=== PATIENT | female | born 1950 | race Caucasian/White ===

== ENCOUNTER 2017-04-03 13:00 | Outpatient (RCR) | payer MEDICAID, SELFPAY ==
[2017-03-20 00:53] VITALS: BP 121/69; PULSE 108; RESP 18; TEMP 36.7
[2017-04-03 12:56] VITALS: BP 141/77; PULSE 98; RESP 16; TEMP 36.3
--- NOTE | 2017-04-03 20:03 | PCM.WC.PN ---
(1) Spinal stenosis Status: Chronic Current Visit: No Qualifiers: Spinal region: lumbosacral Qualified Code(s): M48.07 - Spinal stenosis, lumbosacral region Code(s): M48.00 - Spinal stenosis, site unspecified (2) Pressure sore of left ischium, stage 4 Status: Chronic Current Visit: Yes Code(s): L89.324 - Pressure ulcer of left buttock, stage 4 (3) Diabetes mellitus Status: Chronic Current Visit: Yes Qualifiers: Diabetes mellitus type: type 2 Diabetes mellitus complication status: with unspecified complications Diabetes mellitus halfway insulin use: unspecified terminal operations manager insulin use status Qualified Code(s): E11.8 - Type 2 diabetes mellitus with unspecified complications Code(s): E11.9 - Type 2 diabetes mellitus without complications (4) Pressure ulcer of right buttock, stage 3 Status: Resolved Current Visit: Yes Code(s): L89.313 - Pressure ulcer of right buttock, stage 3 (5) Pressure ulcer of left buttock, stage 3 Status: Resolved Current Visit: Yes Code(s): L89.323 - Pressure ulcer of left buttock, stage 3 Type of Wound Date of Service: 04/03/17 Chief Complaint: Left ischial pressure sore, Stage IV. Spinal cord stenosis History of Wound: Patient is a 64-year-old female who has a chronic pressure ulcer of her left ischium. In May, patient was hospitalized for a swelling and redness of her right leg. This was evaluated for cellulitis. She was seen in consultation by infectious disease and plastic surgery. The patient was taken to surgery for an operative debridement of her chronic left ischeal ulcer, with placementof a wound VAC since discharge, and placement at [facility] in [place] for PT and IV antibiotics. She was abruptly released from the [facility] after only a few wks, before end of therapy. 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 Unfortunately she had no wound vac for nearly 3 wks until late August, forapplicationandphysical therapy and since then has not had good healing with persistent deep tracking of wound down the posteriolateral femur. She has decided to go with the conservative care route since she feels that her quality of life is more important than healing out the wound but had continued to keep the wound vac. The wound vac was discontinued by her insurance for failure to show improvement in the size of her wound. She has been being seen monthly for conservative/palliative care of her pressure ulcer of her left ischium. She has home health visiting weekly to assess her wound and monthly visits to the wound center. She has been tolerating this treatment well. Progress of Wound: Patient continues with conservative care management of left ischium - aquacel dressing to wound daily. No concerns for infection in this pressure ulcer at this time. The ulcers/wounds on her buttocks b/l that were stage 3 have healed. She denies increased pain or increased drainage. She continues to sit in her wheelchair frequently for long periods of time. - Physical Exam Vital Signs Temp Pulse Resp BP 97.4 F L 98 16 141/77 H 04/03/17 12:56 04/03/17 12:56 04/03/17 12:56 04/03/17 12:56 General: Alert, Oriented x3, Cooperative, No apparent distress HEENT: Atraumatic, Normocephalic Oral: Moist Mucosa Abdomen: Obese Skin: Ulcer/ Wound Wound Measurements and Assessment - Nurse 1 - General Ulcer Measurement Start: 04/03/17 12:56 Freq: Status: Active Protocol: Activity Type Activity Date Activity User E-Sign Co-Sign Detail Recorded Client Recorded Date Recorded By Document 04/03/17 12:56 [facility] [id number] 04/03/17 13:11 [facility] 04/03/17 12:56 Wound Center Nurse 1 [Ulcer Assessment Protocol: WC.WD.LOC] #6 L Ischial stage III -Combined with other wound No -Current Size (cm) - Length 0.1 -Current Size (cm) - Width 0.1 -Current Size (cm) - Depth 1.1 -Total Square Cm 0.01 -Photo Taken No -Epithelialization None Present -Tunneling No -Undermining/Tunneling No -Exudate Amt Small (1-33%) -Exudate Type Serosanguineous -Structure Exposed N/A -Texture (Amirah-wound Skin Appearance) Scarring -Moisture (Amirah-wound Skin Appearance Maceration ) -Color (Amirah-wound Skin Appearance) Palor -Temperature (Amirah-wound Skin No Abnormality Appearance) (Pt Warm) -Tenderness on Palpation (Amirah-wound No Skin Appearance) -Ulcer Cleansing Rinsed/ Irrigated with Saline -Foul Odor after Cleansing No -Anesthetic Used 4% Lidocaine Solution #5- RT GLUTEAL FOLD stage III -Combined with other wound No -Current Size (cm) - Length 0 -Current Size (cm) - Width 0 -Current Size (cm) - Depth 0 -Total Square Cm 0 #2 L buttocks stage IV -Combined with other wound No -Current Size (cm) - Length 0 -Current Size (cm) - Width 0 -Current Size (cm) - Depth 0 -Total Square Cm 0 WC - Nurse 2 - General Ulcer CM Notes Start: 04/03/17 12:56 Freq: Status: Active Protocol: Activity Type Activity Date Activity User E-Sign Co-Sign Detail Recorded Client Recorded Date Recorded By Document 04/03/17 14:04 [id number] 04/03/17 14:06 04/03/17 14:04 Wound Center Nurse 2 [Procedure/Treatment] #6 L Ischial stage III -Time 14:04 -Correct Patient Yes -Correct Side, Site, Position Yes -Correct Procedure Yes -Procedure Performed Yes -Post Debridement Size (cm) - Length 0 -Post Debridement Size (cm) - Width 0 -Post Debridement Size (cm) - Depth 0 -Total Square Cm 0 -Wound/Ulcer Outcome Healed- Epithelialized -Ulcer Cleansing Rinsed/ Irrigated with Saline -Foul Odor after Cleansing No -Bioengineered Tissue No -Cetacaine Bergholz No -Topical Lidocaine (%) 5 -Bleeding Controlled with Pressure -Treatment Response Procedure Tolerated Well #5- RT GLUTEAL FOLD stage III -Time 14:05 -Correct Patient Yes -Correct Side, Site, Position Yes -Correct Procedure Yes -Procedure Performed Yes -Post Debridement Size (cm) - Length 0 -Post Debridement Size (cm) - Width 0 -Post Debridement Size (cm) - Depth 0 -Total Square Cm 0 -Wound/Ulcer Outcome Healed- Epithelialized -Ulcer Cleansing Rinsed/ Irrigated with Saline -Foul Odor after Cleansing No -Bioengineered Tissue No -Cetacaine Bergholz No -Topical Lidocaine (%) 5 -Bleeding Controlled with Pressure -Treatment Response Procedure Tolerated Well #2 L buttocks stage IV -Time 14:05 -Correct Patient Yes -Correct Side, Site, Position Yes -Correct Procedure Yes -Procedure Performed Yes -Type of Procedure Debridement -Clinical Debridement Subcutaneous -Post Debridement Size (cm) - Length 0.6 -Post Debridement Size (cm) - Width 0.6 -Post Debridement Size (cm) - Depth 0.3 -Total Square Cm 0.36 -Wound/Ulcer Outcome Not Healed -Ulcer Cleansing Rinsed/ Irrigated with Saline -Foul Odor after Cleansing No -Bioengineered Tissue No -Cetacaine Bergholz No -Topical Lidocaine (%) 5 -Bleeding Controlled with Pressure -Treatment Response Procedure Tolerated Well [See Physician Procedure note for Specifics] Pain Scale: 0-10 Numeric [Pain] -Is Patient Pain Free? Yes Psych/Mental Status: Normal Affect, Appropriate Debridement Note Post-Debridement Measurements/Treatment WC - Nurse 2 - General Ulcer CM Notes Start: 04/03/17 12:56 Freq: Status: Active Protocol: Activity Type Activity Date Activity User E-Sign Co-Sign Detail Recorded Client Recorded Date Recorded By Document 04/03/17 14:04 [id number] 04/03/17 14:06 04/03/17 14:04 Wound Center Nurse 2 #6 L Ischial stage III -Time 14:04 -Correct Patient Yes -Correct Side, Site, Position Yes -Correct Procedure Yes -Procedure Performed Yes -Post Debridement Size (cm) - Length 0 -Post Debridement Size (cm) - Width 0 -Post Debridement Size (cm) - Depth 0 -Total Square Cm 0 -Wound/Ulcer Outcome Healed- Epithelialized -Ulcer Cleansing Rinsed/ Irrigated with Saline -Foul Odor after Cleansing No -Bioengineered Tissue No -Cetacaine Bergholz No -Topical Lidocaine (%) 5 -Bleeding Controlled with Pressure -Treatment Response Procedure Tolerated Well #5- RT GLUTEAL FOLD stage III -Time 14:05 -Correct Patient Yes -Correct Side, Site, Position Yes -Correct Procedure Yes -Procedure Performed Yes -Post Debridement Size (cm) - Length 0 -Post Debridement Size (cm) - Width 0 -Post Debridement Size (cm) - Depth 0 -Total Square Cm 0 -Wound/Ulcer Outcome Healed- Epithelialized -Ulcer Cleansing Rinsed/ Irrigated with Saline -Foul Odor after Cleansing No -Bioengineered Tissue No -Cetacaine Bergholz No -Topical Lidocaine (%) 5 -Bleeding Controlled with Pressure -Treatment Response Procedure Tolerated Well #2 L buttocks stage IV -Time 14:05 -Correct Patient Yes -Correct Side, Site, Position Yes -Correct Procedure Yes -Procedure Performed Yes -Type of Procedure Debridement -Clinical Debridement Subcutaneous -Post Debridement Size (cm) - Length 0.6 -Post Debridement Size (cm) - Width 0.6 -Post Debridement Size (cm) - Depth 0.3 -Total Square Cm 0.36 -Wound/Ulcer Outcome Not Healed -Ulcer Cleansing Rinsed/ Irrigated with Saline -Foul Odor after Cleansing No -Bioengineered Tissue No -Cetacaine Bergholz No -Topical Lidocaine (%) 5 -Bleeding Controlled with Pressure -Treatment Response Procedure Tolerated Well Pain Scale: 0-10 Numeric Is Patient Pain Free? Yes Wound debrided: left ischial stage III Laterality: Left No debridement was completed today - Additional Wound Wound debrided: right gluteal fold stage III Operative Diagnosis: No debridement was completed today - wound is healed - Additional Wound Wound debrided: left buttock stage IV Laterality: Left Wound Grade/Stage: Stage IV Type of Debridement: Excisional debridement Anesthesia Used: 4% Lidocaine Solution Depth: Down to and including healthy tissue, in the subcutaneous layer Percentage of wound debrided: 100 Instrument Used: 5mm curette Tissue Removed: yellow slough, devitalized tissue Severity: Fat Layer Exposed Amount of bleeding with debridement: Mild Bleeding Controlled with: Compression and gauze Patient tolerated procedure: Patient tolerated procedure well Assessment/Plan Active Problems Pressure sore of left ischium, stage 4 (Chronic) Diabetes mellitus (Chronic) Assessment: Pressure ulcer of the left buttock -non healing, despite several deep OR debridements, has not been willing to stay in bed and keep off of wound,and refuses to consider having a muscle flap since it would entail 6 wks in a bed in a F which she thinks would cause more deconditioning and require another few months to restrore her ambulation. wound is remaining free of infection and is not increasing in size but is stable. Right gluteal fold pressure ulcer stage III - healed. left Buttock/ischial ulcer stage III - healed Plan: Continue with aquacel daily wound packing to left buttocks and return to conservative /palliative treatment care with once monthly visits. Continue with conservative treatment of left buttock. Encouraged to increase protein intake to aid in wound healing and maintain good control of diabetes. Discussed offloading importance in wound healing. F/U in 4 weeks. Nursing notes reviewed.
--- NOTE | 2017-04-03 20:10 | PN.PCM_ITS ---
(1) Spinal stenosis Status: Chronic Current Visit: No Qualifiers: Spinal region: lumbosacral Qualified Code(s): M48.07 - Spinal stenosis, lumbosacral region Code(s): M48.00 - Spinal stenosis, site unspecified (2) Pressure sore of left ischium, stage 4 Status: Chronic Current Visit: Yes Code(s): L89.324 - Pressure ulcer of left buttock, stage 4 (3) Diabetes mellitus Status: Chronic Current Visit: Yes Qualifiers: Diabetes mellitus type: type 2 Diabetes mellitus complication status: with unspecified complications Diabetes mellitus penitentiary insulin use: unspecified medical doctor insulin use status Qualified Code(s): E11.8 - Type 2 diabetes mellitus with unspecified complications Code(s): E11.9 - Type 2 diabetes mellitus without complications (4) Pressure ulcer of right buttock, stage 3 Status: Resolved Current Visit: Yes Code(s): L89.313 - Pressure ulcer of right buttock, stage 3 (5) Pressure ulcer of left buttock, stage 3 Status: Resolved Current Visit: Yes Code(s): L89.323 - Pressure ulcer of left buttock, stage 3 Type of Wound Date of Service: 04/03/17 Chief Complaint: Left ischial pressure sore, Stage IV. Spinal cord stenosis History of Wound: Patient is a 64-year-old female who has a chronic pressure ulcer of her left ischium. In May, patient was hospitalized for a swelling and redness of her right leg. This was evaluated for cellulitis. She was seen in consultation by infectious disease and plastic surgery. The patient was taken to surgery for an operative debridement of her chronic left ischeal ulcer, with placementof a wound VAC since discharge, and placement at [facility] in [place] for PT and IV antibiotics. She was abruptly released from the [facility] after only a few wks, before end of therapy. 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 Unfortunately she had no wound vac for nearly 3 wks until late August , forapplicationandphysical therapy and since then has not had good healing with persistent deep tracking of wound down the posteriolateral femur. She has decided to go with the conservative care route since she feels that her quality of life is more important than healing out the wound but had continued to keep the wound vac. The wound vac was discontinued by her insurance for failure to show improvement in the size of her wound. She has been being seen monthly for conservative/palliative care of her pressure ulcer of her left ischium. She has home health visiting weekly to assess her wound and monthly visits to the wound center. She has been tolerating this treatment well. Progress of Wound: Patient continues with conservative care management of left ischium - aquacel dressing to wound daily. No concerns for infection in this pressure ulcer at this time. The ulcers/wounds on her buttocks b/l that were stage 3 have healed. She denies increased pain or increased drainage. She continues to sit in her wheelchair frequently for long periods of time. - Physical Exam Vital Signs Temp Pulse Resp BP 97.4 F L 98 16 141/77 H 04/03/17 12:56 04/03/17 12:56 04/03/17 12:56 04/03/17 12:56 General: Alert, Oriented x3, Cooperative, No apparent distress HEENT: Atraumatic, Normocephalic Oral: Moist Mucosa Abdomen: Obese Skin: Ulcer/ Wound Wound Measurements and Assessment - Nurse 1 - General Ulcer Measurement Start: 04/03/17 12:56 Freq: Status: Active Protocol: Activity Type Activity Date Activity User E-Sign Co-Sign Detail Recorded Client Recorded Date Recorded By Document 04/03/17 12:56 [facility] [id number] 04/03/17 13:11 [facility] 04/03/17 12:56 Wound Center Nurse 1 [Ulcer Assessment Protocol: WC.WD.LOC] #6 L Ischial stage III -Combined with other wound No -Current Size (cm) - Length 0.1 -Current Size (cm) - Width 0.1 -Current Size (cm) - Depth 1.1 -Total Square Cm 0.01 -Photo Taken No -Epithelialization None Present -Tunneling No -Undermining/Tunneling No -Exudate Amt Small (1-33%) -Exudate Type Serosanguineous -Structure Exposed N/A -Texture (Amirah-wound Skin Appearance) Scarring -Moisture (Amirah-wound Skin Appearance Maceration ) -Color (Amirah-wound Skin Appearance) Palor -Temperature (Amirah-wound Skin No Abnormality Appearance) (Pt Warm) -Tenderness on Palpation (Amirah-wound No Skin Appearance) -Ulcer Cleansing Rinsed/ Irrigated with Saline -Foul Odor after Cleansing No -Anesthetic Used 4% Lidocaine Solution #5- RT GLUTEAL FOLD stage III -Combined with other wound No -Current Size (cm) - Length 0 -Current Size (cm) - Width 0 -Current Size (cm) - Depth 0 -Total Square Cm 0 #2 L buttocks stage IV -Combined with other wound No -Current Size (cm) - Length 0 -Current Size (cm) - Width 0 -Current Size (cm) - Depth 0 -Total Square Cm 0 WC - Nurse 2 - General Ulcer CM Notes Start: 04/03/17 12:56 Freq: Status: Active Protocol: Activity Type Activity Date Activity User E-Sign Co-Sign Detail Recorded Client Recorded Date Recorded By Document 04/03/17 14:04 [id number] 04/03/17 14:06 04/03/17 14:04 Wound Center Nurse 2 [Procedure/Treatment] #6 L Ischial stage III -Time 14:04 -Correct Patient Yes -Correct Side, Site, Position Yes -Correct Procedure Yes -Procedure Performed Yes -Post Debridement Size (cm) - Length 0 -Post Debridement Size (cm) - Width 0 -Post Debridement Size (cm) - Depth 0 -Total Square Cm 0 -Wound/Ulcer Outcome Healed- Epithelialized -Ulcer Cleansing Rinsed/ Irrigated with Saline -Foul Odor after Cleansing No -Bioengineered Tissue No -Cetacaine Haswell No -Topical Lidocaine (%) 5 -Bleeding Controlled with Pressure -Treatment Response Procedure Tolerated Well #5- RT GLUTEAL FOLD stage III -Time 14:05 -Correct Patient Yes -Correct Side, Site, Position Yes -Correct Procedure Yes -Procedure Performed Yes -Post Debridement Size (cm) - Length 0 -Post Debridement Size (cm) - Width 0 -Post Debridement Size (cm) - Depth 0 -Total Square Cm 0 -Wound/Ulcer Outcome Healed- Epithelialized -Ulcer Cleansing Rinsed/ Irrigated with Saline -Foul Odor after Cleansing No -Bioengineered Tissue No -Cetacaine Haswell No -Topical Lidocaine (%) 5 -Bleeding Controlled with Pressure -Treatment Response Procedure Tolerated Well #2 L buttocks stage IV -Time 14:05 -Correct Patient Yes -Correct Side, Site, Position Yes -Correct Procedure Yes -Procedure Performed Yes -Type of Procedure Debridement -Clinical Debridement Subcutaneous -Post Debridement Size (cm) - Length 0.6 -Post Debridement Size (cm) - Width 0.6 -Post Debridement Size (cm) - Depth 0.3 -Total Square Cm 0.36 -Wound/Ulcer Outcome Not Healed -Ulcer Cleansing Rinsed/ Irrigated with Saline -Foul Odor after Cleansing No -Bioengineered Tissue No -Cetacaine Haswell No -Topical Lidocaine (%) 5 -Bleeding Controlled with Pressure -Treatment Response Procedure Tolerated Well [See Physician Procedure note for Specifics] Pain Scale: 0-10 Numeric [Pain] -Is Patient Pain Free? Yes Psych/Mental Status: Normal Affect, Appropriate Debridement Note Post-Debridement Measurements/Treatment WC - Nurse 2 - General Ulcer CM Notes Start: 04/03/17 12:56 Freq: Status: Active Protocol: Activity Type Activity Date Activity User E-Sign Co-Sign Detail Recorded Client Recorded Date Recorded By Document 04/03/17 14:04 [id number] 04/03/17 14:06 04/03/17 14:04 Wound Center Nurse 2 #6 L Ischial stage III -Time 14:04 -Correct Patient Yes -Correct Side, Site, Position Yes -Correct Procedure Yes -Procedure Performed Yes -Post Debridement Size (cm) - Length 0 -Post Debridement Size (cm) - Width 0 -Post Debridement Size (cm) - Depth 0 -Total Square Cm 0 -Wound/Ulcer Outcome Healed- Epithelialized -Ulcer Cleansing Rinsed/ Irrigated with Saline -Foul Odor after Cleansing No -Bioengineered Tissue No -Cetacaine Haswell No -Topical Lidocaine (%) 5 -Bleeding Controlled with Pressure -Treatment Response Procedure Tolerated Well #5- RT GLUTEAL FOLD stage III -Time 14:05 -Correct Patient Yes -Correct Side, Site, Position Yes -Correct Procedure Yes -Procedure Performed Yes -Post Debridement Size (cm) - Length 0 -Post Debridement Size (cm) - Width 0 -Post Debridement Size (cm) - Depth 0 -Total Square Cm 0 -Wound/Ulcer Outcome Healed- Epithelialized -Ulcer Cleansing Rinsed/ Irrigated with Saline -Foul Odor after Cleansing No -Bioengineered Tissue No -Cetacaine Haswell No -Topical Lidocaine (%) 5 -Bleeding Controlled with Pressure -Treatment Response Procedure Tolerated Well #2 L buttocks stage IV -Time 14:05 -Correct Patient Yes -Correct Side, Site, Position Yes -Correct Procedure Yes -Procedure Performed Yes -Type of Procedure Debridement -Clinical Debridement Subcutaneous -Post Debridement Size (cm) - Length 0.6 -Post Debridement Size (cm) - Width 0.6 -Post Debridement Size (cm) - Depth 0.3 -Total Square Cm 0.36 -Wound/Ulcer Outcome Not Healed -Ulcer Cleansing Rinsed/ Irrigated with Saline -Foul Odor after Cleansing No -Bioengineered Tissue No -Cetacaine Haswell No -Topical Lidocaine (%) 5 -Bleeding Controlled with Pressure -Treatment Response Procedure Tolerated Well Pain Scale: 0-10 Numeric Is Patient Pain Free? Yes Wound debrided: left ischial stage III Laterality: Left No debridement was completed today - Additional Wound Wound debrided: right gluteal fold stage III Operative Diagnosis: No debridement was completed today - wound is healed - Additional Wound Wound debrided: left buttock stage IV Laterality: Left Wound Grade/Stage: Stage IV Type of Debridement: Excisional debridement Anesthesia Used: 4% Lidocaine Solution Depth: Down to and including healthy tissue, in the subcutaneous layer Percentage of wound debrided: 100 Instrument Used: 5mm curette Tissue Removed: yellow slough, devitalized tissue Severity: Fat Layer Exposed Amount of bleeding with debridement: Mild Bleeding Controlled with: Compression and gauze Patient tolerated procedure: Patient tolerated procedure well Assessment/Plan Active Problems Pressure sore of left ischium, stage 4 (Chronic) Diabetes mellitus (Chronic) Assessment: Pressure ulcer of the left buttock -non healing, despite several deep OR debridements, has not been willing to stay in bed and keep off of wound, and refuses to consider having a muscle flap since it would entail 6 wks in a bed in a F which she thinks would cause more deconditioning and require another few months to restrore her ambulation. wound is remaining free of infection and is not increasing in size but is stable. Right gluteal fold pressure ulcer stage III - healed. left Buttock/ischial ulcer stage III - healed Plan: Continue with aquacel daily wound packing to left buttocks and return to conservative /palliative treatment care with once monthly visits. Continue with conservative treatment of left buttock. Encouraged to increase protein intake to aid in wound healing and maintain good control of diabetes. Discussed offloading importance in wound healing. F/U in 4 weeks. Nursing notes reviewed.
== END 2017-04-19 23:59 ==
LOC: WC 13:00
PROVIDERS: Family Provider Family Medicine; PCP Family Medicine; Visit Provider Family Medicine
DX: E11.622 Type 2 diabetes mellitus with other skin ulcer (principal); M48.07 Spinal stenosis, lumbosacral region; L89.224 Pressure ulcer of left hip, stage 4
CPT/HCPCS: 11042

== ENCOUNTER 2017-05-15 13:45 | Outpatient (RCR) | payer MEDICAID, SELFPAY ==
[2017-04-20 00:42] VITALS: BP 141/77; PULSE 98; RESP 16; TEMP 36.3
[2017-05-08 13:35] VITALS: RESP 18; TEMP 36.6
--- NOTE | 2017-05-08 18:01 | PCM.WC.HP ---
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 Spinal cord stenosis History of Wound: Patient is a 64-year-old female who has a chronic pressure ulcer of her left ischium. Patient was initially hospitalized for a swelling and redness of her right leg approximately 2014. This was evaluated for cellulitis. She was seen in consultation by infectious disease and plastic surgery. The patient was taken to surgery for an operative debridement of her chronic left ischial ulcer, underwent wound vac treatment and IV antibiotics. She was abruptly released from the F after only a few wks, before end of therapy. She had finished her IV antibiotics for Grp A strep osteomyelitis at home and continued with PT at home as well. She has decided to go with the conservative care route since she feels that her quality of life is more important than healing out the wound but had continued to keep the wound vac. The wound vac was discontinued by her insurance for failure to show improvement in the size of her wound. She has been being seen monthly for conservative/palliative care of her pressure ulcer of her left ischium. She has home health visiting weekly to assess her wound and monthly visits to the wound center. She has been tolerating this treatment well. She has recently started getting pressure ulcers of her right buttocks. January 2017, she underwent treatment after developing pressure ulcers which occurred from urinary incontinence issues associated with a chronic UTI and leakage of her catheter. She developed another pressure ulcer of her right buttock on or around April 20, 2017 and presents for treatment of this area as well as continued treatment of her left ischial pressure ulcer. She has been using Rain to the right buttock and continues to use Aquacel to the left ischium/buttock. Denies fever, chills or increased pain. 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 significance to followup Pressure sore of left ischium, stage 4 (Chronic) chronic osteomyelitis left ischial area (Chronic) Arthritis (Chronic) Back pain (Chronic) Malnutrition (Chronic) Diabetic neuropathy, type II diabetes mellitus (Chronic) Diabetes mellitus (Chronic) Surgical History: - - Surgery for rectal prolapse with anterior resection and rectopexy at [facility] in 2008 and back surgery 1979. Colostomy was November 2012. She had blood transfusions in October 2012 at [facility] for blood loss anemia. excision left ischial pressure sore with partial ostectomy for osteomyelitis and excision right ischial pressure sore and excision left lateral ankle pressure sore with partial ostectomy for osteomyelitis in 08/01. Allergies/Adverse Reactions: Allergies No Known Allergies Allergy (Verified 08/08/14 15:45) Home Medications: Ambulatory Orders Medication Instructions Recorded Allopurinol [Zyloprim] 100 mg PO DAILYCM 07/05/14 Cefadroxil [Duracef] 500 mg PO BID 07/05/14 Ferrous Gluconate 325 mg PO BIDCM 07/05/14 Latanoprost 0.005% [Xalatan 1 drop EACH EYE QHS 07/05/14 Opthalmic] Losartan Potassium [Cozaar] 25 mg PO DAILY 07/05/14 Magnesium Oxide [Mag-Ox 400] 400 mg PO TID 07/05/14 Metformin HCl [Glucophage] 500 mg PO BIDCM 07/05/14 Multivitamins,Therapeutic 1 tablet PO DAILY 07/05/14 [Multivitamin] Nut.tx.gluc Intol,Lf,Soy/Fiber 237 ml PO BID 07/05/14 [Boost Glucose Control Liquid] Simvastatin [Zocor] 10 mg PO QHS 07/05/14 Timolol Maleate [Timoptic-XE 0.5%] 1 drop EACH EYE DAILY 07/05/14 Acetaminophen [Tylenol Tablet] 650 mg PO Q6H PRN PRN #0 tablet 07/11/14 Diazepam [Valium] 4 mg PO TID PRN PRN #60 tablet 07/11/14 Oxycodone [Oxyir] 5 - 10 mg PO Q4H PRN PRN #60 tablet 07/11/14 Ceftriaxone [Rocephin] 1 gm IV Q24 #35 bag 07/12/14 Furosemide [Lasix] 40 mg PO DAILY 06/29/15 Potassium Chloride [K-Dur] 40 meq PO DAILY 06/29/15 - Family History Maternal Diabetes, Hypertension Paternal Diabetes, Hypertension Lives: Alone Smoking Status: Never smoker Tobacco Use: Non-smoker Alcohol: None Drugs: None Review of Systems Constitutional: Denies: Chills, Fever, Weight Change Eyes: Denies: Pain, Vision Change HEENT: Denies: Difficulty Hearing, Difficulty Swallowing, Sinus Congestion Cardiovascular: Denies: Chest Pain, Palpitations Respiratory: Denies: Cough, Shortness of Breath Gastrointestinal: Denies: Diarrhea, Nausea, Vomiting Genitourinary: Denies: Dysuria, Hematuria Musculoskeletal: Reports: Back Pain, Leg Pain Skin: Reports: Wounds Neurological: Reports: Numbness, Tingling, - - weakness, unable to walk Endocrine: Denies: Heat/ Cold Intolerance, Polydipsia, Polyuria Hematologic/ Lymphatic: Denies: Easy Bruising, Easy Bleeding - Physical Exam Vital Signs Temp Pulse Resp BP 98 F 98 18 141/77 H 05/08/17 13:35 04/20/17 00:42 05/08/17 13:35 04/20/17 00:42 General: Alert, Oriented x3, Cooperative, No apparent distress HEENT: Atraumatic, Normocephalic Oral: Moist Mucosa Lungs: Clear to auscultation Cardiovascular: Regular rate Abdomen: Obese Extremities: No edema Skin: Ulcer/ Wound Wound Measurements and Assessment WC - Nurse 1 - General Ulcer Measurement Start: 05/08/17 13:33 Freq: Status: Active Protocol: Activity Type Activity Date Activity User E-Sign Co-Sign Detail Recorded Client Recorded Date Recorded By Document 05/08/17 13:35 [facility] [id number] 05/08/17 13:51 [facility] 05/08/17 13:35 Wound Center Nurse 1 [Ulcer Assessment Protocol: WC.WD.LOC] #7- Stage III pressure ulcer RT GLUTEAL FOLD -Combined with other wound No -Current Size (cm) - Length 4 -Current Size (cm) - Width 3 -Current Size (cm) - Depth 0.1 -Total Square Cm 12 -Date of Last Picture (Recall this 05/08/17 field) -Photo Taken Yes -Epithelialization None Present -Tunneling No -Undermining/Tunneling No -Exudate Amt Medium (34-66%) -Exudate Type Serosanguineous -Wound Margin Distinct, Outline Attached -Granulation Amt Small (1-33%) -Granulation Quality Red -Slough/Fibrin Yes -Necrosis Amt Large (67-100%) -Necrotic Tissue Type Adherent Slough -Structure Exposed N/A -Texture (Amirah-wound Skin Appearance) Scarring -Moisture (Amirah-wound Skin Appearance Assessed ) -Color (Amirah-wound Skin Appearance) Erythema -Temperature (Amirah-wound Skin No Abnormality Appearance) (Pt Warm) -Tenderness on Palpation (Amirah-wound No Skin Appearance) -Ulcer Cleansing Rinsed/ Irrigated with Saline -Foul Odor after Cleansing No -Anesthetic Used 4% Lidocaine Solution #2 L buttocks stage IV -Combined with other wound No -Current Size (cm) - Length 0.6 -Current Size (cm) - Width 0.1 -Current Size (cm) - Depth 1.1 -Total Square Cm 0.06 -Epithelialization None Present -Tunneling No -Undermining/Tunneling No -Exudate Amt Small (1-33%) -Exudate Type Serosanguineous -Wound Margin Thickened -Moisture (Amirah-wound Skin Appearance Maceration ) -Color (Amirah-wound Skin Appearance) Palor -Temperature (Amirah-wound Skin No Abnormality Appearance) (Pt Warm) -Tenderness on Palpation (Amirah-wound No Skin Appearance) -Ulcer Cleansing Rinsed/ Irrigated with Saline -Foul Odor after Cleansing No -Anesthetic Used 4% Lidocaine Solution - Nurse 2 - General Ulcer CM Notes Start: 05/08/17 13:33 Freq: Status: Active Protocol: Activity Type Activity Date Activity User E-Sign Co-Sign Detail Recorded Client Recorded Date Recorded By Document 05/08/17 14:34 [id number] 05/08/17 14:42 TM 05/08/17 14:34 Wound Center Nurse 2 [Procedure/Treatment] #7- Stage III pressure ulcer RT GLUTEAL FOLD -Time 14:34 -Correct Patient Yes -Correct Side, Site, Position Yes -Correct Procedure Yes -Procedure Performed Yes -Type of Procedure Debridement -Clinical Debridement Subcutaneous -Post Debridement Size (cm) - Length 4.3 -Post Debridement Size (cm) - Width 3.0 -Post Debridement Size (cm) - Depth 0.1 -Total Square Cm 12.90 -Wound/Ulcer Outcome Not Healed -Ulcer Cleansing Rinsed/ Irrigated with Saline -Foul Odor after Cleansing No -Bioengineered Tissue No -Cetacaine [place] No -Topical Lidocaine (%) 5 -Bleeding Controlled with Pressure -Treatment Response Procedure Tolerated Well #2 L buttocks stage IV -Time 14:35 -Correct Patient Yes -Correct Side, Site, Position Yes -Correct Procedure Yes -Procedure Performed Yes -Type of Procedure Debridement -Clinical Debridement Subcutaneous -Post Debridement Size (cm) - Length 1.0 -Post Debridement Size (cm) - Width 0.3 -Post Debridement Size (cm) - Depth 0.5 -Total Square Cm 0.30 -Wound/Ulcer Outcome Not Healed -Ulcer Cleansing Rinsed/ Irrigated with Saline -Foul Odor after Cleansing No -Bioengineered Tissue No -Cetacaine [place] No -Topical Lidocaine (%) 5 -Bleeding Controlled with Pressure -Treatment Response Procedure Tolerated Well [See Physician Procedure note for Specifics] Pain Scale: 0-10 Numeric [Pain] -Is Patient Pain Free? Yes Neurological: Unsteady Gait Psych/Mental Status: Normal Affect, Appropriate Debridement Note Post-Debridement Measurements/Treatment WC - Nurse 2 - General Ulcer CM Notes Start: 05/08/17 13:33 Freq: Status: Active Protocol: Activity Type Activity Date Activity User E-Sign Co-Sign Detail Recorded Client Recorded Date Recorded By Document 05/08/17 14:34 [id number] 05/08/17 14:42 05/08/17 14:34 Wound Center Nurse 2 #7- Stage III pressure ulcer RT GLUTEAL FOLD -Time 14:34 -Correct Patient Yes -Correct Side, Site, Position Yes -Correct Procedure Yes -Procedure Performed Yes -Type of Procedure Debridement -Clinical Debridement Subcutaneous -Post Debridement Size (cm) - Length 4.3 -Post Debridement Size (cm) - Width 3.0 -Post Debridement Size (cm) - Depth 0.1 -Total Square Cm 12.90 -Wound/Ulcer Outcome Not Healed -Ulcer Cleansing Rinsed/ Irrigated with Saline -Foul Odor after Cleansing No -Bioengineered Tissue No -Cetacaine [place] No -Topical Lidocaine (%) 5 -Bleeding Controlled with Pressure -Treatment Response Procedure Tolerated Well #2 L buttocks stage IV -Time 14:35 -Correct Patient Yes -Correct Side, Site, Position Yes -Correct Procedure Yes -Procedure Performed Yes -Type of Procedure Debridement -Clinical Debridement Subcutaneous -Post Debridement Size (cm) - Length 1.0 -Post Debridement Size (cm) - Width 0.3 -Post Debridement Size (cm) - Depth 0.5 -Total Square Cm 0.30 -Wound/Ulcer Outcome Not Healed -Ulcer Cleansing Rinsed/ Irrigated with Saline -Foul Odor after Cleansing No -Bioengineered Tissue No -Cetacaine [place] No -Topical Lidocaine (%) 5 -Bleeding Controlled with Pressure -Treatment Response Procedure Tolerated Well Pain Scale: 0-10 Numeric Is Patient Pain Free? Yes Wound debrided: stage III ulcer right gluteal fold Laterality: Right Wound Grade/Stage: Stage III Type of Debridement: Excisional debridement Anesthesia Used: 5% Lidocaine Gel Depth: Down to and including healthy tissue, in the subcutaneous layer Percentage of wound debrided: 100 Instrument Used: 5mm curette, #15 blade Tissue Removed: yellow slough, devitalized tissue Severity: Fat Layer Exposed Amount of bleeding with debridement: Mild Bleeding Controlled with: Compression and gauze Patient tolerated procedure well - Additional Wound Wound debrided: left buttocks stage IV Laterality: Left Wound Grade/Stage: Stage IV Type of Debridement: Excisional debridement Anesthesia Used: 4% Lidocaine Solution Depth: Down to and including healthy tissue, in the subcutaneous layer Percentage of wound debrided: 100 Instrument Used: 3mm curette Tissue Removed: yellow slough, devitalized tissue Severity: Fat Layer Exposed Amount of bleeding with debridement: Mild Bleeding Controlled with: Compression and gauze Patient tolerated procedure: Patient tolerated procedure well Assessment/Plan Active Problems Spinal stenosis (Chronic) Physical deconditioning (Chronic) Pressure sore of left ischium, stage 4 (Chronic) Diabetic neuropathy, type II diabetes mellitus (Chronic) Assessment: Pressure ulcer of the left buttock -non healing, despite several deep OR debridements, has not been willing to stay in bed and keep off of wound,and refuses to consider having a muscle flap since it would entail 6 wks in a bed in a ECF which she thinks would cause more deconditioning and require another few months to restrore her ambulation. wound is remaining free of infection and is not increasing in size but is stable. Right gluteal fold pressure ulcer stage III - healed. left Buttock/ischial ulcer stage III - healed Plan: Right buttock wound debrided as well as left buttock/ischium. Right buttock/gluteal fold will be treated with Aquacel Ag and a wound culture was taken today. She was started on Augmentin and will adjust antibiotic as necessary. Continue with aquacel daily wound packing to left buttocks. Encouraged to increase protein intake to aid in wound healing and maintain good control of diabetes. Discussed offloading importance in wound healing. F/U in 1 week. Nursing notes reviewed.
--- NOTE | 2017-05-08 18:11 | HP.PCM_ITS ---
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 Spinal cord stenosis History of Wound: Patient is a 64-year-old female who has a chronic pressure ulcer of her left ischium. Patient was initially hospitalized for a swelling and redness of her right leg approximately 2014. This was evaluated for cellulitis. She was seen in consultation by infectious disease and plastic surgery. The patient was taken to surgery for an operative debridement of her chronic left ischial ulcer, underwent wound vac treatment and IV antibiotics. She was abruptly released from the F after only a few wks, before end of therapy. She had finished her IV antibiotics for Grp A strep osteomyelitis at home and continued with PT at home as well. She has decided to go with the conservative care route since she feels that her quality of life is more important than healing out the wound but had continued to keep the wound vac. The wound vac was discontinued by her insurance for failure to show improvement in the size of her wound. She has been being seen monthly for conservative/ palliative care of her pressure ulcer of her left ischium. She has home health visiting weekly to assess her wound and monthly visits to the wound center. She has been tolerating this treatment well. She has recently started getting pressure ulcers of her right buttocks. January 2017, she underwent treatment after developing pressure ulcers which occurred from urinary incontinence issues associated with a chronic UTI and leakage of her catheter. She developed another pressure ulcer of her right buttock on or around April 20, 2017 and presents for treatment of this area as well as continued treatment of her left ischial pressure ulcer. She has been using Rain to the right buttock and continues to use Aquacel to the left ischium/buttock. Denies fever, chills or increased pain. 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 significance to followup Pressure sore of left ischium, stage 4 (Chronic) chronic osteomyelitis left ischial area (Chronic) Arthritis (Chronic) Back pain (Chronic) Malnutrition (Chronic) Diabetic neuropathy, type II diabetes mellitus (Chronic) Diabetes mellitus (Chronic) Surgical History: - - Surgery for rectal prolapse with anterior resection and rectopexy at [facility] in 2008 and back surgery 1979. Colostomy was November 2012. She had blood transfusions in October 2012 at [facility] for blood loss anemia. excision left ischial pressure sore with partial ostectomy for osteomyelitis and excision right ischial pressure sore and excision left lateral ankle pressure sore with partial ostectomy for osteomyelitis in 08/01. Allergies/Adverse Reactions: Allergies No Known Allergies Allergy (Verified 08/08/14 15:45) Home Medications: Ambulatory Orders Medication Instructions Recorded Allopurinol [Zyloprim] 100 mg PO DAILYCM 07/05/14 Cefadroxil [Duracef] 500 mg PO BID 07/05/14 Ferrous Gluconate 325 mg PO BIDCM 07/05/14 Latanoprost 0.005% [Xalatan 1 drop EACH EYE QHS 07/05/14 Opthalmic] Losartan Potassium [Cozaar] 25 mg PO DAILY 07/05/14 Magnesium Oxide [Mag-Ox 400] 400 mg PO TID 07/05/14 Metformin HCl [Glucophage] 500 mg PO BIDCM 07/05/14 Multivitamins,Therapeutic 1 tablet PO DAILY 07/05/14 [Multivitamin] Nut.tx.gluc Intol,Lf,Soy/Fiber 237 ml PO BID 07/05/14 [Boost Glucose Control Liquid] Simvastatin [Zocor] 10 mg PO QHS 07/05/14 Timolol Maleate [Timoptic-XE 0.5%] 1 drop EACH EYE DAILY 07/05/14 Acetaminophen [Tylenol Tablet] 650 mg PO Q6H PRN PRN #0 tablet 07/11/14 Diazepam [Valium] 4 mg PO TID PRN PRN #60 tablet 07/11/14 Oxycodone [Oxyir] 5 - 10 mg PO Q4H PRN PRN #60 tablet 07/11/14 Ceftriaxone [Rocephin] 1 gm IV Q24 #35 bag 07/12/14 Furosemide [Lasix] 40 mg PO DAILY 06/29/15 Potassium Chloride [K-Dur] 40 meq PO DAILY 06/29/15 - Family History Maternal Diabetes, Hypertension Paternal Diabetes, Hypertension Lives: Alone Smoking Status: Never smoker Tobacco Use: Non-smoker Alcohol: None Drugs: None Review of Systems Constitutional: Denies: Chills, Fever, Weight Change Eyes: Denies: Pain, Vision Change HEENT: Denies: Difficulty Hearing, Difficulty Swallowing, Sinus Congestion Cardiovascular: Denies: Chest Pain, Palpitations Respiratory: Denies: Cough, Shortness of Breath Gastrointestinal: Denies: Diarrhea, Nausea, Vomiting Genitourinary: Denies: Dysuria, Hematuria Musculoskeletal: Reports: Back Pain, Leg Pain Skin: Reports: Wounds Neurological: Reports: Numbness, Tingling, - - weakness, unable to walk Endocrine: Denies: Heat/ Cold Intolerance, Polydipsia, Polyuria Hematologic/ Lymphatic: Denies: Easy Bruising, Easy Bleeding - Physical Exam Vital Signs Temp Pulse Resp BP 98 F 98 18 141/77 H 05/08/17 13:35 04/20/17 00:42 05/08/17 13:35 04/20/17 00:42 General: Alert, Oriented x3, Cooperative, No apparent distress HEENT: Atraumatic, Normocephalic Oral: Moist Mucosa Lungs: Clear to auscultation Cardiovascular: Regular rate Abdomen: Obese Extremities: No edema Skin: Ulcer/ Wound Wound Measurements and Assessment WC - Nurse 1 - General Ulcer Measurement Start: 05/08/17 13:33 Freq: Status: Active Protocol: Activity Type Activity Date Activity User E-Sign Co-Sign Detail Recorded Client Recorded Date Recorded By Document 05/08/17 13:[address] [facility] [id number] 05/08/17 13:[address] [facility] 05/08/17 13:35 Wound Center Nurse 1 [Ulcer Assessment Protocol: WC.WD.LOC] #7- Stage III pressure ulcer RT GLUTEAL FOLD -Combined with other wound No -Current Size (cm) - Length 4 -Current Size (cm) - Width 3 -Current Size (cm) - Depth 0.1 -Total Square Cm 12 -Date of Last Picture (Recall this 05/08/17 field) -Photo Taken Yes -Epithelialization None Present -Tunneling No -Undermining/Tunneling No -Exudate Amt Medium (34-66%) -Exudate Type Serosanguineous -Wound Margin Distinct, Outline Attached -Granulation Amt Small (1-33%) -Granulation Quality Red -Slough/Fibrin Yes -Necrosis Amt Large (67-100%) -Necrotic Tissue Type Adherent Slough -Structure Exposed N/A -Texture (Amirah-wound Skin Appearance) Scarring -Moisture (Amirah-wound Skin Appearance Assessed ) -Color (Amirah-wound Skin Appearance) Erythema -Temperature (Amirah-wound Skin No Abnormality Appearance) (Pt Warm) -Tenderness on Palpation (Amirah-wound No Skin Appearance) -Ulcer Cleansing Rinsed/ Irrigated with Saline -Foul Odor after Cleansing No -Anesthetic Used 4% Lidocaine Solution #2 L buttocks stage IV -Combined with other wound No -Current Size (cm) - Length 0.6 -Current Size (cm) - Width 0.1 -Current Size (cm) - Depth 1.1 -Total Square Cm 0.06 -Epithelialization None Present -Tunneling No -Undermining/Tunneling No -Exudate Amt Small (1-33%) -Exudate Type Serosanguineous -Wound Margin Thickened -Moisture (Amirah-wound Skin Appearance Maceration ) -Color (Amirah-wound Skin Appearance) Palor -Temperature (Amirah-wound Skin No Abnormality Appearance) (Pt Warm) -Tenderness on Palpation (Amirah-wound No Skin Appearance) -Ulcer Cleansing Rinsed/ Irrigated with Saline -Foul Odor after Cleansing No -Anesthetic Used 4% Lidocaine Solution - Nurse 2 - General Ulcer CM Notes Start: 05/08/17 13:33 Freq: Status: Active Protocol: Activity Type Activity Date Activity User E-Sign Co-Sign Detail Recorded Client Recorded Date Recorded By Document 05/08/17 14:34 [id number] 05/08/17 14:42 TM 05/08/17 14:34 Wound Center Nurse 2 [Procedure/Treatment] #7- Stage III pressure ulcer RT GLUTEAL FOLD -Time 14:34 -Correct Patient Yes -Correct Side, Site, Position Yes -Correct Procedure Yes -Procedure Performed Yes -Type of Procedure Debridement -Clinical Debridement Subcutaneous -Post Debridement Size (cm) - Length 4.3 -Post Debridement Size (cm) - Width 3.0 -Post Debridement Size (cm) - Depth 0.1 -Total Square Cm 12.90 -Wound/Ulcer Outcome Not Healed -Ulcer Cleansing Rinsed/ Irrigated with Saline -Foul Odor after Cleansing No -Bioengineered Tissue No -Cetacaine Hooven No -Topical Lidocaine (%) 5 -Bleeding Controlled with Pressure -Treatment Response Procedure Tolerated Well #2 L buttocks stage IV -Time 14:35 -Correct Patient Yes -Correct Side, Site, Position Yes -Correct Procedure Yes -Procedure Performed Yes -Type of Procedure Debridement -Clinical Debridement Subcutaneous -Post Debridement Size (cm) - Length 1.0 -Post Debridement Size (cm) - Width 0.3 -Post Debridement Size (cm) - Depth 0.5 -Total Square Cm 0.30 -Wound/Ulcer Outcome Not Healed -Ulcer Cleansing Rinsed/ Irrigated with Saline -Foul Odor after Cleansing No -Bioengineered Tissue No -Cetacaine Hooven No -Topical Lidocaine (%) 5 -Bleeding Controlled with Pressure -Treatment Response Procedure Tolerated Well [See Physician Procedure note for Specifics] Pain Scale: 0-10 Numeric [Pain] -Is Patient Pain Free? Yes Neurological: Unsteady Gait Psych/Mental Status: Normal Affect, Appropriate Debridement Note Post-Debridement Measurements/Treatment WC - Nurse 2 - General Ulcer CM Notes Start: 05/08/17 13:33 Freq: Status: Active Protocol: Activity Type Activity Date Activity User E-Sign Co-Sign Detail Recorded Client Recorded Date Recorded By Document 05/08/17 14:34 [id number] 05/08/17 14:42 05/08/17 14:34 Wound Center Nurse 2 #7- Stage III pressure ulcer RT GLUTEAL FOLD -Time 14:34 -Correct Patient Yes -Correct Side, Site, Position Yes -Correct Procedure Yes -Procedure Performed Yes -Type of Procedure Debridement -Clinical Debridement Subcutaneous -Post Debridement Size (cm) - Length 4.3 -Post Debridement Size (cm) - Width 3.0 -Post Debridement Size (cm) - Depth 0.1 -Total Square Cm 12.90 -Wound/Ulcer Outcome Not Healed -Ulcer Cleansing Rinsed/ Irrigated with Saline -Foul Odor after Cleansing No -Bioengineered Tissue No -Cetacaine Hooven No -Topical Lidocaine (%) 5 -Bleeding Controlled with Pressure -Treatment Response Procedure Tolerated Well #2 L buttocks stage IV -Time 14:35 -Correct Patient Yes -Correct Side, Site, Position Yes -Correct Procedure Yes -Procedure Performed Yes -Type of Procedure Debridement -Clinical Debridement Subcutaneous -Post Debridement Size (cm) - Length 1.0 -Post Debridement Size (cm) - Width 0.3 -Post Debridement Size (cm) - Depth 0.5 -Total Square Cm 0.30 -Wound/Ulcer Outcome Not Healed -Ulcer Cleansing Rinsed/ Irrigated with Saline -Foul Odor after Cleansing No -Bioengineered Tissue No -Cetacaine Hooven No -Topical Lidocaine (%) 5 -Bleeding Controlled with Pressure -Treatment Response Procedure Tolerated Well Pain Scale: 0-10 Numeric Is Patient Pain Free? Yes Wound debrided: stage III ulcer right gluteal fold Laterality: Right Wound Grade/Stage: Stage III Type of Debridement: Excisional debridement Anesthesia Used: 5% Lidocaine Gel Depth: Down to and including healthy tissue, in the subcutaneous layer Percentage of wound debrided: 100 Instrument Used: 5mm curette, #15 blade Tissue Removed: yellow slough, devitalized tissue Severity: Fat Layer Exposed Amount of bleeding with debridement: Mild Bleeding Controlled with: Compression and gauze Patient tolerated procedure well - Additional Wound Wound debrided: left buttocks stage IV Laterality: Left Wound Grade/Stage: Stage IV Type of Debridement: Excisional debridement Anesthesia Used: 4% Lidocaine Solution Depth: Down to and including healthy tissue, in the subcutaneous layer Percentage of wound debrided: 100 Instrument Used: 3mm curette Tissue Removed: yellow slough, devitalized tissue Severity: Fat Layer Exposed Amount of bleeding with debridement: Mild Bleeding Controlled with: Compression and gauze Patient tolerated procedure: Patient tolerated procedure well Assessment/Plan Active Problems Spinal stenosis (Chronic) Physical deconditioning (Chronic) Pressure sore of left ischium, stage 4 (Chronic) Diabetic neuropathy, type II diabetes mellitus (Chronic) Assessment: Pressure ulcer of the left buttock -non healing, despite several deep OR debridements, has not been willing to stay in bed and keep off of wound, and refuses to consider having a muscle flap since it would entail 6 wks in a bed in a ECF which she thinks would cause more deconditioning and require another few months to restrore her ambulation. wound is remaining free of infection and is not increasing in size but is stable. Right gluteal fold pressure ulcer stage III - healed. left Buttock/ischial ulcer stage III - healed Plan: Right buttock wound debrided as well as left buttock/ischium. Right buttock/gluteal fold will be treated with Aquacel Ag and a wound culture was taken today. She was started on Augmentin and will adjust antibiotic as necessary. Continue with aquacel daily wound packing to left buttocks. Encouraged to increase protein intake to aid in wound healing and maintain good control of diabetes. Discussed offloading importance in wound healing. F/U in 1 week. Nursing notes reviewed.
[2017-05-15 14:09] VITALS: BP 123/71; PULSE 115; RESP 18; TEMP 36.3
--- NOTE | 2017-05-15 19:04 | PCM.WC.PN ---
(1) Spinal stenosis Status: Chronic Current Visit: Yes Qualifiers: Spinal region: lumbosacral Code(s): M48.00 - Spinal stenosis, site unspecified (2) Physical deconditioning Status: Chronic Current Visit: Yes Code(s): R53.81 - Other malaise (3) Pressure sore of left ischium, stage 4 Status: Chronic Current Visit: Yes Code(s): L89.324 - Pressure ulcer of left buttock, stage 4 (4) Diabetic neuropathy, type II diabetes mellitus Status: Chronic Current Visit: Yes Qualifiers: Diabetes mellitus longterm insulin use: unspecified longterm insulin use status Qualified Code(s): E11.40 - Type 2 diabetes mellitus with diabetic neuropathy, unspecified Code(s): E11.40 - Type 2 diabetes mellitus with diabetic neuropathy, unspecified (5) Pressure ulcer of right buttock, stage 3 Status: Resolved Current Visit: Yes Code(s): L89.313 - Pressure ulcer of right buttock, stage 3 Type of Wound Date of Service: 05/15/17 Chief Complaint: Left ischial pressure sore, Stage IV. Spinal cord stenosis History of Wound: Patient is a 64-year-old female who has a chronic pressure ulcer of her left ischium. Patient was initially hospitalized for a swelling and redness of her right leg approximately 2014. This was evaluated for cellulitis. She was seen in consultation by infectious disease and plastic surgery. The patient was taken to surgery for an operative debridement of her chronic left ischial ulcer, underwent wound vac treatment and IV antibiotics. She was abruptly released from the F after only a few wks, before end of therapy. She had finished her IV antibiotics for Grp A strep osteomyelitis at home and continued with PT at home as well. She has decided to go with the conservative care route since she feels that her quality of life is more important than healing out the wound but had continued to keep the wound vac. The wound vac was discontinued by her insurance for failure to show improvement in the size of her wound. She has been being seen monthly for conservative/palliative care of her pressure ulcer of her left ischium. She has home health visiting weekly to assess her wound and monthly visits to the wound center. She has been tolerating this treatment well. She has recently started getting pressure ulcers of her right buttocks. January 2017, she underwent treatment after developing pressure ulcers which occurred from urinary incontinence issues associated with a chronic UTI and leakage of her catheter. She developed another pressure ulcer of her right buttock on or around April 20, 2017 and presents for treatment of this area as well as continued treatment of her left ischial pressure ulcer. She has been using Rain to the right buttock and continues to use Aquacel to the left ischium/buttock. Denies fever, chills or increased pain. Progress of Wound: Patient continues with conservative care management of left ischium - aquacel dressing to wound daily. No concerns for infection in this pressure ulcer at this time. The pressure ulcer of her right gluteal fold looks a little better. Wound cultures were positive for Proteus, Pseudomonas, E. faecalis and anaerobic cocci. She is almost finished with Augmentin that was prescribed last week. She denies increased pain or increased drainage. She continues to sit in her wheelchair frequently for long periods of time but has tried to offload more. - Physical Exam Vital Signs Temp Pulse Resp BP 97.3 F L 115 H 18 123/71 H 05/15/17 14:09 05/15/17 14:09 05/15/17 14:09 05/15/17 14:09 General: Alert, Oriented x3, Cooperative, No apparent distress HEENT: Atraumatic, Normocephalic Oral: Moist Mucosa Abdomen: Obese Skin: Ulcer/ Wound Wound Measurements and Assessment - Nurse 1 - General Ulcer Measurement Start: 05/08/17 13:33 Freq: Status: Active Protocol: Activity Type Activity Date Activity User E-Sign Co-Sign Detail Recorded Client Recorded Date Recorded By Document 05/15/17 14:09 DL [id number] 05/15/17 14:22 DL 05/15/17 14:09 Wound Center Nurse 1 [Ulcer Assessment Protocol: MANUELA.WD.LOC] #7- Stage III pressure ulcer RT GLUTEAL FOLD -Current Size (cm) - Length 3 -Current Size (cm) - Width 3.2 -Current Size (cm) - Depth 0.2 -Total Square Cm 9.6 -Photo Taken No -Exudate Amt Medium (34-66%) -Wound Margin Distinct, Outline Attached -Granulation Amt Medium (34-66%) -Granulation Quality Red -Necrosis Amt Medium (34-66%) -Necrotic Tissue Type Adherent Slough -Structure Exposed N/A -Texture (Amirah-wound Skin Appearance) No Abnormality -Moisture (Amirah-wound Skin Appearance No Abnormality ) -Color (Amirah-wound Skin Appearance) No Abnormality -Temperature (Amirah-wound Skin No Abnormality Appearance) (Pt Warm) -Ulcer Cleansing Wound Cleanser -Foul Odor after Cleansing No -Anesthetic Used 4% Lidocaine Solution #2 L buttocks stage IV -Current Size (cm) - Length 1 -Current Size (cm) - Width 0.1 -Current Size (cm) - Depth 0.5 -Total Square Cm 0.1 -Photo Taken No -Exudate Amt Medium (34-66%) -Exudate Type Serosanguineous -Wound Margin Thickened -Granulation Amt Small (1-33%) -Granulation Quality [place] -Necrosis Amt Small (1-33%) -Necrotic Tissue Type Adherent Slough -Structure Exposed Bone -Texture (Amirah-wound Skin Appearance) Scarring -Moisture (Amirah-wound Skin Appearance Maceration ) -Color (Amirah-wound Skin Appearance) No Abnormality -Temperature (Amirah-wound Skin No Abnormality Appearance) (Pt Warm) -Ulcer Cleansing Wound Cleanser -Foul Odor after Cleansing No -Anesthetic Used 4% Lidocaine Solution WC - Nurse 2 - General Ulcer CM Notes Start: 05/08/17 13:33 Freq: Status: Active Protocol: Activity Type Activity Date Activity User E-Sign Co-Sign Detail Recorded Client Recorded Date Recorded By Document 05/15/17 15:28 [id number] 05/15/17 15:44 05/15/17 15:28 Wound Center Nurse 2 [Procedure/Treatment] #7- Stage III pressure ulcer RT GLUTEAL FOLD -Time 15:43 -Correct Patient Yes -Correct Side, Site, Position Yes -Correct Procedure Yes -Procedure Performed Yes -Type of Procedure Debridement -Clinical Debridement Subcutaneous -Post Debridement Size (cm) - Length 3.1 -Post Debridement Size (cm) - Width 3.3 -Post Debridement Size (cm) - Depth 0.2 -Total Square Cm 10.23 -Wound/Ulcer Outcome Not Healed -Ulcer Cleansing Rinsed/ Irrigated with Saline -Foul Odor after Cleansing No -Bioengineered Tissue No -Cetacaine [place] No -Topical Lidocaine (%) 5 -Bleeding Controlled with Pressure -Treatment Response Procedure Tolerated Well #2 L buttocks stage IV -Time 15:43 -Correct Patient Yes -Correct Side, Site, Position Yes -Correct Procedure Yes -Procedure Performed Yes -Wound/Ulcer Outcome Not Healed -Ulcer Cleansing Rinsed/ Irrigated with Saline -Foul Odor after Cleansing No -Bioengineered Tissue No -Cetacaine [place] No -Topical Lidocaine (%) 5 -Bleeding Controlled with NA -Other not debrided today -Treatment Response Procedure Tolerated Well [See Physician Procedure note for Specifics] Pain Scale: 0-10 Numeric [Pain] -Is Patient Pain Free? Yes Psych/Mental Status: Normal Affect, Appropriate Debridement Note Post-Debridement Measurements/Treatment WC - Nurse 2 - General Ulcer CM Notes Start: 05/08/17 13:33 Freq: Status: Active Protocol: Activity Type Activity Date Activity User E-Sign Co-Sign Detail Recorded Client Recorded Date Recorded By Document 05/08/17 14:34 TM [id number] 05/08/17 14:42 TM Document 05/15/17 15:28 TM [id number] 05/15/17 15:44 TM 05/08/17 05/15/17 14:34 15:28 Wound Center Nurse 2 #7- Stage III pressure ulcer RT GLUTEAL FOLD -Time 14:34 15:43 -Correct Patient Yes Yes -Correct Side, Site, Position Yes Yes -Correct Procedure Yes Yes -Procedure Performed Yes Yes -Type of Procedure Debridement Debridement -Clinical Debridement Subcutaneous Subcutaneous -Post Debridement Size (cm) - Length 4.3 3.1 -Post Debridement Size (cm) - Width 3.0 3.3 -Post Debridement Size (cm) - Depth 0.1 0.2 -Total Square Cm 12.90 10.23 -Wound/Ulcer Outcome Not Healed Not Healed -Ulcer Cleansing Rinsed/ Rinsed/ Irrigated with Irrigated with Saline Saline -Foul Odor after Cleansing No No -Bioengineered Tissue No No -Cetacaine [place] No No -Topical Lidocaine (%) 5 5 -Bleeding Controlled with Pressure Pressure -Treatment Response Procedure Procedure Tolerated Well Tolerated Well #2 L buttocks stage IV -Time 14:35 15:43 -Correct Patient Yes Yes -Correct Side, Site, Position Yes Yes -Correct Procedure Yes Yes -Procedure Performed Yes Yes -Type of Procedure Debridement -Clinical Debridement Subcutaneous -Post Debridement Size (cm) - Length 1.0 -Post Debridement Size (cm) - Width 0.3 -Post Debridement Size (cm) - Depth 0.5 -Total Square Cm 0.30 -Wound/Ulcer Outcome Not Healed Not Healed -Ulcer Cleansing Rinsed/ Rinsed/ Irrigated with Irrigated with Saline Saline -Foul Odor after Cleansing No No -Bioengineered Tissue No No -Cetacaine [place] No No -Topical Lidocaine (%) 5 5 -Bleeding Controlled with Pressure NA -Other not debrided today -Treatment Response Procedure Procedure Tolerated Well Tolerated Well Pain Scale: 0-10 Numeric Is Patient Pain Free? Yes Yes Wound debrided: Stage III pressure ulcer right gluteal fold Laterality: Right Wound Grade/Stage: Stage III Type of Debridement: Excisional debridement Anesthesia Used: 4% Lidocaine Solution Depth: Down to and including healthy tissue, in the subcutaneous layer Percentage of wound debrided: 100 Instrument Used: 5mm curette, #15 blade, Forceps Tissue Removed: yellow slough, devitalized tissue Severity: Fat Layer Exposed Amount of bleeding with debridement: Mild Bleeding Controlled with: Compression and gauze Patient tolerated procedure well Assessment/Plan Active Problems Spinal stenosis (Chronic) Physical deconditioning (Chronic) Pressure sore of left ischium, stage 4 (Chronic) Diabetic neuropathy, type II diabetes mellitus (Chronic) Assessment: Pressure ulcer of the left buttock -non healing, despite several deep OR debridements, has not been willing to stay in bed and keep off of wound,and refuses to consider having a muscle flap since it would entail 6 wks in a bed in a [facility] which she thinks would cause more deconditioning and require another few months to restrore her ambulation. wound is remaining free of infection and is not increasing in size but is stable. Right gluteal fold pressure ulcer stage III - healed. left Buttock/ischial ulcer stage III - healed Plan: Right buttock wound debrided tonight. Right buttock/gluteal fold will be treated with Aquacel Ag. She will continue Augmentin and added ciprofloxacin. Continue with aquacel daily wound packing to left buttocks. Encouraged to increase protein intake to aid in wound healing and maintain good control of diabetes. Discussed offloading importance in wound healing. F/U in 1 week. Nursing notes reviewed.
--- NOTE | 2017-05-15 19:16 | PN.PCM_ITS ---
(1) Spinal stenosis Status: Chronic Current Visit: Yes Qualifiers: Spinal region: lumbosacral Code(s): M48.00 - Spinal stenosis, site unspecified (2) Physical deconditioning Status: Chronic Current Visit: Yes Code(s): R53.81 - Other malaise (3) Pressure sore of left ischium, stage 4 Status: Chronic Current Visit: Yes Code(s): L89.324 - Pressure ulcer of left buttock, stage 4 (4) Diabetic neuropathy, type II diabetes mellitus Status: Chronic Current Visit: Yes Qualifiers: Diabetes mellitus group home insulin use: unspecified group home insulin use status Qualified Code(s): E11.40 - Type 2 diabetes mellitus with diabetic neuropathy, unspecified Code(s): E11.40 - Type 2 diabetes mellitus with diabetic neuropathy, unspecified (5) Pressure ulcer of right buttock, stage 3 Status: Resolved Current Visit: Yes Code(s): L89.313 - Pressure ulcer of right buttock, stage 3 Type of Wound Date of Service: 05/15/17 Chief Complaint: Left ischial pressure sore, Stage IV. Spinal cord stenosis History of Wound: Patient is a 64-year-old female who has a chronic pressure ulcer of her left ischium. Patient was initially hospitalized for a swelling and redness of her right leg approximately 2014. This was evaluated for cellulitis. She was seen in consultation by infectious disease and plastic surgery. The patient was taken to surgery for an operative debridement of her chronic left ischial ulcer, underwent wound vac treatment and IV antibiotics. She was abruptly released from the F after only a few wks, before end of therapy. She had finished her IV antibiotics for Grp A strep osteomyelitis at home and continued with PT at home as well. She has decided to go with the conservative care route since she feels that her quality of life is more important than healing out the wound but had continued to keep the wound vac. The wound vac was discontinued by her insurance for failure to show improvement in the size of her wound. She has been being seen monthly for conservative/ palliative care of her pressure ulcer of her left ischium. She has home health visiting weekly to assess her wound and monthly visits to the wound center. She has been tolerating this treatment well. She has recently started getting pressure ulcers of her right buttocks. January 2017, she underwent treatment after developing pressure ulcers which occurred from urinary incontinence issues associated with a chronic UTI and leakage of her catheter. She developed another pressure ulcer of her right buttock on or around April 20, 2017 and presents for treatment of this area as well as continued treatment of her left ischial pressure ulcer. She has been using Rain to the right buttock and continues to use Aquacel to the left ischium/buttock. Denies fever, chills or increased pain. Progress of Wound: Patient continues with conservative care management of left ischium - aquacel dressing to wound daily. No concerns for infection in this pressure ulcer at this time. The pressure ulcer of her right gluteal fold looks a little better. Wound cultures were positive for Proteus, Pseudomonas, E. faecalis and anaerobic cocci. She is almost finished with Augmentin that was prescribed last week. She denies increased pain or increased drainage. She continues to sit in her wheelchair frequently for long periods of time but has tried to offload more. - Physical Exam Vital Signs Temp Pulse Resp BP 97.3 F L 115 H 18 123/71 H 05/15/17 14:09 05/15/17 14:09 05/15/17 14:09 05/15/17 14:09 General: Alert, Oriented x3, Cooperative, No apparent distress HEENT: Atraumatic, Normocephalic Oral: Moist Mucosa Abdomen: Obese Skin: Ulcer/ Wound Wound Measurements and Assessment - Nurse 1 - General Ulcer Measurement Start: 05/08/17 13:33 Freq: Status: Active Protocol: Activity Type Activity Date Activity User E-Sign Co-Sign Detail Recorded Client Recorded Date Recorded By Document 05/15/17 14:09 DL [id number] 05/15/17 14:22 DL 05/15/17 14:09 Wound Center Nurse 1 [Ulcer Assessment Protocol: MANUEAL.WD.LOC] #7- Stage III pressure ulcer RT GLUTEAL FOLD -Current Size (cm) - Length 3 -Current Size (cm) - Width 3.2 -Current Size (cm) - Depth 0.2 -Total Square Cm 9.6 -Photo Taken No -Exudate Amt Medium (34-66%) -Wound Margin Distinct, Outline Attached -Granulation Amt Medium (34-66%) -Granulation Quality Red -Necrosis Amt Medium (34-66%) -Necrotic Tissue Type Adherent Slough -Structure Exposed N/A -Texture (Amirah-wound Skin Appearance) No Abnormality -Moisture (Amirah-wound Skin Appearance No Abnormality ) -Color (Amirah-wound Skin Appearance) No Abnormality -Temperature (Amirah-wound Skin No Abnormality Appearance) (Pt Warm) -Ulcer Cleansing Wound Cleanser -Foul Odor after Cleansing No -Anesthetic Used 4% Lidocaine Solution #2 L buttocks stage IV -Current Size (cm) - Length 1 -Current Size (cm) - Width 0.1 -Current Size (cm) - Depth 0.5 -Total Square Cm 0.1 -Photo Taken No -Exudate Amt Medium (34-66%) -Exudate Type Serosanguineous -Wound Margin Thickened -Granulation Amt Small (1-33%) -Granulation Quality [place] -Necrosis Amt Small (1-33%) -Necrotic Tissue Type Adherent Slough -Structure Exposed Bone -Texture (Amiarh-wound Skin Appearance) Scarring -Moisture (Amirah-wound Skin Appearance Maceration ) -Color (Amirah-wound Skin Appearance) No Abnormality -Temperature (Amirah-wound Skin No Abnormality Appearance) (Pt Warm) -Ulcer Cleansing Wound Cleanser -Foul Odor after Cleansing No -Anesthetic Used 4% Lidocaine Solution WC - Nurse 2 - General Ulcer CM Notes Start: 05/08/17 13:33 Freq: Status: Active Protocol: Activity Type Activity Date Activity User E-Sign Co-Sign Detail Recorded Client Recorded Date Recorded By Document 05/15/17 15:28 [id number] 05/15/17 15:44 05/15/17 15:28 Wound Center Nurse 2 [Procedure/Treatment] #7- Stage III pressure ulcer RT GLUTEAL FOLD -Time 15:43 -Correct Patient Yes -Correct Side, Site, Position Yes -Correct Procedure Yes -Procedure Performed Yes -Type of Procedure Debridement -Clinical Debridement Subcutaneous -Post Debridement Size (cm) - Length 3.1 -Post Debridement Size (cm) - Width 3.3 -Post Debridement Size (cm) - Depth 0.2 -Total Square Cm 10.23 -Wound/Ulcer Outcome Not Healed -Ulcer Cleansing Rinsed/ Irrigated with Saline -Foul Odor after Cleansing No -Bioengineered Tissue No -Cetacaine [place] No -Topical Lidocaine (%) 5 -Bleeding Controlled with Pressure -Treatment Response Procedure Tolerated Well #2 L buttocks stage IV -Time 15:43 -Correct Patient Yes -Correct Side, Site, Position Yes -Correct Procedure Yes -Procedure Performed Yes -Wound/Ulcer Outcome Not Healed -Ulcer Cleansing Rinsed/ Irrigated with Saline -Foul Odor after Cleansing No -Bioengineered Tissue No -Cetacaine [place] No -Topical Lidocaine (%) 5 -Bleeding Controlled with NA -Other not debrided today -Treatment Response Procedure Tolerated Well [See Physician Procedure note for Specifics] Pain Scale: 0-10 Numeric [Pain] -Is Patient Pain Free? Yes Psych/Mental Status: Normal Affect, Appropriate Debridement Note Post-Debridement Measurements/Treatment WC - Nurse 2 - General Ulcer CM Notes Start: 05/08/17 13:33 Freq: Status: Active Protocol: Activity Type Activity Date Activity User E-Sign Co-Sign Detail Recorded Client Recorded Date Recorded By Document 05/08/17 14:34 TM [id number] 05/08/17 14:42 TM Document 05/15/17 15:28 TM [id number] 05/15/17 15:44 TM 05/08/17 05/15/17 14:34 15:28 Wound Center Nurse 2 #7- Stage III pressure ulcer RT GLUTEAL FOLD -Time 14:34 15:43 -Correct Patient Yes Yes -Correct Side, Site, Position Yes Yes -Correct Procedure Yes Yes -Procedure Performed Yes Yes -Type of Procedure Debridement Debridement -Clinical Debridement Subcutaneous Subcutaneous -Post Debridement Size (cm) - Length 4.3 3.1 -Post Debridement Size (cm) - Width 3.0 3.3 -Post Debridement Size (cm) - Depth 0.1 0.2 -Total Square Cm 12.90 10.23 -Wound/Ulcer Outcome Not Healed Not Healed -Ulcer Cleansing Rinsed/ Rinsed/ Irrigated with Irrigated with Saline Saline -Foul Odor after Cleansing No No -Bioengineered Tissue No No -Cetacaine [place] No No -Topical Lidocaine (%) 5 5 -Bleeding Controlled with Pressure Pressure -Treatment Response Procedure Procedure Tolerated Well Tolerated Well #2 L buttocks stage IV -Time 14:35 15:43 -Correct Patient Yes Yes -Correct Side, Site, Position Yes Yes -Correct Procedure Yes Yes -Procedure Performed Yes Yes -Type of Procedure Debridement -Clinical Debridement Subcutaneous -Post Debridement Size (cm) - Length 1.0 -Post Debridement Size (cm) - Width 0.3 -Post Debridement Size (cm) - Depth 0.5 -Total Square Cm 0.30 -Wound/Ulcer Outcome Not Healed Not Healed -Ulcer Cleansing Rinsed/ Rinsed/ Irrigated with Irrigated with Saline Saline -Foul Odor after Cleansing No No -Bioengineered Tissue No No -Cetacaine [place] No No -Topical Lidocaine (%) 5 5 -Bleeding Controlled with Pressure NA -Other not debrided today -Treatment Response Procedure Procedure Tolerated Well Tolerated Well Pain Scale: 0-10 Numeric Is Patient Pain Free? Yes Yes Wound debrided: Stage III pressure ulcer right gluteal fold Laterality: Right Wound Grade/Stage: Stage III Type of Debridement: Excisional debridement Anesthesia Used: 4% Lidocaine Solution Depth: Down to and including healthy tissue, in the subcutaneous layer Percentage of wound debrided: 100 Instrument Used: 5mm curette, #15 blade, Forceps Tissue Removed: yellow slough, devitalized tissue Severity: Fat Layer Exposed Amount of bleeding with debridement: Mild Bleeding Controlled with: Compression and gauze Patient tolerated procedure well Assessment/Plan Active Problems Spinal stenosis (Chronic) Physical deconditioning (Chronic) Pressure sore of left ischium, stage 4 (Chronic) Diabetic neuropathy, type II diabetes mellitus (Chronic) Assessment: Pressure ulcer of the left buttock -non healing, despite several deep OR debridements, has not been willing to stay in bed and keep off of wound, and refuses to consider having a muscle flap since it would entail 6 wks [facility] a [facility] which she thinks would cause more deconditioning and require another few months to restrore her ambulation. wound is remaining free of infection and is not increasing in size but is stable. Right gluteal fold pressure ulcer stage III - healed. left Buttock/ischial ulcer stage III - healed Plan: Right buttock wound debrided tonight. Right buttock/gluteal fold will be treated with Aquacel Ag. She will continue Augmentin and added ciprofloxacin. Continue with aquacel daily wound packing to left buttocks. Encouraged to increase protein intake to aid in wound healing and maintain good control of diabetes. Discussed offloading importance in wound healing. F/U in 1 week. Nursing notes reviewed.
== END 2017-05-20 23:59 ==
LOC: WC 13:45
PROVIDERS: Family Provider Family Medicine; PCP Family Medicine; Visit Provider Family Medicine
DX: E11.622 Type 2 diabetes mellitus with other skin ulcer (principal); L89.324 Pressure ulcer of left buttock, stage 4; E11.40 Type 2 diabetes mellitus with diabetic neuropathy, unspecified; M48.00 Spinal stenosis, site unspecified; M79.89 Other specified soft tissue disorders; D63.8 Anemia in other chronic diseases classified elsewhere; M19.90 Unspecified osteoarthritis, unspecified site; M86.652 Other chronic osteomyelitis, left thigh; M72.0 Palmar fascial fibromatosis [Dupuytren]; E78.5 Hyperlipidemia, unspecified; Z93.3 Colostomy status; Z79.899 Other long term (current) drug therapy; M10.9 Gout, unspecified; Z79.84 Long term (current) use of oral hypoglycemic drugs; B96.5 Pseudomonas (aeruginosa) (mallei) (pseudomallei) as the cause of diseases classified elsewhere; B95.2 Enterococcus as the cause of diseases classified elsewhere; B96.4 Proteus (mirabilis) (morganii) as the cause of diseases classified elsewhere
CPT/HCPCS: 11042; 87070; 87075; 87077; 87186; 87205

== ENCOUNTER → 2017-06-03 14:05 | Outpatient (CLI) | payer MEDICAID, SELFPAY ==
[2017-06-03 15:47] LABS: Absolute Lymphocyte Count 1.28 X10^3/ul (0.83-4.51); Absolute Neutrophil Count 9.9 X10^3/uL (2.0-7.7); Basophil# 0.03 X10^3/uL; Basophil% 0.2 % (0-1); Eosinophil# 0.22 X10^3/uL; Eosinophils% 1.8 % (0-5); Hematocrit 40.3 % (37-47); Hemoglobin 12.9 g/dl (12.0-15.0); Lymphocyte # 1.28 X10^3/ul (4.0); Lymphocyte % 10.4 % (19-41); Mean Corpuscular Hgb 27.7 pg (27.0-32.0); Mean Corpuscular Volume 86.7 fL (81-99); Mean Platelet Vol. 9.8 fl (6.2-12.0); Monocyte# 0.92 X10^3/uL; Monocyte% 7.4 % (0-10); Neutrophil # 9.86 X10^3/uL (2.7-7.7); Neutrophil % 79.9 % (47-70); POSITIVE COUNT NO; POSITIVE DIFFERENTIAL NO; POSITIVE MORPHOLOGY NO; Platelet Count 340 K/mm3 (150-450); RBC Distribution Width CV 15.8 % (11.6-14.6); RBC Distribution Width SD 49.1 fl (35.1-43.9); Red Blood Count 4.65 M/mm3 (4.2-5.4); White Blood Count 12.4 K/mm3 (4.4-11.0)
[2017-06-03 16:25] LABS: Hemoglobin A1c 6.9 % (4.2-6.3)
[2017-06-03 16:30] LABS: ALB/GLOB Ratio 0.6 RATIO (0.9-2.4); AST(SGOT) 17 U/L (15-37); Alanine Aminotransfer ALT/SGPT 24 U/L (13-56); Albumin, Serum 3.2 g/dL (3.2-5.0); Alkaline Phosphatase 69 U/L (45-117); Anion Gap 11 (5-15); BUN 28 mg/dL (7-18); BUN/Creat Ratio 42.3 RATIO (10-20); Calcium,Total 9.2 mg/dL (8.5-10.1); Chloride 102 mmol/L (98-107); Cholesterol 102 mg/dL (200); Creatinine, Serum 0.66 mg/dL (0.55-1.02); EST Glomerular Filtration Rate 94 mL/min (>60); Est Glom Filt Rate - Afr Amer 114 mL/min (>60); Globulin 5.4 g/dL (2.2-4.2); Glucose 115 mg/dL (74-106); High Density Lipoprotein 48 mg/dL; Potassium 4.1 mmol/L (3.5-5.1); Protein, Total 8.6 g/dL (6.4-8.2); Sodium Level 138 mmol/L (136-145); Thyroid Stim Hormone (TSH) 1.04 uIU/mL (0.358-3.74); Triglycerides 65 mg/dL; Very Low Density Lipoprotein 13 mg/dL (5-40)
== END ==
PROVIDERS: Family Provider Family Medicine; PCP Family Medicine; Visit Provider Family Medicine
DX: L98.429 Non-pressure chronic ulcer of back with unspecified severity (principal); E11.9 Type 2 diabetes mellitus without complications
CPT/HCPCS: 36415; 80053; 80061; 83036; 84443; 85025

== ENCOUNTER 2017-06-12 12:30 | Outpatient (RCR) | payer MEDICAID, SELFPAY ==
[2017-05-15 14:09] VITALS: BP 123/71
[2017-05-21 00:34] VITALS: PULSE 115; RESP 18; TEMP 36.3
[2017-05-22 13:50] VITALS: BP 124/62; PULSE 110; RESP 16; TEMP 36.6
--- NOTE | 2017-05-22 18:53 | PCM.WC.PN ---
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 Spinal cord stenosis History of Wound: Patient is a 64-year-old female who has a chronic pressure ulcer of her left ischium. Patient was initially hospitalized for a swelling and redness of her right leg approximately 2014. This was evaluated for cellulitis. She was seen in consultation by infectious disease and plastic surgery. The patient was taken to surgery for an operative debridement of her chronic left ischial ulcer, underwent wound vac treatment and IV antibiotics. She was abruptly released from the ECF after only a few wks, before end of therapy. She had finished her IV antibiotics for Grp A strep osteomyelitis at home and continued with PT at home as well. She has decided to go with the conservative care route since she feels that her quality of life is more important than healing out the wound but had continued to keep the wound vac. The wound vac was discontinued by her insurance for failure to show improvement in the size of her wound. She has been being seen monthly for conservative/palliative care of her pressure ulcer of her left ischium. She has home health visiting weekly to assess her wound and monthly visits to the wound center. She has been tolerating this treatment well. She has recently started getting pressure ulcers of her right buttocks. January 2017, she underwent treatment after developing pressure ulcers which occurred from urinary incontinence issues associated with a chronic UTI and leakage of her catheter. She developed another pressure ulcer of her right buttock on or around April 20, 2017 and presents for treatment of this area as well as continued treatment of her left ischial pressure ulcer. She has been using Rain to the right buttock and continues to use Aquacel to the left ischium/buttock. Denies fever, chills or increased pain. Progress of Wound: Patient continues with conservative care management of left ischium - aquacel dressing to wound daily. No concerns for infection in this pressure ulcer at this time. The pressure ulcer of her right gluteal fold is unchanged. Wound cultures were positive for Proteus, Pseudomonas, E. faecalis and anaerobic cocci. She is almost finished with Augmentin that was prescribed and is partway through her ciprofloxacin prescription. She denies increased pain or increased drainage. She continues to sit in her wheelchair frequently for long periods of time but has tried to offload more. - Physical Exam Vital Signs Temp Pulse Resp BP 97.8 F 110 H 16 124/62 H 05/22/17 13:50 05/22/17 13:50 05/22/17 13:50 05/22/17 13:50 General: Alert, Oriented x3, Cooperative, No apparent distress HEENT: Atraumatic, Normocephalic Oral: Moist Mucosa Abdomen: Obese Skin: Ulcer/ Wound Wound Measurements and Assessment - Nurse 1 - General Ulcer Measurement Start: 05/22/17 13:49 Freq: Status: Active Protocol: Activity Type Activity Date Activity User E-Sign Co-Sign Detail Recorded Client Recorded Date Recorded By Document 05/22/17 13:50 TN [id number] 05/22/17 13:54 TN 05/22/17 13:50 Wound Center Nurse 1 [Ulcer Assessment Protocol: MANUELA.WD.LOC] #7- Stage III pressure ulcer RT GLUTEAL FOLD -Combined with other wound No -Current Size (cm) - Length 4 -Current Size (cm) - Width 3.4 -Current Size (cm) - Depth 0.2 -Total Square Cm 13.6 -Photo Taken No -Epithelialization None Present -Tunneling No -Undermining/Tunneling No -Circular Undermining No -Classification - Thickness Full Thickness without Exposed Support Structure -Exudate Amt Small (1-33%) -Exudate Type Serosanguineous -Wound Margin Flat & Intact -Granulation Amt Medium (34-66%) -Granulation Quality [place] -Slough/Fibrin Yes -Necrosis Amt Medium (34-66%) -Necrotic Tissue Type Adherent Slough -Structure Exposed None/Limited to Skin Breakdown -Texture (Amirah-wound Skin Appearance) Assessed Scarring -Moisture (Amirah-wound Skin Appearance No Abnormality ) Assessed -Color (Amirah-wound Skin Appearance) Assessed Erythema -Temperature (Amirah-wound Skin No Abnormality Appearance) (Pt Warm) -Tenderness on Palpation (Amirah-wound No Skin Appearance) -Ulcer Cleansing Rinsed/ Irrigated with Saline -Foul Odor after Cleansing No -Anesthetic Used 4% Lidocaine Solution [Edema Assessment] -Lower Limb Edema Present No WC - Nurse 2 - General Ulcer CM Notes Start: 05/22/17 13:49 Freq: Status: Active Protocol: Activity Type Activity Date Activity User E-Sign Co-Sign Detail Recorded Client Recorded Date Recorded By Document 05/22/17 14:36 [id number] 05/22/17 14:44 05/22/17 14:36 Wound Center Nurse 2 [Procedure/Treatment] #7- Stage III pressure ulcer RT GLUTEAL FOLD -Time 14:36 -Correct Patient Yes -Correct Side, Site, Position Yes -Correct Procedure Yes -Procedure Performed Yes -Type of Procedure Debridement -Clinical Debridement Subcutaneous -Post Debridement Size (cm) - Length 4.2 -Post Debridement Size (cm) - Width 3.2 -Post Debridement Size (cm) - Depth 0.2 -Total Square Cm 13.44 -Wound/Ulcer Outcome Not Healed -Ulcer Cleansing Rinsed/ Irrigated with Saline -Foul Odor after Cleansing No -Bioengineered Tissue No -Cetacaine Sim[place] No -Topical Lidocaine (%) 5 -Bleeding Controlled with Pressure -Treatment Response Procedure Tolerated Well #2 L buttocks stage IV -Time 14:37 -Correct Patient Yes -Correct Side, Site, Position Yes -Correct Procedure Yes -Procedure Performed Yes -Wound/Ulcer Outcome Not Healed -Ulcer Cleansing Rinsed/ Irrigated with Saline -Foul Odor after Cleansing No -Bioengineered Tissue No -Cetacaine Sims No -Bleeding Controlled with NA -Other no debridement today -Treatment Response Procedure Tolerated Well [See Physician Procedure note for Specifics] Pain Scale: 0-10 Numeric [Pain] -Is Patient Pain Free? Yes Psych/Mental Status: Normal Affect, Appropriate Debridement Note Post-Debridement Measurements/Treatment WC - Nurse 2 - General Ulcer CM Notes Start: 05/22/17 13:49 Freq: Status: Active Protocol: Activity Type Activity Date Activity User E-Sign Co-Sign Detail Recorded Client Recorded Date Recorded By Document 05/22/17 14:36 [id number] 05/22/17 14:44 05/22/17 14:36 Wound Center Nurse 2 #7- Stage III pressure ulcer RT GLUTEAL FOLD -Time 14:36 -Correct Patient Yes -Correct Side, Site, Position Yes -Correct Procedure Yes -Procedure Performed Yes -Type of Procedure Debridement -Clinical Debridement Subcutaneous -Post Debridement Size (cm) - Length 4.2 -Post Debridement Size (cm) - Width 3.2 -Post Debridement Size (cm) - Depth 0.2 -Total Square Cm 13.44 -Wound/Ulcer Outcome Not Healed -Ulcer Cleansing Rinsed/ Irrigated with Saline -Foul Odor after Cleansing No -Bioengineered Tissue No -Cetacaine Sims No -Topical Lidocaine (%) 5 -Bleeding Controlled with Pressure -Treatment Response Procedure Tolerated Well #2 L buttocks stage IV -Time 14:37 -Correct Patient Yes -Correct Side, Site, Position Yes -Correct Procedure Yes -Procedure Performed Yes -Wound/Ulcer Outcome Not Healed -Ulcer Cleansing Rinsed/ Irrigated with Saline -Foul Odor after Cleansing No -Bioengineered Tissue No -Cetacaine Sims No -Bleeding Controlled with NA -Other no debridement today -Treatment Response Procedure Tolerated Well Pain Scale: 0-10 Numeric Is Patient Pain Free? Yes Wound debrided: left buttocks Laterality: Left Wound Grade/Stage: stage IV No debridement was completed today - Additional Wound Wound debrided: right gluteal fold Laterality: Right Wound Grade/Stage: Stage III Type of Debridement: Excisional debridement Anesthesia Used: 4% Lidocaine Solution Depth: Down to and including healthy tissue, in the subcutaneous layer Percentage of wound debrided: 100 Instrument Used: 5mm curette, #15 blade, Forceps Tissue Removed: yellow slough, devitalized tissue Severity: Fat Layer Exposed Amount of bleeding with debridement: Mild Bleeding Controlled with: Compression and gauze Patient tolerated procedure: Patient tolerated procedure well Assessment/Plan Active Problems Spinal stenosis (Chronic) Diabetic neuropathy, type II diabetes mellitus (Chronic) Pressure ulcer of right buttock, stage 3 (Chronic) Assessment: Pressure ulcer of the left buttock -non healing, despite several deep OR debridements, has not been willing to stay in bed and keep off of wound,and refuses to consider having a muscle flap since it would entail 6 wks in a bed in a ECF which she thinks would cause more deconditioning and require another few months to restrore her ambulation. wound is remaining free of infection and is not increasing in size but is stable. Right gluteal fold pressure ulcer stage III - healed. left Buttock/ischial ulcer stage III - healed Plan: Right buttock wound debrided. Right buttock/gluteal fold will be treated with Aquacel Ag. She will continue Augmentin and ciprofloxacin for and additional 10 days. Continue with aquacel daily wound packing to left buttocks. Encouraged to increase protein intake to aid in wound healing and maintain good control of diabetes. Discussed offloading importance in wound healing. F/U in 1 week. Nursing notes reviewed.
--- NOTE | 2017-05-22 18:59 | PN.PCM_ITS ---
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 Spinal cord stenosis History of Wound: Patient is a 64-year-old female who has a chronic pressure ulcer of her left ischium. Patient was initially hospitalized for a swelling and redness of her right leg approximately 2014. This was evaluated for cellulitis. She was seen in consultation by infectious disease and plastic surgery. The patient was taken to surgery for an operative debridement of her chronic left ischial ulcer, underwent wound vac treatment and IV antibiotics. She was abruptly released from the ECF after only a few wks, before end of therapy. She had finished her IV antibiotics for Grp A strep osteomyelitis at home and continued with PT at home as well. She has decided to go with the conservative care route since she feels that her quality of life is more important than healing out the wound but had continued to keep the wound vac. The wound vac was discontinued by her insurance for failure to show improvement in the size of her wound. She has been being seen monthly for conservative/ palliative care of her pressure ulcer of her left ischium. She has home health visiting weekly to assess her wound and monthly visits to the wound center. She has been tolerating this treatment well. She has recently started getting pressure ulcers of her right buttocks. January 2017, she underwent treatment after developing pressure ulcers which occurred from urinary incontinence issues associated with a chronic UTI and leakage of her catheter. She developed another pressure ulcer of her right buttock on or around April 20, 2017 and presents for treatment of this area as well as continued treatment of her left ischial pressure ulcer. She has been using Rain to the right buttock and continues to use Aquacel to the left ischium/buttock. Denies fever, chills or increased pain. Progress of Wound: Patient continues with conservative care management of left ischium - aquacel dressing to wound daily. No concerns for infection in this pressure ulcer at this time. The pressure ulcer of her right gluteal fold is unchanged. Wound cultures were positive for Proteus, Pseudomonas, E. faecalis and anaerobic cocci. She is almost finished with Augmentin that was prescribed and is partway through her ciprofloxacin prescription. She denies increased pain or increased drainage. She continues to sit in her wheelchair frequently for long periods of time but has tried to offload more. - Physical Exam Vital Signs Temp Pulse Resp BP 97.8 F 110 H 16 124/62 H 05/22/17 13:50 05/22/17 13:50 05/22/17 13:50 05/22/17 13:50 General: Alert, Oriented x3, Cooperative, No apparent distress HEENT: Atraumatic, Normocephalic Oral: Moist Mucosa Abdomen: Obese Skin: Ulcer/ Wound Wound Measurements and Assessment - Nurse 1 - General Ulcer Measurement Start: 05/22/17 13:49 Freq: Status: Active Protocol: Activity Type Activity Date Activity User E-Sign Co-Sign Detail Recorded Client Recorded Date Recorded By Document 05/22/17 13:50 TN [id number] 05/22/17 13:54 TN 05/22/17 13:50 Wound Center Nurse 1 [Ulcer Assessment Protocol: MANUELA.WD.LOC] #7- Stage III pressure ulcer RT GLUTEAL FOLD -Combined with other wound No -Current Size (cm) - Length 4 -Current Size (cm) - Width 3.4 -Current Size (cm) - Depth 0.2 -Total Square Cm 13.6 -Photo Taken No -Epithelialization None Present -Tunneling No -Undermining/Tunneling No -Circular Undermining No -Classification - Thickness Full Thickness without Exposed Support Structure -Exudate Amt Small (1-33%) -Exudate Type Serosanguineous -Wound Margin Flat & Intact -Granulation Amt Medium (34-66%) -Granulation Quality [place] -Slough/Fibrin Yes -Necrosis Amt Medium (34-66%) -Necrotic Tissue Type Adherent Slough -Structure Exposed None/Limited to Skin Breakdown -Texture (Amirah-wound Skin Appearance) Assessed Scarring -Moisture (Amirah-wound Skin Appearance No Abnormality ) Assessed -Color (Amirah-wound Skin Appearance) Assessed Erythema -Temperature (Amirah-wound Skin No Abnormality Appearance) (Pt Warm) -Tenderness on Palpation (Amirah-wound No Skin Appearance) -Ulcer Cleansing Rinsed/ Irrigated with Saline -Foul Odor after Cleansing No -Anesthetic Used 4% Lidocaine Solution [Edema Assessment] -Lower Limb Edema Present No WC - Nurse 2 - General Ulcer CM Notes Start: 05/22/17 13:49 Freq: Status: Active Protocol: Activity Type Activity Date Activity User E-Sign Co-Sign Detail Recorded Client Recorded Date Recorded By Document 05/22/17 14:36 [id number] 05/22/17 14:44 05/22/17 14:36 Wound Center Nurse 2 [Procedure/Treatment] #7- Stage III pressure ulcer RT GLUTEAL FOLD -Time 14:36 -Correct Patient Yes -Correct Side, Site, Position Yes -Correct Procedure Yes -Procedure Performed Yes -Type of Procedure Debridement -Clinical Debridement Subcutaneous -Post Debridement Size (cm) - Length 4.2 -Post Debridement Size (cm) - Width 3.2 -Post Debridement Size (cm) - Depth 0.2 -Total Square Cm 13.44 -Wound/Ulcer Outcome Not Healed -Ulcer Cleansing Rinsed/ Irrigated with Saline -Foul Odor after Cleansing No -Bioengineered Tissue No -Cetacaine [place] No -Topical Lidocaine (%) 5 -Bleeding Controlled with Pressure -Treatment Response Procedure Tolerated Well #2 L buttocks stage IV -Time 14:37 -Correct Patient Yes -Correct Side, Site, Position Yes -Correct Procedure Yes -Procedure Performed Yes -Wound/Ulcer Outcome Not Healed -Ulcer Cleansing Rinsed/ Irrigated with Saline -Foul Odor after Cleansing No -Bioengineered Tissue No -Cetacaine [place] No -Bleeding Controlled with NA -Other no debridement today -Treatment Response Procedure Tolerated Well [See Physician Procedure note for Specifics] Pain Scale: 0-10 Numeric [Pain] -Is Patient Pain Free? Yes Psych/Mental Status: Normal Affect, Appropriate Debridement Note Post-Debridement Measurements/Treatment WC - Nurse 2 - General Ulcer CM Notes Start: 05/22/17 13:49 Freq: Status: Active Protocol: Activity Type Activity Date Activity User E-Sign Co-Sign Detail Recorded Client Recorded Date Recorded By Document 05/22/17 14:36 [id number] 05/22/17 14:44 05/22/17 14:36 Wound Center Nurse 2 #7- Stage III pressure ulcer RT GLUTEAL FOLD -Time 14:36 -Correct Patient Yes -Correct Side, Site, Position Yes -Correct Procedure Yes -Procedure Performed Yes -Type of Procedure Debridement -Clinical Debridement Subcutaneous -Post Debridement Size (cm) - Length 4.2 -Post Debridement Size (cm) - Width 3.2 -Post Debridement Size (cm) - Depth 0.2 -Total Square Cm 13.44 -Wound/Ulcer Outcome Not Healed -Ulcer Cleansing Rinsed/ Irrigated with Saline -Foul Odor after Cleansing No -Bioengineered Tissue No -Cetacaine [place] No -Topical Lidocaine (%) 5 -Bleeding Controlled with Pressure -Treatment Response Procedure Tolerated Well #2 L buttocks stage IV -Time 14:37 -Correct Patient Yes -Correct Side, Site, Position Yes -Correct Procedure Yes -Procedure Performed Yes -Wound/Ulcer Outcome Not Healed -Ulcer Cleansing Rinsed/ Irrigated with Saline -Foul Odor after Cleansing No -Bioengineered Tissue No -Cetacaine [place] No -Bleeding Controlled with NA -Other no debridement today -Treatment Response Procedure Tolerated Well Pain Scale: 0-10 Numeric Is Patient Pain Free? Yes Wound debrided: left buttocks Laterality: Left Wound Grade/Stage: stage IV No debridement was completed today - Additional Wound Wound debrided: right gluteal fold Laterality: Right Wound Grade/Stage: Stage III Type of Debridement: Excisional debridement Anesthesia Used: 4% Lidocaine Solution Depth: Down to and including healthy tissue, in the subcutaneous layer Percentage of wound debrided: 100 Instrument Used: 5mm curette, #15 blade, Forceps Tissue Removed: yellow slough, devitalized tissue Severity: Fat Layer Exposed Amount of bleeding with debridement: Mild Bleeding Controlled with: Compression and gauze Patient tolerated procedure: Patient tolerated procedure well Assessment/Plan Active Problems Spinal stenosis (Chronic) Diabetic neuropathy, type II diabetes mellitus (Chronic) Pressure ulcer of right buttock, stage 3 (Chronic) Assessment: Pressure ulcer of the left buttock -non healing, despite several deep OR debridements, has not been willing to stay in bed and keep off of wound, and refuses to consider having a muscle flap since it would entail 6 wks in a bed in a ECF which she thinks would cause more deconditioning and require another few months to restrore her ambulation. wound is remaining free of infection and is not increasing in size but is stable. Right gluteal fold pressure ulcer stage III - healed. left Buttock/ischial ulcer stage III - healed Plan: Right buttock wound debrided. Right buttock/gluteal fold will be treated with Aquacel Ag. She will continue Augmentin and ciprofloxacin for and additional 10 days. Continue with aquacel daily wound packing to left buttocks. Encouraged to increase protein intake to aid in wound healing and maintain good control of diabetes. Discussed offloading importance in wound healing. F/U in 1 week. Nursing notes reviewed.
[2017-05-29 14:21] VITALS: BP 108/73; PULSE 102; RESP 16; TEMP 36.9
--- NOTE | 2017-05-29 17:17 | PCM.WC.PN ---
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 insulin use: unspecified penitentiary insulin use status Code(s): E11.40 - Type 2 diabetes mellitus with diabetic neuropathy, unspecified (4) Pressure ulcer of right buttock, stage 3 Status: Chronic Current Visit: Yes Code(s): L89.313 - Pressure ulcer of right buttock, stage 3 (5) Open wound of left thigh Status: Acute Current Visit: Yes Qualifiers: Encounter type: initial encounter Qualified Code(s): S71.102A - Unspecified open wound, left thigh, initial encounter Code(s): S71.102A - Unspecified open wound, left thigh, initial encounter Comment: traumatic skin tear posterior thigh Type of Wound Date of Service: 05/29/17 Chief Complaint: Left ischial pressure sore, Stage IV. Spinal cord stenosis History of Wound: Patient is a 64-year-old female who has a chronic pressure ulcer of her left ischium. Patient was initially hospitalized for a swelling and redness of her right leg approximately 2014. This was evaluated for cellulitis. She was seen in consultation by infectious disease and plastic surgery. The patient was taken to surgery for an operative debridement of her chronic left ischial ulcer, underwent wound vac treatment and IV antibiotics. She was abruptly released from the F after only a few wks, before end of therapy. She had finished her IV antibiotics for Grp A strep osteomyelitis at home and continued with PT at home as well. She has decided to go with the conservative care route since she feels that her quality of life is more important than healing out the wound but had continued to keep the wound vac. The wound vac was discontinued by her insurance for failure to show improvement in the size of her wound. She has been being seen monthly for conservative/palliative care of her pressure ulcer of her left ischium. She has home health visiting weekly to assess her wound and monthly visits to the wound center. She has been tolerating this treatment well. She has recently started getting pressure ulcers of her right buttocks. January 2017, she underwent treatment after developing pressure ulcers which occurred from urinary incontinence issues associated with a chronic UTI and leakage of her catheter. She developed another pressure ulcer of her right buttock on or around April 20, 2017 and presents for treatment of this area as well as continued treatment of her left ischial pressure ulcer. She has been using Rain to the right buttock and continues to use Aquacel to the left ischium/buttock. Denies fever, chills or increased pain. Progress of Wound: Patient continues with conservative care management of left ischium - aquacel dressing to wound daily. No concerns for infection in this pressure ulcer at this time. The pressure ulcer of her right gluteal fold is worsened. She also developed some skin tears after seeing PAPI[facility] MACHE MOLDER this week when they were positioning her on the exam table. Wound cultures were positive for Proteus, Pseudomonas, E. faecalis and anaerobic cocci. She is finished with Augmentin that was prescribed and is partway through her ciprofloxacin prescription. She denies increased pain or increased drainage. She continues to sit in her wheelchair frequently for long periods of time but has tried to offload more. - Physical Exam Vital Signs Temp Pulse Resp BP 98.4 F 102 H 16 108/73 05/29/17 14:21 05/29/17 14:21 05/29/17 14:21 05/29/17 14:21 General: Alert, Oriented x3, Cooperative, No apparent distress HEENT: Atraumatic, Normocephalic Oral: Moist Mucosa Abdomen: Soft, Non Tender, Obese Skin: Ulcer/ Wound Wound Measurements and Assessment - Nurse 1 - General Ulcer Measurement Start: 05/22/17 13:49 Freq: Status: Active Protocol: Activity Type Activity Date Activity User E-Sign Co-Sign Detail Recorded Client Recorded Date Recorded By Document 05/29/17 14:21 DV [id number] 05/29/17 14:25 DV 05/29/17 14:21 Wound Center Nurse 1 [Ulcer Assessment Protocol: WC.WD.LOC] #7- Stage III pressure ulcer RT GLUTEAL FOLD -Combined with other wound No -Current Size (cm) - Length 4.2 -Current Size (cm) - Width 3.0 -Current Size (cm) - Depth 0.7 -Total Square Cm 12.60 -Photo Taken No -Epithelialization None Present -Undermining/Tunneling No -Circular Undermining No -Classification - Thickness Full Thickness without Exposed Support Structure -Exudate Amt Medium (34-66%) -Exudate Type Serosanguineous -Wound Margin Distinct, Outline Attached -Granulation Amt Medium (34-66%) -Granulation Quality [place] -Slough/Fibrin Yes -Necrosis Amt Medium (34-66%) -Necrotic Tissue Type Adherent Slough -Structure Exposed None/Limited to Skin Breakdown -Texture (Amirah-wound Skin Appearance) Assessed Scarring -Moisture (Amirah-wound Skin Appearance Assessed ) Maceration -Color (Amirah-wound Skin Appearance) No Abnormality Assessed -Temperature (Amirah-wound Skin No Abnormality Appearance) (Pt Warm) -Tenderness on Palpation (Amirah-wound No Skin Appearance) -Ulcer Cleansing Rinsed/ Irrigated with Saline -Foul Odor after Cleansing No -Anesthetic Used 5% Lidocaine Gel WC - Nurse 2 - General Ulcer CM Notes Start: 05/22/17 13:49 Freq: Status: Active Protocol: Activity Type Activity Date Activity User E-Sign Co-Sign Detail Recorded Client Recorded Date Recorded By Document 05/29/17 14:55 [id number] 05/29/17 15:10 TM 05/29/17 14:55 Wound Center Nurse 2 [Procedure/Treatment] #8 left posterior upper thigh -Time 15:00 -Correct Patient Yes -Correct Side, Site, Position Yes -Correct Procedure Yes -Procedure Performed Yes -Type of Procedure Debridement -Clinical Debridement Subcutaneous -Post Debridement Size (cm) - Length 0.8 -Post Debridement Size (cm) - Width 1.3 -Post Debridement Size (cm) - Depth 0.1 -Total Square Cm 1.04 -Wound/Ulcer Outcome Not Healed -Ulcer Cleansing Rinsed/ Irrigated with Saline -Foul Odor after Cleansing No -Bioengineered Tissue No -Topical Lidocaine (%) 5 -Bleeding Controlled with Pressure -Treatment Response Procedure Tolerated Well #7- Stage III pressure ulcer RT GLUTEAL FOLD -Time 15:10 -Correct Patient Yes -Correct Side, Site, Position Yes -Correct Procedure Yes -Procedure Performed Yes -Type of Procedure Debridement -Clinical Debridement Subcutaneous -Post Debridement Size (cm) - Length 4.2 -Post Debridement Size (cm) - Width 3.6 -Post Debridement Size (cm) - Depth 3.0 -Total Square Cm 15.12 -Wound/Ulcer Outcome Not Healed -Ulcer Cleansing Rinsed/ Irrigated with Saline -Foul Odor after Cleansing No -Bioengineered Tissue No -Topical Lidocaine (%) 5 -Bleeding Controlled with Pressure -Treatment Response Procedure Tolerated Well [See Physician Procedure note for Specifics] Pain Scale: 0-10 Numeric [Pain] -Is Patient Pain Free? Yes Psych/Mental Status: Normal Affect, Appropriate Debridement Note Post-Debridement Measurements/Treatment WC - Nurse 2 - General Ulcer CM Notes Start: 05/22/17 13:49 Freq: Status: Active Protocol: Activity Type Activity Date Activity User E-Sign Co-Sign Detail Recorded Client Recorded Date Recorded By Document 05/22/17 14:36 TM [id number] 05/22/17 14:44 TM Document 05/29/17 14:55 TM [id number] 05/29/17 15:10 TM 05/22/17 05/29/17 14:36 14:55 Wound Center Nurse 2 #8 left posterior upper thigh -Time 15:00 -Correct Patient Yes -Correct Side, Site, Position Yes -Correct Procedure Yes -Procedure Performed Yes -Type of Procedure Debridement -Clinical Debridement Subcutaneous -Post Debridement Size (cm) - Length 0.8 -Post Debridement Size (cm) - Width 1.3 -Post Debridement Size (cm) - Depth 0.1 -Total Square Cm 1.04 -Wound/Ulcer Outcome Not Healed -Ulcer Cleansing Rinsed/ Irrigated with Saline -Foul Odor after Cleansing No -Bioengineered Tissue No -Topical Lidocaine (%) 5 -Bleeding Controlled with Pressure -Treatment Response Procedure Tolerated Well #7- Stage III pressure ulcer RT GLUTEAL FOLD -Time 14:36 15:10 -Correct Patient Yes Yes -Correct Side, Site, Position Yes Yes -Correct Procedure Yes Yes -Procedure Performed Yes Yes -Type of Procedure Debridement Debridement -Clinical Debridement Subcutaneous Subcutaneous -Post Debridement Size (cm) - Length 4.2 4.2 -Post Debridement Size (cm) - Width 3.2 3.6 -Post Debridement Size (cm) - Depth 0.2 3.0 -Total Square Cm 13.44 15.12 -Wound/Ulcer Outcome Not Healed Not Healed -Ulcer Cleansing Rinsed/ Rinsed/ Irrigated with Irrigated with Saline Saline -Foul Odor after Cleansing No No -Bioengineered Tissue No No -Cetacaine [place] No -Topical Lidocaine (%) 5 5 -Bleeding Controlled with Pressure Pressure -Treatment Response Procedure Procedure Tolerated Well Tolerated Well #2 L buttocks stage IV -Time 14:37 -Correct Patient Yes -Correct Side, Site, Position Yes -Correct Procedure Yes -Procedure Performed Yes -Wound/Ulcer Outcome Not Healed -Ulcer Cleansing Rinsed/ Irrigated with Saline -Foul Odor after Cleansing No -Bioengineered Tissue No -Cetacaine [place] No -Bleeding Controlled with NA -Other no debridement today -Treatment Response Procedure Tolerated Well Pain Scale: 0-10 Numeric Is Patient Pain Free? Yes Yes Wound debrided: left posterior upper thigh Laterality: Left Type of Debridement: Excisional debridement Anesthesia Used: 4% Lidocaine Solution Depth: Down to and including healthy tissue, in the subcutaneous layer Percentage of wound debrided: 100 Instrument Used: 5mm curette Tissue Removed: yellow slough, devitalized tissue Severity: Fat Layer Exposed Amount of bleeding with debridement: Mild Bleeding Controlled with: Compression and gauze Patient tolerated procedure well - Additional Wound Wound debrided: Stage III pressure ulcer right gluteal fold Laterality: Right Wound Grade/Stage: stage III Type of Debridement: Excisional debridement Anesthesia Used: 4% Lidocaine Solution Depth: Down to and including healthy tissue, in the subcutaneous layer Percentage of wound debrided: 100 Instrument Used: 5mm curette, #15 blade, Forceps Tissue Removed: yellow slough, devitalized tissue Severity: Fat Layer Exposed Amount of bleeding with debridement: Moderate Bleeding Controlled with: Compression and gauze, Silver Nitrate Patient tolerated procedure: Patient tolerated procedure well Assessment/Plan Active Problems Open wound of left thigh (Acute) traumatic skin tear posterior thigh Pressure ulcer of right buttock, stage 3 (Chronic) Diabetic neuropathy, type II diabetes mellitus (Chronic) Malnutrition (Chronic) Spinal stenosis (Chronic) Assessment: Pressure ulcer of the left buttock -non healing, despite several deep OR debridements, has not been willing to stay in bed and keep off of wound,and refuses to consider having a muscle flap since it would entail 6 wks in a bed in a [facility] which she thinks would cause more deconditioning and require another few months to restrore her ambulation. wound is remaining free of infection and is not increasing in size but is stable. Right gluteal fold pressure ulcer stage III - healed. left Buttock/ischial ulcer stage III - healed Plan: Right buttock and left posterior thigh wound debrided today. Right buttock wound still with focal area of necrotic fatty tissue that was removed with 11 blade and scalpel. She will complete Ciprofloxacin and was prescrobed Flagyl to treat anaerobic cocci that may not have been covered with Augmentin. Right buttock/gluteal fold and left posterior thigh will be treated with Rain. Continue with aquacel daily wound packing to left buttocks. Encouraged to increase protein intake to aid in wound healing and maintain good control of diabetes. Discussed offloading importance in wound healing. F/U in 1 week. Nursing notes reviewed.
--- NOTE | 2017-05-29 17:27 | PN.PCM_ITS ---
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: unspecified half-way insulin use status Code(s): E11.40 - Type 2 diabetes mellitus with diabetic neuropathy, unspecified (4) Pressure ulcer of right buttock, stage 3 Status: Chronic Current Visit: Yes Code(s): L89.313 - Pressure ulcer of right buttock, stage 3 (5) Open wound of left thigh Status: Acute Current Visit: Yes Qualifiers: Encounter type: initial encounter Qualified Code(s): S71.102A - Unspecified open wound, left thigh, initial encounter Code(s): S71.102A - Unspecified open wound, left thigh, initial encounter Comment: traumatic skin tear posterior thigh Type of Wound Date of Service: 05/29/17 Chief Complaint: Left ischial pressure sore, Stage IV. Spinal cord stenosis History of Wound: Patient is a 64-year-old female who has a chronic pressure ulcer of her left ischium. Patient was initially hospitalized for a swelling and redness of her right leg approximately 2014. This was evaluated for cellulitis. She was seen in consultation by infectious disease and plastic surgery. The patient was taken to surgery for an operative debridement of her chronic left ischial ulcer, underwent wound vac treatment and IV antibiotics. She was abruptly released from the F after only a few wks, before end of therapy. She had finished her IV antibiotics for Grp A strep osteomyelitis at home and continued with PT at home as well. She has decided to go with the conservative care route since she feels that her quality of life is more important than healing out the wound but had continued to keep the wound vac. The wound vac was discontinued by her insurance for failure to show improvement in the size of her wound. She has been being seen monthly for conservative/ palliative care of her pressure ulcer of her left ischium. She has home health visiting weekly to assess her wound and monthly visits to the wound center. She has been tolerating this treatment well. She has recently started getting pressure ulcers of her right buttocks. January 2017, she underwent treatment after developing pressure ulcers which occurred from urinary incontinence issues associated with a chronic UTI and leakage of her catheter. She developed another pressure ulcer of her right buttock on or around April 20, 2017 and presents for treatment of this area as well as continued treatment of her left ischial pressure ulcer. She has been using Rain to the right buttock and continues to use Aquacel to the left ischium/buttock. Denies fever, chills or increased pain. Progress of Wound: Patient continues with conservative care management of left ischium - aquacel dressing to wound daily. No concerns for infection in this pressure ulcer at this time. The pressure ulcer of her right gluteal fold is worsened. She also developed some skin tears after seeing RN PSYCH this week when they were positioning her on the exam table. Wound cultures were positive for Proteus, Pseudomonas, E. faecalis and anaerobic cocci. She is finished with Augmentin that was prescribed and is partway through her ciprofloxacin prescription. She denies increased pain or increased drainage. She continues to sit in her wheelchair frequently for long periods of time but has tried to offload more. - Physical Exam Vital Signs Temp Pulse Resp BP 98.4 F 102 H 16 108/73 05/29/17 14:21 05/29/17 14:21 05/29/17 14:21 05/29/17 14:21 General: Alert, Oriented x3, Cooperative, No apparent distress HEENT: Atraumatic, Normocephalic Oral: Moist Mucosa Abdomen: Soft, Non Tender, Obese Skin: Ulcer/ Wound Wound Measurements and Assessment - Nurse 1 - General Ulcer Measurement Start: 05/22/17 13:49 Freq: Status: Active Protocol: Activity Type Activity Date Activity User E-Sign Co-Sign Detail Recorded Client Recorded Date Recorded By Document 05/29/17 14:21 DV [id number] 05/29/17 14:25 DV 05/29/17 14:21 Wound Center Nurse 1 [Ulcer Assessment Protocol: WC.WD.LOC] #7- Stage III pressure ulcer RT GLUTEAL FOLD -Combined with other wound No -Current Size (cm) - Length 4.2 -Current Size (cm) - Width 3.0 -Current Size (cm) - Depth 0.7 -Total Square Cm 12.60 -Photo Taken No -Epithelialization None Present -Undermining/Tunneling No -Circular Undermining No -Classification - Thickness Full Thickness without Exposed Support Structure -Exudate Amt Medium (34-66%) -Exudate Type Serosanguineous -Wound Margin Distinct, Outline Attached -Granulation Amt Medium (34-66%) -Granulation Quality [place] -Slough/Fibrin Yes -Necrosis Amt Medium (34-66%) -Necrotic Tissue Type Adherent Slough -Structure Exposed None/Limited to Skin Breakdown -Texture (Amirah-wound Skin Appearance) Assessed Scarring -Moisture (Amirah-wound Skin Appearance Assessed ) Maceration -Color (Amirah-wound Skin Appearance) No Abnormality Assessed -Temperature (Amirah-wound Skin No Abnormality Appearance) (Pt Warm) -Tenderness on Palpation (Amirah-wound No Skin Appearance) -Ulcer Cleansing Rinsed/ Irrigated with Saline -Foul Odor after Cleansing No -Anesthetic Used 5% Lidocaine Gel WC - Nurse 2 - General Ulcer CM Notes Start: 05/22/17 13:49 Freq: Status: Active Protocol: Activity Type Activity Date Activity User E-Sign Co-Sign Detail Recorded Client Recorded Date Recorded By Document 05/29/17 14:55 [id number] 05/29/17 15:10 TM 05/29/17 14:55 Wound Center Nurse 2 [Procedure/Treatment] #8 left posterior upper thigh -Time 15:00 -Correct Patient Yes -Correct Side, Site, Position Yes -Correct Procedure Yes -Procedure Performed Yes -Type of Procedure Debridement -Clinical Debridement Subcutaneous -Post Debridement Size (cm) - Length 0.8 -Post Debridement Size (cm) - Width 1.3 -Post Debridement Size (cm) - Depth 0.1 -Total Square Cm 1.04 -Wound/Ulcer Outcome Not Healed -Ulcer Cleansing Rinsed/ Irrigated with Saline -Foul Odor after Cleansing No -Bioengineered Tissue No -Topical Lidocaine (%) 5 -Bleeding Controlled with Pressure -Treatment Response Procedure Tolerated Well #7- Stage III pressure ulcer RT GLUTEAL FOLD -Time 15:10 -Correct Patient Yes -Correct Side, Site, Position Yes -Correct Procedure Yes -Procedure Performed Yes -Type of Procedure Debridement -Clinical Debridement Subcutaneous -Post Debridement Size (cm) - Length 4.2 -Post Debridement Size (cm) - Width 3.6 -Post Debridement Size (cm) - Depth 3.0 -Total Square Cm 15.12 -Wound/Ulcer Outcome Not Healed -Ulcer Cleansing Rinsed/ Irrigated with Saline -Foul Odor after Cleansing No -Bioengineered Tissue No -Topical Lidocaine (%) 5 -Bleeding Controlled with Pressure -Treatment Response Procedure Tolerated Well [See Physician Procedure note for Specifics] Pain Scale: 0-10 Numeric [Pain] -Is Patient Pain Free? Yes Psych/Mental Status: Normal Affect, Appropriate Debridement Note Post-Debridement Measurements/Treatment WC - Nurse 2 - General Ulcer CM Notes Start: 05/22/17 13:49 Freq: Status: Active Protocol: Activity Type Activity Date Activity User E-Sign Co-Sign Detail Recorded Client Recorded Date Recorded By Document 05/22/17 14:36 TM [id number] 05/22/17 14:44 TM Document 05/29/17 14:55 [id number] 05/29/17 15:10 TM 05/22/17 05/29/17 14:36 14:55 Wound Center Nurse 2 #8 left posterior upper thigh -Time 15:00 -Correct Patient Yes -Correct Side, Site, Position Yes -Correct Procedure Yes -Procedure Performed Yes -Type of Procedure Debridement -Clinical Debridement Subcutaneous -Post Debridement Size (cm) - Length 0.8 -Post Debridement Size (cm) - Width 1.3 -Post Debridement Size (cm) - Depth 0.1 -Total Square Cm 1.04 -Wound/Ulcer Outcome Not Healed -Ulcer Cleansing Rinsed/ Irrigated with Saline -Foul Odor after Cleansing No -Bioengineered Tissue No -Topical Lidocaine (%) 5 -Bleeding Controlled with Pressure -Treatment Response Procedure Tolerated Well #7- Stage III pressure ulcer RT GLUTEAL FOLD -Time 14:36 15:10 -Correct Patient Yes Yes -Correct Side, Site, Position Yes Yes -Correct Procedure Yes Yes -Procedure Performed Yes Yes -Type of Procedure Debridement Debridement -Clinical Debridement Subcutaneous Subcutaneous -Post Debridement Size (cm) - Length 4.2 4.2 -Post Debridement Size (cm) - Width 3.2 3.6 -Post Debridement Size (cm) - Depth 0.2 3.0 -Total Square Cm 13.44 15.12 -Wound/Ulcer Outcome Not Healed Not Healed -Ulcer Cleansing Rinsed/ Rinsed/ Irrigated with Irrigated with Saline Saline -Foul Odor after Cleansing No No -Bioengineered Tissue No No -Cetacaine [place] No -Topical Lidocaine (%) 5 5 -Bleeding Controlled with Pressure Pressure -Treatment Response Procedure Procedure Tolerated Well Tolerated Well #2 L buttocks stage IV -Time 14:37 -Correct Patient Yes -Correct Side, Site, Position Yes -Correct Procedure Yes -Procedure Performed Yes -Wound/Ulcer Outcome Not Healed -Ulcer Cleansing Rinsed/ Irrigated with Saline -Foul Odor after Cleansing No -Bioengineered Tissue No -Cetacaine [place] No -Bleeding Controlled with NA -Other no debridement today -Treatment Response Procedure Tolerated Well Pain Scale: 0-10 Numeric Is Patient Pain Free? Yes Yes Wound debrided: left posterior upper thigh Laterality: Left Type of Debridement: Excisional debridement Anesthesia Used: 4% Lidocaine Solution Depth: Down to and including healthy tissue, in the subcutaneous layer Percentage of wound debrided: 100 Instrument Used: 5mm curette Tissue Removed: yellow slough, devitalized tissue Severity: Fat Layer Exposed Amount of bleeding with debridement: Mild Bleeding Controlled with: Compression and gauze Patient tolerated procedure well - Additional Wound Wound debrided: Stage III pressure ulcer right gluteal fold Laterality: Right Wound Grade/Stage: stage III Type of Debridement: Excisional debridement Anesthesia Used: 4% Lidocaine Solution Depth: Down to and including healthy tissue, in the subcutaneous layer Percentage of wound debrided: 100 Instrument Used: 5mm curette, #15 blade, Forceps Tissue Removed: yellow slough, devitalized tissue Severity: Fat Layer Exposed Amount of bleeding with debridement: Moderate Bleeding Controlled with: Compression and gauze, Silver Nitrate Patient tolerated procedure: Patient tolerated procedure well Assessment/Plan Active Problems Open wound of left thigh (Acute) traumatic skin tear posterior thigh Pressure ulcer of right buttock, stage 3 (Chronic) Diabetic neuropathy, type II diabetes mellitus (Chronic) Malnutrition (Chronic) Spinal stenosis (Chronic) Assessment: Pressure ulcer of the left buttock -non healing, despite several deep OR debridements, has not been willing to stay in bed and keep off of wound, and refuses to consider having a muscle flap since it would entail 6 wks in a bed in a [facility] which she thinks would cause more deconditioning and require another few months to restrore her ambulation. wound is remaining free of infection and is not increasing in size but is stable. Right gluteal fold pressure ulcer stage III - healed. left Buttock/ischial ulcer stage III - healed Plan: Right buttock and left posterior thigh wound debrided today. Right buttock wound still with focal area of necrotic fatty tissue that was removed with 11 blade and scalpel. She will complete Ciprofloxacin and was prescrobed Flagyl to treat anaerobic cocci that may not have been covered with Augmentin. Right buttock/gluteal fold and left posterior thigh will be treated with Rain. Continue with aquacel daily wound packing to left buttocks. Encouraged to increase protein intake to aid in wound healing and maintain good control of diabetes. Discussed offloading importance in wound healing. F/U in 1 week. Nursing notes reviewed.
[2017-06-05 13:50] VITALS: BP 130/70; PULSE 111; RESP 18; TEMP 36.9
--- NOTE | 2017-06-05 18:51 | PCM.WC.PN ---
(1) Spinal stenosis Status: Chronic Current Visit: Yes Qualifiers: Spinal region: lumbosacral Code(s): M48.00 - Spinal stenosis, site unspecified (2) Malnutrition Status: Chronic Current Visit: Yes Qualifiers: Malnutrition type: protein-calorie malnutrition Protein-calorie malnutrition severity: mild Qualified Code(s): E44.1 - Mild protein-calorie malnutrition Code(s): E46 - Unspecified protein-calorie malnutrition (3) Diabetic neuropathy, type II diabetes mellitus Status: Chronic Current Visit: Yes Qualifiers: Diabetes mellitus terminal worker insulin use: unspecified halfway insulin use status Code(s): E11.40 - Type 2 diabetes mellitus with diabetic neuropathy, unspecified (4) Pressure ulcer of right buttock, stage 3 Status: Chronic Current Visit: Yes Code(s): L89.313 - Pressure ulcer of right buttock, stage 3 (5) Open wound of left thigh Status: Chronic Current Visit: Yes Qualifiers: Encounter type: subsequent encounter Qualified Code(s): S71.102D - Unspecified open wound, left thigh, subsequent encounter Code(s): S71.102A - Unspecified open wound, left thigh, initial encounter Comment: traumatic skin tear posterior thigh Type of Wound Date of Service: 06/05/17 Chief Complaint: Left ischial pressure sore, Stage IV. Spinal cord stenosis History of Wound: Patient is a 64-year-old female who has a chronic pressure ulcer of her left ischium. Patient was initially hospitalized for a swelling and redness of her right leg approximately 2014. This was evaluated for cellulitis. She was seen in consultation by infectious disease and plastic surgery. The patient was taken to surgery for an operative debridement of her chronic left ischial ulcer, underwent wound vac treatment and IV antibiotics. She was abruptly released from the F after only a few wks, before end of therapy. She had finished her IV antibiotics for Grp A strep osteomyelitis at home and continued with PT at home as well. She has decided to go with the conservative care route since she feels that her quality of life is more important than healing out the wound but had continued to keep the wound vac. The wound vac was discontinued by her insurance for failure to show improvement in the size of her wound. She has been being seen monthly for conservative/palliative care of her pressure ulcer of her left ischium. She has home health visiting weekly to assess her wound and monthly visits to the wound center. She has been tolerating this treatment well. She has recently started getting pressure ulcers of her right buttocks. January 2017, she underwent treatment after developing pressure ulcers which occurred from urinary incontinence issues associated with a chronic UTI and leakage of her catheter. She developed another pressure ulcer of her right buttock on or around April 20, 2017 and presents for treatment of this area as well as continued treatment of her left ischial pressure ulcer. She has been using Rain to the right buttock and continues to use Aquacel to the left ischium/buttock. Denies fever, chills or increased pain. Progress of Wound: Patient continues with conservative care management of left ischium - aquacel dressing to wound daily. No concerns for infection in this pressure ulcer at this time. The pressure ulcer of her right gluteal fold is improved after debridement last week. She has had imprtovement of skin tears of left thigh and sacaral area. She denies increased pain or increased drainage. She continues to sit in her wheelchair frequently for long periods of time but has tried to offload more. - Physical Exam Vital Signs Temp Pulse Resp BP 98.4 F 111 H 18 130/70 H 06/05/17 13:50 06/05/17 13:50 06/05/17 13:50 06/05/17 13:50 General: Alert, Oriented x3, Cooperative, No apparent distress HEENT: Atraumatic, Normocephalic Oral: Moist Mucosa Abdomen: Obese Skin: Ulcer/ Wound Wound Measurements and Assessment WC - Nurse 1 - General Ulcer Measurement Start: 05/22/17 13:49 Freq: Status: Active Protocol: Activity Type Activity Date Activity User E-Sign Co-Sign Detail Recorded Client Recorded Date Recorded By Document 06/05/17 13:50 TN [id number] 06/05/17 14:19 TN 06/05/17 13:50 Wound Center Nurse 1 [Ulcer Assessment] #8 left posterior upper thigh -Combined with other wound No -Current Size (cm) - Length 2 -Current Size (cm) - Width 1 -Current Size (cm) - Depth 0.1 -Total Square Cm 2 -Photo Taken No -Epithelialization None Present -Tunneling No -Undermining/Tunneling No -Circular Undermining No -Classification - Thickness Full Thickness without Exposed Support Structure -Exudate Amt Medium (34-66%) -Exudate Type Serosanguineous -Wound Margin Distinct, Outline Attached -Granulation Amt Small (1-33%) -Granulation Quality [place] -Slough/Fibrin Yes -Necrotic Tissue Type Adherent Slough -Structure Exposed None/Limited to Skin Breakdown -Texture (Amirah-wound Skin Appearance) Assessed -Moisture (Amirah-wound Skin Appearance No Abnormality ) Assessed -Color (Amirah-wound Skin Appearance) Assessed [place] -Temperature (Amirah-wound Skin No Abnormality Appearance) (Pt Warm) -Tenderness on Palpation (Amirah-wound No Skin Appearance) -Ulcer Cleansing Rinsed/ Irrigated with Saline -Foul Odor after Cleansing No -Anesthetic Used 5% Lidocaine Gel #7- Stage III pressure ulcer RT GLUTEAL FOLD -Combined with other wound No -Current Size (cm) - Length 3.2 -Current Size (cm) - Width 2.8 -Current Size (cm) - Depth 3.5 -Total Square Cm 8.96 -Date of Last Picture (Recall this 06/05/17 field) -Photo Taken Yes -Epithelialization None Present -Tunneling No -Undermining/Tunneling No -Circular Undermining No -Classification - Thickness Full Thickness without Exposed Support Structure -Exudate Amt Large (67-100%) -Exudate Type Serosanguineous -Wound Margin Distinct, Outline Attached -Granulation Amt Small (1-33%) -Granulation Quality Red -Slough/Fibrin Yes -Necrotic Tissue Type Adherent Slough -Structure Exposed None/Limited to Skin Breakdown -Texture (Amirah-wound Skin Appearance) No Abnormality Assessed -Moisture (Amirah-wound Skin Appearance No Abnormality ) Assessed -Color (Amirah-wound Skin Appearance) Assessed [place] -Temperature (Amirah-wound Skin No Abnormality Appearance) (Pt Warm) -Tenderness on Palpation (Amirah-wound No Skin Appearance) -Ulcer Cleansing Rinsed/ Irrigated with Saline -Foul Odor after Cleansing No -Anesthetic Used 5% Lidocaine Gel #2 L buttocks stage IV -Combined with other wound No -Current Size (cm) - Length 0.1 -Current Size (cm) - Width 0.1 -Current Size (cm) - Depth 0.2 -Total Square Cm 0.01 -Photo Taken No -Tunneling No -Undermining/Tunneling No -Circular Undermining No -Classification - Thickness Full Thickness without Exposed Support Structure -Exudate Amt Small (1-33%) -Exudate Type Sanguineous -Wound Margin Indistinct, Non -Visible -Granulation Amt None Present (0 %) -Slough/Fibrin Yes -Necrotic Tissue Type Adherent Slough -Structure Exposed None/Limited to Skin Breakdown -Texture (Amirah-wound Skin Appearance) No Abnormality Assessed -Moisture (Amirah-wound Skin Appearance Assessed ) Maceration -Color (Amirah-wound Skin Appearance) Assessed [place] -Temperature (Amirah-wound Skin No Abnormality Appearance) (Pt Warm) -Tenderness on Palpation (Amirah-wound No Skin Appearance) -Ulcer Cleansing Rinsed/ Irrigated with Saline -Foul Odor after Cleansing No -Anesthetic Used 5% Lidocaine Gel [Edema Assessment] -Lower Limb Edema Present No WC - Nurse 2 - General Ulcer CM Notes Start: 05/22/17 13:49 Freq: Status: Active Protocol: Activity Type Activity Date Activity User E-Sign Co-Sign Detail Recorded Client Recorded Date Recorded By Document 06/05/17 15:44 TM [id number] 06/05/17 15:58 TM 06/05/17 15:44 Wound Center Nurse 2 [Procedure/Treatment] #8 left posterior upper thigh -Time 15:44 -Correct Patient Yes -Correct Side, Site, Position Yes -Correct Procedure Yes -Procedure Performed Yes -Type of Procedure Debridement -Clinical Debridement Subcutaneous -Post Debridement Size (cm) - Length 1.8 -Post Debridement Size (cm) - Width 0.3 -Post Debridement Size (cm) - Depth 0.1 -Total Square Cm 0.54 -Wound/Ulcer Outcome Not Healed -Ulcer Cleansing Rinsed/ Irrigated with Saline -Foul Odor after Cleansing No -Bioengineered Tissue No -Topical Lidocaine (%) 5 -Bleeding Controlled with Pressure -Treatment Response Procedure Tolerated Well #7- Stage III pressure ulcer RT GLUTEAL FOLD -Time 15:45 -Correct Patient Yes -Correct Side, Site, Position Yes -Correct Procedure Yes -Procedure Performed Yes -Type of Procedure Debridement -Clinical Debridement Subcutaneous -Post Debridement Size (cm) - Length 3.8 -Post Debridement Size (cm) - Width 3.0 -Post Debridement Size (cm) - Depth 3.5 -Total Square Cm 11.40 -Wound/Ulcer Outcome Not Healed -Ulcer Cleansing Rinsed/ Irrigated with Saline -Foul Odor after Cleansing No -Bioengineered Tissue No -Topical Lidocaine (%) 5 -Bleeding Controlled with Pressure -Treatment Response Procedure Tolerated Well #2 L buttocks stage IV -Time 15:45 -Correct Patient Yes -Correct Side, Site, Position Yes -Correct Procedure Yes -Procedure Performed Yes -Type of Procedure Debridement -Clinical Debridement Subcutaneous -Post Debridement Size (cm) - Length 0.5 -Post Debridement Size (cm) - Width 0.2 -Post Debridement Size (cm) - Depth 0.5 -Total Square Cm 0.10 -Wound/Ulcer Outcome Not Healed -Ulcer Cleansing Rinsed/ Irrigated with Saline -Foul Odor after Cleansing No -Bioengineered Tissue No -Topical Lidocaine (%) 5 -Bleeding Controlled with Pressure -Treatment Response Procedure Tolerated Well [See Physician Procedure note for Specifics] Pain Scale: 0-10 Numeric [Pain] -Is Patient Pain Free? Yes Neurological: Unsteady Gait Psych/Mental Status: Normal Affect, Appropriate Debridement Note Post-Debridement Measurements/Treatment WC - Nurse 2 - General Ulcer CM Notes Start: 05/22/17 13:49 Freq: Status: Active Protocol: Activity Type Activity Date Activity User E-Sign Co-Sign Detail Recorded Client Recorded Date Recorded By Document 05/22/17 14:36 [id number] 05/22/17 14:44 TM Document 05/29/17 14:55 TM [id number] 05/29/17 15:10 TM Document 06/05/17 15:44 TM [id number] 06/05/17 15:58 TM 05/22/17 05/29/17 06/05/17 14:36 14:55 15:44 Wound Center Nurse 2 #8 left posterior upper thigh -Time 15:00 15:44 -Correct Patient Yes Yes -Correct Side, Site, Position Yes Yes -Correct Procedure Yes Yes -Procedure Performed Yes Yes -Type of Procedure Debridement Debridement -Clinical Debridement Subcutaneous Subcutaneous -Post Debridement Size (cm) - Length 0.8 1.8 -Post Debridement Size (cm) - Width 1.3 0.3 -Post Debridement Size (cm) - Depth 0.1 0.1 -Total Square Cm 1.04 0.54 -Wound/Ulcer Outcome Not Healed Not Healed -Ulcer Cleansing Rinsed/ Rinsed/ Irrigated with Irrigated with Saline Saline -Foul Odor after Cleansing No No -Bioengineered Tissue No No -Topical Lidocaine (%) 5 5 -Bleeding Controlled with Pressure Pressure -Treatment Response Procedure Procedure Tolerated Well Tolerated Well #7- Stage III pressure ulcer RT GLUTEAL FOLD -Time 14:36 15:10 15:45 -Correct Patient Yes Yes Yes -Correct Side, Site, Position Yes Yes Yes -Correct Procedure Yes Yes Yes -Procedure Performed Yes Yes Yes -Type of Procedure Debridement Debridement Debridement -Clinical Debridement Subcutaneous Subcutaneous Subcutaneous -Post Debridement Size (cm) - Length 4.2 4.2 3.8 -Post Debridement Size (cm) - Width 3.2 3.6 3.0 -Post Debridement Size (cm) - Depth 0.2 3.0 3.5 -Total Square Cm 13.44 15.12 11.40 -Wound/Ulcer Outcome Not Healed Not Healed Not Healed -Ulcer Cleansing Rinsed/ Rinsed/ Rinsed/ Irrigated with Irrigated with Irrigated with Saline Saline Saline -Foul Odor after Cleansing No No No -Bioengineered Tissue No No No -Cetacaine [place] No -Topical Lidocaine (%) 5 5 5 -Bleeding Controlled with Pressure Pressure Pressure -Treatment Response Procedure Procedure Procedure Tolerated Well Tolerated Well Tolerated Well #2 L buttocks stage IV -Time 14:37 15:45 -Correct Patient Yes Yes -Correct Side, Site, Position Yes Yes -Correct Procedure Yes Yes -Procedure Performed Yes Yes -Type of Procedure Debridement -Clinical Debridement Subcutaneous -Post Debridement Size (cm) - Length 0.5 -Post Debridement Size (cm) - Width 0.2 -Post Debridement Size (cm) - Depth 0.5 -Total Square Cm 0.10 -Wound/Ulcer Outcome Not Healed Not Healed -Ulcer Cleansing Rinsed/ Rinsed/ Irrigated with Irrigated with Saline Saline -Foul Odor after Cleansing No No -Bioengineered Tissue No No -Cetacaine [place] No -Topical Lidocaine (%) 5 -Bleeding Controlled with NA Pressure -Other no debridement today -Treatment Response Procedure Procedure Tolerated Well Tolerated Well Pain Scale: 0-10 Numeric Is Patient Pain Free? Yes Yes Yes Wound debrided: left posterior upper thigh Laterality: Left Type of Debridement: Excisional debridement Anesthesia Used: 4% Lidocaine Solution Depth: Down to and including healthy tissue, in the subcutaneous layer Percentage of wound debrided: 100 Instrument Used: 5mm curette Tissue Removed: yellow slough and devitalized tissue Severity: Fat Layer Exposed Amount of bleeding with debridement: Mild Bleeding Controlled with: Compression and gauze Patient tolerated procedure well - Additional Wound Wound debrided: Stage III right gluteal fold Laterality: Right Wound Grade/Stage: Stage III Type of Debridement: Excisional debridement Depth: Down to and including healthy tissue, in the subcutaneous layer Percentage of wound debrided: 100 Instrument Used: 5mm curette, #15 blade, Forceps Tissue Removed: yellow slough and devitalized tissue Severity: Fat Layer Exposed Amount of bleeding with debridement: Mild Bleeding Controlled with: Compression and gauze Patient tolerated procedure: Patient tolerated procedure well - Additional Wound Wound debrided: left buttocks stage IV Laterality: Left Wound Grade/Stage: Stage IV Type of Debridement: Excisional debridement Anesthesia Used: 4% Lidocaine Solution Depth: Down to and including healthy tissue, in the subcutaneous layer Percentage of wound debrided: 100 Instrument Used: 5mm curette Tissue Removed: yellow slough and devitalized tissue Severity: Fat Layer Exposed Amount of bleeding with debridement: Mild Bleeding Controlled with: Compression and gauze Patient tolerated procedure: Patient tolerated procedure well Assessment/Plan Active Problems Open wound of left thigh (Chronic) traumatic skin tear posterior thigh Pressure ulcer of right buttock, stage 3 (Chronic) Diabetic neuropathy, type II diabetes mellitus (Chronic) Malnutrition (Chronic) Spinal stenosis (Chronic) Assessment: Pressure ulcer of the left buttock -non healing, despite several deep OR debridements, has not been willing to stay in bed and keep off of wound,and refuses to consider having a muscle flap since it would entail 6 wks in a bed in a F which she thinks would cause more deconditioning and require another few months to restrore her ambulation. wound is remaining free of infection and is not increasing in size but is stable. Right gluteal fold pressure ulcer stage III - healed. left Buttock/ischial ulcer stage III - healed Plan: All wounds debrided today. Right buttock wound shows improvement in tissue. She will complete Ciprofloxacin and Flagyl. Left posterior thigh will be treated with Rain. Continue with aquacel daily wound packing to left buttocks and will use Aquacel to the right gluteal fold as well. Encouraged to increase protein intake to aid in wound healing and maintain good control of diabetes. Discussed offloading importance in wound healing. F/U in 1 week. Nursing notes reviewed.
--- NOTE | 2017-06-05 18:57 | PN.PCM_ITS ---
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 snf insulin use status Code(s): E11.40 - Type 2 diabetes mellitus with diabetic neuropathy, unspecified (4) Pressure ulcer of right buttock, stage 3 Status: Chronic Current Visit: Yes Code(s): L89.313 - Pressure ulcer of right buttock, stage 3 (5) Open wound of left thigh Status: Chronic Current Visit: Yes Qualifiers: Encounter type: subsequent encounter Qualified Code(s): S71.102D - Unspecified open wound, left thigh, subsequent encounter Code(s): S71.102A - Unspecified open wound, left thigh, initial encounter Comment: traumatic skin tear posterior thigh Type of Wound Date of Service: 06/05/17 Chief Complaint: Left ischial pressure sore, Stage IV. Spinal cord stenosis History of Wound: Patient is a 64-year-old female who has a chronic pressure ulcer of her left ischium. Patient was initially hospitalized for a swelling and redness of her right leg approximately 2014. This was evaluated for cellulitis. She was seen in consultation by infectious disease and plastic surgery. The patient was taken to surgery for an operative debridement of her chronic left ischial ulcer, underwent wound vac treatment and IV antibiotics. She was abruptly released from the F after only a few wks, before end of therapy. She had finished her IV antibiotics for Grp A strep osteomyelitis at home and continued with PT at home as well. She has decided to go with the conservative care route since she feels that her quality of life is more important than healing out the wound but had continued to keep the wound vac. The wound vac was discontinued by her insurance for failure to show improvement in the size of her wound. She has been being seen monthly for conservative/ palliative care of her pressure ulcer of her left ischium. She has home health visiting weekly to assess her wound and monthly visits to the wound center. She has been tolerating this treatment well. She has recently started getting pressure ulcers of her right buttocks. January 2017, she underwent treatment after developing pressure ulcers which occurred from urinary incontinence issues associated with a chronic UTI and leakage of her catheter. She developed another pressure ulcer of her right buttock on or around April 20, 2017 and presents for treatment of this area as well as continued treatment of her left ischial pressure ulcer. She has been using Rain to the right buttock and continues to use Aquacel to the left ischium/buttock. Denies fever, chills or increased pain. Progress of Wound: Patient continues with conservative care management of left ischium - aquacel dressing to wound daily. No concerns for infection in this pressure ulcer at this time. The pressure ulcer of her right gluteal fold is improved after debridement last week. She has had imprtovement of skin tears of left thigh and sacaral area. She denies increased pain or increased drainage. She continues to sit in her wheelchair frequently for long periods of time but has tried to offload more. - Physical Exam Vital Signs Temp Pulse Resp BP 98.4 F 111 H 18 130/70 H 06/05/17 13:50 06/05/17 13:50 06/05/17 13:50 06/05/17 13:50 General: Alert, Oriented x3, Cooperative, No apparent distress HEENT: Atraumatic, Normocephalic Oral: Moist Mucosa Abdomen: Obese Skin: Ulcer/ Wound Wound Measurements and Assessment WC - Nurse 1 - General Ulcer Measurement Start: 05/22/17 13:49 Freq: Status: Active Protocol: Activity Type Activity Date Activity User E-Sign Co-Sign Detail Recorded Client Recorded Date Recorded By Document 06/05/17 13:50 TN [id number] 06/05/17 14:19 TN 06/05/17 13:50 Wound Center Nurse 1 [Ulcer Assessment] #8 left posterior upper thigh -Combined with other wound No -Current Size (cm) - Length 2 -Current Size (cm) - Width 1 -Current Size (cm) - Depth 0.1 -Total Square Cm 2 -Photo Taken No -Epithelialization None Present -Tunneling No -Undermining/Tunneling No -Circular Undermining No -Classification - Thickness Full Thickness without Exposed Support Structure -Exudate Amt Medium (34-66%) -Exudate Type Serosanguineous -Wound Margin Distinct, Outline Attached -Granulation Amt Small (1-33%) -Granulation Quality [place] -Slough/Fibrin Yes -Necrotic Tissue Type Adherent Slough -Structure Exposed None/Limited to Skin Breakdown -Texture (Amirah-wound Skin Appearance) Assessed -Moisture (Amirah-wound Skin Appearance No Abnormality ) Assessed -Color (Amirah-wound Skin Appearance) Assessed Erythema -Temperature (Amirah-wound Skin No Abnormality Appearance) (Pt Warm) -Tenderness on Palpation (Amirah-wound No Skin Appearance) -Ulcer Cleansing Rinsed/ Irrigated with Saline -Foul Odor after Cleansing No -Anesthetic Used 5% Lidocaine Gel #7- Stage III pressure ulcer RT GLUTEAL FOLD -Combined with other wound No -Current Size (cm) - Length 3.2 -Current Size (cm) - Width 2.8 -Current Size (cm) - Depth 3.5 -Total Square Cm 8.96 -Date of Last Picture (Recall this 06/05/17 field) -Photo Taken Yes -Epithelialization None Present -Tunneling No -Undermining/Tunneling No -Circular Undermining No -Classification - Thickness Full Thickness without Exposed Support Structure -Exudate Amt Large (67-100%) -Exudate Type Serosanguineous -Wound Margin Distinct, Outline Attached -Granulation Amt Small (1-33%) -Granulation Quality Red -Slough/Fibrin Yes -Necrotic Tissue Type Adherent Slough -Structure Exposed None/Limited to Skin Breakdown -Texture (Amirah-wound Skin Appearance) No Abnormality Assessed -Moisture (Amirah-wound Skin Appearance No Abnormality ) Assessed -Color (Amirah-wound Skin Appearance) Assessed Erythema -Temperature (Amirah-wound Skin No Abnormality Appearance) (Pt Warm) -Tenderness on Palpation (Amirah-wound No Skin Appearance) -Ulcer Cleansing Rinsed/ Irrigated with Saline -Foul Odor after Cleansing No -Anesthetic Used 5% Lidocaine Gel #2 L buttocks stage IV -Combined with other wound No -Current Size (cm) - Length 0.1 -Current Size (cm) - Width 0.1 -Current Size (cm) - Depth 0.2 -Total Square Cm 0.01 -Photo Taken No -Tunneling No -Undermining/Tunneling No -Circular Undermining No -Classification - Thickness Full Thickness without Exposed Support Structure -Exudate Amt Small (1-33%) -Exudate Type Sanguineous -Wound Margin Indistinct, Non -Visible -Granulation Amt None Present (0 %) -Slough/Fibrin Yes -Necrotic Tissue Type Adherent Slough -Structure Exposed None/Limited to Skin Breakdown -Texture (Amirah-wound Skin Appearance) No Abnormality Assessed -Moisture (Amirah-wound Skin Appearance Assessed ) Maceration -Color (Amirah-wound Skin Appearance) Assessed Palor -Temperature (Amirah-wound Skin No Abnormality Appearance) (Pt Warm) -Tenderness on Palpation (Amirah-wound No Skin Appearance) -Ulcer Cleansing Rinsed/ Irrigated with Saline -Foul Odor after Cleansing No -Anesthetic Used 5% Lidocaine Gel [Edema Assessment] -Lower Limb Edema Present No WC - Nurse 2 - General Ulcer CM Notes Start: 05/22/17 13:49 Freq: Status: Active Protocol: Activity Type Activity Date Activity User E-Sign Co-Sign Detail Recorded Client Recorded Date Recorded By Document 06/05/17 15:44 TM [id number] 06/05/17 15:58 TM 06/05/17 15:44 Wound Center Nurse 2 [Procedure/Treatment] #8 left posterior upper thigh -Time 15:44 -Correct Patient Yes -Correct Side, Site, Position Yes -Correct Procedure Yes -Procedure Performed Yes -Type of Procedure Debridement -Clinical Debridement Subcutaneous -Post Debridement Size (cm) - Length 1.8 -Post Debridement Size (cm) - Width 0.3 -Post Debridement Size (cm) - Depth 0.1 -Total Square Cm 0.54 -Wound/Ulcer Outcome Not Healed -Ulcer Cleansing Rinsed/ Irrigated with Saline -Foul Odor after Cleansing No -Bioengineered Tissue No -Topical Lidocaine (%) 5 -Bleeding Controlled with Pressure -Treatment Response Procedure Tolerated Well #7- Stage III pressure ulcer RT GLUTEAL FOLD -Time 15:45 -Correct Patient Yes -Correct Side, Site, Position Yes -Correct Procedure Yes -Procedure Performed Yes -Type of Procedure Debridement -Clinical Debridement Subcutaneous -Post Debridement Size (cm) - Length 3.8 -Post Debridement Size (cm) - Width 3.0 -Post Debridement Size (cm) - Depth 3.5 -Total Square Cm 11.40 -Wound/Ulcer Outcome Not Healed -Ulcer Cleansing Rinsed/ Irrigated with Saline -Foul Odor after Cleansing No -Bioengineered Tissue No -Topical Lidocaine (%) 5 -Bleeding Controlled with Pressure -Treatment Response Procedure Tolerated Well #2 L buttocks stage IV -Time 15:45 -Correct Patient Yes -Correct Side, Site, Position Yes -Correct Procedure Yes -Procedure Performed Yes -Type of Procedure Debridement -Clinical Debridement Subcutaneous -Post Debridement Size (cm) - Length 0.5 -Post Debridement Size (cm) - Width 0.2 -Post Debridement Size (cm) - Depth 0.5 -Total Square Cm 0.10 -Wound/Ulcer Outcome Not Healed -Ulcer Cleansing Rinsed/ Irrigated with Saline -Foul Odor after Cleansing No -Bioengineered Tissue No -Topical Lidocaine (%) 5 -Bleeding Controlled with Pressure -Treatment Response Procedure Tolerated Well [See Physician Procedure note for Specifics] Pain Scale: 0-10 Numeric [Pain] -Is Patient Pain Free? Yes Neurological: Unsteady Gait Psych/Mental Status: Normal Affect, Appropriate Debridement Note Post-Debridement Measurements/Treatment WC - Nurse 2 - General Ulcer CM Notes Start: 05/22/17 13:49 Freq: Status: Active Protocol: Activity Type Activity Date Activity User E-Sign Co-Sign Detail Recorded Client Recorded Date Recorded By Document 05/22/17 14:36 [id number] 05/22/17 14:44 TM Document 05/29/17 14:55 TM [id number] 05/29/17 15:10 TM Document 06/05/17 15:44 TM [id number] 06/05/17 15:58 TM 05/22/17 05/29/17 06/05/17 14:36 14:55 15:44 Wound Center Nurse 2 #8 left posterior upper thigh -Time 15:00 15:44 -Correct Patient Yes Yes -Correct Side, Site, Position Yes Yes -Correct Procedure Yes Yes -Procedure Performed Yes Yes -Type of Procedure Debridement Debridement -Clinical Debridement Subcutaneous Subcutaneous -Post Debridement Size (cm) - Length 0.8 1.8 -Post Debridement Size (cm) - Width 1.3 0.3 -Post Debridement Size (cm) - Depth 0.1 0.1 -Total Square Cm 1.04 0.54 -Wound/Ulcer Outcome Not Healed Not Healed -Ulcer Cleansing Rinsed/ Rinsed/ Irrigated with Irrigated with Saline Saline -Foul Odor after Cleansing No No -Bioengineered Tissue No No -Topical Lidocaine (%) 5 5 -Bleeding Controlled with Pressure Pressure -Treatment Response Procedure Procedure Tolerated Well Tolerated Well #7- Stage III pressure ulcer RT GLUTEAL FOLD -Time 14:36 15:10 15:45 -Correct Patient Yes Yes Yes -Correct Side, Site, Position Yes Yes Yes -Correct Procedure Yes Yes Yes -Procedure Performed Yes Yes Yes -Type of Procedure Debridement Debridement Debridement -Clinical Debridement Subcutaneous Subcutaneous Subcutaneous -Post Debridement Size (cm) - Length 4.2 4.2 3.8 -Post Debridement Size (cm) - Width 3.2 3.6 3.0 -Post Debridement Size (cm) - Depth 0.2 3.0 3.5 -Total Square Cm 13.44 15.12 11.40 -Wound/Ulcer Outcome Not Healed Not Healed Not Healed -Ulcer Cleansing Rinsed/ Rinsed/ Rinsed/ Irrigated with Irrigated with Irrigated with Saline Saline Saline -Foul Odor after Cleansing No No No -Bioengineered Tissue No No No -Cetacaine [place] No -Topical Lidocaine (%) 5 5 5 -Bleeding Controlled with Pressure Pressure Pressure -Treatment Response Procedure Procedure Procedure Tolerated Well Tolerated Well Tolerated Well #2 L buttocks stage IV -Time 14:37 15:45 -Correct Patient Yes Yes -Correct Side, Site, Position Yes Yes -Correct Procedure Yes Yes -Procedure Performed Yes Yes -Type of Procedure Debridement -Clinical Debridement Subcutaneous -Post Debridement Size (cm) - Length 0.5 -Post Debridement Size (cm) - Width 0.2 -Post Debridement Size (cm) - Depth 0.5 -Total Square Cm 0.10 -Wound/Ulcer Outcome Not Healed Not Healed -Ulcer Cleansing Rinsed/ Rinsed/ Irrigated with Irrigated with Saline Saline -Foul Odor after Cleansing No No -Bioengineered Tissue No No -Cetacaine [place] No -Topical Lidocaine (%) 5 -Bleeding Controlled with NA Pressure -Other no debridement today -Treatment Response Procedure Procedure Tolerated Well Tolerated Well Pain Scale: 0-10 Numeric Is Patient Pain Free? Yes Yes Yes Wound debrided: left posterior upper thigh Laterality: Left Type of Debridement: Excisional debridement Anesthesia Used: 4% Lidocaine Solution Depth: Down to and including healthy tissue, in the subcutaneous layer Percentage of wound debrided: 100 Instrument Used: 5mm curette Tissue Removed: yellow slough and devitalized tissue Severity: Fat Layer Exposed Amount of bleeding with debridement: Mild Bleeding Controlled with: Compression and gauze Patient tolerated procedure well - Additional Wound Wound debrided: Stage III right gluteal fold Laterality: Right Wound Grade/Stage: Stage III Type of Debridement: Excisional debridement Depth: Down to and including healthy tissue, in the subcutaneous layer Percentage of wound debrided: 100 Instrument Used: 5mm curette, #15 blade, Forceps Tissue Removed: yellow slough and devitalized tissue Severity: Fat Layer Exposed Amount of bleeding with debridement: Mild Bleeding Controlled with: Compression and gauze Patient tolerated procedure: Patient tolerated procedure well - Additional Wound Wound debrided: left buttocks stage IV Laterality: Left Wound Grade/Stage: Stage IV Type of Debridement: Excisional debridement Anesthesia Used: 4% Lidocaine Solution Depth: Down to and including healthy tissue, in the subcutaneous layer Percentage of wound debrided: 100 Instrument Used: 5mm curette Tissue Removed: yellow slough and devitalized tissue Severity: Fat Layer Exposed Amount of bleeding with debridement: Mild Bleeding Controlled with: Compression and gauze Patient tolerated procedure: Patient tolerated procedure well Assessment/Plan Active Problems Open wound of left thigh (Chronic) traumatic skin tear posterior thigh Pressure ulcer of right buttock, stage 3 (Chronic) Diabetic neuropathy, type II diabetes mellitus (Chronic) Malnutrition (Chronic) Spinal stenosis (Chronic) Assessment: Pressure ulcer of the left buttock -non healing, despite several deep OR debridements, has not been willing to stay in bed and keep off of wound, and refuses to consider having a muscle flap since it would entail 6 wks in a bed in a F which she thinks would cause more deconditioning and require another few months to restrore her ambulation. wound is remaining free of infection and is not increasing in size but is stable. Right gluteal fold pressure ulcer stage III - healed. left Buttock/ischial ulcer stage III - healed Plan: All wounds debrided today. Right buttock wound shows improvement in tissue. She will complete Ciprofloxacin and Flagyl. Left posterior thigh will be treated with Rain. Continue with aquacel daily wound packing to left buttocks and will use Aquacel to the right gluteal fold as well. Encouraged to increase protein intake to aid in wound healing and maintain good control of diabetes. Discussed offloading importance in wound healing. F/U in 1 week. Nursing notes reviewed.
[2017-06-12 12:47] VITALS: BP 122/70; PULSE 105; RESP 18; TEMP 36.4
--- NOTE | 2017-06-12 15:24 | PCM.WC.PN ---
(1) Spinal stenosis Status: Chronic Current Visit: Yes Qualifiers: Spinal region: lumbosacral Code(s): M48.00 - Spinal stenosis, site unspecified (2) Malnutrition Status: Chronic Current Visit: Yes Qualifiers: Malnutrition type: protein-calorie malnutrition Protein-calorie malnutrition severity: mild Qualified Code(s): E44.1 - Mild protein-calorie malnutrition Code(s): E46 - Unspecified protein-calorie malnutrition (3) Diabetic neuropathy, type II diabetes mellitus Status: Chronic Current Visit: Yes Qualifiers: Diabetes mellitus detention insulin use: unspecified detention insulin use status Code(s): E11.40 - Type 2 diabetes mellitus with diabetic neuropathy, unspecified (4) Pressure ulcer of right buttock, stage 3 Status: Chronic Current Visit: Yes Code(s): L89.313 - Pressure ulcer of right buttock, stage 3 (5) Open wound of left thigh Status: Chronic Current Visit: Yes Qualifiers: Encounter type: subsequent encounter Qualified Code(s): S71.102D - Unspecified open wound, left thigh, subsequent encounter Code(s): S71.102A - Unspecified open wound, left thigh, initial encounter Comment: traumatic skin tear posterior thigh Type of Wound Date of Service: 06/12/17 Chief Complaint: Left ischial pressure sore, Stage IV. Spinal cord stenosis History of Wound: Patient is a 64-year-old female who has a chronic pressure ulcer of her left ischium. Patient was initially hospitalized for a swelling and redness of her right leg approximately 2014. This was evaluated for cellulitis. She was seen in consultation by infectious disease and plastic surgery. The patient was taken to surgery for an operative debridement of her chronic left ischial ulcer, underwent wound vac treatment and IV antibiotics. She was abruptly released from the F after only a few wks, before end of therapy. She had finished her IV antibiotics for Grp A strep osteomyelitis at home and continued with PT at home as well. She has decided to go with the conservative care route since she feels that her quality of life is more important than healing out the wound but had continued to keep the wound vac. The wound vac was discontinued by her insurance for failure to show improvement in the size of her wound. She has been being seen monthly for conservative/palliative care of her pressure ulcer of her left ischium. She has home health visiting weekly to assess her wound and monthly visits to the wound center. She has been tolerating this treatment well. She has recently started getting pressure ulcers of her right buttocks. January 2017, she underwent treatment after developing pressure ulcers which occurred from urinary incontinence issues associated with a chronic UTI and leakage of her catheter. She developed another pressure ulcer of her right buttock on or around April 20, 2017 and presents for treatment of this area as well as continued treatment of her left ischial pressure ulcer. She has been using Rain to the right buttock and continues to use Aquacel to the left ischium/buttock. Denies fever, chills or increased pain. Progress of Wound: Patient continues with conservative care management of left ischium - aquacel dressing to wound daily. No concerns for infection in this pressure ulcer at this time. The pressure ulcer of her right gluteal fold is about the same this week but the tissue does look better. The skin tear of left thigh and sacral area are healed. She denies increased pain or increased drainage. She continues to sit in her wheelchair frequently for long periods of time but has tried to offload more. - Physical Exam Vital Signs Temp Pulse Resp BP 97.5 F L 105 H 18 122/70 H 06/12/17 12:47 06/12/17 12:47 06/12/17 12:47 06/12/17 12:47 General: Alert, Oriented x3, Cooperative, No apparent distress HEENT: Atraumatic, Normocephalic Oral: Moist Mucosa Abdomen: Obese Skin: Ulcer/ Wound Wound Measurements and Assessment WC - Nurse 1 - General Ulcer Measurement Start: 05/22/17 13:49 Freq: Status: Active Protocol: Activity Type Activity Date Activity User E-Sign Co-Sign Detail Recorded Client Recorded Date Recorded By Document 06/12/17 12:47 DL [id number] 06/12/17 13:02 DL 06/12/17 12:47 Wound Center Nurse 1 [Ulcer Assessment] #8 left posterior upper thigh -Current Size (cm) - Length 0 -Current Size (cm) - Width 0 -Current Size (cm) - Depth 0 -Total Square Cm 0 -Photo Taken Yes -Exudate Amt None Present (0 %) -Wound Margin Flat & Intact -Granulation Amt Large (67-100%) -Granulation Quality Wheeler -Necrosis Amt Small (1-33%) -Necrotic Tissue Type Adherent Slough -Structure Exposed N/A -Texture (Amirah-wound Skin Appearance) Scarring -Moisture (Amirah-wound Skin Appearance No Abnormality ) -Color (Amirah-wound Skin Appearance) No Abnormality -Temperature (Amirah-wound Skin No Abnormality Appearance) (Pt Warm) -Ulcer Cleansing Rinsed/ Irrigated with Saline -Foul Odor after Cleansing No #7- Stage III pressure ulcer RT GLUTEAL FOLD -Current Size (cm) - Length 3.7 -Current Size (cm) - Width 3.5 -Current Size (cm) - Depth 3.8 -Total Square Cm 12.95 -Photo Taken No -Exudate Amt Medium (34-66%) -Exudate Type Serosanguineous -Wound Margin Distinct, Outline Attached -Granulation Amt Large (67-100%) -Granulation Quality Red -Necrosis Amt Small (1-33%) -Necrotic Tissue Type Adherent Slough -Structure Exposed N/A -Texture (Amirah-wound Skin Appearance) Scarring -Moisture (Amirah-wound Skin Appearance No Abnormality ) -Color (Amirah-wound Skin Appearance) No Abnormality -Temperature (Amirah-wound Skin No Abnormality Appearance) (Pt Warm) -Ulcer Cleansing Rinsed/ Irrigated with Saline -Foul Odor after Cleansing No -Anesthetic Used 4% Lidocaine Solution #2 L buttocks stage IV -Current Size (cm) - Length 0.6 -Current Size (cm) - Width 0.2 -Current Size (cm) - Depth 0.2 -Total Square Cm 0.12 -Photo Taken No -Exudate Amt Small (1-33%) -Exudate Type Serosanguineous -Wound Margin Thickened -Granulation Amt Small (1-33%) -Granulation Quality Wheeler Red -Necrosis Amt Small (1-33%) -Necrotic Tissue Type Adherent Slough -Structure Exposed N/A -Texture (Amirah-wound Skin Appearance) Scarring -Moisture (Amirah-wound Skin Appearance Maceration ) -Color (Amirah-wound Skin Appearance) Assessed -Temperature (Amirah-wound Skin No Abnormality Appearance) (Pt Warm) -Ulcer Cleansing Rinsed/ Irrigated with Saline -Foul Odor after Cleansing No -Anesthetic Used 4% Lidocaine Solution WC - Nurse 2 - General Ulcer CM Notes Start: 05/22/17 13:49 Freq: Status: Active Protocol: Activity Type Activity Date Activity User E-Sign Co-Sign Detail Recorded Client Recorded Date Recorded By Document 06/12/17 13:34 [id number] 06/12/17 13:48 TM 06/12/17 13:34 Wound Center Nurse 2 [Procedure/Treatment] #8 left posterior upper thigh -Time 13:46 -Correct Patient Yes -Correct Side, Site, Position Yes -Correct Procedure Yes -Procedure Performed Yes -Post Debridement Size (cm) - Length 0 -Post Debridement Size (cm) - Width 0 -Post Debridement Size (cm) - Depth 0 -Total Square Cm 0 -Wound/Ulcer Outcome Healed- Epithelialized -Ulcer Cleansing Rinsed/ Irrigated with Saline -Foul Odor after Cleansing No -Bioengineered Tissue No -Bleeding Controlled with NA -Treatment Response Procedure Tolerated Well #7- Stage III pressure ulcer RT GLUTEAL FOLD -Time 13:47 -Correct Patient Yes -Correct Side, Site, Position Yes -Correct Procedure Yes -Procedure Performed Yes -Type of Procedure Debridement -Clinical Debridement Subcutaneous -Post Debridement Size (cm) - Length 3.7 -Post Debridement Size (cm) - Width 3.8 -Post Debridement Size (cm) - Depth 3.8 -Total Square Cm 14.06 -Wound/Ulcer Outcome Not Healed -Ulcer Cleansing Rinsed/ Irrigated with Saline -Foul Odor after Cleansing No -Bioengineered Tissue No -Topical Lidocaine (%) 5 -Bleeding Controlled with Pressure -Treatment Response Procedure Tolerated Well #2 L buttocks stage IV -Time 13:47 -Correct Patient Yes -Correct Side, Site, Position Yes -Correct Procedure Yes -Procedure Performed Yes -Wound/Ulcer Outcome Not Healed -Ulcer Cleansing Rinsed/ Irrigated with Saline -Foul Odor after Cleansing No -Bioengineered Tissue No -Bleeding Controlled with NA -Other No debridement today -Treatment Response Procedure Tolerated Well [See Physician Procedure note for Specifics] Pain Scale: 0-10 Numeric [Pain] -Is Patient Pain Free? Yes Psych/Mental Status: Normal Affect, Appropriate Debridement Note Post-Debridement Measurements/Treatment WC - Nurse 2 - General Ulcer CM Notes Start: 05/22/17 13:49 Freq: Status: Active Protocol: Activity Type Activity Date Activity User E-Sign Co-Sign Detail Recorded Client Recorded Date Recorded By Document 05/22/17 14:36 TM [id number] 05/22/17 14:44 TM Document 05/29/17 14:55 [id number] 05/29/17 15:10 Document 06/05/17 15:44 [id number] 06/05/17 15:58 Document 06/12/17 13:34 [id number] 06/12/17 13:48 05/22/17 05/29/17 06/05/17 14:36 14:55 15:44 Wound Center Nurse 2 #8 left posterior upper thigh -Time 15:00 15:44 -Correct Patient Yes Yes -Correct Side, Site, Position Yes Yes -Correct Procedure Yes Yes -Procedure Performed Yes Yes -Type of Procedure Debridement Debridement -Clinical Debridement Subcutaneous Subcutaneous -Post Debridement Size (cm) - Length 0.8 1.8 -Post Debridement Size (cm) - Width 1.3 0.3 -Post Debridement Size (cm) - Depth 0.1 0.1 -Total Square Cm 1.04 0.54 -Wound/Ulcer Outcome Not Healed Not Healed -Ulcer Cleansing Rinsed/ Rinsed/ Irrigated with Irrigated with Saline Saline -Foul Odor after Cleansing No No -Bioengineered Tissue No No -Topical Lidocaine (%) 5 5 -Bleeding Controlled with Pressure Pressure -Treatment Response Procedure Procedure Tolerated Well Tolerated Well #7- Stage III pressure ulcer RT GLUTEAL FOLD -Time 14:36 15:10 15:45 -Correct Patient Yes Yes Yes -Correct Side, Site, Position Yes Yes Yes -Correct Procedure Yes Yes Yes -Procedure Performed Yes Yes Yes -Type of Procedure Debridement Debridement Debridement -Clinical Debridement Subcutaneous Subcutaneous Subcutaneous -Post Debridement Size (cm) - Length 4.2 4.2 3.8 -Post Debridement Size (cm) - Width 3.2 3.6 3.0 -Post Debridement Size (cm) - Depth 0.2 3.0 3.5 -Total Square Cm 13.44 15.12 11.40 -Wound/Ulcer Outcome Not Healed Not Healed Not Healed -Ulcer Cleansing Rinsed/ Rinsed/ Rinsed/ Irrigated with Irrigated with Irrigated with Saline Saline Saline -Foul Odor after Cleansing No No No -Bioengineered Tissue No No No -Cetacaine Guston No -Topical Lidocaine (%) 5 5 5 -Bleeding Controlled with Pressure Pressure Pressure -Treatment Response Procedure Procedure Procedure Tolerated Well Tolerated Well Tolerated Well #2 L buttocks stage IV -Time 14:37 15:45 -Correct Patient Yes Yes -Correct Side, Site, Position Yes Yes -Correct Procedure Yes Yes -Procedure Performed Yes Yes -Type of Procedure Debridement -Clinical Debridement Subcutaneous -Post Debridement Size (cm) - Length 0.5 -Post Debridement Size (cm) - Width 0.2 -Post Debridement Size (cm) - Depth 0.5 -Total Square Cm 0.10 -Wound/Ulcer Outcome Not Healed Not Healed -Ulcer Cleansing Rinsed/ Rinsed/ Irrigated with Irrigated with Saline Saline -Foul Odor after Cleansing No No -Bioengineered Tissue No No -Cetacaine Guston No -Topical Lidocaine (%) 5 -Bleeding Controlled with NA Pressure -Other no debridement today -Treatment Response Procedure Procedure Tolerated Well Tolerated Well Pain Scale: 0-10 Numeric Is Patient Pain Free? Yes Yes Yes 06/12/17 13:34 Wound Center Nurse 2 #8 left posterior upper thigh -Time 13:46 -Correct Patient Yes -Correct Side, Site, Position Yes -Correct Procedure Yes -Procedure Performed Yes -Type of Procedure -Clinical Debridement -Post Debridement Size (cm) - Length 0 -Post Debridement Size (cm) - Width 0 -Post Debridement Size (cm) - Depth 0 -Total Square Cm 0 -Wound/Ulcer Outcome Healed- Epithelialized -Ulcer Cleansing Rinsed/ Irrigated with Saline -Foul Odor after Cleansing No -Bioengineered Tissue No -Topical Lidocaine (%) -Bleeding Controlled with NA -Treatment Response Procedure Tolerated Well #7- Stage III pressure ulcer RT GLUTEAL FOLD -Time 13:47 -Correct Patient Yes -Correct Side, Site, Position Yes -Correct Procedure Yes -Procedure Performed Yes -Type of Procedure Debridement -Clinical Debridement Subcutaneous -Post Debridement Size (cm) - Length 3.7 -Post Debridement Size (cm) - Width 3.8 -Post Debridement Size (cm) - Depth 3.8 -Total Square Cm 14.06 -Wound/Ulcer Outcome Not Healed -Ulcer Cleansing Rinsed/ Irrigated with Saline -Foul Odor after Cleansing No -Bioengineered Tissue No -Cetacaine Guston -Topical Lidocaine (%) 5 -Bleeding Controlled with Pressure -Treatment Response Procedure Tolerated Well #2 L buttocks stage IV -Time 13:47 -Correct Patient Yes -Correct Side, Site, Position Yes -Correct Procedure Yes -Procedure Performed Yes -Type of Procedure -Clinical Debridement -Post Debridement Size (cm) - Length -Post Debridement Size (cm) - Width -Post Debridement Size (cm) - Depth -Total Square Cm -Wound/Ulcer Outcome Not Healed -Ulcer Cleansing Rinsed/ Irrigated with Saline -Foul Odor after Cleansing No -Bioengineered Tissue No -Cetacaine Guston -Topical Lidocaine (%) -Bleeding Controlled with NA -Other No debridement today -Treatment Response Procedure Tolerated Well Pain Scale: 0-10 Numeric Is Patient Pain Free? Yes Wound debrided: left buttocks stage IV Laterality: Left Wound Grade/Stage: Stage IV Tissue Removed: none - no debridement completed today Severity: Fat Layer Exposed Amount of bleeding with debridement: None No debridement was completed today - palliative management - Additional Wound Wound debrided: Stage III pressure ulcer right gluteal fold Laterality: Right Wound Grade/Stage: Stage III Type of Debridement: Excisional debridement Depth: Down to and including healthy tissue, in the subcutaneous layer Percentage of wound debrided: 100 Instrument Used: 5mm curette Tissue Removed: yellow slough and devitalized tissue Severity: Fat Layer Exposed Amount of bleeding with debridement: Mild Bleeding Controlled with: Pressure Patient tolerated procedure: Patient tolerated procedure well - Additional Wound Wound debrided: left posterior thigh Depth: Down to and including healthy tissue Tissue Removed: none Amount of bleeding with debridement: None Patient tolerated procedure: Patient tolerated procedure well Operative Diagnosis: No debridement completed today - wound is healed Assessment/Plan Active Problems Open wound of left thigh (Chronic) traumatic skin tear posterior thigh Pressure ulcer of right buttock, stage 3 (Chronic) Diabetic neuropathy, type II diabetes mellitus (Chronic) Malnutrition (Chronic) Spinal stenosis (Chronic) Assessment: Pressure ulcer of the left buttock -non healing, despite several deep OR debridements, has not been willing to stay in bed and keep off of wound,and refuses to consider having a muscle flap since it would entail 6 wks in a bed in a [facility] which she thinks would cause more deconditioning and require another few months to restrore her ambulation. wound is remaining free of infection and is not increasing in size but is stable. Right gluteal fold pressure ulcer stage III. left Buttock/ischial ulcer stage III - healed Plan: Right gluteal fold stage III pressure ulcer debrided today. Right buttock wound shows improvement in tissue but there is a slight odor and no improvement in measurements. She will completed Ciprofloxacin and Flagyl on Thursday. Will repeat wound cultures to see if there is still infection. Left posterior thigh is healed. Continue with aquacel daily wound packing to left buttocks and will use Aquacel to the right gluteal fold as well. Encouraged to increase protein intake to aid in wound healing and maintain good control of diabetes. Discussed offloading importance in wound healing. F/U in 1 week. Nursing notes reviewed.
--- NOTE | 2017-06-12 15:33 | PN.PCM_ITS ---
(1) Spinal stenosis Status: Chronic Current Visit: Yes Qualifiers: Spinal region: lumbosacral Code(s): M48.00 - Spinal stenosis, site unspecified (2) Malnutrition Status: Chronic Current Visit: Yes Qualifiers: Malnutrition type: protein-calorie malnutrition Protein-calorie malnutrition severity: mild Qualified Code(s): E44.1 - Mild protein-calorie malnutrition Code(s): E46 - Unspecified protein-calorie malnutrition (3) Diabetic neuropathy, type II diabetes mellitus Status: Chronic Current Visit: Yes Qualifiers: Diabetes mellitus stone cutter insulin use: unspecified jail insulin use status Code(s): E11.40 - Type 2 diabetes mellitus with diabetic neuropathy, unspecified (4) Pressure ulcer of right buttock, stage 3 Status: Chronic Current Visit: Yes Code(s): L89.313 - Pressure ulcer of right buttock, stage 3 (5) Open wound of left thigh Status: Chronic Current Visit: Yes Qualifiers: Encounter type: subsequent encounter Qualified Code(s): S71.102D - Unspecified open wound, left thigh, subsequent encounter Code(s): S71.102A - Unspecified open wound, left thigh, initial encounter Comment: traumatic skin tear posterior thigh Type of Wound Date of Service: 06/12/17 Chief Complaint: Left ischial pressure sore, Stage IV. Spinal cord stenosis History of Wound: Patient is a 64-year-old female who has a chronic pressure ulcer of her left ischium. Patient was initially hospitalized for a swelling and redness of her right leg approximately 2014. This was evaluated for cellulitis. She was seen in consultation by infectious disease and plastic surgery. The patient was taken to surgery for an operative debridement of her chronic left ischial ulcer, underwent wound vac treatment and IV antibiotics. She was abruptly released from the F after only a few wks, before end of therapy. She had finished her IV antibiotics for Grp A strep osteomyelitis at home and continued with PT at home as well. She has decided to go with the conservative care route since she feels that her quality of life is more important than healing out the wound but had continued to keep the wound vac. The wound vac was discontinued by her insurance for failure to show improvement in the size of her wound. She has been being seen monthly for conservative/ palliative care of her pressure ulcer of her left ischium. She has home health visiting weekly to assess her wound and monthly visits to the wound center. She has been tolerating this treatment well. She has recently started getting pressure ulcers of her right buttocks. January 2017, she underwent treatment after developing pressure ulcers which occurred from urinary incontinence issues associated with a chronic UTI and leakage of her catheter. She developed another pressure ulcer of her right buttock on or around April 20, 2017 and presents for treatment of this area as well as continued treatment of her left ischial pressure ulcer. She has been using Rain to the right buttock and continues to use Aquacel to the left ischium/buttock. Denies fever, chills or increased pain. Progress of Wound: Patient continues with conservative care management of left ischium - aquacel dressing to wound daily. No concerns for infection in this pressure ulcer at this time. The pressure ulcer of her right gluteal fold is about the same this week but the tissue does look better. The skin tear of left thigh and sacral area are healed. She denies increased pain or increased drainage. She continues to sit in her wheelchair frequently for long periods of time but has tried to offload more. - Physical Exam Vital Signs Temp Pulse Resp BP 97.5 F L 105 H 18 122/70 H 06/12/17 12:47 06/12/17 12:47 06/12/17 12:47 06/12/17 12:47 General: Alert, Oriented x3, Cooperative, No apparent distress HEENT: Atraumatic, Normocephalic Oral: Moist Mucosa Abdomen: Obese Skin: Ulcer/ Wound Wound Measurements and Assessment WC - Nurse 1 - General Ulcer Measurement Start: 05/22/17 13:49 Freq: Status: Active Protocol: Activity Type Activity Date Activity User E-Sign Co-Sign Detail Recorded Client Recorded Date Recorded By Document 06/12/17 12:47 DL [id number] 06/12/17 13:02 DL 06/12/17 12:47 Wound Center Nurse 1 [Ulcer Assessment] #8 left posterior upper thigh -Current Size (cm) - Length 0 -Current Size (cm) - Width 0 -Current Size (cm) - Depth 0 -Total Square Cm 0 -Photo Taken Yes -Exudate Amt None Present (0 %) -Wound Margin Flat & Intact -Granulation Amt Large (67-100%) -Granulation Quality [place] -Necrosis Amt Small (1-33%) -Necrotic Tissue Type Adherent Slough -Structure Exposed N/A -Texture ([place]ir[place]-wound Skin Appearance) Scarring -Moisture (Amirah-wound Skin Appearance No Abnormality ) -Color (Amirah-wound Skin Appearance) No Abnormality -Temperature ([place]ir[place]-wound Skin No Abnormality Appearance) (Pt Warm) -Ulcer Cleansing Rinsed/ Irrigated with Saline -Foul Odor after Cleansing No #7- Stage III pressure ulcer RT GLUTEAL FOLD -Current Size (cm) - Length 3.7 -Current Size (cm) - Width 3.5 -Current Size (cm) - Depth 3.8 -Total Square Cm 12.95 -Photo Taken No -Exudate Amt Medium (34-66%) -Exudate Type Serosanguineous -Wound Margin Distinct, Outline Attached -Granulation Amt Large (67-100%) -Granulation Quality Red -Necrosis Amt Small (1-33%) -Necrotic Tissue Type Adherent Slough -Structure Exposed N/A -Texture ([place]irah-wound Skin Appearance) Scarring -Moisture ([place]ir[place]-wound Skin Appearance No Abnormality ) -Color ([place]irah-wound Skin Appearance) No Abnormality -Temperature ([place]-wound Skin No Abnormality Appearance) (Pt Warm) -Ulcer Cleansing Rinsed/ Irrigated with Saline -Foul Odor after Cleansing No -Anesthetic Used 4% Lidocaine Solution #2 L buttocks stage IV -Current Size (cm) - Length 0.6 -Current Size (cm) - Width 0.2 -Current Size (cm) - Depth 0.2 -Total Square Cm 0.12 -Photo Taken No -Exudate Amt Small (1-33%) -Exudate Type Serosanguineous -Wound Margin Thickened -Granulation Amt Small (1-33%) -Granulation Quality [place] Red -Necrosis Amt Small (1-33%) -Necrotic Tissue Type Adherent Slough -Structure Exposed N/A -Texture (Amirah-wound Skin Appearance) Scarring -Moisture (Amirah-wound Skin Appearance Maceration ) -Color (Amirah-wound Skin Appearance) Assessed -Temperature ([place]irah-wound Skin No Abnormality Appearance) (Pt Warm) -Ulcer Cleansing Rinsed/ Irrigated with Saline -Foul Odor after Cleansing No -Anesthetic Used 4% Lidocaine Solution WC - Nurse 2 - General Ulcer CM Notes Start: 05/22/17 13:49 Freq: Status: Active Protocol: Activity Type Activity Date Activity User E-Sign Co-Sign Detail Recorded Client Recorded Date Recorded By Document 06/12/17 13:34 [id number] 06/12/17 13:48 TM 06/12/17 13:34 Wound Center Nurse 2 [Procedure/Treatment] #8 left posterior upper thigh -Time 13:46 -Correct Patient Yes -Correct Side, Site, Position Yes -Correct Procedure Yes -Procedure Performed Yes -Post Debridement Size (cm) - Length 0 -Post Debridement Size (cm) - Width 0 -Post Debridement Size (cm) - Depth 0 -Total Square Cm 0 -Wound/Ulcer Outcome Healed- Epithelialized -Ulcer Cleansing Rinsed/ Irrigated with Saline -Foul Odor after Cleansing No -Bioengineered Tissue No -Bleeding Controlled with NA -Treatment Response Procedure Tolerated Well #7- Stage III pressure ulcer RT GLUTEAL FOLD -Time 13:47 -Correct Patient Yes -Correct Side, Site, Position Yes -Correct Procedure Yes -Procedure Performed Yes -Type of Procedure Debridement -Clinical Debridement Subcutaneous -Post Debridement Size (cm) - Length 3.7 -Post Debridement Size (cm) - Width 3.8 -Post Debridement Size (cm) - Depth 3.8 -Total Square Cm 14.06 -Wound/Ulcer Outcome Not Healed -Ulcer Cleansing Rinsed/ Irrigated with Saline -Foul Odor after Cleansing No -Bioengineered Tissue No -Topical Lidocaine (%) 5 -Bleeding Controlled with Pressure -Treatment Response Procedure Tolerated Well #2 L buttocks stage IV -Time 13:47 -Correct Patient Yes -Correct Side, Site, Position Yes -Correct Procedure Yes -Procedure Performed Yes -Wound/Ulcer Outcome Not Healed -Ulcer Cleansing Rinsed/ Irrigated with Saline -Foul Odor after Cleansing No -Bioengineered Tissue No -Bleeding Controlled with NA -Other No debridement today -Treatment Response Procedure Tolerated Well [See Physician Procedure note for Specifics] Pain Scale: 0-10 Numeric [Pain] -Is Patient Pain Free? Yes Psych/Mental Status: Normal Affect, Appropriate Debridement Note Post-Debridement Measurements/Treatment WC - Nurse 2 - General Ulcer CM Notes Start: 05/22/17 13:49 Freq: Status: Active Protocol: Activity Type Activity Date Activity User E-Sign Co-Sign Detail Recorded Client Recorded Date Recorded By Document 05/22/17 14:36 TM [id number] 05/22/17 14:44 TM Document 05/29/17 14:55 [id number] 05/29/17 15:10 Document 06/05/17 15:44 [id number] 06/05/17 15:58 Document 06/12/17 13:34 [id number] 06/12/17 13:48 05/22/17 05/29/17 06/05/17 14:36 14:55 15:44 Wound Center Nurse 2 #8 left posterior upper thigh -Time 15:00 15:44 -Correct Patient Yes Yes -Correct Side, Site, Position Yes Yes -Correct Procedure Yes Yes -Procedure Performed Yes Yes -Type of Procedure Debridement Debridement -Clinical Debridement Subcutaneous Subcutaneous -Post Debridement Size (cm) - Length 0.8 1.8 -Post Debridement Size (cm) - Width 1.3 0.3 -Post Debridement Size (cm) - Depth 0.1 0.1 -Total Square Cm 1.04 0.54 -Wound/Ulcer Outcome Not Healed Not Healed -Ulcer Cleansing Rinsed/ Rinsed/ Irrigated with Irrigated with Saline Saline -Foul Odor after Cleansing No No -Bioengineered Tissue No No -Topical Lidocaine (%) 5 5 -Bleeding Controlled with Pressure Pressure -Treatment Response Procedure Procedure Tolerated Well Tolerated Well #7- Stage III pressure ulcer RT GLUTEAL FOLD -Time 14:36 15:10 15:45 -Correct Patient Yes Yes Yes -Correct Side, Site, Position Yes Yes Yes -Correct Procedure Yes Yes Yes -Procedure Performed Yes Yes Yes -Type of Procedure Debridement Debridement Debridement -Clinical Debridement Subcutaneous Subcutaneous Subcutaneous -Post Debridement Size (cm) - Length 4.2 4.2 3.8 -Post Debridement Size (cm) - Width 3.2 3.6 3.0 -Post Debridement Size (cm) - Depth 0.2 3.0 3.5 -Total Square Cm 13.44 15.12 11.40 -Wound/Ulcer Outcome Not Healed Not Healed Not Healed -Ulcer Cleansing Rinsed/ Rinsed/ Rinsed/ Irrigated with Irrigated with Irrigated with Saline Saline Saline -Foul Odor after Cleansing No No No -Bioengineered Tissue No No No -Cetacaine [place] No -Topical Lidocaine (%) 5 5 5 -Bleeding Controlled with Pressure Pressure Pressure -Treatment Response Procedure Procedure Procedure Tolerated Well Tolerated Well Tolerated Well #2 L buttocks stage IV -Time 14:37 15:45 -Correct Patient Yes Yes -Correct Side, Site, Position Yes Yes -Correct Procedure Yes Yes -Procedure Performed Yes Yes -Type of Procedure Debridement -Clinical Debridement Subcutaneous -Post Debridement Size (cm) - Length 0.5 -Post Debridement Size (cm) - Width 0.2 -Post Debridement Size (cm) - Depth 0.5 -Total Square Cm 0.10 -Wound/Ulcer Outcome Not Healed Not Healed -Ulcer Cleansing Rinsed/ Rinsed/ Irrigated with Irrigated with Saline Saline -Foul Odor after Cleansing No No -Bioengineered Tissue No No -Cetacaine [place] No -Topical Lidocaine (%) 5 -Bleeding Controlled with NA Pressure -Other no debridement today -Treatment Response Procedure Procedure Tolerated Well Tolerated Well Pain Scale: 0-10 Numeric Is Patient Pain Free? Yes Yes Yes 06/12/17 13:34 Wound Center Nurse 2 #8 left posterior upper thigh -Time 13:46 -Correct Patient Yes -Correct Side, Site, Position Yes -Correct Procedure Yes -Procedure Performed Yes -Type of Procedure -Clinical Debridement -Post Debridement Size (cm) - Length 0 -Post Debridement Size (cm) - Width 0 -Post Debridement Size (cm) - Depth 0 -Total Square Cm 0 -Wound/Ulcer Outcome Healed- Epithelialized -Ulcer Cleansing Rinsed/ Irrigated with Saline -Foul Odor after Cleansing No -Bioengineered Tissue No -Topical Lidocaine (%) -Bleeding Controlled with NA -Treatment Response Procedure Tolerated Well #7- Stage III pressure ulcer RT GLUTEAL FOLD -Time 13:47 -Correct Patient Yes -Correct Side, Site, Position Yes -Correct Procedure Yes -Procedure Performed Yes -Type of Procedure Debridement -Clinical Debridement Subcutaneous -Post Debridement Size (cm) - Length 3.7 -Post Debridement Size (cm) - Width 3.8 -Post Debridement Size (cm) - Depth 3.8 -Total Square Cm 14.06 -Wound/Ulcer Outcome Not Healed -Ulcer Cleansing Rinsed/ Irrigated with Saline -Foul Odor after Cleansing No -Bioengineered Tissue No -Cetacaine [place] -Topical Lidocaine (%) 5 -Bleeding Controlled with Pressure -Treatment Response Procedure Tolerated Well #2 L buttocks stage IV -Time 13:47 -Correct Patient Yes -Correct Side, Site, Position Yes -Correct Procedure Yes -Procedure Performed Yes -Type of Procedure -Clinical Debridement -Post Debridement Size (cm) - Length -Post Debridement Size (cm) - Width -Post Debridement Size (cm) - Depth -Total Square Cm -Wound/Ulcer Outcome Not Healed -Ulcer Cleansing Rinsed/ Irrigated with Saline -Foul Odor after Cleansing No -Bioengineered Tissue No -Cetacaine [place] -Topical Lidocaine (%) -Bleeding Controlled with NA -Other No debridement today -Treatment Response Procedure Tolerated Well Pain Scale: 0-10 Numeric Is Patient Pain Free? Yes Wound debrided: left buttocks stage IV Laterality: Left Wound Grade/Stage: Stage IV Tissue Removed: none - no debridement completed today Severity: Fat Layer Exposed Amount of bleeding with debridement: None No debridement was completed today - palliative management - Additional Wound Wound debrided: Stage III pressure ulcer right gluteal fold Laterality: Right Wound Grade/Stage: Stage III Type of Debridement: Excisional debridement Depth: Down to and including healthy tissue, in the subcutaneous layer Percentage of wound debrided: 100 Instrument Used: 5mm curette Tissue Removed: yellow slough and devitalized tissue Severity: Fat Layer Exposed Amount of bleeding with debridement: Mild Bleeding Controlled with: Pressure Patient tolerated procedure: Patient tolerated procedure well - Additional Wound Wound debrided: left posterior thigh Depth: Down to and including healthy tissue Tissue Removed: none Amount of bleeding with debridement: None Patient tolerated procedure: Patient tolerated procedure well Operative Diagnosis: No debridement completed today - wound is healed Assessment/Plan Active Problems Open wound of left thigh (Chronic) traumatic skin tear posterior thigh Pressure ulcer of right buttock, stage 3 (Chronic) Diabetic neuropathy, type II diabetes mellitus (Chronic) Malnutrition (Chronic) Spinal stenosis (Chronic) Assessment: Pressure ulcer of the left buttock -non healing, despite several deep OR debridements, has not been willing to stay in bed and keep off of wound, and refuses to consider having a muscle flap since it would entail 6 wks in a bed in a [facility] which she thinks would cause more deconditioning and require another few months to restrore her ambulation. wound is remaining free of infection and is not increasing in size but is stable. Right gluteal fold pressure ulcer stage III. left Buttock/ischial ulcer stage III - healed Plan: Right gluteal fold stage III pressure ulcer debrided today. Right buttock wound shows improvement in tissue but there is a slight odor and no improvement in measurements. She will completed Ciprofloxacin and Flagyl on Thursday. Will repeat wound cultures to see if there is still infection. Left posterior thigh is healed. Continue with aquacel daily wound packing to left buttocks and will use Aquacel to the right gluteal fold as well. Encouraged to increase protein intake to aid in wound healing and maintain good control of diabetes. Discussed offloading importance in wound healing. F/U in 1 week. Nursing notes reviewed.
== END 2017-06-17 23:59 ==
LOC: WC 12:30
PROVIDERS: Family Provider Family Medicine; PCP Family Medicine; Visit Provider Family Medicine
DX: E11.622 Type 2 diabetes mellitus with other skin ulcer (principal); E11.40 Type 2 diabetes mellitus with diabetic neuropathy, unspecified; L89.313 Pressure ulcer of right buttock, stage 3; E44.1 Mild protein-calorie malnutrition; M48.00 Spinal stenosis, site unspecified; M79.89 Other specified soft tissue disorders; B96.4 Proteus (mirabilis) (morganii) as the cause of diseases classified elsewhere
CPT/HCPCS: 11042; 87070; 87075; 87077; 87186; 87205

== ENCOUNTER 2017-07-08 10:13 | Day surgery (SDC) | payer MEDICAID, SELFPAY ==
--- NOTE | 2017-07-08 10:40 | PCM.DC.URO ---
Discharge Diet: Light diet - advance as tolerated Discharge Activity: Return to Normal Activity, No Restrictions Call your doctor if your incision/area has: Continuous Slow Oozing, Sudden Increased Bleeding, Increased Pain/ Swelling, Increased Redness, Foul Smelling Discharge, Swelling at the incision site Instructions: Discharge Instructions: Caring for Your Suprapubic Catheter Allergies/Adverse Reactions: Allergies No Known Allergies Allergy (Verified 07/01/17 10:11) Medications to take at Discharge Allopurinol [Zyloprim] 100 mg PO BID 07/05/14 Latanoprost 0.005% [Xalatan Opthalmic] 1 drop EACH EYE QHS 07/05/14 Losartan Potassium [Cozaar] 25 mg PO DAILY 07/05/14 Metformin HCl [Glucophage] 1,000 mg PO BIDCM 07/05/14 Multivitamins,Therapeutic [Multivitamin] 1 tablet PO DAILY 07/05/14 Simvastatin [Zocor] 10 mg PO QHS 07/05/14 Timolol Maleate [Timoptic-XE 0.5%] 1 drop EACH EYE DAILY 07/05/14 Acetaminophen [Tylenol Tablet] 650 mg PO Q6H PRN PRN #0 tablet 07/11/14 Furosemide [Lasix] 40 mg PO DAILY 06/29/15 Potassium Chloride [K-Dur] 20 meq PO DAILY 06/29/15 Saxagliptin HCl [Onglyza] 5 mg PO DAILY 07/01/17 Solifenacin Succinate [Vesicare] 10 mg PO DAILY 07/01/17 Cephalexin [Keflex] 500 mg PO Q8 #21 cap 07/08/17 The following prescriptions were given: Cephalexin [Keflex] 500 mg PO Q8 #21 cap Primary Care Physician: Jones Esquivel MD [Primary Care Provider] - Please Follow Up With: Derrick Silva MD - Call if need to change appt. When: August 20 at 10 am to change SP tube.
[2017-07-08 10:41] VITALS: BP 129/74; PULSE 104; RESP 16; TEMP 36.4; O2SAT 100; BMI 30.4
[2017-07-08 11:06] LABS: Bedside Glucose 135 mg/dL (70-110)
[2017-07-08] MEDS: Cefazolin 2 GM in 0.9% Normal Saline 100 ML IV (11:12)
[2017-07-08] MEDS: Lidocaine Jelly 2% 20 ML Syringe (URO-JET) 20 APPLIC (11:27)
--- NOTE | 2017-07-08 11:50 | OP.PCM_ITS ---
Problem List (1) Pressure ulcer of left buttock, stage 3 Status: Resolved (2) Pressure ulcer of left buttock, stage 2 Status: Acute (3) Incompetent urethral closure mechanism Status: Acute (4) Neurogenic bladder Status: Acute Report of Operation Date of Procedure: 07/08/17 Pre-Operative Diagnosis: Female with chronic bedsores in the issue him stage II and III and chronic incompetence of the urethra and leakage around the Rea catheter Post-Operative Diagnosis: Same Surgery/Procedure Performed:: Cystoscopy and placement of a suprapubic catheter Description of Surgical Findings:: 67-year-old female was taken back to the operating room after smooth induction of general anesthesia she was placed supine on the table the current catheter was removed the perineum was very red from chronic irritation wetness from the catheter she had 2 sores in the issue him on the left and right side that had been taken care of by the wound center but these are chronically getting wet with urine probably will not here and to heal until we divert the urine away. She has had a catheter in the urethra and still leaking around the catheter so I recommend a suprapubic catheter to try to divert the urine away. Patient was taken back to the operating room after smooth induction of general anesthesia she was placed in dorsal lithotomy position very frail elderly elderly female repositioned her very carefully she had bedsores and the issue on the left and right side these are chronically these were dressed remove the catheter the area perineum and urethra and the entire area was red from chronic irritation from leaking urine. The urethra was inspected very patulous opening urethra. I then went into the bladder with the cystoscope had chronic inflammation of the bladder from a chronic Rea catheter was not really able to distend the bladder very well given her patulous urethra the water which is run around the catheter during the irrigation had to push up on the urethra to try to put pressure on the bladder to distend the bladder as much as possible. Then I used a finder needle to explore my insertion site above the bone and then I was able to find a site above the pubic bone made an incision above the pubic bone I went through with the suprapubic catheter insertion kit device advanced this to the skin muscle layer and then into the bladder under direct visualization with the cystoscope once in the bladder pulled out the sheath in the middle and then to the sheath I put the catheter in it was a 16 [place] catheter inflated 10 cc in the balloon pulled a backup flushed it in the left this inside the bladder and suprapubic catheter I secured the suprapubic catheter with stitches in the skin no catheter was left in the urethra patient anesthetic was reversed I will talk to the patient about the findings she has a very patulous open urethra hopefully the suprapubic catheter will help divert the urine away but was such as open patches urethra she still make the ureter may leak urine below. Her initial an issue and dressings were dressed by the nurses staff she was dried and then transferred to the PACU in good condition she will follow-up in the office as an appointment to have a suprapubic catheter change a larger catheter as we change larger catheters this may help with drainage from the bladder. Patient's anesthetic was reversed taken back to PACU in good condition Type of Anesthesia:: General Drains: sp tube - Admit VTE Documentation VTE Present on Admission: No VTE Mechan Device Prophylaxis: SCD's
[2017-07-08 12:00] VITALS: BP 122/75; BP 129/74; PULSE 101; RESP 16; TEMP 36.3; O2SAT 96
[2017-07-08 12:15] VITALS: BP 128/73; BP 129/74; PULSE 93; RESP 16; O2SAT 99
[2017-07-08 12:20] LABS: Bedside Glucose 109 mg/dL (70-110)
[2017-07-08 12:28] VITALS: BP 128/77; BP 129/74; PULSE 93; RESP 16; TEMP 36.2; O2SAT 100
[2017-07-08 13:18] VITALS: BP 129/74; BP 130/78; PULSE 78; RESP 18; TEMP 36.6; O2SAT 99
== END 2017-07-08 13:20 | disposition home or self-care (01) ==
LOC: SDC 10:16 → AC 10:16
PROVIDERS: Family Provider Family Medicine; PCP Family Medicine; Visit Provider Urology
PROC: 0T9B40Z Drainage of Bladder with Drainage Device, Percutaneous Endoscopic Approach (ICD-10-PCS; CPT 52005; principal; 2017-07-08 11:45)
DX: T83.031A Leakage of indwelling urethral catheter, initial encounter (principal); N31.2 Flaccid neuropathic bladder, not elsewhere classified; N39.498 Other specified urinary incontinence; N36.8 Other specified disorders of urethra; R35.0 Frequency of micturition; Z87.440 Personal history of urinary (tract) infections; G83.89 Other specified paralytic syndromes; L89.322 Pressure ulcer of left buttock, stage 2; L89.323 Pressure ulcer of left buttock, stage 3; I10 Essential (primary) hypertension; D64.9 Anemia, unspecified; M10.9 Gout, unspecified; E11.9 Type 2 diabetes mellitus without complications; Z79.84 Long term (current) use of oral hypoglycemic drugs; Z79.899 Other long term (current) drug therapy; Z93.3 Colostomy status
CPT/HCPCS: 51102; 82962; J3010; J7120; J2405

== ENCOUNTER 2017-07-17 13:30 | Outpatient (RCR) | payer MEDICAID, SELFPAY ==
[2017-06-18 00:29] VITALS: BP 108/73; PULSE 105; RESP 18; TEMP 36.4
[2017-06-19 13:53] VITALS: BP 109/72; PULSE 115; RESP 18; TEMP 36.6
--- NOTE | 2017-06-19 18:05 | PCM.WC.PN ---
(1) Diabetes mellitus type 2 in nonobese Status: Chronic Current Visit: Yes Code(s): E11.9 - Type 2 diabetes mellitus without complications (2) Pressure ulcer of right buttock, stage 3 Status: Chronic Current Visit: Yes Code(s): L89.313 - Pressure ulcer of right buttock, stage 3 (3) Pressure sore of left ischium, stage 4 Status: Chronic Current Visit: Yes Code(s): L89.324 - Pressure ulcer of left buttock, stage 4 (4) Spinal stenosis Status: Chronic Current Visit: Yes Qualifiers: Spinal region: lumbosacral Code(s): M48.00 - Spinal stenosis, site unspecified Type of Wound Date of Service: 06/19/17 Chief Complaint: Left ischial pressure sore, Stage IV. Spinal cord stenosis History of Wound: Patient is a 64-year-old female who has a chronic pressure ulcer of her left ischium. Patient was initially hospitalized for a swelling and redness of her right leg approximately 2014. This was evaluated for cellulitis. She was seen in consultation by infectious disease and plastic surgery. The patient was taken to surgery for an operative debridement of her chronic left ischial ulcer, underwent wound vac treatment and IV antibiotics. She was abruptly released from the ECF after only a few wks, before end of therapy. She had finished her IV antibiotics for Grp A strep osteomyelitis at home and continued with PT at home as well. She has decided to go with the conservative care route since she feels that her quality of life is more important than healing out the wound but had continued to keep the wound vac. The wound vac was discontinued by her insurance for failure to show improvement in the size of her wound. She has been being seen monthly for conservative/palliative care of her pressure ulcer of her left ischium. She has home health visiting weekly to assess her wound and monthly visits to the wound center. She has been tolerating this treatment well. She has recently started getting pressure ulcers of her right buttocks. January 2017, she underwent treatment after developing pressure ulcers which occurred from urinary incontinence issues associated with a chronic UTI and leakage of her catheter. She developed another pressure ulcer of her right buttock on or around April 20, 2017 and presents for treatment of this area as well as continued treatment of her left ischial pressure ulcer. She has been using Rain to the right buttock and continues to use Aquacel to the left ischium/buttock. Denies fever, chills or increased pain. Progress of Wound: Patient continues with conservative care management of left ischium - aquacel dressing to wound daily. No concerns for infection in this pressure ulcer at this time. The pressure ulcer of her right gluteal fold is smaller in depth this week. Wound culture done last week showed staph haemolyticus and proteus but was negative for anaerobic bacteria. The skin tear of left thigh and sacral area are healed. She denies increased pain or increased drainage. She continues to sit in her wheelchair frequently for long periods of time but has tried to offload more. - Physical Exam Vital Signs Temp Pulse Resp BP 97.8 F 115 H 18 109/72 06/19/17 13:53 06/19/17 13:53 06/19/17 13:53 06/19/17 13:53 General: Alert, Oriented x3, Cooperative, No apparent distress HEENT: Atraumatic, Normocephalic Oral: Moist Mucosa Abdomen: Obese Skin: Ulcer/ Wound Wound Measurements and Assessment WC - Nurse 1 - General Ulcer Measurement Start: 06/19/17 13:47 Freq: Status: Active Protocol: Activity Type Activity Date Activity User E-Sign Co-Sign Detail Recorded Client Recorded Date Recorded By Document 06/19/17 13:53 [facility] [id number] 06/19/17 14:07 [facility] 06/19/17 13:53 Wound Center Nurse 1 [Ulcer Assessment] #7- Stage III pressure ulcer RT GLUTEAL FOLD -Combined with other wound No -Current Size (cm) - Length 3.9 -Current Size (cm) - Width 2.6 -Current Size (cm) - Depth 3.1 -Total Square Cm 10.14 -Photo Taken No -Epithelialization None Present -Tunneling No -Undermining/Tunneling No -Exudate Amt Medium (34-66%) -Exudate Type Serosanguineous -Wound Margin Distinct, Outline Attached -Granulation Amt Medium (34-66%) -Granulation Quality Pale Red -Slough/Fibrin Yes -Necrosis Amt Small (1-33%) -Necrotic Tissue Type Adherent Slough -Texture (Amirah-wound Skin Appearance) Scarring -Moisture (Amirah-wound Skin Appearance Assessed ) -Color (Amirah-wound Skin Appearance) Erythema -Temperature (Amirah-wound Skin No Abnormality Appearance) (Pt Warm) -Tenderness on Palpation (Amirah-wound No Skin Appearance) -Ulcer Cleansing Rinsed/ Irrigated with Saline -Foul Odor after Cleansing No -Anesthetic Used 4% Lidocaine Solution #2 L buttocks stage IV -Combined with other wound No -Current Size (cm) - Length 0.2 -Current Size (cm) - Width 0.2 -Current Size (cm) - Depth 1.1 -Total Square Cm 0.04 -Photo Taken No -Epithelialization None Present -Tunneling No -Undermining/Tunneling No -Exudate Amt Small (1-33%) -Exudate Type Serosanguineous -Granulation Amt Large (67-100%) -Granulation Quality Pale [place] -Slough/Fibrin No -Necrosis Amt None Present (0 %) -Texture (Amirah-wound Skin Appearance) Scarring -Moisture (Amirah-wound Skin Appearance Maceration ) -Color (Amirah-wound Skin Appearance) Palor -Temperature (Amirah-wound Skin No Abnormality Appearance) (Pt Warm) -Tenderness on Palpation (Amirah-wound No Skin Appearance) -Ulcer Cleansing Rinsed/ Irrigated with Saline -Foul Odor after Cleansing No -Anesthetic Used 4% Lidocaine Solution WC - Nurse 2 - General Ulcer CM Notes Start: 06/19/17 13:47 Freq: Status: Active Protocol: Activity Type Activity Date Activity User E-Sign Co-Sign Detail Recorded Client Recorded Date Recorded By Document 06/19/17 15:02 [id number] 06/19/17 15:04 06/19/17 15:02 Wound Center Nurse 2 [Procedure/Treatment] #7- Stage III pressure ulcer RT GLUTEAL FOLD -Time 15:02 -Correct Patient Yes -Correct Side, Site, Position Yes -Correct Procedure Yes -Procedure Performed Yes -Type of Procedure Debridement -Clinical Debridement Subcutaneous -Post Debridement Size (cm) - Length 3.8 -Post Debridement Size (cm) - Width 3.6 -Post Debridement Size (cm) - Depth 3.1 -Total Square Cm 13.68 -Wound/Ulcer Outcome Not Healed -Ulcer Cleansing Rinsed/ Irrigated with Saline -Foul Odor after Cleansing No -Bioengineered Tissue No -Topical Lidocaine (%) 4 -Bleeding Controlled with Pressure -Treatment Response Procedure Tolerated Well #2 L buttocks stage IV -Time 15:03 -Correct Patient Yes -Correct Side, Site, Position Yes -Correct Procedure Yes -Procedure Performed Yes -Wound/Ulcer Outcome Not Healed -Ulcer Cleansing Rinsed/ Irrigated with Saline -Foul Odor after Cleansing No -Bioengineered Tissue No -Topical Lidocaine (%) 4 -Bleeding Controlled with Pressure -Treatment Response Procedure Tolerated Well [See Physician Procedure note for Specifics] Pain Scale: 0-10 Numeric [Pain] -Is Patient Pain Free? Yes Psych/Mental Status: Normal Affect, Appropriate Debridement Note Post-Debridement Measurements/Treatment WC - Nurse 2 - General Ulcer CM Notes Start: 06/19/17 13:47 Freq: Status: Active Protocol: Activity Type Activity Date Activity User E-Sign Co-Sign Detail Recorded Client Recorded Date Recorded By Document 06/19/17 15:02 [id number] 06/19/17 15:04 06/19/17 15:02 Wound Center Nurse 2 #7- Stage III pressure ulcer RT GLUTEAL FOLD -Time 15:02 -Correct Patient Yes -Correct Side, Site, Position Yes -Correct Procedure Yes -Procedure Performed Yes -Type of Procedure Debridement -Clinical Debridement Subcutaneous -Post Debridement Size (cm) - Length 3.8 -Post Debridement Size (cm) - Width 3.6 -Post Debridement Size (cm) - Depth 3.1 -Total Square Cm 13.68 -Wound/Ulcer Outcome Not Healed -Ulcer Cleansing Rinsed/ Irrigated with Saline -Foul Odor after Cleansing No -Bioengineered Tissue No -Topical Lidocaine (%) 4 -Bleeding Controlled with Pressure -Treatment Response Procedure Tolerated Well #2 L buttocks stage IV -Time 15:03 -Correct Patient Yes -Correct Side, Site, Position Yes -Correct Procedure Yes -Procedure Performed Yes -Wound/Ulcer Outcome Not Healed -Ulcer Cleansing Rinsed/ Irrigated with Saline -Foul Odor after Cleansing No -Bioengineered Tissue No -Topical Lidocaine (%) 4 -Bleeding Controlled with Pressure -Treatment Response Procedure Tolerated Well Pain Scale: 0-10 Numeric Is Patient Pain Free? Yes Wound debrided: Stage III pressure ulcer of right gluteal fold Laterality: Right Wound Grade/Stage: Stage III Type of Debridement: Excisional debridement Anesthesia Used: 5% Lidocaine Gel Depth: Down to and including healthy tissue, in the subcutaneous layer Percentage of wound debrided: 100 Instrument Used: 5mm curette Tissue Removed: yellow slough and devitalized tissue Severity: Fat Layer Exposed Amount of bleeding with debridement: Mild Bleeding Controlled with: Compression and gauze Patient tolerated procedure well Assessment/Plan Active Problems Diabetes mellitus type 2 in nonobese (Chronic) Pressure ulcer of right buttock, stage 3 (Chronic) Pressure sore of left ischium, stage 4 (Chronic) Spinal stenosis (Chronic) Assessment: Pressure ulcer of the left buttock -non healing, despite several deep OR debridements, has not been willing to stay in bed and keep off of wound,and refuses to consider having a muscle flap since it would entail 6 wks in a bed in a F which she thinks would cause more deconditioning and require another few months to restrore her ambulation. wound is remaining free of infection and is not increasing in size but is stable. Right gluteal fold pressure ulcer stage III. left Buttock/ischial ulcer stage III - healed Plan: Right gluteal fold stage III pressure ulcer debrided today and is slightly improved. Wound cultures were positive for staph haemolyticus and proteus mirabilus - she was prescribed clindamycin and augmentin based on sensitivities of wound cultures. She is going to have a suprapubic catheter placed on 07/08/17. Left posterior thigh is healed. Continue with aquacel daily wound packing to left buttocks and will use Aquacel to the right gluteal fold as well. Encouraged to increase protein intake to aid in wound healing and maintain good control of diabetes. Discussed offloading importance in wound healing. F/U in 1 week. Nursing notes reviewed.
--- NOTE | 2017-06-19 18:10 | PN.PCM_ITS ---
(1) Diabetes mellitus type 2 in nonobese Status: Chronic Current Visit: Yes Code(s): E11.9 - Type 2 diabetes mellitus without complications (2) Pressure ulcer of right buttock, stage 3 Status: Chronic Current Visit: Yes Code(s): L89.313 - Pressure ulcer of right buttock, stage 3 (3) Pressure sore of left ischium, stage 4 Status: Chronic Current Visit: Yes Code(s): L89.324 - Pressure ulcer of left buttock, stage 4 (4) Spinal stenosis Status: Chronic Current Visit: Yes Qualifiers: Spinal region: lumbosacral Code(s): M48.00 - Spinal stenosis, site unspecified Type of Wound Date of Service: 06/19/17 Chief Complaint: Left ischial pressure sore, Stage IV. Spinal cord stenosis History of Wound: Patient is a 64-year-old female who has a chronic pressure ulcer of her left ischium. Patient was initially hospitalized for a swelling and redness of her right leg approximately 2014. This was evaluated for cellulitis. She was seen in consultation by infectious disease and plastic surgery. The patient was taken to surgery for an operative debridement of her chronic left ischial ulcer, underwent wound vac treatment and IV antibiotics. She was abruptly released from the ECF after only a few wks, before end of therapy. She had finished her IV antibiotics for Grp A strep osteomyelitis at home and continued with PT at home as well. She has decided to go with the conservative care route since she feels that her quality of life is more important than healing out the wound but had continued to keep the wound vac. The wound vac was discontinued by her insurance for failure to show improvement in the size of her wound. She has been being seen monthly for conservative/ palliative care of her pressure ulcer of her left ischium. She has home health visiting weekly to assess her wound and monthly visits to the wound center. She has been tolerating this treatment well. She has recently started getting pressure ulcers of her right buttocks. January 2017, she underwent treatment after developing pressure ulcers which occurred from urinary incontinence issues associated with a chronic UTI and leakage of her catheter. She developed another pressure ulcer of her right buttock on or around April 20, 2017 and presents for treatment of this area as well as continued treatment of her left ischial pressure ulcer. She has been using Rain to the right buttock and continues to use Aquacel to the left ischium/buttock. Denies fever, chills or increased pain. Progress of Wound: Patient continues with conservative care management of left ischium - aquacel dressing to wound daily. No concerns for infection in this pressure ulcer at this time. The pressure ulcer of her right gluteal fold is smaller in depth this week. Wound culture done last week showed staph haemolyticus and proteus but was negative for anaerobic bacteria. The skin tear of left thigh and sacral area are healed. She denies increased pain or increased drainage. She continues to sit in her wheelchair frequently for long periods of time but has tried to offload more. - Physical Exam Vital Signs Temp Pulse Resp BP 97.8 F 115 H 18 109/72 06/19/17 13:53 06/19/17 13:53 06/19/17 13:53 06/19/17 13:53 General: Alert, Oriented x3, Cooperative, No apparent distress HEENT: Atraumatic, Normocephalic Oral: Moist Mucosa Abdomen: Obese Skin: Ulcer/ Wound Wound Measurements and Assessment WC - Nurse 1 - General Ulcer Measurement Start: 06/19/17 13:47 Freq: Status: Active Protocol: Activity Type Activity Date Activity User E-Sign Co-Sign Detail Recorded Client Recorded Date Recorded By Document 06/19/17 13:53 [facility] [id number] 06/19/17 14:07 [facility] 06/19/17 13:53 Wound Center Nurse 1 [Ulcer Assessment] #7- Stage III pressure ulcer RT GLUTEAL FOLD -Combined with other wound No -Current Size (cm) - Length 3.9 -Current Size (cm) - Width 2.6 -Current Size (cm) - Depth 3.1 -Total Square Cm 10.14 -Photo Taken No -Epithelialization None Present -Tunneling No -Undermining/Tunneling No -Exudate Amt Medium (34-66%) -Exudate Type Serosanguineous -Wound Margin Distinct, Outline Attached -Granulation Amt Medium (34-66%) -Granulation Quality Pale Red -Slough/Fibrin Yes -Necrosis Amt Small (1-33%) -Necrotic Tissue Type Adherent Slough -Texture (Amirah-wound Skin Appearance) Scarring -Moisture (Amirah-wound Skin Appearance Assessed ) -Color (Amirah-wound Skin Appearance) Erythema -Temperature (Amirah-wound Skin No Abnormality Appearance) (Pt Warm) -Tenderness on Palpation (Amirah-wound No Skin Appearance) -Ulcer Cleansing Rinsed/ Irrigated with Saline -Foul Odor after Cleansing No -Anesthetic Used 4% Lidocaine Solution #2 L buttocks stage IV -Combined with other wound No -Current Size (cm) - Length 0.2 -Current Size (cm) - Width 0.2 -Current Size (cm) - Depth 1.1 -Total Square Cm 0.04 -Photo Taken No -Epithelialization None Present -Tunneling No -Undermining/Tunneling No -Exudate Amt Small (1-33%) -Exudate Type Serosanguineous -Granulation Amt Large (67-100%) -Granulation Quality Pale [place] -Slough/Fibrin No -Necrosis Amt None Present (0 %) -Texture (Amirah-wound Skin Appearance) Scarring -Moisture (Amirah-wound Skin Appearance Maceration ) -Color (Amirah-wound Skin Appearance) Palor -Temperature (Amirah-wound Skin No Abnormality Appearance) (Pt Warm) -Tenderness on Palpation (Amirah-wound No Skin Appearance) -Ulcer Cleansing Rinsed/ Irrigated with Saline -Foul Odor after Cleansing No -Anesthetic Used 4% Lidocaine Solution WC - Nurse 2 - General Ulcer CM Notes Start: 06/19/17 13:47 Freq: Status: Active Protocol: Activity Type Activity Date Activity User E-Sign Co-Sign Detail Recorded Client Recorded Date Recorded By Document 06/19/17 15:02 [id number] 06/19/17 15:04 06/19/17 15:02 Wound Center Nurse 2 [Procedure/Treatment] #7- Stage III pressure ulcer RT GLUTEAL FOLD -Time 15:02 -Correct Patient Yes -Correct Side, Site, Position Yes -Correct Procedure Yes -Procedure Performed Yes -Type of Procedure Debridement -Clinical Debridement Subcutaneous -Post Debridement Size (cm) - Length 3.8 -Post Debridement Size (cm) - Width 3.6 -Post Debridement Size (cm) - Depth 3.1 -Total Square Cm 13.68 -Wound/Ulcer Outcome Not Healed -Ulcer Cleansing Rinsed/ Irrigated with Saline -Foul Odor after Cleansing No -Bioengineered Tissue No -Topical Lidocaine (%) 4 -Bleeding Controlled with Pressure -Treatment Response Procedure Tolerated Well #2 L buttocks stage IV -Time 15:03 -Correct Patient Yes -Correct Side, Site, Position Yes -Correct Procedure Yes -Procedure Performed Yes -Wound/Ulcer Outcome Not Healed -Ulcer Cleansing Rinsed/ Irrigated with Saline -Foul Odor after Cleansing No -Bioengineered Tissue No -Topical Lidocaine (%) 4 -Bleeding Controlled with Pressure -Treatment Response Procedure Tolerated Well [See Physician Procedure note for Specifics] Pain Scale: 0-10 Numeric [Pain] -Is Patient Pain Free? Yes Psych/Mental Status: Normal Affect, Appropriate Debridement Note Post-Debridement Measurements/Treatment WC - Nurse 2 - General Ulcer CM Notes Start: 06/19/17 13:47 Freq: Status: Active Protocol: Activity Type Activity Date Activity User E-Sign Co-Sign Detail Recorded Client Recorded Date Recorded By Document 06/19/17 15:02 [id number] 06/19/17 15:04 06/19/17 15:02 Wound Center Nurse 2 #7- Stage III pressure ulcer RT GLUTEAL FOLD -Time 15:02 -Correct Patient Yes -Correct Side, Site, Position Yes -Correct Procedure Yes -Procedure Performed Yes -Type of Procedure Debridement -Clinical Debridement Subcutaneous -Post Debridement Size (cm) - Length 3.8 -Post Debridement Size (cm) - Width 3.6 -Post Debridement Size (cm) - Depth 3.1 -Total Square Cm 13.68 -Wound/Ulcer Outcome Not Healed -Ulcer Cleansing Rinsed/ Irrigated with Saline -Foul Odor after Cleansing No -Bioengineered Tissue No -Topical Lidocaine (%) 4 -Bleeding Controlled with Pressure -Treatment Response Procedure Tolerated Well #2 L buttocks stage IV -Time 15:03 -Correct Patient Yes -Correct Side, Site, Position Yes -Correct Procedure Yes -Procedure Performed Yes -Wound/Ulcer Outcome Not Healed -Ulcer Cleansing Rinsed/ Irrigated with Saline -Foul Odor after Cleansing No -Bioengineered Tissue No -Topical Lidocaine (%) 4 -Bleeding Controlled with Pressure -Treatment Response Procedure Tolerated Well Pain Scale: 0-10 Numeric Is Patient Pain Free? Yes Wound debrided: Stage III pressure ulcer of right gluteal fold Laterality: Right Wound Grade/Stage: Stage III Type of Debridement: Excisional debridement Anesthesia Used: 5% Lidocaine Gel Depth: Down to and including healthy tissue, in the subcutaneous layer Percentage of wound debrided: 100 Instrument Used: 5mm curette Tissue Removed: yellow slough and devitalized tissue Severity: Fat Layer Exposed Amount of bleeding with debridement: Mild Bleeding Controlled with: Compression and gauze Patient tolerated procedure well Assessment/Plan Active Problems Diabetes mellitus type 2 in nonobese (Chronic) Pressure ulcer of right buttock, stage 3 (Chronic) Pressure sore of left ischium, stage 4 (Chronic) Spinal stenosis (Chronic) Assessment: Pressure ulcer of the left buttock -non healing, despite several deep OR debridements, has not been willing to stay in bed and keep off of wound, and refuses to consider having a muscle flap since it would entail 6 wks in a bed in a F which she thinks would cause more deconditioning and require another few months to restrore her ambulation. wound is remaining free of infection and is not increasing in size but is stable. Right gluteal fold pressure ulcer stage III. left Buttock/ischial ulcer stage III - healed Plan: Right gluteal fold stage III pressure ulcer debrided today and is slightly improved. Wound cultures were positive for staph haemolyticus and proteus mirabilus - she was prescribed clindamycin and augmentin based on sensitivities of wound cultures. She is going to have a suprapubic catheter placed on 07/08/17. Left posterior thigh is healed. Continue with aquacel daily wound packing to left buttocks and will use Aquacel to the right gluteal fold as well. Encouraged to increase protein intake to aid in wound healing and maintain good control of diabetes. Discussed offloading importance in wound healing. F/U in 1 week. Nursing notes reviewed.
[2017-06-26 14:28] VITALS: BP 119/71; PULSE 106; RESP 16; TEMP 36.4
--- NOTE | 2017-06-26 15:35 | PN.PCM_ITS ---
(1) Diabetes mellitus type 2 in nonobese Status: Chronic Current Visit: Yes Code(s): E11.9 - Type 2 diabetes mellitus without complications (2) Pressure ulcer of right buttock, stage 3 Status: Chronic Current Visit: Yes Code(s): L89.313 - Pressure ulcer of right buttock, stage 3 (3) Pressure sore of left ischium, stage 4 Status: Chronic Current Visit: Yes Code(s): L89.324 - Pressure ulcer of left buttock, stage 4 (4) Spinal stenosis Status: Chronic Current Visit: Yes Qualifiers: Spinal region: lumbosacral Code(s): M48.00 - Spinal stenosis, site unspecified Type of Wound Date of Service: 06/26/17 Chief Complaint: Left ischial pressure sore, Stage IV. Spinal cord stenosis History of Wound: Patient is a 64-year-old female who has a chronic pressure ulcer of her left ischium. Patient was initially hospitalized for a swelling and redness of her right leg approximately 2014. This was evaluated for cellulitis. She was seen in consultation by infectious disease and plastic surgery. The patient was taken to surgery for an operative debridement of her chronic left ischial ulcer, underwent wound vac treatment and IV antibiotics. She was abruptly released from the ECF after only a few wks, before end of therapy. She had finished her IV antibiotics for Grp A strep osteomyelitis at home and continued with PT at home as well. She has decided to go with the conservative care route since she feels that her quality of life is more important than healing out the wound but had continued to keep the wound vac. The wound vac was discontinued by her insurance for failure to show improvement in the size of her wound. She has been being seen monthly for conservative/ palliative care of her pressure ulcer of her left ischium. She has home health visiting weekly to assess her wound and monthly visits to the wound center. She has been tolerating this treatment well. She has recently started getting pressure ulcers of her right buttocks. January 2017, she underwent treatment after developing pressure ulcers which occurred from urinary incontinence issues associated with a chronic UTI and leakage of her catheter. She developed another pressure ulcer of her right buttock on or around April 20, 2017 and presents for treatment of this area as well as continued treatment of her left ischial pressure ulcer. She has been using Rain to the right buttock and continues to use Aquacel to the left ischium/buttock. Denies fever, chills or increased pain. Progress of Wound: Patient continues with conservative care management of left ischium - aquacel dressing to wound daily. No concerns for infection in this pressure ulcer at this time. The pressure ulcer of her right gluteal fold is about the same this week but tissue and wound bed look healthy. She still has a week of antibiotics left. The skin tear of left thigh and sacral area are healed but left thigh is slightly irritated. She denies increased pain but does note increased drainage from right gluteal fold. She continues to sit in her wheelchair frequently for long periods of time but has tried to offload more. - Physical Exam Vital Signs Temp Pulse Resp BP 97.5 F L 106 H 16 119/71 06/26/17 14:28 06/26/17 14:28 06/26/17 14:28 06/26/17 14:28 General: Alert, Oriented x3, Cooperative, No apparent distress HEENT: Atraumatic, Normocephalic Oral: Moist Mucosa Skin: Ulcer/ Wound Wound Measurements and Assessment WC - Nurse 1 - General Ulcer Measurement Start: 06/19/17 13:47 Freq: Status: Active Protocol: Activity Type Activity Date Activity User E-Sign Co-Sign Detail Recorded Client Recorded Date Recorded By Document 06/26/17 14:28 DV [id number] 06/26/17 14:32 DV 06/26/17 14:28 Wound Center Nurse 1 [Ulcer Assessment] #7- Stage III pressure ulcer RT GLUTEAL FOLD -Combined with other wound No -Current Size (cm) - Length 3.0 -Current Size (cm) - Width 3.3 -Current Size (cm) - Depth 3.8 -Total Square Cm 9.90 -Photo Taken No -Epithelialization Small 1-33% -Tunneling No -Undermining/Tunneling No -Circular Undermining No -Classification - Thickness Full Thickness without Exposed Support Structure -Exudate Amt Large (67-100%) -Exudate Type Sanguineous -Wound Margin Distinct, Outline Attached -Granulation Amt Small (1-33%) -Granulation Quality Pale -Slough/Fibrin Yes -Necrosis Amt Large (67-100%) -Necrotic Tissue Type Adherent Slough -Structure Exposed None/Limited to Skin Breakdown -Texture (Amirah-wound Skin Appearance) Assessed Localized Edema -Moisture (Amirah-wound Skin Appearance Assessed ) Maceration Weeping -Color (Amirah-wound Skin Appearance) Assessed Erythema -Temperature (Amirah-wound Skin No Abnormality Appearance) (Pt Warm) -Ulcer Cleansing Rinsed/ Irrigated with Saline -Foul Odor after Cleansing No -Anesthetic Used 4% Lidocaine Solution WC - Nurse 2 - General Ulcer CM Notes Start: 06/19/17 13:47 Freq: Status: Active Protocol: Activity Type Activity Date Activity User E-Sign Co-Sign Detail Recorded Client Recorded Date Recorded By Document 06/26/17 14:45 [id number] 06/26/17 14:51 TM 06/26/17 14:45 Wound Center Nurse 2 [Procedure/Treatment] -Time 14:45 -Correct Patient Yes -Correct Side, Site, Position Yes -Correct Procedure Yes -Procedure Performed Yes -Type of Procedure Debridement -Clinical Debridement Subcutaneous -Post Debridement Size (cm) - Length 3.8 -Post Debridement Size (cm) - Width 3.6 -Post Debridement Size (cm) - Depth 3.1 -Total Square Cm 13.68 -Wound/Ulcer Outcome Not Healed -Ulcer Cleansing Rinsed/ Irrigated with Saline -Foul Odor after Cleansing No -Bioengineered Tissue No -Topical Lidocaine (%) 4 -Bleeding Controlled with Pressure -Treatment Response Procedure Tolerated Well #2 L buttocks stage IV -Time 14:45 -Correct Patient Yes -Correct Side, Site, Position Yes -Correct Procedure Yes -Procedure Performed Yes -Wound/Ulcer Outcome Not Healed -Ulcer Cleansing Rinsed/ Irrigated with Saline -Foul Odor after Cleansing No -Bioengineered Tissue No -Topical Lidocaine (%) 4 -Bleeding Controlled with NA -Other no debridement today -Treatment Response Procedure Tolerated Well [See Physician Procedure note for Specifics] Pain Scale: 0-10 Numeric [Pain] -Is Patient Pain Free? Yes Psych/Mental Status: Normal Affect, Appropriate Debridement Note Post-Debridement Measurements/Treatment WC - Nurse 2 - General Ulcer CM Notes Start: 06/19/17 13:47 Freq: Status: Active Protocol: Activity Type Activity Date Activity User E-Sign Co-Sign Detail Recorded Client Recorded Date Recorded By Document 06/19/17 15:02 TM [id number] 06/19/17 15:04 TM Document 06/26/17 14:45 [id number] 03/09/18 14:51 TM 06/19/17 06/26/17 15:02 14:45 Wound Center Nurse 2 #7- Stage III pressure ulcer RT GLUTEAL FOLD -Time 15:02 14:45 -Correct Patient Yes Yes -Correct Side, Site, Position Yes Yes -Correct Procedure Yes Yes -Procedure Performed Yes Yes -Type of Procedure Debridement Debridement -Clinical Debridement Subcutaneous Subcutaneous -Post Debridement Size (cm) - Length 3.8 3.8 -Post Debridement Size (cm) - Width 3.6 3.6 -Post Debridement Size (cm) - Depth 3.1 3.1 -Total Square Cm 13.68 13.68 -Wound/Ulcer Outcome Not Healed Not Healed -Ulcer Cleansing Rinsed/ Rinsed/ Irrigated with Irrigated with Saline Saline -Foul Odor after Cleansing No No -Bioengineered Tissue No No -Topical Lidocaine (%) 4 4 -Bleeding Controlled with Pressure Pressure -Treatment Response Procedure Procedure Tolerated Well Tolerated Well #2 L buttocks stage IV -Time 15:03 14:45 -Correct Patient Yes Yes -Correct Side, Site, Position Yes Yes -Correct Procedure Yes Yes -Procedure Performed Yes Yes -Wound/Ulcer Outcome Not Healed Not Healed -Ulcer Cleansing Rinsed/ Rinsed/ Irrigated with Irrigated with Saline Saline -Foul Odor after Cleansing No No -Bioengineered Tissue No No -Topical Lidocaine (%) 4 4 -Bleeding Controlled with Pressure NA -Other no debridement today -Treatment Response Procedure Procedure Tolerated Well Tolerated Well Pain Scale: 0-10 Numeric Is Patient Pain Free? Yes Yes Wound debrided: stage IV pressure ulcer left buttock Laterality: Left Wound Grade/Stage: stage IV No debridement was completed today - Additional Wound Wound debrided: Stage III pressure ulcer right gluteal fold Laterality: Right Wound Grade/Stage: Stage III Type of Debridement: Excisional debridement Anesthesia Used: 4% Lidocaine Solution Depth: Down to and including healthy tissue, in the subcutaneous layer Percentage of wound debrided: 100 Instrument Used: 5mm curette Tissue Removed: yellow slough, devitalized tissue Severity: Fat Layer Exposed Amount of bleeding with debridement: Mild Bleeding Controlled with: Compression and gauze Patient tolerated procedure: Patient tolerated procedure well Assessment/Plan Active Problems Diabetes mellitus type 2 in nonobese (Chronic) Pressure ulcer of right buttock, stage 3 (Chronic) Pressure sore of left ischium, stage 4 (Chronic) Spinal stenosis (Chronic) Assessment: Pressure ulcer of the left buttock -non healing, despite several deep OR debridements, has not been willing to stay in bed and keep off of wound, and refuses to consider having a muscle flap since it would entail 6 wks in a bed in a ECF which she thinks would cause more deconditioning and require another few months to restrore her ambulation. wound is remaining free of infection and is not increasing in size but is stable. Right gluteal fold pressure ulcer stage III. left Buttock/ischial ulcer stage III - healed Plan: Right gluteal fold stage III pressure ulcer debrided today and is slightly improved in wound bed and amount of slough. She is going to have a suprapubic catheter placed on 07/08/17. Left posterior thigh is healed but is slightly erythematous. Continue with aquacel daily wound packing to left buttocks and will use Aquacel to the right gluteal fold as well but have them change daily to right gluteal fold. Will have them place rain to left posterior thigh over this week to maintain healing. Encouraged to increase protein intake to aid in wound healing and maintain good control of diabetes. Discussed offloading importance in wound healing. F/U in 1 week. Nursing notes reviewed.
[2017-07-03 14:57] VITALS: BP 121/62; PULSE 106; RESP 16; TEMP 37
--- NOTE | 2017-07-03 19:21 | PCM.WC.PN ---
(1) Diabetes mellitus type 2 in nonobese Status: Chronic Current Visit: Yes Code(s): E11.9 - Type 2 diabetes mellitus without complications (2) Pressure ulcer of right buttock, stage 3 Status: Chronic Current Visit: Yes Code(s): L89.313 - Pressure ulcer of right buttock, stage 3 (3) Pressure sore of left ischium, stage 4 Status: Chronic Current Visit: Yes Code(s): L89.324 - Pressure ulcer of left buttock, stage 4 (4) Spinal stenosis Status: Chronic Current Visit: Yes Qualifiers: Spinal region: lumbosacral Code(s): M48.00 - Spinal stenosis, site unspecified Type of Wound Date of Service: 07/03/17 Chief Complaint: Left ischial pressure sore, Stage IV. Spinal cord stenosis History of Wound: Patient is a 64-year-old female who has a chronic pressure ulcer of her left ischium. Patient was initially hospitalized for a swelling and redness of her right leg approximately 2014. This was evaluated for cellulitis. She was seen in consultation by infectious disease and plastic surgery. The patient was taken to surgery for an operative debridement of her chronic left ischial ulcer, underwent wound vac treatment and IV antibiotics. She was abruptly released from the ECF after only a few wks, before end of therapy. She had finished her IV antibiotics for Grp A strep osteomyelitis at home and continued with PT at home as well. She has decided to go with the conservative care route since she feels that her quality of life is more important than healing out the wound but had continued to keep the wound vac. The wound vac was discontinued by her insurance for failure to show improvement in the size of her wound. She has been being seen monthly for conservative/palliative care of her pressure ulcer of her left ischium. She has home health visiting weekly to assess her wound and monthly visits to the wound center. She has been tolerating this treatment well. She has recently started getting pressure ulcers of her right buttocks. January 2017, she underwent treatment after developing pressure ulcers which occurred from urinary incontinence issues associated with a chronic UTI and leakage of her catheter. She developed another pressure ulcer of her right buttock on or around April 20, 2017 and presents for treatment of this area as well as continued treatment of her left ischial pressure ulcer. She has been using Rain to the right buttock and continues to use Aquacel to the left ischium/buttock. Denies fever, chills or increased pain. Progress of Wound: Patient continues with conservative care management of left ischium - aquacel dressing to wound daily. No concerns for infection in this pressure ulcer at this time. The pressure ulcer of her right gluteal fold is about the same this week but tissue and wound bed still look healthy. The skin tear of left thigh is about the same. She denies increased pain but does note increased drainage from right gluteal fold. She continues to sit in her wheelchair frequently for long periods of time but has tried to offload more. - Physical Exam Vital Signs Temp Pulse Resp BP 98.6 F 106 H 16 121/62 H 07/03/17 14:57 07/03/17 14:57 07/03/17 14:57 07/03/17 14:57 General: Alert, Oriented x3, Cooperative, No apparent distress HEENT: Atraumatic, Normocephalic Oral: Moist Mucosa Abdomen: Soft, Non Tender, Obese Skin: Ulcer/ Wound Wound Measurements and Assessment WC - Nurse 1 - General Ulcer Measurement Start: 06/19/17 13:47 Freq: Status: Active Protocol: Activity Type Activity Date Activity User E-Sign Co-Sign Detail Recorded Client Recorded Date Recorded By Document 07/03/17 14:57 MW [id number] 07/03/17 15:04 MW 07/03/17 14:57 Wound Center Nurse 1 [Ulcer Assessment] # 9 left upper thigh -Combined with other wound No -Current Size (cm) - Length 1.8 -Current Size (cm) - Width 2.5 -Current Size (cm) - Depth 0.1 -Total Square Cm 4.50 -Photo Taken No -Epithelialization None Present -Tunneling No -Undermining/Tunneling No -Circular Undermining No -Exudate Amt Small (1-33%) -Exudate Type Sanguineous -Wound Margin Flat & Intact -Granulation Amt Large (67-100%) -Granulation Quality Red -Slough/Fibrin Yes -Necrosis Amt Small (1-33%) -Structure Exposed N/A -Texture (Amirah-wound Skin Appearance) No Abnormality Assessed -Moisture (Amirah-wound Skin Appearance Assessed ) Maceration -Color (Amirah-wound Skin Appearance) No Abnormality Assessed -Temperature (Amirah-wound Skin No Abnormality Appearance) (Pt Warm) -Tenderness on Palpation (Amirah-wound No Skin Appearance) -Ulcer Cleansing Rinsed/ Irrigated with Saline -Foul Odor after Cleansing No -Anesthetic Used 4% Lidocaine Solution #7- Stage III pressure ulcer RT GLUTEAL FOLD -Combined with other wound No -Current Size (cm) - Length 3.8 -Current Size (cm) - Width 3.0 -Current Size (cm) - Depth 3.2 -Total Square Cm 11.40 -Photo Taken No -Epithelialization None Present -Tunneling No -Undermining/Tunneling No -Circular Undermining No -Exudate Amt Large (67-100%) -Exudate Type Serosanguineous -Wound Margin Distinct, Outline Attached -Granulation Amt Medium (34-66%) -Granulation Quality Brutus -Slough/Fibrin Yes -Necrosis Amt Medium (34-66%) -Necrotic Tissue Type Adherent Slough -Structure Exposed N/A -Texture (Aimrah-wound Skin Appearance) No Abnormality Assessed -Moisture (Amirah-wound Skin Appearance Assessed ) Maceration -Color (Amirah-wound Skin Appearance) No Abnormality Assessed -Temperature (Amirah-wound Skin No Abnormality Appearance) (Pt Warm) -Tenderness on Palpation (Amirah-wound Yes Skin Appearance) -Foul Odor after Cleansing No -Anesthetic Used 4% Lidocaine Solution [Edema Assessment] -Lower Limb Edema Present No WC - Nurse 2 - General Ulcer CM Notes Start: 06/19/17 13:47 Freq: Status: Active Protocol: Activity Type Activity Date Activity User E-Sign Co-Sign Detail Recorded Client Recorded Date Recorded By Document 07/03/17 15:18 [id number] 07/03/17 15:31 07/03/17 15:18 Wound Center Nurse 2 [Procedure/Treatment] # 9 left upper thigh -Time 15:28 -Correct Patient Yes -Correct Side, Site, Position Yes -Correct Procedure Yes -Procedure Performed Yes -Type of Procedure Debridement -Clinical Debridement Subcutaneous -Post Debridement Size (cm) - Length 2.5 -Post Debridement Size (cm) - Width 1.5 -Post Debridement Size (cm) - Depth 0.1 -Total Square Cm 3.75 -Wound/Ulcer Outcome Not Healed -Ulcer Cleansing Rinsed/ Irrigated with Saline -Foul Odor after Cleansing No -Bioengineered Tissue No -Topical Lidocaine (%) 4 -Bleeding Controlled with Pressure -Treatment Response Procedure Tolerated Well #7- Stage III pressure ulcer RT GLUTEAL FOLD -Time 15:28 -Correct Patient Yes -Correct Side, Site, Position Yes -Correct Procedure Yes -Procedure Performed Yes -Type of Procedure Debridement -Clinical Debridement Subcutaneous -Post Debridement Size (cm) - Length 3.8 -Post Debridement Size (cm) - Width 3.5 -Post Debridement Size (cm) - Depth 2.4 -Total Square Cm 13.30 -Wound/Ulcer Outcome Not Healed -Ulcer Cleansing Rinsed/ Irrigated with Saline -Foul Odor after Cleansing No -Bioengineered Tissue No -Topical Lidocaine (%) 4 -Bleeding Controlled with Pressure -Treatment Response Procedure Tolerated Well #10 L buttocks stage IV -Time 15:29 -Correct Patient Yes -Correct Side, Site, Position Yes -Correct Procedure Yes -Procedure Performed Yes -Type of Procedure Debridement -Clinical Debridement Subcutaneous -Post Debridement Size (cm) - Length 0.5 -Post Debridement Size (cm) - Width 0.2 -Post Debridement Size (cm) - Depth 0.3 -Total Square Cm 0.10 -Wound/Ulcer Outcome Not Healed -Ulcer Cleansing Rinsed/ Irrigated with Saline -Foul Odor after Cleansing No -Bioengineered Tissue No -Topical Lidocaine (%) 4 -Bleeding Controlled with Pressure -Treatment Response Procedure Tolerated Well [See Physician Procedure note for Specifics] Pain Scale: 0-10 Numeric [Pain] -Is Patient Pain Free? Yes Psych/Mental Status: Normal Affect, Appropriate Debridement Note Post-Debridement Measurements/Treatment WC - Nurse 2 - General Ulcer CM Notes Start: 06/19/17 13:47 Freq: Status: Active Protocol: Activity Type Activity Date Activity User E-Sign Co-Sign Detail Recorded Client Recorded Date Recorded By Document 06/19/17 15:02 TM [id number] 06/19/17 15:04 TM Document 06/26/17 14:45 [email or web address] [id number] 06/26/17 14:51 TM Document 07/03/17 15:18 TM [id number] 07/03/17 15:31 TM 06/19/17 06/26/17 07/03/17 15:02 14:45 15:18 Wound Center Nurse 2 # 9 left upper thigh -Time 15:28 -Correct Patient Yes -Correct Side, Site, Position Yes -Correct Procedure Yes -Procedure Performed Yes -Type of Procedure Debridement -Clinical Debridement Subcutaneous -Post Debridement Size (cm) - Length 2.5 -Post Debridement Size (cm) - Width 1.5 -Post Debridement Size (cm) - Depth 0.1 -Total Square Cm 3.75 -Wound/Ulcer Outcome Not Healed -Ulcer Cleansing Rinsed/ Irrigated with Saline -Foul Odor after Cleansing No -Bioengineered Tissue No -Topical Lidocaine (%) 4 -Bleeding Controlled with Pressure -Treatment Response Procedure Tolerated Well #7- Stage III pressure ulcer RT GLUTEAL FOLD -Time 15:02 14:45 15:28 -Correct Patient Yes Yes Yes -Correct Side, Site, Position Yes Yes Yes -Correct Procedure Yes Yes Yes -Procedure Performed Yes Yes Yes -Type of Procedure Debridement Debridement Debridement -Clinical Debridement Subcutaneous Subcutaneous Subcutaneous -Post Debridement Size (cm) - Length 3.8 3.8 3.8 -Post Debridement Size (cm) - Width 3.6 3.6 3.5 -Post Debridement Size (cm) - Depth 3.1 3.1 2.4 -Total Square Cm 13.68 13.68 13.30 -Wound/Ulcer Outcome Not Healed Not Healed Not Healed -Ulcer Cleansing Rinsed/ Rinsed/ Rinsed/ Irrigated with Irrigated with Irrigated with Saline Saline Saline -Foul Odor after Cleansing No No No -Bioengineered Tissue No No No -Topical Lidocaine (%) 4 4 4 -Bleeding Controlled with Pressure Pressure Pressure -Treatment Response Procedure Procedure Procedure Tolerated Well Tolerated Well Tolerated Well #10 L buttocks stage IV -Time 15:03 14:45 15:29 -Correct Patient Yes Yes Yes -Correct Side, Site, Position Yes Yes Yes -Correct Procedure Yes Yes Yes -Procedure Performed Yes Yes Yes -Type of Procedure Debridement -Clinical Debridement Subcutaneous -Post Debridement Size (cm) - Length 0.5 -Post Debridement Size (cm) - Width 0.2 -Post Debridement Size (cm) - Depth 0.3 -Total Square Cm 0.10 -Wound/Ulcer Outcome Not Healed Not Healed Not Healed -Ulcer Cleansing Rinsed/ Rinsed/ Rinsed/ Irrigated with Irrigated with Irrigated with Saline Saline Saline -Foul Odor after Cleansing No No No -Bioengineered Tissue No No No -Topical Lidocaine (%) 4 4 4 -Bleeding Controlled with Pressure NA Pressure -Other no debridement today -Treatment Response Procedure Procedure Procedure Tolerated Well Tolerated Well Tolerated Well Pain Scale: 0-10 Numeric Is Patient Pain Free? Yes Yes Yes Wound debrided: left upper thigh Laterality: Left Wound Grade/Stage: Stage II Type of Debridement: Excisional debridement Anesthesia Used: 4% Lidocaine Solution Depth: Down to and including healthy tissue, in the subcutaneous layer Percentage of wound debrided: 100 Instrument Used: 5mm curette Tissue Removed: yellow slough and devitalized tissue Severity: Fat Layer Exposed Amount of bleeding with debridement: Mild Bleeding Controlled with: Compression and gauze Patient tolerated procedure well - Additional Wound Wound debrided: Stage III pressure ulcer of right gluteal fold Laterality: Right Wound Grade/Stage: yellow slough and devitalized tissue Type of Debridement: Excisional debridement Anesthesia Used: 4% Lidocaine Solution Depth: Down to and including healthy tissue, in the subcutaneous layer Percentage of wound debrided: 100 Instrument Used: 5mm curette Tissue Removed: yellow slough and devitalized tissue Severity: Fat Layer Exposed Amount of bleeding with debridement: Mild Bleeding Controlled with: Compression and gauze Patient tolerated procedure: Patient tolerated procedure well - Additional Wound Wound debrided: left buttocks stage IV Laterality: Left Wound Grade/Stage: Stage IV Type of Debridement: Excisional debridement Anesthesia Used: 4% Lidocaine Solution Depth: Down to and including healthy tissue, in the subcutaneous layer Percentage of wound debrided: 100 Instrument Used: 3mm curette Tissue Removed: yellow slough and devitalized tissue Severity: Fat Layer Exposed Amount of bleeding with debridement: Mild Bleeding Controlled with: Compression and gauze Patient tolerated procedure: Patient tolerated procedure well Assessment/Plan Active Problems Diabetes mellitus type 2 in nonobese (Chronic) Pressure ulcer of right buttock, stage 3 (Chronic) Pressure sore of left ischium, stage 4 (Chronic) Spinal stenosis (Chronic) Assessment: Pressure ulcer of the left buttock -non healing, despite several deep OR debridements, has not been willing to stay in bed and keep off of wound,and refuses to consider having a muscle flap since it would entail 6 wks in a bed in a [facility] which she thinks would cause more deconditioning and require another few months to restrore her ambulation. wound is remaining free of infection and is not increasing in size but is stable. Right gluteal fold pressure ulcer stage III. left Buttock/ischial ulcer stage III - healed Plan: Right gluteal fold stage III pressure ulcer debrided today and is slightly improved in wound bed and amount of slough. She is going to have a suprapubic catheter placed on 07/08/17. Left posterior thigh is worse. Continue with aquacel daily wound packing to left buttocks and will use Aquacel to the right gluteal fold as well but have them change daily to right gluteal fold. Will have them place rain to left posterior thigh. Encouraged to increase protein intake to aid in wound healing and maintain good control of diabetes. Discussed offloading importance in wound healing. F/U in 2 weeks. Nursing notes reviewed.
--- NOTE | 2017-07-03 19:29 | PN.PCM_ITS ---
(1) Diabetes mellitus type 2 in nonobese Status: Chronic Current Visit: Yes Code(s): E11.9 - Type 2 diabetes mellitus without complications (2) Pressure ulcer of right buttock, stage 3 Status: Chronic Current Visit: Yes Code(s): L89.313 - Pressure ulcer of right buttock, stage 3 (3) Pressure sore of left ischium, stage 4 Status: Chronic Current Visit: Yes Code(s): L89.324 - Pressure ulcer of left buttock, stage 4 (4) Spinal stenosis Status: Chronic Current Visit: Yes Qualifiers: Spinal region: lumbosacral Code(s): M48.00 - Spinal stenosis, site unspecified Type of Wound Date of Service: 07/03/17 Chief Complaint: Left ischial pressure sore, Stage IV. Spinal cord stenosis History of Wound: Patient is a 64-year-old female who has a chronic pressure ulcer of her left ischium. Patient was initially hospitalized for a swelling and redness of her right leg approximately 2014. This was evaluated for cellulitis. She was seen in consultation by infectious disease and plastic surgery. The patient was taken to surgery for an operative debridement of her chronic left ischial ulcer, underwent wound vac treatment and IV antibiotics. She was abruptly released from the [facility] after only a few wks, before end of therapy. She had finished her IV antibiotics for Grp A strep osteomyelitis at home and continued with PT at home as well. She has decided to go with the conservative care route since she feels that her quality of life is more important than healing out the wound but had continued to keep the wound vac. The wound vac was discontinued by her insurance for failure to show improvement in the size of her wound. She has been being seen monthly for conservative/ palliative care of her pressure ulcer of her left ischium. She has home health visiting weekly to assess her wound and monthly visits to the wound center. She has been tolerating this treatment well. She has recently started getting pressure ulcers of her right buttocks. January 2017, she underwent treatment after developing pressure ulcers which occurred from urinary incontinence issues associated with a chronic UTI and leakage of her catheter. She developed another pressure ulcer of her right buttock on or around April 20, 2017 and presents for treatment of this area as well as continued treatment of her left ischial pressure ulcer. She has been using Rain to the right buttock and continues to use Aquacel to the left ischium/buttock. Denies fever, chills or increased pain. Progress of Wound: Patient continues with conservative care management of left ischium - aquacel dressing to wound daily. No concerns for infection in this pressure ulcer at this time. The pressure ulcer of her right gluteal fold is about the same this week but tissue and wound bed still look healthy. The skin tear of left thigh is about the same. She denies increased pain but does note increased drainage from right gluteal fold. She continues to sit in her wheelchair frequently for long periods of time but has tried to offload more. - Physical Exam Vital Signs Temp Pulse Resp BP 98.6 F 106 H 16 121/62 H 07/03/17 14:57 07/03/17 14:57 07/03/17 14:57 07/03/17 14:57 General: Alert, Oriented x3, Cooperative, No apparent distress HEENT: Atraumatic, Normocephalic Oral: Moist Mucosa Abdomen: Soft, Non Tender, Obese Skin: Ulcer/ Wound Wound Measurements and Assessment WC - Nurse 1 - General Ulcer Measurement Start: 06/19/17 13:47 Freq: Status: Active Protocol: Activity Type Activity Date Activity User E-Sign Co-Sign Detail Recorded Client Recorded Date Recorded By Document 07/03/17 14:57 MW [id number] 07/03/17 15:04 MW 07/03/17 14:57 Wound Center Nurse 1 [Ulcer Assessment] # 9 left upper thigh -Combined with other wound No -Current Size (cm) - Length 1.8 -Current Size (cm) - Width 2.5 -Current Size (cm) - Depth 0.1 -Total Square Cm 4.50 -Photo Taken No -Epithelialization None Present -Tunneling No -Undermining/Tunneling No -Circular Undermining No -Exudate Amt Small (1-33%) -Exudate Type Sanguineous -Wound Margin Flat & Intact -Granulation Amt Large (67-100%) -Granulation Quality Red -Slough/Fibrin Yes -Necrosis Amt Small (1-33%) -Structure Exposed N/A -Texture (Amirah-wound Skin Appearance) No Abnormality Assessed -Moisture (Amirah-wound Skin Appearance Assessed ) Maceration -Color (Amirah-wound Skin Appearance) No Abnormality Assessed -Temperature (Amirah-wound Skin No Abnormality Appearance) (Pt Warm) -Tenderness on Palpation (Amirah-wound No Skin Appearance) -Ulcer Cleansing Rinsed/ Irrigated with Saline -Foul Odor after Cleansing No -Anesthetic Used 4% Lidocaine Solution #7- Stage III pressure ulcer RT GLUTEAL FOLD -Combined with other wound No -Current Size (cm) - Length 3.8 -Current Size (cm) - Width 3.0 -Current Size (cm) - Depth 3.2 -Total Square Cm 11.40 -Photo Taken No -Epithelialization None Present -Tunneling No -Undermining/Tunneling No -Circular Undermining No -Exudate Amt Large (67-100%) -Exudate Type Serosanguineous -Wound Margin Distinct, Outline Attached -Granulation Amt Medium (34-66%) -Granulation Quality [place] -Slough/Fibrin Yes -Necrosis Amt Medium (34-66%) -Necrotic Tissue Type Adherent Slough -Structure Exposed N/A -Texture (Amirah-wound Skin Appearance) No Abnormality Assessed -Moisture (Amirah-wound Skin Appearance Assessed ) Maceration -Color (Amirah-wound Skin Appearance) No Abnormality Assessed -Temperature (Amirah-wound Skin No Abnormality Appearance) (Pt Warm) -Tenderness on Palpation (Amirah-wound Yes Skin Appearance) -Foul Odor after Cleansing No -Anesthetic Used 4% Lidocaine Solution [Edema Assessment] -Lower Limb Edema Present No WC - Nurse 2 - General Ulcer CM Notes Start: 06/19/17 13:47 Freq: Status: Active Protocol: Activity Type Activity Date Activity User E-Sign Co-Sign Detail Recorded Client Recorded Date Recorded By Document 07/03/17 15:18 [id number] 07/03/17 15:31 07/03/17 15:18 Wound Center Nurse 2 [Procedure/Treatment] # 9 left upper thigh -Time 15:28 -Correct Patient Yes -Correct Side, Site, Position Yes -Correct Procedure Yes -Procedure Performed Yes -Type of Procedure Debridement -Clinical Debridement Subcutaneous -Post Debridement Size (cm) - Length 2.5 -Post Debridement Size (cm) - Width 1.5 -Post Debridement Size (cm) - Depth 0.1 -Total Square Cm 3.75 -Wound/Ulcer Outcome Not Healed -Ulcer Cleansing Rinsed/ Irrigated with Saline -Foul Odor after Cleansing No -Bioengineered Tissue No -Topical Lidocaine (%) 4 -Bleeding Controlled with Pressure -Treatment Response Procedure Tolerated Well #7- Stage III pressure ulcer RT GLUTEAL FOLD -Time 15:28 -Correct Patient Yes -Correct Side, Site, Position Yes -Correct Procedure Yes -Procedure Performed Yes -Type of Procedure Debridement -Clinical Debridement Subcutaneous -Post Debridement Size (cm) - Length 3.8 -Post Debridement Size (cm) - Width 3.5 -Post Debridement Size (cm) - Depth 2.4 -Total Square Cm 13.30 -Wound/Ulcer Outcome Not Healed -Ulcer Cleansing Rinsed/ Irrigated with Saline -Foul Odor after Cleansing No -Bioengineered Tissue No -Topical Lidocaine (%) 4 -Bleeding Controlled with Pressure -Treatment Response Procedure Tolerated Well #10 L buttocks stage IV -Time 15:29 -Correct Patient Yes -Correct Side, Site, Position Yes -Correct Procedure Yes -Procedure Performed Yes -Type of Procedure Debridement -Clinical Debridement Subcutaneous -Post Debridement Size (cm) - Length 0.5 -Post Debridement Size (cm) - Width 0.2 -Post Debridement Size (cm) - Depth 0.3 -Total Square Cm 0.10 -Wound/Ulcer Outcome Not Healed -Ulcer Cleansing Rinsed/ Irrigated with Saline -Foul Odor after Cleansing No -Bioengineered Tissue No -Topical Lidocaine (%) 4 -Bleeding Controlled with Pressure -Treatment Response Procedure Tolerated Well [See Physician Procedure note for Specifics] Pain Scale: 0-10 Numeric [Pain] -Is Patient Pain Free? Yes Psych/Mental Status: Normal Affect, Appropriate Debridement Note Post-Debridement Measurements/Treatment WC - Nurse 2 - General Ulcer CM Notes Start: 06/19/17 13:47 Freq: Status: Active Protocol: Activity Type Activity Date Activity User E-Sign Co-Sign Detail Recorded Client Recorded Date Recorded By Document 06/19/17 15:02 TM [id number] 06/19/17 15:04 TM Document 06/26/17 14:45 TM [id number] 06/26/17 14:51 TM Document 07/03/17 15:18 TM [id number] 07/03/17 15:31 TM 06/19/17 06/26/17 07/03/17 15:02 14:45 15:18 Wound Center Nurse 2 # 9 left upper thigh -Time 15:28 -Correct Patient Yes -Correct Side, Site, Position Yes -Correct Procedure Yes -Procedure Performed Yes -Type of Procedure Debridement -Clinical Debridement Subcutaneous -Post Debridement Size (cm) - Length 2.5 -Post Debridement Size (cm) - Width 1.5 -Post Debridement Size (cm) - Depth 0.1 -Total Square Cm 3.75 -Wound/Ulcer Outcome Not Healed -Ulcer Cleansing Rinsed/ Irrigated with Saline -Foul Odor after Cleansing No -Bioengineered Tissue No -Topical Lidocaine (%) 4 -Bleeding Controlled with Pressure -Treatment Response Procedure Tolerated Well #7- Stage III pressure ulcer RT GLUTEAL FOLD -Time 15:02 14:45 15:28 -Correct Patient Yes Yes Yes -Correct Side, Site, Position Yes Yes Yes -Correct Procedure Yes Yes Yes -Procedure Performed Yes Yes Yes -Type of Procedure Debridement Debridement Debridement -Clinical Debridement Subcutaneous Subcutaneous Subcutaneous -Post Debridement Size (cm) - Length 3.8 3.8 3.8 -Post Debridement Size (cm) - Width 3.6 3.6 3.5 -Post Debridement Size (cm) - Depth 3.1 3.1 2.4 -Total Square Cm 13.68 13.68 13.30 -Wound/Ulcer Outcome Not Healed Not Healed Not Healed -Ulcer Cleansing Rinsed/ Rinsed/ Rinsed/ Irrigated with Irrigated with Irrigated with Saline Saline Saline -Foul Odor after Cleansing No No No -Bioengineered Tissue No No No -Topical Lidocaine (%) 4 4 4 -Bleeding Controlled with Pressure Pressure Pressure -Treatment Response Procedure Procedure Procedure Tolerated Well Tolerated Well Tolerated Well #10 L buttocks stage IV -Time 15:03 14:45 15:29 -Correct Patient Yes Yes Yes -Correct Side, Site, Position Yes Yes Yes -Correct Procedure Yes Yes Yes -Procedure Performed Yes Yes Yes -Type of Procedure Debridement -Clinical Debridement Subcutaneous -Post Debridement Size (cm) - Length 0.5 -Post Debridement Size (cm) - Width 0.2 -Post Debridement Size (cm) - Depth 0.3 -Total Square Cm 0.10 -Wound/Ulcer Outcome Not Healed Not Healed Not Healed -Ulcer Cleansing Rinsed/ Rinsed/ Rinsed/ Irrigated with Irrigated with Irrigated with Saline Saline Saline -Foul Odor after Cleansing No No No -Bioengineered Tissue No No No -Topical Lidocaine (%) 4 4 4 -Bleeding Controlled with Pressure NA Pressure -Other no debridement today -Treatment Response Procedure Procedure Procedure Tolerated Well Tolerated Well Tolerated Well Pain Scale: 0-10 Numeric Is Patient Pain Free? Yes Yes Yes Wound debrided: left upper thigh Laterality: Left Wound Grade/Stage: Stage II Type of Debridement: Excisional debridement Anesthesia Used: 4% Lidocaine Solution Depth: Down to and including healthy tissue, in the subcutaneous layer Percentage of wound debrided: 100 Instrument Used: 5mm curette Tissue Removed: yellow slough and devitalized tissue Severity: Fat Layer Exposed Amount of bleeding with debridement: Mild Bleeding Controlled with: Compression and gauze Patient tolerated procedure well - Additional Wound Wound debrided: Stage III pressure ulcer of right gluteal fold Laterality: Right Wound Grade/Stage: yellow slough and devitalized tissue Type of Debridement: Excisional debridement Anesthesia Used: 4% Lidocaine Solution Depth: Down to and including healthy tissue, in the subcutaneous layer Percentage of wound debrided: 100 Instrument Used: 5mm curette Tissue Removed: yellow slough and devitalized tissue Severity: Fat Layer Exposed Amount of bleeding with debridement: Mild Bleeding Controlled with: Compression and gauze Patient tolerated procedure: Patient tolerated procedure well - Additional Wound Wound debrided: left buttocks stage IV Laterality: Left Wound Grade/Stage: Stage IV Type of Debridement: Excisional debridement Anesthesia Used: 4% Lidocaine Solution Depth: Down to and including healthy tissue, in the subcutaneous layer Percentage of wound debrided: 100 Instrument Used: 3mm curette Tissue Removed: yellow slough and devitalized tissue Severity: Fat Layer Exposed Amount of bleeding with debridement: Mild Bleeding Controlled with: Compression and gauze Patient tolerated procedure: Patient tolerated procedure well Assessment/Plan Active Problems Diabetes mellitus type 2 in nonobese (Chronic) Pressure ulcer of right buttock, stage 3 (Chronic) Pressure sore of left ischium, stage 4 (Chronic) Spinal stenosis (Chronic) Assessment: Pressure ulcer of the left buttock -non healing, despite several deep OR debridements, has not been willing to stay in bed and keep off of wound, and refuses to consider having a muscle flap since it would entail 6 wks in a bed in a [facility] which she thinks would cause more deconditioning and require another few months to restrore her ambulation. wound is remaining free of infection and is not increasing in size but is stable. Right gluteal fold pressure ulcer stage III. left Buttock/ischial ulcer stage III - healed Plan: Right gluteal fold stage III pressure ulcer debrided today and is slightly improved in wound bed and amount of slough. She is going to have a suprapubic catheter placed on 07/08/17. Left posterior thigh is worse. Continue with aquacel daily wound packing to left buttocks and will use Aquacel to the right gluteal fold as well but have them change daily to right gluteal fold. Will have them place rain to left posterior thigh. Encouraged to increase protein intake to aid in wound healing and maintain good control of diabetes. Discussed offloading importance in wound healing. F/U in 2 weeks. Nursing notes reviewed.
--- NOTE | 2017-07-17 19:38 | PCM.WC.PN ---
(1) Diabetes mellitus type 2 in nonobese Status: Chronic Current Visit: Yes Code(s): E11.9 - Type 2 diabetes mellitus without complications (2) Pressure ulcer of right buttock, stage 3 Status: Chronic Current Visit: Yes Code(s): L89.313 - Pressure ulcer of right buttock, stage 3 (3) Pressure sore of left ischium, stage 4 Status: Chronic Current Visit: Yes Code(s): L89.324 - Pressure ulcer of left buttock, stage 4 (4) Spinal stenosis Status: Chronic Current Visit: Yes Qualifiers: Spinal region: lumbosacral Code(s): M48.00 - Spinal stenosis, site unspecified (5) Stage II pressure ulcer Status: Chronic Current Visit: Yes Qualifiers: Pressure ulcer location: thigh Laterality: left Qualified Code(s): L89.222 - Pressure ulcer of left hip, stage 2 Code(s): L89.92 - Pressure ulcer of unspecified site, stage 2 (6) Open wound of left thigh Status: Chronic Current Visit: Yes Qualifiers: Encounter type: subsequent encounter Qualified Code(s): S71.102D - Unspecified open wound, left thigh, subsequent encounter Code(s): S71.102A - Unspecified open wound, left thigh, initial encounter Comment: traumatic skin tear posterior thigh Type of Wound Date of Service: 07/17/17 Chief Complaint: Left ischial pressure sore, Stage IV. Spinal cord stenosis History of Wound: Patient is a 64-year-old female who has a chronic pressure ulcer of her left ischium. Patient was initially hospitalized for a swelling and redness of her right leg approximately 2014. This was evaluated for cellulitis. She was seen in consultation by infectious disease and plastic surgery. The patient was taken to surgery for an operative debridement of her chronic left ischial ulcer, underwent wound vac treatment and IV antibiotics. She was abruptly released from the F after only a few wks, before end of therapy. She had finished her IV antibiotics for Grp A strep osteomyelitis at home and continued with PT at home as well. She has decided to go with the conservative care route since she feels that her quality of life is more important than healing out the wound but had continued to keep the wound vac. The wound vac was discontinued by her insurance for failure to show improvement in the size of her wound. She has been being seen monthly for conservative/palliative care of her pressure ulcer of her left ischium. She has home health visiting weekly to assess her wound and monthly visits to the wound center. She has been tolerating this treatment well. She has recently started getting pressure ulcers of her right buttocks. January 2017, she underwent treatment after developing pressure ulcers which occurred from urinary incontinence issues associated with a chronic UTI and leakage of her catheter. She developed another pressure ulcer of her right buttock on or around April 20, 2017 and presents for treatment of this area as well as continued treatment of her left ischial pressure ulcer. She has been using Rain to the right buttock and continues to use Aquacel to the left ischium/buttock. Denies fever, chills or increased pain. Progress of Wound: Patient continues with conservative care management of left ischium - aquacel dressing to wound daily. No concerns for infection in this pressure ulcer at this time. The pressure ulcer of her right gluteal fold is about the same this week but tissue and wound bed still look healthy. The skin tear of left thigh is worse and has become a stage II pressure ulcer. She denies increased pain but does note a lot of drainage from right gluteal fold. She continues to sit in her wheelchair frequently for long periods of time but has tried to offload more. - Physical Exam Vital Signs Temp Pulse Resp BP 98.6 F 106 H 16 121/62 H 07/03/17 14:57 07/03/17 14:57 07/03/17 14:57 07/03/17 14:57 General: Alert, Oriented x3, Cooperative, No apparent distress HEENT: Atraumatic, Normocephalic Oral: Moist Mucosa Abdomen: Obese Skin: Ulcer/ Wound Wound Measurements and Assessment WC - Nurse 2 - General Ulcer CM Notes Start: 06/19/17 13:47 Freq: Status: Active Protocol: Activity Type Activity Date Activity User E-Sign Co-Sign Detail Recorded Client Recorded Date Recorded By Document 07/17/17 15:20 TM [id number] 07/17/17 15:25 TM 07/17/17 15:20 Wound Center Nurse 2 [Procedure/Treatment] #11 left upper thigh -Time 15:20 -Correct Patient Yes -Correct Side, Site, Position Yes -Correct Procedure Yes -Procedure Performed Yes -Type of Procedure Debridement -Clinical Debridement Subcutaneous -Post Debridement Size (cm) - Length 3.2 -Post Debridement Size (cm) - Width 2.2 -Post Debridement Size (cm) - Depth 0.1 -Total Square Cm 7.04 -Wound/Ulcer Outcome Not Healed -Ulcer Cleansing Rinsed/ Irrigated with Saline -Foul Odor after Cleansing No -Bioengineered Tissue No -Topical Lidocaine (%) 5 -Bleeding Controlled with Pressure -Treatment Response Procedure Tolerated Well #7- Stage III pressure ulcer RT GLUTEAL FOLD -Time 15:24 -Correct Patient Yes -Correct Side, Site, Position Yes -Correct Procedure Yes -Procedure Performed Yes -Type of Procedure Debridement -Clinical Debridement Subcutaneous -Post Debridement Size (cm) - Length 3.0 -Post Debridement Size (cm) - Width 2.5 -Post Debridement Size (cm) - Depth 3.5 -Total Square Cm 7.50 -Wound/Ulcer Outcome Not Healed -Ulcer Cleansing Rinsed/ Irrigated with Saline -Foul Odor after Cleansing No -Bioengineered Tissue No -Topical Lidocaine (%) 5 -Bleeding Controlled with Pressure -Treatment Response Procedure Tolerated Well #10 L buttocks stage IV -Time 15:24 -Correct Patient Yes -Correct Side, Site, Position Yes -Correct Procedure Yes -Procedure Performed Yes -Type of Procedure Debridement -Clinical Debridement Subcutaneous -Post Debridement Size (cm) - Length 0.4 -Post Debridement Size (cm) - Width 0.2 -Post Debridement Size (cm) - Depth 0.3 -Total Square Cm 0.08 -Wound/Ulcer Outcome Not Healed -Ulcer Cleansing Rinsed/ Irrigated with Saline -Foul Odor after Cleansing No -Bioengineered Tissue No -Topical Lidocaine (%) 5 -Bleeding Controlled with Pressure -Treatment Response Procedure Tolerated Well [See Physician Procedure note for Specifics] Pain Scale: 0-10 Numeric [Pain] -Is Patient Pain Free? Yes Psych/Mental Status: Normal Affect, Appropriate Debridement Note Post-Debridement Measurements/Treatment WC - Nurse 2 - General Ulcer CM Notes Start: 06/19/17 13:47 Freq: Status: Active Protocol: Activity Type Activity Date Activity User E-Sign Co-Sign Detail Recorded Client Recorded Date Recorded By Document 06/19/17 15:02 TM [id number] 06/19/17 15:04 TM Document 06/26/17 14:45 TM [id number] 06/26/17 14:51 TM Document 07/03/17 15:18 TM [id number] 07/03/17 15:31 TM Document 07/17/17 15:20 [id number] 07/17/17 15:25 TM 06/19/17 06/26/17 07/03/17 15:02 14:45 15:18 Wound Center Nurse 2 #11 left upper thigh -Time 15:28 -Correct Patient Yes -Correct Side, Site, Position Yes -Correct Procedure Yes -Procedure Performed Yes -Type of Procedure Debridement -Clinical Debridement Subcutaneous -Post Debridement Size (cm) - Length 2.5 -Post Debridement Size (cm) - Width 1.5 -Post Debridement Size (cm) - Depth 0.1 -Total Square Cm 3.75 -Wound/Ulcer Outcome Not Healed -Ulcer Cleansing Rinsed/ Irrigated with Saline -Foul Odor after Cleansing No -Bioengineered Tissue No -Topical Lidocaine (%) 4 -Bleeding Controlled with Pressure -Treatment Response Procedure Tolerated Well #7- Stage III pressure ulcer RT GLUTEAL FOLD -Time 15: 14:45 15:28 -Correct Patient Yes Yes Yes -Correct Side, Site, Position Yes Yes Yes -Correct Procedure Yes Yes Yes -Procedure Performed Yes Yes Yes -Type of Procedure Debridement Debridement Debridement -Clinical Debridement Subcutaneous Subcutaneous Subcutaneous -Post Debridement Size (cm) - Length 3.8 3.8 3.8 -Post Debridement Size (cm) - Width 3.6 3.6 3.5 -Post Debridement Size (cm) - Depth 3.1 3.1 2.4 -Total Square Cm 13.68 13.68 13.30 -Wound/Ulcer Outcome Not Healed Not Healed Not Healed -Ulcer Cleansing Rinsed/ Rinsed/ Rinsed/ Irrigated with Irrigated with Irrigated with Saline Saline Saline -Foul Odor after Cleansing No No No -Bioengineered Tissue No No No -Topical Lidocaine (%) 4 4 4 -Bleeding Controlled with Pressure Pressure Pressure -Treatment Response Procedure Procedure Procedure Tolerated Well Tolerated Well Tolerated Well #10 L buttocks stage IV -Time 15:03 14:45 15:29 -Correct Patient Yes Yes Yes -Correct Side, Site, Position Yes Yes Yes -Correct Procedure Yes Yes Yes -Procedure Performed Yes Yes Yes -Type of Procedure Debridement -Clinical Debridement Subcutaneous -Post Debridement Size (cm) - Length 0.5 -Post Debridement Size (cm) - Width 0.2 -Post Debridement Size (cm) - Depth 0.3 -Total Square Cm 0.10 -Wound/Ulcer Outcome Not Healed Not Healed Not Healed -Ulcer Cleansing Rinsed/ Rinsed/ Rinsed/ Irrigated with Irrigated with Irrigated with Saline Saline Saline -Foul Odor after Cleansing No No No -Bioengineered Tissue No No No -Topical Lidocaine (%) 4 4 4 -Bleeding Controlled with Pressure NA Pressure -Other no debridement today -Treatment Response Procedure Procedure Procedure Tolerated Well Tolerated Well Tolerated Well Pain Scale: 0-10 Numeric Is Patient Pain Free? Yes Yes Yes 07/17/17 15:20 Wound Center Nurse 2 #11 left upper thigh -Time 15:20 -Correct Patient Yes -Correct Side, Site, Position Yes -Correct Procedure Yes -Procedure Performed Yes -Type of Procedure Debridement -Clinical Debridement Subcutaneous -Post Debridement Size (cm) - Length 3.2 -Post Debridement Size (cm) - Width 2.2 -Post Debridement Size (cm) - Depth 0.1 -Total Square Cm 7.04 -Wound/Ulcer Outcome Not Healed -Ulcer Cleansing Rinsed/ Irrigated with Saline -Foul Odor after Cleansing No -Bioengineered Tissue No -Topical Lidocaine (%) 5 -Bleeding Controlled with Pressure -Treatment Response Procedure Tolerated Well #7- Stage III pressure ulcer RT GLUTEAL FOLD -Time 15:24 -Correct Patient Yes -Correct Side, Site, Position Yes -Correct Procedure Yes -Procedure Performed Yes -Type of Procedure Debridement -Clinical Debridement Subcutaneous -Post Debridement Size (cm) - Length 3.0 -Post Debridement Size (cm) - Width 2.5 -Post Debridement Size (cm) - Depth 3.5 -Total Square Cm 7.50 -Wound/Ulcer Outcome Not Healed -Ulcer Cleansing Rinsed/ Irrigated with Saline -Foul Odor after Cleansing No -Bioengineered Tissue No -Topical Lidocaine (%) 5 -Bleeding Controlled with Pressure -Treatment Response Procedure Tolerated Well #10 L buttocks stage IV -Time 15:24 -Correct Patient Yes -Correct Side, Site, Position Yes -Correct Procedure Yes -Procedure Performed Yes -Type of Procedure Debridement -Clinical Debridement Subcutaneous -Post Debridement Size (cm) - Length 0.4 -Post Debridement Size (cm) - Width 0.2 -Post Debridement Size (cm) - Depth 0.3 -Total Square Cm 0.08 -Wound/Ulcer Outcome Not Healed -Ulcer Cleansing Rinsed/ Irrigated with Saline -Foul Odor after Cleansing No -Bioengineered Tissue No -Topical Lidocaine (%) 5 -Bleeding Controlled with Pressure -Other -Treatment Response Procedure Tolerated Well Pain Scale: 0-10 Numeric Is Patient Pain Free? Yes Wound debrided: left upper thigh stage II pressure ulcer Laterality: Left Wound Grade/Stage: stage II pressure ulcer Type of Debridement: Excisional debridement Anesthesia Used: 4% Lidocaine Solution Depth: Down to and including healthy tissue, in the subcutaneous layer Percentage of wound debrided: 100 Instrument Used: 5mm curette Tissue Removed: yellow slough, devitalized tissue Severity: Fat Layer Exposed Amount of bleeding with debridement: Mild Bleeding Controlled with: Compression and gauze Patient tolerated procedure well - Additional Wound Wound debrided: Stage III pressure ulcer of right gluteal fold Laterality: Right Wound Grade/Stage: Stage III Type of Debridement: Excisional debridement Anesthesia Used: 4% Lidocaine Solution Depth: Down to and including healthy tissue, in the subcutaneous layer Percentage of wound debrided: 100 Instrument Used: 5mm curette Tissue Removed: yellow slough, devitalized tissue Severity: Fat Layer Exposed Amount of bleeding with debridement: Mild Bleeding Controlled with: Compression and gauze Patient tolerated procedure: Patient tolerated procedure well - Additional Wound Wound debrided: left buttocks stage IV pressure ulcer Laterality: Left Wound Grade/Stage: Stage IV Type of Debridement: Excisional debridement Anesthesia Used: 4% Lidocaine Solution Depth: Down to and including healthy tissue, in the subcutaneous layer Percentage of wound debrided: 100 Instrument Used: 5mm curette Tissue Removed: yellow slough, devitalized tissue Severity: Fat Layer Exposed Amount of bleeding with debridement: Mild Bleeding Controlled with: Compression and gauze Patient tolerated procedure: Patient tolerated procedure well Assessment/Plan Active Problems Open wound of left thigh (Chronic) traumatic skin tear posterior thigh Stage II pressure ulcer (Chronic) Diabetes mellitus type 2 in nonobese (Chronic) Pressure ulcer of right buttock, stage 3 (Chronic) Pressure sore of left ischium, stage 4 (Chronic) Spinal stenosis (Chronic) Assessment: Pressure ulcer of the left buttock -non healing, despite several deep OR debridements, has not been willing to stay in bed and keep off of wound,and refuses to consider having a muscle flap since it would entail 6 wks in a bed in a [facility] which she thinks would cause more deconditioning and require another few months to restrore her ambulation. wound is remaining free of infection and is not increasing in size but is stable. Right gluteal fold pressure ulcer stage III. left Buttock/ischial ulcer stage III - healed Plan: Right gluteal fold stage III pressure ulcer debrided today and is slightly improved in wound bed and amount of slough. She had a suprapubic catheter placed on 07/08/17. Left posterior thigh is worse. Continue with aquacel to left buttocks and right gluteal fold as well. Will have them place rain to left posterior thigh. Encouraged to increase protein intake to aid in wound healing and maintain good control of diabetes. Discussed offloading importance in wound healing. F/U in 2 weeks. Nursing notes reviewed.
--- NOTE | 2017-07-17 20:25 | PN.PCM_ITS ---
(1) Diabetes mellitus type 2 in nonobese Status: Chronic Current Visit: Yes Code(s): E11.9 - Type 2 diabetes mellitus without complications (2) Pressure ulcer of right buttock, stage 3 Status: Chronic Current Visit: Yes Code(s): L89.313 - Pressure ulcer of right buttock, stage 3 (3) Pressure sore of left ischium, stage 4 Status: Chronic Current Visit: Yes Code(s): L89.324 - Pressure ulcer of left buttock, stage 4 (4) Spinal stenosis Status: Chronic Current Visit: Yes Qualifiers: Spinal region: lumbosacral Code(s): M48.00 - Spinal stenosis, site unspecified (5) Stage II pressure ulcer Status: Chronic Current Visit: Yes Qualifiers: Pressure ulcer location: thigh Laterality: left Qualified Code(s): L89.222 - Pressure ulcer of left hip, stage 2 Code(s): L89.92 - Pressure ulcer of unspecified site, stage 2 (6) Open wound of left thigh Status: Chronic Current Visit: Yes Qualifiers: Encounter type: subsequent encounter Qualified Code(s): S71.102D - Unspecified open wound, left thigh, subsequent encounter Code(s): S71.102A - Unspecified open wound, left thigh, initial encounter Comment: traumatic skin tear posterior thigh Type of Wound Date of Service: 07/17/17 Chief Complaint: Left ischial pressure sore, Stage IV. Spinal cord stenosis History of Wound: Patient is a 64-year-old female who has a chronic pressure ulcer of her left ischium. Patient was initially hospitalized for a swelling and redness of her right leg approximately 2014. This was evaluated for cellulitis. She was seen in consultation by infectious disease and plastic surgery. The patient was taken to surgery for an operative debridement of her chronic left ischial ulcer, underwent wound vac treatment and IV antibiotics. She was abruptly released from the F after only a few wks, before end of therapy. She had finished her IV antibiotics for Grp A strep osteomyelitis at home and continued with PT at home as well. She has decided to go with the conservative care route since she feels that her quality of life is more important than healing out the wound but had continued to keep the wound vac. The wound vac was discontinued by her insurance for failure to show improvement in the size of her wound. She has been being seen monthly for conservative/ palliative care of her pressure ulcer of her left ischium. She has home health visiting weekly to assess her wound and monthly visits to the wound center. She has been tolerating this treatment well. She has recently started getting pressure ulcers of her right buttocks. January 2017, she underwent treatment after developing pressure ulcers which occurred from urinary incontinence issues associated with a chronic UTI and leakage of her catheter. She developed another pressure ulcer of her right buttock on or around April 20, 2017 and presents for treatment of this area as well as continued treatment of her left ischial pressure ulcer. She has been using Rain to the right buttock and continues to use Aquacel to the left ischium/buttock. Denies fever, chills or increased pain. Progress of Wound: Patient continues with conservative care management of left ischium - aquacel dressing to wound daily. No concerns for infection in this pressure ulcer at this time. The pressure ulcer of her right gluteal fold is about the same this week but tissue and wound bed still look healthy. The skin tear of left thigh is worse and has become a stage II pressure ulcer. She denies increased pain but does note a lot of drainage from right gluteal fold. She continues to sit in her wheelchair frequently for long periods of time but has tried to offload more. - Physical Exam Vital Signs Temp Pulse Resp BP 98.6 F 106 H 16 121/62 H 07/03/17 14:57 07/03/17 14:57 07/03/17 14:57 07/03/17 14:57 General: Alert, Oriented x3, Cooperative, No apparent distress HEENT: Atraumatic, Normocephalic Oral: Moist Mucosa Abdomen: Obese Skin: Ulcer/ Wound Wound Measurements and Assessment WC - Nurse 2 - General Ulcer CM Notes Start: 06/19/17 13:47 Freq: Status: Active Protocol: Activity Type Activity Date Activity User E-Sign Co-Sign Detail Recorded Client Recorded Date Recorded By Document 07/17/17 15:20 TM [id number] 07/17/17 15:25 TM 07/17/17 15:20 Wound Center Nurse 2 [Procedure/Treatment] #11 left upper thigh -Time 15:20 -Correct Patient Yes -Correct Side, Site, Position Yes -Correct Procedure Yes -Procedure Performed Yes -Type of Procedure Debridement -Clinical Debridement Subcutaneous -Post Debridement Size (cm) - Length 3.2 -Post Debridement Size (cm) - Width 2.2 -Post Debridement Size (cm) - Depth 0.1 -Total Square Cm 7.04 -Wound/Ulcer Outcome Not Healed -Ulcer Cleansing Rinsed/ Irrigated with Saline -Foul Odor after Cleansing No -Bioengineered Tissue No -Topical Lidocaine (%) 5 -Bleeding Controlled with Pressure -Treatment Response Procedure Tolerated Well #7- Stage III pressure ulcer RT GLUTEAL FOLD -Time 15:24 -Correct Patient Yes -Correct Side, Site, Position Yes -Correct Procedure Yes -Procedure Performed Yes -Type of Procedure Debridement -Clinical Debridement Subcutaneous -Post Debridement Size (cm) - Length 3.0 -Post Debridement Size (cm) - Width 2.5 -Post Debridement Size (cm) - Depth 3.5 -Total Square Cm 7.50 -Wound/Ulcer Outcome Not Healed -Ulcer Cleansing Rinsed/ Irrigated with Saline -Foul Odor after Cleansing No -Bioengineered Tissue No -Topical Lidocaine (%) 5 -Bleeding Controlled with Pressure -Treatment Response Procedure Tolerated Well #10 L buttocks stage IV -Time 15:24 -Correct Patient Yes -Correct Side, Site, Position Yes -Correct Procedure Yes -Procedure Performed Yes -Type of Procedure Debridement -Clinical Debridement Subcutaneous -Post Debridement Size (cm) - Length 0.4 -Post Debridement Size (cm) - Width 0.2 -Post Debridement Size (cm) - Depth 0.3 -Total Square Cm 0.08 -Wound/Ulcer Outcome Not Healed -Ulcer Cleansing Rinsed/ Irrigated with Saline -Foul Odor after Cleansing No -Bioengineered Tissue No -Topical Lidocaine (%) 5 -Bleeding Controlled with Pressure -Treatment Response Procedure Tolerated Well [See Physician Procedure note for Specifics] Pain Scale: 0-10 Numeric [Pain] -Is Patient Pain Free? Yes Psych/Mental Status: Normal Affect, Appropriate Debridement Note Post-Debridement Measurements/Treatment WC - Nurse 2 - General Ulcer CM Notes Start: 06/19/17 13:47 Freq: Status: Active Protocol: Activity Type Activity Date Activity User E-Sign Co-Sign Detail Recorded Client Recorded Date Recorded By Document 06/19/17 15:02 TM [id number] 06/19/17 15:04 TM Document 06/26/17 14:45 TM [id number] 06/26/17 14:51 TM Document 07/03/17 15:18 TM [id number] 07/03/17 15:31 TM Document 07/17/17 15:20 [id number] 07/17/17 15:25 TM 06/19/17 06/26/17 07/03/17 15:02 14:45 15:18 Wound Center Nurse 2 #11 left upper thigh -Time 15:28 -Correct Patient Yes -Correct Side, Site, Position Yes -Correct Procedure Yes -Procedure Performed Yes -Type of Procedure Debridement -Clinical Debridement Subcutaneous -Post Debridement Size (cm) - Length 2.5 -Post Debridement Size (cm) - Width 1.5 -Post Debridement Size (cm) - Depth 0.1 -Total Square Cm 3.75 -Wound/Ulcer Outcome Not Healed -Ulcer Cleansing Rinsed/ Irrigated with Saline -Foul Odor after Cleansing No -Bioengineered Tissue No -Topical Lidocaine (%) 4 -Bleeding Controlled with Pressure -Treatment Response Procedure Tolerated Well #7- Stage III pressure ulcer RT GLUTEAL FOLD -Time 15: 14:45 15:28 -Correct Patient Yes Yes Yes -Correct Side, Site, Position Yes Yes Yes -Correct Procedure Yes Yes Yes -Procedure Performed Yes Yes Yes -Type of Procedure Debridement Debridement Debridement -Clinical Debridement Subcutaneous Subcutaneous Subcutaneous -Post Debridement Size (cm) - Length 3.8 3.8 3.8 -Post Debridement Size (cm) - Width 3.6 3.6 3.5 -Post Debridement Size (cm) - Depth 3.1 3.1 2.4 -Total Square Cm 13.68 13.68 13.30 -Wound/Ulcer Outcome Not Healed Not Healed Not Healed -Ulcer Cleansing Rinsed/ Rinsed/ Rinsed/ Irrigated with Irrigated with Irrigated with Saline Saline Saline -Foul Odor after Cleansing No No No -Bioengineered Tissue No No No -Topical Lidocaine (%) 4 4 4 -Bleeding Controlled with Pressure Pressure Pressure -Treatment Response Procedure Procedure Procedure Tolerated Well Tolerated Well Tolerated Well #10 L buttocks stage IV -Time 15:03 14:45 15:29 -Correct Patient Yes Yes Yes -Correct Side, Site, Position Yes Yes Yes -Correct Procedure Yes Yes Yes -Procedure Performed Yes Yes Yes -Type of Procedure Debridement -Clinical Debridement Subcutaneous -Post Debridement Size (cm) - Length 0.5 -Post Debridement Size (cm) - Width 0.2 -Post Debridement Size (cm) - Depth 0.3 -Total Square Cm 0.10 -Wound/Ulcer Outcome Not Healed Not Healed Not Healed -Ulcer Cleansing Rinsed/ Rinsed/ Rinsed/ Irrigated with Irrigated with Irrigated with Saline Saline Saline -Foul Odor after Cleansing No No No -Bioengineered Tissue No No No -Topical Lidocaine (%) 4 4 4 -Bleeding Controlled with Pressure NA Pressure -Other no debridement today -Treatment Response Procedure Procedure Procedure Tolerated Well Tolerated Well Tolerated Well Pain Scale: 0-10 Numeric Is Patient Pain Free? Yes Yes Yes 07/17/17 15:20 Wound Center Nurse 2 #11 left upper thigh -Time 15:20 -Correct Patient Yes -Correct Side, Site, Position Yes -Correct Procedure Yes -Procedure Performed Yes -Type of Procedure Debridement -Clinical Debridement Subcutaneous -Post Debridement Size (cm) - Length 3.2 -Post Debridement Size (cm) - Width 2.2 -Post Debridement Size (cm) - Depth 0.1 -Total Square Cm 7.04 -Wound/Ulcer Outcome Not Healed -Ulcer Cleansing Rinsed/ Irrigated with Saline -Foul Odor after Cleansing No -Bioengineered Tissue No -Topical Lidocaine (%) 5 -Bleeding Controlled with Pressure -Treatment Response Procedure Tolerated Well #7- Stage III pressure ulcer RT GLUTEAL FOLD -Time 15:24 -Correct Patient Yes -Correct Side, Site, Position Yes -Correct Procedure Yes -Procedure Performed Yes -Type of Procedure Debridement -Clinical Debridement Subcutaneous -Post Debridement Size (cm) - Length 3.0 -Post Debridement Size (cm) - Width 2.5 -Post Debridement Size (cm) - Depth 3.5 -Total Square Cm 7.50 -Wound/Ulcer Outcome Not Healed -Ulcer Cleansing Rinsed/ Irrigated with Saline -Foul Odor after Cleansing No -Bioengineered Tissue No -Topical Lidocaine (%) 5 -Bleeding Controlled with Pressure -Treatment Response Procedure Tolerated Well #10 L buttocks stage IV -Time 15:24 -Correct Patient Yes -Correct Side, Site, Position Yes -Correct Procedure Yes -Procedure Performed Yes -Type of Procedure Debridement -Clinical Debridement Subcutaneous -Post Debridement Size (cm) - Length 0.4 -Post Debridement Size (cm) - Width 0.2 -Post Debridement Size (cm) - Depth 0.3 -Total Square Cm 0.08 -Wound/Ulcer Outcome Not Healed -Ulcer Cleansing Rinsed/ Irrigated with Saline -Foul Odor after Cleansing No -Bioengineered Tissue No -Topical Lidocaine (%) 5 -Bleeding Controlled with Pressure -Other -Treatment Response Procedure Tolerated Well Pain Scale: 0-10 Numeric Is Patient Pain Free? Yes Wound debrided: left upper thigh stage II pressure ulcer Laterality: Left Wound Grade/Stage: stage II pressure ulcer Type of Debridement: Excisional debridement Anesthesia Used: 4% Lidocaine Solution Depth: Down to and including healthy tissue, in the subcutaneous layer Percentage of wound debrided: 100 Instrument Used: 5mm curette Tissue Removed: yellow slough, devitalized tissue Severity: Fat Layer Exposed Amount of bleeding with debridement: Mild Bleeding Controlled with: Compression and gauze Patient tolerated procedure well - Additional Wound Wound debrided: Stage III pressure ulcer of right gluteal fold Laterality: Right Wound Grade/Stage: Stage III Type of Debridement: Excisional debridement Anesthesia Used: 4% Lidocaine Solution Depth: Down to and including healthy tissue, in the subcutaneous layer Percentage of wound debrided: 100 Instrument Used: 5mm curette Tissue Removed: yellow slough, devitalized tissue Severity: Fat Layer Exposed Amount of bleeding with debridement: Mild Bleeding Controlled with: Compression and gauze Patient tolerated procedure: Patient tolerated procedure well - Additional Wound Wound debrided: left buttocks stage IV pressure ulcer Laterality: Left Wound Grade/Stage: Stage IV Type of Debridement: Excisional debridement Anesthesia Used: 4% Lidocaine Solution Depth: Down to and including healthy tissue, in the subcutaneous layer Percentage of wound debrided: 100 Instrument Used: 5mm curette Tissue Removed: yellow slough, devitalized tissue Severity: Fat Layer Exposed Amount of bleeding with debridement: Mild Bleeding Controlled with: Compression and gauze Patient tolerated procedure: Patient tolerated procedure well Assessment/Plan Active Problems Open wound of left thigh (Chronic) traumatic skin tear posterior thigh Stage II pressure ulcer (Chronic) Diabetes mellitus type 2 in nonobese (Chronic) Pressure ulcer of right buttock, stage 3 (Chronic) Pressure sore of left ischium, stage 4 (Chronic) Spinal stenosis (Chronic) Assessment: Pressure ulcer of the left buttock -non healing, despite several deep OR debridements, has not been willing to stay in bed and keep off of wound, and refuses to consider having a muscle flap since it would entail 6 wks in a bed in a [facility] which she thinks would cause more deconditioning and require another few months to restrore her ambulation. wound is remaining free of infection and is not increasing in size but is stable. Right gluteal fold pressure ulcer stage III. left Buttock/ischial ulcer stage III - healed Plan: Right gluteal fold stage III pressure ulcer debrided today and is slightly improved in wound bed and amount of slough. She had a suprapubic catheter placed on 07/08/17. Left posterior thigh is worse. Continue with aquacel to left buttocks and right gluteal fold as well. Will have them place rain to left posterior thigh. Encouraged to increase protein intake to aid in wound healing and maintain good control of diabetes. Discussed offloading importance in wound healing. F/U in 2 weeks. Nursing notes reviewed.
== END 2017-07-18 23:59 ==
LOC: WC 13:30
PROVIDERS: Family Provider Family Medicine; PCP Family Medicine; Visit Provider Family Medicine
DX: E11.622 Type 2 diabetes mellitus with other skin ulcer (principal); L89.224 Pressure ulcer of left hip, stage 4; M48.07 Spinal stenosis, lumbosacral region; L89.313 Pressure ulcer of right buttock, stage 3
CPT/HCPCS: 11042; 87070; 87075; 87077; 87186; 87205

== ENCOUNTER 2017-08-10 13:30 | Outpatient (RCR) | payer MEDICAID, SELFPAY ==
[2017-07-19 00:29] VITALS: BP 108/73; PULSE 106; RESP 16; TEMP 37
[2017-07-27 13:14] VITALS: BP 141/69; PULSE 116; RESP 16; TEMP 36.4
--- NOTE | 2017-07-27 13:56 | PCM.WC.HP ---
(1) Chronic suprapubic catheter Status: Chronic Current Visit: No Code(s): Z93.59 - Other cystostomy status (2) Open wound of left thigh Status: Chronic Current Visit: Yes Qualifiers: Encounter type: initial encounter Qualified Code(s): S71.102A - Unspecified open wound, left thigh, initial encounter Code(s): S71.102A - Unspecified open wound, left thigh, initial encounter Comment: traumatic skin tear posterior thigh (3) Neurogenic bladder Status: Chronic Current Visit: No Code(s): N31.9 - Neuromuscular dysfunction of bladder, unspecified (4) Stage II pressure ulcer Status: Chronic Current Visit: No Qualifiers: Code(s): L89.92 - Pressure ulcer of unspecified site, stage 2 (5) Diabetes mellitus type 2 in nonobese Status: Chronic Current Visit: No Code(s): E11.9 - Type 2 diabetes mellitus without complications (6) Hypertension Status: Chronic Current Visit: No Qualifiers: Code(s): I10 - Essential (primary) hypertension (7) Gout Status: Chronic Current Visit: No Code(s): M10.9 - Gout, unspecified Comment: with arthropathy (8) Pressure ulcer of left buttock, stage 3 Status: Resolved Current Visit: No Code(s): L89.323 - Pressure ulcer of left buttock, stage 3 (9) Pressure ulcer of left buttock, stage 2 Status: Acute Current Visit: No Code(s): L89.322 - Pressure ulcer of left buttock, stage 2 (10) Diabetes mellitus Status: Chronic Current Visit: Yes Qualifiers: Diabetes mellitus type: type 2 Code(s): E11.9 - Type 2 diabetes mellitus without complications (11) Pressure ulcer of right buttock, stage 3 Status: Chronic Current Visit: Yes Code(s): L89.313 - Pressure ulcer of right buttock, stage 3 (12) Diabetic neuropathy, type II diabetes mellitus Status: Chronic Current Visit: Yes Code(s): E11.40 - Type 2 diabetes mellitus with diabetic neuropathy, unspecified (13) Colostomy in place Status: Chronic Current Visit: Yes Code(s): Z93.3 - Colostomy status (14) chronic osteomyelitis left ischial area Status: Chronic Current Visit: Yes (15) Pressure sore of left ischium, stage 4 Status: Chronic Current Visit: Yes Code(s): L89.324 - Pressure ulcer of left buttock, stage 4 (16) Anemia of chronic disease Status: Chronic Current Visit: No Code(s): D63.8 - Anemia in other chronic diseases classified elsewhere (17) Physical deconditioning Status: Chronic Current Visit: Yes Code(s): R53.81 - Other malaise (18) Spinal stenosis Status: Chronic Current Visit: No Qualifiers: Code(s): M48.00 - Spinal stenosis, site unspecified (19) Hyperlipidemia Status: Chronic Current Visit: No Code(s): E78.5 - Hyperlipidemia, unspecified (20) RP (rectal prolapse) Status: Chronic Current Visit: No Code(s): K62.3 - Rectal prolapse History of Present Illness Date of Service: 07/27/17 Chief Complaint: Left ischial pressure sore, Stage IV. Right ischial pressure ulcer, stage III. Spinal stenosis History of Wound: Patient is a 67-year-old female who has a chronic pressure ulcer of her left ischium and right ischium. Patient was initially hospitalized for a swelling and redness of her right leg approximately 2014. This was evaluated for cellulitis. She was seen in consultation by infectious disease and plastic surgery. The patient was taken to surgery for an operative debridement of her chronic left ischial ulcer, underwent wound vac treatment and IV antibiotics. She was abruptly released from the [facility] after only a few weeks, before end of therapy. She had finished her IV antibiotics for Grp A strep osteomyelitis at home and continued with PT at home as well. She has decided to go with the conservative care route since she feels that her quality of life is more important than healing out the wound but had continued to keep the wound vac. The wound vac was discontinued by her insurance for failure to show improvement in the size of her wound. She has been seen twice monthly for conservative/palliative/complex care of her bilateral ischial pressure ulcers. She lives with her brother and [id number], who help address her ulcers/wounds. She has recently developed a skin tear/abrasion of the left buttock/upper posterior thigh. Current management involves the use of Rain topically to the skin tear on the left posterior upper thigh, and Aquacel with respect to the ischial pressure ulcerations. She has started getting pressure ulcers of her right buttocks. January 2017, she underwent treatment after developing pressure ulcers which occurred from urinary incontinence issues associated with a chronic UTI and leakage of her catheter. She developed another pressure ulcer of her right buttock on or around April 20, 2017 and presents for treatment of this area as well as continued treatment of her left ischial pressure ulcer. Denies fever, chills or increased pain. The patient indicates that she sleeps on an air loss mattress, and possesses a Roho cushion for her wheelchair. She has previously been counseled as to the importance of offloading measures. She also has been taking Sigifredo protein shakes, and is aware that optimizing glycemic control is advisable. Review of recent laboratory studies reveals a protein of 8.6, albumin 3.2, and hemoglobin A1c of 6.9, on June 03, 2017. Patient is essentially nonambulatory, and uses a walker for transition from bed to chair. She is severely deconditioned. Past Medical History Past Medical History: Chronic Problems Open wound of left thigh (Chronic) traumatic skin tear posterior thigh Neurogenic bladder (Chronic) Stage II pressure ulcer (Chronic) Chronic suprapubic catheter (Chronic) Diabetes mellitus type 2 in nonobese (Chronic) Hypertension (Chronic) Gout (Chronic) with arthropathy Diabetes mellitus (Chronic) Pressure ulcer of right buttock, stage 3 (Chronic) Diabetic neuropathy, type II diabetes mellitus (Chronic) Malnutrition (Chronic) Back pain (Chronic) Arthritis (Chronic) 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 significance to followup Anemia of chronic disease (Chronic) Physical deconditioning (Chronic) Dupuytren's contracture of right hand (Chronic) Spinal stenosis (Chronic) Hyperlipidemia (Chronic) RP (rectal prolapse) (Chronic) Surgical History: - - Surgery for rectal prolapse with anterior resection and rectopexy at [facility] in 2008 and back surgery 1979. Colostomy was November 2012. She had blood transfusions in October 2012 at [facility] for blood loss anemia. excision left ischial pressure sore with partial ostectomy for osteomyelitis and excision right ischial pressure sore and excision left lateral ankle pressure sore with partial ostectomy for osteomyelitis in 08/01. Ab0. Allergies/Adverse Reactions: Allergies No Known Allergies Allergy (Verified 07/01/17 10:11) Home Medications: Ambulatory Orders Medication Instructions Recorded Allopurinol [Zyloprim] 100 mg PO BID 07/05/14 Latanoprost 0.005% [Xalatan 1 drop EACH EYE QHS 07/05/14 Opthalmic] Losartan Potassium [Cozaar] 25 mg PO DAILY 07/05/14 Metformin HCl [Glucophage] 1,000 mg PO BIDCM 07/05/14 Multivitamins,Therapeutic 1 tablet PO DAILY 07/05/14 [Multivitamin] Simvastatin [Zocor] 10 mg PO QHS 07/05/14 Timolol Maleate [Timoptic-XE 0.5%] 1 drop EACH EYE DAILY 07/05/14 Acetaminophen [Tylenol Tablet] 650 mg PO Q6H PRN PRN #0 tablet 07/11/14 Furosemide [Lasix] 40 mg PO DAILY 06/29/15 Potassium Chloride [K-Dur] 20 meq PO DAILY 06/29/15 Saxagliptin HCl [Onglyza] 5 mg PO DAILY 07/01/17 Solifenacin Succinate [Vesicare] 10 mg PO DAILY 07/01/17 Cephalexin [Keflex] 500 mg PO Q8 #21 cap 07/08/17 - Family History Maternal Diabetes, Hypertension Paternal Diabetes, Hypertension Lives: With Family - Patient lives with her brother and [id number]. Smoking Status: Never smoker Tobacco Use: Non-smoker Alcohol: None Drugs: None Review of Systems Constitutional: Denies: Chills, Fever, Weight Change Eyes: Denies: Pain, Vision Change HEENT: Denies: Difficulty Hearing, Difficulty Swallowing, Sinus Congestion Cardiovascular: Denies: Chest Pain, Palpitations Respiratory: Denies: Cough, Shortness of Breath Gastrointestinal: Denies: Diarrhea, Nausea, Vomiting Genitourinary: Denies: Dysuria, Hematuria Endocrine: Denies: Heat/ Cold Intolerance, Polydipsia, Polyuria Hematologic/ Lymphatic: Denies: Easy Bruising, Easy Bleeding - Physical Exam Vital Signs Temp Pulse Resp BP 97.5 F L 116 H 16 141/69 H 07/27/17 13:14 07/27/17 13:14 07/27/17 13:14 07/27/17 13:14 General: Alert, Oriented x3, Cooperative, No apparent distress, Well developed, Well nourished, - - The patient is severely deconditioned. HEENT: Atraumatic, PERRLA, EOMI, Normocephalic Oral: Moist Mucosa, No Gingival or Mucosal Lesions/ Ulcerations Neck: Supple, No JVD, Negative Carotid Bruits, Negative Hepatojugular Reflux, No Nodes, No Nuchal Rigidity, Trachea Midline Lungs: Clear to auscultation, Normal air movement, No rhonchi, No wheeze, No rales Cardiovascular: Regular rate, Regular Rhythm, Normal S1, Normal S2, No murmurs, No Ectopic Activity Abdomen: Soft, Non Tender, Non-Distended, - - A colostomy and suprapubic catheter are noted. Colostomy is functional, and appears viable. Extremities: No clubbing, No cyanosis, No edema, No Calf Tenderness Skin: - - Bilateral ischial pressure ulcerations are noted. The left ischial pressure ulceration is small, and appears to track down to bone. The right ischial pressure ulcer is larger in size, and dimensions are documented elsewhere. A superficial ulceration is noted on the left upper posterior thigh, dimensions of which are documented elsewhere. Wound Measurements and Assessment WC - Nurse 1 - General Ulcer Measurement Start: 07/27/17 13:14 Freq: Status: Active Protocol: Activity Type Activity Date Activity User E-Sign Co-Sign Detail Recorded Client Recorded Date Recorded By Document 07/27/17 13:14 DL [id number] 07/27/17 13:24 DL 07/27/17 13:14 Wound Center Nurse 1 [Ulcer Assessment] #11 left upper thigh -Combined with other wound No -Current Size (cm) - Length 4 -Current Size (cm) - Width 2.8 -Current Size (cm) - Depth 0.1 -Total Square Cm 11.2 -Date of Last Picture (Recall this 07/27/17 field) -Photo Taken Yes -Epithelialization Small 1-33% -Tunneling No -Undermining/Tunneling No -Circular Undermining No -Exudate Amt Small (1-33%) -Exudate Type Serosanguineous -Wound Margin Distinct, Outline Attached -Granulation Amt Small (1-33%) -Granulation Quality Red -Slough/Fibrin Yes -Necrosis Amt Large (67-100%) -Necrotic Tissue Type Adherent Slough -Structure Exposed None/Limited to Skin Breakdown -Texture (Amirah-wound Skin Appearance) Scarring -Moisture (Amirah-wound Skin Appearance Maceration ) -Color (Amirah-wound Skin Appearance) Erythema -Temperature (Amirah-wound Skin No Abnormality Appearance) (Pt Warm) -Tenderness on Palpation (Amirah-wound No Skin Appearance) -Ulcer Cleansing Rinsed/ Irrigated with Saline -Foul Odor after Cleansing No -Anesthetic Used 4% Lidocaine Solution 5% Lidocaine Gel #7- Stage III pressure ulcer RT GLUTEAL FOLD -Combined with other wound No -Current Size (cm) - Length 3.4 -Current Size (cm) - Width 2.8 -Current Size (cm) - Depth 3 -Total Square Cm 9.52 -Date of Last Picture (Recall this 07/27/17 field) -Photo Taken Yes -Epithelialization None Present -Tunneling No -Undermining/Tunneling No -Circular Undermining No -Exudate Amt Medium (34-66%) -Exudate Type Serosanguineous -Wound Margin Distinct, Outline Attached -Granulation Amt Large (67-100%) -Granulation Quality Red -Slough/Fibrin Yes -Necrosis Amt Small (1-33%) -Necrotic Tissue Type Adherent Slough -Structure Exposed Muscle -Texture (Amirah-wound Skin Appearance) Scarring -Color (Amirah-wound Skin Appearance) Erythema -Temperature (Amirah-wound Skin No Abnormality Appearance) (Pt Warm) -Tenderness on Palpation (Amirah-wound No Skin Appearance) -Ulcer Cleansing Rinsed/ Irrigated with Saline -Foul Odor after Cleansing No -Anesthetic Used 4% Lidocaine Solution 5% Lidocaine Gel #10 L buttocks stage IV -Combined with other wound No -Current Size (cm) - Length 0.6 -Current Size (cm) - Width 0.3 -Current Size (cm) - Depth 1.2 -Total Square Cm 0.18 -Date of Last Picture (Recall this 07/27/17 field) -Photo Taken Yes -Epithelialization None Present -Tunneling No -Undermining/Tunneling Yes -Undermining/Tunneling Starts (O' 12 clock) -Undermining/Tunneling Ends (O'clock) 12 -Maximum Distance (cm) 0.3 -Circular Undermining Yes -Exudate Amt Medium (34-66%) -Exudate Type Serosanguineous -Wound Margin Distinct, Outline Attached -Granulation Amt Large (67-100%) -Granulation Quality Weaver -Slough/Fibrin No -Necrosis Amt None Present (0 %) -Texture (Amirah-wound Skin Appearance) Scarring -Moisture (Amirah-wound Skin Appearance Maceration ) -Color (Amirah-wound Skin Appearance) Palor -Temperature (Amirah-wound Skin No Abnormality Appearance) (Pt Warm) -Tenderness on Palpation (Amirah-wound No Skin Appearance) -Ulcer Cleansing Rinsed/ Irrigated with Saline -Foul Odor after Cleansing No -Anesthetic Used 4% Lidocaine Solution 5% Lidocaine Gel Musculoskeletal: Muscle Wasting Neurological: Cranial nerves II-XII grossly intact Psych/Mental Status: Normal Affect, Appropriate, Alert and oriented to time, place, person, mood and affect Debridement Note Laterality: Right - Upper posterior thigh Type of Debridement: Excisional debridement Anesthesia Used: 4% Lidocaine Solution Depth: Down to and including healthy tissue, in the subcutaneous layer Percentage of wound debrided: 100 Instrument Used: 5mm curette Severity: Fat Layer Exposed Amount of bleeding with debridement: Mild Bleeding Controlled with: Compression and gauze Patient tolerated procedure well - Additional Wound Laterality: Right - Ischium Type of Debridement: Excisional debridement Anesthesia Used: 4% Lidocaine Solution Depth: Down to and including healthy tissue, in the subcutaneous layer Percentage of wound debrided: 100 Instrument Used: 5mm curette Severity: Fat Layer Exposed Amount of bleeding with debridement: Mild Bleeding Controlled with: Compression and gauze Patient tolerated procedure: Patient tolerated procedure well Assessment/Plan Active Problems Open wound of left thigh (Chronic) traumatic skin tear posterior thigh Diabetes mellitus (Chronic) Pressure ulcer of right buttock, stage 3 (Chronic) Diabetic neuropathy, type II diabetes mellitus (Chronic) Colostomy in place (Chronic) chronic osteomyelitis left ischial area (Chronic) Pressure sore of left ischium, stage 4 (Chronic) Physical deconditioning (Chronic) Assessment: This is a 67-year-old female with bilateral ischial pressure ulcerations. She also has an ulceration of the left buttock/posterior upper thigh. The patient has chosen to forego aggressive surgical management in the past, choosing rather to pursue more conservative treatment modalities. She is currently on a complex care regimen. Offloading measures are to be continued. We are to continue the use of Aquacel silver on each of the ischial pressure ulcerations, and Rain relative to the ulceration on the left upper posterior thigh. It appears as though the patient has, in the past, demonstrated evidence of noncompliance with recommended measures. Optimization of her diabetes mellitus has been recommended. Optimizing nutrition has also been reinforced. The patient does not wish to consider a more aggressive approach which would involve surgical options. Plan: As above. Will return in 2 weeks for reassessment. Optimizing nutrition and diabetes control has been recommended. Aquacel will be continued topically relative to the ischial pressure ulcerations. Asthma will be continued relative to the ulceration on the left upper posterior thigh. Offloading measures and frequent repositioning are to continue. She had a suprapubic catheter placed on 07/08/17. Encouraged to increase protein intake to aid in wound healing and maintain good control of diabetes. Discussed offloading importance in wound healing. F/U in 2 weeks. Influenza vaccine was not administered today. The patient is not a smoker. Patient weighs 166 pounds. She stands 5 feet 2 inches tall. BMI is 30.4. This places the patient in a class I category. Weight loss has been recommended, to be discussed by the patient with her primary care physician.
--- NOTE | 2017-08-05 12:58 | RAD_ITS ---
STUDY: X-RAY - PELVIS REASON FOR EXAM: Female, 67 years old. Soft tissue ulcer TECHNIQUE: One view of the pelvis was obtained. COMPARISON: CT pelvis dated June 14, 2014 FINDINGS: There is a non-specific bowel gas pattern. There are coarse ossific densities again seen in the soft tissues inferior to the left inferior pubic ramus. There are moderate degenerative changes in the lower lumbar spine. There are degenerative changes in both sacroiliac joints. There is minimal coarse thickening of the left inferior pubic ramus. Normal appearing pubic symphysis. The visualized ischial tuberosities are unremarkable. There is demineralization of the proximal right femur. The right acetabulum shows no significant abnormalities. There is mild articular joint space narrowing of the right hip. There is demineralization of the proximal left femur. The left acetabulum shows no significant abnormalities. There is mild articular joint space narrowing of the left hip. RAD/Pelvis 1 or 2 Views IMPRESSION: Chronic changes appear stable in the left inferior pubic ramus. There is no obvious bone destruction or evidence of osteomyelitis on this radiograph. If further evaluation is needed, an MRI or nuclear medicine scan can be considered. 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 Electronically Signed: Essie Campbell MD at 12:52 EDT Tel Direct: [phone], Service support ,
[2017-08-10 13:57] VITALS: BP 132/76; PULSE 76; RESP 18; TEMP 36.7
--- NOTE | 2017-08-10 15:41 | HP.PCM_ITS ---
(1) Chronic suprapubic catheter Status: Chronic Current Visit: No Code(s): Z93.59 - Other cystostomy status (2) Open wound of left thigh Status: Chronic Current Visit: Yes Qualifiers: Encounter type: subsequent encounter Qualified Code(s): S71.102D - Unspecified open wound, left thigh, subsequent encounter Code(s): S71.102A - Unspecified open wound, left thigh, initial encounter Comment: traumatic skin tear posterior thigh (3) Neurogenic bladder Status: Chronic Current Visit: No Code(s): N31.9 - Neuromuscular dysfunction of bladder, unspecified (4) Stage II pressure ulcer Status: Chronic Current Visit: Yes Qualifiers: Code(s): L89.92 - Pressure ulcer of unspecified site, stage 2 (5) Diabetes mellitus type 2 in nonobese Status: Chronic Current Visit: Yes Code(s): E11.9 - Type 2 diabetes mellitus without complications (6) Hypertension Status: Chronic Current Visit: No Qualifiers: Code(s): I10 - Essential (primary) hypertension (7) Gout Status: Chronic Current Visit: No Code(s): M10.9 - Gout, unspecified Comment: with arthropathy (8) Pressure ulcer of left buttock, stage 3 Status: Resolved Current Visit: No Code(s): L89.323 - Pressure ulcer of left buttock, stage 3 (9) Pressure ulcer of left buttock, stage 2 Status: Acute Current Visit: Yes Code(s): L89.322 - Pressure ulcer of left buttock, stage 2 (10) Diabetes mellitus Status: Chronic Current Visit: Yes Qualifiers: Diabetes mellitus type: type 2 Code(s): E11.9 - Type 2 diabetes mellitus without complications (11) Pressure ulcer of right buttock, stage 3 Status: Chronic Current Visit: Yes Code(s): L89.313 - Pressure ulcer of right buttock, stage 3 (12) Diabetic neuropathy, type II diabetes mellitus Status: Chronic Current Visit: Yes Code(s): E11.40 - Type 2 diabetes mellitus with diabetic neuropathy, unspecified (13) Colostomy in place Status: Chronic Current Visit: Yes Code(s): Z93.3 - Colostomy status (14) chronic osteomyelitis left ischial area Status: Chronic Current Visit: Yes (15) Pressure sore of left ischium, stage 4 Status: Chronic Current Visit: Yes Code(s): L89.324 - Pressure ulcer of left buttock, stage 4 (16) Anemia of chronic disease Status: Chronic Current Visit: No Code(s): D63.8 - Anemia in other chronic diseases classified elsewhere (17) Physical deconditioning Status: Chronic Current Visit: Yes Code(s): R53.81 - Other malaise (18) Spinal stenosis Status: Chronic Current Visit: No Qualifiers: Code(s): M48.00 - Spinal stenosis, site unspecified (19) Hyperlipidemia Status: Chronic Current Visit: No Code(s): E78.5 - Hyperlipidemia, unspecified (20) RP (rectal prolapse) Status: Chronic Current Visit: No Code(s): K62.3 - Rectal prolapse History of Present Illness Date of Service: 08/10/17 Chief Complaint: Left ischial pressure ulcer, Stage IV. Right ischial pressure ulcer, stage III. Spinal stenosis. Ulceration of left buttock. History of Wound: Patient is a 67-year-old female who has a chronic pressure ulcer of her left ischium and right ischium. Patient was initially hospitalized for a swelling and redness of her right leg approximately 2014. This was evaluated for cellulitis. She was seen in consultation by infectious disease and plastic surgery. The patient was taken to surgery for an operative debridement of her chronic left ischial ulcer, underwent wound vac treatment and IV antibiotics. She was abruptly released from the [facility] after only a few weeks, before end of therapy. She had finished her IV antibiotics for Grp A strep osteomyelitis at home and continued with PT at home as well. She has decided to go with the conservative care route since she feels that her quality of life is more important than healing out the wound but had continued to keep the wound vac. The wound vac was discontinued by her insurance for failure to show improvement in the size of her wound. She has been seen twice monthly for conservative/palliative/complex care of her bilateral ischial pressure ulcers. She lives with her brother and [id number], who help address her ulcers/ wounds. She has recently developed a skin tear/abrasion of the left buttock/ upper posterior thigh. Current management involves the use of Rain topically to the skin tear on the left posterior upper thigh, and Aquacel with respect to the ischial pressure ulcerations. The patient has recently completed courses of antibiotics which have included Augmentin and clindamycin. In January 2017, she underwent treatment after developing pressure ulcers which occurred from urinary incontinence issues associated with a chronic UTI and leakage of her catheter. She developed another pressure ulcer of her right buttock on or around April 20, 2017, and presented for treatment of this area as well as continued treatment of her left ischial pressure ulcer. Denies fever, chills or increased pain. The patient indicates that she sleeps on an air loss mattress, and possesses a Roho cushion for her wheelchair. She has previously been counseled as to the importance of offloading measures. She also has been taking Sigifredo protein shakes, and is aware that optimizing glycemic control is advisable. Review of recent laboratory studies reveals a protein of 8.6, albumin 3.2, and hemoglobin A1c of 6.9, on June 03, 2017. Patient is essentially nonambulatory, and uses a walker for transition from bed to chair. She is severely deconditioned. Past Medical History Past Medical History: Chronic Problems Open wound of left thigh (Chronic) traumatic skin tear posterior thigh Neurogenic bladder (Chronic) Stage II pressure ulcer (Chronic) Chronic suprapubic catheter (Chronic) Diabetes mellitus type 2 in nonobese (Chronic) Hypertension (Chronic) Gout (Chronic) with arthropathy Diabetes mellitus (Chronic) Pressure ulcer of right buttock, stage 3 (Chronic) Diabetic neuropathy, type II diabetes mellitus (Chronic) Malnutrition (Chronic) Back pain (Chronic) Arthritis (Chronic) 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 significance to followup Anemia of chronic disease (Chronic) Physical deconditioning (Chronic) Dupuytren's contracture of right hand (Chronic) Spinal stenosis (Chronic) Hyperlipidemia (Chronic) RP (rectal prolapse) (Chronic) Surgical History: - - Surgery for rectal prolapse with anterior resection and rectopexy at [facility] in 2008 and back surgery 1979. Colostomy was November 2012. She had blood transfusions in October 2012 at [facility] for blood loss anemia. excision left ischial pressure sore with partial ostectomy for osteomyelitis and excision right ischial pressure sore and excision left lateral ankle pressure sore with partial ostectomy for osteomyelitis in 08/01. Ab0. Allergies/Adverse Reactions: Allergies No Known Allergies Allergy (Verified 07/01/17 10:11) Home Medications: Ambulatory Orders Medication Instructions Recorded Allopurinol [Zyloprim] 100 mg PO BID 07/05/14 Latanoprost 0.005% [Xalatan 1 drop EACH EYE QHS 07/05/14 Opthalmic] Losartan Potassium [Cozaar] 25 mg PO DAILY 07/05/14 Metformin HCl [Glucophage] 1,000 mg PO BIDCM 07/05/14 Multivitamins,Therapeutic 1 tablet PO DAILY 07/05/14 [Multivitamin] Simvastatin [Zocor] 10 mg PO QHS 07/05/14 Timolol Maleate [Timoptic-XE 0.5%] 1 drop EACH EYE DAILY 07/05/14 Acetaminophen [Tylenol Tablet] 650 mg PO Q6H PRN PRN #0 tablet 07/11/14 Furosemide [Lasix] 40 mg PO DAILY 06/29/15 Potassium Chloride [K-Dur] 20 meq PO DAILY 06/29/15 Saxagliptin HCl [Onglyza] 5 mg PO DAILY 07/01/17 Solifenacin Succinate [Vesicare] 10 mg PO DAILY 07/01/17 Cephalexin [Keflex] 500 mg PO Q8 #21 cap 07/08/17 - Family History Maternal Diabetes, Hypertension Paternal Diabetes, Hypertension Lives: With Family - Patient lives with her brother and [id number]. Smoking Status: Never smoker Tobacco Use: Non-smoker Alcohol: None Drugs: None Review of Systems Constitutional: Denies: Chills, Fever, Weight Change Eyes: Denies: Pain, Vision Change HEENT: Denies: Difficulty Hearing, Difficulty Swallowing, Sinus Congestion Cardiovascular: Denies: Chest Pain, Palpitations Respiratory: Denies: Cough, Shortness of Breath Gastrointestinal: Denies: Diarrhea, Nausea, Vomiting Genitourinary: Denies: Dysuria, Hematuria Endocrine: Denies: Heat/ Cold Intolerance, Polydipsia, Polyuria Hematologic/ Lymphatic: Denies: Easy Bruising, Easy Bleeding - Physical Exam Vital Signs Temp Pulse Resp BP 98.0 F 76 18 132/76 H 08/10/17 13:57 08/10/17 13:57 08/10/17 13:57 08/10/17 13:57 General: Alert, Oriented x3, Cooperative, No apparent distress, Well developed, Well nourished, - - The patient is severely deconditioned and does not ambulate. HEENT: Atraumatic, PERRLA, EOMI, Normocephalic Oral: Moist Mucosa Neck: No JVD Lungs: Normal air movement Abdomen: Non-Distended, Obese Extremities: No clubbing, No cyanosis, No edema Skin: - - A large stage III ischial pressure ulceration is noted on the right side. There is a moderate amount of bioburden. Stage IV left ischial pressure ulcerations present, appearing to extend down to bone. An ulceration is also noted on the left buttock, which is somewhat superficial in nature, extending through the dermal layers and into the subcutaneous tissue. The dimensions of each of the ulcerations as noted elsewhere. Wound Measurements and Assessment WC - Nurse 1 - General Ulcer Measurement Start: 07/27/17 13:14 Freq: Status: Active Protocol: Activity Type Activity Date Activity User E-Sign Co-Sign Detail Recorded Client Recorded Date Recorded By Document 08/10/17 13:57 DV [id number] 08/10/17 14:17 DV 08/10/17 13:57 Wound Center Nurse 1 [Ulcer Assessment] #11 left upper thigh -Combined with other wound No -Current Size (cm) - Length 3.5 -Current Size (cm) - Width 2.4 -Current Size (cm) - Depth 0.1 -Total Square Cm 8.40 -Photo Taken No -Epithelialization None Present -Tunneling No -Undermining/Tunneling No -Circular Undermining No -Classification - Thickness Full Thickness without Exposed Support Structure -Exudate Amt Medium (34-66%) -Exudate Type Serosanguineous -Wound Margin Flat & Intact -Granulation Amt Medium (34-66%) -Granulation Quality [place] Red -Slough/Fibrin Yes -Necrosis Amt Medium (34-66%) -Necrotic Tissue Type Adherent Slough -Structure Exposed None/Limited to Skin Breakdown -Texture (Amirah-wound Skin Appearance) No Abnormality Assessed -Moisture (Amirah-wound Skin Appearance Assessed ) Maceration -Color (Amirah-wound Skin Appearance) No Abnormality Assessed -Temperature (Amirah-wound Skin No Abnormality Appearance) (Pt Warm) -Tenderness on Palpation (Amirah-wound No Skin Appearance) -Ulcer Cleansing Rinsed/ Irrigated with Saline -Foul Odor after Cleansing No -Anesthetic Used 4% Lidocaine Solution #7- Stage III pressure ulcer RT GLUTEAL FOLD -Combined with other wound No -Current Size (cm) - Length 3.5 -Current Size (cm) - Width 2.2 -Current Size (cm) - Depth 2.5 -Total Square Cm 7.70 -Photo Taken No -Epithelialization None Present -Tunneling No -Undermining/Tunneling No -Circular Undermining No -Exudate Amt Large (67-100%) -Exudate Type Serosanguineous -Wound Margin Distinct, Outline Attached -Granulation Amt None Present (0 %) -Granulation Quality N/A -Slough/Fibrin No -Necrosis Amt Large (67-100%) -Necrotic Tissue Type Adherent Slough -Structure Exposed None/Limited to Skin Breakdown -Texture (Amirah-wound Skin Appearance) Assessed Localized Edema Scarring -Moisture (Amirah-wound Skin Appearance Assessed ) Maceration -Color (Amirah-wound Skin Appearance) No Abnormality -Temperature (Amirah-wound Skin No Abnormality Appearance) (Pt Warm) -Tenderness on Palpation (Amirah-wound No Skin Appearance) -Ulcer Cleansing Rinsed/ Irrigated with Saline -Foul Odor after Cleansing No -Anesthetic Used 4% Lidocaine Solution #10 L buttocks stage IV -Combined with other wound No -Current Size (cm) - Length 0.7 -Current Size (cm) - Width 1.5 -Current Size (cm) - Depth 1.0 -Total Square Cm 1.05 -Epithelialization None Present -Tunneling No -Circular Undermining No -Exudate Amt Large (67-100%) -Exudate Type Serosanguineous -Wound Margin Indistinct, Non -Visible -Granulation Amt None Present (0 %) -Granulation Quality N/A -Slough/Fibrin Yes -Necrosis Amt Large (67-100%) -Necrotic Tissue Type Adherent Slough -Structure Exposed None/Limited to Skin Breakdown -Texture (Amirah-wound Skin Appearance) Assessed Localized Edema -Moisture (Amirah-wound Skin Appearance Assessed ) Maceration -Color (Amirah-wound Skin Appearance) No Abnormality Assessed -Temperature (Amirah-wound Skin No Abnormality Appearance) (Pt Warm) -Ulcer Cleansing Rinsed/ Irrigated with Saline -Foul Odor after Cleansing No -Anesthetic Used 4% Lidocaine Solution WC - Nurse 2 - General Ulcer CM Notes Start: 04/09/18 13:14 Freq: Status: Active Protocol: Activity Type Activity Date Activity User E-Sign Co-Sign Detail Recorded Client Recorded Date Recorded By Document 08/10/17 15:23 DV [id number] 08/10/17 15:25 DV 08/10/17 15:23 Wound Center Nurse 2 [Procedure/Treatment] #11 left upper thigh -Time 15:24 -Correct Patient Yes -Correct Side, Site, Position Yes -Correct Procedure Yes -Procedure Performed Yes -Type of Procedure Debridement -Clinical Debridement Subcutaneous -Post Debridement Size (cm) - Length 3.6 -Post Debridement Size (cm) - Width 2.5 -Post Debridement Size (cm) - Depth 0.1 -Total Square Cm 9.00 -Wound/Ulcer Outcome Not Healed -Ulcer Cleansing Rinsed/ Irrigated with Saline -Foul Odor after Cleansing No -Bioengineered Tissue No -Bleeding Controlled with Pressure -Treatment Response Procedure Tolerated Well #7- Stage III pressure ulcer RT GLUTEAL FOLD -Time 15:24 -Correct Patient Yes -Correct Side, Site, Position Yes -Correct Procedure Yes -Procedure Performed Yes -Type of Procedure Debridement -Clinical Debridement Subcutaneous -Post Debridement Size (cm) - Length 3.6 -Post Debridement Size (cm) - Width 2.3 -Post Debridement Size (cm) - Depth 2.5 -Total Square Cm 8.28 -Wound/Ulcer Outcome Not Healed -Ulcer Cleansing Rinsed/ Irrigated with Saline -Foul Odor after Cleansing No -Bioengineered Tissue No -Bleeding Controlled with Pressure -Treatment Response Procedure Tolerated Well #10 L buttocks stage IV -Time 15:25 -Correct Patient Yes -Correct Side, Site, Position Yes -Correct Procedure Yes -Procedure Performed Yes -Type of Procedure Debridement -Clinical Debridement Subcutaneous -Post Debridement Size (cm) - Length 0.7 -Post Debridement Size (cm) - Width 1.6 -Post Debridement Size (cm) - Depth 1.0 -Total Square Cm 1.12 -Wound/Ulcer Outcome Not Healed -Ulcer Cleansing Rinsed/ Irrigated with Saline -Foul Odor after Cleansing No -Bioengineered Tissue No -Bleeding Controlled with Pressure -Treatment Response Procedure Tolerated Well [See Physician Procedure note for Specifics] Pain Scale: 0-10 Numeric [Pain] -Is Patient Pain Free? Yes Musculoskeletal: Muscle Wasting Neurological: Cranial nerves II-XII grossly intact Psych/Mental Status: Normal Affect, Appropriate, Alert and oriented to time, place, person, mood and affect Debridement Note Post-Debridement Measurements/Treatment WC - Nurse 2 - General Ulcer CM Notes Start: 07/27/17 13:14 Freq: Status: Active Protocol: Activity Type Activity Date Activity User E-Sign Co-Sign Detail Recorded Client Recorded Date Recorded By Document 07/27/17 13:41 JS [id number] 07/27/17 14:06 JS Document 08/10/17 15:23 DV [id number] 08/10/17 15:25 DV 07/27/17 08/10/17 13:41 15:23 Wound Center Nurse 2 #11 left upper thigh -Time 13:41 15:24 -Correct Patient Yes Yes -Correct Side, Site, Position Yes Yes -Correct Procedure Yes Yes -Procedure Performed Yes Yes -Type of Procedure Debridement Debridement -Clinical Debridement Subcutaneous Subcutaneous -Post Debridement Size (cm) - Length 4.2 3.6 -Post Debridement Size (cm) - Width 1.9 2.5 -Post Debridement Size (cm) - Depth 0.1 0.1 -Total Square Cm 7.98 9.00 -Wound/Ulcer Outcome Not Healed Not Healed -Ulcer Cleansing Rinsed/ Rinsed/ Irrigated with Irrigated with Saline Saline -Foul Odor after Cleansing No No -Bioengineered Tissue No No -Bleeding Controlled with NA Pressure -Treatment Response Procedure Procedure Tolerated Well Tolerated Well #7- Stage III pressure ulcer RT GLUTEAL FOLD -Time 13:42 15:24 -Correct Patient Yes Yes -Correct Side, Site, Position Yes Yes -Correct Procedure Yes Yes -Procedure Performed Yes Yes -Type of Procedure Debridement Debridement -Clinical Debridement Subcutaneous Subcutaneous -Post Debridement Size (cm) - Length 3.4 3.6 -Post Debridement Size (cm) - Width 2.8 2.3 -Post Debridement Size (cm) - Depth 3.0 2.5 -Total Square Cm 9.52 8.28 -Wound/Ulcer Outcome Not Healed Not Healed -Ulcer Cleansing Rinsed/ Rinsed/ Irrigated with Irrigated with Saline Saline -Foul Odor after Cleansing No No -Bioengineered Tissue No No -Topical Lidocaine (%) 4 -Lidocaine (ml) 5 -Bleeding Controlled with NA Pressure -Treatment Response Procedure Procedure Tolerated Well Tolerated Well #10 L buttocks stage IV -Time 13:42 15:25 -Correct Patient Yes Yes -Correct Side, Site, Position Yes Yes -Correct Procedure Yes Yes -Procedure Performed Yes Yes -Type of Procedure Debridement Debridement -Clinical Debridement Subcutaneous Subcutaneous -Post Debridement Size (cm) - Length 0.6 0.7 -Post Debridement Size (cm) - Width 1.3 1.6 -Post Debridement Size (cm) - Depth 0.2 1.0 -Total Square Cm 0.78 1.12 -Wound/Ulcer Outcome Not Healed Not Healed -Ulcer Cleansing Rinsed/ Rinsed/ Irrigated with Irrigated with Saline Saline -Foul Odor after Cleansing No No -Bioengineered Tissue No No -Topical Lidocaine (%) 4 -Lidocaine (ml) 5 -Bleeding Controlled with NA Pressure -Treatment Response Procedure Procedure Tolerated Well Tolerated Well Pain Scale: 0-10 Numeric Is Patient Pain Free? Yes Yes Laterality: Right - Initial ulceration Type of Debridement: Excisional debridement Anesthesia Used: 4% Lidocaine Solution Depth: Down to and including healthy tissue, in the subcutaneous layer Instrument Used: 5mm curette Severity: Fat Layer Exposed Amount of bleeding with debridement: Mild Bleeding Controlled with: Compression and gauze Patient tolerated procedure well - Additional Wound Laterality: Left - Buttock Type of Debridement: Excisional debridement Anesthesia Used: 4% Lidocaine Solution Depth: Down to and including healthy tissue, in the subcutaneous layer Percentage of wound debrided: 100 Instrument Used: 5mm curette Severity: Fat Layer Exposed Amount of bleeding with debridement: Mild Bleeding Controlled with: Compression and gauze Patient tolerated procedure: Patient tolerated procedure well Assessment/Plan Clinical Impression(s) from Imaging Studies Pelvis X-Ray 08/05/17 12:58 IMPRESSION: Chronic changes appear stable in the left inferior pubic ramus. There is no obvious bone destruction or evidence of osteomyelitis on this radiograph. If further evaluation is needed, an MRI or nuclear medicine scan can be considered. 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 Electronically Signed: Essie Campbell MD at 12:52 EDT Tel Direct: [phone], Service support , Active Problems Open wound of left thigh (Chronic) traumatic skin tear posterior thigh Stage II pressure ulcer (Chronic) Diabetes mellitus type 2 in nonobese (Chronic) Pressure ulcer of left buttock, stage 2 (Acute) Diabetes mellitus (Chronic) Pressure ulcer of right buttock, stage 3 (Chronic) Diabetic neuropathy, type II diabetes mellitus (Chronic) Colostomy in place (Chronic) chronic osteomyelitis left ischial area (Chronic) Pressure sore of left ischium, stage 4 (Chronic) Physical deconditioning (Chronic) Assessment: This is a 67-year-old female with bilateral ischial pressure ulcerations. She also has an ulceration of the left buttock/posterior upper thigh. The patient has chosen to forego aggressive surgical management in the past, choosing rather to pursue more conservative treatment modalities. She is currently on a complex care regimen. Offloading measures are to be continued. The patient's ischial pressure ulcerations are quite exudative, we are to consider a change to a product such as MelgiSorb for absorption of the drainage. Collagenase Santyl is to be great with reference to the left buttock ulceration, as there is a significant amount of topical bioburden. Optimization of her diabetes mellitus has been recommended. Optimizing nutrition has also been reinforced. The patient does not wish to consider a more aggressive approach which would involve surgical options. She has rebuffed the idea of consultation with a plastic surgeon. Recent CT scan of the pelvis, performed 08/05/2017, reveals no evidence of osteomyelitis. She is eager for the return of her primary wound healing center physician, Dr. Bull, who is currently on maternity leave. Plan: As above. Will return in 2 weeks for reassessment. Optimizing nutrition and diabetes control has been recommended. Offloading measures and frequent repositioning are to continue. She had a suprapubic catheter placed on . Encouraged to increase protein intake to aid in wound healing and maintain good control of diabetes. Discussed offloading importance in wound healing. We are to use MelgiSorb for the initial ulcerations, and collagenase Santyl topically on the left buttock ulceration. F/U in 2 weeks. Influenza vaccine was not administered today. The patient is not a smoker. Patient weighs 166 pounds. She stands 5 feet 2 inches tall. BMI is 30.4. This places the patient in a class I category. Weight loss has been recommended, to be discussed by the patient with her primary care physician.
== END 2017-08-17 23:59 ==
LOC: WC 13:30
PROVIDERS: Family Provider Family Medicine; PCP Family Medicine; Visit Provider Surgery
DX: E11.622 Type 2 diabetes mellitus with other skin ulcer (principal); L89.224 Pressure ulcer of left hip, stage 4; L89.213 Pressure ulcer of right hip, stage 3; E78.5 Hyperlipidemia, unspecified; Z93.3 Colostomy status; I10 Essential (primary) hypertension; M10.9 Gout, unspecified; E11.40 Type 2 diabetes mellitus with diabetic neuropathy, unspecified; M86.68 Other chronic osteomyelitis, other site; S71.102A Unspecified open wound, left thigh, initial encounter; X58.XXXA Exposure to other specified factors, initial encounter; Z79.899 Other long term (current) drug therapy; Z79.84 Long term (current) use of oral hypoglycemic drugs; N31.9 Neuromuscular dysfunction of bladder, unspecified; D63.8 Anemia in other chronic diseases classified elsewhere
CPT/HCPCS: 11042; 72170

== ENCOUNTER 2017-09-07 13:30 | Outpatient (RCR) | payer MEDICAID, SELFPAY ==
[2017-08-18 00:27] VITALS: BP 108/73; PULSE 76; RESP 18; TEMP 36.7
[2017-08-24 13:29] VITALS: BP 126/71; PULSE 108; RESP 16; TEMP 36.3
--- NOTE | 2017-08-24 14:25 | HP.PCM_ITS ---
(1) Open wound of left thigh Status: Chronic Current Visit: Yes Qualifiers: Encounter type: subsequent encounter Code(s): S71.102A - Unspecified open wound, left thigh, initial encounter Comment: traumatic skin tear posterior thigh (2) Incompetent urethral closure mechanism Status: Chronic Current Visit: No Code(s): N36.8 - Other specified disorders of urethra (3) Neurogenic bladder Status: Chronic Current Visit: No Code(s): N31.9 - Neuromuscular dysfunction of bladder, unspecified (4) Stage II pressure ulcer Status: Chronic Current Visit: Yes Qualifiers: Pressure ulcer location: thigh Code(s): L89.92 - Pressure ulcer of unspecified site, stage 2 (5) Chronic suprapubic catheter Status: Chronic Current Visit: No Code(s): Z93.59 - Other cystostomy status (6) Diabetes mellitus type 2 in nonobese Status: Chronic Current Visit: No Code(s): E11.9 - Type 2 diabetes mellitus without complications (7) Hypertension Status: Chronic Current Visit: No Qualifiers: Code(s): I10 - Essential (primary) hypertension (8) Gout Status: Chronic Current Visit: No Code(s): M10.9 - Gout, unspecified Comment: with arthropathy (9) Pressure ulcer of left buttock, stage 3 Status: Resolved Current Visit: No Code(s): L89.323 - Pressure ulcer of left buttock, stage 3 (10) Pressure ulcer of left buttock, stage 2 Status: Resolved Current Visit: Yes Code(s): L89.322 - Pressure ulcer of left buttock, stage 2 (11) Diabetes mellitus Status: Chronic Current Visit: No Code(s): E11.9 - Type 2 diabetes mellitus without complications (12) Pressure ulcer of right buttock, stage 3 Status: Chronic Current Visit: Yes Code(s): L89.313 - Pressure ulcer of right buttock, stage 3 (13) Diabetic neuropathy, type II diabetes mellitus Status: Chronic Current Visit: Yes Code(s): E11.40 - Type 2 diabetes mellitus with diabetic neuropathy, unspecified (14) Malnutrition Status: Chronic Current Visit: No Qualifiers: Code(s): E46 - Unspecified protein-calorie malnutrition (15) Back pain Status: Chronic Current Visit: No Qualifiers: Code(s): M54.9 - Dorsalgia, unspecified (16) Arthritis Status: Chronic Current Visit: No Code(s): M19.90 - Unspecified osteoarthritis, unspecified site (17) Colostomy in place Status: Chronic Current Visit: No Code(s): Z93.3 - Colostomy status (18) chronic osteomyelitis left ischial area Status: Chronic Current Visit: Yes (19) Pressure sore of left ischium, stage 4 Status: Chronic Current Visit: Yes Code(s): L89.324 - Pressure ulcer of left buttock, stage 4 (20) Lytic bone lesion of right femur Status: Chronic Current Visit: No Code(s): M89.8X5 - Other specified disorders of bone, thigh Comment: and right humerus ? significance to followup (21) Anemia of chronic disease Status: Chronic Current Visit: No Code(s): D63.8 - Anemia in other chronic diseases classified elsewhere (22) Physical deconditioning Status: Chronic Current Visit: No Code(s): R53.81 - Other malaise (23) Dupuytren's contracture of right hand Status: Chronic Current Visit: No Code(s): M72.0 - Palmar fascial fibromatosis [Dupuytren] (24) Spinal stenosis Status: Chronic Current Visit: Yes Qualifiers: Code(s): M48.00 - Spinal stenosis, site unspecified (25) Hyperlipidemia Status: Chronic Current Visit: No Code(s): E78.5 - Hyperlipidemia, unspecified (26) RP (rectal prolapse) Status: Chronic Current Visit: No Code(s): K62.3 - Rectal prolapse History of Present Illness Date of Service: 08/24/17 Chief Complaint: Left ischial pressure ulcer, Stage IV. Right ischial pressure ulcer, stage III. Spinal stenosis. Ulceration of left buttock. History of Wound: Patient is a 67-year-old female who has a chronic pressure ulcer of her left ischium and right ischium. Patient was initially hospitalized for a swelling and redness of her right leg approximately 2014. This was evaluated for cellulitis. She was seen in consultation by infectious disease and plastic surgery. The patient was taken to surgery for an operative debridement of her chronic left ischial ulcer, underwent wound vac treatment and IV antibiotics. She was abruptly released from the [facility] after only a few weeks, before end of therapy. She had finished her IV antibiotics for Grp A strep osteomyelitis at home and continued with PT at home as well. She has decided to go with the conservative care route since she feels that her quality of life is more important than healing out the wound but had continued to keep the wound vac. The wound vac was discontinued by her insurance for failure to show improvement in the size of her wound. She has been seen twice monthly for conservative/palliative/complex care of her bilateral ischial pressure ulcers. She lives with her brother and [id number], who help dress her ulcers/wounds. She has recently developed a skin tear/abrasion of the left buttock/upper posterior thigh. Current management involves the use of collagenase Santyl topically to the skin tear on the left posterior upper thigh, and Aquacel with respect to the ischial pressure ulcerations. The patient has recently completed courses of antibiotics which have included Augmentin and clindamycin. In January 2017, she underwent treatment after developing pressure ulcers which occurred from urinary incontinence issues associated with a chronic UTI and leakage of her catheter. She developed another pressure ulcer of her right buttock on or around April 20, 2017, and presented for treatment of this area as well as continued treatment of her left ischial pressure ulcer. Denies fever , chills or increased pain. The patient indicates that she sleeps on an air loss mattress, and possesses a Roho cushion for her wheelchair. She has previously been counseled as to the importance of offloading measures. She also has been taking Sigifredo protein shakes, and is aware that optimizing glycemic control is advisable. Review of recent laboratory studies reveals a protein of 8.6, albumin 3.2, and hemoglobin A1c of 6.9, on June 03, 2017. Patient is essentially nonambulatory, and uses a walker for transition from bed to chair. She is severely deconditioned. Past Medical History Past Medical History: Chronic Problems Open wound of left thigh (Chronic) traumatic skin tear posterior thigh Incompetent urethral closure mechanism (Chronic) Neurogenic bladder (Chronic) Stage II pressure ulcer (Chronic) Chronic suprapubic catheter (Chronic) Diabetes mellitus type 2 in nonobese (Chronic) Hypertension (Chronic) Gout (Chronic) with arthropathy Diabetes mellitus (Chronic) Pressure ulcer of right buttock, stage 3 (Chronic) Diabetic neuropathy, type II diabetes mellitus (Chronic) Malnutrition (Chronic) Back pain (Chronic) Arthritis (Chronic) 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 significance to followup Anemia of chronic disease (Chronic) Physical deconditioning (Chronic) Dupuytren's contracture of right hand (Chronic) Spinal stenosis (Chronic) Hyperlipidemia (Chronic) RP (rectal prolapse) (Chronic) Surgical History: - - Surgery for rectal prolapse with anterior resection and rectopexy at [facility] in 2008 and back surgery 1979. Colostomy was November 2012. She had blood transfusions in October 2012 at [facility] for blood loss anemia. excision left ischial pressure sore with partial ostectomy for osteomyelitis and excision right ischial pressure sore and excision left lateral ankle pressure sore with partial ostectomy for osteomyelitis in 08/01. Ab0. Allergies/Adverse Reactions: Allergies No Known Allergies Allergy (Verified 07/01/17 10:11) Home Medications: Ambulatory Orders Medication Instructions Recorded Allopurinol [Zyloprim] 100 mg PO BID 07/05/14 Latanoprost 0.005% [Xalatan 1 drop EACH EYE QHS 07/05/14 Opthalmic] Losartan Potassium [Cozaar] 25 mg PO DAILY 07/05/14 Metformin HCl [Glucophage] 1,000 mg PO BIDCM 07/05/14 Multivitamins,Therapeutic 1 tablet PO DAILY 07/05/14 [Multivitamin] Simvastatin [Zocor] 10 mg PO QHS 07/05/14 Timolol Maleate [Timoptic-XE 0.5%] 1 drop EACH EYE DAILY 07/05/14 Acetaminophen [Tylenol Tablet] 650 mg PO Q6H PRN PRN #0 tablet 07/11/14 Furosemide [Lasix] 40 mg PO DAILY 06/29/15 Potassium Chloride [K-Dur] 20 meq PO DAILY 06/29/15 Saxagliptin HCl [Onglyza] 5 mg PO DAILY 07/01/17 Solifenacin Succinate [Vesicare] 10 mg PO DAILY 07/01/17 Cephalexin [Keflex] 500 mg PO Q8 #21 cap 07/08/17 - Family History Maternal Diabetes, Hypertension Paternal Diabetes, Hypertension Smoking Status: Never smoker Tobacco Use: Non-smoker Review of Systems Constitutional: Denies: Chills, Fever, Weight Change Eyes: Denies: Pain, Vision Change HEENT: Denies: Difficulty Hearing, Difficulty Swallowing, Sinus Congestion Cardiovascular: Denies: Chest Pain, Palpitations Respiratory: Denies: Cough, Shortness of Breath Gastrointestinal: Denies: Diarrhea, Nausea, Vomiting Genitourinary: Denies: Dysuria, Hematuria Endocrine: Denies: Heat/ Cold Intolerance, Polydipsia, Polyuria Hematologic/ Lymphatic: Denies: Easy Bruising, Easy Bleeding - Physical Exam Vital Signs Temp Pulse Resp BP 97.3 F L 108 H 16 126/71 H 08/24/17 13:29 08/24/17 13:29 08/24/17 13:29 08/24/17 13:29 General: Alert, Oriented x3, Cooperative, No apparent distress, Well developed, Well nourished HEENT: Atraumatic, PERRLA, EOMI, Normocephalic Oral: Moist Mucosa Neck: No JVD Lungs: Normal air movement Abdomen: Non-Distended Extremities: No clubbing, No cyanosis, No edema, No Calf Tenderness Skin: - - An open ulceration is noted on the left upper posterior thigh. The base of the ulceration is generally pink, with some necrotic tissue noted centrally. Dimensions are documented elsewhere. A stage III ischial pressure ulceration is noted over the right issue him. A stage IV ischial pressure ulceration is noted overlying the left ischium. Dimensions are documented elsewhere. There is no obvious sign of infection or cellulitis. The right ischial pressure ulceration is generally pink and healthy in appearance, with active granulation tissue. The left tissue pressure ulceration appears to extend down to bone. Wound Measurements and Assessment WC - Nurse 1 - General Ulcer Measurement Start: 08/24/17 13:29 Freq: Status: Active Protocol: Activity Type Activity Date Activity User E-Sign Co-Sign Detail Recorded Client Recorded Date Recorded By Document 08/24/17 13:29 [facility] [id number] 08/24/17 13:51 [facility] 08/24/17 13:29 Wound Center Nurse 1 [Ulcer Assessment] #11 left upper thigh -Combined with other wound No -Current Size (cm) - Length 3.9 -Current Size (cm) - Width 2.4 -Current Size (cm) - Depth 0.1 -Total Square Cm 9.36 -Date of Last Picture (Recall this 08/24/17 field) -Photo Taken Yes -Epithelialization Small 1-33% -Tunneling No -Undermining/Tunneling No -Circular Undermining No -Exudate Amt Large (67-100%) -Exudate Type Serosanguineous -Wound Margin Distinct, Outline Attached -Granulation Amt Medium (34-66%) -Granulation Quality Red -Slough/Fibrin Yes -Necrosis Amt Medium (34-66%) -Necrotic Tissue Type Adherent Slough -Structure Exposed None/Limited to Skin Breakdown -Texture (Amirah-wound Skin Appearance) Scarring -Moisture (Amirah-wound Skin Appearance Assessed ) -Color (Amirah-wound Skin Appearance) Assessed -Temperature (Amirah-wound Skin No Abnormality Appearance) (Pt Warm) -Tenderness on Palpation (Amirah-wound No Skin Appearance) -Ulcer Cleansing Wound Cleanser -Foul Odor after Cleansing No -Anesthetic Used 4% Lidocaine Solution #7- Stage III pressure ulcer RT GLUTEAL FOLD -Combined with other wound No -Current Size (cm) - Length 3.1 -Current Size (cm) - Width 1.2 -Current Size (cm) - Depth 1.4 -Total Square Cm 3.72 -Date of Last Picture (Recall this 08/24/17 field) -Photo Taken Yes -Epithelialization None Present -Tunneling Yes -Tunneling Position (O'clock) 10 -Tunneling Distance (cm) 2.8 -Undermining/Tunneling No -Circular Undermining No -Exudate Amt Large (67-100%) -Exudate Type Serosanguineous -Wound Margin Distinct, Outline Attached -Granulation Amt Large (67-100%) -Granulation Quality Red -Slough/Fibrin No -Necrosis Amt None Present (0 %) -Texture (Amirah-wound Skin Appearance) Scarring -Moisture (Amirah-wound Skin Appearance No Abnormality ) Assessed -Color (Amirah-wound Skin Appearance) No Abnormality Assessed Palor -Temperature (Amirah-wound Skin No Abnormality Appearance) (Pt Warm) -Tenderness on Palpation (Amirah-wound No Skin Appearance) -Ulcer Cleansing Wound Cleanser -Foul Odor after Cleansing No -Anesthetic Used 4% Lidocaine Solution #10 L buttocks stage IV -Combined with other wound No -Current Size (cm) - Length 0.8 -Current Size (cm) - Width 0.1 -Current Size (cm) - Depth 1 -Total Square Cm 0.08 -Date of Last Picture (Recall this 08/24/17 field) -Photo Taken Yes -Epithelialization None Present -Tunneling No -Undermining/Tunneling No -Circular Undermining No -Exudate Amt Large (67-100%) -Exudate Type Serosanguineous -Wound Margin Distinct, Outline Attached -Granulation Amt Large (67-100%) -Granulation Quality [place] -Slough/Fibrin No -Necrosis Amt None Present (0 %) -Texture (Amirah-wound Skin Appearance) Scarring -Moisture (Amirah-wound Skin Appearance Maceration ) -Color (Amirah-wound Skin Appearance) Assessed Palor -Temperature (Amirah-wound Skin No Abnormality Appearance) (Pt Warm) -Tenderness on Palpation (Amirah-wound No Skin Appearance) -Ulcer Cleansing Wound Cleanser -Foul Odor after Cleansing No -Anesthetic Used 4% Lidocaine Solution Neurological: Cranial nerves II-XII grossly intact Psych/Mental Status: Normal Affect, Appropriate, Alert and oriented to time, place, person, mood and affect Debridement Note Laterality: Right - Ischium Type of Debridement: Excisional debridement Anesthesia Used: 4% Lidocaine Solution Percentage of wound debrided: 100 Instrument Used: 5mm curette Severity: Fat Layer Exposed Amount of bleeding with debridement: Mild Bleeding Controlled with: Compression and gauze Patient tolerated procedure well - Additional Wound Laterality: Left - Ischium Type of Debridement: Excisional debridement Anesthesia Used: 4% Lidocaine Solution Depth: Down to and including healthy tissue, in the subcutaneous layer Percentage of wound debrided: 100 Instrument Used: 5mm curette Severity: Fat Layer Exposed Amount of bleeding with debridement: Mild Bleeding Controlled with: Compression and gauze Patient tolerated procedure: Patient tolerated procedure well - Additional Wound Laterality: Left - Upper posterior thigh Type of Debridement: Excisional debridement Anesthesia Used: 4% Lidocaine Solution Depth: Down to and including healthy tissue, in the subcutaneous layer Percentage of wound debrided: 100 Instrument Used: 5mm curette Severity: Fat Layer Exposed Amount of bleeding with debridement: Mild Bleeding Controlled with: Compression and gauze Patient tolerated procedure: Patient tolerated procedure well Assessment/Plan Active Problems Open wound of left thigh (Chronic) traumatic skin tear posterior thigh Stage II pressure ulcer (Chronic) Pressure ulcer of right buttock, stage 3 (Chronic) Diabetic neuropathy, type II diabetes mellitus (Chronic) chronic osteomyelitis left ischial area (Chronic) Pressure sore of left ischium, stage 4 (Chronic) Spinal stenosis (Chronic) Assessment: This is a 67-year-old female with bilateral ischial pressure ulcerations. She also has an ulceration of the left buttock/posterior upper thigh. The patient has chosen to forego aggressive surgical management in the past, choosing rather to pursue more conservative treatment modalities. She is currently on a complex care regimen. Offloading measures are to be continued. We are to continue the use of Aquacel Silver topically to each of the ischial pressure ulcerations. Collagenase Santyl will be continued relative to the left upper posterior thigh ulceration. Optimization of her diabetes mellitus has been recommended. Optimizing nutrition has also been reinforced. The patient does not wish to consider a more aggressive approach which would involve surgical options. She has rebuffed the idea of consultation with a plastic surgeon. Recent CT scan of the pelvis, performed 08/05/2017, reveals no evidence of osteomyelitis. She is eager for the return of her primary wound healing center physician, Dr. Bull, who is currently on maternity leave. Plan: As above. Will return in 2 weeks for reassessment. Optimizing nutrition and diabetes control has been recommended. Offloading measures and frequent repositioning are to continue. She had a suprapubic catheter placed on . At the time that it was to be replaced, her urologist was unable to replace the suprapubic catheter, and the patient is scheduled for surgical replacement in the near future. She is currently without a suprapubic catheter. Patient has been encouraged to increase protein intake to aid in wound healing and maintain good control of diabetes. Discussed offloading importance in wound healing. We are to continue Aquacel silver for the ischial pressure ulcerations, and collagenase Santyl topically on the left posterior upper thigh ulceration. F/U in 2 weeks. Influenza vaccine was not administered today. The patient is not a smoker. Patient weighs 166 pounds. She stands 5 feet 2 inches tall. BMI is 30.4. This places the patient in a class I category. Weight loss has been recommended, to be discussed by the patient with her primary care physician.
[2017-09-07 13:51] VITALS: BP 121/71; PULSE 110; RESP 18; TEMP 36.9
--- NOTE | 2017-09-08 10:40 | PN_ITS ---
DATE OF SERVICE: 09/07/2017 This is a 67-year-old female with multiple medical problems, as previously documented. She is under the care of the wound healing center due to pressure ulcerations of the ischium bilaterally. In addition, the patient has an ulceration on the left upper posterior thigh. The size and appearance of the ulcerations is documented elsewhere. The ischial ulcerations are generally unchanged in appearance. The left posterior thigh ulceration is much deeper than previously noted, with extension into the deeper subcutaneous tissues. Today, we are using Aquacel topically on the ischial ulcerations, and collagenase Santyl topically with respect to the left posterior thigh ulceration. Debridements have been performed in 2 locations. The right ischial ulceration was debrided in standard fashion. An excisional debridement was performed. Debridement was also performed relative to the left upper posterior thigh ulceration. In each case, an excisional debridement was performed, through all layers of the dermis and into the subcutaneous tissues. A sterile 5 mm curette was used. Prior to debridement, 4% lidocaine gel was administered for analgesia purposes. A moderate amount of bleeding was encountered at each site, which was easily controlled with manual pressure. The debridement at each site was well tolerated. The left posterior thigh ulceration appears to be much worse than previously noted. It is deeper. Concern exists as to the effect of pressure and sitting for prolonged periods of time. The patient denies that this is occurring. She has once again been advised to offload pressure to this area, by decreasing the amount of time spent sitting on her buttocks. The patient is to return next week for reestablishment of her affiliation with her regular wound healing center physician, Dr. Bull. It is known that the patient is scheduled for replacement of her suprapubic urinary catheter next week. She is to use Aquacel for each of the ulcerations in the ileal and upper thigh areas. Influenza vaccine was not administered today. The patient is not a smoker. The patient weighs 166 pounds. She stands 5 feet 2 inches tall. BMI is 30.4, placing the patient in a category 1 for weight. Weight loss has been recommended, in collaboration with her primary care physician has been advised. Finally, given the multiple wounds, the patient has been strongly encouraged to take a well-balanced nutritious diet. Supplementation with a supplement such as Sigifredo has been recommended. Optimization of the patient's diabetes has also been recommended. Joaquín Lind MD T: NTS JOB: [id number]
== END 2017-09-17 23:59 ==
LOC: WC 13:30
PROVIDERS: Family Provider Family Medicine; PCP Family Medicine; Visit Provider Surgery
DX: E11.622 Type 2 diabetes mellitus with other skin ulcer (principal); L89.224 Pressure ulcer of left hip, stage 4; L89.213 Pressure ulcer of right hip, stage 3; N31.9 Neuromuscular dysfunction of bladder, unspecified; L89.92 Pressure ulcer of unspecified site, stage 2; I10 Essential (primary) hypertension; E11.40 Type 2 diabetes mellitus with diabetic neuropathy, unspecified; M19.90 Unspecified osteoarthritis, unspecified site; Z93.3 Colostomy status; D63.8 Anemia in other chronic diseases classified elsewhere; E78.5 Hyperlipidemia, unspecified; Z79.899 Other long term (current) drug therapy; Z79.84 Long term (current) use of oral hypoglycemic drugs; M86.652 Other chronic osteomyelitis, left thigh
CPT/HCPCS: 11042

== ENCOUNTER 2017-09-16 10:40 | Day surgery (SDC) | payer MEDICAID, SELFPAY ==
[2017-09-16 11:05] VITALS: BP 120/71; PULSE 100; RESP 16; TEMP 36.1; O2SAT 100; BMI 29.9
[2017-09-16 11:36] LABS: Bedside Glucose 126 mg/dL (70-110)
[2017-09-16] MEDS: Cefazolin 2 GM in 0.9% Normal Saline 100 ML IV (12:30)
[2017-09-16] MEDS: Lidocaine Jelly 2% 20 ML Syringe (URO-JET) 20 APPLIC (12:50)
--- NOTE | 2017-09-16 13:00 | PCM.DC.URO ---
Discharge Diet: Light diet - advance as tolerated Call your doctor if your incision/area has: Sudden Increased Bleeding Suture Line Care: Avoid Pulling/Pushing, Avoid Pinching/Bending Instructions: Discharge Instructions: Caring for Your Suprapubic Catheter Allergies/Adverse Reactions: Allergies No Known Allergies Allergy (Verified 09/09/17 11:50) Medications to take at Discharge Allopurinol [Zyloprim] 100 mg PO BID 07/05/14 Latanoprost 0.005% [Xalatan Opthalmic] 1 drop EACH EYE QHS 07/05/14 Losartan Potassium [Cozaar] 25 mg PO DAILY 07/05/14 Metformin HCl [Glucophage] 1,000 mg PO BIDCM 07/05/14 Multivitamins,Therapeutic [Multivitamin] 1 tablet PO DAILY 07/05/14 Simvastatin [Zocor] 10 mg PO QHS 07/05/14 Timolol Maleate [Timoptic-XE 0.5%] 1 drop EACH EYE DAILY 07/05/14 Acetaminophen [Tylenol Tablet] 650 mg PO Q6H PRN PRN #0 tablet 07/11/14 Furosemide [Lasix] 20 mg PO DAILY 06/29/15 Potassium Chloride [K-Dur] 20 meq PO DAILY 06/29/15 Saxagliptin HCl [Onglyza] 5 mg PO DAILY 07/01/17 Solifenacin Succinate [Vesicare] 10 mg PO DAILY 07/01/17 Ascorbic Acid [Vitamin C] 500 mg PO DAILY@0800 09/09/17 Primary Care Physician: Jones Esquivel MD [Primary Care Provider] - Please Follow Up With: Derrick Silva MD When: call for a follow up appt in two months.
--- NOTE | 2017-09-16 13:02 | PCM.OPRPT ---
Report of Operation Date of Procedure: 09/16/17 Pre-Operative Diagnosis: Neurogenic bladder Post-Operative Diagnosis: same Surgery/Procedure Performed:: Insertion of suprapubic tube Description of Surgical Findings:: 67-year-old female who had a suprapubic tube placed before however difficult tube change in the tube track was lost so she went back to her chronic catheter she has leak urine a lot has chronic bedsores and she is requesting a suprapubic catheter again she understands the risks of the suprapubic catheter is bleeding infection risk of perforation or damage to any critical critical structures during placement of catheter understand that the catheter may follow up the tract may close up infection and bleeding. 59-year-old female taken back to the operating room at the smooth induction of MAC local she was placed supine on the table in dorsal lithotomy position she is in fairly fit frail condition very cachectic skinny legs she had dressings on both the decubitus ulcers posteriorly the urethra is very patulous and remove the catheter went into the bladder the bladder would not even to stand with a catheter because of the water is flowing around the scope, I do blood pressure up on the catheter to distend the bladder made a small incision in the mid abdomen above the suprapubic used a spinal needle to to investigate the track and then found a nice track into the dome of the bladder then advanced the suprapubic catheter trocar from the skin to the dome of the bladder left the remove the trocar left the sheath and placed into the sheath to place a 16 English catheter 10 cc in the balloon I then sutured the catheter to the skin remove the regular catheter flushed it flushed easily with very little bleeding and then dressings were placed on the suprapubic catheter patient anesthetic reversed plan to see her back in 2 months to change catheter. Type of Anesthesia:: Local MAC Drains: 16 fr SP tube. - Admit VTE Documentation VTE Present on Admission: No VTE Mechan Device Prophylaxis: SCD's VTE Pharm Prophylaxis ordered?: No Reason prophylaxis not ordered:: Treatment Not Indicated
[2017-09-16 13:10] VITALS: BP 107/64; BP 120/71; PULSE 97; RESP 16; TEMP 36.6; O2SAT 93
[2017-09-16 13:15] VITALS: BP 103/67; BP 120/71; PULSE 96; RESP 18; O2SAT 95
[2017-09-16 13:20] VITALS: BP 108/70; BP 120/71; PULSE 91; RESP 18; O2SAT 95
[2017-09-16 13:25] VITALS: BP 105/66; BP 120/71; PULSE 92; RESP 16; TEMP 36.5; O2SAT 97
[2017-09-16 14:15] VITALS: BP 120/71
== END 2017-09-16 14:25 | disposition home or self-care (01) ==
LOC: SDC 10:40 → AC 10:41
PROVIDERS: Family Provider Family Medicine; PCP Family Medicine; Visit Provider Urology
PROC: 0T9B40Z Drainage of Bladder with Drainage Device, Percutaneous Endoscopic Approach (ICD-10-PCS; CPT 52005; principal; 2017-09-16 11:45)
DX: N31.2 Flaccid neuropathic bladder, not elsewhere classified (principal); I10 Essential (primary) hypertension; E11.9 Type 2 diabetes mellitus without complications; G83.9 Paralytic syndrome, unspecified
CPT/HCPCS: 00910; 51702; 82962; J7120; J2405

== ENCOUNTER 2017-10-16 13:00 | Outpatient (RCR) | payer MEDICAID, SELFPAY ==
[2017-09-18 00:29] VITALS: BP 121/71; PULSE 110; RESP 18; TEMP 36.9
[2017-09-18 14:16] VITALS: BP 107/53; PULSE 102; RESP 20; TEMP 36.1
--- NOTE | 2017-09-18 18:48 | PN.PCM_ITS ---
(1) Neurogenic bladder Status: Chronic Current Visit: Yes Code(s): N31.9 - Neuromuscular dysfunction of bladder, unspecified (2) Diabetes mellitus type 2 in nonobese Status: Chronic Current Visit: Yes Code(s): E11.9 - Type 2 diabetes mellitus without complications (3) Pressure ulcer of left buttock, stage 3 Status: Resolved Current Visit: Yes Code(s): L89.323 - Pressure ulcer of left buttock, stage 3 (4) Pressure ulcer of right buttock, stage 3 Status: Chronic Current Visit: Yes Code(s): L89.313 - Pressure ulcer of right buttock, stage 3 (5) Malnutrition Status: Chronic Current Visit: Yes Qualifiers: Malnutrition type: protein-calorie malnutrition Protein-calorie malnutrition severity: moderate Qualified Code(s): E44.0 - Moderate protein- calorie malnutrition Code(s): E46 - Unspecified protein-calorie malnutrition (6) Pressure sore of left ischium, stage 4 Status: Chronic Current Visit: Yes Code(s): L89.324 - Pressure ulcer of left buttock, stage 4 (7) Spinal stenosis Status: Chronic Current Visit: Yes Qualifiers: Spinal region: lumbar Neurogenic claudication status: with neurogenic claudication Qualified Code(s): M48.062 - Spinal stenosis, lumbar region with neurogenic claudication Code(s): M48.00 - Spinal stenosis, site unspecified Type of Wound Date of Service: 09/18/17 Chief Complaint: Left ischial pressure ulcer, Stage IV. Right ischial pressure ulcer, stage III. Spinal stenosis. Ulceration of left buttock. History of Wound: Patient is a 67-year-old female who has a chronic pressure ulcer of her left ischium and right ischium. Patient was initially hospitalized for a swelling and redness of her right leg approximately 2014. This was evaluated for cellulitis. She was seen in consultation by infectious disease and plastic surgery. The patient was taken to surgery for an operative debridement of her chronic left ischial ulcer, underwent wound vac treatment and IV antibiotics. She was abruptly released from the [facility] after only a few weeks, before end of therapy. She had finished her IV antibiotics for Grp A strep osteomyelitis at home and continued with PT at home as well. She has decided to go with the conservative care route since she feels that her quality of life is more important than healing out the wound but had continued to keep the wound vac. The wound vac was discontinued by her insurance for failure to show improvement in the size of her wound. She has been seen twice monthly for conservative/palliative/complex care of her bilateral ischial pressure ulcers. She lives with her brother and [id number], who help dress her ulcers/wounds. She has recently developed a skin tear/abrasion of the left buttock/upper posterior thigh. Current management involves the use of collagenase Santyl topically to the skin tear on the left posterior upper thigh, and Aquacel with respect to the ischial pressure ulcerations. The patient has recently completed courses of antibiotics which have included Augmentin and clindamycin. In January 2017, she underwent treatment after developing pressure ulcers which occurred from urinary incontinence issues associated with a chronic UTI and leakage of her catheter. She developed another pressure ulcer of her right buttock on or around April 20, 2017, and presented for treatment of this area as well as continued treatment of her left ischial pressure ulcer. Denies fever , chills or increased pain. The patient indicates that she sleeps on an air loss mattress, and possesses a Roho cushion for her wheelchair. She has previously been counseled as to the importance of offloading measures. She also has been taking Sigifredo protein shakes, and is aware that optimizing glycemic control is advisable. Review of recent laboratory studies reveals a protein of 8.6, albumin 3.2, and hemoglobin A1c of 6.9, on June 03, 2017. Patient is essentially nonambulatory, and uses a walker for transition from bed to chair. She is severely deconditioned. Progress of Wound: Patient continues with conservative care management of left ischium - aquacel dressing to wound daily. No concerns for infection in this pressure ulcer at this time. The pressure ulcer of her right gluteal fold is about the same this week but tissue and wound bed still look healthy. The skin tear of left thigh has become a stage III pressure ulcer. She continues to sit in her wheelchair frequently for long periods of time but has tried to offload more. - Physical Exam Vital Signs Temp Pulse Resp BP 97 F L 102 H 20 H 107/53 L 09/18/17 14:16 09/18/17 14:16 09/18/17 14:16 09/18/17 14:16 General: Alert, Oriented x3, Cooperative, No apparent distress HEENT: Atraumatic, Normocephalic Oral: Moist Mucosa Abdomen: Obese Skin: Ulcer/ Wound Wound Measurements and Assessment WC - Nurse 1 - General Ulcer Measurement Start: 09/18/17 14:16 Freq: Status: Active Protocol: Activity Type Activity Date Activity User E-Sign Co-Sign Detail Recorded Client Recorded Date Recorded By Document 09/18/17 14:16 DL [id number] 09/18/17 14:26 DL 09/18/17 14:16 Wound Center Nurse 1 [Ulcer Assessment] #11 left upper thigh -Current Size (cm) - Length 3.3 -Current Size (cm) - Width 3 -Current Size (cm) - Depth 2 -Total Square Cm 9.9 -Photo Taken No -Exudate Amt Medium (34-66%) -Exudate Type Serosanguineous -Wound Margin Distinct, Outline Attached -Granulation Amt Medium (34-66%) -Granulation Quality [place] Red -Necrosis Amt Medium (34-66%) -Necrotic Tissue Type Adherent Slough -Structure Exposed N/A -Texture (Amirah-wound Skin Appearance) Scarring -Moisture (Amirah-wound Skin Appearance No Abnormality ) -Color (Amirah-wound Skin Appearance) No Abnormality -Temperature (Amirah-wound Skin No Abnormality Appearance) (Pt Warm) -Ulcer Cleansing Wound Cleanser -Foul Odor after Cleansing No -Anesthetic Used 4% Lidocaine Solution #7- Stage III pressure ulcer RT GLUTEAL FOLD -Current Size (cm) - Length 3.6 -Current Size (cm) - Width 2.8 -Current Size (cm) - Depth 3.8 -Total Square Cm 10.08 -Photo Taken No -Exudate Type Serosanguineous -Wound Margin Distinct, Outline Attached -Granulation Amt Large (67-100%) -Granulation Quality Red -Necrosis Amt Small (1-33%) -Necrotic Tissue Type Adherent Slough -Structure Exposed N/A -Texture (Amirah-wound Skin Appearance) Scarring -Moisture (Amirah-wound Skin Appearance No Abnormality ) -Color (Amirah-wound Skin Appearance) No Abnormality -Temperature (Amirah-wound Skin No Abnormality Appearance) (Pt Warm) -Tenderness on Palpation (Amirah-wound No Skin Appearance) -Ulcer Cleansing Wound Cleanser -Foul Odor after Cleansing No -Anesthetic Used 4% Lidocaine Solution #10 L buttocks stage IV -Current Size (cm) - Length 0.5 -Current Size (cm) - Width 0.5 -Current Size (cm) - Depth 0.6 -Total Square Cm 0.25 -Photo Taken No -Exudate Amt Small (1-33%) -Exudate Type Serosanguineous -Wound Margin Thickened -Granulation Amt Small (1-33%) -Granulation Quality [place] -Necrosis Amt Small (1-33%) -Necrotic Tissue Type Adherent Slough -Texture (Amirah-wound Skin Appearance) Scarring -Moisture (Amirah-wound Skin Appearance Maceration ) -Color (Amirah-wound Skin Appearance) No Abnormality -Temperature (Amirah-wound Skin No Abnormality Appearance) (Pt Warm) -Ulcer Cleansing Wound Cleanser -Foul Odor after Cleansing No -Anesthetic Used 4% Lidocaine Solution WC - Nurse 2 - General Ulcer CM Notes Start: 09/18/17 14:16 Freq: Status: Active Protocol: Activity Type Activity Date Activity User E-Sign Co-Sign Detail Recorded Client Recorded Date Recorded By Document 09/18/17 14:51 [id number] 09/18/17 15:14 09/18/17 14:51 Wound Center Nurse 2 [Procedure/Treatment] #11 left upper thigh -Time 15:05 -Correct Patient Yes -Correct Side, Site, Position Yes -Correct Procedure Yes -Procedure Performed Yes -Type of Procedure Debridement -Clinical Debridement Subcutaneous -Post Debridement Size (cm) - Length 3.5 -Post Debridement Size (cm) - Width 3.7 -Post Debridement Size (cm) - Depth 2.1 -Total Square Cm 12.95 -Wound/Ulcer Outcome Not Healed -Ulcer Cleansing Rinsed/ Irrigated with Saline #7- Stage III pressure ulcer RT GLUTEAL FOLD -Time 15:05 -Correct Patient Yes -Correct Side, Site, Position Yes -Correct Procedure Yes -Procedure Performed Yes -Type of Procedure Debridement -Clinical Debridement Subcutaneous -Post Debridement Size (cm) - Length 3.5 -Post Debridement Size (cm) - Width 3.2 -Post Debridement Size (cm) - Depth 2.7 -Total Square Cm 11.20 -Wound/Ulcer Outcome Not Healed -Ulcer Cleansing Rinsed/ Irrigated with Saline -Foul Odor after Cleansing No -Bioengineered Tissue No -Bleeding Controlled with NA -Treatment Response Procedure Tolerated Well #10 L buttocks stage IV -Time 15:05 -Correct Patient Yes -Correct Side, Site, Position Yes -Correct Procedure Yes -Procedure Performed Yes -Type of Procedure Debridement -Clinical Debridement Subcutaneous -Post Debridement Size (cm) - Length 0.3 -Post Debridement Size (cm) - Width 0.2 -Post Debridement Size (cm) - Depth 0.5 -Total Square Cm 0.06 -Wound/Ulcer Outcome Not Healed -Ulcer Cleansing Rinsed/ Irrigated with Saline -Foul Odor after Cleansing No -Bioengineered Tissue No -Bleeding Controlled with NA -Treatment Response Procedure Tolerated Well [See Physician Procedure note for Specifics] Pain Scale: 0-10 Numeric [Pain] -Is Patient Pain Free? Yes Psych/Mental Status: Normal Affect, Appropriate Debridement Note Post-Debridement Measurements/Treatment WC - Nurse 2 - General Ulcer CM Notes Start: 09/18/17 14:16 Freq: Status: Active Protocol: Activity Type Activity Date Activity User E-Sign Co-Sign Detail Recorded Client Recorded Date Recorded By Document 09/18/17 14:51 [id number] 09/18/17 15:14 ANKUR 09/18/17 14:51 Wound Center Nurse 2 #11 left upper thigh -Time 15:05 -Correct Patient Yes -Correct Side, Site, Position Yes -Correct Procedure Yes -Procedure Performed Yes -Type of Procedure Debridement -Clinical Debridement Subcutaneous -Post Debridement Size (cm) - Length 3.5 -Post Debridement Size (cm) - Width 3.7 -Post Debridement Size (cm) - Depth 2.1 -Total Square Cm 12.95 -Wound/Ulcer Outcome Not Healed -Ulcer Cleansing Rinsed/ Irrigated with Saline #7- Stage III pressure ulcer RT GLUTEAL FOLD -Time 15:05 -Correct Patient Yes -Correct Side, Site, Position Yes -Correct Procedure Yes -Procedure Performed Yes -Type of Procedure Debridement -Clinical Debridement Subcutaneous -Post Debridement Size (cm) - Length 3.5 -Post Debridement Size (cm) - Width 3.2 -Post Debridement Size (cm) - Depth 2.7 -Total Square Cm 11.20 -Wound/Ulcer Outcome Not Healed -Ulcer Cleansing Rinsed/ Irrigated with Saline -Foul Odor after Cleansing No -Bioengineered Tissue No -Bleeding Controlled with NA -Treatment Response Procedure Tolerated Well #10 L buttocks stage IV -Time 15:05 -Correct Patient Yes -Correct Side, Site, Position Yes -Correct Procedure Yes -Procedure Performed Yes -Type of Procedure Debridement -Clinical Debridement Subcutaneous -Post Debridement Size (cm) - Length 0.3 -Post Debridement Size (cm) - Width 0.2 -Post Debridement Size (cm) - Depth 0.5 -Total Square Cm 0.06 -Wound/Ulcer Outcome Not Healed -Ulcer Cleansing Rinsed/ Irrigated with Saline -Foul Odor after Cleansing No -Bioengineered Tissue No -Bleeding Controlled with NA -Treatment Response Procedure Tolerated Well Pain Scale: 0-10 Numeric Is Patient Pain Free? Yes Wound debrided: left upper thigh/buttock Laterality: Left Wound Grade/Stage: Stage III Type of Debridement: Excisional debridement Anesthesia Used: 4% Lidocaine Solution Depth: Down to and including healthy tissue, in the subcutaneous layer Percentage of wound debrided: 100 Instrument Used: 7mm curette Tissue Removed: yellow slough and devitalized tissue Severity: Fat Layer Exposed Amount of bleeding with debridement: Mild Bleeding Controlled with: Compression and gauze Patient tolerated procedure well - Additional Wound Wound debrided: right gluteal fold Laterality: Right Wound Grade/Stage: Stage III Type of Debridement: Excisional debridement Anesthesia Used: 4% Lidocaine Solution Depth: Down to and including healthy tissue, in the subcutaneous layer Percentage of wound debrided: 100 Instrument Used: 7mm curette Tissue Removed: yellow slough and devitalized tissue Severity: Fat Layer Exposed Amount of bleeding with debridement: Mild Bleeding Controlled with: Compression and gauze Patient tolerated procedure: Patient tolerated procedure well - Additional Wound Wound debrided: left buttock stage IV Laterality: Left Wound Grade/Stage: Stage IV Type of Debridement: Excisional debridement Anesthesia Used: 4% Lidocaine Solution Depth: Down to and including healthy tissue, in the subcutaneous layer Percentage of wound debrided: 100 Instrument Used: 3mm curette Tissue Removed: yellow slough and devitalized tissue Severity: Fat Layer Exposed Amount of bleeding with debridement: Mild Bleeding Controlled with: Compression and gauze Patient tolerated procedure: Patient tolerated procedure well Assessment/Plan Active Problems Open wound of left thigh (Chronic) traumatic skin tear posterior thigh Neurogenic bladder (Chronic) Diabetes mellitus type 2 in nonobese (Chronic) Pressure ulcer of right buttock, stage 3 (Chronic) Malnutrition (Chronic) Pressure sore of left ischium, stage 4 (Chronic) Spinal stenosis (Chronic) Assessment: This is a 67-year-old female with bilateral ischial pressure ulcerations. She also has an ulceration of the left buttock/posterior upper thigh. The patient has chosen to forego aggressive surgical management in the past, choosing rather to pursue more conservative treatment modalities. She is currently on a complex care regimen. Offloading measures are to be continued. We are to continue the use of Aquacel Extra topically to each of the ischial pressure ulcerations. Optimization of her diabetes mellitus has been recommended. Optimizing nutrition has also been reinforced. The patient does not wish to consider a more aggressive approach which would involve surgical options. She has rebuffed the idea of consultation with a plastic surgeon. Recent CT scan of the pelvis, performed 08/05/2017, reveals no evidence of osteomyelitis. Plan: Evaluation and debridement completed as above. No signs of infection currently. Mild improvement in measurements of wounds. Will return in 2 weeks for reassessment. Optimizing nutrition and diabetes control has been recommended. Offloading measures and frequent repositioning are to continue. Suprapubic catheter has been replaced and is so far going well. Patient has been encouraged to increase protein intake to aid in wound healing and maintain good control of diabetes. Discussed offloading importance in wound healing. We are to continue Aquacel for all the ischial/buttock pressure ulcerations. F/ U in 2 weeks.
[2017-10-02 12:53] VITALS: BP 125/75; PULSE 111; RESP 16; TEMP 36.6
--- NOTE | 2017-10-02 21:43 | PN.PCM_ITS ---
(1) Neurogenic bladder Status: Chronic Current Visit: Yes Code(s): N31.9 - Neuromuscular dysfunction of bladder, unspecified (2) Diabetes mellitus type 2 in nonobese Status: Chronic Current Visit: Yes Code(s): E11.9 - Type 2 diabetes mellitus without complications (3) Pressure ulcer of left buttock, stage 3 Status: Resolved Current Visit: Yes Code(s): L89.323 - Pressure ulcer of left buttock, stage 3 (4) Pressure ulcer of right buttock, stage 3 Status: Chronic Current Visit: Yes Code(s): L89.313 - Pressure ulcer of right buttock, stage 3 (5) Malnutrition Status: Chronic Current Visit: Yes Qualifiers: Malnutrition type: protein-calorie malnutrition Protein-calorie malnutrition severity: moderate Qualified Code(s): E44.0 - Moderate protein- calorie malnutrition Code(s): E46 - Unspecified protein-calorie malnutrition (6) Pressure sore of left ischium, stage 4 Status: Chronic Current Visit: Yes Code(s): L89.324 - Pressure ulcer of left buttock, stage 4 (7) Spinal stenosis Status: Chronic Current Visit: Yes Qualifiers: Spinal region: lumbar Neurogenic claudication status: with neurogenic claudication Qualified Code(s): M48.062 - Spinal stenosis, lumbar region with neurogenic claudication Code(s): M48.00 - Spinal stenosis, site unspecified Type of Wound Date of Service: 10/02/17 Chief Complaint: Left ischial pressure ulcer, Stage IV. Right ischial pressure ulcer, stage III. Spinal stenosis. Ulceration of left buttock. History of Wound: Patient is a 67-year-old female who has a chronic pressure ulcer of her left ischium and right ischium. Patient was initially hospitalized for a swelling and redness of her right leg approximately 2014. This was evaluated for cellulitis. She was seen in consultation by infectious disease and plastic surgery. The patient was taken to surgery for an operative debridement of her chronic left ischial ulcer, underwent wound vac treatment and IV antibiotics. She was abruptly released from the [facility] after only a few weeks, before end of therapy. She had finished her IV antibiotics for Grp A strep osteomyelitis at home and continued with PT at home as well. She has decided to go with the conservative care route since she feels that her quality of life is more important than healing out the wound but had continued to keep the wound vac. The wound vac was discontinued by her insurance for failure to show improvement in the size of her wound. She has been seen twice monthly for conservative/palliative/complex care of her bilateral ischial pressure ulcers. She lives with her brother and [id number], who help dress her ulcers/wounds. She has recently developed a skin tear/abrasion of the left buttock/upper posterior thigh. Current management involves the use of collagenase Santyl topically to the skin tear on the left posterior upper thigh, and Aquacel with respect to the ischial pressure ulcerations. The patient has recently completed courses of antibiotics which have included Augmentin and clindamycin. In January 2017, she underwent treatment after developing pressure ulcers which occurred from urinary incontinence issues associated with a chronic UTI and leakage of her catheter. She developed another pressure ulcer of her right buttock on or around April 20, 2017, and presented for treatment of this area as well as continued treatment of her left ischial pressure ulcer. Denies fever , chills or increased pain. The patient indicates that she sleeps on an air loss mattress, and possesses a Roho cushion for her wheelchair. She has previously been counseled as to the importance of offloading measures. She also has been taking Sigifredo protein shakes, and is aware that optimizing glycemic control is advisable. Review of recent laboratory studies reveals a protein of 8.6, albumin 3.2, and hemoglobin A1c of 6.9, on June 03, 2017. Patient is essentially nonambulatory, and uses a walker for transition from bed to chair. She is severely deconditioned. Progress of Wound: Patient continues with conservative care management of left ischium - aquacel dressing to wound daily. No concerns for infection in this pressure ulcer at this time. The pressure ulcer of her right gluteal fold is about the same this week but tissue and wound bed still look healthy. The left thigh has improved somewhat. She has had more problems with incontnence of urine recently. She was started on Myrbetriq but has not noticed any improvement. This has made her wounds more moist. There is an increase in drainage and a mid odor. She continues to sit in her wheelchair frequently for long periods of time but has tried to offload more. - Physical Exam Vital Signs Temp Pulse Resp BP 98 F 111 H 16 125/75 H 10/02/17 12:53 10/02/17 12:53 10/02/17 12:53 10/02/17 12:53 General: Alert, Oriented x3, Cooperative, No apparent distress HEENT: Atraumatic, Normocephalic Oral: Moist Mucosa Abdomen: Obese Skin: Ulcer/ Wound Wound Measurements and Assessment WC - Nurse 1 - General Ulcer Measurement Start: 09/18/17 14:16 Freq: Status: Active Protocol: Activity Type Activity Date Activity User E-Sign Co-Sign Detail Recorded Client Recorded Date Recorded By Document 10/02/17 12:53 [facility] [id number] 10/02/17 13:10 [facility] 10/02/17 12:53 Wound Center Nurse 1 [Ulcer Assessment] #11 left upper thigh -Combined with other wound No -Current Size (cm) - Length 2.5 -Current Size (cm) - Width 2.0 -Current Size (cm) - Depth 0.7 -Total Square Cm 5.00 -Date of Last Picture (Recall this 10/02/17 field) -Photo Taken Yes -Epithelialization None Present -Tunneling No -Undermining/Tunneling No -Circular Undermining No -Exudate Amt Medium (34-66%) -Exudate Type Serosanguineous -Wound Margin Distinct, Outline Attached -Granulation Amt Large (67-100%) -Granulation Quality Ursa -Slough/Fibrin Yes -Necrosis Amt Small (1-33%) -Necrotic Tissue Type Adherent Slough -Texture (Amirah-wound Skin Appearance) Scarring -Moisture (Amirah-wound Skin Appearance Maceration ) -Color (Amirah-wound Skin Appearance) Mottled -Temperature (Amirah-wound Skin No Abnormality Appearance) (Pt Warm) -Tenderness on Palpation (Amirah-wound No Skin Appearance) -Ulcer Cleansing Wound Cleanser -Foul Odor after Cleansing No -Anesthetic Used 4% Lidocaine Solution #7- RT GLUTEAL FOLD Stage III -Combined with other wound No -Current Size (cm) - Length 4.1 -Current Size (cm) - Width 3 -Current Size (cm) - Depth 2.2 -Total Square Cm 12.3 -Date of Last Picture (Recall this 10/02/17 field) -Photo Taken Yes -Undermining/Tunneling Yes -Undermining/Tunneling Starts (O' 10 clock) -Undermining/Tunneling Ends (O'clock) 1 -Maximum Distance (cm) 1.4 -Exudate Amt Medium (34-66%) -Exudate Type Serosanguineous -Wound Margin Distinct, Outline Attached -Granulation Amt Large (67-100%) -Granulation Quality Ursa -Slough/Fibrin Yes -Necrosis Amt Small (1-33%) -Necrotic Tissue Type Adherent Slough -Texture (Amirah-wound Skin Appearance) Scarring -Moisture (Amirah-wound Skin Appearance Maceration ) -Color (Amirah-wound Skin Appearance) Erythema -Temperature (Amirah-wound Skin No Abnormality Appearance) (Pt Warm) -Tenderness on Palpation (Amirah-wound No Skin Appearance) -Ulcer Cleansing Wound Cleanser -Foul Odor after Cleansing No -Anesthetic Used 4% Lidocaine Solution #10 L buttocks stage IV -Combined with other wound No -Current Size (cm) - Length 0.1 -Current Size (cm) - Width 0.5 -Current Size (cm) - Depth 1.1 -Total Square Cm 0.05 -Date of Last Picture (Recall this 10/02/17 field) -Photo Taken Yes -Epithelialization None Present -Tunneling No -Undermining/Tunneling No -Circular Undermining No -Exudate Amt Small (1-33%) -Exudate Type Serosanguineous -Wound Margin Distinct, Outline Attached -Granulation Amt Large (67-100%) -Granulation Quality Ursa -Slough/Fibrin No -Necrosis Amt None Present (0 %) -Texture (Amirah-wound Skin Appearance) Callus -Moisture (Amirah-wound Skin Appearance Maceration ) -Color (Amirah-wound Skin Appearance) Palor -Temperature (Amirah-wound Skin No Abnormality Appearance) (Pt Warm) -Tenderness on Palpation (Amirah-wound No Skin Appearance) -Ulcer Cleansing Wound Cleanser -Foul Odor after Cleansing No -Anesthetic Used 4% Lidocaine Solution WC - Nurse 2 - General Ulcer CM Notes Start: 09/18/17 14:16 Freq: Status: Active Protocol: Activity Type Activity Date Activity User E-Sign Co-Sign Detail Recorded Client Recorded Date Recorded By Document 10/02/17 14:05 DV [id number] 10/02/17 14:11 DV 10/02/17 14:05 Wound Center Nurse 2 [Procedure/Treatment] #11 left upper thigh -Time 14:10 -Correct Patient Yes -Correct Side, Site, Position Yes -Correct Procedure Yes -Procedure Performed Yes -Type of Procedure Debridement -Clinical Debridement Subcutaneous -Post Debridement Size (cm) - Length 4.1 -Post Debridement Size (cm) - Width 3.0 -Post Debridement Size (cm) - Depth 2.4 -Total Square Cm 12.30 -Wound/Ulcer Outcome Not Healed -Ulcer Cleansing Rinsed/ Irrigated with Saline -Foul Odor after Cleansing No -Bioengineered Tissue No -Bleeding Controlled with Pressure -Treatment Response Procedure Tolerated Well #7- RT GLUTEAL FOLD Stage III -Time 14:05 -Correct Patient Yes -Correct Side, Site, Position Yes -Correct Procedure Yes -Procedure Performed Yes -Type of Procedure Debridement -Clinical Debridement Subcutaneous -Post Debridement Size (cm) - Length 3.7 -Post Debridement Size (cm) - Width 4.0 -Post Debridement Size (cm) - Depth 3.4 -Total Square Cm 14.80 -Wound/Ulcer Outcome Not Healed -Ulcer Cleansing Rinsed/ Irrigated with Saline -Foul Odor after Cleansing No -Bioengineered Tissue No -Bleeding Controlled with Pressure -Treatment Response Procedure Tolerated Well #10 L buttocks stage IV -Time 14:09 -Correct Patient Yes -Correct Side, Site, Position Yes -Correct Procedure Yes -Procedure Performed Yes -Type of Procedure Debridement -Clinical Debridement Subcutaneous -Post Debridement Size (cm) - Length 0.3 -Post Debridement Size (cm) - Width 0.3 -Post Debridement Size (cm) - Depth 0.4 -Total Square Cm 0.09 -Wound/Ulcer Outcome Not Healed -Ulcer Cleansing Rinsed/ Irrigated with Saline -Foul Odor after Cleansing No -Bioengineered Tissue No -Bleeding Controlled with Pressure -Treatment Response Procedure Tolerated Well [See Physician Procedure note for Specifics] Pain Scale: 0-10 Numeric [Pain] -Is Patient Pain Free? Yes Psych/Mental Status: Normal Affect, Appropriate Debridement Note Post-Debridement Measurements/Treatment WC - Nurse 2 - General Ulcer CM Notes Start: 09/18/17 14:16 Freq: Status: Active Protocol: Activity Type Activity Date Activity User E-Sign Co-Sign Detail Recorded Client Recorded Date Recorded By Document 09/18/17 14:51 JS [id number] 09/18/17 15:14 JS Document 10/02/17 14:05 DV [id number] 10/02/17 14:11 DV 09/18/17 10/02/17 14:51 14:05 Wound Center Nurse 2 #11 left upper thigh -Time 15:05 14:10 -Correct Patient Yes Yes -Correct Side, Site, Position Yes Yes -Correct Procedure Yes Yes -Procedure Performed Yes Yes -Type of Procedure Debridement Debridement -Clinical Debridement Subcutaneous Subcutaneous -Post Debridement Size (cm) - Length 3.5 4.1 -Post Debridement Size (cm) - Width 3.7 3.0 -Post Debridement Size (cm) - Depth 2.1 2.4 -Total Square Cm 12.95 12.30 -Wound/Ulcer Outcome Not Healed Not Healed -Ulcer Cleansing Rinsed/ Rinsed/ Irrigated with Irrigated with Saline Saline -Foul Odor after Cleansing No -Bioengineered Tissue No -Bleeding Controlled with Pressure -Treatment Response Procedure Tolerated Well #7- RT GLUTEAL FOLD Stage III -Time 15:05 14:05 -Correct Patient Yes Yes -Correct Side, Site, Position Yes Yes -Correct Procedure Yes Yes -Procedure Performed Yes Yes -Type of Procedure Debridement Debridement -Clinical Debridement Subcutaneous Subcutaneous -Post Debridement Size (cm) - Length 3.5 3.7 -Post Debridement Size (cm) - Width 3.2 4.0 -Post Debridement Size (cm) - Depth 2.7 3.4 -Total Square Cm 11.20 14.80 -Wound/Ulcer Outcome Not Healed Not Healed -Ulcer Cleansing Rinsed/ Rinsed/ Irrigated with Irrigated with Saline Saline -Foul Odor after Cleansing No No -Bioengineered Tissue No No -Bleeding Controlled with NA Pressure -Treatment Response Procedure Procedure Tolerated Well Tolerated Well #10 L buttocks stage IV -Time 15:05 14:09 -Correct Patient Yes Yes -Correct Side, Site, Position Yes Yes -Correct Procedure Yes Yes -Procedure Performed Yes Yes -Type of Procedure Debridement Debridement -Clinical Debridement Subcutaneous Subcutaneous -Post Debridement Size (cm) - Length 0.3 0.3 -Post Debridement Size (cm) - Width 0.2 0.3 -Post Debridement Size (cm) - Depth 0.5 0.4 -Total Square Cm 0.06 0.09 -Wound/Ulcer Outcome Not Healed Not Healed -Ulcer Cleansing Rinsed/ Rinsed/ Irrigated with Irrigated with Saline Saline -Foul Odor after Cleansing No No -Bioengineered Tissue No No -Bleeding Controlled with NA Pressure -Treatment Response Procedure Procedure Tolerated Well Tolerated Well Pain Scale: 0-10 Numeric Is Patient Pain Free? Yes Yes Wound debrided: left upper thigh Laterality: Left Wound Grade/Stage: stage III Type of Debridement: Excisional debridement Anesthesia Used: 4% Lidocaine Solution Depth: Down to and including healthy tissue, in the subcutaneous layer Percentage of wound debrided: 100 Instrument Used: 5mm curette Tissue Removed: yellow slough, devitalized tissue Severity: Fat Layer Exposed Amount of bleeding with debridement: Mild Bleeding Controlled with: Compression and gauze Patient tolerated procedure well - Additional Wound Wound debrided: right gluteal fold Laterality: Right Wound Grade/Stage: stage III Type of Debridement: Excisional debridement Anesthesia Used: 4% Lidocaine Solution Depth: Down to and including healthy tissue, in the subcutaneous layer Percentage of wound debrided: 100 Instrument Used: 5mm curette Tissue Removed: yellow slough, devitalized tissue Severity: Fat Layer Exposed Amount of bleeding with debridement: Mild Bleeding Controlled with: Pressure Patient tolerated procedure: Patient tolerated procedure well - Additional Wound Wound debrided: left buttock stage IV Laterality: Left Wound Grade/Stage: stage IV Type of Debridement: Excisional debridement Anesthesia Used: 4% Lidocaine Solution Depth: Down to and including healthy tissue, in the subcutaneous layer Percentage of wound debrided: 100 Instrument Used: 5mm curette Tissue Removed: yellow slough, devitalized tissue Severity: Fat Layer Exposed Amount of bleeding with debridement: Mild Bleeding Controlled with: Compression and gauze Patient tolerated procedure: Patient tolerated procedure well Assessment/Plan Active Problems Open wound of left thigh (Chronic) traumatic skin tear posterior thigh Neurogenic bladder (Chronic) Diabetes mellitus type 2 in nonobese (Chronic) Pressure ulcer of right buttock, stage 3 (Chronic) Malnutrition (Chronic) Pressure sore of left ischium, stage 4 (Chronic) Spinal stenosis (Chronic) Assessment: This is a 67-year-old female with bilateral ischial pressure ulcerations. She also has an ulceration of the left buttock/posterior upper thigh. The patient has chosen to forego aggressive surgical management in the past, choosing rather to pursue more conservative treatment modalities. She is currently on a complex care regimen. Offloading measures are to be continued. We are to continue the use of Aquacel Extra topically to each of the ischial pressure ulcerations. Optimization of her diabetes mellitus has been recommended. Optimizing nutrition has also been reinforced. The patient does not wish to consider a more aggressive approach which would involve surgical options. She has rebuffed the idea of consultation with a plastic surgeon. Recent CT scan of the pelvis, performed 08/05/2017, reveals no evidence of osteomyelitis. Plan: Evaluation and debridement completed as above. Wound culture taken and will treat based on results. She is currently on keflex daily for UTI prophylaxis. No improvement in measurements of wounds. Will return in 2 weeks for reassessment. Optimizing nutrition and diabetes control has been recommended. Offloading measures and frequent repositioning are to continue. Suprapubic catheter has been replaced and is so far going well but she is having leakage from her urethra and it is affecting the wounds. We will try dressing the wounds with KerraMaxCare over the Aquacel to help absorb away the urine and avoid it affecting the wounds. Patient has been encouraged to increase protein intake to aid in wound healing and maintain good control of diabetes. Discussed offloading importance in wound healing. We are to continue Aquacel for all the ischial/buttock pressure ulcerations. F/U in 2 weeks.
[2017-10-16 13:40] VITALS: BP 148/75; PULSE 111; RESP 16; TEMP 37
--- NOTE | 2017-10-16 19:43 | PCM.WC.PN ---
(1) Neurogenic bladder Status: Chronic Current Visit: Yes Code(s): N31.9 - Neuromuscular dysfunction of bladder, unspecified (2) Diabetes mellitus type 2 in nonobese Status: Chronic Current Visit: Yes Code(s): E11.9 - Type 2 diabetes mellitus without complications (3) Pressure ulcer of left buttock, stage 3 Status: Chronic Current Visit: Yes Code(s): L89.323 - Pressure ulcer of left buttock, stage 3 (4) Pressure ulcer of right buttock, stage 3 Status: Chronic Current Visit: Yes Code(s): L89.313 - Pressure ulcer of right buttock, stage 3 (5) Malnutrition Status: Chronic Current Visit: Yes Qualifiers: Malnutrition type: protein-calorie malnutrition Protein-calorie malnutrition severity: moderate Qualified Code(s): E44.0 - Moderate protein-calorie malnutrition Code(s): E46 - Unspecified protein-calorie malnutrition (6) Pressure sore of left ischium, stage 4 Status: Chronic Current Visit: Yes Code(s): L89.324 - Pressure ulcer of left buttock, stage 4 (7) Spinal stenosis Status: Chronic Current Visit: Yes Qualifiers: Spinal region: lumbar Neurogenic claudication status: with neurogenic claudication Qualified Code(s): M48.062 - Spinal stenosis, lumbar region with neurogenic claudication Code(s): M48.00 - Spinal stenosis, site unspecified Type of Wound Date of Service: 10/16/17 Chief Complaint: Left ischial pressure ulcer, Stage IV. Right ischial pressure ulcer, stage III. Spinal stenosis. Ulceration of left buttock. History of Wound: Patient is a 67-year-old female who has a chronic pressure ulcer of her left ischium and right ischium. Patient was initially hospitalized for a swelling and redness of her right leg approximately 2014. This was evaluated for cellulitis. She was seen in consultation by infectious disease and plastic surgery. The patient was taken to surgery for an operative debridement of her chronic left ischial ulcer, underwent wound vac treatment and IV antibiotics. She was abruptly released from the [facility] after only a few weeks, before end of therapy. She had finished her IV antibiotics for Grp A strep osteomyelitis at home and continued with PT at home as well. She has decided to go with the conservative care route since she feels that her quality of life is more important than healing out the wound but had continued to keep the wound vac. The wound vac was discontinued by her insurance for failure to show improvement in the size of her wound. She has been seen twice monthly for conservative/palliative/complex care of her bilateral ischial pressure ulcers. She lives with her brother and [id number], who help dress her ulcers/wounds. She has recently developed a skin tear/abrasion of the left buttock/upper posterior thigh. Current management involves the use of collagenase Santyl topically to the skin tear on the left posterior upper thigh, and Aquacel with respect to the ischial pressure ulcerations. The patient has recently completed courses of antibiotics which have included Augmentin and clindamycin. In January 2017, she underwent treatment after developing pressure ulcers which occurred from urinary incontinence issues associated with a chronic UTI and leakage of her catheter. She developed another pressure ulcer of her right buttock on or around April 20, 2017, and presented for treatment of this area as well as continued treatment of her left ischial pressure ulcer. Denies fever, chills or increased pain. The patient indicates that she sleeps on an air loss mattress, and possesses a Roho cushion for her wheelchair. She has previously been counseled as to the importance of offloading measures. She also has been taking Sigifredo protein shakes, and is aware that optimizing glycemic control is advisable. Review of recent laboratory studies reveals a protein of 8.6, albumin 3.2, and hemoglobin A1c of 6.9, on June 03, 2017. Patient is essentially nonambulatory, and uses a walker for transition from bed to chair. She is severely deconditioned. Progress of Wound: Patient continues with conservative care management of left ischium - aquacel dressing to wound daily. No concerns for infection in this pressure ulcer at this time. The pressure ulcer of her right gluteal fold is about the same this week but tissue and wound bed still look healthy. The left thigh has improved somewhat. She continues to have problems with incontinence of urine and her urologist is working with her still. She was started on Myrbetriq but has not noticed any improvement. This has made her wounds more moist. She is nearly finished with antibiotics for treatment of positive wound culture. She continues to sit in her wheelchair frequently for long periods of time but has tried to offload more. - Physical Exam Vital Signs Temp Pulse Resp BP 98.6 F 111 H 16 148/75 H 10/16/17 13:40 10/16/17 13:40 10/16/17 13:40 10/16/17 13:40 General: Alert, Oriented x3, Cooperative, No apparent distress HEENT: Atraumatic, Normocephalic Oral: Moist Mucosa Abdomen: Obese Skin: Ulcer/ Wound Wound Measurements and Assessment WC - Nurse 1 - General Ulcer Measurement Start: 09/18/17 14:16 Freq: Status: Active Protocol: Activity Type Activity Date Activity User E-Sign Co-Sign Detail Recorded Client Recorded Date Recorded By Document 10/16/17 13:40 [facility] [id number] 10/16/17 13:49 [facility] 10/16/17 13:40 Wound Center Nurse 1 [Ulcer Assessment] #11 left upper thigh -Combined with other wound No -Current Size (cm) - Length 4.4 -Current Size (cm) - Width 2.4 -Current Size (cm) - Depth 1.4 -Total Square Cm 10.56 -Photo Taken No -Epithelialization None Present -Tunneling No -Wound Margin Distinct, Outline Attached -Granulation Amt Medium (34-66%) -Granulation Quality Pale [place] -Slough/Fibrin Yes -Necrosis Amt Medium (34-66%) -Structure Exposed None/Limited to Skin Breakdown -Texture (Mairah-wound Skin Appearance) Assessed Scarring -Moisture (Amirah-wound Skin Appearance Assessed ) Maceration -Color (Amirah-wound Skin Appearance) Assessed -Temperature (Amirah-wound Skin No Abnormality Appearance) (Pt Warm) -Tenderness on Palpation (Amirah-wound No Skin Appearance) -Ulcer Cleansing Rinsed/ Irrigated with Saline -Foul Odor after Cleansing No -Anesthetic Used 5% Lidocaine Gel #7- RT GLUTEAL FOLD Stage III -Combined with other wound No -Current Size (cm) - Length 2.9 -Current Size (cm) - Width 4.0 -Current Size (cm) - Depth 3.3 -Total Square Cm 11.60 -Photo Taken No -Epithelialization None Present -Tunneling No -Circular Undermining No -Exudate Amt Large (67-100%) -Exudate Type Serous -Wound Margin Distinct, Outline Attached -Granulation Quality [place] Red -Slough/Fibrin Yes -Necrosis Amt Medium (34-66%) -Necrotic Tissue Type Adherent Slough -Structure Exposed None/Limited to Skin Breakdown -Texture (Amirah-wound Skin Appearance) Assessed Not Assessed -Temperature (Amirah-wound Skin No Abnormality Appearance) (Pt Warm) -Tenderness on Palpation (Amirah-wound No Skin Appearance) -Ulcer Cleansing Rinsed/ Irrigated with Saline -Foul Odor after Cleansing No -Anesthetic Used 5% Lidocaine Gel #10 L buttocks stage IV -Combined with other wound No -Current Size (cm) - Length 0.1 -Current Size (cm) - Width 0.1 -Current Size (cm) - Depth 0.7 -Total Square Cm 0.01 -Photo Taken No -Epithelialization None Present -Tunneling No -Undermining/Tunneling No -Circular Undermining No -Exudate Amt None Present (0 %) -Wound Margin Distinct, Outline Attached -Granulation Amt Medium (34-66%) -Granulation Quality [place] -Slough/Fibrin Yes -Necrosis Amt Medium (34-66%) -Necrotic Tissue Type Adherent Slough -Structure Exposed None/Limited to Skin Breakdown -Texture (Amirah-wound Skin Appearance) Assessed -Moisture (Amirah-wound Skin Appearance Maceration ) -Color (Amirah-wound Skin Appearance) Assessed -Temperature (Amirah-wound Skin No Abnormality Appearance) (Pt Warm) -Ulcer Cleansing Rinsed/ Irrigated with Saline -Foul Odor after Cleansing No -Anesthetic Used 5% Lidocaine Gel [Edema Assessment] -Lower Limb Edema Present NA WC - Nurse 2 - General Ulcer CM Notes Start: 09/18/17 14:16 Freq: Status: Active Protocol: Activity Type Activity Date Activity User E-Sign Co-Sign Detail Recorded Client Recorded Date Recorded By Document 10/16/17 14:41 [id number] 10/16/17 14:59 10/16/17 14:41 Wound Center Nurse 2 [Procedure/Treatment] #11 left upper thigh -Time 14:47 -Correct Patient Yes -Correct Side, Site, Position Yes -Correct Procedure Yes -Procedure Performed Yes -Type of Procedure Debridement -Clinical Debridement Subcutaneous -Post Debridement Size (cm) - Length 4.2 -Post Debridement Size (cm) - Width 2.7 -Post Debridement Size (cm) - Depth 2.0 -Total Square Cm 11.34 -Wound/Ulcer Outcome Not Healed -Ulcer Cleansing Rinsed/ Irrigated with Saline -Foul Odor after Cleansing No -Bioengineered Tissue No -Topical Lidocaine (%) 4 -Bleeding Controlled with Pressure -Treatment Response Procedure Tolerated Well #7- RT GLUTEAL FOLD Stage III -Time 14:47 -Correct Patient Yes -Correct Side, Site, Position Yes -Correct Procedure Yes -Procedure Performed Yes -Type of Procedure Debridement -Clinical Debridement Subcutaneous -Post Debridement Size (cm) - Length 3.8 -Post Debridement Size (cm) - Width 3.8 -Post Debridement Size (cm) - Depth 3.7 -Total Square Cm 14.44 -Wound/Ulcer Outcome Not Healed -Ulcer Cleansing Rinsed/ Irrigated with Saline -Foul Odor after Cleansing No -Bioengineered Tissue No -Topical Lidocaine (%) 4 -Bleeding Controlled with Pressure -Treatment Response Procedure Tolerated Well #10 L buttocks stage IV -Time 14:48 -Correct Patient Yes -Correct Side, Site, Position Yes -Correct Procedure Yes -Procedure Performed Yes -Type of Procedure Debridement -Clinical Debridement Subcutaneous -Post Debridement Size (cm) - Length 0.2 -Post Debridement Size (cm) - Width 0.3 -Post Debridement Size (cm) - Depth 0.4 -Total Square Cm 0.06 -Wound/Ulcer Outcome Not Healed -Ulcer Cleansing Rinsed/ Irrigated with Saline -Foul Odor after Cleansing No -Bioengineered Tissue No -Topical Lidocaine (%) 4 -Bleeding Controlled with Pressure -Treatment Response Procedure Tolerated Well [See Physician Procedure note for Specifics] Pain Scale: 0-10 Numeric [Pain] -Is Patient Pain Free? Yes Psych/Mental Status: Normal Affect, Appropriate Debridement Note Post-Debridement Measurements/Treatment WC - Nurse 2 - General Ulcer CM Notes Start: 09/18/17 14:16 Freq: Status: Active Protocol: Activity Type Activity Date Activity User E-Sign Co-Sign Detail Recorded Client Recorded Date Recorded By Document 09/18/17 14:51 JS [id number] 09/18/17 15:14 JS Document 10/02/17 14:05 DV [id number] 10/02/17 14:11 DV Document 10/16/17 14:41 TM [id number] 10/16/17 14:59 TM 09/18/17 10/02/17 10/16/17 14:51 14:05 14:41 Wound Center Nurse 2 #11 left upper thigh -Time 15:05 14:10 14:47 -Correct Patient Yes Yes Yes -Correct Side, Site, Position Yes Yes Yes -Correct Procedure Yes Yes Yes -Procedure Performed Yes Yes Yes -Type of Procedure Debridement Debridement Debridement -Clinical Debridement Subcutaneous Subcutaneous Subcutaneous -Post Debridement Size (cm) - Length 3.5 4.1 4.2 -Post Debridement Size (cm) - Width 3.7 3.0 2.7 -Post Debridement Size (cm) - Depth 2.1 2.4 2.0 -Total Square Cm 12.95 12.30 11.34 -Wound/Ulcer Outcome Not Healed Not Healed Not Healed -Ulcer Cleansing Rinsed/ Rinsed/ Rinsed/ Irrigated with Irrigated with Irrigated with Saline Saline Saline -Foul Odor after Cleansing No No -Bioengineered Tissue No No -Topical Lidocaine (%) 4 -Bleeding Controlled with Pressure Pressure -Treatment Response Procedure Procedure Tolerated Well Tolerated Well #7- RT GLUTEAL FOLD Stage III -Time 15: 14: 14:47 -Correct Patient Yes Yes Yes -Correct Side, Site, Position Yes Yes Yes -Correct Procedure Yes Yes Yes -Procedure Performed Yes Yes Yes -Type of Procedure Debridement Debridement Debridement -Clinical Debridement Subcutaneous Subcutaneous Subcutaneous -Post Debridement Size (cm) - Length 3.5 3.7 3.8 -Post Debridement Size (cm) - Width 3.2 4.0 3.8 -Post Debridement Size (cm) - Depth 2.7 3.4 3.7 -Total Square Cm 11.20 14.80 14.44 -Wound/Ulcer Outcome Not Healed Not Healed Not Healed -Ulcer Cleansing Rinsed/ Rinsed/ Rinsed/ Irrigated with Irrigated with Irrigated with Saline Saline Saline -Foul Odor after Cleansing No No No -Bioengineered Tissue No No No -Topical Lidocaine (%) 4 -Bleeding Controlled with NA Pressure Pressure -Treatment Response Procedure Procedure Procedure Tolerated Well Tolerated Well Tolerated Well #10 L buttocks stage IV -Time 15: 14:09 14:48 -Correct Patient Yes Yes Yes -Correct Side, Site, Position Yes Yes Yes -Correct Procedure Yes Yes Yes -Procedure Performed Yes Yes Yes -Type of Procedure Debridement Debridement Debridement -Clinical Debridement Subcutaneous Subcutaneous Subcutaneous -Post Debridement Size (cm) - Length 0.3 0.3 0.2 -Post Debridement Size (cm) - Width 0.2 0.3 0.3 -Post Debridement Size (cm) - Depth 0.5 0.4 0.4 -Total Square Cm 0.06 0.09 0.06 -Wound/Ulcer Outcome Not Healed Not Healed Not Healed -Ulcer Cleansing Rinsed/ Rinsed/ Rinsed/ Irrigated with Irrigated with Irrigated with Saline Saline Saline -Foul Odor after Cleansing No No No -Bioengineered Tissue No No No -Topical Lidocaine (%) 4 -Bleeding Controlled with NA Pressure Pressure -Treatment Response Procedure Procedure Procedure Tolerated Well Tolerated Well Tolerated Well Pain Scale: 0-10 Numeric Is Patient Pain Free? Yes Yes Yes Wound debrided: left upper thigh/buttock Laterality: Left Wound Grade/Stage: stage III Type of Debridement: Excisional debridement Anesthesia Used: 4% Lidocaine Solution Depth: Down to and including healthy tissue, in the subcutaneous layer Percentage of wound debrided: 100 Instrument Used: 5mm curette Tissue Removed: yellow slough, devitalized tissue Severity: Fat Layer Exposed Amount of bleeding with debridement: Mild Bleeding Controlled with: Compression and gauze Patient tolerated procedure well - Additional Wound Wound debrided: right gluteal fold Laterality: Right Wound Grade/Stage: stage III Type of Debridement: Excisional debridement Anesthesia Used: 4% Lidocaine Solution Depth: Down to and including healthy tissue, in the subcutaneous layer Percentage of wound debrided: 100 Instrument Used: 5mm curette Tissue Removed: yellow slough, devitalized tissue Severity: Fat Layer Exposed Amount of bleeding with debridement: Mild Bleeding Controlled with: Compression and gauze Patient tolerated procedure: Patient tolerated procedure well - Additional Wound Wound debrided: left ischium Laterality: Left Wound Grade/Stage: Stage IV Type of Debridement: Excisional debridement Anesthesia Used: 4% Lidocaine Solution Depth: Down to and including healthy tissue, in the subcutaneous layer Percentage of wound debrided: 100 Instrument Used: 5mm curette Tissue Removed: yellow slough, devitalized tissue Severity: Fat Layer Exposed Amount of bleeding with debridement: Mild Bleeding Controlled with: Compression and gauze Patient tolerated procedure: Patient tolerated procedure well Assessment/Plan Active Problems Open wound of left thigh (Chronic) traumatic skin tear posterior thigh Neurogenic bladder (Chronic) Diabetes mellitus type 2 in nonobese (Chronic) Pressure ulcer of left buttock, stage 3 (Chronic) Pressure ulcer of right buttock, stage 3 (Chronic) Malnutrition (Chronic) Pressure sore of left ischium, stage 4 (Chronic) Spinal stenosis (Chronic) Assessment: This is a 67-year-old female with bilateral ischial pressure ulcerations. She also has an ulceration of the left buttock/posterior upper thigh. The patient has chosen to forego aggressive surgical management in the past, choosing rather to pursue more conservative treatment modalities. She is currently on a complex care regimen. Offloading measures are to be continued. We are to continue the use of Aquacel Extra topically to each of the ischial pressure ulcerations. Optimization of her diabetes mellitus has been recommended. Optimizing nutrition has also been reinforced. The patient does not wish to consider a more aggressive approach which would involve surgical options. She has rebuffed the idea of consultation with a plastic surgeon. Recent CT scan of the pelvis, performed 08/05/2017, reveals no evidence of osteomyelitis. Plan: Evaluation and debridement completed as above. Continue conservative/complex care plan for all wounds. Will try Allevyn to help protect her wounds from moisture of urine. No improvement in measurements of wounds. Will return in 2 weeks for reassessment. Optimizing nutrition and diabetes control has been recommended. Offloading measures and frequent repositioning are to continue. Suprapubic catheter has been replaced and is so far going well but she is having leakage from her urethra and it is affecting the wounds. Patient has been encouraged to increase protein intake to aid in wound healing and maintain good control of diabetes. Discussed offloading importance in wound healing. We are to continue Aquacel for all the ischial/buttock pressure ulcerations. F/U in 2 weeks.
--- NOTE | 2017-10-16 19:49 | PN.PCM_ITS ---
(1) Neurogenic bladder Status: Chronic Current Visit: Yes Code(s): N31.9 - Neuromuscular dysfunction of bladder, unspecified (2) Diabetes mellitus type 2 in nonobese Status: Chronic Current Visit: Yes Code(s): E11.9 - Type 2 diabetes mellitus without complications (3) Pressure ulcer of left buttock, stage 3 Status: Chronic Current Visit: Yes Code(s): L89.323 - Pressure ulcer of left buttock, stage 3 (4) Pressure ulcer of right buttock, stage 3 Status: Chronic Current Visit: Yes Code(s): L89.313 - Pressure ulcer of right buttock, stage 3 (5) Malnutrition Status: Chronic Current Visit: Yes Qualifiers: Malnutrition type: protein-calorie malnutrition Protein-calorie malnutrition severity: moderate Qualified Code(s): E44.0 - Moderate protein- calorie malnutrition Code(s): E46 - Unspecified protein-calorie malnutrition (6) Pressure sore of left ischium, stage 4 Status: Chronic Current Visit: Yes Code(s): L89.324 - Pressure ulcer of left buttock, stage 4 (7) Spinal stenosis Status: Chronic Current Visit: Yes Qualifiers: Spinal region: lumbar Neurogenic claudication status: with neurogenic claudication Qualified Code(s): M48.062 - Spinal stenosis, lumbar region with neurogenic claudication Code(s): M48.00 - Spinal stenosis, site unspecified Type of Wound Date of Service: 10/16/17 Chief Complaint: Left ischial pressure ulcer, Stage IV. Right ischial pressure ulcer, stage III. Spinal stenosis. Ulceration of left buttock. History of Wound: Patient is a 67-year-old female who has a chronic pressure ulcer of her left ischium and right ischium. Patient was initially hospitalized for a swelling and redness of her right leg approximately 2014. This was evaluated for cellulitis. She was seen in consultation by infectious disease and plastic surgery. The patient was taken to surgery for an operative debridement of her chronic left ischial ulcer, underwent wound vac treatment and IV antibiotics. She was abruptly released from the [facility] after only a few weeks, before end of therapy. She had finished her IV antibiotics for Grp A strep osteomyelitis at home and continued with PT at home as well. She has decided to go with the conservative care route since she feels that her quality of life is more important than healing out the wound but had continued to keep the wound vac. The wound vac was discontinued by her insurance for failure to show improvement in the size of her wound. She has been seen twice monthly for conservative/palliative/complex care of her bilateral ischial pressure ulcers. She lives with her brother and [id number], who help dress her ulcers/wounds. She has recently developed a skin tear/abrasion of the left buttock/upper posterior thigh. Current management involves the use of collagenase Santyl topically to the skin tear on the left posterior upper thigh, and Aquacel with respect to the ischial pressure ulcerations. The patient has recently completed courses of antibiotics which have included Augmentin and clindamycin. In January 2017, she underwent treatment after developing pressure ulcers which occurred from urinary incontinence issues associated with a chronic UTI and leakage of her catheter. She developed another pressure ulcer of her right buttock on or around April 20, 2017, and presented for treatment of this area as well as continued treatment of her left ischial pressure ulcer. Denies fever , chills or increased pain. The patient indicates that she sleeps on an air loss mattress, and possesses a Roho cushion for her wheelchair. She has previously been counseled as to the importance of offloading measures. She also has been taking Sigifredo protein shakes, and is aware that optimizing glycemic control is advisable. Review of recent laboratory studies reveals a protein of 8.6, albumin 3.2, and hemoglobin A1c of 6.9, on June 03, 2017. Patient is essentially nonambulatory, and uses a walker for transition from bed to chair. She is severely deconditioned. Progress of Wound: Patient continues with conservative care management of left ischium - aquacel dressing to wound daily. No concerns for infection in this pressure ulcer at this time. The pressure ulcer of her right gluteal fold is about the same this week but tissue and wound bed still look healthy. The left thigh has improved somewhat. She continues to have problems with incontinence of urine and her urologist is working with her still. She was started on Myrbetriq but has not noticed any improvement. This has made her wounds more moist. She is nearly finished with antibiotics for treatment of positive wound culture. She continues to sit in her wheelchair frequently for long periods of time but has tried to offload more. - Physical Exam Vital Signs Temp Pulse Resp BP 98.6 F 111 H 16 148/75 H 10/16/17 13:40 10/16/17 13:40 10/16/17 13:40 10/16/17 13:40 General: Alert, Oriented x3, Cooperative, No apparent distress HEENT: Atraumatic, Normocephalic Oral: Moist Mucosa Abdomen: Obese Skin: Ulcer/ Wound Wound Measurements and Assessment WC - Nurse 1 - General Ulcer Measurement Start: 09/18/17 14:16 Freq: Status: Active Protocol: Activity Type Activity Date Activity User E-Sign Co-Sign Detail Recorded Client Recorded Date Recorded By Document 10/16/17 13:40 [facility] [id number] 10/16/17 13:49 [facility] 10/16/17 13:40 Wound Center Nurse 1 [Ulcer Assessment] #11 left upper thigh -Combined with other wound No -Current Size (cm) - Length 4.4 -Current Size (cm) - Width 2.4 -Current Size (cm) - Depth 1.4 -Total Square Cm 10.56 -Photo Taken No -Epithelialization None Present -Tunneling No -Wound Margin Distinct, Outline Attached -Granulation Amt Medium (34-66%) -Granulation Quality Pale [place] -Slough/Fibrin Yes -Necrosis Amt Medium (34-66%) -Structure Exposed None/Limited to Skin Breakdown -Texture (Amirah-wound Skin Appearance) Assessed Scarring -Moisture (Amirah-wound Skin Appearance Assessed ) Maceration -Color (Amirah-wound Skin Appearance) Assessed -Temperature (Amirah-wound Skin No Abnormality Appearance) (Pt Warm) -Tenderness on Palpation (Amirah-wound No Skin Appearance) -Ulcer Cleansing Rinsed/ Irrigated with Saline -Foul Odor after Cleansing No -Anesthetic Used 5% Lidocaine Gel #7- RT GLUTEAL FOLD Stage III -Combined with other wound No -Current Size (cm) - Length 2.9 -Current Size (cm) - Width 4.0 -Current Size (cm) - Depth 3.3 -Total Square Cm 11.60 -Photo Taken No -Epithelialization None Present -Tunneling No -Circular Undermining No -Exudate Amt Large (67-100%) -Exudate Type Serous -Wound Margin Distinct, Outline Attached -Granulation Quality [place] Red -Slough/Fibrin Yes -Necrosis Amt Medium (34-66%) -Necrotic Tissue Type Adherent Slough -Structure Exposed None/Limited to Skin Breakdown -Texture (Amirah-wound Skin Appearance) Assessed Not Assessed -Temperature (Amirah-wound Skin No Abnormality Appearance) (Pt Warm) -Tenderness on Palpation (Amirah-wound No Skin Appearance) -Ulcer Cleansing Rinsed/ Irrigated with Saline -Foul Odor after Cleansing No -Anesthetic Used 5% Lidocaine Gel #10 L buttocks stage IV -Combined with other wound No -Current Size (cm) - Length 0.1 -Current Size (cm) - Width 0.1 -Current Size (cm) - Depth 0.7 -Total Square Cm 0.01 -Photo Taken No -Epithelialization None Present -Tunneling No -Undermining/Tunneling No -Circular Undermining No -Exudate Amt None Present (0 %) -Wound Margin Distinct, Outline Attached -Granulation Amt Medium (34-66%) -Granulation Quality [place] -Slough/Fibrin Yes -Necrosis Amt Medium (34-66%) -Necrotic Tissue Type Adherent Slough -Structure Exposed None/Limited to Skin Breakdown -Texture (Amirah-wound Skin Appearance) Assessed -Moisture (Amirah-wound Skin Appearance Maceration ) -Color (Amirah-wound Skin Appearance) Assessed -Temperature (Amiarh-wound Skin No Abnormality Appearance) (Pt Warm) -Ulcer Cleansing Rinsed/ Irrigated with Saline -Foul Odor after Cleansing No -Anesthetic Used 5% Lidocaine Gel [Edema Assessment] -Lower Limb Edema Present NA WC - Nurse 2 - General Ulcer CM Notes Start: 09/18/17 14:16 Freq: Status: Active Protocol: Activity Type Activity Date Activity User E-Sign Co-Sign Detail Recorded Client Recorded Date Recorded By Document 10/16/17 14:41 [id number] 10/16/17 14:59 10/16/17 14:41 Wound Center Nurse 2 [Procedure/Treatment] #11 left upper thigh -Time 14:47 -Correct Patient Yes -Correct Side, Site, Position Yes -Correct Procedure Yes -Procedure Performed Yes -Type of Procedure Debridement -Clinical Debridement Subcutaneous -Post Debridement Size (cm) - Length 4.2 -Post Debridement Size (cm) - Width 2.7 -Post Debridement Size (cm) - Depth 2.0 -Total Square Cm 11.34 -Wound/Ulcer Outcome Not Healed -Ulcer Cleansing Rinsed/ Irrigated with Saline -Foul Odor after Cleansing No -Bioengineered Tissue No -Topical Lidocaine (%) 4 -Bleeding Controlled with Pressure -Treatment Response Procedure Tolerated Well #7- RT GLUTEAL FOLD Stage III -Time 14:47 -Correct Patient Yes -Correct Side, Site, Position Yes -Correct Procedure Yes -Procedure Performed Yes -Type of Procedure Debridement -Clinical Debridement Subcutaneous -Post Debridement Size (cm) - Length 3.8 -Post Debridement Size (cm) - Width 3.8 -Post Debridement Size (cm) - Depth 3.7 -Total Square Cm 14.44 -Wound/Ulcer Outcome Not Healed -Ulcer Cleansing Rinsed/ Irrigated with Saline -Foul Odor after Cleansing No -Bioengineered Tissue No -Topical Lidocaine (%) 4 -Bleeding Controlled with Pressure -Treatment Response Procedure Tolerated Well #10 L buttocks stage IV -Time 14:48 -Correct Patient Yes -Correct Side, Site, Position Yes -Correct Procedure Yes -Procedure Performed Yes -Type of Procedure Debridement -Clinical Debridement Subcutaneous -Post Debridement Size (cm) - Length 0.2 -Post Debridement Size (cm) - Width 0.3 -Post Debridement Size (cm) - Depth 0.4 -Total Square Cm 0.06 -Wound/Ulcer Outcome Not Healed -Ulcer Cleansing Rinsed/ Irrigated with Saline -Foul Odor after Cleansing No -Bioengineered Tissue No -Topical Lidocaine (%) 4 -Bleeding Controlled with Pressure -Treatment Response Procedure Tolerated Well [See Physician Procedure note for Specifics] Pain Scale: 0-10 Numeric [Pain] -Is Patient Pain Free? Yes Psych/Mental Status: Normal Affect, Appropriate Debridement Note Post-Debridement Measurements/Treatment WC - Nurse 2 - General Ulcer CM Notes Start: 09/18/17 14:16 Freq: Status: Active Protocol: Activity Type Activity Date Activity User E-Sign Co-Sign Detail Recorded Client Recorded Date Recorded By Document 09/18/17 14:51 JS [id number] 09/18/17 15:14 JS Document 10/02/17 14:05 DV [id number] 10/02/17 14:11 DV Document 10/16/17 14:41 TM [id number] 10/16/17 14:59 TM 09/18/17 10/02/17 10/16/17 14:51 14:05 14:41 Wound Center Nurse 2 #11 left upper thigh -Time 15:05 14:10 14:47 -Correct Patient Yes Yes Yes -Correct Side, Site, Position Yes Yes Yes -Correct Procedure Yes Yes Yes -Procedure Performed Yes Yes Yes -Type of Procedure Debridement Debridement Debridement -Clinical Debridement Subcutaneous Subcutaneous Subcutaneous -Post Debridement Size (cm) - Length 3.5 4.1 4.2 -Post Debridement Size (cm) - Width 3.7 3.0 2.7 -Post Debridement Size (cm) - Depth 2.1 2.4 2.0 -Total Square Cm 12.95 12.30 11.34 -Wound/Ulcer Outcome Not Healed Not Healed Not Healed -Ulcer Cleansing Rinsed/ Rinsed/ Rinsed/ Irrigated with Irrigated with Irrigated with Saline Saline Saline -Foul Odor after Cleansing No No -Bioengineered Tissue No No -Topical Lidocaine (%) 4 -Bleeding Controlled with Pressure Pressure -Treatment Response Procedure Procedure Tolerated Well Tolerated Well #7- RT GLUTEAL FOLD Stage III -Time 15: 14: 14:47 -Correct Patient Yes Yes Yes -Correct Side, Site, Position Yes Yes Yes -Correct Procedure Yes Yes Yes -Procedure Performed Yes Yes Yes -Type of Procedure Debridement Debridement Debridement -Clinical Debridement Subcutaneous Subcutaneous Subcutaneous -Post Debridement Size (cm) - Length 3.5 3.7 3.8 -Post Debridement Size (cm) - Width 3.2 4.0 3.8 -Post Debridement Size (cm) - Depth 2.7 3.4 3.7 -Total Square Cm 11.20 14.80 14.44 -Wound/Ulcer Outcome Not Healed Not Healed Not Healed -Ulcer Cleansing Rinsed/ Rinsed/ Rinsed/ Irrigated with Irrigated with Irrigated with Saline Saline Saline -Foul Odor after Cleansing No No No -Bioengineered Tissue No No No -Topical Lidocaine (%) 4 -Bleeding Controlled with NA Pressure Pressure -Treatment Response Procedure Procedure Procedure Tolerated Well Tolerated Well Tolerated Well #10 L buttocks stage IV -Time 15: 14:09 14:48 -Correct Patient Yes Yes Yes -Correct Side, Site, Position Yes Yes Yes -Correct Procedure Yes Yes Yes -Procedure Performed Yes Yes Yes -Type of Procedure Debridement Debridement Debridement -Clinical Debridement Subcutaneous Subcutaneous Subcutaneous -Post Debridement Size (cm) - Length 0.3 0.3 0.2 -Post Debridement Size (cm) - Width 0.2 0.3 0.3 -Post Debridement Size (cm) - Depth 0.5 0.4 0.4 -Total Square Cm 0.06 0.09 0.06 -Wound/Ulcer Outcome Not Healed Not Healed Not Healed -Ulcer Cleansing Rinsed/ Rinsed/ Rinsed/ Irrigated with Irrigated with Irrigated with Saline Saline Saline -Foul Odor after Cleansing No No No -Bioengineered Tissue No No No -Topical Lidocaine (%) 4 -Bleeding Controlled with NA Pressure Pressure -Treatment Response Procedure Procedure Procedure Tolerated Well Tolerated Well Tolerated Well Pain Scale: 0-10 Numeric Is Patient Pain Free? Yes Yes Yes Wound debrided: left upper thigh/buttock Laterality: Left Wound Grade/Stage: stage III Type of Debridement: Excisional debridement Anesthesia Used: 4% Lidocaine Solution Depth: Down to and including healthy tissue, in the subcutaneous layer Percentage of wound debrided: 100 Instrument Used: 5mm curette Tissue Removed: yellow slough, devitalized tissue Severity: Fat Layer Exposed Amount of bleeding with debridement: Mild Bleeding Controlled with: Compression and gauze Patient tolerated procedure well - Additional Wound Wound debrided: right gluteal fold Laterality: Right Wound Grade/Stage: stage III Type of Debridement: Excisional debridement Anesthesia Used: 4% Lidocaine Solution Depth: Down to and including healthy tissue, in the subcutaneous layer Percentage of wound debrided: 100 Instrument Used: 5mm curette Tissue Removed: yellow slough, devitalized tissue Severity: Fat Layer Exposed Amount of bleeding with debridement: Mild Bleeding Controlled with: Compression and gauze Patient tolerated procedure: Patient tolerated procedure well - Additional Wound Wound debrided: left ischium Laterality: Left Wound Grade/Stage: Stage IV Type of Debridement: Excisional debridement Anesthesia Used: 4% Lidocaine Solution Depth: Down to and including healthy tissue, in the subcutaneous layer Percentage of wound debrided: 100 Instrument Used: 5mm curette Tissue Removed: yellow slough, devitalized tissue Severity: Fat Layer Exposed Amount of bleeding with debridement: Mild Bleeding Controlled with: Compression and gauze Patient tolerated procedure: Patient tolerated procedure well Assessment/Plan Active Problems Open wound of left thigh (Chronic) traumatic skin tear posterior thigh Neurogenic bladder (Chronic) Diabetes mellitus type 2 in nonobese (Chronic) Pressure ulcer of left buttock, stage 3 (Chronic) Pressure ulcer of right buttock, stage 3 (Chronic) Malnutrition (Chronic) Pressure sore of left ischium, stage 4 (Chronic) Spinal stenosis (Chronic) Assessment: This is a 67-year-old female with bilateral ischial pressure ulcerations. She also has an ulceration of the left buttock/posterior upper thigh. The patient has chosen to forego aggressive surgical management in the past, choosing rather to pursue more conservative treatment modalities. She is currently on a complex care regimen. Offloading measures are to be continued. We are to continue the use of Aquacel Extra topically to each of the ischial pressure ulcerations. Optimization of her diabetes mellitus has been recommended. Optimizing nutrition has also been reinforced. The patient does not wish to consider a more aggressive approach which would involve surgical options. She has rebuffed the idea of consultation with a plastic surgeon. Recent CT scan of the pelvis, performed 08/05/2017, reveals no evidence of osteomyelitis. Plan: Evaluation and debridement completed as above. Continue conservative/ complex care plan for all wounds. Will try Allevyn to help protect her wounds from moisture of urine. No improvement in measurements of wounds. Will return in 2 weeks for reassessment. Optimizing nutrition and diabetes control has been recommended. Offloading measures and frequent repositioning are to continue. Suprapubic catheter has been replaced and is so far going well but she is having leakage from her urethra and it is affecting the wounds. Patient has been encouraged to increase protein intake to aid in wound healing and maintain good control of diabetes. Discussed offloading importance in wound healing. We are to continue Aquacel for all the ischial/buttock pressure ulcerations. F/U in 2 weeks.
== END 2017-10-17 23:59 ==
LOC: WC 13:00
PROVIDERS: Family Provider Family Medicine; PCP Family Medicine; Visit Provider Family Medicine
DX: E11.622 Type 2 diabetes mellitus with other skin ulcer (principal); L89.323 Pressure ulcer of left buttock, stage 3; L89.313 Pressure ulcer of right buttock, stage 3; L89.224 Pressure ulcer of left hip, stage 4; N31.9 Neuromuscular dysfunction of bladder, unspecified; M48.062 Spinal stenosis, lumbar region with neurogenic claudication; R32 Unspecified urinary incontinence
CPT/HCPCS: 11042; 11045; 87070; 87075; 87186; 87205; 97597

== ENCOUNTER 2017-11-13 13:45 | Outpatient (RCR) | payer MEDICAID, SELFPAY ==
[2017-10-18 00:30] VITALS: BP 148/75; PULSE 111; RESP 16; TEMP 37
[2017-10-30 13:22] VITALS: BP 125/73; PULSE 102; RESP 16; TEMP 36.4
--- NOTE | 2017-10-30 18:12 | PN.PCM_ITS ---
(1) Open wound of left thigh Status: Chronic Current Visit: Yes Qualifiers: Encounter type: subsequent encounter Code(s): S71.102A - Unspecified open wound, left thigh, initial encounter Comment: traumatic skin tear posterior thigh (2) Diabetes mellitus type 2 in nonobese Status: Chronic Current Visit: Yes Code(s): E11.9 - Type 2 diabetes mellitus without complications (3) Pressure ulcer of left buttock, stage 3 Status: Chronic Current Visit: Yes Code(s): L89.323 - Pressure ulcer of left buttock, stage 3 (4) Pressure ulcer of right buttock, stage 3 Status: Chronic Current Visit: Yes Code(s): L89.313 - Pressure ulcer of right buttock, stage 3 (5) Pressure sore of left ischium, stage 4 Status: Chronic Current Visit: Yes Code(s): L89.324 - Pressure ulcer of left buttock, stage 4 Type of Wound Date of Service: 10/30/17 Chief Complaint: Left ischial pressure ulcer, Stage IV. Right ischial pressure ulcer, stage III. Spinal stenosis. Ulceration of left buttock. History of Wound: Patient is a 67-year-old female who has a chronic pressure ulcer of her left ischium and right ischium. Patient was initially hospitalized for a swelling and redness of her right leg approximately 2014. This was evaluated for cellulitis. She was seen in consultation by infectious disease and plastic surgery. The patient was taken to surgery for an operative debridement of her chronic left ischial ulcer, underwent wound vac treatment and IV antibiotics. She was abruptly released from the F after only a few weeks, before end of therapy. She had finished her IV antibiotics for Grp A strep osteomyelitis at home and continued with PT at home as well. She has decided to go with the conservative care route since she feels that her quality of life is more important than healing out the wound but had continued to keep the wound vac. The wound vac was discontinued by her insurance for failure to show improvement in the size of her wound. She has been seen twice monthly for conservative/palliative/complex care of her bilateral ischial pressure ulcers. She lives with her brother and [id number], who help dress her ulcers/wounds. She has recently developed a skin tear/abrasion of the left buttock/upper posterior thigh. Current management involves the use of collagenase Santyl topically to the skin tear on the left posterior upper thigh, and Aquacel with respect to the ischial pressure ulcerations. The patient has recently completed courses of antibiotics which have included Augmentin and clindamycin. In January 2017, she underwent treatment after developing pressure ulcers which occurred from urinary incontinence issues associated with a chronic UTI and leakage of her catheter. She developed another pressure ulcer of her right buttock on or around April 20, 2017, and presented for treatment of this area as well as continued treatment of her left ischial pressure ulcer. Denies fever , chills or increased pain. The patient indicates that she sleeps on an air loss mattress, and possesses a Roho cushion for her wheelchair. She has previously been counseled as to the importance of offloading measures. She also has been taking Sigifredo protein shakes, and is aware that optimizing glycemic control is advisable. Review of recent laboratory studies reveals a protein of 8.6, albumin 3.2, and hemoglobin A1c of 6.9, on June 03, 2017. Patient is essentially nonambulatory, and uses a walker for transition from bed to chair. She is severely deconditioned. Progress of Wound: Patient continues with conservative care management of left ischium - aquacel dressing to wound daily. No concerns for infection in this pressure ulcer at this time. The pressure ulcer of her right gluteal fold is about the same this week but tissue and wound bed still look healthy. The left thigh has improved somewhat. She continues to have problems with incontinence of urine and her urologist removed her suprapubic catheter and discussed referral for possible diverting bladder surgery. She is unsure as to whether she would like to pursue this option. Her incontinence has made her wounds more moist. She completed antibiotics for positive wound culture. She continues to sit in her wheelchair frequently for long periods of time but has tried to offload more. - Physical Exam Vital Signs Temp Pulse Resp BP 97.5 F L 102 H 16 125/73 H 10/30/17 13:22 10/30/17 13:22 10/30/17 13:22 10/30/17 13:22 General: Alert, Oriented x3, Cooperative, No apparent distress HEENT: Atraumatic, Normocephalic Oral: Moist Mucosa Abdomen: Obese Skin: Ulcer/ Wound Wound Measurements and Assessment WC - Nurse 1 - General Ulcer Measurement Start: 07/13/18 10:20 Freq: Status: Active Protocol: Activity Type Activity Date Activity User E-Sign Co-Sign Detail Recorded Client Recorded Date Recorded By Document 10/30/17 13:22 [facility] [id number] 10/30/17 13:35 [facility] 10/30/17 13:22 Wound Center Nurse 1 [Ulcer Assessment] #11 left upper thigh -Combined with other wound No -Current Size (cm) - Length 2.5 -Current Size (cm) - Width 3.7 -Current Size (cm) - Depth 1.5 -Total Square Cm 9.25 -Photo Taken No -Epithelialization None Present -Tunneling No -Undermining/Tunneling No -Circular Undermining No -Exudate Amt Large (67-100%) -Exudate Type Serosanguineous -Wound Margin Distinct, Outline Attached -Granulation Amt Large (67-100%) -Granulation Quality Pale Red -Slough/Fibrin Yes -Necrosis Amt Small (1-33%) -Necrotic Tissue Type Adherent Slough -Texture (Amirah-wound Skin Appearance) Scarring -Moisture (Amirah-wound Skin Appearance Maceration ) -Color (Amirah-wound Skin Appearance) Erythema Palor -Temperature (Amirah-wound Skin No Abnormality Appearance) (Pt Warm) -Tenderness on Palpation (Amirah-wound No Skin Appearance) -Ulcer Cleansing Wound Cleanser -Foul Odor after Cleansing No -Anesthetic Used 5% Lidocaine Gel #7- RT GLUTEAL FOLD Stage III -Combined with other wound No -Current Size (cm) - Length 4.4 -Current Size (cm) - Width 1.9 -Current Size (cm) - Depth 3.1 -Total Square Cm 8.36 -Photo Taken No -Epithelialization None Present -Tunneling No -Undermining/Tunneling No -Circular Undermining No -Exudate Amt Medium (34-66%) -Exudate Type Serosanguineous -Wound Margin Distinct, Outline Attached -Granulation Amt Large (67-100%) -Granulation Quality Pale Red -Slough/Fibrin Yes -Necrosis Amt Small (1-33%) -Necrotic Tissue Type Adherent Slough -Texture (Amirah-wound Skin Appearance) Scarring -Moisture (Amirah-wound Skin Appearance Maceration ) -Color (Amirah-wound Skin Appearance) Erythema Palor -Temperature (Amirah-wound Skin No Abnormality Appearance) (Pt Warm) -Tenderness on Palpation (Amirah-wound No Skin Appearance) -Ulcer Cleansing Wound Cleanser -Foul Odor after Cleansing No -Anesthetic Used 5% Lidocaine Gel #10 L buttocks stage IV -Combined with other wound No -Current Size (cm) - Length 0.1 -Current Size (cm) - Width 0.2 -Current Size (cm) - Depth 0.9 -Total Square Cm 0.02 -Photo Taken No -Tunneling No -Undermining/Tunneling No -Circular Undermining No -Exudate Amt Small (1-33%) -Exudate Type Serosanguineous -Wound Margin Fibrotic Scar, Thickened Scar -Granulation Amt Large (67-100%) -Granulation Quality [place] -Slough/Fibrin No -Necrosis Amt None Present (0 %) -Texture (Amirah-wound Skin Appearance) Callus Scarring -Moisture (Amirah-wound Skin Appearance Maceration ) -Color (Amirah-wound Skin Appearance) Palor -Temperature (Amirah-wound Skin No Abnormality Appearance) (Pt Warm) -Tenderness on Palpation (Amirah-wound No Skin Appearance) -Ulcer Cleansing Wound Cleanser -Foul Odor after Cleansing No -Anesthetic Used 5% Lidocaine Gel WC - Nurse 2 - General Ulcer CM Notes Start: 10/30/17 10:20 Freq: Status: Active Protocol: Activity Type Activity Date Activity User E-Sign Co-Sign Detail Recorded Client Recorded Date Recorded By Document 10/30/17 14:32 [id number] 10/30/17 14:36 10/30/17 14:32 Wound Center Nurse 2 [Procedure/Treatment] #11 left upper thigh -Time 14:32 -Correct Patient Yes -Correct Side, Site, Position Yes -Correct Procedure Yes -Procedure Performed Yes -Type of Procedure Debridement -Clinical Debridement Subcutaneous -Post Debridement Size (cm) - Length 3.7 -Post Debridement Size (cm) - Width 2.5 -Post Debridement Size (cm) - Depth 1.9 -Total Square Cm 9.25 -Wound/Ulcer Outcome Not Healed -Ulcer Cleansing Rinsed/ Irrigated with Saline -Foul Odor after Cleansing No -Bioengineered Tissue No -Topical Lidocaine (%) 5 -Bleeding Controlled with Pressure -Treatment Response Procedure Tolerated Well #7- RT GLUTEAL FOLD Stage III -Time 14:33 -Correct Patient Yes -Correct Side, Site, Position Yes -Correct Procedure Yes -Procedure Performed Yes -Type of Procedure Debridement -Clinical Debridement Subcutaneous -Post Debridement Size (cm) - Length 3.9 -Post Debridement Size (cm) - Width 4.1 -Post Debridement Size (cm) - Depth 4.0 -Total Square Cm 15.99 -Wound/Ulcer Outcome Not Healed -Ulcer Cleansing Rinsed/ Irrigated with Saline -Foul Odor after Cleansing No -Bioengineered Tissue No -Topical Lidocaine (%) 5 -Bleeding Controlled with Pressure -Treatment Response Procedure Tolerated Well #10 L buttocks stage IV -Time 14:33 -Correct Patient Yes -Correct Side, Site, Position Yes -Correct Procedure Yes -Procedure Performed Yes -Type of Procedure Debridement -Clinical Debridement Subcutaneous -Post Debridement Size (cm) - Length 0.2 -Post Debridement Size (cm) - Width 0.3 -Post Debridement Size (cm) - Depth 0.9 -Total Square Cm 0.06 -Wound/Ulcer Outcome Not Healed -Ulcer Cleansing Rinsed/ Irrigated with Saline -Foul Odor after Cleansing No -Bioengineered Tissue No -Topical Lidocaine (%) 5 -Bleeding Controlled with Pressure -Treatment Response Procedure Tolerated Well [See Physician Procedure note for Specifics] Pain Scale: 0-10 Numeric [Pain] -Is Patient Pain Free? Yes Psych/Mental Status: Normal Affect, Appropriate Debridement Note Post-Debridement Measurements/Treatment WC - Nurse 2 - General Ulcer CM Notes Start: 10/30/17 10:20 Freq: Status: Active Protocol: Activity Type Activity Date Activity User E-Sign Co-Sign Detail Recorded Client Recorded Date Recorded By Document 10/30/17 14:32 [id number] 10/30/17 14:36 10/30/17 14:32 Wound Center Nurse 2 #11 left upper thigh -Time 14:32 -Correct Patient Yes -Correct Side, Site, Position Yes -Correct Procedure Yes -Procedure Performed Yes -Type of Procedure Debridement -Clinical Debridement Subcutaneous -Post Debridement Size (cm) - Length 3.7 -Post Debridement Size (cm) - Width 2.5 -Post Debridement Size (cm) - Depth 1.9 -Total Square Cm 9.25 -Wound/Ulcer Outcome Not Healed -Ulcer Cleansing Rinsed/ Irrigated with Saline -Foul Odor after Cleansing No -Bioengineered Tissue No -Topical Lidocaine (%) 5 -Bleeding Controlled with Pressure -Treatment Response Procedure Tolerated Well #7- RT GLUTEAL FOLD Stage III -Time 14:33 -Correct Patient Yes -Correct Side, Site, Position Yes -Correct Procedure Yes -Procedure Performed Yes -Type of Procedure Debridement -Clinical Debridement Subcutaneous -Post Debridement Size (cm) - Length 3.9 -Post Debridement Size (cm) - Width 4.1 -Post Debridement Size (cm) - Depth 4.0 -Total Square Cm 15.99 -Wound/Ulcer Outcome Not Healed -Ulcer Cleansing Rinsed/ Irrigated with Saline -Foul Odor after Cleansing No -Bioengineered Tissue No -Topical Lidocaine (%) 5 -Bleeding Controlled with Pressure -Treatment Response Procedure Tolerated Well #10 L buttocks stage IV -Time 14:33 -Correct Patient Yes -Correct Side, Site, Position Yes -Correct Procedure Yes -Procedure Performed Yes -Type of Procedure Debridement -Clinical Debridement Subcutaneous -Post Debridement Size (cm) - Length 0.2 -Post Debridement Size (cm) - Width 0.3 -Post Debridement Size (cm) - Depth 0.9 -Total Square Cm 0.06 -Wound/Ulcer Outcome Not Healed -Ulcer Cleansing Rinsed/ Irrigated with Saline -Foul Odor after Cleansing No -Bioengineered Tissue No -Topical Lidocaine (%) 5 -Bleeding Controlled with Pressure -Treatment Response Procedure Tolerated Well Pain Scale: 0-10 Numeric Is Patient Pain Free? Yes Wound debrided: left upper thigh Stage III Laterality: Left Wound Grade/Stage: left upper thigh stage III Type of Debridement: Excisional debridement Anesthesia Used: 4% Lidocaine Solution Depth: Down to and including healthy tissue, in the subcutaneous layer Percentage of wound debrided: 100 Instrument Used: 5mm curette Tissue Removed: yellow slough, devitalized tissue Severity: Fat Layer Exposed Amount of bleeding with debridement: Mild Bleeding Controlled with: Compression and gauze Patient tolerated procedure well - Additional Wound Wound debrided: right gluteal fold stage III Laterality: Right Wound Grade/Stage: stage III Type of Debridement: Excisional debridement Anesthesia Used: 4% Lidocaine Solution Depth: Down to and including healthy tissue, in the subcutaneous layer Percentage of wound debrided: 100 Instrument Used: 5mm curette Tissue Removed: yellow slough, devitalized tissue Severity: Fat Layer Exposed Amount of bleeding with debridement: Mild Bleeding Controlled with: Compression and gauze Patient tolerated procedure: Patient tolerated procedure well - Additional Wound Wound debrided: left buttock stage IV Laterality: Left Wound Grade/Stage: stage IV Type of Debridement: Excisional debridement Anesthesia Used: 4% Lidocaine Solution Depth: Down to and including healthy tissue, in the subcutaneous layer Percentage of wound debrided: 100 Instrument Used: 5mm curette Tissue Removed: yellow slough, devitalized tissue Severity: Fat Layer Exposed Amount of bleeding with debridement: Mild Bleeding Controlled with: Compression and gauze Patient tolerated procedure: Patient tolerated procedure well Assessment/Plan Active Problems Open wound of left thigh (Chronic) traumatic skin tear posterior thigh Diabetes mellitus type 2 in nonobese (Chronic) Pressure ulcer of left buttock, stage 3 (Chronic) Pressure ulcer of right buttock, stage 3 (Chronic) Pressure sore of left ischium, stage 4 (Chronic) Assessment: This is a 67-year-old female with bilateral ischial pressure ulcerations. She also has an ulceration of the left buttock/posterior upper thigh. The patient has chosen to forego aggressive surgical management in the past, choosing rather to pursue more conservative treatment modalities. She is currently on a complex care regimen. Offloading measures are to be continued. We are to continue the use of Aquacel Extra topically to each of the ischial pressure ulcerations. Optimization of her diabetes mellitus has been recommended. Optimizing nutrition has also been reinforced. The patient does not wish to consider a more aggressive approach which would involve surgical options. She has rebuffed the idea of consultation with a plastic surgeon. Recent CT scan of the pelvis, performed 08/05/2017, reveals no evidence of osteomyelitis. Plan: Evaluation and debridement completed as above. Continue conservative/ complex care plan for all wounds. Will continue using Allevyn to help protect her wounds from moisture of urine. No improvement in measurements of wounds. Will return in 2 weeks for reassessment. Discussed possibility of using wound vac such as DIEGO system to pull drainage away from her wounds and help heal the stage 3 pressure ulcers that she has. She is willing to consider this option. Optimizing nutrition and diabetes control has been recommended. Offloading measures and frequent repositioning are to continue. Suprapubic catheter removed and she continues to have incontinence that is affecting the wounds. Patient has been encouraged to increase protein intake to aid in wound healing and maintain good control of diabetes. Discussed offloading importance in wound healing. We are to continue Aquacel for all the ischial/buttock pressure ulcerations. F/U in 2 weeks.
[2017-11-13 13:23] VITALS: BP 110/53; PULSE 112; RESP 18; TEMP 36.4
--- NOTE | 2017-11-13 18:48 | PCM.WC.PN ---
(1) Open wound of left thigh Status: Chronic Current Visit: Yes Qualifiers: Encounter type: subsequent encounter Code(s): S71.102A - Unspecified open wound, left thigh, initial encounter Comment: traumatic skin tear posterior thigh (2) Diabetes mellitus type 2 in nonobese Status: Chronic Current Visit: Yes Code(s): E11.9 - Type 2 diabetes mellitus without complications (3) Pressure ulcer of left buttock, stage 3 Status: Chronic Current Visit: Yes Code(s): L89.323 - Pressure ulcer of left buttock, stage 3 (4) Pressure ulcer of right buttock, stage 3 Status: Chronic Current Visit: Yes Code(s): L89.313 - Pressure ulcer of right buttock, stage 3 (5) Pressure sore of left ischium, stage 4 Status: Chronic Current Visit: Yes Code(s): L89.324 - Pressure ulcer of left buttock, stage 4 Type of Wound Date of Service: 11/13/17 Chief Complaint: Left ischial pressure ulcer, Stage IV. Right ischial pressure ulcer, stage III. Spinal stenosis. Ulceration of left buttock. History of Wound: Patient is a 67-year-old female who has a chronic pressure ulcer of her left ischium and right ischium. Patient was initially hospitalized for a swelling and redness of her right leg approximately 2014. This was evaluated for cellulitis. She was seen in consultation by infectious disease and plastic surgery. The patient was taken to surgery for an operative debridement of her chronic left ischial ulcer, underwent wound vac treatment and IV antibiotics. She was abruptly released from the F after only a few weeks, before end of therapy. She had finished her IV antibiotics for Grp A strep osteomyelitis at home and continued with PT at home as well. She has decided to go with the conservative care route since she feels that her quality of life is more important than healing out the wound but had continued to keep the wound vac. The wound vac was discontinued by her insurance for failure to show improvement in the size of her wound. She has been seen twice monthly for conservative/palliative/complex care of her bilateral ischial pressure ulcers. She lives with her brother and [id number], who help dress her ulcers/wounds. She has recently developed a skin tear/abrasion of the left buttock/upper posterior thigh. Current management involves the use of collagenase Santyl topically to the skin tear on the left posterior upper thigh, and Aquacel with respect to the ischial pressure ulcerations. The patient has recently completed courses of antibiotics which have included Augmentin and clindamycin. In January 2017, she underwent treatment after developing pressure ulcers which occurred from urinary incontinence issues associated with a chronic UTI and leakage of her catheter. She developed another pressure ulcer of her right buttock on or around April 20, 2017, and presented for treatment of this area as well as continued treatment of her left ischial pressure ulcer. Denies fever, chills or increased pain. The patient indicates that she sleeps on an air loss mattress, and possesses a Roho cushion for her wheelchair. She has previously been counseled as to the importance of offloading measures. She also has been taking Sigifredo protein shakes, and is aware that optimizing glycemic control is advisable. Review of recent laboratory studies reveals a protein of 8.6, albumin 3.2, and hemoglobin A1c of 6.9, on June 03, 2017. Patient is essentially nonambulatory, and uses a walker for transition from bed to chair. She is severely deconditioned. Progress of Wound: Patient continues with conservative care management of left ischium - aquacel dressing to wound daily. No concerns for infection in this pressure ulcer at this time. The pressure ulcer of her right gluteal fold is about the same this week but tissue and wound bed still look healthy. The left thigh has an odor present and there is also exposure of the bone with some softening noted. She continues to have problems with incontinence of urine and her urologist removed her suprapubic catheter and discussed referral for possible diverting bladder surgery. She is unsure as to whether she would like to pursue this option. Her incontinence has made her wounds more moist but recent adjustments in dressings have seemed to help. She continues to sit in her wheelchair frequently for long periods of time but has tried to offload more. - Physical Exam Vital Signs Temp Pulse Resp BP 97.5 F L 112 H 18 110/53 L 11/13/17 13:23 11/13/17 13:23 11/13/17 13:23 11/13/17 13:23 General: Alert, Oriented x3, Cooperative, No apparent distress HEENT: Atraumatic, Normocephalic Oral: Moist Mucosa Neck: Supple Abdomen: Soft, Non Tender, Obese Skin: Ulcer/ Wound Wound Measurements and Assessment WC - Nurse 1 - General Ulcer Measurement Start: 10/30/17 10:20 Freq: Status: Active Protocol: Activity Type Activity Date Activity User E-Sign Co-Sign Detail Recorded Client Recorded Date Recorded By Document 11/13/17 13:23 DL [id number] 11/13/17 13:34 DL 11/13/17 13:23 Wound Center Nurse 1 [Ulcer Assessment] #11 left upper thigh -Current Size (cm) - Length 4.4 -Current Size (cm) - Width 2.5 -Current Size (cm) - Depth 1.1 -Total Square Cm 11.00 -Tunneling Position (O'clock) 11 -Tunneling Distance (cm) 3.3 -Exudate Amt Medium (34-66%) -Exudate Type Serosanguineous -Wound Margin Distinct, Outline Attached -Granulation Amt Large (67-100%) -Granulation Quality [place] -Necrosis Amt Medium (34-66%) -Necrotic Tissue Type Adherent Slough -Structure Exposed N/A -Texture (Amirah-wound Skin Appearance) Scarring -Moisture (Amirah-wound Skin Appearance Maceration ) -Color (Amirah-wound Skin Appearance) No Abnormality Rubor -Temperature (Amirah-wound Skin No Abnormality Appearance) (Pt Warm) -Tenderness on Palpation (Amirah-wound No Skin Appearance) -Ulcer Cleansing Wound Cleanser -Foul Odor after Cleansing No -Anesthetic Used 4% Lidocaine Solution #7- RT GLUTEAL FOLD Stage III -Current Size (cm) - Length 4.5 -Current Size (cm) - Width 3.4 -Current Size (cm) - Depth 3.3 -Total Square Cm 15.30 -Photo Taken No -Undermining/Tunneling Starts (O' 11 clock) -Undermining/Tunneling Ends (O'clock) 1 -Maximum Distance (cm) 1.5 -Exudate Amt Medium (34-66%) -Exudate Type Serosanguineous -Wound Margin Distinct, Outline Attached -Granulation Amt Large (67-100%) -Granulation Quality Red -Necrosis Amt Small (1-33%) -Necrotic Tissue Type Adherent Slough -Structure Exposed N/A -Texture (Amirah-wound Skin Appearance) Scarring -Moisture (Amirah-wound Skin Appearance No Abnormality ) -Color (Amirah-wound Skin Appearance) Rubor -Temperature (Amirah-wound Skin No Abnormality Appearance) (Pt Warm) -Ulcer Cleansing Wound Cleanser -Foul Odor after Cleansing No -Anesthetic Used 4% Lidocaine Solution #10 L buttocks stage IV -Current Size (cm) - Length 0.3 -Current Size (cm) - Width 0.4 -Current Size (cm) - Depth 0.7 -Total Square Cm 0.12 -Photo Taken No -Exudate Amt Small (1-33%) -Exudate Type Serosanguineous -Wound Margin Thickened -Granulation Amt None Present (0 %) -Necrosis Amt Small (1-33%) -Necrotic Tissue Type Adherent Slough -Structure Exposed N/A -Texture (Amirah-wound Skin Appearance) Scarring -Moisture (Amirah-wound Skin Appearance Maceration ) -Color (Amirah-wound Skin Appearance) Rubor -Temperature (Amirah-wound Skin No Abnormality Appearance) (Pt Warm) -Ulcer Cleansing Wound Cleanser -Foul Odor after Cleansing No -Anesthetic Used 4% Lidocaine Solution WC - Nurse 2 - General Ulcer CM Notes Start: 10/30/17 10:20 Freq: Status: Active Protocol: Activity Type Activity Date Activity User E-Sign Co-Sign Detail Recorded Client Recorded Date Recorded By Document 11/13/17 14:00 [id number] 11/13/17 14:02 11/13/17 14:00 Wound Center Nurse 2 [Procedure/Treatment] #11 left upper thigh -Time 14:00 -Correct Patient Yes -Correct Side, Site, Position Yes -Correct Procedure Yes -Procedure Performed Yes -Type of Procedure Debridement -Clinical Debridement Bone -Post Debridement Size (cm) - Length 4.5 -Post Debridement Size (cm) - Width 3.8 -Post Debridement Size (cm) - Depth 1.9 -Total Square Cm 17.10 -Wound/Ulcer Outcome Not Healed -Ulcer Cleansing Rinsed/ Irrigated with Saline -Foul Odor after Cleansing No -Bioengineered Tissue No -Topical Lidocaine (%) 5 -Bleeding Controlled with Pressure -Treatment Response Procedure Tolerated Well #7- RT GLUTEAL FOLD Stage III -Time 14:01 -Correct Patient Yes -Correct Side, Site, Position Yes -Correct Procedure Yes -Procedure Performed Yes -Type of Procedure Debridement -Clinical Debridement Subcutaneous -Post Debridement Size (cm) - Length 3.9 -Post Debridement Size (cm) - Width 3.9 -Post Debridement Size (cm) - Depth 3.4 -Total Square Cm 15.21 -Wound/Ulcer Outcome Not Healed -Ulcer Cleansing Rinsed/ Irrigated with Saline -Foul Odor after Cleansing No -Bioengineered Tissue No -Topical Lidocaine (%) 5 -Bleeding Controlled with Pressure -Treatment Response Procedure Tolerated Well #10 L buttocks stage IV -Time 14:02 -Correct Patient Yes -Correct Side, Site, Position Yes -Correct Procedure Yes -Type of Procedure Debridement -Clinical Debridement Subcutaneous -Post Debridement Size (cm) - Length 0.3 -Post Debridement Size (cm) - Width 0.4 -Post Debridement Size (cm) - Depth 0.3 -Total Square Cm 0.12 -Wound/Ulcer Outcome Not Healed -Ulcer Cleansing Rinsed/ Irrigated with Saline -Foul Odor after Cleansing No -Bioengineered Tissue No -Topical Lidocaine (%) 5 -Bleeding Controlled with Pressure -Treatment Response Procedure Tolerated Well [See Physician Procedure note for Specifics] Pain Scale: 0-10 Numeric [Pain] -Is Patient Pain Free? Yes Psych/Mental Status: Normal Affect, Appropriate Debridement Note Post-Debridement Measurements/Treatment WC - Nurse 2 - General Ulcer CM Notes Start: 10/30/17 10:20 Freq: Status: Active Protocol: Activity Type Activity Date Activity User E-Sign Co-Sign Detail Recorded Client Recorded Date Recorded By Document 10/30/17 14:32 TM [id number] 10/30/17 14:36 TM Document 11/13/17 14:00 TM [id number] 11/13/17 14:02 TM 10/30/17 11/13/17 14:32 14:00 Wound Center Nurse 2 #11 left upper thigh -Time 14:32 14:00 -Correct Patient Yes Yes -Correct Side, Site, Position Yes Yes -Correct Procedure Yes Yes -Procedure Performed Yes Yes -Type of Procedure Debridement Debridement -Clinical Debridement Subcutaneous Bone -Post Debridement Size (cm) - Length 3.7 4.5 -Post Debridement Size (cm) - Width 2.5 3.8 -Post Debridement Size (cm) - Depth 1.9 1.9 -Total Square Cm 9.25 17.10 -Wound/Ulcer Outcome Not Healed Not Healed -Ulcer Cleansing Rinsed/ Rinsed/ Irrigated with Irrigated with Saline Saline -Foul Odor after Cleansing No No -Bioengineered Tissue No No -Topical Lidocaine (%) 5 5 -Bleeding Controlled with Pressure Pressure -Treatment Response Procedure Procedure Tolerated Well Tolerated Well #7- RT GLUTEAL FOLD Stage III -Time 14:33 14:01 -Correct Patient Yes Yes -Correct Side, Site, Position Yes Yes -Correct Procedure Yes Yes -Procedure Performed Yes Yes -Type of Procedure Debridement Debridement -Clinical Debridement Subcutaneous Subcutaneous -Post Debridement Size (cm) - Length 3.9 3.9 -Post Debridement Size (cm) - Width 4.1 3.9 -Post Debridement Size (cm) - Depth 4.0 3.4 -Total Square Cm 15.99 15.21 -Wound/Ulcer Outcome Not Healed Not Healed -Ulcer Cleansing Rinsed/ Rinsed/ Irrigated with Irrigated with Saline Saline -Foul Odor after Cleansing No No -Bioengineered Tissue No No -Topical Lidocaine (%) 5 5 -Bleeding Controlled with Pressure Pressure -Treatment Response Procedure Procedure Tolerated Well Tolerated Well #10 L buttocks stage IV -Time 14:33 14:02 -Correct Patient Yes Yes -Correct Side, Site, Position Yes Yes -Correct Procedure Yes Yes -Procedure Performed Yes -Type of Procedure Debridement Debridement -Clinical Debridement Subcutaneous Subcutaneous -Post Debridement Size (cm) - Length 0.2 0.3 -Post Debridement Size (cm) - Width 0.3 0.4 -Post Debridement Size (cm) - Depth 0.9 0.3 -Total Square Cm 0.06 0.12 -Wound/Ulcer Outcome Not Healed Not Healed -Ulcer Cleansing Rinsed/ Rinsed/ Irrigated with Irrigated with Saline Saline -Foul Odor after Cleansing No No -Bioengineered Tissue No No -Topical Lidocaine (%) 5 5 -Bleeding Controlled with Pressure Pressure -Treatment Response Procedure Procedure Tolerated Well Tolerated Well Pain Scale: 0-10 Numeric Is Patient Pain Free? Yes Yes Wound debrided: left upper thigh stage III Laterality: Left Wound Grade/Stage: stage III Type of Debridement: Excisional debridement Anesthesia Used: 4% Lidocaine Solution Depth: Down to and including healthy tissue, in the subcutaneous layer Percentage of wound debrided: 100 Instrument Used: 5mm curette Tissue Removed: yellow slough, devitalized tissue Severity: Fat Layer Exposed Amount of bleeding with debridement: Mild Bleeding Controlled with: Compression and gauze Patient tolerated procedure well - Additional Wound Wound debrided: right gluteal fold stage III Laterality: Right Wound Grade/Stage: stage III Type of Debridement: Excisional debridement Anesthesia Used: 4% Lidocaine Solution Depth: Down to and including healthy tissue, in the subcutaneous layer Percentage of wound debrided: 100 Instrument Used: 5mm curette Tissue Removed: yellow slough, devitalized tissue Severity: Fat Layer Exposed Amount of bleeding with debridement: Mild Bleeding Controlled with: Compression and gauze Patient tolerated procedure: Patient tolerated procedure well - Additional Wound Wound debrided: left buttock stage IV Laterality: Left Wound Grade/Stage: stage IV Type of Debridement: Excisional debridement Anesthesia Used: 4% Lidocaine Solution Depth: Down to and including healthy tissue Percentage of wound debrided: 100 Instrument Used: 5mm curette Tissue Removed: yellow slough, devitalized tissue Severity: Fat Layer Exposed Amount of bleeding with debridement: Mild Bleeding Controlled with: Compression and gauze Patient tolerated procedure: Patient tolerated procedure well Assessment/Plan Active Problems Open wound of left thigh (Chronic) traumatic skin tear posterior thigh Diabetes mellitus type 2 in nonobese (Chronic) Pressure ulcer of left buttock, stage 3 (Chronic) Pressure ulcer of right buttock, stage 3 (Chronic) Pressure sore of left ischium, stage 4 (Chronic) Assessment: This is a 67-year-old female with bilateral ischial pressure ulcerations. She also has an ulceration of the left buttock/posterior upper thigh. The patient has chosen to forego aggressive surgical management in the past, choosing rather to pursue more conservative treatment modalities. She is currently on a complex care regimen. Offloading measures are to be continued. We are to continue the use of Aquacel Extra topically to each of the ischial pressure ulcerations. Optimization of her diabetes mellitus has been recommended. Optimizing nutrition has also been reinforced. The patient does not wish to consider a more aggressive approach which would involve surgical options. She has rebuffed the idea of consultation with a plastic surgeon. Recent CT scan of the pelvis, performed 08/05/2017, reveals no evidence of osteomyelitis. Plan: Continue conservative/complex care plan for all wounds. Xray of her pelvis was ordered to evaluate for possible osteomyelitis at the left upper thigh ulcer as well as wound culture if this wound. Will continue using Allevyn to help protect her wounds from moisture of urine. No improvement in measurements of wounds. Will return in 2 weeks for reassessment. Wound vac with reggie was denied by insurance. Optimizing nutrition and diabetes control has been recommended. Offloading measures and frequent repositioning are to continue. Suprapubic catheter removed and she continues to have incontinence that is affecting the wounds. Patient has been encouraged to increase protein intake to aid in wound healing and maintain good control of diabetes. Discussed offloading importance in wound healing. We are to continue Aquacel for all the ischial/buttock pressure ulcerations. F/U in 2 weeks.
--- NOTE | 2017-11-16 13:04 | RAD_ITS ---
STUDY: X-RAY - PELVIS REASON FOR EXAM: Female, 67 years old. Rule out osteomyelitis of left ischium TECHNIQUE: One view of the pelvis was obtained. COMPARISON: Previous study of 08/05/2017 FINDINGS: There is a large amount of colonic stool. Soft tissue calcification is seen inferior to the inferior left pubic ramus. Normal bilateral iliac wings, sacroiliac joints and visualized sacrum. There are sclerotic changes of the left inferior and superior pubic rami. There appears to be an osseous bridge or exostosis arising from the lateral left pubic ramus. Normal pubic symphysis. Normal ischial tuberosities. There are degenerative changes of the left and right hip joints. RAD/Pelvis 1 or 2 Views IMPRESSION: 1. Sclerosis of the left inferior and superior pubic rami. 2. There appears to be an osseous bridge or exostosis arising from the lateral left pubic ramus. 3. Soft tissue calcification inferior to the inferior left pubic ramus consistent with myositis ossificans. 4. Degenerative changes of the left and right hip joints and visualized lumbar spine. 5. Findings are similar to the previous study. 6. If clinically indicated, nuclear 3 phase bone scan may be helpful for further evaluation. Electronically Signed: Seb Huerta MD at 23:04 EDT , Service support ,
== END 2017-11-17 23:59 ==
LOC: WC 13:45
PROVIDERS: Family Provider Family Medicine; PCP Family Medicine; Visit Provider Family Medicine
DX: E11.622 Type 2 diabetes mellitus with other skin ulcer (principal); L89.323 Pressure ulcer of left buttock, stage 3; L89.313 Pressure ulcer of right buttock, stage 3; L89.224 Pressure ulcer of left hip, stage 4; S70.312A Abrasion, left thigh, initial encounter; X58.XXXA Exposure to other specified factors, initial encounter
CPT/HCPCS: 11042; 11044; 11045; 72170; 87070; 87075; 87077; 87186; 87205

== ENCOUNTER 2017-11-23 12:57 | Emergency (ER) | payer MEDICAID, SELFPAY ==
[2017-11-23 12:58] VITALS: BP 129/79; PULSE 106; RESP 16; TEMP 36.6; O2SAT 97; BMI 29.6
--- NOTE | 2017-11-23 13:28 | CT_ITS ---
STUDY: CT ABDOMEN AND PELVIS WITHOUT CONTRAST REASON FOR EXAM: Female, 67 years old. Prolapsed rectum, rectal pain and drainage. History of neurogenic bladder and colostomy. RADIATION DOSAGE (If Supplied By Facility): CTDIvol = ( 16.62 ) mGy, DLP = ( 1208.65 ) mGycm TECHNIQUE: Transaxial images were obtained from the dome of the diaphragm to the symphysis pubis without oral contrast, and without intravenous contrast. Sagittal and coronal images were reconstructed. Individualized dose optimization techniques were used for this CT. COMPARISON: CT pelvis 06/14/2014, 10/19/2013. FINDINGS: Body wall soft tissues: Left lower quadrant colostomy. There appears to be a rectal prolapse. Mild thickening of wall the rectum. Surrounding perirectal fat, and peritoneal fat is unremarkable. Within the gluteal crease immediately adjacent tuberosities bilaterally, there is marked soft tissue thickening of the skin, and to the margin tuberosity. This concerning for decubitus ulcer. There are no features of osteomyelitis Osseous structures: There is myositis ossificans extending into the origins of the hamstring muscles on the left from the base of the ischial tuberosity. There is prominent multilevel lumbar degenerative disc disease and facet arthropathy/hypertrophy with multilevel stenosis. Generalized osteopenia. Scoliosis. Mild to moderate hip joint degenerative changes bilaterally. Inferior chest: Normal lung bases, normal distal esophagus, normal heart size without effusion. Coronary calcifications are present. Hepatobiliary: Normal. Pancreas: No acute process. Spleen: Normal. Adrenal glands: Normal. Urogenital: Benign renal cysts. Symmetric nephrograms. Minimal atrophy. Normal collecting systems, ureters. The urinary bladder is decompressed by Rea catheter. Incompletely characterized. Uterus absent. Diminutive normal appearing bilateral ovaries. Pelvic floor and sidewalls and retroperitoneum: No mass or adenopathy. Vasculature: No acute process. Stomach: No acute process. Small bowel and mesentery: No acute process. Large bowel: Normal appendix. There is a large distributed stool burden of stool in the colon suggesting the possibility of constipation. In the rectosigmoid surgical stone, there is a small amount of retained feces, associated with mild thickening and hyperemia of the wall suggesting mild acute inflammation. Free fluid or free air: None. CT/Abdomen/Pelvis W IV Cont ONLY IMPRESSION: 1. There may be mild soft tissue inflammation associated with the anorectum. There is evidence of rectal prolapse. 2. There is a small amount of retained bubbly cc within the proximal most portion of the remnant sigmoid colon, of the rectosigmoid stump, associated with mild thickening of the wall, suggesting the presence of mild inflammation. 3. There is a prominent burden of stool in the entirety of the large bowel from cecum to the colostomy which may reflect constipation. 4. There is soft tissue induration thickening overlying the ischial tuberosities bilaterally to a greater extent on the right which may reflect development of decubitus ulcer, requiring close correlation. 5. Prominent lumbar spondylosis with multilevel prominent stenosis. Correlate for any symptoms of lumbosacral radiculopathy. Electronically Signed: Deshaun Ham, at 15:26 EDT Tel , Service support ,
[2017-11-23 13:50] LABS: Absolute Lymphocyte Count 1.32 X10^3/ul (0.83-4.51); Absolute Neutrophil Count 7.8 X10^3/uL (2.0-7.7); Basophil# 0.03 X10^3/uL; Basophil% 0.3 % (0-1); Eosinophil# 0.34 X10^3/uL; Eosinophils% 3.3 % (0-5); Hematocrit 40.5 % (37-47); Hemoglobin 12.5 g/dl (12.0-15.0); Lymphocyte # 1.32 X10^3/ul (4.0); Lymphocyte % 12.8 % (19-41); Mean Corp Hgb Conc 30.9 g/gl (32-36); Mean Corpuscular Hgb 25.7 pg (27.0-32.0); Mean Corpuscular Volume 83.3 fL (81-99); Mean Platelet Vol. 8.9 fl (6.2-12.0); Monocyte% 7.8 % (0-10); Neutrophil # 7.77 X10^3/uL (2.7-7.7); Neutrophil % 75.6 % (47-70); Platelet Count 387 K/mm3 (150-450); RBC Distribution Width CV 17.1 % (11.6-14.6); RBC Distribution Width SD 52.4 fl (35.1-43.9); Red Blood Count 4.86 M/mm3 (4.2-5.4); White Blood Count 10.3 K/mm3 (4.4-11.0)
[2017-11-23 13:54] LABS: POSITIVE COUNT NO; POSITIVE DIFFERENTIAL NO; POSITIVE MORPHOLOGY NO
[2017-11-23 14:02] LABS: Anion Gap 9 (5-15); BUN 33 mg/dL (7-18); BUN/Creat Ratio 37.7 RATIO (10-20); Calcium,Total 9.2 mg/dL (8.5-10.1); Chloride 102 mmol/L (98-107); Creatinine, Serum 0.88 mg/dL (0.55-1.02); EST Glomerular Filtration Rate 68 mL/min (>60); Est Glom Filt Rate - Afr Amer 82 mL/min (>60); Estimated Creatinine Clearance 48.39 ml/min; Glucose 129 mg/dL (74-106); Potassium 3.9 mmol/L (3.5-5.1); Sodium Level 138 mmol/L (136-145)
--- NOTE | 2017-11-23 14:15 | NURSING ---
NO LW OR POA
--- NOTE | 2017-11-23 15:14 | ED.DCSUM_ITS ---
- ER Visit Summary Date of Service: 11/23/17 Chief Complaint: Rectal drainage History of Present Illness: The patient is a 67 F with a history of colostomy here for drainage from her Moss's pouch. Patient gets frequent rectal prolapse. It is not currently prolapsed. She also has sacral decubitus ulcers and is taking Augmentin and Flagyl. Denies fever or systemic symptoms. Denies abdominal pain, nausea, or vomiting. Denies any changes in output from her colostomy. Physical Examination: Afebrile and vital signs unremarkable except for heart rate of 106. Patient is nontoxic and in no acute distress. Heart regular. Lungs clear. Abdomen soft. Rectal exam shows multiple thigh and buttock decubitus ulcers. There is no prolapse. No discharge or bleeding at this time. No palpable masses or tenderness. Test Results: Laboratory studies are unremarkable. CT imaging is pending and the oncoming doctor will check. Emergency Department Course and Treatment: Exam is fairly unremarkable. She has decubitus ulcers and is currently being treated with Augmentin and Flagyl. The drainage that the patient describes is currently not present. There is no evidence of prolapse. The concern would be an abscess or infection. Laboratory studies were unremarkable. CT is pending. The oncoming doctor will check. If everything is unremarkable, the patient will continue her antibiotics and follow-up with her doctor. Treatment Plan: As above Disposition: Pending further evaluation Impression: 1. Postop rectal drainage This note was generated with [employer] software. It may contain incorrect words, spelling, and punctuation that were not noted in review of the chart prior to signing <Javid Fermin - Last Filed: 11/23/17 15:11> - ER Visit Summary Date of Service: 11/23/17 Addendum, patient was turned over to me. I repeated the examination there is certainly some discharge from the rectum, this is consistent with candidal infection thus I am worried about a fistula between the vagina and the rectum, I discussed with surgery, there is no colorectal surgeon here thus I will refer a told the patient to call her insurance company tomorrow to figure out who she can be referred to an where, she either wants to go to [place] or [place]. At this time she continues to be on antibiotics which may cause her yeast infection to be worse. Otherwise patient will be discharged. This note was generated with [employer] software. It may contain incorrect words, spelling, and punctuation that were not noted in review of the chart prior to signing <Phani Ross - Last Filed: 11/23/17 17:31> ED Disposition <Javid Fermin - Last Filed: 11/23/17 15:11> <Phani Ross - Last Filed: 11/23/17 17:31> - Plan for ED Patient: Disposition: Home or Assisted Living Chief Complaint: Other, Pain/Inj Diagnosis: RP (rectal prolapse) Prescriptions: Fluconazole [Diflucan] 200 mg PO DAILY #3 tab Additional Instructions: You need to call your insurance company, at the name of a colorectal surgeon to follow-up with.
[2017-11-23 17:39] VITALS: BP 141/88; PULSE 89; RESP 16; O2SAT 96
[2017-11-23] MEDS: Fluconazole 100 MG Tablet 200 MG PO (17:44)
[2017-11-23 17:45] VITALS: BP 141/88; PULSE 95; RESP 16; O2SAT 96
== END 2017-11-23 17:51 | disposition home or self-care (01) ==
PROVIDERS: Emergency Medicine; Emergency Provider Emergency Medicine; Family Provider Family Medicine; PCP Family Medicine
DX: K91.89 Other postprocedural complications and disorders of digestive system (principal); L89.309 Pressure ulcer of unspecified buttock, unspecified stage; L89.899 Pressure ulcer of other site, unspecified stage; I10 Essential (primary) hypertension; E78.00 Pure hypercholesterolemia, unspecified; E11.9 Type 2 diabetes mellitus without complications; M10.9 Gout, unspecified; Z93.3 Colostomy status; Z79.84 Long term (current) use of oral hypoglycemic drugs; Z79.899 Other long term (current) drug therapy
CPT/HCPCS: 74177; 80048; 85025; 99284; Q9967

== ENCOUNTER 2017-12-11 13:30 | Outpatient (RCR) | payer MEDICAID, SELFPAY ==
[2017-11-18 00:33] VITALS: BP 110/53; PULSE 112; RESP 18; TEMP 36.4
[2017-11-27 13:24] VITALS: BP 127/69; PULSE 106; RESP 18; TEMP 36.2
--- NOTE | 2017-11-27 17:44 | PN.PCM_ITS ---
(1) Open wound of left thigh Status: Chronic Current Visit: Yes Qualifiers: Encounter type: subsequent encounter Code(s): S71.102A - Unspecified open wound, left thigh, initial encounter Comment: traumatic skin tear posterior thigh (2) Diabetes mellitus type 2 in nonobese Status: Chronic Current Visit: Yes Code(s): E11.9 - Type 2 diabetes mellitus without complications (3) Pressure ulcer of left buttock, stage 3 Status: Chronic Current Visit: Yes Code(s): L89.323 - Pressure ulcer of left buttock, stage 3 (4) Pressure ulcer of right buttock, stage 3 Status: Chronic Current Visit: Yes Code(s): L89.313 - Pressure ulcer of right buttock, stage 3 (5) Pressure sore of left ischium, stage 4 Status: Chronic Current Visit: Yes Code(s): L89.324 - Pressure ulcer of left buttock, stage 4 (6) Spinal stenosis Status: Chronic Current Visit: Yes Qualifiers: Spinal region: lumbar Neurogenic claudication status: unspecified Qualified Code(s): M48.061 - Spinal stenosis, lumbar region without neurogenic claudication Code(s): M48.00 - Spinal stenosis, site unspecified Type of Wound Date of Service: 11/27/17 Chief Complaint: Left ischial pressure ulcer, Stage IV. Right ischial pressure ulcer, stage III. Spinal stenosis. Ulceration of left buttock. History of Wound: Patient is a 67-year-old female who has a chronic pressure ulcer of her left ischium and right ischium. Patient was initially hospitalized for a swelling and redness of her right leg approximately 2014. This was evaluated for cellulitis. She was seen in consultation by infectious disease and plastic surgery. The patient was taken to surgery for an operative debridement of her chronic left ischial ulcer, underwent wound vac treatment and IV antibiotics. She was abruptly released from the F after only a few weeks, before end of therapy. She had finished her IV antibiotics for Grp A strep osteomyelitis at home and continued with PT at home as well. She has decided to go with the conservative care route since she feels that her quality of life is more important than healing out the wound but had continued to keep the wound vac. The wound vac was discontinued by her insurance for failure to show improvement in the size of her wound. She has been seen twice monthly for conservative/palliative/complex care of her bilateral ischial pressure ulcers. She lives with her brother and [id number], who help dress her ulcers/wounds. She has recently developed a skin tear/abrasion of the left buttock/upper posterior thigh. Current management involves the use of collagenase Santyl topically to the skin tear on the left posterior upper thigh, and Aquacel with respect to the ischial pressure ulcerations. The patient has recently completed courses of antibiotics which have included Augmentin and clindamycin. In January 2017, she underwent treatment after developing pressure ulcers which occurred from urinary incontinence issues associated with a chronic UTI and leakage of her catheter. She developed another pressure ulcer of her right buttock on or around April 20, 2017, and presented for treatment of this area as well as continued treatment of her left ischial pressure ulcer. Denies fever , chills or increased pain. The patient indicates that she sleeps on an air loss mattress, and possesses a Roho cushion for her wheelchair. She has previously been counseled as to the importance of offloading measures. She also has been taking Sigifredo protein shakes, and is aware that optimizing glycemic control is advisable. Review of recent laboratory studies reveals a protein of 8.6, albumin 3.2, and hemoglobin A1c of 6.9, on June 03, 2017. Patient is essentially nonambulatory, and uses a walker for transition from bed to chair. She is severely deconditioned. Progress of Wound: Patient continues with conservative care management of left ischium - aquacel dressing to wound daily. No concerns for infection in this pressure ulcer at this time. The pressure ulcer of her right gluteal fold is about the same this week but tissue and wound bed still look healthy. Her left upper thigh ulcer is starting to travel and become one with the left ischium ulcer. She was in the ER this week for drainage from her rectum and had a CT which did not show any osteomyelitis. She continues to have problems with incontinence of urine and her urologist removed her suprapubic catheter and discussed referral for possible diverting bladder surgery. She is unsure as to whether she would like to pursue this option. Her incontinence has made her wounds more moist but recent adjustments in dressings have seemed to help. She continues to sit in her wheelchair frequently for long periods of time but has tried to offload more. - Physical Exam Vital Signs Temp Pulse Resp BP 97.1 F L 106 H 18 127/69 H 11/27/17 13:24 11/27/17 13:24 11/27/17 13:24 11/27/17 13:24 General: Alert, Oriented x3, Cooperative, No apparent distress HEENT: Atraumatic, Normocephalic Oral: Moist Mucosa Abdomen: Obese Skin: Ulcer/ Wound Wound Measurements and Assessment WC - Nurse 1 - General Ulcer Measurement Start: 11/27/17 13:23 Freq: Status: Active Protocol: Activity Type Activity Date Activity User E-Sign Co-Sign Detail Recorded Client Recorded Date Recorded By Document 11/27/17 13:24 DL [id number] 11/27/17 13:43 DL 11/27/17 13:24 Wound Center Nurse 1 [Ulcer Assessment] #11 left upper thigh -Current Size (cm) - Length 4.7 -Current Size (cm) - Width 2.5 -Current Size (cm) - Depth 1.8 -Total Square Cm 11.75 -Photo Taken No -Exudate Amt Medium (34-66%) -Exudate Type Serosanguineous -Wound Margin Thickened -Granulation Amt Large (67-100%) -Granulation Quality Brielle Red -Necrosis Amt Small (1-33%) -Necrotic Tissue Type Adherent Slough -Structure Exposed N/A -Texture (Amirah-wound Skin Appearance) Scarring -Moisture (Amirah-wound Skin Appearance No Abnormality ) -Color (Amirah-wound Skin Appearance) Rubor -Temperature (Amirah-wound Skin No Abnormality Appearance) (Pt Warm) -Ulcer Cleansing Wound Cleanser -Foul Odor after Cleansing No -Anesthetic Used 4% Lidocaine Solution #7- RT GLUTEAL FOLD Stage III -Current Size (cm) - Length 5 -Current Size (cm) - Width 4 -Current Size (cm) - Depth 3 -Total Square Cm 20 -Photo Taken No -Exudate Amt Medium (34-66%) -Exudate Type Yellow/Green -Wound Margin Distinct, Outline Attached -Granulation Amt Large (67-100%) -Granulation Quality Brielle Red -Necrosis Amt Small (1-33%) -Necrotic Tissue Type Adherent Slough -Structure Exposed N/A -Texture (Amriah-wound Skin Appearance) Scarring -Moisture (Amirah-wound Skin Appearance No Abnormality ) -Color (Amirah-wound Skin Appearance) Rubor -Temperature (Amirah-wound Skin No Abnormality Appearance) (Pt Warm) -Ulcer Cleansing Wound Cleanser -Foul Odor after Cleansing No -Anesthetic Used 4% Lidocaine Solution #10 L buttocks stage IV -Current Size (cm) - Length 0.5 -Current Size (cm) - Width 0.5 -Current Size (cm) - Depth 0.1 -Total Square Cm 0.25 -Exudate Amt Small (1-33%) -Exudate Type Serosanguineous -Wound Margin Thickened -Granulation Amt Small (1-33%) -Granulation Quality Brielle -Necrosis Amt Small (1-33%) -Necrotic Tissue Type Adherent Slough -Structure Exposed N/A -Texture (Amirah-wound Skin Appearance) Scarring -Moisture (Amirah-wound Skin Appearance Maceration ) -Color (Amirah-wound Skin Appearance) No Abnormality -Temperature (Amirah-wound Skin No Abnormality Appearance) (Pt Warm) -Ulcer Cleansing Wound Cleanser -Foul Odor after Cleansing No -Anesthetic Used 4% Lidocaine Solution WC - Nurse 2 - General Ulcer CM Notes Start: 11/27/17 13:23 Freq: Status: Active Protocol: Activity Type Activity Date Activity User E-Sign Co-Sign Detail Recorded Client Recorded Date Recorded By Document 11/27/17 13:55 [id number] 11/27/17 14:12 11/27/17 13:55 Wound Center Nurse 2 [Procedure/Treatment] #11 left upper thigh -Time 14:04 -Correct Patient Yes -Correct Side, Site, Position Yes -Correct Procedure Yes -Procedure Performed Yes -Type of Procedure Debridement -Clinical Debridement Muscle -Post Debridement Size (cm) - Length 6.1 -Post Debridement Size (cm) - Width 3.0 -Post Debridement Size (cm) - Depth 2.1 -Total Square Cm 18.30 -Wound/Ulcer Outcome Not Healed -Ulcer Cleansing Rinsed/ Irrigated with Saline -Foul Odor after Cleansing No -Bioengineered Tissue No -Topical Lidocaine (%) 4 -Bleeding Controlled with Pressure -Other undermining @10 (3.2cm) @ 12 ( 2.0cm) -Treatment Response Procedure Tolerated Well #7- RT GLUTEAL FOLD Stage III -Time 14:04 -Correct Patient Yes -Correct Side, Site, Position Yes -Correct Procedure Yes -Procedure Performed Yes -Type of Procedure Debridement -Clinical Debridement Subcutaneous -Post Debridement Size (cm) - Length 3.8 -Post Debridement Size (cm) - Width 4.8 -Post Debridement Size (cm) - Depth 3.8 -Total Square Cm 18.24 -Wound/Ulcer Outcome Not Healed -Ulcer Cleansing Rinsed/ Irrigated with Saline -Foul Odor after Cleansing No -Bioengineered Tissue No -Topical Lidocaine (%) 4 -Bleeding Controlled with Pressure -Treatment Response Procedure Tolerated Well #10 L buttocks stage IV -Time 14:04 -Correct Patient Yes -Correct Side, Site, Position Yes -Correct Procedure Yes -Procedure Performed Yes -Type of Procedure Debridement -Clinical Debridement Subcutaneous -Post Debridement Size (cm) - Length 0.5 -Post Debridement Size (cm) - Width 0.4 -Post Debridement Size (cm) - Depth 0.4 -Total Square Cm 0.20 -Wound/Ulcer Outcome Not Healed -Ulcer Cleansing Rinsed/ Irrigated with Saline -Foul Odor after Cleansing No -Bioengineered Tissue No -Topical Lidocaine (%) 4 -Bleeding Controlled with Pressure -Treatment Response Procedure Tolerated Well [See Physician Procedure note for Specifics] Pain Scale: 0-10 Numeric [Pain] -Is Patient Pain Free? Yes Psych/Mental Status: Normal Affect, Appropriate Debridement Note Post-Debridement Measurements/Treatment WC - Nurse 2 - General Ulcer CM Notes Start: 11/27/17 13:23 Freq: Status: Active Protocol: Activity Type Activity Date Activity User E-Sign Co-Sign Detail Recorded Client Recorded Date Recorded By Document 11/27/17 13:55 [id number] 11/27/17 14:12 11/27/17 13:55 Wound Center Nurse 2 #11 left upper thigh -Time 14:04 -Correct Patient Yes -Correct Side, Site, Position Yes -Correct Procedure Yes -Procedure Performed Yes -Type of Procedure Debridement -Clinical Debridement Muscle -Post Debridement Size (cm) - Length 6.1 -Post Debridement Size (cm) - Width 3.0 -Post Debridement Size (cm) - Depth 2.1 -Total Square Cm 18.30 -Wound/Ulcer Outcome Not Healed -Ulcer Cleansing Rinsed/ Irrigated with Saline -Foul Odor after Cleansing No -Bioengineered Tissue No -Topical Lidocaine (%) 4 -Bleeding Controlled with Pressure -Other undermining @10 (3.2cm) @ 12 ( 2.0cm) -Treatment Response Procedure Tolerated Well #7- RT GLUTEAL FOLD Stage III -Time 14:04 -Correct Patient Yes -Correct Side, Site, Position Yes -Correct Procedure Yes -Procedure Performed Yes -Type of Procedure Debridement -Clinical Debridement Subcutaneous -Post Debridement Size (cm) - Length 3.8 -Post Debridement Size (cm) - Width 4.8 -Post Debridement Size (cm) - Depth 3.8 -Total Square Cm 18.24 -Wound/Ulcer Outcome Not Healed -Ulcer Cleansing Rinsed/ Irrigated with Saline -Foul Odor after Cleansing No -Bioengineered Tissue No -Topical Lidocaine (%) 4 -Bleeding Controlled with Pressure -Treatment Response Procedure Tolerated Well #10 L buttocks stage IV -Time 14:04 -Correct Patient Yes -Correct Side, Site, Position Yes -Correct Procedure Yes -Procedure Performed Yes -Type of Procedure Debridement -Clinical Debridement Subcutaneous -Post Debridement Size (cm) - Length 0.5 -Post Debridement Size (cm) - Width 0.4 -Post Debridement Size (cm) - Depth 0.4 -Total Square Cm 0.20 -Wound/Ulcer Outcome Not Healed -Ulcer Cleansing Rinsed/ Irrigated with Saline -Foul Odor after Cleansing No -Bioengineered Tissue No -Topical Lidocaine (%) 4 -Bleeding Controlled with Pressure -Treatment Response Procedure Tolerated Well Pain Scale: 0-10 Numeric Is Patient Pain Free? Yes Wound debrided: left upper thigh Laterality: Left Wound Grade/Stage: stage III Type of Debridement: Excisional debridement Anesthesia Used: 4% Lidocaine Solution Depth: Down to and including healthy tissue, in the subcutaneous layer Percentage of wound debrided: 100 Instrument Used: 5mm curette Tissue Removed: yellow slough, devitalized tissue Severity: Necrosis of Muscle Amount of bleeding with debridement: Mild Bleeding Controlled with: Compression and gauze Patient tolerated procedure well - Additional Wound Wound debrided: right gluteal fold stage III Laterality: Right Wound Grade/Stage: stage III Type of Debridement: Excisional debridement Anesthesia Used: 4% Lidocaine Solution Depth: Down to and including healthy tissue, in the subcutaneous layer Percentage of wound debrided: 100 Instrument Used: 5mm curette Tissue Removed: yellow slough, devitalized tissue Severity: Fat Layer Exposed Amount of bleeding with debridement: Mild Bleeding Controlled with: Compression and gauze Patient tolerated procedure: Patient tolerated procedure well - Additional Wound Wound debrided: left ischium/buttock Laterality: Left Wound Grade/Stage: stage IV Type of Debridement: Excisional debridement Anesthesia Used: 4% Lidocaine Solution Depth: Down to and including healthy tissue, in the subcutaneous layer Percentage of wound debrided: 100 Instrument Used: 7mm curette Tissue Removed: yellow slough, devitalized tissue Severity: Fat Layer Exposed Amount of bleeding with debridement: Mild Bleeding Controlled with: Compression and gauze Patient tolerated procedure: Patient tolerated procedure well Assessment/Plan Active Problems Open wound of left thigh (Chronic) traumatic skin tear posterior thigh Diabetes mellitus type 2 in nonobese (Chronic) Pressure ulcer of left buttock, stage 3 (Chronic) Pressure ulcer of right buttock, stage 3 (Chronic) Pressure sore of left ischium, stage 4 (Chronic) Spinal stenosis (Chronic) Assessment: This is a 67-year-old female with bilateral ischial pressure ulcerations. She also has an ulceration of the left buttock/posterior upper thigh. The patient has chosen to forego aggressive surgical management in the past, choosing rather to pursue more conservative treatment modalities. She is currently on a complex care regimen. Offloading measures are to be continued. We are to continue the use of Aquacel Extra topically to each of the ischial pressure ulcerations. Optimization of her diabetes mellitus has been recommended. Optimizing nutrition has also been reinforced. The patient does not wish to consider a more aggressive approach which would involve surgical options. She has rebuffed the idea of consultation with a plastic surgeon. Recent CT scan of the pelvis, performed 08/05/2017, reveals no evidence of osteomyelitis. Plan: Continue conservative/complex care plan for all wounds. No current osteomyelitis present. Will continue using Allevyn to help protect her wounds from moisture of urine. No improvement in measurements of wounds. Will return in 2 weeks for reassessment. Wound vac with reggie was denied by insurance. Optimizing nutrition and diabetes control has been recommended. Offloading measures and frequent repositioning are to continue. Suprapubic catheter removed and she continues to have incontinence that is affecting the wounds. Patient has been encouraged to increase protein intake to aid in wound healing and maintain good control of diabetes. Discussed offloading importance in wound healing. We are to continue Aquacel for all the ischial/buttock pressure ulcerations. F/U in 2 weeks.
[2017-12-11 13:44] VITALS: BP 141/74; PULSE 103; RESP 16; TEMP 36.9
--- NOTE | 2017-12-11 21:01 | PCM.WC.PN ---
(1) Open wound of left thigh Status: Chronic Current Visit: Yes Qualifiers: Encounter type: subsequent encounter Code(s): S71.102A - Unspecified open wound, left thigh, initial encounter Comment: traumatic skin tear posterior thigh (2) Diabetes mellitus type 2 in nonobese Status: Chronic Current Visit: Yes Code(s): E11.9 - Type 2 diabetes mellitus without complications (3) Pressure ulcer of left buttock, stage 3 Status: Chronic Current Visit: Yes Code(s): L89.323 - Pressure ulcer of left buttock, stage 3 (4) Pressure ulcer of right buttock, stage 3 Status: Chronic Current Visit: Yes Code(s): L89.313 - Pressure ulcer of right buttock, stage 3 (5) Pressure sore of left ischium, stage 4 Status: Chronic Current Visit: Yes Code(s): L89.324 - Pressure ulcer of left buttock, stage 4 (6) Spinal stenosis Status: Chronic Current Visit: Yes Qualifiers: Spinal region: lumbar Neurogenic claudication status: unspecified Qualified Code(s): M48.061 - Spinal stenosis, lumbar region without neurogenic claudication Code(s): M48.00 - Spinal stenosis, site unspecified Type of Wound Date of Service: 12/11/17 Chief Complaint: Left ischial pressure ulcer, Stage IV. Right ischial pressure ulcer, stage III. Spinal stenosis. Ulceration of left buttock. History of Wound: Patient is a 67-year-old female who has a chronic pressure ulcer of her left ischium and right ischium. Patient was initially hospitalized for a swelling and redness of her right leg approximately 2014. This was evaluated for cellulitis. She was seen in consultation by infectious disease and plastic surgery. The patient was taken to surgery for an operative debridement of her chronic left ischial ulcer, underwent wound vac treatment and IV antibiotics. She was abruptly released from the F after only a few weeks, before end of therapy. She had finished her IV antibiotics for Grp A strep osteomyelitis at home and continued with PT at home as well. She has decided to go with the conservative care route since she feels that her quality of life is more important than healing out the wound but had continued to keep the wound vac. The wound vac was discontinued by her insurance for failure to show improvement in the size of her wound. She has been seen twice monthly for conservative/palliative/complex care of her bilateral ischial pressure ulcers. She lives with her brother and [id number], who help dress her ulcers/wounds. She has recently developed a skin tear/abrasion of the left buttock/upper posterior thigh. Current management involves the use of collagenase Santyl topically to the skin tear on the left posterior upper thigh, and Aquacel with respect to the ischial pressure ulcerations. The patient has recently completed courses of antibiotics which have included Augmentin and clindamycin. In January 2017, she underwent treatment after developing pressure ulcers which occurred from urinary incontinence issues associated with a chronic UTI and leakage of her catheter. She developed another pressure ulcer of her right buttock on or around April 20, 2017, and presented for treatment of this area as well as continued treatment of her left ischial pressure ulcer. Denies fever, chills or increased pain. The patient indicates that she sleeps on an air loss mattress, and possesses a Roho cushion for her wheelchair. She has previously been counseled as to the importance of offloading measures. She also has been taking Sigifredo protein shakes, and is aware that optimizing glycemic control is advisable. Review of recent laboratory studies reveals a protein of 8.6, albumin 3.2, and hemoglobin A1c of 6.9, on June 03, 2017. Patient is essentially nonambulatory, and uses a walker for transition from bed to chair. She is severely deconditioned. Progress of Wound: Patient continues with conservative care management of left ischium - aquacel dressing to wound daily. No concerns for infection in this pressure ulcer at this time. The pressure ulcer of her right gluteal fold is about the same this week but tissue and wound bed still look healthy. Her left upper thigh ulcer is unchanged and is undermining close to the left ischium ulcer. She continues to have problems with incontinence of urine and her urologist removed her suprapubic catheter and discussed referral for possible diverting bladder surgery. She is unsure as to whether she would like to pursue this option. She continues to sit in her wheelchair frequently for long periods of time but has tried to offload more. - Physical Exam Vital Signs Temp Pulse Resp BP 98.4 F 103 H 16 141/74 H 12/11/17 13:44 12/11/17 13:44 12/11/17 13:44 12/11/17 13:44 General: Alert, Oriented x3, Cooperative, No apparent distress HEENT: Atraumatic, Normocephalic Oral: Moist Mucosa Abdomen: Obese Skin: Ulcer/ Wound Wound Measurements and Assessment WC - Nurse 1 - General Ulcer Measurement Start: 11/27/17 13:23 Freq: Status: Active Protocol: Activity Type Activity Date Activity User E-Sign Co-Sign Detail Recorded Client Recorded Date Recorded By Document 12/11/17 13:44 [id number] 12/11/17 13:48 12/11/17 13:44 Wound Center Nurse 1 [Ulcer Assessment] #11 left upper thigh -Combined with other wound No -Current Size (cm) - Length 0.1 -Current Size (cm) - Width 0.1 -Current Size (cm) - Depth 0.7 -Total Square Cm 0.01 -Photo Taken No -Epithelialization None Present -Tunneling No -Undermining/Tunneling No -Circular Undermining No -Exudate Amt None Present (0 %) -Exudate Type Serosanguineous -Wound Margin Distinct, Outline Attached -Granulation Amt Medium (34-66%) -Granulation Quality Pale -Slough/Fibrin Yes -Necrosis Amt Medium (34-66%) -Necrotic Tissue Type Adherent Slough -Texture (Amirah-wound Skin Appearance) No Abnormality Assessed -Moisture (Amirah-wound Skin Appearance Maceration ) -Color (Amirah-wound Skin Appearance) No Abnormality Assessed -Temperature (Amirah-wound Skin No Abnormality Appearance) (Pt Warm) -Tenderness on Palpation (Amirah-wound No Skin Appearance) -Ulcer Cleansing Wound Cleanser -Foul Odor after Cleansing No -Anesthetic Used 5% Lidocaine Gel #7- RT GLUTEAL FOLD Stage III -Combined with other wound No -Current Size (cm) - Length 5.1 -Current Size (cm) - Width 3.2 -Current Size (cm) - Depth 3.3 -Total Square Cm 16.32 -Photo Taken No -Epithelialization None Present -Tunneling No -Undermining/Tunneling No -Circular Undermining No -Exudate Amt Medium (34-66%) -Exudate Type Serosanguineous -Wound Margin Distinct, Outline Attached -Granulation Amt Medium (34-66%) -Granulation Quality [place] Red -Slough/Fibrin Yes -Necrosis Amt None Present (0 %) -Necrotic Tissue Type Adherent Slough -Temperature (Amirah-wound Skin No Abnormality Appearance) (Pt Warm) -Tenderness on Palpation (Amirah-wound No Skin Appearance) -Ulcer Cleansing Wound Cleanser -Foul Odor after Cleansing No -Anesthetic Used 5% Lidocaine Gel #10 L buttocks stage IV -Combined with other wound No -Current Size (cm) - Length 3.4 -Current Size (cm) - Width 1.7 -Current Size (cm) - Depth 2.6 -Total Square Cm 5.78 -Photo Taken No -Epithelialization None Present -Tunneling No -Undermining/Tunneling No -Circular Undermining No -Exudate Amt Medium (34-66%) -Exudate Type Serosanguineous -Wound Margin Distinct, Outline Attached -Granulation Amt Medium (34-66%) -Granulation Quality [place] Red -Slough/Fibrin Yes -Necrosis Amt None Present (0 %) -Necrotic Tissue Type Adherent Slough -Structure Exposed None/Limited to Skin Breakdown -Texture (Amirah-wound Skin Appearance) No Abnormality Assessed -Moisture (Amirah-wound Skin Appearance No Abnormality ) Assessed -Color (Amirah-wound Skin Appearance) No Abnormality Assessed -Temperature (Amirah-wound Skin No Abnormality Appearance) (Pt Warm) -Tenderness on Palpation (Amirah-wound No Skin Appearance) -Ulcer Cleansing Wound Cleanser -Foul Odor after Cleansing No -Anesthetic Used 5% Lidocaine Gel [Edema Assessment] -Lower Limb Edema Present NA - Nurse 2 - General Ulcer CM Notes Start: 11/27/17 13:23 Freq: Status: Active Protocol: Activity Type Activity Date Activity User E-Sign Co-Sign Detail Recorded Client Recorded Date Recorded By Document 12/11/17 14:19 [id number] 12/11/17 14:29 12/11/17 14:19 Wound Center Nurse 2 [Procedure/Treatment] #11 left upper thigh -Time 14:21 -Correct Patient Yes -Correct Side, Site, Position Yes -Correct Procedure Yes -Procedure Performed Yes -Type of Procedure Debridement -Clinical Debridement Subcutaneous -Post Debridement Size (cm) - Length 3.2 -Post Debridement Size (cm) - Width 2.2 -Post Debridement Size (cm) - Depth 2.0 -Total Square Cm 7.04 -Wound/Ulcer Outcome Not Healed -Ulcer Cleansing Rinsed/ Irrigated with Saline -Foul Odor after Cleansing No -Bioengineered Tissue No -Topical Lidocaine (%) 5 -Bleeding Controlled with Pressure -Other UNDERMINING@10 (3.2CM) @ 12 (2 .0CM) -Treatment Response Procedure Tolerated Well #7- RT GLUTEAL FOLD Stage III -Time 14:21 -Correct Patient Yes -Correct Side, Site, Position Yes -Correct Procedure Yes -Procedure Performed Yes -Type of Procedure Debridement -Clinical Debridement Subcutaneous -Post Debridement Size (cm) - Length 4.8 -Post Debridement Size (cm) - Width 4.0 -Post Debridement Size (cm) - Depth 3.7 -Total Square Cm 19.20 -Wound/Ulcer Outcome Not Healed -Ulcer Cleansing Rinsed/ Irrigated with Saline -Foul Odor after Cleansing No -Bioengineered Tissue No -Topical Lidocaine (%) 5 -Bleeding Controlled with Pressure -Treatment Response Procedure Tolerated Well #10 L buttocks stage IV -Time 14:21 -Correct Patient Yes -Correct Side, Site, Position Yes -Correct Procedure Yes -Procedure Performed Yes -Type of Procedure Debridement -Clinical Debridement Subcutaneous -Post Debridement Size (cm) - Length 0.5 -Post Debridement Size (cm) - Width 0.2 -Post Debridement Size (cm) - Depth 0.3 -Total Square Cm 0.10 -Wound/Ulcer Outcome Not Healed -Ulcer Cleansing Rinsed/ Irrigated with Saline -Foul Odor after Cleansing No -Bioengineered Tissue No -Topical Lidocaine (%) 5 -Bleeding Controlled with Pressure -Treatment Response Procedure Tolerated Well [See Physician Procedure note for Specifics] Pain Scale: 0-10 Numeric [Pain] -Is Patient Pain Free? Yes Psych/Mental Status: Normal Affect, Appropriate Debridement Note Post-Debridement Measurements/Treatment WC - Nurse 2 - General Ulcer CM Notes Start: 11/27/17 13:23 Freq: Status: Active Protocol: Activity Type Activity Date Activity User E-Sign Co-Sign Detail Recorded Client Recorded Date Recorded By Document 11/27/17 13:55 TM [id number] 11/27/17 14:12 TM Document 12/11/17 14:19 TM [id number] 12/11/17 14:29 TM 11/27/17 12/11/17 13:55 14:19 Wound Center Nurse 2 #11 left upper thigh -Time 14:04 14:21 -Correct Patient Yes Yes -Correct Side, Site, Position Yes Yes -Correct Procedure Yes Yes -Procedure Performed Yes Yes -Type of Procedure Debridement Debridement -Clinical Debridement Muscle Subcutaneous -Post Debridement Size (cm) - Length 6.1 3.2 -Post Debridement Size (cm) - Width 3.0 2.2 -Post Debridement Size (cm) - Depth 2.1 2.0 -Total Square Cm 18.30 7.04 -Wound/Ulcer Outcome Not Healed Not Healed -Ulcer Cleansing Rinsed/ Rinsed/ Irrigated with Irrigated with Saline Saline -Foul Odor after Cleansing No No -Bioengineered Tissue No No -Topical Lidocaine (%) 4 5 -Bleeding Controlled with Pressure Pressure -Other undermining @10 UNDERMINING@10 (3.2cm) @ 12 ( (3.2CM) @ 12 (2 2.0cm) .0CM) -Treatment Response Procedure Procedure Tolerated Well Tolerated Well #7- RT GLUTEAL FOLD Stage III -Time 14: 14:21 -Correct Patient Yes Yes -Correct Side, Site, Position Yes Yes -Correct Procedure Yes Yes -Procedure Performed Yes Yes -Type of Procedure Debridement Debridement -Clinical Debridement Subcutaneous Subcutaneous -Post Debridement Size (cm) - Length 3.8 4.8 -Post Debridement Size (cm) - Width 4.8 4.0 -Post Debridement Size (cm) - Depth 3.8 3.7 -Total Square Cm 18.24 19.20 -Wound/Ulcer Outcome Not Healed Not Healed -Ulcer Cleansing Rinsed/ Rinsed/ Irrigated with Irrigated with Saline Saline -Foul Odor after Cleansing No No -Bioengineered Tissue No No -Topical Lidocaine (%) 4 5 -Bleeding Controlled with Pressure Pressure -Treatment Response Procedure Procedure Tolerated Well Tolerated Well #10 L buttocks stage IV -Time 14:04 14:21 -Correct Patient Yes Yes -Correct Side, Site, Position Yes Yes -Correct Procedure Yes Yes -Procedure Performed Yes Yes -Type of Procedure Debridement Debridement -Clinical Debridement Subcutaneous Subcutaneous -Post Debridement Size (cm) - Length 0.5 0.5 -Post Debridement Size (cm) - Width 0.4 0.2 -Post Debridement Size (cm) - Depth 0.4 0.3 -Total Square Cm 0.20 0.10 -Wound/Ulcer Outcome Not Healed Not Healed -Ulcer Cleansing Rinsed/ Rinsed/ Irrigated with Irrigated with Saline Saline -Foul Odor after Cleansing No No -Bioengineered Tissue No No -Topical Lidocaine (%) 4 5 -Bleeding Controlled with Pressure Pressure -Treatment Response Procedure Procedure Tolerated Well Tolerated Well Pain Scale: 0-10 Numeric Is Patient Pain Free? Yes Yes Wound debrided: left upper thigh Laterality: Left Wound Grade/Stage: stage III Type of Debridement: Excisional debridement Anesthesia Used: 4% Lidocaine Solution Depth: Down to and including healthy tissue, in the subcutaneous layer Percentage of wound debrided: 100 Instrument Used: 5mm curette Tissue Removed: devitalized tissue, slough Severity: Fat Layer Exposed Amount of bleeding with debridement: Mild Bleeding Controlled with: Compression and gauze Patient tolerated procedure well - Additional Wound Wound debrided: right gluteal fold stage III Laterality: Right Wound Grade/Stage: stage III Type of Debridement: Excisional debridement Anesthesia Used: 4% Lidocaine Solution Depth: Down to and including healthy tissue, in the subcutaneous layer Percentage of wound debrided: 100 Instrument Used: 5mm curette Tissue Removed: devitalized tissue, slough Severity: Fat Layer Exposed Amount of bleeding with debridement: Mild Bleeding Controlled with: Compression and gauze Patient tolerated procedure: Patient tolerated procedure well - Additional Wound Wound debrided: left buttock stage IV Laterality: Left Wound Grade/Stage: stage IV Type of Debridement: Excisional debridement Anesthesia Used: 4% Lidocaine Solution Depth: Down to and including healthy tissue, in the subcutaneous layer Percentage of wound debrided: 100 Instrument Used: 5mm curette Tissue Removed: devitalized tissue, slough Severity: Fat Layer Exposed Amount of bleeding with debridement: Mild Bleeding Controlled with: Compression and gauze Patient tolerated procedure: Patient tolerated procedure well Assessment/Plan Active Problems Open wound of left thigh (Chronic) traumatic skin tear posterior thigh Diabetes mellitus type 2 in nonobese (Chronic) Pressure ulcer of left buttock, stage 3 (Chronic) Pressure ulcer of right buttock, stage 3 (Chronic) Pressure sore of left ischium, stage 4 (Chronic) Spinal stenosis (Chronic) Assessment: This is a 67-year-old female with bilateral ischial pressure ulcerations. She also has an ulceration of the left buttock/posterior upper thigh. The patient has chosen to forego aggressive surgical management in the past, choosing rather to pursue more conservative treatment modalities. She is currently on a complex care regimen. Offloading measures are to be continued. We are to continue the use of Aquacel Extra topically to each of the ischial pressure ulcerations. Optimization of her diabetes mellitus has been recommended. Optimizing nutrition has also been reinforced. The patient does not wish to consider a more aggressive approach which would involve surgical options. She has rebuffed the idea of consultation with a plastic surgeon. Recent CT scan of the pelvis, performed 08/05/2017, reveals no evidence of osteomyelitis. Plan: Continue conservative/complex care plan for all wounds. No current osteomyelitis present. Will continue using Allevyn to help protect her wounds from moisture of urine. No improvement in measurements of wounds. Will return in 2 weeks for reassessment. Wound vac with reggie was denied by insurance. Optimizing nutrition and diabetes control has been recommended. Offloading measures and frequent repositioning are to continue. Suprapubic catheter removed and she continues to have incontinence that is affecting the wounds. Patient has been encouraged to increase protein intake to aid in wound healing and maintain good control of diabetes. Discussed offloading importance in wound healing. We are to continue Aquacel for all the ischial/buttock pressure ulcerations. F/U in 2 weeks.
== END 2017-12-18 23:59 ==
LOC: WC 13:30
PROVIDERS: Family Provider Family Medicine; PCP Family Medicine; Visit Provider Family Medicine
DX: E11.622 Type 2 diabetes mellitus with other skin ulcer (principal); L89.224 Pressure ulcer of left hip, stage 4; L89.213 Pressure ulcer of right hip, stage 3; L89.323 Pressure ulcer of left buttock, stage 3; M48.061 Spinal stenosis, lumbar region without neurogenic claudication; R32 Unspecified urinary incontinence
CPT/HCPCS: 11042; 11043; 11045

== ENCOUNTER 2018-01-15 13:00 | Outpatient (RCR) | payer MEDICAID, SELFPAY ==
[2017-12-19 00:45] VITALS: BP 141/74; PULSE 103; RESP 16; TEMP 36.9
[2017-12-25 13:22] VITALS: BP 126/69; PULSE 110; RESP 16; TEMP 36.9
--- NOTE | 2017-12-25 17:42 | PCM.WC.PN ---
(1) Neurogenic bladder Status: Chronic Current Visit: Yes Code(s): N31.9 - Neuromuscular dysfunction of bladder, unspecified (2) Diabetes mellitus type 2 in nonobese Status: Chronic Current Visit: Yes Code(s): E11.9 - Type 2 diabetes mellitus without complications (3) Pressure ulcer of left buttock, stage 3 Status: Chronic Current Visit: Yes Code(s): L89.323 - Pressure ulcer of left buttock, stage 3 Comment: left lower buttock/upper thigh area (4) Pressure ulcer of right buttock, stage 3 Status: Chronic Current Visit: Yes Code(s): L89.313 - Pressure ulcer of right buttock, stage 3 (5) Pressure sore of left ischium, stage 4 Status: Chronic Current Visit: Yes Code(s): L89.324 - Pressure ulcer of left buttock, stage 4 (6) Physical deconditioning Status: Chronic Current Visit: Yes Code(s): R53.81 - Other malaise (7) Spinal stenosis Status: Chronic Current Visit: Yes Qualifiers: Spinal region: lumbosacral Qualified Code(s): M48.07 - Spinal stenosis, lumbosacral region Code(s): M48.00 - Spinal stenosis, site unspecified Type of Wound Date of Service: 12/25/17 Chief Complaint: Left ischial pressure ulcer, Stage IV. Right ischial pressure ulcer, stage III. Spinal stenosis. Ulceration of left buttock. History of Wound: Patient is a 67-year-old female who has a chronic pressure ulcer of her left ischium and right ischium. Patient was initially hospitalized for a swelling and redness of her right leg approximately 2014. This was evaluated for cellulitis. She was seen in consultation by infectious disease and plastic surgery. The patient was taken to surgery for an operative debridement of her chronic left ischial ulcer, underwent wound vac treatment and IV antibiotics. She was abruptly released from the F after only a few weeks, before end of therapy. She had finished her IV antibiotics for Grp A strep osteomyelitis at home and continued with PT at home as well. She has decided to go with the conservative care route since she feels that her quality of life is more important than healing out the wound but had continued to keep the wound vac. The wound vac was discontinued by her insurance for failure to show improvement in the size of her wound. She has been seen twice monthly for conservative/palliative/complex care of her bilateral ischial pressure ulcers. She lives with her brother and [id number], who help dress her ulcers/wounds. She has recently developed a skin tear/abrasion of the left buttock/upper posterior thigh. Current management involves the use of collagenase Santyl topically to the skin tear on the left posterior upper thigh, and Aquacel with respect to the ischial pressure ulcerations. The patient has recently completed courses of antibiotics which have included Augmentin and clindamycin. In January 2017, she underwent treatment after developing pressure ulcers which occurred from urinary incontinence issues associated with a chronic UTI and leakage of her catheter. She developed another pressure ulcer of her right buttock on or around April 20, 2017, and presented for treatment of this area as well as continued treatment of her left ischial pressure ulcer. Denies fever, chills or increased pain. The patient indicates that she sleeps on an air loss mattress, and possesses a Roho cushion for her wheelchair. She has previously been counseled as to the importance of offloading measures. She also has been taking Sigifredo protein shakes, and is aware that optimizing glycemic control is advisable. Review of recent laboratory studies reveals a protein of 8.6, albumin 3.2, and hemoglobin A1c of 6.9, on June 03, 2017. Patient is essentially nonambulatory, and uses a walker for transition from bed to chair. She is severely deconditioned. Progress of Wound: Patient continues with conservative care management of left ischium - aquacel dressing to wound daily. No concerns for infection in this pressure ulcer at this time. The pressure ulcer of her right gluteal fold is about the same this week but tissue and wound bed still look healthy. Her left upper thigh ulcer is unchanged and is undermining close to the left ischium ulcer. She has been having improvement with urinary incontinence and still has chronic roach catheter. She continues to sit in her wheelchair frequently for long periods of time but has tried to offload more. - Physical Exam Vital Signs Temp Pulse Resp BP 98.4 F 110 H 16 126/69 H 12/25/17 13:22 12/25/17 13:22 12/25/17 13:22 12/25/17 13:22 General: Alert, Oriented x3, Cooperative, No apparent distress HEENT: Atraumatic, Normocephalic Oral: Moist Mucosa Abdomen: Obese Skin: Ulcer/ Wound Wound Measurements and Assessment WC - Nurse 1 - General Ulcer Measurement Start: 12/25/17 13:22 Freq: Status: Active Protocol: Activity Type Activity Date Activity User E-Sign Co-Sign Detail Recorded Client Recorded Date Recorded By Document 12/25/17 13:22 [id number] 12/25/17 13:25 12/25/17 13:22 Wound Center Nurse 1 [Ulcer Assessment] #11 left upper thigh -Combined with other wound No -Current Size (cm) - Length 4.6 -Current Size (cm) - Width 4.7 -Current Size (cm) - Depth 2.6 -Total Square Cm 21.62 -Photo Taken No -Epithelialization Small 1-33% -Tunneling No -Undermining/Tunneling No -Circular Undermining No -Exudate Amt Medium (34-66%) -Exudate Type Serosanguineous -Wound Margin Thickened -Granulation Amt Medium (34-66%) -Granulation Quality Pale [place] -Slough/Fibrin Yes -Necrosis Amt None Present (0 %) -Necrotic Tissue Type Adherent Slough -Texture (Amirah-wound Skin Appearance) No Abnormality Assessed -Moisture (Amirah-wound Skin Appearance No Abnormality ) Assessed -Color (Amirah-wound Skin Appearance) No Abnormality Assessed -Temperature (Amirah-wound Skin No Abnormality Appearance) (Pt Warm) -Tenderness on Palpation (Amirah-wound No Skin Appearance) -Ulcer Cleansing Wound Cleanser -Foul Odor after Cleansing No -Anesthetic Used 4% Lidocaine Solution #7- RT GLUTEAL FOLD Stage III -Combined with other wound No -Current Size (cm) - Length 0.1 -Current Size (cm) - Width 0.1 -Current Size (cm) - Depth 0.1 -Total Square Cm 0.01 -Photo Taken No -Epithelialization None Present -Tunneling No -Undermining/Tunneling No -Circular Undermining No -Moisture (Amirah-wound Skin Appearance Maceration ) -Color (Amirah-wound Skin Appearance) No Abnormality Assessed -Temperature (Amirah-wound Skin No Abnormality Appearance) (Pt Warm) -Tenderness on Palpation (Amirah-wound No Skin Appearance) -Ulcer Cleansing Wound Cleanser -Foul Odor after Cleansing No -Anesthetic Used 4% Lidocaine Solution #10 L buttocks stage IV -Combined with other wound No -Current Size (cm) - Length 2.9 -Current Size (cm) - Width 2.5 -Current Size (cm) - Depth 2.3 -Total Square Cm 7.25 -Photo Taken No -Epithelialization None Present -Tunneling No -Undermining/Tunneling Yes -Undermining/Tunneling Starts (O' 6 clock) -Undermining/Tunneling Ends (O'clock) 8 -Circular Undermining No -Exudate Amt Small (1-33%) -Exudate Type Serosanguineous -Wound Margin Distinct, Outline Attached -Granulation Amt Medium (34-66%) -Granulation Quality Pale [place] -Slough/Fibrin Yes -Necrosis Amt None Present (0 %) -Necrotic Tissue Type Adherent Slough -Structure Exposed None/Limited to Skin Breakdown -Texture (Amirah-wound Skin Appearance) Assessed Localized Edema -Moisture (Amirah-wound Skin Appearance No Abnormality ) Assessed -Color (Amirah-wound Skin Appearance) No Abnormality Assessed -Temperature (Amirah-wound Skin No Abnormality Appearance) (Pt Warm) -Tenderness on Palpation (Amirah-wound No Skin Appearance) -Ulcer Cleansing Wound Cleanser -Foul Odor after Cleansing No -Anesthetic Used 4% Lidocaine Solution [Edema Assessment] -Lower Limb Edema Present NA WC - Nurse 2 - General Ulcer CM Notes Start: 12/25/17 13:22 Freq: Status: Active Protocol: Activity Type Activity Date Activity User E-Sign Co-Sign Detail Recorded Client Recorded Date Recorded By Document 12/25/17 14:22 [id number] 12/25/17 14:26 12/25/17 14:22 Wound Center Nurse 2 [Procedure/Treatment] #11 left upper thigh -Time 14:22 -Correct Patient Yes -Correct Side, Site, Position Yes -Correct Procedure Yes -Procedure Performed Yes -Type of Procedure Debridement -Clinical Debridement Subcutaneous -Post Debridement Size (cm) - Length 3.3 -Post Debridement Size (cm) - Width 2.1 -Post Debridement Size (cm) - Depth 1.7 -Total Square Cm 6.93 -Wound/Ulcer Outcome Not Healed -Ulcer Cleansing Rinsed/ Irrigated with Saline -Foul Odor after Cleansing No -Bioengineered Tissue No -Topical Lidocaine (%) 4 -Bleeding Controlled with Pressure -Other UNDERMINING @ 10 (2.0CM) @ 12 (3.2CM) -Treatment Response Procedure Tolerated Well #7- RT GLUTEAL FOLD Stage III -Time 14:23 -Correct Patient Yes -Correct Side, Site, Position Yes -Correct Procedure Yes -Procedure Performed Yes -Type of Procedure Debridement -Clinical Debridement Subcutaneous -Post Debridement Size (cm) - Length 4.5 -Post Debridement Size (cm) - Width 4.2 -Post Debridement Size (cm) - Depth 3.7 -Total Square Cm 18.90 -Wound/Ulcer Outcome Not Healed -Ulcer Cleansing Rinsed/ Irrigated with Saline -Foul Odor after Cleansing No -Bioengineered Tissue No -Topical Lidocaine (%) 4 -Bleeding Controlled with Pressure -Treatment Response Procedure Tolerated Well #10 L buttocks stage IV -Time 14:23 -Correct Patient Yes -Correct Side, Site, Position Yes -Correct Procedure Yes -Procedure Performed Yes -Type of Procedure Debridement -Clinical Debridement Subcutaneous -Post Debridement Size (cm) - Length 0.4 -Post Debridement Size (cm) - Width 0.2 -Post Debridement Size (cm) - Depth 0.4 -Total Square Cm 0.08 -Wound/Ulcer Outcome Not Healed -Ulcer Cleansing Rinsed/ Irrigated with Saline -Foul Odor after Cleansing No -Bioengineered Tissue No -Topical Lidocaine (%) 4 -Bleeding Controlled with Pressure -Treatment Response Procedure Tolerated Well [See Physician Procedure note for Specifics] Pain Scale: 0-10 Numeric [Pain] -Is Patient Pain Free? Yes Psych/Mental Status: Normal Affect, Appropriate Debridement Note Post-Debridement Measurements/Treatment WC - Nurse 2 - General Ulcer CM Notes Start: 12/25/17 13:22 Freq: Status: Active Protocol: Activity Type Activity Date Activity User E-Sign Co-Sign Detail Recorded Client Recorded Date Recorded By Document 12/25/17 14:22 [id number] 12/25/17 14:26 12/25/17 14:22 Wound Center Nurse 2 #11 left upper thigh -Time 14:22 -Correct Patient Yes -Correct Side, Site, Position Yes -Correct Procedure Yes -Procedure Performed Yes -Type of Procedure Debridement -Clinical Debridement Subcutaneous -Post Debridement Size (cm) - Length 3.3 -Post Debridement Size (cm) - Width 2.1 -Post Debridement Size (cm) - Depth 1.7 -Total Square Cm 6.93 -Wound/Ulcer Outcome Not Healed -Ulcer Cleansing Rinsed/ Irrigated with Saline -Foul Odor after Cleansing No -Bioengineered Tissue No -Topical Lidocaine (%) 4 -Bleeding Controlled with Pressure -Other UNDERMINING @ 10 (2.0CM) @ 12 (3.2CM) -Treatment Response Procedure Tolerated Well #7- RT GLUTEAL FOLD Stage III -Time 14:23 -Correct Patient Yes -Correct Side, Site, Position Yes -Correct Procedure Yes -Procedure Performed Yes -Type of Procedure Debridement -Clinical Debridement Subcutaneous -Post Debridement Size (cm) - Length 4.5 -Post Debridement Size (cm) - Width 4.2 -Post Debridement Size (cm) - Depth 3.7 -Total Square Cm 18.90 -Wound/Ulcer Outcome Not Healed -Ulcer Cleansing Rinsed/ Irrigated with Saline -Foul Odor after Cleansing No -Bioengineered Tissue No -Topical Lidocaine (%) 4 -Bleeding Controlled with Pressure -Treatment Response Procedure Tolerated Well #10 L buttocks stage IV -Time 14:23 -Correct Patient Yes -Correct Side, Site, Position Yes -Correct Procedure Yes -Procedure Performed Yes -Type of Procedure Debridement -Clinical Debridement Subcutaneous -Post Debridement Size (cm) - Length 0.4 -Post Debridement Size (cm) - Width 0.2 -Post Debridement Size (cm) - Depth 0.4 -Total Square Cm 0.08 -Wound/Ulcer Outcome Not Healed -Ulcer Cleansing Rinsed/ Irrigated with Saline -Foul Odor after Cleansing No -Bioengineered Tissue No -Topical Lidocaine (%) 4 -Bleeding Controlled with Pressure -Treatment Response Procedure Tolerated Well Pain Scale: 0-10 Numeric Is Patient Pain Free? Yes Wound debrided: left upper thigh Laterality: Left Wound Grade/Stage: stage III Type of Debridement: Excisional debridement Anesthesia Used: 4% Lidocaine Solution Depth: Down to and including healthy tissue, in the subcutaneous layer Percentage of wound debrided: 100 Instrument Used: 5mm curette Tissue Removed: yellow slough, devitalized tissue Severity: Fat Layer Exposed Amount of bleeding with debridement: Mild Bleeding Controlled with: Compression and gauze Patient tolerated procedure well - Additional Wound Wound debrided: right gluteal fold stage III Laterality: Right Wound Grade/Stage: stage III Type of Debridement: Excisional debridement Anesthesia Used: 4% Lidocaine Solution Depth: Down to and including healthy tissue, in the subcutaneous layer Percentage of wound debrided: 100 Instrument Used: 5mm curette Tissue Removed: yellow slough, devitalized tissue Severity: Fat Layer Exposed Amount of bleeding with debridement: Mild Bleeding Controlled with: Compression and gauze Patient tolerated procedure: Patient tolerated procedure well - Additional Wound Wound debrided: left buttock stage IV Laterality: Left Wound Grade/Stage: stage IV Type of Debridement: Excisional debridement Anesthesia Used: 4% Lidocaine Solution Depth: Down to and including healthy tissue, in the subcutaneous layer Percentage of wound debrided: 100 Instrument Used: 5mm curette Tissue Removed: yellow slough, devitalized tissue Severity: Fat Layer Exposed Amount of bleeding with debridement: Mild Bleeding Controlled with: Compression and gauze Patient tolerated procedure: Patient tolerated procedure well Assessment/Plan Active Problems Neurogenic bladder (Chronic) Diabetes mellitus type 2 in nonobese (Chronic) Pressure ulcer of left buttock, stage 3 (Chronic) left lower buttock/upper thigh area Pressure ulcer of right buttock, stage 3 (Chronic) Pressure sore of left ischium, stage 4 (Chronic) Physical deconditioning (Chronic) Spinal stenosis (Chronic) Assessment: This is a 67-year-old female with bilateral ischial pressure ulcerations. She also has an ulceration of the left buttock/posterior upper thigh. The patient has chosen to forego aggressive surgical management in the past, choosing rather to pursue more conservative treatment modalities. She is currently on a complex care regimen. Offloading measures are to be continued. We are to continue the use of Aquacel Extra topically to each of the ischial pressure ulcerations. Optimization of her diabetes mellitus has been recommended. Optimizing nutrition has also been reinforced. The patient does not wish to consider a more aggressive approach which would involve surgical options. She has rebuffed the idea of consultation with a plastic surgeon. Recent CT scan of the pelvis, performed 08/05/2017, reveals no evidence of osteomyelitis. Plan: Continue conservative/complex care plan for all wounds. No current osteomyelitis present. Will continue using Allevyn to help protect her wounds from moisture of urine. Minimal improvement in measurements of wounds. Will return in 2 weeks for reassessment. Wound vac with reggie was denied by insurance. Optimizing nutrition and diabetes control has been recommended. Offloading measures and frequent repositioning are to continue. Patient has been encouraged to increase protein intake to aid in wound healing and maintain good control of diabetes. Discussed offloading importance in wound healing. We are to continue Aquacel for all the ischial/buttock pressure ulcerations. F/U in 2 weeks.
[2018-01-15 12:58] VITALS: BP 126/81; PULSE 106; RESP 18; TEMP 36.2
--- NOTE | 2018-01-15 18:14 | PCM.WC.PN ---
(1) Neurogenic bladder Status: Chronic Current Visit: Yes Code(s): N31.9 - Neuromuscular dysfunction of bladder, unspecified (2) Diabetes mellitus type 2 in nonobese Status: Chronic Current Visit: Yes Code(s): E11.9 - Type 2 diabetes mellitus without complications (3) Pressure ulcer of left buttock, stage 3 Status: Chronic Current Visit: Yes Code(s): L89.323 - Pressure ulcer of left buttock, stage 3 Comment: left lower buttock/upper thigh area (4) Pressure ulcer of right buttock, stage 3 Status: Chronic Current Visit: Yes Code(s): L89.313 - Pressure ulcer of right buttock, stage 3 (5) Pressure sore of left ischium, stage 4 Status: Chronic Current Visit: Yes Code(s): L89.324 - Pressure ulcer of left buttock, stage 4 (6) Physical deconditioning Status: Chronic Current Visit: Yes Code(s): R53.81 - Other malaise (7) Spinal stenosis Status: Chronic Current Visit: Yes Qualifiers: Spinal region: lumbosacral Qualified Code(s): M48.07 - Spinal stenosis, lumbosacral region Code(s): M48.00 - Spinal stenosis, site unspecified Type of Wound Chief Complaint: Left ischial pressure ulcer, Stage IV. Right ischial pressure ulcer, stage III. Spinal stenosis. Ulceration of posterior left upper thigh, stage III. History of Wound: Patient is a 67-year-old female who has a chronic pressure ulcer of her left ischium and right ischium. Patient was initially hospitalized for a swelling and redness of her right leg approximately 2014. This was evaluated for cellulitis. She was seen in consultation by infectious disease and plastic surgery. The patient was taken to surgery for an operative debridement of her chronic left ischial ulcer, underwent wound vac treatment and IV antibiotics. She was abruptly released from the F after only a few weeks, before end of therapy. She had finished her IV antibiotics for Grp A strep osteomyelitis at home and continued with PT at home as well. She has decided to go with the conservative care route since she feels that her quality of life is more important than healing out the wound but had continued to keep the wound vac. The wound vac was discontinued by her insurance for failure to show improvement in the size of her wound. She has been seen twice monthly for conservative/palliative/complex care of her bilateral ischial pressure ulcers. She lives with her brother and [id number], who help dress her ulcers/wounds. She has recently developed a skin tear/abrasion of the left buttock/upper posterior thigh. Current management involves the use of collagenase Santyl topically to the skin tear on the left posterior upper thigh, and Aquacel with respect to the ischial pressure ulcerations. The patient has recently completed courses of antibiotics which have included Augmentin and clindamycin. In January 2017, she underwent treatment after developing pressure ulcers which occurred from urinary incontinence issues associated with a chronic UTI and leakage of her catheter. She developed another pressure ulcer of her right buttock on or around April 20, 2017, and presented for treatment of this area as well as continued treatment of her left ischial pressure ulcer. Denies fever, chills or increased pain. The patient indicates that she sleeps on an air loss mattress, and possesses a Roho cushion for her wheelchair. She has previously been counseled as to the importance of offloading measures. She also has been taking Sigifredo protein shakes, and is aware that optimizing glycemic control is advisable. Review of recent laboratory studies reveals a protein of 8.6, albumin 3.2, and hemoglobin A1c of 6.9, on June 03, 2017. Patient is essentially nonambulatory, and uses a walker for transition from bed to chair. She is severely deconditioned. Progress of Wound: Patient continues with conservative care management of left ischium - aquacel dressing to wound daily. No concerns for infection in this pressure ulcer at this time. The pressure ulcer of her right gluteal fold is about the same this week but she reports a significant increse in drainage from this ulcer. Her left upper thigh ulcer is unchanged and is undermining close to the left ischium ulcer. She has been having improvement with urinary incontinence and still has chronic roach catheter. She continues to sit in her wheelchair frequently for long periods of time but has tried to offload more. Denies fever or chills. - Physical Exam Vital Signs Temp Pulse Resp BP 97.1 F L 106 H 18 126/81 H 01/15/18 12:58 01/15/18 12:58 01/15/18 12:58 01/15/18 12:58 General: Alert, Oriented x3, Cooperative, No apparent distress HEENT: Atraumatic, Normocephalic Oral: Moist Mucosa Abdomen: Obese Extremities: Edema Skin: Ulcer/ Wound Wound Measurements and Assessment WC - Nurse 1 - General Ulcer Measurement Start: 12/25/17 13:22 Freq: Status: Active Protocol: Activity Type Activity Date Activity User E-Sign Co-Sign Detail Recorded Client Recorded Date Recorded By Document 01/15/18 12:58 [id number] 01/15/18 13:03 01/15/18 12:58 Wound Center Nurse 1 [Ulcer Assessment] #11 left upper thigh -Combined with other wound No -Current Size (cm) - Length 3.1 -Current Size (cm) - Width 1.4 -Current Size (cm) - Depth 2.0 -Total Square Cm 4.34 -Photo Taken No -Epithelialization None Present -Tunneling No -Undermining/Tunneling No -Circular Undermining No -Exudate Amt Large (67-100%) -Exudate Type Serosanguineous -Wound Margin Distinct, Outline Attached -Granulation Amt Large (67-100%) -Granulation Quality Pale -Slough/Fibrin No -Necrosis Amt None Present (0 %) -Structure Exposed None/Limited to Skin Breakdown -Texture (Amirah-wound Skin Appearance) Assessed -Moisture (Amirah-wound Skin Appearance Assessed ) Maceration -Color (Amirah-wound Skin Appearance) No Abnormality Assessed -Temperature (Amirah-wound Skin No Abnormality Appearance) (Pt Warm) -Tenderness on Palpation (Amirah-wound No Skin Appearance) -Ulcer Cleansing Wound Cleanser -Foul Odor after Cleansing No -Anesthetic Used 4% Lidocaine Solution #7- RT GLUTEAL FOLD Stage III -Combined with other wound No -Current Size (cm) - Length 5.7 -Current Size (cm) - Width 3.5 -Current Size (cm) - Depth 4.1 -Total Square Cm 19.95 -Photo Taken No -Epithelialization None Present -Tunneling No -Undermining/Tunneling No -Circular Undermining No -Exudate Amt Medium (34-66%) -Exudate Type Serosanguineous -Wound Margin Distinct, Outline Attached -Granulation Amt Medium (34-66%) -Granulation Quality Pale -Slough/Fibrin Yes -Necrosis Amt Medium (34-66%) -Necrotic Tissue Type Adherent Slough -Structure Exposed None/Limited to Skin Breakdown -Texture (Amirah-wound Skin Appearance) No Abnormality Assessed Scarring -Moisture (Amirah-wound Skin Appearance Maceration ) -Color (Amirah-wound Skin Appearance) No Abnormality Assessed -Temperature (Amirah-wound Skin No Abnormality Appearance) (Pt Warm) -Tenderness on Palpation (Amirah-wound No Skin Appearance) -Ulcer Cleansing Wound Cleanser -Foul Odor after Cleansing No -Anesthetic Used 4% Lidocaine Solution #10 L buttocks stage IV -Combined with other wound No -Current Size (cm) - Length 0.9 -Current Size (cm) - Width 0.1 -Current Size (cm) - Depth 1.0 -Total Square Cm 0.09 -Photo Taken No -Epithelialization None Present -Tunneling No -Undermining/Tunneling No -Circular Undermining No -Texture (Amirah-wound Skin Appearance) No Abnormality Assessed -Moisture (Amirah-wound Skin Appearance Maceration ) -Color (Amirah-wound Skin Appearance) No Abnormality Assessed -Temperature (Amirah-wound Skin No Abnormality Appearance) (Pt Warm) -Tenderness on Palpation (Amirah-wound No Skin Appearance) -Ulcer Cleansing Wound Cleanser -Foul Odor after Cleansing No -Anesthetic Used 4% Lidocaine Solution [Edema Assessment] -Lower Limb Edema Present NA WC - Nurse 2 - General Ulcer CM Notes Start: 12/25/17 13:22 Freq: Status: Active Protocol: Activity Type Activity Date Activity User E-Sign Co-Sign Detail Recorded Client Recorded Date Recorded By Document 01/15/18 13:40 [id number] 01/15/18 14:01 01/15/18 13:40 Wound Center Nurse 2 [Procedure/Treatment] #11 left upper thigh -Time 13:58 -Correct Patient Yes -Correct Side, Site, Position Yes -Correct Procedure Yes -Procedure Performed Yes -Type of Procedure Debridement -Clinical Debridement Subcutaneous -Post Debridement Size (cm) - Length 3.1 -Post Debridement Size (cm) - Width 2.1 -Post Debridement Size (cm) - Depth 2.0 -Total Square Cm 6.51 -Wound/Ulcer Outcome Not Healed -Ulcer Cleansing Rinsed/ Irrigated with Saline -Foul Odor after Cleansing No -Bioengineered Tissue No -Topical Lidocaine (%) 4 -Bleeding Controlled with Pressure -Other undermining@ 23 --+12 (2.0cm) @ 10 (3.2cm0 -Treatment Response Procedure Tolerated Well #7- RT GLUTEAL FOLD Stage III -Time 13:59 -Correct Patient Yes -Correct Side, Site, Position Yes -Correct Procedure Yes -Procedure Performed Yes -Type of Procedure Debridement -Clinical Debridement Subcutaneous -Post Debridement Size (cm) - Length 5.8 -Post Debridement Size (cm) - Width 4.3 -Post Debridement Size (cm) - Depth 3.6 -Total Square Cm 24.94 -Wound/Ulcer Outcome Not Healed -Ulcer Cleansing Rinsed/ Irrigated with Saline -Foul Odor after Cleansing No -Bioengineered Tissue No -Topical Lidocaine (%) 4 -Bleeding Controlled with Pressure -Treatment Response Procedure Tolerated Well #10 L buttocks stage IV -Time 13:59 -Correct Patient Yes -Correct Side, Site, Position Yes -Correct Procedure Yes -Procedure Performed Yes -Type of Procedure Debridement -Clinical Debridement Subcutaneous -Post Debridement Size (cm) - Length 0.3 -Post Debridement Size (cm) - Width 0.3 -Post Debridement Size (cm) - Depth 0.4 -Total Square Cm 0.09 -Wound/Ulcer Outcome Not Healed -Ulcer Cleansing Rinsed/ Irrigated with Saline -Foul Odor after Cleansing No -Bioengineered Tissue No -Topical Lidocaine (%) 4 -Bleeding Controlled with Pressure -Treatment Response Procedure Tolerated Well [See Physician Procedure note for Specifics] Pain Scale: 0-10 Numeric [Pain] -Is Patient Pain Free? Yes Psych/Mental Status: Normal Affect, Appropriate Debridement Note Post-Debridement Measurements/Treatment WC - Nurse 2 - General Ulcer CM Notes Start: 12/25/17 13:22 Freq: Status: Active Protocol: Activity Type Activity Date Activity User E-Sign Co-Sign Detail Recorded Client Recorded Date Recorded By Document 12/25/17 14:22 TM [id number] 12/25/17 14:26 TM Document 01/15/18 13:40 [id number] 01/15/18 14:01 TM 12/25/17 01/15/18 14:22 13:40 Wound Center Nurse 2 #11 left upper thigh -Time 14:22 13:58 -Correct Patient Yes Yes -Correct Side, Site, Position Yes Yes -Correct Procedure Yes Yes -Procedure Performed Yes Yes -Type of Procedure Debridement Debridement -Clinical Debridement Subcutaneous Subcutaneous -Post Debridement Size (cm) - Length 3.3 3.1 -Post Debridement Size (cm) - Width 2.1 2.1 -Post Debridement Size (cm) - Depth 1.7 2.0 -Total Square Cm 6.93 6.51 -Wound/Ulcer Outcome Not Healed Not Healed -Ulcer Cleansing Rinsed/ Rinsed/ Irrigated with Irrigated with Saline Saline -Foul Odor after Cleansing No No -Bioengineered Tissue No No -Topical Lidocaine (%) 4 4 -Bleeding Controlled with Pressure Pressure -Other UNDERMINING @ undermining@ 23 10 (2.0CM) @ 12 --+12 (2.0cm) @ (3.2CM) 10 (3.2cm0 -Treatment Response Procedure Procedure Tolerated Well Tolerated Well #7- RT GLUTEAL FOLD Stage III -Time 14:23 13:59 -Correct Patient Yes Yes -Correct Side, Site, Position Yes Yes -Correct Procedure Yes Yes -Procedure Performed Yes Yes -Type of Procedure Debridement Debridement -Clinical Debridement Subcutaneous Subcutaneous -Post Debridement Size (cm) - Length 4.5 5.8 -Post Debridement Size (cm) - Width 4.2 4.3 -Post Debridement Size (cm) - Depth 3.7 3.6 -Total Square Cm 18.90 24.94 -Wound/Ulcer Outcome Not Healed Not Healed -Ulcer Cleansing Rinsed/ Rinsed/ Irrigated with Irrigated with Saline Saline -Foul Odor after Cleansing No No -Bioengineered Tissue No No -Topical Lidocaine (%) 4 4 -Bleeding Controlled with Pressure Pressure -Treatment Response Procedure Procedure Tolerated Well Tolerated Well #10 L buttocks stage IV -Time 14:23 13:59 -Correct Patient Yes Yes -Correct Side, Site, Position Yes Yes -Correct Procedure Yes Yes -Procedure Performed Yes Yes -Type of Procedure Debridement Debridement -Clinical Debridement Subcutaneous Subcutaneous -Post Debridement Size (cm) - Length 0.4 0.3 -Post Debridement Size (cm) - Width 0.2 0.3 -Post Debridement Size (cm) - Depth 0.4 0.4 -Total Square Cm 0.08 0.09 -Wound/Ulcer Outcome Not Healed Not Healed -Ulcer Cleansing Rinsed/ Rinsed/ Irrigated with Irrigated with Saline Saline -Foul Odor after Cleansing No No -Bioengineered Tissue No No -Topical Lidocaine (%) 4 4 -Bleeding Controlled with Pressure Pressure -Treatment Response Procedure Procedure Tolerated Well Tolerated Well Pain Scale: 0-10 Numeric Is Patient Pain Free? Yes Yes Wound debrided: left upper thigh Stage III pressure ulcer Laterality: Left Wound Grade/Stage: Stage III Anesthesia Used: 4% Lidocaine Solution Depth: Down to and including healthy tissue, in the subcutaneous layer Percentage of wound debrided: 100 Instrument Used: 5mm curette Tissue Removed: yellow slough, devitalized tissue Severity: Fat Layer Exposed Amount of bleeding with debridement: Mild Bleeding Controlled with: Compression and gauze Patient tolerated procedure well - Additional Wound Wound debrided: right gluteal fold stage III pressure ulcer Laterality: Right Wound Grade/Stage: stage III Type of Debridement: Excisional debridement Anesthesia Used: 4% Lidocaine Solution Depth: Down to and including healthy tissue, in the subcutaneous layer Percentage of wound debrided: 100 Instrument Used: 5mm curette Tissue Removed: yellow slough, devitalized tissue Severity: Fat Layer Exposed Amount of bleeding with debridement: Mild Bleeding Controlled with: Compression and gauze Patient tolerated procedure: Patient tolerated procedure well - Additional Wound Wound debrided: left buttocks stage IV Laterality: Left Wound Grade/Stage: stage IV Type of Debridement: Excisional debridement Anesthesia Used: 4% Lidocaine Solution Depth: Down to and including healthy tissue, in the subcutaneous layer Percentage of wound debrided: 100 Instrument Used: 5mm curette Tissue Removed: yellow slough, devitalized tissue Severity: Fat Layer Exposed Amount of bleeding with debridement: Mild Bleeding Controlled with: Compression and gauze Patient tolerated procedure: Patient tolerated procedure well Assessment/Plan Active Problems Neurogenic bladder (Chronic) Diabetes mellitus type 2 in nonobese (Chronic) Pressure ulcer of left buttock, stage 3 (Chronic) left lower buttock/upper thigh area Pressure ulcer of right buttock, stage 3 (Chronic) Pressure sore of left ischium, stage 4 (Chronic) Physical deconditioning (Chronic) Spinal stenosis (Chronic) Assessment: This is a 67-year-old female with bilateral ischial pressure ulcerations. She also has an ulceration of the left buttock/posterior upper thigh. The patient has chosen to forego aggressive surgical management in the past, choosing rather to pursue more conservative treatment modalities. She is currently on a complex care regimen. Offloading measures are to be continued. We are to continue the use of Aquacel Extra topically to each of the ischial pressure ulcerations. Optimization of her diabetes mellitus has been recommended. Optimizing nutrition has also been reinforced. The patient does not wish to consider a more aggressive approach which would involve surgical options. She has rebuffed the idea of consultation with a plastic surgeon. Recent CT scan of the pelvis, performed 08/05/2017, reveals no evidence of osteomyelitis. Plan: Continue conservative/complex care plan for all wounds. No current osteomyelitis present. Will continue using Allevyn to help protect her wounds from moisture of urine. Minimal improvement in measurements of wounds. Due to increase in drainage will check wound culture on right gluteal fold ulcer and treat with antibiotics if culture is positive. Will return in 2 weeks for reassessment. Wound vac with reggie was denied by insurance. Optimizing nutrition and diabetes control has been recommended. Offloading measures and frequent repositioning are to continue. Patient has been encouraged to increase protein intake to aid in wound healing and maintain good control of diabetes. Discussed offloading importance in wound healing. We are to continue Aquacel for all the ischial/buttock pressure ulcerations. F/U in 2 weeks.
== END 2018-01-17 23:59 ==
LOC: WC 13:00
PROVIDERS: Family Provider Family Medicine; PCP Family Medicine; Visit Provider Family Medicine
DX: E11.622 Type 2 diabetes mellitus with other skin ulcer (principal); L89.224 Pressure ulcer of left hip, stage 4; L89.213 Pressure ulcer of right hip, stage 3; M48.07 Spinal stenosis, lumbosacral region; N31.9 Neuromuscular dysfunction of bladder, unspecified; R32 Unspecified urinary incontinence; L89.893 Pressure ulcer of other site, stage 3
CPT/HCPCS: 11042; 11045; 87070; 87075; 87077; 87186; 87205

== ENCOUNTER 2018-02-12 13:30 | Outpatient (RCR) | payer MEDICAID, SELFPAY ==
[2018-01-18 00:38] VITALS: BP 126/81; PULSE 106; RESP 18; TEMP 36.2
[2018-01-29 13:09] VITALS: BP 134/76; PULSE 100; RESP 18; TEMP 37
--- NOTE | 2018-01-29 16:13 | PCM.WC.PN ---
(1) Diabetes mellitus type 2 in nonobese Status: Chronic Current Visit: Yes Code(s): E11.9 - Type 2 diabetes mellitus without complications (2) Pressure ulcer of left buttock, stage 3 Status: Chronic Current Visit: Yes Code(s): L89.323 - Pressure ulcer of left buttock, stage 3 Comment: left lower buttock/upper thigh area (3) Pressure ulcer of right buttock, stage 3 Status: Chronic Current Visit: Yes Code(s): L89.313 - Pressure ulcer of right buttock, stage 3 (4) Back pain Status: Chronic Current Visit: Yes Qualifiers: Back pain location: low back pain Chronicity: chronic Back pain laterality: unspecified Sciatica laterality: sciatica laterality unspecified Code(s): M54.9 - Dorsalgia, unspecified (5) Pressure sore of left ischium, stage 4 Status: Chronic Current Visit: Yes Code(s): L89.324 - Pressure ulcer of left buttock, stage 4 (6) Physical deconditioning Status: Chronic Current Visit: Yes Code(s): R53.81 - Other malaise (7) Spinal stenosis Status: Chronic Current Visit: Yes Qualifiers: Spinal region: lumbosacral Qualified Code(s): M48.07 - Spinal stenosis, lumbosacral region Code(s): M48.00 - Spinal stenosis, site unspecified Type of Wound Chief Complaint: Left ischial pressure ulcer, Stage IV. Right ischial pressure ulcer, stage III. Spinal stenosis. Ulceration of posterior left upper thigh, stage III. History of Wound: Patient is a 67-year-old female who has a chronic pressure ulcer of her left ischium and right ischium. Patient was initially hospitalized for a swelling and redness of her right leg approximately 2014. This was evaluated for cellulitis. She was seen in consultation by infectious disease and plastic surgery. The patient was taken to surgery for an operative debridement of her chronic left ischial ulcer, underwent wound vac treatment and IV antibiotics. She was abruptly released from the F after only a few weeks, before end of therapy. She had finished her IV antibiotics for Grp A strep osteomyelitis at home and continued with PT at home as well. She has decided to go with the conservative care route since she feels that her quality of life is more important than healing out the wound but had continued to keep the wound vac. The wound vac was discontinued by her insurance for failure to show improvement in the size of her wound. She has been seen twice monthly for conservative/palliative/complex care of her bilateral ischial pressure ulcers. She lives with her brother and [id number], who help dress her ulcers/wounds. She has recently developed a skin tear/abrasion of the left buttock/upper posterior thigh. Current management involves the use of collagenase Santyl topically to the skin tear on the left posterior upper thigh, and Aquacel with respect to the ischial pressure ulcerations. The patient has recently completed courses of antibiotics which have included Augmentin and clindamycin. In January 2017, she underwent treatment after developing pressure ulcers which occurred from urinary incontinence issues associated with a chronic UTI and leakage of her catheter. She developed another pressure ulcer of her right buttock on or around April 20, 2017, and presented for treatment of this area as well as continued treatment of her left ischial pressure ulcer. Denies fever, chills or increased pain. The patient indicates that she sleeps on an air loss mattress, and possesses a Roho cushion for her wheelchair. She has previously been counseled as to the importance of offloading measures. She also has been taking Sigifredo protein shakes, and is aware that optimizing glycemic control is advisable. Review of recent laboratory studies reveals a protein of 8.6, albumin 3.2, and hemoglobin A1c of 6.9, on June 03, 2017. Patient is essentially nonambulatory, and uses a walker for transition from bed to chair. She is severely deconditioned. Progress of Wound: Patient continues with conservative care management of left ischium - aquacel dressing to wound daily. No concerns for infection in this pressure ulcer at this time. The pressure ulcer of her right gluteal fold is improved this week with a slight decrease in drainage from this ulcer. Her left upper thigh ulcer is unchanged and is undermining close to the left ischium ulcer. She has been having improvement with urinary incontinence and still has chronic roach catheter. She continues to sit in her wheelchair frequently for long periods of time but has tried to offload more. Denies fever or chills. - Physical Exam Vital Signs Temp Pulse Resp BP 98.6 F 100 18 134/76 H 01/29/18 13:09 01/29/18 13:09 01/29/18 13:09 01/29/18 13:09 General: Alert, Oriented x3, Cooperative, No apparent distress HEENT: Atraumatic, Normocephalic Oral: Moist Mucosa Abdomen: Obese Skin: Ulcer/ Wound Wound Measurements and Assessment WC - Nurse 1 - General Ulcer Measurement Start: 01/29/18 13:09 Freq: Status: Active Protocol: Activity Type Activity Date Activity User E-Sign Co-Sign Detail Recorded Client Recorded Date Recorded By Document 01/29/18 13:09 RB [id number] 01/29/18 13:28 RB 01/29/18 13:09 Wound Center Nurse 1 [Ulcer Assessment] #11 left upper thigh -Combined with other wound No -Current Size (cm) - Length 3.5 -Current Size (cm) - Width 1.5 -Current Size (cm) - Depth 2.0 -Total Square Cm 5.25 -Epithelialization None Present -Tunneling No -Undermining/Tunneling No -Circular Undermining No -Exudate Amt Large (67-100%) -Exudate Type Serosanguineous -Wound Margin Thickened & Rolled Under -Granulation Amt Large (67-100%) -Granulation Quality [place] -Slough/Fibrin Yes -Necrosis Amt Small (1-33%) -Necrotic Tissue Type Adherent Slough -Structure Exposed N/A -Texture (Amirah-wound Skin Appearance) Assessed -Moisture (Amirah-wound Skin Appearance Maceration ) -Color (Amirah-wound Skin Appearance) Assessed -Temperature (Amirah-wound Skin No Abnormality Appearance) (Pt Warm) -Tenderness on Palpation (Amirah-wound No Skin Appearance) -Ulcer Cleansing Wound Cleanser -Foul Odor after Cleansing No -Anesthetic Used 4% Lidocaine Solution #7- RT GLUTEAL FOLD Stage III -Combined with other wound No -Current Size (cm) - Length 6 -Current Size (cm) - Width 4.5 -Current Size (cm) - Depth 5 -Total Square Cm 27.0 -Epithelialization None Present -Tunneling No -Undermining/Tunneling No -Circular Undermining No -Exudate Amt Large (67-100%) -Exudate Type Serosanguineous -Wound Margin Thickened & Rolled Under -Granulation Amt Large (67-100%) -Granulation Quality [place] -Slough/Fibrin Yes -Necrosis Amt Small (1-33%) -Necrotic Tissue Type Adherent Slough -Structure Exposed N/A -Texture (Amirah-wound Skin Appearance) Assessed -Moisture (Amirah-wound Skin Appearance Maceration ) -Color (Amirah-wound Skin Appearance) Assessed -Temperature (Amirah-wound Skin No Abnormality Appearance) (Pt Warm) -Ulcer Cleansing Wound Cleanser -Foul Odor after Cleansing No -Anesthetic Used 4% Lidocaine Solution #10 L buttocks stage IV -Combined with other wound No -Current Size (cm) - Length 0.3 -Current Size (cm) - Width 1 -Current Size (cm) - Depth 0.7 -Total Square Cm 0.3 -Photo Taken No -Tunneling No -Undermining/Tunneling No -Circular Undermining No -Exudate Amt Large (67-100%) -Exudate Type Serosanguineous -Wound Margin Thickened & Rolled Under -Granulation Amt Large (67-100%) -Granulation Quality [place] -Slough/Fibrin Yes -Necrosis Amt Small (1-33%) -Necrotic Tissue Type Adherent Slough -Structure Exposed N/A -Texture (Amirah-wound Skin Appearance) Assessed -Moisture (Amirah-wound Skin Appearance Maceration ) -Color (Amirah-wound Skin Appearance) Assessed -Temperature (Amirah-wound Skin No Abnormality Appearance) (Pt Warm) -Tenderness on Palpation (Amirah-wound No Skin Appearance) -Ulcer Cleansing Wound Cleanser -Foul Odor after Cleansing No -Anesthetic Used 4% Lidocaine Solution WC - Nurse 2 - General Ulcer CM Notes Start: 01/29/18 13:09 Freq: Status: Active Protocol: Activity Type Activity Date Activity User E-Sign Co-Sign Detail Recorded Client Recorded Date Recorded By Document 01/29/18 13:47 [id number] 01/29/18 13:53 01/29/18 13:47 Wound Center Nurse 2 [Procedure/Treatment] #11 left upper thigh -Time 13:47 -Correct Patient Yes -Correct Side, Site, Position Yes -Correct Procedure Yes -Procedure Performed Yes -Type of Procedure Debridement -Clinical Debridement Subcutaneous -Post Debridement Size (cm) - Length 3.7 -Post Debridement Size (cm) - Width 2.3 -Post Debridement Size (cm) - Depth 1.8 -Total Square Cm 8.51 -Wound/Ulcer Outcome Not Healed -Ulcer Cleansing Rinsed/ Irrigated with Saline -Foul Odor after Cleansing No -Bioengineered Tissue No -Bleeding Controlled with NA -Treatment Response Procedure Tolerated Well #7- RT GLUTEAL FOLD Stage III -Time 13:47 -Correct Patient Yes -Correct Side, Site, Position Yes -Correct Procedure Yes -Procedure Performed Yes -Type of Procedure Debridement -Clinical Debridement Subcutaneous -Post Debridement Size (cm) - Length 5.9 -Post Debridement Size (cm) - Width 3.7 -Post Debridement Size (cm) - Depth 3.8 -Total Square Cm 21.83 -Wound/Ulcer Outcome Not Healed -Ulcer Cleansing Not Cleansed -Foul Odor after Cleansing No -Bioengineered Tissue No -Bleeding Controlled with NA -Treatment Response Procedure Tolerated Well #10 L buttocks stage IV -Time 13:48 -Correct Patient Yes -Correct Side, Site, Position Yes -Correct Procedure Yes -Procedure Performed Yes -Type of Procedure Debridement -Clinical Debridement Subcutaneous -Post Debridement Size (cm) - Length 0.2 -Post Debridement Size (cm) - Width 0.4 -Post Debridement Size (cm) - Depth 0.5 -Total Square Cm 0.08 -Wound/Ulcer Outcome Not Healed -Ulcer Cleansing Not Cleansed -Foul Odor after Cleansing No -Bioengineered Tissue No -Bleeding Controlled with NA -Treatment Response Procedure Tolerated Well [See Physician Procedure note for Specifics] Pain Scale: 0-10 Numeric [Pain] -Is Patient Pain Free? Yes Psych/Mental Status: Normal Affect, Appropriate Debridement Note Post-Debridement Measurements/Treatment WC - Nurse 2 - General Ulcer CM Notes Start: 01/29/18 13:09 Freq: Status: Active Protocol: Activity Type Activity Date Activity User E-Sign Co-Sign Detail Recorded Client Recorded Date Recorded By Document 01/29/18 13:47 [id number] 01/29/18 13:53 01/29/18 13:47 Wound Center Nurse 2 #11 left upper thigh -Time 13:47 -Correct Patient Yes -Correct Side, Site, Position Yes -Correct Procedure Yes -Procedure Performed Yes -Type of Procedure Debridement -Clinical Debridement Subcutaneous -Post Debridement Size (cm) - Length 3.7 -Post Debridement Size (cm) - Width 2.3 -Post Debridement Size (cm) - Depth 1.8 -Total Square Cm 8.51 -Wound/Ulcer Outcome Not Healed -Ulcer Cleansing Rinsed/ Irrigated with Saline -Foul Odor after Cleansing No -Bioengineered Tissue No -Bleeding Controlled with NA -Treatment Response Procedure Tolerated Well #7- RT GLUTEAL FOLD Stage III -Time 13:47 -Correct Patient Yes -Correct Side, Site, Position Yes -Correct Procedure Yes -Procedure Performed Yes -Type of Procedure Debridement -Clinical Debridement Subcutaneous -Post Debridement Size (cm) - Length 5.9 -Post Debridement Size (cm) - Width 3.7 -Post Debridement Size (cm) - Depth 3.8 -Total Square Cm 21.83 -Wound/Ulcer Outcome Not Healed -Ulcer Cleansing Not Cleansed -Foul Odor after Cleansing No -Bioengineered Tissue No -Bleeding Controlled with NA -Treatment Response Procedure Tolerated Well #10 L buttocks stage IV -Time 13:48 -Correct Patient Yes -Correct Side, Site, Position Yes -Correct Procedure Yes -Procedure Performed Yes -Type of Procedure Debridement -Clinical Debridement Subcutaneous -Post Debridement Size (cm) - Length 0.2 -Post Debridement Size (cm) - Width 0.4 -Post Debridement Size (cm) - Depth 0.5 -Total Square Cm 0.08 -Wound/Ulcer Outcome Not Healed -Ulcer Cleansing Not Cleansed -Foul Odor after Cleansing No -Bioengineered Tissue No -Bleeding Controlled with NA -Treatment Response Procedure Tolerated Well Pain Scale: 0-10 Numeric Is Patient Pain Free? Yes Wound debrided: left upper thigh Laterality: Left Wound Grade/Stage: Stage III Type of Debridement: Excisional debridement Anesthesia Used: 4% Lidocaine Solution Depth: Down to and including healthy tissue, in the subcutaneous layer Percentage of wound debrided: 100 Instrument Used: 7mm curette Tissue Removed: yellow slough, devitalized tissue Severity: Fat Layer Exposed Amount of bleeding with debridement: Mild Bleeding Controlled with: Compression and gauze Patient tolerated procedure well - Additional Wound Wound debrided: right gluteal fold Laterality: Right Wound Grade/Stage: Stage III Type of Debridement: Excisional debridement Anesthesia Used: 4% Lidocaine Solution Depth: Down to and including healthy tissue, in the subcutaneous layer Percentage of wound debrided: 100 Instrument Used: 7mm curette Tissue Removed: yellow slough, devitalized tissue Severity: Fat Layer Exposed Amount of bleeding with debridement: Mild Bleeding Controlled with: Compression and gauze Patient tolerated procedure: Patient tolerated procedure well - Additional Wound Wound debrided: left ischium stage IV Laterality: Left Wound Grade/Stage: stage IV Type of Debridement: Excisional debridement Anesthesia Used: 4% Lidocaine Solution Depth: Down to and including healthy tissue, in the subcutaneous layer Percentage of wound debrided: 100 Instrument Used: 7mm curette Tissue Removed: yellow slough, devitalized tissue Severity: Fat Layer Exposed Amount of bleeding with debridement: Mild Bleeding Controlled with: Compression and gauze Patient tolerated procedure: Patient tolerated procedure well Assessment/Plan Active Problems Diabetes mellitus type 2 in nonobese (Chronic) Pressure ulcer of left buttock, stage 3 (Chronic) left lower buttock/upper thigh area Pressure ulcer of right buttock, stage 3 (Chronic) Back pain (Chronic) Pressure sore of left ischium, stage 4 (Chronic) Physical deconditioning (Chronic) Spinal stenosis (Chronic) Assessment: This is a 67-year-old female with bilateral ischial pressure ulcerations. She also has an ulceration of the left buttock/posterior upper thigh. The patient has chosen to forego aggressive surgical management in the past, choosing rather to pursue more conservative treatment modalities. She is currently on a complex care regimen. Offloading measures are to be continued. We are to continue the use of Aquacel Extra topically to each of the ischial pressure ulcerations. Optimization of her diabetes mellitus has been recommended. Optimizing nutrition has also been reinforced. The patient does not wish to consider a more aggressive approach which would involve surgical options. She has rebuffed the idea of consultation with a plastic surgeon. Recent CT scan of the pelvis, performed 08/05/2017, reveals no evidence of osteomyelitis. Plan: Continue conservative/complex care plan for all wounds. No current osteomyelitis present. Will continue using Allevyn to help protect her wounds from moisture of urine. Minimal improvement in measurements of wounds. Completed antibiotics for positive wound culture and has noticed decrease in drainage. Will return in 2 weeks for reassessment. Wound vac with reggie was denied by insurance. Optimizing nutrition and diabetes control has been recommended. Offloading measures and frequent repositioning are to continue. Patient has been encouraged to increase protein intake to aid in wound healing and maintain good control of diabetes. Discussed offloading importance in wound healing. We are to continue Aquacel for all the ischial/buttock pressure ulcerations. F/U in 2 weeks.
[2018-02-12 14:27] VITALS: BP 131/75; PULSE 114; RESP 18; TEMP 36.6
--- NOTE | 2018-02-12 18:16 | PN.PCM_ITS ---
(1) Diabetes mellitus type 2 in nonobese Status: Chronic Current Visit: Yes Code(s): E11.9 - Type 2 diabetes mellitus without complications (2) Pressure ulcer of left buttock, stage 3 Status: Chronic Current Visit: Yes Code(s): L89.323 - Pressure ulcer of left buttock, stage 3 Comment: left lower buttock/upper thigh area (3) Pressure ulcer of right buttock, stage 3 Status: Chronic Current Visit: Yes Code(s): L89.313 - Pressure ulcer of right buttock, stage 3 (4) Back pain Status: Chronic Current Visit: Yes Qualifiers: Back pain location: low back pain Chronicity: chronic Back pain laterality: unspecified Sciatica laterality: sciatica laterality unspecified Code(s): M54.9 - Dorsalgia, unspecified (5) Pressure sore of left ischium, stage 4 Status: Chronic Current Visit: Yes Code(s): L89.324 - Pressure ulcer of left buttock, stage 4 (6) Physical deconditioning Status: Chronic Current Visit: Yes Code(s): R53.81 - Other malaise (7) Spinal stenosis Status: Chronic Current Visit: Yes Qualifiers: Spinal region: lumbosacral Qualified Code(s): M48.07 - Spinal stenosis, lumbosacral region Code(s): M48.00 - Spinal stenosis, site unspecified Type of Wound Date of Service: 02/12/18 Chief Complaint: Left ischial pressure ulcer, Stage IV. Right ischial pressure ulcer, stage III. Spinal stenosis. Ulceration of posterior left upper thigh, stage III. History of Wound: Patient is a 67-year-old female who has a chronic pressure ulcer of her left ischium and right ischium. Patient was initially hospitalized for a swelling and redness of her right leg approximately 2014. This was evaluated for cellulitis. She was seen in consultation by infectious disease and plastic surgery. The patient was taken to surgery for an operative debridement of her chronic left ischial ulcer, underwent wound vac treatment and IV antibiotics. She was abruptly released from the [facility] after only a few weeks, before end of therapy. She had finished her IV antibiotics for Grp A strep osteomyelitis at home and continued with PT at home as well. She has decided to go with the conservative care route since she feels that her quality of life is more important than healing out the wound but had continued to keep the wound vac. The wound vac was discontinued by her insurance for failure to show improvement in the size of her wound. She has been seen twice monthly for conservative/palliative/complex care of her bilateral ischial pressure ulcers. She lives with her brother and [id number], who help dress her ulcers/wounds. She has recently developed a skin tear/abrasion of the left buttock/upper posterior thigh. Current management involves the use of collagenase Santyl topically to the skin tear on the left posterior upper thigh, and Aquacel with respect to the ischial pressure ulcerations. The patient has recently completed courses of antibiotics which have included Augmentin and clindamycin. In January 2017, she underwent treatment after developing pressure ulcers which occurred from urinary incontinence issues associated with a chronic UTI and leakage of her catheter. She developed another pressure ulcer of her right buttock on or around April 20, 2017, and presented for treatment of this area as well as continued treatment of her left ischial pressure ulcer. Denies fever, chills or increased pain. The patient indicates that she sleeps on an air loss mattress, and possesses a Roho cushion for her wheelchair. She has previously been counseled as to the importance of offloading measures. She also has been taking Sigifredo protein shakes, and is aware that optimizing glycemic control is advisable. Review of recent laboratory studies reveals a protein of 8.6, albumin 3.2, and hemoglobin A1c of 6.9, on June 03, 2017. Patient is essentially nonambulatory, and uses a walker for transition from bed to chair. She is severely deconditioned. Progress of Wound: Patient continues with conservative care management of left ischium - aquacel dressing to wound daily. No concerns for infection in this pressure ulcer at this time. The pressure ulcer of her right gluteal fold is improved this week with a slight decrease in drainage from this ulcer. Her left upper thigh ulcer is unchanged and is undermining close to the left ischium ulcer. She has been having improvement with urinary incontinence and still has chronic roach catheter. She continues to sit in her wheelchair frequently for long periods of time but has tried to offload more. Denies fever or chills. - Physical Exam Vital Signs Temp Pulse Resp BP 97.8 F 114 H 18 131/75 H 02/12/18 14:27 02/12/18 14:27 02/12/18 14:27 02/12/18 14:27 General: Alert, Oriented x3, Cooperative, No apparent distress HEENT: Atraumatic, Normocephalic Oral: Moist Mucosa Skin: Ulcer/ Wound Wound Measurements and Assessment - Nurse 1 - General Ulcer Measurement Start: 01/29/18 13:09 Freq: Status: Active Protocol: Activity Type Activity Date Activity User E-Sign Co-Sign Detail Recorded Client Recorded Date Recorded By Document 02/12/18 14:27 [id number] 02/12/18 14:35 02/12/18 14:27 Wound Center Nurse 1 [Ulcer Assessment] #11 left upper thigh -Combined with other wound No -Current Size (cm) - Length 4.0 -Current Size (cm) - Width 2.0 -Current Size (cm) - Depth 2.0 -Total Square Cm 8.00 -Photo Taken No -Epithelialization None Present -Tunneling No -Undermining/Tunneling No -Circular Undermining No -Exudate Amt Large (67-100%) -Exudate Type Serosanguineous -Wound Margin Distinct, Outline Attached -Granulation Amt None Present (0 %) -Slough/Fibrin Yes -Necrosis Amt Large (67-100%) -Necrotic Tissue Type Adherent Slough -Texture (Amirah-wound Skin Appearance) Assessed Scarring -Moisture (Amirah-wound Skin Appearance Assessed ) Maceration Weeping -Color (Amirah-wound Skin Appearance) No Abnormality Assessed -Temperature (Amirah-wound Skin No Abnormality Appearance) (Pt Warm) -Tenderness on Palpation (Amirah-wound No Skin Appearance) -Ulcer Cleansing Rinsed/ Irrigated with Saline -Foul Odor after Cleansing No -Anesthetic Used 4% Lidocaine Solution #7- RT GLUTEAL FOLD Stage III -Combined with other wound No -Current Size (cm) - Length 4.5 -Current Size (cm) - Width 1.2 -Current Size (cm) - Depth 1.0 -Total Square Cm 5.40 -Photo Taken No -Epithelialization None Present -Tunneling No -Undermining/Tunneling No -Circular Undermining No -Exudate Amt Large (67-100%) -Exudate Type Serosanguineous -Wound Margin Distinct, Outline Attached -Granulation Amt None Present (0 %) -Slough/Fibrin Yes -Necrosis Amt Large (67-100%) -Necrotic Tissue Type Adherent Slough -Texture (Amirah-wound Skin Appearance) Assessed Scarring -Moisture (Amirah-wound Skin Appearance Assessed ) Maceration Weeping -Color (Amirah-wound Skin Appearance) No Abnormality Assessed -Temperature (Amirah-wound Skin No Abnormality Appearance) (Pt Warm) -Tenderness on Palpation (Amirah-wound No Skin Appearance) -Ulcer Cleansing Rinsed/ Irrigated with Saline -Foul Odor after Cleansing No -Anesthetic Used 4% Lidocaine Solution #10 L buttocks stage IV -Combined with other wound No -Current Size (cm) - Length 2.0 -Current Size (cm) - Width 1.2 -Current Size (cm) - Depth 1.0 -Total Square Cm 2.40 -Photo Taken No -Epithelialization None Present -Tunneling No -Undermining/Tunneling No -Circular Undermining No -Exudate Amt Large (67-100%) -Exudate Type Serosanguineous -Wound Margin Distinct, Outline Attached -Granulation Amt None Present (0 %) -Slough/Fibrin Yes -Necrosis Amt Large (67-100%) -Necrotic Tissue Type Adherent Slough -Texture (Amirah-wound Skin Appearance) Assessed Scarring -Moisture (Amirah-wound Skin Appearance Assessed ) Maceration Weeping -Color (Amirah-wound Skin Appearance) No Abnormality Assessed -Temperature (Amirah-wound Skin No Abnormality Appearance) (Pt Warm) -Tenderness on Palpation (Amirah-wound No Skin Appearance) -Ulcer Cleansing Rinsed/ Irrigated with Saline -Foul Odor after Cleansing No -Anesthetic Used 4% Lidocaine Solution WC - Nurse 2 - General Ulcer CM Notes Start: 01/29/18 13:09 Freq: Status: Active Protocol: Activity Type Activity Date Activity User E-Sign Co-Sign Detail Recorded Client Recorded Date Recorded By Document 02/12/18 15:19 MW [id number] 02/12/18 15:32 MW 02/12/18 15:19 Wound Center Nurse 2 [Procedure/Treatment] #11 left upper thigh -Time 15:19 -Correct Patient Yes -Correct Side, Site, Position Yes -Correct Procedure Yes -Procedure Performed Yes -Type of Procedure Debridement -Clinical Debridement Subcutaneous -Post Debridement Size (cm) - Length 3.4 -Post Debridement Size (cm) - Width 2.5 -Post Debridement Size (cm) - Depth 1.5 -Total Square Cm 8.50 -Wound/Ulcer Outcome Not Healed -Ulcer Cleansing Rinsed/ Irrigated with Saline -Foul Odor after Cleansing No -Bioengineered Tissue No -Bleeding Controlled with Pressure -Other TUNNEL @ 12 - 1 .7CM -Treatment Response Procedure Tolerated Well #7- RT GLUTEAL FOLD Stage III -Time 15:19 -Correct Patient Yes -Correct Side, Site, Position Yes -Correct Procedure Yes -Procedure Performed Yes -Type of Procedure Debridement -Clinical Debridement Subcutaneous -Post Debridement Size (cm) - Length 5.4 -Post Debridement Size (cm) - Width 4.0 -Post Debridement Size (cm) - Depth 3.3 -Total Square Cm 21.60 -Wound/Ulcer Outcome Not Healed -Ulcer Cleansing Rinsed/ Irrigated with Saline -Foul Odor after Cleansing No -Bioengineered Tissue No -Bleeding Controlled with Pressure -Treatment Response Procedure Tolerated Well #10 L buttocks stage IV -Time 15:20 -Correct Patient Yes -Correct Side, Site, Position Yes -Correct Procedure Yes -Procedure Performed Yes -Type of Procedure Debridement -Clinical Debridement Subcutaneous -Post Debridement Size (cm) - Length 0.7 -Post Debridement Size (cm) - Width 0.3 -Post Debridement Size (cm) - Depth 0.5 -Total Square Cm 0.21 -Wound/Ulcer Outcome Not Healed -Ulcer Cleansing Rinsed/ Irrigated with Saline -Foul Odor after Cleansing No -Bioengineered Tissue No -Bleeding Controlled with Pressure -Treatment Response Procedure Tolerated Well [See Physician Procedure note for Specifics] Pain Scale: 0-10 Numeric [Pain] -Is Patient Pain Free? Yes Psych/Mental Status: Normal Affect, Appropriate Debridement Note Post-Debridement Measurements/Treatment WC - Nurse 2 - General Ulcer CM Notes Start: 01/29/18 13:09 Freq: Status: Active Protocol: Activity Type Activity Date Activity User E-Sign Co-Sign Detail Recorded Client Recorded Date Recorded By Document 01/29/18 13:47 CS [id number] 01/29/18 13:53 CS Document 02/12/18 15:19 MW [id number] 02/12/18 15:32 MW 01/29/18 02/12/18 13:47 15:19 Wound Center Nurse 2 #11 left upper thigh -Time 13:47 15:19 -Correct Patient Yes Yes -Correct Side, Site, Position Yes Yes -Correct Procedure Yes Yes -Procedure Performed Yes Yes -Type of Procedure Debridement Debridement -Clinical Debridement Subcutaneous Subcutaneous -Post Debridement Size (cm) - Length 3.7 3.4 -Post Debridement Size (cm) - Width 2.3 2.5 -Post Debridement Size (cm) - Depth 1.8 1.5 -Total Square Cm 8.51 8.50 -Wound/Ulcer Outcome Not Healed Not Healed -Ulcer Cleansing Rinsed/ Rinsed/ Irrigated with Irrigated with Saline Saline -Foul Odor after Cleansing No No -Bioengineered Tissue No No -Bleeding Controlled with NA Pressure -Other TUNNEL @ 12 - 1 .7CM -Treatment Response Procedure Procedure Tolerated Well Tolerated Well #7- RT GLUTEAL FOLD Stage III -Time 13:47 15:19 -Correct Patient Yes Yes -Correct Side, Site, Position Yes Yes -Correct Procedure Yes Yes -Procedure Performed Yes Yes -Type of Procedure Debridement Debridement -Clinical Debridement Subcutaneous Subcutaneous -Post Debridement Size (cm) - Length 5.9 5.4 -Post Debridement Size (cm) - Width 3.7 4.0 -Post Debridement Size (cm) - Depth 3.8 3.3 -Total Square Cm 21.83 21.60 -Wound/Ulcer Outcome Not Healed Not Healed -Ulcer Cleansing Not Cleansed Rinsed/ Irrigated with Saline -Foul Odor after Cleansing No No -Bioengineered Tissue No No -Bleeding Controlled with NA Pressure -Treatment Response Procedure Procedure Tolerated Well Tolerated Well #10 L buttocks stage IV -Time 13:48 15:20 -Correct Patient Yes Yes -Correct Side, Site, Position Yes Yes -Correct Procedure Yes Yes -Procedure Performed Yes Yes -Type of Procedure Debridement Debridement -Clinical Debridement Subcutaneous Subcutaneous -Post Debridement Size (cm) - Length 0.2 0.7 -Post Debridement Size (cm) - Width 0.4 0.3 -Post Debridement Size (cm) - Depth 0.5 0.5 -Total Square Cm 0.08 0.21 -Wound/Ulcer Outcome Not Healed Not Healed -Ulcer Cleansing Not Cleansed Rinsed/ Irrigated with Saline -Foul Odor after Cleansing No No -Bioengineered Tissue No No -Bleeding Controlled with NA Pressure -Treatment Response Procedure Procedure Tolerated Well Tolerated Well Pain Scale: 0-10 Numeric Is Patient Pain Free? Yes Yes Wound debrided: left upper thigh Laterality: Left Wound Grade/Stage: Stage III Type of Debridement: Excisional debridement Anesthesia Used: 4% Lidocaine Solution Depth: Down to and including healthy tissue, in the subcutaneous layer Percentage of wound debrided: 100 Instrument Used: 7mm curette Tissue Removed: devitalized tissue, yellow slough Severity: Fat Layer Exposed Amount of bleeding with debridement: Mild Bleeding Controlled with: Compression and gauze Patient tolerated procedure well - Additional Wound Wound debrided: left buttock/ischium stage IV Laterality: Left Wound Grade/Stage: stage IV Type of Debridement: Excisional debridement Anesthesia Used: 4% Lidocaine Solution Depth: Down to and including healthy tissue, in the subcutaneous layer Percentage of wound debrided: 100 Instrument Used: 7mm curette Tissue Removed: devitalized tissue, yellow slough Severity: Fat Layer Exposed Amount of bleeding with debridement: Mild Bleeding Controlled with: Compression and gauze Patient tolerated procedure: Patient tolerated procedure well - Additional Wound Wound debrided: right gluteal fold Laterality: Right Wound Grade/Stage: Stage III Type of Debridement: Excisional debridement Anesthesia Used: 4% Lidocaine Solution Depth: Down to and including healthy tissue, in the subcutaneous layer Percentage of wound debrided: 100 Instrument Used: 7mm curette Tissue Removed: devitalized tissue, yellow slough Severity: Fat Layer Exposed Amount of bleeding with debridement: Mild Bleeding Controlled with: Compression and gauze Patient tolerated procedure: Patient tolerated procedure well Assessment/Plan Active Problems Diabetes mellitus type 2 in nonobese (Chronic) Pressure ulcer of left buttock, stage 3 (Chronic) left lower buttock/upper thigh area Pressure ulcer of right buttock, stage 3 (Chronic) Back pain (Chronic) Pressure sore of left ischium, stage 4 (Chronic) Physical deconditioning (Chronic) Spinal stenosis (Chronic) Assessment: This is a 67-year-old female with bilateral ischial pressure ulcerations. She also has an ulceration of the left buttock/posterior upper thigh. The patient has chosen to forego aggressive surgical management in the past, choosing rather to pursue more conservative treatment modalities. She is currently on a complex care regimen. Offloading measures are to be continued. We are to continue the use of Aquacel Extra topically to each of the ischial pressure ulcerations. Optimization of her diabetes mellitus has been recommended. Optimizing nutrition has also been reinforced. The patient does not wish to consider a more aggressive approach which would involve surgical options. She has rebuffed the idea of consultation with a plastic surgeon. Recent CT scan of the pelvis, performed 08/05/2017, reveals no evidence of osteomyelitis. Plan: Continue conservative/complex care plan for all wounds. No current ost eomyelitis present. Will continue using Allevyn to help protect her wounds from moisture of urine. Minimal improvement in measurements of wounds. Completed antibiotics for positive wound culture and has noticed decrease in drainage. Will return in 2 weeks for reassessment. Wound vac with reggie was denied by insurance. Optimizing nutrition and diabetes control has been recommended. Offloading measures and frequent repositioning are to continue. Patient has been encouraged to increase protein intake to aid in wound healing and maintain good control of diabetes. Discussed offloading importance in wound healing. We are to continue Aquacel for all the ischial/buttock pressure ulcerations. F/U in 2 weeks.
== END 2018-02-17 23:59 ==
LOC: WC 13:30
PROVIDERS: Family Provider Family Medicine; PCP Family Medicine; Referring Provider Surgery; Visit Provider Family Medicine
DX: E11.622 Type 2 diabetes mellitus with other skin ulcer (principal); L89.323 Pressure ulcer of left buttock, stage 3; L89.313 Pressure ulcer of right buttock, stage 3; M48.07 Spinal stenosis, lumbosacral region; L89.224 Pressure ulcer of left hip, stage 4; L89.213 Pressure ulcer of right hip, stage 3; L89.893 Pressure ulcer of other site, stage 3
CPT/HCPCS: 11042; 11045

== ENCOUNTER 2018-02-22 17:38 | Outpatient (RCR) | payer MEDICAID, SELFPAY ==
[2018-02-22 18:03] LABS: Color, Urine Yellow (Yellow); Glucose, Dipstick Normal (Normal); Ketone-Dipstick Negative (Negative); Leukocyte Esterase-Dipstick 500 /ul (Negative); Nitrite-Dipstick Positive (Negative); Occult Blood-Urine 150 /ul (Negative); Protein-Dipstick 30 mg/dl (Negative); Urine Bilirubin Dipstick Negative (Negative); Urine Clarity Sl. Cloudy (Clear); Urine Urobilinogen Normal (Normal)
== END 2018-03-19 23:59 ==
LOC: HHLAB 17:38
PROVIDERS: Family Provider Family Medicine; PCP Family Medicine; Referring Provider Family Medicine; Visit Provider Family Medicine
DX: L89.324 Pressure ulcer of left buttock, stage 4 (principal); L89.313 Pressure ulcer of right buttock, stage 3; N31.9 Neuromuscular dysfunction of bladder, unspecified
CPT/HCPCS: 81002; 87077; 87086; 87088; 87186

== ENCOUNTER 2018-02-26 12:11 | Inpatient (IN) | payer MEDICAID, SELFPAY ==
[2018-02-26] VITALS (7 sets, daily range): BP systolic 94–140; BP diastolic 52–86; PULSE 102–113; RESP 12–18; TEMP 36.6–36.9; O2SAT 95–99; BMI 31.8; BMI 31.9; BMI 28.0
--- NOTE | 2018-02-26 12:59 | ED.DCSUM_ITS ---
- ER Visit Summary Date of Service: 02/26/18 Chief Complaint: Hematuria History of Present Illness: The patient is a [address] Olivares and Dr. Silva. She reports she has hematuria that began yesterday. States he has a history of a neurogenic bladder. She last had her Rea changed yesterday. Rep orts that she has been nauseated this morning. She denies any fever, chills, vomiting, or other complaints. She had a urine culture February 22 that shows Serratia that is only sensitive to gentamicin and tobramycin. It is intermediate to Cipro. Physical Examination: Vitals: Stable. Afebrile. General: Well-nourished and well-developed. Head: Normocephalic atraumatic. Neck: Supple, no lymphadenopathy. No JVD. Nontender. Cardiovascular: Regular rate and rhythm. No murmurs. Respiratory: No respiratory distress. Clear to auscultation bilaterally. Abdominal: Soft, nontender, nondistended, normal bowel sounds. No guarding, rebound, or peritoneal signs. Back: Nontender. Extremities: Nontender, no edema. Skin: Normal color, no rash. Neurologic: Alert and oriented ?3. Cranial nerves II through XII are intact. Normal strength and sensation. Psych: Normal affect. Test Results: CBC is marked for a white count of 11.1 with 80 segmented neutrop hils and 11 lymphocytes. Lactic acid is 1.8. Hemoglobin is 11.9. Chem-7 more for BUN of 31. LFTs are remarkable for an AST of 14, total protein of 8.5, albumin 3.1, globulin 5.4. Coags are normal. Emergency Department Course and Treatment: Patient had her catheter irrigated. She was given gentamicin IV. She is resting comfortably. Treatment Plan: Patient was discussed with Dr. Frost. She will be admitted to the hospital for further evaluation and treatment. Disposition: Admitted in stable condition. Impression: 1. Hematuria. 2. Serratia UTI, multidrug resistant. This note was generated with [employer] dictation software. It may contain incorrect words, spelling, and punctuation that were not noted in review of the chart prior to signing ED Disposition - Plan for ED Patient: Chief Complaint: Complaint
[2018-02-26] MEDS: 0.9% Normal Saline 1,000 ML 1000 ML IV (13:09)
[2018-02-26 13:25] LABS: Absolute Lymphocyte Count 1.23 X10^3/ul (0.83-4.51); Absolute Neutrophil Count 8.8 X10^3/uL (2.0-7.7); Basophil# 0.03 X10^3/uL; Basophil% 0.3 % (0-1); Eosinophil# 0.16 X10^3/uL; Eosinophils% 1.4 % (0-5); Hematocrit 37.3 % (37-47); Hemoglobin 11.9 g/dl (12.0-15.0); Lymphocyte # 1.23 X10^3/ul (4.0); Lymphocyte % 11.1 % (19-41); Mean Corp Hgb Conc 31.9 g/gl (32-36); Mean Corpuscular Volume 84.6 fL (81-99); Mean Platelet Vol. 8.9 fl (6.2-12.0); Monocyte# 0.75 X10^3/uL; Monocyte% 6.8 % (0-10); Neutrophil # 8.84 X10^3/uL (2.7-7.7); Platelet Count 329 K/mm3 (150-450); RBC Distribution Width CV 16.4 % (11.6-14.6); RBC Distribution Width SD 50.2 fl (35.1-43.9); Red Blood Count 4.41 M/mm3 (4.2-5.4); White Blood Count 11.1 K/mm3 (4.4-11.0)
[2018-02-26 13:27] LABS: POSITIVE COUNT NO; POSITIVE DIFFERENTIAL NO; POSITIVE MORPHOLOGY NO
[2018-02-26 13:29] LABS: International Normalized Ratio 1.1; Prothrombin Time (Protime)PT. 13.7 SECONDS (11.7-14.9)
[2018-02-26 13:30] LABS: Partial Thromboplast Time 32.2 Seconds (24.1-36.2)
[2018-02-26 13:38] LABS: ALB/GLOB Ratio 0.6 RATIO (0.9-2.4); AST(SGOT) 14 U/L (15-37); Alanine Aminotransfer ALT/SGPT 20 U/L (13-56); Albumin, Serum 3.1 g/dL (3.2-5.0); Alkaline Phosphatase 84 U/L (45-117); Anion Gap 9 (5-15); BUN 31 mg/dL (7-18); BUN/Creat Ratio 45.3 RATIO (10-20); Calcium,Total 9.1 mg/dL (8.5-10.1); Chloride 101 mmol/L (98-107); Creatinine, Serum 0.68 mg/dL (0.55-1.02); EST Glomerular Filtration Rate 90 mL/min (>60); Est Glom Filt Rate - Afr Amer 109 mL/min (>60); Estimated Creatinine Clearance 43.92 ml/min; Globulin 5.4 g/dL (2.2-4.2); Glucose 88 mg/dL (74-106); Potassium 4.2 mmol/L (3.5-5.1); Protein, Total 8.5 g/dL (6.4-8.2); Sodium Level 137 mmol/L (136-145)
[2018-02-26 13:45] LABS: Lactic Acid 1.8 mmol/L (0.4-2.0)
--- NOTE | 2018-02-26 14:24 | HP.PCM_ITS ---
Problem List (1) Complicated urinary tract infection Status: Acute (2) Hematuria Status: Acute Qualifiers: Hematuria type: unspecified type Qualified Code(s): R31.9 - Hematuria, unspecified (3) Neurogenic bladder Status: Chronic (4) Hypertension Status: Chronic Qualifiers: Hypertension type: essential hypertension Qualified Code(s): I10 - Essential (primary) hypertension (5) Gout Status: Chronic Qualifiers: Gout site: unspecified site Gout etiology: unspecified cause Chronicity: unspecified Qualified Code(s): M10.9 - Gout, unspecified Comment: with arthropathy (6) Diabetic neuropathy, type II diabetes mellitus Status: Chronic Qualifiers: Diabetes mellitus mortarman insulin use: without mortarman use Qualified Code(s): E11.40 - Type 2 diabetes mellitus with diabetic neuropathy, unspecified (7) Colostomy in place Status: Chronic (8) Anemia of chronic disease Status: Chronic (9) Dupuytren's contracture of right hand Status: Chronic (10) Spinal stenosis Status: Chronic Qualifiers: Spinal region: lumbosacral Qualified Code(s): M48.07 - Spinal stenosis, lumbosacral region (11) Hyperlipidemia Status: Chronic Qualifiers: Hyperlipidemia type: unspecified Qualified Code(s): E78.5 - Hyperlipidemia, unspecified (12) RP (rectal prolapse) Status: Chronic History of Present Illness Date of Admission: 02/26/18 Chief Complaint: Hematuria, UTI The patient is a 68 y/o F w/ PMHx: History of Chronic Non-healing BL LE wounds and B/L buttock wounds ([facility]), Spinal Stenosis and Peripheral Neuropathy, Neurogenic bladder w/ chronic roach catheter, HTN, HLD, Diabetes mellitus type II, Gout, Rectal Prolapse s/p colostomy placement, AOCD, Severe deconditioning who presents to the [facility] ED on 02/26/18 with history of hematuria starting the day prior w/ dysuria, suprapubic tenderness w/ last roach change the day prior. She denies any fevers or chills. She has been taking keflex prior to current presentation, directed to ED transition given notable resistance patterns requiring IV abx therapies only. She notes she was supposed to have next [facility] evaluation on 02/27/18. In the ED work-up in the ED included T 98.4, heart rate 109, BP 140/85, respiratory rate 18, 99% on room air, CBC w/ WBC 11.1, Hgb 11.9, Plts 329 with L shift, unremarkable coags, CMP with BUN/creatinine 31/0.68, lactic acid 1.8, cultures obtained per ED, recent 02/22/18 UCx w/ Serratia marcescens sensitive to only gentamicin and tobramycin. Past Medical History Past Medical History (Chronic Problems): Chronic Problems Open wound of left thigh (Chronic) traumatic skin tear posterior thigh Incompetent urethral closure mechanism (Chronic) Neurogenic bladder (Chronic) Stage II pressure ulcer (Chronic) Chronic suprapubic catheter (Chronic) Diabetes mellitus type 2 in nonobese (Chronic) Hypertension (Chronic) Gout (Chronic) with arthropathy Pressure ulcer of left buttock, stage 3 (Chronic) left lower buttock/upper thigh area Diabetes mellitus (Chronic) Pressure ulcer of right buttock, stage 3 (Chronic) Diabetic neuropathy, type II diabetes mellitus (Chronic) Malnutrition (Chronic) Back pain (Chronic) Arthritis (Chronic) 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 significance to followup Anemia of chronic disease (Chronic) Physical deconditioning (Chronic) Dupuytren's contracture of right hand (Chronic) Spinal stenosis (Chronic) Hyperlipidemia (Chronic) RP (rectal prolapse) (Chronic) Allergies No Known Allergies Allergy (Verified 02/26/18 12:12) Home Medications: Ambulatory Orders Medication Instructions Recorded Allopurinol [Zyloprim] 200 mg PO DAILY 07/05/14 Latanoprost 0.005% [Xalatan 1 drop EACH EYE QHS 07/05/14 Opthalmic] Losartan Potassium [Cozaar] 25 mg PO DAILY 07/05/14 Multivitamins,Therapeutic 1 tablet PO DAILY 07/05/14 [Multivitamin] Simvastatin [Zocor] 10 mg PO QHS 07/05/14 Timolol Maleate [Timoptic-XE 0.5%] 1 drop EACH EYE DAILY 07/05/14 Potassium Chloride [K-Dur] 20 meq PO DAILY 06/29/15 Saxagliptin HCl [Onglyza] 5 mg PO DAILY 07/01/17 Solifenacin Succinate [Vesicare] 10 mg PO DAILY 07/01/17 Ascorbic Acid [Vitamin C] 500 mg PO DAILY@0800 09/09/17 Mirabegron [Myrbetriq] 50 mg PO DAILY 11/23/17 Cephalexin [Keflex] 500 mg PO DAILY 02/26/18 Furosemide [Lasix] 20 mg PO DAILY 02/26/18 Ibuprofen 200 mg PO PRN PRN 02/26/18 Metformin HCl [Glucophage] 1,000 mg PO BID 02/26/18 Surgical History: - - Surgery for rectal prolapse with anterior resection and rectopexy at [facility] in 2008 and back surgery 1979. Colostomy was November 2012. She had blood transfusions in October 2012 at [facility] for blood loss anemia. excision left ischial pressure sore with partial ostectomy for osteomyelitis and excision right ischial pressure sore and excision left lateral ankle pressure sore with partial ostectomy for osteomyelitis in 08/01. 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 Denies: Chills, Fever, Weight Change HEENT: Denies: Head Aches, Sinus Congestion, Sinus Drainage Cardiovascular: Denies: Chest Pain, Palpitations Respiratory: Denies: Cough, Shortness of breath at rest, Sputum production Gastrointestinal: Reports: Abdominal Pain. Denies: Nausea, Vomiting Genitourinary: Reports: Dysuria, Incontinence, Retention Musculoskeletal: Denies: Joint Tenderness Skin: Reports: Skin Changes, Wounds. Denies: Rash Neurological: Reports: Focal weakness, Incoordination. Denies: Numbness, Tingling Psychiatric: Denies: Anxiety, Depression, Homicidal Ideations, Suicidal Ideations Hematologic/ Lymphatic: Reports: Anemia. Denies: Easy Bruising, Easy Bleeding VTE Information - Inpt Only VTE Present on Admission: No VTE Mechan Device Prophylaxis: SCD's VTE Pharm Prophylaxis ordered?: No Reason prophylaxis not ordered:: Medical Contraindication Patient Problems: Active and Suspected Problems Complicated urinary tract infection (Acute) Hematuria (Acute) Subjective: Seated upright in the ED bed, fatigued, appearing, NAD otherwise. Objective: Physical Examination: General: awake, alert, oriented x 3 and cooperative, seated upright in the ED bed in no apparent distress. Skin: normal color, turgor, no icterus, cyanosis except occasional extremity ecchymoses, bilateral stage III ischial decubitus ulcers, noninfected appearing. HEENT: AT/NC, EOMI, PERRLA, mildly dry MM, no carotid bruits or JVD noted. Lungs: Diminished BS BL, > BL bases, moderate effort, mild decrease BL bases, no rales, ronchi or wheezing. Heart: Regular rate and rhythm; no gallop, rub audible. Abdomen: soft, obese, ostomy in place with appropriate output, NTTP, ND, mildly hyperactive BS, no HSM, roach w/ gross hematuria, no clots. Extremities: no cyanosis, clubbing, BL ankle edema, non-pitting. Neurological: patient awake, alert, oriented x 3; cognitive function intact; pupils equally reactive to light and accomodation; cranial nerves II-XII grossly normal, moving all 4 extremities, chronic contracture RUE, no focal deficits, strength severely globally decreased. Psychiatric: affect appears normal, no acute evidence of depressive or anxiety feelings. - Physical Exam Vital Signs Temp Pulse Resp BP Pulse Ox 98.3 F 109 H 18 140/85 H 99 02/26/18 12:40 02/26/18 12:12 02/26/18 12:12 02/26/18 12:12 02/26/18 12:12 Oxygen Delivery Method Room Air Weight: 180 lb Body Mass Index (BMI) 31.8 Finger Stick Blood Glucose 109 Laboratory Tests Past 24 Hrs 02/26/18 02/26/18 02/26/18 13:10 13:10 13:10 WBC 11.1 H RBC 4.41 Hgb 11.9 L Hct 37.3 MCV 84.6 MCH 27.0 MCHC 31.9 L RDW 16.4 H RDW Differential 50.2 H Plt Count 329 MPV 8.9 Immature Gran % (Auto) 0.400 Neut % (Auto) 80.0 H Lymph % (Auto) 11.1 L [place] % (Auto) 6.8 Eos % (Auto) 1.4 Baso % (Auto) 0.3 Absolute Neuts (auto) 8.8 H Absolute Lymphs (auto) 1.23 Total Counted Not Reportable PT 13.7 INR 1.1 APTT 32.2 Sodium 137 Potassium 4.2 Chloride 101 Carbon Dioxide 27.0 Anion Gap 9 BUN 31 H Creatinine 0.68 Estim Creat Clear Calc 43.92 Est GFR (MDRD) Af Amer 109 Est GFR (MDRD) Non-Af 90 BUN/Creatinine Ratio 45.3 H Glucose 88 Lactic Acid Calcium 9.1 Total Bilirubin 0.30 AST 14 L ALT 20 Alkaline Phosphatase 84 Total Protein 8.5 H Albumin 3.1 L Globulin 5.4 H Albumin/Globulin Ratio 0.6 L 02/26/18 13:10 WBC RBC Hgb Hct MCV MCH MCHC RDW RDW Differential Plt Count MPV Immature Gran % (Auto) Neut % (Auto) Lymph % (Auto) [place] % (Auto) Eos % (Auto) Baso % (Auto) Absolute Neuts (auto) Absolute Lymphs (auto) Total Counted PT INR APTT Sodium Potassium Chloride Carbon Dioxide Anion Gap BUN Creatinine Estim Creat Clear Calc Est GFR (MDRD) Af Amer Est GFR (MDRD) Non-Af BUN/Creatinine Ratio Glucose Lactic Acid 1.8 Calcium Total Bilirubin AST ALT Alkaline Phosphatase Total Protein Albumin Globulin Albumin/Globulin Ratio Assessment/Plan All Active Problems Complicated urinary tract infection (Acute) Hematuria (Acute) Pressure ulcer of left buttock, stage 2 (Resolved) The patient is a 68 y/o F w/ PMHx: History of Chronic Non-healing BL LE wounds and B/L buttock wounds ([facility]), Spinal Stenosis and Peripheral Neuropathy, Neurogenic bladder w/ chronic roach catheter, HTN, HLD, Diabetes mellitus type II, Gout, Rectal Prolapse s/p colostomy placement, AOCD, Severe deconditioning who presents to the [facility] ED on 02/26/18 with history of hematuria starting the day prior w/ dysuria, suprapubic tenderness w/ last roach change the day prior. (1) Acute Complicated Serratia Urinary Tract Infection w/ Neurogenic bladder w/ chronic roach catheter: Will admit to [facility] upon ED evaluation remarkable, pending UCx, admission CBC w/ WBC 11.1 with L shift, continue IVFs, monitor I/Os, continue IV Tobra w/ transition as able pending sensitivities and speciation. Bld cx x 2 obtained in the ED. If clots occur with any concern of roach obstruction will need to consider irrigation initiation. (2) Spinal Stenosis and Peripheral Neuropathy, Neurogenic bladder: PT, OT, CM for discharge planning, position changes, barrier cream as needed, chronic roach catheter w/ most recent change the day prior to current presentation. (3) History of Rectal Prolapse: s/p colostomy, press room supervisor consultation. (4) Diabetes mellitus type II: Hold oral home regimen, continue home insulin regimen, ADA diet, accu checks w/ ISS. (5) Obesity: Weight loss and lifestyle changes encouraged. (6) Hypertension: Continue home regimen including Lasix, losartan, PRN hydralazine. (7) Hyperlipidemia: Continue home statin regimen. AM FLP. (8) AOCD: Admission Hgb 11.9, baseline Hgb 9-10, will trend HH given notable hematuria, repeat CBC in AM. (9) Chronic Non-healing BL LE wounds and B/L buttock wounds, Ischial, Stage III: Long history of following w/ [facility]. Will continue Aquacel for all the ischial/buttock pressure ulcerations. Offloading. Wound RN consulted and made aware of patient. (10) DVT Prophylaxis: SCDs, defer chemoprophylaxis given notable hematuria. Code Visit Inpatient E&M: 25316 Init Hosp L3
--- NOTE | 2018-02-26 14:39 | ED.RN ---
ONLY ONE SET OF BLOOD CULTURES WERE DRAWN PRIOR TO START OF ATB, A RESULT ONLY 1 SET WAS OBTAINED IN ED.
[2018-02-26] MEDS: 0.9% Normal Saline 1,000 ML 100 ML IV (18:04)
[2018-02-26 18:05] LABS: Hematocrit 37.8 % (37-47); Hemoglobin 11.6 g/dl (12.0-15.0)
[2018-02-26 18:06] LABS: Bedside Glucose 90 mg/dL (70-110)
[2018-02-26 18:16] LABS: Magnesium 1.4 mg/dL (1.6-2.6)
--- NOTE | 2018-02-26 21:02 | PCM.RX.CS ---
Consult Pharmacy has been consulted to manage selected antiobiotic: Tobramycin Type of Consult: New start Suspected Infection: Other Prior Doses of Antibiotics Received/Current Regimen: gentamicin 370mg IV given 02/26/18 at 1300 in the ER Labs: Sodium 137 mmol/L (136-145) 02/26/18 13:10 Potassium 4.2 mmol/L (3.5-5.1) 02/26/18 13:10 Chloride 101 mmol/L (98-107) 02/26/18 13:10 Carbon Dioxide 27.0 mmol/L (21.0-32.0) 02/26/18 13:10 Anion Gap 9 (5-15) 02/26/18 13:10 BUN 31 mg/dL (7-18) H 02/26/18 13:10 Creatinine 0.68 mg/dL (0.55-1.02) 02/26/18 13:10 Est GFR (MDRD) Af Amer 109 mL/min (>60) 02/26/18 13:10 Est GFR (MDRD) Non-Af 90 mL/min (>60) 02/26/18 13:10 BUN/Creatinine Ratio 45.3 RATIO (10-20) H 02/26/18 13:10 Glucose 88 mg/dL (74-106) 02/26/18 13:10 Microbiology: Pending Weight used for dosin.4 kg Estimated Creatinine Clearance: 44ml/min Goal Trough: Other - <1.0 (random) Pharmacy Plan for Drug Dosing: Recommend Tobramycin 260mg (5mg/kg ideal body weight) q24h to be started 24 hours after the ER dose of gentamicin. Random level to be drawn 16 hours after 1st tobramycin dose Pharmacy Service will continue to monitor and adjust dosing as required. Follow-Up Labs: Trough Tobramycin - random level Labs to be done on [date and time ordered]: random level 02/28/18 at 0500
[2018-02-26] MEDS: Latanoprost 0.005% 1 Bottle 1 DRP EACH EYE (22:12)
[2018-02-26] MEDS: Insulin Lispro 100 UNIT/ML INSULN.PEN SC (22:13)
[2018-02-26] MEDS: Atorvastatin Calcium 10 MG Tablet 5 MG PO (22:13)
[2018-02-26 22:30] LABS: Bedside Glucose 161 mg/dL (70-110)
[2018-02-26] MEDS: Menthol/Lanolin/Calamine/Znox 113 GM Tube 1 APPLIC TOPICAL (22:56)
[2018-02-26 23:22] LABS: Hematocrit 31.4 % (37-47); Hemoglobin 9.8 g/dl (12.0-15.0)
[2018-02-27 03:57] VITALS: BP 112/73; PULSE 98; RESP 18; TEMP 37.1; O2SAT 97
[2018-02-27] MEDS: 0.9% Normal Saline 1,000 ML 100 ML IV ×2 (06:13→15:35)
[2018-02-27] MEDS: Menthol/Lanolin/Calamine/Znox 113 GM Tube 1 APPLIC TOPICAL ×3 (06:42→21:01)
[2018-02-27 06:51] LABS: Bedside Glucose 119 mg/dL (70-110)
[2018-02-27 08:49] LABS: Absolute Lymphocyte Count 1.06 X10^3/ul (0.83-4.51); Absolute Neutrophil Count 3.9 X10^3/uL (2.0-7.7); Basophil# 0.01 X10^3/uL; Basophil% 0.2 % (0-1); Eosinophil# 0.21 X10^3/uL; Eosinophils% 3.7 % (0-5); Hematocrit 34.6 % (37-47); Hemoglobin 10.7 g/dl (12.0-15.0); Lymphocyte # 1.06 X10^3/ul (4.0); Lymphocyte % 18.6 % (19-41); Mean Corp Hgb Conc 30.9 g/gl (32-36); Mean Corpuscular Hgb 26.2 pg (27.0-32.0); Mean Corpuscular Volume 84.6 fL (81-99); Mean Platelet Vol. 9.1 fl (6.2-12.0); Monocyte# 0.47 X10^3/uL; Monocyte% 8.3 % (0-10); Neutrophil # 3.93 X10^3/uL (2.7-7.7); POSITIVE COUNT NO; POSITIVE DIFFERENTIAL NO; POSITIVE MORPHOLOGY NO; Platelet Count 267 K/mm3 (150-450); RBC Distribution Width CV 16.4 % (11.6-14.6); RBC Distribution Width SD 49.7 fl (35.1-43.9); Red Blood Count 4.09 M/mm3 (4.2-5.4); White Blood Count 5.7 K/mm3 (4.4-11.0)
[2018-02-27 09:04] LABS: Anion Gap 8 (5-15); BUN 21 mg/dL (7-18); BUN/Creat Ratio 38.5 RATIO (10-20); Calcium,Total 7.9 mg/dL (8.5-10.1); Chloride 108 mmol/L (98-107); Creatinine, Serum 0.55 mg/dL (0.55-1.02); EST Glomerular Filtration Rate 117 mL/min (>60); Est Glom Filt Rate - Afr Amer 142 mL/min (>60); Estimated Creatinine Clearance 43.92 ml/min; Glucose 115 mg/dL (74-106); Potassium 4.2 mmol/L (3.5-5.1); Sodium Level 139 mmol/L (136-145)
[2018-02-27 10:48] VITALS: BP 124/74; PULSE 108; RESP 18; TEMP 36.8; O2SAT 97
[2018-02-27] MEDS: Allopurinol 100 MG Tablet 200 MG PO (10:55)
[2018-02-27] MEDS: Tolterodine Tartrate 4 MG CAP.SA PO (10:55)
[2018-02-27] MEDS: Ascorbic Acid 500 MG Tablet PO (10:55)
[2018-02-27] MEDS: Losartan Potassium 25 MG Tablet PO (10:55)
[2018-02-27] MEDS: Multivitamins,Therapeutic Tablet 1 TABLET PO (10:55)
[2018-02-27] MEDS: Mirabegron 50 MG TAB.ER.24H PO (10:55)
[2018-02-27] MEDS: Furosemide 20 MG Tablet PO (10:55)
--- NOTE | 2018-02-27 11:24 | PCM.PN.HOSP ---
Patient Problems: Active and Suspected Problems Complicated urinary tract infection (Acute) Hematuria (Acute) Subjective: Patient seen and examined. She was admitted with a complaint of hematuria with assisted dysuria and suprapubic tenderness with last Roach change being the day prior to admission. Shortness chills. She has been on chronic Keflex prior to current presentation and urine culture sensitivity showed Serratia which had multiple resistance patterns and she required IV antibiotics. She is being managed for complicated UTI. She has no complaints and feels well. She denied any fever or chills, cough or chest pain, shortness of breath, abdominal pain, any diarrhea vomiting. Review of systems otherwise negative. Labs and vitals reviewed. Vitals/I&O's: Vital Signs Temp Pulse Resp BP Pulse Ox 98.3 F 108 H 18 124/74 H 97 02/27/18 10:48 02/27/18 10:48 02/27/18 10:48 02/27/18 10:48 02/27/18 10:48 Oxygen Delivery Method Room Air Weight: 158 lb 8 oz Body Mass Index (BMI) 28.0 Finger Stick Blood Glucose 109 Intake and Output for Last 24 Hours 02/25/18 02/26/18 02/27/18 23:59 23:59 23:59 Intake Total 700 / 700 800 / 800 Output Total 500 / 500 675 / 675 Balance 200 / 200 125 / 125 General: Alert, Oriented x3, Cooperative, No apparent distress HEENT: Atraumatic, PERRLA, EOMI, Normocephalic Oral: Moist Mucosa Neck: Supple, No JVD, Negative Carotid Bruits, Negative Hepatojugular Reflux, No Nodes Lungs: Clear to auscultation, Normal air movement, No rhonchi, No wheeze, No rales Cardiovascular: Regular rate, Regular Rhythm, Normal S1, Normal S2, No murmurs Abdomen: Bowel Sounds Present, Soft, Non Tender, Non-Distended, No Hepato-splenomegaly, - - colostomy bag filled with scanty amount of stool Extremities: No clubbing, No cyanosis, - - mild bipedal pitting edema; Skin: No rashes, No breakdown Musculoskeletal: No Tenderness to Palpation of Joints or Extremities Lymphatic: No Cervical, Supraclavicular, or Inguinal Adenopathy Neurological: Cranial nerves II-XII grossly intact, - - power 2/5 in LEs due to paraplegia Psych/Mental Status: Normal Affect, Appropriate, Alert and oriented to time, place, person, mood and affect Laboratory Results 02/26/18 13:10: WBC 11.1 H, RBC 4.41, Hgb 11.9 L, Hct 37.3, MCV 84.6, MCH 27.0, MCHC 31.9 L, RDW 16.4 H, RDW Differential 50.2 H, Plt Count 329, MPV 8.9, Immature Gran % (Auto) 0.400, Neut % (Auto) 80.0 H, Lymph % (Auto) 11.1 L, [place] % (Auto) 6.8, Eos % (Auto) 1.4, Baso % (Auto) 0.3, Absolute Neuts (auto) 8.8 H, Absolute Lymphs (auto) 1.23, Total Counted Not Reportable 02/26/18 13:10: PT 13.7, INR 1.1, APTT 32.2 02/26/18 13:10: Sodium 137, Potassium 4.2, Chloride 101, Carbon Dioxide 27.0, Anion Gap 9, BUN 31 H, Creatinine 0.68, Estim Creat Clear Calc 43.92, Est GFR (MDRD) Af Amer 109, Est GFR (MDRD) Non-Af 90, BUN/Creatinine Ratio 45.3 H, Glucose 88, Calcium 9.1, Total Bilirubin 0.30, AST 14 L, ALT 20, Alkaline Phosphatase 84, Total Protein 8.5 H, Albumin 3.1 L, Globulin 5.4 H, Albumin/Globulin Ratio 0.6 L 02/26/18 13:10: Lactic Acid 1.8 02/26/18 17:23: Magnesium 1.4 L 02/26/18 17:23: Hgb 11.6 L, Hct 37.8 02/26/18 17:56: POC Glucose 90 02/26/18 22:10: POC Glucose 161 H 02/26/18 23:14: Hgb 9.8 L, Hct 31.4 L 02/27/18 06:40: POC Glucose 119 H 02/27/18 08:25: WBC 5.7, RBC 4.09 L, Hgb 10.7 L, Hct 34.6 L, MCV 84.6, MCH 26.2 L, MCHC 30.9 L, RDW 16.4 H, RDW Differential 49.7 H, Plt Count 267, MPV 9.1, Immature Gran % (Auto) 0.200, Neut % (Auto) 69.0, Lymph % (Auto) 18.6 L, [place] % (Auto) 8.3, Eos % (Auto) 3.7, Baso % (Auto) 0.2, Absolute Neuts (auto) 3.9, Absolute Lymphs (auto) 1.06, Total Counted Not Reportable 02/27/18 08:25: Sodium 139, Potassium 4.2, Chloride 108 H, Carbon Dioxide 23.0, Anion Gap 8, BUN 21 H, Creatinine 0.55, Estim Creat Clear Calc 43.92, Est GFR (MDRD) Af Amer 142, Est GFR (MDRD) Non-Af 117, BUN/Creatinine Ratio 38.5 H, Glucose 115 H, Calcium 7.9 L Current Medications Acetaminophen (Tylenol) 650 mg PO Q6H PRN PRN PRN Reason: Mild Pain (scale 0-3)/T>100.7 Al Hydroxide/Mg Hydroxide (Mylanta Ii) 30 ml PO Q6H PRN PRN PRN Reason: Gastric burning Allopurinol (Zyloprim) 200 mg PO DAILY@0800 [facility] Last Admin: 02/27/18 10:55 Dose: 200 mg Ascorbic Acid (Vitamin C) 500 mg PO DAILY@0800 [facility] Last Admin: 02/27/18 10:55 Dose: 500 mg Atorvastatin Calcium (Lipitor) 5 mg PO QHS [facility] Last Admin: 02/26/18 22:13 Dose: 5 mg Calamine/Phenol (Calmoseptine Ointment) 1 applic TOPICAL TID [facility]; Protocol Last Admin: 02/27/18 06:42 Dose: 1 applicatio Furosemide (Lasix) 20 mg PO DAILY [facility] Last Admin: 02/27/18 10:55 Dose: 20 mg Sodium Chloride () 1,000 mls @ 100 mls/hr IV .Q10H [facility] Last Admin: 02/27/18 06:13 Dose: 100 mls/hr Tobramycin Sulfate 260 mg/ (Dextrose) 56.5 mls @ 100 mls/hr IV Q24H [facility] Insulin Human Lispro (Humalog Kwikpen (Bkc)) 0 unit SC ACHS [facility]; Protocol Last Admin: 02/27/18 06:42 Dose: Not Given Latanoprost (Xalatan Opthalmic) 1 drop EACH EYE QHS [facility] Last Admin: 02/26/18 22:12 Dose: 1 drop Losartan Potassium (Cozaar) 25 mg PO DAILY [facility] Last Admin: 02/27/18 10:55 Dose: 25 mg Magnesium Hydroxide (Milk Of Magnesia) 30 ml PO DAILY PRN PRN PRN Reason: Constipation Morphine Sulfate () 2 - 4 mg IV Q3H PRN PRN PRN Reason: Severe Pain (pain scale 6-10) Morphine Sulfate () 1 - 2 mg IV Q4H PRN PRN PRN Reason: Moderate Pain (pain scale 4-5) Multivitamins (Multivitamin) 1 tablet PO DAILY@1200 [facility] Last Admin: 02/27/18 10:55 Dose: 1 tablet Nutritional Formula (Lactose Free) (Glucerna Shake) 120 ml PO 4X/DAY [facility] Last Admin: 02/27/18 11:02 Dose: Not Given Ondansetron HCl (Zofran) 4 mg IV Q8H PRN PRN PRN Reason: NAUSEA Oxycodone HCl (Oxyir) 5 mg PO Q4H PRN PRN PRN Reason: Moderate Pain (pain scale 4-5) Potassium Chloride (K-Dur) 20 meq PO DAILY@0800 [facility] Last Admin: 02/27/18 10:55 Dose: 20 meq Promethazine HCl (Phenergan) 12.5 mg IV Q6H PRN PRN PRN Reason: NAUSEA/VOMITING Sodium Chloride () 5 - 30 ml IV UD PRN PRN Reason: SALINE FLUSH Timolol Maleate (Timoptic) 1 drop EACH EYE BID [facility] Tolterodine Tartrate (Detrol La) 4 mg PO DAILY [facility] Last Admin: 02/27/18 10:55 Dose: 4 mg Medical Necessity - Tobacco Use Smoking Status: Never smoker Tobacco Use: Non-smoker Assessment/Plan All Active Problems Complicated urinary tract infection (Acute) Hematuria (Acute) Pressure ulcer of left buttock, stage 2 (Resolved) 1. Acute complicated UTI Has history of neurogenic bladder chronic Roach catheter and peripheral neuropathy. Had hematuria and associated dysuria. Has Roach catheter changed every week and was last changed the day before presentation. Urine cultured Serratia which was multiple drug resistance and is only sensitive to IV gentamicin and tobramycin currently on IV tobramycin. blood cultures pending. white cell count is 5.7 today 2. Spinal stenosis and peripheral neuropathy has neurogenic bladder PT/OT on board roach catheter changed 1 day prior to admission 3. History of rectal prolapse: Stable. Has colostomy bag. Ostomy nurse consulted. 4. Type 2 diabetes mellitus: On insulin and insulin sliding scale. Accu-Cheks AC at bedtime. 5. Hypertension: On losartan and Lasix. Hydrate. 6. Hyperlipidemia: On statin 7. Chronic stage II pressure ulcers Present on admission. Follows up at wound care center. Wound nurse consulted. DVT prophylaxis: SCs Code Visit Inpatient E&M: 29262 Subs Hosp L3
--- NOTE | 2018-02-27 11:29 | PN_ITS ---
Patient Problems: Active and Suspected Problems Complicated urinary tract infection (Acute) Hematuria (Acute) Subjective: Patient seen and examined. She was admitted with a complaint of hematuria with assisted dysuria and suprapubic tenderness with last Roach change being the day prior to admission. Shortness chills. She has been on chronic Keflex prior to current presentation and urine culture sensitivity showed Serratia which had multiple resistance patterns and she required IV antibiotics. She is being managed for complicated UTI. She has no complaints and feels well. She denied any fever or chills, cough or chest pain, shortness of breath, abdominal pain, any diarrhea vomiting. Review of systems otherwise negative. Labs and vitals reviewed. Vitals/I&O's: Vital Signs Temp Pulse Resp BP Pulse Ox 98.3 F 108 H 18 124/74 H 97 02/27/18 10:48 02/27/18 10:48 02/27/18 10:48 02/27/18 10:48 02/27/18 10:48 Oxygen Delivery Method Room Air Weight: 158 lb 8 oz Body Mass Index (BMI) 28.0 Finger Stick Blood Glucose 109 Intake and Output for Last 24 Hours 02/25/18 02/26/18 02/27/18 23:59 23:59 23:59 Intake Total 700 / 700 800 / 800 Output Total 500 / 500 675 / 675 Balance 200 / 200 125 / 125 General: Alert, Oriented x3, Cooperative, No apparent distress HEENT: Atraumatic, PERRLA, EOMI, Normocephalic Oral: Moist Mucosa Neck: Supple, No JVD, Negative Carotid Bruits, Negative Hepatojugular Reflux, No Nodes Lungs: Clear to auscultation, Normal air movement, No rhonchi, No wheeze, No rales Cardiovascular: Regular rate, Regular Rhythm, Normal S1, Normal S2, No murmurs Abdomen: Bowel Sounds Present, Soft, Non Tender, Non-Distended, No Hepato- splenomegaly, - - colostomy bag filled with scanty amount of stool Extremities: No clubbing, No cyanosis, - - mild bipedal pitting edema; Skin: No rashes, No breakdown Musculoskeletal: No Tenderness to Palpation of Joints or Extremities Lymphatic: No Cervical, Supraclavicular, or Inguinal Adenopathy Neurological: Cranial nerves II-XII grossly intact, - - power 2/5 in LEs due to paraplegia Psych/Mental Status: Normal Affect, Appropriate, Alert and oriented to time, place, person, mood and affect Laboratory Results 02/26/18 13:10: WBC 11.1 H, RBC 4.41, Hgb 11.9 L, Hct 37.3, MCV 84.6, MCH 27.0, MCHC 31.9 L, RDW 16.4 H, RDW Differential 50.2 H, Plt Count 329, MPV 8.9, Immature Gran % (Auto) 0.400, Neut % (Auto) 80.0 H, Lymph % (Auto) 11.1 L, [place] % (Auto) 6.8, Eos % (Auto) 1.4, Baso % (Auto) 0.3, Absolute Neuts (auto) 8.8 H, Absolute Lymphs (auto) 1.23, Total Counted Not Reportable 02/26/18 13:10: PT 13.7, INR 1.1, APTT 32.2 02/26/18 13:10: Sodium 137, Potassium 4.2, Chloride 101, Carbon Dioxide 27.0, Anion Gap 9, BUN 31 H, Creatinine 0.68, Estim Creat Clear Calc 43.92, Est GFR (MDRD) Af Amer 109, Est GFR (MDRD) Non-Af 90, BUN/Creatinine Ratio 45.3 H, Glucose 88, Calcium 9.1, Total Bilirubin 0.30, AST 14 L, ALT 20, Alkaline Phosphatase 84, Total Protein 8.5 H, Albumin 3.1 L, Globulin 5.4 H, Albumin/Globulin Ratio 0.6 L 02/26/18 13:10: Lactic Acid 1.8 02/26/18 17:23: Magnesium 1.4 L 02/26/18 17:23: Hgb 11.6 L, Hct 37.8 02/26/18 17:56: POC Glucose 90 02/26/18 22:10: POC Glucose 161 H 02/26/18 23:14: Hgb 9.8 L, Hct 31.4 L 02/27/18 06:40: POC Glucose 119 H 02/27/18 08:25: WBC 5.7, RBC 4.09 L, Hgb 10.7 L, Hct 34.6 L, MCV 84.6, MCH 26.2 L, MCHC 30.9 L, RDW 16.4 H, RDW Differential 49.7 H, Plt Count 267, MPV 9.1, Immature Gran % (Auto) 0.200, Neut % (Auto) 69.0, Lymph % (Auto) 18.6 L, [place] % (Auto) 8.3, Eos % (Auto) 3.7, Baso % (Auto) 0.2, Absolute Neuts (auto) 3.9, Absolute Lymphs (auto) 1.06, Total Counted Not Reportable 02/27/18 08:25: Sodium 139, Potassium 4.2, Chloride 108 H, Carbon Dioxide 23.0, Anion Gap 8, BUN 21 H, Creatinine 0.55, Estim Creat Clear Calc 43.92, Est GFR (MDRD) Af Amer 142, Est GFR (MDRD) Non-Af 117, BUN/Creatinine Ratio 38.5 H, Glucose 115 H, Calcium 7.9 L Current Medications Acetaminophen (Tylenol) 650 mg PO Q6H PRN PRN PRN Reason: Mild Pain (scale 0-3)/T>100.7 Al Hydroxide/Mg Hydroxide (Mylanta Ii) 30 ml PO Q6H PRN PRN PRN Reason: Gastric burning Allopurinol (Zyloprim) 200 mg PO DAILY@0800 [facility] Last Admin: 02/27/18 10:55 Dose: 200 mg Ascorbic Acid (Vitamin C) 500 mg PO DAILY@0800 [facility] Last Admin: 02/27/18 10:55 Dose: 500 mg Atorvastatin Calcium (Lipitor) 5 mg PO QHS [facility] Last Admin: 02/26/18 22:13 Dose: 5 mg Calamine/Phenol (Calmoseptine Ointment) 1 applic TOPICAL TID [facility]; Protocol Last Admin: 02/27/18 06:42 Dose: 1 applicatio Furosemide (Lasix) 20 mg PO DAILY [facility] Last Admin: 02/27/18 10:55 Dose: 20 mg Sodium Chloride () 1,000 mls @ 100 mls/hr IV .Q10H [facility] Last Admin: 02/27/18 06:13 Dose: 100 mls/hr Tobramycin Sulfate 260 mg/ (Dextrose) 56.5 mls @ 100 mls/hr IV Q24H [facility] Insulin Human Lispro (Humalog Kwikpen (Bkc)) 0 unit SC ACHS [facility]; Protocol Last Admin: 02/27/18 06:42 Dose: Not Given Latanoprost (Xalatan Opthalmic) 1 drop EACH EYE QHS [facility] Last Admin: 02/26/18 22:12 Dose: 1 drop Losartan Potassium (Cozaar) 25 mg PO DAILY [facility] Last Admin: 02/27/18 10:55 Dose: 25 mg Magnesium Hydroxide (Milk Of Magnesia) 30 ml PO DAILY PRN PRN PRN Reason: Constipation Morphine Sulfate () 2 - 4 mg IV Q3H PRN PRN PRN Reason: Severe Pain (pain scale 6-10) Morphine Sulfate () 1 - 2 mg IV Q4H PRN PRN PRN Reason: Moderate Pain (pain scale 4-5) Multivitamins (Multivitamin) 1 tablet PO DAILY@1200 [facility] Last Admin: 02/27/18 10:55 Dose: 1 tablet Nutritional Formula (Lactose Free) (Glucerna Shake) 120 ml PO 4X/DAY [facility] Last Admin: 02/27/18 11:02 Dose: Not Given Ondansetron HCl (Zofran) 4 mg IV Q8H PRN PRN PRN Reason: NAUSEA Oxycodone HCl (Oxyir) 5 mg PO Q4H PRN PRN PRN Reason: Moderate Pain (pain scale 4-5) Potassium Chloride (K-Dur) 20 meq PO DAILY@0800 [facility] Last Admin: 02/27/18 10:55 Dose: 20 meq Promethazine HCl (Phenergan) 12.5 mg IV Q6H PRN PRN PRN Reason: NAUSEA/VOMITING Sodium Chloride () 5 - 30 ml IV UD PRN PRN Reason: SALINE FLUSH Timolol Maleate (Timoptic) 1 drop EACH EYE BID [facility] Tolterodine Tartrate (Detrol La) 4 mg PO DAILY [facility] Last Admin: 02/27/18 10:55 Dose: 4 mg Medical Necessity - Tobacco Use Smoking Status: Never smoker Tobacco Use: Non-smoker Assessment/Plan All Active Problems Complicated urinary tract infection (Acute) Hematuria (Acute) Pressure ulcer of left buttock, stage 2 (Resolved) 1. Acute complicated UTI * Has history of neurogenic bladder chronic Roach catheter and peripheral neuropathy. Had hematuria and associated dysuria. Has Roach catheter changed every week and was last changed the day before presentation. * Urine cultured Serratia which was multiple drug resistance and is only sensitive to IV gentamicin and tobramycin * currently on IV tobramycin. * blood cultures pending. * white cell count is 5.7 today * 2. Spinal stenosis and peripheral neuropathy * has neurogenic bladder * PT/OT on board * roach catheter changed 1 day prior to admission * 3. History of rectal prolapse: Stable. Has colostomy bag. Ostomy nurse consulted. 4. Type 2 diabetes mellitus: On insulin and insulin sliding scale. Accu-Cheks AC at bedtime. 5. Hypertension: On losartan and Lasix. Hydrate. 6. Hyperlipidemia: On statin 7. Chronic stage II pressure ulcers * Present on admission. Follows up at wound care center. Wound nurse consulted. * DVT prophylaxis: SCs Code Visit Inpatient E&M: 02228 Subs Hosp L3
[2018-02-27] MEDS: Insulin Lispro 100 UNIT/ML INSULN.PEN SC ×3 (12:18→21:05)
[2018-02-27] MEDS: Timolol 0.5% 5ML OPTH.BTL 1 DRP EACH EYE (12:19)
[2018-02-27 12:30] LABS: Bedside Glucose 153 mg/dL (70-110)
--- NOTE | 2018-02-27 12:35 | CASEMGMT ---
Referral received from ORQUIDEA ALVAREZ for SW to assist patient with completion of Advance Directives. SW attempted to assist patient however she was still eating her lunch and stated that she has not yet had time to review the blank documents which she already had been provided with. Update provided to ORQUIDEA ALVAREZ. Nikolas DUMONT,NICOLE
--- NOTE | 2018-02-27 12:38 | CM.UR ---
See semiconductor packages tester. Met face to face with patient, introduced myself and explained my role. She has been in multiple nursing homes--has difficulty remembering names but on in [facility] and a couple in [place]. But then her brother and vzwxxd-yq-mni brought her to their home. Currently she is getting SN services from [facility]. She gets [employer] via [employer] 3x per week ([employer]). Passport CM: Melvina Otero. She believes phone number is: [phone] Doesn't feel she'll need any additional services just resumption of current services. She is not sure where her current advance directives are. States they had to move a bunch of things around, in and out of house when her gegosq-gu-sey brought bed bugs home from a trip to [place] and they had to debug home. Willing to complete new advance directives. Gave her the forms and notified SW. Corona Rausch RN, [facility].
[2018-02-27 15:28] VITALS: BP 109/56; PULSE 108; RESP 18; TEMP 36.7; O2SAT 98
[2018-02-27] MEDS: Glucerna Shake 120 ML LIQUID PO ×2 (15:36→21:01)
[2018-02-27 16:50] LABS: Bedside Glucose 167 mg/dL (70-110)
[2018-02-27 20:54] VITALS: BP 117/77; PULSE 105; RESP 16; TEMP 37; O2SAT 97
[2018-02-27] MEDS: oxyCODONE 5 MG Tablet PO (21:02)
[2018-02-27] MEDS: Atorvastatin Calcium 10 MG Tablet 5 MG PO (21:02)
[2018-02-27] MEDS: Latanoprost 0.005% 1 Bottle 1 DRP EACH EYE (21:04)
[2018-02-27 21:19] VITALS: PULSE 105; O2SAT 97
[2018-02-27 21:20] LABS: Bedside Glucose 157 mg/dL (70-110)
[2018-02-28] VITALS (7 sets, daily range): BP systolic 104–145; BP diastolic 59–92; PULSE 98–110; RESP 16–18; TEMP 36.6–37.5; O2SAT 95–100
[2018-02-28] MEDS: 0.9% Normal Saline 1,000 ML 100 ML IV ×3 (02:01→21:39)
[2018-02-28] MEDS: Menthol/Lanolin/Calamine/Znox 113 GM Tube 1 APPLIC TOPICAL ×3 (06:28→21:38)
[2018-02-28 06:50] LABS: Absolute Lymphocyte Count 1.29 X10^3/ul (0.83-4.51); Absolute Neutrophil Count 4.1 X10^3/uL (2.0-7.7); Basophil# 0.01 X10^3/uL; Basophil% 0.2 % (0-1); Eosinophil# 0.19 X10^3/uL; Eosinophils% 3.1 % (0-5); Hematocrit 33.3 % (37-47); Hemoglobin 10.2 g/dl (12.0-15.0); Lymphocyte # 1.29 X10^3/ul (4.0); Mean Corp Hgb Conc 30.6 g/gl (32-36); Mean Corpuscular Hgb 26.1 pg (27.0-32.0); Mean Corpuscular Volume 85.2 fL (81-99); Mean Platelet Vol. 9.1 fl (6.2-12.0); Monocyte# 0.53 X10^3/uL; Monocyte% 8.6 % (0-10); Neutrophil % 66.8 % (47-70); Platelet Count 238 K/mm3 (150-450); RBC Distribution Width CV 16.7 % (11.6-14.6); Red Blood Count 3.91 M/mm3 (4.2-5.4); White Blood Count 6.1 K/mm3 (4.4-11.0)
[2018-02-28 06:56] LABS: Bedside Glucose 116 mg/dL (70-110)
[2018-02-28 07:03] LABS: POSITIVE COUNT NO; POSITIVE DIFFERENTIAL NO; POSITIVE MORPHOLOGY NO
[2018-02-28 07:11] LABS: Anion Gap 10 (5-15); BUN 23 mg/dL (7-18); BUN/Creat Ratio 37.5 RATIO (10-20); Calcium,Total 7.7 mg/dL (8.5-10.1); Chloride 107 mmol/L (98-107); Creatinine, Serum 0.61 mg/dL (0.55-1.02); EST Glomerular Filtration Rate 103 mL/min (>60); Est Glom Filt Rate - Afr Amer 124 mL/min (>60); Estimated Creatinine Clearance 43.92 ml/min; Glucose 112 mg/dL (74-106); Potassium 4.4 mmol/L (3.5-5.1); Sodium Level 141 mmol/L (136-145)
[2018-02-28] MEDS: Tolterodine Tartrate 4 MG CAP.SA PO (08:35)
[2018-02-28] MEDS: Furosemide 20 MG Tablet PO (08:36)
[2018-02-28] MEDS: Losartan Potassium 25 MG Tablet PO (08:36)
[2018-02-28] MEDS: Ascorbic Acid 500 MG Tablet PO (08:36)
[2018-02-28] MEDS: Mirabegron 50 MG TAB.ER.24H PO (08:36)
[2018-02-28] MEDS: Timolol 0.5% 5ML OPTH.BTL 1 DRP EACH EYE (08:37)
--- NOTE | 2018-02-28 09:34 | PHA.PHARE_ITS ---
Consult Pharmacy has been consulted to manage selected antiobiotic: Tobramycin Type of Consult: Follow-up Suspected Infection: Other Prior Doses of Antibiotics Received/Current Regimen: Tobramycin 260mg IV given 02/27/18 at 15:37 Labs: Sodium 141 mmol/L (136-145) 02/28/18 06:13 Potassium 4.4 mmol/L (3.5-5.1) 02/28/18 06:13 Chloride 107 mmol/L (98-107) 02/28/18 06:13 Carbon Dioxide 24.0 mmol/L (21.0-32.0) 02/28/18 06:13 Anion Gap 10 (5-15) 02/28/18 06:13 BUN 23 mg/dL (7-18) H 02/28/18 06:13 Creatinine 0.61 mg/dL (0.55-1.02) 02/28/18 06:13 Est GFR (MDRD) Af Amer 124 mL/min (>60) 02/28/18 06:13 Est GFR (MDRD) Non-Af 103 mL/min (>60) 02/28/18 06:13 BUN/Creatinine Ratio 37.5 RATIO (10-20) H 02/28/18 06:13 Glucose 112 mg/dL (74-106) H 02/28/18 06:13 Random Tobramycin 1.50 ug/mL 02/28/18 06:13 Estimated Creatinine Clearance: 43.9 ml/mi Goal Trough: Other - <1 mcg/ml Pharmacy Plan for Drug Dosing: Random tobramycin level obtained about 14.5 hours after the previous tobra dose was given came back as 1.5 mcg/ml. While it is desired for the level to be <1, it is still <2 and per the [place] nomogram or the [facility] nomogram, dosing can continue at the q24h frequency. Another random level will be obtained, however, 12 hours after the next dose to recheck if dosing should be changed to q36h, since the previous value of 1.5 was borderline. Pharmacy Service will continue to monitor and adjust dosing as required. Follow-Up Labs: Trough Other - tobramycin random level Labs to be done on [date and time ordered]: 03/01/18 at 04:00 (12 hrs after the dose on 02/28/18 at 16:00)
[2018-02-28] MEDS: Allopurinol 100 MG Tablet 200 MG PO (10:08)
--- NOTE | 2018-02-28 10:18 | PCM.PN.HOSP ---
Patient Problems: Active and Suspected Problems Complicated urinary tract infection (Acute) Hematuria (Acute) Subjective: Patient seen and examined. She had an uneventful night and has no complaints. She denies any fever chills, cough or chest pain, shortness of breath systems otherwise negative. Labs and vitals reviewed.. Vitals/I&O's: Vital Signs Temp Pulse Resp BP Pulse Ox 98.7 F 98 18 145/92 H 100 02/28/18 08:41 02/28/18 08:41 02/28/18 08:41 02/28/18 08:41 02/28/18 08:41 Oxygen Delivery Method Room Air Weight: 158 lb 7.986 oz Body Mass Index (BMI) 28.0 Finger Stick Blood Glucose 109 Intake and Output for Last 24 Hours 02/26/18 02/27/18 02/28/18 23:59 23:59 23:59 Intake Total 700 / 700 1729 / 1729 2092 / 2092 Output Total 500 / 500 3125 / 3125 1575 / 1575 Balance 200 / 200 -1396 / -1396 517 / 517 General: Alert, Oriented x3, Cooperative, No apparent distress HEENT: Atraumatic, PERRLA, EOMI, Normocephalic Oral: Moist Mucosa Neck: Supple, No JVD, Negative Carotid Bruits, Negative Hepatojugular Reflux, No Nodes Lungs: Clear to auscultation, Normal air movement, No rhonchi, No wheeze, No rales Cardiovascular: Regular rate, Regular Rhythm, Normal S1, Normal S2, No murmurs Abdomen: Bowel Sounds Present, Soft, Non Tender, Non-Distended, No Hepato-splenomegaly, - - colostomy bag filled with scanty amount of stool Extremities: No clubbing, No cyanosis, - - mild bipedal pitting edema; Skin: No rashes, No breakdown Musculoskeletal: No Tenderness to Palpation of Joints or Extremities Lymphatic: No Cervical, Supraclavicular, or Inguinal Adenopathy Neurological: Cranial nerves II-XII grossly intact, - - power 2/5 in LEs due to paraplegia Psych/Mental Status: Normal Affect, Appropriate, Alert and oriented to time, place, person, mood and affect Laboratory Results 02/27/18 12:10: POC Glucose 153 H 02/27/18 16:35: POC Glucose 167 H 02/27/18 21:00: POC Glucose 157 H 02/28/18 06:13: Random Tobramycin 1.50 02/28/18 06:13: WBC 6.1, RBC 3.91 L, Hgb 10.2 L, Hct 33.3 L, MCV 85.2, MCH 26.1 L, MCHC 30.6 L, RDW 16.7 H, RDW Differential 51.0 H, Plt Count 238, MPV 9.1, Immature Gran % (Auto) 0.300, Neut % (Auto) 66.8, Lymph % (Auto) 21.0, [place] % (Auto) 8.6, Eos % (Auto) 3.1, Baso % (Auto) 0.2, Absolute Neuts (auto) 4.1, Absolute Lymphs (auto) 1.29, Total Counted Not Reportable 02/28/18 06:13: Sodium 141, Potassium 4.4, Chloride 107, Carbon Dioxide 24.0, Anion Gap 10, BUN 23 H, Creatinine 0.61, Estim Creat Clear Calc 43.92, Est GFR (MDRD) Af Amer 124, Est GFR (MDRD) Non-Af 103, BUN/Creatinine Ratio 37.5 H, Glucose 112 H, Calcium 7.7 L 02/28/18 06:27: POC Glucose 116 H Current Medications Acetaminophen (Tylenol) 650 mg PO Q6H PRN PRN PRN Reason: Mild Pain (scale 0-3)/T>100.7 Al Hydroxide/Mg Hydroxide (Mylanta Ii) 30 ml PO Q6H PRN PRN PRN Reason: Gastric burning Allopurinol (Zyloprim) 200 mg PO DAILY@0800 [facility] Last Admin: 02/28/18 10:08 Dose: 200 mg Ascorbic Acid (Vitamin C) 500 mg PO DAILY@0800 [facility] Last Admin: 02/28/18 08:36 Dose: 500 mg Atorvastatin Calcium (Lipitor) 5 mg PO QHS [facility] Last Admin: 02/27/18 21:02 Dose: 5 mg Calamine/Phenol (Calmoseptine Ointment) 1 applic TOPICAL TID [facility]; Protocol Last Admin: 02/28/18 06:28 Dose: 1 applicatio Furosemide (Lasix) 20 mg PO DAILY [facility] Last Admin: 02/28/18 08:36 Dose: 20 mg Sodium Chloride () 1,000 mls @ 100 mls/hr IV .Q10H [facility] Last Admin: 02/28/18 02:01 Dose: 100 mls/hr Tobramycin Sulfate 260 mg/ (Dextrose) 56.5 mls @ 100 mls/hr IV Q24H [facility] Last Admin: 02/27/18 15:37 Dose: 100 mls/hr Insulin Human Lispro (Humalog Kwikpen (Bkc)) 0 unit SC ACHS [facility]; Protocol Last Admin: 02/28/18 08:34 Dose: Not Given Latanoprost (Xalatan Opthalmic) 1 drop EACH EYE QHS [facility] Last Admin: 02/27/18 21:04 Dose: 1 drop Losartan Potassium (Cozaar) 25 mg PO DAILY [facility] Last Admin: 02/28/18 08:36 Dose: 25 mg Magnesium Hydroxide (Milk Of Magnesia) 30 ml PO DAILY PRN PRN PRN Reason: Constipation Morphine Sulfate () 2 - 4 mg IV Q3H PRN PRN PRN Reason: Severe Pain (pain scale 6-10) Morphine Sulfate () 1 - 2 mg IV Q4H PRN PRN PRN Reason: Moderate Pain (pain scale 4-5) Multivitamins (Multivitamin) 1 tablet PO DAILY@1200 [facility] Last Admin: 02/27/18 10:55 Dose: 1 tablet Nutritional Formula (Lactose Free) (Glucerna Shake) 120 ml PO 4X/DAY [facility] Last Admin: 02/28/18 10:09 Dose: Not Given Ondansetron HCl (Zofran) 4 mg IV Q8H PRN PRN PRN Reason: NAUSEA Oxycodone HCl (Oxyir) 5 mg PO Q4H PRN PRN PRN Reason: Moderate Pain (pain scale 4-5) Last Admin: 02/27/18 21:02 Dose: 5 mg Potassium Chloride (K-Dur) 20 meq PO DAILY@0800 [facility] Last Admin: 02/28/18 08:36 Dose: 20 meq Promethazine HCl (Phenergan) 12.5 mg IV Q6H PRN PRN PRN Reason: NAUSEA/VOMITING Sodium Chloride () 5 - 30 ml IV UD PRN PRN Reason: SALINE FLUSH Timolol Maleate (Timoptic) 1 drop EACH EYE BID [facility] Last Admin: 02/28/18 08:37 Dose: 1 drop Tolterodine Tartrate (Detrol La) 4 mg PO DAILY [facility] Last Admin: 02/28/18 08:35 Dose: 4 mg Medical Necessity - Tobacco Use Smoking Status: Never smoker Tobacco Use: Non-smoker Assessment/Plan All Active Problems Complicated urinary tract infection (Acute) Hematuria (Acute) Pressure ulcer of left buttock, stage 2 (Resolved) 1. Acute complicated UTI Has history of neurogenic bladder chronic Roach catheter and peripheral neuropathy. Had hematuria and associated dysuria. Has Roach catheter changed every week and was last changed the day before presentation. Urine cultured Serratia which was multiple drug resistance and is only sensitive to IV gentamicin and tobramycin currently on IV tobramycin. blood cultures pending. no leucocytosis will consult ID to determine duration of antibiotics 2. Spinal stenosis and peripheral neuropathy has neurogenic bladder PT/OT on board roach catheter changed 1 day prior to admission 3. History of rectal prolapse: Stable. Has colostomy bag. Ostomy nurse consulted. 4. Type 2 diabetes mellitus: On insulin and insulin sliding scale. Accu-Cheks AC at bedtime. 5. Hypertension: On losartan and Lasix. 6. Hyperlipidemia: On statin 7. Chronic stage II pressure ulcers Present on admission. Wound nurse consulted. DVT prophylaxis: SCDs Code Visit Inpatient E&M: 28698 Subs Hosp L3
--- NOTE | 2018-02-28 10:23 | PN_ITS ---
Patient Problems: Active and Suspected Problems Complicated urinary tract infection (Acute) Hematuria (Acute) Subjective: Patient seen and examined. She had an uneventful night and has no complaints. She denies any fever chills, cough or chest pain, shortness of breath systems otherwise negative. Labs and vitals reviewed.. Vitals/I&O's: Vital Signs Temp Pulse Resp BP Pulse Ox 98.7 F 98 18 145/92 H 100 02/28/18 08:41 02/28/18 08:41 02/28/18 08:41 02/28/18 08:41 02/28/18 08:41 Oxygen Delivery Method Room Air Weight: 158 lb 7.986 oz Body Mass Index (BMI) 28.0 Finger Stick Blood Glucose 109 Intake and Output for Last 24 Hours 02/26/18 02/27/18 02/28/18 23:59 23:59 23:59 Intake Total 700 / 700 1729 / 1729 2092 / 2092 Output Total 500 / 500 3125 / 3125 1575 / 1575 Balance 200 / 200 -1396 / -1396 517 / 517 General: Alert, Oriented x3, Cooperative, No apparent distress HEENT: Atraumatic, PERRLA, EOMI, Normocephalic Oral: Moist Mucosa Neck: Supple, No JVD, Negative Carotid Bruits, Negative Hepatojugular Reflux, No Nodes Lungs: Clear to auscultation, Normal air movement, No rhonchi, No wheeze, No rales Cardiovascular: Regular rate, Regular Rhythm, Normal S1, Normal S2, No murmurs Abdomen: Bowel Sounds Present, Soft, Non Tender, Non-Distended, No Hepato-splenomegaly, - - colostomy bag filled with scanty amount of stool Extremities: No clubbing, No cyanosis, - - mild bipedal pitting edema; Skin: No rashes, No breakdown Musculoskeletal: No Tenderness to Palpation of Joints or Extremities Lymphatic: No Cervical, Supraclavicular, or Inguinal Adenopathy Neurological: Cranial nerves II-XII grossly intact, - - power 2/5 in LEs due to paraplegia Psych/Mental Status: Normal Affect, Appropriate, Alert and oriented to time, place, person, mood and affect Laboratory Results 02/27/18 12:10: POC Glucose 153 H 02/27/18 16:35: POC Glucose 167 H 02/27/18 21:00: POC Glucose 157 H 02/28/18 06:13: Random Tobramycin 1.50 02/28/18 06:13: WBC 6.1, RBC 3.91 L, Hgb 10.2 L, Hct 33.3 L, MCV 85.2, MCH 26.1 L, MCHC 30.6 L, RDW 16.7 H, RDW Differential 51.0 H, Plt Count 238, MPV 9.1, Immature Gran % (Auto) 0.300, Neut % (Auto) 66.8, Lymph % (Auto) 21.0, [place] % (Auto) 8.6, Eos % (Auto) 3.1, Baso % (Auto) 0.2, Absolute Neuts (auto) 4.1, Absolute Lymphs (auto) 1.29, Total Counted Not Reportable 02/28/18 06:13: Sodium 141, Potassium 4.4, Chloride 107, Carbon Dioxide 24.0, Anion Gap 10, BUN 23 H, Creatinine 0.61, Estim Creat Clear Calc 43.92, Est GFR (MDRD) Af Amer 124, Est GFR (MDRD) Non-Af 103, BUN/Creatinine Ratio 37.5 H, Glucose 112 H, Calcium 7.7 L 02/28/18 06:27: POC Glucose 116 H Current Medications Acetaminophen (Tylenol) 650 mg PO Q6H PRN PRN PRN Reason: Mild Pain (scale 0-3)/T>100.7 Al Hydroxide/Mg Hydroxide (Mylanta Ii) 30 ml PO Q6H PRN PRN PRN Reason: Gastric burning Allopurinol (Zyloprim) 200 mg PO DAILY@0800 [facility] Last Admin: 02/28/18 10:08 Dose: 200 mg Ascorbic Acid (Vitamin C) 500 mg PO DAILY@0800 [facility] Last Admin: 02/28/18 08:36 Dose: 500 mg Atorvastatin Calcium (Lipitor) 5 mg PO QHS [facility] Last Admin: 02/27/18 21:02 Dose: 5 mg Calamine/Phenol (Calmoseptine Ointment) 1 applic TOPICAL TID [facility]; Protocol Last Admin: 02/28/18 06:28 Dose: 1 applicatio Furosemide (Lasix) 20 mg PO DAILY [facility] Last Admin: 02/28/18 08:36 Dose: 20 mg Sodium Chloride () 1,000 mls @ 100 mls/hr IV .Q10H [facility] Last Admin: 02/28/18 02:01 Dose: 100 mls/hr Tobramycin Sulfate 260 mg/ (Dextrose) 56.5 mls @ 100 mls/hr IV Q24H [facility] Last Admin: 02/27/18 15:37 Dose: 100 mls/hr Insulin Human Lispro (Humalog Kwikpen (Bkc)) 0 unit SC ACHS [facility]; Protocol Last Admin: 02/28/18 08:34 Dose: Not Given Latanoprost (Xalatan Opthalmic) 1 drop EACH EYE QHS [facility] Last Admin: 02/27/18 21:04 Dose: 1 drop Losartan Potassium (Cozaar) 25 mg PO DAILY [facility] Last Admin: 02/28/18 08:36 Dose: 25 mg Magnesium Hydroxide (Milk Of Magnesia) 30 ml PO DAILY PRN PRN PRN Reason: Constipation Morphine Sulfate () 2 - 4 mg IV Q3H PRN PRN PRN Reason: Severe Pain (pain scale 6-10) Morphine Sulfate () 1 - 2 mg IV Q4H PRN PRN PRN Reason: Moderate Pain (pain scale 4-5) Multivitamins (Multivitamin) 1 tablet PO DAILY@1200 [facility] Last Admin: 02/27/18 10:55 Dose: 1 tablet Nutritional Formula (Lactose Free) (Glucerna Shake) 120 ml PO 4X/DAY [facility] Last Admin: 02/28/18 10:09 Dose: Not Given Ondansetron HCl (Zofran) 4 mg IV Q8H PRN PRN PRN Reason: NAUSEA Oxycodone HCl (Oxyir) 5 mg PO Q4H PRN PRN PRN Reason: Moderate Pain (pain scale 4-5) Last Admin: 02/27/18 21:02 Dose: 5 mg Potassium Chloride (K-Dur) 20 meq PO DAILY@0800 [facility] Last Admin: 02/28/18 08:36 Dose: 20 meq Promethazine HCl (Phenergan) 12.5 mg IV Q6H PRN PRN PRN Reason: NAUSEA/VOMITING Sodium Chloride () 5 - 30 ml IV UD PRN PRN Reason: SALINE FLUSH Timolol Maleate (Timoptic) 1 drop EACH EYE BID [facility] Last Admin: 02/28/18 08:37 Dose: 1 drop Tolterodine Tartrate (Detrol La) 4 mg PO DAILY [facility] Last Admin: 02/28/18 08:35 Dose: 4 mg Medical Necessity - Tobacco Use Smoking Status: Never smoker Tobacco Use: Non-smoker Assessment/Plan All Active Problems Complicated urinary tract infection (Acute) Hematuria (Acute) Pressure ulcer of left buttock, stage 2 (Resolved) 1. Acute complicated UTI * Has history of neurogenic bladder chronic Roach catheter and peripheral neuropathy. Had hematuria and associated dysuria. Has Roach catheter changed every week and was last changed the day before presentation. * Urine cultured Serratia which was multiple drug resistance and is only sensitive to IV gentamicin and tobramycin * currently on IV tobramycin. * blood cultures pending. * no leucocytosis * will consult ID to determine duration of antibiotics * 2. Spinal stenosis and peripheral neuropathy * has neurogenic bladder * PT/OT on board * roach catheter changed 1 day prior to admission * 3. History of rectal prolapse: Stable. Has colostomy bag. Ostomy nurse consulted. 4. Type 2 diabetes mellitus: On insulin and insulin sliding scale. Accu-Cheks AC at bedtime. 5. Hypertension: On losartan and Lasix. 6. Hyperlipidemia: On statin 7. Chronic stage II pressure ulcers * Present on admission. Wound nurse consulted. * DVT prophylaxis: SCDs Code Visit Inpatient E&M: 52154 Subs Hosp L3
[2018-02-28] MEDS: Insulin Lispro 100 UNIT/ML INSULN.PEN SC ×3 (11:52→21:39)
[2018-02-28 12:01] LABS: Bedside Glucose 174 mg/dL (70-110)
[2018-02-28] MEDS: Glucerna Shake 120 ML LIQUID PO (13:09)
[2018-02-28] MEDS: Multivitamins,Therapeutic Tablet 1 TABLET PO (13:09)
[2018-02-28 18:16] LABS: Bedside Glucose 167 mg/dL (70-110)
[2018-02-28] MEDS: Acetaminophen 325 MG Tablet 650 MG PO (19:46)
[2018-02-28] MEDS: oxyCODONE 5 MG Tablet PO (19:46)
[2018-02-28] MEDS: Atorvastatin Calcium 10 MG Tablet 5 MG PO (21:37)
[2018-02-28] MEDS: Latanoprost 0.005% 1 Bottle 1 DRP EACH EYE (21:41)
[2018-02-28 22:10] LABS: Bedside Glucose 174 mg/dL (70-110)
[2018-03-01 04:00] VITALS: BP 127/75; PULSE 94; RESP 16; TEMP 36.6; O2SAT 95
[2018-03-01 04:15] LABS: Absolute Lymphocyte Count 1.52 X10^3/ul (0.83-4.51); Absolute Neutrophil Count 4.2 X10^3/uL (2.0-7.7); Basophil# 0.03 X10^3/uL; Basophil% 0.4 % (0-1); Eosinophil# 0.29 X10^3/uL; Eosinophils% 4.3 % (0-5); Hematocrit 31.8 % (37-47); Hemoglobin 9.9 g/dl (12.0-15.0); Lymphocyte # 1.52 X10^3/ul (4.0); Lymphocyte % 22.6 % (19-41); Mean Corp Hgb Conc 31.1 g/gl (32-36); Mean Corpuscular Hgb 26.5 pg (27.0-32.0); Mean Corpuscular Volume 85.3 fL (81-99); Mean Platelet Vol. 9.1 fl (6.2-12.0); Monocyte# 0.67 X10^3/uL; Neutrophil # 4.15 X10^3/uL (2.7-7.7); Neutrophil % 61.8 % (47-70); Platelet Count 252 K/mm3 (150-450); RBC Distribution Width CV 16.5 % (11.6-14.6); RBC Distribution Width SD 50.3 fl (35.1-43.9); Red Blood Count 3.73 M/mm3 (4.2-5.4); White Blood Count 6.7 K/mm3 (4.4-11.0)
[2018-03-01 04:17] LABS: POSITIVE COUNT NO; POSITIVE DIFFERENTIAL NO; POSITIVE MORPHOLOGY NO
[2018-03-01 04:26] LABS: Anion Gap 8 (5-15); BUN 23 mg/dL (7-18); BUN/Creat Ratio 35.4 RATIO (10-20); Calcium,Total 7.8 mg/dL (8.5-10.1); Chloride 107 mmol/L (98-107); Creatinine, Serum 0.65 mg/dL (0.55-1.02); EST Glomerular Filtration Rate 96 mL/min (>60); Est Glom Filt Rate - Afr Amer 116 mL/min (>60); Estimated Creatinine Clearance 43.92 ml/min; Glucose 126 mg/dL (74-106); Potassium 4.3 mmol/L (3.5-5.1); Sodium Level 140 mmol/L (136-145)
[2018-03-01] MEDS: 0.9% Normal Saline 1,000 ML 100 ML IV (05:18)
[2018-03-01] MEDS: oxyCODONE 5 MG Tablet PO (05:18)
[2018-03-01] MEDS: Menthol/Lanolin/Calamine/Znox 113 GM Tube 1 APPLIC TOPICAL ×2 (05:19→15:38)
[2018-03-01 06:51] LABS: Bedside Glucose 147 mg/dL (70-110)
[2018-03-01 09:10] VITALS: BP 129/74; PULSE 101; RESP 18; TEMP 36.7; O2SAT 99
[2018-03-01] MEDS: Furosemide 20 MG Tablet PO (09:14)
[2018-03-01] MEDS: Allopurinol 100 MG Tablet 200 MG PO (09:15)
[2018-03-01] MEDS: Losartan Potassium 25 MG Tablet PO (09:15)
[2018-03-01] MEDS: Mirabegron 50 MG TAB.ER.24H PO (09:15)
[2018-03-01] MEDS: Tolterodine Tartrate 4 MG CAP.SA PO (09:15)
[2018-03-01] MEDS: Ascorbic Acid 500 MG Tablet PO (09:15)
[2018-03-01] MEDS: Timolol 0.5% 5ML OPTH.BTL 1 DRP EACH EYE (09:16)
--- NOTE | 2018-03-01 10:02 | NURSING ---
wound photo: left ischium/gluteal fold
--- NOTE | 2018-03-01 10:03 | NURSING ---
wound photo: right ischium/gluteal fold
--- NOTE | 2018-03-01 10:29 | PCM.PN.HOSP ---
Patient Problems: Active and Suspected Problems Complicated urinary tract infection (Acute) Hematuria (Acute) Subjective: Patient seen and examined. She has no complaints. She denies any fever chills, cough or chest pain, shortness of breath systems otherwise negative. Labs and vitals reviewed. Vitals/I&O's: Vital Signs Temp Pulse Resp BP Pulse Ox 98.0 F 101 H 18 129/74 H 99 03/01/18 09:10 03/01/18 09:10 03/01/18 09:10 03/01/18 09:10 03/01/18 09:10 Oxygen Delivery Method Room Air Weight: 158 lb 7.986 oz Body Mass Index (BMI) 28.0 Finger Stick Blood Glucose 109 Intake and Output for Last 24 Hours 02/27/18 02/28/18 03/01/18 23:59 23:59 23:59 Intake Total 1729 / 1729 4153 / 4153 1496 / 1496 Output Total 3125 / 3125 3350 / 3350 1400 / 1400 Balance -1396 / -1396 803 / 803 96 / 96 General: Alert, Oriented x3, Cooperative, No apparent distress HEENT: Atraumatic, PERRLA, EOMI, Normocephalic Oral: Moist Mucosa Neck: Supple, No JVD, Negative Carotid Bruits, Negative Hepatojugular Reflux, No Nodes Lungs: Clear to auscultation, Normal air movement, No rhonchi, No wheeze, No rales Cardiovascular: Regular rate, Regular Rhythm, Normal S1, Normal S2, No murmurs Abdomen: Bowel Sounds Present, Soft, Non Tender, Non-Distended, No Hepato-splenomegaly, - - colostomy bag intact, filled with moderate amounts of stool. filled Extremities: No clubbing, No cyanosis, - - minimal bipedal pitting edema; Skin: No rashes, No breakdown Musculoskeletal: No Tenderness to Palpation of Joints or Extremities Lymphatic: No Cervical, Supraclavicular, or Inguinal Adenopathy Neurological: Cranial nerves II-XII grossly intact, - - power 2/5 in LEs due to paraplegia Psych/Mental Status: Normal Affect, Appropriate, Alert and oriented to time, place, person, mood and affect Microbiology Past 72 Hours 02/26/18 13:10 Blood Culture (Wb) - No Site/Description Given Blood Culture - Preliminary No growth in 48 hours. Laboratory Results 11/11/18 11:49: POC Glucose 174 H 02/28/18 15:57: POC Glucose 167 H 02/28/18 21:36: POC Glucose 174 H 03/01/18 03:50: Random Tobramycin 2.40 03/01/18 03:50: WBC 6.7, RBC 3.73 L, Hgb 9.9 L, Hct 31.8 L, MCV 85.3, MCH 26.5 L, MCHC 31.1 L, RDW 16.5 H, RDW Differential 50.3 H, Plt Count 252, MPV 9.1, Immature Gran % (Auto) 0.900, Neut % (Auto) 61.8, Lymph % (Auto) 22.6, [place] % (Auto) 10.0, Eos % (Auto) 4.3, Baso % (Auto) 0.4, Absolute Neuts (auto) 4.2, Absolute Lymphs (auto) 1.52, Total Counted Not Reportable 03/01/18 03:50: Sodium 140, Potassium 4.3, Chloride 107, Carbon Dioxide 25.0, Anion Gap 8, BUN 23 H, Creatinine 0.65, Estim Creat Clear Calc 43.92, Est GFR (MDRD) Af Amer 116, Est GFR (MDRD) Non-Af 96, BUN/Creatinine Ratio 35.4 H, Glucose 126 H, Calcium 7.8 L 03/01/18 06:44: POC Glucose 147 H Current Medications Acetaminophen (Tylenol) 650 mg PO Q6H PRN PRN PRN Reason: Mild Pain (scale 0-3)/T>100.7 Last Admin: 02/28/18 19:46 Dose: 650 mg Al Hydroxide/Mg Hydroxide (Mylanta Ii) 30 ml PO Q6H PRN PRN PRN Reason: Gastric burning Allopurinol (Zyloprim) 200 mg PO DAILY@0800 [facility] Last Admin: 03/01/18 09:15 Dose: 200 mg Ascorbic Acid (Vitamin C) 500 mg PO DAILY@0800 [facility] Last Admin: 03/01/18 09:15 Dose: 500 mg Atorvastatin Calcium (Lipitor) 5 mg PO QHS [facility] Last Admin: 02/28/18 21:37 Dose: 5 mg Calamine/Phenol (Calmoseptine Ointment) 1 applic TOPICAL TID [facility]; Protocol Last Admin: 03/01/18 05:19 Dose: 1 applicatio Furosemide (Lasix) 20 mg PO DAILY [facility] Last Admin: 03/01/18 09:14 Dose: 20 mg Sodium Chloride () 1,000 mls @ 100 mls/hr IV .Q10H [facility] Last Admin: 03/01/18 05:18 Dose: 100 mls/hr Tobramycin Sulfate 260 mg/ (Dextrose) 56.5 mls @ 100 mls/hr IV Q24H [facility] Last Admin: 02/28/18 15:59 Dose: 100 mls/hr Insulin Human Lispro (Humalog Kwikpen (Bkc)) 0 unit SC ACHS [facility]; Protocol Last Admin: 03/01/18 06:58 Dose: Not Given Latanoprost (Xalatan Opthalmic) 1 drop EACH EYE QHS [facility] Last Admin: 02/28/18 21:41 Dose: 1 drop Losartan Potassium (Cozaar) 25 mg PO DAILY [facility] Last Admin: 03/01/18 09:15 Dose: 25 mg Magnesium Hydroxide (Milk Of Magnesia) 30 ml PO DAILY PRN PRN PRN Reason: Constipation Morphine Sulfate () 2 - 4 mg IV Q3H PRN PRN PRN Reason: Severe Pain (pain scale 6-10) Morphine Sulfate () 1 - 2 mg IV Q4H PRN PRN PRN Reason: Moderate Pain (pain scale 4-5) Multivitamins (Multivitamin) 1 tablet PO DAILY@1200 [facility] Last Admin: 02/28/18 13:09 Dose: 1 tablet Nutritional Formula (Lactose Free) (Glucerna Shake) 120 ml PO 4X/DAY [facility] Last Admin: 03/01/18 09:15 Dose: Not Given Ondansetron HCl (Zofran) 4 mg IV Q8H PRN PRN PRN Reason: NAUSEA Oxycodone HCl (Oxyir) 5 mg PO Q4H PRN PRN PRN Reason: Moderate Pain (pain scale 4-5) Last Admin: 03/01/18 05:18 Dose: 5 mg Potassium Chloride (K-Dur) 20 meq PO DAILY@0800 [facility] Last Admin: 03/01/18 09:15 Dose: 20 meq Promethazine HCl (Phenergan) 12.5 mg IV Q6H PRN PRN PRN Reason: NAUSEA/VOMITING Sodium Chloride () 5 - 30 ml IV UD PRN PRN Reason: SALINE FLUSH Timolol Maleate (Timoptic) 1 drop EACH EYE BID [facility] Last Admin: 03/01/18 09:16 Dose: 1 drop Tolterodine Tartrate (Detrol La) 4 mg PO DAILY [facility] Last Admin: 03/01/18 09:15 Dose: 4 mg Medical Necessity - Tobacco Use Smoking Status: Never smoker Tobacco Use: Non-smoker Assessment/Plan All Active Problems Complicated urinary tract infection (Acute) Hematuria (Acute) Pressure ulcer of left buttock, stage 2 (Resolved) 1. Acute complicated UTI Has history of neurogenic bladder chronic Roach catheter and peripheral neuropathy. Has Roach catheter changed every week and was last changed the day before presentation. Urine cultured Serratia which was multiple drug resistance and is only sensitive to IV gentamicin and tobramycin currently on IV tobramycin. blood cultures- no growth in 48 hours ID consulted-awaiting rec's 2. Spinal stenosis and peripheral neuropathy has neurogenic bladder PT/OT on board roach catheter changed 1 day prior to admission 3. History of rectal prolapse: Stable. Has colostomy bag. Ostomy nurse consulted. 4. Type 2 diabetes mellitus: On insulin and insulin sliding scale. Accu-Cheks AC at bedtime. 5. Hypertension: On losartan and Lasix. 6. Hyperlipidemia: On statin 7. Chronic stage II pressure ulcers Present on admission. Wound nurse on board DVT prophylaxis: SCDs Code Visit Inpatient E&M: 13550 Subs Hosp L2
--- NOTE | 2018-03-01 10:33 | PN_ITS ---
Patient Problems: Active and Suspected Problems Complicated urinary tract infection (Acute) Hematuria (Acute) Subjective: Patient seen and examined. She has no complaints. She denies any fever chills, cough or chest pain, shortness of breath systems otherwise negative. Labs and vitals reviewed. Vitals/I&O's: Vital Signs Temp Pulse Resp BP Pulse Ox 98.0 F 101 H 18 129/74 H 99 03/01/18 09:10 03/01/18 09:10 03/01/18 09:10 03/01/18 09:10 03/01/18 09:10 Oxygen Delivery Method Room Air Weight: 158 lb 7.986 oz Body Mass Index (BMI) 28.0 Finger Stick Blood Glucose 109 Intake and Output for Last 24 Hours 02/27/18 02/28/18 03/01/18 23:59 23:59 23:59 Intake Total 1729 / 1729 4153 / 4153 1496 / 1496 Output Total 3125 / 3125 3350 / 3350 1400 / 1400 Balance -1396 / -1396 803 / 803 96 / 96 General: Alert, Oriented x3, Cooperative, No apparent distress HEENT: Atraumatic, PERRLA, EOMI, Normocephalic Oral: Moist Mucosa Neck: Supple, No JVD, Negative Carotid Bruits, Negative Hepatojugular Reflux, No Nodes Lungs: Clear to auscultation, Normal air movement, No rhonchi, No wheeze, No rales Cardiovascular: Regular rate, Regular Rhythm, Normal S1, Normal S2, No murmurs Abdomen: Bowel Sounds Present, Soft, Non Tender, Non-Distended, No Hepato- splenomegaly, - - colostomy bag intact, filled with moderate amounts of stool. filled Extremities: No clubbing, No cyanosis, - - minimal bipedal pitting edema; Skin: No rashes, No breakdown Musculoskeletal: No Tenderness to Palpation of Joints or Extremities Lymphatic: No Cervical, Supraclavicular, or Inguinal Adenopathy Neurological: Cranial nerves II-XII grossly intact, - - power 2/5 in LEs due to paraplegia Psych/Mental Status: Normal Affect, Appropriate, Alert and oriented to time, place, person, mood and affect Microbiology Past 72 Hours 02/26/18 13:10 Blood Culture (Wb) - No Site/Description Given Blood Culture - Preliminary No growth in 48 hours. Laboratory Results 11/11/18 11:49: POC Glucose 174 H 02/28/18 15:57: POC Glucose 167 H 02/28/18 21:36: POC Glucose 174 H 03/01/18 03:50: Random Tobramycin 2.40 03/01/18 03:50: WBC 6.7, RBC 3.73 L, Hgb 9.9 L, Hct 31.8 L, MCV 85.3, MCH 26.5 L , MCHC 31.1 L, RDW 16.5 H, RDW Differential 50.3 H, Plt Count 252, MPV 9.1, Immature Gran % (Auto) 0.900, Neut % (Auto) 61.8, Lymph % (Auto) 22.6, [place] % (Auto) 10.0, Eos % (Auto) 4.3, Baso % (Auto) 0.4, Absolute Neuts (auto) 4.2, Absolute Lymphs (auto) 1.52, Total Counted Not Reportable 03/01/18 03:50: Sodium 140, Potassium 4.3, Chloride 107, Carbon Dioxide 25.0, Anion Gap 8, BUN 23 H, Creatinine 0.65, Estim Creat Clear Calc 43.92, Est GFR ( MDRD) Af Amer 116, Est GFR (MDRD) Non-Af 96, BUN/Creatinine Ratio 35.4 H, Glucose 126 H, Calcium 7.8 L 03/01/18 06:44: POC Glucose 147 H Current Medications Acetaminophen (Tylenol) 650 mg PO Q6H PRN PRN PRN Reason: Mild Pain (scale 0-3)/T>100.7 Last Admin: 02/28/18 19:46 Dose: 650 mg Al Hydroxide/Mg Hydroxide (Mylanta Ii) 30 ml PO Q6H PRN PRN PRN Reason: Gastric burning Allopurinol (Zyloprim) 200 mg PO DAILY@0800 [facility] Last Admin: 03/01/18 09:15 Dose: 200 mg Ascorbic Acid (Vitamin C) 500 mg PO DAILY@0800 [facility] Last Admin: 03/01/18 09:15 Dose: 500 mg Atorvastatin Calcium (Lipitor) 5 mg PO QHS [facility] Last Admin: 02/28/18 21:37 Dose: 5 mg Calamine/Phenol (Calmoseptine Ointment) 1 applic TOPICAL TID [facility]; Protocol Last Admin: 03/01/18 05:19 Dose: 1 applicatio Furosemide (Lasix) 20 mg PO DAILY [facility] Last Admin: 03/01/18 09:14 Dose: 20 mg Sodium Chloride () 1,000 mls @ 100 mls/hr IV .Q10H [facility] Last Admin: 03/01/18 05:18 Dose: 100 mls/hr Tobramycin Sulfate 260 mg/ (Dextrose) 56.5 mls @ 100 mls/hr IV Q24H [facility] Last Admin: 02/28/18 15:59 Dose: 100 mls/hr Insulin Human Lispro (Humalog Kwikpen (Bkc)) 0 unit SC ACHS [facility]; Protocol Last Admin: 03/01/18 06:58 Dose: Not Given Latanoprost (Xalatan Opthalmic) 1 drop EACH EYE QHS [facility] Last Admin: 02/28/18 21:41 Dose: 1 drop Losartan Potassium (Cozaar) 25 mg PO DAILY [facility] Last Admin: 03/01/18 09:15 Dose: 25 mg Magnesium Hydroxide (Milk Of Magnesia) 30 ml PO DAILY PRN PRN PRN Reason: Constipation Morphine Sulfate () 2 - 4 mg IV Q3H PRN PRN PRN Reason: Severe Pain (pain scale 6-10) Morphine Sulfate () 1 - 2 mg IV Q4H PRN PRN PRN Reason: Moderate Pain (pain scale 4-5) Multivitamins (Multivitamin) 1 tablet PO DAILY@1200 [facility] Last Admin: 02/28/18 13:09 Dose: 1 tablet Nutritional Formula (Lactose Free) (Glucerna Shake) 120 ml PO 4X/DAY [facility] Last Admin: 03/01/18 09:15 Dose: Not Given Ondansetron HCl (Zofran) 4 mg IV Q8H PRN PRN PRN Reason: NAUSEA Oxycodone HCl (Oxyir) 5 mg PO Q4H PRN PRN PRN Reason: Moderate Pain (pain scale 4-5) Last Admin: 03/01/18 05:18 Dose: 5 mg Potassium Chloride (K-Dur) 20 meq PO DAILY@0800 [facility] Last Admin: 03/01/18 09:15 Dose: 20 meq Promethazine HCl (Phenergan) 12.5 mg IV Q6H PRN PRN PRN Reason: NAUSEA/VOMITING Sodium Chloride () 5 - 30 ml IV UD PRN PRN Reason: SALINE FLUSH Timolol Maleate (Timoptic) 1 drop EACH EYE BID [facility] Last Admin: 03/01/18 09:16 Dose: 1 drop Tolterodine Tartrate (Detrol La) 4 mg PO DAILY [facility] Last Admin: 03/01/18 09:15 Dose: 4 mg Medical Necessity - Tobacco Use Smoking Status: Never smoker Tobacco Use: Non-smoker Assessment/Plan All Active Problems Complicated urinary tract infection (Acute) Hematuria (Acute) Pressure ulcer of left buttock, stage 2 (Resolved) 1. Acute complicated UTI * Has history of neurogenic bladder chronic Roach catheter and peripheral neuropathy. Has Roach catheter changed every week and was last changed the day before presentation. * Urine cultured Serratia which was multiple drug resistance and is only sensitive to IV gentamicin and tobramycin * currently on IV tobramycin. * blood cultures- no growth in 48 hours * ID consulted-awaiting rec's * 2. Spinal stenosis and peripheral neuropathy * has neurogenic bladder * PT/OT on board * roach catheter changed 1 day prior to admission * 3. History of rectal prolapse: Stable. Has colostomy bag. Ostomy nurse consulted. 4. Type 2 diabetes mellitus: On insulin and insulin sliding scale. Accu-Cheks AC at bedtime. 5. Hypertension: On losartan and Lasix. 6. Hyperlipidemia: On statin 7. Chronic stage II pressure ulcers * Present on admission. Wound nurse on board * DVT prophylaxis: SCDs Code Visit Inpatient E&M: 46163 Subs Hosp L2
[2018-03-01 11:34] VITALS: O2SAT 96
[2018-03-01] MEDS: Multivitamins,Therapeutic Tablet 1 TABLET PO (11:48)
[2018-03-01] MEDS: Insulin Lispro 100 UNIT/ML INSULN.PEN SC (11:49)
--- NOTE | 2018-03-01 12:11 | PCM.RX.CS ---
Consult Pharmacy has been consulted to manage selected antiobiotic: Tobramycin Type of Consult: Follow-up Suspected Infection: Other - UTI Prior Doses of Antibiotics Received/Current Regimen: TOBRAMYCIN 5MG/KG BASED ON IBW): 02/28 @1559 Labs: Sodium 140 mmol/L (136-145) 03/01/18 03:50 Potassium 4.3 mmol/L (3.5-5.1) 03/01/18 03:50 Chloride 107 mmol/L (98-107) 03/01/18 03:50 Carbon Dioxide 25.0 mmol/L (21.0-32.0) 03/01/18 03:50 Anion Gap 8 (5-15) 03/01/18 03:50 BUN 23 mg/dL (7-18) H 03/01/18 03:50 Creatinine 0.65 mg/dL (0.55-1.02) 03/01/18 03:50 Est GFR (MDRD) Af Amer 116 mL/min (>60) 03/01/18 03:50 Est GFR (MDRD) Non-Af 96 mL/min (>60) 03/01/18 03:50 BUN/Creatinine Ratio 35.4 RATIO (10-20) H 03/01/18 03:50 Glucose 126 mg/dL (74-106) H 03/01/18 03:50 Random Tobramycin 2.40 ug/mL 03/01/18 03:50 Microbiology: Microbiology 02/26/18 13:10 Blood Culture (Wb) - No Site/Description Given Blood Culture - Preliminary No growth in 48 hours. Weight used for dosin.4 kg - IBW Goal Trough: Other Pharmacy Plan for Drug Dosing: The patient had a random tobramycin trough drawn ~12hrs from the last dose that resulted in a value of 2.4. Per the [facility] nomogram for dosing, the patient would fall into a Q36hr interval. Will time the order to give the next dose 36hrs from the previous dose. Will obtain a random tobramycin trough 12hrs from the next dose to determine if the Q36hr interval is adequate. Will continue to follow daily. PLAN/RECOMMENDATIONS 1. Tobramycin 260mg IV Q36hrs to start 03/02/18 @0400 2. Random tobramycin trough 11/13/18 @1600 (12hrs from administered dose) 3. Pharmacy Service will continue to monitor and adjust dosing as required.
--- NOTE | 2018-03-01 12:59 | CHAPLAIN ---
Type of Pastoral Visit _x__ Initial Visit ___ Follow-up Visit ___ On-call Visit ___ General Patient Visit ___ Spiritual Assessment ___ Family Conference ___ Bereavement ___ Rapid Response ___ Code Blue ___ Other (describe below) Pastoral Care Referral From _x__ Patient ___ Family ___ Nurse ___ Physician ___ Air Director ___ Ratings Analyst ___ Other (describe below) Sacrament/Intervention _x__ Active listening ___ Anointing ___ Druze ___ Bereavement ___ Communion _x__ Malika exploration ___ ___ Life review _x__ Prayer ___ Reconciliation ___ Sacrament of Sick _x__ Supportive presence ___ Wedding ___ Other (describe below) Pastoral Comments patient states that she has been in hospitals before and this is nothing new to me; pt says that she would rather be at home but this is what it is; pt lives with brother and [id number]; pt has a scientologist connection and several inspirational books on bedside tray; pt is welcoming of prayer
[2018-03-01 13:21] LABS: Bedside Glucose 179 mg/dL (70-110)
--- NOTE | 2018-03-01 13:30 | PCM.HP.ID ---
Problem List (1) Hematuria Status: Acute Qualifiers: Hematuria type: unspecified type Qualified Code(s): R31.9 - Hematuria, unspecified Reason for Consult: uti Consulted by: Dr. Frost History of Present Illness: The patient is a 68 year old F with spinal stenosis, neurogenic bladder, chronic roach, and rectal prolapse who was sent to the hospital due to growth of CRE Serratia from ucx on 02/22. Roach is changed qmonthly. Reports recurrent anal fissure, most recent episode about a week ago for 3 days of malone drainage from her rectum. Saw PCP Dr. Helton, ucx was sent. Denies any abd pain, urine changes, fever, or not feeling well. Does have some fatigue. Has been on suppressive keflex for over a year. Ucx came back resistant to most abx, sent to the hospital, given gent and then tobra. Still feeling fine. No confusion. No fever here. Full ROS performed and neg except as noted above. - Medical History Past Medical History (Chronic Problems): Chronic Problems Open wound of left thigh (Chronic) traumatic skin tear posterior thigh Incompetent urethral closure mechanism (Chronic) Neurogenic bladder (Chronic) Stage II pressure ulcer (Chronic) Chronic suprapubic catheter (Chronic) Diabetes mellitus type 2 in nonobese (Chronic) Hypertension (Chronic) Gout (Chronic) with arthropathy Pressure ulcer of left buttock, stage 3 (Chronic) left lower buttock/upper thigh area Diabetes mellitus (Chronic) Pressure ulcer of right buttock, stage 3 (Chronic) Diabetic neuropathy, type II diabetes mellitus (Chronic) Malnutrition (Chronic) Back pain (Chronic) Arthritis (Chronic) 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 significance to followup Anemia of chronic disease (Chronic) Physical deconditioning (Chronic) Dupuytren's contracture of right hand (Chronic) Spinal stenosis (Chronic) Hyperlipidemia (Chronic) RP (rectal prolapse) (Chronic) Allergies/Adverse Reactions: Allergies No Known Allergies Allergy (Verified 02/26/18 12:12) Home Medications: Ambulatory Orders Medication Instructions Recorded Allopurinol [Zyloprim] 200 mg PO DAILY 07/05/14 Latanoprost 0.005% [Xalatan 1 drop EACH EYE QHS 07/05/14 Opthalmic] Losartan Potassium [Cozaar] 25 mg PO DAILY 07/05/14 Multivitamins,Therapeutic 1 tablet PO DAILY 07/05/14 [Multivitamin] Simvastatin [Zocor] 10 mg PO QHS 07/05/14 Timolol Maleate [Timoptic-XE 0.5%] 1 drop EACH EYE DAILY 07/05/14 Potassium Chloride [K-Dur] 20 meq PO DAILY 06/29/15 Saxagliptin HCl [Onglyza] 5 mg PO DAILY 07/01/17 Solifenacin Succinate [Vesicare] 10 mg PO DAILY 07/01/17 Ascorbic Acid [Vitamin C] 500 mg PO DAILY@0800 09/09/17 Mirabegron [Myrbetriq] 50 mg PO DAILY 11/23/17 Cephalexin [Keflex] 500 mg PO DAILY 02/26/18 Furosemide [Lasix] 20 mg PO DAILY 02/26/18 Ibuprofen 200 mg PO PRN PRN 02/26/18 Metformin HCl [Glucophage] 1,000 mg PO BID 02/26/18 - Social History Tobacco Use: non-smoker Vital Signs Temp Pulse Resp BP Pulse Ox 98.0 F 101 H 18 129/74 H 96 03/01/18 09:10 03/01/18 09:10 03/01/18 09:10 03/01/18 09:10 03/01/18 11:34 Oxygen Delivery Method Room Air Weight: 71.894 kg Body Mass Index (BMI) 28.0 Finger Stick Blood Glucose 109 Microbiology Past 72 Hours 02/26/18 13:10 Blood Culture - Preliminary Blood Culture (Wb) - No Site/Description Given No growth in 48 hours. Laboratory Tests Past 24 Hrs 03/01/18 03/01/18 03/01/18 03:50 03:50 03:50 WBC 6.7 RBC 3.73 L Hgb 9.9 L Hct 31.8 L MCV 85.3 MCH 26.5 L MCHC 31.1 L RDW 16.5 H RDW Differential 50.3 H Plt Count 252 MPV 9.1 Immature Gran % (Auto) 0.900 Neut % (Auto) 61.8 Lymph % (Auto) 22.6 [place] % (Auto) 10.0 Eos % (Auto) 4.3 Baso % (Auto) 0.4 Absolute Neuts (auto) 4.2 Absolute Lymphs (auto) 1.52 Total Counted Not Reportable Sodium 140 Potassium 4.3 Chloride 107 Carbon Dioxide 25.0 Anion Gap 8 BUN 23 H Creatinine 0.65 Estim Creat Clear Calc 43.92 Est GFR (MDRD) Af Amer 116 Est GFR (MDRD) Non-Af 96 BUN/Creatinine Ratio 35.4 H Glucose 126 H Calcium 7.8 L Random Tobramycin 2.40 - Other Studies Radiology: [] reviewed Other Studies: [] Route of nutrition/ use of supplements: [] Nutritional Intake: [] IV Site: [] Roach Catheter: [] - Physical Exam General: Alert, Oriented x3, Cooperative, No apparent distress HEENT: Atraumatic, PERRLA, EOMI Neck: Supple, No Nodes Lungs: Clear to auscultation, Normal air movement Cardiovascular: Regular rate, Regular Rhythm Abdomen: Soft, Non Tender, Non-Distended Extremities: No edema Skin: No rashes IV Site: Peripheral, without redness Musculoskeletal: No Tenderness to Palpation of Joints or Extremities Neurological: Cranial nerves II-XII grossly intact - Assessment/Plan Antibiotics: [] Assessment/Plan: [] Active and Suspected Problems Complicated urinary tract infection (Acute) Hematuria (Acute) CRE serratia bacteruria - No confusion, no fever, normal wbc. Has chronic roach and has been asymptomatic. No abd pain on exam. Reports ucx was sent when she saw her PCP due to anal fissure and some rectal drainage. Given presence of roach and a very resistant bacteria colonizing urine, this makes it even more important to save the few abx we have left and use them only for true symptomatic infection. Will stop tobra. Ok for discharge from my perspective. 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 Could also benefit from Hiprex 1gm bid for prevention of uti instead of keflex. Will follow, thank you, d/w primary team.
--- NOTE | 2018-03-01 14:00 | CASEMGMT ---
Addendum entered by Uzma Dominguez 03/01/18 15:22: SW placed a call to pt's CM Melvina Chavez Delonte at [facility] and left her a message regarding pt's discharge home today. Original Note: Social Work Note ORQUIDEA Gerber updated this worker that pt will need transportation set up via wheelchair van to go home. ORQUIDEA Gerber states pt's brother will be bringing in her wheelchair. ALEX placed a call to [facility] who states they are unable to transport pt. ALEX placed a call to [employer] and set up transportation via wheelchair van for 5:00pm. Per ORQUIDEA Gerber pt has ramp at home and updated pt on transportation time. Transportation form given to church secretary Taryn and copy placed on pt's chart. Uzma Dominguez MANAGER QUALITY, [employer]
--- NOTE | 2018-03-01 14:06 | DCINST_ITS ---
- Discharge Diagnoses Current Active Problems: Current Active and Chronic Problems Complicated urinary tract infection (Acute) Hematuria (Acute) Reason(s) for Visit for Discharge Instructions: UTI You will use the following diet at home:: Cardiac Your food should be the consistency of: Regular Your liquids should be the consistency of: Regular/Thin Weight Bearing Status: Weight bearing as tolerated Call your doctor if you observe: Fever of 101 or Higher Allergies/Adverse Reactions: Allergies No Known Allergies Allergy (Verified 02/26/18 12:12) Medications to take at Discharge Allopurinol [Zyloprim] 200 mg PO DAILY 07/05/14 Latanoprost 0.005% [Xalatan Opthalmic] 1 drop EACH EYE QHS 07/05/14 Losartan Potassium [Cozaar] 25 mg PO DAILY 07/05/14 Multivitamins,Therapeutic [Multivitamin] 1 tablet PO DAILY 07/05/14 Simvastatin [Zocor] 10 mg PO QHS 07/05/14 Timolol Maleate [Timoptic-XE 0.5%] 1 drop EACH EYE DAILY 07/05/14 Potassium Chloride [K-Dur] 20 meq PO DAILY 06/29/15 Saxagliptin HCl [Onglyza] 5 mg PO DAILY 07/01/17 Solifenacin Succinate [Vesicare] 10 mg PO DAILY 07/01/17 Ascorbic Acid [Vitamin C] 500 mg PO DAILY@0800 09/09/17 Mirabegron [Myrbetriq] 50 mg PO DAILY 11/23/17 Furosemide [Lasix] 20 mg PO DAILY 02/26/18 Ibuprofen 200 mg PO PRN PRN 02/26/18 Metformin HCl [Glucophage] 1,000 mg PO BID 02/26/18 Methenamine Hippurate [Hiprex] 1 gm PO BID #60 tablet 03/01/18 The following prescriptions were given: Methenamine Hippurate [Hiprex] 1 gm PO BID #60 tablet Primary Care Physician: Jones Esquivel MD [Primary Care Provider] - Please follow up with your Primary Care Physician in: one week Test Results: Test results from this visit will be discussed in further detail at your follow- up appointment, if applicable. Please Follow Up With: Javid Dennison MD When: 1-2 weeks o/a of recurrent anal fissures. Call office for appt Proposed Discharge Date: 03/01/18
--- NOTE | 2018-03-01 14:07 | PCM.DC.SUM ---
Discharge Date and Diagnosis Date of Admission: 02/26/18 Date of Discharge: 03/01/18 - Primary Discharge Diagnosis Active and Suspected Problems Complicated urinary tract infection (Acute) Hematuria (Acute) - Secondary Discharge Diagnosis Chronic Problems Open wound of left thigh (Chronic) traumatic skin tear posterior thigh Incompetent urethral closure mechanism (Chronic) Neurogenic bladder (Chronic) Stage II pressure ulcer (Chronic) Chronic suprapubic catheter (Chronic) Diabetes mellitus type 2 in nonobese (Chronic) Hypertension (Chronic) Gout (Chronic) with arthropathy Pressure ulcer of left buttock, stage 3 (Chronic) left lower buttock/upper thigh area Diabetes mellitus (Chronic) Pressure ulcer of right buttock, stage 3 (Chronic) Diabetic neuropathy, type II diabetes mellitus (Chronic) Malnutrition (Chronic) Back pain (Chronic) Arthritis (Chronic) 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 significance to followup Anemia of chronic disease (Chronic) Physical deconditioning (Chronic) Dupuytren's contracture of right hand (Chronic) Spinal stenosis (Chronic) Hyperlipidemia (Chronic) RP (rectal prolapse) (Chronic) Hospital Course and Treatment Consultations 02/26/18 17:05 Consult: Onc/Wound/court bailiff or sheriff Routine Comment: Operations: None, - - Excision of chronic soft tissue infection in left buttock extending to left ischium Procedures: None Summary of Care Provided: Patient is a 68-year-old female with an extensive past medical history as listed below. She was admitted through the ED on 02/26/2018 with a complaint of hematuria which started the day before with associated dysuria and suprapubic tenderness after she had had her chronic Rea catheter change the day before. She had no associated fever or chills. She had been taking Keflex prior to presentation and had a UA which showed Serratia which was sensitive to only IV tobramycin and gentamicin. She was therefore admitted to be administered these IV antibiotics as treatment for complete a UTI. Patient was started on IV tobramycin and ID was consulted. Cultures were negative. ID reviewed patient and thought it was more of her chronic colonization I do not think she requires antibiotics. Patient was discharged on 03/01/2018 and referred to general surgery on account of recurrent anal fissures. Per ID, was started on Hiprex 1 g twice daily for prevention of UTI, to continue upon discharge. She is follow-up with her primary care doctor in 1 week and referred to general surgeon (Dr Dennison). Patient seen and examined prior to discharge. She had no complaints and felt well. She denied any fever chills, any cough or chest pain, shortness of breath, abdominal pain, diarrhea or vomiting. 12 point review of systems otherwise negative. Labs and vitals reviewed. o/e: Vital Signs Height 5 ft 3 in Weight: 158 lb 7.986 oz Weight in Pounds 158.5 lbs Pulse Ox 97 Temperature 98.0 F Pulse Rate 98 Respiratory Rate 18 Blood Pressure 122/70 Blood Pressure Position Semi-Fowlers General: Alert, Oriented x3, Cooperative, No apparent distress HEENT: Atraumatic, PERRLA, EOMI, Normocephalic Oral: Moist Mucosa Neck: Supple, No JVD, Negative Carotid Bruits, Negative Hepatojugular Reflux, No Nodes Lungs: Clear to auscultation, Normal air movement, No rhonchi, No wheeze, No rales Cardiovascular: Regular rate, Regular Rhythm, Normal S1, Normal S2, No murmurs Abdomen: Bowel Sounds Present, Soft, Non Tender, Non-Distended, No Hepato-splenomegaly, - - colostomy bag intact, filled with moderate amounts of stool. filled Extremities: No clubbing, No cyanosis, - - minimal bipedal pitting edema; Skin: No rashes, No breakdown Musculoskeletal: No Tenderness to Palpation of Joints or Extremities Lymphatic: No Cervical, Supraclavicular, or Inguinal Adenopathy Neurological: Cranial nerves II-XII grossly intact, - - power 2/5 in LEs due to paraplegia Psych/Mental Status: Normal Affect, Appropriate, Alert and oriented to time, place, person, mood and affect Plan as discussed above. - Physical Exam Vital Signs Temp Pulse Resp BP Pulse Ox 98.0 F 101 H 18 129/74 H 96 03/01/18 09:10 03/01/18 09:10 03/01/18 09:10 03/01/18 09:10 03/01/18 11:34 Oxygen Delivery Method Room Air Weight: 158 lb 7.986 oz Body Mass Index (BMI) 28.0 Finger Stick Blood Glucose 109 Intake and Output for Last 24 Hours 11/02/0402/28/18 03/01/18 23:59 23:59 23:59 Intake Total 1729 / 1729 4153 / 4153 1496 / 1496 Output Total 3125 / 3125 3350 / 3350 1400 / 1400 Balance -1396 / -1396 803 / 803 96 / 96 Microbiology Past 72 Hours 02/26/18 13:10 Blood Culture - Preliminary Blood Culture (Wb) - No Site/Description Given No growth in 48 hours. Laboratory Tests Past 24 Hrs 03/01/18 03/01/18 03/01/18 03:50 03:50 03:50 WBC 6.7 RBC 3.73 L Hgb 9.9 L Hct 31.8 L MCV 85.3 MCH 26.5 L MCHC 31.1 L RDW 16.5 H RDW Differential 50.3 H Plt Count 252 MPV 9.1 Immature Gran % (Auto) 0.900 Neut % (Auto) 61.8 Lymph % (Auto) 22.6 [place] % (Auto) 10.0 Eos % (Auto) 4.3 Baso % (Auto) 0.4 Absolute Neuts (auto) 4.2 Absolute Lymphs (auto) 1.52 Total Counted Not Reportable Sodium 140 Potassium 4.3 Chloride 107 Carbon Dioxide 25.0 Anion Gap 8 BUN 23 H Creatinine 0.65 Estim Creat Clear Calc 43.92 Est GFR (MDRD) Af Amer 116 Est GFR (MDRD) Non-Af 96 BUN/Creatinine Ratio 35.4 H Glucose 126 H Calcium 7.8 L Random Tobramycin 2.40 POC Glucose 03/01/18 03/01/18 02/28/18 11:46 06:44 21:36 POC Glucose 179 H 147 H 174 H 02/28/18 15:57 POC Glucose 167 H Discharge Diet: Low fat/ Low Cholesterol Weight Bearing Status: Weight bearing as tolerated Call your doctor if you observe: Fever of 101 or Higher Home Medications: Medications to take at Discharge Allopurinol [Zyloprim] 200 mg PO DAILY 07/05/14 Latanoprost 0.005% [Xalatan Opthalmic] 1 drop EACH EYE QHS 07/05/14 Losartan Potassium [Cozaar] 25 mg PO DAILY 07/05/14 Multivitamins,Therapeutic [Multivitamin] 1 tablet PO DAILY 07/05/14 Simvastatin [Zocor] 10 mg PO QHS 07/05/14 Timolol Maleate [Timoptic-XE 0.5%] 1 drop EACH EYE DAILY 07/05/14 Potassium Chloride [K-Dur] 20 meq PO DAILY 06/29/15 Saxagliptin HCl [Onglyza] 5 mg PO DAILY 07/01/17 Solifenacin Succinate [Vesicare] 10 mg PO DAILY 07/01/17 Ascorbic Acid [Vitamin C] 500 mg PO DAILY@0800 09/09/17 Mirabegron [Myrbetriq] 50 mg PO DAILY 11/23/17 Furosemide [Lasix] 20 mg PO DAILY 02/26/18 Ibuprofen 200 mg PO PRN PRN 02/26/18 Metformin HCl [Glucophage] 1,000 mg PO BID 02/26/18 Methenamine Hippurate [Hiprex] 1 gm PO BID #60 tablet 03/01/18 Following Prescrptions Were Given to Patient: Methenamine Hippurate [Hiprex] 1 gm PO BID #60 tablet Primary Care Physician: Jones Esquivel MD [Primary Care Provider] - Please follow up with your Primary Care Physician in: one week Please Follow Up With: Javid Dennison MD When: 1-2 weeks o/a of recurrent anal fissures. Call office for appt Disposition: Home with Home Health Minutes spent on discharge:: 40 Patient Condition:: Stable Medical Necessity - Tobacco Use Smoking Status: Never smoker Tobacco Use: Non-smoker Meaningful Use Info Meaningful Use Diagnoses (Choose all that apply): None applicable Code Visit Inpatient E&M: 93885 Disch Hosp
--- NOTE | 2018-03-01 15:14 | CASEMGMT ---
Social Work Note SW met with pt to follow up regarding advanced directives. Per previous notes, pt doesn't know where her current advanced directives are at. SW asked pt if she wished to complete them now. Pt states that she is getting ready to leave and needs to get dressed. Pt denied wanting to complete advanced directives at this time. Pt was given documents over the weekend and can complete them at home. Uzma Dominguez DEMENTIA PROGRAM DIRECTOR, [employer] SUPERVISOR
[2018-03-01 15:50] VITALS: BP 122/70; PULSE 98; RESP 18; TEMP 36.7; O2SAT 97
--- NOTE | 2018-03-04 16:23 | CASEMGMT ---
RN CM Discharge Follow-up Phone Call: ROBERT: David Strata: 4 Call Date: 03/04/18 Discharge Date: 03/01/18 Time of Call: 1620 Duration: 1min Admitting Diagnosis: Complicated Serratia UTI RN CM attempted to complete follow-up phone call after recent hospitalization. No answer, voice message left with return contact information.
== END 2018-03-01 15:47 | disposition home health service (06) | DRG 463 ==
LOC: ED 13:17 → MS3 15:29
PROVIDERS: Admitting Provider Family Medicine; Emergency Provider Emergency Medicine; Family Provider Family Medicine; PCP Family Medicine; Visit Provider Student in an Organized Health Care Education/Training Program
DX: N39.0 Urinary tract infection, site not specified (principal); B96.89 Other specified bacterial agents as the cause of diseases classified elsewhere; R31.9 Hematuria, unspecified; Z16.24 Resistance to multiple antibiotics; Z93.3 Colostomy status; N31.9 Neuromuscular dysfunction of bladder, unspecified; Z23 Encounter for immunization; E78.5 Hyperlipidemia, unspecified; I10 Essential (primary) hypertension; E11.42 Type 2 diabetes mellitus with diabetic polyneuropathy; E66.9 Obesity, unspecified; Z68.28 Body mass index [BMI] 28.0-28.9, adult; L89.313 Pressure ulcer of right buttock, stage 3; Z79.84 Long term (current) use of oral hypoglycemic drugs; M10.9 Gout, unspecified; D63.8 Anemia in other chronic diseases classified elsewhere; M48.00 Spinal stenosis, site unspecified; L89.324 Pressure ulcer of left buttock, stage 4
CPT/HCPCS: 36415; 80048; 80053; 80200; 82962; 83605; 83735; 85014; 85018; 85025; 85610; 85730; 87040; 97110; 97162; 97166; 97530; 97802; 99283; J7030; 90686

== ENCOUNTER → 2018-03-10 14:22 | Outpatient (CLI) | payer MEDICAID, SELFPAY ==
[2018-02-26 17:13] VITALS: BMI 28.0
[2018-03-10 16:11] LABS: Absolute Lymphocyte Count 1.64 X10^3/ul (0.83-4.51); Absolute Neutrophil Count 9.6 X10^3/uL (2.0-7.7); Basophil# 0.02 X10^3/uL; Basophil% 0.2 % (0-1); Eosinophil# 0.22 X10^3/uL; Eosinophils% 1.8 % (0-5); Hematocrit 38.8 % (37-47); Hemoglobin 11.8 g/dl (12.0-15.0); Immature Platelet Fraction 1.3 % (1.0-7.9); Lymphocyte # 1.64 X10^3/ul (4.0); Lymphocyte % 13.5 % (19-41); Mean Corp Hgb Conc 30.4 g/gl (32-36); Mean Corpuscular Hgb 26.3 pg (27.0-32.0); Mean Corpuscular Volume 86.6 fL (81-99); Mean Platelet Vol. 9.7 fl (6.2-12.0); Monocyte# 0.61 X10^3/uL; Neutrophil # 9.63 X10^3/uL (2.7-7.7); Neutrophil % 79.3 % (47-70); Platelet Count 387 K/mm3 (150-450); RBC Distribution Width CV 16.9 % (11.6-14.6); RBC Distribution Width SD 53.1 fl (35.1-43.9); RET-HE 27.8 pg (30-35); Red Blood Count 4.48 M/mm3 (4.2-5.4); Reticulocyte Count 1.79 % (0.5-1.5); White Blood Count 12.2 K/mm3 (4.4-11.0)
[2018-03-10 16:21] LABS: POSITIVE COUNT NO; POSITIVE DIFFERENTIAL NO; POSITIVE MORPHOLOGY NO
[2018-03-10 16:26] LABS: Anion Gap 13 (5-15); BUN 46 mg/dL (7-18); BUN/Creat Ratio 48.8 RATIO (10-20); Calcium,Total 9.3 mg/dL (8.5-10.1); Chloride 105 mmol/L (98-107); Creatinine, Serum 0.94 mg/dL (0.55-1.02); EST Glomerular Filtration Rate 63 mL/min (>60); Est Glom Filt Rate - Afr Amer 76 mL/min (>60); Ferritin 145 ng/mL (8-252); Glucose 136 mg/dL (74-106); Iron 33 ug/dL (50-170); Iron Binding Capacity,Total 332 ug/dL (250-450); Magnesium 1.9 mg/dL (1.6-2.6); Phosphorus 3.4 mg/dL (2.5-4.9); Potassium 4.4 mmol/L (3.5-5.1); Sodium Level 140 mmol/L (136-145); Vitamin D,25 Hydroxy 28.5 ng/mL (29.95-100.01)
[2018-03-10 19:32] LABS: PTHIN 32.1 pg/mL (18.4-80.1)
== END ==
PROVIDERS: Family Provider Family Medicine; PCP Family Medicine; Visit Provider Family Medicine
DX: D64.9 Anemia, unspecified (principal); E83.42 Hypomagnesemia; E83.51 Hypocalcemia
CPT/HCPCS: 36415; 80048; 82306; 82330; 82728; 83540; 83550; 83735; 83970; 84100; 85025; 85045

== ENCOUNTER 2018-03-19 08:54 | Outpatient (RCR) | payer MEDICAID, SELFPAY ==
[2018-02-18 00:44] VITALS: BP 131/75; PULSE 114; RESP 18; TEMP 36.6
[2018-03-15 13:37] VITALS: BMI 30.8
[2018-03-19 13:58] VITALS: BP 135/76; PULSE 105; RESP 20; TEMP 36.6; BMI 30.8
--- NOTE | 2018-03-19 18:02 | PN.PCM_ITS ---
(1) Pressure ulcer of left buttock, stage 3 Status: Chronic Current Visit: Yes Code(s): L89.323 - Pressure ulcer of left buttock, stage 3 Comment: left lower buttock/upper thigh area (2) Diabetes mellitus Status: Chronic Current Visit: Yes Qualifiers: Diabetes mellitus type: type 2 Diabetes mellitus complication status: with unspecified complications Code(s): E11.9 - Type 2 diabetes mellitus without complications (3) Pressure ulcer of right buttock, stage 3 Status: Chronic Current Visit: Yes Code(s): L89.313 - Pressure ulcer of right buttock, stage 3 (4) Pressure sore of left ischium, stage 4 Status: Chronic Current Visit: Yes Code(s): L89.324 - Pressure ulcer of left buttock, stage 4 (5) Spinal stenosis Status: Chronic Current Visit: Yes Qualifiers: Spinal region: lumbosacral Code(s): M48.00 - Spinal stenosis, site unspecified Type of Wound Date of Service: 03/19/18 Chief Complaint: Left ischial pressure ulcer, Stage IV. Right ischial pressure ulcer, stage III. Spinal stenosis. Ulceration of posterior left upper thigh, stage III. History of Wound: Patient is a 67-year-old female who has a chronic pressure ulcer of her left ischium and right ischium. Patient was initially hospitalized for a swelling and redness of her right leg approximately 2014. This was evaluated for cellulitis. She was seen in consultation by infectious disease and plastic surgery. The patient was taken to surgery for an operative debridement of her chronic left ischial ulcer, underwent wound vac treatment and IV antibiotics. She was abruptly released from the [facility] after only a few weeks, before end of therapy. She had finished her IV antibiotics for Grp A strep osteomyelitis at home and continued with PT at home as well. She has decided to go with the conservative care route since she feels that her quality of life is more important than healing out the wound but had continued to keep the wound vac. The wound vac was discontinued by her insurance for failure to show improvement in the size of her wound. She has been seen twice monthly for conservative/palliative/complex care of her bilateral ischial pressure ulcers. She lives with her brother and [id number], who help dress her ulcers/wounds. She has recently developed a skin tear/abrasion of the left buttock/upper posterior thigh. Current management involves the use of collagenase Santyl topically to the skin tear on the left posterior upper thigh, and Aquacel with respect to the ischial pressure ulcerations. The patient has recently completed courses of antibiotics which have included Augmentin and clindamycin. In January 2017, she underwent treatment after developing pressure ulcers which occurred from urinary incontinence issues associated with a chronic UTI and leakage of her catheter. She developed another pressure ulcer of her right buttock on or around April 20, 2017, and presented for treatment of this area as well as continued treatment of her left ischial pressure ulcer. Denies fever, chills or increased pain. The patient indicates that she sleeps on an air loss mattress, and possesses a Roho cushion for her wheelchair. She has previously been counseled as to the importance of offloading measures. She also has been taking Sigifredo protein shakes, and is aware that optimizing glycemic control is advisable. Review of recent laboratory studies reveals a protein of 8.6, albumin 3.2, and hemoglobin A1c of 6.9, on June 03, 2017. Patient is essentially nonambulatory, and uses a walker for transition from bed to chair. She is severely deconditioned. Progress of Wound: Patient continues with conservative care management of left ischium - aquacel dressing to wound daily. No concerns for infection in this pressure ulcer at this time. The pressure ulcer of her right gluteal fold is improved this week with a slight decrease in drainage from this ulcer. Her left upper thigh ulcer is improved somewhat and is undermining close to the left ischium ulcer. She has been having improvement with urinary incontinence and still has chronic roach catheter. She continues to sit in her wheelchair frequently for long periods of time but has tried to offload more. Denies fever or chills. She was recently hospitalized for UTI complicated by superinfection with multi-drug resistant bacteria. She is currently still taking antibiotic treatment for this and is having further testing done to evaluate for possible fistula to her rectum. - Physical Exam Vital Signs Temp Pulse Resp BP 97.8 F 105 H 20 H 135/76 H 03/19/18 13:58 03/19/18 13:58 03/19/18 13:58 03/19/18 13:58 General: Alert, Oriented x3, Cooperative, No apparent distress HEENT: Atraumatic, Normocephalic Oral: Moist Mucosa Abdomen: Obese Skin: Ulcer/ Wound Wound Measurements and Assessment WC - Nurse 1 - General Ulcer Measurement Start: 03/19/18 13:45 Freq: Status: Active Protocol: Activity Type Activity Date Activity User E-Sign Co-Sign Detail Recorded Client Recorded Date Recorded By Document 03/19/18 13:58 AN [id number] 03/19/18 14:14 AN 03/19/18 13:58 Wound Center Nurse 1 [Ulcer Assessment] #11 left upper thigh -Current Size (cm) - Length 1.5 -Current Size (cm) - Width 2.4 -Current Size (cm) - Depth 1.0 -Total Square Cm 3.60 -Photo Taken No -Epithelialization None Present -Tunneling No -Undermining/Tunneling Yes -Undermining/Tunneling Starts (O' 9 clock) -Undermining/Tunneling Ends (O'clock) 1 -Maximum Distance (cm) 1.5 -Circular Undermining No -Classification - Thickness Full Thickness without Exposed Support Structure -Exudate Amt Large (67-100%) -Exudate Type Purulent -Wound Margin Distinct, Outline Attached -Granulation Amt Medium (34-66%) -Granulation Quality Red -Slough/Fibrin Yes -Necrosis Amt Medium (34-66%) -Necrotic Tissue Type Eschar -Structure Exposed Fat Layer Exposed -Texture (Amirah-wound Skin Appearance) Assessed Callus -Moisture (Amirah-wound Skin Appearance Assessed ) -Color (Amirah-wound Skin Appearance) Assessed -Temperature (Amirah-wound Skin No Abnormality Appearance) (Pt Warm) -Tenderness on Palpation (Amirah-wound No Skin Appearance) -Ulcer Cleansing Rinsed/ Irrigated with Saline -Foul Odor after Cleansing Yes -Anesthetic Used 4% Lidocaine Solution #7- RT GLUTEAL FOLD Stage III -Current Size (cm) - Length 6.0 -Current Size (cm) - Width 4.0 -Current Size (cm) - Depth 2.8 -Total Square Cm 24.00 -Photo Taken No -Epithelialization None Present -Tunneling No -Undermining/Tunneling No -Circular Undermining No -Classification - Thickness Full Thickness without Exposed Support Structure -Exudate Amt Large (67-100%) -Exudate Type Purulent -Wound Margin Distinct, Outline Attached -Granulation Amt Medium (34-66%) -Granulation Quality Red -Necrosis Amt Medium (34-66%) -Necrotic Tissue Type Eschar -Texture (Amirah-wound Skin Appearance) Assessed Callus -Moisture (Amirah-wound Skin Appearance Assessed ) -Color (Amirah-wound Skin Appearance) Assessed -Temperature (Amirah-wound Skin No Abnormality Appearance) (Pt Warm) -Tenderness on Palpation (Amirah-wound No Skin Appearance) -Ulcer Cleansing Rinsed/ Irrigated with Saline -Foul Odor after Cleansing Yes -Anesthetic Used 4% Lidocaine Solution WC - Nurse 2 - General Ulcer CM Notes Start: 03/19/18 13:45 Freq: Status: Active Protocol: Activity Type Activity Date Activity User E-Sign Co-Sign Detail Recorded Client Recorded Date Recorded By Document 03/19/18 14:24 [id number] 03/19/18 14:35 CS 03/19/18 14:24 Wound Center Nurse 2 [Procedure/Treatment] #11 left upper thigh -Time 14:28 -Correct Patient Yes -Correct Side, Site, Position Yes -Correct Procedure Yes -Procedure Performed Yes -Type of Procedure Debridement -Clinical Debridement Subcutaneous -Post Debridement Size (cm) - Length 3.8 -Post Debridement Size (cm) - Width 2.0 -Post Debridement Size (cm) - Depth 1.5 -Total Square Cm 7.60 -Wound/Ulcer Outcome Not Healed -Ulcer Cleansing Rinsed/ Irrigated with Saline -Foul Odor after Cleansing No -Bioengineered Tissue No -Bleeding Controlled with NA -Offloading No -Treatment Response Procedure Tolerated Well #7- RT GLUTEAL FOLD Stage III -Time 14:28 -Correct Patient Yes -Correct Side, Site, Position Yes -Correct Procedure Yes -Procedure Performed Yes -Type of Procedure Debridement -Clinical Debridement Subcutaneous -Post Debridement Size (cm) - Length 4.5 -Post Debridement Size (cm) - Width 3.5 -Post Debridement Size (cm) - Depth 3.5 -Total Square Cm 15.75 -Wound/Ulcer Outcome Not Healed -Ulcer Cleansing Rinsed/ Irrigated with Saline -Foul Odor after Cleansing No -Bioengineered Tissue No -Bleeding Controlled with NA -Offloading No -Treatment Response Procedure Tolerated Well #10 L buttocks stage IV -Time 14:28 -Correct Patient Yes -Correct Side, Site, Position Yes -Correct Procedure Yes -Procedure Performed Yes -Type of Procedure Debridement -Clinical Debridement Subcutaneous -Post Debridement Size (cm) - Length 0.4 -Post Debridement Size (cm) - Width 0.4 -Post Debridement Size (cm) - Depth 0.5 -Total Square Cm 0.16 -Wound/Ulcer Outcome Not Healed -Ulcer Cleansing Rinsed/ Irrigated with Saline -Foul Odor after Cleansing No -Bioengineered Tissue No -Bleeding Controlled with NA -Offloading No -Treatment Response Procedure Tolerated Well [See Physician Procedure note for Specifics] Pain Scale: 0-10 Numeric [Pain] -Is Patient Pain Free? Yes Psych/Mental Status: Normal Affect, Appropriate Debridement Note Post-Debridement Measurements/Treatment WC - Nurse 2 - General Ulcer CM Notes Start: 03/19/18 13:45 Freq: Status: Active Protocol: Activity Type Activity Date Activity User E-Sign Co-Sign Detail Recorded Client Recorded Date Recorded By Document 03/19/18 14:24 [id number] 03/19/18 14:35 CS 03/19/18 14:24 Wound Center Nurse 2 #11 left upper thigh -Time 14:28 -Correct Patient Yes -Correct Side, Site, Position Yes -Correct Procedure Yes -Procedure Performed Yes -Type of Procedure Debridement -Clinical Debridement Subcutaneous -Post Debridement Size (cm) - Length 3.8 -Post Debridement Size (cm) - Width 2.0 -Post Debridement Size (cm) - Depth 1.5 -Total Square Cm 7.60 -Wound/Ulcer Outcome Not Healed -Ulcer Cleansing Rinsed/ Irrigated with Saline -Foul Odor after Cleansing No -Bioengineered Tissue No -Bleeding Controlled with NA -Offloading No -Treatment Response Procedure Tolerated Well #7- RT GLUTEAL FOLD Stage III -Time 14:28 -Correct Patient Yes -Correct Side, Site, Position Yes -Correct Procedure Yes -Procedure Performed Yes -Type of Procedure Debridement -Clinical Debridement Subcutaneous -Post Debridement Size (cm) - Length 4.5 -Post Debridement Size (cm) - Width 3.5 -Post Debridement Size (cm) - Depth 3.5 -Total Square Cm 15.75 -Wound/Ulcer Outcome Not Healed -Ulcer Cleansing Rinsed/ Irrigated with Saline -Foul Odor after Cleansing No -Bioengineered Tissue No -Bleeding Controlled with NA -Offloading No -Treatment Response Procedure Tolerated Well #10 L buttocks stage IV -Time 14:28 -Correct Patient Yes -Correct Side, Site, Position Yes -Correct Procedure Yes -Procedure Performed Yes -Type of Procedure Debridement -Clinical Debridement Subcutaneous -Post Debridement Size (cm) - Length 0.4 -Post Debridement Size (cm) - Width 0.4 -Post Debridement Size (cm) - Depth 0.5 -Total Square Cm 0.16 -Wound/Ulcer Outcome Not Healed -Ulcer Cleansing Rinsed/ Irrigated with Saline -Foul Odor after Cleansing No -Bioengineered Tissue No -Bleeding Controlled with NA -Offloading No -Treatment Response Procedure Tolerated Well Pain Scale: 0-10 Numeric Is Patient Pain Free? Yes Wound debrided: left upper thigh stage III Laterality: Left Wound Grade/Stage: Stage III Type of Debridement: Excisional debridement Anesthesia Used: 4% Lidocaine Solution Depth: Down to and including healthy tissue, in the subcutaneous layer Percentage of wound debrided: 100 Instrument Used: 5mm curette Tissue Removed: yellow slough, devitalized tissue Severity: Fat Layer Exposed Amount of bleeding with debridement: Mild Bleeding Controlled with: Compression and gauze Patient tolerated procedure well - Additional Wound Wound debrided: right gluteal fold Stage III Laterality: Right Wound Grade/Stage: stage III Type of Debridement: Excisional debridement Anesthesia Used: 4% Lidocaine Solution Depth: Down to and including healthy tissue, in the subcutaneous layer Percentage of wound debrided: 100 Instrument Used: 5mm curette Tissue Removed: yellow slough, devitalized tissue Severity: Fat Layer Exposed Amount of bleeding with debridement: Mild Bleeding Controlled with: Compression and gauze Patient tolerated procedure: Patient tolerated procedure well - Additional Wound Wound debrided: left ischium stage IV Laterality: Left Wound Grade/Stage: stage IV Type of Debridement: Excisional debridement Anesthesia Used: 4% Lidocaine Solution Depth: Down to and including healthy tissue, in the subcutaneous layer Percentage of wound debrided: 100 Instrument Used: 5mm curette Tissue Removed: yellow slough, devitalized tissue Severity: Fat Layer Exposed Amount of bleeding with debridement: Mild Bleeding Controlled with: Compression and gauze Patient tolerated procedure: Patient tolerated procedure well Assessment/Plan Active Problems Pressure ulcer of left buttock, stage 3 (Chronic) left lower buttock/upper thigh area Diabetes mellitus (Chronic) Pressure ulcer of right buttock, stage 3 (Chronic) Pressure sore of left ischium, stage 4 (Chronic) Spinal stenosis (Chronic) Assessment: This is a 67-year-old female with bilateral ischial pressure ulcerations. She also has an ulceration of the left buttock/posterior upper thigh. The patient has chosen to forego aggressive surgical management in the past, choosing rather to pursue more conservative treatment modalities. She is currently on a complex care regimen. Offloading measures are to be continued. We are to continue the use of Aquacel Extra topically to each of the ischial pressure ulcerations. Optimization of her diabetes mellitus has been recommended. Optimizing nutrition has also been reinforced. The patient does not wish to consider a more aggressive approach which would involve surgical options. She has rebuffed the idea of consultation with a plastic surgeon. Recent CT scan of the pelvis, performed 08/05/2017, reveals no evidence of osteomyelitis. Plan: Continue conservative/complex care plan for all wounds. No current osteomyelitis present. Will continue using Allevyn to help protect her wounds fr om moisture of urine. Minimal improvement in measurements of wounds. Will return in 2 weeks for reassessment. Wound vac with reggie was denied by insurance. Optimizing nutrition and diabetes control has been recommended. Offloading measures and frequent repositioning are to continue. Patient has been encouraged to increase protein intake to aid in wound healing and maintain good control of diabetes. Discussed offloading importance in wound healing. We are to continue Aquacel for all the ischial/buttock pressure ulcerations. F/U in 2 weeks.
--- OUTSIDE RECORDS SUMMARY | 2018-05-14 03:47 | XMS RPT_ITS ---
:1950 Author Organization [facility] Support Name Relationship Address Phone JUAN MANUELLESLYE BLUE Unavailable [address] + [place] [address] R Unavailable Unavailable Unavailable LESLYE ZAMBRANO Unavailable [address] + [place] [address] R Unavailable Unavailable Unavailable LESLYE ZAMBRANO Unavailable [address] + [place] [address] R Unavailable Unavailable Unavailable LESLYE ZAMBRANO Unavailable [address] + [place] [address] R Unavailable Unavailable Unavailable LESLYE ZAMBRANO Unavailable [address] + [place] [address] R Unavailable Unavailable Unavailable LESLYE ZAMBRANO Unavailable [address] + [place] [address] R Unavailable Unavailable Unavailable BRANDO ZAMBRANO/LESLYE Unavailable [address] + [place] [address] R Unavailable Unavailable Unavailable KIARRA ZAMBRANO Unavailable [address] + [place] [address] R Unavailable Unavailable Unavailable KIARRA ZAMBRANO Unavailable [address] + [place] [address] R Unavailable Unavailable Unavailable BRANDO ZAMBRANO/LESLYE Unavailable [address] + [place] [address] R Unavailable Unavailable Unavailable BRANDO ZAMBRANO/LESLYE Unavailable [address] + [place] [address] R Unavailable Unavailable Unavailable BRANDO ZAMBRANO/LESLYE Unavailable [address] + [place] [address] R Unavailable Unavailable Unavailable BRANDO ZAMBRANO/LESLYE Unavailable [address] + [place] [address] R Unavailable Unavailable Unavailable BRANDO ZAMBRANO/LESLYE Unavailable [address] + [place] [address] R Unavailable Unavailable Unavailable BRANDO ZAMBRANO/LESLYE Unavailable [address] + [place] [address] R Unavailable Unavailable Unavailable JUAN MANUELBRANDO BLUE/LESLYE Unavailable [address] + [place] [address] R Unavailable Unavailable Unavailable JUAN MANUELBRANDO BLUE/LESLYE Unavailable [address] + [place] [address] R Unavailable Unavailable Unavailable JUAN MANUELBRANDO BLUE/LESLYE Unavailable [address] + [place] [address] R Unavailable Unavailable Unavailable JUAN MANUELBRANDO BLUE/LESLYE Unavailable [address] + [place] [address] R Unavailable Unavailable Unavailable JUAN MANUELBRANDO BLUE/LESLYE Unavailable [address] + [place] [address] R Unavailable Unavailable Unavailable BRANDO ZAMBRANO/LESLYE Unavailable [address] + [place] [address] R Unavailable Unavailable Unavailable BRANDO ZAMBRANO/LESLYE Unavailable [address] + [place] [address] R Unavailable Unavailable Unavailable BRANDO ZAMBRANO/LESLYE Unavailable [address] + [place] [address] R Unavailable Unavailable Unavailable JUAN MANUELBRANDO BLUE/LESLYE Unavailable [address] + [place] [address] R Unavailable Unavailable Unavailable BRANDO ZAMBRANO/LESLYE Unavailable [address] + [place] [address] R Unavailable Unavailable Unavailable JUAN MANUELBRANDO BLUE/LESLYE Unavailable [address] + [place] [address] R Unavailable Unavailable Unavailable JUAN MANUELBRANDO BLUE/LESLYE Unavailable [address] + [place] [address] R Unavailable Unavailable Unavailable BRANDO ZAMBRANO/LESLYE Unavailable [address] + [place] [address] R Unavailable Unavailable Unavailable Care Team Providers Name Role Phone Vanessa Bull Attending Unavailable Ranney, Christopher Primary Care Unavailable Ranney, Christopher Primary Care Unavailable Lind, Joaquín Attending Unavailable Lind, Joaquín Referring Unavailable MalysEvonnea Attending Unavailable Lind, Joaquín Referring Unavailable Ranney, Christopher Primary Care Unavailable White, Sari Admitting Unavailable Koram, Aleshia Rosa M Attending Unavailable Ranney, Christopher Primary Care Unavailable Keonam, Aleshia Rosa M Consulting Unavailable Javid Dennison Attending Unavailable Juma, Javid Referring Unavailable Ranney, Christopher Primary Care Unavailable Evonne Bulla Attending Unavailable Lind, Joaquín Referring Unavailable Ranney, Christopher Primary Care Unavailable Ranney, Christopher Attending Unavailable Ranney, Christopher Referring Unavailable Ranney, Christopher Primary Care Unavailable Javid Dennison Attending Unavailable Ranney, Christopher Referring Unavailable White, Sari Admitting Unavailable White, Sari Attending Unavailable Ranney, Christopher Primary Care Unavailable White, Sari Consulting Unavailable Ranney, Christopher Primary Care Unavailable White, Sari Admitting Unavailable Keonam, Aleshia Rosa M Attending Unavailable Lavon Joseph Consulting Unavailable Ranney, Christopher Attending Unavailable Ranney, Christopher Primary Care Unavailable Ranney, Christopher Referring Unavailable MalysVanessa Attending Unavailable Lind, Joaquín Referring Unavailable Ranney, Christopher Primary Care Unavailable Evonne Bulla Attending Unavailable Lind, Joaquín Referring Unavailable Ranney, Christopher Primary Care Unavailable MalysEvonnea Attending Unavailable Lind, Joaquín Referring Unavailable Ranney, Christopher Primary Care Unavailable Lind, Joaquín Referring Unavailable Ranney, Christopher Primary Care Unavailable Evonne Bulla Attending Unavailable Derrick Silva Attending Unavailable Ricardo, Renan Referring Unavailable Ranney, Christopher Primary Care Unavailable Lind Joaquín Attending Unavailable Lind, Joaquín Referring Unavailable Ranney, Christopher Primary Care Unavailable Derrick Silva Attending Unavailable Ricardo, Renan Referring Unavailable Ranney, Christopher Primary Care Unavailable MalysEvonnea Attending Unavailable Ranney, Christopher Primary Care Unavailable Ranney, Christopher Attending Unavailable Ranney, Christopher Primary Care Unavailable Vanessa Bull Attending Unavailable Ranney, Christopher Primary Care Unavailable Ranney, Christopher Attending Unavailable Ranney, Christopher Primary Care Unavailable Javid Dennison Attending Unavailable Ranney, Christopher Referring Unavailable Ranney, Christopher Attending Unavailable Ranney, Christopher Primary Care Unavailable White, Sari Admitting Unavailable Koram, Aleshia Rosa M Attending Unavailable Ranney, Christopher Primary Care Unavailable Lavon Joseph Consulting Unavailable Koram, Aleshia Rosa M Consulting Unavailable White, Sari Admitting Unavailable Koram, Aleshia Rosa M Attending Unavailable Ranney, Christopher Primary Care Unavailable Koram, Aleshia Rosa M Consulting Unavailable Ranney, Christopher Primary Care Unavailable Phani Ross Attending Unavailable Malys, Vanessa Attending Unavailable Joaquín Lind Referring Unavailable Ranney, Christopher Primary Care Unavailable PROBLEMS PROBLEMS DATE TYPE CONDITION / CODE ATTENDING STATUS SOURCE 03/20/2018 Unknown 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, Active [place] ulcer of left [facility] buttock, stage 4 / Hospital L89.324(ICD-10) Repository 03/20/2018 Unknown 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, Active [place] ulcer of right [facility] buttock, stage 3 / Hospital L89.313(ICD-10) Repository 03/20/2018 Unknown N31.9 - Ranney, Active [place] Neuromuscular [facility] dysfunction of Hospital bladder, Repository unspecified / N31.9(ICD-10) 03/15/2018 Unknown K62.89 - Other Javid Dennison Active [place] specified diseases Community of anus and rectum Hospital / K62.89(ICD-10) Repository 04/08/2017 Unknown N39.0 - Urinary Ranney, Active [place] tract infection, [facility] site not specified Hospital / N39.0(ICD-10) Repository PROCEDURES PROCEDURES No Procedure Records FoundRESULTS RESULTS SURGERY VISIT REPORT Observed: 03/26/2018 Status: F Source: [place] 10:44 AM [facility] [place] [facility] [address] [place] [address] OFFICE VISIT Date of Service: 03/24/18 MR#: [id number] Acct: [id number] Name: VAZQUEZ ZAMBRANO Rep #: [id number] : 1950 Provider: Javid Dennison MD Age/Sex: 68/F Location: [facility] Status: Signed Intake Vital Signs03/24/18 Body Mass Index (BMI) 30.8 Intake Visit Reasons: FU TEST RESULTS Enemia 03/22 Chief Complaint: uti Digital Media Designer Required: No Is patient in pain?: No Allergies No Known Allergies Allergy (Verified 03/24/18 13:10) Medications Allopurinol [Zyloprim] 200 mg PO DAILY 07/05/14 [History Confirmed 03/24/18] Latanoprost 0.005% [Xalatan Opthalmic] 1 drp EACH EYE QHS 07/05/14 [History Confirmed 03/24/18] Losartan Potassium [Cozaar] 25 mg PO DAILY 07/05/14 [History Confirmed 03/24/18] Multivitamins,Therapeutic [Multivitamin] 1 tab PO DAILY 07/05/14 [History Confirmed 03/24/18] Simvastatin [Zocor] 10 mg PO QHS 07/05/14 [History Confirmed 03/24/18] Timolol Maleate [Timoptic-XE 0.5%] 1 drp EACH EYE DAILY 07/05/14 [History Confirmed 03/24/18] Potassium Chloride [K-Dur] 20 meq PO DAILY 06/29/15 [History Confirmed 03/24/18] Saxagliptin HCl [Onglyza] 5 mg PO DAILY 07/01/17 [History Confirmed 03/24/18] Solifenacin Succinate [Vesicare] 10 mg PO DAILY 07/01/17 [History Confirmed 03/24/18] Ascorbic Acid [Vitamin C] 500 mg PO DAILY@0800 09/09/17 [History Confirmed 03/24/18] Mirabegron [Myrbetriq] 50 mg PO DAILY 11/23/17 [History Confirmed 03/24/18] Furosemide [Lasix] 20 mg PO DAILY 02/26/18 [History Confirmed 03/24/18] Ibuprofen 200 mg PO PRN PRN 02/26/18 [History Confirmed 03/24/18] Metformin HCl [Glucophage] 1,000 mg PO BID 02/26/18 [History Confirmed 03/24/18] Methenamine Hippurate [Hiprex] 1 gm PO BID #60 tab 03/01/18 [Rx Confirmed 03/24/18] [facility] Medical History Open wound of left thigh (Chronic) Incompetent urethral closure mechanism (Chronic) Neurogenic bladder (Chronic) Stage II pressure ulcer (Chronic) Complicated urinary tract infection (Acute) Hematuria (Acute) Diabetes mellitus type 2 in nonobese (Chronic) Hypertension (Chronic) Gout (Chronic) Pressure ulcer of left buttock, stage 3 (Chronic) Pressure ulcer of left buttock, stage 2 (Resolved) Diabetes mellitus (Chronic) Pressure ulcer of right buttock, stage 3 (Chronic) Diabetic neuropathy, type II diabetes mellitus (Chronic) Malnutrition (Chronic) Back pain (Chronic) Arthritis (Chronic) chronic osteomyelitis left ischial area (Chronic) Pressure sore of left ischium, stage 4 (Chronic) 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 Patient has been having some increasing foul-smelling discharge from her anus. She has had this in the past but it has been pretty particularly irritating to her this last time. And it was not more than just mucus which normally comes out. I thought that it was important for us to get a barium enema on her and I ordered a Gastrografin enema which was completed on March 22, 2018. Patient was noted to have a large amount of fecal material seen throughout the colon the rectum and distal sigmoid colon were opacified and no fistula was identified and there was no mucosal abnormality identified. She has no abdominal nor does she have any rectal pain or anal pain at this time. Exam GI Other: Her abdomen is soft and nontender Assessment AND Plan Problems 1. Rectal discharge R19.8 Plan At this point I think the easiest thing for us to do is just have the patient do fleets enema x1 for 3 months. Once a month would be fine. If she has further abnormal discharge from her rectum I think a flex sig would be appropriate at that time. Coding Level of Care Code Off vis,est,level 2 Diagnoses Rectal discharge R19.8 03/26/18 1044 <Electronically signed by Javid Dennison MD> Date Javid Dennison MD Cosigner Signature: Date (if applicable) CC: Power Esquivel MD SURGERY VISIT REPORT Observed: 03/23/2018 Status: F Source: [place] 12:55 PM [facility] [place] [facility] [address] [place] [address] [address] [place] [address] OFFICE VISIT Date of Service: 03/15/18 MR#: [id number] Acct: [id number] Name: VAZQUEZ ZAMBRANO Rep #: [id number] : 1950 Provider: Javid Dennison MD Age/Sex: 68/F Location: [facility] Status: Signed Intake Vital Signs03/15/18 Height 5 ft 03/15/18 Weight: 158 lb 03/15/18 Body Mass Index (BMI) 30.8 Intake Visit Reasons: recurrent anal fissures Chief Complaint: uti Digital Media Designer Required: No Is patient in pain?: No Allergies No Known Allergies Allergy (Verified 03/15/18 13:37) Medications Allopurinol [Zyloprim] 200 mg PO DAILY 07/05/14 [History Confirmed 03/15/18] Latanoprost 0.005% [Xalatan Opthalmic] 1 drp EACH EYE QHS 07/05/14 [History Confirmed 03/15/18] Losartan Potassium [Cozaar] 25 mg PO DAILY 07/05/14 [History Confirmed 03/15/18] Multivitamins,Therapeutic [Multivitamin] 1 tab PO DAILY 07/05/14 [History Confirmed 03/15/18] Simvastatin [Zocor] 10 mg PO QHS 07/05/14 [History Confirmed 03/15/18] Timolol Maleate [Timoptic-XE 0.5%] 1 drp EACH EYE DAILY 07/05/14 [History Confirmed 03/15/18] Potassium Chloride [K-Dur] 20 meq PO DAILY 06/29/15 [History Confirmed 03/15/18] Saxagliptin HCl [Onglyza] 5 mg PO DAILY 07/01/17 [History Confirmed 03/15/18] Solifenacin Succinate [Vesicare] 10 mg PO DAILY 07/01/17 [History Confirmed 03/15/18] Ascorbic Acid [Vitamin C] 500 mg PO DAILY@0800 09/09/17 [History Confirmed 03/15/18] Mirabegron [Myrbetriq] 50 mg PO DAILY 11/23/17 [History Confirmed 03/15/18] Furosemide [Lasix] 20 mg PO DAILY 02/26/18 [History Confirmed 03/15/18] Ibuprofen 200 mg PO PRN PRN 02/26/18 [History Confirmed 03/15/18] Metformin HCl [Glucophage] 1,000 mg PO BID 02/26/18 [History Confirmed 03/15/18] Methenamine Hippurate [Hiprex] 1 gm PO BID #60 tab 03/01/18 [Rx Confirmed 03/15/18] PFSH Medical History Open wound of left thigh (Chronic) Incompetent urethral closure mechanism (Chronic) Neurogenic bladder (Chronic) Stage II pressure ulcer (Chronic) Complicated urinary tract infection (Acute) Hematuria (Acute) Diabetes mellitus type 2 in nonobese (Chronic) Hypertension (Chronic) Gout (Chronic) Pressure ulcer of left buttock, stage 3 (Chronic) Pressure ulcer of left buttock, stage 2 (Resolved) Diabetes mellitus (Chronic) Pressure ulcer of right buttock, stage 3 (Chronic) Diabetic neuropathy, type II diabetes mellitus (Chronic) Malnutrition (Chronic) Back pain (Chronic) Arthritis (Chronic) chronic osteomyelitis left ischial area (Chronic) Pressure sore of left ischium, stage 4 (Chronic) 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 Patient has a fairly complex medical history. Was recently in the hospital. Patient states that she has frequent air coming out of her rectal pouch. She has a Moss's procedure done to her. In addition she has had rectal fissure pain in the past ROS General General: Yes weight change; no appetite, fatigue, colon cancer, breast cancer or weakness HEENT HEENT: No difficulty swallowing, eye injury, eye surgery, swollen glands or hoarseness Endo Endocrine: Yes diabetes mellitus; no thyroid disease, thyroid cancer, Hair loss, heat intolerance or cold intolerance Skin Skin: No rash or changing moles Breast Breast: No left breast lump, right breast lump, nipple discharge, breast pain, abnormal mammogram, abnormal US or breast enlargement Musc Musculoskeletal: Yes back problems, arthritis and gout; no rheumatoid arthritis or joint pain Cardio Cardiovascular: Yes high blood pressure and atrial fibrillation; no murmur, pacemaker, heart disease, heart attack, heart stent, palpitations, shortness of breat with exertion or chest pain Psych Psychiatric: No depression, anxiety or hearing voices Resp Respiratory: No shortness of breath, No sleep apnea, No cough, No COPD, No asthma, No emphysema, No wheezing Gastro Gastrointestinal: No abdominal pain, No nausea or vomiting, No diarrhea, No constipation, No blood in stool, No acid reflux, No hemorrhoids, No ulcers, No gallbladder problem, No black,tarry stools Jose Angel Hematologic: Yes blood clots, No blood thinners, No blood disorders, No bleeding, No anemia Neuro Neurologic: Yes numbness, Yes tingling, No system reviewed and no additional complaints, except as docu, No as per HPI, No abnormal walking, No abnormal hearing, No abnormal movements, No abnormal speech, No behavioral changes, No burning sensations, No confusion, No seizure-like activity, No unsteadiness, No dizziness, No localized weakness, No frequent falls, No headache(s), No lack of coordination, No loss of vision, No memory loss, No other visual disturbances, No radiating pain, No restless legs, No sensory deficit, No fainting, No tremor(s), No weakness, No other Exam Chest Breast Palpation: No nipple discharge Cardio Heart Sounds: no murmurs GI Other: No obvious sign of a rectal fissure is identified. I do not see any signs of rectal prolapse. There is no signs of cellulitis or undrained abscess Assessment AND Plan Problems 1. Anal pain K62.89 Plan I think the best thing we can do for her do a Gastrografin enema from her rectum to identify if there is any signs of abnormalities seen. I will follow her back up after the test is complete Coding Level of Care Code Off vis,est,level 2 Diagnoses Anal pain K62.89 03/23/18 1255 <Electronically signed by Javid Dennison MD> Date [facility]: Date (if applicable) CC: Power Esquivel MD BARIUM ENEMA NO AIR Observed: 03/22/2018 Status: F Source: [place] CONT 9:14 AM [facility] [place] [facility] Imaging Services [address] [place] [id number] Barium Enema No Air Cont MR#: [id number] Acct: [id number] Name: VAZQUEZ ZAMBRANO Rep #: [id number] : 1950 F 68 From: Kyle Suresh MD PCP: Power Esquivel MD Status: REG CLI Study: Barium Enema No Air Cont Date of Exam: 03/22/18 Exam# [id number] Ordering Dr: Javid Dennison MD STUDY: GASTROGRAFIN ENEMA. REASON FOR EXAM: Female, 68 years old. Patient has a stoma. A Gastrografin enema through rectum was performed. FLUOROSCOPY TIME (if supplied): (0:57) minutes/seconds TECHNIQUE: Gastrografin was introduced retrograde through the rectum. Attempt at enema was performed. The patient was unable to keep the contrast. COMPARISON: None. FINDINGS: A geriatric aide film was obtained. A large amount of fecal material is seen throughout the colon. The rectum and the distal sigmoid colon was opacified. The patient was unable to tolerate any further examination. No fistula is seen. RAD/Barium Enema No Air Cont IMPRESSION: Limited study through the rectum. Large amount of fecal material is seen throughout the colon. Electronically Signed: Kyle Suresh MD at 15:57 EST Tel [phone], Service support , CC: Power Esquivel MD; Javid Dennison MD Fiber Heel Piece Shaper: Signed CBC W/DIFF, AUTOMATED Collected: 03/10/2018 Status: F Source: [place] 2:25 PM [facility] [place] [facility] TYPE CODE TESTS RESULT OUT OF RANGE REFERENCE UNITS LAB L100.1000 4.4-11.0 K/mm3 High WBC 12.2 LAB L100.1200 4.2-5.4 M/mm3 Normal RBC 4.48 LAB L100.1300 12.0-15.0 g/dl Low HGB 11.8 LAB L100.1400 37-47 % Normal HCT 38.8 LAB L100.1500 81-99 fL Normal MCV 86.6 LAB L100.1600 27.0-32.0 pg Low MCH 26.3 LAB L100.1700 32-36 g/gl Low MCHC 30.4 LAB L100.1810 11.6-14.6 % High RDW CV 16.9 LAB L100.1820 35.1-43.9 fl High RDW SD 53.1 LAB L100.1900 150-450 K/mm3 Normal PLT 387 LAB L100.2000 6.2-12.0 fl Normal MPV 9.7 LAB L100.2100 47-70 % High NEUT% 79.3 LAB L100.2200 19-41 % Low LY% 13.5 LAB L100.2300 0-10 % Normal MONO% 5.0 LAB L100.2400 0-5 % Normal EO% 1.8 LAB L100.2500 0-1 % Normal BASO% 0.2 LAB L100.2550 0.0-0.9 % Normal IM GRAN % 0.200 Result Comment: IG% - Immature Granulocytes (promyelocytes, myelocytes and metamyelocytes) > 1% indicates that a LEFT SHIFT is Present. LAB L100.2620 2.0-7.7 X10 3/uL High Absolute Neut 9.6 LAB L100.2720 0.83-4.51 X10 3/ul Normal Absolute Lymph 1.64 Performed By: #### L100.0100 #### [facility] [address] [place], [place], [id number] RETIC PANEL Collected: 03/10/2018 Status: F Source: [place] 2:25 PM [facility] [place] [facility] TYPE CODE TESTS RESULT OUT OF RANGE REFERENCE UNITS LAB L101.0000 0.5-1.5 % High RETIC 1.79 LAB L101.0060 3.00-15.90 % IM Normal RET FRACTION 9.80 LAB L101.0090 30-35 pg Low RET-HE 27.8 LAB L101.0110 1.0-7.9 % Normal IPF 1.3 Result Comment: Low PLT + Low IPF suggest a bone marrow production disorder Low PLT + high IPF suggests peripheral destruction (e.g.ITP, TTP, HIT, DIC, autoimmune) or bone marrow recovery Trending of serial IPF measurements is recommended when evaluating for bone marrow respones Value above normal range indicates an increase in RBC cellular response from bone marrow. Performed By: #### L100.9950, L500.2500, L501.2300, L501.5200, L503.6075, L503.6150, L503.6550, L506.1000, L509.1000 #### [facility] [address] [place], [place], [id number] BASIC METABOLIC Collected: 03/10/2018 Status: F Source: [place] PROFILE (BMP) 2:25 PM [facility] [place] [facility] TYPE CODE TESTS RESULT OUT OF RANGE REFERENCE UNITS LAB L501.0100 74-106 mg/dL High GLU 136 Result Comment: Fasting Glucose result greater than or equal to 126 mg/dL suggests DIABETES MELLITUS per A.D.A. criteria. Please note revised GLUCOSE reference range effective 2017. LAB L501.1000 7-18 mg/dL High BUN 46 LAB L501.1100 0.55-1.02 mg/dL Normal CREAT,SERUM 0.94 Result Comment: The validity of the calculated GFR AND GFRAA in patients over 70 years has not been determined. Clinical correlation is essential. LAB L501.1110 >60 mL/min Normal EST GFR 63 Result Comment: Non- GFR Calc LAB L501.1115 >60 mL/min Normal EST GFR - AA 76 Result Comment: GFR Calc LAB L501.1300 10-20 RATIO High BUN/CRE 48.8 LAB L501.2200 8.5-10.1 mg/dL CA Normal 9.3 LAB L501.5300 136-145 mmol/L NA Normal 140 LAB L501.5600 3.5-5.1 mmol/L K Normal 4.4 LAB L501.5900 98-107 mmol/L CL Normal 105 LAB L501.6100 21.0-32.0 mmol/L Normal CO2 22.0 LAB L501.6200 5-15 Normal GAP 13 Performed By: #### L100.9950, L500.2500, L501.2300, L501.5200, L503.6075, L503.6150, L503.6550, L506.1000, L509.1000 #### [facility] [address] [place], [address] PHOSPHORUS Collected: 03/10/2018 Status: F Source: [place] 2:25 PM [facility] [place] [facility] TYPE CODE TESTS RESULT OUT OF RANGE REFERENCE UNITS LAB L501.2300 2.5-4.9 mg/dL Normal PHOS 3.4 Performed By: #### L100.9950, L500.2500, L501.2300, L501.5200, L503.6075, L503.6150, L503.6550, L506.1000, L509.1000 #### [facility] [address] [place], [place], [address] MAGNESIUM Collected: 03/10/2018 Status: F Source: [place] 2:25 PM [facility] [place] [facility] TYPE CODE TESTS RESULT OUT OF RANGE REFERENCE UNITS LAB L501.5200 1.6-2.6 mg/dL Normal MG 1.9 Performed By: #### L100.9950, L500.2500, L501.2300, L501.5200, L503.6075, L503.6150, L503.6550, L506.1000, L509.1000 #### [facility] [address] [place], [place], [id number] IRON BINDING Collected: 03/10/2018 Status: F Source: [place] [facility],TOTAL 2:25 PM [facility] [place] [facility] TYPE CODE TESTS RESULT OUT OF RANGE REFERENCE UNITS LAB L503.6075 250-450 ug/dL Normal TIBC 332 Performed By: #### L100.9950, L500.2500, L501.2300, L501.5200, L503.6075, L503.6150, L503.6550, L506.1000, L509.1000 #### [facility] [address] [place], [place], [id number] IRON Collected: 03/10/2018 Status: F Source: [place] 2:25 PM [facility] [place] TYPE CODE TESTS RESULT OUT OF RANGE REFERENCE UNITS LAB L503.6150 50-170 ug/dL Low IRON 33 Performed By: #### L100.9950, L500.2500, L501.2300, L501.5200, L503.6075, L503.6150, L503.6550, L506.1000, L509.1000 #### [facility] [address] [place], [place], [id number] FERRITIN Collected: 03/10/2018 Status: F Source: [place] 2:25 PM [facility] [place] TYPE CODE TESTS RESULT OUT OF RANGE REFERENCE UNITS LAB L503.6550 8-252 ng/mL Normal FERRITIN 145 Performed By: #### L100.9950, L500.2500, L501.2300, L501.5200, L503.6075, L503.6150, L503.6550, L506.1000, L509.1000 #### [facility] [address] [place], [place], [phone] (074) VITAMIN D,25 HYDROXY Collected: 03/10/2018 Status: F Source: [place] 2:25 PM [facility] [place] CODE TESTS RESULT OUT OF REFERENCE UNITS RANGE LAB L506.1000 29.95-100.01 ng/mL Low Vitamin D 28.5 25-OH Result Comment: Vitamin D 25(OH) Status Range Deficiency <20 ng/mL (50nmol/L) Insuffciency 20 - 30 ng/mL (50 - 75 nmol/L) Sufficiency 30 - 100 ng/mL (75 - 250 nmol/L) Toxicity >100 ng/mL (>250 nmol/L) Performed By: #### L100.9950, L500.2500, L501.2300, L501.5200, L503.6075, L503.6150, L503.6550, L506.1000, L509.1000 #### [facility] [address] [place], [address] PTHIN Collected: 03/10/2018 Status: F Source: [place] 2:25 PM [facility] [place] TYPE CODE TESTS RESULT OUT OF RANGE REFERENCE UNITS LAB L509.1000 18.4-80.1 pg/mL Normal PTHIN 32.1 Performed By: #### L100.9950, L500.2500, L501.2300, L501.5200, L503.6075, L503.6150, L503.6550, L506.1000, L509.1000 #### [facility] [address] [place], [place], [id number] CALCIUM IONIZED Collected: 03/10/2018 Status: F Source: [place] 2:25 PM [facility] [place] TYPE CODE TESTS RESULT OUT OF RANGE REFERENCE UNITS LAB L3100.9600 4.5-5.6 mg/dL Normal IONIZED CA 5.5 Result Comment: Performed at: [address] [id number] Duct Layer Helper: Kingston William PhD, Phone: [phone] Performed By: #### L3100.9600 #### [facility] (refer to report for specific site) refer to report for address and phone number DISCHARGE SUMMARY Observed: 03/01/2018 Status: F Source: [place] 4:00 PM [facility] [place] [facility] Medical Records Department [address] [place] [address] Discharge Summary 03/01/18 1407 MR#: [id number] Acct: [id number] Name: VAZQUEZ ZAMBRANO Rep #: [id number] : 1950 68 From: Aleshia Chapin MD PCP: Power Esquivel MD Status: DIS IN Y Location: FL3 TI177-9 Discharge Date and Diagnosis Date of Admission: 02/26/18 Date of Discharge: 03/01/18 - Primary Discharge Diagnosis Active and Suspected Problems Complicated urinary tract infection (Acute) Hematuria (Acute) - Secondary Discharge Diagnosis Chronic Problems Open wound of left thigh (Chronic) traumatic skin tear posterior thigh Incompetent urethral closure mechanism (Chronic) Neurogenic bladder (Chronic) Stage II pressure ulcer (Chronic) Chronic suprapubic catheter (Chronic) Diabetes mellitus type 2 in nonobese (Chronic) Hypertension (Chronic) Gout (Chronic) with arthropathy Pressure ulcer of left buttock, stage 3 (Chronic) left lower buttock/upper thigh area Diabetes mellitus (Chronic) Pressure ulcer of right buttock, stage 3 (Chronic) Diabetic neuropathy, type II diabetes mellitus (Chronic) Malnutrition (Chronic) Back pain (Chronic) Arthritis (Chronic) 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 She was admitted through the ED on 02/26/2018 with a complaint of hematuria which started the day before with associated dysuria and suprapubic tenderness after she had had her chronic Roach catheter change the day before. She had no associated fever or chills. She had been taking Keflex prior to presentation and had a UA which showed Serratia which was sensitive to only IV tobramycin and gentamicin. She was therefore admitted to be administered these IV antibiotics as treatment for complete a UTI. Patient was started on IV tobramycin and ID was consulted. Cultures were negative. ID reviewed patient and thought it was more of her chronic colonization I do not think she requires antibiotics. Patient was discharged on 03/01/2018 and referred to general surgery on account of recurrent anal fissures. Per ID, was started on Hiprex 1 g twice daily for prevention of UTI, to continue upon discharge. She is follow-up with her primary care doctor in 1 week and referred to general surgeon (Dr Dennison). Patient seen and examined prior to discharge. She had no complaints and felt well. She denied any fever chills, any cough or chest pain, shortness of breath, abdominal pain, diarrhea or vomiting. 12 point review of systems otherwise negative. Labs and vitals reviewed. o/e: Vital Signs Height 5 ft 3 in Weight: 158 lb 7.986 oz Weight in Pounds 158.5 lbs Pulse Ox 97 General: Alert, Oriented x3, Cooperative, No apparent distress HEENT: Atraumatic, PERRLA, EOMI, Normocephalic Oral: Moist Mucosa Neck: Supple, No JVD, Negative Carotid Bruits, Negative Hepatojugular Reflux, No Nodes Lungs: Clear to auscultation, Normal air movement, No rhonchi, No wheeze, No rales Cardiovascular: Regular rate, Regular Rhythm, Normal S1, Normal S2, No murmurs Abdomen: Bowel Sounds Present, Soft, Non Tender, Non-Distended, No Hepato-splenomegaly, - - colostomy bag intact, filled with moderate amounts of stool. filled Extremities: No clubbing, No cyanosis, - - minimal bipedal pitting edema; Skin: No rashes, No breakdown Musculoskeletal: No Tenderness to Palpation of Joints or Extremities Lymphatic: No Cervical, Supraclavicular, or Inguinal Adenopathy Neurological: Cranial nerves II-XII grossly intact, - - power 2/5 in LEs due to paraplegia Psych/Mental Status: Normal Affect, Appropriate, Alert and oriented to time, place, person, mood and affect Plan as discussed above. - Physical Exam Vital Signs Temp Pulse Resp BP Pulse Ox 98.0 F 101 H 18 129/74 H 96 03/01/18 09:10 03/01/18 09:10 03/01/18 09:10 03/01/18 09:10 03/01/18 11:34 Oxygen Delivery Method Room Air Weight: 158 lb 7.986 oz Body Mass Index (BMI) 28.0 Finger Stick Blood Glucose 109 Intake and Output for Last 24 Hours Intake Total 1729 / 1729 4153 / 4153 1496 / 1496 Output Total 3125 / 3125 3350 / 3350 1400 / 1400 Balance -1396 / -1396 803 / 803 96 / 96 Microbiology Past 72 Hours 02/26/18 13:10 Blood Culture - Preliminary Blood Culture (Wb) - No Site/Description Given No growth in 48 hours. Laboratory Tests Past 24 Hrs POC Glucose POC Glucose 179 H 147 H 174 H POC Glucose 167 H Discharge Diet: Low fat/ Low Cholesterol Weight Bearing Status: Weight bearing as tolerated Call your doctor if you observe: Fever of 101 or Higher Home Medications: Medications to take at Discharge Allopurinol [Zyloprim] 200 mg PO DAILY 07/05/14 Latanoprost 0.005% [Xalatan Opthalmic] 1 drop EACH EYE QHS 07/05/14 Losartan Potassium [Cozaar] 25 mg PO DAILY 07/05/14 Multivitamins,Therapeutic [Multivitamin] 1 tablet PO DAILY 07/05/14 Simvastatin [Zocor] 10 mg PO QHS 07/05/14 Timolol Maleate [Timoptic-XE 0.5%] 1 drop EACH EYE DAILY 07/05/14 Potassium Chloride [K-Dur] 20 meq PO DAILY 06/29/15 Saxagliptin HCl [Onglyza] 5 mg PO DAILY 07/01/17 Solifenacin Succinate [Vesicare] 10 mg PO DAILY 07/01/17 Ascorbic Acid [Vitamin C] 500 mg PO DAILY@0800 09/09/17 Mirabegron [Myrbetriq] 50 mg PO DAILY 11/23/17 Furosemide [Lasix] 20 mg PO DAILY 02/26/18 Ibuprofen 200 mg PO PRN PRN 02/26/18 Metformin HCl [Glucophage] 1,000 mg PO BID 02/26/18 Methenamine Hippurate [Hiprex] 1 gm PO BID #60 tablet 03/01/18 Following Prescrptions Were Given to Patient: Methenamine Hippurate [Hiprex] 1 gm PO BID #60 tablet Primary Care Physician: Jones Esquivel MD [Primary Care Provider] - Please follow up with your Primary Care Physician in: one week Please Follow Up With: Javid Dennison MD When: 1-2 weeks o/a of recurrent anal fissures. Call office for appt Disposition: Home with Home Health Minutes spent on discharge:: 40 Patient Condition:: Stable Medical Necessity - Tobacco Use Smoking Status: Never smoker Tobacco Use: Non-smoker Meaningful Use Info Meaningful Use Diagnoses (Choose all that apply): None applicable Code Visit Inpatient E AND M: 35036 Disch Hosp 03/01/18 1600 <Electronically signed by Aleshia Chapin MD> Date Aleshia Chapin MD Cosigner Signature (if applicable): Date CC: Power Esquivel MD; Aleshia Chapin MD Signed DISCHARGE INSTRUCTION Observed: 03/01/2018 Status: F Source: [place] 2:06 PM [facility] [place] [facility] Medical Records Department [address] [place] [address] Instructions for Home/Discharge Instructions 03/01/18 1405 MR#: [id number] Acct: [id number] Name: VAZQUEZ ZAMBRANO Rep #: [id number] : 1950 68 From: Aleshia Chapin MD PCP: Power Esquivel MD Status: ADM IN - Discharge Diagnoses Current Active Problems: Current Active and Chronic Problems Complicated urinary tract infection (Acute) Hematuria (Acute) Reason(s) for Visit for Discharge Instructions: UTI You will use the following diet at home:: Cardiac Your food should be the consistency of: Regular Your liquids should be the consistency of: Regular/Thin Weight Bearing Status: Weight bearing as tolerated Call your doctor if you observe: Fever of 101 or Higher Allergies/Adverse Reactions: Allergies No Known Allergies Allergy (Verified 02/26/18 12:12) Medications to take at Discharge Allopurinol [Zyloprim] 200 mg PO DAILY 07/05/14 Latanoprost 0.005% [Xalatan Opthalmic] 1 drop EACH EYE QHS 07/05/14 Losartan Potassium [Cozaar] 25 mg PO DAILY 07/05/14 Multivitamins,Therapeutic [Multivitamin] 1 tablet PO DAILY 07/05/14 Simvastatin [Zocor] 10 mg PO QHS 07/05/14 Timolol Maleate [Timoptic-XE 0.5%] 1 drop EACH EYE DAILY 07/05/14 Potassium Chloride [K-Dur] 20 meq PO DAILY 06/29/15 Saxagliptin HCl [Onglyza] 5 mg PO DAILY 07/01/17 Solifenacin Succinate [Vesicare] 10 mg PO DAILY 07/01/17 Ascorbic Acid [Vitamin C] 500 mg PO DAILY@0800 09/09/17 Mirabegron [Myrbetriq] 50 mg PO DAILY 11/23/17 Furosemide [Lasix] 20 mg PO DAILY 02/26/18 Ibuprofen 200 mg PO PRN PRN 02/26/18 Metformin HCl [Glucophage] 1,000 mg PO BID 02/26/18 Methenamine Hippurate [Hiprex] 1 gm PO BID #60 tablet 03/01/18 The following prescriptions were given: Methenamine Hippurate [Hiprex] 1 gm PO BID #60 tablet Primary Care Physician: Jones Esquivel MD [Primary Care Provider] - Please follow up with your Primary Care Physician in: one week Test Results: Test results from this visit will be discussed in further detail at your follow-up appointment, if applicable. Please Follow Up With: Javid Dennison MD When: 1-2 weeks o/a of recurrent anal fissures. Call office for appt Proposed Discharge Date: 03/01/18 03/01/18 2388 <Electronically signed by Aleshia Chapin MD> Date Aleshia Chapin MD CC: Power Esquivel MD; Lavon Joseph MD CONSULTATION Observed: 03/01/2018 Status: F Source: [place] 1:38 PM [facility] [place] [facility] Medical Records Department [address] [place] [address] Consultation 03/01/18 1330 MR#: [id number] Acct: [id number] Name: VAZQUEZ ZAMBRANO Rep #: [id number] : 1950 68 From: Lvaon Joseph MD PCP: Power Esquivel MD Status: ADM IN Y Location: [facility] UC260-1 Problem List (1) Hematuria Status: Acute Qualifiers: Hematuria type: unspecified type Qualified Code(s): R31.9 - Hematuria, unspecified Reason for Consult: uti Consulted by: Dr. Frost History of Present Illness: The patient is a 68 year old F with spinal stenosis, neurogenic bladder, chronic roach, and rectal prolapse who was sent to the hospital due to growth of CRE Serratia from ucx on 02/22. Roach is changed qmonthly. Reports recurrent anal fissure, most recent episode about a week ago for 3 days of malone drainage from her rectum. Saw PCP Dr. Helton, ucx was sent. Denies any abd pain, urine changes, fever, or not feeling well. Does have some fatigue. Has been on suppressive keflex for over a year. Ucx came back resistant to most abx, sent to the hospital, given gent and then tobra. Still feeling fine. No confusion. No fever here. Full ROS performed and neg except as noted above. - Medical History Past Medical History (Chronic Problems): Chronic Problems Open wound of left thigh (Chronic) traumatic skin tear posterior thigh Incompetent urethral closure mechanism (Chronic) Neurogenic bladder (Chronic) Stage II pressure ulcer (Chronic) Chronic suprapubic catheter (Chronic) Diabetes mellitus type 2 in nonobese (Chronic) Hypertension (Chronic) Gout (Chronic) with arthropathy Pressure ulcer of left buttock, stage 3 (Chronic) left lower buttock/upper thigh area Diabetes mellitus (Chronic) Pressure ulcer of right buttock, stage 3 (Chronic) Diabetic neuropathy, type II diabetes mellitus (Chronic) Malnutrition (Chronic) Back pain (Chronic) Arthritis (Chronic) 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 significance to followup Anemia of chronic disease (Chronic) Physical deconditioning (Chronic) Dupuytren's contracture of right hand (Chronic) Spinal stenosis (Chronic) Hyperlipidemia (Chronic) RP (rectal prolapse) (Chronic) Allergies/Adverse Reactions: Allergies No Known Allergies Allergy (Verified 02/26/18 12:12) Home Medications: Ambulatory Orders Medication Instructions Recorded Allopurinol [Zyloprim] 200 mg PO DAILY 07/05/14 - Social History Tobacco Use: non-smoker Vital Signs Temp Pulse Resp BP Pulse Ox 98.0 F 101 H 18 129/74 H 96 03/01/18 09:10 03/01/18 09:10 03/01/18 09:10 03/01/18 09:10 03/01/18 11:34 Oxygen Delivery Method Room Air Weight: 71.894 kg Body Mass Index (BMI) 28.0 Finger Stick Blood Glucose 109 Microbiology Past 72 Hours 02/26/18 13:10 Blood Culture - Preliminary Blood Culture (Wb) - No Site/Description Given No growth in 48 hours. Laboratory Tests Past 24 Hrs - Other Studies Radiology: [] reviewed Other Studies: [] Route of nutrition/ use of supplements: [] Nutritional Intake: [] IV Site: [] Roach Catheter: [] - Physical Exam General: Alert, Oriented x3, Cooperative, No apparent distress HEENT: Atraumatic, PERRLA, EOMI Neck: Supple, No Nodes Lungs: Clear to auscultation, Normal air movement Cardiovascular: Regular rate, Regular Rhythm Abdomen: Soft, Non Tender, Non-Distended Extremities: No edema Skin: No rashes IV Site: Peripheral, without redness Musculoskeletal: No Tenderness to Palpation of Joints or Extremities Neurological: Cranial nerves II-XII grossly intact - Assessment/Plan Antibiotics: [] Assessment/Plan: [] Active and Suspected Problems Complicated urinary tract infection (Acute) Hematuria (Acute) CRE serratia bacteruria - No confusion, no fever, normal wbc. Has chronic roach and has been asymptomatic. No abd pain on exam. Reports ucx was sent when she saw her PCP due to anal fissure and some rectal drainage. Given presence of roach and a very resistant bacteria colonizing urine, this makes it even more important to save the few abx we have left and use them only for true symptomatic infection. Will stop tobra. Ok for discharge from my perspective. 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 Could also benefit from Hiprex 1gm bid for prevention of uti instead of keflex. Will follow, thank you, d/w primary team. 03/01/18 1336 <Electronically signed by Lavon Joseph MD> Date Lavon Joseph MD Cosigner Signature (if applicable): Date CC: Power Esquivel MD; Lavon Joseph MD Signed BEDSIDE GLUCOSE Collected: 03/01/2018 Status: F Source: [place] 11:46 AM [facility] [place] TYPE CODE TESTS RESULT OUT OF REFERENCE UNITS RANGE LAB L501.080 70-110 mg/dL High BEDSIDE GLU 179 Result Comment: MANAGEMENT OF PATIENT CARE PER NURSING PROTOCOL Performed By: #### L501.080 #### [facility] Point of Care [address] [place], [place] [id number] BEDSIDE GLUCOSE Collected: 03/01/2018 Status: F Source: [place] 6:44 AM [facility] [place] TYPE CODE TESTS RESULT OUT OF REFERENCE UNITS RANGE LAB L501.080 70-110 mg/dL High BEDSIDE GLU 147 Result Comment: MANAGEMENT OF PATIENT CARE PER NURSING PROTOCOL Performed By: #### L501.080 #### [facility] Point of Care [address] [place] [address] CBC W/DIFF, AUTOMATED Collected: 03/01/2018 Status: F Source: [place] 3:50 AM [facility] [place] TYPE CODE TESTS RESULT OUT OF RANGE REFERENCE UNITS LAB L100.1000 4.4-11.0 K/mm3 Normal WBC 6.7 LAB L100.1200 4.2-5.4 M/mm3 Low RBC 3.73 LAB L100.1300 12.0-15.0 g/dl Low HGB 9.9 LAB L100.1400 37-47 % Low HCT 31.8 LAB L100.1500 81-99 fL Normal MCV 85.3 LAB L100.1600 27.0-32.0 pg Low MCH 26.5 LAB L100.1700 32-36 g/gl Low MCHC 31.1 LAB L100.1810 11.6-14.6 % High RDW CV 16.5 LAB L100.1820 35.1-43.9 fl High RDW SD 50.3 LAB L100.1900 150-450 K/mm3 Normal PLT 252 LAB L100.2000 6.2-12.0 fl Normal MPV 9.1 LAB L100.2100 47-70 % Normal NEUT% 61.8 LAB L100.2200 19-41 % Normal LY% 22.6 LAB L100.2300 0-10 % Normal MONO% 10.0 LAB L100.2400 0-5 % Normal EO% 4.3 LAB L100.2500 0-1 % Normal BASO% 0.4 LAB L100.2550 0.0-0.9 % Normal IM GRAN % 0.900 Result Comment: IG% - Immature Granulocytes (promyelocytes, myelocytes and metamyelocytes) > 1% indicates that a LEFT SHIFT is Present. LAB L100.2620 2.0-7.7 X10 3/uL Normal Absolute Neut 4.2 LAB L100.2720 0.83-4.51 X10 3/ul Normal Absolute Lymph 1.52 Performed By: #### L100.0100 #### [facility] [address] [place], [place], [id number] BASIC METABOLIC Collected: 03/01/2018 Status: F Source: [place]AH PROFILE (BMP) 3:50 AM [facility] [place] TYPE CODE TESTS RESULT OUT OF RANGE REFERENCE UNITS LAB L501.0100 74-106 mg/dL High GLU 126 Result Comment: Fasting Glucose result greater than or equal to 126 mg/dL suggests DIABETES MELLITUS per A.D.A. criteria. Please note revised GLUCOSE reference range effective 2017. LAB L501.1000 7-18 mg/dL High BUN 23 LAB L501.1100 0.55-1.02 mg/dL Normal CREAT,SERUM 0.65 Result Comment: The validity of the calculated GFR AND GFRAA in patients over 70 years has not been determined. Clinical correlation is essential. LAB L501.1110 >60 mL/min Normal EST GFR 96 Result Comment: Non- GFR Calc LAB L501.1115 >60 mL/min Normal EST GFR - AA 116 Result Comment: GFR Calc LAB L501.1255 ml/min Normal Estimated CRCL 43.92 LAB L501.1300 10-20 RATIO High BUN/CRE 35.4 LAB L501.2200 8.5-10 mg/dL Low .1 CA 7.8 LAB L501.5300 136-14 mmol/L Normal 5 NA 140 LAB L501.5600 3.5-5. mmol/L Normal 1 K 4.3 LAB L501.5900 98-107 mmol/L Normal CL 107 LAB L501.6100 21.0-3 mmol/L Normal 2.0 CO2 25.0 LAB L501.6200 5-15 Normal GAP 8 Performed By: #### L500.2500 #### [facility] [address] [place], [place], [address] TOBRAMYCIN, RANDOM Collected: 03/01/2018 Status: F Source: [place] 3:50 AM [facility] [place] Order Comment: Comments: DRAW RANDOM LEVEL 12 HOURS AFTER 16:00 DOSE TYPE CODE TESTS RESULT OUT OF RANGE REFERENCE UNITS LAB L501.8950 ug/mL Normal 2.40 TOBRA,RANDOM Result Comment: Random level based on once daily dose of antibiotic. Please contact Pharmacy Services (#[phone]) for interpretation of results. This result does not represent either a peak or a trough level for this drug. Performed By: #### L501.8950 #### [facility] [address] [place], [place], [id number] BEDSIDE GLUCOSE Collected: 02/28/2018 Status: F Source: [place] 9:36 PM [facility] [place] TYPE CODE TESTS RESULT OUT OF REFERENCE UNITS RANGE LAB L501.080 70-110 mg/dL High BEDSIDE GLU 174 Result Comment: MANAGEMENT OF PATIENT CARE PER NURSING PROTOCOL Performed By: #### L501.080 #### [facility] Point of Care [address] [place], [place] [id number] BEDSIDE GLUCOSE Collected: 02/28/2018 Status: F Source: [place] 3:57 PM [facility] [place] TYPE CODE TESTS RESULT OUT OF REFERENCE UNITS RANGE LAB L501.080 70-110 mg/dL High BEDSIDE GLU 167 Result Comment: MANAGEMENT OF PATIENT CARE PER NURSING PROTOCOL Performed By: #### L501.080 #### [facility] Point of Care [address] [place], [place] [id number] BEDSIDE GLUCOSE Collected: 02/28/2018 Status: F Source: [place]AH 11:49 AM [facility] [place] TYPE CODE TESTS RESULT OUT OF REFERENCE UNITS RANGE LAB L501.080 70-110 mg/dL High BEDSIDE GLU 174 Result Comment: MANAGEMENT OF PATIENT CARE PER NURSING PROTOCOL Performed By: #### L501.080 #### [facility] Point of Care [address] [place], [place] [id number] BEDSIDE GLUCOSE Collected: 02/28/2018 Status: F Source: [place] 6:27 AM [facility] [place] TYPE CODE TESTS RESULT OUT OF REFERENCE UNITS RANGE LAB L501.080 70-110 mg/dL High BEDSIDE GLU 116 Result Comment: MANAGEMENT OF PATIENT CARE PER NURSING PROTOCOL Performed By: #### L501.080 #### [facility] Point of Care [address] [place] [address] CBC W/DIFF, AUTOMATED Collected: 02/28/2018 Status: F Source: [place] 6:13 AM [facility] [place] TYPE CODE TESTS RESULT OUT OF RANGE REFERENCE UNITS LAB L100.1000 4.4-11.0 K/mm3 Normal WBC 6.1 LAB L100.1200 4.2-5.4 M/mm3 Low RBC 3.91 LAB L100.1300 12.0-15.0 g/dl Low HGB 10.2 LAB L100.1400 37-47 % Low HCT 33.3 LAB L100.1500 81-99 fL Normal MCV 85.2 LAB L100.1600 27.0-32.0 pg Low MCH 26.1 LAB L100.1700 32-36 g/gl Low MCHC 30.6 LAB L100.1810 11.6-14.6 % High RDW CV 16.7 LAB L100.1820 35.1-43.9 fl High RDW SD 51.0 LAB L100.1900 150-450 K/mm3 Normal PLT 238 LAB L100.2000 6.2-12.0 fl Normal MPV 9.1 LAB L100.2100 47-70 % Normal NEUT% 66.8 LAB L100.2200 19-41 % Normal LY% 21.0 LAB L100.2300 0-10 % Normal MONO% 8.6 LAB L100.2400 0-5 % Normal EO% 3.1 LAB L100.2500 0-1 % Normal BASO% 0.2 LAB L100.2550 0.0-0.9 % Normal IM GRAN % 0.300 Result Comment: IG% - Immature Granulocytes (promyelocytes, myelocytes and metamyelocytes) > 1% indicates that a LEFT SHIFT is Present. LAB L100.2620 2.0-7.7 X10 3/uL Normal Absolute Neut 4.1 LAB L100.2720 0.83-4.51 X10 3/ul Normal Absolute Lymph 1.29 Performed By: #### L100.0100 #### [facility] [address] [place], [address] BASIC METABOLIC Collected: 02/28/2018 Status: F Source: [place] PROFILE ([facility]) 6:13 AM [facility] [place] TYPE CODE TESTS RESULT OUT OF RANGE REFERENCE UNITS LAB L501.0100 74-106 mg/dL High GLU 112 Result Comment: Fasting Glucose result from 100 to 125 mg/dL suggests IMPAIRED HOMEOSTASIS per A.D.A. criteria. Please note revised GLUCOSE reference range effective 2017. LAB L501.1000 7-18 mg/dL High BUN 23 LAB L501.1100 0.55-1.02 mg/dL Normal CREAT,SERUM 0.61 Result Comment: The validity of the calculated GFR AND GFRAA in patients over 70 years has not been determined. Clinical correlation is essential. LAB L501.1110 >60 mL/min Normal EST GFR 103 Result Comment: Non- GFR Calc LAB L501.1115 >60 mL/min Normal EST GFR - AA 124 Result Comment: GFR Calc LAB L501.1255 ml/min Normal Estimated CRCL 43.92 LAB L501.1300 10-20 RATIO High BUN/CRE 37.5 LAB L501.2200 8.5-10 mg/dL Low .1 CA 7.7 LAB L501.5300 136-14 mmol/L Normal 5 NA 141 LAB L501.5600 3.5-5. mmol/L Normal 1 K 4.4 LAB L501.5900 98-107 mmol/L Normal CL 107 LAB L501.6100 21.0-3 mmol/L Normal 2.0 CO2 24.0 LAB L501.6200 5-15 Normal GAP 10 Performed By: #### L500.2500 #### [facility] [address] [place], [address] TOBRAMYCIN, RANDOM Collected: 02/28/2018 Status: F Source: SARAH 6:13 AM [facility] [place] TYPE CODE TESTS RESULT OUT OF RANGE REFERENCE UNITS LAB L501.8950 ug/mL Normal 1.50 TOBRA,RANDOM Result Comment: Random level based on once daily dose of antibiotic. Please contact Pharmacy Services (#[phone]) for interpretation of results. This result does not represent either a peak or a trough level for this drug. Performed By: #### L501.8950 #### [facility] [address] [place], [address] BEDSIDE GLUCOSE Collected: 02/27/2018 Status: F Source: SARAH 9:00 PM [facility] [place] TYPE CODE TESTS RESULT OUT OF REFERENCE UNITS RANGE LAB L501.080 70-110 mg/dL High BEDSIDE GLU 157 Result Comment: MANAGEMENT OF PATIENT CARE PER NURSING PROTOCOL Performed By: #### L501.080 #### [facility] Point of Care [address] [place] [address] BEDSIDE GLUCOSE Collected: 02/27/2018 Status: F Source: SARAH 4:35 PM [facility] [place] TYPE CODE TESTS RESULT OUT OF REFERENCE UNITS RANGE LAB L501.080 70-110 mg/dL High BEDSIDE GLU 167 Result Comment: MANAGEMENT OF PATIENT CARE PER NURSING PROTOCOL Performed By: #### L501.080 #### [facility] Point of Care [address] [place] [address] BEDSIDE GLUCOSE Collected: 02/27/2018 Status: F Source: SARAH 12:10 PM [facility] [place] TYPE CODE TESTS RESULT OUT OF REFERENCE UNITS RANGE LAB L501.080 70-110 mg/dL High BEDSIDE GLU 153 Result Comment: MANAGEMENT OF PATIENT CARE PER NURSING PROTOCOL Performed By: #### L501.080 #### [facility] Point of Care [address] [place], [place] [address] CBC W/DIFF, AUTOMATED Collected: 02/27/2018 Status: F Source: [place] 8:25 AM [facility] [place] Order Comment: VRI TYPE CODE TESTS RESULT OUT OF RANGE REFERENCE UNITS LAB L100.1000 4.4-11.0 K/mm3 Normal WBC 5.7 LAB L100.1200 4.2-5.4 M/mm3 Low RBC 4.09 LAB L100.1300 12.0-15.0 g/dl Low HGB 10.7 LAB L100.1400 37-47 % Low HCT 34.6 LAB L100.1500 81-99 fL Normal MCV 84.6 LAB L100.1600 27.0-32.0 pg Low MCH 26.2 LAB L100.1700 32-36 g/gl Low MCHC 30.9 LAB L100.1810 11.6-14.6 % High RDW CV 16.4 LAB L100.1820 35.1-43.9 fl High RDW SD 49.7 LAB L100.1900 150-450 K/mm3 Normal PLT 267 LAB L100.2000 6.2-12.0 fl Normal MPV 9.1 LAB L100.2100 47-70 % Normal NEUT% 69.0 LAB L100.2200 19-41 % Low LY% 18.6 LAB L100.2300 0-10 % Normal MONO% 8.3 LAB L100.2400 0-5 % Normal EO% 3.7 LAB L100.2500 0-1 % Normal BASO% 0.2 LAB L100.2550 0.0-0.9 % Normal IM GRAN % 0.200 Result Comment: IG% - Immature Granulocytes (promyelocytes, myelocytes and metamyelocytes) > 1% indicates that a LEFT SHIFT is Present. LAB L100.2620 2.0-7.7 X10 3/uL Normal Absolute Neut 3.9 LAB L100.2720 0.83-4.51 X10 3/ul Normal Absolute Lymph 1.06 Performed By: #### L100.0100 #### [facility] [address] [place], [address] BASIC METABOLIC Collected: 02/27/2018 Status: F Source: [place] PROFILE (BMP) 8:25 AM [facility] [place] Order Comment: VRI TYPE CODE TESTS RESULT OUT OF RANGE REFERENCE UNITS LAB L501.0100 74-106 mg/dL High GLU 115 Result Comment: Fasting Glucose result from 100 to 125 mg/dL suggests IMPAIRED HOMEOSTASIS per A.D.A. criteria. Please note revised GLUCOSE reference range effective 2017. LAB L501.1000 7-18 mg/dL High BUN 21 LAB L501.1100 0.55-1.02 mg/dL Normal CREAT,SERUM 0.55 Result Comment: The validity of the calculated GFR AND GFRAA in patients over 70 years has not been determined. Clinical correlation is essential. LAB L501.1110 >60 mL/min Normal EST GFR 117 Result Comment: Non- GFR Calc LAB L501.1115 >60 mL/min Normal EST GFR - AA 142 Result Comment: GFR Calc LAB L501.1255 ml/min Normal Estimated CRCL 43.92 LAB L501.1300 10-20 RATIO High BUN/CRE 38.5 LAB L501.2200 8.5-10 mg/dL Low .1 CA 7.9 LAB L501.5300 136-14 mmol/L Normal 5 NA 139 LAB L501.5600 3.5-5. mmol/L Normal 1 K 4.2 LAB L501.5900 98-107 mmol/L High CL 108 LAB L501.6100 21.0-3 mmol/L Normal 2.0 CO2 23.0 LAB L501.6200 5-15 Normal GAP 8 Performed By: #### L500.2500 #### [facility] [address] [place], [address] BEDSIDE GLUCOSE Collected: 02/27/2018 Status: F Source: SARAH 6:40 AM [facility] [place] TYPE CODE TESTS RESULT OUT OF REFERENCE UNITS RANGE LAB L501.080 70-110 mg/dL High BEDSIDE GLU 119 Result Comment: MANAGEMENT OF PATIENT CARE PER NURSING PROTOCOL Performed By: #### L501.080 #### [facility] Point of Care [address] [place] [address] HH, HEMOGLOBIN AND Collected: 02/26/2018 Status: F Source: [place] HEMATOCRIT 11:14 PM [facility] [place] TYPE CODE TESTS RESULT OUT OF RANGE REFERENCE UNITS LAB L100.1300 12.0-15.0 g/dl Low HGB 9.8 LAB L100.1400 37-47 % Low HCT 31.4 Performed By: #### L100.0600 #### [facility] [address] [place], [address] BEDSIDE GLUCOSE Collected: 02/26/2018 Status: F Source: SARAH 10:10 PM [facility] [place] TYPE CODE TESTS RESULT OUT OF REFERENCE UNITS RANGE LAB L501.080 70-110 mg/dL High BEDSIDE GLU 161 Result Comment: MANAGEMENT OF PATIENT CARE PER NURSING PROTOCOL Performed By: #### L501.080 #### [facility] Point of Care [address] [place] [address] EMERGENCY DEPARTMENT Observed: 02/26/2018 Status: F Source: SARAH SUMMARY 6:33 PM [facility] [place] [facility] Medical Records Department [address] [place] [address] Emergency Department Summary 02/26/18 1259 MR#: [id number] Acct: [id number] Name: VAZQUEZ ZAMBRANO Rep #: [id number] : 1950 68 From: Terrell Jones MD PCP: Power Esquivel MD Status: ADM IN - ER Visit Summary Date of Service: 02/26/18 Chief Complaint: Hematuria History of Present Illness: The patient is a [address] Olivares and Dr. Silva. She reports she has hematuria that began yesterday. States he has a history of a neurogenic bladder. She last had her Roach changed yesterday. Reports that she has been nauseated this morning. She denies any fever, chills, vomiting, or other complaints. She had a urine culture February 22 that shows Serratia that is only sensitive to gentamicin and tobramycin. It is intermediate to Cipro. Physical Examination: Vitals: Stable. Afebrile. General: Well-nourished and well-developed. Head: Normocephalic atraumatic. Neck: Supple, no lymphadenopathy. No JVD. Nontender. Cardiovascular: Regular rate and rhythm. No murmurs. Respiratory: No respiratory distress. Clear to auscultation bilaterally. Abdominal: Soft, nontender, nondistended, normal bowel sounds. No guarding, rebound, or peritoneal signs. Back: Nontender. Extremities: Nontender, no edema. Skin: Normal color, no rash. Neurologic: Alert and oriented 3. Cranial nerves II through XII are intact. Normal strength and sensation. Psych: Normal affect. Test Results: CBC is marked for a white count of 11.1 with 80 segmented neutrophils and 11 lymphocytes. Lactic acid is 1.8. Hemoglobin is 11.9. Chem- 7 more for BUN of 31. LFTs are remarkable for an AST of 14, total protein of 8.5, albumin 3.1, globulin 5.4. Coags are normal. Emergency Department Course and Treatment: Patient had her catheter irrigated. She was given gentamicin IV. She is resting comfortably. Treatment Plan: Patient was discussed with Dr. Frost. She will be admitted to the hospital for further evaluation and treatment. Disposition: Admitted in stable condition. Impression: 1. Hematuria. 2. Serratia UTI, multidrug resistant. This note was generated with [employer] dictation software. It may contain incorrect words, spelling, and punctuation that were not noted in review of the chart prior to signing ED Disposition - Plan for ED Patient: Chief Complaint: Complaint What to do if you have Problems For any increased pain, shortness of breath, bleeding, nausea or vomiting, chest pain, or any unexpected problems, contact your Primary Care Provider. Call [facility] ([phone]) or report to the closest Emergency Room. Call 911 if necessary. 02/26/18 5779 <Electronically signed by Terrell Jones MD> Date Terrell Jnoes MD Cosigner Signature (If Indicated): Date CC: Power Esquivel MD BEDSIDE GLUCOSE Collected: 02/26/2018 Status: F Source: SARAH 5:56 PM [facility] [place] TYPE CODE TESTS RESULT OUT OF RANGE REFERENCE UNITS LAB L501.080 70-110 mg/dL Normal BEDSIDE GLU 90 Result Comment: MANAGEMENT OF PATIENT CARE PER NURSING PROTOCOL Performed By: #### L501.080 #### [facility] Point of Care [address] [place] [address]. [place] [address] HH, HEMOGLOBIN AND Collected: 02/26/2018 Status: F Source: SARAH HEMATOCRIT 5:23 PM [facility] [place] TYPE CODE TESTS RESULT OUT OF RANGE REFERENCE UNITS LAB L100.1300 12.0-15.0 g/dl Low HGB 11.6 LAB L100.1400 37-47 % Normal HCT 37.8 Performed By: #### L100.0600 #### [facility] [address] [place], [address] MAGNESIUM Collected: 02/26/2018 Status: F Source: SARAH 5:23 PM [facility] [place] TYPE CODE TESTS RESULT OUT OF RANGE REFERENCE UNITS LAB L501.5200 1.6-2.6 mg/dL Low MG 1.4 Performed By: #### L501.5200 #### [facility] [address] [place], [address] HISTORY AND PHYSICAL Observed: 02/26/2018 Status: F Source: SARAH EXAM 3:27 PM [facility] [place] [facility] Medical Records Department [address] [place] [address] [place] [address] History and Physical 02/26/18 1420 MR#: [id number] Acct: [id number] Name: VAZQUEZ ZAMBRANO Rep #: [id number] : 1950 68 From: Sari Frost PCP: Power Esquivel MD Status: REG ER Y Location: ED Problem List (1) Complicated urinary tract infection Status: Acute (2) Hematuria Status: Acute Qualifiers: Hematuria type: unspecified type Qualified Code(s): R31.9 - Hematuria, unspecified (3) Neurogenic bladder Status: Chronic (4) Hypertension Status: Chronic Qualifiers: Hypertension type: essential hypertension Qualified Code(s): I10 - Essential (primary) hypertension (5) Gout Status: Chronic Qualifiers: Gout site: unspecified site Gout etiology: unspecified cause Chronicity: unspecified Qualified Code(s): M10.9 - Gout, unspecified Comment: with arthropathy (6) Diabetic neuropathy, type II diabetes mellitus Status: Chronic Qualifiers: Diabetes mellitus fci insulin use: without termite control technician use Qualified Code(s): E11.40 - Type 2 diabetes mellitus with diabetic neuropathy, unspecified (7) Colostomy in place Status: Chronic (8) Anemia of chronic disease Status: Chronic (9) Dupuytren's contracture of right hand Status: Chronic (10) Spinal stenosis Status: Chronic Qualifiers: Spinal region: lumbosacral Qualified Code(s): M48.07 - Spinal stenosis, lumbosacral region (11) Hyperlipidemia Status: Chronic Qualifiers: Hyperlipidemia type: unspecified Qualified Code(s): E78.5 - Hyperlipidemia, unspecified (12) RP (rectal prolapse) Status: Chronic History of Present Illness Date of Admission: 02/26/18 Chief Complaint: Hematuria, UTI The patient is a 68 y/o F w/ PMHx: History of Chronic Non- healing BL LE wounds and B/L buttock wounds ([facility]), Spinal Stenosis and Peripheral Neuropathy, Neurogenic bladder w/ chronic roach catheter, HTN, HLD, Diabetes mellitus type II, Gout, Rectal Prolapse s/p colostomy placement, AOCD, Severe deconditioning who presents to the [facility] ED on 02/26/18 with history of hematuria starting the day prior w/ dysuria, suprapubic tenderness w/ last roach change the day prior. She denies any fevers or chills. She has been taking keflex prior to current presentation, directed to ED transition given notable resistance patterns requiring IV abx therapies only. She notes she was supposed to have next [facility] evaluation on 02/27/18. In the ED work-up in the ED included T 98.4, heart rate 109, BP 140/85, respiratory rate 18, 99% on room air, CBC w/ WBC 11.1, Hgb 11.9, Plts 329 with L shift, unremarkable coags, CMP with BUN/creatinine 31/0.68, lactic acid 1.8, cultures obtained per ED, recent 02/22/18 UCx w/ Serratia marcescens sensitive to only gentamicin and tobramycin. Past Medical History Past Medical History (Chronic Problems): Chronic Problems Open wound of left thigh (Chronic) traumatic skin tear posterior thigh Incompetent urethral closure mechanism (Chronic) Neurogenic bladder (Chronic) Stage II pressure ulcer (Chronic) Chronic suprapubic catheter (Chronic) Diabetes mellitus type 2 in nonobese (Chronic) Hypertension (Chronic) Gout (Chronic) with arthropathy Pressure ulcer of left buttock, stage 3 (Chronic) left lower buttock/upper thigh area Diabetes mellitus (Chronic) Pressure ulcer of right buttock, stage 3 (Chronic) Diabetic neuropathy, type II diabetes mellitus (Chronic) Malnutrition (Chronic) Back pain (Chronic) Arthritis (Chronic) 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 significance to followup Anemia of chronic disease (Chronic) Physical deconditioning (Chronic) Dupuytren's contracture of right hand (Chronic) Spinal stenosis (Chronic) Hyperlipidemia (Chronic) RP (rectal prolapse) (Chronic) Allergies No Known Allergies Allergy (Verified 02/26/18 12:12) Home Medications: Ambulatory Orders Medication Instructions Recorded Allopurinol [Zyloprim] 200 mg PO DAILY 07/05/14 Surgical History: - - Surgery for rectal prolapse with anterior resection and rectopexy at [facility] in 2008 and back surgery 1979. Colostomy was November 2012. She had blood transfusions in October 2012 at [facility] for blood loss anemia. excision left ischial pressure sore with partial ostectomy for osteomyelitis and excision right ischial pressure sore and excision left lateral ankle pressure sore with partial ostectomy for osteomyelitis in 08/01. Psychiatric History: No pertinent psych hx SECURITY BUSINESS ANALYST History: No pertinent SECURITY BUSINESS ANALYST history Lives: Alone Smoking Status: Never smoker Tobacco Use: Non-smoker Alcohol: None Drugs: None - *Family History Maternal History Items: Diabetes, Hypertension Paternal History Items: Diabetes, Hypertension Review of Systems Constitutional: Reports: Malaise, Weakness, Fatigue. Denies: Chills, Fever, Weight Change HEENT: Denies: Head Aches, Sinus Congestion, Sinus Drainage Cardiovascular: Denies: Chest Pain, Palpitations Respiratory: Denies: Cough, Shortness of breath at rest, Sputum production Gastrointestinal: Reports: Abdominal Pain. Denies: Nausea, Vomiting Genitourinary: Reports: Dysuria, Incontinence, Retention Musculoskeletal: Denies: Joint Tenderness Skin: Reports: Skin Changes, Wounds. Denies: Rash Neurological: Reports: Focal weakness, Incoordination. Denies: Numbness, Tingling Psychiatric: Denies: Anxiety, Depression, Homicidal Ideations, Suicidal Ideations Hematologic/ Lymphatic: Reports: Anemia. Denies: Easy Bruising, Easy Bleeding VTE Information - Inpt Only VTE Present on Admission: No VTE Mechan Device Prophylaxis: SCD's VTE Pharm Prophylaxis ordered?: No Reason prophylaxis not ordered:: Medical Contraindication Patient Problems: Active and Suspected Problems Complicated urinary tract infection (Acute) Hematuria (Acute) Subjective: Seated upright in the ED bed, fatigued, appearing, NAD otherwise. Objective: Physical Examination: General: awake, alert, oriented x 3 and cooperative, seated upright in the ED bed in no apparent distress. Skin: normal color, turgor, no icterus, cyanosis except occasional extremity ecchymoses, bilateral stage III ischial decubitus ulcers, noninfected appearing. HEENT: AT/NC, EOMI, PERRLA, mildly dry MM, no carotid bruits or JVD noted. Lungs: Diminished BS BL, > BL bases, moderate effort, mild decrease BL bases, no rales, ronchi or wheezing. Heart: Regular rate and rhythm; no gallop, rub audible. Abdomen: soft, obese, ostomy in place with appropriate output, NTTP, ND, mildly hyperactive BS, no HSM, roach w/ gross hematuria, no clots. Extremities: no cyanosis, clubbing, BL ankle edema, non-pitting. Neurological: patient awake, alert, oriented x 3; cognitive function intact; pupils equally reactive to light and accomodation; cranial nerves II-XII grossly normal, moving all 4 extremities, chronic contracture RUE, no focal deficits, strength severely globally decreased. Psychiatric: affect appears normal, no acute evidence of depressive or anxiety feelings. - Physical Exam Vital Signs Temp Pulse Resp BP Pulse Ox 98.3 F 109 H 18 140/85 H 99 02/26/18 12:40 02/26/18 12:12 02/26/18 12:12 02/26/18 12:12 02/26/18 12:12 Oxygen Delivery Method Room Air Weight: 180 lb Body Mass Index (BMI) 31.8 Finger Stick Blood Glucose 109 Laboratory Tests Past 24 Hrs WBC RBC Hgb Hct MCV MCH MCHC Assessment/Plan All Active Problems Complicated urinary tract infection (Acute) Hematuria (Acute) Pressure ulcer of left buttock, stage 2 (Resolved) The patient is a 68 y/o F w/ PMHx: History of Chronic Non- healing BL LE wounds and B/L buttock wounds ([facility]), Spinal Stenosis and Peripheral Neuropathy, Neurogenic bladder w/ chronic roach catheter, HTN, HLD, Diabetes mellitus type II, Gout, Rectal Prolapse s/p colostomy placement, AOCD, Severe deconditioning who presents to the [facility] ED on 02/26/18 with history of hematuria starting the day prior w/ dysuria, suprapubic tenderness w/ last roach change the day prior. (1) Acute Complicated Serratia Urinary Tract Infection w/ Neurogenic bladder w/ chronic roach catheter: Will admit to [facility] upon ED evaluation remarkable, pending UCx, admission CBC w/ WBC 11.1 with L shift, continue IVFs, monitor I/Os, continue IV Tobra w/ transition as able pending sensitivities and speciation. Bld cx x 2 obtained in the ED. If clots occur with any concern of roach obstruction will need to consider irrigation initiation. (2) Spinal Stenosis and Peripheral Neuropathy, Neurogenic bladder: PT, OT, CM for discharge planning, position changes, barrier cream as needed, chronic roach catheter w/ most recent change the day prior to current presentation. (3) History of Rectal Prolapse: s/p colostomy, security system analyst consultation. (4) Diabetes mellitus type II: Hold oral home regimen, continue home insulin regimen, ADA diet, accu checks w/ ISS. (5) Obesity: Weight loss and lifestyle changes encouraged. (6) Hypertension: Continue home regimen including Lasix, losartan, PRN hydralazine. (7) Hyperlipidemia: Continue home statin regimen. AM FLP. (8) AOCD: Admission Hgb 11.9, baseline Hgb 9-10, will trend HH given notable hematuria, repeat CBC in AM. (9) Chronic Non-healing BL LE wounds and B/L buttock wounds, Ischial, Stage III: Long history of following w/ [facility]. Will continue Aquacel for all the ischial/buttock pressure ulcerations. Offloading. Wound RN consulted and made aware of patient. (10) DVT Prophylaxis: SCDs, defer chemoprophylaxis given notable hematuria. Code Visit Inpatient E AND M: [id number] Init Hosp L3 02/26/18 1527 <Electronically signed by Sari Frost > Date Sari Frost Cosigner Signature: Date (if applicable) CC: Sari Forst; Power Esquivel MD Signed CBC W/DIFF, AUTOMATED Collected: 02/26/2018 Status: F Source: SARAH 1:10 PM [facility] [place] TYPE CODE TESTS RESULT OUT OF RANGE REFERENCE UNITS LAB L100.1000 4.4-11.0 K/mm3 High WBC 11.1 LAB L100.1200 4.2-5.4 M/mm3 Normal RBC 4.41 LAB L100.1300 12.0-15.0 g/dl Low HGB 11.9 LAB L100.1400 37-47 % Normal HCT 37.3 LAB L100.1500 81-99 fL Normal MCV 84.6 LAB L100.1600 27.0-32.0 pg Normal MCH 27.0 LAB L100.1700 32-36 g/gl Low MCHC 31.9 LAB L100.1810 11.6-14.6 % High RDW CV 16.4 LAB L100.1820 35.1-43.9 fl High RDW SD 50.2 LAB L100.1900 150-450 K/mm3 Normal PLT 329 LAB L100.2000 6.2-12.0 fl Normal MPV 8.9 LAB L100.2100 47-70 % High NEUT% 80.0 LAB L100.2200 19-41 % Low LY% 11.1 LAB L100.2300 0-10 % Normal MONO% 6.8 LAB L100.2400 0-5 % Normal EO% 1.4 LAB L100.2500 0-1 % Normal BASO% 0.3 LAB L100.2550 0.0-0.9 % Normal IM GRAN % 0.400 Result Comment: IG% - Immature Granulocytes (promyelocytes, myelocytes and metamyelocytes) > 1% indicates that a LEFT SHIFT is Present. LAB L100.2620 2.0-7.7 X10 3/uL High Absolute Neut 8.8 LAB L100.2720 0.83-4.51 X10 3/ul Normal Absolute Lymph 1.23 Performed By: #### L100.0100 #### [facility] [address] [place], [place], [id number] PROTHROMBIN TIME W/INR Collected: 02/26/2018 Status: F Source: [place] 1:10 PM [facility] [place] TYPE CODE TESTS RESULT OUT OF RANGE REFERENCE UNITS LAB L300.4150 11.7-14.9 SECONDS Normal PROTIME 13.7 LAB L300.4200 Normal INR 1.1 Performed By: #### L300.3900, L300.4310 #### [facility] [address] [place], [address] PARTIAL THROMBOPLAST Collected: 02/26/2018 Status: F Source: [place] TIME 1:10 PM [facility] [place] [facility] TYPE CODE TESTS RESULT OUT OF RANGE REFERENCE UNITS LAB L300.4310 24.1-36.2 Seconds Normal PTT 32.2 Performed By: #### L300.3900, L300.4310 #### [facility] [address] [place], [place], [id number] COMPREHENSIVE METABOLIC Collected: 02/26/2018 Status: F Source: SARAH SIMEON 1:10 PM [facility] [place] [facility] TYPE CODE TESTS RESULT OUT OF RANGE REFERENCE UNITS LAB L501.0100 74-106 mg/dL Normal GLU 88 Result Comment: Please note revised GLUCOSE reference range effective 2017. LAB L501.1000 7-18 mg/dL High BUN 31 LAB L501.1100 0.55-1.02 mg/dL Normal CREAT,SERUM 0.68 Result Comment: The validity of the calculated GFR AND GFRAA in patients over 70 years has not been determined. Clinical correlation is essential. LAB L501.1110 >60 mL/min Normal EST GFR 90 Result Comment: Non- GFR Calc LAB L501.1115 >60 mL/min Normal EST GFR - AA 109 Result Comment: GFR Calc LAB L501.1255 ml/min Normal Estimated CRCL 43.92 LAB L501.1300 10-20 RATIO High BUN/CRE 45.3 LAB L501.1500 6.4-8. g/dL High 2 T PROT 8.5 LAB L501.1800 3.2-5. g/dL Low 0 ALB 3.1 LAB L501.1950 2.2-4. g/dL High 2 GLOB 5.4 LAB L501.2000 0.9-2. RATIO Low 4 A/G 0.6 LAB L501.2200 8.5-10 mg/dL Normal .1 CA 9.1 LAB L501.4100 15-37 U/L Low AST 14 LAB L501.4305 45-117 U/L Normal ALK P 84 LAB L501.4405 13-56 U/L Normal ALT 20 LAB L501.4600 0.20-1 mg/dL Normal .00 T BILI 0.30 LAB L501.5300 136-14 mmol/L Normal 5 NA 137 LAB L501.5600 3.5-5. mmol/L Normal 1 K 4.2 LAB L501.5900 98-107 mmol/L Normal CL 101 LAB L501.6100 21.0-3 mmol/L Normal 2.0 CO2 27.0 LAB L501.6200 5-15 Normal GAP 9 Performed By: #### L500.4050 #### [facility] [address] [place], [place], [id number] LACTIC ACID Collected: 02/26/2018 Status: F Source: SARAH 1:10 PM [facility] [place] [facility] Order Comment: Yes/No query for Sepsis Lactate Rule Y TYPE CODE TESTS RESULT OUT OF RANGE REFERENCE UNITS LAB L503.6005 0.4-2.0 mmol/L Normal LACTIC ACID 1.8 Performed By: #### L503.6005 #### [facility] [address] [place], [place], [address] Observed: 02/26/2018 Status: F Source: SARAH CULTURE, BLOOD (WB) 1:10 PM [facility] [place] [facility] BC No growth in 5 days. Performed By: #### M200.1000 #### [facility] [address] [place], [place], [address] URINALYSIS, ROUTINE Collected: 02/22/2018 Status: F Source: SARAH (DIPSTICK) 5:41 PM [facility] [place] [facility] Order Comment: How was Urine Obtained? CLEAN CATCH TYPE CODE TESTS RESULT OUT OF RANGE REFERENCE UNITS LAB L400.3000 Yellow COLOR Normal Yellow LAB L400.3050 Clear Normal CLARITY Sl. Cloudy LAB L400.3200 Normal mg/dl Normal GLUCOSE, UR Normal LAB L400.3300 Negative mg/dL Normal BILIRUBIN URINE Negative LAB L400.3400 Negative mg/dl Normal KETONE UR Negative LAB L400.3465 1.002-1.030 Normal SP.GR. DIPSTX 1.010 LAB L400.3550 5.0 - 8.0 pH UR Normal 6.0 LAB L400.3600 Negative mg/dl High PROT 30 DIPSTX LAB L400.3700 Normal mg/dl Normal UROBILI Normal LAB L400.3750 Negative High NITRITE UR Positive LAB L400.3780 Negative /ul High OCCULT BLOOD-UR 150 LAB L400.3800 Negative /ul High LEUK ESTERASE 500 Performed By: #### L400.2011 #### [facility] [address] [place], [place], [address] Observed: 02/22/2018 Status: F Source: SARAH CULTURE, URINE 5:41 PM [facility] [place] [facility] RESULTS CALLED TO JOSELIN NURSE 02/25/18 0916 Vanna Thurston. REPORT READ BACK BY SAME. Urine Culture SAMPLE SENT TO , POSSIBLE CARBAPENEMASE PRODUCING ORGANISM. Copy of report sent to Infection Control Printer MS#[id number] 02/25/18 0912 JESSICA. [facility] Report Identification Serratia marcescens TEST Result Interpretation NEVAEH AZTREONAM 6.0 ug/mL Intermediate NEVAEH Cefepime 1.0 ug/mL Susceptible NEVAEH Ceftazidime 1.5 ug/mL Susceptible NEVAEH Ceftriaxone >32.0 ug/mL Resistant NEVAEH Doripenem 0.25 ug/mL Susceptible NEVAEH Ertapenem 0.75 ug/mL Intermediate mCIM Negative IMP Gene Not Detected KPC Gene Not Detected NDM Gene Not Detected VIM Gene Not Detected OXA-48-Like Gene Not Detected ORGANISM 1: Serratia marcescens [place] Count >100,000 MARKER . Serratia marcescens: REACTION Amoxacillin/Clavulanic Acid $ >=32 R Cefazolin $ >=64 R Cefepime $ 4 R Ceftriaxone $ 32 R Ciprofloxacin $ 2 I Gentamicin $ <=1 S Levofloxacin $ >=8 R Nitrofurantoin $ 256 R Tobramycin $ 2 S Trimethoprim/Sulfametho $ >=320 R (NF) indicates non-formulary drug at [facility]. Approval by Infectious Disease Specialist required before non-formulary drugs may be ordered and/or dispensed. Performed By: #### M100.0650 #### [facility] [place], [address] Observed: 01/15/2018 Status: F Source: [place] CULTURE, DEEP WOUND 1:45 PM [facility] Gram Stain Gram Stain Very Rare White Blood Cells Very Rare Gram positive cocci Wound Culture #2 AND 3 Clinical correlation necessary, Possible skin contamination. #3 There are no CLSI standards for interpretation of this Drug/Organism combination. ORGANISM 1: Proteus mirabilis Amount Growth Very Rare ORGANISM 2: Staphylococcus epidermidis Amount Growth Rare ORGANISM 3: Corynebacterium species Amount Growth Rare Proteus mirabilis: REACTION Amoxacillin/Clavulanic Acid $ 8 S Ampicillin $ >=32 R Ampicillin/Sulbactam $ 8 S Cefazolin $ 8 S Cefepime $ <=1 S Ceftriaxone $ <=1 S Ciprofloxacin $ >=4 R Ertapenim $$$ <=0.5 S Gentamicin $ <=1 S Levofloxacin $ >=8 R Piperacillin/Tazobactam $$ <=4 S Tobramycin $ <=1 S Trimethoprim/Sulfametho $ >=320 R (NF) indicates non-formulary drug at [facility]. Approval by Infectious Disease Specialist required before non-formulary drugs may be ordered and/or dispensed. Staphylococcus epidermidis: REACTION Benzylpenicillin NF >=0.5 R Cefoxitin *NF + Clindamycin $$ <=0.25 S Inducable Clindamycin Resistan - Erythromycin $ <=0.25 S Gentamicin $ <=0.5 S Levofloxacin $ 4 I Linezolid $$$$ 1 S Oxacillin NF >=4 R Tigecycline $$$$ <=0.12 S Rifampin $$ <=0.5 S Tetracycline NF <=1 S Vancomycin $ 1 S (NF) indicates non-formulary drug at [facility]. Approval by Infectious Disease Specialist required before non-formulary drugs may be ordered and/or dispensed. * CLSI guidelines does not recommend testing of cephalosporins. This interpretation is deduced from Beta-lactam/penicillin results. Cult, Anaerobic No anaerobic bacteria isolated. Performed By: #### M100.1500 #### [facility] [address] [place], [address] EMERGENCY DEPARTMENT Observed: 11/24/2017 Status: F Source: [place] SUMMARY 7:55 AM [facility] [place] [facility] Medical Records Department [address] [place] [address] Emergency Department Summary 11/23/17 1511 MR#: [id number] Acct: [id number] Name: VAZQUEZ ZAMBRANO Rep #: [id number] : 1950 67 From: Javid Fermin MD PCP: Power Esquivel MD Status: DEP ER - ER Visit Summary Date of Service: 11/23/17 Chief Complaint: Rectal drainage History of Present Illness: The patient is a 67 F with a history of colostomy here for drainage from her Moss's pouch. Patient gets frequent rectal prolapse. It is not currently prolapsed. She also has sacral decubitus ulcers and is taking Augmentin and Flagyl. Denies fever or systemic symptoms. Denies abdominal pain, nausea, or vomiting. Denies any changes in output from her colostomy. Physical Examination: Afebrile and vital signs unremarkable except for heart rate of 106. Patient is nontoxic and in no acute distress. Heart regular. Lungs clear. Abdomen soft. Rectal exam shows multiple thigh and buttock decubitus ulcers. There is no prolapse. No discharge or bleeding at this time. No palpable masses or tenderness. Test Results: Laboratory studies are unremarkable. CT imaging is pending and the oncoming doctor will check. Emergency Department Course and Treatment: Exam is fairly unremarkable. She has decubitus ulcers and is currently being treated with Augmentin and Flagyl. The drainage that the patient describes is currently not present. There is no evidence of prolapse. The concern would be an abscess or infection. Laboratory studies were unremarkable. CT is pending. The oncoming doctor will check. If everything is unremarkable, the patient will continue her antibiotics and follow-up with her doctor. Treatment Plan: As above Disposition: Pending further evaluation Impression: 1. Postop rectal drainage This note was generated with [employer] software. It may contain incorrect words, spelling, and punctuation that were not noted in review of the chart prior to signing <ZanderJavid sharma - Last Filed: 11/23/17 15:11> - ER Visit Summary Date of Service: 11/23/17 Addendum, patient was turned over to me. I repeated the examination there is certainly some discharge from the rectum, this is consistent with candidal infection thus I am worried about a fistula between the vagina and the rectum, I discussed with surgery, there is no colorectal surgeon here thus I will refer a told the patient to call her insurance company tomorrow to figure out who she can be referred to an where, she either wants to go to [place] or [place]. At this time she continues to be on antibiotics which may cause her yeast infection to be worse. Otherwise patient will be discharged. This note was generated with [employer] software. It may contain incorrect words, spelling, and punctuation that were not noted in review of the chart prior to signing <Phani oRss - Last Filed: 11/23/17 17:31> ED Disposition <Javid Fermin - Last Filed: 11/23/17 15:11> <Phani Ross - Last Filed: 11/23/17 17:31> - Plan for ED Patient: Disposition: Home or Assisted Living Chief Complaint: Other, Pain/Inj Diagnosis: RP (rectal prolapse) Prescriptions: Fluconazole [Diflucan] 200 mg PO DAILY #3 tab Additional Instructions: You need to call your insurance company, at the name of a colorectal surgeon to follow-up with. What to do if you have Problems For any increased pain, shortness of breath, bleeding, nausea or vomiting, chest pain, or any unexpected problems, contact your Primary Care Provider. Call [facility] ([phone]) or report to the closest Emergency Room. Call 911 if necessary. 11/24/17 0755 <Electronically signed by Javid Fermin MD> Date Javid Fermin MD 11/23/17 1732<Electronically signed by Phani Ross MD> Cosigner Signature (If Indicated): Date Phani Ross MD CC: Power Esquivel MD CBC W/DIFF, AUTOMATED Collected: 11/23/2017 Status: F Source: SARAH 1:40 PM [facility] [place] TYPE CODE TESTS RESULT OUT OF RANGE REFERENCE UNITS LAB L100.1000 4.4-11.0 K/mm3 Normal WBC 10.3 LAB L100.1200 4.2-5.4 M/mm3 Normal RBC 4.86 LAB L100.1300 12.0-15.0 g/dl Normal HGB 12.5 LAB L100.1400 37-47 % Normal HCT 40.5 LAB L100.1500 81-99 fL Normal MCV 83.3 LAB L100.1600 27.0-32.0 pg Low MCH 25.7 LAB L100.1700 32-36 g/gl Low MCHC 30.9 LAB L100.1810 11.6-14.6 % High RDW CV 17.1 LAB L100.1820 35.1-43.9 fl High RDW SD 52.4 LAB L100.1900 150-450 K/mm3 Normal PLT 387 LAB L100.2000 6.2-12.0 fl Normal MPV 8.9 LAB L100.2100 47-70 % High NEUT% 75.6 LAB L100.2200 19-41 % Low LY% 12.8 LAB L100.2300 0-10 % Normal MONO% 7.8 LAB L100.2400 0-5 % Normal EO% 3.3 LAB L100.2500 0-1 % Normal BASO% 0.3 LAB L100.2550 0.0-0.9 % Normal IM GRAN % 0.200 Result Comment: IG% - Immature Granulocytes (promyelocytes, myelocytes and metamyelocytes) > 1% indicates that a LEFT SHIFT is Present. LAB L100.2620 2.0-7.7 X10 3/uL High Absolute Neut 7.8 LAB L100.2720 0.83-4.51 X10 3/ul Normal Absolute Lymph 1.32 Performed By: #### L100.0100 #### [facility] [address] [place], [address] BASIC METABOLIC Collected: 11/23/2017 Status: F Source: [place] PROFILE ([facility]) 1:40 PM [facility] [place] [facility] TYPE CODE TESTS RESULT OUT OF RANGE REFERENCE UNITS LAB L501.0100 74-106 mg/dL High GLU 129 Result Comment: Fasting Glucose result greater than or equal to 126 mg/dL suggests DIABETES MELLITUS per A.D.A. criteria. Please note revised GLUCOSE reference range effective 2017. LAB L501.1000 7-18 mg/dL High BUN 33 LAB L501.1100 0.55-1.02 mg/dL Normal CREAT,SERUM 0.88 Result Comment: The validity of the calculated GFR AND GFRAA in patients over 70 years has not been determined. Clinical correlation is essential. LAB L501.1110 >60 mL/min Normal EST GFR 68 Result Comment: Non- GFR Calc LAB L501.1115 >60 mL/min Normal EST GFR - AA 82 Result Comment: GFR Calc LAB L501.1255 ml/min Normal Estimated CRCL 48.39 LAB L501.1300 10-20 RATIO High BUN/CRE 37.7 LAB L501.2200 8.5-10 mg/dL Normal .1 CA 9.2 LAB L501.5300 136-14 mmol/L Normal 5 NA 138 LAB L501.5600 3.5-5. mmol/L Normal 1 K 3.9 LAB L501.5900 98-107 mmol/L Normal CL 102 LAB L501.6100 21.0-3 mmol/L Normal 2.0 CO2 27.0 LAB L501.6200 5-15 Normal GAP 9 Performed By: #### L500.2500 #### [facility] [address] [place], [address] ABDOMEN/PELVIS W IV CONT Observed: 11/23/2017 Status: F Source: [place] ONLY 1:29 PM [facility] [place] Imaging Services [address] [place] [address] Abdomen/Pelvis W IV Cont ONLY MR#: [id number] Acct: [id number] Name: VAZQUEZ ZAMBRANO Rep #: [id number] : 1950 F 67 From: Deshaun Ham MD PCP: Power Esquivel MD Status: REG ER Study: Abdomen/Pelvis W IV Cont ONLY Date of Exam: 11/23/17 Exam# [id number] Ordering Dr: Javid Fermin MD STUDY: CT ABDOMEN AND PELVIS WITHOUT CONTRAST REASON FOR EXAM: Female, 67 years old. Prolapsed rectum, rectal pain and drainage. History of neurogenic bladder and colostomy. RADIATION DOSAGE (If Supplied By Facility): CTDIvol = ( 16.62 ) mGy, DLP = ( 1208.65 ) mGycm TECHNIQUE: Transaxial images were obtained from the dome of the diaphragm to the symphysis pubis without oral contrast, and without intravenous contrast. Sagittal and coronal images were reconstructed. Individualized dose optimization techniques were used for this CT. COMPARISON: CT pelvis 06/14/2014, 10/19/2013. FINDINGS: Body wall soft tissues: Left lower quadrant colostomy. There appears to be a rectal prolapse. Mild thickening of wall the rectum. Surrounding perirectal fat, and peritoneal fat is unremarkable. Within the gluteal crease immediately adjacent tuberosities bilaterally, there is marked soft tissue thickening of the skin, and to the margin tuberosity. This concerning for decubitus ulcer. There are no features of osteomyelitis Osseous structures: There is myositis ossificans extending into the origins of the hamstring muscles on the left from the base of the ischial tuberosity. There is prominent multilevel lumbar degenerative disc disease and facet arthropathy/hypertrophy with multilevel stenosis. Generalized osteopenia. Scoliosis. Mild to moderate hip joint degenerative changes bilaterally. Inferior chest: Normal lung bases, normal distal esophagus, normal heart size without effusion. Coronary calcifications are present. Hepatobiliary: Normal. Pancreas: No acute process. Spleen: Normal. Adrenal glands: Normal. Urogenital: Benign renal cysts. Symmetric nephrograms. Minimal atrophy. Normal collecting systems, ureters. The urinary bladder is decompressed by Roach catheter. Incompletely characterized. Uterus absent. Diminutive normal appearing bilateral ovaries. Pelvic floor and sidewalls and retroperitoneum: No mass or adenopathy. Vasculature: No acute process. Stomach: No acute process. Small bowel and mesentery: No acute process. Large bowel: Normal appendix. There is a large distributed stool burden of stool in the colon suggesting the possibility of constipation. In the rectosigmoid surgical stone, there is a small amount of retained feces, associated with mild thickening and hyperemia of the wall suggesting mild acute inflammation. Free fluid or free air: None. CT/Abdomen/Pelvis W IV Cont ONLY IMPRESSION: 1. There may be mild soft tissue inflammation associated with the anorectum. There is evidence of rectal prolapse. 2. There is a small amount of retained bubbly cc within the proximal most portion of the remnant sigmoid colon, of the rectosigmoid stump, associated with mild thickening of the wall, suggesting the presence of mild inflammation. 3. There is a prominent burden of stool in the entirety of the large bowel from cecum to the colostomy which may reflect constipation. 4. There is soft tissue induration thickening overlying the ischial tuberosities bilaterally to a greater extent on the right which may reflect development of decubitus ulcer, requiring close correlation. 5. Prominent lumbar spondylosis with multilevel prominent stenosis. Correlate for any symptoms of lumbosacral radiculopathy. Electronically Signed: Deshaun Ham, at 15:26 EDT Tel , Service support , CC: Power Esquivel MD; Javid Fermin MD Fiber Heel Piece Shaper: Signed PELVIS 1 OR 2 VIEWS Observed: 11/16/2017 Status: F Source: [place] 1:04 PM [facility] [place] [facility] Imaging Services [address] [place] [id number] Pelvis 1 or 2 Views MR#: [id number] Acct: [id number] Name: VAZQUEZ ZAMBRANO Rep #: [id number] : 1950 F 67 From: Seb Huerta MD PCP: Power Esquivel MD Status: REG RCR Study: Pelvis 1 or 2 Views Date of Exam: 11/16/17 Exam# [id number] Ordering Dr: Vanessa Bull DO STUDY: X-RAY - PELVIS REASON FOR EXAM: Female, 67 years old. Rule out osteomyelitis of left ischium TECHNIQUE: One view of the pelvis was obtained. COMPARISON: Previous study of 08/05/2017 FINDINGS: There is a large amount of colonic stool. Soft tissue calcification is seen inferior to the inferior left pubic ramus. Normal bilateral iliac wings, sacroiliac joints and visualized sacrum. There are sclerotic changes of the left inferior and superior pubic rami. There appears to be an osseous bridge or exostosis arising from the lateral left pubic ramus. Normal pubic symphysis. Normal ischial tuberosities. There are degenerative changes of the left and right hip joints. RAD/Pelvis 1 or 2 Views IMPRESSION: 1. Sclerosis of the left inferior and superior pubic rami. 2. There appears to be an osseous bridge or exostosis arising from the lateral left pubic ramus. 3. Soft tissue calcification inferior to the inferior left pubic ramus consistent with myositis ossificans. 4. Degenerative changes of the left and right hip joints and visualized lumbar spine. 5. Findings are similar to the previous study. 6. If clinically indicated, nuclear 3 phase bone scan may be helpful for further evaluation. Electronically Signed: Seb Huerta MD at 23:04 EDT , Service support , CC: Power Esquivel MD; Vanessa Bull DO Fiber Heel Piece Shaper: Signed Observed: 11/13/2017 Status: F Source: [place] CULTURE, DEEP WOUND 2:00 PM [facility] [place] [facility] Comments: LEFT POST THIGH ULCER. Gram Stain Gram Stain 2+ Red Blood Cells No White Blood Cells No organisms seen Wound Culture #2 There are no CLSI standards for interpretation of this Drug/Organism combination. ORGANISM 1: Proteus mirabilis Amount Growth 1+ ORGANISM 2: Proprionibacterium acnes Amount Growth 2+ Proteus mirabilis: REACTION Amoxacillin/Clavulanic Acid $ 8 S Ampicillin $ >=32 R Ampicillin/Sulbactam $ 16 I Cefazolin $ 8 S Cefepime $ <=1 S Ceftriaxone $ <=1 S Ciprofloxacin $ >=4 R Ertapenim $$$ <=0.5 S Gentamicin $ <=1 S Levofloxacin $ >=8 R Piperacillin/Tazobactam $$ <=4 S Tobramycin $ <=1 S Trimethoprim/Sulfametho $ >=320 R (NF) indicates non-formulary drug at [facility]. Approval by Infectious Disease Specialist required before non-formulary drugs may be ordered and/or dispensed. Cult, Anaerobic Studies have confirmed that Anaerobic Gram Positive Cocci are routinely susceptible to: Penicillin/Ampicillin, Ampicillin/Sulbactam, Piperacillin/Tazobactam, Cefoxatin, Ertapenem, Imipenem, Meropenem and Metronidazole and vary in resistance to: Clindamycin and Moxifloxacin. ORGANISM 1: Anaerobic cocci Performed By: #### M100.1500 #### [facility] [address] [place], [address] Observed: 10/02/2017 Status: F Source: [place] CULTURE, DEEP WOUND 2:00 PM [facility] [place] [facility] Comments: RIGHT GLUTE Gram Stain Gram Stain No White Blood Cells No organisms seen Wound Culture #2 Gram positive miranda suggestive of a diptheroid. There are no CLSI standards for interpretation of this Drug/Organism combination. ORGANISM 1: Proteus mirabilis Amount Growth Very Rare ORGANISM 2: Gram positive miranda Amount Growth Rare Proteus mirabilis: REACTION Amoxacillin/Clavulanic Acid $ 4 S Ampicillin $ >=32 R Ampicillin/Sulbactam $ 16 I Cefazolin $ <=4 S Cefepime $ <=1 S Ceftriaxone $ <=1 S Ciprofloxacin $ >=4 R Ertapenim $$$ <=0.5 S Gentamicin $ <=1 S Levofloxacin $ >=8 R Piperacillin/Tazobactam $$ <=4 S Tobramycin $ <=1 S Trimethoprim/Sulfametho $ >=320 R (NF) indicates non-formulary drug at [facility]. Approval by Infectious Disease Specialist required before non-formulary drugs may be ordered and/or dispensed. Cult, Anaerobic No anaerobic bacteria isolated. Performed By: #### M100.1500 #### [facility] [address] [place], [address] DISCHARGE INSTRUCTION Observed: 09/16/2017 Status: F Source: [place] 1:06 PM [facility] Medical Records Department [address] [place] [address] Instructions for Home/Discharge Instructions 09/16/17 1300 MR#: [id number] Acct: [id number] Name: VAZQUEZ ZAMBRANO Rep #: [id number] : 1950 67 From: Derrick Silva MD PCP: Power Esquivel MD Status: [place] [facility] ADDENDUM by Derrick Silva MD on 09/16/17 at 1306 okay to flush SP tube if bloody or not draining with 20cc of sterile water. Date Derrick Silva MD cc: Power Esquivel MD * Signed Discharge Diet: Light diet - advance as tolerated Call your doctor if your incision/area has: Sudden Increased Bleeding Suture Line Care: Avoid Pulling/Pushing, Avoid Pinching/Bending Instructions: Discharge Instructions: Caring for Your Suprapubic Catheter Allergies/Adverse Reactions: Allergies No Known Allergies Allergy (Verified 09/09/17 11:50) Medications to take at Discharge Allopurinol [Zyloprim] 100 mg PO BID 07/05/14 Latanoprost 0.005% [Xalatan Opthalmic] 1 drop EACH EYE QHS 07/05/14 Losartan Potassium [Cozaar] 25 mg PO DAILY 07/05/14 Metformin HCl [Glucophage] 1,000 mg PO BIDCM 07/05/14 Multivitamins,Therapeutic [Multivitamin] 1 tablet PO DAILY 07/05/14 Simvastatin [Zocor] 10 mg PO QHS 07/05/14 Timolol Maleate [Timoptic-XE 0.5%] 1 drop EACH EYE DAILY 07/05/14 Acetaminophen [Tylenol Tablet] 650 mg PO Q6H PRN PRN #0 tablet 07/11/14 Furosemide [Lasix] 20 mg PO DAILY 06/29/15 Potassium Chloride [K-Dur] 20 meq PO DAILY 06/29/15 Saxagliptin HCl [Onglyza] 5 mg PO DAILY 07/01/17 Solifenacin Succinate [Vesicare] 10 mg PO DAILY 07/01/17 Ascorbic Acid [Vitamin C] 500 mg PO DAILY@0800 09/09/17 Primary Care Physician: Jones Esquivel MD [Primary Care Provider] - Please Follow Up With: Derrick Silva MD When: call for a follow up appt in two months. 09/16/17 7392 <Electronically signed by Derrick Silva MD> Date Derrick Silva MD CC: Power Esquivel MD OPERATIVE REPORT Observed: 09/16/2017 Status: F Source: SARAH 1:05 PM [facility] [place] [facility] Medical Records Department [address] [place] [address] Operative Report 09/16/17 1302 MR#: [id number] Acct: [id number] Name: VAZQUEZ ZAMBRANO Rep #: [id number] : 1950 67 From: Derrick Silva MD PCP: Power Esquivel MD Status: REG SDC Y Location: [place] [address] Report of Operation Date of Procedure: 09/16/17 Pre-Operative Diagnosis: Neurogenic bladder Post-Operative Diagnosis: same Surgery/Procedure Performed:: Insertion of suprapubic tube Description of Surgical Findings:: 67-year-old female who had a suprapubic tube placed before however difficult tube change in the tube track was lost so she went back to her chronic catheter she has leak urine a lot has chronic bedsores and she is requesting a suprapubic catheter again she understands the risks of the suprapubic catheter is bleeding infection risk of perforation or damage to any critical critical structures during placement of catheter understand that the catheter may follow up the tract may close up infection and bleeding. 59-year-old female taken back to the operating room at the [facility] [place], [place] she was placed supine on the table in dorsal lithotomy position she is in fairly fit frail condition very cachectic skinny legs she had dressings on both the decubitus ulcers posteriorly the urethra is very patulous and remove the catheter went into the bladder the bladder would not even to stand with a catheter because of the water is flowing around the scope, I do blood pressure up on the catheter to distend the bladder made a small incision in the mid abdomen above the suprapubic used a spinal needle to to investigate the track and then found a nice track into the dome of the bladder then advanced the suprapubic catheter trocar from the skin to the dome of the bladder left the remove the trocar left the sheath and placed into the sheath to place a 16 Qatari catheter 10 cc in the balloon I then sutured the catheter to the skin remove the regular catheter flushed it flushed easily with very little bleeding and then dressings were placed on the suprapubic catheter patient anesthetic reversed plan to see her back in 2 months to change catheter. Type of Anesthesia:: Local MAC Drains: 16 fr SP tube. - Admit VTE Documentation VTE Present on Admission: No VTE Mechan Device Prophylaxis: SCD's VTE Pharm Prophylaxis ordered?: No Reason prophylaxis not ordered:: Treatment Not Indicated 09/16/17 1305 <Electronically signed by Derrick Silva MD> Date Derrick Silva MD CC: Power Esquivel MD; Derrick Silva MD Signed BEDSIDE GLUCOSE Collected: 09/16/2017 Status: F Source: SARAH 11:02 AM [facility] [place] CODE TESTS RESULT OUT OF REFERENCE UNITS RANGE LAB L501.080 70-110 mg/dL High BEDSIDE GLU 126 Result Comment: MANAGEMENT OF PATIENT CARE PER NURSING PROTOCOL Performed By: #### L501.080 #### [facility] Point of Care [address] [place] [address] WOUND CTR HISTORY Observed: 08/24/2017 Status: F Source: SARAH AND PHYSICAL 2:27 PM [facility] [place] [facility] W[facility]aling [facility] [address] [place] [address] Wound Ctr History AND Physical 08/24/17 1414 MR#: [id number] Acct: [id number] Name: VAZQUEZ ZAMBRANO Rep #: [id number] : 1950 67 From: Joaquín Lind MD PCP: Power Esquivel MD Status: REG RCR Y Location: WC (1) Open wound of left thigh Status: Chronic Current Visit: Yes Qualifiers: Encounter type: subsequent encounter Code(s): S71.102A - Unspecified open wound, left thigh, initial encounter Comment: traumatic skin tear posterior thigh (2) Incompetent urethral closure mechanism Status: Chronic Current Visit: No Code(s): N36.8 - Other specified disorders of urethra (3) Neurogenic bladder Status: Chronic Current Visit: No Code(s): N31.9 - Neuromuscular dysfunction of bladder, unspecified (4) Stage II pressure ulcer Status: Chronic Current Visit: Yes Qualifiers: Pressure ulcer location: thigh Code(s): L89.92 - Pressure ulcer of unspecified site, stage 2 (5) Chronic suprapubic catheter Status: Chronic Current Visit: No Code(s): Z93.59 - Other cystostomy status (6) Diabetes mellitus type 2 in nonobese Status: Chronic Current Visit: No Code(s): E11.9 - Type 2 diabetes mellitus without complications (7) Hypertension Status: Chronic Current Visit: No Qualifiers: Code(s): I10 - Essential (primary) hypertension (8) Gout Status: Chronic Current Visit: No Code(s): M10.9 - Gout, unspecified Comment: with arthropathy (9) Pressure ulcer of left buttock, stage 3 Status: Resolved Current Visit: No Code(s): L89.323 - Pressure ulcer of left buttock, stage 3 (10) Pressure ulcer of left buttock, stage 2 Status: Resolved Current Visit: Yes Code(s): L89.322 - Pressure ulcer of left buttock, stage 2 (11) Diabetes mellitus Status: Chronic Current Visit: No Code(s): E11.9 - Type 2 diabetes mellitus without complications (12) Pressure ulcer of right buttock, stage 3 Status: Chronic Current Visit: Yes Code(s): L89.313 - Pressure ulcer of right buttock, stage 3 (13) Diabetic neuropathy, type II diabetes mellitus Status: Chronic Current Visit: Yes Code(s): E11.40 - Type 2 diabetes mellitus with diabetic neuropathy, unspecified (14) Malnutrition Status: Chronic Current Visit: No Qualifiers: Code(s): E46 - Unspecified protein-calorie malnutrition (15) Back pain Status: Chronic Current Visit: No Qualifiers: Code(s): M54.9 - Dorsalgia, unspecified (16) Arthritis Status: Chronic Current Visit: No Code(s): M19.90 - Unspecified osteoarthritis, unspecified site (17) Colostomy in place Status: Chronic Current Visit: No Code(s): Z93.3 - Colostomy status (18) chronic osteomyelitis left ischial area Status: Chronic Current Visit: Yes (19) Pressure sore of left ischium, stage 4 Status: Chronic Current Visit: Yes Code(s): L89.324 - Pressure ulcer of left buttock, stage 4 (20) Lytic bone lesion of right femur Status: Chronic Current Visit: No Code(s): M89.8X5 - Other specified disorders of bone, thigh Comment: and right humerus ? significance to followup (21) Anemia of chronic disease Status: Chronic Current Visit: No Code(s): D63.8 - Anemia in other chronic diseases classified elsewhere (22) Physical deconditioning Status: Chronic Current Visit: No Code(s): R53.81 - Other malaise (23) Dupuytren's contracture of right hand Status: Chronic Current Visit: No Code(s): M72.0 - Palmar fascial fibromatosis [Dupuytren] (24) Spinal stenosis Status: Chronic Current Visit: Yes Qualifiers: Code(s): M48.00 - Spinal stenosis, site unspecified (25) Hyperlipidemia Status: Chronic Current Visit: No Code(s): E78.5 - Hyperlipidemia, unspecified (26) RP (rectal prolapse) Status: Chronic Current Visit: No Code(s): K62.3 - Rectal prolapse History of Present Illness Date of Service: 08/24/17 Chief Complaint: Left ischial pressure ulcer, Stage IV. Right ischial pressure ulcer, stage III. Spinal stenosis. Ulceration of left buttock. History of Wound: Patient is a 67-year-old female who has a chronic pressure ulcer of her left ischium and right ischium. Patient was initially hospitalized for a swelling and redness of her right leg approximately 2014. This was evaluated for cellulitis. She was seen in consultation by infectious disease and plastic surgery. The patient was taken to surgery for an operative debridement of her chronic left ischial ulcer, underwent wound vac treatment and IV antibiotics. She was abruptly released from the [facility] after only a few weeks, before end of therapy. She had finished her IV antibiotics for Grp A strep osteomyelitis at home and continued with PT at home as well. She has decided to go with the conservative care route since she feels that her quality of life is more important than healing out the wound but had continued to keep the wound vac. The wound vac was discontinued by her insurance for failure to show improvement in the size of her wound. She has been seen twice monthly for conservative/palliative/complex care of her bilateral ischial pressure ulcers. She lives with her brother and [id number], who help dress her ulcers/wounds. She has recently developed a skin tear/abrasion of the left buttock/upper posterior thigh. Current management involves the use of collagenase Santyl topically to the skin tear on the left posterior upper thigh, and Aquacel with respect to the ischial pressure ulcerations. The patient has recently completed courses of antibiotics which have included Augmentin and clindamycin. In January 2017, she underwent treatment after developing pressure ulcers which occurred from urinary incontinence issues associated with a chronic UTI and leakage of her catheter. She developed another pressure ulcer of her right buttock on or around April 20, 2017, and presented for treatment of this area as well as continued treatment of her left ischial pressure ulcer. Denies fever, chills or increased pain. The patient indicates that she sleeps on an air loss mattress, and possesses a Roho cushion for her wheelchair. She has previously been counseled as to the importance of offloading measures. She also has been taking Sigifredo protein shakes, and is aware that optimizing glycemic control is advisable. Review of recent laboratory studies reveals a protein of 8.6, albumin 3.2, and hemoglobin A1c of 6.9, on June 03, 2017. Patient is essentially nonambulatory, and uses a walker for transition from bed to chair. She is severely deconditioned. Past Medical History Past Medical History: Chronic Problems Open wound of left thigh (Chronic) traumatic skin tear posterior thigh Incompetent urethral closure mechanism (Chronic) Neurogenic bladder (Chronic) Stage II pressure ulcer (Chronic) Chronic suprapubic catheter (Chronic) Diabetes mellitus type 2 in nonobese (Chronic) Hypertension (Chronic) Gout (Chronic) with arthropathy Diabetes mellitus (Chronic) Pressure ulcer of right buttock, stage 3 (Chronic) Diabetic neuropathy, type II diabetes mellitus (Chronic) Malnutrition (Chronic) Back pain (Chronic) Arthritis (Chronic) 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 significance to followup Anemia of chronic disease (Chronic) Physical deconditioning (Chronic) Dupuytren's contracture of right hand (Chronic) Spinal stenosis (Chronic) Hyperlipidemia (Chronic) RP (rectal prolapse) (Chronic) Surgical History: - - Surgery for rectal prolapse with anterior resection and rectopexy at [facility] in 2008 and back surgery 1979. Colostomy was November 2012. She had blood transfusions in October 2012 at [facility] for blood loss anemia. excision left ischial pressure sore with partial ostectomy for osteomyelitis and excision right ischial pressure sore and excision left lateral ankle pressure sore with partial ostectomy for osteomyelitis in 08/01. Ab0. Allergies/Adverse Reactions: Allergies No Known Allergies Allergy (Verified 07/01/17 10:11) Home Medications: Ambulatory Orders Medication Instructions Recorded Allopurinol [Zyloprim] 100 mg PO BID 07/05/14 Latanoprost 0.005% [Xalatan 1 drop EACH EYE QHS 07/05/14 Opthalmic] Losartan Potassium [Cozaar] 25 mg PO DAILY 07/05/14 - Family History Maternal Diabetes, Hypertension Paternal Diabetes, Hypertension Smoking Status: Never smoker Tobacco Use: Non-smoker Review of Systems Constitutional: Denies: Chills, Fever, Weight Change Eyes: Denies: Pain, Vision Change HEENT: Denies: Difficulty Hearing, Difficulty Swallowing, Sinus Congestion Cardiovascular: Denies: Chest Pain, Palpitations Respiratory: Denies: Cough, Shortness of Breath Gastrointestinal: Denies: Diarrhea, Nausea, Vomiting Genitourinary: Denies: Dysuria, Hematuria Endocrine: Denies: Heat/ Cold Intolerance, Polydipsia, Polyuria Hematologic/ Lymphatic: Denies: Easy Bruising, Easy Bleeding - Physical Exam Vital Signs Temp Pulse Resp BP 97.3 F L 108 H 16 126/71 H 08/24/17 13:29 08/24/17 13:29 08/24/17 13:29 08/24/17 13:29 General: Alert, Oriented x3, Cooperative, No apparent distress, Well developed, Well nourished HEENT: Atraumatic, PERRLA, EOMI, Normocephalic Oral: Moist Mucosa Neck: No JVD Lungs: Normal air movement Abdomen: Non-Distended Extremities: No clubbing, No cyanosis, No edema, No Calf Tenderness Skin: - - An open ulceration is noted on the left upper posterior thigh. The base of the ulceration is generally pink, with some necrotic tissue noted centrally. Dimensions are documented elsewhere. A stage III ischial pressure ulceration is noted over the right issue him. A stage IV ischial pressure ulceration is noted overlying the left ischium. Dimensions are documented elsewhere. There is no obvious sign of infection or cellulitis. The right ischial pressure ulceration is generally pink and healthy in appearance, with active granulation tissue. The left tissue pressure ulceration appears to extend down to bone. Wound Measurements and Assessment WC - Nurse 1 - General Ulcer Measurement Start: 08/24/17 13:29 Freq: Status: Active Protocol: Activity Type Activity Date Activity User E-Sign Co-Sign Detail Recorded Client Recorded Date Recorded By Document 08/24/17 13:[address] [facility] [id number] 08/24/17 13:[address] [facility] Wound Center Nurse 1 [Ulcer Assessment] #11 left upper thigh -Combined with other wound No -Current Size (cm) - Length 3.9 -Current Size (cm) - Width 2.4 -Current Size (cm) - Depth 0.1 Neurological: Cranial nerves II-XII grossly intact Psych/Mental Status: Normal Affect, Appropriate, Alert and oriented to time, place, person, mood and affect Debridement Note Laterality: Right - Ischium Type of Debridement: Excisional debridement Anesthesia Used: 4% Lidocaine Solution Percentage of wound debrided: 100 Instrument Used: 5mm curette Severity: Fat Layer Exposed Amount of bleeding with debridement: Mild Bleeding Controlled with: Compression and gauze Patient tolerated procedure well - Additional Wound Laterality: Left - Ischium Type of Debridement: Excisional debridement Anesthesia Used: 4% Lidocaine Solution Depth: Down to and including healthy tissue, in the subcutaneous layer Percentage of wound debrided: 100 Instrument Used: 5mm curette Severity: Fat Layer Exposed Amount of bleeding with debridement: Mild Bleeding Controlled with: Compression and gauze Patient tolerated procedure: Patient tolerated procedure well - Additional Wound Laterality: Left - Upper posterior thigh Type of Debridement: Excisional debridement Anesthesia Used: 4% Lidocaine Solution Depth: Down to and including healthy tissue, in the subcutaneous layer Percentage of wound debrided: 100 Instrument Used: 5mm curette Severity: Fat Layer Exposed Amount of bleeding with debridement: Mild Bleeding Controlled with: Compression and gauze Patient tolerated procedure: Patient tolerated procedure well Assessment/Plan Active Problems Open wound of left thigh (Chronic) traumatic skin tear posterior thigh Stage II pressure ulcer (Chronic) Pressure ulcer of right buttock, stage 3 (Chronic) Diabetic neuropathy, type II diabetes mellitus (Chronic) chronic osteomyelitis left ischial area (Chronic) Pressure sore of left ischium, stage 4 (Chronic) Spinal stenosis (Chronic) Assessment: This is a 67-year-old female with bilateral ischial pressure ulcerations. She also has an ulceration of the left buttock/posterior upper thigh. The patient has chosen to forego aggressive surgical management in the past, choosing rather to pursue more conservative treatment modalities. She is currently on a complex care regimen. Offloading measures are to be continued. We are to continue the use of Aquacel Silver topically to each of the ischial pressure ulcerations. Collagenase Santyl will be continued relative to the left upper posterior thigh ulceration. Optimization of her diabetes mellitus has been recommended. Optimizing nutrition has also been reinforced. The patient does not wish to consider a more aggressive approach which would involve surgical options. She has rebuffed the idea of consultation with a plastic surgeon. Recent CT scan of the pelvis, performed 08/05/2017, reveals no evidence of osteomyelitis. She is eager for the return of her primary wound healing center physician, Dr. Bull, who is currently on maternity leave. Plan: As above. Will return in 2 weeks for reassessment. Optimizing nutrition and diabetes control has been recommended. Offloading measures and frequent repositioning are to continue. She had a suprapubic catheter placed on 07/08/17. At the time that it was to be replaced, her urologist was unable to replace the suprapubic catheter, and the patient is scheduled for surgical replacement in the near future. She is currently without a suprapubic catheter. Patient has been encouraged to increase protein intake to aid in wound healing and maintain good control of diabetes. Discussed offloading importance in wound healing. We are to continue Aquacel silver for the ischial pressure ulcerations, and collagenase Santyl topically on the left posterior upper thigh ulceration. F/U in 2 weeks. Influenza vaccine was not administered today. The patient is not a smoker. Patient weighs 166 pounds. She stands 5 feet 2 inches tall. BMI is 30.4. This places the patient in a class I category. Weight loss has been recommended, to be discussed by the patient with her primary care physician. 08/24/17 1427 <Electronically signed by Joaquín Lind MD> Date Joaquín Lind MD CC: Signed WOUND CTR HISTORY Observed: 08/10/2017 Status: F Source: SARAH AND PHYSICAL 3:42 PM [facility] [place] [facility] Wound Healing Center [address] [place] [address] Wound Ctr History AND Physical 08/10/17 1530 MR#: [id number] Acct: [id number] Name: VAZQUEZ ZAMBRANO Rep #: [id number] : 1950 67 From: Joaquín Lind MD PCP: Power Esquivel MD Status: REG RCR Y Location: WC (1) Chronic suprapubic catheter Status: Chronic Current Visit: No Code(s): Z93.59 - Other cystostomy status (2) Open wound of left thigh Status: Chronic Current Visit: Yes Qualifiers: Encounter type: subsequent encounter Qualified Code(s): S71.102D - Unspecified open wound, left thigh, subsequent encounter Code(s): S71.102A - Unspecified open wound, left thigh, initial encounter Comment: traumatic skin tear posterior thigh (3) Neurogenic bladder Status: Chronic Current Visit: No Code(s): N31.9 - Neuromuscular dysfunction of bladder, unspecified (4) Stage II pressure ulcer Status: Chronic Current Visit: Yes Qualifiers: Code(s): L89.92 - Pressure ulcer of unspecified site, stage 2 (5) Diabetes mellitus type 2 in nonobese Status: Chronic Current Visit: Yes Code(s): E11.9 - Type 2 diabetes mellitus without complications (6) Hypertension Status: Chronic Current Visit: No Qualifiers: Code(s): I10 - Essential (primary) hypertension (7) Gout Status: Chronic Current Visit: No Code(s): M10.9 - Gout, unspecified Comment: with arthropathy (8) Pressure ulcer of left buttock, stage 3 Status: Resolved Current Visit: No Code(s): L89.323 - Pressure ulcer of left buttock, stage 3 (9) Pressure ulcer of left buttock, stage 2 Status: Acute Current Visit: Yes Code(s): L89.322 - Pressure ulcer of left buttock, stage 2 (10) Diabetes mellitus Status: Chronic Current Visit: Yes Qualifiers: Diabetes mellitus type: type 2 Code(s): E11.9 - Type 2 diabetes mellitus without complications (11) Pressure ulcer of right buttock, stage 3 Status: Chronic Current Visit: Yes Code(s): L89.313 - Pressure ulcer of right buttock, stage 3 (12) Diabetic neuropathy, type II diabetes mellitus Status: Chronic Current Visit: Yes Code(s): E11.40 - Type 2 diabetes mellitus with diabetic neuropathy, unspecified (13) Colostomy in place Status: Chronic Current Visit: Yes Code(s): Z93.3 - Colostomy status (14) chronic osteomyelitis left ischial area Status: Chronic Current Visit: Yes (15) Pressure sore of left ischium, stage 4 Status: Chronic Current Visit: Yes Code(s): L89.324 - Pressure ulcer of left buttock, stage 4 (16) Anemia of chronic disease Status: Chronic Current Visit: No Code(s): D63.8 - Anemia in other chronic diseases classified elsewhere (17) Physical deconditioning Status: Chronic Current Visit: Yes Code(s): R53.81 - Other malaise (18) Spinal stenosis Status: Chronic Current Visit: No Qualifiers: Code(s): M48.00 - Spinal stenosis, site unspecified (19) Hyperlipidemia Status: Chronic Current Visit: No Code(s): E78.5 - Hyperlipidemia, unspecified (20) RP (rectal prolapse) Status: Chronic Current Visit: No Code(s): K62.3 - Rectal prolapse History of Present Illness Date of Service: 08/10/17 Chief Complaint: Left ischial pressure ulcer, Stage IV. Right ischial pressure ulcer, stage III. Spinal stenosis. Ulceration of left buttock. History of Wound: Patient is a 67-year-old female who has a chronic pressure ulcer of her left ischium and right ischium. Patient was initially hospitalized for a swelling and redness of her right leg approximately 2015. This was evaluated for cellulitis. She was seen in consultation by infectious disease and plastic surgery. The patient was taken to surgery for an operative debridement of her chronic left ischial ulcer, underwent wound vac treatment and IV antibiotics. She was abruptly [facility] from the [facility] after only a few weeks, before end of therapy. She had finished her IV antibiotics for Grp A strep osteomyelitis at home and continued with PT at home as well. She has decided to go with the conservative care route since she feels that her quality of life is more important than healing out the wound but had continued to keep the wound vac. The wound vac was discontinued by her insurance for failure to show improvement in the size of her wound. She has been seen twice monthly for conservative/palliative/complex care of her bilateral ischial pressure ulcers. She lives with her brother and [id number], who help address her ulcers/wounds. She has recently developed a skin tear/abrasion of the left buttock/upper posterior thigh. Current management involves the use of Rain topically to the skin tear on the left posterior upper thigh, and Aquacel with respect to the ischial pressure ulcerations. The patient has recently completed courses of antibiotics which have included Augmentin and clindamycin. In January 2017, she underwent treatment after developing pressure ulcers which occurred from urinary incontinence issues associated with a chronic UTI and leakage of her catheter. She developed another pressure ulcer of her right buttock on or around April 20, 2017, and presented for treatment of this area as well as continued treatment of her left ischial pressure ulcer. Denies fever, chills or increased pain. The patient indicates that she sleeps on an air loss mattress, and possesses a Roho cushion for her wheelchair. She has previously been counseled as to the importance of offloading measures. She also has been taking Sigifredo protein shakes, and is aware that optimizing glycemic control is advisable. Review of recent laboratory studies reveals a protein of 8.6, albumin 3.2, and hemoglobin A1c of 6.9, on June 03, 2017. Patient is essentially nonambulatory, and uses a walker for transition from bed to chair. She is severely deconditioned. Past Medical History Past Medical History: Chronic Problems Open wound of left thigh (Chronic) traumatic skin tear posterior thigh Neurogenic bladder (Chronic) Stage II pressure ulcer (Chronic) Chronic suprapubic catheter (Chronic) Diabetes mellitus type 2 in nonobese (Chronic) Hypertension (Chronic) Gout (Chronic) with arthropathy Diabetes mellitus (Chronic) Pressure ulcer of right buttock, stage 3 (Chronic) Diabetic neuropathy, type II diabetes mellitus (Chronic) Malnutrition (Chronic) Back pain (Chronic) Arthritis (Chronic) 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 significance to followup Anemia of chronic disease (Chronic) Physical deconditioning (Chronic) Dupuytren's contracture of right hand (Chronic) Spinal stenosis (Chronic) Hyperlipidemia (Chronic) RP (rectal prolapse) (Chronic) Surgical History: - - Surgery for rectal prolapse with anterior resection and rectopexy at [facility] in 2008 and back surgery 1979. Colostomy was November 2012. She had blood transfusions in October 2012 at [facility] for blood loss anemia. excision left ischial pressure sore with partial ostectomy for osteomyelitis and excision right ischial pressure sore and excision left lateral ankle pressure sore with partial ostectomy for osteomyelitis in 08/01. Ab0. Allergies/Adverse Reactions: Allergies No Known Allergies Allergy (Verified 07/01/17 10:11) Home Medications: Ambulatory Orders Medication Instructions Recorded Allopurinol [Zyloprim] 100 mg PO BID 07/05/14 Latanoprost 0.005% [Xalatan 1 drop EACH EYE QHS 07/05/14 Opthalmic] Losartan Potassium [Cozaar] 25 mg PO DAILY 07/05/14 - Family History Maternal Diabetes, Hypertension Paternal Diabetes, Hypertension Lives: With Family - Patient lives with her brother and [id number]. Smoking Status: Never smoker Tobacco Use: Non-smoker Alcohol: None Drugs: None Review of Systems Constitutional: Denies: Chills, Fever, Weight Change Eyes: Denies: Pain, Vision Change HEENT: Denies: Difficulty Hearing, Difficulty Swallowing, Sinus Congestion Cardiovascular: Denies: Chest Pain, Palpitations Respiratory: Denies: Cough, Shortness of Breath Gastrointestinal: Denies: Diarrhea, Nausea, Vomiting Genitourinary: Denies: Dysuria, Hematuria Endocrine: Denies: Heat/ Cold Intolerance, Polydipsia, Polyuria Hematologic/ Lymphatic: Denies: Easy Bruising, Easy Bleeding - Physical Exam Vital Signs Temp Pulse Resp BP 98.0 F 76 18 132/76 H 08/10/17 13:57 08/10/17 13:57 08/10/17 13:57 08/10/17 13:57 General: Alert, Oriented x3, Cooperative, No apparent distress, Well developed, Well nourished, - - The patient is severely deconditioned and does not ambulate. HEENT: Atraumatic, PERRLA, EOMI, Normocephalic Oral: Moist Mucosa Neck: No JVD Lungs: Normal air movement Abdomen: Non-Distended, Obese Extremities: No clubbing, No cyanosis, No edema Skin: - - A large stage III ischial pressure ulceration is noted on the right side. There is a moderate amount of bioburden. Stage IV left ischial pressure ulcerations present, appearing to extend down to bone. An ulceration is also noted on the left buttock, which is somewhat superficial in nature, extending through the dermal layers and into the subcutaneous tissue. The dimensions of each of the ulcerations as noted elsewhere. Wound Measurements and Assessment WC - Nurse 1 - General Ulcer Measurement Start: 07/27/17 13:14 Freq: Status: Active Protocol: Activity Type Activity Date Activity User E-Sign Co-Sign Detail Recorded Client Recorded Date Recorded By Document 08/10/17 13:57 DV [id number] 08/10/17 14:17 DV Wound Center Nurse 1 [Ulcer Assessment] WC - Nurse 2 - General Ulcer CM Notes Start: 07/27/17 13:14 Freq: Status: Active Protocol: Activity Type Activity Date Activity User E-Sign Co-Sign Detail Recorded Client Recorded Date Recorded By Document 08/10/17 15:23 DV [id number] 08/10/17 15:25 DV Wound Center Nurse 2 [Procedure/Treatment] #11 left upper thigh -Time 15:24 -Correct Patient Yes Musculoskeletal: Muscle Wasting Neurological: Cranial nerves II-XII grossly intact Psych/Mental Status: Normal Affect, Appropriate, Alert and oriented to time, place, person, mood and affect Debridement Note Post-Debridement Measurements/Treatment - Nurse 2 - General Ulcer CM Notes Start: 07/27/17 13:14 Freq: Status: Active Protocol: Activity Type Activity Date Activity User E-Sign Co-Sign Detail Wound Center Nurse 2 #11 left upper thigh -Time 13:41 15:24 -Correct Patient Yes Yes Laterality: Right - Initial ulceration Type of Debridement: Excisional debridement Anesthesia Used: 4% Lidocaine Solution Depth: Down to and including healthy tissue, in the subcutaneous layer Instrument Used: 5mm curette Severity: Fat Layer Exposed Amount of bleeding with debridement: Mild Bleeding Controlled with: Compression and gauze Patient tolerated procedure well - Additional Wound Laterality: Left - Buttock Type of Debridement: Excisional debridement Anesthesia Used: 4% Lidocaine Solution Depth: Down to and including healthy tissue, in the subcutaneous layer Percentage of wound debrided: 100 Instrument Used: 5mm curette Severity: Fat Layer Exposed Amount of bleeding with debridement: Mild Bleeding Controlled with: Compression and gauze Patient tolerated procedure: Patient tolerated procedure well Assessment/Plan Clinical Impression(s) from Imaging Studies Pelvis X-Ray 08/05/17 12:58 IMPRESSION: Chronic changes appear stable in the left inferior pubic ramus. There is no obvious bone destruction or evidence of osteomyelitis on this radiograph. If further evaluation is needed, an MRI or nuclear medicine scan can be considered. 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 Electronically Signed: Essie Campbell MD at 12:52 EDT Tel Direct: [phone], Service support , Active Problems Open wound of left thigh (Chronic) traumatic skin tear posterior thigh Stage II pressure ulcer (Chronic) Diabetes mellitus type 2 in nonobese (Chronic) Pressure ulcer of left buttock, stage 2 (Acute) Diabetes mellitus (Chronic) Pressure ulcer of right buttock, stage 3 (Chronic) Diabetic neuropathy, type II diabetes mellitus (Chronic) Colostomy in place (Chronic) chronic osteomyelitis left ischial area (Chronic) Pressure sore of left ischium, stage 4 (Chronic) Physical deconditioning (Chronic) Assessment: This is a 67-year-old female with bilateral ischial pressure ulcerations. She also has an ulceration of the left buttock/posterior upper thigh. The patient has chosen to forego aggressive surgical management in the past, choosing rather to pursue more conservative treatment modalities. She is currently on a complex care regimen. Offloading measures are to be continued. The patient's ischial pressure ulcerations are quite exudative, we are to consider a change to a product such as MelgiSorb for absorption of the drainage. Collagenase Santyl is to be great with reference to the left buttock ulceration, as there is a significant amount of topical bioburden. Optimization of her diabetes mellitus has been recommended. Optimizing nutrition has also been reinforced. The patient does not wish to consider a more aggressive approach which would involve surgical options. She has rebuffed the idea of consultation with a plastic surgeon. Recent CT scan of the pelvis, performed 08/05/2017, reveals no evidence of osteomyelitis. She is eager for the return of her primary wound healing center physician, Dr. Bull, who is currently on maternity leave. Plan: As above. Will return in 2 weeks for reassessment. Optimizing nutrition and diabetes control has been recommended. Offloading measures and frequent repositioning are to continue. She had a suprapubic catheter placed on 07/08/17. Encouraged to increase protein intake to aid in wound healing and maintain good control of diabetes. Discussed offloading importance in wound healing. We are to use MelgiSorb for the initial ulcerations, and collagenase Santyl topically on the left buttock ulceration. F/U in 2 weeks. Influenza vaccine was not administered today. The patient is not a smoker. Patient weighs 166 pounds. She stands 5 feet 2 inches tall. BMI is 30.4. This places the patient in a class I category. Weight loss has been recommended, to be discussed by the patient with her primary care physician. 08/10/17 1542 <Electronically signed by Joaquín Lind MD> Date Joaquín Lind MD CC: Signed PELVIS 1 OR 2 VIEWS Observed: 08/05/2017 Status: F Source: [place] 12:54 PM [facility] [place] [facility] Imaging Services [address] [place] [id number] Pelvis 1 or 2 Views MR#: [id number] Acct: [id number] Name: VAZQUEZ ZAMBRANO Rep #: [id number] : 1950 F 67 From: Essie Campbell MD PCP: Power Esquivel MD Status: REG RCR Study: Pelvis 1 or 2 Views Date of Exam: 08/05/17 Exam# [id number] Ordering Dr: Joaquín Lind MD STUDY: X-RAY - PELVIS REASON FOR EXAM: Female, 67 years old. Soft tissue ulcer TECHNIQUE: One view of the pelvis was obtained. COMPARISON: CT pelvis dated June 14, 2014 FINDINGS: There is a non-specific bowel gas pattern. There are coarse ossific densities again seen in the soft tissues inferior to the left inferior pubic ramus. There are moderate degenerative changes in the lower lumbar spine. There are degenerative changes in both sacroiliac joints. There is minimal coarse thickening of the left inferior pubic ramus. Normal appearing pubic symphysis. The visualized ischial tuberosities are unremarkable. There is demineralization of the proximal right femur. The right acetabulum shows no significant abnormalities. There is mild articular joint space narrowing of the right hip. There is demineralization of the proximal left femur. The left acetabulum shows no significant abnormalities. There is mild articular joint space narrowing of the left hip. RAD/Pelvis 1 or 2 Views IMPRESSION: Chronic changes appear stable in the left inferior pubic ramus. There is no obvious bone destruction or evidence of osteomyelitis on this radiograph. If further evaluation is needed, an MRI or nuclear medicine scan can be considered. 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 WOUND CTR HISTORY Observed: 07/27/2017 Status: F Source: [facility] 2:17 PM [facility] [place] [facility] Wound Healing Center [address] [place] [id number] Wound Ctr History AND Physical 07/27/17 1356 MR#: [id number] Acct: [id number] Name: VAZQUEZ ZAMBRANO Rep #: [id number] : 1950 67 From: Joaquín Lind MD PCP: Power Esquivel MD Status: REG RCR Y Location: (1) Chronic suprapubic catheter Status: Chronic Current Visit: No Code(s): Z93.59 - Other cystostomy status (2) Open wound of left thigh Status: Chronic Current Visit: Yes Qualifiers: Encounter type: initial encounter Qualified Code(s): S71.102A - Unspecified open wound, left thigh, initial encounter Code(s): S71.102A - Unspecified open wound, left thigh, initial encounter Comment: traumatic skin tear posterior thigh (3) Neurogenic bladder Status: Chronic Current Visit: No Code(s): N31.9 - Neuromuscular dysfunction of bladder, unspecified (4) Stage II pressure ulcer Status: Chronic Current Visit: No Qualifiers: Code(s): L89.92 - Pressure ulcer of unspecified site, stage 2 (5) Diabetes mellitus type 2 in nonobese Status: Chronic Current Visit: No Code(s): E11.9 - Type 2 diabetes mellitus without complications (6) Hypertension Status: Chronic Current Visit: No Qualifiers: Code(s): I10 - Essential (primary) hypertension (7) Gout Status: Chronic Current Visit: No Code(s): M10.9 - Gout, unspecified Comment: with arthropathy (8) Pressure ulcer of left buttock, stage 3 Status: Resolved Current Visit: No Code(s): L89.323 - Pressure ulcer of left buttock, stage 3 (9) Pressure ulcer of left buttock, stage 2 Status: Acute Current Visit: No Code(s): L89.322 - Pressure ulcer of left buttock, stage 2 (10) Diabetes mellitus Status: Chronic Current Visit: Yes Qualifiers: Diabetes mellitus type: type 2 Code(s): E11.9 - Type 2 diabetes mellitus without complications (11) Pressure ulcer of right buttock, stage 3 Status: Chronic Current Visit: Yes Code(s): L89.313 - Pressure ulcer of right buttock, stage 3 (12) Diabetic neuropathy, type II diabetes mellitus Status: Chronic Current Visit: Yes Code(s): E11.40 - Type 2 diabetes mellitus with diabetic neuropathy, unspecified (13) Colostomy in place Status: Chronic Current Visit: Yes Code(s): Z93.3 - Colostomy status (14) chronic osteomyelitis left ischial area Status: Chronic Current Visit: Yes (15) Pressure sore of left ischium, stage 4 Status: Chronic Current Visit: Yes Code(s): L89.324 - Pressure ulcer of left buttock, stage 4 (16) Anemia of chronic disease Status: Chronic Current Visit: No Code(s): D63.8 - Anemia in other chronic diseases classified elsewhere (17) Physical deconditioning Status: Chronic Current Visit: Yes Code(s): R53.81 - Other malaise (18) Spinal stenosis Status: Chronic Current Visit: No Qualifiers: Code(s): M48.00 - Spinal stenosis, site unspecified (19) Hyperlipidemia Status: Chronic Current Visit: No Code(s): E78.5 - Hyperlipidemia, unspecified (20) RP (rectal prolapse) Status: Chronic Current Visit: No Code(s): K62.3 - Rectal prolapse History of Present Illness Date of Service: 07/27/17 Chief Complaint: Left ischial pressure sore, Stage IV. Right ischial pressure ulcer, stage III. Spinal stenosis History of Wound: Patient is a 67-year-old female who has a chronic pressure ulcer of her left ischium and right ischium. Patient was initially hospitalized for a swelling and redness of her right leg approximately 2014. This was evaluated for cellulitis. She was seen in consultation by infectious disease and plastic surgery. The patient was taken to surgery for an operative debridement of her chronic left ischial ulcer, underwent wound vac treatment and IV antibiotics. She was abruptly released from the ECF after only a few weeks, before end of therapy. She had finished her IV antibiotics for Grp A strep osteomyelitis at home and continued with PT at home as well. She has decided to go with the conservative care route since she feels that her quality of life is more important than healing out the wound but had continued to keep the wound vac. The wound vac was discontinued by her insurance for failure to show improvement in the size of her wound. She has been seen twice monthly for conservative/palliative/complex care of her bilateral ischial pressure ulcers. She lives with her brother and [id number], who help address her ulcers/wounds. She has recently developed a skin tear/abrasion of the left buttock/upper posterior thigh. Current management involves the use of Rain topically to the skin tear on the left posterior upper thigh, and Aquacel with respect to the ischial pressure ulcerations. She has started getting pressure ulcers of her right buttocks. January 2017, she underwent treatment after developing pressure ulcers which occurred from urinary incontinence issues associated with a chronic UTI and leakage of her catheter. She developed another pressure ulcer of her right buttock on or around April 20, 2017 and presents for treatment of this area as well as continued treatment of her left ischial pressure ulcer. Denies fever, chills or increased pain. The patient indicates that she sleeps on an air loss mattress, and possesses a Roho cushion for her wheelchair. She has previously been counseled as to the importance of offloading measures. She also has been taking Sigifredo protein shakes, and is aware that optimizing glycemic control is advisable. Review of recent laboratory studies reveals a protein of 8.6, albumin 3.2, and hemoglobin A1c of 6.9, on June 03, 2017. Patient is essentially nonambulatory, and uses a walker for transition from bed to chair. She is severely deconditioned. Past Medical History Past Medical History: Chronic Problems Open wound of left thigh (Chronic) traumatic skin tear posterior thigh Neurogenic bladder (Chronic) Stage II pressure ulcer (Chronic) Chronic suprapubic catheter (Chronic) Diabetes mellitus type 2 in nonobese (Chronic) Hypertension (Chronic) Gout (Chronic) with arthropathy Diabetes mellitus (Chronic) Pressure ulcer of right buttock, stage 3 (Chronic) Diabetic neuropathy, type II diabetes mellitus (Chronic) Malnutrition (Chronic) Back pain (Chronic) Arthritis (Chronic) 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 significance to followup Anemia of chronic disease (Chronic) Physical deconditioning (Chronic) Dupuytren's contracture of right hand (Chronic) Spinal stenosis (Chronic) Hyperlipidemia (Chronic) RP (rectal prolapse) (Chronic) Surgical History: - - Surgery for rectal prolapse with anterior resection and rectopexy at [facility] in 2008 and back surgery 1979. Colostomy was November 2012. She had blood transfusions in October 2012 at [facility] for blood loss anemia. excision left ischial pressure sore with partial ostectomy for osteomyelitis and excision right ischial pressure sore and excision left lateral ankle pressure sore with partial ostectomy for osteomyelitis in 08/01. Ab0. Allergies/Adverse Reactions: Allergies No Known Allergies Allergy (Verified 07/01/17 10:11) Home Medications: Ambulatory Orders Medication Instructions Recorded Allopurinol [Zyloprim] 100 mg PO BID 07/05/14 Latanoprost 0.005% [Xalatan 1 drop EACH EYE QHS 07/05/14 Opthalmic] Losartan Potassium [Cozaar] 25 mg PO DAILY 07/05/14 - Family History Maternal Diabetes, Hypertension Paternal Diabetes, Hypertension Lives: With Family - Patient lives with her brother and [id number]. Smoking Status: Never smoker Tobacco Use: Non-smoker Alcohol: None Drugs: None Review of Systems Constitutional: Denies: Chills, Fever, Weight Change Eyes: Denies: Pain, Vision Change HEENT: Denies: Difficulty Hearing, Difficulty Swallowing, Sinus Congestion Cardiovascular: Denies: Chest Pain, Palpitations Respiratory: Denies: Cough, Shortness of Breath Gastrointestinal: Denies: Diarrhea, Nausea, Vomiting Genitourinary: Denies: Dysuria, Hematuria Endocrine: Denies: Heat/ Cold Intolerance, Polydipsia, Polyuria Hematologic/ Lymphatic: Denies: Easy Bruising, Easy Bleeding - Physical Exam Vital Signs Temp Pulse Resp BP 97.5 F L 116 H 16 141/69 H 07/27/17 13:14 07/27/17 13:14 07/27/17 13:14 07/27/17 13:14 General: Alert, Oriented x3, Cooperative, No apparent distress, Well developed, Well nourished, - - The patient is severely deconditioned. HEENT: Atraumatic, PERRLA, EOMI, Normocephalic Oral: Moist Mucosa, No Gingival or Mucosal Lesions/ Ulcerations Neck: Supple, No JVD, Negative Carotid Bruits, Negative Hepatojugular Reflux, No Nodes, No Nuchal Rigidity, Trachea Midline Lungs: Clear to auscultation, Normal air movement, No rhonchi, No wheeze, No rales Cardiovascular: Regular rate, Regular Rhythm, Normal S1, Normal S2, No murmurs, No Ectopic Activity Abdomen: Soft, Non Tender, Non-Distended, - - A colostomy and suprapubic catheter are noted. Colostomy is functional, and appears viable. Extremities: No clubbing, No cyanosis, No edema, No Calf Tenderness Skin: - - Bilateral ischial pressure ulcerations are noted. The left ischial pressure ulceration is small, and appears to track down to bone. The right ischial pressure ulcer is larger in size, and dimensions are documented elsewhere. A superficial ulceration is noted on the left upper posterior thigh, dimensions of which are documented elsewhere. Wound Measurements and Assessment WC - Nurse 1 - General Ulcer Measurement Start: 07/27/17 13:14 Freq: Status: Active Protocol: Activity Type Activity Date Activity User E-Sign Co-Sign Detail Recorded Client Recorded Date Recorded By Document 07/27/17 13:14 DL [id number] 07/27/17 13:24 DL Wound Center Nurse 1 [Ulcer Assessment] #11 left upper thigh -Combined with other wound No -Current Size (cm) - Length 4 Musculoskeletal: Muscle Wasting Neurological: Cranial nerves II-XII grossly intact Psych/Mental Status: Normal Affect, Appropriate, Alert and oriented to time, place, person, mood and affect Debridement Note Laterality: Right - Upper posterior thigh Type of Debridement: Excisional debridement Anesthesia Used: 4% Lidocaine Solution Depth: Down to and including healthy tissue, in the subcutaneous layer Percentage of wound debrided: 100 Instrument Used: 5mm curette Severity: Fat Layer Exposed Amount of bleeding with debridement: Mild Bleeding Controlled with: Compression and gauze Patient tolerated procedure well - Additional Wound Laterality: Right - Ischium Type of Debridement: Excisional debridement Anesthesia Used: 4% Lidocaine Solution Depth: Down to and including healthy tissue, in the subcutaneous layer Percentage of wound debrided: 100 Instrument Used: 5mm curette Severity: Fat Layer Exposed Amount of bleeding with debridement: Mild Bleeding Controlled with: Compression and gauze Patient tolerated procedure: Patient tolerated procedure well Assessment/Plan Active Problems Open wound of left thigh (Chronic) traumatic skin tear posterior thigh Diabetes mellitus (Chronic) Pressure ulcer of right buttock, stage 3 (Chronic) Diabetic neuropathy, type II diabetes mellitus (Chronic) Colostomy in place (Chronic) chronic osteomyelitis left ischial area (Chronic) Pressure sore of left ischium, stage 4 (Chronic) Physical deconditioning (Chronic) Assessment: This is a 67-year-old female with bilateral ischial pressure ulcerations. She also has an ulceration of the left buttock/posterior upper thigh. The patient has chosen to forego aggressive surgical management in the past, choosing rather to pursue more conservative treatment modalities. She is currently on a complex care regimen. Offloading measures are to be continued. We are to continue the use of Aquacel silver on each of the ischial pressure ulcerations, and Rain relative to the ulceration on the left upper posterior thigh. It appears as though the patient has, in the past, demonstrated evidence of noncompliance with recommended measures. Optimization of her diabetes mellitus has been recommended. Optimizing nutrition has also been reinforced. The patient does not wish to consider a more aggressive approach which would involve surgical options. Plan: As above. Will return in 2 weeks for reassessment. Optimizing nutrition and diabetes control has been recommended. Aquacel will be continued topically relative to the ischial pressure ulcerations. Asthma will be continued relative to the ulceration on the left upper posterior thigh. Offloading measures and frequent repositioning are to continue. She had a suprapubic catheter placed on 07/08/17. Encouraged to increase protein intake to aid in wound healing and maintain good control of diabetes. Discussed offloading importance in wound healing. F/U in 2 weeks. Influenza vaccine was not administered today. The patient is not a smoker. Patient weighs 166 pounds. She stands 5 feet 2 inches tall. BMI is 30.4. This places the patient in a class I category. Weight loss has been recommended, to be discussed by the patient with her primary care physician. 07/27/17 1417 <Electronically signed by Joaquín Lind MD> Date Joaquín Lind MD CC: Signed Observed: 07/17/2017 Status: F Source: [facility], [place] 3:15 PM [facility] [place] [facility] Comments: LEEFT POSTERIOR UPPER THIGH ULCER Gram Stain Gram Stain 2+ Red Blood Cells No White Blood Cells No organisms seen Wound Culture #2 There are no CLSI standards for interpretation of this Drug/Organism combination. ORGANISM 1: Proteus mirabilis Amount Growth 1+ ORGANISM 2: Corynebacterium striatum Amount Growth 2+ Proteus mirabilis: REACTION Ampicillin $ >=32 R Ampicillin/Sulbactam $ >=32 R Cefazolin $ 8 S Cefepime $ <=1 S Ceftriaxone $ <=1 S Ciprofloxacin $ >=4 R Ertapenim $$$ <=0.5 S Gentamicin $ <=1 S Levofloxacin $ >=8 R Piperacillin/Tazobactam $$ <=4 S Tobramycin $ <=1 S Trimethoprim/Sulfametho $ >=320 R (NF) indicates non-formulary drug at [facility]. Approval by Infectious Disease Specialist required before non-formulary drugs may be ordered and/or dispensed. Cult, Anaerobic No anaerobic bacteria isolated. Performed By: #### M100.1500 #### [facility] [address] [place], [address] BEDSIDE GLUCOSE Collected: 07/08/2017 Status: F Source: [place] 12:17 PM [facility] [place] [facility] TYPE CODE TESTS RESULT OUT OF RANGE REFERENCE UNITS LAB L501.080 70-110 mg/dL Normal BEDSIDE GLU 109 Result Comment: MANAGEMENT OF PATIENT CARE PER NURSING PROTOCOL Performed By: #### L501.080 #### [facility] Point of Care [address] [facility] [place] [address] OPERATIVE REPORT Observed: 07/08/2017 Status: F Source: [place] 11:50 AM [facility] [place] [facility] Medical Records Department [address] [place] [address] Operative Report 07/08/17 1144 MR#: [id number] Acct: [id number] Name: VAZQUEZ ZAMBRANO Rep #: [id number] : 1950 67 From: Derrick Silva MD PCP: Power Esquivel MD Status: [facility] Y Location: [place] [address] Problem List (1) Pressure ulcer of left buttock, stage 3 Status: Resolved (2) Pressure ulcer of left buttock, stage 2 Status: Acute (3) Incompetent urethral closure mechanism Status: Acute (4) Neurogenic bladder Status: Acute Report of Operation Date of Procedure: 07/08/17 Pre-Operative Diagnosis: Female with chronic bedsores in the issue him stage II and III and chronic incompetence of the urethra and leakage around the Roach catheter Post-Operative Diagnosis: Same Surgery/Procedure Performed:: Cystoscopy and placement of a suprapubic catheter Description of Surgical Findings:: 67-year-old female was taken back to the operating room after smooth induction of general anesthesia she was placed supine on the table the current catheter was removed the perineum was very red from chronic irritation wetness from the catheter she had 2 sores in the issue him on the left and right side that had been taken care of by the wound center but these are chronically getting wet with urine probably will not here and to heal until we divert the urine away. She has had a catheter in the urethra and still leaking around the catheter so I recommend a suprapubic catheter to try to divert the urine away. Patient was taken back to the operating room after smooth induction of general anesthesia she was placed in dorsal lithotomy position very frail elderly elderly female repositioned her very carefully she had bedsores and the issue on the left and right side these are chronically these were dressed remove the catheter the area perineum and urethra and the entire area was red from chronic irritation from leaking urine. The urethra was inspected very patulous opening urethra. I then went into the bladder with the cystoscope had chronic inflammation of the bladder from a chronic Roach catheter was not really able to distend the bladder very well given her patulous urethra the water which is run around the catheter during the irrigation had to push up on the urethra to try to put pressure on the bladder to distend the bladder as much as possible. Then I used a finder needle to explore my insertion site above the bone and then I was able to find a site above the pubic bone made an incision above the pubic bone I went through with the suprapubic catheter insertion kit device advanced this to the skin muscle layer and then into the bladder under direct visualization with the cystoscope once in the bladder pulled out the sheath in the middle and then to the sheath I put the catheter in it was a 16 Qatari catheter inflated 10 cc in the balloon pulled a backup flushed it in the left this inside the bladder and suprapubic catheter I secured the suprapubic catheter with stitches in the skin no catheter was left in the urethra patient anesthetic was reversed I will talk to the patient about the findings she has a very patulous open urethra hopefully the suprapubic catheter will help divert the urine away but was such as open patches urethra she still make the ureter may leak urine below. Her initial an issue and dressings were dressed by the nurses staff she was dried and then transferred to the PACU in good condition she will follow- up in the office as an appointment to have a suprapubic catheter change a larger catheter as we change larger catheters this may help with drainage from the bladder. Patient's anesthetic was reversed taken back to PACU in good condition Type of Anesthesia:: General Drains: sp tube - Admit VTE Documentation VTE Present on Admission: No VTE Mechan Device Prophylaxis: SCD's 07/08/17 1150 <Electronically signed by Derrick Silva MD> Date Derrick Silva MD CC: Power Esquivel MD; Derrick Silva MD Signed BEDSIDE GLUCOSE Collected: 07/08/2017 Status: F Source: [place] 10:49 AM [facility] [place] [facility] TYPE CODE TESTS RESULT OUT OF REFERENCE UNITS RANGE LAB L501.080 70-110 mg/dL High BEDSIDE GLU 135 Result Comment: MANAGEMENT OF PATIENT CARE PER NURSING PROTOCOL Performed By: #### L501.080 #### [facility] Point of Care [address] [place] [address] DISCHARGE INSTRUCTION Observed: 07/08/2017 Status: F Source: [place] 10:46 AM [facility] [place] [facility] Medical Records Department [address] [place] [address] Instructions for Home/Discharge Instructions 07/08/17 1040 MR#: [id number] Acct: [id number] Name: VAZQUEZ ZAMBRANO Rep #: [id number] : 1950 67 From: Derrick Silva MD PCP: Power Esquivel MD [place] [facility] [place] Diet: Light diet - advance as tolerated Discharge Activity: Return to Normal Activity, No Restrictions Call your doctor if your incision/area has: Continuous Slow Oozing, Sudden Increased Bleeding, Increased Pain/ Swelling, Increased Redness, Foul Smelling Discharge, Swelling at the incision site Instructions: Discharge Instructions: Caring for Your Suprapubic Catheter Allergies/Adverse Reactions: Allergies No Known Allergies Allergy (Verified 07/01/17 10:11) Medications to take at Discharge Allopurinol [Zyloprim] 100 mg PO BID 07/05/14 Latanoprost 0.005% [Xalatan Opthalmic] 1 drop EACH EYE QHS 07/05/14 Losartan Potassium [Cozaar] 25 mg PO DAILY 07/05/14 Metformin HCl [Glucophage] 1,000 mg PO BIDCM 07/05/14 Multivitamins,Therapeutic [Multivitamin] 1 tablet PO DAILY 07/05/14 Simvastatin [Zocor] 10 mg PO QHS 07/05/14 Timolol Maleate [Timoptic-XE 0.5%] 1 drop EACH EYE DAILY 07/05/14 Acetaminophen [Tylenol Tablet] 650 mg PO Q6H PRN PRN #0 tablet 07/11/14 Furosemide [Lasix] 40 mg PO DAILY 06/29/15 Potassium Chloride [K-Dur] 20 meq PO DAILY 06/29/15 Saxagliptin HCl [Onglyza] 5 mg PO DAILY 07/01/17 Solifenacin Succinate [Vesicare] 10 mg PO DAILY 07/01/17 Cephalexin [Keflex] 500 mg PO Q8 #21 cap 07/08/17 The following prescriptions were given: Cephalexin [Keflex] 500 mg PO Q8 #21 cap Primary Care Physician: Jones Esquivel MD [Primary Care Provider] - Please Follow Up With: Derrick Silva MD - Call if need to change appt. When: August 20 at 10 am to change SP tube. 07/08/17 1046 <Electronically signed by Derrick Silva MD> Date Derrick Silva MD CC: Power Esquivel MD Observed: 06/12/2017 Status: F Source: [place] CULTURE, DEEP WOUND 1:30 PM [facility] [place] [facility] Comments: RIGHT SIDE Gram Stain Gram Stain No White Blood Cells No organisms seen 1+ Red Blood Cells Wound Culture #2 There are no CLSI standards for interpretation of this Drug/Organism combination. ORGANISM 1: Staphylococcus haemolyticus Amount Growth 1+ ORGANISM 2: Corynebacterium striatum Amount Growth 1+ ORGANISM 3: Proteus mirabilis Amount Growth Rare Staphylococcus haemolyticus: REACTION Benzylpenicillin NF >=0.5 R Cefoxitin *NF + Clindamycin $$ <=0.25 S Inducable Clindamycin Resistan - Erythromycin $ >=8 R Gentamicin $ 8 I Levofloxacin $ >=8 R Linezolid $$$$ 2 S Oxacillin NF >=4 R Tigecycline $$$$ 0.25 S Rifampin $$ <=0.5 S Tetracycline NF >=16 R Vancomycin $ 1 S (NF) indicates non-formulary drug at [facility]. Approval by Infectious Disease Specialist required before non-formulary drugs may be ordered and/or dispensed. * CLSI guidelines does not recommend testing of cephalosporins. This interpretation is deduced from Beta-lactam/penicillin results. Proteus mirabilis: REACTION Amoxacillin/Clavulanic Acid $ 4 S Ampicillin $ >=32 R Ampicillin/Sulbactam $ 8 S Cefazolin $ <=4 S Cefepime $ <=1 S Ceftriaxone $ <=1 S Ciprofloxacin $ >=4 R Ertapenim $$$ <=0.5 S Gentamicin $ <=1 S Levofloxacin $ >=8 R Piperacillin/Tazobactam $$ <=4 S Tobramycin $ <=1 S Trimethoprim/Sulfametho $ >=320 R (NF) indicates non-formulary drug at [facility]. Approval by Infectious Disease Specialist required before non-formulary drugs may be ordered and/or dispensed. Cult, Anaerobic No anaerobic bacteria isolated. Performed By: #### M100.1500 #### [facility] [address] [place], [address] CBC W/DIFF, AUTOMATED Collected: 06/03/2017 Status: F Source: [place] 2:06 PM [facility] [place] [facility] Order Comment: Order Date: 06/03/17 Order Info: [id number] - CBCD TYPE CODE TESTS RESULT OUT OF RANGE REFERENCE UNITS LAB L100.1000 4.4-11.0 K/mm3 High WBC 12.4 LAB L100.1200 4.2-5.4 M/mm3 Normal RBC 4.65 LAB L100.1300 12.0-15.0 g/dl Normal HGB 12.9 LAB L100.1400 37-47 % Normal HCT 40.3 LAB L100.1500 81-99 fL Normal MCV 86.7 LAB L100.1600 27.0-32.0 pg Normal MCH 27.7 LAB L100.1700 32-36 g/gl Normal MCHC 32.0 LAB L100.1810 11.6-14.6 % High RDW CV 15.8 LAB L100.1820 35.1-43.9 fl High RDW SD 49.1 LAB L100.1900 150-450 K/mm3 Normal PLT 340 LAB L100.2000 6.2-12.0 fl Normal MPV 9.8 LAB L100.2100 47-70 % High NEUT% 79.9 LAB L100.2200 19-41 % Low LY% 10.4 LAB L100.2300 0-10 % Normal MONO% 7.4 LAB L100.2400 0-5 % Normal EO% 1.8 LAB L100.2500 0-1 % Normal BASO% 0.2 LAB L100.2550 0.0-0.9 % Normal IM GRAN % 0.300 Result Comment: IG% - Immature Granulocytes (promyelocytes, myelocytes and metamyelocytes) > 1% indicates that a LEFT SHIFT is Present. LAB L100.2620 2.0-7.7 X10 3/uL High Absolute Neut 9.9 LAB L100.2720 0.83-4.51 X10 3/ul Normal Absolute Lymph 1.28 Performed By: #### L100.0100, L501.9985, L500.4050, L500.4100, L501.9520 #### [facility] [address] [place], [place], [address] HEMOGLOBIN A1C Collected: 06/03/2017 Status: F Source: [place] 2:06 PM [facility] [place] [facility] Order Comment: Order Date: 06/03/17 Order Info: [id number] - A1C TYPE CODE TESTS RESULT OUT OF RANGE REFERENCE UNITS LAB L501.9985 4.2-6.3 % High HGB A1C 6.9 Performed By: #### L100.0100, L501.9985, L500.4050, L500.4100, L501.9520 #### [facility] [address] [place], [address] COMPREHENSIVE METABOLIC Collected: 06/03/2017 Status: F Source: [facility] 2:06 PM [facility] [place] [facility] Order Comment: Order Date: 06/03/17 Order Info: [id number] - CMP Order Info: [id number] - LIPID Order Info: [id number] - TSH TYPE CODE TESTS RESULT OUT OF RANGE REFERENCE UNITS LAB L501.0100 74-106 mg/dL High GLU 115 Result Comment: Fasting Glucose result from 100 to 125 mg/dL suggests IMPAIRED HOMEOSTASIS per A.D.A. criteria. Please note revised GLUCOSE reference range effective 2017. LAB L501.1000 7-18 mg/dL High BUN 28 LAB L501.1100 0.55-1.02 mg/dL Normal CREAT,SERUM 0.66 Result Comment: The validity of the calculated GFR AND GFRAA in patients over 70 years has not been determined. Clinical correlation is essential. LAB L501.1110 >60 mL/min Normal EST GFR 94 Result Comment: Non- GFR Calc LAB L501.1115 >60 mL/min Normal EST GFR - AA 114 Result Comment: GFR Calc LAB L501.1300 10-20 RATIO High BUN/CRE 42.3 LAB L501.1500 6.4-8.2 g/dL High T PROT 8.6 LAB L501.1800 3.2-5.0 g/dL Normal ALB 3.2 LAB L501.1950 2.2-4.2 g/dL High GLOB 5.4 LAB L501.2000 0.9-2.4 RATIO Low A/G 0.6 LAB L501.2200 8.5-10.1 mg/dL CA Normal 9.2 LAB L501.4100 15-37 U/L Normal AST 17 LAB L501.4305 45-117 U/L Normal ALK P 69 LAB L501.4405 13-56 U/L Normal ALT 24 Result Comment: Please note revised ALT reference range effective 2017. LAB L501.4600 0.20-1.00 mg/dL Normal T BILI 0.30 LAB L501.5300 136-145 mmol/L Normal NA 138 LAB L501.5600 3.5-5.1 mmol/L Normal K 4.1 LAB L501.5900 98-107 mmol/L Normal CL 102 LAB L501.6100 21.0-32.0 mmol/L Normal CO2 25.0 LAB L501.6200 5-15 Normal GAP 11 Performed By: #### L100.0100, L501.9985, L500.4050, L500.4100, L501.9520 #### [facility] [address] [place], [place], [id number] LIPID PROFILE Collected: 06/03/2017 Status: F Source: [place] 2:06 PM [facility] [place] [facility] Order Comment: Order Date: 06/03/17 Order Info: [id number] - CMP Order Info: [id number] - LIPID Order Info: [id number] - TSH TYPE CODE TESTS RESULT OUT OF RANGE REFERENCE UNITS LAB L501.4900 200 mg/dL Normal CHOL 102 Result Comment: <200 mg/dL Desirable 200-240 mg/dL Borderline >240 mg/dL High Risk LAB L501.5000 mg/dL Normal TRIG 65 Result Comment: The drugs N-Acetylcysteine and Metamizole may falsely depress this assay. Serum Triglycerides Reference Interval Normal <150 mg/dL Borderline high 150 - 199 mg/dL High 200 - 499 mg/dL Very High > or = 500 mg/dL LAB L501.6400 mg/dL Normal HDL 48 Result Comment: The drugs N-Acetylcysteine and Metamizole may falsely depress this assay. Reference Range HDL <40 mg/dL Low HDL Cholesterol HDL >or= 60 mg/dL High HDL Cholesterol LAB L501.6500 0-130 mg/dL Normal LDL 41 LAB L501.6600 5-40 mg/dL Normal VLDL 13 Performed By: #### L100.0100, L501.9985, L500.4050, L500.4100, L501.9520 #### [facility] [address] [place], [place], [address] THYROID STIM HORMONE Collected: 06/03/2017 Status: F Source: [place] (TSH) 2:06 PM [facility] [place] [facility] Order Comment: Order Date: 06/03/17 Order Info: [id number] - CMP Order Info: [id number] - LIPID Order Info: [id number] - TSH TYPE CODE TESTS RESULT OUT OF RANGE REFERENCE UNITS LAB L501.9520 0.358-3.74 uIU/mL Normal TSH 1.04 Performed By: #### L100.0100, L501.9985, L500.4050, L500.4100, L501.9520 #### [facility] [address] [place], [address] WOUND CTR HISTORY Observed: 05/08/2017 Status: F Source: [place] AND PHYSICAL 6:15 PM [facility] [place] [facility] [address] [place] [address] Wound Ctr History AND Physical 05/08/17 1801 MR#: [id number] Acct: [id number] Name: VAZQUEZ ZAMBRANO Rep #: [id number] : 1950 67 From: Vanessa Bull DO PCP: Power Esquivel MD Status: REG RCR Y Location: (1) Spinal stenosis Status: Chronic Current Visit: Yes Qualifiers: Spinal region: lumbosacral Code(s): M48.00 - Spinal stenosis, site unspecified (2) Physical deconditioning Status: Chronic Current Visit: Yes Code(s): R53.81 - Other malaise (3) Pressure sore of left ischium, stage 4 Status: Chronic Current Visit: Yes Code(s): L89.324 - Pressure ulcer of left buttock, stage 4 (4) Diabetic neuropathy, type II diabetes mellitus Status: Chronic Current Visit: Yes Qualifiers: 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 Spinal cord stenosis History of Wound: Patient is a 64-year-old female who has a chronic pressure ulcer of her left ischium. Patient was initially hospitalized for a swelling and redness of her right leg approximately 2014. This was evaluated for cellulitis. She was seen in consultation by infectious disease and plastic surgery. The patient was taken to surgery for an operative debridement of her chronic left ischial ulcer, underwent wound vac treatment and IV antibiotics. She was abruptly released from the [facility] after only a few wks, before end of therapy. She had finished her IV antibiotics for Grp A strep osteomyelitis at home and continued with PT at home as well. She has decided to go with the conservative care route since she feels that her quality of life is more important than healing out the wound but had continued to keep the wound vac. The wound vac was discontinued by her insurance for failure to show improvement in the size of her wound. She has been being seen monthly for conservative/palliative care of her pressure ulcer of her left ischium. She has home health visiting weekly to assess her wound and monthly visits to the wound center. She has been tolerating this treatment well. She has recently started getting pressure ulcers of her right buttocks. January 2017, she underwent treatment after developing pressure ulcers which occurred from urinary incontinence issues associated with a chronic UTI and leakage of her catheter. She developed another pressure ulcer of her right buttock on or around April 20, 2017 and presents for treatment of this area as well as continued treatment of her left ischial pressure ulcer. She has been using Rain to the right buttock and continues to use Aquacel to the left ischium/buttock. Denies fever, chills or increased pain. 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 significance to followup Pressure sore of left ischium, stage 4 (Chronic) chronic osteomyelitis left ischial area (Chronic) Arthritis (Chronic) Back pain (Chronic) Malnutrition (Chronic) Diabetic neuropathy, type II diabetes mellitus (Chronic) Diabetes mellitus (Chronic) Surgical History: - - Surgery for rectal prolapse with anterior resection and rectopexy at [facility] in 2008 and back surgery 1979. Colostomy was November 2012. She had blood transfusions in October 2012 at [facility] for blood loss anemia. excision left ischial pressure sore with partial ostectomy for osteomyelitis and excision right ischial pressure sore and excision left lateral ankle pressure sore with partial ostectomy for osteomyelitis in 08/01. Allergies/Adverse Reactions: Allergies No Known Allergies Allergy (Verified 08/08/14 15:45) Home Medications: Ambulatory Orders Medication Instructions Recorded Allopurinol [Zyloprim] 100 mg PO DAILYCM 07/05/14 - Family History Maternal Diabetes, Hypertension Paternal Diabetes, Hypertension Lives: Alone Smoking Status: Never smoker Tobacco Use: Non-smoker Alcohol: None Drugs: None Review of Systems Constitutional: Denies: Chills, Fever, Weight Change Eyes: Denies: Pain, Vision Change HEENT: Denies: Difficulty Hearing, Difficulty Swallowing, Sinus Congestion Cardiovascular: Denies: Chest Pain, Palpitations Respiratory: Denies: Cough, Shortness of Breath Gastrointestinal: Denies: Diarrhea, Nausea, Vomiting Genitourinary: Denies: Dysuria, Hematuria Musculoskeletal: Reports: Back Pain, Leg Pain Skin: Reports: Wounds Neurological: Reports: Numbness, Tingling, - - weakness, unable to walk Endocrine: Denies: Heat/ Cold Intolerance, Polydipsia, Polyuria Hematologic/ Lymphatic: Denies: Easy Bruising, Easy Bleeding - Physical Exam Vital Signs Temp Pulse Resp BP 98 F 98 18 141/77 H 05/08/17 13:35 04/20/17 00:42 05/08/17 13:35 04/20/17 00:42 General: Alert, Oriented x3, Cooperative, No apparent distress HEENT: Atraumatic, Normocephalic Oral: Moist Mucosa Lungs: Clear to auscultation Cardiovascular: Regular rate Abdomen: Obese Extremities: No edema Skin: Ulcer/ Wound Wound Measurements and Assessment - Nurse 1 - General Ulcer Measurement Start: 05/08/17 13:33 Freq: Status: Active Protocol: Activity Type Activity Date Activity User E-Sign Co-Sign Detail Recorded Client Recorded Date Recorded By Document 05/08/17 13:[address] [facility] [id number] 05/08/17 13:[address] [facility] Wound Center Nurse 1 [Ulcer Assessment Protocol: WC.WD.LOC] #7- Stage III pressure ulcer RT GLUTEAL FOLD - Nurse 2 - General Ulcer CM Notes Start: 05/08/17 13:33 Freq: Status: Active Protocol: Activity Type Activity Date Activity User E-Sign Co-Sign Detail Recorded Client Recorded Date Recorded By Document 05/08/17 14:34 [id number] 05/08/17 14:42 Wound Center Nurse 2 [Procedure/Treatment] #7- Stage III pressure ulcer RT GLUTEAL FOLD -Time 14:34 -Correct Patient Yes -Correct Side, Site, Position Yes Neurological: Unsteady Gait Psych/Mental Status: Normal Affect, Appropriate Debridement Note Post-Debridement Measurements/Treatment WC - Nurse 2 - General Ulcer CM Notes Start: 05/08/17 13:33 Freq: Status: Active Protocol: Activity Type Activity Date Activity User E-Sign Co-Sign Detail Recorded Client Recorded Date Recorded By Document 05/08/17 14:34 [id number] 05/08/17 14:42 Wound Center Nurse 2 #7- Stage III pressure ulcer RT GLUTEAL Wound debrided: stage III ulcer right gluteal fold Laterality: Right Wound Grade/Stage: Stage III Type of Debridement: Excisional debridement Anesthesia Used: 5% Lidocaine Gel Depth: Down to and including healthy tissue, in the subcutaneous layer Percentage of wound debrided: 100 Instrument Used: 5mm curette, #15 blade Tissue Removed: yellow slough, devitalized tissue Severity: Fat Layer Exposed Amount of bleeding with debridement: Mild Bleeding Controlled with: Compression and gauze Patient tolerated procedure well - Additional Wound Wound debrided: left buttocks stage IV Laterality: Left Wound Grade/Stage: Stage IV Type of Debridement: Excisional debridement Anesthesia Used: 4% Lidocaine Solution Depth: Down to and including healthy tissue, in the subcutaneous layer Percentage of wound debrided: 100 Instrument Used: 3mm curette Tissue Removed: yellow slough, devitalized tissue Severity: Fat Layer Exposed Amount of bleeding with debridement: Mild Bleeding Controlled with: Compression and gauze Patient tolerated procedure: Patient tolerated procedure well Assessment/Plan Active Problems Spinal stenosis (Chronic) Physical deconditioning (Chronic) Pressure sore of left ischium, stage 4 (Chronic) Diabetic neuropathy, type II diabetes mellitus (Chronic) Assessment: Pressure ulcer of the left buttock -non healing, despite several deep OR debridements, has not been willing to stay in bed and keep off of wound,and refuses to consider having a muscle flap since it would entail 6 wks in a bed in a [facility] which she thinks would cause more deconditioning and require another few months to restrore her ambulation. wound is remaining free of infection and is not increasing in size but is stable. Right gluteal fold pressure ulcer stage III - healed. left Buttock/ischial ulcer stage III - healed Plan: Right buttock wound debrided as well as left buttock/ischium. Right buttock/gluteal fold will be treated with Aquacel Ag and a wound culture was taken today. She was started on Augmentin and will adjust antibiotic as necessary. Continue with aquacel daily wound packing to left buttocks. Encouraged to increase protein intake to aid in wound healing and maintain good control of diabetes. Discussed offloading importance in wound healing. F/U in 1 week. Nursing notes reviewed. 05/08/17 181 <Electronically signed by Vanessa Bull DO> Date Vanessa Bull DO CC: Signed Observed: 05/08/2017 Status: F Source: [place] CULTURE, DEEP WOUND 2:30 PM [facility] [place] [facility] Gram Stain Gram Stain Rare Gram positive cocci 4+ Red Blood Cells No White Blood Cells Wound Culture #4 There are no CLSI standards for interpretation of this Drug/Organism combination. ORGANISM 1: Proteus mirabilis Amount Growth 2+ ORGANISM 2: Pseudomonas aeroginosa Amount Growth Rare ORGANISM 3: Enterococcus faecalis ORGANISM 4: Corynebacterium striatum Amount Growth 2+ Proteus mirabilis: REACTION Amoxacillin/Clavulanic Acid $ 4 S Ampicillin $ >=32 R Ampicillin/Sulbactam $ 8 S Cefazolin $ <=4 S Cefepime $ <=1 S Ceftriaxone $ <=1 S Ciprofloxacin $ >=4 R Ertapenim $$$ <=0.5 S Gentamicin $ <=1 S Levofloxacin $ >=8 R Piperacillin/Tazobactam $$ <=4 S Tobramycin $ <=1 S Trimethoprim/Sulfametho $ >=320 R (NF) indicates non-formulary drug at [facility]. Approval by Infectious Disease Specialist required before non-formulary drugs may be ordered and/or dispensed. Pseudomonas aeroginosa: REACTION Cefepime $ 4 S Ceftazidime *NF 2 S Ciprofloxacin $ <=0.25 S Gentamicin $ 4 S Imipenem *NF 2 S Levofloxacin $ <=0.12 S Piperacillin/Tazobactam $$ 16 S Tobramycin $ <=1 S (NF) indicates non-formulary drug at [facility]. Approval by Infectious Disease Specialist required before non-formulary drugs may be ordered and/or dispensed. Enterococcus faecalis: REACTION Ampicillin $ <=2 S Benzylpenicillin NF 4 S Gentamicin SYN-S S Linezolid $$$$ 2 S Tigecycline $$$$ <=0.12 S Streptomycin $ SYN-S S Vancomycin $ 1 S (NF) indicates non-formulary drug at [facility]. Approval by Infectious Disease Specialist required before non-formulary drugs may be ordered and/or dispensed. * CLSI guidelines does not recommend testing of cephalosporins. This interpretation is deduced from Beta-lactam/penicillin results. Cult, Anaerobic Studies have confirmed that Anaerobic Gram Positive Cocci are routinely susceptible to: Penicillin/Ampicillin, Ampicillin/Sulbactam, Piperacillin/Tazobactam, Cefoxatin, Ertapenem, Imipenem, Meropenem and Metronidazole and vary in resistance to: Clindamycin and Moxifloxacin. ORGANISM 1: Anaerobic cocci Performed By: #### M100.1500 #### [facility], [address] ALLERGIES ALLERGIES DATE TYPE / CODE NAME / CODE REACTION SEVERITY SOURCE 03/24/2018 Drug No Known Unknown [facility] Allergy/4160 Allergies/F00 Hospital [address](SNOMED [id number](RXNOR Repository CT) M) ENCOUNTERS ENCOUNTERS ADMIT/DISCHARGE ACCOUNT ADMITTING ENCOUNTER LOCATION SOURCE NUMBER CLASS 04/02/2018 [id number] Ambulatory [place] [facility] ing: Repository 03/30/2018 [id number] Ambulatory [place] Sarah 9 [facility] ing:[facility] Repository 03/24/2018/ [id number] Ambulatory BMSBuilding:B [place] 8 0 [facility] Repository 03/22/2018 [id number] Ambulatory Sarah Sarah 6 [facility] ing:[facility] Repository 03/19/2018/ [id number] Ambulatory [place] Sarah 8 3 [facility] ing: Repository 03/15/2018/ [id number] Ambulatory BMSBuilding:B [place] 8 4 [facility] Repository 03/10/2018 [id number] Ambulatory Sarah Sarah 5 [facility] ing:MFPLAB Repository 02/26/2018 [id number] White, Sari Ambulatory BMSBuilding:B [place] 3 MS.[facility] Repository 02/26/2018 [id number] White, Sari Ambulatory BMSBuilding:B [place] 2 [facility] Repository 02/26/2018/ [id number] White, Sari Inpatient Sarah Sarah 8 9 [facility] ing:CN2Cqdn: Repository [id number]: 1 02/26/2018 [id number] White, Sari Ambulatory BMSBuilding:B [place] 6 [facility] Repository 02/26/2018 [id number] White, Sari Ambulatory BMSBuilding:B [place] 0 [facility] Repository 02/22/2018/ [id number] Ambulatory Sarah Sarah 8 9 [facility] ing:HHLAB Repository 02/12/2018/ [id number] [place] 8 4 [facility] Hospital ing:WC Repository 01/15/2018/ [id number] Ambulatory Sarah [place] 8 4 [facility] Hospital ing:WC Repository 12/11/2017/ [id number] Ambulatory [place] Sarah 8 7 [facility] Hospital ing:WC Repository 11/23/2017/ [id number] Emergency Sarah Sarah 8 8 [facility] Hospital ing:ED Repository 11/13/2017/ [id number] Ambulatory Sarah [place] 8 1 [facility] Repository 10/16/2017/ [id number] Ambulatory Sarah [place] 8 5 [facility] ing[facility] Repository 09/16/2017/ [id number] [place] 8 4 [facility] Repository 09/07/2017/ [id number] Ambulatory Sarah Sarah 8 3 [facility] ing[facility]WC Repository 08/10/2017/ [id number] Ambulatory [place] 8 9 [facility] ing:WC Repository 07/17/2017/ [id number] Ambulatory [place] 8 2 [facility] ing:WC Repository 07/08/2017/ [id number] Ambulatory [place] 8 7 [facility] ing:SDC Repository 06/12/2017/ [id number] Ambulatory Sarah [place] 8 2 [facility] ing:WC Repository 06/03/2017 [id number] Ambulatory [place] 8 [facility] ing:MFPLAB Repository 05/15/2017/ [id number] Ambulatory Sarah Sarah 8 4 [facility] ing:WC Repository 04/07/2017 [id number] Ambulatory Sarah Sarah 6 [facility] ing:LABSPEC Repository PAYERS PAYERS ENCOUNTER GUARANTOR PAYER SUBSCRIBER SOURCE 04/02/2018 VAZQUEZ Mann Primary VAZQUEZ Mann [place] [id number] N Insurance:MEDICAIDPol [facility] [id number], [place] [id number] Repository 52484Bqw: (330) Date:2017-03-20 () 04/02/2018 Secondary NOT GIVENUNK Sarah Insurance:SELF PAY [facility] Number: Effective Repository Date:2018-03-20 03/30/2018 VAZQUEZ Mann Primary VAZQUEZ Mann [place] [id number] N Insurance:MEDICAIDPol [facility] Number: [id number], [place] [id number] Repository 35215Scy: (330) Date:2018-02-22335 (HP) 03/30/2018 Secondary NOT GIVENUNK [place] Insurance:SELF PAY [facility] Number: Effective Repository Date:2018-03-20 03/24/2018 VAZQUEZ Mann Primary VAZQUEZ Mann [place] [id number] N Insurance:MEDICAIDPol [facility] Number: [id number], [place] [id number] Repository 77554Suu: (330) Date:2018-03-15 (HP) 03/24/2018 Secondary NOT GIVENUNK [place] Insurance:SELF PAY [facility] Number: Effective Repository Date:2018-03-24 03/22/2018 VAZQUEZ Mann Primary VAZQUEZ Mann [place] [id number] N Insurance:MEDICAIDPol KEENERDOB: [facility] [address] icy Number: [id number], [place] [id number] Repository 90757Pgw: (330) Date:2018-03-15 (HP) 03/22/2018 Secondary NOT GIVENUNK [place] Insurance:SELF PAY [facility] Number: Effective Repository Date:2018-03-15 03/19/2018 VAZQUEZ E Primary VAZQUEZ Mann [place] [id number] N Insurance:MEDICAIDPol KEENERDOB: [facility] [address] icy Number: [id number], [place] [id number] Repository 91507Ckt: (330) Date:2017-03-20 () 03/19/2018 Secondary NOT GIVENUNK [place] Insurance:SELF PAY [facility] Number: Effective Repository Date:2018-02-18 03/15/2018 VAZQUEZ E Primary VAZQUEZ Mann [place] [id number] N Insurance:MEDICAIDPol KEENERDOB: Community [address] icy Number: [id number], [place] [id number] Repository 68492Sfd: (330) Date:2018-03-01 (HP) 03/15/2018 Secondary NOT GIVENUNK [place] Insurance:SELF PAY [facility] Number: Effective Repository Date:2018-03-01 03/10/2018 VAZQUEZ E Primary VAZQUEZ Mann [place] [id number] N Insurance:MEDICAIDPol KEENERDOB: Community [address] icy Number: [id number], [place] [id number] Repository 08441Plz: (330) Date:2018-03-10335 (HP) 03/10/2018 Secondary NOT GIVENUNK [place] Insurance:SELF PAY [facility] Number: Effective Repository Date:2018-03-10 02/26/2018 VAZQUEZ E Primary VAZQUEZ Mann [place] [id number] N Insurance:MEDICAIDPol KEENERDOB: Community [address] icy Number: [id number], [place] [id number] Repository 65428Ltz: (330) Date:2018-02-26 () 02/26/2018 Secondary NOT GIVENUNK [place] Insurance:SELF PAY [facility] Number: Effective Repository Date:2018-02-26 02/26/2018 VAZQUEZ E Primary VAZQUEZ Mann [place] [id number] N Insurance:MEDICAIDPol KEENERDOB: Community [address] icy Number: [id number], [place] [id number] Repository 42242Zdy: (330) Date:2018-02-26 () 02/26/2018 Secondary NOT GIVENUNK [place] Insurance:SELF PAY [facility] Number: Effective Repository Date:2018-02-26 02/26/2018 VAZQUEZ E Primary VAZQUEZ Mann [place] [id number] N Insurance:MEDICAIDPol KEENERDOB: Community [address] icy Number: [id number], [place] [id number] Repository 71250Ekj: (330) Date:2018-02-26 () 02/26/2018 Secondary NOT GIVENUNK [place] Insurance:SELF PAY [facility] Number: Effective Repository Date:2018-02-26 02/26/2018 VAZQUEZ E Primary VAZQUEZ Mann [place] [id number] N Insurance:MEDICAIDPol KEENERDOB: Community [address] icy Number: [id number], [place] [id number] Repository 26251Qjm: (330) Date:2018-02-26 () 02/26/2018 Secondary NOT GIVENUNK [place] Insurance:SELF PAY [facility] Number: Effective Repository Date:2018-02-26 02/26/2018 VAZQUEZ E Primary VAZQUEZ Mann [place] [id number] N Insurance:MEDICAIDPol KEENERDOB: Community [address] icy Number: [id number], [place] [id number] Repository 47881Woa: (330) Date:2018-02-26 () 02/26/2018 Secondary NOT GIVENUNK [place] Insurance:SELF PAY [facility] Number: Effective Repository Date:2018-02-26 02/22/2018 VAZQUEZ Mann Primary VAZQUEZ C[place] [id number] N Insurance:MEDICAIDPol KEENERDOB: Community [address] icy Number: [id number], [place] [id number] Repository 27379Uwv: (330) Date:2018-02-22 () 02/22/2018 Secondary NOT GIVENUNK [place] Insurance:SELF PAY [facility] Number: Effective Repository Date:2018-02-22 02/12/2018 VAZQUEZ Mann Primary VAZQUEZ Mann [place] [id number] N Insurance:MEDICAIDPol KEENERDOB: [facility] [address] icy Number: [id number], [place] [id number] Repository 65660Moa: (330) Date:2017-03-20 () 02/12/2018 Secondary NOT GIVENUNK [place] Insurance:SELF PAY [facility] Number: Effective Repository Date:2018-01-18 01/15/2018 VAZQUEZ Mann Primary VAZQUEZ Mann [place] [id number] N Insurance:MEDICAIDPol KEENERDOB: Community [address] icy Number: [id number], [place] [id number] Repository 38496Vcc: (330) Date:2017-03-20 () 01/15/2018 Secondary NOT GIVENUNK [place] Insurance:SELF PAY [facility] Number: Effective Repository Date:2017-12-19 12/11/2017 VAZQUEZ Mann Primary VAZQUEZ Mann [place] [id number] N Insurance:MEDICAIDPol KEENERDOB: Community [address] icy Number: [id number], [place] [id number] Repository 26769Ome: (330) Date:2017-03-20 () 12/11/2017 Secondary NOT GIVENUNK [place] Insurance:SELF PAY [facility] Number: Effective Repository Date:2017-11-18 11/23/2017 VAZQUEZ E Primary VAZQUEZ Mann [place] [id number] N Insurance:MEDICAIDPol KEENERDOB: Community [address] icy Number: [id number], [place] [id number] Repository 09425Sun: (330) Date:2017-11-23 () 11/23/2017 Secondary NOT GIVENUNK [place] Insurance:SELF PAY [facility] Number: Effective Repository Date:2017-11-23 11/13/2017 VAZQUEZ E Primary VAZQUEZ Mann [place] [id number] N Insurance:MEDICAIDPol KEENERDOB: Community [address] icy Number: [id number], [place] [id number] Repository 23981Igc: (330) Date:2017-03-20 () 11/13/2017 Secondary NOT GIVENUNK [place] Insurance:SELF PAY [facility] Number: Effective Repository Date:2017-10-18 10/16/2017 VAZQUEZ E Primary VAZQUEZ Mann [place] [id number] N Insurance:MEDICAIDPol KEENERDOB: Community [address] icy Number: [id number], [place] [id number] Repository 02422Pgi: (330) Date:2017-03-20 () 10/16/2017 Secondary NOT GIVENUNK [place] Insurance:SELF PAY [facility] Number: Effective Repository Date:2017-09-18 09/16/2017 VAZQUEZ E Primary VAZQUEZ Mann [place] [id number] N Insurance:MEDICAIDPol KEENERDOB: Community [address] icy Number: [id number], [place] [id number] Repository 25994Ckx: (330) Date:2017-08-25 () 09/16/2017 Secondary NOT GIVENUNK [place] Insurance:SELF PAY [facility] Number: Effective Repository Date:2017-08-25 09/07/2017 VAZQUEZ E Primary VAZQUEZ Mann [place] [id number] N Insurance:MEDICAIDPol KEENERDOB: Community [address] icy Number: [id number], [place] [id number] Repository 89492Lit: (330) Date:2017-03-20 (HP) 09/07/2017 Secondary NOT GIVENUNK [place] Insurance:SELF PAY [facility] Number: Effective Repository Date:2017-08-18 08/10/2017 VAZQUEZ E Primary VAZQUEZ Mann [place] [id number] N Insurance:MEDICAIDPol KEENERDOB: Community [address] icy Number: [id number], [place] [id number] Repository 12643Oir: (330) Date:2017-03-20 (HP) 08/10/2017 Secondary NOT GIVENUNK [place] Insurance:SELF PAY [facility] Number: Effective Repository Date:2017-07-19 07/17/2017 VAZQUEZ E Primary VAZQUEZ Mann [place] [id number] N Insurance:MEDICAIDPol KEENERDOB: Community [address] icy Number: [id number], [place] [id number] Repository 23481Fbn: (330) Date:2017-03-20 (HP) 07/17/2017 Secondary NOT GIVENUNK [place] Insurance:SELF PAY [facility] Number: Effective Repository Date:2017-06-18 07/08/2017 VAZQUEZ E Primary VAZQUEZ Mann [place] [id number] N Insurance:MEDICAIDPol KEENERDOB: Community [address] icy Number: [id number], [place] [id number] Repository 39785Bzy: (330) Date:2017-06-16 (HP) 07/08/2017 Secondary NOT GIVENUNK [place] Insurance:SELF PAY [facility] Number: Effective Repository Date:2017-06-16 06/12/2017 VAZQUEZ [id number] Primary VAZQUEZ KEENERDOB: [place] [address] Insurance:MEDICAIDPol [id number], [place] icy Number: Hospital [id number]: (330) [id number] Repository (HP) Date:2017-03-20 06/12/2017 Secondary NOT GIVENUNK [place] Insurance:SELF PAY [facility] Number: Effective Repository Date:2017-05-21 06/03/2017 VAZQUEZ [id number] Primary VAZQUEZ RICHARDSB: [place] [address] Insurance:MEDICAIDPol [id number], [place] icy Number: Hospital [id number]: 330 [id number] Repository [phone] (HP) Date:2017-06-03 06/03/2017 Secondary NOT GIVENUNK [place] Insurance:SELF PAY [facility] Number: Effective Repository Date:2017-06-03 05/15/2017 VAZQUEZ [id number] Primary VAZQUEZ RICHARDSB: [place] N [address] Insurance:MEDICAIDPol [id number], [place] icy Number: Hospital [id number]: 330 [id number] Repository [phone] (HP) Date:2017-03-20 05/15/2017 Secondary NOT GIVENUNK [place] Insurance:SELF PAY [facility] Number: Effective Repository Date:2017-04-20 04/07/2017 VAZQUEZ [id number] Primary VAZQUEZ RICHARDSB: [place] N [address] Insurance:MEDICAIDPol [id number], [place] icy Number: Hospital [id number]: 330 [id number] Repository [phone] (HP) Date:2017-04-07 04/07/2017 Secondary NOT GIVENUNK [place] Insurance:SELF PAY [facility] Number: Effective Repository Date:2017-04-07
== END 2018-03-19 23:59 ==
LOC: WC 08:54
PROVIDERS: Family Provider Family Medicine; PCP Family Medicine; Referring Provider Surgery; Visit Provider Family Medicine
DX: E11.622 Type 2 diabetes mellitus with other skin ulcer (principal); L89.224 Pressure ulcer of left hip, stage 4; L89.213 Pressure ulcer of right hip, stage 3; M48.07 Spinal stenosis, lumbosacral region
CPT/HCPCS: 11043; 11045

== ENCOUNTER → 2018-03-22 09:13 | Outpatient (CLI) | payer MEDICAID, SELFPAY ==
[2018-03-15 13:37] VITALS: BMI 30.8
[2018-03-19 13:58] VITALS: BMI 30.8
--- NOTE | 2018-03-22 09:25 | RAD_ITS ---
STUDY: GASTROGRAFIN ENEMA. REASON FOR EXAM: Female, 68 years old. Patient has a stoma. A Gastrografin enema through rectum was performed. FLUOROSCOPY TIME (if supplied): (0:57) minutes/seconds TECHNIQUE: Gastrografin was introduced retrograde through the rectum. Attempt at enema was performed. The patient was unable to keep the contrast. COMPARISON: None. FINDINGS: A mass communications instructor film was obtained. A large amount of fecal material is seen throughout the colon. The rectum and the distal sigmoid colon was opacified. The patient was unable to tolerate any further examination. No fistula is seen. RAD/Barium Enema No Air Cont IMPRESSION: Limited study through the rectum. Large amount of fecal material is seen throughout the colon. Electronically Signed: Kyle Suresh MD at 15:57 EST Tel [phone], Service support ,
--- OUTSIDE RECORDS SUMMARY | 2018-05-15 12:07 | XMS RPT_ITS ---
:1950 Author Organization [facility] Support Name Relationship Address Phone JUAN MANUELLESLYE BLUE Unavailable [address] + [place] [address] R Unavailable Unavailable Unavailable LESLYE ZAMBRANO Unavailable [address] + [place] [address] R Unavailable Unavailable Unavailable LESLYE ZAMBRANO Unavailable [address] + [place] [address] R Unavailable Unavailable Unavailable LESLYE ZAMBRANO Unavailable [address] + [place] [address] R Unavailable Unavailable Unavailable LESLYE ZAMBRANO Unavailable [address] + [place] [address] R Unavailable Unavailable Unavailable LESLYE ZAMBRANO Unavailable [address] + [place] [address] R Unavailable Unavailable Unavailable BRANDO AZMBRANO/LESLYE Unavailable [address] + [place] [address] R Unavailable Unavailable Unavailable KIARRA ZAMBRANO Unavailable [address] + [place] [address] R Unavailable Unavailable Unavailable KIARRA ZAMBRANO Unavailable [address] + [place] [address] R Unavailable Unavailable Unavailable BRANDO ZAMBRANO/LESLYE Unavailable [address] + [place] [address] R Unavailable Unavailable Unavailable BRANDO ZAMBRANO/LESLYE Unavailable [address] + [place] [address] R Unavailable Unavailable Unavailable BRANDO ZAMBRANO/LESLYE Unavailable [address] + [place] [address] R Unavailable Unavailable Unavailable BRANDO ZAMBRANO/LESLYE Unavailable [address] + [place] [address] R Unavailable Unavailable Unavailable BRANDO ZAMBRANO/LESLYE Unavailable [address] + [place] [address] R Unavailable Unavailable Unavailable BRANDO ZAMBRANO/LESLYE Unavailable [address] + [place] [address] R Unavailable Unavailable Unavailable JUAN MANUELBRANDO BLUE/LESLYE Unavailable [address] + [place] [address] R Unavailable Unavailable Unavailable JUAN MANUELBRANDO BLUE/LESLYE Unavailable [address] + [place] [address] R Unavailable Unavailable Unavailable JUAN MANUELBRANDO BLUE/LESLYE Unavailable [address] + [place] [address] R Unavailable Unavailable Unavailable JUAN MANUELBRANDO BLUE/LESLYE Unavailable [address] + [place] [address] R Unavailable Unavailable Unavailable JUAN MANUELBRANDO BLUE/LESLYE Unavailable [address] + [place] [address] R Unavailable Unavailable Unavailable BRANDO ZAMBRANO/LESLYE Unavailable [address] + [place] [address] R Unavailable Unavailable Unavailable BRANDO ZAMBRANO/LESLYE Unavailable [address] + [place] [address] R Unavailable Unavailable Unavailable BRANDO ZAMBRANO/LESLYE Unavailable [address] + [place] [address] R Unavailable Unavailable Unavailable JUAN MANUELBRANDO BLUE/LESLYE Unavailable [address] + [place] [address] R Unavailable Unavailable Unavailable BRANDO ZAMBRANO/LESLYE Unavailable [address] + [place] [address] R Unavailable Unavailable Unavailable JUAN MANUELBRANDO BLUE/LESLYE Unavailable [address] + [place] [address] R Unavailable Unavailable Unavailable JUAN MANUELBRANDO BLUE/LESLYE Unavailable [address] + [place] [address] R Unavailable Unavailable Unavailable BRANDO ZAMBRANO/LESLYE Unavailable [address] + [place] [address] R Unavailable Unavailable Unavailable Care Team Providers Name Role Phone Power Esquivel Attending Unavailable [facility] Unavailable Malys Vanessa Attending Unavailable [place] Unavailable Malys Vanessa Attending Unavailable [place] Unavailable [place], Christopher Attending Unavailable [place] Unavailable Malys, Vanessa Attending Unavailable [place] Unavailable RicardoDerrick rodriguez Attending Unavailable RicardoDerrick rodriguezRenan Referring Unavailable Ran[facility] Unavailable [facility], [facility] Unavailable Lind, Joaquín Attending Unavailable Lind, Joaquín Referring Unavailable Lind, Joaquín Attending Unavailable Lind, Joaquín Referring Unavailable [facility], [facility] [place] Primary [facility] Unavailable Derrick Silva Attending Unavailable Ricardo, Renan Referring Unavailable [facility], [facility], [place] Primary Care Unavailable Lind, Joaquín Referring Unavailable Ranney, Christopher Primary Care Unavailable Malys, Vanessa Attending Unavailable Malys, Vanessa Attending Unavailable Lind, Joaquín Referring Unavailable Ranney, Christopher Primary Care Unavailable Malys, Vanessa Attending Unavailable Lind, Joaquín Referring Unavailable [facility] Unavailable Ranney, [facility], [place] Primary Care Unavailable Phani Ross Attending Unavailable Malys, Vanessa Attending Unavailable Lind, Joaquín Referring Unavailable Ranney, Christopher Primary Care Unavailable Malys, Vanessa Attending Unavailable Lind, Joaquín Referring Unavailable Ranney, [facility], [place] Primary Care Unavailable Malys, Vanessa Attending Unavailable Lind, Joaquín Referring Unavailable Ranney, [facility], [place] Primary Care Unavailable Ranney, Christopher Attending Unavailable Ranney, [facility], [place] Primary Care Unavailable Ranney, Christopher Referring Unavailable Ranney, [facility], [place] Primary Care Unavailable White, Sari Admitting Unavailable Koram, Aleshia Rosa M Attending Unavailable Lavon Joseph Consulting Unavailable White, Sari Admitting Unavailable White, Sari Attending Unavailable Ranney, Christopher Primary Care Unavailable White, Sari Consulting Unavailable White, Sari Admitting Unavailable Koram, [...] Aleshia Rosa M Consulting Unavailable Ranney, Christopher Attending Unavailable Ranney, Christopher Primary Care Unavailable Juma, Javid Attending Unavailable Ranney, Christopher Referring Unavailable Juma, Javid Attending Unavailable Juma, Javid Referring Unavailable Ranney, Christopher Primary Care Unavailable Malys, Vanessa Attending Unavailable Lind, Joaquín Referring Unavailable Ranney, Christopher Primary Care Unavailable Ranney, Christopher Attending Unavailable Ranney, Christopher Referring Unavailable Ranney, Christopher Primary Care Unavailable Azusa, Javid Attending Unavailable Ranney, Christopher Referring Unavailable PROBLEMS PROBLEMS DATE TYPE CONDITION / CODE ATTENDING STATUS SOURCE 03/15/2018 Unknown K62.89 - Other Javid Dennison Active [facility] specified [facility] rectum Hospital / K62.89(ICD-10) Repository 03/20/2018 Unknown 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, 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, stage 4 / Hospital L89.324(ICD-10) Repository 03/20/2018 Unknown 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, 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 right [facility] buttock, stage 3 / Hospital L89.313(ICD-10) Repository 03/20/2018 Unknown N31.9 - Ranney, Active [place] Neuromuscular [facility] dysfunction of Hospital bladder, Repository unspecified / N31.9(ICD-10) 04/08/2017 Unknown N39.0 - Urinary Ranney, Active [place] tract infection, [facility] site not specified Hospital / N39.0(ICD-10) Repository PROCEDURES PROCEDURES No Procedure Records FoundRESULTS RESULTS SURGERY VISIT REPORT Observed: 03/26/2018 Status: F Source: [place] 10:44 AM [facility] REPOSITORY [facility] [address] [place] [address] OFFICE VISIT Date of Service: 03/24/18 MR#: [id number] Acct: [id number] Name: VAZQUEZ ZAMBRANO Rep #: [id number] : 1950 Provider: Javid Dennison MD Age/Sex: 68/F Location: [facility] Status: Signed Intake Vital Signs03/24/18 Body Mass Index (BMI) 30.8 Intake Visit Reasons: FU TEST RESULTS Enemia 03/22 Chief Complaint: [employer] Professor Required: No Is patient in pain?: No [...] BID #60 tab 03/01/18 [Rx Confirmed 03/24/18] [facility] Medical History Open wound of left thigh [...] VISIT REPORT Observed: 03/23/2018 Status: F Source: [place] 12:55 PM [facility] REPOSITORY [place] [facility] [address] [place] [address] [address] [place] [address] OFFICE VISIT Date of Service: 03/15/18 MR#: [id number] Acct: [id number] Name: VAZQUEZ ZAMBRANO Rep #: [id number] : 1950 Provider: Javid Dennison MD Age/Sex: 68/F Location: [facility] Status: Signed Intake Vital Signs03/15/18 Height 5 ft 03/15/18 Weight: 158 lb 03/15/18 Body Mass Index (BMI) 30.8 Intake Visit Reasons: recurrent anal fissures Chief Complaint: [employer] Professor Required: No Is patient in pain?: No [...] Javid Dennison MD> Date [facility]: Date (if applicable) CC: Power Esquivel MD BARIUM ENEMA NO AIR Observed: 03/22/2018 Status: F Source: [place] CONT 9:14 AM [facility] REPOSITORY [facility] Imaging Services [address] [place] [address] Barium Enema No Air Cont MR#: [id number] Acct: [id number] Name: VAZQUEZ ZAMBRANO Rep #: [id number] : 1950 F 68 From: Kyle Suresh MD PCP: Power Esquivel MD Status: REG CLI Study: Barium Enema No Air Cont Date of Exam: 03/22/18 Exam# [id number] Ordering Dr: Javid Dennison MD STUDY: GASTROGRAFIN ENEMA. REASON FOR EXAM: Female, 68 years old. Patient has a stoma. A Gastrografin enema through rectum was performed. FLUOROSCOPY TIME (if supplied): (0:57) minutes/seconds TECHNIQUE: Gastrografin was introduced retrograde through the rectum. Attempt at enema was performed. The patient was unable to keep the contrast. COMPARISON: None. 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 A large amount of [...] Kyle Suresh MD at 15:57 EST Tel [phone], Service support , CC: Power Esquivel MD; Javid Dennison MD Assistant Professor Of Anthropology: Signed CBC W/DIFF, AUTOMATED Collected: 03/10/2018 Status: F Source: [place] 2:25 PM [facility] REPOSITORY TYPE CODE TESTS RESULT OUT OF [...] Lymph 1.64 Performed By: #### L100.0100 #### [facility] [address] [facility]. [place], [place], [address] RETIC PANEL Collected: 03/10/2018 Status: F Source: [place] 2:25 PM [facility] REPOSITORY TYPE CODE TESTS RESULT OUT OF [...] L501.5200, L503.6075, L503.6150, L503.6550, L506.1000, L509.1000 #### [facility] [address] [facility] [place], [place], [id number] BASIC METABOLIC Collected: 03/10/2018 Status: F Source: [place] PROFILE (BMP) 2:25 PM [facility] REPOSITORY TYPE CODE TESTS RESULT OUT OF [...] L501.5200, L503.6075, L503.6150, L503.6550, L506.1000, L509.1000 #### [facility] [address] [facility] [place], [address] PHOSPHORUS Collected: 03/10/2018 Status: F Source: [place] 2:25 PM [facility] REPOSITORY TYPE CODE TESTS RESULT OUT OF RANGE REFERENCE UNITS LAB L501.2300 2.5-4.9 mg/dL Normal PHOS 3.4 Performed By: #### L100.9950, L500.2500, L501.2300, L501.5200, L503.6075, L503.6150, L503.6550, L506.1000, L509.1000 #### [facility] [address] [facility]. [place], [place], [address] MAGNESIUM Collected: 03/10/2018 Status: F Source: [place] 2:25 PM [facility] REPOSITORY TYPE CODE TESTS RESULT OUT OF RANGE REFERENCE UNITS LAB L501.5200 1.6-2.6 mg/dL Normal MG 1.9 Performed By: #### L100.9950, L500.2500, L501.2300, L501.5200, L503.6075, L503.6150, L503.6550, L506.1000, L509.1000 #### [facility] [address] [place], [place], [id number] IRON BINDING Collected: 03/10/2018 Status: F Source: [place] [facility]OTAL 2:25 PM [facility] REPOSITORY TYPE CODE TESTS RESULT OUT OF RANGE REFERENCE UNITS LAB L503.6075 250-450 ug/dL Normal TIBC 332 Performed By: #### L100.9950, L500.2500, L501.2300, L501.5200, L503.6075, L503.6150, L503.6550, L506.1000, L509.1000 #### [facility] [address] [place], [place], [id number] IRON Collected: 03/10/2018 Status: F Source: [place] 2:25 PM [facility] REPOSITORY TYPE CODE TESTS RESULT OUT OF RANGE REFERENCE UNITS LAB L503.6150 50-170 ug/dL Low IRON 33 Performed By: #### L100.9950, L500.2500, L501.2300, L501.5200, L503.6075, L503.6150, L503.6550, L506.1000, L509.1000 #### [facility] [address] [place], [place], [address] FERRITIN Collected: 03/10/2018 Status: F Source: [place] 2:25 PM [facility] REPOSITORY TYPE CODE TESTS RESULT OUT OF RANGE REFERENCE UNITS LAB L503.6550 8-252 ng/mL Normal FERRITIN 145 Performed By: #### L100.9950, L500.2500, L501.2300, L501.5200, L503.6075, L503.6150, L503.6550, L506.1000, L509.1000 #### [facility] [address] [place], [id number] (678) VITAMIN D,25 HYDROXY Collected: 03/10/2018 Status: F Source: [place] 2:25 PM [facility] REPOSITORY TYPE CODE TESTS RESULT OUT OF [...] L501.5200, L503.6075, L503.6150, L503.6550, L506.1000, L509.1000 #### [facility] [address] [facility] [place], [address] PTHIN Collected: 03/10/2018 Status: F Source: [place] 2:25 PM [facility] REPOSITORY TYPE CODE TESTS RESULT OUT OF RANGE REFERENCE UNITS LAB L509.1000 18.4-80.1 pg/mL Normal PTHIN 32.1 Performed By: #### L100.9950, L500.2500, L501.2300, L501.5200, L503.6075, L503.6150, L503.6550, L506.1000, L509.1000 #### [facility] [address] [place], [place], [id number] CALCIUM IONIZED Collected: 03/10/2018 Status: F Source: [place] 2:25 PM [facility] REPOSITORY TYPE CODE TESTS RESULT OUT OF RANGE REFERENCE UNITS LAB L3100.9600 4.5-5.6 mg/dL Normal IONIZED CA 5.5 Result Comment: Performed at: [address] [id number] Labor Relations Representative: Kingston William PhD, Phone: [phone] Performed By: #### L3100.9600 #### [facility] (refer to report for specific site) refer to report for address and phone number DISCHARGE SUMMARY Observed: 03/01/2018 Status: F Source: [place] 4:00 PM [facility] REPOSITORY [facility] Medical Records Department [address] [place] [address] Discharge Summary 03/01/18 1407 MR#: [id number] Acct: [id number] Name: VAZQUEZ ZAMBRANO Rep #: [id number] : 1950 68 From: Aleshia Chapin MD PCP: Power Esquivel MD Status: DIS IN Y Location: [place] [id number] Discharge Date and Diagnosis Date of Admission: [...] Course and Treatment Consultations 02/26/18 17:05 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 Routine Comment: Operations: None, - - Excision [...] applicable Code Visit Inpatient E AND M: 73781 Disch Hosp 03/01/18 1600 <Electronically signed by Aleshia Chapin MD> Date Aleshia Chapin MD Cosigner Signature (if applicable): Date CC: Power Esquivel MD; Aleshia Chapin MD Signed DISCHARGE INSTRUCTION Observed: 03/01/2018 Status: F Source: [place] 2:06 PM [facility] REPOSITORY [facility] Medical Records Department [address] [place] [address] Instructions for Home/Discharge Instructions 03/01/18 1405 MR#: [id number] Acct: [id number] Name: VAZQUEZ ZAMBRANO Rep #: [id number] : 1950 68 From: Aleshia Chapin MD [...] for appt Proposed Discharge Date: 03/01/18 03/01/18 8813 <Electronically signed by Aleshia Chapin MD> Date Aleshia Chapin MD CC: Power Esquivel MD; Lavon Joseph MD CONSULTATION Observed: 03/01/2018 Status: F Source: [place] 1:38 PM [facility] REPOSITORY [facility] Medical Records Department [address] [place] [address] Consultation 03/01/18 1330 MR#: [id number] Acct: [id number] Name: VAZQUEZ ZAMBRANO Rep #: [id number] : 1950 68 From: Lavon Joseph MD PCP: Power Esquivel MD Status: ADM IN Y Location: [facility] [id number] Problem List (1) Hematuria Status: Acute Qualifiers: [...] 03/01/2018 Status: F Source: [place] 11:46 AM [facility] REPOSITORY TYPE CODE TESTS RESULT OUT OF REFERENCE UNITS RANGE LAB L501.080 70-110 mg/dL High BEDSIDE GLU 179 Result Comment: MANAGEMENT OF PATIENT CARE PER NURSING PROTOCOL Performed By: #### L501.080 #### [facility] Point of Care [address] [place], [place] [address] BEDSIDE GLUCOSE Collected: 03/01/2018 Status: F Source: [place] 6:44 AM [facility] REPOSITORY TYPE CODE TESTS RESULT OUT OF REFERENCE UNITS RANGE LAB L501.080 70-110 mg/dL High BEDSIDE GLU 147 Result Comment: MANAGEMENT OF PATIENT CARE PER NURSING PROTOCOL Performed By: #### L501.080 #### [facility] Point of Care [address] [place] [address] CBC W/DIFF, AUTOMATED Collected: 03/01/2018 Status: F Source: [place] 3:50 AM [facility] REPOSITORY TYPE CODE TESTS RESULT OUT OF [...] Lymph 1.52 Performed By: #### L100.0100 #### [facility] [address] [place], [place], [id number] BASIC METABOLIC Collected: 03/01/2018 Status: F Source: [place] PROFILE (BMP) 3:50 AM [facility] REPOSITORY TYPE CODE TESTS RESULT OUT OF [...] GAP 8 Performed By: #### L500.2500 #### [facility] [address] [place], [place], [address] TOBRAMYCIN, RANDOM Collected: 03/01/2018 Status: F Source: [place] 3:50 AM [facility] REPOSITORY Order Comment: Comments: DRAW RANDOM LEVEL 12 HOURS AFTER 16:00 DOSE TYPE CODE TESTS RESULT OUT OF RANGE REFERENCE UNITS LAB L501.8950 ug/mL Normal 2.40 TOBRA,RANDOM Result Comment: Random level based on once daily dose of antibiotic. Please contact Pharmacy Services (#[phone]) for interpretation of results. This result does not represent either a peak or a trough level for this drug. Performed By: #### L501.8950 #### [facility] [address] [place], [place], [address] BEDSIDE GLUCOSE Collected: 02/28/2018 Status: F Source: [place] 9:36 PM [facility] REPOSITORY TYPE CODE TESTS RESULT OUT OF REFERENCE UNITS RANGE LAB L501.080 70-110 mg/dL High BEDSIDE GLU 174 Result Comment: MANAGEMENT OF PATIENT CARE PER NURSING PROTOCOL Performed By: #### L501.080 #### [facility] Point of Care [address] [place], [place] [address] BEDSIDE GLUCOSE Collected: 02/28/2018 Status: F Source: [place] 3:57 PM [facility] REPOSITORY TYPE CODE TESTS RESULT OUT OF REFERENCE UNITS RANGE LAB L501.080 70-110 mg/dL High BEDSIDE GLU 167 Result Comment: MANAGEMENT OF PATIENT CARE PER NURSING PROTOCOL Performed By: #### L501.080 #### [facility] Point of Care [address] [place], [place] [address] BEDSIDE GLUCOSE Collected: 02/28/2018 Status: F Source: [place] 11:49 AM [facility] REPOSITORY TYPE CODE TESTS RESULT OUT OF REFERENCE UNITS RANGE LAB L501.080 70-110 mg/dL High BEDSIDE GLU 174 Result Comment: MANAGEMENT OF PATIENT CARE PER NURSING PROTOCOL Performed By: #### L501.080 #### [facility] Point of Care [address] [place], [place] [address] BEDSIDE GLUCOSE Collected: 02/28/2018 Status: F Source: [place] 6:27 AM [facility] REPOSITORY TYPE CODE TESTS RESULT OUT OF REFERENCE UNITS RANGE LAB L501.080 70-110 mg/dL High BEDSIDE GLU 116 Result Comment: MANAGEMENT OF PATIENT CARE PER NURSING PROTOCOL Performed By: #### L501.080 #### [facility] Point of Care [address] [place] [address] CBC W/DIFF, AUTOMATED Collected: 02/28/2018 Status: F Source: [place] 6:13 AM [facility] REPOSITORY TYPE CODE TESTS RESULT OUT OF [...] Lymph 1.29 Performed By: #### L100.0100 #### [facility] [address] [place], [address] BASIC METABOLIC Collected: 02/28/2018 Status: F Source: [place] PROFILE ([facility]) 6:13 AM [facility] REPOSITORY TYPE CODE TESTS RESULT OUT OF [...] GAP 10 Performed By: #### L500.2500 #### [facility] [address] [facility] [place], [address] TOBRAMYCIN, RANDOM Collected: 02/28/2018 Status: F Source: [place] 6:13 AM [facility] REPOSITORY TYPE CODE TESTS RESULT OUT OF RANGE REFERENCE UNITS LAB L501.8950 ug/mL Normal 1.50 TOBRA,RANDOM Result Comment: Random level based on once daily dose of antibiotic. Please contact Pharmacy Services (#[phone]) for interpretation of results. This result does not represent either a peak or a trough level for this drug. Performed By: #### L501.8950 #### [facility] [address] [place], [address] BEDSIDE GLUCOSE Collected: 02/27/2018 Status: F Source: [place] 9:00 PM [facility] REPOSITORY TYPE CODE TESTS RESULT OUT OF REFERENCE UNITS RANGE LAB L501.080 70-110 mg/dL High BEDSIDE GLU 157 Result Comment: MANAGEMENT OF PATIENT CARE PER NURSING PROTOCOL Performed By: #### L501.080 #### [facility] Point of Care [address] [place] [address] BEDSIDE GLUCOSE Collected: 02/27/2018 Status: F Source: [place] 4:35 PM [facility] REPOSITORY TYPE CODE TESTS RESULT OUT OF REFERENCE UNITS RANGE LAB L501.080 70-110 mg/dL High BEDSIDE GLU 167 Result Comment: MANAGEMENT OF PATIENT CARE PER NURSING PROTOCOL Performed By: #### L501.080 #### [facility] Point of Care [address] [place] [address] BEDSIDE GLUCOSE Collected: 02/27/2018 Status: F Source: [place] 12:10 PM [facility] REPOSITORY TYPE CODE TESTS RESULT OUT OF REFERENCE UNITS RANGE LAB L501.080 70-110 mg/dL High BEDSIDE GLU 153 Result Comment: MANAGEMENT OF PATIENT CARE PER NURSING PROTOCOL Performed By: #### L501.080 #### [facility] Point of Care [address] [place], [place] [address] CBC W/DIFF, AUTOMATED Collected: 02/27/2018 Status: F Source: [place] 8:25 AM [facility] REPOSITORY Order Comment: VRI TYPE CODE TESTS [...] Lymph 1.06 Performed By: #### L100.0100 #### [facility] [address] [facility] [place], [address] BASIC METABOLIC Collected: 02/27/2018 Status: F Source: [place] PROFILE (BMP) 8:25 AM [facility] REPOSITORY Order Comment: VRI TYPE CODE TESTS [...] GAP 8 Performed By: #### L500.2500 #### [facility] [address] [place], [address] BEDSIDE GLUCOSE Collected: 02/27/2018 Status: F Source: [place] 6:40 AM [facility] REPOSITORY TYPE CODE TESTS RESULT OUT OF REFERENCE UNITS RANGE LAB L501.080 70-110 mg/dL High BEDSIDE GLU 119 Result Comment: MANAGEMENT OF PATIENT CARE PER NURSING PROTOCOL Performed By: #### L501.080 #### [facility] Point of Care [address] [facility] [place] [address] HH, HEMOGLOBIN AND Collected: 02/26/2018 Status: F Source: [place] HEMATOCRIT 11:14 PM [facility] REPOSITORY TYPE CODE TESTS RESULT OUT OF RANGE REFERENCE UNITS LAB L100.1300 12.0-15.0 g/dl Low HGB 9.8 LAB L100.1400 37-47 % Low HCT 31.4 Performed By: #### L100.0600 #### [facility] [facility] [address] [place], [address] BEDSIDE GLUCOSE Collected: 02/26/2018 Status: F Source: SARAH 10:10 PM [facility] REPOSITORY TYPE CODE TESTS RESULT OUT OF REFERENCE UNITS RANGE LAB L501.080 70-110 mg/dL High BEDSIDE GLU 161 Result Comment: MANAGEMENT OF PATIENT CARE PER NURSING PROTOCOL Performed By: #### L501.080 #### [facility] Point of Care [address] [facility] [place] [address] EMERGENCY DEPARTMENT Observed: 02/26/2018 Status: F Source: SARAH SUMMARY 6:33 PM [facility] REPOSITORY [facility] Medical Records Department [address] [place] [address] Emergency Department Summary 02/26/18 1259 MR#: [id number] Acct: [id number] Name: VAZQUEZ ZAMBRANO Rep #: [id number] : 1950 68 From: Terrell Jones MD [...] multidrug resistant. This note was generated with [employer] dictation software. It may contain incorrect words, spelling, and punctuation that were not noted in review of the chart prior to signing ED Disposition - Plan for ED Patient: Chief Complaint: Complaint What to do if you have Problems For any increased pain, shortness of breath, bleeding, nausea or vomiting, chest pain, or any unexpected problems, contact your Primary Care Provider. Call [employer] [facility] ([phone]) or report to the closest Emergency Room. Call 911 if necessary. 02/26/18 2058 <Electronically signed by Terrell Jones MD> Date Terrell Jones MD Cosigner Signature (If Indicated): Date CC: Power Esquivel MD BEDSIDE GLUCOSE Collected: 02/26/2018 Status: F Source: SARAH 5:56 PM [facility] REPOSITORY TYPE CODE TESTS RESULT OUT OF RANGE REFERENCE UNITS LAB L501.080 70-110 mg/dL Normal BEDSIDE GLU 90 Result Comment: MANAGEMENT OF PATIENT CARE PER NURSING PROTOCOL Performed By: #### L501.080 #### [facility] Point of Care [address] [place] [address]. [place] [address] HH, HEMOGLOBIN AND Collected: 02/26/2018 Status: F Source: SARAH HEMATOCRIT 5:23 PM [facility] REPOSITORY TYPE CODE TESTS RESULT OUT OF RANGE REFERENCE UNITS LAB L100.1300 12.0-15.0 g/dl Low HGB 11.6 LAB L100.1400 37-47 % Normal HCT 37.8 Performed By: #### L100.0600 #### [facility] [address] [facility] [place], [address] MAGNESIUM Collected: 02/26/2018 Status: F Source: SARAH 5:23 PM [facility] REPOSITORY TYPE CODE TESTS RESULT OUT OF RANGE REFERENCE UNITS LAB L501.5200 1.6-2.6 mg/dL Low MG 1.4 Performed By: #### L501.5200 #### [facility] [address] [facility] [place], [address] HISTORY AND PHYSICAL Observed: 02/26/2018 Status: F Source: SARAH EXAM 3:27 PM [facility] REPOSITORY [facility] Medical Records Department [address] [place] [address] [place] [address] History and Physical 02/26/18 1420 MR#: [id number] Acct: [id number] Name: VAZQUEZ ZAMBRANO Rep #: [id number] : 1950 68 From: Sari Frost PCP: [...] diabetes mellitus Status: Chronic Qualifiers: Diabetes mellitus shelter insulin use: without extermination inspector use Qualified Code(s): E11.40 - Type 2 [...] AOCD, Severe deconditioning who presents to the [facility] ED on 02/26/18 with history of hematuria [...] prolapse with anterior resection and rectopexy at [facility] in 2008 and back surgery 1979. Colostomy was November 2012. She had blood transfusions in October 2012 at [facility] for blood loss anemia. excision left ischial pressure sore with partial ostectomy for osteomyelitis and excision right ischial pressure sore and excision left lateral ankle pressure sore with partial ostectomy for osteomyelitis in 08/01. 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 (4) Diabetes mellitus type II: Hold [...] hematuria. Code Visit Inpatient E AND M: [id number] Init Hosp L3 02/26/18 1527 <Electronically signed by Sari Frost > Date Sari Frost Cosigner Signature: Date (if applicable) CC: Sari Frost; Power Esquivel MD Signed CBC W/DIFF, AUTOMATED Collected: 02/26/2018 Status: F Source: SARAH 1:10 PM [facility] REPOSITORY TYPE CODE TESTS RESULT OUT OF [...] Lymph 1.23 Performed By: #### L100.0100 #### [facility] [address] [facility] [address] [place], [place], [id number] PROTHROMBIN TIME W/INR Collected: 02/26/2018 Status: F Source: [place] 1:10 PM [facility] REPOSITORY TYPE CODE TESTS RESULT OUT OF RANGE REFERENCE UNITS LAB L300.4150 11.7-14.9 SECONDS Normal PROTIME 13.7 LAB L300.4200 Normal INR 1.1 Performed By: #### L300.3900, L300.4310 #### [facility] [address] [place], [address] PARTIAL THROMBOPLAST Collected: 02/26/2018 Status: F Source: [place] TIME 1:10 PM [facility] REPOSITORY TYPE CODE TESTS RESULT OUT OF RANGE REFERENCE UNITS LAB L300.4310 24.1-36.2 Seconds Normal PTT 32.2 Performed By: #### L300.3900, L300.4310 #### [facility] [address] [place], [place], [address] COMPREHENSIVE METABOLIC Collected: 02/26/2018 Status: F Source: SARAH SIMEON 1:10 PM [facility] REPOSITORY TYPE CODE TESTS RESULT OUT OF [...] GAP 9 Performed By: #### L500.4050 #### [facility] [address] [place], [place], [id number] LACTIC ACID Collected: 02/26/2018 Status: F Source: SARAH 1:10 PM [facility] REPOSITORY Order Comment: Yes/No query for Sepsis Lactate Rule Y TYPE CODE TESTS RESULT OUT OF RANGE REFERENCE UNITS LAB L503.6005 0.4-2.0 mmol/L Normal LACTIC ACID 1.8 Performed By: #### L503.6005 #### [facility] [address] [place], [place], [address] Observed: 02/26/2018 Status: F Source: SARAH CULTURE, BLOOD (WB) 1:10 PM [facility] REPOSITORY BC No growth in 5 days. Performed By: #### M200.1000 #### [facility] [address] [place], [place], [address] URINALYSIS, ROUTINE Collected: 02/22/2018 Status: F Source: SARAH (DIPSTICK) 5:41 PM [facility] REPOSITORY Order Comment: How was Urine Obtained? [...] ESTERASE 500 Performed By: #### L400.2011 #### [facility] [address] [place], [place], [address] Observed: 02/22/2018 Status: F Source: SARAH CULTURE, URINE 5:41 PM [facility] REPOSITORY RESULTS CALLED TO JOSELIN NURSE 02/25/18 0916 Vanna Thurston. REPORT READ BACK BY SAME. Urine Culture SAMPLE SENT TO [facility], POSSIBLE CARBAPENEMASE PRODUCING ORGANISM. Copy of report sent to Infection Control Printer MS#[id number] 02/25/18 0912 JESSICA. [facility] Report Identification Serratia marcescens TEST [...] Gene Not Detected ORGANISM 1: Serratia marcescens [place] Count >100,000 MARKER . Serratia marcescens: REACTION Amoxacillin/Clavulanic Acid $ >=32 R Cefazolin $ >=64 R Cefepime $ 4 R Ceftriaxone $ 32 R Ciprofloxacin $ 2 I Gentamicin $ <=1 S Levofloxacin $ >=8 R Nitrofurantoin $ 256 R Tobramycin $ 2 S Trimethoprim/Sulfametho $ >=320 R (NF) indicates non-formulary drug at [facility]. Approval by Infectious Disease Specialist required before non-formulary drugs may be ordered and/or dispensed. Performed By: #### M100.0650 #### [facility] [place], [address] Observed: 01/15/2018 Status: F Source: [place] CULTURE, DEEP WOUND 1:45 PM [facility] REPOSITORY Gram Stain Gram Stain [...] >=320 R (NF) indicates non-formulary drug at [facility]. Approval by Infectious Disease Specialist required [...] 1 S (NF) indicates non-formulary drug at [facility]. Approval by Infectious Disease Specialist required before non-formulary drugs may be ordered and/or dispensed. * CLSI guidelines does not recommend testing of cephalosporins. This interpretation is deduced from Beta-lactam/penicillin results. Cult, Anaerobic No anaerobic bacteria isolated. Performed By: #### M100.1500 #### [facility] [address] [facility] [place], [address] EMERGENCY DEPARTMENT Observed: 11/24/2017 Status: F Source: [place] SUMMARY 7:55 AM [facility] REPOSITORY [facility] Medical Records Department [address] [place] [address] Emergency Department Summary 11/23/17 1511 MR#: [id number] Acct: [id number] Name: VAZQUEZ ZAMBRANO Rep #: [id number] : 1950 67 From: Javid Fermin MD [...] rectal drainage This note was generated with [employer] software. It may contain incorrect words, spelling, [...] where, she either wants to go to [place] or [place]. At this time she continues to be on antibiotics which may cause her yeast infection to be worse. Otherwise patient will be discharged. This note was generated with [facility] software. It may contain incorrect words, spelling, and punctuation that were not noted in review of the chart prior to signing <Phani Ross - Last Filed: 11/23/17 17:31> ED Disposition [...] problems, contact your Primary Care Provider. Call [employer] [facility] ([phone]) or report to the closest Emergency Room. Call 911 if necessary. 11/24/17 0755 <Electronically signed by Javid Fermin MD> Date Javid Fermin MD 11/23/17 1732<Electronically signed by Phani Ross MD> Cosigner Signature (If Indicated): Date Phani Ross MD CC: Power Esquivel MD CBC W/DIFF, AUTOMATED Collected: 11/23/2017 Status: F Source: SARAH 1:40 PM [facility] REPOSITORY TYPE CODE TESTS RESULT OUT OF [...] Lymph 1.32 Performed By: #### L100.0100 #### [facility] [address] [place], [address] BASIC METABOLIC Collected: 11/23/2017 Status: F Source: [place] PROFILE ([facility]) 1:40 PM [facility] REPOSITORY TYPE CODE TESTS RESULT OUT OF [...] GAP 9 Performed By: #### L500.2500 #### [facility] [address] [facility] [place], [address] ABDOMEN/PELVIS W IV CONT Observed: 11/23/2017 Status: F Source: [place] ONLY 1:29 PM [facility] REPOSITORY [facility] Imaging Services [address] [place] [address] Abdomen/Pelvis W IV Cont ONLY MR#: [id number] Acct: [id number] Name: VAZQUEZ ZAMBRANO Rep #: [id number] : 1950 F 67 From: Deshaun Ham MD PCP: Power Esquivel MD Status: REG ER Study: Abdomen/Pelvis W IV Cont ONLY Date of Exam: 11/23/17 Exam# [id number] Ordering Dr: Javid Fermin MD STUDY: CT [...] CC: Power Esquivel MD; Javid Fermin MD Assistant Professor Of Anthropology: Signed PELVIS 1 OR 2 VIEWS Observed: 11/16/2017 Status: F Source: [place] 1:04 PM [facility] REPOSITORY [facility] Imaging Services [address] [place] [address] Pelvis 1 or 2 Views MR#: [id number] Acct: [id number] Name: VAZQUEZ ZAMBRANO Rep #: [id number] : 1950 F 67 From: Seb Huerta MD PCP: Power Esquivel MD Status: REG RCR Study: Pelvis 1 or 2 Views Date of Exam: 11/16/17 Exam# [id number] Ordering Dr: Vanessa Bull DO STUDY: X-RAY [...] CC: Power Esquivel MD; Vanessa Bull DO Assistant Professor Of Anthropology: Signed Observed: 11/13/2017 Status: F Source: [place] CULTURE, DEEP WOUND 2:00 PM [facility] REPOSITORY Comments: LEFT POST THIGH ULCER. Gram [...] >=320 R (NF) indicates non-formulary drug at [facility]. Approval by Infectious Disease Specialist required before non-formulary drugs may be ordered and/or dispensed. Cult, Anaerobic Studies have confirmed that Anaerobic Gram Positive Cocci are routinely susceptible to: Penicillin/Ampicillin, Ampicillin/Sulbactam, Piperacillin/Tazobactam, Cefoxatin, Ertapenem, Imipenem, Meropenem and Metronidazole and vary in resistance to: Clindamycin and Moxifloxacin. ORGANISM 1: Anaerobic cocci Performed By: #### M100.1500 #### [facility] [address] [place], [address] Observed: 10/02/2017 Status: F Source: [place] CULTURE, DEEP WOUND 2:00 PM [facility] REPOSITORY Comments: RIGHT GLUTE Gram Stain Gram [...] >=320 R (NF) indicates non-formulary drug at [facility]. Approval by Infectious Disease Specialist required before non-formulary drugs may be ordered and/or dispensed. Cult, Anaerobic No anaerobic bacteria isolated. Performed By: #### M100.1500 #### [facility] [address] [place], [address] DISCHARGE INSTRUCTION Observed: 09/16/2017 Status: F Source: [place] 1:06 PM [facility] REPOSITORY [facility] Medical Records Department [address] [place] [address] Instructions for Home/Discharge Instructions 09/16/17 1300 MR#: [id number] Acct: [id number] Name: VAZQUEZ ZAMBRANO Rep #: [id number] : 1950 67 From: Derrick Silva MD PCP: Power Esquivel MD Status: REG [facility] ADDENDUM by Derrick Silva MD on 09/16/17 [...] follow up appt in two months. 09/16/17 3852 <Electronically signed by Derrick Silva MD> Date Derrick Silva MD CC: Power Esquivel MD OPERATIVE REPORT Observed: 09/16/2017 Status: F Source: SARAH 1:05 PM [facility] REPOSITORY [facility] Medical Records Department [address] [place] [address] Operative Report 09/16/17 1302 MR#: [id number] Acct: [id number] Name: VAZQUEZ ZAMBRANO Rep #: [id number] : 1950 67 From: Derrick Silva MD PCP: Power Esquivel MD Status: REG SDC Y Location: [place] [address] Report of Operation Date of Procedure: 09/16/17 [...] back to the operating room at the [facility] she was placed supine on the table [...] into the sheath to place a 16 German catheter 10 cc in the balloon I [...] 09/16/2017 Status: F Source: SARAH 11:02 AM [facility] REPOSITORY TYPE CODE TESTS RESULT OUT OF REFERENCE UNITS RANGE LAB L501.080 70-110 mg/dL High BEDSIDE GLU 126 Result Comment: MANAGEMENT OF PATIENT CARE PER NURSING PROTOCOL Performed By: #### L501.080 #### [facility] Point of Care [address] [place] [address] WOUND CTR HISTORY Observed: 08/24/2017 Status: F Source: SARAH AND PHYSICAL 2:27 PM [facility] REPOSITORY [facility] Wound Healing Center [address] [place] [address] Wound Ctr History AND Physical 08/24/17 1414 MR#: [id number] Acct: [id number] Name: VAZQUEZ ZAMBRANO Rep #: [id number] : 1950 67 From: Joaquín Lind MD [...] ulcers. She lives with her brother and [id number]-ig-rgj, who help dress her ulcers/wounds. She has [...] prolapse with anterior resection and rectopexy at [facility] in 2008 and back surgery 1979. Colostomy was November 2012. She had blood transfusions in October 2012 at [facility] for blood loss anemia. excision left ischial [...] Recorded Date Recorded By Document 08/24/17 13:29 [facility] [id number] 08/24/17 13:51 [facility] Wound Center Nurse 1 [Ulcer Assessment] #11 [...] F Source: SARAH AND PHYSICAL 3:42 PM [facility] REPOSITORY [facility] Wound [facility]aling Center [address] [place] [address] Wound Ctr History AND Physical 08/10/17 1530 MR#: [id number] Acct: [id number] Name: VAZQUEZ ZAMBRANO Rep #: [id number] : 1950 67 From: Joauqín Lind MD PCP: Power Esquivel MD Status: [...] antibiotics. She was abruptly released from the [facility] after only a few weeks, before [...] ulcers. She lives with her brother and [id number]-gd-tqr, who help address her ulcers/wounds. She has [...] prolapse with anterior resection and rectopexy at [facility] in 2008 and back surgery 1979. Colostomy was November 2012. She had blood transfusions in October 2012 at [facility] for blood loss anemia. excision left ischial [...] - Patient lives with her brother and xdyyxf-ft-asd. Smoking Status: Never smoker Tobacco Use: Non-smoker [...] Date Recorded By Document 08/10/17 13:57 DV [id number] 08/10/17 14:17 DV Wound Center Nurse 1 [Ulcer Assessment] WC - Nurse 2 - General Ulcer CM Notes Start: 07/27/17 13:14 Freq: Status: Active Protocol: Activity Type Activity Date Activity User E-Sign Co-Sign Detail Recorded Client Recorded Date Recorded By Document 08/10/17 15:23 DV [id number] 08/10/17 15:25 DV Wound Center Nurse 2 [...] Campbell MD at 12:52 EDT Tel Direct: [phone], Service support , Active Problems Open wound [...] 2 VIEWS Observed: 08/05/2017 Status: F Source: [place] 12:54 PM [facility] REPOSITORY [facility] Imaging Services [address] [place] [address] Pelvis 1 or 2 Views MR#: [id number] Acct: [id number] Name: VAZQUEZ ZAMBRANO Rep #: [id number] : 1950 F 67 From: Essie Campbell MD PCP: Power Esquivel MD Status: REG RCR Study: Pelvis 1 or 2 Views Date of Exam: 08/05/17 Exam# [id number] Ordering Dr: Joaquín Lind MD STUDY: X-RAY [...] Campbell MD at 12:52 EDT Tel Direct: [phone], Service support , CC: Power Esquivel MD; Joaquín Lind MD Assistant Professor Of Anthropology: Signed WOUND CTR HISTORY Observed: 07/27/2017 Status: F Source: SARAH AND PHYSICAL 2:17 PM [facility] REPOSITORY [facility] Wound Healing Center [address] [place] [address] Wound Ctr History AND Physical 07/27/17 1356 MR#: [id number] Acct: [id number] Name: VAZQUEZ ZAMBRANO Rep #: [id number] : 1950 67 From: Joaquín Lind MD [...] ulcers. She lives with her brother and uvczad-sg-bpm, who help address her ulcers/wounds. She has [...] prolapse with anterior resection and rectopexy at [facility] in 2008 and back surgery 1979. Colostomy was November 2012. She had blood transfusions in October 2012 at [facility] for blood loss anemia. excision left ischial [...] - Patient lives with her brother and nuavse-rw-zlq. Smoking Status: Never smoker Tobacco Use: Non-smoker [...] Date Recorded By Document 07/27/17 13:14 DL [id number] 07/27/17 13:24 DL Wound Center Nurse 1 [...] CC: Signed Observed: 07/17/2017 Status: F Source: [facility], DEEP WOUND 3:15 PM [facility] REPOSITORY Comments: LEEFT POSTERIOR UPPER THIGH ULCER [...] >=320 R (NF) indicates non-formulary drug at [facility]. Approval by Infectious Disease Specialist required before non-formulary drugs may be ordered and/or dispensed. Cult, Anaerobic No anaerobic bacteria isolated. Performed By: #### M100.1500 #### [facility] [address] [place], [address] BEDSIDE GLUCOSE Collected: 07/08/2017 Status: F Source: [place] 12:17 PM [facility] REPOSITORY TYPE CODE TESTS RESULT OUT OF RANGE REFERENCE UNITS LAB L501.080 70-110 mg/dL Normal BEDSIDE GLU 109 Result Comment: MANAGEMENT OF PATIENT CARE PER NURSING PROTOCOL Performed By: #### L501.080 #### [facility] Point of Care [address] [facility] [place] [address] OPERATIVE REPORT Observed: 07/08/2017 Status: F Source: [place] 11:50 AM [facility] REPOSITORY [facility] Medical Records Department [address] [place] [address] Operative Report 07/08/17 1144 MR#: [id number] Acct: [id number] Name: VAZQUEZ ZAMBRANO Rep #: [id number] : 1950 67 From: Derrick Silva MD PCP: Power Esquivel MD Status: [facility] Y Location: [place] [address] Problem List (1) Pressure ulcer of left [...] the catheter in it was a 16 German catheter inflated 10 cc in the balloon [...] BEDSIDE GLUCOSE Collected: 07/08/2017 Status: F Source: [place] 10:49 AM [facility] REPOSITORY TYPE CODE TESTS RESULT OUT OF REFERENCE UNITS RANGE LAB L501.080 70-110 mg/dL High BEDSIDE GLU 135 Result Comment: MANAGEMENT OF PATIENT CARE PER NURSING PROTOCOL Performed By: #### L501.080 #### [facility] Point of Care [address] [facility] [place] [address] DISCHARGE INSTRUCTION Observed: 07/08/2017 Status: F Source: [place] 10:46 AM [facility] REPOSITORY [facility] Medical Records Department [address] [place] [address] Instructions for Home/Discharge Instructions 07/08/17 1040 MR#: [id number] Acct: [id number] Name: VAZQUEZ ZAMBRANO Rep #: [id number] : 1950 67 From: Derrick Silva MD PCP: Power Esquivel MD Status: REG [facility] Discharge Diet: Light diet - advance as [...] Source: SARAH CULTURE, DEEP WOUND 1:30 PM [facility] REPOSITORY Comments: RIGHT SIDE Gram Stain Gram [...] 1 S (NF) indicates non-formulary drug at [facility]. Approval by Infectious Disease Specialist required [...] >=320 R (NF) indicates non-formulary drug at [facility]. Approval by Infectious Disease Specialist required before non-formulary drugs may be ordered and/or dispensed. Cult, Anaerobic No anaerobic bacteria isolated. Performed By: #### M100.1500 #### [facility] [place], [address] CBC W/DIFF, AUTOMATED Collected: 06/03/2017 Status: F Source: [place] 2:06 PM [facility] REPOSITORY Order Comment: Order Date: 06/03/17 Order [...] #### L100.0100, L501.9985, L500.4050, L500.4100, L501.9520 #### [facility] [address] [facility] [place], [place], [address] HEMOGLOBIN A1C Collected: 06/03/2017 Status: F Source: [place] 2:06 PM [facility] REPOSITORY Order Comment: Order Date: 06/03/17 Order Info: 4548-4 - A1C TYPE CODE TESTS RESULT OUT OF RANGE REFERENCE UNITS LAB L501.9985 4.2-6.3 % High HGB A1C 6.9 Performed By: #### L100.0100, L501.9985, L500.4050, L500.4100, L501.9520 #### [facility] [address] [place], [address] COMPREHENSIVE METABOLIC Collected: 06/03/2017 Status: F Source: [facility] 2:06 PM [facility] REPOSITORY Order Comment: Order Date: 06/03/17 Order Info: [id number] - CMP Order Info: [id number] - LIPID Order Info: 3016-3 - TSH [...] #### L100.0100, L501.9985, L500.4050, L500.4100, L501.9520 #### [facility] [address] [place], [place], [address] LIPID PROFILE Collected: 06/03/2017 Status: F Source: SARAH 2:06 PM [facility] REPOSITORY Order Comment: Order Date: 06/03/17 Order Info: [id number] - CMP Order Info: [id number] - LIPID Order Info: 3016-3 - TSH [...] #### L100.0100, L501.9985, L500.4050, L500.4100, L501.9520 #### [facility] [address] [place], [place], [address] THYROID STIM HORMONE Collected: 06/03/2017 Status: F Source: SARAH (TSH) 2:06 PM [facility] REPOSITORY Order Comment: Order Date: 06/03/17 Order Info: [id number] - CMP Order Info: [id number] - LIPID Order Info: 3016-3 - TSH TYPE CODE TESTS RESULT OUT OF RANGE REFERENCE UNITS LAB L501.9520 0.358-3.74 uIU/mL Normal TSH 1.04 Performed By: #### L100.0100, L501.9985, L500.4050, L500.4100, L501.9520 #### [facility] [address] 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 She was abruptly released from the [facility] after only a few wks, before [...] prolapse with anterior resection and rectopexy at [facility] in 2008 and back surgery 1979. Colostomy was November 2012. She had blood transfusions in October 2012 at [facility] for blood loss anemia. excision left ischial [...] Recorded Date Recorded By Document 05/08/17 13:35 [facility] [id number] 05/08/17 13:51 [facility] Wound Center Nurse 1 [Ulcer Assessment Protocol: WC.WD.LOC] #7- Stage III pressure ulcer RT GLUTEAL FOLD - Nurse 2 - General Ulcer CM Notes Start: 05/08/17 13:33 Freq: Status: Active Protocol: Activity Type Activity Date Activity User E-Sign Co-Sign Detail Recorded Client Recorded Date Recorded By Document 05/08/17 14:34 [id number] 05/08/17 14:42 Wound Center Nurse 2 [Procedure/Treatment] [...] Recorded Date Recorded By Document 05/08/17 14:34 [id number] 05/08/17 14:42 Wound Center Nurse 2 #7- [...] 6 wks in a bed in a [facility] which she thinks would cause more [...] in 1 week. Nursing notes reviewed. 05/08/17 1810 <Electronically signed by Vanessa Bull DO> Date Vanessa Bull DO CC: Signed Observed: 05/08/2017 Status: F Source: SARAH CULTURE, DEEP WOUND 2:30 PM [facility] REPOSITORY Gram Stain Gram Stain Rare Gram [...] >=320 R (NF) indicates non-formulary drug at [facility]. Approval by Infectious Disease Specialist required before non-formulary drugs may be ordered and/or dispensed. Pseudomonas aeroginosa: REACTION Cefepime $ 4 S Ceftazidime *NF 2 S Ciprofloxacin $ <=0.25 S Gentamicin $ 4 S Imipenem *NF 2 S Levofloxacin $ <=0.12 S Piperacillin/Tazobactam $$ 16 S Tobramycin $ <=1 S (NF) indicates non-formulary drug at [facility]. Approval by Infectious Disease Specialist required before non-formulary drugs may be ordered and/or dispensed. Enterococcus faecalis: REACTION Ampicillin $ <=2 S Benzylpenicillin NF 4 S Gentamicin SYN-S S Linezolid $$$$ 2 S Tigecycline $$$$ <=0.12 S Streptomycin $ SYN-S S Vancomycin $ 1 S (NF) indicates non-formulary drug at [facility]. Approval by Infectious Disease Specialist required [...] Anaerobic cocci Performed By: #### M100.1500 #### [facility] [place], [address] ALLERGIES ALLERGIES DATE TYPE / CODE NAME / CODE REACTION SEVERITY SOURCE 03/24/2018 Drug No Known Unknown [facility] Allergy/4160 Allergies/F00 Hospital 20637(SNOMED 3798579(RXNOR Repository CT) M) ENCOUNTERS ENCOUNTERS ADMIT/DISCHARGE ACCOUNT ADMITTING ENCOUNTER LOCATION SOURCE NUMBER CLASS 04/02/2018 [id number] Ambulatory [place] Sarah 4 [facility] ing: Repository 03/30/2018 [id number] Ambulatory [place] Sarah 9 [facility] ing:[facility] Repository 03/24/2018/ [id number] Ambulatory BMSBuilding:B [place] 8 0 [facility] Repository 03/22/2018 [id number] Ambulatory Sarah Sarah 6 [facility] ing:[facility] Repository 03/19/2018/ [id number] Ambulatory [place] Sarah 8 3 [facility] ing: Repository 03/15/2018/ [id number] Ambulatory BMSBuilding:B [place] 8 4 [facility] Repository 03/10/2018 [id number] Ambulatory Sarah Sarah 5 [facility] ing:[facility]AB Repository 02/26/2018/ [id number] White, Sari Inpatient Sarah [place] 8 9 [facility] ing:XM5Amnu: Repository EV554Bej: 1 02/26/2018 [id number] White, Sari Ambulatory BMSBuilding:B [place] 2 [facility] Repository 02/26/2018 [id number] White, Sari Ambulatory BMSBuilding:B [place] 0 [facility] Repository 02/26/2018 [id number] White, Sari Ambulatory BMSBuilding:B Sarah 3 [facility] Repository 02/26/2018 [id number] White, Ambulatory BMSBuilding:B Sarah 6 [facility] Repository 02/22/2018/ [id number] Ambulatory Sarah Sarah 8 9 [facility] ing:HHLAB Repository 02/12/2018/ [id number] Ambulatory [place] 8 4 [facility] ing:WC Repository 01/15/2018/ [id number] Ambulatory Sarah [place] 8 4 [facility] ing:WC Repository 12/11/2017/ [id number] Ambulatory [place] Sarah 8 7 [facility] ing:WC Repository 11/23/2017/ [id number] Emergency Sarah Sarah 8 8 [facility] ing:ED Repository 11/13/2017/ [id number] Ambulatory Sarah [place] [address] [facility] ing:WC Repository 10/16/2017/ [id number] Ambulatory Sarah [place] [address] [facility] ing:WC Repository 09/16/2017/ [id number] Ambulatory [place] [address] [facility] Repository 09/07/2017/ [id number] Ambulatory Sarah Sarah [address] [facility]WC Repository 08/10/2017/ [id number] Ambulatory [place] 8 9 [facility] ing:WC Repository 07/17/2017/ [id number] Ambulatory [place] 8 2 [facility] ing:WC Repository 07/08/2017/ [id number] Ambulatory [place] 8 7 [facility] ing:SDC Repository 06/12/2017/ [id number] Ambulatory Sarah Sarah 8 2 [facility] ing:WC Repository 06/03/2017 [id number] Ambulatory [place] 8 [facility] ing:MFPLAB Repository 05/15/2017/ [id number] Ambulatory Sarah Sarah 8 4 [facility] ing:WC Repository 04/07/2017 [id number] Ambulatory Sarah Sarah 6 [facility] ing:LABSPEC Repository PAYERS PAYERS ENCOUNTER GUARANTOR PAYER SUBSCRIBER SOURCE 04/02/2018 VAZQUEZ Mann Primary VAZQUEZ Mann [place] [id number] N Insurance:MEDICAIDPol [facility]: [id number] [id number] Repository 15590Kfy: (330) Date:2017-03-20 () 04/02/2018 Secondary NOT GIVENUNK Sarah Insurance:SELF PAY [facility] Number: Effective Repository Date:2018-03-20 03/30/2018 VAZQUEZ Mann Primary VAZQUEZ Mann Sarah [id number] N Insurance:MEDICAIDPol [facility] Number: [id number], [place] [id number] Repository 06140Cwt: (330) Date:2018-02-22335 (HP) 03/30/2018 Secondary NOT GIVENUNK Sarah Insurance:SELF PAY [facility] Number: Effective Repository Date:2018-03-20 03/24/2018 VAZQUEZ Mann Primary VAZQUEZ Mann Sarah [id number] N Insurance:MEDICAIDPol [facility] Number: [id number], [place] [id number] Repository 63[address]Swu: (330) Date:2018-03-15 (HP) 03/24/2018 Secondary NOT GIVENUNK [place] Insurance:SELF PAY [facility]: Effective Repository Date:2018-03-24 03/22/2018 VAZQUEZ Mann Primary VAZQUEZ Mann Sarah [id number] N Insurance:MEDICAIDPol KEENERDOB: [facility] [address] Number: [id number], [place] [id number] Repository 23176Rcm: (330) Date:2018-03-15 (HP) 03/22/2018 Secondary NOT GIVENUNK [place] Insurance:SELF PAY [facility] Number: Effective Repository Date:2018-03-15 03/19/2018 VAZQUEZ E Primary VAZQUEZ Mann [place] [id number] N Insurance:MEDICAIDPol KEENERDOB: [facility] [address] icy Number: [id number], [place] [id number] Repository 99717Umt: (330) Date:2017-03-20 () 03/19/2018 Secondary NOT GIVENUNK [place] Insurance:SELF PAY [facility]: Effective Repository Date:2018-02-18 03/15/2018 VAZQUEZ E Primary VAZQUEZ Mann [place] [id number] N Insurance:MEDICAIDPol KEENERDOB: [facility] [address] icy Number: [id number], [place] [id number] Repository 64367Gos: (330) Date:2018-03-01 (HP) 03/15/2018 Secondary NOT GIVENUNK [place] Insurance:SELF PAY [facility] Number: Effective Repository Date:2018-03-01 03/10/2018 VAZQUEZ E Primary VAZQUEZ Mann [place] [id number] N Insurance:MEDICAIDPol KEENERDOB: [facility] [address] icy Number: [id number], [place] [id number] Repository 14923Lia: (330) Date:2018-03-10335 (HP) 03/10/2018 Secondary NOT GIVENUNK Sarah Insurance:SELF PAY [facility] Number: Effective Repository Date:2018-03-10 02/26/2018 VAZQUEZ E Primary VAZQUEZ Mann [place] [id number] N Insurance:MEDICAIDPol KEENERDOB: [facility] [address] icy Number: [id number], [place] [id number] Repository 67188Hln: (330) Date:2018-02-26 () 02/26/2018 Secondary NOT GIVENUNK Sarah Insurance:SELF PAY [facility] Number: Effective Repository Date:2018-02-26 02/26/2018 VAZQUEZ E Primary VAZQUEZ Mann [place] [id number] N Insurance:MEDICAIDPol KEENERDOB: [facility] [address] icy Number: [id number], [place] [id number] Repository 78547Plg: (330) Date:2018-02-26 () 02/26/2018 Secondary NOT GIVENUNK Sarah Insurance:SELF PAY [facility] Number: Effective Repository Date:2018-02-26 02/26/2018 VAZQUEZ E Primary VAZQUEZ Mann [place] [id number] N Insurance:MEDICAIDPol KEENERDOB: [facility] [address] icy Number: [id number], [place] [id number] Repository 25981Jti: (330) Date:2018-02-26 () 02/26/2018 Secondary NOT GIVENUNK [place] Insurance:SELF PAY [facility] Number: Effective Repository Date:2018-02-26 02/26/2018 VAZQUEZ E Primary VAZQUEZ Mann Sarah [id number] N Insurance:MEDICAIDPol KEENERDOB: [facility] [address] icy Number: [id number], [place] [id number] Repository 78070Yeb: (330) Date:2018-02-26 () 02/26/2018 Secondary NOT GIVENUNK [place] Insurance:SELF PAY [facility] Number: Effective Repository Date:2018-02-26 02/26/2018 VAZQUEZ E Primary VAZQUEZ Mann [place] [id number] N Insurance:MEDICAIDPol KEENERDOB: [facility] [address] icy Number: [id number], [place] [id number] Repository 82988Xfo: (330) Date:2018-02-26 () 02/26/2018 Secondary NOT GIVENUNK [place] Insurance:SELF PAY [facility] Number: Effective Repository Date:2018-02-26 02/22/2018 VAZQUEZ Mann Primary VAZQUEZ C[place] [id number] N Insurance:MEDICAIDPol KEENERDOB: [place] [address] icy Number: [id number], [place] [id number] Repository 99372Cwq: (330) Date:2018-02-22 () 02/22/2018 Secondary NOT GIVENUNK Sarah Insurance:SELF PAY [facility] Number: Effective Repository Date:2018-02-22 02/12/2018 VAZQUEZ Mann Primary VAZQUEZ Mann [place] [id number] N Insurance:MEDICAIDPol KEENERDOB: [facility] [address] icy Number: [id number], [place] [id number] Repository 40634Qzq: (330) Date:2017-03-20 () 02/12/2018 Secondary NOT GIVENUNK Sarah Insurance:SELF PAY [facility] Number: Effective Repository Date:2018-01-18 01/15/2018 VAZQUEZ Mann Primary VAZQEUZ Mann [place] [id number] N Insurance:MEDICAIDPol KEENERDOB: [place] [address] icy Number: [id number], [place] [id number] Repository 03646Blp: (330) Date:2017-03-20 () 01/15/2018 Secondary NOT GIVENUNK [place] Insurance:SELF PAY [facility] Number: Effective Repository Date:2017-12-19 12/11/2017 VAZQUEZ Mann Primary VAZQUEZ Mann [place] [id number] N Insurance:MEDICAIDPol KEENERDOB: [place] [address] icy Number: [id number], [place] [id number] Repository 75521Hal: (330) Date:2017-03-20 () 12/11/2017 Secondary NOT GIVENUNK Sarah Insurance:SELF PAY [facility] Number: Effective Repository Date:2017-11-18 11/23/2017 VAZQUEZ E Primary VAZQUEZ Mann Sarah [id number] N Insurance:MEDICAIDPol KE[place]DOB: [place] [address] icy Number: [id number], [place] [id number] Repository 32779Vge: (330) Date:2017-11-23 () 11/23/2017 Secondary NOT GIVENUNK [place] Insurance:SELF PAY [facility] Number: Effective Repository Date:2017-11-23 11/13/2017 VAZQUEZ E Primary VAZQUEZ Mann [place] [id number] N Insurance:MEDICAIDPol KE[place]DOB: [place] [address] icy Number: [id number], [place] [id number] Repository 65737Dke: (330) Date:2017-03-20 () 11/13/2017 Secondary NOT GIVENUNK [place] Insurance:SELF PAY [facility] Number: Effective Repository Date:2017-10-18 10/16/2017 VAZQUEZ E Primary VAZQUEZ Mann Sarah [id number] N Insurance:MEDICAIDPol KE[place]DOB: [place] [address] icy Number: [id number], [place] [id number] Repository 54815Qyf: (330) Date:2017-03-20 () 10/16/2017 Secondary NOT GIVENUNK [place] Insurance:SELF PAY [facility] Number: Effective Repository Date:2017-09-18 09/16/2017 VAZQUEZ E Primary VAZQUEZ Mann [place] [id number] N Insurance:MEDICAIDPol KE[place]DOB: [place] [address] icy Number: [id number], [place] [id number] Repository 69[address]Fdp: (330) Date:2017-08-25 () 09/16/2017 Secondary NOT GIVENUNK Sarah Insurance:SELF PAY [facility] Number: Effective Repository Date:2017-08-25 09/07/2017 VAZQUEZ E Primary VAZQUEZ Mann [place] [id number] N Insurance:MEDICAIDPol KE[place]DOB: [place] [address] icy Number: [id number], [place] [id number] Repository 56431Uke: (330) Date:2017-03-20 (HP) 09/07/2017 Secondary NOT GIVENUNK [place] Insurance:SELF PAY [facility] Number: Effective Repository Date:2017-08-18 08/10/2017 VAZQUEZ E Primary VAZQUEZ Mann [place] [id number] N Insurance:MEDICAIDPol KE[place]DOB: [place] [address] icy Number: [id number], [place] [id number] Repository 43849Agy: (330) Date:2017-03-20 (HP) 08/10/2017 Secondary NOT GIVENUNK [place] Insurance:SELF PAY [facility] Number: Effective Repository Date:2017-07-19 07/17/2017 VAZQUEZ E Primary VAZQUEZ Mann [place] [id number] N Insurance:MEDICAIDPol KE[place]DOB: [place] [address] icy Number: [id number], [place] [id number] Repository 47136Ijo: (330) Date:2017-03-20 (HP) 07/17/2017 Secondary NOT GIVENUNK Sarah Insurance:SELF PAY [facility] Number: Effective Repository Date:2017-06-18 07/08/2017 VAZQUEZ E Primary VAZQUEZ Mann Sarah [id number] N Insurance:MEDICAIDPol [place]DOB: [place] [address] icy Number: [id number], [place] [id number] Repository 43853Jol: (330) Date:2017-06-16 (HP) 07/08/2017 Secondary NOT GIVENUNK Sarah Insurance:SELF PAY [facility] Number: Effective Repository Date:2017-06-16 06/12/2017 VAZQUEZ [id number] Primary VAZQUEZ KE[place]DOB: [place] [address] Insurance:MEDICAIDPol [id number], [place] icy Number: Hospital [id number]: (330) [id number] Repository (HP) Date:2017-03-20 06/12/2017 Secondary NOT GIVENUNK [place] Insurance:SELF PAY [facility] Number: Effective Repository Date:2017-05-21 06/03/2017 VAZQUEZ [id number] Primary VAZQUEZ RICHARDSB: [place] [address] Insurance:MEDICAIDPol [id number], [place] icy Number: Hospital [id number]: 330 [id number] Repository [phone] (HP) Date:2017-06-03 06/03/2017 Secondary NOT GIVENUNK Sarah Insurance:SELF PAY [facility] Number: Effective Repository Date:2017-06-03 05/15/2017 VAZQUEZ [id number] Primary VAZQUEZ RICHARDSB: Sarah [address] Insurance:MEDICAIDPol [id number], [place] icy Number: Hospital [id number]: 330 [id number] Repository [phone] (HP) Date:2017-03-20 05/15/2017 Secondary NOT GIVENUNK [place] Insurance:SELF PAY [facility] Number: Effective Repository Date:2017-04-20 04/07/2017 VAZQUEZ [id number] Primary VAZQUEZ RICHARDSB: Sarah [address] Insurance:MEDICAIDPol [id number], [place] icy Number: Hospital 8[address]Goi: 330 [id number] Repository [phone] (HP) Date:2017-04-07 04/07/2017 Secondary NOT GIVENUNK [place] Insurance:SELF PAY [facility] Number: Effective Repository Date:2017-04-07
== END ==
PROVIDERS: Family Provider Family Medicine; PCP Family Medicine; Referring Provider Surgery; Visit Provider Surgery
DX: K62.89 Other specified diseases of anus and rectum (principal)
CPT/HCPCS: 74270

== ENCOUNTER 2018-04-08 03:09 | Inpatient (IN) | payer MEDICAID, SELFPAY ==
[2018-03-24 13:11] VITALS: BMI 30.8
[2018-04-08] VITALS (7 sets, daily range): BP systolic 92–111; BP diastolic 48–66; PULSE 100–110; RESP 14–18; TEMP 36.3–37.6; O2SAT 93–99; BMI 30.1
[2018-04-08 03:39] LABS: Absolute Lymphocyte Count 1.05 X10^3/ul (0.83-4.51); Absolute Neutrophil Count 7.7 X10^3/uL (2.0-7.7); Basophil# 0.02 X10^3/uL; Basophil% 0.2 % (0-1); Eosinophil# 0.16 X10^3/uL; Eosinophils% 1.6 % (0-5); Hematocrit 32.9 % (37-47); Hemoglobin 10.5 g/dl (12.0-15.0); Lymphocyte # 1.05 X10^3/ul (4.0); Lymphocyte % 10.5 % (19-41); Mean Corp Hgb Conc 31.9 g/gl (32-36); Mean Corpuscular Hgb 26.6 pg (27.0-32.0); Mean Corpuscular Volume 83.3 fL (81-99); Mean Platelet Vol. 8.9 fl (6.2-12.0); Monocyte# 1.02 X10^3/uL; Monocyte% 10.2 % (0-10); Neutrophil # 7.74 X10^3/uL (2.7-7.7); Neutrophil % 77.1 % (47-70); Platelet Count 275 K/mm3 (150-450); RBC Distribution Width CV 16.3 % (11.6-14.6); RBC Distribution Width SD 49.1 fl (35.1-43.9); Red Blood Count 3.95 M/mm3 (4.2-5.4)
[2018-04-08 03:40] LABS: POSITIVE COUNT NO; POSITIVE DIFFERENTIAL NO; POSITIVE MORPHOLOGY NO
[2018-04-08] MEDS: Ondansetron 4 MG/2 ML Vial IV (03:43)
[2018-04-08] MEDS: Morphine 4 MG/ML Syringe IV ×2 (03:43→14:31)
[2018-04-08 03:56] LABS: Anion Gap 11 (5-15); BUN 32 mg/dL (7-18); BUN/Creat Ratio 40.7 RATIO (10-20); Calcium,Total 8.5 mg/dL (8.5-10.1); Chloride 101 mmol/L (98-107); Creatinine, Serum 0.79 mg/dL (0.55-1.02); EST Glomerular Filtration Rate 77 mL/min (>60); Est Glom Filt Rate - Afr Amer 93 mL/min (>60); Estimated Creatinine Clearance 41.99 ml/min; Glucose 144 mg/dL (74-106); Potassium 3.8 mmol/L (3.5-5.1); Sodium Level 138 mmol/L (136-145)
[2018-04-08 04:03] LABS: Mucous, Urine 0 SEEN /hpf (<or=2+)
[2018-04-08 04:06] LABS: Color, Urine Yellow (Yellow); Glucose, Dipstick Normal (Normal); Ketone-Dipstick 5 mg/dl (Negative); Leukocyte Esterase-Dipstick 500 /ul (Negative); Nitrite-Dipstick Positive (Negative); Occult Blood-Urine 250 /ul (Negative); Protein-Dipstick 100 mg/dl (Negative); Urine Bilirubin Dipstick Negative (Negative); Urine Clarity Cloudy (Clear); Urine Urobilinogen Normal (Normal)
[2018-04-08 04:11] LABS: Bacteria 3+ /hpf (None Seen); Red Blood Cells-Urine 5-10 SEEN /hpf (0-5); Squamous Epithelial Cells - UA 0-5 SEEN /hpf (5-10); White Blood Cells 50-100 SEEN /hpf (0-5)
--- NOTE | 2018-04-08 04:36 | ED.VISSUMM ---
- ER Visit Summary Date of Service: 04/08/18 Chief Complaint: [Bilateral leg pain] History of Present Illness: The patient is a 68 F [presents the emergency department complaint of bilateral leg pain that she said for 2-3 days. Patient states she has had pain similarly for years but never lasted this long. Patient states she cannot sleep at night. Patient states the pain seems to be in different places at times in her feet at times in her thighs. Patient is nonambulatory she cannot really tell me why she does not ambulate. She does transfer herself from wheelchair. Patient denies any recent falls or injuries. She denies any back pain. Patient does have a history of diabetes, hypertension, high cholesterol, neurogenic bladder, UTIs, gout, chronic osteomyelitis of her sacrum. Patient denies any fevers at home. She denies nausea or vomiting. She denies abdominal pain. Her heard her screaming last night because of the amount of pain she was in and they called the EMS to bring her in.] Physical Examination: [HEENT-PERRLA, EOMI. Cranial nerves II through XII grossly intact. TMs clear. Mucous membranes moist. No adenopathy. Cardiovascular-regular rate and rhythm without murmur or ectopy Lungs-clear to auscultation, chest wall stable without crepitus or subcu emphysema Abdomen-normoactive bowel sounds, soft, nontender, no rebound or rigidity, no peritoneal signs. Extremities-intact ?4, normal range of motion, normal pulses, atraumatic. No erythema or warmth noted to the extremities. No ropes or cords palpated. Patient does have some movement in her lower extremities but she is generally weak with strength of 3 out of 5 bilaterally] Test Results: [CBC with differential obtained was normal. Chemistries were normal. Urinalysis was positive for nitrites as well as 50-100 WBCs and +3 bacteria.] Emergency Department Course and Treatment: [Urine culture was sent patient started on cefepime IV. Patient was medicated with morphine and Zofran and had good pain relief.] Treatment Plan: [Admit for further workup and evaluation of her leg pain. Patient to be admitted with IV antibiotics for treatment of her UTI.] Patient has been noted on prior CTs to have spinal stenosis. Disposition: [Admit] Impression: [UTI Bilateral leg pain-etiology uncertain] This note was generated with Dragon dictation software. It may contain incorrect words, spelling, and punctuation that were not noted in review of the chart prior to signing ED Disposition - Plan for ED Patient: Chief Complaint: Lower Extremity Injury Referrals: Jones Esquivel MD [Primary Care Provider] -
--- NOTE | 2018-04-08 04:36 | PCM.HP.STD ---
History of Present Illness Date of Admission: 04/08/18 Chief Complaint: acute on chronic bilateral lower extremity pain The patient is a 68 year old F with an extensive past medical history as listed below. She was admitted to the ED on 04/08/2018 with a complaint of severe bilateral lower extremity pain. She has chronic bilateral lower extremity pain for which she usually takes Advil and states he does not know the cause of the pain. In the early hours of this morning, pain became very severe and started screaming in pain and so has been brought into the ED. She denies any fever or chills, cough or chest pain, shortness of breath, abdominal pain, any diarrhea vomiting. Denies any urinary symptoms and has a chronic indwelling catheter which was changed 3 weeks ago by home health nurse. Review of systems otherwise negative. Vitals were significant for tachycardia with heart rate of 110. Chemistry was essentially unremarkable and CBC showed hemoglobin of 10.5 was otherwise unremarkable. She has been admitted to manage for acute on chronic pain of her lower extremities. [] Past Medical History Past Medical History (Chronic Problems): Chronic Problems (Last Reviewed 03/24/18 @ 13:10 by Jennifer Bee) Open wound of left thigh (Chronic) traumatic skin tear posterior thigh Incompetent urethral closure mechanism (Chronic) Neurogenic bladder (Chronic) Stage II pressure ulcer (Chronic) Chronic suprapubic catheter (Chronic) Diabetes mellitus type 2 in nonobese (Chronic) Hypertension (Chronic) Gout (Chronic) with arthropathy Pressure ulcer of left buttock, stage 3 (Chronic) left lower buttock/upper thigh area Diabetes mellitus (Chronic) Pressure ulcer of right buttock, stage 3 (Chronic) Diabetic neuropathy, type II diabetes mellitus (Chronic) Malnutrition (Chronic) Back pain (Chronic) Arthritis (Chronic) 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 significance to followup Anemia of chronic disease (Chronic) Physical deconditioning (Chronic) Dupuytren's contracture of right hand (Chronic) Spinal stenosis (Chronic) Hyperlipidemia (Chronic) RP (rectal prolapse) (Chronic) Medical History: Medical History (Last Reviewed 03/24/18 @ 13:10 by Jennifer Bee) Open wound of left thigh (Chronic) S71.102A traumatic skin tear posterior thigh Incompetent urethral closure mechanism (Chronic) N36.8 Neurogenic bladder (Chronic) N31.9 Stage II pressure ulcer (Chronic) L89.92 Complicated urinary tract infection (Acute) N39.0 Hematuria (Acute) R31.9 Diabetes mellitus type 2 in nonobese (Chronic) E11.9 Hypertension (Chronic) I10 Gout (Chronic) M10.9 with arthropathy Pressure ulcer of left buttock, stage 3 (Chronic) L89.323 left lower buttock/upper thigh area Pressure ulcer of left buttock, stage 2 (Resolved) L89.322 Diabetes mellitus (Chronic) E11.9 Pressure ulcer of right buttock, stage 3 (Chronic) L89.313 Diabetic neuropathy, type II diabetes mellitus (Chronic) E11.40 Malnutrition (Chronic) E46 Back pain (Chronic) M54.9 Arthritis (Chronic) M19.90 chronic osteomyelitis left ischial area (Chronic) Pressure sore of left ischium, stage 4 (Chronic) L89.324 Lytic bone lesion of right femur (Chronic) M89.8X5 and right humerus ? significance to followup Anemia of chronic disease (Chronic) D63.8 Physical deconditioning (Chronic) R53.81 Dupuytren's contracture of right hand (Chronic) M72.0 Spinal stenosis (Chronic) M48.00 Hyperlipidemia (Chronic) E78.5 RP (rectal prolapse) (Chronic) K62.3 Allergies No Known Allergies Allergy (Verified 04/08/18 03:14) Home Medications: Ambulatory Orders Medication Instructions Recorded Allopurinol [Zyloprim] 200 mg PO DAILY 07/05/14 Latanoprost 0.005% [Xalatan 1 drp EACH EYE QHS 07/05/14 Opthalmic] Losartan Potassium [Cozaar] 25 mg PO DAILY 07/05/14 Multivitamins,Therapeutic 1 tab PO DAILY 07/05/14 [Multivitamin] Simvastatin [Zocor] 10 mg PO QHS 07/05/14 Timolol Maleate [Timoptic-XE 0.5%] 1 drp EACH EYE DAILY 07/05/14 Potassium Chloride [K-Dur] 20 meq PO DAILY 06/29/15 Saxagliptin HCl [Onglyza] 5 mg PO DAILY 07/01/17 Solifenacin Succinate [Vesicare] 10 mg PO DAILY 07/01/17 Ascorbic Acid [Vitamin C] 500 mg PO DAILY@0800 09/09/17 Mirabegron [Myrbetriq] 50 mg PO DAILY 11/23/17 Furosemide [Lasix] 20 mg PO DAILY 02/26/18 Ibuprofen 200 mg PO PRN PRN 02/26/18 Metformin HCl [Glucophage] 1,000 mg PO BID 02/26/18 Methenamine Hippurate [Hiprex] 1 gm PO BID #60 tab 03/01/18 Surgical History: Surgical History (Last Reviewed 03/24/18 @ 13:10 by Jennifer Bee) Chronic suprapubic catheter (Chronic) Z93.[address] (Chronic) Z93.3 Previous back surgery Z98.890 Surgical History: - - Surgery for rectal prolapse with anterior resection and rectopexy at [facility] in 2008 and back surgery 1979. Colostomy was November 2012. She had blood transfusions in October 2012 at [facility] for blood loss anemia. excision left ischial pressure sore with partial ostectomy for osteomyelitis and excision right ischial pressure sore and excision left lateral ankle pressure sore with partial ostectomy for osteomyelitis in 08/01. 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 Denies: Arm Pain, Back Pain, Foot Pain Skin: Denies: Rash, Wounds Neurological: Denies: Numbness, Tingling, Focal weakness Psychiatric: Denies: Anxiety, Depression, Homicidal Ideations, Suicidal Ideations Hematologic/ Lymphatic: Denies: Easy Bruising, Easy Bleeding VTE Information - Inpt Only VTE Present on Admission: No VTE Pharm Prophylaxis ordered?: Yes - Physical Exam General: Alert, Oriented x3, Cooperative, No apparent distress HEENT: Atraumatic, PERRLA, EOMI, Normocephalic Oral: Moist Mucosa Neck: Supple, No JVD, Negative Carotid Bruits Lungs: Clear to auscultation, Normal air movement, No rhonchi, No wheeze, No rales Cardiovascular: Regular rate, Regular Rhythm, Normal S1, Normal S2, No murmurs Abdomen: Bowel Sounds Present, Soft, Non Tender Extremities: No clubbing, No cyanosis, No edema, Capillary Refill Less than 3 Seconds, - - both LE's mildly warm to touch; no tenderness on palpation. Skin: No rashes, No breakdown Musculoskeletal: No Tenderness to Palpation of Joints or Extremities Lymphatic: No Cervical, Supraclavicular, or Inguinal Adenopathy Neurological: Cranial nerves II-XII grossly intact, - - decreased power (3/5) in both LEs, which is chronic Psych/Mental Status: Normal Affect, Appropriate, Alert and oriented to time, place, person, mood and affect Vital Signs Temp Pulse Resp BP Pulse Ox 98.9 F 110 H 18 111/66 95 04/08/18 03:11 04/08/18 03:11 04/08/18 03:17 04/08/18 03:11 04/08/18 03:11 Oxygen Delivery Method Room Air Weight: 164 lb 10.965 oz Body Mass Index (BMI) 30.1 Finger Stick Blood Glucose 109 Laboratory Tests Past 24 Hrs 04/08/18 04/08/18 04/08/18 03:33 03:33 03:58 WBC 10.0 RBC 3.95 L Hgb 10.5 L Hct 32.9 L MCV 83.3 MCH 26.6 L MCHC 31.9 L RDW 16.3 H RDW Differential 49.1 H Plt Count 275 MPV 8.9 Immature Gran % (Auto) 0.400 Neut % (Auto) 77.1 H Lymph % (Auto) 10.5 L [place] % (Auto) 10.2 H Eos % (Auto) 1.6 Baso % (Auto) 0.2 Absolute Neuts (auto) 7.7 Absolute Lymphs (auto) 1.05 Total Counted Not Reportable Sodium 138 Potassium 3.8 Chloride 101 Carbon Dioxide 26.0 Anion Gap 11 BUN 32 H Creatinine 0.79 Estim Creat Clear Calc 41.99 Est GFR (MDRD) Af Amer 93 Est GFR (MDRD) Non-Af 77 BUN/Creatinine Ratio 40.7 H Glucose 144 H Calcium 8.5 Urine Color Yellow Urine Clarity Cloudy Urine pH 5.0 Ur Specific [place] 1.020 Urine Protein 100 H Urine Glucose (UA) Normal Urine Ketones 5 H Urine Occult Blood 250 H Urine Nitrite Positive H Urine Bilirubin Negative Urine Urobilinogen Normal Ur Leukocyte Esterase 500 H Urine RBC 5-10 SEEN Urine WBC 50-100 SEEN Ur Squamous Epith Cells 0-5 SEEN Urine Bacteria 3+ Urine Mucus 0 SEEN Assessment/Plan All Active Problems (Last Reviewed 03/24/18 @ 13:10 by Jennifer Bee) Complicated urinary tract infection (Acute) Hematuria (Acute) Pressure ulcer of left buttock, stage 2 (Resolved) 68-year-old female presenting with acute on chronic pain of her lower extremities. 1. Acute on chronic pain of LEs etiology of pain is unknown. no tenderness on palpation of her LEs admit to med surg PO advil for pain- she says that's what works for her PT/OT consult pain management consult; says her pain is managed by her PCP. 2. Asymptomatic bacteriuria UA showed evidence of UTI; received IV cefepime in ED patient has chronic indwelling roach catheter, which was changed 3 weeks ago by her home health aide has no symptoms of UTI; this is likely chronic contamination will dc antibiotics and monitor 3. Attention: On losartan. 5. Diabetes mellitus: On metformin and saxagliptin. Insulin sliding scale. Accu-Cheks AC at bedtime. 6.Gout: on allopurinol 7. hyperlipidemia: on statin DVT prophylaxis: heparin Code Visit OBSV E&M: 90040 Initial observation care L2
[2018-04-08 08:06] LABS: Absolute Lymphocyte Count 1.13 X10^3/ul (0.83-4.51); Absolute Neutrophil Count 5.8 X10^3/uL (2.0-7.7); Basophil# 0.02 X10^3/uL; Basophil% 0.3 % (0-1); Eosinophil# 0.16 X10^3/uL; Hematocrit 35.3 % (37-47); Lymphocyte # 1.13 X10^3/ul (4.0); Lymphocyte % 14.4 % (19-41); Mean Corp Hgb Conc 31.2 g/gl (32-36); Mean Corpuscular Hgb 26.9 pg (27.0-32.0); Mean Corpuscular Volume 86.3 fL (81-99); Mean Platelet Vol. 9.2 fl (6.2-12.0); Monocyte# 0.73 X10^3/uL; Monocyte% 9.3 % (0-10); Neutrophil # 5.77 X10^3/uL (2.7-7.7); Neutrophil % 73.6 % (47-70); POSITIVE COUNT NO; POSITIVE DIFFERENTIAL NO; POSITIVE MORPHOLOGY NO; Platelet Count 231 K/mm3 (150-450); RBC Distribution Width CV 16.4 % (11.6-14.6); RBC Distribution Width SD 51.4 fl (35.1-43.9); Red Blood Count 4.09 M/mm3 (4.2-5.4); White Blood Count 7.8 K/mm3 (4.4-11.0)
--- NOTE | 2018-04-08 08:49 | PCM.PROGNOTE ---
Subjective: Patient seen and examined. Lower extremity pain improved. Patient states this is been ongoing, worsening recently. Describes a cramping sensation. Denies calf pain. Denies urinary symptoms. Denies fever, chills. - Physical Exam General: Alert, Oriented x3, Cooperative HEENT: Atraumatic, PERRLA, EOMI, Normocephalic Neck: Supple, No JVD, Negative Carotid Bruits Lungs: Clear to auscultation, Normal air movement Cardiovascular: Regular rate, Regular Rhythm, Normal S1, Normal S2, No murmurs Abdomen: Bowel Sounds Present, Soft, Non Tender, Non-Distended Extremities: No clubbing, No cyanosis, No edema, Capillary Refill Less than 3 Seconds Skin: No rashes, No breakdown Musculoskeletal: No Tenderness to Palpation of Joints or Extremities Neurological: Cranial nerves II-XII grossly intact, Neuro grossly intact Psych/Mental Status: Normal Affect, Appropriate Vital Signs Temp Pulse Resp BP Pulse Ox 98.2 F 102 H 14 105/64 94 04/08/18 05:42 04/08/18 05:42 04/08/18 05:42 04/08/18 05:42 04/08/18 05:42 Oxygen Delivery Method Room Air Weight: 164 lb 10.965 oz Body Mass Index (BMI) 30.1 Finger Stick Blood Glucose 109 Laboratory Tests Past 24 Hrs 04/08/18 04/08/18 04/08/18 03:33 03:33 03:58 WBC 10.0 RBC 3.95 L Hgb 10.5 L Hct 32.9 L MCV 83.3 MCH 26.6 L MCHC 31.9 L RDW 16.3 H RDW Differential 49.1 H Plt Count 275 MPV 8.9 Immature Gran % (Auto) 0.400 Neut % (Auto) 77.1 H Lymph % (Auto) 10.5 L [place] % (Auto) 10.2 H Eos % (Auto) 1.6 Baso % (Auto) 0.2 Absolute Neuts (auto) 7.7 Absolute Lymphs (auto) 1.05 Total Counted Not Reportable Sodium 138 Potassium 3.8 Chloride 101 Carbon Dioxide 26.0 Anion Gap 11 BUN 32 H Creatinine 0.79 Estim Creat Clear Calc 41.99 Est GFR (MDRD) Af Amer 93 Est GFR (MDRD) Non-Af 77 BUN/Creatinine Ratio 40.7 H Glucose 144 H Hemoglobin A1c Calcium 8.5 Magnesium Iron TIBC Iron Saturation Ferritin Total Bilirubin Direct Bilirubin AST ALT Alkaline Phosphatase Total Protein Albumin Urine Color Yellow Urine Clarity Cloudy Urine pH 5.0 Ur Specific [place] 1.020 Urine Protein 100 H Urine Glucose (UA) Normal Urine Ketones 5 H Urine Occult Blood 250 H Urine Nitrite Positive H Urine Bilirubin Negative Urine Urobilinogen Normal Ur Leukocyte Esterase 500 H Urine RBC 5-10 SEEN Urine WBC 50-100 SEEN Ur Squamous Epith Cells 0-5 SEEN Urine Bacteria 3+ Urine Mucus 0 SEEN 04/08/18 04/08/18 04/08/18 07:50 07:50 07:50 WBC 7.8 RBC 4.09 L Hgb 11.0 L Hct 35.3 L MCV 86.3 MCH 26.9 L MCHC 31.2 L RDW 16.4 H RDW Differential 51.4 H Plt Count 231 MPV 9.2 Immature Gran % (Auto) 0.400 Neut % (Auto) 73.6 H Lymph % (Auto) 14.4 L [place] % (Auto) 9.3 Eos % (Auto) 2.0 Baso % (Auto) 0.3 Absolute Neuts (auto) 5.8 Absolute Lymphs (auto) 1.13 Total Counted Not Reportable Sodium Pending Potassium Pending Chloride Pending Carbon Dioxide Pending Anion Gap Pending BUN Pending Creatinine Pending Estim Creat Clear Calc Est GFR (MDRD) Af Amer Pending Est GFR (MDRD) Non-Af Pending BUN/Creatinine Ratio Pending Glucose Pending Hemoglobin A1c Pending Calcium Pending Magnesium Iron TIBC Iron Saturation Ferritin Total Bilirubin Direct Bilirubin AST ALT Alkaline Phosphatase Total Protein Albumin Urine Color Urine Clarity Urine pH Ur Specific [place] Urine Protein Urine Glucose (UA) Urine Ketones Urine Occult Blood Urine Nitrite Urine Bilirubin Urine Urobilinogen Ur Leukocyte Esterase Urine RBC Urine WBC Ur Squamous Epith Cells Urine Bacteria Urine Mucus 04/08/18 07:50 WBC RBC Hgb Hct MCV MCH MCHC RDW RDW Differential Plt Count MPV Immature Gran % (Auto) Neut % (Auto) Lymph % (Auto) [place] % (Auto) Eos % (Auto) Baso % (Auto) Absolute Neuts (auto) Absolute Lymphs (auto) Total Counted Sodium Potassium Chloride Carbon Dioxide Anion Gap BUN Creatinine Estim Creat Clear Calc Est GFR (MDRD) Af Amer Est GFR (MDRD) Non-Af BUN/Creatinine Ratio Glucose Hemoglobin A1c Calcium Magnesium Pending Iron Pending TIBC Pending Iron Saturation Pending Ferritin Pending Total Bilirubin Pending Direct Bilirubin Pending AST Pending ALT Pending Alkaline Phosphatase Pending Total Protein Pending Albumin Pending Urine Color Urine Clarity Urine pH Ur Specific [place] Urine Protein Urine Glucose (UA) Urine Ketones Urine Occult Blood Urine Nitrite Urine Bilirubin Urine Urobilinogen Ur Leukocyte Esterase Urine RBC Urine WBC Ur Squamous Epith Cells Urine Bacteria Urine Mucus Medical Necessity - Tobacco Use Smoking Status: Never smoker Assessment/Plan All Active Problems (Last Reviewed 03/24/18 @ 13:10 by Jennifer Bee) Complicated urinary tract infection (Acute) Hematuria (Acute) Pressure ulcer of left buttock, stage 2 (Resolved) 1. Acute UTI, chronic indwelling Rea catheter-culture pending. Continue IV cefepime. 2. Acute on chronic bilateral lower extremity pain-patient reports intense cramping. Worsened recently. Potassium within normal limits. Mag pending. Pain management consulted. Patient denies calf pain. No tenderness to palpation of bilateral lower extremities. No swelling or redness. PT/OT. 3. Hypertension-stable, continue home losartan, Lasix regimen. 4. Type 2 diabetes mellitus-continue home oral regimen. Accu-Cheks before meals at bedtime with sliding scale insulin. Hemoglobin A1c pending. 5. Hyperlipidemia-continue statin. 6. Gout-no acute flare. Continue allopurinol. 7. Mild chronic normocytic anemia-stable. DVT prophylaxis- heparin sc. This patient was seen by AVELINO Fuchs under the supervision of Dr. Bustamante.
[2018-04-08] MEDS: Mirabegron 50 MG TAB.ER.24H PO (08:50)
[2018-04-08] MEDS: Allopurinol 100 MG Tablet 200 MG PO (08:50)
[2018-04-08] MEDS: metFORMIN HCl 1,000 MG Tablet 1000 MG PO ×2 (08:51→17:02)
[2018-04-08] MEDS: Tolterodine Tartrate 4 MG CAP.SA PO (08:51)
[2018-04-08] MEDS: Multivitamins,Therapeutic Tablet 1 TABLET PO (08:51)
[2018-04-08] MEDS: Losartan Potassium 25 MG Tablet PO (08:51)
[2018-04-08] MEDS: Ascorbic Acid 500 MG Tablet PO (08:52)
[2018-04-08] MEDS: Furosemide 20 MG Tablet PO (08:52)
[2018-04-08] MEDS: Enoxaparin 40 MG/0.4 ML Syringe SC (08:53)
[2018-04-08] MEDS: Timolol 0.5% 5ML OPTH.BTL 5 DRP EACH EYE ×2 (08:54→23:03)
[2018-04-08] MEDS: LINAGLIPTIN 5 MG TABLET PO (08:57)
[2018-04-08] MEDS: Glucerna Shake 120 ML LIQUID PO ×4 (08:57→23:01)
[2018-04-08 09:00] LABS: Anion Gap 10 (5-15); BUN 28 mg/dL (7-18); BUN/Creat Ratio 41.5 RATIO (10-20); Calcium,Total 8.1 mg/dL (8.5-10.1); Chloride 105 mmol/L (98-107); Creatinine, Serum 0.67 mg/dL (0.55-1.02); EST Glomerular Filtration Rate 92 mL/min (>60); Est Glom Filt Rate - Afr Amer 111 mL/min (>60); Estimated Creatinine Clearance 41.99 ml/min; Glucose 113 mg/dL (74-106); Potassium 3.8 mmol/L (3.5-5.1); Sodium Level 134 mmol/L (136-145)
[2018-04-08 09:15] LABS: AST(SGOT) 16 U/L (15-37); Alanine Aminotransfer ALT/SGPT 17 U/L (13-56); Albumin, Serum 2.6 g/dL (3.2-5.0); Alkaline Phosphatase 88 U/L (45-117); Bilirubin, Direct 0.11 mg/dL (0.00-0.30); Ferritin 289 ng/mL (8-252); Globulin 5.1 g/dL (2.2-4.2); Iron 16 ug/dL (50-170); Iron Binding Capacity,Total 203 ug/dL (250-450); Magnesium 1.8 mg/dL (1.6-2.6); PERCENT IRON SATURATION 7.9 % (15.0-55.0); Protein, Total 7.7 g/dL (6.4-8.2)
[2018-04-08 09:16] LABS: Hemoglobin A1c 6.2 % (4.2-6.3)
[2018-04-08 09:21] LABS: Bedside Glucose 110 mg/dL (70-110)
--- NOTE | 2018-04-08 09:44 | MRI_ITS ---
STUDY: MRI LUMBAR SPINE WITHOUT CONTRAST REASON FOR EXAM: Female, 68 years old. Bilateral lower extremity pain and weakness TECHNIQUE: Standardized fat and water weighted pulse sequences were obtained in the sagittal and axial planes. COMPARISON: None FINDINGS: T12-L1: Normal endplates. Normal disc height, hydration and morphology. Normal bilateral facet joints. Normal central canal and bilateral lateral recesses. Normal bilateral intervertebral neural foramina. Normal lumbar lordosis. There is no substantial scoliosis. Normal conus medullaris that terminates at the L1 level. L1-2: Bulging annulus and bilateral facet and ligamentum flavum hypertrophy with moderate central canal stenosis and mild right foraminal stenosis. L2-3: Bulging annulus and bilateral facet and ligamentum flavum hypertrophy with severe central canal stenosis and mass effect on all transiting nerve roots. Residual AP canal diameter is 3 mm. Moderate right and severe left foraminal stenoses. Mass effect on the exiting left L2 nerve root. L3-4: Disc space narrowing and desiccation with discogenic endplate changes and anterior osteophytes. Bulging annulus and bilateral facet and ligamentum flavum hypertrophy with severe central canal stenosis and mass effect on all transiting nerve roots. The residual AP canal diameter is 5 mm. Severe left and moderate right foraminal stenoses. There is mass effect on the exiting left L3 nerve root. L4-5: Bulging annulus and bilateral facet and ligamentum flavum hypertrophy with severe central canal stenosis and mass effect on all transiting nerve roots. The residual AP canal diameter is 2 mm. Severe left and moderate right foraminal stenoses. There is mass effect on the exiting left L4 for nerve root. L5-S1: Bulging annulus and bilateral facet hypertrophy with moderate left foraminal stenosis. Normal visualized sacral ala. Normal visualized paraspinous soft tissue structures. MRI/Spine Lumbar (Routine) IMPRESSION: Severe multilevel degenerative disease. Severe central canal stenoses with mass effect on all transiting nerve roots at the L2-3, L3-4, and L4-5 levels. Severe foraminal stenoses with mass effect on associated exiting nerve roots on the left at L2-3, on the left at L3-4, and on the left at L4-5. Electronically Signed: Juan Medina MD at 13:47 EST Tel , Service support ,
--- NOTE | 2018-04-08 09:44 | MRI_ITS ---
STUDY: MRI CERVICAL SPINE WITHOUT CONTRAST REASON FOR EXAM: Female, 68 years old. Radicular pain and right upper extremity weakness TECHNIQUE: Standardized fat and water weighted pulse sequences were obtained in the sagittal and axial planes. COMPARISON: None FINDINGS: Severe central canal stenosis and foramen magnum stenosis is noted at the craniocervical junction. This is only imaged in the sagittal plane and is not imaged in the axial plane on the current study. This appears to be related to ossification of the tectorial membrane. The upper cervical cord is severely compressed, with residual anteroposterior dimension of just over 2 mm. 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 There is straightening of the normal cervical lordosis. Diffuse idiopathic skeletal hyperostosis. Ossification of the posterior longitudinal ligament is noted. This is associated with severe central canal stenosis and severe cord compression at the C2-3 level. This is also associated with moderate to severe central canal stenosis and moderate cord compression at C3-4, C4-5, and C5-6. Diffuse degenerative disc and facet disease. Moderate left foraminal stenosis at C4-5. Severe bilateral foraminal stenoses at C6-7. A left thyroid nodule is present measuring up to 2.5 x 1.9 cm. Consider ultrasound follow-up. 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 Ossification of the posterior longitudinal ligament and diffuse idiopathic skeletal hyperostosis. Severe central canal stenosis and severe cord compression at C2-3. Moderate to severe central canal stenosis and moderate cord compression at C3-4, C4-5, and C5-6. Diffuse degenerative disease. Severe bilateral foraminal stenoses at C6-7. Left thyroid nodule for which ultrasound follow-up may be indicated. N.B. : The above information has been verbally conveyed by Juan Medina MD to Dr. Citnhya Bustamante MD, on 04/08/2018 14:06:46 (ET). Electronically Signed: Juan Medina MD at 13:42 EST Tel , Service support ,
[2018-04-08] MEDS: HYDROcodone Bitartrate/Apap 5/325 Tablet PO (10:10)
--- NOTE | 2018-04-08 10:16 | NURSING ---
wound photo: left gluteal fold
--- NOTE | 2018-04-08 10:17 | NURSING ---
wound photo: right gluteal fold
[2018-04-08 10:44] LABS: Lactic Acid 1.5 mmol/L (0.4-2.0)
--- NOTE | 2018-04-08 11:30 | CASEMGMT ---
ORQUIDEA ALVAREZ Face to Face with patient for initial transition planning/care coordination assessment. RN CM introduced self and role at [facility]. Patient lying in bed, alert and oriented, brother at bedside. Patient willing to participate in assessment and is able to answer all questions appropriately. Care providers, pharmacy, and demographics verified. Patient wishes to discharge home with resumption of HHC and aide services. Patient states she has no further needs or concerns at this time. CM to follow for discharge planning needs that may arise. PCP: [facility]ists: [facility]org[facility] Trivedi Pharmacy: [facility] Insurance: VLADIMIR Prescription Benefit: VLADIMIR Living Will/HPOA: Yes but cannot find would like to complete new living will and HPOA. SW notified LNOK: Brother Living Arrangements: Patient lives with brother and sister in law in home with ramp to enter home. Transportation: [facility] D[facility]/HHC: Patient has hospital bed, rollator, and wheel chair at home. [employer] AIDE through [facility]. [facility] HHC for SN Disposition Plan: Patient wishes to discharge home with resumption of HHC, family support, and follow-up plans in place. Uzma MILLER, RN, CM
[2018-04-08 11:55] LABS: Bedside Glucose 159 mg/dL (70-110)
[2018-04-08] MEDS: 0.9% NaCl Peripheral Flush Adult/Peds IV (13:38)
[2018-04-08] MEDS: predniSONE 20 MG Tablet 60 MG PO (13:38)
[2018-04-08] MEDS: Gabapentin 100 MG Capsule PO ×2 (13:38→17:02)
--- NOTE | 2018-04-08 14:28 | CASEMGMT ---
Social Work Note SW received call from pt's CM at [facility] Melvina Martel. SW updated Melvina on pt's admission. Uzma Dominguez MAGISTRATE JUDGE, FLAT KNITTER
--- NOTE | 2018-04-08 16:00 | CASEMGMT ---
Social Work Note SW received referral for advanced directives. SW met with pt. Pt agreeable to completing advanced directives. SW completed advanced directives with pt. SW provided pt with original copy of advanced directives and placed copy on pt's chart. Uzma Dominguez NET FINISHER, AIRCRAFT ENGINE CYLINDER MECHANIC
[2018-04-08 17:15] LABS: Bedside Glucose 218 mg/dL (70-110)
--- NOTE | 2018-04-08 17:27 | DS.PCM_ITS ---
Discharge Date and Diagnosis Date of Admission: 04/08/18 Date of Discharge: 04/08/18 - Primary Discharge Diagnosis 1. Acute UTI with chronic indwelling Rea catheter secondary to neurogenic bladder 2. 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 Severe central canal stenosis/severe foraminal stenosis lumbar spine 4. Chronic decubitus ulcers of the buttocks bilaterally, present on admission 5. Acute on chronic anemia with positive occult blood stool 6. Transfer to tertiary care facility for neurosurgery evaluation - Secondary Discharge Diagnosis Chronic Problems (Last Reviewed 03/24/18 @ 13:10 by Jennifer Bee) Open wound of left thigh (Chronic) traumatic skin tear posterior thigh Incompetent urethral closure mechanism (Chronic) Neurogenic bladder (Chronic) Stage II pressure ulcer (Chronic) Chronic suprapubic catheter (Chronic) Diabetes mellitus type 2 in nonobese (Chronic) Hypertension (Chronic) Gout (Chronic) with arthropathy Pressure ulcer of left buttock, stage 3 (Chronic) left lower buttock/upper thigh area Diabetes mellitus (Chronic) Pressure ulcer of right buttock, stage 3 (Chronic) Diabetic neuropathy, type II diabetes mellitus (Chronic) Malnutrition (Chronic) Back pain (Chronic) Arthritis (Chronic) 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 significance to followup Anemia of chronic disease (Chronic) Physical deconditioning (Chronic) Dupuytren's contracture of right hand (Chronic) Spinal stenosis (Chronic) Hyperlipidemia (Chronic) RP (rectal prolapse) (Chronic) Hospital Course and Treatment Imaging Results: Diagnostic Data Cervical Spine MRI 04/08/18 09:44 IMPRESSION: Ossification of the tectorial membrane with associated severe craniocervical stenosis and severe compression of the upper cord. 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 Ossification of the posterior longitudinal ligament and diffuse idiopathic skeletal hyperostosis. Severe central canal stenosis and severe cord compression at C2-3. Moderate to severe central canal stenosis and moderate cord compression at C3-4, C4-5, and C5-6. Diffuse degenerative disease. Severe bilateral foraminal stenoses at C6-7. Left thyroid nodule for which ultrasound follow-up may be indicated. N.B. : The above information has been verbally conveyed by Juan Medina MD to Dr. Cinthya Bustamante MD, on 04/08/2018 14:06:46 (ET). Electronically Signed: Juan Medina MD at 13:42 EST Tel , Service support , Lumbar Spine MRI 04/08/18 09:44 IMPRESSION: Severe multilevel degenerative disease. Severe central canal stenoses with mass effect on all transiting nerve roots at the L2-3, L3-4, and L4-5 levels. Severe foraminal stenoses with mass effect on associated exiting nerve roots on the left at L2-3, on the left at L3-4, and on the left at L4-5. 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 1. Acute UTI with chronic indwelling Rea catheter secondary to neurogenic bladder-UA positive. Culture pending at discharge. Patient received IV cefepime during admission. 2. Severe craniocervical stenosis/central canal stenosis and severe compression of the upper cord-see MRI report above. Transfer to tertiary facility for neurosurgery evaluation. 3. Severe central canal stenosis/severe foraminal stenosis lumbar spine-see MRI report above. Transfer to tertiary facility for neurosurgery evaluation. 4. Chronic decubitus ulcers of the buttocks bilaterally, present on admission 5. Acute on chronic anemia with positive occult blood stool-hemoglobin stable. Possible GI blood loss due to chronic NSAID use. 6. Type 2 diabetes mellitus-hemoglobin A1c 6.2%. 7. Hyperlipidemia-continue statin. 8. Gout-no acute flare. Continue allopurinol. General: Alert, Oriented x3, Cooperative HEENT: Atraumatic, PERRLA, EOMI, Normocephalic Neck: Supple, No JVD, Negative Carotid Bruits Lungs: Clear to auscultation, Normal air movement Cardiovascular: Regular rate, Regular Rhythm, Normal S1, Normal S2, No murmurs Abdomen: Bowel Sounds Present, Soft, Non Tender, Non-Distended Extremities: No clubbing, No cyanosis, No edema, Capillary Refill Less than 3 Seconds Skin: No rashes, No breakdown Musculoskeletal: No Tenderness to Palpation of Joints or Extremities Neurological: Cranial nerves II-XII grossly intact, Neuro grossly intact Psych/Mental Status: Normal Affect, Appropriate Patient seen and examined prior to discharge. Physical assessment as noted above. Transfer to tertiary facility for neurosurgery evaluation as noted above. This patient was seen by AVELINO Fuchs under the supervision of Dr. Bustamante. - Physical Exam Vital Signs Temp Pulse Resp BP Pulse Ox 99.7 F H 108 H 18 92/49 L 94 04/08/18 15:40 04/08/18 15:40 04/08/18 15:40 04/08/18 15:40 04/08/18 15:40 Oxygen Delivery Method Room Air Weight: 164 lb 10.965 oz Body Mass Index (BMI) 30.1 Finger Stick Blood Glucose 109 Intake and Output for Last 24 Hours 04/06/18 04/07/18 04/08/18 23:59 23:59 23:59 Intake Total 910 / 910 Output Total 850 / 850 Balance 60 / 60 Microbiology Past 72 Hours 04/08/18 10:00 Stool Occult Blood (NEVAEH) - Final Stool Occult Blood Positive Laboratory Tests Past 24 Hrs 04/08/18 04/08/18 04/08/18 03:33 03:33 03:33 WBC 10.0 RBC 3.95 L Hgb 10.5 L Hct 32.9 L MCV 83.3 MCH 26.6 L MCHC 31.9 L RDW 16.3 H RDW Differential 49.1 H Plt Count 275 MPV 8.9 Immature Gran % (Auto) 0.400 Neut % (Auto) 77.1 H Lymph % (Auto) 10.5 L [place] % (Auto) 10.2 H Eos % (Auto) 1.6 Baso % (Auto) 0.2 Absolute Neuts (auto) 7.7 Absolute Lymphs (auto) 1.05 Total Counted Not Reportable Sodium 138 Potassium 3.8 Chloride 101 Carbon Dioxide 26.0 Anion Gap 11 BUN 32 H Creatinine 0.79 Estim Creat Clear Calc 41.99 Est GFR (MDRD) Af Amer 93 Est GFR (MDRD) Non-Af 77 BUN/Creatinine Ratio 40.7 H Glucose 144 H Hemoglobin A1c 6.2 Lactic Acid Calcium 8.5 Magnesium Iron TIBC Iron Saturation Ferritin Total Bilirubin Direct Bilirubin AST ALT Alkaline Phosphatase Total Protein Albumin Globulin Urine Color Urine Clarity Urine pH Ur Specific [place] Urine Protein Urine Glucose (UA) Urine Ketones Urine Occult Blood Urine Nitrite Urine Bilirubin Urine Urobilinogen Ur Leukocyte Esterase Urine RBC Urine WBC Ur Squamous Epith Cells Urine Bacteria Urine Mucus 04/08/18 04/08/18 04/08/18 03:58 07:50 07:50 WBC 7.8 RBC 4.09 L Hgb 11.0 L Hct 35.3 L MCV 86.3 MCH 26.9 L MCHC 31.2 L RDW 16.4 H RDW Differential 51.4 H Plt Count 231 MPV 9.2 Immature Gran % (Auto) 0.400 Neut % (Auto) 73.6 H Lymph % (Auto) 14.4 L [place] % (Auto) 9.3 Eos % (Auto) 2.0 Baso % (Auto) 0.3 Absolute Neuts (auto) 5.8 Absolute Lymphs (auto) 1.13 Total Counted Not Reportable Sodium 134 L Potassium 3.8 Chloride 105 Carbon Dioxide 19.0 L Anion Gap 10 BUN 28 H Creatinine 0.67 Estim Creat Clear Calc 41.99 Est GFR (MDRD) Af Amer 111 Est GFR (MDRD) Non-Af 92 BUN/Creatinine Ratio 41.5 H Glucose 113 H Hemoglobin A1c Lactic Acid Calcium 8.1 L Magnesium Iron TIBC Iron Saturation Ferritin Total Bilirubin Direct Bilirubin AST ALT Alkaline Phosphatase Total Protein Albumin Globulin Urine Color Yellow Urine Clarity Cloudy Urine pH 5.0 Ur Specific [place] 1.020 Urine Protein 100 H Urine Glucose (UA) Normal Urine Ketones 5 H Urine Occult Blood 250 H Urine Nitrite Positive H Urine Bilirubin Negative Urine Urobilinogen Normal Ur Leukocyte Esterase 500 H Urine RBC 5-10 SEEN Urine WBC 50-100 SEEN Ur Squamous Epith Cells 0-5 SEEN Urine Bacteria 3+ Urine Mucus 0 SEEN 04/08/18 04/08/18 07:50 10:10 WBC RBC Hgb Hct MCV MCH MCHC RDW RDW Differential Plt Count MPV Immature Gran % (Auto) Neut % (Auto) Lymph % (Auto) [place] % (Auto) Eos % (Auto) Baso % (Auto) Absolute Neuts (auto) Absolute Lymphs (auto) Total Counted Sodium Potassium Chloride Carbon Dioxide Anion Gap BUN Creatinine Estim Creat Clear Calc Est GFR (MDRD) Af Amer Est GFR (MDRD) Non-Af BUN/Creatinine Ratio Glucose Hemoglobin A1c Lactic Acid 1.5 Calcium Magnesium 1.8 Iron 16 L TIBC 203 L Iron Saturation 7.9 L Ferritin 289 H Total Bilirubin 0.30 Direct Bilirubin 0.11 AST 16 ALT 17 Alkaline Phosphatase 88 Total Protein 7.7 Albumin 2.6 L Globulin 5.1 H Urine Color Urine Clarity Urine pH Ur Specific [place] Urine Protein Urine Glucose (UA) Urine Ketones Urine Occult Blood Urine Nitrite Urine Bilirubin Urine Urobilinogen Ur Leukocyte Esterase Urine RBC Urine WBC Ur Squamous Epith Cells Urine Bacteria Urine Mucus POC Glucose 04/08/18 04/08/18 04/08/18 17:03 11:46 08:41 POC Glucose 218 H 159 H 110 Home Medications: Medications to take at Discharge Allopurinol [Zyloprim] 200 mg PO DAILY 07/05/14 Latanoprost 0.005% [Xalatan Opthalmic] 1 drp EACH EYE QHS 07/05/14 Losartan Potassium [Cozaar] 25 mg PO DAILY 07/05/14 Multivitamins,Therapeutic [Multivitamin] 1 tab PO DAILY 07/05/14 Simvastatin [Zocor] 10 mg PO QHS 07/05/14 Timolol Maleate [Timoptic-XE 0.5%] 1 drp EACH EYE DAILY 07/05/14 Potassium Chloride [K-Dur] 20 meq PO DAILY 06/29/15 Saxagliptin HCl [Onglyza] 5 mg PO DAILY 07/01/17 Solifenacin Succinate [Vesicare] 10 mg PO DINNER 07/01/17 Ascorbic Acid [Vitamin C] 500 mg PO DAILY@0800 09/09/17 Mirabegron [Myrbetriq] 50 mg PO DAILY 11/23/17 Furosemide [Lasix] 20 mg PO DAILY 02/26/18 Ibuprofen 200 mg PO PRN PRN 02/26/18 Metformin HCl [Glucophage] 1,000 mg PO BID 02/26/18 Methenamine Hippurate [Hiprex] 1 gm PO BID #60 tab 03/01/18 Primary Care Physician: Jones Esquivel MD [Primary Care Provider] - Disposition: Acute care Hospital Minutes spent on discharge:: 35 Patient Condition:: Stable Medical Necessity - Tobacco Use Smoking Status: Never smoker Meaningful Use Info Meaningful Use Diagnoses (Choose all that apply): None applicable
[2018-04-08] MEDS: Atorvastatin Calcium 10 MG Tablet 5 MG PO (23:02)
[2018-04-08] MEDS: Latanoprost 0.005% 1 Bottle 1 DRP EACH EYE (23:04)
[2018-04-08 23:25] LABS: Bedside Glucose 378 mg/dL (70-110)
[2018-04-08] MEDS: Insulin Lispro 100 UNIT/ML INSULN.PEN 8 UNIT SC (23:42)
[2018-04-09 04:01] VITALS: BP 113/63; PULSE 107; RESP 14; TEMP 36.9; O2SAT 96
[2018-04-09] MEDS: Insulin Lispro 100 UNIT/ML INSULN.PEN SC ×4 (06:40→22:26)
[2018-04-09 07:05] LABS: Bedside Glucose 200 mg/dL (70-110)
--- NOTE | 2018-04-09 07:56 | NURSING ---
Called MRI to explain that [facility] needs to be able to see this pt's MRI results. There was some discussion of possibly conveying the information to [facility] here in [place] and then [facility] would be able to see their records. Further advised MRI that Dr. Bustamante was on this case yesterday and is also here today and would be a person to contact for information.
[2018-04-09] MEDS: Ascorbic Acid 500 MG Tablet PO (09:22)
[2018-04-09] MEDS: Mirabegron 50 MG TAB.ER.24H PO (09:22)
[2018-04-09] MEDS: Multivitamins,Therapeutic Tablet 1 TABLET PO (09:22)
[2018-04-09] MEDS: Tolterodine Tartrate 4 MG CAP.SA PO (09:22)
[2018-04-09] MEDS: Losartan Potassium 25 MG Tablet PO (09:22)
[2018-04-09] MEDS: Timolol 0.5% 5ML OPTH.BTL 5 DRP EACH EYE (09:23)
[2018-04-09] MEDS: Gabapentin 100 MG Capsule PO ×3 (09:23→16:41)
[2018-04-09] MEDS: metFORMIN HCl 1,000 MG Tablet 1000 MG PO ×2 (09:23→16:42)
[2018-04-09] MEDS: Allopurinol 100 MG Tablet 200 MG PO (09:23)
[2018-04-09 09:25] VITALS: BP 126/67; PULSE 110; RESP 18; TEMP 37; O2SAT 97
[2018-04-09] MEDS: LINAGLIPTIN 5 MG TABLET PO (09:27)
[2018-04-09] MEDS: Glucerna Shake 120 ML LIQUID PO ×4 (09:27→22:16)
--- NOTE | 2018-04-09 11:57 | NURSING ---
SPOKE WITH VICK AT [facility], SHE IS AWARE THE MRI RESULTS HAVE BEEN UPLOADED TO SYSTEM FOR THE NEUROSURGEON TO REVIEW AND SHE WILL CONTACT THEM. SHE ALSO SAID SHE HAS VICK TAFOYA, RUPAL CELL NUMBER INCASE THEY WISH TO SPEAK WITH HER, OTHERWISE SHE WILL CALL SOON SHE HEARS ANYTHING.
[2018-04-09 12:31] LABS: Bedside Glucose 239 mg/dL (70-110)
--- NOTE | 2018-04-09 14:43 | PN_ITS ---
Subjective: Patient seen and examined. Notes improvement in bilateral lower extremity pain. Able to lift right leg off of bed. States upper extremity and neck pain is slightly worse. Awaiting neurosurgery acceptance at [facility]. - Physical Exam General: Alert, Oriented x3, Cooperative HEENT: Atraumatic, PERRLA, EOMI, Normocephalic Neck: Supple, No JVD, Negative Carotid Bruits Lungs: Clear to auscultation, Normal air movement Cardiovascular: Regular rate, Regular Rhythm, Normal S1, Normal S2, No murmurs Abdomen: Bowel Sounds Present, Soft, Non Tender, Non-Distended Extremities: No clubbing, No cyanosis, No edema, Capillary Refill Less than 3 Seconds Skin: No rashes, No breakdown Musculoskeletal: No Tenderness to Palpation of Joints or Extremities Neurological: Cranial nerves II-XII grossly intact, Neuro grossly intact Psych/Mental Status: Normal Affect, Appropriate Vital Signs Temp Pulse Resp BP Pulse Ox 98.6 F 110 H 18 126/67 H 97 04/09/18 09:25 04/09/18 09:25 04/09/18 09:25 04/09/18 09:25 04/09/18 09:25 Oxygen Delivery Method Room Air Weight: 164 lb 10.965 oz Body Mass Index (BMI) 30.1 Finger Stick Blood Glucose 109 Intake and Output for Last 24 Hours 04/07/18 04/08/18 04/09/18 23:59 23:59 23:59 Intake Total 1739 / 1739 2365 / 2365 Output Total 1400 / 1400 850 / 850 Balance 339 / 339 1515 / 1515 Microbiology Past 72 Hours 04/08/18 03:58 Urine Culture - Preliminary Urine, Catheterized Presumptive E. coli 04/08/18 10:00 Stool Occult Blood (NEVAEH) - Final Stool Occult Blood Positive POC Glucose 04/09/18 04/09/18 04/08/18 12:02 06:38 23:13 POC Glucose 239 H 200 H 378 H 04/08/18 17:03 POC Glucose 218 H Medical Necessity - Tobacco Use Smoking Status: Never smoker Assessment/Plan All Active Problems (Last Reviewed 03/24/18 @ 13:10 by Jennifer Bee) Complicated urinary tract infection (Acute) Hematuria (Acute) Pressure ulcer of left buttock, stage 2 (Resolved) The patient is a 68 year old F admitted 04/08/18 due to acute on chronic bilateral lower extremity pain with new onset radicular pain in the upper extremities. 1. Acute E. coli UTI with chronic indwelling Rea catheter secondary to neurogenic bladder-UA positive. Urine culture shows presumptive E. coli. Continue IV cefepime pending sensitivities. 2. Severe craniocervical stenosis/central canal stenosis and severe compression of the upper cord-per C-spine MRI. Transfer pending to tertiary facility for neurosurgery evaluation. 3. Severe central canal stenosis/severe foraminal stenosis lumbar spine-per MRI of lumbar spine. Transfer pending to tertiary facility for neurosurgery evaluation. 4. Chronic decubitus ulcers of the buttocks bilaterally, present on admission- frequent position changes. Wound RN consult. 5. Acute on chronic anemia with positive occult blood stool-hemoglobin stable. Possible GI blood loss due to chronic NSAID use. Will require further outpatient evaluation when patient is stable from neurosurgery standpoint. 6. Type 2 diabetes mellitus-hemoglobin A1c 6.2%. Accu-Cheks AC at bedtime with sliding scale insulin. 7. Hyperlipidemia-continue statin. 8. Gout-no acute flare. Continue allopurinol. Discharge planning: Pending neurosurgery acceptance [facility]. This patient was seen by AVELINO Fuchs under the supervision of Dr. Bustamante.
[2018-04-09 15:05] VITALS: BP 108/58; PULSE 114; RESP 18; TEMP 37; O2SAT 94
--- NOTE | 2018-04-09 16:37 | NURSING ---
SPOKE WITH VICK, THE RN HANDLING THE TRANSFER LINE ON THIS PT FOR [facility]. SHE SAID SHE SPOKE WITH NEUROSURGEON APPROX 1/2 HOUR AGO AND THE SURGEON WAS STILL UNDECIDED IF PT SHOULD GO THERE OR TO [facility]. VICK WAS GOING TO CALL SURGEON AGAIN AND CALL THIS NURSE BACK.
[2018-04-09 16:56] LABS: Bedside Glucose 283 mg/dL (70-110)
[2018-04-09 22:02] VITALS: BP 115/75; PULSE 108; RESP 16; TEMP 36.7; O2SAT 97
[2018-04-09] MEDS: Atorvastatin Calcium 10 MG Tablet 5 MG PO (22:17)
[2018-04-09] MEDS: Latanoprost 0.005% 1 Bottle 1 DRP EACH EYE (22:20)
[2018-04-09 22:41] LABS: Bedside Glucose 229 mg/dL (70-110)
[2018-04-10 02:11] VITALS: BP 132/82; PULSE 100; RESP 14; TEMP 36.6; O2SAT 95
[2018-04-10] MEDS: HYDROcodone Bitartrate/Apap 5/325 Tablet PO (06:26)
[2018-04-10] MEDS: Insulin Lispro 100 UNIT/ML INSULN.PEN SC ×4 (06:36→21:44)
[2018-04-10 06:51] LABS: Bedside Glucose 168 mg/dL (70-110)
[2018-04-10] MEDS: Allopurinol 100 MG Tablet 200 MG PO (08:57)
[2018-04-10] MEDS: Tolterodine Tartrate 4 MG CAP.SA PO (08:58)
[2018-04-10] MEDS: Multivitamins,Therapeutic Tablet 1 TABLET PO (08:58)
[2018-04-10] MEDS: metFORMIN HCl 1,000 MG Tablet 1000 MG PO ×2 (08:58→18:55)
[2018-04-10] MEDS: Enoxaparin 40 MG/0.4 ML Syringe SC (08:59)
[2018-04-10] MEDS: Mirabegron 50 MG TAB.ER.24H PO (08:59)
[2018-04-10] MEDS: Glucerna Shake 120 ML LIQUID PO ×4 (09:00→21:55)
[2018-04-10] MEDS: Losartan Potassium 25 MG Tablet PO (09:01)
[2018-04-10] MEDS: Gabapentin 100 MG Capsule PO ×3 (09:01→18:54)
[2018-04-10] MEDS: Ascorbic Acid 500 MG Tablet PO (09:01)
[2018-04-10] MEDS: Timolol 0.5% 5ML OPTH.BTL 5 DRP EACH EYE (09:04)
--- NOTE | 2018-04-10 09:06 | PCM.PROGNOTE ---
<Brittany Parker - Last Filed: 04/10/18 09:26> Subjective: Patient seen and examined. No acute events overnight. Pain controlled at this time. Plan to transfer to [facility] 04/11/2018 for neurosurgery evaluation. - Physical Exam General: Alert, Oriented x3, Cooperative HEENT: Atraumatic, PERRLA, EOMI, Normocephalic Neck: Supple, No JVD, Negative Carotid Bruits Lungs: Clear to auscultation, Normal air movement Cardiovascular: Regular rate, Regular Rhythm, Normal S1, Normal S2, No murmurs Abdomen: Bowel Sounds Present, Soft, Non Tender, Non-Distended Extremities: No clubbing, No cyanosis, No edema, Capillary Refill Less than 3 Seconds Skin: - - Chronic decubitus ulcers of the buttocks bilaterally Musculoskeletal: No Tenderness to Palpation of Joints or Extremities Neurological: Cranial nerves II-XII grossly intact, Neuro grossly intact Psych/Mental Status: Normal Affect, Appropriate Vital Signs Temp Pulse Resp BP Pulse Ox 97.9 F 100 14 132/82 H 95 04/10/18 02:11 04/10/18 02:11 04/10/18 02:11 04/10/18 02:11 04/10/18 02:11 Oxygen Delivery Method Room Air Weight: 164 lb 10.965 oz Body Mass Index (BMI) 30.1 Finger Stick Blood Glucose 109 Intake and Output for Last 24 Hours 04/08/18 04/09/18 04/10/18 23:59 23:59 23:59 Intake Total 1739 / 1739 3138 / 3138 1691 / 1691 Output Total 1400 / 1400 1525 / 1525 400 / 400 Balance 339 / 339 1613 / 1613 1291 / 1291 Microbiology Past 72 Hours 04/08/18 03:58 Urine Culture - Final Urine, Catheterized Presumptive E. coli 04/08/18 10:00 Stool Occult Blood (NEVAEH) - Final Stool Occult Blood Positive POC Glucose 04/10/18 04/09/18 04/09/18 06:34 22:24 16:41 POC Glucose 168 H 229 H 283 H 04/09/18 12:02 POC Glucose 239 H Medical Necessity - Tobacco Use Smoking Status: Never smoker Assessment/Plan All Active Problems (Last Reviewed 03/24/18 @ 13:10 by Jennifer Bee) Complicated urinary tract infection (Acute) Hematuria (Acute) Pressure ulcer of left buttock, stage 2 (Resolved) The patient is a 68 year old F admitted 04/08/18 due to acute on chronic bilateral lower extremity pain with new onset radicular pain in the upper extremities. 1. Acute E. coli UTI with chronic indwelling Rea catheter secondary to neurogenic bladder-UA positive. Urine culture shows presumptive E. coli, pansensitive. DC IV cefepime. Begin keflex 500mg PO X5 days. 2. 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 Transfer to [facility] 04/11/18 for neurosurgery evaluation. Plan for surgery at [facility] on Thursday. 3. Severe central canal stenosis/severe foraminal stenosis lumbar spine-per MRI of lumbar spine. [facility] transfer as noted above. 4. Chronic decubitus ulcers of the buttocks bilaterally, present on admission-frequent position changes. Wound RN consult. 5. Acute on chronic anemia with positive occult blood stool-hemoglobin stable. Possible GI blood loss due to chronic NSAID use. Will require further outpatient evaluation when patient is stable from neurosurgery standpoint. Iron studies show iron deficiency. Begin iron supplementation. Continue ascorbic acid. 6. Type 2 diabetes mellitus-hemoglobin A1c 6.2%. Accu-Cheks ACHS with sliding scale insulin. 7. Hyperlipidemia-continue statin. 8. Gout-no acute flare. Continue allopurinol. Discharge planning: [facility] transfer 04/11/18. This patient was seen by AVELINO Fuchs under the supervision of Dr. Jay. <Alberto Jay - Last Filed: 04/10/18 11:15> Subjective: Still with pain--unchanged, but having more frequent paresthesias in LUE. Chronically unable to move her lower extremities. - Physical Exam General: Alert, Cooperative HEENT: Atraumatic, Normocephalic Oral: Moist Mucosa, No Gingival or Mucosal Lesions/ Ulcerations Neck: No Nodes, Thyroid Normal Size and Texture Lungs: Clear to auscultation, Normal air movement, No rhonchi, No wheeze Cardiovascular: Regular rate, Regular Rhythm, Normal S1, Normal S2, No murmurs Abdomen: Bowel Sounds Present, Soft, Non Tender, Non-Distended Extremities: No edema, No Calf Tenderness Skin: No rashes, No breakdown, - Musculoskeletal: No Tenderness to Palpation of Joints or Extremities Neurological: Neuro grossly intact, Motor Exam 5/5 strength throughout - upper extemities only. Psych/Mental Status: Normal Affect, Appropriate Vital Signs Temp Pulse Resp BP Pulse Ox 36.6 C 109 H 18 133/79 H 96 04/10/18 09:08 04/10/18 09:08 04/10/18 09:08 04/10/18 09:08 04/10/18 09:08 Oxygen Delivery Method Room Air Weight: 74.7 kg Body Mass Index (BMI) 30.1 Finger Stick Blood Glucose 109 Intake and Output for Last 24 Hours 04/08/18 04/09/18 04/10/18 23:59 23:59 23:59 Intake Total 1739 / 1739 3138 / 3138 1691 / 1691 Output Total 1400 / 1400 1525 / 1525 400 / 400 Balance 339 / 339 1613 / 1613 1291 / 1291 Microbiology Past 72 Hours 04/08/18 03:58 Urine Culture - Final Urine, Catheterized Presumptive E. coli 04/08/18 10:00 Stool Occult Blood (NEVAEH) - Final Stool Occult Blood Positive POC Glucose 04/10/18 04/09/18 04/09/18 06:34 22:24 16:41 POC Glucose 168 H 229 H 283 H 04/09/18 12:02 POC Glucose 239 H Assessment/Plan Patient seen and examined independently. Data reviewed. I agree with the above note by the nurse practitioner. 1. Severe cervical stenosis at C1 Given the severity of the stenosis, may recommend he should patient be in a hard collar to minimize any kind of neck movement until further can be evaluated by neurosurgery. Plan is for the patient to go to [facility] on 1222 to be evaluated by the neurosurgeon at that time. Continue with prednisone 2. UTI Catheter associated Chronic Rea due to neurogenic bladder E. coli, pansensitive Keflex 3. Chronic decubitus ulcers Present on admission Wound care evaluating Will need to have repositioned every 2 hours but with caution given the patient's severe cervical stenosis. 4. Heme positive stools Hemoglobin stable Follow-up with general surgery or gastroenterology. 5. Diabetes mellitus type 2 Uncontrolled Most likely related with the dexamethasone Continue Metformin and Tradjenta Scheduled Lantus while she is on prednisone Continue sliding scale insulin 6. DVT proph; LMWH Code Visit Inpatient E&M: 58921 Subs Hosp L3
[2018-04-10 09:08] VITALS: BP 133/79; PULSE 109; RESP 18; TEMP 36.6; O2SAT 96
[2018-04-10] MEDS: LINAGLIPTIN 5 MG TABLET PO (09:16)
--- NOTE | 2018-04-10 09:26 | PN_ITS ---
<Brittany Parker - Last Filed: 04/10/18 09:26> Subjective: Patient seen and examined. No acute events overnight. Pain controlled at this time. Plan to transfer to [facility] 04/11/2018 for neurosurgery evaluation. - Physical Exam General: Alert, Oriented x3, Cooperative HEENT: Atraumatic, PERRLA, EOMI, Normocephalic Neck: Supple, No JVD, Negative Carotid Bruits Lungs: Clear to auscultation, Normal air movement Cardiovascular: Regular rate, Regular Rhythm, Normal S1, Normal S2, No murmurs Abdomen: Bowel Sounds Present, Soft, Non Tender, Non-Distended Extremities: No clubbing, No cyanosis, No edema, Capillary Refill Less than 3 Seconds Skin: - - Chronic decubitus ulcers of the buttocks bilaterally Musculoskeletal: No Tenderness to Palpation of Joints or Extremities Neurological: Cranial nerves II-XII grossly intact, Neuro grossly intact Psych/Mental Status: Normal Affect, Appropriate Vital Signs Temp Pulse Resp BP Pulse Ox 97.9 F 100 14 132/82 H 95 04/10/18 02:11 04/10/18 02:11 04/10/18 02:11 04/10/18 02:11 04/10/18 02:11 Oxygen Delivery Method Room Air Weight: 164 lb 10.965 oz Body Mass Index (BMI) 30.1 Finger Stick Blood Glucose 109 Intake and Output for Last 24 Hours 04/08/18 04/09/18 04/10/18 23:59 23:59 23:59 Intake Total 1739 / 1739 3138 / 3138 1691 / 1691 Output Total 1400 / 1400 1525 / 1525 400 / 400 Balance 339 / 339 1613 / 1613 1291 / 1291 Microbiology Past 72 Hours 04/08/18 03:58 Urine Culture - Final Urine, Catheterized Presumptive E. coli 04/08/18 10:00 Stool Occult Blood (NEVAEH) - Final Stool Occult Blood Positive POC Glucose 04/10/18 04/09/18 04/09/18 06:34 22:24 16:41 POC Glucose 168 H 229 H 283 H 04/09/18 12:02 POC Glucose 239 H Medical Necessity - Tobacco Use Smoking Status: Never smoker Assessment/Plan All Active Problems (Last Reviewed 03/24/18 @ 13:10 by Jennifer Bee) Complicated urinary tract infection (Acute) Hematuria (Acute) Pressure ulcer of left buttock, stage 2 (Resolved) The patient is a 68 year old F admitted 04/08/18 due to acute on chronic bilateral lower extremity pain with new onset radicular pain in the upper extremities. 1. Acute E. coli UTI with chronic indwelling Rea catheter secondary to neurogenic bladder-UA positive. Urine culture shows presumptive E. coli, pansensitive. DC IV cefepime. Begin keflex 500mg PO X5 days. 2. 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 Transfer to [facility] 04/11/18 for neurosurgery evaluation. Plan for surgery at [facility] on Thursday. 3. Severe central canal stenosis/severe foraminal stenosis lumbar spine-per MRI of lumbar spine. [facility] transfer as noted above. 4. Chronic decubitus ulcers of the buttocks bilaterally, present on admission- frequent position changes. Wound RN consult. 5. Acute on chronic anemia with positive occult blood stool-hemoglobin stable. Possible GI blood loss due to chronic NSAID use. Will require further outpatient evaluation when patient is stable from neurosurgery standpoint. Iron studies show iron deficiency. Begin iron supplementation. Continue ascorbic acid. 6. Type 2 diabetes mellitus-hemoglobin A1c 6.2%. Accu-Cheks ACHS with sliding scale insulin. 7. Hyperlipidemia-continue statin. 8. Gout-no acute flare. Continue allopurinol. Discharge planning: [facility] transfer 04/11/18. This patient was seen by AVELINO Fuchs under the supervision of Dr. Jay. <Alberto Jay - Last Filed: 04/10/18 11:15> Subjective: Still with pain--unchanged, but having more frequent paresthesias in LUE. Chronically unable to move her lower extremities. - Physical Exam General: Alert, Cooperative HEENT: Atraumatic, Normocephalic Oral: Moist Mucosa, No Gingival or Mucosal Lesions/ Ulcerations Neck: No Nodes, Thyroid Normal Size and Texture Lungs: Clear to auscultation, Normal air movement, No rhonchi, No wheeze Cardiovascular: Regular rate, Regular Rhythm, Normal S1, Normal S2, No murmurs Abdomen: Bowel Sounds Present, Soft, Non Tender, Non-Distended Extremities: No edema, No Calf Tenderness Skin: No rashes, No breakdown, - Musculoskeletal: No Tenderness to Palpation of Joints or Extremities Neurological: Neuro grossly intact, Motor Exam 5/5 strength throughout - upper extemities only. Psych/Mental Status: Normal Affect, Appropriate Vital Signs Temp Pulse Resp BP Pulse Ox 36.6 C 109 H 18 133/79 H 96 04/10/18 09:08 04/10/18 09:08 04/10/18 09:08 04/10/18 09:08 04/10/18 09:08 Oxygen Delivery Method Room Air Weight: 74.7 kg Body Mass Index (BMI) 30.1 Finger Stick Blood Glucose 109 Intake and Output for Last 24 Hours 04/08/18 04/09/18 04/10/18 23:59 23:59 23:59 Intake Total 1739 / 1739 3138 / 3138 1691 / 1691 Output Total 1400 / 1400 1525 / 1525 400 / 400 Balance 339 / 339 1613 / 1613 1291 / 1291 Microbiology Past 72 Hours 04/08/18 03:58 Urine Culture - Final Urine, Catheterized Presumptive E. coli 04/08/18 10:00 Stool Occult Blood (NEVAEH) - Final Stool Occult Blood Positive POC Glucose 04/10/18 04/09/18 04/09/18 06:34 22:24 16:41 POC Glucose 168 H 229 H 283 H 04/09/18 12:02 POC Glucose 239 H Assessment/Plan Patient seen and examined independently. Data reviewed. I agree with the above note by the nurse practitioner. 1. Severe cervical stenosis at C1 * Given the severity of the stenosis, may recommend he should patient be in a hard collar to minimize any kind of neck movement until further can be evaluated by neurosurgery. * Plan is for the patient to go to [facility] on 1222 to be evaluated by the neurosurgeon at that time. * Continue with prednisone 2. UTI * Catheter associated * Chronic Rea due to neurogenic bladder * E. coli, pansensitive * Keflex 3. Chronic decubitus ulcers * Present on admission * Wound care evaluating * Will need to have repositioned every 2 hours but with caution given the patient's severe cervical stenosis. 4. Heme positive stools * Hemoglobin stable * Follow-up with general surgery or gastroenterology. 5. Diabetes mellitus type 2 * Uncontrolled * Most likely related with the dexamethasone * Continue Metformin and Tradjenta * Scheduled Lantus while she is on prednisone * Continue sliding scale insulin 6. DVT proph; LMWH Code Visit Inpatient E&M: 18586 Subs Hosp L3
[2018-04-10] MEDS: Cephalexin 500 MG Capsule PO ×2 (12:46→21:45)
[2018-04-10] MEDS: Ferrous Sulfate 325 MG Tablet PO ×2 (12:46→18:54)
[2018-04-10] MEDS: Furosemide 20 MG Tablet PO (12:47)
[2018-04-10 12:50] LABS: Bedside Glucose 189 mg/dL (70-110)
[2018-04-10] MEDS: Insulin NPH Human 100 UNITS/ML PEN SC (12:54)
[2018-04-10 16:35] VITALS: BP 101/62; PULSE 97; RESP 20; TEMP 36.7; O2SAT 98
[2018-04-10 17:01] LABS: Bedside Glucose 251 mg/dL (70-110)
[2018-04-10] MEDS: Magnesium Hydroxide 30 ML UDC PO (18:54)
[2018-04-10 20:26] VITALS: BP 119/58; PULSE 96; RESP 16; TEMP 36.5; O2SAT 94
[2018-04-10] MEDS: Latanoprost 0.005% 1 Bottle 1 DRP EACH EYE (21:44)
[2018-04-10] MEDS: Atorvastatin Calcium 10 MG Tablet 5 MG PO (21:45)
[2018-04-11 00:10] LABS: Bedside Glucose 233 mg/dL (70-110)
[2018-04-11] MEDS: HYDROcodone Bitartrate/Apap 5/325 Tablet PO ×3 (02:32→14:30)
[2018-04-11 02:33] VITALS: BP 122/59; PULSE 91; RESP 18; TEMP 36.9; O2SAT 97
[2018-04-11] MEDS: Morphine 4 MG/ML Syringe IV (06:27)
[2018-04-11] MEDS: Insulin Lispro 100 UNIT/ML INSULN.PEN SC ×2 (06:35→12:01)
[2018-04-11 06:51] LABS: Bedside Glucose 154 mg/dL (70-110)
[2018-04-11 08:28] VITALS: BP 133/79; PULSE 98; RESP 20; TEMP 36.3; O2SAT 96
[2018-04-11] MEDS: Enoxaparin 40 MG/0.4 ML Syringe SC (08:34)
[2018-04-11] MEDS: Gabapentin 100 MG Capsule PO ×2 (08:34→12:03)
[2018-04-11] MEDS: Allopurinol 100 MG Tablet 200 MG PO (08:35)
[2018-04-11] MEDS: Ascorbic Acid 500 MG Tablet PO (08:35)
[2018-04-11] MEDS: Tolterodine Tartrate 4 MG CAP.SA PO (08:36)
[2018-04-11] MEDS: Furosemide 20 MG Tablet PO (08:36)
[2018-04-11] MEDS: Mirabegron 50 MG TAB.ER.24H PO (08:36)
[2018-04-11] MEDS: Multivitamins,Therapeutic Tablet 1 TABLET PO (08:36)
[2018-04-11] MEDS: metFORMIN HCl 1,000 MG Tablet 1000 MG PO (08:37)
[2018-04-11] MEDS: Glucerna Shake 120 ML LIQUID PO (08:37)
[2018-04-11] MEDS: Cephalexin 500 MG Capsule PO (08:38)
[2018-04-11] MEDS: Timolol 0.5% 5ML OPTH.BTL 1 DRP EACH EYE (08:38)
[2018-04-11] MEDS: Losartan Potassium 25 MG Tablet PO (08:39)
[2018-04-11] MEDS: LINAGLIPTIN 5 MG TABLET PO (08:47)
[2018-04-11] MEDS: Ferrous Sulfate 325 MG Tablet PO (12:03)
[2018-04-11 12:46] LABS: Bedside Glucose 208 mg/dL (70-110)
[2018-04-11 15:12] VITALS: BP 133/79; PULSE 79; RESP 20; TEMP 36.6; O2SAT 95
--- NOTE | 2018-04-11 15:23 | NURSING ---
Report Given to Ayala at [facility] at this time.
== END 2018-04-11 15:03 | disposition short-term general hospital (02) | DRG 466 ==
LOC: ED 04:19 → MS3 04:53
PROVIDERS: Internal Medicine; Admitting Provider Student in an Organized Health Care Education/Training Program; Emergency Provider Emergency Medicine; Family Provider Family Medicine; PCP Family Medicine; Referring Provider Student in an Organized Health Care Education/Training Program
DX: T83.511A Infection and inflammatory reaction due to indwelling urethral catheter, initial encounter (principal); M48.02 Spinal stenosis, cervical region; M48.061 Spinal stenosis, lumbar region without neurogenic claudication; N39.0 Urinary tract infection, site not specified; E78.5 Hyperlipidemia, unspecified; M10.9 Gout, unspecified; N31.9 Neuromuscular dysfunction of bladder, unspecified; G95.29 Other cord compression; M54.16 Radiculopathy, lumbar region; L89.313 Pressure ulcer of right buttock, stage 3; L89.324 Pressure ulcer of left buttock, stage 4; I10 Essential (primary) hypertension; D63.8 Anemia in other chronic diseases classified elsewhere; Y84.6 Urinary catheterization as the cause of abnormal reaction of the patient, or of later complication, without mention of misadventure at the time of the procedure; B96.20 Unspecified Escherichia coli [E. coli] as the cause of diseases classified elsewhere; K92.2 Gastrointestinal hemorrhage, unspecified; T39.315A Adverse effect of propionic acid derivatives, initial encounter; Z79.84 Long term (current) use of oral hypoglycemic drugs; Z93.3 Colostomy status; Z79.899 Other long term (current) drug therapy
CPT/HCPCS: 36415; 72141; 72148; 80048; 80076; 81001; 82274; 82728; 82962; 83036; 83540; 83550; 83605; 83735; 85025; 87086; 87088; 87186; 97110; 97163; 97165; 97802; 99284; J7030; J7040; A4216; J2405

== ENCOUNTER 2018-06-16 13:30 | Inpatient (IN) | payer MEDICAID, SELFPAY ==
[2018-04-08 05:23] VITALS: BMI 30.1
[2018-06-16] VITALS (11 sets, daily range): BP systolic 98–135; BP diastolic 57–73; PULSE 89–120; RESP 14–19; TEMP 36.6–37.3; O2SAT 92–96; BMI 28.1; BMI 28.2; BMI 27.7
--- NOTE | 2018-06-16 13:40 | ED.RN ---
PT ARRIVES WITH A CHEEK D/T NEUROGENIC BLADDER.
--- NOTE | 2018-06-16 14:05 | EKG12_ITS ---
Test Reason : DYSRHYTHMIA Blood Pressure : / mmHG Vent. Rate : 118 BPM Atrial Rate : 118 BPM P-R Int : 142 ms QRS Dur : 082 ms QT Int : 312 ms P-R-T Axes : 055 042 033 degrees QTc Int : 437 ms Sinus tachycardia Otherwise normal ECG Confirmed by EMY CHANEL, [place] ([id number]), index editor TERRY BLANCO ([id number]) on 06/17/2018 3:39:53 PM Referred By: Sari Frost Confirmed By:NJ QUEVEDO MD
[2018-06-16 14:46] LABS: Absolute Lymphocyte Count 0.35 X10^3/ul (0.83-4.51); Absolute Neutrophil Count 4.5 X10^3/uL (2.0-7.7); Basophil# 0.01 X10^3/uL; Basophil% 0.2 % (0-1); Hematocrit 35.6 % (37-47); Hemoglobin 11.4 g/dl (12.0-15.0); Lymphocyte # 0.35 X10^3/ul (4.0); Mean Corpuscular Hgb 27.4 pg (27.0-32.0); Mean Corpuscular Volume 85.6 fL (81-99); Mean Platelet Vol. 9.1 fl (6.2-12.0); Monocyte# 0.14 X10^3/uL; Monocyte% 2.8 % (0-10); Neutrophil # 4.45 X10^3/uL (2.7-7.7); Platelet Count 99 K/mm3 (150-450); RBC Distribution Width CV 19.7 % (11.6-14.6); RBC Distribution Width SD 61.6 fl (35.1-43.9); Red Blood Count 4.16 M/mm3 (4.2-5.4)
[2018-06-16] MEDS: 0.9% Normal Saline 1,000 ML 150 ML IV (14:47)
[2018-06-16 14:50] LABS: Differential Indicated SCAN CRITERIA MET; POSITIVE COUNT NO; POSITIVE DIFFERENTIAL YES; POSITIVE MORPHOLOGY YES
[2018-06-16 14:59] LABS: Lactic Acid 5.8 mmol/L (0.4-2.0)
[2018-06-16 15:00] LABS: Anion Gap 13 (5-15); BUN 30 mg/dL (7-18); BUN/Creat Ratio 41.6 RATIO (10-20); Calcium,Total 8.6 mg/dL (8.5-10.1); Chloride 101 mmol/L (98-107); Creatinine, Serum 0.72 mg/dL (0.55-1.02); EST Glomerular Filtration Rate 85 mL/min (>60); Est Glom Filt Rate - Afr Amer 103 mL/min (>60); Estimated Creatinine Clearance 41.99 ml/min; Glucose 531 mg/dL (74-106); Sodium Level 135 mmol/L (136-145)
--- NOTE | 2018-06-16 15:02 | ED.RN ---
LAB CALL WITH CRITICAL RESULT FOR GLUCOSE OF [address] ABDUL AND ORQUIDEA MENDES VERBALLY NOTIFIED.
--- NOTE | 2018-06-16 15:05 | ED.VISSUMM ---
- ER Visit Summary Date of Service: 06/16/18 Chief Complaint: [Wound check] History of Present Illness: The patient is a 68 F [presents the emergency department complaint of concern for infected decubitus ulcer. Patient has had cutis ulcers for about a month. It is believed by the nursing staff that the central ulceration on her sacrum is infected. There was concern of possible fever today. Patient also was noted to have some redness and swelling to her right elbow for several days. Patient denies any trauma to her elbow. Patient does have a history of diabetes, hypertension, high cholesterol. Patient has a history of gout and history of spinal stenosis. She denies any abdominal pain or chest pain.] Physical Examination: [HEENT-PERRLA, EOMI. Cranial nerves II through XII grossly intact. TMs clear. Mucous membranes moist. No adenopathy. Cardiovascular-regular rate and rhythm without murmur or ectopy Lungs-clear to auscultation, chest wall stable without crepitus or subcu emphysema Abdomen-normoactive bowel sounds, soft, nontender, no rebound or rigidity, no peritoneal signs. Pelvic exam-patient is noted to have 3 cubitus ulcers involving one on each buttock and one over the sacrum. The decubitus ulcer over the sacrum has some eschar on noted on it and diffuse erythema noted. There is some drainage and some foul odor noted. Extremities-intact ?4, normal range of motion, normal pulses, atraumatic. Right elbow-patient has bogginess and soft tissue swelling over the olecranon bursa with diffuse erythema and cellulitis noted. No significant tenderness on flexion extension at the elbow. Patient also has some faint erythema noted on the dorsal lateral aspect of the right wrist.] Test Results: Blood cultures ordered and pending. EKG obtained arrival shows sinus rhythm with a ventricular rate of 118 bpm with no acute I segment changes. CBC with differential showed a white count of 5.0, hemoglobin 11.4, hematocrit 36, platelets 99. Chemistries were unremarkable. BUN was 30 and Heber 0.72. Glucose was 531. Troponin was less than 0.015. Lactate was elevated at 5.8. [] Emergency Department Course and Treatment: [Patient was started on Zosyn and vancomycin IV.] Treatment Plan: [Patient will be admitted for IV antibiotics] Disposition: [Admit] Impression: [Sacral decubitus ulcer-infected Olecranon bursitis/cellulitis Hypoglycemia] This note was generated with [employer] dictation software. It may contain incorrect words, spelling, and punctuation that were not noted in review of the chart prior to signing ED Disposition - Plan for ED Patient: Referrals: Jones Esquivel MD [Primary Care Provider] -
[2018-06-16] MEDS: Insulin Lispro 100 UNIT/ML INSULN.PEN 12 UNIT SC (15:28)
--- NOTE | 2018-06-16 15:58 | HP.PCM_ITS ---
Problem List (1) Severe sepsis Status: Acute (2) Infected decubitus ulcer Status: Acute Qualifiers: Pressure injury stage: unspecified pressure injury stage Qualified Code(s): L89.90 - Pressure ulcer of unspecified site, unspecified stage; L08.9 - Local infection of the skin and subcutaneous tissue, unspecified (3) Olecranon bursitis of right elbow Status: Acute (4) Neurogenic bladder Status: Chronic (5) Chronic suprapubic catheter Status: Chronic (6) Hypertension Status: Chronic Qualifiers: Hypertension type: essential hypertension Qualified Code(s): I10 - Essential (primary) hypertension (7) Gout Status: Chronic Qualifiers: Gout site: unspecified site Gout etiology: unspecified cause Chronicity: unspecified Qualified Code(s): M10.9 - Gout, unspecified Comment: with arthropathy (8) Diabetic neuropathy, type II diabetes mellitus Status: Chronic Qualifiers: Diabetes mellitus ferry terminal agent insulin use: without skilled nursing use Qualified Code(s): E11.40 - Type 2 diabetes mellitus with diabetic neuropathy, unspecified (9) Colostomy in place Status: Chronic (10) chronic osteomyelitis left ischial area Status: Chronic (11) Anemia of chronic disease Status: Chronic (12) Spinal stenosis Status: Chronic Qualifiers: Spinal region: lumbosacral (13) Hyperlipidemia Status: Chronic Qualifiers: Hyperlipidemia type: unspecified Qualified Code(s): E78.5 - Hyperlipidemia, unspecified (14) RP (rectal prolapse) Status: Chronic History of Present Illness Date of Admission: 06/16/18 Chief Complaint: Malaise, Fatigue, Chills, R Elbow Redness/Pain, Foul odor from coccyx decub ulcers. The patient is a 68 y/o F w/ PMHx: History of Chronic Non-healing BL LE wounds and B/L buttock [facility] ([facility]), Spinal Stenosis and Peripheral Neuropathy, Neurogenic bladder w/ chronic roach catheter, HTN, HLD, Diabetes mellitus type II, Gout, Rectal Prolapse s/p colostomy placement, AOCD, Severe deconditioning who presents to the [facility] ED on 06/16/18 with history of malaise, fatigue, chills as well as onset right elbow erythema and fluctuance with worsened discomfort with any movement in addition to more foul-smelling odor from posterior coccyx decubitus ulcers prompting eventual ED evaluation. Workup in the ED included T 98.3, heart rate 120, BP 135/73, respiratory rate 18, 93% on room air, CBC with WBC 5, hemoglobin 11.4, platelet 99 with left shift, BMP with sodium 135, BUN/creatinine 30/0.72, glucose 531, lactic acid 5.8, troponin <0.015. ED patient data governance consultant vancomycin, Zosyn, normal saline. Past Medical History Past Medical History (Chronic Problems): Chronic Problems (Last Reviewed 03/24/18 @ 13:10 by Jennifer Bee) Open wound of left thigh (Chronic) traumatic skin tear posterior thigh Incompetent urethral closure mechanism (Chronic) Neurogenic bladder (Chronic) Stage II pressure ulcer (Chronic) Chronic suprapubic catheter (Chronic) Diabetes mellitus type 2 in nonobese (Chronic) Hypertension (Chronic) Gout (Chronic) with arthropathy Pressure ulcer of left buttock, stage 3 (Chronic) left lower buttock/upper thigh area Diabetes mellitus (Chronic) Pressure ulcer of right buttock, stage 3 (Chronic) Diabetic neuropathy, type II diabetes mellitus (Chronic) Malnutrition (Chronic) Back pain (Chronic) Arthritis (Chronic) 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 significance to followup Anemia of chronic disease (Chronic) Physical deconditioning (Chronic) Dupuytren's contracture of right hand (Chronic) Spinal stenosis (Chronic) Hyperlipidemia (Chronic) RP (rectal prolapse) (Chronic) Medical History: Medical History (Last Reviewed 03/24/18 @ 13:10 by Jennifer Bee) Open wound of left thigh (Chronic) S71.102A traumatic skin tear posterior thigh Incompetent urethral closure mechanism (Chronic) N36.8 Neurogenic bladder (Chronic) N31.9 Stage II pressure ulcer (Chronic) L89.92 Complicated urinary tract infection (Acute) N39.0 Hematuria (Acute) R31.9 Diabetes mellitus type 2 in nonobese (Chronic) E11.9 Hypertension (Chronic) I10 Gout (Chronic) M10.9 with arthropathy Pressure ulcer of left buttock, stage 3 (Chronic) L89.323 left lower buttock/upper thigh area Pressure ulcer of left buttock, stage 2 (Resolved) L89.322 Diabetes mellitus (Chronic) E11.9 Pressure ulcer of right buttock, stage 3 (Chronic) L89.313 Diabetic neuropathy, type II diabetes mellitus (Chronic) E11.40 Malnutrition (Chronic) E46 Back pain (Chronic) M54.9 Arthritis (Chronic) M19.90 chronic osteomyelitis left ischial area (Chronic) Pressure sore of left ischium, stage 4 (Chronic) L89.324 Lytic bone lesion of right femur (Chronic) M89.8X5 and right humerus ? significance to followup Anemia of chronic disease (Chronic) D63.8 Physical deconditioning (Chronic) R53.81 Dupuytren's contracture of right hand (Chronic) M72.0 Spinal stenosis (Chronic) M48.00 Hyperlipidemia (Chronic) E78.5 RP (rectal prolapse) (Chronic) K62.3 Allergies No Known Allergies Allergy (Verified 06/16/18 13:35) Home Medications: Ambulatory Orders Medication Instructions Recorded Allopurinol [Zyloprim] 200 mg PO DAILY 07/05/14 Multivitamins,Therapeutic 1 tab PO DAILY 07/05/14 [Multivitamin] Timolol Maleate [Timoptic-XE 0.5%] 1 drp EACH EYE DAILY 07/05/14 Ascorbic Acid [Vitamin C] 500 mg PO DAILY@0800 09/09/17 Metformin HCl [Glucophage] 1,000 mg PO BID 02/26/18 Atorvastatin Calcium [Lipitor] 10 mg PO QHS 06/16/18 Ciprofloxacin [Cipro] 500 mg PO BID 06/16/18 Dexamethasone [Decadron] 4 mg PO BIDCM 06/16/18 Gabapentin [Neurontin] 100 mg PO TID 06/16/18 Lactobacillus Acidophilus 1 cap PO DAILY 06/16/18 [Acidophilus] Linagliptin [Tradjenta] 5 mg PO DAILY 06/16/18 Oxycodone HCl/Acetaminophen 1 tab PO Q4H PRN PRN 06/16/18 [Oxycodone-Acetaminophen 5-325] Polyethylene Glycol 3350 [Miralax] 17 gm PO DAILY 06/16/18 Surgical History: Surgical History (Last Reviewed 03/24/18 @ 13:10 by Jennifer Bee) Chronic suprapubic catheter (Chronic) Z93.[address] (Chronic) Z93.3 Previous back surgery Z98.890 Surgical History: - - Surgery for rectal prolapse with anterior resection and rectopexy at [facility] in 2008 and back surgery 1979. Colostomy was November 2012. Excision left ischial pressure sore with partial ostectomy for osteomyelitis and excision right ischial pressure sore and excision left lateral ankle pressure sore with partial ostectomy for osteomyelitis in 08/01. Psychiatric History: No pertinent psych hx HEALTH ASSISTANT History: No pertinent HEALTH ASSISTANT history Lives: Residential Smoking Status: Never smoker Tobacco Use: Non-smoker Alcohol: None Drugs: None - *Family History Maternal History Items: Diabetes, Hypertension Paternal History Items: Diabetes, Hypertension Review of Systems Constitutional: Reports: Anorexia, Chills, Malaise, Weakness, Fatigue. Denies: Fever, Weight Change HEENT: Denies: Head Aches, Sinus Congestion, Sinus Drainage Cardiovascular: Denies: Chest Pain, Palpitations Respiratory: Denies: Cough, Shortness of breath at rest, Sputum production Gastrointestinal: Reports: - - Ostomy present.. Denies: Abdominal Pain, Nausea, Vomiting Genitourinary: Reports: - - Chronic catheter present.. Denies: Dysuria Musculoskeletal: Reports: Joint Pain, Joint stiffness, Joint swelling, Joint Tenderness, - - Neurogenic bladder, spinal stenosis with peripheral severe neuropathy and paraplegia Skin: Reports: Skin Changes, Wounds - Chronic decubitus ulcers no lower buttock region, 3 noted, at least stage III-IV. Denies: Rash Neurological: Denies: Numbness, Tingling, Focal weakness Psychiatric: Denies: Anxiety, Depression, Homicidal Ideations, Suicidal Ideations Hematologic/ Lymphatic: Reports: Anemia. Denies: Easy Bruising, Easy Bleeding VTE Information - Inpt Only VTE Present on Admission: No VTE Mechan Device Prophylaxis: SCD's VTE Pharm Prophylaxis ordered?: Yes Patient Problems: Active and Suspected Problems (Last Reviewed 03/24/18 @ 13:10 by Jennifer Bee) Infected decubitus ulcer (Acute) Olecranon bursitis of right elbow (Acute) Severe sepsis (Acute) Subjective: Seated upright in ED bed, fatigued appearing, notes ongoing discomfort to primarily the right elbow but otherwise no acute complaints. Objective: Physical Examination: General: awake, alert, oriented x 3 and cooperative, seated upright in the ED bed in no apparent distress. Skin: normal color, turgor, no icterus, cyanosis except occasional extremity ecchymoses, bilateral stage III-IV ischial decubitus ulcers, middle with notable foul older and also copious slough, right elbow with notable erythema extending to mid bicep and mid forearm, tender to palpation, fluctuant and boggy. HEENT: AT/NC, EOMI, PERRLA, mildly dry MM, no carotid bruits or JVD noted. Lungs: Diminished BS BL, > BL bases, moderate effort, mild decrease BL bases, no rales, ronchi or wheezing. Heart: Cardiac with regular rhythm; no gallop, rub audible. Abdomen: soft, obese, ostomy in place with appropriate output, NTTP, ND, normal BS, no HSM, roach in place. Extremities: no cyanosis, clubbing, BL ankle edema, non-pitting no evidence of muscle wasting. Neurological: patient awake, alert, oriented x 3; cognitive function intact; pupils equally reactive to light and accomodation; cranial nerves II-XII grossly normal, moving all 4 extremities, chronic contracture RUE as well as bilateral lower extremity with functional paraplegia, strength severely globally decreased. Psychiatric: affect appears fatigued, no acute evidence of depressive or anxiety feelings. - Physical Exam Vital Signs Temp Pulse Resp BP Pulse Ox 98.9 F 115 H 14 113/57 L 93 06/16/18 15:00 06/16/18 15:00 06/16/18 15:00 06/16/18 15:00 06/16/18 15:00 Oxygen Delivery Method Room Air Weight: 154 lb Body Mass Index (BMI) 28.1 Finger Stick Blood Glucose 109 Laboratory Tests Past 24 Hrs 06/16/18 06/16/18 06/16/18 14:17 14:17 14:17 WBC 5.0 RBC 4.16 L Hgb 11.4 L Hct 35.6 L MCV 85.6 MCH 27.4 MCHC 32.0 RDW 19.7 H RDW Differential 61.6 H Plt Count 99 L MPV 9.1 Immature Gran % (Auto) 1.000 H Neut % (Auto) 89.0 H Lymph % (Auto) 7.0 L Elmore % (Auto) 2.8 Eos % (Auto) 0.0 Baso % (Auto) 0.2 Absolute Neuts (auto) 4.5 Absolute Lymphs (auto) 0.35 L Total Counted Not Reportable Differential Comment COMMENT Sodium 135 L Potassium 4.0 Chloride 101 Carbon Dioxide 21.0 Anion Gap 13 BUN 30 H Creatinine 0.72 Estim Creat Clear Calc 41.99 Est GFR (MDRD) Af Amer 103 Est GFR (MDRD) Non-Af 85 BUN/Creatinine Ratio 41.6 H Glucose 531 H* Lactic Acid 5.8 H* Calcium 8.6 Troponin I < 0.015 Assessment/Plan All Active Problems (Last Reviewed 03/24/18 @ 13:10 by Jennifer Bee) Infected decubitus ulcer (Acute) Olecranon bursitis of right elbow (Acute) Severe sepsis (Acute) Complicated urinary tract infection (Acute) Hematuria (Acute) Pressure ulcer of left buttock, stage 2 (Resolved) The patient is a 68 y/o F w/ PMHx: History of Chronic Non-healing BL LE wounds and B/L buttock [facility] ([facility]), Spinal Stenosis and Peripheral Neuropathy, Neurogenic bladder w/ chronic roach catheter, HTN, HLD, Diabetes mellitus type II, Gout, Rectal Prolapse s/p colostomy placement, AOCD, Severe deconditioning who presents to the [facility] ED on 06/16/18 with history of malaise, fatigue, chills as well as onset right elbow erythema and fluctuance with worsened discomfort with any movement in addition to more foul-smelling odor from posterior coccyx decubitus ulcers prompting eventual ED evaluation. (1) Suspected infected decubitus ulcer, coccyx with additional well-appearing unclear stage ischial chronic ulcers concurrently: Will admit to PCU and severe sepsis, maintain on IV vancomycin and Zosyn, Dr. Myles, plastic surgeon, consulted and suspect might need operative debridement of at least 1 of the ulcers, would plan OR Wound Cx, wound RN consulted, continue dressing changes per their discretion. (2) Olecranon bursitis with erythema: Will maintain on IV Zosyn and Vanc, discussed w/ Orthopedic Surgery Dr. Luther who will evaluate and will obtain MRI elbow with contrast to further assess, continue affected extremity elevation above heart when seated and in bed, monitor erythema outline with VS checks. (3) Severe sepsis (technically lactic acid greater than 4 however vitals otherwise stable with improving tachycardia with IV fluids, appearance not consistent with septic shock) secondary to #1, #2: As noted will admit, maintain on broad-spectrum antibiotic therapy, continue aggressive hydration, surgery consulted for possible coccyx debridement in addition to orthopedic surgery evaluation of olecranon with pending MRI. Trend LA. (4) Hyperglycemia with diabetes mellitus type II: Hold oral home regimen, administer lantus 20 u x 1 now, obtain HgbA1c although suspect elevation secondary to acute infections with severe sepsis as noted, allow ADA diet, accu checks w/ ISS, nutrition consultation for education and teaching. (5) Hypertension: Continue home regimen including losartan, PRN hydralazine. (6) Hyperlipidemia: Continue home statin regimen. (7) Spinal Stenosis and Peripheral Neuropathy w/ Neurogenic bladder, Paraplegia: Fall precautions, position changes, he will contact us, chronic roach catheter, PT, OT, case management consulted. (8) AOCD: Admission Hgb 11.4, stable, trend. (9) DVT Prophylaxis: SCDs, lovenox. (10) CODE status: DNR-CC, SNF paperwork. Code Visit Inpatient E&M: 66433 Init Hosp L3
--- NOTE | 2018-06-16 16:32 | CASEMGMT ---
RN CM Assessment Introduced role of RN CM to patient. Patient is alert, oriented and able to participate in RN CM Assessment. Care providers, pharmacy, and demographics verified. Presentation: Amitted for Sepsis, R Orecranon Brusitis, Infected Sacral Decubitus. CC: Wound Check 04/08/18-04/11/18- Admitted for Acute on Chronic Bilt LE pain, New onset radicular pain in upper extremities. Acute E Coli UTI w/chronic Indwelling Rea. Transferred to [facility] for Neurosurgery eval for possible surgical intervention. PCP: Dr Power Esquivel Specialists: Neuro Surg @ [facility] Dr Magno Marcano? Per google. Preferred Pharmacy: [facility] Insurance: Medicaid Prescription Benefit: Yes LNOK: Brother Rolf Kasper Living Arrangements: Lives with brother and [id number] in a 3 story house, resides on lower floor. Does not ambulate, uses walker to transfer to . Has been at [facility] for PT/RN. [id number] does grocery shopping. Receives [employer] to assist with ADL's, Thursday-2hrs, Thursday- 1Hr, Thursday- 2Hrs. Transportation: [employer] in past, Ambulance on DC d/t wounds/positioning. DME: [employer] . Receives Ostomy/Wound Supplies from [place]. HHC: [facility] in past SNF: Currently [facility] for PT/RN DC PLAN: Back to [facility]. Patient would like to s/w ALEX regarding Advanced Directive. GRACIA Villavicencio
--- NOTE | 2018-06-16 16:45 | MRI_ITS ---
STUDY: MRI RIGHT ELBOW WITHOUT AND WITH CONTRAST REASON FOR EXAM: Female, 68 years old. Swelling and redness. TECHNIQUE: Standardized fat and water weighted pulse sequences were obtained in all 3 orthogonal planes prior to and following intravenous administration of 7 mL Gadavist. COMPARISON: None. FINDINGS: There is a 3.2 x 2.2 x 1.0 cm nonenhancing fluid collection in the olecranon region, series 3 images 03/15 through . There is moderate arthrosis of the radio-capitellum articulation. Normal radial collateral ligamentous complex. There is a tendinosis of the common extensor tendon origin with a partial deep surface tear. There is moderate arthrosis of the ulnotrochlear articulation. Normal ulnar collateral ligamentous complex. Normal common flexor tendon. The cubital tunnel is normal, with a normal ulnar nerve. There is moderate joint effusion. There are 1.0 and 0.8 cm loose bodies on the volar aspect. Normal biceps tendon and distal insertion. Normal lacertus fibrosis. Normal brachialis musculotendinous insertion. Normal triceps tendon and teno-osseous insertion. Normal olecranon process. The visualized distal humerus, proximal radius, and ulna are normal. The visualized muscles of the distal arm and proximal forearm are normal. MRI/Upper Ext Joint Only W/WO Cont IMPRESSION: Olecranon bursitis with fluid collection. Abscess could be considered in the setting of infection. Degenerative change. Joint effusion with loose bodies. Electronically Signed: Kirill Akhtar MD at 20:27 EST , Service support ,
[2018-06-16 16:59] LABS: Magnesium 1.8 mg/dL (1.6-2.6)
[2018-06-16] MEDS: 0.9% Normal Saline 1,000 ML 125 ML IV (17:00)
[2018-06-16 17:15] LABS: Bedside Glucose 400 mg/dL (70-110)
--- NOTE | 2018-06-16 18:07 | PCM.RX.CS ---
Consult Pharmacy has been consulted to manage selected antiobiotic: Vancomycin Type of Consult: New start Suspected Infection: Skin/Soft tissue Prior Doses of Antibiotics Received/Current Regimen: VANCOMYCIN 1G IV X1 IN ED 06/16 @1447 Labs: Sodium 135 mmol/L (136-145) L 06/16/18 14:17 Potassium 4.0 mmol/L (3.5-5.1) 06/16/18 14:17 Chloride 101 mmol/L (98-107) 06/16/18 14:17 Carbon Dioxide 21.0 mmol/L (21.0-32.0) 06/16/18 14:17 Anion Gap 13 (5-15) 06/16/18 14:17 BUN 30 mg/dL (7-18) H 06/16/18 14:17 Creatinine 0.72 mg/dL (0.55-1.02) 06/16/18 14:17 Est GFR (MDRD) Af Amer 103 mL/min (>60) 06/16/18 14:17 Est GFR (MDRD) Non-Af 85 mL/min (>60) 06/16/18 14:17 BUN/Creatinine Ratio 41.6 RATIO (10-20) H 06/16/18 14:17 Glucose 531 mg/dL (74-106) H* 06/16/18 14:17 Weight used for dosin.8 kg Estimated Creatinine Clearance: 42 ML/MIN Goal Trough: 10-15 mcg/mL Pharmacy Plan for Drug Dosing: PLAN/RECOMMENDATIONS 1. Vancomycin 750mg IV Q24hrs to start 06/17/18 @ 1500 2. Trough scheduled prior to 3rd total dose of vancomycin per protocol (06/18/18 @1430) 3. Pharmacy Service will continue to monitor and adjust dosing as required.
[2018-06-16] MEDS: Insulin Lispro 100 UNIT/ML INSULN.PEN SC ×2 (18:19→22:53)
[2018-06-16] MEDS: Tolterodine Tartrate 4 MG CAP.SA PO (18:21)
[2018-06-16 18:30] LABS: Reflex Lactate? Y
[2018-06-16 18:59] LABS: Hemoglobin A1c 10.3 % (4.2-6.3)
--- NOTE | 2018-06-16 20:35 | PCM.CONS.GEN ---
Reason for Consult Date of Consultation: 06/16/18 Reason for Consultation: Infected necrotic sacral pressure sore and bilateral ischial pressure sores. REFERRING PHYSICIAN: Dr. Frost. FARM MECHANIC: Dr. Myles. History of Present Illness: The patient is a 68 y/o F with a history of spinal stenosis and diabetes mellitus presented to the ED with sepsis with a lactate of 5.8. She has an infected necrotic sacral pressure sore as well as bilateral ischial pressures and a history of chronic osteomyelitis. She also has redness and edema around the right elbow. Also in the ED, her WBC was normal at 5. Her glucose was elevated at 531. She was started on broad spectrum IV antibiotics with Vancomycin and Zosyn. I was asked to evaluate this patient for surgical options for treatment. She complains of malaise, and fatigue, and chills. Orthopedic Surgery was consulted to evaluate the right elbow redness. Past Medical History Past Medical History (Chronic Problems): Chronic Problems (Last Reviewed 03/24/18 @ 13:10 by Jennifer Bee) Chronic osteomyelitis of left pelvic region (Chronic) Right ischial pressure sore, stage 4 (Chronic) Open wound of left thigh (Chronic) traumatic skin tear posterior thigh Incompetent urethral closure mechanism (Chronic) Neurogenic bladder (Chronic) Stage II pressure ulcer (Chronic) Chronic suprapubic catheter (Chronic) Diabetes mellitus type 2 in nonobese (Chronic) Hypertension (Chronic) Gout (Chronic) with arthropathy Pressure ulcer of left buttock, stage 3 (Chronic) left lower buttock/upper thigh area Diabetes mellitus (Chronic) Pressure ulcer of right buttock, stage 3 (Chronic) Diabetic neuropathy, type II diabetes mellitus (Chronic) Malnutrition (Chronic) Back pain (Chronic) Arthritis (Chronic) 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 significance to followup Anemia of chronic disease (Chronic) Physical deconditioning (Chronic) Dupuytren's contracture of right hand (Chronic) Spinal stenosis (Chronic) Hyperlipidemia (Chronic) RP (rectal prolapse) (Chronic) Medical History: Medical History (Last Reviewed 03/24/18 @ 13:10 by Jennifer Bee) Open wound of left thigh (Chronic) S71.102A traumatic skin tear posterior thigh Incompetent urethral closure mechanism (Chronic) N36.8 Neurogenic bladder (Chronic) N31.9 Stage II pressure ulcer (Chronic) L89.92 Complicated urinary tract infection (Acute) N39.0 Hematuria (Acute) R31.9 Diabetes mellitus type 2 in nonobese (Chronic) E11.9 Hypertension (Chronic) I10 Gout (Chronic) M10.9 with arthropathy Pressure ulcer of left buttock, stage 3 (Chronic) L89.323 left lower buttock/upper thigh area Pressure ulcer of left buttock, stage 2 (Resolved) L89.322 Diabetes mellitus (Chronic) E11.9 Pressure ulcer of right buttock, stage 3 (Chronic) L89.313 Diabetic neuropathy, type II diabetes mellitus (Chronic) E11.40 Malnutrition (Chronic) E46 Back pain (Chronic) M54.9 Arthritis (Chronic) M19.90 chronic osteomyelitis left ischial area (Chronic) Pressure sore of left ischium, stage 4 (Chronic) L89.324 Lytic bone lesion of right femur (Chronic) M89.8X5 and right humerus ? significance to followup Anemia of chronic disease (Chronic) D63.8 Physical deconditioning (Chronic) R53.81 Dupuytren's contracture of right hand (Chronic) M72.0 Spinal stenosis (Chronic) M48.00 Hyperlipidemia (Chronic) E78.5 RP (rectal prolapse) (Chronic) K62.3 Allergies No Known Allergies Allergy (Verified 06/16/18 13:35) Current Medications Acetaminophen (Tylenol) 650 mg PO Q6H PRN PRN PRN Reason: Non-cardiac pain (mod-severe) Hydrocodone Bitart/Acetaminophen (Wolcott 5mg-325mg) 1 - 2 tablet PO Q6H PRN PRN PRN Reason: Moderate-severe pain Al Hydroxide/Mg Hydroxide (Mylanta Ii) 30 ml PO Q6H PRN PRN PRN Reason: Gastric burning Allopurinol (Zyloprim) 200 mg PO DAILY [facility] Ascorbic Acid (Vitamin C) 500 mg PO DAILY@0800 [facility] Atorvastatin Calcium (Lipitor) 5 mg PO QHS [facility] Dextrose (D50w Syringe) 0 gm IV X1 PRN; Protocol PRN Reason: Hypoglycemia Enoxaparin Sodium (Lovenox) 40 mg SC DAILY@1000 KEKE Glucagon () 1 mg IM .X1 PRN PRN Reason: Hypoglycemia Hydralazine HCl (Apresoline Iv) 10 mg IV Q4H PRN PRN PRN Reason: SBP > 160 Sodium Chloride () 1,000 mls @ 125 mls/hr IV .Q8H [facility] Last Admin: 06/16/18 17:00 Dose: 125 mls/hr Piperacillin Sod/Tazobactam (Sod 3.375 gm/ Sodium Chloride) 50 mls @ 12.5 mls/hr IV Q8 [facility] Vancomycin IV Pharmacy to Dose (1 ea/ Sodium Chloride) 500 mls @ 250 mls/hr IV PRN PRN; Protocol PRN Reason: Rx to Dose Vancomycin HCl 750 mg/ Sodium (Chloride) 265 mls @ 250 mls/hr IV Q24H [facility] Insulin Human Lispro (Humalog Kwikpen (Bkc)) 0 unit SC ACHS [facility]; Protocol Last Admin: 06/16/18 18:19 Dose: 10 units Latanoprost (Xalatan Opthalmic) 1 drop EACH EYE QHS [facility] Losartan Potassium (Cozaar) 25 mg PO DAILY [facility] Magnesium Hydroxide (Milk Of Magnesia) 30 ml PO DAILY PRN PRN Reason: Constipation Methenamine Hippurate (Hiprex) 1 gm PO BID [facility] Morphine Sulfate () 1 - 2 mg IV Q4H PRN PRN PRN Reason: PAIN [facility]ivit[facility] ([facility]itamin) [facility] Nutritional Formula (Lactose Free) (Glucerna Shake) 120 ml PO 4X/DAY [facility] Ondansetron HCl (Zofran) 4 mg IV Q8H PRN PRN PRN Reason: NAUSEA/VOMITING Potassium Chloride (K-Dur) 20 meq [facility] Timolol Maleate (Timoptic) 1 drop EACH EYE DAILY [facility] Tolterodine Tartrate (Detrol La) 4 mg PO DINNER [facility] Last Admin: 06/16/18 18:21 Dose: 4 mg Home Medications: Ambulatory Orders Medication Instructions Recorded Allopurinol [Zyloprim] 200 mg PO DAILY 07/05/14 Multivitamins,Therapeutic 1 tab PO DAILY 07/05/14 [Multivitamin] Timolol Maleate [Timoptic-XE 0.5%] 1 drp EACH EYE DAILY 07/05/14 Ascorbic Acid [Vitamin C] 500 mg PO DAILY@0800 09/09/17 Metformin HCl [Glucophage] 1,000 mg PO BID 02/26/18 Atorvastatin Calcium [Lipitor] 10 mg PO QHS 06/16/18 Ciprofloxacin [Cipro] 500 mg PO BID 06/16/18 Dexamethasone [Decadron] 4 mg PO BIDCM 06/16/18 Gabapentin [Neurontin] 100 mg PO TID 06/16/18 Lactobacillus Acidophilus 1 cap PO DAILY 06/16/18 [Acidophilus] Linagliptin [Tradjenta] 5 mg PO DAILY 06/16/18 Oxycodone HCl/Acetaminophen 1 tab PO Q4H PRN PRN 06/16/18 [Oxycodone-Acetaminophen 5-325] Polyethylene Glycol 3350 [Miralax] 17 gm PO DAILY 06/16/18 Surgical History: Surgical History (Last Reviewed 03/24/18 @ 13:10 by Jennifer Bee) Chronic suprapubic catheter (Chronic) Z93.[address] (Chronic) Z93.3 Previous back surgery Z98.890 Surgical History: - - Surgery for rectal prolapse with anterior resection and rectopexy at [facility] in 2008 and back surgery 1979. Colostomy was November 2012. Excision left ischial pressure sore with partial ostectomy for osteomyelitis and excision right ischial pressure sore and excision left lateral ankle pressure sore with partial ostectomy for osteomyelitis in 08/01. Psychiatric History: No pertinent psych hx CILNICAL SCIENTIST History: No pertinent CILNICAL SCIENTIST history Lives: Retirement Smoking Status: Never smoker Tobacco Use: Non-smoker Alcohol: None Drugs: None - *Family History Maternal History Items: Diabetes, Hypertension Paternal History Items: Diabetes, Hypertension Review of Systems Comment: Constitutional: Reports: Anorexia, Chills, Malaise, Weakness, Fatigue. Denies: Fever, Weight Change. HEENT: Denies: Head Aches, Sinus Congestion, Sinus Drainage. Cardiovascular: Denies: Chest Pain, Palpitations. Respiratory: Denies: Cough, Shortness of breath at rest, Sputum production. Gastrointestinal: Reports: - - Ostomy present.. Denies: Abdominal Pain, Nausea, Vomiting. Genitourinary: Reports: - - Chronic catheter present.. Denies: Dysuria. Musculoskeletal: Reports: Joint Pain, Joint stiffness, Joint swelling, Joint Tenderness, - - Neurogenic bladder, spinal stenosis with peripheral severe neuropathy and paraplegia. Skin: Has bilateral ischial pressure sore, Stage IV, with history of osteomyelitis. Has infected necrosis sacral pressure sore, probable Stage IV. Denies: Rash. Neurological: Denies: Numbness, Tingling, Focal weakness. Psychiatric: Denies: Anxiety, Depression, Homicidal Ideations, Suicidal Ideations. Hematologic/ Lymphatic: Reports: Anemia. Denies: Easy Bruising, Easy Bleeding Patient Problems: Active and Suspected Problems (Last Reviewed 03/24/18 @ 13:10 by Jennifer Bee) Abscess, wrist (Acute) Septic olecranon bursitis of right elbow (Acute) Skin necrosis (Acute) Stage IV pressure ulcer of sacral region (Acute) with infected necrosis Infected decubitus ulcer (Acute) Olecranon bursitis of right elbow (Acute) Severe sepsis (Acute) - Physical Exam Physical Examination: General: awake, alert, oriented x 3 and cooperative. Skin: normal color, turgor, no icterus, cyanosis except occasional extremity ecchymoses, bilateral stage III-IV ischial decubitus ulcers, middle with notable foul older and also copious slough, right elbow with notable erythema extending to mid bicep and mid forearm, tender to palpation, fluctuant and boggy. HEENT: EOMI, PERRLA. Throat is clear. Neck: Supple, nontender. No cervical adenopathy. Lungs: Diminished breath sounds at the bases. No wheezing. Heart: regular rhythm; no gallop, rub audible. Abdomen: soft, nondistended. Ostomy in place. Rea catheter in place. On the sacral area is a pressure sore with necrosis. Nontender. Some drainage. Probable Stage IV after debridement. Measures 6 x 8 cm. Anticipate bony involvement. Has bilateral ischial pressure sores, Stage IV. Bone is palpable. Measures 6 x 4 x 3 cm on the right. Measures 3 x 2 x 3 cm on the left. No cellulitis, fluctuance, or purulent drainage. Extremities: no cyanosis, clubbing, Some edema lower extremities. On the right elbow is some erythema extending onto forearm distally and arm proximally. Some edema. Some tenderness. No purulent drainage. Neurological: cranial nerves II-XII grossly normal. Functional paraplegia, strength decreased. Psychiatric: affect appears fatigued, no acute evidence of depressive or anxiety feelings. Vital Signs Temp Pulse Resp BP Pulse Ox 99.1 F 119 H 19 H 132/72 H 92 06/16/18 16:48 06/16/18 18:06 06/16/18 16:48 06/16/18 16:48 06/16/18 16:48 Oxygen Delivery Method Room Air Weight: 151 lb 12.8 oz Body Mass Index (BMI) 27.7 Finger Stick Blood Glucose 109 Laboratory Tests Past 24 Hrs 06/16/18 06/16/18 06/16/18 14:17 14:17 14:17 WBC 5.0 RBC 4.16 L Hgb 11.4 L Hct 35.6 L MCV 85.6 MCH 27.4 MCHC 32.0 RDW 19.7 H RDW Differential 61.6 H Plt Count 99 L MPV 9.1 Immature Gran % (Auto) 1.000 H Neut % (Auto) 89.0 H Lymph % (Auto) 7.0 L Billings % (Auto) 2.8 Eos % (Auto) 0.0 Baso % (Auto) 0.2 Absolute Neuts (auto) 4.5 Absolute Lymphs (auto) 0.35 L Total Counted Not Reportable Differential Comment COMMENT Sodium 135 L Potassium 4.0 Chloride 101 Carbon Dioxide 21.0 Anion Gap 13 BUN 30 H Creatinine 0.72 Estim Creat Clear Calc 41.99 Est GFR (MDRD) Af Amer 103 Est GFR (MDRD) Non-Af 85 BUN/Creatinine Ratio 41.6 H Glucose 531 H* Hemoglobin A1c Lactic Acid 5.8 H* Calcium 8.6 Magnesium Troponin I < 0.015 06/16/18 06/16/18 14:17 14:17 WBC RBC Hgb Hct MCV MCH MCHC RDW RDW Differential Plt Count MPV Immature Gran % (Auto) Neut % (Auto) Lymph % (Auto) Billings % (Auto) Eos % (Auto) Baso % (Auto) Absolute Neuts (auto) Absolute Lymphs (auto) Total Counted Differential Comment Sodium Potassium Chloride Carbon Dioxide Anion Gap BUN Creatinine Estim Creat Clear Calc Est GFR (MDRD) Af Amer Est GFR (MDRD) Non-Af BUN/Creatinine Ratio Glucose Hemoglobin A1c 10.3 H Lactic Acid Calcium Magnesium 1.8 Troponin I POC Glucose 06/16/18 17:09 POC Glucose 400 H Assessment/Plan All Active Problems (Last Reviewed 03/24/18 @ 13:10 by Jennifer Bee) Abscess, wrist (Acute) Septic olecranon bursitis of right elbow (Acute) Skin necrosis (Acute) Stage IV pressure ulcer of sacral region (Acute) Infected decubitus ulcer (Acute) Olecranon bursitis of right elbow (Acute) Severe sepsis (Acute) Complicated urinary tract infection (Acute) Hematuria (Acute) Pressure ulcer of left buttock, stage 2 (Resolved) 1. Infected necrotic sacral pressure sore, probable Stage IV. 2. Bilateral ischial pressure sores, Stage IV. 3. Chronic osteomyelitis left ischial area. 4. Sepsis. 5. Diabetes mellitus. 6. History of UTI's. 7. Spinal stenosis. 8. Right elbow infection. Continue wound care for now with saline wet to dry twice daily. Continue broad spectrum antibiotics for now with Vancomycin and Zosyn. At the time of surgery, will send soft tissue and bone for culture as well as to Pathology to evaluate for carcinoma and osteomyelitis. A positive culture may necessitate antibiotic modification and fdc IV antibiotics with the use of a PICC line. Patient also has history of UTI's with Proteus and Enterococcus. Will check a Urinalysis. Recommend operative excision of these pressure sores along with partial ostectomies for osteomyelitis. Postop will start wound care with the VAC. Will check a CT Pelvis preop to look for suspicion of osteomyelitis. Anticipate increased metabolic demands from the wounds and the infection. Will check a Prealbumin and encourage nutritional supplementation with protein to help the healing process. Discussed wound closure with myocutaneous flaps in the past with the patient. She has denied in the past and I anticipate likewise at this time. Will ask her again after the initial operative debridement. After discharge, followup at [facility]. Patient was informed of the risks and complications of the procedure including alternatives to surgery. These were discussed with the patient personally. Patient voices understanding and wishes to proceed. Orthopedic Surgery has been consulted to evaluate the right elbow infection. Code Visit Inpatient E&M: 39381 Init Hosp L2 - ICD-10 - L89.154, I96, L89.314, L89.324, M86.652, A41.9, E11.9, M48.00
--- NOTE | 2018-06-16 21:15 | CT_ITS ---
STUDY: CT PELVIS WITHOUT CONTRAST REASON FOR EXAM: Female, 68 years old. Infected sacrum and ischium. Pressure sores. RADIATION DOSAGE (If Supplied By Facility): CTDIvol = ( 28.21 ) mGy, DLP = ( 1304.42 ) mGycm TECHNIQUE: Transaxial imaging of the pelvis was performed with oral contrast, and without intravenous administration of contrast material. Individualized dose optimization techniques were used for this CT. COMPARISON: 06/14/2014. FINDINGS: There is a Rea catheter in the bladder. There is air in the bladder presumably secondary to catheterization. There is density within the bladder which may represent blood clots or blood. Tumor cannot be excluded. There is an ostomy in the left lower quadrant. There are fluid-filled small bowel loops without evidence of small bowel obstruction. There is fluid posterior to the bladder. There is otherwise no pelvic mass lesion or lymphadenopathy. There is diffuse atherosclerotic calcification of the pelvic arteries. There is a soft tissue ulceration of the left buttock with air extending posterior to the left ischium. Soft tissue laceration is also noted in the right buttock extending posterior to the right ischium. There are advanced degenerative changes in the spine. There is demineralization of the osseous structures. There is no demonstrated definite destructive bony process and heterotopic bone formations are seen medial to the left hip. The bony structures are demineralized.. CT/Pelvis without IV Contrast IMPRESSION: 1. Rea catheter in the bladder. 2. Dense fluid within the bladder which could represent blood or blood clots. Pus is possible. 3. Free fluid in the pelvis posterior to the bladder. 4. Soft tissue ulcerations in the buttock regions bilaterally extending posterior to the ischium. No drainable abscess is seen at this time. 5. Left lower quadrant ostomy. 6. Degenerative changes in the spine. No demonstrated definite destructive bony process. If osteomyelitis is suspected clinically, three-phase bone scan might be of value. Electronically Signed: Dutch Willoughby MD at 23:11 EST Tel , Service support ,
[2018-06-16 21:25] LABS: Lactic Acid 5.7 mmol/L (0.4-2.0)
[2018-06-16 21:35] LABS: Bedside Glucose 368 mg/dL (70-110)
[2018-06-16] MEDS: METHENAMINE HIPPURATE 1 GM TABLET PO (22:53)
[2018-06-16] MEDS: Glucerna Shake 120 ML LIQUID PO (22:53)
[2018-06-16] MEDS: NYSTATIN 500,000 UNIT/5 ML UDC 500000 UNIT PO (22:55)
[2018-06-16] MEDS: Latanoprost 0.005% 1 Bottle 1 DRP EACH EYE (22:55)
[2018-06-16] MEDS: Atorvastatin Calcium 10 MG Tablet 5 MG PO (23:12)
[2018-06-16 23:30] LABS: Bedside Glucose 321 mg/dL (70-110)
[2018-06-17] VITALS (25 sets, daily range): BP systolic 73–135; BP diastolic 48–77; PULSE 87–142; RESP 14–19; TEMP 36.6–37.9; O2SAT 94–100; BMI 27.9
--- NOTE | 2018-06-17 | PRES_PTH ---
PATIENT: VAZQUEZ ZAMBRANO LOC: [facility] U#:[id number] AGE/SX: 68/F ROOM: [facility] RE06/16/[address]: Dr. Elissa Muñoz MD : 1950 BED: 1 DIS: 06/22/2018 SPEC #: [id number] RECD: 06/17/18 16:45 STATUS: CORTNEY REQ #: [id number] JUDY: 06/17/18 00:[address]: Wesley Myles DEPT: SURGICAL PATHOLOGY RECD BY: Alvin Kelly ENTERED: 06/18/18 10:57 SP TYPE: PRESS SORE OTHR DR: MD Dr. Power Jimenez MD Dr. Joseph Borruso, DO Dr. James A Slaby, MD Dr. Prakash Chand, MD Tissues: A - Sacral region B - Sacral region C - Ischium, NOS D - Ischium, NOS E - Ischium, NOS F - Ischium, NOS Procedures: Decalcification bone/plaque Surgery Specimen Level IV Comments: @ Ordering doctor for DEC edited from to @ by RAYMOND at 06/18/18 1412 @ Ordering doctor for SUIV edited from to @ mindy ANDRADE at 06/18/18 1415 @ Submitting doctor edited from to DR.JSLABY Glenna ANDRADE at 06/18/18 1415 HEADER OPERATION: Excision pressure sore, partial ostectomy, ischial and sacral PRE-OP DIAGNOSIS: Sacral and bilateral ischial pressure sore and right elbow infection TISSUE SUBMITTED: A - Sacral bone, B - Sacral tissue, C - Right ischial bone, D - Right ischial tissue, E - Left ischial bone, F - Left ischial tissue MICROSCOPIC DIAGNOSIS A. Sacral bone, biopsy: Fragments of bone and fibrofatty tissue with reparative and reactive change. No evidence of acute osteomyelitis. B. Sacral tissue, biopsy: Skin and soft tissue with ulceration, granulation, microabscess formation and bacterial colonies. C. Right ischial bone, biopsy: Consistent with chronic osteomyelitis. D. Right ischial tissue, excision: Skin and underlying soft tissue with ulceration, acute and chronic inflammation and granulation. E. Left ischial bone, biopsy: Chronic reparative and reactive change. No evidence of acute osteomyelitis. F. Left ischial tissue, excision: Skin and associated soft tissue with ulceration, acute and chronic inflammation and granulation. AM:clare 06/23/18 MICROSCOPIC DESCRIPTION Slides are reviewed. GROSS DESCRIPTION A - Received in fixative is one container labeled with the patient's name and designated sacral bone. The specimen consists of multiple fragments of bone that in aggregate measure 3 x 2.5 x 0.4 cm. The entire specimen is submitted in one cassette after decalcification. B - Received in fixative is one container labeled with the patient's name and designated sacral tissue. The specimen consists of an irregular piece of malone-white skin with underlying tissue measuring 6 x 6 x 3 cm. An extensive area of ulceration is noted on the surface. Mill Oiler sections are submitted in one cassette. C - Received in fixative is one container labeled with the patient's name and designated right ischial bone. The specimen consists of two pieces of bone that in aggregate measure 2.5 x 2 x 0.3 cm. The entire specimen is submitted in one cassette after decalcification. D - Received in fixative is one container labeled with the patient's name and designated right ischial tissue. The specimen consists of a piece of skin with underlying tissue measuring 5.5 x 4 x 2.5 cm. The skin surface shows an area of ulceration. Mill Oiler sections are submitted in one cassette. E - Received in fixative is one container labeled with the patient's name and designated left ischial bone. The specimen consists of a piece of bone measuring 5.5 x 2.5 x 1.5 cm. Also present in the container are multiple smaller pieces that in aggregate measure 3 x 2.5 x 0.4 cm. Mill Oiler sections are submitted in two cassettes after decalcification as follows: 1 - detached pieces of tissue, 2 - section from the largest piece of bone. F - Received in fixative is one container labeled with the patient's name and designated left ischial tissue. The specimen consists of a piece of skin with underlying tissue measuring 6 x 2 x 1 cm. The skin surface shows a focal area of ulceration. Mill Oiler sections are submitted in one cassette. / LUBA:clare 06/18/18 TC:2 CPT: 61098 x6, 14568 x3
[2018-06-17 03:05] LABS: Absolute Lymphocyte Count 0.34 X10^3/ul (0.83-4.51); Absolute Neutrophil Count 3.4 X10^3/uL (2.0-7.7); Basophil# 0.01 X10^3/uL; Basophil% 0.3 % (0-1); Eosinophil# 0.01 X10^3/uL; Eosinophils% 0.3 % (0-5); Hematocrit 29.4 % (37-47); Hemoglobin 9.6 g/dl (12.0-15.0); Lymphocyte # 0.34 X10^3/ul (4.0); Lymphocyte % 8.7 % (19-41); Mean Corp Hgb Conc 32.7 g/gl (32-36); Mean Corpuscular Hgb 27.6 pg (27.0-32.0); Mean Corpuscular Volume 84.5 fL (81-99); Mean Platelet Vol. 9.5 fl (6.2-12.0); Monocyte# 0.07 X10^3/uL; Monocyte% 1.8 % (0-10); Neutrophil # 3.41 X10^3/uL (2.7-7.7); Neutrophil % 87.6 % (47-70); Platelet Count 77 K/mm3 (150-450); RBC Distribution Width CV 19.6 % (11.6-14.6); RBC Distribution Width SD 59.1 fl (35.1-43.9); Red Blood Count 3.48 M/mm3 (4.2-5.4); White Blood Count 3.9 K/mm3 (4.4-11.0)
[2018-06-17 03:06] LABS: Differential Indicated SCAN CRITERIA MET; POSITIVE COUNT NO; POSITIVE DIFFERENTIAL YES; POSITIVE MORPHOLOGY YES
[2018-06-17 03:19] LABS: Anion Gap 9 (5-15); BUN 18 mg/dL (7-18); Calcium,Total 7.9 mg/dL (8.5-10.1); Chloride 106 mmol/L (98-107); Creatinine, Serum 0.41 mg/dL (0.55-1.02); EST Glomerular Filtration Rate 164 mL/min (>60); Est Glom Filt Rate - Afr Amer 198 mL/min (>60); Estimated Creatinine Clearance 41.99 ml/min; Glucose 222 mg/dL (74-106); Potassium 3.3 mmol/L (3.5-5.1); Sodium Level 139 mmol/L (136-145)
[2018-06-17 03:23] LABS: Lactic Acid 3.2 mmol/L (0.4-2.0)
[2018-06-17] MEDS: 0.9% Normal Saline 1,000 ML 125 ML IV ×2 (04:50→15:51)
--- NOTE | 2018-06-17 05:55 | EKG12_ITS ---
Test Reason : AM EKG Blood Pressure : / mmHG Vent. Rate : 110 BPM Atrial Rate : 110 BPM P-R Int : 136 ms QRS Dur : 084 ms QT Int : 334 ms P-R-T Axes : 058 038 041 degrees QTc Int : 452 ms Sinus tachycardia Otherwise normal ECG When compared with ECG of 16-JUN-2018 14:16, MANUAL COMPARISON REQUIRED, DATA IS UNCONFIRMED Confirmed by EMY CHANEL, [place] ([id number]), editor trade journal ELDA RUSSELL ([id number]) on 06/21/2018 2:44:14 PM Referred By: Sari Frost Confirmed By:NJ QUEVEDO MD
[2018-06-17 06:55] LABS: Reflex Lactate? Y
[2018-06-17 07:00] LABS: Bedside Glucose 185 mg/dL (70-110)
--- NOTE | 2018-06-17 08:00 | CON.PCM_ITS ---
Problem List (1) Chronic osteomyelitis of left pelvic region Status: Chronic (2) Skin necrosis Status: Acute (3) Stage IV pressure ulcer of sacral region Status: Acute Comment: with infected necrosis (4) Right ischial pressure sore, stage 4 Status: Chronic (5) Infected decubitus ulcer Status: Acute Qualifiers: Pressure injury stage: unspecified pressure injury stage Qualified Code(s): L89.90 - Pressure ulcer of unspecified site, unspecified stage; L08.9 - Local infection of the skin and subcutaneous tissue, unspecified (6) Olecranon bursitis of right elbow Status: Acute (7) Severe sepsis Status: Acute (8) Open wound of left thigh Status: Chronic Qualifiers: Encounter type: subsequent encounter Comment: traumatic skin tear posterior thigh Reason for Consult Date of Consultation: 06/17/18 History of Present Illness: The patient is a 68 year old F who is suffering from chronic osteomyelitis of her sacrum and ischium who began having swelling and redness over her right elbow over the past 3 days she does have history of gout diabetes. No injury to the elbow she has never had gout in the elbow before. She does not complain of significant pain with elbow range of motion is also been areas of erythema on the dorsal ulnar side of her wrist. Past Medical History Past Medical History (Chronic Problems): Chronic Problems (Last Reviewed 03/24/18 @ 13:10 by Jennifer Bee) Chronic osteomyelitis of left pelvic region (Chronic) Right ischial pressure sore, stage 4 (Chronic) Open wound of left thigh (Chronic) traumatic skin tear posterior thigh Incompetent urethral closure mechanism (Chronic) Neurogenic bladder (Chronic) Stage II pressure ulcer (Chronic) Chronic suprapubic catheter (Chronic) Diabetes mellitus type 2 in nonobese (Chronic) Hypertension (Chronic) Gout (Chronic) with arthropathy Pressure ulcer of left buttock, stage 3 (Chronic) left lower buttock/upper thigh area Diabetes mellitus (Chronic) Pressure ulcer of right buttock, stage 3 (Chronic) Diabetic neuropathy, type II diabetes mellitus (Chronic) Malnutrition (Chronic) Back pain (Chronic) Arthritis (Chronic) 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 significance to followup Anemia of chronic disease (Chronic) Physical deconditioning (Chronic) Dupuytren's contracture of right hand (Chronic) Spinal stenosis (Chronic) Hyperlipidemia (Chronic) RP (rectal prolapse) (Chronic) Medical History: Medical History (Last Reviewed 03/24/18 @ 13:10 by Jennifer Bee) Open wound of left thigh (Chronic) S71.102A traumatic skin tear posterior thigh Incompetent urethral closure mechanism (Chronic) N36.8 Neurogenic bladder (Chronic) N31.9 Stage II pressure ulcer (Chronic) L89.92 Complicated urinary tract infection (Acute) N39.0 Hematuria (Acute) R31.9 Diabetes mellitus type 2 in nonobese (Chronic) E11.9 Hypertension (Chronic) I10 Gout (Chronic) M10.9 with arthropathy Pressure ulcer of left buttock, stage 3 (Chronic) L89.323 left lower buttock/upper thigh area Pressure ulcer of left buttock, stage 2 (Resolved) L89.322 Diabetes mellitus (Chronic) E11.9 Pressure ulcer of right buttock, stage 3 (Chronic) L89.313 Diabetic neuropathy, type II diabetes mellitus (Chronic) E11.40 Malnutrition (Chronic) E46 Back pain (Chronic) M54.9 Arthritis (Chronic) M19.90 chronic osteomyelitis left ischial area (Chronic) Pressure sore of left ischium, stage 4 (Chronic) L89.324 Lytic bone lesion of right femur (Chronic) M89.8X5 and right humerus ? significance to followup Anemia of chronic disease (Chronic) D63.8 Physical deconditioning (Chronic) R53.81 Dupuytren's contracture of right hand (Chronic) M72.0 Spinal stenosis (Chronic) M48.00 Hyperlipidemia (Chronic) E78.5 RP (rectal prolapse) (Chronic) K62.3 Allergies No Known Allergies Allergy (Verified 06/16/18 13:35) Home Medications: Ambulatory Orders Medication Instructions Recorded Allopurinol [Zyloprim] 200 mg PO DAILY 07/05/14 Multivitamins,Therapeutic 1 tab PO DAILY 07/05/14 [Multivitamin] Timolol Maleate [Timoptic-XE 0.5%] 1 drp EACH EYE DAILY 07/05/14 Ascorbic Acid [Vitamin C] 500 mg PO DAILY@0800 09/09/17 Metformin HCl [Glucophage] 1,000 mg PO BID 02/26/18 Atorvastatin Calcium [Lipitor] 10 mg PO QHS 02/27/19 Ciprofloxacin [Cipro] 500 mg PO BID 06/16/18 Dexamethasone [Decadron] 4 mg PO BIDCM 06/16/18 Gabapentin [Neurontin] 100 mg PO TID 06/16/18 Lactobacillus Acidophilus 1 cap PO DAILY 06/16/18 [Acidophilus] Linagliptin [Tradjenta] 5 mg PO DAILY 06/16/18 Oxycodone HCl/Acetaminophen 1 tab PO Q4H PRN PRN 06/16/18 [Oxycodone-Acetaminophen 5-325] Polyethylene Glycol 3350 [Miralax] 17 gm PO DAILY 06/16/18 Surgical History: Surgical History (Last Reviewed 03/24/18 @ 13:10 by Jennifer Bee) Chronic suprapubic catheter (Chronic) Z93.[address] (Chronic) Z93.3 Previous back surgery Z98.890 Surgical History: - - Surgery for rectal prolapse with anterior resection and rectopexy at [facility] in 2008 and back surgery 1979. Colostomy was November 2012. Excision left ischial pressure sore with partial ostectomy for osteomyelitis and excision right ischial pressure sore and excision left lateral ankle pressure sore with partial ostectomy for osteomyelitis in 08/01. Psychiatric History: No pertinent psych hx [employer] History: No pertinent [employer] history Lives: [facility] Smoking Status: Never smoker Tobacco Use: Non-smoker Alcohol: None Drugs: None - *Family History Maternal History Items: Diabetes, Hypertension Paternal History Items: Diabetes, Hypertension Patient Problems: Active and Suspected Problems (Last Reviewed 03/24/18 @ 13:10 by Jennifer Bee) Skin necrosis (Acute) Stage IV pressure ulcer of sacral region (Acute) with infected necrosis Infected decubitus ulcer (Acute) Olecranon bursitis of right elbow (Acute) Severe sepsis (Acute) - Physical Exam General: Alert, Oriented x3 Extremities: - - Right elbow full elbow flexion lacking 45 degrees of elbow extension which is unchanged for her baseline 80 degrees of supination and 60 degrees of pronation. No pain with elbow range of motion she does have erythema on the posterior side near the olecranon about 7 cm in diameter there is fluctuance to the olecranon bursa there is an area of erythema on the dorsal ulnar side of her wrist measuring 5 x 2 cm no fluctuance. Her compartments are soft and compressible she has no gross motor or sensory deficits to the extremity brisk capillary refill. No crepitation Vital Signs Temp Pulse Resp BP Pulse Ox 97.9 F 113 H 19 H 123/70 H 94 06/17/18 04:51 06/17/18 04:51 06/17/18 04:51 06/17/18 04:51 06/17/18 04:51 Oxygen Delivery Method Room Air Weight: 151 lb 12.789 oz Body Mass Index (BMI) 27.9 Finger Stick Blood Glucose 109 Intake and Output for Last 24 Hours 06/15/18 06/16/18 06/17/18 23:59 23:59 23:59 Intake Total 1483.1 / 1483.1 975 / 975 Output Total 675 / 675 330 / 330 Balance 808.1 / 808.1 645 / 645 Microbiology Past 72 Hours 06/16/18 14:17 Blood Culture - Preliminary Blood Culture (Wb) - Anticubital Left Laboratory Tests Past 24 Hrs 06/16/18 06/16/18 06/16/18 14:17 14:17 14:17 WBC 5.0 RBC 4.16 L Hgb 11.4 L Hct 35.6 L MCV 85.6 MCH 27.4 MCHC 32.0 RDW 19.7 H RDW Differential 61.6 H Plt Count 99 L MPV 9.1 Immature Gran % (Auto) 1.000 H Neut % (Auto) 89.0 H Lymph % (Auto) 7.0 L Iron % (Auto) 2.8 Eos % (Auto) 0.0 Baso % (Auto) 0.2 Absolute Neuts (auto) 4.5 Absolute Lymphs (auto) 0.35 L Total Counted Not Reportable Differential Comment COMMENT Sodium 135 L Potassium 4.0 Chloride 101 Carbon Dioxide 21.0 Anion Gap 13 BUN 30 H Creatinine 0.72 Estim Creat Clear Calc 41.99 Est GFR (MDRD) Af Amer 103 Est GFR (MDRD) Non-Af 85 BUN/Creatinine Ratio 41.6 H Glucose 531 H* Hemoglobin A1c Lactic Acid 5.8 H* Calcium 8.6 Magnesium Troponin I < 0.015 06/16/18 06/16/18 06/16/18 14:17 14:17 20:38 WBC RBC Hgb Hct MCV MCH MCHC RDW RDW Differential Plt Count MPV Immature Gran % (Auto) Neut % (Auto) Lymph % (Auto) Iron % (Auto) Eos % (Auto) Baso % (Auto) Absolute Neuts (auto) Absolute Lymphs (auto) Total Counted Differential Comment Sodium Potassium Chloride Carbon Dioxide Anion Gap BUN Creatinine Estim Creat Clear Calc Est GFR (MDRD) Af Amer Est GFR (MDRD) Non-Af BUN/Creatinine Ratio Glucose Hemoglobin A1c 10.3 H Lactic Acid 5.7 H* Calcium Magnesium 1.8 Troponin I 06/17/18 06/17/18 06/17/18 02:40 02:40 02:40 WBC 3.9 L RBC 3.48 L Hgb 9.6 L Hct 29.4 L MCV 84.5 MCH 27.6 MCHC 32.7 RDW 19.6 H RDW Differential 59.1 H Plt Count 77 L MPV 9.5 Immature Gran % (Auto) 1.300 H Neut % (Auto) 87.6 H Lymph % (Auto) 8.7 L Iron % (Auto) 1.8 Eos % (Auto) 0.3 Baso % (Auto) 0.3 Absolute Neuts (auto) 3.4 Absolute Lymphs (auto) 0.34 L Total Counted Not Reportable Differential Comment Sodium 139 Potassium 3.3 L Chloride 106 Carbon Dioxide 24.0 Anion Gap 9 BUN 18 Creatinine 0.41 L Estim Creat Clear Calc 41.99 Est GFR (MDRD) Af Amer 198 Est GFR (MDRD) Non-Af 164 BUN/Creatinine Ratio 44.0 H Glucose 222 H Hemoglobin A1c Lactic Acid 3.2 H Calcium 7.9 L Magnesium Troponin I 06/17/18 07:20 WBC RBC Hgb Hct MCV MCH MCHC RDW RDW Differential Plt Count MPV Immature Gran % (Auto) Neut % (Auto) Lymph % (Auto) Iron % (Auto) Eos % (Auto) Baso % (Auto) Absolute Neuts (auto) Absolute Lymphs (auto) Total Counted Differential Comment Sodium Potassium Chloride Carbon Dioxide Anion Gap BUN Creatinine Estim Creat Clear Calc Est GFR (MDRD) Af Amer Est GFR (MDRD) Non-Af BUN/Creatinine Ratio Glucose Hemoglobin A1c Lactic Acid Pending Calcium Magnesium Troponin I POC Glucose 06/17/18 06/16/18 06/16/18 06:50 22:52 20:31 POC Glucose 185 H 321 H 368 H 06/16/18 17:09 POC Glucose 400 H Assessment/Plan All Active Problems (Last Reviewed 03/24/18 @ 13:10 by Jennifer Bee) Skin necrosis (Acute) Stage IV pressure ulcer of sacral region (Acute) Infected decubitus ulcer (Acute) Olecranon bursitis of right elbow (Acute) Severe sepsis (Acute) Complicated urinary tract infection (Acute) Hematuria (Acute) Pressure ulcer of left buttock, stage 2 (Resolved) Informed consent was obtained in the right olecranon bursa was aspirated with 3- 1/2 cc of purulent cloudy material. This was sent for culture and crystal analysis however it is obviously infected and will plan to proceed with open irrigation and debridement. She is already scheduled to have sacral ulcer debridement by Dr. delaney I did discuss this with him and we will plan to proceed together today so she does not have to undergo anesthesia twice. Informed consent for this was obtained. She will need antibiotics and likely infectious disease consultation postoperatively.
[2018-06-17] MEDS: Potassium Chloride 10mEq/100mL 10 MEQ/100 ML IV.SOLN. 100 MEQ IV BOLUS ×2 (08:25→09:38)
--- NOTE | 2018-06-17 08:47 | CASEMGMT ---
ALEX spoke with patient. Confirmed her plans are to return to [place] when ready. ALEX also asked her about her wanting SW to discuss advance directives. She said someone answered her question. ALEX confirmed her sister in law Jay is her POA and her alternate is her niece, Maru Mayorga. SW to follow for d/c back to [place] when ready. Ofelia GARCIA MSW
[2018-06-17 09:15] LABS: Source- Body Fluid SYNOVIAL
[2018-06-17 09:16] LABS: Body Fluid QC Type(s) BF1Q
[2018-06-17 10:56] LABS: Bedside Glucose 152 mg/dL (70-110)
[2018-06-17 10:58] LABS: Bacteria 0 SEEN /hpf (None Seen); Mucous, Urine 0 SEEN /hpf (<or=2+)
--- NOTE | 2018-06-17 11:02 | NURSING ---
Report called to surgery at this time - spoke with francis
[2018-06-17 11:04] LABS: Color, Urine Yellow (Yellow); Glucose, Dipstick 100 mg/dl (Normal); Ketone-Dipstick Negative (Negative); Leukocyte Esterase-Dipstick 100 /ul (Negative); Nitrite-Dipstick Negative (Negative); Occult Blood-Urine 150 /ul (Negative); Protein-Dipstick 30 mg/dl (Negative); Urine Bilirubin Dipstick Negative (Negative); Urine Clarity Sl. Cloudy (Clear); Urine Urobilinogen Normal (Normal)
[2018-06-17 11:12] LABS: Red Blood Cells-Urine 10-25 SEEN /hpf (0-5); Squamous Epithelial Cells - UA 0-5 SEEN /hpf (5-10); White Blood Cells 10-25 SEEN /hpf (0-5)
--- NOTE | 2018-06-17 12:22 | CASEMGMT ---
ALEX called [facility] and spoke with Vandana. She said patient is fine to come back whenever she is ready. Ofelia GARCIA MSW
--- NOTE | 2018-06-17 13:13 | PN_ITS ---
<Brittany Parker - Last Filed: 06/17/18 13:34> Patient Problems: Active and Suspected Problems (Last Reviewed 03/24/18 @ 13:10 by Jennifer Bee) Skin necrosis (Acute) Stage IV pressure ulcer of sacral region (Acute) with infected necrosis Infected decubitus ulcer (Acute) Olecranon bursitis of right elbow (Acute) Severe sepsis (Acute) Subjective: Patient seen and examined. To undergo surgery for wound debridement later today. No acute events overnight. Denies pain. Denies fever, chills. Patient wishes to switch her CODE STATUS from DNR CC to full code. She is agreeable to chest compressions in the event of resuscitation however she does not want to be on long-term mechanical ventilation. - Physical Exam General: Alert, Oriented x3, Cooperative, No apparent distress HEENT: Atraumatic, PERRLA, EOMI, Normocephalic Oral: Dry Mucosa Neck: Supple, No JVD, Negative Carotid Bruits Lungs: Clear to auscultation, Diminished Cardiovascular: Regular rate, No murmurs Abdomen: Bowel Sounds Present, Soft, Non Tender, Non-Distended, Obese Extremities: No clubbing, No cyanosis, No edema, Capillary Refill Less than 3 Seconds Skin: - - Bilateral stage III-IV if she will decubitus ulcers, right elbow erythema-status post aspiration. Musculoskeletal: No Tenderness to Palpation of Joints or Extremities Neurological: Cranial nerves II-XII grossly intact, Neuro grossly intact Psych/Mental Status: Normal Affect, Appropriate Vital Signs Temp Pulse Resp BP Pulse Ox 98.7 F 111 H 16 135/72 H 99 06/17/18 10:32 06/17/18 10:32 06/17/18 10:32 06/17/18 10:32 06/17/18 10:32 Oxygen Delivery Method Room Air Weight: 151 lb 12.789 oz Body Mass Index (BMI) 27.9 Finger Stick Blood Glucose 109 Intake and Output for Last 24 Hours 06/15/18 06/16/18 06/17/18 23:59 23:59 23:59 Intake Total 1483.1 / 1483.1 975 / 975 Output Total 675 / 675 330 / 330 Balance 808.1 / 808.1 645 / 645 Microbiology Past 72 Hours 06/17/18 07:35 Gram Stain - Final Fluid - Synovial (joint) 06/16/18 14:17 Blood Culture - Preliminary Blood Culture (Wb) - Anticubital Left Laboratory Tests Past 24 Hrs 06/16/18 06/16/18 06/16/18 14:17 14:17 14:17 WBC 5.0 RBC 4.16 L Hgb 11.4 L Hct 35.6 L MCV 85.6 MCH 27.4 MCHC 32.0 RDW 19.7 H RDW Differential 61.6 H Plt Count 99 L MPV 9.1 Immature Gran % (Auto) 1.000 H Neut % (Auto) 89.0 H Lymph % (Auto) 7.0 L [place] % (Auto) 2.8 Eos % (Auto) 0.0 Baso % (Auto) 0.2 Absolute Neuts (auto) 4.5 Absolute Lymphs (auto) 0.35 L Total Counted Not Reportable Differential Comment COMMENT Sodium 135 L Potassium 4.0 Chloride 101 Carbon Dioxide 21.0 Anion Gap 13 BUN 30 H Creatinine 0.72 Estim Creat Clear Calc 41.99 Est GFR (MDRD) Af Amer 103 Est GFR (MDRD) Non-Af 85 BUN/Creatinine Ratio 41.6 H Glucose 531 H* Hemoglobin A1c Lactic Acid 5.8 H* Calcium 8.6 Magnesium Troponin I < 0.015 Urine Color Urine Clarity Urine pH Ur Specific Joes Urine Protein Urine Glucose (UA) Urine Ketones Urine Occult Blood Urine Nitrite Urine Bilirubin Urine Urobilinogen Ur Leukocyte Esterase Urine RBC Urine WBC Ur Squamous Epith Cells Urine Bacteria Urine Mucus Fluid Crystals Fluid Crystal Source Fl Crystal Path Review 06/16/18 06/16/18 06/16/18 14:17 14:17 20:38 WBC RBC Hgb Hct MCV MCH MCHC RDW RDW Differential Plt Count MPV Immature Gran % (Auto) Neut % (Auto) Lymph % (Auto) [place] % (Auto) Eos % (Auto) Baso % (Auto) Absolute Neuts (auto) Absolute Lymphs (auto) Total Counted Differential Comment Sodium Potassium Chloride Carbon Dioxide Anion Gap BUN Creatinine Estim Creat Clear Calc Est GFR (MDRD) Af Amer Est GFR (MDRD) Non-Af BUN/Creatinine Ratio Glucose Hemoglobin A1c 10.3 H Lactic Acid 5.7 H* Calcium Magnesium 1.8 Troponin I Urine Color Urine Clarity Urine pH Ur Specific Joes Urine Protein Urine Glucose (UA) Urine Ketones Urine Occult Blood Urine Nitrite Urine Bilirubin Urine Urobilinogen Ur Leukocyte Esterase Urine RBC Urine WBC Ur Squamous Epith Cells Urine Bacteria Urine Mucus Fluid Crystals Fluid Crystal Source Vt Crystal Path Review 06/17/18 06/17/18 06/17/18 02:40 02:40 02:40 WBC 3.9 L RBC 3.48 L Hgb 9.6 L Hct 29.4 L MCV 84.5 MCH 27.6 MCHC 32.7 RDW 19.6 H RDW Differential 59.1 H Plt Count 77 L MPV 9.5 Immature Gran % (Auto) 1.300 H Neut % (Auto) 87.6 H Lymph % (Auto) 8.7 L [place] % (Auto) 1.8 Eos % (Auto) 0.3 Baso % (Auto) 0.3 Absolute Neuts (auto) 3.4 Absolute Lymphs (auto) 0.34 L Total Counted Not Reportable Differential Comment Sodium 139 Potassium 3.3 L Chloride 106 Carbon Dioxide 24.0 Anion Gap 9 BUN 18 Creatinine 0.41 L Estim Creat Clear Calc 41.99 Est GFR (MDRD) Af Amer 198 Est GFR (MDRD) Non-Af 164 BUN/Creatinine Ratio 44.0 H Glucose 222 H Hemoglobin A1c Lactic Acid 3.2 H Calcium 7.9 L Magnesium Troponin I Urine Color Urine Clarity Urine pH Ur Specific Joes Urine Protein Urine Glucose (UA) Urine Ketones Urine Occult Blood Urine Nitrite Urine Bilirubin Urine Urobilinogen Ur Leukocyte Esterase Urine RBC Urine WBC Ur Squamous Epith Cells Urine Bacteria Urine Mucus Fluid Crystals Fluid Crystal Source Vt Crystal Path Review 06/17/18 06/17/18 06/17/18 05:15 07:20 07:35 WBC RBC Hgb Hct MCV MCH MCHC RDW RDW Differential Plt Count MPV Immature Gran % (Auto) Neut % (Auto) Lymph % (Auto) [place] % (Auto) Eos % (Auto) Baso % (Auto) Absolute Neuts (auto) Absolute Lymphs (auto) Total Counted Differential Comment Sodium Potassium Chloride Carbon Dioxide Anion Gap BUN Creatinine Estim Creat Clear Calc Est GFR (MDRD) Af Amer Est GFR (MDRD) Non-Af BUN/Creatinine Ratio Glucose Hemoglobin A1c Lactic Acid 2.0 Calcium Magnesium Troponin I Urine Color Yellow Urine Clarity Sl. Cloudy Urine pH 8.0 Ur Specific Joes 1.010 Urine Protein 30 H Urine Glucose (UA) 100 H Urine Ketones Negative Urine Occult Blood 150 H Urine Nitrite Negative Urine Bilirubin Negative Urine Urobilinogen Normal Ur Leukocyte Esterase 100 H Urine RBC 10-25 SEEN Urine WBC 10-25 SEEN Ur Squamous Epith Cells 0-5 SEEN Urine Bacteria 0 SEEN Urine Mucus 0 SEEN Fluid Crystals SEE PATH REV Fluid Crystal Source SYNOVIAL Fl Crystal Path Review Will follow POC Glucose 06/17/18 06/17/18 06/16/18 10:43 06:50 22:52 POC Glucose 152 H 185 H 321 H 06/16/18 06/16/18 20:31 17:09 POC Glucose 368 H 400 H Medical Necessity - Tobacco Use Smoking Status: Never smoker Tobacco Use: Non-smoker Assessment/Plan All Active Problems (Last Reviewed 03/24/18 @ 13:10 by Jennifer Bee) Skin necrosis (Acute) Stage IV pressure ulcer of sacral region (Acute) Infected decubitus ulcer (Acute) Olecranon bursitis of right elbow (Acute) Severe sepsis (Acute) Complicated urinary tract infection (Acute) Hematuria (Acute) Pressure ulcer of left buttock, stage 2 (Resolved) 1. Severe sepsis secondary to infected decubitus ulcer of the sacrum as well as olecranon bursitis-lactic acid 5.7 on admission, resolved. Continue to treat infectious processes. Blood cultures pending. 2. Infected/necrotic decubitus sacral ulcer-history of multiple chronic wounds including stable chronic bilateral ischial ulcers stage IV with chronic osteomyelitis left ischial area. Dr. Myles consulted, to undergo wound debridement of coccyx ulcer today. Wound RN consult. Continue IV vancomycin and IV Zosyn. 3. Olecranon bursitis-IV vancomycin and IV Zosyn as noted above. Dr. Aquino consulted. MRI shows olecranon bursitis with fluid collection. Possible abscess. Bursa was aspirated and culture sent. Patient to undergo debridement of this area during debridement of sacral ulcer today. 4. Type 2 diabetes [id number] ACHS with sliding scale insulin. 5. Hypertension-continue home losartan regimen. 6. Hyperlipidemia-continue statin. 7. Spinal stenosis and peripheral neuropathy with neurogenic bladder, paraplegia-chronic Rea catheter. PT/OT. Resides at SNF. 8. Anemia of chronic disease-stable, trend CBC. DVT prophylaxis-Lovenox subcu CODE STATUS: Patient's wish to change her CODE STATUS from DNR CCA to full code. She reports she is agreeable to chest compressions but does not want to long- term mechanical ventilation. This patient was seen by AVELINO Fuchs under the supervision of Dr. Gray. <Farhad Gray - Last Filed: 06/18/18 07:22> Subjective: The patient was taken for surgery. He had wide excision of sacrococcygeal and ischial stage IV pressure ulcer - Physical Exam General: Alert, Oriented x3, Cooperative, No apparent distress HEENT: Atraumatic, PERRLA, EOMI, Normocephalic Oral: Dry Mucosa Neck: Supple, No JVD, Negative Carotid Bruits Lungs: Clear to auscultation, No rhonchi, No wheeze, Diminished - Air entry diminished in bilateral lung bases. Kyphosis. Cardiovascular: Regular rate, Regular Rhythm, Normal S1, Normal S2 Abdomen: Bowel Sounds Present, Soft, Non Tender, Non-Distended, Obese Extremities: No cyanosis, No edema Musculoskeletal: Arthritic Changes, Muscle Wasting, - - Diffuse muscle atrophy of thigh muscles and extremities. Contracture present of lower extremities Neurological: - - Weakness of lower extremities. Generalized atrophy of extremity muscles Vital Signs Temp Pulse Resp BP Pulse Ox 99.2 F H 93 19 H 84/46 L 98 06/18/18 07:00 06/18/18 07:00 06/18/18 07:00 06/18/18 07:00 06/18/18 07:00 Oxygen Flow Rate (L/min) 2 Oxygen Delivery Method Nasal Cannula Weight: 151 lb 12.789 oz Body Mass Index (BMI) 27.9 Finger Stick Blood Glucose 154 Intake and Output for Last 24 Hours 06/16/18 06/17/18 06/18/18 23:59 23:59 23:59 Intake Total 1483.1 / 1483.1 6084.4 / 6084.4 835 / 835 Output Total 675 / 675 1840 / 1840 290 / 290 Balance 808.1 / 808.1 4244.4 / 4244.4 545 / 545 Microbiology Past 72 Hours 06/17/18 13:32 Gram Stain - Final Aspirate - Wrist 06/17/18 07:35 Gram Stain - Final Fluid - Synovial (joint) 06/16/18 14:17 Blood Culture - Preliminary Blood Culture (Wb) - Anticubital Left Laboratory Tests Past 24 Hrs 06/17/18 06/17/18 06/17/18 05:15 07:20 07:35 Lactic Acid 2.0 Troponin I Urine Color Yellow Urine Clarity Sl. Cloudy Urine pH 8.0 Ur Specific Joes 1.010 Urine Protein 30 H Urine Glucose (UA) 100 H Urine Ketones Negative Urine Occult Blood 150 H Urine Nitrite Negative Urine Bilirubin Negative Urine Urobilinogen Normal Ur Leukocyte Esterase 100 H Urine RBC 10-25 SEEN Urine WBC 10-25 SEEN Ur Squamous Epith Cells 0-5 SEEN Urine Bacteria 0 SEEN Urine Mucus 0 SEEN Fluid Crystals SEE PATH REV Fluid Crystal Source SYNOVIAL Fl Crystal Path Review Will follow Blood Type Antibody Screen Crossmatch 06/17/18 06/18/18 06/18/18 13:00 02:35 04:56 Lactic Acid Troponin I < 0.015 0.015 Urine Color Urine Clarity Urine pH Ur Specific Joes Urine Protein Urine Glucose (UA) Urine Ketones Urine Occult Blood Urine Nitrite Urine Bilirubin Urine Urobilinogen Ur Leukocyte Esterase Urine RBC Urine WBC Ur Squamous Epith Cells Urine Bacteria Urine Mucus Fluid Crystals Fluid Crystal Source Fl Crystal Path Review Blood Type B POSITIVE Antibody Screen NEGATIVE Crossmatch See Detail POC Glucose 06/17/18 06/17/18 06/17/18 21:37 14:35 10:43 POC Glucose 163 H 153 H 152 H Assessment/Plan This patient was seen in conjunction with DETECTIVE LIEUTENANTBrittany. I have independently interviewed and examined the patient and reviewed pertinent history, examination findings, laboratory and plan of management. I have reviewed the note and agree with the documented findings with the few additional points. In brief, patient is admitted for severe sepsis secondary to infected decubitus ulcer of sacrum, chronic B/L ischial ulcers stage IV. patient has Right septic bursitis of the elbow and right wrist abscess which required open irrigation and debridement of right elbow bursa and drainage of subcutaneous abscess of right wrist by Dr. Garza Patient is on broad-spectrum IV antibiotic vancomycin and Zosyn. Dr. Myles and Dr. Garza consult appreciated. Patient had a wide excision of decubitus ulcer as mentioned above. The patient has other multiple comorbidities including neurogenic bladder with chronic suprapubic catheter, rectal prolapse with colostomy, diabetes mellitus type 2 with diabetic neuropathy, chronic osteitis of left ischial area, spinal stenosis and anemia of chronic disease I have discussed my assessment with DETECTIVE LIEUTENANTBrittany and orders have been reviewed. Code Visit Inpatient E&M: 39216 Subs Hosp L3
--- NOTE | 2018-06-17 13:19 | PCM.OPRPT ---
Problem List (1) Chronic osteomyelitis of left pelvic region Status: Chronic (2) Skin necrosis Status: Acute (3) Stage IV pressure ulcer of sacral region Status: Acute Comment: with infected necrosis (4) Right ischial pressure sore, stage 4 Status: Chronic (5) Infected decubitus ulcer Status: Acute Qualifiers: Pressure injury stage: unspecified pressure injury stage Qualified Code(s): L89.90 - Pressure ulcer of unspecified site, unspecified stage; L08.9 - Local infection of the skin and subcutaneous tissue, unspecified (6) Olecranon bursitis of right elbow Status: Acute (7) Severe sepsis Status: Acute (8) Open wound of left thigh Status: Chronic Qualifiers: Encounter type: subsequent encounter Comment: traumatic skin tear posterior thigh Report of Operation Date of Procedure: 06/17/18 Description of Surgical Findings:: Preoperative diagnosis: Right septic bursitis of the elbow and right wrist abscess Postoperative diagnosis: Same Procedure: Open irrigation and debridement of right elbow bursa and subcutaneous abscess of wrist Anesthesia: General EBL: 10 Complications: None Indication for procedure: This is a 68-year-old diabetic female patient with chronic sacral and ischial ulcerations and osteomyelitis who developed increased redness and swelling of her right elbow and wrist over the past 3 days there was no injury. She did have an aspiration of her olecranon bursa which was yasmin pus she was on the schedule for [place] of her sacrum and ischium by Dr. cordero. We did coordinate care so that we could perform both under the same anesthesia there was a abscess at the wrist as well on the dorsal ulnar side. Discussed with patient risk benefits and alternatives were reviewed including risk of bleeding infection nerve, artery, bone, tissue damage, blood clot need for further surgery and continued pain. Procedure: Patient was met in the preoperative holding area once again the operative extremity stream but he was identified and marked by the physician and patient was met by anesthesia brought back to the operating room anesthesia was started she was then positioned prone with padded rolls for her sacral positioning with the use of an arm board on the right side I was able to perform my portion of the procedure. A tourniquet was placed on the right upper extremity she was prepped and draped in the usual sterile fashion timeout was called to ensure the proper patient procedure and extremity being contemplated at this point an aspiration of the subcutaneous abscess of the wrist was performed and sent for culture yasmin purulence. there was already cultures taken this morning of the olecranon bursa under sterile techniques so no further cultures were taken. A curvilinear incision was made over the olecranon process immediately there was subcutaneous abscess noted this was thoroughly evacuated and debrided with a rongeur and sharp dissection of the bursa all by several liters of irrigation with a Pulsavac external relations manager. Attention was then turned to the wrist and a 2 inch incision was made over the subcutaneous abscess thorough irrigation of the purulent tissue was performed with debridement did I and was inserted into both wounds and irrigated out completely closure was performed with 3-0 nylon vertical mattress stitches. 1% lidocaine with epinephrine was injected into both incisional areas. Dressing was applied in the form of Xeroform 4 x 4 ABD web roll and an Danny wrap from the wrist to the axilla. She will keep the dressing on for 72 hours and then begin cleaning daily. She will have antibiotics managed by infectious disease. She will need sutures out 2 weeks postoperatively. Type of Anesthesia:: General
--- NOTE | 2018-06-17 14:04 | PCM.OPRPT ---
Report of Operation Date of Procedure: 06/17/18 Pre-Operative Diagnosis: 1. Infected necrotic sacral pressure sore, probable Stage IV. 2. Bilateral ischial pressure sores, Stage IV. 3. Chronic osteomyelitis left ischial area. 4. Sepsis. 5. Diabetes mellitus. 6. History of UTI's. 7. Spinal stenosis. Post-Operative Diagnosis: Same. Surgery/Procedure Performed:: 1. Excision infected necrotic sacral pressure sore, Stage IV, with partial ostectomy for osteomyelitis. 2. Excision left ischial pressure sore, Stage IV, with partial ostectomy for osteomyelitis. 3. Excision right ischial pressure sore, Stage IV, with partial ostectomy for osteomyelitis. Description of Surgical Findings:: The patient is a 68 y/o F with a history of spinal stenosis and diabetes mellitus presented to the ED with sepsis with a lactate of 5.8. She has an infected necrotic sacral pressure sore as well as bilateral ischial pressures and a history of chronic osteomyelitis. She also has redness and edema around the right elbow. Also in the ED, her WBC was normal at 5. Her glucose was elevated at 531. She was started on broad spectrum IV antibiotics with Vancomycin and Zosyn. I was asked to evaluate this patient for surgical options for treatment. She complains of malaise, and fatigue, and chills. Orthopedic Surgery was consulted to evaluate the right elbow redness. Patient was informed of the risks and complications of the procedure including alternatives to surgery. These were discussed with the patient personally. Patient voices understanding and wishes to proceed. IV Fluids - 1200 ml. Urine Output - 600 ml. Size of defect sacral area - 9 x 7 x 3 cm. Size of defect left ischial area - 6 x 5 x 4 cm. Size of defect right ischial area - 8 x 7 x 4 cm. I used Leydi absorbable hemostat, (I used 2 vials for all 3 pressure sore ulcers). Reference Number - [id number]. Lot Number - [id number]. Expiration - January 15, 2023 (left ischial area). Reference Number - [id number]. Lot Number - [id number]. Expiration - March 17, 2023 (right ischial area and sacral area). log buyer: None Type of Anesthesia:: General Specimen's removed: 1. Infected necrotic sacral pressure sore, Stage IV, soft tissue to Pathology and Microbiology. 2. Infected necrotic sacral pressure sore, Stage IV, bone to Pathology and Microbiology. 3. Left ischial pressure sore, Stage IV, soft tissue to Pathology and Microbiology. 4. Left ischial pressure sore, Stage IV, bone to Pathology and Microbiology. 5. Right ischial pressure sore, Stage IV, soft tissue to Pathology and Microbiology. 6. Right ischial pressure sore, Stage IV, bone to Pathology and Microbiology. Drains: None. Estimated Blood Loss (mL): 350 ml. Fluids Replaced: 1800 ml (IV Fluids 1200 ml, Urine Output 600 ml). Description of Procedure: Patient was taken to OR in supine position and was placed under general anesthesia. She was then placed in the prone position. The sacral and ischial areas were prepped and draped in the usual fashion. SCD's were placed for DVT prophylaxis. Perioperative antibiotics were given intravenously. While I worked on excision of the pressure sores, Dr. Luther from Orthopedics addressed the right elbow and right wrist infections. That portion will be dictated separately. I started with the sacral pressure sore with its infected necrosis. Excision was carried down through the subcutaneous tissue and muscle until the bone was seen. The necrosis had extended to the bone. A partial ostectomy was performed using a rongeur. A rasp was used to smooth out the bony edges. Half the soft tissue and half the bone was sent to Pathology for analysis to rule out carcinoma and to evaluate for osteomyelitis. Half the soft tissue and half the bone was sent to Microbiology for culture. Hemostasis was obtained with electrocautery. The wound was irrigated with saline. I then excised the left ischial pressure sore and then the right ischial pressure sore. Excision was carried down through the subcutaneous tissue and muscle until the bone was seen. Partial ostectomy was then done using an osteotome and a mallet to evaluate for osteomyelitis. A rasp was used to smooth out the bony edges. Half the soft tissue and half the bone was sent to Pathology for analysis to rule out carcinoma and to evaluate for osteomyelitis. Half the soft tissue and half the bone was sent to Microbiology for culture. Hemostasis was obtained with electrocautery. The wounds were irrigated with saline. I then sprayed Leydi absorbable hemostat into the pressure sore ulcers to help with any residual oozing. The wounds were then packed with Mepitel nonadherent dressing followed by Kerlix gauze and Betadine followed by dry Kerlix gauze and ABD compression dressing. The size of the defect sacral area was 9 x 7 x 3 cm. The size of the defect left ischial area was 6 x 5 x 4 cm. The size of the defect right ischial area was 8 x 7 x 4 cm. There was a fair amount of blood loss during the surgery, about 350 ml. Her Hgb preop was 9.6. Will type and cross for PRBC in anticipation of transfusion during the postop period. Patient tolerated the procedure well and was sent to PACU in satisfactory condition. Patient will be sent upstairs for continued postop care. Grafts/Implants Used: None. - Complications None. - Admit VTE Documentation VTE Present on Admission: No VTE Mechan Device Prophylaxis: SCD's VTE Pharm Prophylaxis ordered?: Yes Code Visit Surgery Charges CPT - 49046 ICD-10 - L89.154, I96, M86.652, A41.9, E11.9, M48.00 [id number] L89.314, M86.652, A41.9, E11.9, M48.00 25562 L89.324, M86.652, A41.9, E11.9, M48.00
--- NOTE | 2018-06-17 14:10 | OP.PCM_ITS ---
Report of Operation Date of Procedure: 06/17/18 Pre-Operative Diagnosis: 1. Infected necrotic sacral pressure sore, probable Stage IV. 2. Bilateral ischial pressure sores, Stage IV. 3. Chronic osteomyelitis left ischial area. 4. Sepsis. 5. Diabetes mellitus. 6. History of UTI's. 7. Spinal stenosis. Post-Operative Diagnosis: Same. Surgery/Procedure Performed:: 1. Excision infected necrotic sacral pressure sore, Stage IV, with partial ostectomy for osteomyelitis. 2. Excision left ischial pressure sore, Stage IV, with partial ostectomy for osteomyelitis. 3. Excision right ischial pressure sore, Stage IV, with partial ostectomy for osteomyelitis. Description of Surgical Findings:: The patient is a 68 y/o F with a history of spinal stenosis and diabetes mellitus presented to the ED with sepsis with a lactate of 5.8. She has an infected necrotic sacral pressure sore as well as bilateral ischial pressures and a history of chronic osteomyelitis. She also has redness and edema around the right elbow. Also in the ED, her WBC was normal at 5. Her glucose was elevated at 531. She was started on broad spectrum IV antibiotics with Vancomycin and Zosyn. I was asked to evaluate this patient for surgical options for treatment. She complains of malaise, and fatigue, and chills. Orthopedic Surgery was consulted to evaluate the right elbow redness. Patient was informed of the risks and complications of the procedure including alternatives to surgery. These were discussed with the patient personally. Patient voices understanding and wishes to proceed. IV Fluids - 1200 ml. Urine Output - 600 ml. Size of defect sacral area - 9 x 7 x 3 cm. Size of defect left ischial area - 6 x 5 x 4 cm. Size of defect right ischial area - 8 x 7 x 4 cm. I used Leydi absorbable hemostat, (I used 2 vials for all 3 pressure sore ulcers). Reference Number - [id number]. Lot Number - [id number]. Expiration - January 15, 2023 (left ischial area). Reference Number - [id number]. Lot Number - [id number]. Expiration - March 17, 2023 (right ischial area and sacral area). 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 Infected necrotic sacral pressure sore, Stage IV, soft tissue to Pathology and Microbiology. 2. Infected necrotic sacral pressure sore, Stage IV, bone to Pathology and Microbiology. 3. Left ischial pressure sore, Stage IV, soft tissue to Pathology and Microbiology. 4. Left ischial pressure sore, Stage IV, bone to Pathology and Microbiology. 5. Right ischial pressure sore, Stage IV, soft tissue to Pathology and Microbiology. 6. Right ischial pressure sore, Stage IV, bone to Pathology and Microbiology. Drains: None. Estimated Blood Loss (mL): 350 ml. Fluids Replaced: 1800 ml (IV Fluids 1200 ml, Urine Output 600 ml). Description of Procedure: Patient was taken to OR in supine position and was placed under general anesthesia. She was then placed in the prone position. The sacral and ischial areas were prepped and draped in the usual fashion. SCD's were placed for DVT prophylaxis. Perioperative antibiotics were given intravenously. While I worked on excision of the pressure sores, Dr. Luther from Orthopedics addressed the right elbow and right wrist infections. That portion will be dictated separately. I started with the sacral pressure sore with its infected necrosis. Excision was carried down through the subcutaneous tissue and muscle until the bone was seen. The necrosis had extended to the bone. A partial ostectomy was performed using a rongeur. A rasp was used to smooth out the bony edges. Half the soft tissue and half the bone was sent to Pathology for analysis to rule out carcinoma and to evaluate for osteomyelitis. Half the soft tissue and half the bone was sent to Microbiology for culture. Hemostasis was obtained with electrocautery. The wound was irrigated with saline. I then excised the left ischial pressure sore and then the right ischial pressure sore. Excision was carried down through the subcutaneous tissue and muscle until the bone was seen. Partial ostectomy was then done using an osteotome and a mallet to evaluate for osteomyelitis. A rasp was used to smooth out the bony edges. Half the soft tissue and half the bone was sent to Pathology for analysis to rule out carcinoma and to evaluate for osteomyelitis. Half the soft tissue and half the bone was sent to Microbiology for culture. Hemostasis was obtained with electrocautery. The wounds were irrigated with saline. I then sprayed Leydi absorbable hemostat into the pressure sore ulcers to help with any residual oozing. The wounds were then packed with Mepitel nonadherent dressing followed by Kerlix gauze and Betadine followed by dry Kerlix gauze and ABD compression dressing. The size of the defect sacral area was 9 x 7 x 3 cm. The size of the defect left ischial area was 6 x 5 x 4 cm. The size of the defect right ischial area was 8 x 7 x 4 cm. There was a fair amount of blood loss during the surgery, about 350 ml. Her Hgb preop was 9.6. Will type and cross for PRBC in anticipation of transfusion during the postop period. Patient tolerated the procedure well and was sent to PACU in satisfactory condition. Patient will be sent upstairs for continued postop care. Grafts/Implants Used: None. - Complications None. - Admit VTE Documentation VTE Present on Admission: No VTE Mechan Device Prophylaxis: SCD's VTE Pharm Prophylaxis ordered?: Yes Code Visit Surgery Charges CPT - 57271 ICD-10 - L89.154, I96, M86.652, A41.9, E11.9, M48.00 [id number] L89.314, M86.652, A41.9, E11.9, M48.00 99285 L89.324, M86.652, A41.9, E11.9, M48.00
--- NOTE | 2018-06-17 14:38 | NURSING ---
Had been in earlier to see patient and she was already headed down for surgery. will follow patient post op. Had talked with Dr Myles and plan is for a wound VAC to be placed tomorrow.
[2018-06-17 14:46] LABS: Bedside Glucose 153 mg/dL (70-110)
--- NOTE | 2018-06-17 15:00 | SUR.PHASEI ---
bolus iv fliuid given for bp 73/51- dr ag
--- NOTE | 2018-06-17 16:06 | CHAPLAIN ---
patient was in surgery but this gas tender left a calling card in room to notify her of attempted visit
[2018-06-17] MEDS: METHENAMINE HIPPURATE 1 GM TABLET PO (21:42)
[2018-06-17] MEDS: Glucerna Shake 120 ML LIQUID PO (21:42)
[2018-06-17] MEDS: NYSTATIN 500,000 UNIT/5 ML UDC 500000 UNIT PO (21:43)
[2018-06-17] MEDS: Latanoprost 0.005% 1 Bottle 1 DRP EACH EYE (21:43)
[2018-06-17] MEDS: Atorvastatin Calcium 10 MG Tablet 5 MG PO (21:43)
[2018-06-17] MEDS: Insulin Lispro 100 UNIT/ML INSULN.PEN SC (21:43)
[2018-06-17] MEDS: Metoprolol Tartrate 25 MG Tablet 50 MG PO (22:00)
[2018-06-17 23:10] LABS: Bedside Glucose 163 mg/dL (70-110)
[2018-06-18] VITALS (20 sets, daily range): BP systolic 84–128; BP diastolic 40–70; PULSE 93–139; RESP 17–21; TEMP 36.7–37.9; O2SAT 94–100
[2018-06-18] MEDS: Metoprolol Tartrate 5 MG/5 ML Vial IV ×2 (01:02→17:25)
[2018-06-18] MEDS: 0.9% Normal Saline 1,000 ML 125 ML IV ×3 (02:33→21:17)
[2018-06-18] MEDS: HYDROcodone Bitartrate/Apap 5/325 Tablet PO ×2 (02:37→21:11)
--- NOTE | 2018-06-18 05:47 | NURSING ---
Last night pharmacy instructed this RN to wait to give the 2200 dose of Zosyn until 0000 d/t the 1400 dose being given late. The 2200 dose was put up at 0105. Pharmacy said to wait to give the 0600 dose of Zosyn until 0800.
--- NOTE | 2018-06-18 07:33 | PCM.PN.ORT ---
Patient Problems: Active and Suspected Problems (Last Reviewed 03/24/18 @ 13:10 by Jennifer Bee) Septic olecranon bursitis of right elbow (Acute) Abscess, wrist (Acute) Skin necrosis (Acute) Stage IV pressure ulcer of sacral region (Acute) with infected necrosis Infected decubitus ulcer (Acute) Olecranon bursitis of right elbow (Acute) Severe sepsis (Acute) Subjective: Seen and examined doing okay pain controlled. - Physical Exam General: Alert, Oriented x3, Cooperative Extremities: - - Right upper extremity dressing clean dry intact hand is swollen however it was not elevated or iced overnight. Compartments soft intact sensation to light touch throughout the hand wiggling fingers capillary refill less than 3 seconds. Vital Signs Temp Pulse Resp BP Pulse Ox 99.2 F H 93 19 H 84/46 L 98 06/18/18 07:00 06/18/18 07:00 06/18/18 07:00 06/18/18 07:00 06/18/18 07:00 Oxygen Flow Rate (L/min) 2 Oxygen Delivery Method Nasal Cannula Weight: 151 lb 12.789 oz Body Mass Index (BMI) 27.9 Finger Stick Blood Glucose 154 Intake and Output for Last 24 Hours 06/16/18 06/17/18 06/18/18 23:59 23:59 23:59 Intake Total 1483.1 / 1483.1 6084.4 / 6084.4 835 / 835 Output Total 675 / 675 1840 / 1840 290 / 290 Balance 808.1 / 808.1 4244.4 / 4244.4 545 / 545 Microbiology Past 72 Hours 06/17/18 13:32 Gram Stain - Final Aspirate - Wrist 06/17/18 07:35 Gram Stain - Final Fluid - Synovial (joint) 06/16/18 14:17 Blood Culture - Preliminary Blood Culture (Wb) - Anticubital Left Laboratory Tests Past 24 Hrs 06/17/18 06/17/18 06/17/18 05:15 07:20 07:35 Lactic Acid 2.0 Troponin I Urine Color Yellow Urine Clarity Sl. Cloudy Urine pH 8.0 Ur Specific [place] 1.010 Urine Protein 30 H Urine Glucose (UA) 100 H Urine Ketones Negative Urine Occult Blood 150 H Urine Nitrite Negative Urine Bilirubin Negative Urine Urobilinogen Normal Ur Leukocyte Esterase 100 H Urine RBC 10-25 SEEN Urine WBC 10-25 SEEN Ur Squamous Epith Cells 0-5 SEEN Urine Bacteria 0 SEEN Urine Mucus 0 SEEN Fluid Crystals SEE PATH REV Fluid Crystal Source SYNOVIAL Fl Crystal Path Review Will follow Blood Type Antibody Screen Crossmatch 06/17/18 06/18/18 06/18/18 13:00 02:35 04:56 Lactic Acid Troponin I < 0.015 0.015 Urine Color Urine Clarity Urine pH Ur Specific [place] Urine Protein Urine Glucose (UA) Urine Ketones Urine Occult Blood Urine Nitrite Urine Bilirubin Urine Urobilinogen Ur Leukocyte Esterase Urine RBC Urine WBC Ur Squamous Epith Cells Urine Bacteria Urine Mucus Fluid Crystals Fluid Crystal Source Fl Crystal Path Review Blood Type B POSITIVE Antibody Screen NEGATIVE Crossmatch See Detail POC Glucose 06/17/18 06/17/18 06/17/18 21:37 14:35 10:43 POC Glucose 163 H 153 H 152 H Medical Necessity - Tobacco Use Smoking Status: Never smoker Tobacco Use: Non-smoker Assessment/Plan All Active Problems (Last Reviewed 03/24/18 @ 13:10 by Jennifer Bee) Septic olecranon bursitis of right elbow (Acute) Abscess, wrist (Acute) Skin necrosis (Acute) Stage IV pressure ulcer of sacral region (Acute) Infected decubitus ulcer (Acute) Olecranon bursitis of right elbow (Acute) Severe sepsis (Acute) Complicated urinary tract infection (Acute) Hematuria (Acute) Pressure ulcer of left buttock, stage 2 (Resolved) Postop day #1 right septic bursitis I&D and right wrist abscess I&D. Patient is to have strict elevation above the heart of the right upper extremity placed order again for to keep ice fresh to elbow and wrist. Dressing to be changed postop day #2 both incisions to be cleaned with Betadine ABD and light Danny wrap applied from hand to axilla. Continue IV antibiotics per primary will need sutures removed around 17 days postop. Encourage range of motion weightbearing as tolerated right upper extremity.
[2018-06-18 07:43] LABS: Absolute Neutrophil Count 3.5 X10^3/uL (2.0-7.7); Eosinophil# 0.02 X10^3/uL; Eosinophils% 0.5 % (0-5); Hematocrit 24.5 % (37-47); Hemoglobin 7.8 g/dl (12.0-15.0); Lymphocyte % 11.8 % (19-41); Mean Corp Hgb Conc 31.8 g/gl (32-36); Mean Corpuscular Hgb 27.6 pg (27.0-32.0); Mean Corpuscular Volume 86.6 fL (81-99); Mean Platelet Vol. 9.1 fl (6.2-12.0); Monocyte# 0.14 X10^3/uL; Monocyte% 3.3 % (0-10); Neutrophil # 3.54 X10^3/uL (2.7-7.7); Neutrophil % 83.5 % (47-70); Platelet Count 69 K/mm3 (150-450); RBC Distribution Width CV 20.1 % (11.6-14.6); RBC Distribution Width SD 64.1 fl (35.1-43.9); Red Blood Count 2.83 M/mm3 (4.2-5.4); White Blood Count 4.2 K/mm3 (4.4-11.0)
[2018-06-18 07:44] LABS: Differential Indicated SCAN CRITERIA MET; POSITIVE COUNT NO; POSITIVE DIFFERENTIAL YES; POSITIVE MORPHOLOGY YES
[2018-06-18 07:57] LABS: Anion Gap 9 (5-15); BUN 12 mg/dL (7-18); Calcium,Total 6.9 mg/dL (8.5-10.1); Chloride 113 mmol/L (98-107); Creatinine, Serum 0.36 mg/dL (0.55-1.02); EST Glomerular Filtration Rate 187 mL/min (>60); Est Glom Filt Rate - Afr Amer 227 mL/min (>60); Estimated Creatinine Clearance 40.07 ml/min; Glucose 246 mg/dL (74-106); Potassium 3.4 mmol/L (3.5-5.1); Prealbumin 10.7 mg/dL (20.0-40.0); Sodium Level 144 mmol/L (136-145)
[2018-06-18] MEDS: Ascorbic Acid 500 MG Tablet PO (08:38)
[2018-06-18] MEDS: METHENAMINE HIPPURATE 1 GM TABLET PO ×2 (08:38→21:11)
[2018-06-18] MEDS: Multivitamins,Therapeutic Tablet 1 TABLET PO (08:38)
[2018-06-18] MEDS: Allopurinol 100 MG Tablet 200 MG PO (08:38)
[2018-06-18] MEDS: Mirabegron 50 MG TAB.ER.24H PO (08:39)
[2018-06-18] MEDS: Insulin Lispro 100 UNIT/ML INSULN.PEN SC ×4 (08:40→21:11)
[2018-06-18] MEDS: Glucerna Shake 120 ML LIQUID PO ×4 (08:46→21:11)
[2018-06-18] MEDS: NYSTATIN 500,000 UNIT/5 ML UDC 500000 UNIT PO ×4 (08:47→21:10)
[2018-06-18] MEDS: Timolol 0.5% 5ML OPTH.BTL 1 DRP EACH EYE (08:47)
[2018-06-18 09:35] LABS: Anisocytosis 2+
[2018-06-18 09:36] LABS: Platelet Estimate MOD DEC (ADEQ)
[2018-06-18 12:05] LABS: Bedside Glucose 336 mg/dL (70-110)
--- NOTE | 2018-06-18 12:21 | CASEMGMT ---
ALEX called [facility] and let [facility] know that patient may be discharged over the weekend. ALEX let her know that patient will have a wound vac. ALEX faxed her updates. Green sheet on chart if patient is ready over the weekend. Plan: d/c back to [facility] under intermediate level of care. Ofelia GARCIA MSW
--- NOTE | 2018-06-18 12:31 | NURSING ---
wound photo: right ischium
--- NOTE | 2018-06-18 12:32 | NURSING ---
wound photo: sacrum
--- NOTE | 2018-06-18 12:34 | NURSING ---
wound photo: left ischium
[2018-06-18 13:03] LABS: Pathologist Review Reviewed
--- NOTE | 2018-06-18 13:27 | PCM.PROGNOTE ---
<Brittany Parker - Last Filed: 06/18/18 13:38> Patient Problems: Active and Suspected Problems (Last Reviewed 03/24/18 @ 13:10 by Jennifer Bee) Abscess, wrist (Acute) Septic olecranon bursitis of right elbow (Acute) Skin necrosis (Acute) Stage IV pressure ulcer of sacral region (Acute) with infected necrosis Infected decubitus ulcer (Acute) Olecranon bursitis of right elbow (Acute) Severe sepsis (Acute) Subjective: Patient seen and examined. Feels well. Denies pain. Denies other complaints. - Physical Exam General: Alert, Oriented x3, Cooperative HEENT: Atraumatic, PERRLA, EOMI, Normocephalic Neck: Supple, No JVD, Negative Carotid Bruits Lungs: Clear to auscultation, Normal air movement Cardiovascular: Regular rate, Regular Rhythm, Normal S1, Normal S2, No murmurs Abdomen: Bowel Sounds Present, Soft, Non Tender, Non-Distended Extremities: No clubbing, No cyanosis, No edema, Capillary Refill Less than 3 Seconds Skin: No rashes, - - Bilateral stage III-IV ischial decubitus ulcers, stage IV sacral pressure ulcer, right elbow erythema-status post aspiration. Dressings intact. Musculoskeletal: No Tenderness to Palpation of Joints or Extremities Neurological: Cranial nerves II-XII grossly intact, Neuro grossly intact Psych/Mental Status: Normal Affect, Appropriate Vital Signs Temp Pulse Resp BP Pulse Ox 100.3 F H 111 H 18 110/52 L 97 06/18/18 11:40 06/18/18 11:40 06/18/18 11:40 06/18/18 11:40 06/18/18 11:40 Oxygen Flow Rate (L/min) 2 Oxygen Delivery Method Nasal Cannula Weight: 151 lb 12.789 oz Body Mass Index (BMI) 27.9 Finger Stick Blood Glucose 154 Intake and Output for Last 24 Hours 06/16/18 06/17/18 06/18/18 23:59 23:59 23:59 Intake Total 1483.1 / 1483.1 6084.4 / 6084.4 1676 / 1676 Output Total 675 / 675 1840 / 1840 390 / 390 Balance 808.1 / 808.1 4244.4 / 4244.4 1286 / 1286 Microbiology Past 72 Hours 06/17/18 14:56 Wound Culture - Preliminary Tissue - Other Mixed Gram Positive Organisms 06/17/18 14:56 Wound Culture - Preliminary Bone - Other Gram positive organism 06/17/18 14:56 Wound Culture - Preliminary Tissue - Other Mixed Gram Pos & Gram Neg Org 06/17/18 14:56 Wound Culture - Preliminary Bone - Other Gram positive organism 06/17/18 14:56 Wound Culture - Preliminary Tissue - Sacral Gram negative miranda Gram positive organism 06/17/18 14:56 Wound Culture - Preliminary Bone - Other 06/17/18 13:32 Gram Stain - Final Aspirate - Wrist Wound Culture - Preliminary Staphylococcus aureus 06/17/18 07:35 Gram Stain - Final Fluid - Synovial (joint) Body Fluid Culture - Preliminary Staphylococcus aureus 06/17/18 05:15 Urine Culture - Preliminary Urine Catheter - Catheter Gram negative miranda 06/16/18 14:17 Blood Culture - Preliminary Blood Culture (Wb) - Anticubital Left Staphylococcus aureus Laboratory Tests Past 24 Hrs 06/17/18 06/17/18 06/18/18 07:35 13:00 02:35 WBC RBC Hgb Hct MCV MCH MCHC RDW RDW Differential Plt Count MPV Immature Gran % (Auto) Neut % (Auto) Lymph % (Auto) [place] % (Auto) Eos % (Auto) Baso % (Auto) Absolute Neuts (auto) Absolute Lymphs (auto) Total Counted Platelet Estimate Anisocytosis Sodium Potassium Chloride Carbon Dioxide Anion Gap BUN Creatinine Estim Creat Clear Calc Est GFR (MDRD) Af Amer Est GFR (MDRD) Non-Af BUN/Creatinine Ratio Glucose Calcium Troponin I < 0.015 Prealbumin Fl Crystal Path Review Reviewed Blood Type B POSITIVE Antibody Screen NEGATIVE Crossmatch See Detail 06/18/18 06/18/18 06/18/18 04:56 07:30 07:30 WBC 4.2 L RBC 2.83 L Hgb 7.8 L Hct 24.5 L MCV 86.6 MCH 27.6 MCHC 31.8 L RDW 20.1 H RDW Differential 64.1 H Plt Count 69 L MPV 9.1 Immature Gran % (Auto) 0.900 Neut % (Auto) 83.5 H Lymph % (Auto) 11.8 L [place] % (Auto) 3.3 Eos % (Auto) 0.5 Baso % (Auto) 0.0 Absolute Neuts (auto) 3.5 Absolute Lymphs (auto) 0.50 L Total Counted Not Reportable Platelet Estimate MOD DEC Anisocytosis 2+ Sodium 144 Potassium 3.4 L Chloride 113 H Carbon Dioxide 22.0 Anion Gap 9 BUN 12 Creatinine 0.36 L Estim Creat Clear Calc 40.07 Est GFR (MDRD) Af Amer 227 Est GFR (MDRD) Non-Af 187 BUN/Creatinine Ratio 33.0 H Glucose 246 H Calcium 6.9 L Troponin I 0.015 Prealbumin 10.7 L Fl Crystal Path Review Blood Type Antibody Screen Crossmatch 06/18/18 07:30 WBC RBC Hgb Hct MCV MCH MCHC RDW RDW Differential Plt Count MPV Immature Gran % (Auto) Neut % (Auto) Lymph % (Auto) [place] % (Auto) Eos % (Auto) Baso % (Auto) Absolute Neuts (auto) Absolute Lymphs (auto) Total Counted Platelet Estimate Anisocytosis Sodium Potassium Chloride Carbon Dioxide Anion Gap BUN Creatinine Estim Creat Clear Calc Est GFR (MDRD) Af Amer Est GFR (MDRD) Non-Af BUN/Creatinine Ratio Glucose Calcium Troponin I < 0.015 Prealbumin Fl Crystal Path Review Blood Type Antibody Screen Crossmatch POC Glucose 06/18/18 06/17/18 06/17/18 11:35 21:37 14:35 POC Glucose 336 H 163 H 153 H Medical Necessity - Tobacco Use Smoking Status: Never smoker Tobacco Use: Non-smoker Assessment/Plan All Active Problems (Last Reviewed 03/24/18 @ 13:10 by Jennifer Bee) Abscess, wrist (Acute) Septic olecranon bursitis of right elbow (Acute) Skin necrosis (Acute) Stage IV pressure ulcer of sacral region (Acute) Infected decubitus ulcer (Acute) Olecranon bursitis of right elbow (Acute) Severe sepsis (Acute) Complicated urinary tract infection (Acute) Hematuria (Acute) Pressure ulcer of left buttock, stage 2 (Resolved) 1. Severe sepsis secondary to infected decubitus ulcer of the sacrum as well as olecranon bursitis and Staphylococcus aureus bacteremia-lactic acid 5.7 on admission, resolved. Continue to treat infectious processes. Blood cultures positive for Staphylococcus aureus 06/16/2018. Repeat cultures pending. 2. Infected/necrotic decubitus sacral ulcer-history of multiple chronic wounds including stable chronic bilateral ischial ulcers stage IV with chronic osteomyelitis left ischial area. Dr. Myles consulted, t underwent wound debridement of coccyx ulcer 06/17/18. Wound RN consult. Continue IV vancomycin and IV Zosyn. Patient had wound VAC applied today. Sacral tissue culture showing gram-negative and gram-positive organism preliminary. Consult ID for discharge antibiotics recommendations given extensive wounds with multiple organisms. 3. Olecranon bursitis-IV vancomycin and IV Zosyn as noted above. Dr. Aquino consulted. MRI shows olecranon bursitis with fluid collection. Possible abscess. Bursa was aspirated and culture sent. Preliminary culture of wrist and synovial joint fluid showing staph aureus. Patient underwent open irrigation and debridement of right elbow bursa and subcutaneous abscess of wrist 06/17/[address] Aquino. Dressing intact. 4. Type 2 diabetes [id number] ACHS with sliding scale insulin. 5. Hypertension-continue home losartan regimen. 6. Hyperlipidemia-continue statin. 7. Spinal stenosis and peripheral neuropathy with neurogenic bladder, paraplegia-chronic Rea catheter. PT/OT. Resides at [facility]. 8. Acute blood loss anemia secondary to wound debridement on anemia of chronic disease-trend CBC, plan for transfusion if hemoglobin less than 7 or patient becomes symptomatic. DVT prophylaxis-Lovenox subcu CODE STATUS: Patient's wish to change her CODE STATUS from DNR CCA to full code. She reports she is agreeable to chest compressions but does not want to long-term mechanical ventilation. This patient was seen by AVELINO Fuchs under the supervision of Dr. Gray. <Farhad Gray - Last Filed: 06/18/18 16:35> Subjective: Patient is feeling better. The patient has low-grade fever, T-max 100.3 Fahrenheit. Mild tachycardia, heart rate in 100s/min. Operative site pain is much less. Right forearm has Danny wrap bandage. Objective: General: Alert, Oriented x3, Cooperative, No apparent distress. Awake and alert. Severe protein calorie malnutrition HEENT: Atraumatic, PERRLA, EOMI, Normocephalic Oral: Dry Mucosa Neck: Supple, No JVD, Negative Carotid Bruits Lungs: Clear to auscultation, No rhonchi, No wheeze, vascular Air entry diminished in bilateral lung bases. Kyphosis. Cardiovascular: Regular rate, Regular Rhythm, Normal S1, Normal S2 Abdomen: Bowel Sounds Present, Soft, Non Tender, Non-Distended, Obese Extremities: No cyanosis, No edema. Musculoskeletal: Arthritic Changes, Muscle Wasting, Diffuse muscle atrophy of thigh muscles and extremities. Contracture present of lower extremities Spine: Dressing is dry on sacrococcygeal region Neurological: - Weakness of lower extremities. Generalized atrophy of extremity muscles - Physical Exam Vital Signs Temp Pulse Resp BP Pulse Ox 98.9 F 117 H 18 122/70 H 97 06/18/18 13:40 06/18/18 13:40 06/18/18 13:40 06/18/18 13:40 06/18/18 13:40 Oxygen Flow Rate (L/min) 2 Oxygen Delivery Method Nasal Cannula Weight: 151 lb 12.789 oz Body Mass Index (BMI) 27.9 Finger Stick Blood Glucose 154 Intake and Output for Last 24 Hours 06/16/18 06/17/18 06/18/18 23:59 23:59 23:59 Intake Total 1483.1 / 1483.1 6084.4 / 6084.4 1676 / 1676 Output Total 675 / 675 1840 / 1840 390 / 390 Balance 808.1 / 808.1 4244.4 / 4244.4 1286 / 1286 Microbiology Past 72 Hours 06/17/18 14:56 Gram Stain - Final Tissue - Other Wound Culture - Preliminary Mixed Gram Positive Organisms 06/17/18 14:56 Gram Stain - Final Bone - Other Wound Culture - Preliminary Gram positive organism 06/17/18 14:56 Gram Stain - Final Tissue - Other Wound Culture - Preliminary Mixed Gram Pos & Gram Neg Org 06/17/18 14:56 Gram Stain - Final Bone - Other Wound Culture - Preliminary Gram positive organism 06/17/18 14:56 Gram Stain - Final Tissue - Sacral Wound Culture - Preliminary Gram negative miranda Gram positive organism 06/17/18 14:56 Gram Stain - Final Bone - Other Wound Culture - Preliminary 06/17/18 13:32 Gram Stain - Final Aspirate - Wrist Wound Culture - Preliminary Staphylococcus aureus 06/17/18 07:35 Gram Stain - Final Fluid - Synovial (joint) Body Fluid Culture - Preliminary Staphylococcus aureus 06/17/18 05:15 Urine Culture - Preliminary Urine Catheter - Catheter Gram negative miranda 06/16/18 14:17 Blood Culture - Preliminary Blood Culture (Wb) - Anticubital Left Staphylococcus aureus Laboratory Tests Past 24 Hrs 06/17/18 06/18/18 06/18/18 07:35 02:35 04:56 WBC RBC Hgb Hct MCV MCH MCHC RDW RDW Differential Plt Count MPV Immature Gran % (Auto) Neut % (Auto) Lymph % (Auto) [place] % (Auto) Eos % (Auto) Baso % (Auto) Absolute Neuts (auto) Absolute Lymphs (auto) Total Counted Platelet Estimate Anisocytosis Sodium Potassium Chloride Carbon Dioxide Anion Gap BUN Creatinine Estim Creat Clear Calc Est GFR (MDRD) Af Amer Est GFR (MDRD) Non-Af BUN/Creatinine Ratio Glucose Calcium Troponin I < 0.015 0.015 Prealbumin Fl Crystal Path Review Reviewed Vancomycin Trough 06/18/18 06/18/18 06/18/18 07:30 07:30 07:30 WBC 4.2 L RBC 2.83 L Hgb 7.8 L Hct 24.5 L MCV 86.6 MCH 27.6 MCHC 31.8 L RDW 20.1 H RDW Differential 64.1 H Plt Count 69 L MPV 9.1 Immature Gran % (Auto) 0.900 Neut % (Auto) 83.5 H Lymph % (Auto) 11.8 L [place] % (Auto) 3.3 Eos % (Auto) 0.5 Baso % (Auto) 0.0 Absolute Neuts (auto) 3.5 Absolute Lymphs (auto) 0.50 L Total Counted Not Reportable Platelet Estimate MOD DEC Anisocytosis 2+ Sodium 144 Potassium 3.4 L Chloride 113 H Carbon Dioxide 22.0 Anion Gap 9 BUN 12 Creatinine 0.36 L Estim Creat Clear Calc 40.07 Est GFR (MDRD) Af Amer 227 Est GFR (MDRD) Non-Af 187 BUN/Creatinine Ratio 33.0 H Glucose 246 H Calcium 6.9 L Troponin I < 0.015 Prealbumin 10.7 L Fl Crystal Path Review Vancomycin Trough 06/18/18 14:40 WBC RBC Hgb Hct MCV MCH MCHC RDW RDW Differential Plt Count MPV Immature Gran % (Auto) Neut % (Auto) Lymph % (Auto) [place] % (Auto) Eos % (Auto) Baso % (Auto) Absolute Neuts (auto) Absolute Lymphs (auto) Total Counted Platelet Estimate Anisocytosis Sodium Potassium Chloride Carbon Dioxide Anion Gap BUN Creatinine Estim Creat Clear Calc Est GFR (MDRD) Af Amer Est GFR (MDRD) Non-Af BUN/Creatinine Ratio Glucose Calcium Troponin I Prealbumin Fl Crystal Path Review Vancomycin Trough 5.1 POC Glucose 06/18/18 06/17/18 11:35 21:37 POC Glucose 336 H 163 H Assessment/Plan This patient was seen in conjunction with FUNERAL LOCATION MANAGERBrittany. I have independently interviewed and examined the patient and reviewed pertinent history, examination findings, laboratory and plan of management. I have reviewed the note and agree with the documented findings with the few additional points. In brief, patient is admitted for severe sepsis secondary to infected decubitus ulcer of sacrum, chronic B/L ischial ulcers stage IV. patient has Right septic bursitis of the elbow and right wrist abscess which required open irrigation and debridement of right elbow bursa and drainage of subcutaneous abscess of right wrist by Dr. Garza Patient is on broad-spectrum IV antibiotic vancomycin and Zosyn. Dr. Myles and Dr. Garza consult appreciated. Patient had a wide excision of decubitus ulcer as mentioned above. The patient has other multiple comorbidities including neurogenic bladder with chronic suprapubic catheter, rectal prolapse with colostomy, diabetes mellitus type 2 with diabetic neuropathy, chronic osteitis of left ischial area, spinal stenosis and anemia of chronic disease. ID has been consulted for positive tissue culture of gram-negative rods, gram-positive organism which are still preliminary. Advanced directive: Patient is awake and alert in couple of making decision. She is agreeable to chest compression but does not want long-term mechanical ventilator. Patient is being taken care of by her brother and [id number]. Patient does not want long-term ventilator support but she is okay with chest compression. Patient is turned full code Total time spent in [id number] encounter in discussion of advanced directive 18 minutes. I have discussed my assessment with FUNERAL LOCATION MANAGERBrittany and orders have been reviewed. Code Visit Inpatient E&M: 10252 Subs Hosp L3 Procedures: 98617 Advncd Care Plan 30 Min
--- NOTE | 2018-06-18 13:36 | PN_ITS ---
<Brittany Parker - Last Filed: 06/18/18 13:38> Patient Problems: Active and Suspected Problems (Last Reviewed 03/24/18 @ 13:10 by Jennifer Bee) Abscess, wrist (Acute) Septic olecranon bursitis of right elbow (Acute) Skin necrosis (Acute) Stage IV pressure ulcer of sacral region (Acute) with infected necrosis Infected decubitus ulcer (Acute) Olecranon bursitis of right elbow (Acute) Severe sepsis (Acute) Subjective: Patient seen and examined. Feels well. Denies pain. Denies other complaints. - Physical Exam General: Alert, Oriented x3, Cooperative HEENT: Atraumatic, PERRLA, EOMI, Normocephalic Neck: Supple, No JVD, Negative Carotid Bruits Lungs: Clear to auscultation, Normal air movement Cardiovascular: Regular rate, Regular Rhythm, Normal S1, Normal S2, No murmurs Abdomen: Bowel Sounds Present, Soft, Non Tender, Non-Distended Extremities: No clubbing, No cyanosis, No edema, Capillary Refill Less than 3 Seconds Skin: No rashes, - - Bilateral stage III-IV ischial decubitus ulcers, stage IV sacral pressure ulcer, right elbow erythema-status post aspiration. Dressings intact. Musculoskeletal: No Tenderness to Palpation of Joints or Extremities Neurological: Cranial nerves II-XII grossly intact, Neuro grossly intact Psych/Mental Status: Normal Affect, Appropriate Vital Signs Temp Pulse Resp BP Pulse Ox 100.3 F H 111 H 18 110/52 L 97 06/18/18 11:40 06/18/18 11:40 06/18/18 11:40 06/18/18 11:40 06/18/18 11:40 Oxygen Flow Rate (L/min) 2 Oxygen Delivery Method Nasal Cannula Weight: 151 lb 12.789 oz Body Mass Index (BMI) 27.9 Finger Stick Blood Glucose 154 Intake and Output for Last 24 Hours 06/16/18 06/17/18 06/18/18 23:59 23:59 23:59 Intake Total 1483.1 / 1483.1 6084.4 / 6084.4 1676 / 1676 Output Total 675 / 675 1840 / 1840 390 / 390 Balance 808.1 / 808.1 4244.4 / 4244.4 1286 / 1286 Microbiology Past 72 Hours 06/17/18 14:56 Wound Culture - Preliminary Tissue - Other Mixed Gram Positive Organisms 06/17/18 14:56 Wound Culture - Preliminary Bone - Other Gram positive organism 06/17/18 14:56 Wound Culture - Preliminary Tissue - Other Mixed Gram Pos & Gram Neg Org 06/17/18 14:56 Wound Culture - Preliminary Bone - Other Gram positive organism 06/17/18 14:56 Wound Culture - Preliminary Tissue - Sacral Gram negative miranda Gram positive organism 06/17/18 14:56 Wound Culture - Preliminary Bone - Other 06/17/18 13:32 Gram Stain - Final Aspirate - Wrist Wound Culture - Preliminary Staphylococcus aureus 06/17/18 07:35 Gram Stain - Final Fluid - Synovial (joint) Body Fluid Culture - Preliminary Staphylococcus aureus 06/17/18 05:15 Urine Culture - Preliminary Urine Catheter - Catheter Gram negative miranda 06/16/18 14:17 Blood Culture - Preliminary Blood Culture (Wb) - Anticubital Left Staphylococcus aureus Laboratory Tests Past 24 Hrs 06/17/18 06/17/18 06/18/18 07:35 13:00 02:35 WBC RBC Hgb Hct MCV MCH MCHC RDW RDW Differential Plt Count MPV Immature Gran % (Auto) Neut % (Auto) Lymph % (Auto) [place] % (Auto) Eos % (Auto) Baso % (Auto) Absolute Neuts (auto) Absolute Lymphs (auto) Total Counted Platelet Estimate Anisocytosis Sodium Potassium Chloride Carbon Dioxide Anion Gap BUN Creatinine Estim Creat Clear Calc Est GFR (MDRD) Af Amer Est GFR (MDRD) Non-Af BUN/Creatinine Ratio Glucose Calcium Troponin I < 0.015 Prealbumin Fl Crystal Path Review Reviewed Blood Type B POSITIVE Antibody Screen NEGATIVE Crossmatch See Detail 06/18/18 06/18/18 06/18/18 04:56 07:30 07:30 WBC 4.2 L RBC 2.83 L Hgb 7.8 L Hct 24.5 L MCV 86.6 MCH 27.6 MCHC 31.8 L RDW 20.1 H RDW Differential 64.1 H Plt Count 69 L MPV 9.1 Immature Gran % (Auto) 0.900 Neut % (Auto) 83.5 H Lymph % (Auto) 11.8 L [place] % (Auto) 3.3 Eos % (Auto) 0.5 Baso % (Auto) 0.0 Absolute Neuts (auto) 3.5 Absolute Lymphs (auto) 0.50 L Total Counted Not Reportable Platelet Estimate MOD DEC Anisocytosis 2+ Sodium 144 Potassium 3.4 L Chloride 113 H Carbon Dioxide 22.0 Anion Gap 9 BUN 12 Creatinine 0.36 L Estim Creat Clear Calc 40.07 Est GFR (MDRD) Af Amer 227 Est GFR (MDRD) Non-Af 187 BUN/Creatinine Ratio 33.0 H Glucose 246 H Calcium 6.9 L Troponin I 0.015 Prealbumin 10.7 L Fl Crystal Path Review Blood Type Antibody Screen Crossmatch 06/18/18 07:30 WBC RBC Hgb Hct MCV MCH MCHC RDW RDW Differential Plt Count MPV Immature Gran % (Auto) Neut % (Auto) Lymph % (Auto) [place] % (Auto) Eos % (Auto) Baso % (Auto) Absolute Neuts (auto) Absolute Lymphs (auto) Total Counted Platelet Estimate Anisocytosis Sodium Potassium Chloride Carbon Dioxide Anion Gap BUN Creatinine Estim Creat Clear Calc Est GFR (MDRD) Af Amer Est GFR (MDRD) Non-Af BUN/Creatinine Ratio Glucose Calcium Troponin I < 0.015 Prealbumin Fl Crystal Path Review Blood Type Antibody Screen Crossmatch POC Glucose 06/18/18 06/17/18 06/17/18 11:35 21:37 14:35 POC Glucose 336 H 163 H 153 H Medical Necessity - Tobacco Use Smoking Status: Never smoker Tobacco Use: Non-smoker Assessment/Plan All Active Problems (Last Reviewed 03/24/18 @ 13:10 by Jennifer Bee) Abscess, wrist (Acute) Septic olecranon bursitis of right elbow (Acute) Skin necrosis (Acute) Stage IV pressure ulcer of sacral region (Acute) Infected decubitus ulcer (Acute) Olecranon bursitis of right elbow (Acute) Severe sepsis (Acute) Complicated urinary tract infection (Acute) Hematuria (Acute) Pressure ulcer of left buttock, stage 2 (Resolved) 1. Severe sepsis secondary to infected decubitus ulcer of the sacrum as well as olecranon bursitis and Staphylococcus aureus bacteremia-lactic acid 5.7 on admission, resolved. Continue to treat infectious processes. Blood cultures positive for Staphylococcus aureus 06/16/2018. Repeat cultures pending. 2. Infected/necrotic decubitus sacral ulcer-history of multiple chronic wounds including stable chronic bilateral ischial ulcers stage IV with chronic osteomyelitis left ischial area. Dr. Myles consulted, t underwent wound debridement of coccyx ulcer 06/17/18. Wound RN consult. Continue IV vancomycin and IV Zosyn. Patient had wound VAC applied today. Sacral tissue culture showing gram-negative and gram-positive organism preliminary. Consult ID for discharge antibiotics recommendations given extensive wounds with multiple organisms. 3. Olecranon bursitis-IV vancomycin and IV Zosyn as noted above. Dr. Aquino consulted. MRI shows olecranon bursitis with fluid collection. Possible abscess. Bursa was aspirated and culture sent. Preliminary culture of wrist and synovial joint fluid showing staph aureus. Patient underwent open irrigation and debridement of right elbow bursa and subcutaneous abscess of wrist 06/17/[address] Aquino. Dressing intact. 4. Type 2 diabetes [id number]-[id number] ACHS with sliding scale insulin. 5. Hypertension-continue home losartan regimen. 6. Hyperlipidemia-continue statin. 7. Spinal stenosis and peripheral neuropathy with neurogenic bladder, paraplegia-chronic Rea catheter. PT/OT. Resides at [facility]. 8. Acute blood loss anemia secondary to wound debridement on anemia of chronic disease-trend CBC, plan for transfusion if hemoglobin less than 7 or patient becomes symptomatic. DVT prophylaxis-Lovenox subcu CODE STATUS: Patient's wish to change her CODE STATUS from DNR CCA to full code. She reports she is agreeable to chest compressions but does not want to long- term mechanical ventilation. This patient was seen by AVELINO Fuchs under the supervision of Dr. Gray. <Farhad Gray - Last Filed: 06/18/18 16:35> Subjective: Patient is feeling better. The patient has low-grade fever, T-max 100.3 Fahrenheit. Mild tachycardia, heart rate in 100s/min. Operative site pain is much less. Right forearm has Danny wrap bandage. Objective: General: Alert, Oriented x3, Cooperative, No apparent distress. Awake and alert. Severe protein calorie malnutrition HEENT: Atraumatic, PERRLA, EOMI, Normocephalic Oral: Dry Mucosa Neck: Supple, No JVD, Negative Carotid Bruits Lungs: Clear to auscultation, No rhonchi, No wheeze, vascular Air entry diminished in bilateral lung bases. Kyphosis. Cardiovascular: Regular rate, Regular Rhythm, Normal S1, Normal S2 Abdomen: Bowel Sounds Present, Soft, Non Tender, Non-Distended, Obese Extremities: No cyanosis, No edema. Musculoskeletal: Arthritic Changes, Muscle Wasting, Diffuse muscle atrophy of thigh muscles and extremities. Contracture present of lower extremities Spine: Dressing is dry on sacrococcygeal region Neurological: - Weakness of lower extremities. Generalized atrophy of extremity muscles - Physical Exam Vital Signs Temp Pulse Resp BP Pulse Ox 98.9 F 117 H 18 122/70 H 97 06/18/18 13:40 06/18/18 13:40 06/18/18 13:40 06/18/18 13:40 06/18/18 13:40 Oxygen Flow Rate (L/min) 2 Oxygen Delivery Method Nasal Cannula Weight: 151 lb 12.789 oz Body Mass Index (BMI) 27.9 Finger Stick Blood Glucose 154 Intake and Output for Last 24 Hours 06/16/18 06/17/18 06/18/18 23:59 23:59 23:59 Intake Total 1483.1 / 1483.1 6084.4 / 6084.4 1676 / 1676 Output Total 675 / 675 1840 / 1840 390 / 390 Balance 808.1 / 808.1 4244.4 / 4244.4 1286 / 1286 Microbiology Past 72 Hours 06/17/18 14:56 Gram Stain - Final Tissue - Other Wound Culture - Preliminary Mixed Gram Positive Organisms 06/17/18 14:56 Gram Stain - Final Bone - Other Wound Culture - Preliminary Gram positive organism 06/17/18 14:56 Gram Stain - Final Tissue - Other Wound Culture - Preliminary Mixed Gram Pos & Gram Neg Org 06/17/18 14:56 Gram Stain - Final Bone - Other Wound Culture - Preliminary Gram positive organism 06/17/18 14:56 Gram Stain - Final Tissue - Sacral Wound Culture - Preliminary Gram negative miranda Gram positive organism 06/17/18 14:56 Gram Stain - Final Bone - Other Wound Culture - Preliminary 06/17/18 13:32 Gram Stain - Final Aspirate - Wrist Wound Culture - Preliminary Staphylococcus aureus 06/17/18 07:35 Gram Stain - Final Fluid - Synovial (joint) Body Fluid Culture - Preliminary Staphylococcus aureus 06/17/18 05:15 Urine Culture - Preliminary Urine Catheter - Catheter Gram negative miranda 06/16/18 14:17 Blood Culture - Preliminary Blood Culture (Wb) - Anticubital Left Staphylococcus aureus Laboratory Tests Past 24 Hrs 06/17/18 06/18/18 06/18/18 07:35 02:35 04:56 WBC RBC Hgb Hct MCV MCH MCHC RDW RDW Differential Plt Count MPV Immature Gran % (Auto) Neut % (Auto) Lymph % (Auto) [place] % (Auto) Eos % (Auto) Baso % (Auto) Absolute Neuts (auto) Absolute Lymphs (auto) Total Counted Platelet Estimate Anisocytosis Sodium Potassium Chloride Carbon Dioxide Anion Gap BUN Creatinine Estim Creat Clear Calc Est GFR (MDRD) Af Amer Est GFR (MDRD) Non-Af BUN/Creatinine Ratio Glucose Calcium Troponin I < 0.015 0.015 Prealbumin Fl Crystal Path Review Reviewed Vancomycin Trough 06/18/18 06/18/18 06/18/18 07:30 07:30 07:30 WBC 4.2 L RBC 2.83 L Hgb 7.8 L Hct 24.5 L MCV 86.6 MCH 27.6 MCHC 31.8 L RDW 20.1 H RDW Differential 64.1 H Plt Count 69 L MPV 9.1 Immature Gran % (Auto) 0.900 Neut % (Auto) 83.5 H Lymph % (Auto) 11.8 L [place] % (Auto) 3.3 Eos % (Auto) 0.5 Baso % (Auto) 0.0 Absolute Neuts (auto) 3.5 Absolute Lymphs (auto) 0.50 L Total Counted Not Reportable Platelet Estimate MOD DEC Anisocytosis 2+ Sodium 144 Potassium 3.4 L Chloride 113 H Carbon Dioxide 22.0 Anion Gap 9 BUN 12 Creatinine 0.36 L Estim Creat Clear Calc 40.07 Est GFR (MDRD) Af Amer 227 Est GFR (MDRD) Non-Af 187 BUN/Creatinine Ratio 33.0 H Glucose 246 H Calcium 6.9 L Troponin I < 0.015 Prealbumin 10.7 L Fl Crystal Path Review Vancomycin Trough 06/18/18 14:40 WBC RBC Hgb Hct MCV MCH MCHC RDW RDW Differential Plt Count MPV Immature Gran % (Auto) Neut % (Auto) Lymph % (Auto) [place] % (Auto) Eos % (Auto) Baso % (Auto) Absolute Neuts (auto) Absolute Lymphs (auto) Total Counted Platelet Estimate Anisocytosis Sodium Potassium Chloride Carbon Dioxide Anion Gap BUN Creatinine Estim Creat Clear Calc Est GFR (MDRD) Af Amer Est GFR (MDRD) Non-Af BUN/Creatinine Ratio Glucose Calcium Troponin I Prealbumin Fl Crystal Path Review Vancomycin Trough 5.1 POC Glucose 06/18/18 06/17/18 11:35 21:37 POC Glucose 336 H 163 H Assessment/Plan This patient was seen in conjunction with VARNISH SUPERVISORBrittany. I have independently interviewed and examined the patient and reviewed pertinent history, examination findings, laboratory and plan of management. I have reviewed the note and agree with the documented findings with the few additional points. In brief, patient is admitted for severe sepsis secondary to infected decubitus ulcer of sacrum, chronic B/L ischial ulcers stage IV. patient has Right septic bursitis of the elbow and right wrist abscess which required open irrigation and debridement of right elbow bursa and drainage of subcutaneous abscess of right wrist by Dr. Garza Patient is on broad-spectrum IV antibiotic vancomycin and Zosyn. Dr. Myles and Dr. Garza consult appreciated. Patient had a wide excision of decubitus ulcer as mentioned above. The patient has other multiple comorbidities including neurogenic bladder with chronic suprapubic catheter, re ctal prolapse with colostomy, diabetes mellitus type 2 with diabetic neuropathy, chronic osteitis of left ischial area, spinal stenosis and anemia of chronic disease. ID has been consulted for positive tissue culture of gram-negative rods, gram-positive organism which are still preliminary. Advanced directive: Patient is awake and alert in couple of making decision. She is agreeable to chest compression but does not want long-term mechanical ventilator. Patient is being taken care of by her brother and [id number]. Patient does not want long-term ventilator support but she is okay with chest compression. Patient is turned full code Total time spent in [id number] encounter in discussion of advanced directive 18 minutes. I have discussed my assessment with VARNISH SUPERVISORBrittany and orders have been reviewed. Code Visit Inpatient E&M: 23113 Subs Hosp L3 Procedures: 76004 Advncd Care Plan 30 Min
[2018-06-18 15:38] LABS: Vancomycin, Trough Level 5.1 ug/mL (5.0-15.0)
[2018-06-18] MEDS: Tolterodine Tartrate 4 MG CAP.SA PO (16:26)
[2018-06-18] MEDS: Losartan Potassium 25 MG Tablet PO (16:36)
[2018-06-18 16:46] LABS: Bedside Glucose 292 mg/dL (70-110)
--- NOTE | 2018-06-18 19:43 | PCM.RX.CS ---
Consult Pharmacy has been consulted to manage selected antiobiotic: Vancomycin Type of Consult: Follow-up Suspected Infection: Skin/Soft tissue Prior Doses of Antibiotics Received/Current Regimen: Vancomycin 1000mg IV x1 on 06/16/18 and Vancomycin 750mg IV q24h x2 doses Labs: Sodium 144 mmol/L (136-145) 06/18/18 07:30 Potassium 3.4 mmol/L (3.5-5.1) L 06/18/18 07:30 Chloride 113 mmol/L (98-107) H 06/18/18 07:30 Carbon Dioxide 22.0 mmol/L (21.0-32.0) 06/18/18 07:30 Anion Gap 9 (5-15) 06/18/18 07:30 BUN 12 mg/dL (7-18) 06/18/18 07:30 Creatinine 0.36 mg/dL (0.55-1.02) L 06/18/18 07:30 Est GFR (MDRD) Af Amer 227 mL/min (>60) 06/18/18 07:30 Est GFR (MDRD) Non-Af 187 mL/min (>60) 06/18/18 07:30 BUN/Creatinine Ratio 33.0 RATIO (10-20) H 06/18/18 07:30 Glucose 246 mg/dL (74-106) H 06/18/18 07:30 Vancomycin Trough 5.1 ug/mL (5.0-15.0) 06/18/18 14:40 Microbiology: Microbiology 06/17/18 14:56 Tissue - Other Gram Stain - Final 06/17/18 14:56 Tissue - Other Wound Culture - Preliminary Mixed Gram Positive Organisms 06/17/18 14:56 Bone - Other Gram Stain - Final 06/17/18 14:56 Bone - Other Wound Culture - Preliminary Gram positive organism 06/17/18 14:56 Tissue - Other Gram Stain - Final 06/17/18 14:56 Tissue - Other Wound Culture - Preliminary Mixed Gram Pos & Gram Neg Org 06/17/18 14:56 Bone - Other Gram Stain - Final 06/17/18 14:56 Bone - Other Wound Culture - Preliminary Gram positive organism 06/17/18 14:56 Tissue - Sacral Gram Stain - Final 06/17/18 14:56 Tissue - Sacral Wound Culture - Preliminary Gram negative miranda Gram positive organism 06/17/18 14:56 Bone - Other Gram Stain - Final 06/17/18 14:56 Bone - Other Wound Culture - Preliminary 06/17/18 13:32 Aspirate - Wrist Gram Stain - Final 06/17/18 13:32 Aspirate - Wrist Wound Culture - Preliminary Staphylococcus aureus 06/17/18 07:35 Fluid - Synovial (joint) Gram Stain - Final 06/17/18 07:35 Fluid - Synovial (joint) Body Fluid Culture - Preliminary Staphylococcus aureus 06/17/18 05:15 Urine Catheter - Catheter Urine Culture - Preliminary Gram negative miranda 06/16/18 14:17 Blood Culture (Wb) - Anticubital Left Blood Culture - Preliminary Staphylococcus aureus Weight used for dosin.8 kg Estimated Creatinine Clearance: 52.49 Goal Trough: 10-15 mcg/mL Pharmacy Plan for Drug Dosing: Recommend Vancomycin 500mg IV q12h to get an est trough of 13 based no Clinical Pharmacology dose calculator. Check trough before the 4th dose on 06/20/18 at 1430 Pharmacy Service will continue to monitor and adjust dosing as required. Follow-Up Labs: Trough Vancomycin Labs to be done on [date and time ordered]: trough level 06/20/18 at 1430
--- NOTE | 2018-06-18 21:01 | PN.SURG_ITS ---
Patient Problems: Active and Suspected Problems (Last Reviewed 03/24/18 @ 13:10 by Jennifer Bee) Abscess, wrist (Acute) Septic olecranon bursitis of right elbow (Acute) Skin necrosis (Acute) Stage IV pressure ulcer of sacral region (Acute) with infected necrosis Infected decubitus ulcer (Acute) Olecranon bursitis of right elbow (Acute) Severe sepsis (Acute) Subjective: Postop #1 Patient is resting comfortably. - Physical Exam General: Alert, Oriented x3 HEENT: PERRLA Oral: Moist Mucosa Neck: Supple Abdomen: Soft, Non-Distended Skin: Ulcer/ Wound - wounds stable. Some oozing noted in the right ischial wound. No VAC was placed. Moist dressing applied. VAC was placed in the left ischial and sacral wounds. Neurological: Cranial nerves II-XII grossly intact Psych/Mental Status: Normal Affect, Appropriate Vital Signs Temp Pulse Resp BP Pulse Ox 99.0 F 128 H 18 128/58 H 97 06/18/18 16:34 06/18/18 19:02 06/18/18 17:24 06/18/18 17:25 06/18/18 16:34 Oxygen Flow Rate (L/min) 2 Oxygen Delivery Method Nasal Cannula Weight: 151 lb 12.789 oz Body Mass Index (BMI) 27.9 Finger Stick Blood Glucose 154 Intake and Output for Last 24 Hours 06/16/18 06/17/18 06/18/18 23:59 23:59 23:59 Intake Total 1483.1 / 1483.1 6084.4 / 6084.4 1676 / 1676 Output Total 675 / 675 1840 / 1840 690 / 690 Balance 808.1 / 808.1 4244.4 / 4244.4 986 / 986 Microbiology Past 72 Hours 06/17/18 14:56 Gram Stain - Final Tissue - Other Wound Culture - Preliminary Mixed Gram Positive Organisms 06/17/18 14:56 Gram Stain - Final Bone - Other Wound Culture - Preliminary Gram positive organism 06/17/18 14:56 Gram Stain - Final Tissue - Other Wound Culture - Preliminary Mixed Gram Pos & Gram Neg Org 06/17/18 14:56 Gram Stain - Final Bone - Other Wound Culture - Preliminary Gram positive organism 06/17/18 14:56 Gram Stain - Final Tissue - Sacral Wound Culture - Preliminary Gram negative miranda Gram positive organism 06/17/18 14:56 Gram Stain - Final Bone - Other Wound Culture - Preliminary 06/17/18 13:32 Gram Stain - Final Aspirate - Wrist Wound Culture - Preliminary Staphylococcus aureus 06/17/18 07:35 Gram Stain - Final Fluid - Synovial (joint) Body Fluid Culture - Preliminary Staphylococcus aureus 06/17/18 05:15 Urine Culture - Preliminary Urine Catheter - Catheter Gram negative miranda 06/16/18 14:17 Blood Culture - Preliminary Blood Culture (Wb) - Anticubital Left Staphylococcus aureus Laboratory Tests Past 24 Hrs 06/17/18 06/18/18 06/18/18 07:35 02:35 04:56 WBC RBC Hgb Hct MCV MCH MCHC RDW RDW Differential Plt Count MPV Immature Gran % (Auto) Neut % (Auto) Lymph % (Auto) [place] % (Auto) Eos % (Auto) Baso % (Auto) Absolute Neuts (auto) Absolute Lymphs (auto) Total Counted Platelet Estimate Anisocytosis Sodium Potassium Chloride Carbon Dioxide Anion Gap BUN Creatinine Estim Creat Clear Calc Est GFR (MDRD) Af Amer Est GFR (MDRD) Non-Af BUN/Creatinine Ratio Glucose Calcium Troponin I < 0.015 0.015 Prealbumin Fl Crystal Path Review Reviewed Vancomycin Trough 06/18/18 06/18/18 06/18/18 07:30 07:30 07:30 WBC 4.2 L RBC 2.83 L Hgb 7.8 L Hct 24.5 L MCV 86.6 MCH 27.6 MCHC 31.8 L RDW 20.1 H RDW Differential 64.1 H Plt Count 69 L MPV 9.1 Immature Gran % (Auto) 0.900 Neut % (Auto) 83.5 H Lymph % (Auto) 11.8 L [place] % (Auto) 3.3 Eos % (Auto) 0.5 Baso % (Auto) 0.0 Absolute Neuts (auto) 3.5 Absolute Lymphs (auto) 0.50 L Total Counted Not Reportable Platelet Estimate MOD DEC Anisocytosis 2+ Sodium 144 Potassium 3.4 L Chloride 113 H Carbon Dioxide 22.0 Anion Gap 9 BUN 12 Creatinine 0.36 L Estim Creat Clear Calc 40.07 Est GFR (MDRD) Af Amer 227 Est GFR (MDRD) Non-Af 187 BUN/Creatinine Ratio 33.0 H Glucose 246 H Calcium 6.9 L Troponin I < 0.015 Prealbumin 10.7 L Fl Crystal Path Review Vancomycin Trough 06/18/18 14:40 WBC RBC Hgb Hct MCV MCH MCHC RDW RDW Differential Plt Count MPV Immature Gran % (Auto) Neut % (Auto) Lymph % (Auto) [place] % (Auto) Eos % (Auto) Baso % (Auto) Absolute Neuts (auto) Absolute Lymphs (auto) Total Counted Platelet Estimate Anisocytosis Sodium Potassium Chloride Carbon Dioxide Anion Gap BUN Creatinine Estim Creat Clear Calc Est GFR (MDRD) Af Amer Est GFR (MDRD) Non-Af BUN/Creatinine Ratio Glucose Calcium Troponin I Prealbumin Fl Crystal Path Review Vancomycin Trough 5.1 POC Glucose 06/18/18 06/18/18 06/17/18 16:24 11:35 21:37 POC Glucose 292 H 336 H 163 H Medical Necessity - Tobacco Use Smoking Status: Never smoker Tobacco Use: Non-smoker Assessment/Plan All Active Problems (Last Reviewed 03/24/18 @ 13:10 by Jennifer Bee) Abscess, wrist (Acute) Septic olecranon bursitis of right elbow (Acute) Skin necrosis (Acute) Stage IV pressure ulcer of sacral region (Acute) Infected decubitus ulcer (Acute) Olecranon bursitis of right elbow (Acute) Severe sepsis (Acute) Complicated urinary tract infection (Acute) Hematuria (Acute) Pressure ulcer of left buttock, stage 2 (Resolved) 1. Infected necrotic sacral pressure sore, probable Stage IV. 2. Bilateral ischial pressure sores, Stage IV. 3. Chronic osteomyelitis left ischial area. 4. Sepsis. 5. Diabetes mellitus. 6. History of UTI's. 7. Spinal stenosis. 8. Right elbow infection. 9. Anemia of chronic disease, acute on chronic. VAC applied to the left ischial and sacral wounds. Moist dressing applied to the right ischial wound secondary to some oozing. Continue Vancomycin and Zosyn. Operative cultures show Gram positive organisms and Gram negative organisms. A positive culture may necessitate antibiotic modification and long term care administrator IV antibiotics with the use of a PICC line. Pathology pending. Prealbumin was 10.7. Encourage nutritional supplementation with protein to help the healing process. Hgb low at 7.8. Preop it was 9.6. Will get PRBC. Has anemia of chronic disease, acute on chronic. There was some moderate blood loss from the surgery (about 350 ml) and this is combined with IV dilution for the decrease. Will recheck the right ischial wound tomorrow for placement of the VAC. When stable, will return to the [facility]. After discharge, [facility]up [facility].
[2018-06-18] MEDS: Latanoprost 0.005% 1 Bottle 1 DRP EACH EYE (21:10)
[2018-06-18] MEDS: Atorvastatin Calcium 10 MG Tablet 5 MG PO (21:11)
[2018-06-18 21:50] LABS: Bedside Glucose 353 mg/dL (70-110)
[2018-06-18] MEDS: 0.9% NaCl Peripheral Flush Adult/Peds IV (22:44)
[2018-06-19] VITALS (18 sets, daily range): BP systolic 111–130; BP diastolic 50–70; PULSE 106–133; RESP 16–18; TEMP 37–37.8; O2SAT 92–98
[2018-06-19 00:36] LABS: Bedside Glucose 254 mg/dL (70-110)
[2018-06-19] MEDS: Vancomycin IV 500 MG/100 ML BAG 100 MG IV ×2 (03:04→13:42)
[2018-06-19] MEDS: Metoprolol Tartrate 5 MG/5 ML Vial IV ×2 (05:47→18:56)
[2018-06-19] MEDS: 0.9% NaCl Peripheral Flush Adult/Peds IV ×2 (05:53→18:56)
[2018-06-19 06:55] LABS: Bedside Glucose 310 mg/dL (70-110)
[2018-06-19 07:43] LABS: Absolute Lymphocyte Count 0.45 X10^3/ul (0.83-4.51); Absolute Neutrophil Count 3.4 X10^3/uL (2.0-7.7); Basophil# 0.01 X10^3/uL; Basophil% 0.2 % (0-1); Eosinophil# 0.04 X10^3/uL; Hematocrit 20.9 % (37-47); Hemoglobin 6.6 g/dl (12.0-15.0); Lymphocyte # 0.45 X10^3/ul (4.0); Mean Corp Hgb Conc 31.6 g/gl (32-36); Mean Corpuscular Hgb 28.1 pg (27.0-32.0); Mean Corpuscular Volume 88.9 fL (81-99); Mean Platelet Vol. 8.8 fl (6.2-12.0); Monocyte# 0.11 X10^3/uL; Monocyte% 2.7 % (0-10); Neutrophil # 3.41 X10^3/uL (2.7-7.7); Neutrophil % 83.4 % (47-70); Platelet Count 82 K/mm3 (150-450); RBC Distribution Width CV 20.1 % (11.6-14.6); RBC Distribution Width SD 62.4 fl (35.1-43.9); Red Blood Count 2.35 M/mm3 (4.2-5.4); White Blood Count 4.1 K/mm3 (4.4-11.0)
[2018-06-19 07:50] LABS: Differential Indicated SCAN CRITERIA MET; POSITIVE COUNT NO; POSITIVE DIFFERENTIAL YES; POSITIVE MORPHOLOGY YES
[2018-06-19 07:56] LABS: Anion Gap 10 (5-15); BUN 8 mg/dL (7-18); BUN/Creat Ratio 28.4 RATIO (10-20); Calcium,Total 7.1 mg/dL (8.5-10.1); Chloride 109 mmol/L (98-107); Creatinine, Serum 0.28 mg/dL (0.55-1.02); EST Glomerular Filtration Rate 252 mL/min (>60); Est Glom Filt Rate - Afr Amer 304 mL/min (>60); Estimated Creatinine Clearance 40.07 ml/min; Glucose 290 mg/dL (74-106); Potassium 3.6 mmol/L (3.5-5.1); Sodium Level 141 mmol/L (136-145)
[2018-06-19] MEDS: Insulin Lispro 100 UNIT/ML INSULN.PEN SC ×4 (08:18→22:13)
[2018-06-19] MEDS: 0.9% Normal Saline 1,000 ML 125 ML IV (08:19)
[2018-06-19 08:47] LABS: Anisocytosis 2+; Differential Comment SCANNED; Microcytosis 1+
[2018-06-19 08:48] LABS: Macrocytosis 1+
[2018-06-19] MEDS: Ascorbic Acid 500 MG Tablet PO (09:55)
[2018-06-19] MEDS: Losartan Potassium 25 MG Tablet PO (09:56)
[2018-06-19] MEDS: NYSTATIN 500,000 UNIT/5 ML UDC 500000 UNIT PO ×4 (09:56→22:13)
[2018-06-19] MEDS: Allopurinol 100 MG Tablet 200 MG PO (09:56)
[2018-06-19] MEDS: METHENAMINE HIPPURATE 1 GM TABLET PO ×2 (09:56→22:13)
[2018-06-19] MEDS: Mirabegron 50 MG TAB.ER.24H PO (09:56)
[2018-06-19] MEDS: Timolol 0.5% 5ML OPTH.BTL 1 DRP EACH EYE (09:58)
[2018-06-19] MEDS: Multivitamins,Therapeutic Tablet 1 TABLET PO (09:59)
[2018-06-19] MEDS: Glucerna Shake 120 ML LIQUID PO ×4 (10:07→22:13)
[2018-06-19 12:46] LABS: Bedside Glucose 342 mg/dL (70-110)
--- NOTE | 2018-06-19 13:39 | PN.SURG_ITS ---
Patient Problems: Active and Suspected Problems (Last Reviewed 03/24/18 @ 13:10 by Jennifer Bee) Abscess, wrist (Acute) Septic olecranon bursitis of right elbow (Acute) Skin necrosis (Acute) Stage IV pressure ulcer of sacral region (Acute) with infected necrosis Infected decubitus ulcer (Acute) Olecranon bursitis of right elbow (Acute) Severe sepsis (Acute) Subjective: Postop #2 Patient is resting comfortably. - Physical Exam General: Alert, Oriented x3 HEENT: PERRLA, EOMI Oral: Moist Mucosa Abdomen: Soft, Non-Distended Skin: Ulcer/ Wound - right ischial wound is stable. No active bleeding seen. Redressed with saline gauze dressing. To have VAC applied Thursday. The left ischial and sacral wounds are stable with the VAC in place. Minimal drainage in the canister. Neurological: Cranial nerves II-XII grossly intact Psych/Mental Status: Normal Affect, Appropriate Vital Signs Temp Pulse Resp BP Pulse Ox 99 F 116 H 16 120/64 98 06/19/18 09:54 06/19/18 11:10 06/19/18 09:54 06/19/18 09:54 06/19/18 09:54 Oxygen Flow Rate (L/min) 2 Oxygen Delivery Method Room Air Weight: 151 lb 12.789 oz Body Mass Index (BMI) 27.9 Finger Stick Blood Glucose 154 Intake and Output for Last 24 Hours 06/17/18 06/18/18 06/19/18 23:59 23:59 23:59 Intake Total 6084.4 / 6084.4 3104 / 3104 1055 / 1055 Output Total 1840 / 1840 1540 / 1540 1150 / 1150 Balance 4244.4 / 4244.4 1564 / 1564 -95 / -95 Microbiology Past 72 Hours 06/17/18 14:56 Gram Stain - Final Tissue - Other Wound Culture - Preliminary GPC Poss Enterococcus sp Alpha hemolytic organism Beta hemolytic organism 06/17/18 14:56 Gram Stain - Final Bone - Other Wound Culture - Preliminary Staphylococcus aureus Gram positive organism Yeast Like Organism Anaerobic Culture - Preliminary Checking for anaerobes, further studies to follow. 06/17/18 14:56 Gram Stain - Final Tissue - Other Wound Culture - Preliminary Staphylococcus aureus Gram negative miranda Anaerobic Culture - Preliminary Checking for anaerobes, further studies to follow. 06/17/18 14:56 Gram Stain - Final Bone - Other Wound Culture - Preliminary Staphylococcus aureus Alpha hemolytic organism GPC Poss Enterococcus sp Anaerobic Culture - Preliminary Checking for anaerobes, further studies to follow. 06/17/18 14:56 Gram Stain - Final Tissue - Sacral Wound Culture - Preliminary Gram negative miranda Alpha hemolytic organism GPC Poss Enterococcus sp Staphylococcus aureus Alpha hemolytic organism#2 Gram negative miranda#2 Anaerobic Culture - Preliminary Checking for anaerobes, further studies to follow. 06/17/18 13:32 Gram Stain - Final Aspirate - Wrist Wound Culture - Final Meth. resistant Staph. aureus Anaerobic Culture - Preliminary Checking for anaerobes, further studies to follow. 06/17/18 07:35 Gram Stain - Final Fluid - Synovial (joint) Body Fluid Culture - Final Meth. resistant Staph. aureus Anaerobic Culture - Preliminary Checking for anaerobes, further studies to follow. 06/17/18 14:56 Gram Stain - Final Bone - Other Wound Culture - Preliminary GPC Poss Enterococcus sp Staphylococcus aureus Gram negative miranda Alpha hemolytic organism Anaerobic Culture - Preliminary Checking for anaerobes, further studies to follow. 06/17/18 07:28 Blood Culture - Preliminary Blood Culture (Wb) - Right Hand No growth in 48 hours. 06/17/18 07:20 Blood Culture - Preliminary Blood Culture (Wb) - Left Hand No growth in 48 hours. 06/17/18 05:15 Urine Culture - Final Urine Catheter - Catheter Proteus mirabilis 06/16/18 14:17 Blood Culture - Preliminary Blood Culture (Wb) - Anticubital Left Meth. resistant Staph. aureus Laboratory Tests Past 24 Hrs 06/18/18 06/19/18 06/19/18 14:40 06:50 06:50 WBC 4.1 L RBC 2.35 L Hgb 6.6 L Hct 20.9 L MCV 88.9 MCH 28.1 MCHC 31.6 L RDW 20.1 H RDW Differential 62.4 H Plt Count 82 L MPV 8.8 Immature Gran % (Auto) 1.700 H Neut % (Auto) 83.4 H Lymph % (Auto) 11.0 L [place] % (Auto) 2.7 Eos % (Auto) 1.0 Baso % (Auto) 0.2 Absolute Neuts (auto) 3.4 Absolute Lymphs (auto) 0.45 L Total Counted Not Reportable Differential Comment SCANNED Anisocytosis 2+ Microcytosis 1+ Macrocytosis 1+ Sodium 141 Potassium 3.6 Chloride 109 H Carbon Dioxide 22.0 Anion Gap 10 BUN 8 Creatinine 0.28 L Estim Creat Clear Calc 40.07 Est GFR (MDRD) Af Amer 304 Est GFR (MDRD) Non-Af 252 BUN/Creatinine Ratio 28.4 H Glucose 290 H Calcium 7.1 L Vancomycin Trough 5.1 POC Glucose 06/19/18 06/19/18 06/18/18 11:47 06:48 21:09 POC Glucose 342 H 310 H 353 H 06/18/18 06/18/18 16:24 06:56 POC Glucose 292 H 254 H Medical Necessity - Tobacco Use Smoking Status: Never smoker Tobacco Use: Non-smoker Assessment/Plan All Active Problems (Last Reviewed 03/24/18 @ 13:10 by Jennifer Bee) Abscess, wrist (Acute) Septic olecranon bursitis of right elbow (Acute) Skin necrosis (Acute) Stage IV pressure ulcer of sacral region (Acute) Infected decubitus ulcer (Acute) Olecranon bursitis of right elbow (Acute) Severe sepsis (Acute) Complicated urinary tract infection (Acute) Hematuria (Acute) Pressure ulcer of left buttock, stage 2 (Resolved) 1. Infected necrotic sacral pressure sore, probable Stage IV. 2. Bilateral ischial pressure sores, Stage IV. 3. Chronic osteomyelitis left ischial area. 4. Sepsis. 5. Diabetes mellitus. 6. History of UTI's. 7. Spinal stenosis. 8. Right elbow infection. 9. Anemia of chronic disease, acute on chronic. 10. MRSA. VAC in place to the left ischial and sacral wounds. Right ischial wound stable with no more active bleeding. Redressed with salne gauze. To have VAC applied on Thursday. Continue Vancomycin and Zosyn. Operative cultures show MRSA, Staphylococcus aureus, Enterococcus, and Gram negative rods. Patient will need skilled nursing IV antibiotics with a PICC line. Infectious Diseases to evaluate. Pathology pending. Prealbumin was 10.7. Encourage nutritional supplementation with protein to help the healing process. Hgb decreased to 6.6 from 7.8. Preop it was 9.6. Patient did not get PRBC yesterday. Will be transfused today. Has anemia of chronic disease, acute on chronic. There was some moderate blood loss from the surgery (about 350 ml) and this is combined with IV dilution for the decrease. When stable, will return to the [facility]. Anticipate Thursday. After discharge, [facility]up [facility].
[2018-06-19] MEDS: HYDROcodone Bitartrate/Apap 5/325 Tablet PO ×3 (13:40→22:12)
--- NOTE | 2018-06-19 14:05 | PCM.PROGNOTE ---
<Brittany Parker - Last Filed: 06/19/18 14:29> Patient Problems: Active and Suspected Problems (Last Reviewed 03/24/18 @ 13:10 by Jennifer Bee) Abscess, wrist (Acute) Septic olecranon bursitis of right elbow (Acute) Skin necrosis (Acute) Stage IV pressure ulcer of sacral region (Acute) with infected necrosis Infected decubitus ulcer (Acute) Olecranon bursitis of right elbow (Acute) Severe sepsis (Acute) Subjective: Patient seen and examined. Denies current complaints. No acute events overnight. - Physical Exam General: Alert, Oriented x3, Cooperative HEENT: Atraumatic, PERRLA, EOMI, Normocephalic Neck: Supple, No JVD, Negative Carotid Bruits Lungs: Clear to auscultation, Normal air movement Cardiovascular: Regular rate, Regular Rhythm, Normal S1, Normal S2, No murmurs Abdomen: Bowel Sounds Present, Soft, Non Tender, Non-Distended Extremities: No clubbing, No cyanosis, No edema, Capillary Refill Less than 3 Seconds Skin: No rashes, No breakdown, - - Bilateral stage III-IV ischial decubitus ulcers, stage IV sacral pressure ulcer, right elbow erythema-status post aspiration. Dressings intact. Musculoskeletal: No Tenderness to Palpation of Joints or Extremities Neurological: Cranial nerves II-XII grossly intact, Neuro grossly intact Psych/Mental Status: Normal Affect, Appropriate Vital Signs Temp Pulse Resp BP Pulse Ox 99 F 116 H 16 120/64 98 06/19/18 09:54 06/19/18 11:10 06/19/18 09:54 06/19/18 09:54 06/19/18 09:54 Oxygen Flow Rate (L/min) 2 Oxygen Delivery Method Room Air Weight: 151 lb 12.789 oz Body Mass Index (BMI) 27.9 Finger Stick Blood Glucose 154 Intake and Output for Last 24 Hours 06/17/18 06/18/18 06/19/18 23:59 23:59 23:59 Intake Total 6084.4 / 6084.4 3104 / 3104 2040 / 2040 Output Total 1840 / 1840 1540 / 1540 1150 / 1150 Balance 4244.4 / 4244.4 1564 / 1564 891 / 891 Microbiology Past 72 Hours 06/17/18 14:56 Gram Stain - Final Tissue - Other Wound Culture - Preliminary GPC Poss Enterococcus sp Alpha hemolytic organism Beta hemolytic organism 06/17/18 14:56 Gram Stain - Final Bone - Other Wound Culture - Preliminary Staphylococcus aureus Gram positive organism Yeast Like Organism Anaerobic Culture - Preliminary Checking for anaerobes, further studies to follow. 06/17/18 14:56 Gram Stain - Final Tissue - Other Wound Culture - Preliminary Staphylococcus aureus Gram negative miranda Anaerobic Culture - Preliminary Checking for anaerobes, further studies to follow. 06/17/18 14:56 Gram Stain - Final Bone - Other Wound Culture - Preliminary Staphylococcus aureus Alpha hemolytic organism GPC Poss Enterococcus sp Anaerobic Culture - Preliminary Checking for anaerobes, further studies to follow. 06/17/18 14:56 Gram Stain - Final Tissue - Sacral Wound Culture - Preliminary Gram negative miranda Alpha hemolytic organism GPC Poss Enterococcus sp Staphylococcus aureus Alpha hemolytic organism#2 Gram negative miranda#2 Anaerobic Culture - Preliminary Checking for anaerobes, further studies to follow. 06/17/18 13:32 Gram Stain - Final Aspirate - Wrist Wound Culture - Final Meth. resistant Staph. aureus Anaerobic Culture - Preliminary Checking for anaerobes, further studies to follow. 06/17/18 07:35 Gram Stain - Final Fluid - Synovial (joint) Body Fluid Culture - Final Meth. resistant Staph. aureus Anaerobic Culture - Preliminary Checking for anaerobes, further studies to follow. 06/17/18 14:56 Gram Stain - Final Bone - Other Wound Culture - Preliminary GPC Poss Enterococcus sp Staphylococcus aureus Gram negative miranda Alpha hemolytic organism Anaerobic Culture - Preliminary Checking for anaerobes, further studies to follow. 06/17/18 07:28 Blood Culture - Preliminary Blood Culture (Wb) - Right Hand No growth in 48 hours. 06/17/18 07:20 Blood Culture - Preliminary Blood Culture (Wb) - Left Hand No growth in 48 hours. 06/17/18 05:15 Urine Culture - Final Urine Catheter - Catheter Proteus mirabilis 06/16/18 14:17 Blood Culture - Preliminary Blood Culture (Wb) - Anticubital Left Meth. resistant Staph. aureus Laboratory Tests Past 24 Hrs 06/18/18 06/19/18 06/19/18 14:40 06:50 06:50 WBC 4.1 L RBC 2.35 L Hgb 6.6 L Hct 20.9 L MCV 88.9 MCH 28.1 MCHC 31.6 L RDW 20.1 H RDW Differential 62.4 H Plt Count 82 L MPV 8.8 Immature Gran % (Auto) 1.700 H Neut % (Auto) 83.4 H Lymph % (Auto) 11.0 L [place] % (Auto) 2.7 Eos % (Auto) 1.0 Baso % (Auto) 0.2 Absolute Neuts (auto) 3.4 Absolute Lymphs (auto) 0.45 L Total Counted Not Reportable Differential Comment SCANNED Anisocytosis 2+ Microcytosis 1+ Macrocytosis 1+ Sodium 141 Potassium 3.6 Chloride 109 H Carbon Dioxide 22.0 Anion Gap 10 BUN 8 Creatinine 0.28 L Estim Creat Clear Calc 40.07 Est GFR (MDRD) Af Amer 304 Est GFR (MDRD) Non-Af 252 BUN/Creatinine Ratio 28.4 H Glucose 290 H Calcium 7.1 L Vancomycin Trough 5.1 POC Glucose 06/19/18 06/19/18 06/18/18 11:47 06:48 21:09 POC Glucose 342 H 310 H 353 H 06/18/18 06/18/18 16:24 06:56 POC Glucose 292 H 254 H Medical Necessity - Tobacco Use Smoking Status: Never smoker Tobacco Use: Non-smoker Assessment/Plan All Active Problems (Last Reviewed 03/24/18 @ 13:10 by Jennifer Bee) Abscess, wrist (Acute) Septic olecranon bursitis of right elbow (Acute) Skin necrosis (Acute) Stage IV pressure ulcer of sacral region (Acute) Infected decubitus ulcer (Acute) Olecranon bursitis of right elbow (Acute) Severe sepsis (Acute) Complicated urinary tract infection (Acute) Hematuria (Acute) Pressure ulcer of left buttock, stage 2 (Resolved) 1. Severe sepsis secondary to infected decubitus ulcer of the sacrum as well as olecranon bursitis and Staphylococcus aureus bacteremia-lactic acid 5.7 on admission, resolved. Continue to treat infectious processes. Blood cultures positive for Staphylococcus aureus 06/16/2018. Repeat blood cultures show no growth in 48 hours. 2. Infected/necrotic decubitus sacral ulcer-history of multiple chronic wounds including stable chronic bilateral ischial ulcers stage IV with chronic osteomyelitis left ischial area. Dr. Myles consulted, patient underwent wound debridement of coccyx ulcer 06/17/18. Wound RN consult. Continue IV vancomycin and IV Zosyn. Patient had wound VAC applied 06/18/18. Sacral tissue culture growing multiple organisms including gram-negative miranda, alphahemolytic organism, possible enterococcus, Staphylococcus aureus. Final pending. Consult ID for discharge antibiotics recommendations given extensive wounds with multiple organisms. Place PICC line. 3. Olecranon bursitis-IV vancomycin and IV Zosyn as noted above. Dr. Aquino consulted. MRI shows olecranon bursitis with fluid collection. Possible abscess. Bursa was aspirated and culture sent. Culture of wrist and synovial joint fluid showing MRSA. Patient underwent open irrigation and debridement of right elbow bursa and subcutaneous abscess of wrist 06/17/[address] Aquino. Dressing intact. Antibiotics and ID consult as noted above. 4. Type 2 diabetes [id number] ACHS with sliding scale insulin. 5. Hypertension-continue home losartan regimen. 6. Hyperlipidemia-continue statin. 7. Spinal stenosis and peripheral neuropathy with neurogenic bladder, paraplegia-chronic Rea catheter. PT/OT. Resides at SNF. 8. Acute blood loss anemia secondary to wound debridement on anemia of chronic disease-2 units PRBC ordered. Hgb 6.6. Trend CBC. DVT prophylaxis-Lovenox subcu CODE STATUS: Patient's wish to change her CODE STATUS from DNR CCA to full code. She reports she is agreeable to chest compressions but does not want to long-term mechanical ventilation. This patient was seen by AVELINO Fuchs under the supervision of Dr. Gray. <Farhad Gray - Last Filed: 06/19/18 14:55> Subjective: Patient denies back pain. Colostomy is functioning. T-max 100.1 Fahrenheit last night. Objective: General: Alert, Oriented x3, Cooperative HEENT: Atraumatic, PERRLA, EOMI, Normocephalic Neck: Supple, No JVD, Negative Carotid Bruits Lungs: Clear to auscultation, Normal air movement Cardiovascular: Regular rate, Regular Rhythm, Normal S1, Normal S2, No murmurs Abdomen: Bowel Sounds Present, Soft, Non Tender, Non-Distended Extremities: No clubbing, No cyanosis, No edema, Capillary Refill Less than 3 Seconds Skin: Bilateral stage IV ischial decubitus ulcers, stage IV sacral pressure ulcer, right elbow erythema-status post aspiration. Dressings intact. Musculoskeletal: No Tenderness to Palpation of Joints or Extremities Neurological: Cranial nerves II-XII grossly intact, contracture of lower extremities Psych/Mental Status: Normal Affect, Appropriate - Physical Exam Vital Signs Temp Pulse Resp BP Pulse Ox 99 F 116 H 16 120/64 98 06/19/18 09:54 06/19/18 11:10 06/19/18 09:54 06/19/18 09:54 06/19/18 09:54 Oxygen Flow Rate (L/min) 2 Oxygen Delivery Method Room Air Weight: 151 lb 12.789 oz Body Mass Index (BMI) 27.9 Finger Stick Blood Glucose 154 Intake and Output for Last 24 Hours 06/17/18 06/18/18 06/19/18 23:59 23:59 23:59 Intake Total 6084.4 / 6084.4 3104 / 3104 2041 / 2041 Output Total 1840 / 1840 1540 / 1540 1150 / 1150 Balance 4244.4 / 4244.4 1564 / 1564 891 / 891 Microbiology Past 72 Hours 06/17/18 14:56 Gram Stain - Final Tissue - Other Wound Culture - Preliminary GPC Poss Enterococcus sp Alpha hemolytic organism Beta hemolytic organism 06/17/18 14:56 Gram Stain - Final Bone - Other Wound Culture - Preliminary Staphylococcus aureus Gram positive organism Yeast Like Organism Anaerobic Culture - Preliminary Checking for anaerobes, further studies to follow. 06/17/18 14:56 Gram Stain - Final Tissue - Other Wound Culture - Preliminary Staphylococcus aureus Gram negative miranda Anaerobic Culture - Preliminary Checking for anaerobes, further studies to follow. 06/17/18 14:56 Gram Stain - Final Bone - Other Wound Culture - Preliminary Staphylococcus aureus Alpha hemolytic organism GPC Poss Enterococcus sp Anaerobic Culture - Preliminary Checking for anaerobes, further studies to follow. 06/17/18 14:56 Gram Stain - Final Tissue - Sacral Wound Culture - Preliminary Gram negative miranda Alpha hemolytic organism GPC Poss Enterococcus sp Staphylococcus aureus Alpha hemolytic organism#2 Gram negative miranda#2 Anaerobic Culture - Preliminary Checking for anaerobes, further studies to follow. 06/17/18 13:32 Gram Stain - Final Aspirate - Wrist Wound Culture - Final Meth. resistant Staph. aureus Anaerobic Culture - Preliminary Checking for anaerobes, further studies to follow. 06/17/18 07:35 Gram Stain - Final Fluid - Synovial (joint) Body Fluid Culture - Final Meth. resistant Staph. aureus Anaerobic Culture - Preliminary Checking for anaerobes, further studies to follow. 06/17/18 14:56 Gram Stain - Final Bone - Other Wound Culture - Preliminary GPC Poss Enterococcus sp Staphylococcus aureus Gram negative miranda Alpha hemolytic organism Anaerobic Culture - Preliminary Checking for anaerobes, further studies to follow. 06/17/18 07:28 Blood Culture - Preliminary Blood Culture (Wb) - Right Hand No growth in 48 hours. 06/17/18 07:20 Blood Culture - Preliminary Blood Culture (Wb) - Left Hand No growth in 48 hours. 06/17/18 05:15 Urine Culture - Final Urine Catheter - Catheter Proteus mirabilis 06/16/18 14:17 Blood Culture - Preliminary Blood Culture (Wb) - Anticubital Left Meth. resistant Staph. aureus Laboratory Tests Past 24 Hrs 06/18/18 06/19/18 06/19/18 14:40 06:50 06:50 WBC 4.1 L RBC 2.35 L Hgb 6.6 L Hct 20.9 L MCV 88.9 MCH 28.1 MCHC 31.6 L RDW 20.1 H RDW Differential 62.4 H Plt Count 82 L MPV 8.8 Immature Gran % (Auto) 1.700 H Neut % (Auto) 83.4 H Lymph % (Auto) 11.0 L [place] % (Auto) 2.7 Eos % (Auto) 1.0 Baso % (Auto) 0.2 Absolute Neuts (auto) 3.4 Absolute Lymphs (auto) 0.45 L Total Counted Not Reportable Differential Comment SCANNED Anisocytosis 2+ Microcytosis 1+ Macrocytosis 1+ Sodium 141 Potassium 3.6 Chloride 109 H Carbon Dioxide 22.0 Anion Gap 10 BUN 8 Creatinine 0.28 L Estim Creat Clear Calc 40.07 Est GFR (MDRD) Af Amer 304 Est GFR (MDRD) Non-Af 252 BUN/Creatinine Ratio 28.4 H Glucose 290 H Calcium 7.1 L Vancomycin Trough 5.1 POC Glucose 06/19/18 06/19/18 06/18/18 11:47 06:48 21:09 POC Glucose 342 H 310 H 353 H 06/18/18 06/18/18 16:24 06:56 POC Glucose 292 H 254 H Assessment/Plan This patient was seen in conjunction with [employer] SCI[employer] PROFESSORBrittany. I have independently interviewed and examined the patient and reviewed pertinent history, examination findings, laboratory and plan of management. I have reviewed the note and agree with the documented findings with the few additional points. In brief, patient is admitted for severe sepsis secondary to infected decubitus ulcer of sacrum, chronic B/L ischial ulcers stage IV. patient has Right septic bursitis of the elbow and right wrist abscess which required open irrigation and debridement of right elbow bursa and drainage of subcutaneous abscess of right wrist by Dr. Garza Patient is on broad-spectrum IV antibiotic vancomycin and Zosyn. Dr. Myles and Dr. Garza consult appreciated. Patient had a wide excision of decubitus ulcer as mentioned above. The patient has other multiple comorbidities including neurogenic bladder with chronic suprapubic catheter, rectal prolapse with colostomy, diabetes mellitus type 2 with diabetic neuropathy, chronic osteitis of left ischial area, spinal stenosis and anemia of chronic disease. ID has been consulted for positive tissue culture of gram-negative rods, alphahemolytic organism, gram-positive cocci possible enterococcus and staph aureus. Gram-positive organism which are still preliminary. ID consult. H&H 6.6/21. 2 unit of PRBC ordered. I have discussed my assessment with Brittany GOLDSMITH and orders have been reviewed. Code Visit Inpatient E&M: 94466 Subs Hosp L3
[2018-06-19] MEDS: Tolterodine Tartrate 4 MG CAP.SA PO (16:12)
[2018-06-19 18:25] LABS: Bedside Glucose 360 mg/dL (70-110)
[2018-06-19] MEDS: Atorvastatin Calcium 10 MG Tablet 5 MG PO (22:12)
[2018-06-19] MEDS: Latanoprost 0.005% 1 Bottle 1 DRP EACH EYE (22:14)
[2018-06-19 22:46] LABS: Bedside Glucose 363 mg/dL (70-110)
[2018-06-20] VITALS (20 sets, daily range): BP systolic 128–153; BP diastolic 61–73; PULSE 95–121; RESP 16–18; TEMP 36.9–38.1; O2SAT 92–96
[2018-06-20] MEDS: Vancomycin IV 500 MG/100 ML BAG 100 MG IV ×2 (03:06→13:44)
[2018-06-20] MEDS: 0.9% Normal Saline 1,000 ML 125 ML IV ×3 (03:08→21:52)
[2018-06-20] MEDS: HYDROcodone Bitartrate/Apap 5/325 Tablet PO ×3 (05:25→17:02)
[2018-06-20 05:47] LABS: Erythrocyte Sedimentation Rate 83 mm/hr (0-30)
[2018-06-20 05:50] LABS: Hematocrit 29.6 % (37-47); Hemoglobin 9.8 g/dl (12.0-15.0); Mean Corp Hgb Conc 33.1 g/gl (32-36); Mean Corpuscular Hgb 29.1 pg (27.0-32.0); Mean Corpuscular Volume 87.8 fL (81-99); Mean Platelet Vol. 9.6 fl (6.2-12.0); Platelet Count 101 K/mm3 (150-450); RBC Distribution Width CV 17.9 % (11.6-14.6); RBC Distribution Width SD 55.6 fl (35.1-43.9); Red Blood Count 3.37 M/mm3 (4.2-5.4); White Blood Count 4.2 K/mm3 (4.4-11.0)
[2018-06-20 06:19] LABS: Anion Gap 11 (5-15); BUN 8 mg/dL (7-18); BUN/Creat Ratio 20.5 RATIO (10-20); Calcium,Total 7.4 mg/dL (8.5-10.1); Chloride 107 mmol/L (98-107); Creatinine, Serum 0.39 mg/dL (0.55-1.02); EST Glomerular Filtration Rate 173 mL/min (>60); Est Glom Filt Rate - Afr Amer 209 mL/min (>60); Estimated Creatinine Clearance 40.07 ml/min; Glucose 298 mg/dL (74-106); Potassium 3.8 mmol/L (3.5-5.1); Sodium Level 140 mmol/L (136-145)
[2018-06-20 06:35] LABS: Scan Indicated on CBC? Y/N NO
[2018-06-20 07:11] LABS: Bedside Glucose 281 mg/dL (70-110)
[2018-06-20] MEDS: Insulin Lispro 100 UNIT/ML INSULN.PEN SC ×4 (07:42→21:54)
[2018-06-20] MEDS: NYSTATIN 500,000 UNIT/5 ML UDC 500000 UNIT PO ×4 (09:23→21:52)
[2018-06-20] MEDS: Enoxaparin 40 MG/0.4 ML Syringe SC (09:23)
[2018-06-20] MEDS: Mirabegron 50 MG TAB.ER.24H PO (09:23)
[2018-06-20] MEDS: Metoprolol Tartrate 25 MG Tablet PO ×2 (09:23→21:52)
[2018-06-20] MEDS: Losartan Potassium 25 MG Tablet PO (09:23)
[2018-06-20] MEDS: METHENAMINE HIPPURATE 1 GM TABLET PO ×2 (09:23→21:52)
[2018-06-20] MEDS: Allopurinol 100 MG Tablet 200 MG PO (09:23)
[2018-06-20] MEDS: Ascorbic Acid 500 MG Tablet PO (09:23)
[2018-06-20] MEDS: Multivitamins,Therapeutic Tablet 1 TABLET PO (09:23)
[2018-06-20] MEDS: Glucerna Shake 120 ML LIQUID PO ×3 (09:24→21:53)
[2018-06-20] MEDS: Timolol 0.5% 5ML OPTH.BTL 1 DRP EACH EYE (09:24)
[2018-06-20] MEDS: Insulin Lispro 100 UNIT/ML INSULN.PEN 10 UNIT SC ×2 (10:57→16:57)
[2018-06-20] MEDS: Gabapentin 100 MG Capsule PO ×2 (10:57→16:58)
[2018-06-20 11:11] LABS: Bedside Glucose 381 mg/dL (70-110)
[2018-06-20] MEDS: Doxycycline 100 MG CAPSULE PO ×2 (13:44→21:52)
--- NOTE | 2018-06-20 13:54 | PCM.PROGNOTE ---
<Brittany Parker - Last Filed: 06/20/18 14:03> Patient Problems: Active and Suspected Problems (Last Reviewed 03/24/18 @ 13:10 by Jennifer Bee) Infected decubitus ulcer (Acute) Olecranon bursitis of right elbow (Acute) Severe sepsis (Acute) Subjective: Patient seen and examined. No acute events overnight. Denies current complaints. - Physical Exam General: Alert, Oriented x3, Cooperative HEENT: Atraumatic, PERRLA, EOMI, Normocephalic Neck: Supple, No JVD, Negative Carotid Bruits Lungs: Clear to auscultation, Normal air movement Cardiovascular: Regular rate, Regular Rhythm, Normal S1, Normal S2, No murmurs Abdomen: Bowel Sounds Present, Soft, Non Tender, Non-Distended Extremities: No clubbing, No cyanosis, No edema, Capillary Refill Less than 3 Seconds Skin: No rashes, No breakdown, - - Bilateral stage III-IV ischial decubitus ulcers, stage IV sacral pressure ulcer, right elbow erythema-status post aspiration. Dressings intact. Musculoskeletal: No Tenderness to Palpation of Joints or Extremities Neurological: Cranial nerves II-XII grossly intact, Neuro grossly intact Psych/Mental Status: Normal Affect, Appropriate Vital Signs Temp Pulse Resp BP Pulse Ox 99 F 108 H 16 136/70 H 95 06/20/18 09:03 06/20/18 11:19 06/20/18 09:03 06/20/18 09:03 06/20/18 09:03 Oxygen Flow Rate (L/min) 2 Oxygen Delivery Method Room Air Weight: 151 lb 12.789 oz Body Mass Index (BMI) 27.9 Finger Stick Blood Glucose 154 Intake and Output for Last 24 Hours 06/18/18 06/19/18 06/20/18 23:59 23:59 23:59 Intake Total 3104 / 3104 2281 / 2281 3316 / 3316 Output Total 1540 / 1540 1900 / 1900 1400 / 1400 Balance 1564 / 1564 381 / 381 1916 / 1916 Microbiology Past 72 Hours 06/17/18 14:56 Gram Stain - Final Tissue - Other Wound Culture - Preliminary Vancomycin Resist. E. faecalis Streptococcus pseudoporcinus Staphylococcus aureus Beta hemolytic organism 06/17/18 14:56 Gram Stain - Final Bone - Other Wound Culture - Preliminary Meth. resistant Staph. aureus Staphylococcus epidermidis Alpha hemolytic organism Yeast Like Organism Anaerobic Culture - Preliminary Checking for anaerobes, further studies to follow. 06/17/18 14:56 Gram Stain - Final Tissue - Other Wound Culture - Preliminary Meth. resistant Staph. aureus Proteus mirabilis GPC Poss Enterococcus sp Beta hemolytic organism Anaerobic Culture - Preliminary Checking for anaerobes, further studies to follow. 06/17/18 14:56 Gram Stain - Final Bone - Other Wound Culture - Preliminary Meth. resistant Staph. aureus Streptococcus mitis/ oralis GPC Poss Enterococcus sp Anaerobic Culture - Preliminary Checking for anaerobes, further studies to follow. 06/17/18 14:56 Gram Stain - Final Bone - Other Wound Culture - Preliminary Vancomycin Resist. E. faecalis Meth. resistant Staph. aureus Proteus mirabilis Actinomyces odontolyticus Enterococcus raffinosus Gram negative miranda Anaerobic Culture - Preliminary Checking for anaerobes, further studies to follow. 06/17/18 14:56 Gram Stain - Final Tissue - Sacral Wound Culture - Preliminary Proteus mirabilis Streptococcus mitis/ oralis Vancomycin Resist. E. faecalis Meth. resistant Staph. aureus Enterococcus raffinosus Gram negative miranda#2 Anaerobic Culture - Preliminary Checking for anaerobes, further studies to follow. 06/17/18 13:32 Gram Stain - Final Aspirate - Wrist Wound Culture - Final Meth. resistant Staph. aureus Anaerobic Culture - Preliminary Checking for anaerobes, further studies to follow. 06/17/18 07:35 Gram Stain - Final Fluid - Synovial (joint) Body Fluid Culture - Final Meth. resistant Staph. aureus Anaerobic Culture - Preliminary Checking for anaerobes, further studies to follow. 06/17/18 07:28 Blood Culture - Preliminary Blood Culture (Wb) - Right Hand No growth in 48 hours. 06/17/18 07:20 Blood Culture - Preliminary Blood Culture (Wb) - Left Hand No growth in 48 hours. 06/17/18 05:15 Urine Culture - Final Urine Catheter - Catheter Proteus mirabilis 06/16/18 14:17 Blood Culture - Preliminary Blood Culture (Wb) - Anticubital Left Meth. resistant Staph. aureus Laboratory Tests Past 24 Hrs 06/17/18 06/20/18 06/20/18 13:00 04:50 04:50 WBC 4.2 L RBC 3.37 L Hgb 9.8 L Hct 29.6 L MCV 87.8 MCH 29.1 MCHC 33.1 RDW 17.9 H RDW Differential 55.6 H Plt Count 101 L MPV 9.6 ESR 83 H Sodium 140 Potassium 3.8 Chloride 107 Carbon Dioxide 22.0 Anion Gap 11 BUN 8 Creatinine 0.39 L Estim Creat Clear Calc 40.07 Est GFR (MDRD) Af Amer 209 Est GFR (MDRD) Non-Af 173 BUN/Creatinine Ratio 20.5 H Glucose 298 H Calcium 7.4 L C-React Prot Ext Range 208.00 H Blood Type B POSITIVE Antibody Screen NEGATIVE Crossmatch See Detail POC Glucose 06/20/18 06/20/18 06/19/18 10:55 07:02 22:09 POC Glucose 381 H 281 H 363 H 06/19/18 16:08 POC Glucose 360 H Medical Necessity - Tobacco Use Smoking Status: Never smoker Tobacco Use: Non-smoker Assessment/Plan All Active Problems (Last Reviewed 03/24/18 @ 13:10 by Jennifer Bee) Abscess, wrist (Acute) Septic olecranon bursitis of right elbow (Acute) Skin necrosis (Acute) Stage IV pressure ulcer of sacral region (Acute) Infected decubitus ulcer (Acute) Olecranon bursitis of right elbow (Acute) Severe sepsis (Acute) Complicated urinary tract infection (Acute) Hematuria (Acute) Pressure ulcer of left buttock, stage 2 (Resolved) 1. Severe sepsis secondary to multi-organism infected decubitus ulcer of the sacrum as well as olecranon bursitis and Staphylococcus aureus bacteremia-lactic acid 5.7 on admission, resolved. Continue to treat infectious processes. Blood cultures positive for Staphylococcus aureus 06/16/2018. Repeat blood cultures show no growth in 48 hours. 2. Infected/necrotic decubitus sacral ulcer-history of multiple chronic wounds including stable chronic bilateral ischial ulcers stage IV with chronic osteomyelitis left ischial area. Dr. Myles consulted, patient underwent wound debridement of coccyx ulcer 06/17/18. Wound RN consult. Continue IV vancomycin, IV Unasyn, doxycycline, IV Diflucan and IV Rocephin. Patient had wound VAC applied 06/18/18. Sacral tissue culture growing multiple organisms including Proteus mirabilis, streptococcal mitis, VRE, MRSA, enterococcus raffinosus. Left ischial bone culture positive for MRSA, Staphylococcus epidermidis and alpha hemolytic organism. ID consult pending. PICC line placed 06/19/18. 3. Olecranon bursitis-IV vancomycin and IV Zosyn as noted above. Dr. Aquino consulted. MRI shows olecranon bursitis with fluid collection. Possible abscess. Bursa was aspirated and culture sent. Culture of wrist and synovial joint fluid showing MRSA. Patient underwent open irrigation and debridement of right elbow bursa and subcutaneous abscess of wrist 06/17/[address] Aquino. Dressing intact. Antibiotics and ID consult as noted above. 4. Type 2 diabetes [id number] ACHS with sliding scale insulin. 5. Hypertension-continue home losartan regimen. 6. Hyperlipidemia-continue statin. 7. Spinal stenosis and peripheral neuropathy with neurogenic bladder, paraplegia-chronic Rea catheter. PT/OT. Resides at [facility]. 8. Acute blood loss anemia secondary to wound debridement on anemia of chronic disease-2 units PRBC ordered for Hgb 6.6. Repeat hemoglobin this morning 9.8. Trend CBC. DVT prophylaxis-Lovenox subcu CODE STATUS: Patient's wish to change her CODE STATUS from DNR CCA to full code. She reports she is agreeable to chest compressions but does not want to long-term mechanical ventilation. This patient was seen by AVELINO Fuchs under the supervision of Dr. Gray. <Farhad Gray - Last Filed: 06/20/18 18:44> Subjective: Patient wound culture reviewed. Shows multiple organisms including VRE, Enterococcus faecalis, Streptococcus pseudoporcinus, MRSA, alpha hemolytic organism, H-like organism, staphylococcal epidermidis, Proteus mirabilis. No fever last night. Objective: General: Alert, Oriented x3, Cooperative HEENT: Atraumatic, PERRLA, EOMI, Normocephalic Neck: Supple, No JVD, Negative Carotid Bruits Lungs: Clear to auscultation, Normal air movement Cardiovascular: Regular rate, Regular Rhythm, Normal S1, Normal S2, No murmurs Abdomen: Bowel Sounds Present, Soft, Non Tender, Non-Distended. Colostomy functioning. : Patient has suprapubic catheter Extremities: No clubbing, No cyanosis, No edema, Capillary Refill Less than 3 Seconds Skin: - Bilateral stage III-IV ischial decubitus ulcers, stage IV sacral pressure ulcer, right elbow erythema-status post aspiration. Dressings intact. Musculoskeletal: No Tenderness to Palpation of Joints or Extremities Neurological: Cranial nerves II-XII grossly intact, Neuro grossly intact Psych/Mental Status: Normal Affect, Appropriate - Physical Exam Vital Signs Temp Pulse Resp BP Pulse Ox 98.9 F 95 16 153/73 H 96 06/20/18 15:00 06/20/18 15:02 06/20/18 15:00 06/20/18 15:00 06/20/18 15:00 Oxygen Flow Rate (L/min) 2 Oxygen Delivery Method Room Air Weight: 151 lb 12.789 oz Body Mass Index (BMI) 27.9 Finger Stick Blood Glucose 154 Intake and Output for Last 24 Hours 06/18/18 06/19/18 06/20/18 23:59 23:59 23:59 Intake Total 3104 / 3104 2281 / 2281 4382 / 4382 Output Total 1540 / 1540 1900 / 1900 2200 / 2200 Balance 1564 / 1564 381 / 381 2182 / 2182 Microbiology Past 72 Hours 06/17/18 14:56 Gram Stain - Final Tissue - Other Wound Culture - Preliminary Vancomycin Resist. E. faecalis Streptococcus pseudoporcinus Staphylococcus aureus Beta hemolytic organism 06/17/18 14:56 Gram Stain - Final Bone - Other Wound Culture - Preliminary Meth. resistant Staph. aureus Staphylococcus epidermidis Alpha hemolytic organism Yeast Like Organism Anaerobic Culture - Preliminary Checking for anaerobes, further studies to follow. 06/17/18 14:56 Gram Stain - Final Tissue - Other Wound Culture - Preliminary Meth. resistant Staph. aureus Proteus mirabilis GPC Poss Enterococcus sp Beta hemolytic organism Anaerobic Culture - Preliminary Checking for anaerobes, further studies to follow. 06/17/18 14:56 Gram Stain - Final Bone - Other Wound Culture - Preliminary Meth. resistant Staph. aureus Streptococcus mitis/ oralis GPC Poss Enterococcus sp Anaerobic Culture - Preliminary Checking for anaerobes, further studies to follow. 06/17/18 14:56 Gram Stain - Final Bone - Other Wound Culture - Preliminary Vancomycin Resist. E. faecalis Meth. resistant Staph. aureus Proteus mirabilis Actinomyces odontolyticus Enterococcus raffinosus Gram negative miranda Anaerobic Culture - Preliminary Checking for anaerobes, further studies to follow. 06/17/18 14:56 Gram Stain - Final Tissue - Sacral Wound Culture - Preliminary Proteus mirabilis Streptococcus mitis/ oralis Vancomycin Resist. E. faecalis Meth. resistant Staph. aureus Enterococcus raffinosus Gram negative miranda#2 Anaerobic Culture - Preliminary Checking for anaerobes, further studies to follow. 06/17/18 13:32 Gram Stain - Final Aspirate - Wrist Wound Culture - Final Meth. resistant Staph. aureus Anaerobic Culture - Preliminary Checking for anaerobes, further studies to follow. 06/17/18 07:35 Gram Stain - Final Fluid - Synovial (joint) Body Fluid Culture - Final Meth. resistant Staph. aureus Anaerobic Culture - Preliminary Checking for anaerobes, further studies to follow. 06/17/18 07:28 Blood Culture - Preliminary Blood Culture (Wb) - Right Hand No growth in 48 hours. 06/17/18 07:20 Blood Culture - Preliminary Blood Culture (Wb) - Left Hand No growth in 48 hours. 06/17/18 05:15 Urine Culture - Final Urine Catheter - Catheter Proteus mirabilis 06/16/18 14:17 Blood Culture - Preliminary Blood Culture (Wb) - Anticubital Left Meth. resistant Staph. aureus Laboratory Tests Past 24 Hrs 06/17/18 06/20/18 06/20/18 13:00 04:50 04:50 WBC 4.2 L RBC 3.37 L Hgb 9.8 L Hct 29.6 L MCV 87.8 MCH 29.1 MCHC 33.1 RDW 17.9 H RDW Differential 55.6 H Plt Count 101 L MPV 9.6 ESR 83 H Sodium 140 Potassium 3.8 Chloride 107 Carbon Dioxide 22.0 Anion Gap 11 BUN 8 Creatinine 0.39 L Estim Creat Clear Calc 40.07 Est GFR (MDRD) Af Amer 209 Est GFR (MDRD) Non-Af 173 BUN/Creatinine Ratio 20.5 H Glucose 298 H Calcium 7.4 L C-React Prot Ext Range 208.00 H Blood Type B POSITIVE Antibody Screen NEGATIVE Crossmatch See Detail POC Glucose 06/20/18 06/20/18 06/20/18 15:43 10:55 07:02 POC Glucose 244 H 381 H 281 H 06/19/18 22:09 POC Glucose 363 H Assessment/Plan This patient was seen in conjunction with PROFESSIONAL POKER PLAYERBrittany. I have independently interviewed and examined the patient and reviewed pertinent history, examination findings, laboratory and plan of management. I have reviewed the note and agree with the documented findings with the few additional points. In brief, patient is admitted for severe sepsis secondary to infected decubitus ulcer of sacrum, chronic B/L ischial ulcers stage IV. patient has Right septic bursitis of the elbow and right wrist abscess which required open irrigation and debridement of right elbow bursa and drainage of subcutaneous abscess of right wrist by Dr. Garza Patient is on broad-spectrum IV antibiotic vancomycin and Zosyn. Dr. Myles and Dr. Garza consult appreciated. Patient had a wide excision of decubitus ulcer as mentioned above. The patient has other multiple comorbidities including neurogenic bladder with chronic suprapubic catheter, rectal prolapse with colostomy, diabetes mellitus type 2 with diabetic neuropathy, chronic osteitis of left ischial area, spinal stenosis and anemia of chronic disease. Preliminary wound culture shows multiple organisms including VRE, Enterococcus faecalis, Streptococcus pseudoporcinus, MRSA, alpha hemolytic organism, H-like organism, staphylococcal epidermidis, Proteus mirabilis. ID consult. Patient is on vancomycin for MRSA, doxycycline for VRE, ceftriaxone for Streptococcus and alphahemolytic organism and Proteus mirabilis. Unasyn is added by Dr. Myles. IV Zosyn discontinued as there is no Pseudomonas. ID consult for the requested in view of multiple bacterial growth in tissue culture and review the antibiotics. H&H 6.6/21. 2 unit of PRBC was given. Hemoglobin improved to 10.8/29.6. Platelet count 101,000. I have discussed my assessment with Brittany GOLDSMITH and orders have been reviewed. Code Visit Inpatient E&M: 07905 Subs Hosp L3
[2018-06-20 15:51] LABS: Bedside Glucose 244 mg/dL (70-110)
[2018-06-20] MEDS: Tolterodine Tartrate 4 MG CAP.SA PO (16:58)
[2018-06-20] MEDS: Atorvastatin Calcium 10 MG Tablet PO (21:52)
[2018-06-20] MEDS: Ceftriaxone 1 GM/50 ML BAG IV (21:52)
[2018-06-20] MEDS: Latanoprost 0.005% 1 Bottle 1 DRP EACH EYE (21:53)
[2018-06-20 22:26] LABS: Bedside Glucose 169 mg/dL (70-110)
[2018-06-21] VITALS (15 sets, daily range): BP systolic 106–158; BP diastolic 55–84; PULSE 104–125; RESP 11–18; TEMP 36.7–38.4; O2SAT 92–94
[2018-06-21] MEDS: 0.9% NaCl Peripheral Flush Adult/Peds IV ×2 (02:55→02:56)
[2018-06-21] MEDS: Vancomycin IV 500 MG/100 ML BAG 100 MG IV (03:31)
[2018-06-21 03:37] LABS: Anion Gap 10 (5-15); BUN 5 mg/dL (7-18); BUN/Creat Ratio 16.8 RATIO (10-20); Calcium,Total 7.2 mg/dL (8.5-10.1); Chloride 104 mmol/L (98-107); EST Glomerular Filtration Rate 236 mL/min (>60); Est Glom Filt Rate - Afr Amer 286 mL/min (>60); Estimated Creatinine Clearance 40.07 ml/min; Glucose 145 mg/dL (74-106); Potassium 3.6 mmol/L (3.5-5.1); Sodium Level 139 mmol/L (136-145)
[2018-06-21 03:41] LABS: Vancomycin, Trough Level 8.8 ug/mL (5.0-15.0)
[2018-06-21 03:46] LABS: Hematocrit 30.2 % (37-47); Hemoglobin 9.9 g/dl (12.0-15.0); Mean Corp Hgb Conc 32.8 g/gl (32-36); Mean Corpuscular Hgb 28.3 pg (27.0-32.0); Mean Corpuscular Volume 86.3 fL (81-99); Mean Platelet Vol. 9.7 fl (6.2-12.0); Platelet Count 102 K/mm3 (150-450); RBC Distribution Width CV 18.1 % (11.6-14.6); White Blood Count 4.3 K/mm3 (4.4-11.0)
[2018-06-21 03:48] LABS: Scan Indicated on CBC? Y/N NO
--- NOTE | 2018-06-21 04:40 | PCM.RX.CS ---
Consult Pharmacy has been consulted to manage selected antiobiotic: Vancomycin Type of Consult: Follow-up Labs: Sodium 139 mmol/L (136-145) 06/21/18 02:50 Potassium 3.6 mmol/L (3.5-5.1) 06/21/18 02:50 Chloride 104 mmol/L (98-107) 06/21/18 02:50 Carbon Dioxide 25.0 mmol/L (21.0-32.0) 06/21/18 02:50 Anion Gap 10 (5-15) 06/21/18 02:50 BUN 5 mg/dL (7-18) L 06/21/18 02:50 Creatinine 0.30 mg/dL (0.55-1.02) L 06/21/18 02:50 Est GFR (MDRD) Af Amer 286 mL/min (>60) 06/21/18 02:50 Est GFR (MDRD) Non-Af 236 mL/min (>60) 06/21/18 02:50 BUN/Creatinine Ratio 16.8 RATIO (10-20) 06/21/18 02:50 Glucose 145 mg/dL (74-106) H 06/21/18 02:50 Vancomycin Trough 8.8 ug/mL (5.0-15.0) 06/21/18 02:45 Microbiology: Microbiology 06/17/18 14:56 Tissue - Other Gram Stain - Final 06/17/18 14:56 Tissue - Other Wound Culture - Preliminary Vancomycin Resist. E. faecalis Streptococcus pseudoporcinus Staphylococcus aureus Beta hemolytic organism 06/17/18 14:56 Bone - Other Gram Stain - Final 06/17/18 14:56 Bone - Other Wound Culture - Preliminary Meth. resistant Staph. aureus Staphylococcus epidermidis Alpha hemolytic organism Yeast Like Organism 06/17/18 14:56 Bone - Other Anaerobic Culture - Preliminary Checking for anaerobes, further studies to follow. 06/17/18 14:56 Tissue - Other Gram Stain - Final 06/17/18 14:56 Tissue - Other Wound Culture - Preliminary Meth. resistant Staph. aureus Proteus mirabilis GPC Poss Enterococcus sp Beta hemolytic organism 06/17/18 14:56 Tissue - Other Anaerobic Culture - Preliminary Checking for anaerobes, further studies to follow. 06/17/18 14:56 Bone - Other Gram Stain - Final 06/17/18 14:56 Bone - Other Wound Culture - Preliminary Meth. resistant Staph. aureus Streptococcus mitis/ oralis GPC Poss Enterococcus sp 06/17/18 14:56 Bone - Other Anaerobic Culture - Preliminary Checking for anaerobes, further studies to follow. 06/17/18 14:56 Bone - Other Gram Stain - Final 06/17/18 14:56 Bone - Other Wound Culture - Preliminary Vancomycin Resist. E. faecalis Meth. resistant Staph. aureus Proteus mirabilis Actinomyces odontolyticus Enterococcus raffinosus Gram negative miranda 06/17/18 14:56 Bone - Other Anaerobic Culture - Preliminary Checking for anaerobes, further studies to follow. 06/17/18 14:56 Tissue - Sacral Gram Stain - Final 06/17/18 14:56 Tissue - Sacral Wound Culture - Preliminary Proteus mirabilis Streptococcus mitis/ oralis Vancomycin Resist. E. faecalis Meth. resistant Staph. aureus Enterococcus raffinosus Gram negative miranda#2 06/17/18 14:56 Tissue - Sacral Anaerobic Culture - Preliminary Checking for anaerobes, further studies to follow. 06/17/18 13:32 Aspirate - Wrist Gram Stain - Final 06/17/18 13:32 Aspirate - Wrist Wound Culture - Final Meth. resistant Staph. aureus 06/17/18 13:32 Aspirate - Wrist Anaerobic Culture - Preliminary Checking for anaerobes, further studies to follow. 06/17/18 07:35 Fluid - Synovial (joint) Gram Stain - Final 06/17/18 07:35 Fluid - Synovial (joint) Body Fluid Culture - Final Meth. resistant Staph. aureus 06/17/18 07:35 Fluid - Synovial (joint) Anaerobic Culture - Preliminary Checking for anaerobes, further studies to follow. 06/17/18 07:28 Blood Culture (Wb) - Right Hand Blood Culture - Preliminary No growth in 48 hours. 06/17/18 07:20 Blood Culture (Wb) - Left Hand Blood Culture - Preliminary No growth in 48 hours. 06/17/18 05:15 Urine Catheter - Catheter Urine Culture - Final Proteus mirabilis 06/16/18 14:17 Blood Culture (Wb) - Anticubital Left Blood Culture - Preliminary Meth. resistant Staph. aureus Goal Trough: 10-15 mcg/mL Pharmacy Plan for Drug Dosing: Pharmacy Service will continue to monitor and adjust dosing as required. Medications Vancomycin HCl 750 mg/ Sodium (Chloride) 265 mls @ 250 mls/hr IV Q12H KEKE TROUGH 8.8 INCREASE TO 750 Q12H Follow-Up Labs: Trough Vancomycin Labs to be done on [date and time ordered]: 06/23 @ 0300
[2018-06-21] MEDS: Acetaminophen 325 MG Tablet 650 MG PO (05:29)
[2018-06-21 06:55] LABS: Bedside Glucose 149 mg/dL (70-110)
[2018-06-21] MEDS: 0.9% Normal Saline 1,000 ML 125 ML IV ×2 (08:12→21:45)
[2018-06-21] MEDS: Insulin Lispro 100 UNIT/ML INSULN.PEN 10 UNIT SC ×3 (08:13→16:48)
[2018-06-21] MEDS: Multivitamins,Therapeutic Tablet 1 TABLET PO (08:54)
[2018-06-21] MEDS: Ascorbic Acid 500 MG Tablet PO (08:54)
[2018-06-21] MEDS: Ceftriaxone 1 GM/50 ML BAG IV (08:54)
[2018-06-21] MEDS: Timolol 0.5% 5ML OPTH.BTL 1 DRP EACH EYE (08:54)
[2018-06-21] MEDS: Gabapentin 100 MG Capsule PO ×3 (08:54→16:48)
[2018-06-21] MEDS: Mirabegron 50 MG TAB.ER.24H PO (08:55)
[2018-06-21] MEDS: NYSTATIN 500,000 UNIT/5 ML UDC 500000 UNIT PO ×4 (08:55→21:59)
[2018-06-21] MEDS: Allopurinol 100 MG Tablet 200 MG PO (08:55)
[2018-06-21] MEDS: METHENAMINE HIPPURATE 1 GM TABLET PO ×2 (08:55→21:58)
[2018-06-21] MEDS: Metoprolol Tartrate 25 MG Tablet PO ×2 (08:55→21:59)
[2018-06-21] MEDS: Enoxaparin 40 MG/0.4 ML Syringe SC (08:56)
[2018-06-21] MEDS: Glucerna Shake 120 ML LIQUID PO ×3 (08:56→21:58)
[2018-06-21] MEDS: Losartan Potassium 25 MG Tablet PO (09:00)
[2018-06-21] MEDS: HYDROcodone Bitartrate/Apap 5/325 Tablet PO ×2 (09:00→16:57)
[2018-06-21] MEDS: Doxycycline 100 MG CAPSULE PO ×2 (10:49→21:57)
[2018-06-21] MEDS: Insulin Lispro 100 UNIT/ML INSULN.PEN SC ×3 (10:54→21:58)
[2018-06-21 11:30] LABS: Bedside Glucose 320 mg/dL (70-110)
--- NOTE | 2018-06-21 12:54 | ECHOD_ITS ---
Reason For Study: MURMUR, MRSA BACTEREMIA Procedure This was a 2D Doppler, Color Flow transthoracic echocardiogram. The study was technically difficult. Exam performed portable in patient room. Left Ventricle Normal LV size. Left ventricular systolic function is normal. The estimated ejection fraction is 60 %. Stage 1 diastolic dysfunction. No regional wall motion abnormalities noted. Right Ventricle Normal RV size. Normal systolic function. Atria Normal left atrium. Normal right atrium. Mitral Valve Normal mitral valve. Mild (1+) eccentric mitral valve insufficiency. Tricuspid Valve Normal tricuspid valve. Mild tricuspid valve insufficiency. Pulmonary artery systolic pressure is 42 mmHg. Aortic Valve Normal aortic valve. Trisinus/trileaflet aortic valve. Pulmonic Valve Normal pulmonic valve. Great Vessels Normal aortic root. The pulmonary artery is normal size. Normal inferior vena cava. Pericardium/Pleural Small pericardial effusion. MMode/2D Measurements & Calculations LVIDd: 4.3 cm IVSd: 0.93 cm Ao root diam: 3.0 cm LVIDs: 2.5 cm LVPWd: 0.93 cm LA dimension: 3.3 cm FS: 41.8 % LAV(MOD-bp): 31.5 ml LVAd ap4: 22.0 cm2 SV(MOD-sp4): 37.6 ml LAV(MOD-bp) Indexed: 18.8 ml/m2 EDV(MOD-sp4): 63.4 ml LAV(MOD-sp2): 33.8 ml EDV(sp4-el): 65.8 ml LAV(MOD-sp4): 26.2 ml LVAs ap4: 12.8 cm2 ESV(MOD-sp4): 25.7 ml ESV(sp4-el): 26.4 ml EF(MOD-sp4): 59.4 % EF(sp4-el): 59.8 % SV(sp4-el): 39.3 ml LA A4 area: 12.2 cm2 RA A4 area: 6.6 cm2 Time Measurements MV dec time: 0.17 sec Doppler Measurements & Calculations MV E max geovany: 79.0 cm/sec Lat Peak E' Geovany: 10.9 cm/sec Med Peak E' Geovany: 8.4 cm/sec MV A max geovany: 84.6 cm/sec E/E' lat: 7.2 E/E' med: 9.4 MV E/A: 0.93 Ao V2 max: 134.1 cm/sec LV V1 max: 97.7 cm/sec PA V2 max: 100.2 cm/sec Ao max P.2 mmHg LV V1 max P.8 mmHg TR max geovany: 309.5 cm/sec TR max P.3 mmHg Interpretation Summary Normal LV size. Left ventricular systolic function is normal. The estimated ejection fraction is 60 %. Stage 1 diastolic dysfunction. Mild (1+) eccentric mitral valve insufficiency. Mild tricuspid valve insufficiency. Ordering Physician: Lavon Joseph Referring Physician: Sari Frost Performed By: Pamela Deleon RDCS
--- NOTE | 2018-06-21 14:10 | PN_ITS ---
<Brittany Parker - Last Filed: 06/21/18 14:11> Patient Problems: Active and Suspected Problems (Last Reviewed 03/24/18 @ 13:10 by Jennifer Bee) Abscess, wrist (Acute) Infected decubitus ulcer (Acute) Olecranon bursitis of right elbow (Acute) Severe sepsis (Acute) Subjective: Patient seen and examined. Denies current complaints. Discussed patient goals/plan of care. Patient states her goal is to eventually return home. Again, wishes to remain full code. - Physical Exam General: Alert, Oriented x3, Cooperative HEENT: Atraumatic, PERRLA, EOMI, Normocephalic Neck: Supple, No JVD, Negative Carotid Bruits Lungs: Clear to auscultation, Normal air movement Cardiovascular: Regular rate, Regular Rhythm, Normal S1, Normal S2, No murmurs Abdomen: Bowel Sounds Present, Soft, Non Tender, Non-Distended Extremities: No clubbing, No cyanosis, No edema Skin: No rashes, - - Bilateral stage III-IV ischial decubitus ulcers, stage IV sacral pressure ulcer, right elbow erythema-status post aspiration. Dressings intact. Musculoskeletal: No Tenderness to Palpation of Joints or Extremities Neurological: Cranial nerves II-XII grossly intact, Neuro grossly intact Psych/Mental Status: Normal Affect, Appropriate Vital Signs Temp Pulse Resp BP Pulse Ox 98.0 F 104 H 16 126/68 H 93 06/21/18 10:45 06/21/18 11:00 06/21/18 10:45 06/21/18 10:45 06/21/18 10:45 Oxygen Flow Rate (L/min) 2 Oxygen Delivery Method Room Air Weight: 151 lb 12.789 oz Body Mass Index (BMI) 27.9 Finger Stick Blood Glucose 154 Intake and Output for Last 24 Hours 06/19/18 06/20/18 06/21/18 23:59 23:59 23:59 Intake Total 2281 / 2281 4382 / 4382 2768 / 2768 Output Total 1900 / 1900 2200 / 2200 2750 / 2750 Balance 381 / 381 2182 / 2182 Microbiology Past 72 Hours 06/16/18 14:30 Blood Culture - Preliminary Blood Culture (Wb) - Right Forearm No growth in 48 hours. 06/17/18 14:56 Gram Stain - Final Bone - Other Wound Culture - Final Vancomycin Resist. E. faecalis Meth. resistant Staph. aureus Proteus mirabilis Actinomyces odontolyticus Enterococcus raffinosus Anaerobic Culture - Final Anaerobic cocci 06/17/18 14:56 Gram Stain - Final Bone - Other Wound Culture - Final Meth. resistant Staph. aureus Staphylococcus epidermidis Presumptive C albicans Anaerobic Culture - Final No anaerobic bacteria isolated. 06/17/18 14:56 Gram Stain - Final Tissue - Other Wound Culture - Preliminary Vancomycin Resist. E. faecalis Streptococcus pseudoporcinus Meth. resistant Staph. aureus Beta hemolytic organism Anaerobic Culture - Final No anaerobic bacteria isolated. 06/17/18 14:56 Gram Stain - Final Tissue - Other Wound Culture - Final Meth. resistant Staph. aureus Proteus mirabilis Vancomycin Resist. E. faecalis Streptococcus constellatus con Anaerobic Culture - Final Anaerobic cocci 06/17/18 14:56 Gram Stain - Final Bone - Other Wound Culture - Final Meth. resistant Staph. aureus Streptococcus mitis/ oralis Enterococcus raffinosus Anaerobic Culture - Final Anaerobic cocci 06/17/18 14:56 Gram Stain - Final Tissue - Sacral Wound Culture - Final Proteus mirabilis Streptococcus mitis/ oralis Vancomycin Resist. E. faecalis Meth. resistant Staph. aureus Enterococcus raffinosus Acinetobacter baumannii Anaerobic Culture - Final No anaerobic bacteria isolated. 06/17/18 13:32 Gram Stain - Final Aspirate - Wrist Wound Culture - Final Meth. resistant Staph. aureus Anaerobic Culture - Final No anaerobic bacteria isolated. 06/17/18 07:35 Gram Stain - Final Fluid - Synovial (joint) Body Fluid Culture - Final Meth. resistant Staph. aureus Anaerobic Culture - Final No anaerobic bacteria isolated. 06/17/18 07:28 Blood Culture - Preliminary Blood Culture (Wb) - Right Hand No growth in 48 hours. 06/17/18 07:20 Blood Culture - Preliminary Blood Culture (Wb) - Left Hand No growth in 48 hours. 06/17/18 05:15 Urine Culture - Final Urine Catheter - Catheter Proteus mirabilis 06/16/18 14:17 Blood Culture - Preliminary Blood Culture (Wb) - Anticubital Left Meth. resistant Staph. aureus Laboratory Tests Past 24 Hrs 06/21/18 06/21/18 06/21/18 02:45 02:50 02:50 WBC 4.3 L RBC 3.50 L Hgb 9.9 L Hct 30.2 L MCV 86.3 MCH 28.3 MCHC 32.8 RDW 18.1 H RDW Differential 57.0 H Plt Count 102 L MPV 9.7 Sodium 139 Potassium 3.6 Chloride 104 Carbon Dioxide 25.0 Anion Gap 10 BUN 5 L Creatinine 0.30 L Estim Creat Clear Calc 40.07 Est GFR (MDRD) Af Amer 286 Est GFR (MDRD) Non-Af 236 BUN/Creatinine Ratio 16.8 Glucose 145 H Calcium 7.2 L Vancomycin Trough 8.8 POC Glucose 06/21/18 06/21/18 06/20/18 10:53 06:42 21:50 POC Glucose 320 H 149 H 169 H 06/20/18 15:43 POC Glucose 244 H Medical Necessity - Tobacco Use Smoking Status: Never smoker Tobacco Use: Non-smoker Assessment/Plan All Active Problems (Last Reviewed 03/24/18 @ 13:10 by Jennifer Bee) Abscess, wrist (Acute) Septic olecranon bursitis of right elbow (Acute) Skin necrosis (Acute) Infected decubitus ulcer (Acute) Olecranon bursitis of right elbow (Acute) Severe sepsis (Acute) Complicated urinary tract infection (Acute) Hematuria (Acute) Pressure ulcer of left buttock, stage 2 (Resolved) 1. Severe sepsis secondary to multi-organism infected decubitus ulcer of the sacrum as well as olecranon bursitis and Staphylococcus aureus bacteremia-lactic acid 5.7 on admission, resolved. Continue to treat infectious processes. Blood cultures positive for Staphylococcus aureus 06/16/2018. Repeat blood cultures show no growth in 48 hours. 2. Infected/necrotic decubitus sacral ulcer-history of multiple chronic wounds including stable chronic bilateral ischial ulcers stage IV with chronic osteomyelitis left ischial area. Dr. Myles consulted, patient underwent wound debridement of coccyx ulcer 06/17/18. Wound RN consult. Continue IV vancomycin, doxycycline, IV Diflucan and IV Zosyn. Patient had wound VAC applied 06/18/18. Sacral tissue culture growing multiple organisms including Proteus mirabilis, streptococcal mitis, VRE, MRSA, enterococcus raffinosus. Left ischial bone culture positive for MRSA, Staphylococcus epidermidis and alpha hemolytic organism. ID consulted. PICC line placed 06/19/18. Antibiotic regimen adjusted per ID. Obtain echocardiogram to rule out endocarditis. Repeat blood cultures. ID anticipates long-term antibiotics. 3. Olecranon bursitis-IV vancomycin and IV Zosyn as noted above. Dr. Miles ambriz onsulted. MRI shows olecranon bursitis with fluid collection. Possible abscess. Bursa was aspirated and culture sent. Culture of wrist and synovial joint fluid showing MRSA. Patient underwent open irrigation and debridement of right elbow bursa and subcutaneous abscess of wrist 06/17/[address] Aquino. Dressing intact. Antibiotics and ID consult as noted above. 4. Type 2 diabetes [id number] ACHS with sliding scale insulin. 5. Hypertension-continue home losartan regimen. 6. Hyperlipidemia-continue statin. 7. Spinal stenosis and peripheral neuropathy with neurogenic bladder, paraplegia-chronic Roach catheter. PT/OT. Resides at [facility]. 8. Acute blood loss anemia secondary to wound debridement on anemia of chronic disease-2 units PRBC ordered for Hgb 6.6. Repeat hemoglobin this morning 9.9. Trend CBC. 9. Thrombocytopenia-suspect secondary to #1 and severe infection. Trend CBC. DVT prophylaxis-Lovenox subcu CODE STATUS: Patient's wish to change her CODE STATUS from DNR CCA to full code. She reports she is agreeable to chest compressions but does not want to long- term mechanical ventilation. This patient was seen by AVELINO Fuchs under the supervision of Dr. Muñoz. <Elissa Muñoz - Last Filed: 06/22/18 12:33> - Physical Exam Vital Signs Temp Pulse Resp BP Pulse Ox 97.8 F 115 H 18 129/71 H 95 06/22/18 08:31 06/22/18 08:34 06/22/18 08:34 06/22/18 08:31 06/22/18 08:31 Oxygen Flow Rate (L/min) 2 Oxygen Delivery Method Nasal Cannula Weight: 68.855 kg Body Mass Index (BMI) 27.9 Finger Stick Blood Glucose 154 Intake and Output for Last 24 Hours 06/20/18 06/21/18 06/22/18 23:59 23:59 23:59 Intake Total 4382 / 4382 3623 / 3623 3604 / 3604 Output Total 2200 / 2200 4175 / 4175 1425 / 1425 Balance 2182 / 2182 -552 / -552 2179 / 2179 Microbiology Past 72 Hours 06/17/18 07:28 Blood Culture - Final Blood Culture (Wb) - Right Hand No growth in 5 days. 06/17/18 07:20 Blood Culture - Final Blood Culture (Wb) - Left Hand No growth in 5 days. 06/17/18 14:56 Gram Stain - Final Tissue - Other Wound Culture - Final Vancomycin Resist. E. faecalis Streptococcus pseudoporcinus Meth. resistant Staph. aureus Streptococcus group F Anaerobic Culture - Final No anaerobic bacteria isolated. 06/17/18 14:56 Gram Stain - Final Tissue - Sacral Wound Culture - Final Proteus mirabilis Streptococcus mitis/ oralis Vancomycin Resist. E. faecalis Meth. resistant Staph. aureus Enterococcus raffinosus Acinetobacter baumannii Anaerobic Culture - Final No anaerobic bacteria isolated. 06/16/18 14:17 Blood Culture - Preliminary Blood Culture (Wb) - Anticubital Left Meth. resistant Staph. aureus 06/16/18 14:30 Blood Culture - Final Blood Culture (Wb) - Right Forearm No growth in 5 days. 06/17/18 14:56 Gram Stain - Final Bone - Other Wound Culture - Final Vancomycin Resist. E. faecalis Meth. resistant Staph. aureus Proteus mirabilis Actinomyces odontolyticus Enterococcus raffinosus Anaerobic Culture - Final Anaerobic cocci 06/17/18 14:56 Gram Stain - Final Bone - Other Wound Culture - Final Meth. resistant Staph. aureus Staphylococcus epidermidis Presumptive C albicans Anaerobic Culture - Final No anaerobic bacteria isolated. 06/17/18 14:56 Gram Stain - Final Tissue - Other Wound Culture - Final Meth. resistant Staph. aureus Proteus mirabilis Vancomycin Resist. E. faecalis Streptococcus constellatus con Anaerobic Culture - Final Anaerobic cocci 06/17/18 14:56 Gram Stain - Final Bone - Other Wound Culture - Final Meth. resistant Staph. aureus Streptococcus mitis/ oralis Enterococcus raffinosus Anaerobic Culture - Final Anaerobic cocci 06/17/18 13:32 Gram Stain - Final Aspirate - Wrist Wound Culture - Final Meth. resistant Staph. aureus Anaerobic Culture - Final No anaerobic bacteria isolated. 06/17/18 07:35 Gram Stain - Final Fluid - Synovial (joint) Body Fluid Culture - Final Meth. resistant Staph. aureus Anaerobic Culture - Final No anaerobic bacteria isolated. Laboratory Tests Past 24 Hrs 06/22/18 05:10 WBC 4.6 RBC 3.35 L Hgb 9.5 L Hct 29.3 L MCV 87.5 MCH 28.4 MCHC 32.4 RDW 18.6 H RDW Differential 58.6 H Plt Count 99 L MPV 9.1 POC Glucose 06/22/18 06/22/18 06/21/18 11:21 06:43 21:25 POC Glucose 145 H 102 221 H 06/21/18 16:47 POC Glucose 261 H Assessment/Plan This patient was seen in conjunction with Brittany Parker NP. I have independently interviewed and examined the patient and reviewed pertinent historical, laboratory, and other data. Please refer to her note for patient's presentation, findings, and recommendations. Patient was seen and examined. Pain is controlled, denies any fever or chills. He has been on 2 L of oxygen, appears comfortable. Vitals were reviewed -stable Physical Exam: Gen: Looks in some discomfort, not pale, not jaundiced, alert oriented x3 CVS:HS I +II, regular, no murmurs RESP: Diminished at lung bases GI: Full, firm, nontender, no ballotable organs EXT:No edema Labs reviewed: ASSESSMENT: 1. Severe sepsis secondary to infected sacral ulcer/olecranon bursitis 2. Staph aureus bacteremia 3. Multi-organism infected/necrotic decubital sacral ulcer 4. Olecranon bursitis 5. Type 2 DM 6. Hypertension 7. Hyperlipidemia 8. Spinal stenosis/peripheral neuropathy with neurogenic bladder/paraplegia with chronic roach catheter Meds reviewed Plan: Appreciate ID consult and recommendations Will get 2d-echo Continue with wound care BS monitoring Code Visit Inpatient E&M: 72666 Subs Hosp L2
--- NOTE | 2018-06-21 14:15 | CON.PCM_ITS ---
Problem List (1) Severe sepsis Status: Acute Reason for Consult: mrsa bcx Consulted by: Dr. Muñoz History of Present Illness: The patient is a 68 year old F with spinal stenosis, chronic ulcers who presented 06/16 with about 4 days of fever, not feeling well, worsening pelvic wounds, and R elbow and wrist swelling, pain, redness. In ED, lactate 5.8. Admitted on vanc/zosyn. Seen by Dr. Myles and Dr. Luther, taken to OR 06/17 for debridement of infected areas. Now feeling ok. Abx now are vanc, ceftriaxone, unasyn, doxy, and fluconazole. No new joint pain. Fever to 101.1. Picc in place. Full ROS performed and neg except as noted above. - Medical History Past Medical History (Chronic Problems): Chronic Problems (Last Reviewed 03/24/18 @ 13:10 by Jennifer Bee) Chronic osteomyelitis of left pelvic region (Chronic) Right ischial pressure sore, stage 4 (Chronic) Open wound of left thigh (Chronic) traumatic skin tear posterior thigh Incompetent urethral closure mechanism (Chronic) Neurogenic bladder (Chronic) Stage II pressure ulcer (Chronic) Chronic suprapubic catheter (Chronic) Diabetes mellitus type 2 in nonobese (Chronic) Hypertension (Chronic) Gout (Chronic) with arthropathy Pressure ulcer of left buttock, stage 3 (Chronic) left lower buttock/upper thigh area Diabetes mellitus (Chronic) Pressure ulcer of right buttock, stage 3 (Chronic) Diabetic neuropathy, type II diabetes mellitus (Chronic) Malnutrition (Chronic) Back pain (Chronic) Arthritis (Chronic) 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 significance to followup Anemia of chronic disease (Chronic) Physical deconditioning (Chronic) Dupuytren's contracture of right hand (Chronic) Spinal stenosis (Chronic) Hyperlipidemia (Chronic) RP (rectal prolapse) (Chronic) Allergies/Adverse Reactions: Allergies No Known Allergies Allergy (Verified 06/16/18 13:35) Home Medications: Ambulatory Orders Medication Instructions Recorded Allopurinol [Zyloprim] 200 mg PO DAILY 07/05/14 Multivitamins,Therapeutic 1 tab PO DAILY 07/05/14 [Multivitamin] Timolol Maleate [Timoptic-XE 0.5%] 1 drp EACH EYE DAILY 07/05/14 Ascorbic Acid [Vitamin C] 500 mg PO DAILY@0800 09/09/17 Metformin HCl [Glucophage] 1,000 mg PO BID 02/26/18 Atorvastatin Calcium [Lipitor] 10 mg PO QHS 06/16/18 Ciprofloxacin [Cipro] 500 mg PO BID 06/16/18 Dexamethasone [Decadron] 4 mg PO BIDCM 06/16/18 Gabapentin [Neurontin] 100 mg PO TID 06/16/18 Lactobacillus Acidophilus 1 cap PO DAILY 06/16/18 [Acidophilus] Linagliptin [Tradjenta] 5 mg PO DAILY 06/16/18 Oxycodone HCl/Acetaminophen 1 tab PO Q4H PRN PRN 06/16/18 [Oxycodone-Acetaminophen 5-325] Polyethylene Glycol 3350 [Miralax] 17 gm PO DAILY 06/16/18 - Social History Tobacco Use: non-smoker Vital Signs Temp Pulse Resp BP Pulse Ox 98.0 F 104 H 16 126/68 H 93 06/21/18 10:45 06/21/18 11:00 06/21/18 10:45 06/21/18 10:45 06/21/18 10:45 Oxygen Flow Rate (L/min) 2 Oxygen Delivery Method Room Air Weight: 68.855 kg Body Mass Index (BMI) 27.9 Finger Stick Blood Glucose 154 Microbiology Past 72 Hours 06/16/18 14:30 Blood Culture - Preliminary Blood Culture (Wb) - Right Forearm No growth in 48 hours. 06/17/18 14:56 Gram Stain - Final Bone - Other Wound Culture - Final Vancomycin Resist. E. faecalis Meth. resistant Staph. aureus Proteus mirabilis Actinomyces odontolyticus Enterococcus raffinosus Anaerobic Culture - Final Anaerobic cocci 06/17/18 14:56 Gram Stain - Final Bone - Other Wound Culture - Final Meth. resistant Staph. aureus Staphylococcus epidermidis Presumptive C albicans Anaerobic Culture - Final No anaerobic bacteria isolated. 06/17/18 14:56 Gram Stain - Final Tissue - Other Wound Culture - Preliminary Vancomycin Resist. E. faecalis Streptococcus pseudoporcinus Meth. resistant Staph. aureus Beta hemolytic organism Anaerobic Culture - Final No anaerobic bacteria isolated. 06/17/18 14:56 Gram Stain - Final Tissue - Other Wound Culture - Final Meth. resistant Staph. aureus Proteus mirabilis Vancomycin Resist. E. faecalis Streptococcus constellatus con Anaerobic Culture - Final Anaerobic cocci 06/17/18 14:56 Gram Stain - Final Bone - Other Wound Culture - Final Meth. resistant Staph. aureus Streptococcus mitis/ oralis Enterococcus raffinosus Anaerobic Culture - Final Anaerobic cocci 06/17/18 14:56 Gram Stain - Final Tissue - Sacral Wound Culture - Final Proteus mirabilis Streptococcus mitis/ oralis Vancomycin Resist. E. faecalis Meth. resistant Staph. aureus Enterococcus raffinosus Acinetobacter baumannii Anaerobic Culture - Final No anaerobic bacteria isolated. 06/17/18 13:32 Gram Stain - Final Aspirate - Wrist Wound Culture - Final Meth. resistant Staph. aureus Anaerobic Culture - Final No anaerobic bacteria isolated. 06/17/18 07:35 Gram Stain - Final Fluid - Synovial (joint) Body Fluid Culture - Final Meth. resistant Staph. aureus Anaerobic Culture - Final No anaerobic bacteria isolated. 06/17/18 07:28 Blood Culture - Preliminary Blood Culture (Wb) - Right Hand No growth in 48 hours. 06/17/18 07:20 Blood Culture - Preliminary Blood Culture (Wb) - Left Hand No growth in 48 hours. 06/17/18 05:15 Urine Culture - Final Urine Catheter - Catheter Proteus mirabilis 06/16/18 14:17 Blood Culture - Preliminary Blood Culture (Wb) - Anticubital Left Meth. resistant Staph. aureus Laboratory Tests Past 24 Hrs 06/21/18 06/21/18 06/21/18 02:45 02:50 02:50 WBC 4.3 L RBC 3.50 L Hgb 9.9 L Hct 30.2 L MCV 86.3 MCH 28.3 MCHC 32.8 RDW 18.1 H RDW Differential 57.0 H Plt Count 102 L MPV 9.7 Sodium 139 Potassium 3.6 Chloride 104 Carbon Dioxide 25.0 Anion Gap 10 BUN 5 L Creatinine 0.30 L Estim Creat Clear Calc 40.07 Est GFR (MDRD) Af Amer 286 Est GFR (MDRD) Non-Af 236 BUN/Creatinine Ratio 16.8 Glucose 145 H Calcium 7.2 L Vancomycin Trough 8.8 - Other Studies Radiology: [] reviewed Other Studies: [] Route of nutrition/ use of supplements: [] Nutritional Intake: [] IV Site: [] Rea Catheter: [] - Physical Exam General: Alert, Oriented x3, Cooperative, No apparent distress HEENT: Atraumatic, PERRLA, EOMI Neck: Supple, No Nodes Lungs: Clear to auscultation, Normal air movement Cardiovascular: Regular rate, Regular Rhythm, No murmurs Abdomen: Soft, Non Tender, Non-Distended, - - ostomy in place Extremities: Edema - mild BLE Skin: Ulcer/ Wound - reviewed photos. RUE wrapped., - - splinter hemorrhages on R thumb IV Site: PICC, without redness Musculoskeletal: No Tenderness to Palpation of Joints or Extremities Neurological: Cranial nerves II-XII grossly intact - Assessment/Plan Antibiotics: [] Assessment/Plan: [] Active and Suspected Problems (Last Reviewed 03/24/18 @ 13:10 by Jennifer Bee) Infected decubitus ulcer (Acute) Olecranon bursitis of right elbow (Acute) Severe sepsis (Acute) Overall improved. 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 Bcx cleared quickly, will check one more bcx and TTE. Concern for possible endocarditis. Pelvic cxs with MRSA, proteus, strep, anaerobes, actinomyces, acinetobacter, VRE, enterococcus, MRSE, and juanito (and others). Continue vanc for MRSA coverage. Fluc for juanito coverage. Generally try to avoid dual beta-lactam therapy, so will change ceftriaxone/unasyn back to zosyn. Ok to keep doxy for now with pending Acinetobacter susceptibilities. Plan on 6-8 weeks of iv abx, likely vanc/zosyn. With growth of Actinomyces, will plan on 6- 12 months of oral PCN or amox after course of iv. Will follow, thank you, d/w primary team.
--- NOTE | 2018-06-21 15:03 | NURSING ---
wound photo: right ischium
--- NOTE | 2018-06-21 15:04 | NURSING ---
wound photo: sacrum
--- NOTE | 2018-06-21 15:05 | NURSING ---
wound photo: left ischium
--- NOTE | 2018-06-21 15:06 | NURSING ---
wound photo: right wrist
--- NOTE | 2018-06-21 15:07 | NURSING ---
wound photo: right elbow
--- NOTE | 2018-06-21 16:47 | CHAPLAIN ---
Type of Pastoral Visit _x__ Initial Visit ___ Follow-up Visit ___ On-call Visit ___ General Patient Visit ___ Spiritual Assessment ___ Family Conference ___ Bereavement ___ Rapid Response ___ Code Blue ___ Other (describe below) Pastoral Care Referral From _x__ Patient ___ Family ___ Nurse ___ Physician ___ Heel Scourer ___ Shrimper ___ Other (describe below) Sacrament/Intervention _x__ Active listening ___ Anointing ___ Samaritan ___ Bereavement ___ Communion _x__ Malika exploration ___ ___ Life review _x__ Prayer ___ Reconciliation ___ Sacrament of Sick _x__ Supportive presence ___ Wedding ___ Other (describe below) Pastoral Comments
[2018-06-21] MEDS: Tolterodine Tartrate 4 MG CAP.SA PO (16:48)
[2018-06-21 17:06] LABS: Bedside Glucose 261 mg/dL (70-110)
[2018-06-21] MEDS: Atorvastatin Calcium 10 MG Tablet PO (21:59)
[2018-06-21] MEDS: Latanoprost 0.005% 1 Bottle 1 DRP EACH EYE (21:59)
--- NOTE | 2018-06-21 23:54 | NURSING ---
Verbal report given to ORQUIDEA Cody. She will resume care of pt at this time.
[2018-06-22] VITALS (8 sets, daily range): BP systolic 129–163; BP diastolic 69–75; PULSE 104–115; RESP 14–18; TEMP 36.6–37.4; O2SAT 94–95
[2018-06-22 01:01] LABS: Bedside Glucose 221 mg/dL (70-110)
[2018-06-22] MEDS: 0.9% Normal Saline 1,000 ML 125 ML IV (05:14)
[2018-06-22] MEDS: 0.9% NaCl Peripheral Flush Adult/Peds IV (05:21)
[2018-06-22 05:37] LABS: Hematocrit 29.3 % (37-47); Hemoglobin 9.5 g/dl (12.0-15.0); Mean Corp Hgb Conc 32.4 g/gl (32-36); Mean Corpuscular Hgb 28.4 pg (27.0-32.0); Mean Corpuscular Volume 87.5 fL (81-99); Mean Platelet Vol. 9.1 fl (6.2-12.0); Platelet Count 99 K/mm3 (150-450); RBC Distribution Width CV 18.6 % (11.6-14.6); RBC Distribution Width SD 58.6 fl (35.1-43.9); Red Blood Count 3.35 M/mm3 (4.2-5.4); White Blood Count 4.6 K/mm3 (4.4-11.0)
[2018-06-22 05:40] LABS: Scan Indicated on CBC? Y/N NO
[2018-06-22 06:46] LABS: Bedside Glucose 102 mg/dL (70-110)
[2018-06-22] MEDS: Ascorbic Acid 500 MG Tablet PO (08:16)
[2018-06-22] MEDS: Multivitamins,Therapeutic Tablet 1 TABLET PO (08:16)
[2018-06-22] MEDS: Gabapentin 100 MG Capsule PO ×2 (08:17→12:10)
[2018-06-22] MEDS: Doxycycline 100 MG CAPSULE PO (08:17)
[2018-06-22] MEDS: Mirabegron 50 MG TAB.ER.24H PO (08:17)
[2018-06-22] MEDS: Losartan Potassium 25 MG Tablet PO (08:17)
[2018-06-22] MEDS: Allopurinol 100 MG Tablet 200 MG PO (08:17)
[2018-06-22] MEDS: Metoprolol Tartrate 25 MG Tablet PO (08:17)
[2018-06-22] MEDS: METHENAMINE HIPPURATE 1 GM TABLET PO (08:18)
[2018-06-22] MEDS: Enoxaparin 40 MG/0.4 ML Syringe SC (08:18)
[2018-06-22] MEDS: NYSTATIN 500,000 UNIT/5 ML UDC 500000 UNIT PO (08:18)
[2018-06-22] MEDS: Timolol 0.5% 5ML OPTH.BTL 1 DRP EACH EYE (08:20)
--- NOTE | 2018-06-22 10:49 | CASEMGMT ---
ALEX called Candy and let Luh know that patient will be on 2 different IV antibiotics and she will probably be returning today. 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 Ofelia GARCIA MSW
[2018-06-22] MEDS: Fluconazole 100 MG Tablet 400 MG PO (11:23)
[2018-06-22] MEDS: Smz/Tmp Ds Tablet 1 TABLET PO (11:23)
--- NOTE | 2018-06-22 11:27 | PCM.PN.ID ---
Patient Problems: Active and Suspected Problems (Last Reviewed 03/24/18 @ 13:10 by Jennifer Bee) Infected decubitus ulcer (Acute) Olecranon bursitis of right elbow (Acute) Severe sepsis (Acute) Subjective: Feeling ok, no fever, no nausea. - Physical Exam General: Alert, Cooperative, No apparent distress Lungs: Clear to auscultation, Normal air movement Cardiovascular: Regular rate, Regular Rhythm Abdomen: Soft, Non Tender, Non-Distended Skin: No rashes, Ulcer/ Wound - reviewed photos Vital Signs Temp Pulse Resp BP Pulse Ox 97.8 F 115 H 18 129/71 H 95 06/22/18 08:31 06/22/18 08:34 06/22/18 08:34 06/22/18 08:31 06/22/18 08:31 Oxygen Flow Rate (L/min) 2 Oxygen Delivery Method Nasal Cannula Weight: 68.855 kg Body Mass Index (BMI) 27.9 Finger Stick Blood Glucose 154 Intake and Output for Last 24 Hours 06/20/18 06/21/18 06/22/18 23:59 23:59 23:59 Intake Total 4382 / 4382 3623 / 3623 2634 / 2634 Output Total 2200 / 2200 4175 / 4175 700 / 700 Balance 2182 / 2182 -552 / -552 1934 / 1934 Microbiology Past 72 Hours 06/17/18 07:28 Blood Culture - Final Blood Culture (Wb) - Right Hand No growth in 5 days. 06/17/18 07:20 Blood Culture - Final Blood Culture (Wb) - Left Hand No growth in 5 days. 06/17/18 14:56 Gram Stain - Final Tissue - Other Wound Culture - Final Vancomycin Resist. E. faecalis Streptococcus pseudoporcinus Meth. resistant Staph. aureus Streptococcus group F Anaerobic Culture - Final No anaerobic bacteria isolated. 06/17/18 14:56 Gram Stain - Final Tissue - Sacral Wound Culture - Final Proteus mirabilis Streptococcus mitis/ oralis Vancomycin Resist. E. faecalis Meth. resistant Staph. aureus Enterococcus raffinosus Acinetobacter baumannii Anaerobic Culture - Final No anaerobic bacteria isolated. 06/16/18 14:17 Blood Culture - Preliminary Blood Culture (Wb) - Anticubital Left Meth. resistant Staph. aureus 06/16/18 14:30 Blood Culture - Final Blood Culture (Wb) - Right Forearm No growth in 5 days. 06/17/18 14:56 Gram Stain - Final Bone - Other Wound Culture - Final Vancomycin Resist. E. faecalis Meth. resistant Staph. aureus Proteus mirabilis Actinomyces odontolyticus Enterococcus raffinosus Anaerobic Culture - Final Anaerobic cocci 06/17/18 14:56 Gram Stain - Final Bone - Other Wound Culture - Final Meth. resistant Staph. aureus Staphylococcus epidermidis Presumptive C albicans Anaerobic Culture - Final No anaerobic bacteria isolated. 06/17/18 14:56 Gram Stain - Final Tissue - Other Wound Culture - Final Meth. resistant Staph. aureus Proteus mirabilis Vancomycin Resist. E. faecalis Streptococcus constellatus con Anaerobic Culture - Final Anaerobic cocci 06/17/18 14:56 Gram Stain - Final Bone - Other Wound Culture - Final Meth. resistant Staph. aureus Streptococcus mitis/ oralis Enterococcus raffinosus Anaerobic Culture - Final Anaerobic cocci 06/17/18 13:32 Gram Stain - Final Aspirate - Wrist Wound Culture - Final Meth. resistant Staph. aureus Anaerobic Culture - Final No anaerobic bacteria isolated. 06/17/18 07:35 Gram Stain - Final Fluid - Synovial (joint) Body Fluid Culture - Final Meth. resistant Staph. aureus Anaerobic Culture - Final No anaerobic bacteria isolated. 06/17/18 05:15 Urine Culture - Final Urine Catheter - Catheter Proteus mirabilis Laboratory Tests Past 24 Hrs 06/22/18 05:10 WBC 4.6 RBC 3.35 L Hgb 9.5 L Hct 29.3 L MCV 87.5 MCH 28.4 MCHC 32.4 RDW 18.6 H RDW Differential 58.6 H Plt Count 99 L MPV 9.1 POC Glucose 06/22/18 06/21/18 06/21/18 06:43 21:25 16:47 POC Glucose 102 221 H 261 H 06/21/18 10:53 POC Glucose 320 H Medical Necessity - Tobacco Use Smoking Status: Never smoker Tobacco Use: Non-smoker Route of nutrition/ use of supplements: [] Nutritional Intake: [] IV Site: [] Rea Catheter: [] - Assessment/Plan Antibiotics: [] Assessment/Plan: [] Active and Suspected Problems (Last Reviewed 03/24/18 @ 13:10 by Jennifer Bee) Infected decubitus ulcer (Acute) Olecranon bursitis of right elbow (Acute) Severe sepsis (Acute) Overall improved. 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 Bcx cleared quickly. TTE neg for veg. Pelvic cxs with MRSA, proteus, strep, anaerobes, actinomyces, acinetobacter, VRE, enterococcus, MRSE, and juanito (and others). Continue vanc for MRSA coverage. Fluc for juanito coverage. Zosyn for VRE, strep, GNR, and anaerobic coverage. Will add bactrim for AcB coverage. Plan on 6-8 weeks of iv abx with vanc/zosyn and po fluc/bactrim; stop date 07/29/18. With growth of Actinomyces, will plan on 6-12 months of oral PCN or amox after course of iv. ID followup with me in 2-3 weeks at wound care center. Will follow, d/w special education case manager. Rx written for abx and weekly bmp, cbc, LFT, esr, and vanc trough.
[2018-06-22 11:35] LABS: Bedside Glucose 145 mg/dL (70-110)
--- NOTE | 2018-06-22 11:51 | PCM.EXTCARCO ---
- Diet 06/17/18 17:04 Diet: Cardiac/Low Cholesterol Type of Dietary Supplement:: sigifredo once daily Is pt able to select menu?: No - Routine Orders/Code Status Enema Type: Fleetz Enema Frequency: Daily PRN Suppository Type: Dulcolax 10mg Suppository Frequency: Daily PRN O2 Liters per Minute: 2 O2 Frequency: Continuous Keep PO Greater than or Equal to (%): 90 Routine Lab Work: - - Weekly BMP, CBC, LFT, ESR and Vanco trough while on IV antibiotics. Code Status: Full Code - Wound(s) COCCYX Wound Type: Pressure Injury L ELBOW Wound Type: SCAB L POST THIGH Wound Type: Skin Tear R BUTTOCK Wound Type: Surgical Incision MULTIPLE SKIN TEARS, BUTTOCK Wound Type: Skin Tear Bottom/Coccyx/RightPosteriorThigh Wound Type: Surgical Incision right elbow/wrist Wound Type: Surgical Incision right ischium Wound Type: Pressure Injury Dressing Change: KCI wound VAC sacrum Wound Type: Pressure Injury Dressing Change: KCI wound VAC left ischium Wound Type: Pressure Injury Dressing Change: KCI wound VAC l cheek Wound Type: Skin Tear right elbow Wound Type: Surgical Incision Dressing Change: betadine with dry dressing right wrist Wound Type: Surgical Incision Dressing Change: betadine with dry dressing - Suggestions for Active Care Change Position every (hours): 2 Times a day to sit in chair: 3 - Therapies Physical Therapy: Eval and Treat Occupational Therapy: Eval and Treat - Problem/Diagnosis (1) Infected decubitus ulcer Status: Acute Current Visit: Yes (2) Olecranon bursitis of right elbow Status: Acute Current Visit: Yes (3) Severe sepsis Status: Acute Current Visit: Yes (4) Abscess, wrist Status: Acute Current Visit: Yes (5) Stage IV pressure ulcer of sacral region Status: Chronic Comment: with infected necrosis Current Visit: No (6) Anemia of chronic disease Status: Chronic Current Visit: No (7) Chronic osteomyelitis of left pelvic region Status: Chronic Current Visit: No (8) Chronic suprapubic catheter Status: Chronic Current Visit: No (9) Diabetes mellitus type 2 in nonobese Status: Chronic Current Visit: No (10) Hyperlipidemia Status: Chronic Current Visit: No (11) Hypertension Status: Chronic Current Visit: No (12) Pressure sore of left ischium, stage 4 Status: Chronic Current Visit: No (13) Pressure ulcer of left buttock, stage 3 Status: Chronic Comment: left lower buttock/upper thigh area Current Visit: No (14) Pressure ulcer of right buttock, stage 3 Status: Chronic Current Visit: No - Allergies/Procedures Done in Hospital Allergies/Adverse Reactions: Allergies No Known Allergies Allergy (Verified 06/16/18 13:35) Procedures: 2-D Echocardiogram, Wound Vac placement, - - Excision infected necrotic sacral pressure sore stage IV with partial osteotomy for osteomyelitis. Excision left ischial pressure sore stage IV with partial ostectomy for osteomyelitis. Excision right ischial pressure sore stage IV with partial ostectomy for osteomyelitis. Open irrigation and debridement of right elbow bursa and subcutaneous abscess of wrist. - Type of Care/Length of Stay Estimated LOS: More Than 30 Days Type of Care Needed: Skilled Rehab Potential: Fair Prognosis: Fair - Additional Orders/Day of Discharge Additional Orders: Right elbow/wrist sutures may be removed on or after 07/04/2018. Wound VAC to sacral and left ischial wounds at 150 mmHg continuous suction. 3 dressing changes per week. Right elbow dry sterile dressing, change as needed. H&P will serve as current which was dated: 06/16/18 Day of Discharge: 06/22/18 - Dietary and Speech Recommendations Dietitian Recommendations/Changes: Rec diet change to 1800 calorie Cardiac diet d/t pmhx and DM. Continue 120 mL glucerna ONS 4x/day w/ medpass. Rec 1 packet Sigifredo BID-discussed with ORQUIDEA Sanchez that this must be ordered from pharmacy not dietary. - Follow Up Care Primary Care Physician: Jones Esquivel MD [Primary Care Provider] - Please follow up with your Primary Care Physician in: 1 Week Please Follow Up With: Wesley Myles MD When: 2 Weeks at Wound Center
[2018-06-22] MEDS: Insulin Lispro 100 UNIT/ML INSULN.PEN 10 UNIT SC (12:01)
--- NOTE | 2018-06-22 12:37 | CASEMGMT ---
Patient is ready for discharge back to [facility]. ALEX faxed orders to [facility]. Called [facility] and arranged for patient to get picked up at 230 via cot. ALEX notified patient, her sister in law, dovetail machine operator, RN, and Luh at [facility]. Plan: d/c back to [facility] under skilled level of care. [facility] transported via cot at 230p. Ofelia GARCIA MSW
--- NOTE | 2018-06-22 12:38 | PHA.DC.MR ---
Pharmacy Service has performed discharge medication reconciliation for this patient upon transfer to [facility]. The patient's discharge medication list was reviewed for discrepancies and discrepancies were resolved. Home Medications Allopurinol [Zyloprim] 200 mg PO DAILY 07/05/14 Multivitamins,Therapeutic [Multivitamin] 1 tab PO DAILY 07/05/14 Timolol Maleate [Timoptic-XE 0.5%] 1 drp EACH EYE DAILY 07/05/14 Ascorbic Acid [Vitamin C] 500 mg PO DAILY@0800 09/09/17 Metformin HCl [Glucophage] 1,000 mg PO BID 02/26/18 Atorvastatin Calcium [Lipitor] 10 mg PO QHS 06/16/18 Gabapentin [Neurontin] 100 mg PO TID 06/16/18 Lactobacillus Acidophilus [Acidophilus] 1 cap PO DAILY 06/16/18 Linagliptin [Tradjenta] 5 mg PO DAILY 06/16/18 Polyethylene Glycol 3350 [Miralax] 17 gm PO DAILY 06/16/18 Fluconazole [Diflucan] 400 mg PO DAILY 38 Days #38 tab 06/22/18 Glucerna Shake 120 ml PO 4X/DAY liquid 06/22/18 Insulin Lispro [Humalog KwikPen] See Protocol SC ACHS insuln.pen 06/22/18 Losartan Potassium [Cozaar] 25 mg PO DAILY tablet 06/22/18 Metoprolol Tartrate [Lopressor (beta honey)] 25 mg PO BID tablet 06/22/18 Oxycodone HCl/Acetaminophen [Oxycodone-Acetaminophen 5-325] 1 tab PO Q4H PRN PRN #10 tab 06/22/18 Piperacil/Tazobactam [Zosyn] 3.375 gm IV Q8 38 Days #114 vial 06/22/18 Potassium Chloride [K-Dur] 20 meq PO DAILYCM tablet 06/22/18 Smz/Tmp Ds [Bactrim Ds] 1 tab PO BID 38 Days #76 tab 06/22/18 Vancomycin IV 750 mg IV Q12H 38 Days #76 vial 06/22/18
--- NOTE | 2018-06-22 13:09 | PCM.PN.ORT ---
Subjective: Doing better in regards to the right upper extremity pain controlled swelling down and range of motion improving Objective: Right upper extremity dressings with minimal serous drainage incisions well approximated no fluctuance no sign of deep infection range of motion of elbow and wrist improving remains neurovascularly intact swelling in fingers present but better - Physical Exam Vital Signs Temp Pulse Resp BP Pulse Ox 97.8 F 115 H 18 129/71 H 95 06/22/18 08:31 06/22/18 08:34 06/22/18 08:34 06/22/18 08:31 06/22/18 08:31 Oxygen Flow Rate (L/min) 2 Oxygen Delivery Method Nasal Cannula Weight: 151 lb 12.789 oz Body Mass Index (BMI) 27.9 Finger Stick Blood Glucose 154 Intake and Output for Last 24 Hours 06/20/18 06/21/18 06/22/18 23:59 23:59 23:59 Intake Total 4382 / 4382 3623 / 3623 3604 / 3604 Output Total 2200 / 2200 4175 / 4175 1425 / 1425 Balance 2182 / 2182 -552 / -552 2179 / 2179 Microbiology Past 72 Hours 06/16/18 14:17 Blood Culture - Final Blood Culture (Wb) - Anticubital Left Meth. resistant Staph. aureus 06/17/18 07:28 Blood Culture - Final Blood Culture (Wb) - Right Hand No growth in 5 days. 06/17/18 07:20 Blood Culture - Final Blood Culture (Wb) - Left Hand No growth in 5 days. 06/17/18 14:56 Gram Stain - Final Tissue - Other Wound Culture - Final Vancomycin Resist. E. faecalis Streptococcus pseudoporcinus Meth. resistant Staph. aureus Streptococcus group F Anaerobic Culture - Final No anaerobic bacteria isolated. 06/17/18 14:56 Gram Stain - Final Tissue - Sacral Wound Culture - Final Proteus mirabilis Streptococcus mitis/ oralis Vancomycin Resist. E. faecalis Meth. resistant Staph. aureus Enterococcus raffinosus Acinetobacter baumannii Anaerobic Culture - Final No anaerobic bacteria isolated. 06/16/18 14:30 Blood Culture - Final Blood Culture (Wb) - Right Forearm No growth in 5 days. 06/17/18 14:56 Gram Stain - Final Bone - Other Wound Culture - Final Vancomycin Resist. E. faecalis Meth. resistant Staph. aureus Proteus mirabilis Actinomyces odontolyticus Enterococcus raffinosus Anaerobic Culture - Final Anaerobic cocci 06/17/18 14:56 Gram Stain - Final Bone - Other Wound Culture - Final Meth. resistant Staph. aureus Staphylococcus epidermidis Presumptive C albicans Anaerobic Culture - Final No anaerobic bacteria isolated. 06/17/18 14:56 Gram Stain - Final Tissue - Other Wound Culture - Final Meth. resistant Staph. aureus Proteus mirabilis Vancomycin Resist. E. faecalis Streptococcus constellatus con Anaerobic Culture - Final Anaerobic cocci 06/17/18 14:56 Gram Stain - Final Bone - Other Wound Culture - Final Meth. resistant Staph. aureus Streptococcus mitis/ oralis Enterococcus raffinosus Anaerobic Culture - Final Anaerobic cocci 06/17/18 13:32 Gram Stain - Final Aspirate - Wrist Wound Culture - Final Meth. resistant Staph. aureus Anaerobic Culture - Final No anaerobic bacteria isolated. 06/17/18 07:35 Gram Stain - Final Fluid - Synovial (joint) Body Fluid Culture - Final Meth. resistant Staph. aureus Anaerobic Culture - Final No anaerobic bacteria isolated. Laboratory Tests Past 24 Hrs 06/22/18 05:10 WBC 4.6 RBC 3.35 L Hgb 9.5 L Hct 29.3 L MCV 87.5 MCH 28.4 MCHC 32.4 RDW 18.6 H RDW Differential 58.6 H Plt Count 99 L MPV 9.1 POC Glucose 06/22/18 06/22/18 06/21/18 11:21 06:43 21:25 POC Glucose 145 H 102 221 H 06/21/18 16:47 POC Glucose 261 H Medical Necessity - Tobacco Use Smoking Status: Never smoker Tobacco Use: Non-smoker Assessment/Plan All Active Problems (Last Reviewed 03/24/18 @ 13:10 by Jennifer Bee) Abscess, wrist (Acute) Septic olecranon bursitis of right elbow (Acute) Skin necrosis (Acute) Infected decubitus ulcer (Acute) Olecranon bursitis of right elbow (Acute) Severe sepsis (Acute) Complicated urinary tract infection (Acute) Hematuria (Acute) Pressure ulcer of left buttock, stage 2 (Resolved) Recommend dressing change daily may shower in regards to the right upper extremity clean daily if not showering with Betadine and redress with 4 x 4's and light dressing. Encourage finger elbow and wrist range of motion weightbearing as tolerated. Sutures to be removed 2 weeks postoperatively. continue antibiotics per primary.
--- NOTE | 2018-06-22 13:13 | DS.PCM_ITS ---
<Brittany Parker - Last Filed: 06/22/18 13:25> Discharge Date and Diagnosis Date of Admission: 06/16/18 Date of Discharge: 06/22/18 - Primary Discharge Diagnosis Active and Suspected Problems (Last Reviewed 03/24/18 @ 13:10 by Jennifer Bee) 1. Severe sepsis secondary to multi-organism infected sacral/ischial decubitus ulcers with associated MRSA bacteremia and MRSA Olecranon bursitis 2. Sacral/ischial polymicrobial osteomyelitis 3. MRSA Olecranon bursitis 4. Type 2 diabetes mellitus 5. Hypertension 6. Hyperlipidemia 7. Spinal stenosis and peripheral neuropathy with neurogenic bladder, paraplegia 8. Acute blood loss anemia secondary to wound debridement on anemia of chronic disease 9. 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 Right ischial pressure sore, stage 4 (Chronic) Open wound of left thigh (Chronic) traumatic skin tear posterior thigh Incompetent urethral closure mechanism (Chronic) Neurogenic bladder (Chronic) Stage II pressure ulcer (Chronic) Chronic suprapubic catheter (Chronic) Diabetes mellitus type 2 in nonobese (Chronic) Hypertension (Chronic) Gout (Chronic) with arthropathy Pressure ulcer of left buttock, stage 3 (Chronic) left lower buttock/upper thigh area Diabetes mellitus (Chronic) Pressure ulcer of right buttock, stage 3 (Chronic) Diabetic neuropathy, type II diabetes mellitus (Chronic) Malnutrition (Chronic) Back pain (Chronic) Arthritis (Chronic) 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 significance to followup Anemia of chronic disease (Chronic) Physical deconditioning (Chronic) Dupuytren's contracture of right hand (Chronic) Spinal stenosis (Chronic) Hyperlipidemia (Chronic) RP (rectal prolapse) (Chronic) Hospital Course and Treatment Imaging Results: Diagnostic Data Upper Extremity MRI 06/16/18 16:45 IMPRESSION: Olecranon bursitis with fluid collection. Abscess could be considered in the setting of infection. Degenerative change. Joint effusion with loose bodies. Electronically Signed: Kirill Akhtar MD at 20:27 EST , Service support , Pelvis CT 06/16/18 21:15 IMPRESSION: 1. Rea catheter in the bladder. 2. Dense fluid within the bladder which could represent blood or blood clots. Pus is possible. 3. Free fluid in the pelvis posterior to the bladder. 4. Soft tissue ulcerations in the buttock regions bilaterally extending posterior to the ischium. No drainable abscess is seen at this time. 5. Left lower quadrant ostomy. 6. Degenerative changes in the spine. No demonstrated definite destructive bony process. If osteomyelitis is suspected clinically, three-phase bone scan might be of value. Electronically Signed: Dutch Willoughby MD at 23:11 EST Tel , Service support , Consultations 06/16/18 16:45 Consult: Onc/Wound/cigarette paper tester Routine Comment: Dr. Myles- Plastic Surgery Dr. Luther- Orthopedics Dr. Joseph- ID Operations: - - 2-D Echocardiogram, Wound Vac placement, - - Excision infected necrotic sacral pressure sore stage IV with partial osteotomy for osteomyelitis. Excision left ischial pressure sore stage IV with partial ostectomy for osteomyelitis. Excision right ischial pressure sore stage IV with partial ostectomy for osteomyelitis. Open irrigation and debridement of right elbow bursa and subcutaneous abscess of wrist. PICC line placement. Summary of Care Provided: The patient is a 68 year old F admitted 06/16/2018 due to right elbow redness, foul odor from coccyx decubitus ulcers, fatigue, malaise. 1. Severe sepsis secondary to multi-organism infected decubitus ulcer of the sacrum/ischium leading to MRSA bacteremia and right wrist and elbow MRSA septic arthritis. Blood cultures positive for MRSA 06/16/2018. Repeat blood cultures show no growth 06/16/18. Second repeat blood cultures pending. 2. Infected/necrotic decubitus sacral and ischial ulcer-history of multiple chronic wounds including chronic bilateral ischial ulcers stage IV with chronic osteomyelitis left ischial area. Dr. Myles consulted, patient underwent wound debridement of coccyx and BL ischial ulcers 06/17/18. Patient had wound VAC applied 06/18/18. Patient will continue wound VAC with dressing changes every 3 weeks. Sacral tissue culture growing multiple organisms including Proteus mirabilis, streptococcal mitis, VRE, MRSA, enterococcus raffinosus. Left ischial bone culture positive for MRSA, Staphylococcus epidermidis and alpha hemolytic organism. ID consulted. PICC line placed 06/19/18. Echocardiogram with no evidence of endocarditis. Patient will continue IV antibiotics including IV vancomycin and IV Zosyn with stop date 07/29/2018 as well as oral Bactrim and Diflucan. Follow-up at wound center in 2 weeks with ID/Dr. Myles. 3. Olecranon bursitis-Dr. Aquino consulted. MRI shows olecranon bursitis with fluid collection. Possible abscess. Bursa was aspirated and culture sent. Culture of wrist and synovial joint fluid showing MRSA. Patient underwent open irrigation and debridement of right elbow bursa and subcutaneous abscess of wrist 06/17/[address] Aquino. Dressing intact. Antibiotic regimen as noted above. Sutures may be removed 17 days following surgery. Continue dry sterile dressing. 4. Type 2 diabetes [id number] ACHS with sliding scale insulin. Continue previous oral regimen at discharge. 5. Hypertension-continue home losartan regimen. 6. Hyperlipidemia-continue statin. 7. Spinal stenosis and peripheral neuropathy with neurogenic bladder, paraplegia-chronic Rea catheter. PT/OT. Resides at [facility]. 8. Acute blood loss anemia secondary to wound debridement on anemia of chronic disease-2 units PRBC ordered for Hgb 6.6. Hemoglobin has since remained stable. 9. Thrombocytopenia-suspect secondary to #1 and severe infection. General: Alert, Oriented x3, Cooperative HEENT: Atraumatic, PERRLA, EOMI, Normocephalic Neck: Supple, No JVD, Negative Carotid Bruits Lungs: Clear to auscultation, Normal air movement Cardiovascular: Regular rate, Regular Rhythm, Normal S1, Normal S2, No murmurs Abdomen: Bowel Sounds Present, Soft, Non Tender, Non-Distended Extremities: No clubbing, No cyanosis, No edema Skin: No rashes, - - Bilateral stage III-IV ischial decubitus ulcers, stage IV sacral pressure ulcer, right elbow erythema-status post aspiration. Dressings/wound VAC intact. Musculoskeletal: No Tenderness to Palpation of Joints or Extremities Neurological: Cranial nerves II-XII grossly intact, Neuro grossly intact Psych/Mental Status: Normal Affect, Appropriate Patient seen and examined prior to discharge. Physical assessment as noted above. Patient is stable for discharge with follow up recommendations as noted above. This patient was seen by AVELINO Fuchs under the supervision of Dr. Muñoz. - Physical Exam Vital Signs Temp Pulse Resp BP Pulse Ox 97.8 F 115 H 18 129/71 H 95 06/22/18 08:31 06/22/18 08:34 06/22/18 08:34 06/22/18 08:31 06/22/18 08:31 Oxygen Flow Rate (L/min) 2 Oxygen Delivery Method Nasal Cannula Weight: 151 lb 12.789 oz Body Mass Index (BMI) 27.9 Finger Stick Blood Glucose 154 Intake and Output for Last 24 Hours 06/20/18 06/21/18 06/22/18 23:59 23:59 23:59 Intake Total 4382 / 4382 3623 / 3623 3604 / 3604 Output Total 2200 / 2200 4175 / 4175 1425 / 1425 Balance 2182 / 2182 -552 / -552 2179 / 2179 Microbiology Past 72 Hours 06/16/18 14:17 Blood Culture - Final Blood Culture (Wb) - Anticubital Left Meth. resistant Staph. aureus 06/17/18 07:28 Blood Culture - Final Blood Culture (Wb) - Right Hand No growth in 5 days. 06/17/18 07:20 Blood Culture - Final Blood Culture (Wb) - Left Hand No growth in 5 days. 06/17/18 14:56 Gram Stain - Final Tissue - Other Wound Culture - Final Vancomycin Resist. E. faecalis Streptococcus pseudoporcinus Meth. resistant Staph. aureus Streptococcus group F Anaerobic Culture - Final No anaerobic bacteria isolated. 06/17/18 14:56 Gram Stain - Final Tissue - Sacral Wound Culture - Final Proteus mirabilis Streptococcus mitis/ oralis Vancomycin Resist. E. faecalis Meth. resistant Staph. aureus Enterococcus raffinosus Acinetobacter baumannii Anaerobic Culture - Final No anaerobic bacteria isolated. 06/16/18 14:30 Blood Culture - Final Blood Culture (Wb) - Right Forearm No growth in 5 days. 06/17/18 14:56 Gram Stain - Final Bone - Other Wound Culture - Final Vancomycin Resist. E. faecalis Meth. resistant Staph. aureus Proteus mirabilis Actinomyces odontolyticus Enterococcus raffinosus Anaerobic Culture - Final Anaerobic cocci 06/17/18 14:56 Gram Stain - Final Bone - Other Wound Culture - Final Meth. resistant Staph. aureus Staphylococcus epidermidis Presumptive C albicans Anaerobic Culture - Final No anaerobic bacteria isolated. 06/17/18 14:56 Gram Stain - Final Tissue - Other Wound Culture - Final Meth. resistant Staph. aureus Proteus mirabilis Vancomycin Resist. E. faecalis Streptococcus constellatus con Anaerobic Culture - Final Anaerobic cocci 06/17/18 14:56 Gram Stain - Final Bone - Other Wound Culture - Final Meth. resistant Staph. aureus Streptococcus mitis/ oralis Enterococcus raffinosus Anaerobic Culture - Final Anaerobic cocci 06/17/18 13:32 Gram Stain - Final Aspirate - Wrist Wound Culture - Final Meth. resistant Staph. aureus Anaerobic Culture - Final No anaerobic bacteria isolated. 06/17/18 07:35 Gram Stain - Final Fluid - Synovial (joint) Body Fluid Culture - Final Meth. resistant Staph. aureus Anaerobic Culture - Final No anaerobic bacteria isolated. Laboratory Tests Past 24 Hrs 06/22/18 05:10 WBC 4.6 RBC 3.35 L Hgb 9.5 L Hct 29.3 L MCV 87.5 MCH 28.4 MCHC 32.4 RDW 18.6 H RDW Differential 58.6 H Plt Count 99 L MPV 9.1 POC Glucose 06/22/18 06/22/18 06/21/18 11:21 06:43 21:25 POC Glucose 145 H 102 221 H 06/21/18 16:47 POC Glucose 261 H Home Medications: Medications to take at Discharge Allopurinol [Zyloprim] 200 mg PO DAILY 07/05/14 Multivitamins,Therapeutic [Multivitamin] 1 tab PO DAILY 07/05/14 Timolol Maleate [Timoptic-XE 0.5%] 1 drp EACH EYE DAILY 07/05/14 Ascorbic Acid [Vitamin C] 500 mg PO DAILY@0800 09/09/17 Metformin HCl [Glucophage] 1,000 mg PO BID 02/26/18 Atorvastatin Calcium [Lipitor] 10 mg PO QHS 06/16/18 Gabapentin [Neurontin] 100 mg PO TID 06/16/18 Lactobacillus Acidophilus [Acidophilus] 1 cap PO DAILY 06/16/18 Linagliptin [Tradjenta] 5 mg PO DAILY 06/16/18 Polyethylene Glycol 3350 [Miralax] 17 gm PO DAILY 06/16/18 Fluconazole [Diflucan] 400 mg PO DAILY 38 Days #38 tab 06/22/18 Glucerna Shake 120 ml PO 4X/DAY liquid 06/22/18 Insulin Lispro [Humalog KwikPen] See Protocol SC ACHS insuln.pen 06/22/18 Losartan Potassium [Cozaar] 25 mg PO DAILY tablet 06/22/18 Metoprolol Tartrate [Lopressor (beta honey)] 25 mg PO BID tablet 06/22/18 Oxycodone HCl/Acetaminophen [Oxycodone-Acetaminophen 5-325] 1 tab PO Q4H PRN PRN #10 tab 06/22/18 Piperacil/Tazobactam [Zosyn] 3.375 gm IV Q8 38 Days #114 vial 06/22/18 Potassium Chloride [K-Dur] 20 meq PO DAILYCM tablet 06/22/18 Smz/Tmp Ds [Bactrim Ds] 1 tab PO BID 38 Days #76 tab 06/22/18 Vancomycin IV 750 mg IV Q12H 38 Days #76 vial 06/22/18 Following Prescrptions Were Given to Patient: Oxycodone HCl/Acetaminophen [Oxycodone-Acetaminophen 5-325] 1 tab PO Q4H PRN PRN #10 tab PRN Reason: Pain Fluconazole [Diflucan] 400 mg PO DAILY 38 Days #38 tab Piperacil/Tazobactam [Zosyn] 3.375 gm IV Q8 38 Days #114 vial Vancomycin IV 750 mg IV Q12H 38 Days #76 vial Smz/Tmp Ds [Bactrim Ds] 1 tab PO BID 38 Days #76 tab Primary Care Physician: Jones Esquivel MD [Primary Care Provider] - Please follow up with your Primary Care Physician in: 1 Week Please Follow Up With: Wesley Myles MD When: 2 Weeks at Wound Center Disposition: [facility] facility Minutes spent on discharge:: 35 Patient Condition:: Stable Medical Necessity - Tobacco Use Smoking Status: Never smoker Tobacco Use: Non-smoker Meaningful Use Info Meaningful Use Diagnoses (Choose all that apply): None applicable <[place] - Last Filed: 06/24/18 06:52> Discharge Date and Diagnosis - Secondary Discharge Diagnosis Chronic Problems (Last Reviewed 03/24/18 @ 13:10 by Jennifer Bee) Chronic osteomyelitis of left pelvic region (Chronic) 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 Right ischial pressure sore, stage 4 (Chronic) Open wound of left thigh (Chronic) traumatic skin tear posterior thigh Incompetent urethral closure mechanism (Chronic) Neurogenic bladder (Chronic) Stage II pressure ulcer (Chronic) Chronic suprapubic catheter (Chronic) Diabetes mellitus type 2 in nonobese (Chronic) Hypertension (Chronic) Gout (Chronic) with arthropathy Pressure ulcer of left buttock, stage 3 (Chronic) left lower buttock/upper thigh area Diabetes mellitus (Chronic) Pressure ulcer of right buttock, stage 3 (Chronic) Diabetic neuropathy, type II diabetes mellitus (Chronic) Malnutrition (Chronic) Back pain (Chronic) Arthritis (Chronic) 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 significance to followup Anemia of chronic disease (Chronic) Physical deconditioning (Chronic) Dupuytren's contracture of right hand (Chronic) Spinal stenosis (Chronic) Hyperlipidemia (Chronic) RP (rectal prolapse) (Chronic) Hospital Course and Treatment Consultations 06/16/18 16:45 Consult: Onc/Wound/cigarette paper tester Routine Comment: Summary of Care Provided: This patient was seen in conjunction with Brittany Parker NP. I have independently interviewed and examined the patient and reviewed pertinent historical, laboratory, and other data. Please refer to her note for patient's presentation, findings, and recommendations. 68-year-old female past medical history of chronic nonhealing bilateral lower extremity wounds as well as bilateral buttocks wound, history of spinal stenosis with peripheral neuropathy, complicated by neurogenic bladder with chronic Rea catheter, hypertension, type II DM, rectal prolapse status post colostomy who presented with fever chills and new onset right elbow erythema and fluctuance as well as offensive odor from the posterior coccygeal decubitus ulcers. On admission, patient was tachycardic, had a white cell count of 5, lactic acid was 5.8. Was managed as severe sepsis secondary to sacral/ischial poly- microbial osteomyelitis. Blood cultures were positive for MRSA. She has had aspiration of her olecranon bursa which had yasmin pus. She had open irrigation and debridement of right elbow bursa with subcutaneous abscess of the wrist on 06/17/18. She also had excision of infected necrotic sacral pressure sore, stage IV with partial ostectomy for osteomyelitis, excision of the left ischial pressure sore stage IV with partial ostectomy for osteomyelitis, excision of right ischial pressure sore stage IV with partial ostectomy for osteomyelitis done also on 06/17/18. Patient's wound cultures came back for multiple organisms including Proteus mirabilis, Streptococcus mitis/oralis, VRE, MRSA, enterococcus, Acinetobacter. Infectious disease was consulted, TTE was negative for vegetations. She was continued on IV vancomycin, Zosyn, fluconazole. Bactrim was also added to her medications. She was discharged on IV antibiotics for 6 weeks with a plan on 6-12 months of oral penicillin or amoxicillin after the IV about this. She will follow-up with infectious disease in 2-3 weeks at the wound center. Subjective: On the day of discharge, patient was seen and examined. Denied any new complains. Denies fever or chills or SOB Objective: Physical Exam General: Alert, Oriented x3, Cooperative HEENT: Atraumatic, PERRLA, EOMI, Normocephalic Neck: Supple, No JVD, Negative Carotid Bruits Lungs: Clear to auscultation, Normal air movement Cardiovascular: Regular rate, Regular Rhythm, Normal S1, Normal S2, No murmurs Abdomen: Bowel Sounds Present, Soft, Non Tender, Non-Distended Extremities: No clubbing, No cyanosis, No edema Skin: No rashes, - - Bilateral stage III-IV ischial decubitus ulcers, stage IV sacral pressure ulcer, right elbow erythema-status post aspiration. Dressings intact. Musculoskeletal: No Tenderness to Palpation of Joints or Extremities Neurological: Cranial nerves II-XII grossly intact Psych/Mental Status: Normal Affect, Appropriate - Physical Exam Vital Signs Temp Pulse Resp BP Pulse Ox 99.0 F 110 H 18 163/75 H 94 06/22/18 13:59 06/22/18 13:59 06/22/18 13:59 06/22/18 13:59 06/22/18 13:59 Oxygen Flow Rate (L/min) 2 Oxygen Delivery Method Room Air Weight: 68.855 kg Body Mass Index (BMI) 27.9 Finger Stick Blood Glucose 154 Intake and Output for Last 24 Hours 06/22/18 06/23/18 06/24/18 23:59 23:59 23:59 Intake Total 3604 / 3604 Output Total 1425 / 1425 Balance 2179 / 2179 Microbiology Past 72 Hours 06/21/18 14:15 Blood Culture - Preliminary Blood Culture (Wb) - No Site/Description Given No growth in 48 hours. 06/16/18 14:17 Blood Culture - Final Blood Culture (Wb) - Anticubital Left Meth. resistant Staph. aureus 06/17/18 07:28 Blood Culture - Final Blood Culture (Wb) - Right Hand No growth in 5 days. 06/17/18 07:20 Blood Culture - Final Blood Culture (Wb) - Left Hand No growth in 5 days. 06/17/18 14:56 Gram Stain - Final Tissue - Other Wound Culture - Final Vancomycin Resist. E. faecalis Streptococcus pseudoporcinus Meth. resistant Staph. aureus Streptococcus group F Anaerobic Culture - Final No anaerobic bacteria isolated. 06/17/18 14:56 Gram Stain - Final Tissue - Sacral Wound Culture - Final Proteus mirabilis Streptococcus mitis/ oralis Vancomycin Resist. E. faecalis Meth. resistant Staph. aureus Enterococcus raffinosus Acinetobacter baumannii Anaerobic Culture - Final No anaerobic bacteria isolated. 06/16/18 14:30 Blood Culture - Final Blood Culture (Wb) - Right Forearm No growth in 5 days. 06/17/18 14:56 Gram Stain - Final Bone - Other Wound Culture - Final Vancomycin Resist. E. faecalis Meth. resistant Staph. aureus Proteus mirabilis Actinomyces odontolyticus Enterococcus raffinosus Anaerobic Culture - Final Anaerobic cocci 06/17/18 14:56 Gram Stain - Final Bone - Other Wound Culture - Final Meth. resistant Staph. aureus Staphylococcus epidermidis Presumptive C albicans Anaerobic Culture - Final No anaerobic bacteria isolated. 06/17/18 14:56 Gram Stain - Final Tissue - Other Wound Culture - Final Meth. resistant Staph. aureus Proteus mirabilis Vancomycin Resist. E. faecalis Streptococcus constellatus con Anaerobic Culture - Final Anaerobic cocci 06/17/18 14:56 Gram Stain - Final Bone - Other Wound Culture - Final Meth. resistant Staph. aureus Streptococcus mitis/ oralis Enterococcus raffinosus Anaerobic Culture - Final Anaerobic cocci 06/17/18 13:32 Gram Stain - Final Aspirate - Wrist Wound Culture - Final Meth. resistant Staph. aureus Anaerobic Culture - Final No anaerobic bacteria isolated. 06/17/18 07:35 Gram Stain - Final Fluid - Synovial (joint) Body Fluid Culture - Final Meth. resistant Staph. aureus Anaerobic Culture - Final No anaerobic bacteria isolated. Discharge Diet: Low fat/ Low Cholesterol, 2000 mg Sodium Diet, Carb Control Diet Code Visit Inpatient E&M: 10933 Disch Hosp
--- NOTE | 2018-06-22 13:34 | NURSING ---
wound VAC dressings removed and a wet to dry dressing was applied since patient is being discharged back to the group home. pt tolerated well. Dr Aquino had been in and assessed the right arm incisions. cleansed incisions with NS. pat dry and applied a dry dressing. wrapped with trinh. pt tolerated well. KATYA wrap can now be left off according to Miles.
--- NOTE | 2018-06-22 13:59 | NURSING ---
REPORT CALLED TO NAYELI.
[2018-06-22] MEDS: HYDROcodone Bitartrate/Apap 5/325 Tablet PO (14:07)
== END 2018-06-22 14:36 | disposition skilled nursing facility (03) | DRG 710 ==
LOC: ED 14:37 → PCU 16:03
PROVIDERS: Internal Medicine; Nurse Practitioner Family; Orthopaedic Surgery; Surgery; Admitting Provider Family Medicine; Emergency Provider Emergency Medicine; Family Provider Family Medicine; PCP Family Medicine; Referring Provider Family Medicine; Visit Provider Internal Medicine
PROC: 0KBN0ZZ Excision of Right Hip Muscle, Open Approach (ICD-10-PCS; principal; 2018-06-17 11:30)
PROC: 0J9G3ZX Drainage of Right Lower Arm Subcutaneous Tissue and Fascia, Percutaneous Approach, Diagnostic (ICD-10-PCS; 2018-06-17 11:30)
DX: A41.89 Other specified sepsis (principal); R65.20 Severe sepsis without septic shock; L89.154 Pressure ulcer of sacral region, stage 4; L89.324 Pressure ulcer of left buttock, stage 4; L89.314 Pressure ulcer of right buttock, stage 4; M71.121 Other infective bursitis, right elbow; E11.42 Type 2 diabetes mellitus with diabetic polyneuropathy; D69.59 Other secondary thrombocytopenia; N31.9 Neuromuscular dysfunction of bladder, unspecified; B95.62 Methicillin resistant Staphylococcus aureus infection as the cause of diseases classified elsewhere; D62 Acute posthemorrhagic anemia; G82.20 Paraplegia, unspecified; E11.69 Type 2 diabetes mellitus with other specified complication; M86.652 Other chronic osteomyelitis, left thigh; B96.4 Proteus (mirabilis) (morganii) as the cause of diseases classified elsewhere; B95.4 Other streptococcus as the cause of diseases classified elsewhere; B95.2 Enterococcus as the cause of diseases classified elsewhere; B96.89 Other specified bacterial agents as the cause of diseases classified elsewhere; M48.00 Spinal stenosis, site unspecified; E78.5 Hyperlipidemia, unspecified; Z16.21 Resistance to vancomycin; Z79.899 Other long term (current) drug therapy; Z93.3 Colostomy status; Z79.84 Long term (current) use of oral hypoglycemic drugs; Z87.440 Personal history of urinary (tract) infections
CPT/HCPCS: 36415; 36569; 72192; 73223; 80048; 80202; 81001; 82962; 83036; 83605; 83735; 84134; 84484; 85025; 85027; 85652; 86140; 86850; 86900; 86920; 86922; 87040; 87070; 87075; 87077; 87086; 87088; 87102; 87106; 87186; 87205; 87206; 88305; 88311; 89060; 93005; 93306; 97110; 97162; 97165; 97530; 97535; 97803; 99285; A9585; J7030; J7040; J7050; P9016; A4216; J0295; J2405

== ENCOUNTER 2018-07-12 09:49 | Outpatient (RCR) | payer MEDICAID, SELFPAY ==
[2018-06-17 09:39] VITALS: BMI 27.9
[2018-07-12 09:51] VITALS: BP 116/66; PULSE 92; RESP 16; TEMP 35.8; BMI 27.9
--- NOTE | 2018-07-12 12:05 | HP.PCM_ITS ---
(1) Pressure sore of left ischium, stage 4 Status: Chronic Current Visit: Yes Code(s): L89.324 - Pressure ulcer of left buttock, stage 4 (2) Stage IV pressure ulcer of sacral region Status: Chronic Current Visit: Yes Code(s): L89.154 - Pressure ulcer of sacral region, stage 4 Comment: with infected necrosis (3) Right ischial pressure sore, stage 4 Status: Chronic Current Visit: Yes Code(s): L89.314 - Pressure ulcer of right buttock, stage 4 (4) chronic osteomyelitis left ischial area Status: Chronic Current Visit: Yes (5) Chronic osteomyelitis of left pelvic region Status: Chronic Current Visit: Yes Code(s): M86.652 - Other chronic osteomyelitis, left thigh (6) Diabetes mellitus Status: Chronic Current Visit: Yes Code(s): E11.9 - Type 2 diabetes mellitus without complications History of Present Illness Date of Service: 07/12/18 Chief Complaint: Left ischial pressure ulcer, Stage IV. Right ischial pressure ulcer, stage IV. Sacral ulcer, Stage IV. History of Wound: Patient is a 68-year-old female who has a chronic pressure ulcers of right and left ischium and sacral ulcer. She has a history of spinal stenosis and DM. She was admitted on 06/16/18 for sepsis. On 06/17/18 she went the OR for excision infected necrotic sacral pressure sore, Stage IV, with partioal ostectomy for osteomyelitis, and excision left ischial pressure sore, Stage IV, with partical ostectomy for osteomyelitis adn excision right ischial pressure sore, Stage IV , with partical ostectomy for osteomyelitis by Dr. Myles. At that same time Dr. Garza performed right septic bursitis of elbow and right wrist abscess. Cultures from 06/17/18: Sacral wound cultures were positive for Proteus mirabilis, Streptococcus mitis/oralis, Vancomycin Resist. E. faecalis, MRSA, Enterococcus raffinosus, Acinetobacter baumannii. Sacral Bone cultures showed VRE, MRSA, Proteus mirabilis, Actinomyces odontolyticus, Enterococcus raffinosus. Right ischial tissue grew MRSA, Proteus mirabilis, VRE, Streptococcus constellatus con. Right Ischial Bone culture grew: MRSA, Streptococcus mitis/oralis, Entercoccus raffinosus. Left ischial tissue grew: Vacomycin resist. E. faecalis, Streptococcus pseudoporcinus, MRSA and Streptococcus group F. Left ischial bone culture: MRSA, Staphylococcus epidermidis, and Presumptive C albicans. Patient has a PICC and is on Vancomycin, Zosyn and PO Bactrim. She has a roach and a colostomy. She is now at [place] for group home and rehab. Wound care: Wound VAC. She is taking Sigifredo. She states she has been eating well and denies any fever, chills or Nausea and Vomiting. Past Medical History Past Medical History: Chronic Problems (Last Reviewed 03/24/18 @ 13:10 by Jennifer Bee) Chronic osteomyelitis of left pelvic region (Chronic) 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 Right ischial pressure sore, stage 4 (Chronic) Open wound of left thigh (Chronic) traumatic skin tear posterior thigh Incompetent urethral closure mechanism (Chronic) Neurogenic bladder (Chronic) Stage II pressure ulcer (Chronic) Chronic suprapubic catheter (Chronic) Diabetes mellitus type 2 in nonobese (Chronic) Hypertension (Chronic) Gout (Chronic) with arthropathy Pressure ulcer of left buttock, stage 3 (Chronic) left lower buttock/upper thigh area Diabetes mellitus (Chronic) Pressure ulcer of right buttock, stage 3 (Chronic) Diabetic neuropathy, type II diabetes mellitus (Chronic) Malnutrition (Chronic) Back pain (Chronic) Arthritis (Chronic) 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 significance to followup Anemia of chronic disease (Chronic) Physical deconditioning (Chronic) Dupuytren's contracture of right hand (Chronic) Spinal stenosis (Chronic) Hyperlipidemia (Chronic) RP (rectal prolapse) (Chronic) Surgical History: - - Surgery for rectal prolapse with anterior resection and rectopexy at [facility] in 2008 and back surgery 1979. Colostomy was November 2012. Excision left ischial pressure sore with partial ostectomy for osteomyelitis and excision right ischial pressure sore and excision left lateral ankle pressure sore with partial ostectomy for osteomyelitis in 08/01. Allergies/Adverse Reactions: Allergies No Known Allergies Allergy (Verified 06/16/18 13:35) Home Medications: Ambulatory Orders Medication Instructions Recorded Allopurinol [Zyloprim] 200 mg PO DAILY 07/05/14 Multivitamins,Therapeutic 1 tab PO DAILY 07/05/14 [Multivitamin] Timolol Maleate [Timoptic-XE 0.5%] 1 drp EACH EYE DAILY 07/05/14 Ascorbic Acid [Vitamin C] 500 mg PO DAILY@0800 09/09/17 Metformin HCl [Glucophage] 1,000 mg PO BID 02/26/18 Atorvastatin Calcium [Lipitor] 10 mg PO QHS 06/16/18 Gabapentin [Neurontin] 100 mg PO TID 06/16/18 Lactobacillus Acidophilus 1 cap PO DAILY 06/16/18 [Acidophilus] Linagliptin [Tradjenta] 5 mg PO DAILY 06/16/18 Polyethylene Glycol 3350 [Miralax] 17 gm PO DAILY 06/16/18 Fluconazole [Diflucan] 400 mg PO DAILY 38 Days #38 tab 06/22/18 Glucerna Shake 120 ml PO 4X/DAY liquid 06/22/18 Insulin Lispro [Humalog KwikPen] See Protocol SC ACHS insuln.pen 06/22/18 Losartan Potassium [Cozaar] 25 mg PO DAILY tablet 06/22/18 Metoprolol Tartrate [Lopressor 25 mg PO BID tablet 06/22/18 (beta honey)] Oxycodone HCl/Acetaminophen 1 tab PO Q4H PRN PRN #10 tab 06/22/18 [Oxycodone-Acetaminophen 5-325] Piperacil/Tazobactam [Zosyn] 3.375 gm IV Q8 38 Days #114 vial 06/22/18 Potassium Chloride [K-Dur] 20 meq PO DAILYCM tablet 06/22/18 Smz/Tmp Ds [Bactrim Ds] 1 tab PO BID 38 Days #76 tab 06/22/18 Vancomycin IV 750 mg IV Q12H 38 Days #76 vial 06/22/18 - Family History Maternal Diabetes, Hypertension Paternal Diabetes, Hypertension Smoking Status: Never smoker Review of Systems Constitutional: Denies: Anorexia, Chills, Fever Eyes: Denies: Blurred vision HEENT: Denies: Difficulty Hearing, Difficulty Swallowing, Sinus Congestion Cardiovascular: Denies: Chest Pain, Palpitations Respiratory: Denies: Cough, Shortness of Breath Gastrointestinal: Reports: Diarrhea, - - has a colostomy. Denies: Nausea, Vomiting Genitourinary: Reports: - - has a roach Musculoskeletal: Reports: Joint swelling, Joint Tenderness, Muscle pain Skin: Reports: Wounds - Right ischial, left ischial and sacral stage IV ulcers Neurological: Denies: Balance problems, Blurred vision Endocrine: Reports: Heat/ Cold Intolerance - Physical Exam Vital Signs Temp Pulse Resp BP 96.5 F L 92 16 116/66 07/12/18 09:51 07/12/18 09:51 07/12/18 09:51 07/12/18 09:51 General: Alert, Oriented x3, Cooperative HEENT: Atraumatic Oral: Moist Mucosa Lungs: Normal air movement Cardiovascular: Regular rate Abdomen: Soft Extremities: Capillary Refill Less than 3 Seconds Skin: Ulcer/ Wound - Stage IV ulcer left and right ischial and sacrum Wound Measurements and Assessment WC - Nurse 1 - General Ulcer Measurement Start: 07/12/18 09:50 Freq: Status: Active Protocol: Activity Type Activity Date Activity User E-Sign Co-Sign Detail Recorded Client Recorded Date Recorded By Document 07/12/18 09:51 DL [id number] 07/12/18 10:16 DL 07/12/18 09:51 Wound Center Nurse 1 [Ulcer Assessment] #14 R Buttocks -Current Size (cm) - Length 6.5 -Current Size (cm) - Width 6 -Current Size (cm) - Depth 2 -Total Square Cm 39.0 -Photo Taken Yes -Exudate Amt Medium -Exudate Type Serosanguineous -Wound Margin Distinct, Outline Attached -Granulation Amt Large (67-100%) -Granulation Quality Red -Necrosis Amt Medium (34-66%) -Necrotic Tissue Type Adherent Slough -Structure Exposed N/A -Texture (Amirah-wound Skin Appearance) Scarring -Moisture (Amirah-wound Skin Appearance No Abnormality ) Dry/Scaly -Color (Amirah-wound Skin Appearance) Rubor -Temperature (Amirah-wound Skin No Abnormality Appearance) (Pt Warm) -Tenderness on Palpation (Amirah-wound No Skin Appearance) -Ulcer Cleansing Wound Cleanser -Foul Odor after Cleansing No -Anesthetic Used 4% Lidocaine Solution #13 Sacral -Current Size (cm) - Length 9.7 -Current Size (cm) - Width 7 -Current Size (cm) - Depth 2.7 -Total Square Cm 67.9 -Photo Taken Yes -Undermining/Tunneling Starts (O' 12 clock) -Undermining/Tunneling Ends (O'clock) 3 -Maximum Distance (cm) 0.7 -Exudate Amt Medium -Exudate Type Serosanguineous -Wound Margin Distinct, Outline Attached -Granulation Amt Medium (34-66%) -Granulation Quality Red -Necrosis Amt Medium (34-66%) -Necrotic Tissue Type Adherent Slough -Structure Exposed N/A -Texture (Amirah-wound Skin Appearance) Scarring -Moisture (Amirah-wound Skin Appearance No Abnormality ) -Color (Amirah-wound Skin Appearance) Rubor -Temperature (Amirah-wound Skin No Abnormality Appearance) (Pt Warm) -Tenderness on Palpation (Amirah-wound No Skin Appearance) -Ulcer Cleansing Wound Cleanser -Foul Odor after Cleansing No -Anesthetic Used 4% Lidocaine Solution #12 L Buttocks -Current Size (cm) - Length 8.2 -Current Size (cm) - Width 4.2 -Current Size (cm) - Depth 2.6 -Total Square Cm 34.44 -Photo Taken Yes -Undermining/Tunneling Starts (O' 7 clock) -Undermining/Tunneling Ends (O'clock) 10 -Maximum Distance (cm) 3.9 -Exudate Amt Medium -Exudate Type Serosanguineous -Wound Margin Distinct, Outline Attached -Granulation Amt Large (67-100%) -Granulation Quality Red -Necrosis Amt Medium (34-66%) -Necrotic Tissue Type Adherent Slough -Structure Exposed Bone -Texture (Amirah-wound Skin Appearance) Scarring -Moisture (Amirah-wound Skin Appearance No Abnormality ) -Color (Amirah-wound Skin Appearance) Rubor -Temperature (Amirah-wound Skin No Abnormality Appearance) (Pt Warm) -Tenderness on Palpation (Amirah-wound No Skin Appearance) -Ulcer Cleansing Wound Cleanser -Foul Odor after Cleansing No -Anesthetic Used 4% Lidocaine Solution WC - Nurse 2 - General Ulcer CM Notes Start: 07/12/18 09:50 Freq: Status: Active Protocol: Activity Type Activity Date Activity User E-Sign Co-Sign Detail Recorded Client Recorded Date Recorded By Document 07/12/18 11:04 TIMA [id number] 07/12/18 11:12 TIMA 07/12/18 11:04 Wound Center Nurse 2 [Procedure/Treatment] #14 R Buttocks -Time 11:07 -Correct Patient Yes -Correct Side, Site, Position Yes -Correct Procedure Yes -Procedure Performed Yes -Type of Procedure Debridement -Clinical Debridement Bone -Post Debridement Size (cm) - Length 9.0 -Post Debridement Size (cm) - Width 3.5 -Post Debridement Size (cm) - Depth 4 -Total Square Cm 31.50 -Wound/Ulcer Outcome Not Healed -Ulcer Cleansing Rinsed/ Irrigated with Saline -Foul Odor after Cleansing No -Bioengineered Tissue No -Bleeding Controlled with Pressure -Other tunnel 6:00-4. 5cm -Offloading No -Treatment Response Procedure Tolerated Well #13 Sacral -Time 11:05 -Correct Patient Yes -Correct Side, Site, Position Yes -Correct Procedure Yes -Procedure Performed Yes -Type of Procedure Debridement -Clinical Debridement Bone -Post Debridement Size (cm) - Length 9.8 -Post Debridement Size (cm) - Width 6.5 -Post Debridement Size (cm) - Depth 4.3 -Total Square Cm 63.70 -Wound/Ulcer Outcome Not Healed -Ulcer Cleansing Rinsed/ Irrigated with Saline -Foul Odor after Cleansing No -Bioengineered Tissue No -Bleeding Controlled with Pressure -Offloading No -Treatment Response Procedure Tolerated Well #12 L Buttocks -Time 11:05 -Correct Patient Yes -Correct Side, Site, Position Yes -Correct Procedure Yes -Procedure Performed Yes -Type of Procedure Debridement -Clinical Debridement Bone -Post Debridement Size (cm) - Length 7.0 -Post Debridement Size (cm) - Width 4.0 -Post Debridement Size (cm) - Depth 2.0 -Total Square Cm 28.00 -Wound/Ulcer Outcome Not Healed -Ulcer Cleansing Rinsed/ Irrigated with Saline -Foul Odor after Cleansing No -Bioengineered Tissue No -Bleeding Controlled with Pressure -Other tunnel--8.5cm -Offloading No -Treatment Response Procedure Tolerated Well [See Physician Procedure note for Specifics] Pain Scale: 0-10 Numeric [Pain] -Is Patient Pain Free? Yes Musculoskeletal: No Tenderness to Palpation of Joints or Extremities Neurological: Neuro grossly intact Psych/Mental Status: Normal Affect, Appropriate Debridement Note Post-Debridement Measurements/Treatment WC - Nurse 2 - General Ulcer CM Notes Start: 07/12/18 09:50 Freq: Status: Active Protocol: Activity Type Activity Date Activity User E-Sign Co-Sign Detail Recorded Client Recorded Date Recorded By Document 07/12/18 11:04 [id number] 07/12/18 11:12 07/12/18 11:04 Wound Center Nurse 2 #14 R Buttocks -Time 11:07 -Correct Patient Yes -Correct Side, Site, Position Yes -Correct Procedure Yes -Procedure Performed Yes -Type of Procedure Debridement -Clinical Debridement Bone -Post Debridement Size (cm) - Length 9.0 -Post Debridement Size (cm) - Width 3.5 -Post Debridement Size (cm) - Depth 4 -Total Square Cm 31.50 -Wound/Ulcer Outcome Not Healed -Ulcer Cleansing Rinsed/ Irrigated with Saline -Foul Odor after Cleansing No -Bioengineered Tissue No -Bleeding Controlled with Pressure -Other tunnel 6:00-4. 5cm -Offloading No -Treatment Response Procedure Tolerated Well #13 Sacral -Time 11:05 -Correct Patient Yes -Correct Side, Site, Position Yes -Correct Procedure Yes -Procedure Performed Yes -Type of Procedure Debridement -Clinical Debridement Bone -Post Debridement Size (cm) - Length 9.8 -Post Debridement Size (cm) - Width 6.5 -Post Debridement Size (cm) - Depth 4.3 -Total Square Cm 63.70 -Wound/Ulcer Outcome Not Healed -Ulcer Cleansing Rinsed/ Irrigated with Saline -Foul Odor after Cleansing No -Bioengineered Tissue No -Bleeding Controlled with Pressure -Offloading No -Treatment Response Procedure Tolerated Well #12 L Buttocks -Time 11:05 -Correct Patient Yes -Correct Side, Site, Position Yes -Correct Procedure Yes -Procedure Performed Yes -Type of Procedure Debridement -Clinical Debridement Bone -Post Debridement Size (cm) - Length 7.0 -Post Debridement Size (cm) - Width 4.0 -Post Debridement Size (cm) - Depth 2.0 -Total Square Cm 28.00 -Wound/Ulcer Outcome Not Healed -Ulcer Cleansing Rinsed/ Irrigated with Saline -Foul Odor after Cleansing No -Bioengineered Tissue No -Bleeding Controlled with Pressure -Other tunnel--8.5cm -Offloading No -Treatment Response Procedure Tolerated Well Pain Scale: 0-10 Numeric Is Patient Pain Free? Yes Wound debrided: Left ischium ulcer Laterality: Left Wound Grade/Stage: Stage IV Type of Debridement: Excisional debridement Anesthesia Used: 4% Lidocaine Solution Depth: Down to and including healthy tissue, in the subcutaneous layer, to muscle, to bone Percentage of wound debrided: 100 Instrument Used: 7mm curette Tissue Removed: Subcutaneous tissue and slough Severity: Fat Layer Exposed - bone palpated Amount of bleeding with debridement: Mild Bleeding Controlled with: Pressure Patient tolerated procedure well - Additional Wound Wound debrided: Sacrum Laterality: Not Applicable Wound Grade/Stage: Stage IV Type of Debridement: Excisional debridement Anesthesia Used: 4% Lidocaine Solution Depth: Down to and including healthy tissue, in the subcutaneous layer, to muscle, to bone Percentage of wound debrided: 100 Instrument Used: 7mm curette Tissue Removed: Subcutaneous tissue and slough Severity: Fat Layer Exposed - bone palpated Amount of bleeding with debridement: Mild Bleeding Controlled with: Pressure Patient tolerated procedure: Patient tolerated procedure well - Additional Wound Wound debrided: Right ischial ulcer Laterality: Right Wound Grade/Stage: Stage IV Type of Debridement: Excisional debridement Anesthesia Used: 4% Lidocaine Solution Depth: Down to and including healthy tissue, in the subcutaneous layer, to muscle, to bone Percentage of wound debrided: 100 Instrument Used: 7mm curette Tissue Removed: Subcutaneous tissue and slough Severity: Fat Layer Exposed - Bone palpated Bleeding Controlled with: Pressure Patient tolerated procedure: Patient tolerated procedure well Assessment/Plan Active Problems (Last Reviewed 03/24/18 @ 13:10 by Jennifer Bee) Chronic osteomyelitis of left pelvic region (Chronic) 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 Right ischial pressure sore, stage 4 (Chronic) Diabetes mellitus (Chronic) chronic osteomyelitis left ischial area (Chronic) Pressure sore of left ischium, stage 4 (Chronic) Assessment: 1. Stage IV pressure ulcer of sacral region. 2. Right ischial pressure sore, stage 4. 3. Pressure sore of left ischium, stage 4. 4. Chronic osteomyelitis of left pelvic region. 5. Diabetes mellitus Plan: Patient was evaluated at the wound center today. A subcutaneous debridement was performed today. The patient toerated the procedure well. The patients wound care will consist of wound VAC to bilateral ischial ulcers and to sacral ulcer. She has a PICC line and is receiving Vancomycin and Zosyn and po Bactrim. She has been drinking Sigifredo daily. She is currently in [facility]. Follow up in two weeks. Code Visit [id number]
== END 2018-07-18 23:59 ==
LOC: WC 09:49
PROVIDERS: Family Provider Family Medicine; PCP Family Medicine; Visit Provider Nurse Practitioner Family
DX: E11.622 Type 2 diabetes mellitus with other skin ulcer (principal); L89.154 Pressure ulcer of sacral region, stage 4; M86.652 Other chronic osteomyelitis, left thigh; L89.224 Pressure ulcer of left hip, stage 4; L89.214 Pressure ulcer of right hip, stage 4; I10 Essential (primary) hypertension; E11.40 Type 2 diabetes mellitus with diabetic neuropathy, unspecified; M19.90 Unspecified osteoarthritis, unspecified site; E78.5 Hyperlipidemia, unspecified; Z79.899 Other long term (current) drug therapy
CPT/HCPCS: 11044; 11047; 99213; G0463

== ENCOUNTER 2018-07-20 19:52 | Inpatient (IN) | payer MEDICAID, SELFPAY ==
[2018-07-20] VITALS (7 sets, daily range): BP systolic 100–132; BP diastolic 60–76; PULSE 78–100; RESP 11–16; TEMP 36.4–36.7; O2SAT 97–100; BMI 27.5
--- NOTE | 2018-07-20 20:28 | EKG12_ITS ---
Test Reason : Blood Pressure : / mmHG Vent. Rate : 080 BPM Atrial Rate : 074 BPM P-R Int : 000 ms QRS Dur : 110 ms QT Int : 422 ms P-R-T Axes : 000 072 152 degrees QTc Int : 486 ms Atrial fibrillation Low voltage QRS Septal infarct , age undetermined Abnormal ECG Left bundle branch block Confirmed by AYALA GRIFFIN ([id number]), editorial director SHERYL QUEEN ([id number]) on 07/23/2018 11:17:29 AM Referred By: Jaison Lopez Confirmed By:AYALA GRIFFIN
[2018-07-20 20:54] LABS: Absolute Lymphocyte Count 0.96 X10^3/ul (0.83-4.51); Absolute Neutrophil Count 8.9 X10^3/uL (2.0-7.7); Basophil# 0.02 X10^3/uL; Basophil% 0.2 % (0-1); Eosinophil# 0.09 X10^3/uL; Eosinophils% 0.9 % (0-5); Hematocrit 28.3 % (37-47); Hemoglobin 8.5 g/dl (12.0-15.0); Lymphocyte # 0.96 X10^3/ul (4.0); Lymphocyte % 9.3 % (19-41); Mean Corpuscular Hgb 29.1 pg (27.0-32.0); Mean Corpuscular Volume 96.9 fL (81-99); Mean Platelet Vol. 8.8 fl (6.2-12.0); Monocyte# 0.24 X10^3/uL; Monocyte% 2.3 % (0-10); Neutrophil # 8.93 X10^3/uL (2.7-7.7); Neutrophil % 86.7 % (47-70); Platelet Count 239 K/mm3 (150-450); RBC Distribution Width CV 22.5 % (11.6-14.6); RBC Distribution Width SD 78.4 fl (35.1-43.9); Red Blood Count 2.92 M/mm3 (4.2-5.4); White Blood Count 10.3 K/mm3 (4.4-11.0)
[2018-07-20 20:59] LABS: Differential Indicated SCAN CRITERIA MET; POSITIVE COUNT NO; POSITIVE DIFFERENTIAL NO; POSITIVE MORPHOLOGY YES
[2018-07-20 21:09] LABS: Anion Gap 14 (5-15); BUN 91 mg/dL (7-18); BUN/Creat Ratio 43.1 RATIO (10-20); Calcium,Total 9.2 mg/dL (8.5-10.1); Chloride 113 mmol/L (98-107); Creatinine, Serum 2.11 mg/dL (0.55-1.02); EST Glomerular Filtration Rate 25 mL/min (>60); Est Glom Filt Rate - Afr Amer 30 mL/min (>60); Estimated Creatinine Clearance 20.82 ml/min; Glucose 73 mg/dL (74-106); Potassium 9.2 mmol/L (3.5-5.1); Sodium Level 139 mmol/L (136-145)
--- NOTE | 2018-07-20 21:10 | ED.RN ---
RECEIVED CRITICAL LAB VALUE OF 9.5 FOR K.
[2018-07-20 21:23] LABS: Anisocytosis 1+; Differential Comment SCANNED
[2018-07-20] MEDS: Albuterol 2.5 MG/3 ML VIAL.NEB. INHALATION (21:25)
[2018-07-20] MEDS: Dextrose 50%-Water 25 GM/50 ML DISP.SYRIN IV (22:11)
[2018-07-20] MEDS: 0.9% Normal Saline 1,000 ML 1000 ML IV (22:11)
[2018-07-20] MEDS: Calcium Gluconate 1 GM/10 ML Vial IV (22:11)
--- NOTE | 2018-07-20 22:18 | EKG12_ITS ---
Test Reason : REPEAT Blood Pressure : / mmHG Vent. Rate : 101 BPM Atrial Rate : 102 BPM P-R Int : 224 ms QRS Dur : 094 ms QT Int : 360 ms P-R-T Axes : 079 066 083 degrees QTc Int : 466 ms Sinus tachycardia with 1st degree A-V block Low voltage QRS Borderline ECG Confirmed by AYALA GRIFFIN ([id number]), assignment editor SHERYL QUEEN ([id number]) on 07/23/2018 11:17:56 AM Referred By: Jaison Lopez Confirmed By:AYALA GRIFFIN
[2018-07-20 22:34] LABS: CPK Total, Creatine Kinase 46 U/L (26-192)
[2018-07-20 22:42] LABS: Anion Gap 11 (5-15); BUN 93 mg/dL (7-18); BUN/Creat Ratio 44.1 RATIO (10-20); Calcium,Total 9.1 mg/dL (8.5-10.1); Chloride 113 mmol/L (98-107); Creatinine, Serum 2.11 mg/dL (0.55-1.02); EST Glomerular Filtration Rate 25 mL/min (>60); Est Glom Filt Rate - Afr Amer 30 mL/min (>60); Estimated Creatinine Clearance 20.82 ml/min; Glucose 70 mg/dL (74-106); Potassium 9.8 mmol/L (3.5-5.1); Sodium Level 136 mmol/L (136-145)
--- NOTE | 2018-07-20 23:15 | ED.VISSUMM ---
- ER Visit Summary Date of Service: 07/20/18 Chief Complaint: Hyperkalemia History of Present Illness: The patient is a 68 F sent in from [facility] for a potassium of 9.1. Patient reports generalized fatigue and intermittent nausea. 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 Wound VAC was removed prior to transport. She is not ambulatory at baseline. She also has a history of chronic osteomyelitis to the pelvis and spinal stenosis. She is a suprapubic catheter and colostomy. Physical Examination: Blood pressure is 121/76, temperature 97.6, heart rate 92, respiratory rate 14, pulse ox 100% on room air. Patient is lying in bed in no acute distress. She answers questions appropriately. Head neck examination reveals mild edema below both eyes. Heart is regular rate and rhythm. Lung sounds are clear. Abdomen is soft and nontender. Colostomy is noted in the anterior abdominal wall. Suprapubic catheter is noted with yellow urine. Test Results: Initial labs are drawn off existing PICC line. White count is normal. Hemoglobin is 8.5. Chemistry studies show potassium of 9.2, glucose 73, BUN 91, creatinine 2.11. Troponin is less than 0.015. Total CPK is 46. EKG is A. fib at 80 with evidence of a conduction delay. I do not see history of A. fib in this patient. Emergency Department Course and Treatment: A peripheral IV line was started and BMP was repeated. In the meantime she was treated with IV calcium, insulin and D50, butyryl, and Kayexalate along with IV fluids. Repeat BMP revealed a potassium of 9.8 with moderate hemolysis noted. BUN is 93 and creatinine 2.11. At this time patient is resting comfortably. She has switched back to a sinus rhythm and EKG reveals sinus tach at 101. Her QRS complexes have tightened. Patient will be admitted to ICU for close monitoring. Treatment Plan: [] Disposition: Admit Impression: 1. Hyperkalemia 2. Acute renal failure This note was generated with [employer] dictation software. It may contain incorrect words, spelling, and punctuation that were not noted in review of the chart prior to signing ED Disposition - Plan for ED Patient: Referrals: Phani Mackenzie MD [Primary Care Provider] -
--- NOTE | 2018-07-20 23:16 | HP.PCM_ITS ---
Problem List (1) Acute hyperkalemia Status: Acute History of Present Illness Date of Admission: 07/21/18 Chief Complaint: Hyperkalemia on outpatient lab. The patient is a 68 year old F with a significant history of chronic ostium myelitis of left ischial area; diabetes mellitus; pressure ulcer of coccyx who was sent from the group home to the home because of hyperkalemia with potassium level of 9.1. Her repeat potassium at the emergency department initially drawn from the PICC line was 9.2. Potassium was repeated again peripherally and it was 9.8. Her EKG initially showed A. fib with conduction delay. Patient was given Cardizem gluconate; insulin with dextrose and Kayexalate. After treatment as above had a repeat EKG was found to be in sinus rhythm. The case was discussed with cdl service technician at the ED and nephrology was interested in following patient. . Past Medical History Past Medical History (Chronic Problems): Chronic Problems (Last Reviewed 07/21/18 @ 03:46 by Jaison Lopez MD) Chronic osteomyelitis of left pelvic region (Chronic) 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 Right ischial pressure sore, stage 4 (Chronic) Open wound of left thigh (Chronic) traumatic skin tear posterior thigh Incompetent urethral closure mechanism (Chronic) Neurogenic bladder (Chronic) Stage II pressure ulcer (Chronic) Chronic suprapubic catheter (Chronic) Diabetes mellitus type 2 in nonobese (Chronic) Hypertension (Chronic) Gout (Chronic) with arthropathy Pressure ulcer of left buttock, stage 3 (Chronic) left lower buttock/upper thigh area Diabetes mellitus (Chronic) Pressure ulcer of right buttock, stage 3 (Chronic) Diabetic neuropathy, type II diabetes mellitus (Chronic) Malnutrition (Chronic) Back pain (Chronic) Arthritis (Chronic) 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 significance to followup Anemia of chronic disease (Chronic) Physical deconditioning (Chronic) Dupuytren's contracture of right hand (Chronic) Spinal stenosis (Chronic) Hyperlipidemia (Chronic) RP (rectal prolapse) (Chronic) Medical History: Medical History (Last Reviewed 07/21/18 @ 03:46 by Jaison Lopez MD) Open wound of left thigh (Chronic) S71.102A traumatic skin tear posterior thigh Incompetent urethral closure mechanism (Chronic) N36.8 Neurogenic bladder (Chronic) N31.9 Stage II pressure ulcer (Chronic) L89.92 Complicated urinary tract infection (Acute) N39.0 Hematuria (Acute) R31.9 Diabetes mellitus type 2 in nonobese (Chronic) E11.9 Hypertension (Chronic) I10 Gout (Chronic) M10.9 with arthropathy Pressure ulcer of left buttock, stage 3 (Chronic) L89.323 left lower buttock/upper thigh area Pressure ulcer of left buttock, stage 2 (Resolved) L89.322 Diabetes mellitus (Chronic) E11.9 Pressure ulcer of right buttock, stage 3 (Chronic) L89.313 Diabetic neuropathy, type II diabetes mellitus (Chronic) E11.40 Malnutrition (Chronic) E46 Back pain (Chronic) M54.9 Arthritis (Chronic) M19.90 chronic osteomyelitis left ischial area (Chronic) Pressure sore of left ischium, stage 4 (Chronic) L89.324 Lytic bone lesion of right femur (Chronic) M89.8X5 and right humerus ? significance to followup Anemia of chronic disease (Chronic) D63.8 Physical deconditioning (Chronic) R53.81 Dupuytren's contracture of right hand (Chronic) M72.0 Spinal stenosis (Chronic) M48.00 Hyperlipidemia (Chronic) E78.5 RP (rectal prolapse) (Chronic) K62.3 Allergies No Known Allergies Allergy (Verified 07/20/18 20:02) Home Medications: Ambulatory Orders Medication Instructions Recorded Allopurinol [Zyloprim] 200 mg PO DAILY 07/05/14 Multivitamins,Therapeutic 1 tab PO DAILY 07/05/14 [Multivitamin] Timolol Maleate [Timoptic-XE 0.5%] 1 drp EACH EYE DAILY 07/05/14 Ascorbic Acid [Vitamin C] 500 mg PO DAILY@0800 09/09/17 Metformin HCl [Glucophage] 1,000 mg PO BID 02/26/18 Atorvastatin Calcium [Lipitor] 10 mg PO QHS 06/16/18 Gabapentin [Neurontin] 100 mg PO TID 06/16/18 Lactobacillus Acidophilus 1 cap PO DAILY 06/16/18 [Acidophilus] Linagliptin [Tradjenta] 5 mg PO DAILY 06/16/18 Polyethylene Glycol 3350 [Miralax] 17 gm PO DAILY 06/16/18 Fluconazole [Diflucan] 400 mg PO DAILY 38 Days #38 tab 06/22/18 Insulin Lispro [Humalog KwikPen] See Protocol SC ACHS insuln.pen 06/22/18 Losartan Potassium [Cozaar] 25 mg PO DAILY tablet 06/22/18 Metoprolol Tartrate [Lopressor 25 mg PO BID tablet 06/22/18 (beta honey)] Oxycodone HCl/Acetaminophen 1 tab PO Q4H PRN PRN #10 tab 06/22/18 [Oxycodone-Acetaminophen 5-325] Piperacil/Tazobactam [Zosyn] 3.375 gm IV Q8 38 Days #114 vial 06/22/18 Potassium Chloride [K-Dur] 20 meq PO DAILYCM tablet 06/22/18 Smz/Tmp Ds [Bactrim Ds] 1 tab PO BID 38 Days #76 tab 06/22/18 Vancomycin IV 750 mg IV Q12H 38 Days #76 vial 06/22/18 Bisacodyl [Laxative Suppository] 10 mg RC DAILY PRN PRN 07/20/18 Citric AC/Gluconolact/Mag Carb 30 ml IR DAILY 07/20/18 [Renacidin Irrigation Solution] Furosemide [Lasix] 20 mg PO DAILY 07/20/18 Latanoprost 0.005% [Xalatan 1 drop EACH EYE QHS 07/20/18 Opthalmic] Magnesium Hydroxide [Milk of 30 ml PO DAILY PRN PRN 07/20/18 Magnesia] Mirabegron [Myrbetriq] 50 mg PO DAILY 07/20/18 Surgical History: Surgical History (Last Reviewed 07/21/18 @ 03:46 by Jaison Lopez MD) Chronic suprapubic catheter (Chronic) Z93.[address] (Chronic) Z93.3 Previous back surgery Z98.890 Surgical History: - - Surgery for rectal prolapse with anterior resection and rectopexy at [facility] in 2008 and back surgery 1979. Colostomy was November 2012. Excision left ischial pressure sore with partial ostectomy for osteomyelitis and excision right ischial pressure sore and excision left lateral ankle pressure sore with partial ostectomy for osteomyelitis in 08/01. Lives: [facility] Smoking Status: Never smoker - *Family History Maternal History Items: Diabetes, Hypertension Paternal History Items: Diabetes, Hypertension Review of Systems Constitutional: Reports: Fatigue. Denies: Chills, Fever, Weight Change HEENT: Denies: Head Aches, Sinus Congestion, Sinus Drainage Cardiovascular: Denies: Chest Pain, Palpitations Respiratory: Denies: Cough, Shortness of breath at rest, Sputum production Gastrointestinal: Denies: Abdominal Pain, Nausea, Vomiting Genitourinary: Denies: Dysuria Musculoskeletal: Denies: Joint Pain, Joint Tenderness Skin: Reports: Wounds. Denies: Rash Neurological: Denies: Numbness, Tingling, Focal weakness Psychiatric: Denies: Anxiety, Depression, Homicidal Ideations, Suicidal Ideations Hematologic/ Lymphatic: Denies: Easy Bruising, Easy Bleeding VTE Information - Inpt Only VTE Present on Admission: No VTE Mechan Device Prophylaxis: None VTE Pharm Prophylaxis ordered?: Yes Patient Problems: Active and Suspected Problems (Last Reviewed 07/21/18 @ 03:46 by Jaison Lopez MD) Hyperkalemia (Acute) Acute hyperkalemia (Acute) - Physical Exam General: Alert, Oriented x3, Cooperative HEENT: Atraumatic, PERRLA, EOMI, Normocephalic Neck: Supple, No JVD, Negative Carotid Bruits Lungs: Clear to auscultation, Normal air movement Cardiovascular: Regular rate, No murmurs Abdomen: Bowel Sounds Present, Soft, Non Tender Extremities: No edema, Capillary Refill Less than 3 Seconds Skin: Ulcer/ Wound - Left hip and coccyx with wound covered with foam; accessory of wound VAC. Musculoskeletal: No Tenderness to Palpation of Joints or Extremities Neurological: Neuro grossly intact Psych/Mental Status: Normal Affect, Appropriate Vital Signs Temp Pulse Resp BP Pulse Ox 98.0 F 94 14 121/60 H 99 07/20/18 22:14 07/20/18 22:14 07/20/18 22:14 07/20/18 22:14 07/20/18 22:14 Oxygen Delivery Method Room Air Weight: 70.4 kg Body Mass Index (BMI) 27.5 Finger Stick Blood Glucose 154 Laboratory Tests Past 24 Hrs 07/20/18 07/20/18 07/20/18 20:44 20:44 22:05 WBC 10.3 RBC 2.92 L Hgb 8.5 L Hct 28.3 L MCV 96.9 MCH 29.1 MCHC 30.0 L RDW 22.5 H RDW Differential 78.4 H Plt Count 239 MPV 8.8 Immature Gran % (Auto) 0.600 Neut % (Auto) 86.7 H Lymph % (Auto) 9.3 L Ripley % (Auto) 2.3 Eos % (Auto) 0.9 Baso % (Auto) 0.2 Absolute Neuts (auto) 8.9 H Absolute Lymphs (auto) 0.96 Total Counted Not Reportable Differential Comment SCANNED Anisocytosis 1+ Sodium 139 136 Potassium 9.2 H* 9.8 H* Chloride 113 H 113 H Carbon Dioxide 12.0 L 12.0 L Anion Gap 14 11 BUN 91 H 93 H Creatinine 2.11 H 2.11 H Estim Creat Clear Calc 20.82 20.82 Est GFR (MDRD) Af Amer 30 L 30 L Est GFR (MDRD) Non-Af 25 L 25 L BUN/Creatinine Ratio 43.1 H 44.1 H Glucose 73 L 70 L Calcium 9.2 9.1 Total Creatine Kinase Troponin I < 0.015 07/20/18 22:05 WBC RBC Hgb Hct MCV MCH MCHC RDW RDW Differential Plt Count MPV Immature Gran % (Auto) Neut % (Auto) Lymph % (Auto) Ripley % (Auto) Eos % (Auto) Baso % (Auto) Absolute Neuts (auto) Absolute Lymphs (auto) Total Counted Differential Comment Anisocytosis Sodium Potassium Chloride Carbon Dioxide Anion Gap BUN Creatinine Estim Creat Clear Calc Est GFR (MDRD) Af Amer Est GFR (MDRD) Non-Af BUN/Creatinine Ratio Glucose Calcium Total Creatine Kinase 46 Troponin I Assessment/Plan All Active Problems (Last Reviewed 07/21/18 @ 03:46 by Jaison Lopez MD) Hyperkalemia (Acute) Acute hyperkalemia (Acute) Abscess, wrist (Acute) Septic olecranon bursitis of right elbow (Acute) Skin necrosis (Acute) Infected decubitus ulcer (Acute) Olecranon bursitis of right elbow (Acute) Severe sepsis (Acute) Complicated urinary tract infection (Acute) Hematuria (Acute) Pressure ulcer of left buttock, stage 2 (Resolved) The patient is a 68 year old F with a significant history of chronic ostium myelitis of left ischial area; diabetes mellitus; pressure ulcer of coccyx who was sent from the group home to the home because of hyperkalemia with potassium level of 9.1; and with an increased potassium level initially of 9.2 from PICC line and then 9.8 peripherally. Acute hyperkalemia Likely etiology is from potassium supplementation Patient received calcium gluconate; insulin 5 units and dextrose at the emergency department as well as albuterol sulfate 2.5 mg perianal herniation. We will give patient albuterol 10 mg per inhalation sodium bicarbonate and MiraLAX since patient has received Kayexalate p.o.. We do serial potassium levels. Hold home potassium. Hold home losartan. Nephrology consulted. Chronic osteomyelitis Patient was on vancomycin and Zosyn. Per conversation between nurse and group home antibiotics are scheduled and on July 29. Trough was supposed to be drawn at the [facility] on the day of presentation. Will order a trough and pharmacy to dose vancomycin. Chronic wound and Colostomy Wound care consult Hyperglycemia We will hold patient home metformin, sitagliptin. Would hold any further insulin at this time. Accu-Chek every hour x4 then every 4 hours. Hypertension On presentation his blood pressure was within goal. Blood pressure and heart rate parameters placed on a home metoprolol. Trend blood pressure and adjust blood pressure medication. Chronic Rea Catheter Because next reported that patient urine looks abnormal order was placed for a Rea catheter to be changed. Patient is already on vancomycin and Zosyn. DVT prophylaxis Subcutaneous Lovenox. Code Visit Inpatient E&M: 22314 In Hosp L3
--- NOTE | 2018-07-20 23:21 | ED.DCSUM_ITS ---
- ER Visit Summary Date of Service: 07/20/18 Chief Complaint: Hyperkalemia History of Present Illness: The patient is a 68 F sent in from [facility] for a potassium of 9.1. Patient reports generalized fatigue and intermittent nausea. 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 Wound VAC was removed prior to tra nsport. She is not ambulatory at baseline. She also has a history of chronic osteomyelitis to the pelvis and spinal stenosis. She is a suprapubic catheter and colostomy. Physical Examination: Blood pressure is 121/76, temperature 97.6, heart rate 92, respiratory rate 14, pulse ox 100% on room air. Patient is lying in bed in no acute distress. She answers questions appropr iately. Head neck examination reveals mild edema below both eyes. Heart is regular rate and rhythm. Lung sounds are clear. Abdomen is soft and nontender. Colostomy is noted in the anterior abdominal wall. Suprapubic catheter is noted with yellow urine. Test Results: Initial labs are drawn off existing PICC line. White count is normal. Hemoglobin is 8.5. Chemistry studies show potassium of 9.2, glucose 73, BUN 91, creatinine 2.11. Troponin is less than 0.015. Total CPK is 46. EKG is A. fib at 80 with evidence of a conduction delay. I do not see history of A. fib in this patient. Emergency Department Course and Treatment: A peripheral IV line was started and BMP was repeated. In the meantime she was treated with IV calcium, insulin and D50, butyryl, and Kayexalate along with IV fluids. Repeat BMP revealed a potassium of 9.8 with moderate hemolysis noted. BUN is 93 and creatinine 2.11. At this time patient is resting comfortably. She has switched back to a sinus rhythm and EKG reveals sinus tach at 101. Her QRS complexes have tightened. Patient will be admitted to ICU for close monitoring. Treatment Plan: [] Disposition: Admit Impression: 1. Hyperkalemia 2. Acute renal failure This note was generated with [employer] dictation software. It may contain incorrect words, spelling, and punctuation that were not noted in review of the chart prior to signing ED Disposition - Plan for ED Patient: Referrals: Phani Mackenzie MD [Primary Care Provider] -
[2018-07-20] MEDS: Sodium Polystyrene Sulfonate 15 GM/60 ML UDC 45 GM PO (23:51)
[2018-07-21] VITALS (43 sets, daily range): BP systolic 57–127; BP diastolic 31–80; PULSE 76–117; RESP 10–21; TEMP 35.6–36.9; O2SAT 95–100; BMI 26.9
[2018-07-21] MEDS: 0.9% Normal Saline 1,000 ML 125 ML IV (02:44)
[2018-07-21] MEDS: Polyethylene Glycol 3350 17 GM PACKET PO (02:54)
[2018-07-21 02:55] LABS: Bedside Glucose 65 mg/dL (70-110)
[2018-07-21] MEDS: Sodium Bicarbonate 8.4% 50 ML Syringe 50 MEQ IV (02:56)
[2018-07-21] MEDS: Dextrose 50%-Water 25 GM/50 ML DISP.SYRIN IV (03:03)
--- NOTE | 2018-07-21 03:23 | CPS ---
10 mg of albuterol given in concentrated form for high potassium levels
[2018-07-21 03:41] LABS: Vancomycin, Random Level 43.2 ug/mL (0.0-15.0)
[2018-07-21 05:30] LABS: International Normalized Ratio 1.2; Prothrombin Time (Protime)PT. 14.7 SECONDS (11.7-14.9)
[2018-07-21 05:31] LABS: Hemoglobin 7.7 g/dl (12.0-15.0); Mean Corp Hgb Conc 29.6 g/gl (32-36); Mean Corpuscular Hgb 28.7 pg (27.0-32.0); Platelet Count 231 K/mm3 (150-450); RBC Distribution Width CV 22.4 % (11.6-14.6); RBC Distribution Width SD 76.7 fl (35.1-43.9); Red Blood Count 2.68 M/mm3 (4.2-5.4); Scan Indicated on CBC? Y/N YES- FLAGS NOTED; White Blood Count 8.4 K/mm3 (4.4-11.0)
[2018-07-21 05:43] LABS: ALB/GLOB Ratio 0.4 RATIO (0.9-2.4); AST(SGOT) 21 U/L (15-37); Alanine Aminotransfer ALT/SGPT 29 U/L (13-56); Albumin, Serum 1.7 g/dL (3.2-5.0); Alkaline Phosphatase 82 U/L (45-117); Anion Gap 14 (5-15); BUN 85 mg/dL (7-18); BUN/Creat Ratio 42.9 RATIO (10-20); Calcium,Total 8.7 mg/dL (8.5-10.1); Chloride 116 mmol/L (98-107); Creatinine, Serum 1.98 mg/dL (0.55-1.02); EST Glomerular Filtration Rate 27 mL/min (>60); Est Glom Filt Rate - Afr Amer 32 mL/min (>60); Estimated Creatinine Clearance 22.18 ml/min; Globulin 4.5 g/dL (2.2-4.2); Glucose 118 mg/dL (74-106); Potassium 7.9 mmol/L (3.5-5.1); Protein, Total 6.2 g/dL (6.4-8.2); Sodium Level 142 mmol/L (136-145)
[2018-07-21 05:44] LABS: Lactic Acid 6.4 mmol/L (0.4-2.0)
--- NOTE | 2018-07-21 05:45 | RAD_ITS ---
HISTORY: HYPOTENSION EXAM:XR Chest 1 View portable COMPARISON: None FINDINGS: EKG leads in place. Left side PICC line in place with the catheter tip within the superior vena cava. No pneumothorax. Chronic mild elevation of the right hemidiaphragm. Normal heart size. No vascular congestion, pleural effusion, or acute pulmonary infiltration. RAD/Chest 1 View (Portable) IMPRESSION: 1. No acute cardiopulmonary disease. 2. Good position of the left side PICC line. No pneumothorax. at 0619 Reported and signed by: Norberto Juárez MD Electronically Signed: Norberto Juárez, at 6:18 EDT Tel , Service support ,
[2018-07-21 06:09] LABS: Erythrocyte Sedimentation Rate 42 mm/hr (0-30)
--- NOTE | 2018-07-21 08:10 | PCM.CON.CC ---
Problem List (1) Acute hyperkalemia Status: Acute (2) Septic olecranon bursitis of right elbow Status: Acute (3) Chronic osteomyelitis of left pelvic region Status: Chronic (4) Skin necrosis Status: Acute (5) Stage IV pressure ulcer of sacral region Status: Chronic Comment: with infected necrosis (6) Right ischial pressure sore, stage 4 Status: Chronic (7) Severe sepsis Status: Acute (8) Open wound of left thigh Status: Chronic Qualifiers: Encounter type: subsequent encounter Comment: traumatic skin tear posterior thigh (9) Neurogenic bladder Status: Chronic (10) Stage II pressure ulcer Status: Chronic (11) Diabetes mellitus type 2 in nonobese Status: Chronic (12) Gout Status: Chronic Qualifiers: Gout site: unspecified site Gout etiology: unspecified cause Chronicity: unspecified Qualified Code(s): M10.9 - Gout, unspecified Comment: with arthropathy (13) Pressure ulcer of left buttock, stage 3 Status: Chronic Comment: left lower buttock/upper thigh area (14) Pressure ulcer of left buttock, stage 2 Status: Resolved (15) Diabetes mellitus Status: Chronic (16) Diabetic neuropathy, type II diabetes mellitus Status: Chronic Qualifiers: Diabetes mellitus terminal press operator insulin use: without terminal press operator use Qualified Code(s): E11.40 - Type 2 diabetes mellitus with diabetic neuropathy, unspecified (17) Arthritis Status: Chronic (18) Colostomy in place Status: Chronic (19) Physical deconditioning Status: Chronic (20) Dupuytren's contracture of right hand Status: Chronic (21) Spinal stenosis Status: Chronic Qualifiers: Spinal region: lumbosacral (22) Hyperlipidemia Status: Chronic Qualifiers: Hyperlipidemia type: unspecified Qualified Code(s): E78.5 - Hyperlipidemia, unspecified Reason for Consult Date of Consultation: 07/21/18 Reason for Consultation: Hypotension History of Present Illness: The patient is a 68 year old F, with past medical history listed below and multiple admissions over the last year, who presented to [facility] from an ECF on 07/20/18 secondary to a potassium of 9.1. Patient had previously had a wound VAC on multiple decubitus ulcers of her buttock secondary to chronic osteomyelitis of the pelvis and spinal stenosis. Patient also had a history of a colostomy. Patient not able to provide much information at this time. In the emergency room, patient was noted to be normotensive at 121/76 and 100% on room air. Initial labs showed a potassium of 9.2, glucose of 73, creatinine of 2.11 with a BUN of 91. EKG showed A. fib with some conduction delay. The patient was given IV calcium, insulin, D50 and Kayexalate. Patient was admitted to the intensive care unit for further monitoring. While in the intensive care unit, patient had developed some hypotension. Patient was initiated on the sepsis protocol. Darden cultures have been sent. Patient does have a history of MDRO in the past. Patient was also noted to have significantly elevated vancomycin level that was drawn randomly. Patient reportedly was to have a discussion with hospice, but this was delayed secondary to patient's family being out of the country. Past Medical History Past Medical History (Chronic Problems): Chronic Problems (Last Reviewed 07/21/18 @ 03:46 by Jaison Lopez MD) Chronic osteomyelitis of left pelvic region (Chronic) 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 Right ischial pressure sore, stage 4 (Chronic) Open wound of left thigh (Chronic) traumatic skin tear posterior thigh Incompetent urethral closure mechanism (Chronic) Neurogenic bladder (Chronic) Stage II pressure ulcer (Chronic) Chronic suprapubic catheter (Chronic) Diabetes mellitus type 2 in nonobese (Chronic) Hypertension (Chronic) Gout (Chronic) with arthropathy Pressure ulcer of left buttock, stage 3 (Chronic) left lower buttock/upper thigh area Diabetes mellitus (Chronic) Pressure ulcer of right buttock, stage 3 (Chronic) Diabetic neuropathy, type II diabetes mellitus (Chronic) Malnutrition (Chronic) Back pain (Chronic) Arthritis (Chronic) 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 significance to followup Anemia of chronic disease (Chronic) Physical deconditioning (Chronic) Dupuytren's contracture of right hand (Chronic) Spinal stenosis (Chronic) Hyperlipidemia (Chronic) RP (rectal prolapse) (Chronic) Medical History: Medical History (Last Reviewed 07/21/18 @ 03:46 by Jaison Lopez MD) Open wound of left thigh (Chronic) S71.102A traumatic skin tear posterior thigh Incompetent urethral closure mechanism (Chronic) N36.8 Neurogenic bladder (Chronic) N31.9 Stage II pressure ulcer (Chronic) L89.92 Complicated urinary tract infection (Acute) N39.0 Hematuria (Acute) R31.9 Diabetes mellitus type 2 in nonobese (Chronic) E11.9 Hypertension (Chronic) I10 Gout (Chronic) M10.9 with arthropathy Pressure ulcer of left buttock, stage 3 (Chronic) L89.323 left lower buttock/upper thigh area Pressure ulcer of left buttock, stage 2 (Resolved) L89.322 Diabetes mellitus (Chronic) E11.9 Pressure ulcer of right buttock, stage 3 (Chronic) L89.313 Diabetic neuropathy, type II diabetes mellitus (Chronic) E11.40 Malnutrition (Chronic) E46 Back pain (Chronic) M54.9 Arthritis (Chronic) M19.90 chronic osteomyelitis left ischial area (Chronic) Pressure sore of left ischium, stage 4 (Chronic) L89.324 Lytic bone lesion of right femur (Chronic) M89.8X5 and right humerus ? significance to followup Anemia of chronic disease (Chronic) D63.8 Physical deconditioning (Chronic) R53.81 Dupuytren's contracture of right hand (Chronic) M72.0 Spinal stenosis (Chronic) M48.00 Hyperlipidemia (Chronic) E78.5 RP (rectal prolapse) (Chronic) K62.3 Allergies No Known Allergies Allergy (Verified 07/20/18 20:02) Home Medications: Ambulatory Orders Medication Instructions Recorded Allopurinol [Zyloprim] 200 mg PO DAILY 07/05/14 Multivitamins,Therapeutic 1 tab PO DAILY 07/05/14 [Multivitamin] Timolol Maleate [Timoptic-XE 0.5%] 1 drp EACH EYE DAILY 07/05/14 Ascorbic Acid [Vitamin C] 500 mg PO DAILY@0800 09/09/17 Metformin HCl [Glucophage] 1,000 mg PO BID 02/26/18 Atorvastatin Calcium [Lipitor] 10 mg PO QHS 06/16/18 Gabapentin [Neurontin] 100 mg PO TID 06/16/18 Lactobacillus Acidophilus 1 cap PO DAILY 06/16/18 [Acidophilus] Linagliptin [Tradjenta] 5 mg PO DAILY 06/16/18 Polyethylene Glycol 3350 [Miralax] 17 gm PO DAILY 06/16/18 Fluconazole [Diflucan] 400 mg PO DAILY 38 Days #38 tab 06/22/18 Insulin Lispro [Humalog KwikPen] See Protocol SC ACHS insuln.pen 06/22/18 Losartan Potassium [Cozaar] 25 mg PO DAILY tablet 06/22/18 Metoprolol Tartrate [Lopressor 25 mg PO BID tablet 06/22/18 (beta honey)] Oxycodone HCl/Acetaminophen 1 tab PO Q4H PRN PRN #10 tab 06/22/18 [Oxycodone-Acetaminophen 5-325] Piperacil/Tazobactam [Zosyn] 3.375 gm IV Q8 38 Days #114 vial 06/22/18 Potassium Chloride [K-Dur] 20 meq PO DAILYCM tablet 06/22/18 Smz/Tmp Ds [Bactrim Ds] 1 tab PO BID 38 Days #76 tab 06/22/18 Vancomycin IV 750 mg IV Q12H 38 Days #76 vial 06/22/18 Bisacodyl [Laxative Suppository] 10 mg RC DAILY PRN PRN 07/20/18 Citric AC/Gluconolact/Mag Carb 30 ml IR DAILY 07/20/18 [Renacidin Irrigation Solution] Furosemide [Lasix] 20 mg PO DAILY 07/20/18 Latanoprost 0.005% [Xalatan 1 drop EACH EYE QHS 07/20/18 Opthalmic] Magnesium Hydroxide [Milk of 30 ml PO DAILY PRN PRN 07/20/18 Magnesia] Mirabegron [Myrbetriq] 50 mg PO DAILY 07/20/18 Surgical History: Surgical History (Last Reviewed 07/21/18 @ 03:46 by Jaison Lopez MD) Chronic suprapubic catheter (Chronic) Z93.[address] (Chronic) Z93.3 Previous back surgery Z98.890 Surgical History: - - Surgery for rectal prolapse with anterior resection and rectopexy at [facility] in 2008 and back surgery 1979. Colostomy was November 2012. Excision left ischial pressure sore with partial ostectomy for osteomyelitis and excision right ischial pressure sore and excision left lateral ankle pressure sore with partial ostectomy for osteomyelitis in 08/01. Lives: Long Term Smoking Status: Never smoker - *Family History Maternal History Items: Diabetes, Hypertension Paternal History Items: Diabetes, Hypertension Review of Systems Unable to obtain accurate/complete ROS d/t: Patient current status Patient Problems: Active and Suspected Problems (Last Reviewed 07/21/18 @ 03:46 by Jaison Lopez MD) Hyperkalemia (Acute) Acute hyperkalemia (Acute) Objective: All imaging was personally reviewed. Chest x-ray showed PICC line in good position with no acute infiltrates. Last echocardiogram was completed in June showing an EF of 60% with stage I diastolic dysfunction and a PASP of 42. Patient has never had pulmonary function testing. Review of patient's culture data show multiple drug resistant organisms from the tissue including MRSA, VRE and Acinetobacter. - Physical Exam General: Alert, Cooperative, - - Extremely swollen face and eyes. Unable to give a reliable history at this time. Does follow commands appropriately. HEENT: Atraumatic, EOMI, Normocephalic, - - Scleral injection without icterus. Significant periorbital edema. Oral: No Gingival or Mucosal Lesions/ Ulcerations, Dry Mucosa Neck: Supple, No Nodes, Trachea Midline, - - JVD difficult to assess secondary to body habitus Lungs: No rhonchi, No wheeze, No rales, Diminished, - - Symmetric expansion. Cardiovascular: Regular rate, Regular Rhythm, Normal S1, Normal S2, No murmurs, No rub noted, No Gallop Abdomen: Bowel Sounds Present, Soft, Non Tender, Non-Distended, Obese Extremities: No clubbing, No cyanosis, Edema Skin: - - Multiple decubiti noted posteriorly. Musculoskeletal: No Tenderness to Palpation of Joints or Extremities Lymphatic: No Cervical, Supraclavicular, or Inguinal Adenopathy Neurological: Cranial nerves II-XII grossly intact, Neuro grossly intact Psych/Mental Status: Appropriate, Flat Affect Vital Signs Temp Pulse Resp BP Pulse Ox 35.7 C L 86 12 91/57 L 100 07/21/18 06:00 07/21/18 06:00 07/21/18 06:00 07/21/18 06:00 07/21/18 06:00 Oxygen Delivery Method Room Air Weight: 69 kg Body Mass Index (BMI) 26.9 Finger Stick Blood Glucose 154 Intake and Output for Last 24 Hours 07/19/18 07/20/18 07/21/18 23:59 23:59 23:59 Intake Total 2377.8 / 2377.8 Output Total 1025 / 1025 Balance 1352.8 / 1352.8 Laboratory Tests Past 24 Hrs 07/20/18 07/20/18 07/20/18 20:44 20:44 22:05 WBC 10.3 RBC 2.92 L Hgb 8.5 L Hct 28.3 L MCV 96.9 MCH 29.1 MCHC 30.0 L RDW 22.5 H RDW Differential 78.4 H Plt Count 239 MPV 8.8 Immature Gran % (Auto) 0.600 Neut % (Auto) 86.7 H Lymph % (Auto) 9.3 L Bland % (Auto) 2.3 Eos % (Auto) 0.9 Baso % (Auto) 0.2 Absolute Neuts (auto) 8.9 H Absolute Lymphs (auto) 0.96 Total Counted Not Reportable Differential Comment SCANNED Anisocytosis 1+ ESR PT INR APTT Sodium 139 136 Potassium 9.2 H* 9.8 H* Chloride 113 H 113 H Carbon Dioxide 12.0 L 12.0 L Anion Gap 14 11 BUN 91 H 93 H Creatinine 2.11 H 2.11 H Estim Creat Clear Calc 20.82 20.82 Est GFR (MDRD) Af Amer 30 L 30 L Est GFR (MDRD) Non-Af 25 L 25 L BUN/Creatinine Ratio 43.1 H 44.1 H Glucose 73 L 70 L Lactic Acid Calcium 9.2 9.1 Total Bilirubin AST ALT Alkaline Phosphatase Total Creatine Kinase Troponin I < 0.015 C-React Prot High Sens Total Protein Albumin Globulin Albumin/Globulin Ratio Random Vancomycin 07/20/18 07/21/18 07/21/18 22:05 02:35 05:00 WBC 8.4 RBC 2.68 L Hgb 7.7 L Hct 26.0 L MCV 97.0 MCH 28.7 MCHC 29.6 L RDW 22.4 H RDW Differential 76.7 H Plt Count 231 MPV 9.0 Immature Gran % (Auto) Neut % (Auto) Lymph % (Auto) Bland % (Auto) Eos % (Auto) Baso % (Auto) Absolute Neuts (auto) Absolute Lymphs (auto) Total Counted Differential Comment 2+ ANISO Anisocytosis ESR PT INR APTT Sodium Potassium Chloride Carbon Dioxide Anion Gap BUN Creatinine Estim Creat Clear Calc Est GFR (MDRD) Af Amer Est GFR (MDRD) Non-Af BUN/Creatinine Ratio Glucose Lactic Acid Calcium Total Bilirubin AST ALT Alkaline Phosphatase Total Creatine Kinase 46 Troponin I C-React Prot High Sens Total Protein Albumin Globulin Albumin/Globulin Ratio Random Vancomycin 43.2 H 07/21/18 07/21/18 07/21/18 05:00 05:00 05:00 WBC RBC Hgb Hct MCV MCH MCHC RDW RDW Differential Plt Count MPV Immature Gran % (Auto) Neut % (Auto) Lymph % (Auto) Bland % (Auto) Eos % (Auto) Baso % (Auto) Absolute Neuts (auto) Absolute Lymphs (auto) Total Counted Differential Comment Anisocytosis ESR PT 14.7 INR 1.2 APTT 41.0 H Sodium 142 Potassium 7.9 H* Chloride 116 H Carbon Dioxide 12.0 L Anion Gap 14 BUN 85 H Creatinine 1.98 H Estim Creat Clear Calc 22.18 Est GFR (MDRD) Af Amer 32 L Est GFR (MDRD) Non-Af 27 L BUN/Creatinine Ratio 42.9 H Glucose 118 H Lactic Acid 6.4 H* Calcium 8.7 Total Bilirubin 0.20 AST 21 ALT 29 Alkaline Phosphatase 82 Total Creatine Kinase Troponin I C-React Prot High Sens Total Protein 6.2 L Albumin 1.7 L Globulin 4.5 H Albumin/Globulin Ratio 0.4 L Random Vancomycin 07/21/18 07/21/18 05:00 05:00 WBC RBC Hgb Hct MCV MCH MCHC RDW RDW Differential Plt Count MPV Immature Gran % (Auto) Neut % (Auto) Lymph % (Auto) Bland % (Auto) Eos % (Auto) Baso % (Auto) Absolute Neuts (auto) Absolute Lymphs (auto) Total Counted Differential Comment Anisocytosis ESR 42 H PT INR APTT Sodium Potassium Chloride Carbon Dioxide Anion Gap BUN Creatinine Estim Creat Clear Calc Est GFR (MDRD) Af Amer Est GFR (MDRD) Non-Af BUN/Creatinine Ratio Glucose Lactic Acid Calcium Total Bilirubin AST ALT Alkaline Phosphatase Total Creatine Kinase Troponin I C-React Prot High Sens 109.00 H Total Protein Albumin Globulin Albumin/Globulin Ratio Random Vancomycin POC Glucose 07/21/18 02:48 POC Glucose 65 L Clinical Impression(s) from Imaging Studies Chest X-Ray 07/21/18 05:45 IMPRESSION: 1. No acute cardiopulmonary disease. 2. Good position of the left side PICC line. No pneumothorax. at 0619 Reported and signed by: Norberto Juárez MD Electronically Signed: Norberto Juárez, at 6:18 EDT Tel , Service support , Assessment/Plan Active and Suspected Problems (Last Reviewed 07/21/18 @ 03:46 by Jaison Lopez MD) Hyperkalemia (Acute) Acute hyperkalemia (Acute) RECOMMENDATIONS: 1. Consult infectious disease and nephrology 2. Clarify CODE STATUS 3. Hold further vancomycin 4. Sepsis treatment per protocol 5. Watch blood sugars closely IMPRESSIONS: 1. Septic shock secondary to probable UTI Patient has received fluid boluses per sepsis protocol. Patient does have a chronic indwelling Rea and was being treated with Zosyn and vancomycin therapy. Patient does have a history of MDRO in the past. Cultures have been sent. Infectious disease will be consulted. Rea catheter has been changed. 2. Acute renal failure secondary to probable vancomycin toxicity/hyperkalemia Patient with significant worsening in renal function as compared to June with a baseline of 0.3-0.4. Patient's vancomycin level is significantly elevated and may have induced renal failure. Patient may also have prerenal etiology secondary to septic shock. Continue with supportive measures for now. Cannot exclude the need for hemodialysis, but patient appears to be responding to fluid resuscitation. Doubt patient would be open to renal replacement therapy, but nephrology has been consulted. 3. Chronic osteomyelitis Continue with wound care for now. Poor long-term prognosis. 4. Hypoglycemia Unclear if this is secondary to septic shock versus exogenous insulin given for hyperkalemia. Will check blood sugars closely. Diet will be initiated. Hypoglycemia protocol. 5. Multiple decubitus ulcers/spinal stenosis/deconditioning/hyperlipidemia/hypertension/diabetes mellitus/anemia of chronic disease Complicates care, management, recovery and prognosis. Patient reportedly did not want to be DNR Comfort Care while family was out of country. This will need to be clarified. Continue to monitor blood sugars closely as patient has received insulin secondary to hyperkalemia. TIME: 32 minutes critical care time spent addressing patient's septic shock, renal failure, hyperkalemia, osteomyelitis, review of all data and collaboration with care team (7 AM to 8:30 AM) Code Visit 9xxxx: [id number] Critical care first hour
[2018-07-21] MEDS: Sodium Polystyrene Sulfonate 15 GM/60 ML UDC 30 GM PO ×2 (08:23→17:06)
[2018-07-21] MEDS: Glucerna Shake 120 ML LIQUID PO (08:24)
[2018-07-21] MEDS: Gabapentin 100 MG Capsule PO (08:28)
[2018-07-21] MEDS: Ascorbic Acid 500 MG Tablet PO (08:29)
[2018-07-21] MEDS: Polyethylene Glycol 3350 17 GM PACKET 34 GM PO (08:29)
--- NOTE | 2018-07-21 09:11 | PCM.PN.HOSP ---
Patient Problems: Active and Suspected Problems (Last Reviewed 07/21/18 @ 03:46 by Jaison Lopez MD) Hyperkalemia (Acute) Acute hyperkalemia (Acute) Subjective: Patient seen and examined. He was [facility] on [facility]20/2018 from a prison on account of her potassium level of 9.1. Repeat potassium done in the ED on admission was 9.2 with creatinine of 2.11 and BUN of 91. EKG done showed A. fib with some conduction delay but did not show any evidence of hyperkalemic changes. Of note, patient has extensive decubitus ulcers due to chronic osteomyelitis of the pelvis and spinal stenosis as well. Decubitus ulcers on her buttocks and coccyx and she also has a history of colostomy. She was due to have been on vancomycin and her prison. On admission in the ICU, she developed hypotension and was started on sepsis protocol. Blood and urine cultures were sent. Random vancomycin level was significantly elevated. Must be noted that patient was due to have a discussion with hospice and prison today but this was deferred. Patient has no complaints this morning says she felt hungry and wanted to eat. She denied any fever chills, palpitations or dizziness, chest pain, diarrhea vomiting. She was noted to be hypothermic overnight and a tiffany hugger was put on. Potassium is down to 7.9. Lactic acid checked was elevated at 6.4. Hemoglobin also dropped to 7.7 from 8.5. Patient noted to have been very anemic, it being as low as 6.6 on 06/19/18. She was recently admitted last month and discharged on 06/22/2018 after being managed for severe sepsis due to multi-organism infected decubitus ulcers with assisted MRSA bacteremia. She was also noted to have acute blood loss anemia due to wound debridement. Patient was alert and able to express her wishes this morning and stated that she wanted to be DNR CC and did not want any aggressive interventions. Vitals/I&O's: Vital Signs Temp Pulse Resp BP Pulse Ox 96.3 F L 86 12 91/57 L 100 07/21/18 06:00 07/21/18 06:00 07/21/18 06:00 07/21/18 06:00 07/21/18 06:00 Oxygen Delivery Method Room Air Weight: 152 lb 1.903 oz Body Mass Index (BMI) 26.9 Finger Stick Blood Glucose 154 Intake and Output for Last 24 Hours 07/19/18 07/20/18 07/21/18 23:59 23:59 23:59 Intake Total 2377.8 / 2377.8 Output Total 1025 / 1025 Balance 1352.8 / 1352.8 General: Alert, Oriented x3, Cooperative, Lethargic HEENT: Atraumatic, PERRLA, EOMI, Normocephalic Oral: Dry Mucosa Neck: Supple, No JVD, Negative Carotid Bruits Lungs: - - decreased breath sounds bibasally, no wheezes or crackles Cardiovascular: Regular rate, Regular Rhythm, Normal S1, Normal S2, No murmurs Abdomen: Bowel Sounds Present, Soft, Non Tender, Non-Distended, No Hepato-splenomegaly Extremities: No clubbing, No cyanosis, No edema, Capillary Refill Less than 3 Seconds Skin: - - decubitus ulcers over buttocks dressed; present on admission Musculoskeletal: No Tenderness to Palpation of Joints or Extremities Lymphatic: No Cervical, Supraclavicular, or Inguinal Adenopathy Neurological: Cranial nerves II-XII grossly intact Psych/Mental Status: Normal Affect, Appropriate, Alert and oriented to time, place, person, mood and affect Laboratory Results 07/20/18 20:44: WBC 10.3, RBC 2.92 L, Hgb 8.5 L, Hct 28.3 L, MCV 96.9, MCH 29.1, MCHC 30.0 L, RDW 22.5 H, RDW Differential 78.4 H, Plt Count 239, MPV 8.8, Immature Gran % (Auto) 0.600, Neut % (Auto) 86.7 H, Lymph % (Auto) 9.3 L, [place] % (Auto) 2.3, Eos % (Auto) 0.9, Baso % (Auto) 0.2, Absolute Neuts (auto) 8.9 H, Absolute Lymphs (auto) 0.96, Total Counted Not Reportable, Differential Comment SCANNED, Anisocytosis 1+ 07/20/18 20:44: Sodium 139, Potassium 9.2 H*, Chloride 113 H, Carbon Dioxide 12.0 L, Anion Gap 14, BUN 91 H, Creatinine 2.11 H, Estim Creat Clear Calc 20.82, Est GFR (MDRD) Af Amer 30 L, Est GFR (MDRD) Non-Af 25 L, BUN/Creatinine Ratio 43.1 H, Glucose 73 L, Calcium 9.2 07/20/18 22:05: Sodium 136, Potassium 9.8 H*, Chloride 113 H, Carbon Dioxide 12.0 L, Anion Gap 11, BUN 93 H, Creatinine 2.11 H, Estim Creat Clear Calc 20.82, Est GFR (MDRD) Af Amer 30 L, Est GFR (MDRD) Non-Af 25 L, BUN/Creatinine Ratio 44.1 H, Glucose 70 L, Calcium 9.1, Troponin I < 0.015 07/20/18 22:05: Total Creatine Kinase 46 07/21/18 02:35: Random Vancomycin 43.2 H 07/21/18 02:48: POC Glucose 65 L 07/21/18 05:00: WBC 8.4, RBC 2.68 L, Hgb 7.7 L, Hct 26.0 L, MCV 97.0, MCH 28.7, MCHC 29.6 L, RDW 22.4 H, RDW Differential 76.7 H, Plt Count 231, MPV 9.0, Differential Comment 2+ ANISO 07/21/18 05:00: PT 14.7, INR 1.2, APTT 41.0 H 07/21/18 05:00: Sodium 142, Potassium 7.9 H*, Chloride 116 H, Carbon Dioxide 12.0 L, Anion Gap 14, BUN 85 H, Creatinine 1.98 H, Estim Creat Clear Calc 22.18, Est GFR (MDRD) Af Amer 32 L, Est GFR (MDRD) Non-Af 27 L, BUN/Creatinine Ratio 42.9 H, Glucose 118 H, Calcium 8.7, Total Bilirubin 0.20, AST 21, ALT 29, Alkaline Phosphatase 82, Total Protein 6.2 L, Albumin 1.7 L, Globulin 4.5 H, Albumin/Globulin Ratio 0.4 L 07/21/18 05:00: Lactic Acid 6.4 H* 07/21/18 05:00: ESR 42 H 07/21/18 05:00: C-React Prot High Sens 109.00 H Diagnostic Data Chest X-Ray 07/21/18 05:45 IMPRESSION: 1. No acute cardiopulmonary disease. 2. Good position of the left side PICC line. No pneumothorax. at 0619 Reported and signed by: Norberto Juárez MD Electronically Signed: Norberto Juárez, at 6:18 EDT Tel , Service support , Current Medications Allopurinol (Zyloprim) 200 mg PO DAILY [facility] Ascorbic Acid (Vitamin C) 500 mg PO DAILY@0800 [facility] Last Admin: 07/21/18 08:29 Dose: 500 mg Atorvastatin Calcium (Lipitor) 10 mg PO QHS [facility] Bisacodyl (Dulcolax) 10 mg RECTAL DAILY PRN PRN PRN Reason: Constipation Dextrose (D50w Syringe) 0 gm IV X1 PRN; Protocol PRN Reason: Hypoglycemia Enoxaparin Sodium (Lovenox) 30 mg SC DAILY@1000 [facility] Fluconazole (Diflucan) 400 mg PO DAILY [facility] Stop: 07/29/18 10:01 Gabapentin (Neurontin) 100 mg PO TID [facility] Last Admin: 07/21/18 08:28 Dose: 100 mg Glucagon () 1 mg IM .X1 PRN PRN Reason: Hypoglycemia Sodium Chloride () 250 mls @ 15 mls/hr IV .[id number] PRN PRN Reason: SALINE FLUSH Meropenem 1 gm/ Sodium (Chloride) 120 mls @ 33 mls/hr IV Q12 [facility] Last Admin: 07/21/18 08:24 Dose: 33 mls/hr Insulin Human Lispro (Humalog Kwikpen (Bkc)) 0 unit SC ACHS [facility]; Protocol Lactobacillus Acidophilus (Acidophilus) 1 tablet PO DAILY [facility] Latanoprost (Xalatan Opthalmic) 1 drop EACH EYE QHS [facility] Magnesium Hydroxide (Milk Of Magnesia) 30 ml PO DAILY PRN PRN PRN Reason: Constipation Metoprolol Tartrate (Lopressor (Beta Abraham)) 25 mg PO BID [facility] Nutritional Formula (Lactose Free) (Glucerna Shake) 120 ml PO TIDCM [facility] Last Admin: 07/21/18 08:24 Dose: 120 ml Oxycodone HCl (Oxyir) 5 mg PO Q4H PRN PRN PRN Reason: SEVERE PAIN (6-10/10) Polyethylene Glycol (Miralax) 34 gm PO DAILY PRN PRN PRN Reason: Bowel Movement Polyethylene Glycol (Miralax) 17 gm PO DAILY [facility] Sodium Chloride () 5 - 15 ml IV UD PRN PRN Reason: SALINE FLUSH Timolol Maleate (Timoptic) 5 drop EACH EYE BID [facility] Medical Necessity - Tobacco Use Smoking Status: Never smoker Assessment/Plan All Active Problems (Last Reviewed 07/21/18 @ 03:46 by Jaison Lopez MD) Hyperkalemia (Acute) Acute hyperkalemia (Acute) Abscess, wrist (Acute) Septic olecranon bursitis of right elbow (Acute) Skin necrosis (Acute) Infected decubitus ulcer (Acute) Olecranon bursitis of right elbow (Acute) Severe sepsis (Acute) Complicated urinary tract infection (Acute) Hematuria (Acute) Pressure ulcer of left buttock, stage 2 (Resolved) 1. Acute hyperkalemia likely medication induced was receiving potassium supplements in SNF, and was also on medications such as losartan which can cause hyperkalemia. She had also been on vancomycin, with resultant kidney impairment, which was likely contributing to this received kayexalate.K is 7.9 today nephrology consulted; will give kayexalate 2. Septic shock likely due to UTI Blood pressure dropped on admission to the ICU. Blood pressure this morning was 70 systolic with MEP of 61. Lactic acid elevated at 6.4. Patient being hydrated per sepsis protocol and did appear to be responding to fluid replacement. Blood and urine cultures sent. She does have a history of MDR O in the past. Was being treated with vancomycin and Zosyn in the prison and on admission vancomycin level was significantly elevated. Rea catheter has been changed and ID consulted. Will await recommendations. 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 Acute renal failure due to vancomycin toxicity baseline Cr is ~ 0.3. Creatinine admission was 2.11 Likely due to vancomycin toxicity. Random vancomycin level was 43.2 on admission. Vancomycin on hold. Nephrology consulted. Will await recs. 4. Acute on chronic anemia: Hemoglobin down to 7.7.8.5. Has a history of acute blood loss anemia from decubitus ulcers. Will monitor closely and if hemoglobin falls further, will consider transfusion. 5. Lactic acidosis: Lactic acid is 6.4 likely due to septic shock. Will repeat per sepsis protocol and monitor. Being hydrated with IV fluids. 6. Sacral decubitus ulcers: Present on admission. States undetermined on account of wounds being dressed. Will monitor. 7. Hypoglycemia: Blood sugars in 70s on admission. This is likely due to insulin which was given for hyperkalemia as well as septic shock state. Accu-Cheks every 2 hourly. Started on a diet. Hypoglycemia protocol. 8. Diabetes mellitus: Metformin on hold on account of [place] and hypoglycemia. 9. Hypertension hyperlipidemia: Blood pressure medications on hold on account of hypotension. On statin. 10. Chronic osteomyelitis: Has chronic osteomyelitis of sacral wounds. Acute on board. 11. Malnutrition: Albumin is only 1.7. This is likely due to patient's multiple comorbidities. Dr. Jeter 12. Nonanion gap metabolic acidosis: bicarb is 12. Anion gap is 14. Likely due to uremia from HIMANSHU. WIll monitor. DVT prophylaxis: lovenox SC 30mg daily. Code status: discussed with pateint, who wants to remain DNRCC. Was due to have an appointment with hospice at the prison today but this was postponed as the [place] was [place] of [place]. Hospice been consulted today for this to be addressed with patient. Code Visit Inpatient E&M: 58075 Subs Hosp L3
[2018-07-21 09:15] LABS: Reflex Lactate? Y
[2018-07-21 09:16] LABS: Bedside Glucose 85 mg/dL (70-110)
--- NOTE | 2018-07-21 09:20 | PN_ITS ---
Patient Problems: Active and Suspected Problems (Last Reviewed 07/21/18 @ 03:46 by Jaison Lpoez MD) Hyperkalemia (Acute) Acute hyperkalemia (Acute) Subjective: Patient seen and examined. He was admitted on 07/20/2018 from a jail on account of her potassium level of 9.1. Repeat potassium done in the ED on admission was 9.2 with creatinine of 2.11 and BUN of 91. EKG done showed A. fib with some conduction delay but did not show any evidence of hyperkalemic changes. Of note, patient has extensive decubitus ulcers due to chronic osteomyelitis of the pelvis and spinal stenosis as well. Decubitus ulcers on her buttocks and coccyx and she also has a history of colostomy. She was due to have been on vancomycin and her jail. On admission in the ICU, she developed hypotension and was started on sepsis protocol. Blood and urine cultures were sent. Random vancomycin level was significantly elevated. Must be noted that patient was due to have a discussion with hospice and jail today but this was deferred. Patient has no complaints this morning says she felt hungry and wanted to eat. She denied any fever chills, palpitations or dizziness, chest pain, diarrhea vomiting. She was noted to be hypothermic overnight and a tiffany hugger was put on. Potassium is down to 7.9. Lactic acid checked was elevated at 6.4. Hemoglobin also dropped to 7.7 from 8.5. Patient noted to have been very anemic, it being as low as 6.6 on 06/19/18. She was recently admitted last month and discharged on 06/22/2018 after being managed for severe sepsis due to multi- organism infected decubitus ulcers with assisted MRSA bacteremia. She was also noted to have acute blood loss anemia due to wound debridement. Patient was alert and able to express her wishes this morning and stated that she wanted to be DNR CC and did not want any aggressive interventions. Vitals/I&O's: Vital Signs Temp Pulse Resp BP Pulse Ox 96.3 F L 86 12 91/57 L 100 07/21/18 06:00 07/21/18 06:00 07/21/18 06:00 07/21/18 06:00 07/21/18 06:00 Oxygen Delivery Method Room Air Weight: 152 lb 1.903 oz Body Mass Index (BMI) 26.9 Finger Stick Blood Glucose 154 Intake and Output for Last 24 Hours 07/19/18 07/20/18 07/21/18 23:59 23:59 23:59 Intake Total 2377.8 / 2377.8 Output Total 1025 / 1025 Balance 1352.8 / 1352.8 General: Alert, Oriented x3, Cooperative, Lethargic HEENT: Atraumatic, PERRLA, EOMI, Normocephalic Oral: Dry Mucosa Neck: Supple, No JVD, Negative Carotid Bruits Lungs: - - decreased breath sounds bibasally, no wheezes or crackles Cardiovascular: Regular rate, Regular Rhythm, Normal S1, Normal S2, No murmurs Abdomen: Bowel Sounds Present, Soft, Non Tender, Non-Distended, No Hepato- splenomegaly Extremities: No clubbing, No cyanosis, No edema, Capillary Refill Less than 3 Seconds Skin: - - decubitus ulcers over buttocks dressed; present on admission Musculoskeletal: No Tenderness to Palpation of Joints or Extremities Lymphatic: No Cervical, Supraclavicular, or Inguinal Adenopathy Neurological: Cranial nerves II-XII grossly intact Psych/Mental Status: Normal Affect, Appropriate, Alert and oriented to time, place, person, mood and affect Laboratory Results 07/20/18 20:44: WBC 10.3, RBC 2.92 L, Hgb 8.5 L, Hct 28.3 L, MCV 96.9, MCH 29.1, MCHC 30.0 L, RDW 22.5 H, RDW Differential 78.4 H, Plt Count 239, MPV 8.8, Immature Gran % (Auto) 0.600, Neut % (Auto) 86.7 H, Lymph % (Auto) 9.3 L, [place] % (Auto) 2.3, Eos % (Auto) 0.9, Baso % (Auto) 0.2, Absolute Neuts (auto) 8.9 H, Absolute Lymphs (auto) 0.96, Total Counted Not Reportable, Differential Comment SCANNED, Anisocytosis 1+ 07/20/18 20:44: Sodium 139, Potassium 9.2 H*, Chloride 113 H, Carbon Dioxide 12.0 L, Anion Gap 14, BUN 91 H, Creatinine 2.11 H, Estim Creat Clear Calc 20.82, Est GFR (MDRD) Af Amer 30 L, Est GFR (MDRD) Non-Af 25 L, BUN/Creatinine Ratio 43.1 H, Glucose 73 L, Calcium 9.2 07/20/18 22:05: Sodium 136, Potassium 9.8 H*, Chloride 113 H, Carbon Dioxide 12.0 L, Anion Gap 11, BUN 93 H, Creatinine 2.11 H, Estim Creat Clear Calc 20.82, Est GFR (MDRD) Af Amer 30 L, Est GFR (MDRD) Non-Af 25 L, BUN/Creatinine Ratio 44.1 H, Glucose 70 L, Calcium 9.1, Troponin I < 0.015 07/20/18 22:05: Total Creatine Kinase 46 07/21/18 02:35: Random Vancomycin 43.2 H 07/21/18 02:48: POC Glucose 65 L 07/21/18 05:00: WBC 8.4, RBC 2.68 L, Hgb 7.7 L, Hct 26.0 L, MCV 97.0, MCH 28.7, MCHC 29.6 L, RDW 22.4 H, RDW Differential 76.7 H, Plt Count 231, MPV 9.0, Differential Comment 2+ ANISO 07/21/18 05:00: PT 14.7, INR 1.2, APTT 41.0 H 07/21/18 05:00: Sodium 142, Potassium 7.9 H*, Chloride 116 H, Carbon Dioxide 12.0 L, Anion Gap 14, BUN 85 H, Creatinine 1.98 H, Estim Creat Clear Calc 22.18, Est GFR (MDRD) Af Amer 32 L, Est GFR (MDRD) Non-Af 27 L, BUN/Creatinine Ratio 42.9 H, Glucose 118 H, Calcium 8.7, Total Bilirubin 0.20, AST 21, ALT 29, Alkaline Phosphatase 82, Total Protein 6.2 L, Albumin 1.7 L, Globulin 4.5 H, Albumin/Globulin Ratio 0.4 L 07/21/18 05:00: Lactic Acid 6.4 H* 07/21/18 05:00: ESR 42 H 07/21/18 05:00: C-React Prot High Sens 109.00 H Diagnostic Data Chest X-Ray 07/21/18 05:45 IMPRESSION: 1. No acute cardiopulmonary disease. 2. Good position of the left side PICC line. No pneumothorax. at 0619 Reported and signed by: Norberto Juárez MD Electronically Signed: Norberto Juárez, at 6:18 EDT Tel , Service support , Current Medications Allopurinol (Zyloprim) 200 mg PO DAILY [facility] Ascorbic Acid (Vitamin C) 500 mg PO DAILY@0800 [facility] Last Admin: 07/21/18 08:29 Dose: 500 mg Atorvastatin Calcium (Lipitor) 10 mg PO QHS [facility] Bisacodyl (Dulcolax) 10 mg RECTAL DAILY PRN PRN PRN Reason: Constipation Dextrose (D50w Syringe) 0 gm IV X1 PRN; Protocol PRN Reason: Hypoglycemia Enoxaparin Sodium (Lovenox) 30 mg SC DAILY@1000 [facility] Fluconazole (Diflucan) 400 mg PO DAILY [facility] Stop: 07/29/18 10:01 Gabapentin (Neurontin) 100 mg PO TID [facility] Last Admin: 07/21/18 08:28 Dose: 100 mg Glucagon () 1 mg IM .X1 PRN PRN Reason: Hypoglycemia Sodium Chloride () 250 mls @ 15 mls/hr IV .[id number] PRN PRN Reason: SALINE FLUSH Meropenem 1 gm/ Sodium (Chloride) 120 mls @ 33 mls/hr IV Q12 [facility] Last Admin: 07/21/18 08:24 Dose: 33 mls/hr Insulin Human Lispro (Humalog Kwikpen (Bkc)) 0 unit SC ACHS [facility]; Protocol Lactobacillus Acidophilus (Acidophilus) 1 tablet PO DAILY [facility] Latanoprost (Xalatan Opthalmic) 1 drop EACH EYE QHS [facility] Magnesium Hydroxide (Milk Of Magnesia) 30 ml PO DAILY PRN PRN PRN Reason: Constipation Metoprolol Tartrate (Lopressor (Beta Abraham)) 25 mg PO BID [facility] Nutritional Formula (Lactose Free) (Glucerna Shake) 120 ml PO TIDCM [facility] Last Admin: 07/21/18 08:24 Dose: 120 ml Oxycodone HCl (Oxyir) 5 mg PO Q4H PRN PRN PRN Reason: SEVERE PAIN (6-10/10) Polyethylene Glycol (Miralax) 34 gm PO DAILY PRN PRN PRN Reason: Bowel Movement Polyethylene Glycol (Miralax) 17 gm PO DAILY [facility] Sodium Chloride () 5 - 15 ml IV UD PRN PRN Reason: SALINE FLUSH Timolol Maleate (Timoptic) 5 drop EACH EYE BID [facility] Medical Necessity - Tobacco Use Smoking Status: Never smoker Assessment/Plan All Active Problems (Last Reviewed 07/21/18 @ 03:46 by Jaison Lopez MD) Hyperkalemia (Acute) Acute hyperkalemia (Acute) Abscess, wrist (Acute) Septic olecranon bursitis of right elbow (Acute) Skin necrosis (Acute) Infected decubitus ulcer (Acute) Olecranon bursitis of right elbow (Acute) Severe sepsis (Acute) Complicated urinary tract infection (Acute) Hematuria (Acute) Pressure ulcer of left buttock, stage 2 (Resolved) 1. Acute hyperkalemia likely medication induced * was receiving potassium supplements in SNF, and was also on medications such as losartan which can cause hyperkalemia. She had also been on vancomycin, with resultant kidney impairment, which was likely contributing to this * received kayexalate.K is 7.9 today * nephrology consulted; will give kayexalate * 2. Septic shock likely due to UTI * Blood pressure dropped on admission to the ICU. Blood pressure this morning was 70 systolic with MEP of 61. * Lactic acid elevated at 6.4. * Patient being hydrated per sepsis protocol and did appear to be responding to fluid replacement. * Blood and urine cultures sent. She does have a history of MDR O in the past. * Was being treated with vancomycin and Zosyn in the jail and on admission vancomycin level was significantly elevated. * Rea catheter has been changed and ID consulted. Will await recommendations. 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 Acute renal failure due to vancomycin toxicity * baseline Cr is ~ 0.3. Creatinine admission was 2.11 * Likely due to vancomycin toxicity. * Random vancomycin level was 43.2 on admission. Vancomycin on hold. * Nephrology consulted. Will await recs. * 4. Acute on chronic anemia: * Hemoglobin down to 7.7.8.5. * Has a history of acute blood loss anemia from decubitus ulcers. * Will monitor closely and if hemoglobin falls further, will consider transfusion. * 5. Lactic acidosis: Lactic acid is 6.4 likely due to septic shock. Will repeat per sepsis protocol and monitor. Being hydrated with IV fluids. 6. Sacral decubitus ulcers: Present on admission. States undetermined on account of wounds being dressed. Will monitor. 7. Hypoglycemia: Blood sugars in 70s on admission. This is likely due to insulin which was given for hyperkalemia as well as septic shock state. Accu- Cheks every 2 hourly. Started on a diet. Hypoglycemia protocol. 8. Diabetes mellitus: Metformin on hold on account of [place] and hypoglycemia. 9. Hypertension hyperlipidemia: Blood pressure medications on hold on account of hypotension. On statin. 10. Chronic osteomyelitis: Has chronic osteomyelitis of sacral wounds. Acute on board. 11. Malnutrition: Albumin is only 1.7. This is likely due to patient's multiple comorbidities. Dr. Jeter 12. Nonanion gap metabolic acidosis: bicarb is 12. Anion gap is 14. Likely due to uremia from [facility]. WIll monitor. DVT prophylaxis: lovenox SC 30mg daily. Code status: * discussed with pateint, who wants to remain DNRCC. * Was due to have an [facility] today but this was postponed as the family was out of the country. * Hospice been consulted today for this to be addressed with patient. Code Visit Inpatient E&M: 40349 Subs Hosp L3
[2018-07-21] MEDS: 0.9% NaCl IVPB Med Flush (250 mL) 15 ML IV (09:37)
[2018-07-21] MEDS: 0.9% NaCl Peripheral Flush Adult/Peds IV (10:32)
[2018-07-21] MEDS: Fluconazole 100 MG Tablet 200 MG PO (10:33)
[2018-07-21] MEDS: Timolol 0.5% 5ML OPTH.BTL 5 DRP EACH EYE ×2 (10:35→22:20)
[2018-07-21] MEDS: Enoxaparin 30 MG/0.3 ML Syringe SC (10:35)
--- NOTE | 2018-07-21 10:49 | CASEMGMT ---
SW participated in ICU rounds this morning, pt's brother Rolf is present. Rolf confirms pt is here from [place], but states is not happy w/them as they did not call family when pt came to the hospital. Rolf's Jay is DAMIAN and she is in [place] w/daughter and granddaughter(pt's niece and grand niece). Rolf states he gave [place] his number to call him if anything happened and nobody called him. Rolf also states that he, pt and his other two daughters(pt's nieces) were to meet w/[facility] today to get information. Rolf states pt is her own decision maker. SW explained we may be able to have them meet w/pt and family instead here. SW then spoke w/pt, pt is agreeable to this also. SW called [facility], faxed clinical information, they will be here at 3pm. SW called [facility], they had already called the hospital and will be here at 2pm. SW let pt's brother know this, he states his two daughters will be here by 2pm also. SW also did let Luh at [facility] know that family was not called when pt came into the hospital. ALEX will continue to follow. JULIA Pat, SCHO[employer] PROGRAM ASSOCIATE
[2018-07-21 11:01] LABS: Lactic Acid 6.5 mmol/L (0.4-2.0)
[2018-07-21 11:21] LABS: Bedside Glucose 119 mg/dL (70-110)
--- NOTE | 2018-07-21 12:52 | PCM.HP.ID ---
Reason for Consult: Hypothermia and septic shock Consulted by: Dr. Padilla History of Present Illness: The patient is a 68 year old F [] 68-year-old white female with multiple comorbidities who was recently in the hospital late May through early June with MRSA bacteremia and septic right wrist along with a complicated polymicrobial deep wound infection with contiguous osteomyelitis. Patient required multiple antimicrobial agents upon discharge to an extended care facility. I did review last months records prior to her discharge. Patient was in the extended care facility and was brought back to the hospital because of electrolyte abnormalities and acute renal injury. Patient was found to have hyperkalemia and acute renal dysfunction as well as hypothermia. She is currently in the MICU. Her vancomycin level was supratherapeutic. Upon this hospitalization her microbiological data is pending. History is obtained through reviewing the records as well as talking to family members at the bedside and talking to the patient. Patient is currently on fluconazole and meropenem. 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 Right ischial pressure sore, stage 4 (Chronic) Open wound of left thigh (Chronic) traumatic skin tear posterior thigh Incompetent urethral closure mechanism (Chronic) Neurogenic bladder (Chronic) Stage II pressure ulcer (Chronic) Chronic suprapubic catheter (Chronic) Diabetes mellitus type 2 in nonobese (Chronic) Hypertension (Chronic) Gout (Chronic) with arthropathy Pressure ulcer of left buttock, stage 3 (Chronic) left lower buttock/upper thigh area Diabetes mellitus (Chronic) Pressure ulcer of right buttock, stage 3 (Chronic) Diabetic neuropathy, type II diabetes mellitus (Chronic) Malnutrition (Chronic) Back pain (Chronic) Arthritis (Chronic) 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 significance to followup Anemia of chronic disease (Chronic) Physical deconditioning (Chronic) Dupuytren's contracture of right hand (Chronic) Spinal stenosis (Chronic) Hyperlipidemia (Chronic) RP (rectal prolapse) (Chronic) Allergies/Adverse Reactions: Allergies No Known Allergies Allergy (Verified 07/20/18 20:02) Home Medications: Ambulatory Orders Medication Instructions Recorded Allopurinol [Zyloprim] 200 mg PO DAILY 07/05/14 Multivitamins,Therapeutic 1 tab PO DAILY 07/05/14 [Multivitamin] Timolol Maleate [Timoptic-XE 0.5%] 1 drp EACH EYE DAILY 07/05/14 Ascorbic Acid [Vitamin C] 500 mg PO DAILY@0800 09/09/17 Metformin HCl [Glucophage] 1,000 mg PO BID 02/26/18 Atorvastatin Calcium [Lipitor] 10 mg PO QHS 06/16/18 Gabapentin [Neurontin] 100 mg PO TID 06/16/18 Lactobacillus Acidophilus 1 cap PO DAILY 06/16/18 [Acidophilus] Linagliptin [Tradjenta] 5 mg PO DAILY 06/16/18 Polyethylene Glycol 3350 [Miralax] 17 gm PO DAILY 06/16/18 Fluconazole [Diflucan] 400 mg PO DAILY 38 Days #38 tab 06/22/18 Insulin Lispro [Humalog KwikPen] See Protocol SC ACHS insuln.pen 06/22/18 Losartan Potassium [Cozaar] 25 mg PO DAILY tablet 06/22/18 Metoprolol Tartrate [Lopressor 25 mg PO BID tablet 06/22/18 (beta honey)] Oxycodone HCl/Acetaminophen 1 tab PO Q4H PRN PRN #10 tab 06/22/18 [Oxycodone-Acetaminophen 5-325] Piperacil/Tazobactam [Zosyn] 3.375 gm IV Q8 38 Days #114 vial 06/22/18 Potassium Chloride [K-Dur] 20 meq PO DAILYCM tablet 06/22/18 Smz/Tmp Ds [Bactrim Ds] 1 tab PO BID 38 Days #76 tab 06/22/18 Vancomycin IV 750 mg IV Q12H 38 Days #76 vial 06/22/18 Bisacodyl [Laxative Suppository] 10 mg RC DAILY PRN PRN 07/20/18 Citric AC/Gluconolact/Mag Carb 30 ml IR DAILY 07/20/18 [Renacidin Irrigation Solution] Furosemide [Lasix] 20 mg PO DAILY 07/20/18 Latanoprost 0.005% [Xalatan 1 drop EACH EYE QHS 07/20/18 Opthalmic] Magnesium Hydroxide [Milk of 30 ml PO DAILY PRN PRN 07/20/18 Magnesia] Mirabegron [Myrbetriq] 50 mg PO DAILY 07/20/18 Vital Signs Temp Pulse Resp BP Pulse Ox 97 F L 112 H 13 108/64 99 07/21/18 11:00 07/21/18 12:00 07/21/18 11:00 07/21/18 11:00 07/21/18 11:00 Oxygen Delivery Method Room Air Weight: 69 kg Body Mass Index (BMI) 26.9 Finger Stick Blood Glucose 154 Laboratory Tests Past 24 Hrs 07/20/18 07/20/18 07/20/18 20:44 20:44 22:05 WBC 10.3 RBC 2.92 L Hgb 8.5 L Hct 28.3 L MCV 96.9 MCH 29.1 MCHC 30.0 L RDW 22.5 H RDW Differential 78.4 H Plt Count 239 MPV 8.8 Immature Gran % (Auto) 0.600 Neut % (Auto) 86.7 H Lymph % (Auto) 9.3 L [place] % (Auto) 2.3 Eos % (Auto) 0.9 Baso % (Auto) 0.2 Absolute Neuts (auto) 8.9 H Absolute Lymphs (auto) 0.96 Total Counted Not Reportable Differential Comment SCANNED Anisocytosis 1+ ESR PT INR APTT Sodium 139 136 Potassium 9.2 H* 9.8 H* Chloride 113 H 113 H Carbon Dioxide 12.0 L 12.0 L Anion Gap 14 11 BUN 91 H 93 H Creatinine 2.11 H 2.11 H Estim Creat Clear Calc 20.82 20.82 Est GFR (MDRD) Af Amer 30 L 30 L Est GFR (MDRD) Non-Af 25 L 25 L BUN/Creatinine Ratio 43.1 H 44.1 H Glucose 73 L 70 L Lactic Acid Calcium 9.2 9.1 Total Bilirubin AST ALT Alkaline Phosphatase Total Creatine Kinase Troponin I < 0.015 C-React Prot High Sens Total Protein Albumin Globulin Albumin/Globulin Ratio Random Vancomycin 07/20/18 07/21/18 07/21/18 22:05 02:35 05:00 WBC 8.4 RBC 2.68 L Hgb 7.7 L Hct 26.0 L MCV 97.0 MCH 28.7 MCHC 29.6 L RDW 22.4 H RDW Differential 76.7 H Plt Count 231 MPV 9.0 Immature Gran % (Auto) Neut % (Auto) Lymph % (Auto) [place] % (Auto) Eos % (Auto) Baso % (Auto) Absolute Neuts (auto) Absolute Lymphs (auto) Total Counted Differential Comment 2+ ANISO Anisocytosis ESR PT INR APTT Sodium Potassium Chloride Carbon Dioxide Anion Gap BUN Creatinine Estim Creat Clear Calc Est GFR (MDRD) Af Amer Est GFR (MDRD) Non-Af BUN/Creatinine Ratio Glucose Lactic Acid Calcium Total Bilirubin AST ALT Alkaline Phosphatase Total Creatine Kinase 46 Troponin I C-React Prot High Sens Total Protein Albumin Globulin Albumin/Globulin Ratio Random Vancomycin 43.2 H 07/21/18 07/21/18 07/21/18 05:00 05:00 05:00 WBC RBC Hgb Hct MCV MCH MCHC RDW RDW Differential Plt Count MPV Immature Gran % (Auto) Neut % (Auto) Lymph % (Auto) [place] % (Auto) Eos % (Auto) Baso % (Auto) Absolute Neuts (auto) Absolute Lymphs (auto) Total Counted Differential Comment Anisocytosis ESR PT 14.7 INR 1.2 APTT 41.0 H Sodium 142 Potassium 7.9 H* Chloride 116 H Carbon Dioxide 12.0 L Anion Gap 14 BUN 85 H Creatinine 1.98 H Estim Creat Clear Calc 22.18 Est GFR (MDRD) Af Amer 32 L Est GFR (MDRD) Non-Af 27 L BUN/Creatinine Ratio 42.9 H Glucose 118 H Lactic Acid 6.4 H* Calcium 8.7 Total Bilirubin 0.20 AST 21 ALT 29 Alkaline Phosphatase 82 Total Creatine Kinase Troponin I C-React Prot High Sens Total Protein 6.2 L Albumin 1.7 L Globulin 4.5 H Albumin/Globulin Ratio 0.4 L Random Vancomycin 07/21/18 07/21/18 07/21/18 05:00 05:00 09:53 WBC RBC Hgb Hct MCV MCH MCHC RDW RDW Differential Plt Count MPV Immature Gran % (Auto) Neut % (Auto) Lymph % (Auto) [place] % (Auto) Eos % (Auto) Baso % (Auto) Absolute Neuts (auto) Absolute Lymphs (auto) Total Counted Differential Comment Anisocytosis ESR 42 H PT INR APTT Sodium Potassium Chloride Carbon Dioxide Anion Gap BUN Creatinine Estim Creat Clear Calc Est GFR (MDRD) Af Amer Est GFR (MDRD) Non-Af BUN/Creatinine Ratio Glucose Lactic Acid 6.5 H* Calcium Total Bilirubin AST ALT Alkaline Phosphatase Total Creatine Kinase Troponin I C-React Prot High Sens 109.00 H Total Protein Albumin Globulin Albumin/Globulin Ratio Random Vancomycin 07/21/18 12:05 WBC RBC Hgb Hct MCV MCH MCHC RDW RDW Differential Plt Count MPV Immature Gran % (Auto) Neut % (Auto) Lymph % (Auto) [place] % (Auto) Eos % (Auto) Baso % (Auto) Absolute Neuts (auto) Absolute Lymphs (auto) Total Counted Differential Comment Anisocytosis ESR PT INR APTT Sodium Potassium Pending Chloride Carbon Dioxide Anion Gap BUN Creatinine Estim Creat Clear Calc Est GFR (MDRD) Af Amer Est GFR (MDRD) Non-Af BUN/Creatinine Ratio Glucose Lactic Acid Calcium Total Bilirubin AST ALT Alkaline Phosphatase Total Creatine Kinase Troponin I C-React Prot High Sens Total Protein Albumin Globulin Albumin/Globulin Ratio Random Vancomycin - Other Studies Radiology: [] Other Studies: [] Route of nutrition/ use of supplements: [] Nutritional Intake: [] IV Site: [] Rea Catheter: [] Patient is responsive and alert she has a colostomy as well as a suprapubic catheter. She has decubitus pressure ulcers lungs are clear heart exam S1-S2 abdomen soft nontender. - Assessment/Plan Antibiotics: [] Assessment/Plan: [] Active and Suspected Problems (Last Reviewed 07/21/18 @ 03:46 by Jaison Lopez MD) Hyperkalemia (Acute) Acute hyperkalemia (Acute) Hypothermia along with septic shock and a complicated female with multiple comorbidities. At this point we will continue meropenem and fluconazole for now and follow her most recent microbiological data and her clinical course.
--- NOTE | 2018-07-21 14:09 | CASEMGMT ---
LW/DAMIAN completed in March of 2018 on echart, SW printed and placed in chart. Pt's sister in law Jay Fung is POA and augustina Mayorga is alternate. JULIA Pat, FORGER HELPER
--- NOTE | 2018-07-21 15:08 | CHAPLAIN ---
Type of Pastoral Visit _x__ Initial Visit ___ Follow-up Visit ___ On-call Visit ___ General Patient Visit ___ Spiritual Assessment ___ Family Conference ___ Bereavement ___ Rapid Response ___ Code Blue ___ Other (describe below) Pastoral Care Referral From _x__ Patient ___ Family ___ Nurse ___ Physician ___ Scrap Yard Worker ___ Air Defense Artillery Officer ___ Other (describe below) Sacrament/Intervention _x__ Active listening ___ Anointing ___ Hindu ___ Bereavement ___ Communion ___ Malika exploration ___ ___ Life review _x__ Prayer ___ Reconciliation ___ Sacrament of Sick _x__ Supportive presence ___ Wedding ___ Other (describe below) Pastoral Comments patient is concerned about her family members that are traveling out of the country; pt asks prayer for them so they don't cut vacation short to come home; niece of pt is with her in room; pt welcomes prayer support
[2018-07-21] MEDS: Insulin Lispro 100 UNIT/ML INSULN.PEN SC ×2 (16:55→22:40)
[2018-07-21 17:20] LABS: Bedside Glucose 156 mg/dL (70-110)
--- NOTE | 2018-07-21 17:46 | PCM.CONS.R ---
Problem List (1) Acute kidney failure Status: Acute (2) Metabolic acidemia Status: Acute (3) Acute hyperkalemia Status: Acute Consultation - Renal PCP/ Referring MD: Requesting physician: [] Primary care physician: Phani Mackenzie MD - History of Present Illness History of Present Illness: The patient is a 68 year old F PMH of OM of the pelvis, DUs, neurogenic bladder s/p suprapubic catheter, DM, GOUT, s/p colostomy , and spinal stenosis. Pt was sent from [place] to [facility] for acute hyperkalemia of 9.2. In ED K was high at 9.8 with acute kidney injury and acidosis. Pt has been receiving vancomycin and zosyn at [place] for OM. Vancomycin was reported to be elevated. Pt also was found in hemodynamic shock thought is due to sepsis from UTI Pt is non oliguric. Hyperkalemia was treated medically with Kayexalate, albuterol, D50 and insulin .Pt also was given 4L of NS and stared on levophed. Pt also received multiple NaHCO3 injections for acidosis K is better at 7.0 this afternoon. Cr peaked at 2.1 mg/dL and improved slightly . Pt said she could move her limbs yesterday but feels better today. ROS: 12 systems review is negative today[] - Allergies Allergies: Allergies No Known Allergies Allergy (Verified 07/20/18 20:02) - Current Medications Current Medications: Current Medications Dextrose (D50w Syringe) 0 gm IV X1 PRN; Protocol PRN Reason: Hypoglycemia Enoxaparin Sodium (Lovenox) 30 mg SC DAILY@1000 KEKE Last Admin: 07/21/18 10:35 Dose: 30 mg Fluconazole (Diflucan) 200 mg PO DAILY [facility] Stop: 07/29/18 10:01 Last Admin: 07/21/18 10:33 Dose: 200 mg Gabapentin (Neurontin) 100 mg PO DAILY [facility] Glucagon () 1 mg IM .X1 PRN PRN Reason: Hypoglycemia Sodium Chloride () 250 mls @ 15 mls/hr IV .[id number] PRN PRN Reason: SALINE FLUSH Last Admin: 07/21/18 09:37 Dose: 15 mls/hr Meropenem 1 gm/ Sodium (Chloride) 120 mls @ 33 mls/hr IV Q12 KEKE Last Admin: 07/21/18 08:24 Dose: 33 mls/hr Norepinephrine Bitartrate 8 mg (/ Sodium Chloride) 250 mls @ 9.38 mls/hr CONT INF .[id number] [facility] Last Admin: 07/21/18 10:29 Dose: 9.38 mls/hr Sodium Bicarbonate 150 meq/ (Dextrose) 1,150 mls @ 150 mls/hr IV .[id number] [facility] Last Admin: 07/21/18 16:48 Dose: 150 mls/hr Insulin Human Lispro (Humalog Kwikpen (Bkc)) 0 unit SC ACHS [facility]; Protocol Last Admin: 07/21/18 16:55 Dose: 1 u Latanoprost (Xalatan Opthalmic) 1 drop EACH EYE QHS [facility] Metoprolol Tartrate (Lopressor (Beta Abraham)) 25 mg PO BID [facility] Last Admin: 07/21/18 10:34 Dose: Not Given Nutritional Formula (Sigifredo - [place] Flavor) 1 packet PO BIDCOX MONETT Last Admin: 07/21/18 16:50 Dose: 1 packet Oxycodone HCl (Oxyir) 5 mg PO Q4H PRN PRN PRN Reason: SEVERE PAIN (6-10/10) Polyethylene Glycol (Miralax) 17 gm PO DAILY [facility] Polyethylene Glycol (Miralax) 34 gm PO DAILY PRN PRN PRN Reason: Bowel Movement Sodium Chloride () 5 - 15 ml IV UD PRN PRN Reason: SALINE FLUSH Last Admin: 07/21/18 10:32 Dose: 10 ml Timolol Maleate (Timoptic) 5 drop EACH EYE BID [facility] Last Admin: 07/21/18 10:35 Dose: 5 drop - Past Medical History Past Medical History (Chronic Problems): Chronic Problems (Last Reviewed 07/21/18 @ 03:46 by Jaison Lopez MD) Chronic osteomyelitis of left pelvic region (Chronic) 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 Right ischial pressure sore, stage 4 (Chronic) Open wound of left thigh (Chronic) traumatic skin tear posterior thigh Incompetent urethral closure mechanism (Chronic) Neurogenic bladder (Chronic) Stage II pressure ulcer (Chronic) Chronic suprapubic catheter (Chronic) Diabetes mellitus type 2 in nonobese (Chronic) Hypertension (Chronic) Gout (Chronic) with arthropathy Pressure ulcer of left buttock, stage 3 (Chronic) left lower buttock/upper thigh area Diabetes mellitus (Chronic) Pressure ulcer of right buttock, stage 3 (Chronic) Diabetic neuropathy, type II diabetes mellitus (Chronic) Malnutrition (Chronic) Back pain (Chronic) Arthritis (Chronic) 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 significance to followup Anemia of chronic disease (Chronic) Physical deconditioning (Chronic) Dupuytren's contracture of right hand (Chronic) Spinal stenosis (Chronic) Hyperlipidemia (Chronic) RP (rectal prolapse) (Chronic) - Past Surgical History Surgical History: - - Surgery for rectal prolapse with anterior resection and rectopexy at [facility] in 2008 and back surgery 1979. Colostomy was November 2012. Excision left ischial pressure sore with partial ostectomy for osteomyelitis and excision right ischial pressure sore and excision left lateral ankle pressure sore with partial ostectomy for osteomyelitis in 08/01. - Social History Smoking Status: Never smoker - Family History Maternal History Items: Diabetes, Hypertension Paternal History Items: Diabetes, Hypertension Patient Problems: Active and Suspected Problems (Last Reviewed 07/21/18 @ 03:46 by Jaison Lopez MD) Hyperkalemia (Acute) Acute hyperkalemia (Acute) Acute kidney failure (Acute) Metabolic acidemia (Acute) - Physical Exam General: Alert, Oriented x3 HEENT: Atraumatic Oral: Moist Mucosa Neck: Supple, No JVD Lungs: Clear to auscultation, Normal air movement, No rhonchi, No wheeze Cardiovascular: Regular rate, Regular Rhythm, Normal S1, Normal S2 Abdomen: Bowel Sounds Present, Non Tender Extremities: No clubbing, No cyanosis, No edema Skin: No rashes Musculoskeletal: Arthritic Changes Lymphatic: No Cervical, Supraclavicular, or Inguinal Adenopathy Psych/Mental Status: Appropriate Vital Signs Temp Pulse Resp BP Pulse Ox 98.3 F 100 11 L 85/42 L 99 07/21/18 16:00 07/21/18 17:00 07/21/18 17:00 07/21/18 17:00 07/21/18 17:00 Oxygen Delivery Method Room Air Weight: 69 kg Body Mass Index (BMI) 26.9 Finger Stick Blood Glucose 154 Intake and Output for Last 24 Hours 07/19/18 07/20/18 07/21/18 23:59 23:59 23:59 Intake Total 2947.8 / 2947.8 Output Total 1600 / 1600 Balance 1347.8 / 1347.8 Laboratory Tests Past 24 Hrs 07/20/18 07/20/18 07/20/18 20:44 20:44 22:05 WBC 10.3 RBC 2.92 L Hgb 8.5 L Hct 28.3 L MCV 96.9 MCH 29.1 MCHC 30.0 L RDW 22.5 H RDW Differential 78.4 H Plt Count 239 MPV 8.8 Immature Gran % (Auto) 0.600 Neut % (Auto) 86.7 H Lymph % (Auto) 9.3 L [place] % (Auto) 2.3 Eos % (Auto) 0.9 Baso % (Auto) 0.2 Absolute Neuts (auto) 8.9 H Absolute Lymphs (auto) 0.96 Total Counted Not Reportable Differential Comment SCANNED Anisocytosis 1+ ESR PT INR APTT Sodium 139 136 Potassium 9.2 H* 9.8 H* Chloride 113 H 113 H Carbon Dioxide 12.0 L 12.0 L Anion Gap 14 11 BUN 91 H 93 H Creatinine 2.11 H 2.11 H Estim Creat Clear Calc 20.82 20.82 Est GFR (MDRD) Af Amer 30 L 30 L Est GFR (MDRD) Non-Af 25 L 25 L BUN/Creatinine Ratio 43.1 H 44.1 H Glucose 73 L 70 L Lactic Acid Calcium 9.2 9.1 Total Bilirubin AST ALT Alkaline Phosphatase Total Creatine Kinase Troponin I < 0.015 C-React Prot High Sens Total Protein Albumin Globulin Albumin/Globulin Ratio Random Vancomycin 07/20/18 07/21/18 07/21/18 22:05 02:35 05:00 WBC 8.4 RBC 2.68 L Hgb 7.7 L Hct 26.0 L MCV 97.0 MCH 28.7 MCHC 29.6 L RDW 22.4 H RDW Differential 76.7 H Plt Count 231 MPV 9.0 Immature Gran % (Auto) Neut % (Auto) Lymph % (Auto) [place] % (Auto) Eos % (Auto) Baso % (Auto) Absolute Neuts (auto) Absolute Lymphs (auto) Total Counted Differential Comment 2+ ANISO Anisocytosis ESR PT INR APTT Sodium Potassium Chloride Carbon Dioxide Anion Gap BUN Creatinine Estim Creat Clear Calc Est GFR (MDRD) Af Amer Est GFR (MDRD) Non-Af BUN/Creatinine Ratio Glucose Lactic Acid Calcium Total Bilirubin AST ALT Alkaline Phosphatase Total Creatine Kinase 46 Troponin I C-React Prot High Sens Total Protein Albumin Globulin Albumin/Globulin Ratio Random Vancomycin 43.2 H 07/21/18 07/21/18 07/21/18 05:00 05:00 05:00 WBC RBC Hgb Hct MCV MCH MCHC RDW RDW Differential Plt Count MPV Immature Gran % (Auto) Neut % (Auto) Lymph % (Auto) [place] % (Auto) Eos % (Auto) Baso % (Auto) Absolute Neuts (auto) Absolute Lymphs (auto) Total Counted Differential Comment Anisocytosis ESR PT 14.7 INR 1.2 APTT 41.0 H Sodium 142 Potassium 7.9 H* Chloride 116 H Carbon Dioxide 12.0 L Anion Gap 14 BUN 85 H Creatinine 1.98 H Estim Creat Clear Calc 22.18 Est GFR (MDRD) Af Amer 32 L Est GFR (MDRD) Non-Af 27 L BUN/Creatinine Ratio 42.9 H Glucose 118 H Lactic Acid 6.4 H* Calcium 8.7 Total Bilirubin 0.20 AST 21 ALT 29 Alkaline Phosphatase 82 Total Creatine Kinase Troponin I C-React Prot High Sens Total Protein 6.2 L Albumin 1.7 L Globulin 4.5 H Albumin/Globulin Ratio 0.4 L Random Vancomycin 07/21/18 07/21/18 07/21/18 05:00 05:00 09:53 WBC RBC Hgb Hct MCV MCH MCHC RDW RDW Differential Plt Count MPV Immature Gran % (Auto) Neut % (Auto) Lymph % (Auto) [place] % (Auto) Eos % (Auto) Baso % (Auto) Absolute Neuts (auto) Absolute Lymphs (auto) Total Counted Differential Comment Anisocytosis ESR 42 H PT INR APTT Sodium Potassium Chloride Carbon Dioxide Anion Gap BUN Creatinine Estim Creat Clear Calc Est GFR (MDRD) Af Amer Est GFR (MDRD) Non-Af BUN/Creatinine Ratio Glucose Lactic Acid 6.5 H* Calcium Total Bilirubin AST ALT Alkaline Phosphatase Total Creatine Kinase Troponin I C-React Prot High Sens 109.00 H Total Protein Albumin Globulin Albumin/Globulin Ratio Random Vancomycin 07/21/18 12:05 WBC RBC Hgb Hct MCV MCH MCHC RDW RDW Differential Plt Count MPV Immature Gran % (Auto) Neut % (Auto) Lymph % (Auto) [place] % (Auto) Eos % (Auto) Baso % (Auto) Absolute Neuts (auto) Absolute Lymphs (auto) Total Counted Differential Comment Anisocytosis ESR PT INR APTT Sodium Potassium 7.0 H* Chloride Carbon Dioxide Anion Gap BUN Creatinine Estim Creat Clear Calc Est GFR (MDRD) Af Amer Est GFR (MDRD) Non-Af BUN/Creatinine Ratio Glucose Lactic Acid Calcium Total Bilirubin AST ALT Alkaline Phosphatase Total Creatine Kinase Troponin I C-React Prot High Sens Total Protein Albumin Globulin Albumin/Globulin Ratio Random Vancomycin POC Glucose 07/21/18 07/21/18 07/21/18 16:45 10:25 08:19 POC Glucose 156 H 119 H 85 07/21/18 02:48 POC Glucose 65 L Assessment/Plan All Active Problems (Last Reviewed 07/21/18 @ 03:46 by Jaison Lopez MD) Hyperkalemia (Acute) Acute hyperkalemia (Acute) Acute kidney failure (Acute) Metabolic acidemia (Acute) Abscess, wrist (Acute) Septic olecranon bursitis of right elbow (Acute) Skin necrosis (Acute) Infected decubitus ulcer (Acute) Olecranon bursitis of right elbow (Acute) Severe sepsis (Acute) Complicated urinary tract infection (Acute) Hematuria (Acute) Pressure ulcer of left buttock, stage 2 (Resolved) 1- HIMANSHU is most probably from vancomycin toxicity. Cr peaked at 2.1 mg/dl from normal baseline at 0.4 mg/dl UA showed 100 protein WBC 10-25, RBC 10-25 and LSE 100. Non oliguric. No indication for HD since K level is improving. Family is leaning toward hospice care but didn't decide yet Keep MAP >65 and vancomycin level 15-20 Hold losartan Accurate I/O documentation 2- hyperkalemia: from HIMANSHU and acidosis improved with medical treatment.K peaked at 9.8 and improved to 7.0 with medical treatment Will give the patient Kyaexalate 30 g now and repeat BMP after 3- Transient Afib with conductive delay from hyperkalemia: resolved with Ca gluconate treatment and K level improvement 4- Metabolic acidosis.from lactic acidosis from metformin. HCO3 12. Will start isotonic NaHC03 drip at 150 cc/hour 5- Hemodynamic shock from sepsis/cardiogenic On levophed. Keep MAP >65 ID is following for Abx Thank you for the consult. Renal team will continue to follow Please call if any question at [phone] D/W with patient and her family and with Dr. Joseph TEMPLE MD
--- NOTE | 2018-07-21 17:55 | CON.PCM_ITS ---
Problem List (1) Acute kidney failure Status: Acute (2) Metabolic acidemia Status: Acute (3) Acute hyperkalemia Status: Acute Consultation - Renal PCP/ Referring MD: Requesting physician: [] Primary care physician: Phani Mackenzie MD - History of Present Illness History of Present Illness: The patient is a 68 year old F PMH of OM of the pelvis, DUs, neurogenic bladder s/p suprapubic catheter, DM, GOUT, s/p colostomy , and spinal stenosis. Pt was sent from [facility] to [facility] for acute hyperkalemia of 9.2. In ED K was high at 9.8 with acute kidney injury and acidosis. Pt has been receiving vancomycin and zosyn at CT for OM. Vancomycin was reported to be elevated. Pt also was found in hemodynamic shock thought is due to sepsis from UTI Pt is non oliguric. Hyperkalemia was treated medically with Kayexalate, albuterol, D50 and insulin .Pt also was given 4L of NS and stared on levophed. Pt also received multiple NaHCO3 injections for acidosis K is better at 7.0 this afternoon. Cr peaked at 2.1 mg/dL and improved slightly . Pt said she could move her limbs yesterday but feels better today. ROS: 12 systems review is negative today[] - Allergies Allergies: Allergies No Known Allergies Allergy (Verified 07/20/18 20:02) - Current Medications Current Medications: Current Medications Dextrose (D50w Syringe) 0 gm IV X1 PRN; Protocol PRN Reason: Hypoglycemia Enoxaparin Sodium (Lovenox) 30 mg SC DAILY@1000 KEKE Last Admin: 07/21/18 10:35 Dose: 30 mg Fluconazole (Diflucan) 200 mg PO DAILY [facility] Stop: 07/29/18 10:01 Last Admin: 07/21/18 10:33 Dose: 200 mg Gabapentin (Neurontin) 100 mg PO DAILY [facility] Glucagon () 1 mg IM .X1 PRN PRN Reason: Hypoglycemia Sodium Chloride () 250 mls @ 15 mls/hr IV .[id number] PRN PRN Reason: SALINE FLUSH Last Admin: 07/21/18 09:37 Dose: 15 mls/hr Meropenem 1 gm/ Sodium (Chloride) 120 mls @ 33 mls/hr IV Q12 KEKE Last Admin: 07/21/18 08:24 Dose: 33 mls/hr Norepinephrine Bitartrate 8 mg (/ Sodium Chloride) 250 mls @ 9.38 mls/hr CONT INF .[id number] [facility] Last Admin: 07/21/18 10:29 Dose: 9.38 mls/hr Sodium Bicarbonate 150 meq/ (Dextrose) 1,150 mls @ 150 mls/hr IV .[id number] [facility] Last Admin: 07/21/18 16:48 Dose: 150 mls/hr Insulin Human Lispro (Humalog Kwikpen (Bkc)) 0 unit SC ACHS [facility]; Protocol Last Admin: 07/21/18 16:55 Dose: 1 u Latanoprost (Xalatan Opthalmic) 1 drop EACH EYE QHS [facility] Metoprolol Tartrate (Lopressor (Beta Abraham)) 25 mg PO BID [facility] Last Admin: 07/21/18 10:34 Dose: Not Given Nutritional Formula (Sigifredo - Isabela Fl[facility] Last Admin: 07/21/18 16:50 Dose: 1 packet Oxycodone HCl (Oxyir) 5 mg PO Q4H PRN PRN PRN Reason: SEVERE PAIN (6-10/10) Polyethylene Glycol (Miralax) 17 gm PO DAILY [facility] Polyethylene Glycol (Miralax) 34 gm PO DAILY PRN PRN PRN Reason: Bowel Movement Sodium Chloride () 5 - 15 ml IV UD PRN PRN Reason: SALINE FLUSH Last Admin: 07/21/18 10:32 Dose: 10 ml Timolol Maleate (Timoptic) 5 drop EACH EYE BID [facility] Last Admin: 07/21/18 10:35 Dose: 5 drop - Past Medical History Past Medical History (Chronic Problems): Chronic Problems (Last Reviewed 07/21/18 @ 03:46 by Jaison Lopez MD) Chronic osteomyelitis of left pelvic region (Chronic) 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 Right ischial pressure sore, stage 4 (Chronic) Open wound of left thigh (Chronic) traumatic skin tear posterior thigh Incompetent urethral closure mechanism (Chronic) Neurogenic bladder (Chronic) Stage II pressure ulcer (Chronic) Chronic suprapubic catheter (Chronic) Diabetes mellitus type 2 in nonobese (Chronic) Hypertension (Chronic) Gout (Chronic) with arthropathy Pressure ulcer of left buttock, stage 3 (Chronic) left lower buttock/upper thigh area Diabetes mellitus (Chronic) Pressure ulcer of right buttock, stage 3 (Chronic) Diabetic neuropathy, type II diabetes mellitus (Chronic) Malnutrition (Chronic) Back pain (Chronic) Arthritis (Chronic) 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 significance to followup Anemia of chronic disease (Chronic) Physical deconditioning (Chronic) Dupuytren's contracture of right hand (Chronic) Spinal stenosis (Chronic) Hyperlipidemia (Chronic) RP (rectal prolapse) (Chronic) - Past Surgical History Surgical History: - - Surgery for rectal prolapse with anterior resection and rectopexy at [facility] in 2008 and back surgery 1979. Colostomy was November 2012. Excision left ischial pressure sore with partial ostectomy for osteomyelitis and excision right ischial pressure sore and excision left lateral ankle pressure sore with partial ostectomy for osteomyelitis in 08/01. - Social History Smoking Status: Never smoker - Family History Maternal History Items: Diabetes, Hypertension Paternal History Items: Diabetes, Hypertension Patient Problems: Active and Suspected Problems (Last Reviewed 07/21/18 @ 03:46 by Jaison Lopez MD) Hyperkalemia (Acute) Acute hyperkalemia (Acute) Acute kidney failure (Acute) Metabolic acidemia (Acute) - Physical Exam General: Alert, Oriented x3 HEENT: Atraumatic Oral: Moist Mucosa Neck: Supple, No JVD Lungs: Clear to auscultation, Normal air movement, No rhonchi, No wheeze Cardiovascular: Regular rate, Regular Rhythm, Normal S1, Normal S2 Abdomen: Bowel Sounds Present, Non Tender Extremities: No clubbing, No cyanosis, No edema Skin: No rashes Musculoskeletal: Arthritic Changes Lymphatic: No Cervical, Supraclavicular, or Inguinal Adenopathy Psych/Mental Status: Appropriate Vital Signs Temp Pulse Resp BP Pulse Ox 98.3 F 100 11 L 85/42 L 99 07/21/18 16:00 07/21/18 17:00 07/21/18 17:00 07/21/18 17:00 07/21/18 17:00 Oxygen Delivery Method Room Air Weight: 69 kg Body Mass Index (BMI) 26.9 Finger Stick Blood Glucose 154 Intake and Output for Last 24 Hours 07/19/18 07/20/18 07/21/18 23:59 23:59 23:59 Intake Total 2947.8 / 2947.8 Output Total 1600 / 1600 Balance 1347.8 / 1347.8 Laboratory Tests Past 24 Hrs 07/20/18 07/20/18 07/20/18 20:44 20:44 22:05 WBC 10.3 RBC 2.92 L Hgb 8.5 L Hct 28.3 L MCV 96.9 MCH 29.1 MCHC 30.0 L RDW 22.5 H RDW Differential 78.4 H Plt Count 239 MPV 8.8 Immature Gran % (Auto) 0.600 Neut % (Auto) 86.7 H Lymph % (Auto) 9.3 L [place] % (Auto) 2.3 Eos % (Auto) 0.9 Baso % (Auto) 0.2 Absolute Neuts (auto) 8.9 H Absolute Lymphs (auto) 0.96 Total Counted Not Reportable Differential Comment SCANNED Anisocytosis 1+ ESR PT INR APTT Sodium 139 136 Potassium 9.2 H* 9.8 H* Chloride 113 H 113 H Carbon Dioxide 12.0 L 12.0 L Anion Gap 14 11 BUN 91 H 93 H Creatinine 2.11 H 2.11 H Estim Creat Clear Calc 20.82 20.82 Est GFR (MDRD) Af Amer 30 L 30 L Est GFR (MDRD) Non-Af 25 L 25 L BUN/Creatinine Ratio 43.1 H 44.1 H Glucose 73 L 70 L Lactic Acid Calcium 9.2 9.1 Total Bilirubin AST ALT Alkaline Phosphatase Total Creatine Kinase Troponin I < 0.015 C-React Prot High Sens Total Protein Albumin Globulin Albumin/Globulin Ratio Random Vancomycin 07/20/18 07/21/18 07/21/18 22:05 02:35 05:00 WBC 8.4 RBC 2.68 L Hgb 7.7 L Hct 26.0 L MCV 97.0 MCH 28.7 MCHC 29.6 L RDW 22.4 H RDW Differential 76.7 H Plt Count 231 MPV 9.0 Immature Gran % (Auto) Neut % (Auto) Lymph % (Auto) [place] % (Auto) Eos % (Auto) Baso % (Auto) Absolute Neuts (auto) Absolute Lymphs (auto) Total Counted Differential Comment 2+ ANISO Anisocytosis ESR PT INR APTT Sodium Potassium Chloride Carbon Dioxide Anion Gap BUN Creatinine Estim Creat Clear Calc Est GFR (MDRD) Af Amer Est GFR (MDRD) Non-Af BUN/Creatinine Ratio Glucose Lactic Acid Calcium Total Bilirubin AST ALT Alkaline Phosphatase Total Creatine Kinase 46 Troponin I C-React Prot High Sens Total Protein Albumin Globulin Albumin/Globulin Ratio Random Vancomycin 43.2 H 07/21/18 07/21/18 07/21/18 05:00 05:00 05:00 WBC RBC Hgb Hct MCV MCH MCHC RDW RDW Differential Plt Count MPV Immature Gran % (Auto) Neut % (Auto) Lymph % (Auto) [place] % (Auto) Eos % (Auto) Baso % (Auto) Absolute Neuts (auto) Absolute Lymphs (auto) Total Counted Differential Comment Anisocytosis ESR PT 14.7 INR 1.2 APTT 41.0 H Sodium 142 Potassium 7.9 H* Chloride 116 H Carbon Dioxide 12.0 L Anion Gap 14 BUN 85 H Creatinine 1.98 H Estim Creat Clear Calc 22.18 Est GFR (MDRD) Af Amer 32 L Est GFR (MDRD) Non-Af 27 L BUN/Creatinine Ratio 42.9 H Glucose 118 H Lactic Acid 6.4 H* Calcium 8.7 Total Bilirubin 0.20 AST 21 ALT 29 Alkaline Phosphatase 82 Total Creatine Kinase Troponin I C-React Prot High Sens Total Protein 6.2 L Albumin 1.7 L Globulin 4.5 H Albumin/Globulin Ratio 0.4 L Random Vancomycin 07/21/18 07/21/18 07/21/18 05:00 05:00 09:53 WBC RBC Hgb Hct MCV MCH MCHC RDW RDW Differential Plt Count MPV Immature Gran % (Auto) Neut % (Auto) Lymph % (Auto) [place] % (Auto) Eos % (Auto) Baso % (Auto) Absolute Neuts (auto) Absolute Lymphs (auto) Total Counted Differential Comment Anisocytosis ESR 42 H PT INR APTT Sodium Potassium Chloride Carbon Dioxide Anion Gap BUN Creatinine Estim Creat Clear Calc Est GFR (MDRD) Af Amer Est GFR (MDRD) Non-Af BUN/Creatinine Ratio Glucose Lactic Acid 6.5 H* Calcium Total Bilirubin AST ALT Alkaline Phosphatase Total Creatine Kinase Troponin I C-React Prot High Sens 109.00 H Total Protein Albumin Globulin Albumin/Globulin Ratio Random Vancomycin 07/21/18 12:05 WBC RBC Hgb Hct MCV MCH MCHC RDW RDW Differential Plt Count MPV Immature Gran % (Auto) Neut % (Auto) Lymph % (Auto) [place] % (Auto) Eos % (Auto) Baso % (Auto) Absolute Neuts (auto) Absolute Lymphs (auto) Total Counted Differential Comment Anisocytosis ESR PT INR APTT Sodium Potassium 7.0 H* Chloride Carbon Dioxide Anion Gap BUN Creatinine Estim Creat Clear Calc Est GFR (MDRD) Af Amer Est GFR (MDRD) Non-Af BUN/Creatinine Ratio Glucose Lactic Acid Calcium Total Bilirubin AST ALT Alkaline Phosphatase Total Creatine Kinase Troponin I C-React Prot High Sens Total Protein Albumin Globulin Albumin/Globulin Ratio Random Vancomycin POC Glucose 07/21/18 07/21/18 07/21/18 16:45 10:25 08:19 POC Glucose 156 H 119 H 85 07/21/18 02:48 POC Glucose 65 L Assessment/Plan All Active Problems (Last Reviewed 07/21/18 @ 03:46 by Jaison Lopez MD) Hyperkalemia (Acute) Acute hyperkalemia (Acute) Acute kidney failure (Acute) Metabolic acidemia (Acute) Abscess, wrist (Acute) Septic olecranon bursitis of right elbow (Acute) Skin necrosis (Acute) Infected decubitus ulcer (Acute) Olecranon bursitis of right elbow (Acute) Severe sepsis (Acute) Complicated urinary tract infection (Acute) Hematuria (Acute) Pressure ulcer of left buttock, stage 2 (Resolved) 1- HIMANSHU is most probably from vancomycin toxicity. Cr peaked at 2.1 mg/dl from normal baseline at 0.4 mg/dl UA showed 100 protein WBC 10-25, RBC 10-25 and LSE 100. Non oliguric. No indication for HD since K level is improving. Family is leaning toward hospice care but didn't decide yet Keep MAP >65 and vancomycin level 15-20 Hold losartan Accurate I/O documentation 2- hyperkalemia: from HIMANSHU and acidosis improved with medical treatment.K peaked at 9.8 and improved to 7.0 with medical treatment Will give the patient Kyaexalate 30 g now and repeat BMP after 3- Transient Afib with conductive delay from hyperkalemia: resolved with Ca gluconate treatment and K level improvement 4- Metabolic acidosis.from lactic acidosis from metformin. HCO3 12. Will start isotonic NaHC03 drip at 150 cc/hour 5- Hemodynamic shock from sepsis/cardiogenic On levophed. Keep MAP >65 ID is following for Abx Thank you for the consult. Renal team will continue to follow Please call if any question at [phone] D/W with patient and her family and with Dr. Joseph TEMPLE MD
--- NOTE | 2018-07-21 18:47 | NURSING ---
reviewed andres mcleod rn charting and agree with assessment findings
[2018-07-21 20:35] LABS: Potassium 4.4 mmol/L (3.5-5.1)
--- NOTE | 2018-07-21 21:00 | NURSING ---
senior clinical research scientist here to place PICC line.
[2018-07-21] MEDS: Latanoprost 0.005% 1 Bottle 1 DRP EACH EYE (22:22)
[2018-07-21 22:45] LABS: Bedside Glucose 200 mg/dL (70-110)
[2018-07-22] VITALS (53 sets, daily range): BP systolic 82–136; BP diastolic 31–78; PULSE 88–132; RESP 9–22; TEMP 35.8–37.4; O2SAT 94–100
[2018-07-22 04:16] LABS: Albumin, Serum 1.7 g/dL (3.2-5.0); BUN 84 mg/dL (7-18); BUN/Creat Ratio 47.7 RATIO (10-20); Calcium,Total 7.5 mg/dL (8.5-10.1); Chloride 109 mmol/L (98-107); Creatinine, Serum 1.76 mg/dL (0.55-1.02); EST Glomerular Filtration Rate 30 mL/min (>60); Est Glom Filt Rate - Afr Amer 37 mL/min (>60); Estimated Creatinine Clearance 24.96 ml/min; Glucose 156 mg/dL (74-106); Phosphorus 3.9 mg/dL (2.5-4.9); Sodium Level 144 mmol/L (136-145)
[2018-07-22 04:28] LABS: Absolute Neutrophil Count 6.2 X10^3/uL (2.0-7.7); Hemoglobin 6.7 g/dl (12.0-15.0); Lymphocyte % 10.7 % (19-41); Mean Corp Hgb Conc 31.9 g/gl (32-36); Mean Corpuscular Hgb 29.6 pg (27.0-32.0); Mean Corpuscular Volume 92.9 fL (81-99); Mean Platelet Vol. 8.6 fl (6.2-12.0); Monocyte# 0.41 X10^3/uL; Monocyte% 5.5 % (0-10); Neutrophil # 6.21 X10^3/uL (2.7-7.7); Neutrophil % 83.1 % (47-70); Platelet Count 205 K/mm3 (150-450); RBC Distribution Width CV 22.4 % (11.6-14.6); RBC Distribution Width SD 74.3 fl (35.1-43.9); Red Blood Count 2.26 M/mm3 (4.2-5.4); White Blood Count 7.5 K/mm3 (4.4-11.0)
[2018-07-22 04:32] LABS: Differential Indicated SCAN CRITERIA MET; POSITIVE COUNT NO; POSITIVE DIFFERENTIAL NO; POSITIVE MORPHOLOGY YES
[2018-07-22 04:35] LABS: Anisocytosis 2+; Platelet Estimate ADEQUATE (ADEQ)
[2018-07-22 04:36] LABS: Hypochromasia 1+
--- NOTE | 2018-07-22 06:30 | PN_ITS ---
Subjective: Patient did okay overnight. Patient continues to be on Levophed at low-dose. Patient did have her PICC line transition to a double-lumen PICC secondary to venous access. Urine output has improved. Patient denies any pain at this time. No signs or symptoms of active blood loss per nursing or patient. General: Alert, Oriented x3, Cooperative, No apparent distress, - - No conversational dyspnea. HEENT: Atraumatic, PERRLA, EOMI, Normocephalic, - - Slight scleral injection without icterus Oral: Moist Mucosa, No Gingival or Mucosal Lesions/ Ulcerations Neck: Supple, No JVD, No Nodes, Trachea Midline Lungs: No rhonchi, No wheeze, No rales, Diminished, - - Fair effort. Symmetric expansion. Cardiovascular: Regular rate, Regular Rhythm, Normal S1, Normal S2, No murmurs, No rub noted, No Gallop Abdomen: Bowel Sounds Present, Soft, Non Tender, Non-Distended, Obese Extremities: No clubbing, No cyanosis, Edema Skin: - - No significant change compared to previous Musculoskeletal: No Tenderness to Palpation of Joints or Extremities Lymphatic: No Cervical, Supraclavicular, or Inguinal Adenopathy Neurological: Cranial nerves II-XII grossly intact, Neuro grossly intact Psych/Mental Status: Normal Affect, Appropriate Vital Signs Temp Pulse Resp BP Pulse Ox 36.3 C L 106 H 11 L 101/38 L 97 07/22/18 06:00 07/22/18 06:00 07/22/18 06:00 07/22/18 06:00 07/22/18 06:00 Oxygen Delivery Method Room Air Weight: 72.2 kg Body Mass Index (BMI) 26.9 Finger Stick Blood Glucose 154 Intake and Output for Last 24 Hours 07/20/18 07/21/18 07/22/18 23:59 23:59 23:59 Intake Total 4400.4 / 4400.4 1162.9 / 1162.9 Output Total 2100 / 2100 500 / 500 Balance 2300.4 / 2300.4 662.9 / 662.9 Labs (Last 48 Hours) 07/20/18 07/20/18 07/20/18 20:44 20:44 22:05 WBC 10.3 RBC 2.92 L Hgb 8.5 L Hct 28.3 L MCV 96.9 MCH 29.1 MCHC 30.0 L RDW 22.5 H RDW Differential 78.4 H Plt Count 239 MPV 8.8 Immature Gran % (Auto) 0.600 Neut % (Auto) 86.7 H Lymph % (Auto) 9.3 L [place] % (Auto) 2.3 Eos % (Auto) 0.9 Baso % (Auto) 0.2 Absolute Neuts (auto) 8.9 H Absolute Lymphs (auto) 0.96 Total Counted Not Reportable Differential Comment SCANNED Platelet Estimate Hypochromasia Anisocytosis 1+ ESR PT INR APTT Sodium 139 136 Potassium 9.2 H* 9.8 H* Chloride 113 H 113 H Carbon Dioxide 12.0 L 12.0 L Anion Gap 14 11 BUN 91 H 93 H Creatinine 2.11 H 2.11 H Estim Creat Clear Calc 20.82 20.82 Est GFR (MDRD) Af Amer 30 L 30 L Est GFR (MDRD) Non-Af 25 L 25 L BUN/Creatinine Ratio 43.1 H 44.1 H Glucose 73 L 70 L Lactic Acid Calcium 9.2 9.1 Phosphorus Total Bilirubin AST ALT Alkaline Phosphatase Total Creatine Kinase Troponin I < 0.015 C-React Prot High Sens Total Protein Albumin Globulin Albumin/Globulin Ratio Random Vancomycin POC Glucose 07/20/18 07/21/18 07/21/18 22:05 02:35 02:48 WBC RBC Hgb Hct MCV MCH MCHC RDW RDW Differential Plt Count MPV Immature Gran % (Auto) Neut % (Auto) Lymph % (Auto) [place] % (Auto) Eos % (Auto) Baso % (Auto) Absolute Neuts (auto) Absolute Lymphs (auto) Total Counted Differential Comment Platelet Estimate Hypochromasia Anisocytosis ESR PT INR APTT Sodium Potassium Chloride Carbon Dioxide Anion Gap BUN Creatinine Estim Creat Clear Calc Est GFR (MDRD) Af Amer Est GFR (MDRD) Non-Af BUN/Creatinine Ratio Glucose Lactic Acid Calcium Phosphorus Total Bilirubin AST ALT Alkaline Phosphatase Total Creatine Kinase 46 Troponin I C-React Prot High Sens Total Protein Albumin Globulin Albumin/Globulin Ratio Random Vancomycin 43.2 H POC Glucose 65 L 07/21/18 07/21/18 07/21/18 05:00 05:00 05:00 WBC 8.4 RBC 2.68 L Hgb 7.7 L Hct 26.0 L MCV 97.0 MCH 28.7 MCHC 29.6 L RDW 22.4 H RDW Differential 76.7 H Plt Count 231 MPV 9.0 Immature Gran % (Auto) Neut % (Auto) Lymph % (Auto) [place] % (Auto) Eos % (Auto) Baso % (Auto) Absolute Neuts (auto) Absolute Lymphs (auto) Total Counted Differential Comment 2+ ANISO Platelet Estimate Hypochromasia Anisocytosis ESR PT 14.7 INR 1.2 APTT 41.0 H Sodium 142 Potassium 7.9 H* Chloride 116 H Carbon Dioxide 12.0 L Anion Gap 14 BUN 85 H Creatinine 1.98 H Estim Creat Clear Calc 22.18 Est GFR (MDRD) Af Amer 32 L Est GFR (MDRD) Non-Af 27 L BUN/Creatinine Ratio 42.9 H Glucose 118 H Lactic Acid Calcium 8.7 Phosphorus Total Bilirubin 0.20 AST 21 ALT 29 Alkaline Phosphatase 82 Total Creatine Kinase Troponin I C-React Prot High Sens Total Protein 6.2 L Albumin 1.7 L Globulin 4.5 H Albumin/Globulin Ratio 0.4 L Random Vancomycin POC Glucose 07/21/18 07/21/18 07/21/18 05:00 05:00 05:00 WBC RBC Hgb Hct MCV MCH MCHC RDW RDW Differential Plt Count MPV Immature Gran % (Auto) Neut % (Auto) Lymph % (Auto) [place] % (Auto) Eos % (Auto) Baso % (Auto) Absolute Neuts (auto) Absolute Lymphs (auto) Total Counted Differential Comment Platelet Estimate Hypochromasia Anisocytosis ESR 42 H PT INR APTT Sodium Potassium Chloride Carbon Dioxide Anion Gap BUN Creatinine Estim Creat Clear Calc Est GFR (MDRD) Af Amer Est GFR (MDRD) Non-Af BUN/Creatinine Ratio Glucose Lactic Acid 6.4 H* Calcium Phosphorus Total Bilirubin AST ALT Alkaline Phosphatase Total Creatine Kinase Troponin I C-React Prot High Sens 109.00 H Total Protein Albumin Globulin Albumin/Globulin Ratio Random Vancomycin POC Glucose 07/21/18 07/21/18 07/21/18 08:19 09:53 10:25 WBC RBC Hgb Hct MCV MCH MCHC RDW RDW Differential Plt Count MPV Immature Gran % (Auto) Neut % (Auto) Lymph % (Auto) [place] % (Auto) Eos % (Auto) Baso % (Auto) Absolute Neuts (auto) Absolute Lymphs (auto) Total Counted Differential Comment Platelet Estimate Hypochromasia Anisocytosis ESR PT INR APTT Sodium Potassium Chloride Carbon Dioxide Anion Gap BUN Creatinine Estim Creat Clear Calc Est GFR (MDRD) Af Amer Est GFR (MDRD) Non-Af BUN/Creatinine Ratio Glucose Lactic Acid 6.5 H* Calcium Phosphorus Total Bilirubin AST ALT Alkaline Phosphatase Total Creatine Kinase Troponin I C-React Prot High Sens Total Protein Albumin Globulin Albumin/Globulin Ratio Random Vancomycin POC Glucose 85 119 H 07/21/18 07/21/18 07/21/18 12:05 16:45 20:00 WBC RBC Hgb Hct MCV MCH MCHC RDW RDW Differential Plt Count MPV Immature Gran % (Auto) Neut % (Auto) Lymph % (Auto) [place] % (Auto) Eos % (Auto) Baso % (Auto) Absolute Neuts (auto) Absolute Lymphs (auto) Total Counted Differential Comment Platelet Estimate Hypochromasia Anisocytosis ESR PT INR APTT Sodium Potassium 7.0 H* 4.4 Chloride Carbon Dioxide Anion Gap BUN Creatinine Estim Creat Clear Calc Est GFR (MDRD) Af Amer Est GFR (MDRD) Non-Af BUN/Creatinine Ratio Glucose Lactic Acid Calcium Phosphorus Total Bilirubin AST ALT Alkaline Phosphatase Total Creatine Kinase Troponin I C-React Prot High Sens Total Protein Albumin Globulin Albumin/Globulin Ratio Random Vancomycin POC Glucose 156 H 07/21/18 07/22/18 07/22/18 22:39 03:50 03:50 WBC 7.5 RBC 2.26 L Hgb 6.7 L Hct 21.0 L MCV 92.9 MCH 29.6 MCHC 31.9 L RDW 22.4 H RDW Differential 74.3 H Plt Count 205 MPV 8.6 Immature Gran % (Auto) 0.700 Neut % (Auto) 83.1 H Lymph % (Auto) 10.7 L [place] % (Auto) 5.5 Eos % (Auto) 0.0 Baso % (Auto) 0.0 Absolute Neuts (auto) 6.2 Absolute Lymphs (auto) 0.80 L Total Counted Not Reportable Differential Comment Platelet Estimate ADEQUATE Hypochromasia 1+ Anisocytosis 2+ ESR PT INR APTT Sodium 144 Potassium 3.0 L Chloride 109 H Carbon Dioxide 22.0 Anion Gap BUN 84 H Creatinine 1.76 H Estim Creat Clear Calc 24.96 Est GFR (MDRD) Af Amer 37 L Est GFR (MDRD) Non-Af 30 L BUN/Creatinine Ratio 47.7 H Glucose 156 H Lactic Acid Calcium 7.5 L Phosphorus 3.9 Total Bilirubin AST ALT Alkaline Phosphatase Total Creatine Kinase Troponin I C-React Prot High Sens Total Protein Albumin 1.7 L Globulin Albumin/Globulin Ratio Random Vancomycin POC Glucose 200 H Medical Necessity - Tobacco Use Smoking Status: Never smoker Assessment/Plan All Active Problems (Last Reviewed 07/21/18 @ 03:46 by Jaison Lopez MD) Hyperkalemia (Acute) Acute hyperkalemia (Acute) Acute kidney failure (Acute) Metabolic acidemia (Acute) Abscess, wrist (Acute) Septic olecranon bursitis of right elbow (Acute) Skin necrosis (Acute) Infected decubitus ulcer (Acute) Olecranon bursitis of right elbow (Acute) Severe sepsis (Acute) Complicated urinary tract infection (Acute) Hematuria (Acute) Pressure ulcer of left buttock, stage 2 (Resolved) RECOMMENDATIONS: 1. Transfuse 2 units of packed red blood cells 2. Potassium supplementation 3. Continue antibiotics, await culture results 4. Increase activity as tolerated 5. Watch blood sugars closely IMPRESSIONS: 1. Septic shock secondary to probable UTI Patient required initiation of pressor therapy yesterday. Still on low- dose pressor therapy. Patient with significant anemia this morning. Patient will be transfused 2 units of packed red blood cells. Patient did have some hypothermia overnight, but this appears to be improving. Patient does have a history of multiple drug resistant organisms. Infectious disease is following. 2. Acute renal failure secondary to probable vancomycin toxicity/hyperkalemia Patient with significant worsening in renal function as compared to June with a baseline of 0.3-0.4. Patient's vancomycin level is significantly elevated and may have induced renal failure. Patient may also have prerenal etiology secondary to septic shock. Continue with supportive measures for now. Appears to be improving from a renal standpoint. Continue to monitor urine output. Nephrology following. 3. Chronic osteomyelitis Continue with wound care for now. Poor long-term prognosis. 4. Hypoglycemia Unclear if this is secondary to septic shock versus exogenous insulin given for hyperkalemia. Will check blood sugars closely. Diet will be initiated. Hypoglycemia protocol. 5. Multiple decubitus ulcers/spinal stenosis/deconditioning/hyperlipidemia/hypertension/diabetes mellitus/anemia of chronic disease Complicates care, management, recovery and prognosis. Patient reportedly did not want to be DNR Comfort Care while [place]. This will need to be clarified. Continue to monitor blood sugars closely as patient has received insulin secondary to hyperkalemia. TIME: 33 minutes critical care time spent addressing patient's septic shock, renal failure, hyperkalemia, osteomyelitis, review of all data and collaboration with care team (5:45 AM to 6:30 AM) Code Visit [id number]: [id number] Critical care first hour
[2018-07-22 06:45] LABS: Bedside Glucose 113 mg/dL (70-110)
[2018-07-22] MEDS: 0.9% NaCl IVPB Med Flush (250 mL) 15 ML IV ×2 (08:43→12:04)
[2018-07-22 09:05] LABS: Bedside Glucose 100 mg/dL (70-110)
[2018-07-22] MEDS: Fluconazole 100 MG Tablet 200 MG PO (09:49)
[2018-07-22] MEDS: Enoxaparin 30 MG/0.3 ML Syringe SC (09:49)
[2018-07-22] MEDS: Polyethylene Glycol 3350 17 GM PACKET PO (09:50)
[2018-07-22] MEDS: Gabapentin 100 MG Capsule PO (09:50)
[2018-07-22] MEDS: Timolol 0.5% 5ML OPTH.BTL 5 DRP EACH EYE ×2 (09:50→21:12)
--- NOTE | 2018-07-22 10:08 | PCM.PN.HOSP ---
Patient Problems: Active and Suspected Problems (Last Reviewed 07/21/18 @ 03:46 by Jaison Lopez MD) Hyperkalemia (Acute) Acute hyperkalemia (Acute) Acute kidney failure (Acute) Metabolic acidemia (Acute) Subjective: Patient seen and examined. She had no active events overnight and felt well. She denied any fever chills or palpitations, dizziness, abdominal pain, diarrhea vomiting. Labs and vitals reviewed. Hemoglobin noted to have dropped to 6.7. There is no overt source of bleeding. 2 units of packed RBC ordered as per truck packer. Potassium also noted to be 3 today and he has been placed already. Patient is waiting for the rest of her family to return from [place] before any decision will be made about a CODE STATUS. She had a new PICC line placed in the left upper extremity on 07/21/2018. She remains on low-dose Levophed for hemodynamic support. Vitals/I&O's: Vital Signs Temp Pulse Resp BP Pulse Ox 98.3 F 128 H 17 127/60 H 99 07/22/18 09:09 07/22/18 09:45 07/22/18 09:15 07/22/18 09:45 07/22/18 09:15 Oxygen Delivery Method Room Air Weight: 159 lb 2.78 oz Body Mass Index (BMI) 26.9 Finger Stick Blood Glucose 154 Intake and Output for Last 24 Hours 07/20/18 07/21/18 07/22/18 23:59 23:59 23:59 Intake Total 4400.4 / 4400.4 1162.9 / 1162.9 Output Total 2100 / 2100 500 / 500 Balance 2300.4 / 2300.4 662.9 / 662.9 General: Alert, Oriented x3, Cooperative, HEENT: Atraumatic, PERRLA, EOMI, Normocephalic Oral: Dry Mucosa Neck: Supple, No JVD, Negative Carotid Bruits Lungs: - - decreased breath sounds bibasally, no wheezes or crackles Cardiovascular: Regular rate, Regular Rhythm, Normal S1, Normal S2, No murmurs Abdomen: Bowel Sounds Present, Soft, Non Tender, Non-Distended, No Hepato-splenomegaly Extremities: No clubbing, No cyanosis, No edema, Capillary Refill Less than 3 Seconds Skin: - - decubitus ulcers over buttocks dressed; present on admission Musculoskeletal: No Tenderness to Palpation of Joints or Extremities Lymphatic: No Cervical, Supraclavicular, or Inguinal Adenopathy Neurological: Cranial nerves II-XII grossly intact Psych/Mental Status: Normal Affect, Appropriate, Alert and oriented to time, place, person, mood and affect Laboratory Results 07/21/18 09:53: Lactic Acid 6.5 H* 07/21/18 10:25: POC Glucose 119 H 07/21/18 12:05: Potassium 7.0 H* 07/21/18 16:45: POC Glucose 156 H 07/21/18 20:00: Potassium 4.4 07/21/18 22:39: POC Glucose 200 H 07/22/18 03:50: WBC 7.5, RBC 2.26 L, Hgb 6.7 L, Hct 21.0 L, MCV 92.9, MCH 29.6, MCHC 31.9 L, RDW 22.4 H, RDW Differential 74.3 H, Plt Count 205, MPV 8.6, Immature Gran % (Auto) 0.700, Neut % (Auto) 83.1 H, Lymph % (Auto) 10.7 L, [place] % (Auto) 5.5, Eos % (Auto) 0.0, Baso % (Auto) 0.0, Absolute Neuts (auto) 6.2, Absolute Lymphs (auto) 0.80 L, Total Counted Not Reportable, Platelet Estimate ADEQUATE, Hypochromasia 1+, Anisocytosis 2+ 07/22/18 03:50: Sodium 144, Potassium 3.0 L, Chloride 109 H, Carbon Dioxide 22.0, BUN 84 H, Creatinine 1.76 H, Estim Creat Clear Calc 24.96, Est GFR (MDRD) Af Amer 37 L, Est GFR (MDRD) Non-Af 30 L, BUN/Creatinine Ratio 47.7 H, Glucose 156 H, Calcium 7.5 L, Phosphorus 3.9, Albumin 1.7 L 07/22/18 06:25: Blood Type B POSITIVE, Antibody Screen NEGATIVE, Crossmatch See Detail 07/22/18 06:34: POC Glucose 113 H 07/22/18 08:40: POC Glucose 100 Diagnostic Data Chest X-Ray 07/21/18 05:45 IMPRESSION: 1. No acute cardiopulmonary disease. 2. Good position of the left side PICC line. No pneumothorax. at 0619 Reported and signed by: Norberto Juárez MD Electronically Signed: Norberto Juárez, at 6:18 EDT Tel , Service support , Current Medications Dextrose (D50w Syringe) 0 gm IV X1 PRN; Protocol PRN Reason: Hypoglycemia Enoxaparin Sodium (Lovenox) 30 mg SC DAILY@1000 KEKE Last Admin: 07/22/18 09:49 Dose: 30 mg Fluconazole (Diflucan) 200 mg PO DAILY [facility] Stop: 07/29/18 10:01 Last Admin: 07/22/18 09:49 Dose: 200 mg Gabapentin (Neurontin) 100 mg PO DAILY [facility] Last Admin: 07/22/18 09:50 Dose: 100 mg Glucagon () 1 mg IM .X1 PRN PRN Reason: Hypoglycemia Sodium Chloride () 250 mls @ 15 mls/hr IV .[id number] PRN PRN Reason: SALINE FLUSH Last Admin: 07/22/18 08:43 Dose: 15 mls/hr Norepinephrine Bitartrate 8 mg (/ Sodium Chloride) 250 mls @ 9.38 mls/hr CONT INF .[id number] [facility] Last Admin: 07/21/18 10:29 Dose: 9.38 mls/hr Sodium Bicarbonate 150 meq/ (Dextrose) 1,150 mls @ 150 mls/hr IV .[id number] [facility] Last Admin: 07/22/18 08:42 Dose: 150 mls/hr Meropenem 500 mg/ Sodium (Chloride) 60 mls @ 100 mls/hr IV Q8 [facility] Insulin Human Lispro (Humalog Kwikpen (Bkc)) 0 unit SC ACHS [facility]; Protocol Last Admin: 07/22/18 06:36 Dose: Not Given Latanoprost (Xalatan Opthalmic) 1 drop EACH EYE QHS [facility] Last Admin: 07/21/18 22:22 Dose: 1 drop Nutritional Formula (Sigifredo - [place] Flavor) 1 packet PO BIDCM [facility] Last Admin: 07/22/18 09:48 Dose: 1 packet Oxycodone HCl (Oxyir) 5 mg PO Q4H PRN PRN PRN Reason: SEVERE PAIN (6-10/10) Polyethylene Glycol (Miralax) 17 gm PO DAILY [facility] Last Admin: 07/22/18 09:50 Dose: 17 gm Polyethylene Glycol (Miralax) 34 gm PO DAILY PRN PRN PRN Reason: Bowel Movement Sodium Chloride () 5 - 15 ml IV UD PRN PRN Reason: SALINE FLUSH Last Admin: 07/21/18 10:32 Dose: 10 ml Timolol Maleate (Timoptic) 5 drop EACH EYE BID [facility] Last Admin: 07/22/18 09:50 Dose: 5 drop Medical Necessity - Tobacco Use Smoking Status: Never smoker Assessment/Plan All Active Problems (Last Reviewed 07/21/18 @ 03:46 by Jaison Lopez MD) Hyperkalemia (Acute) Acute hyperkalemia (Acute) Acute kidney failure (Acute) Metabolic acidemia (Acute) Abscess, wrist (Acute) Septic olecranon bursitis of right elbow (Acute) Skin necrosis (Acute) Infected decubitus ulcer (Acute) Olecranon bursitis of right elbow (Acute) Severe sepsis (Acute) Complicated urinary tract infection (Acute) Hematuria (Acute) Pressure ulcer of left buttock, stage 2 (Resolved) 1. Acute hyperkalemia likely medication induced resolved. K is no2 3. Will replace and monitor nephro on board 2. Hypokalemia: Likely due to Kayexalate administration. Potassium is 3 today. Will replace and monitor. 3. Septic shock likely due to UTI remains on levophed. blood and urine cultures sent on IV meropenem ID on board. 3. Acute renal failure due to vancomycin toxicity baseline Cr is ~ 0.3. Creatinine admission was 2.11. Cr today is 1.76. Likely due to vancomycin toxicity. Random vancomycin level was 43.2 on admission. Vancomycin on hold. Nephrology consulted. Will await recs. 4. Acute on chronic anemia: Hemoglobin down to 6.7 today. Source of bleeding not clear will transfuse with 2 units of PRBC. Has a history of acute blood loss anemia from decubitus ulcers. 5. Lactic acidosis: Lactic acid is 6.4 likely due to septic shock. Currently on levophed to maintain hemodynamic status. 6. Sacral decubitus ulcers: Present on admission. States undetermined on account of wounds being dressed. Will monitor. 7. Hypoglycemia: resolved. Blood sugars in 70s on admission. This is likely due to insulin which was given for hyperkalemia as well as septic shock state. Accu-Cheks ACHS. 8. Diabetes mellitus: Metformin on hold on account of [place] and hypoglycemia. ISS. Accuchecks ACHS 9. Hypertension/ hyperlipidemia: Blood pressure medications on hold on account of hypotension. On statin. 10. Chronic osteomyelitis: Has chronic osteomyelitis of sacral wounds. Acute on board. 11. Malnutrition: Albumin is only 1.7. This is likely due to patient's multiple comorbidities. Dietary on board 12. Nonanion gap metabolic acidosis: bicarb was 12, likely due to HIMANSHU. Received sodium bicarb drip yesterday, and bicarb is 22 today. DVT prophylaxis: lovenox SC 30mg daily. Code status: patient now wants her family to return from [place] before any decision is made about her code status. Code Visit Inpatient E&M: 08189 Subs Hosp L3
--- NOTE | 2018-07-22 10:12 | PN_ITS ---
Patient Problems: Active and Suspected Problems (Last Reviewed 07/21/18 @ 03:46 by Jaison Lopez MD) Hyperkalemia (Acute) Acute hyperkalemia (Acute) Acute kidney failure (Acute) Metabolic acidemia (Acute) Subjective: Patient seen and examined. She had no active events overnight and felt well. She denied any fever chills or palpitations, dizziness, abdominal pain, diarrhea vomiting. Labs and vitals reviewed. Hemoglobin noted to have dropped to 6.7. There is no overt source of bleeding. 2 units of packed RBC ordered as per crusher tender. Potassium also noted to be 3 today and he has been placed already. Patient is waiting for the rest of her family to return from [place] before any decision will be made about a CODE STATUS. She had a new PICC line placed in the left upper extremity on 07/21/2018. She remains on low-dose Levophed for hemodynamic support. Vitals/I&O's: Vital Signs Temp Pulse Resp BP Pulse Ox 98.3 F 128 H 17 127/60 H 99 07/22/18 09:09 07/22/18 09:45 07/22/18 09:15 07/22/18 09:45 07/22/18 09:15 Oxygen Delivery Method Room Air Weight: 159 lb 2.78 oz Body Mass Index (BMI) 26.9 Finger Stick Blood Glucose 154 Intake and Output for Last 24 Hours 07/20/18 07/21/18 07/22/18 23:59 23:59 23:59 Intake Total 4400.4 / 4400.4 1162.9 / 1162.9 Output Total 2100 / 2100 500 / 500 Balance 2300.4 / 2300.4 662.9 / 662.9 General: Alert, Oriented x3, Cooperative, HEENT: Atraumatic, PERRLA, EOMI, Normocephalic Oral: Dry Mucosa Neck: Supple, No JVD, Negative Carotid Bruits Lungs: - - decreased breath sounds bibasally, no wheezes or crackles Cardiovascular: Regular rate, Regular Rhythm, Normal S1, Normal S2, No murmurs Abdomen: Bowel Sounds Present, Soft, Non Tender, Non-Distended, No Hepato- splenomegaly Extremities: No clubbing, No cyanosis, No edema, Capillary Refill Less than 3 Seconds Skin: - - decubitus ulcers over buttocks dressed; present on admission Musculoskeletal: No Tenderness to Palpation of Joints or Extremities Lymphatic: No Cervical, Supraclavicular, or Inguinal Adenopathy Neurological: Cranial nerves II-XII grossly intact Psych/Mental Status: Normal Affect, Appropriate, Alert and oriented to time, place, person, mood and affect Laboratory Results 07/21/18 09:53: Lactic Acid 6.5 H* 07/21/18 10:25: POC Glucose 119 H 07/21/18 12:05: Potassium 7.0 H* 07/21/18 16:45: POC Glucose 156 H 07/21/18 20:00: Potassium 4.4 07/21/18 22:39: POC Glucose 200 H 07/22/18 03:50: WBC 7.5, RBC 2.26 L, Hgb 6.7 L, Hct 21.0 L, MCV 92.9, MCH 29.6, MCHC 31.9 L, RDW 22.4 H, RDW Differential 74.3 H, Plt Count 205, MPV 8.6, Immature Gran % (Auto) 0.700, Neut % (Auto) 83.1 H, Lymph % (Auto) 10.7 L, [place] % (Auto) 5.5, Eos % (Auto) 0.0, Baso % (Auto) 0.0, Absolute Neuts (auto) 6.2, Absolute Lymphs (auto) 0.80 L, Total Counted Not Reportable, Platelet Estimate ADEQUATE, Hypochromasia 1+, Anisocytosis 2+ 07/22/18 03:50: Sodium 144, Potassium 3.0 L, Chloride 109 H, Carbon Dioxide 22.0, BUN 84 H, Creatinine 1.76 H, Estim Creat Clear Calc 24.96, Est GFR (MDRD) Af Amer 37 L, Est GFR (MDRD) Non-Af 30 L, BUN/Creatinine Ratio 47.7 H, Glucose 156 H, Calcium 7.5 L, Phosphorus 3.9, Albumin 1.7 L 07/22/18 06:25: Blood Type B POSITIVE, Antibody Screen NEGATIVE, Crossmatch See Detail 07/22/18 06:34: POC Glucose 113 H 07/22/18 08:40: POC Glucose 100 Diagnostic Data Chest X-Ray 07/21/18 05:45 IMPRESSION: 1. No acute cardiopulmonary disease. 2. Good position of the left side PICC line. No pneumothorax. at 0619 Reported and signed by: Norberto Juárez MD Electronically Signed: Norberto Juárez, at 6:18 EDT Tel , Service support , Current Medications Dextrose (D50w Syringe) 0 gm IV X1 PRN; Protocol PRN Reason: Hypoglycemia Enoxaparin Sodium (Lovenox) 30 mg SC DAILY@1000 KEKE Last Admin: 07/22/18 09:49 Dose: 30 mg Fluconazole (Diflucan) 200 mg PO DAILY [facility] Stop: 07/29/18 10:01 Last Admin: 07/22/18 09:49 Dose: 200 mg Gabapentin (Neurontin) 100 mg PO DAILY [facility] Last Admin: 07/22/18 09:50 Dose: 100 mg Glucagon () 1 mg IM .X1 PRN PRN Reason: Hypoglycemia Sodium Chloride () 250 mls @ 15 mls/hr IV .[id number] PRN PRN Reason: SALINE FLUSH Last Admin: 07/22/18 08:43 Dose: 15 mls/hr Norepinephrine Bitartrate 8 mg (/ Sodium Chloride) 250 mls @ 9.38 mls/hr CONT INF .[id number] [facility] Last Admin: 07/21/18 10:29 Dose: 9.38 mls/hr Sodium Bicarbonate 150 meq/ (Dextrose) 1,150 mls @ 150 mls/hr IV .[id number] [facility] Last Admin: 07/22/18 08:42 Dose: 150 mls/hr Meropenem 500 mg/ Sodium (Chloride) 60 mls @ 100 mls/hr IV Q8 [facility] Insulin Human Lispro (Humalog Kwikpen (Bkc)) 0 unit SC ACHS [facility]; Protocol Last Admin: 07/22/18 06:36 Dose: Not Given Latanoprost (Xalatan Opthalmic) 1 drop EACH EYE QHS [facility] Last Admin: 07/21/18 22:22 Dose: 1 drop Nutritional Formula (Sigifredo - [place] Flavor) 1 packet PO BIDCM [facility] Last Admin: 07/22/18 09:48 Dose: 1 packet Oxycodone HCl (Oxyir) 5 mg PO Q4H PRN PRN PRN Reason: SEVERE PAIN (6-10/10) Polyethylene Glycol (Miralax) 17 gm PO DAILY [facility] Last Admin: 07/22/18 09:50 Dose: 17 gm Polyethylene Glycol (Miralax) 34 gm PO DAILY PRN PRN PRN Reason: Bowel Movement Sodium Chloride () 5 - 15 ml IV UD PRN PRN Reason: SALINE FLUSH Last Admin: 07/21/18 10:32 Dose: 10 ml Timolol Maleate (Timoptic) 5 drop EACH EYE BID [facility] Last Admin: 07/22/18 09:50 Dose: 5 drop Medical Necessity - Tobacco Use Smoking Status: Never smoker Assessment/Plan All Active Problems (Last Reviewed 07/21/18 @ 03:46 by Jaison Lopez MD) Hyperkalemia (Acute) Acute hyperkalemia (Acute) Acute kidney failure (Acute) Metabolic acidemia (Acute) Abscess, wrist (Acute) Septic olecranon bursitis of right elbow (Acute) Skin necrosis (Acute) Infected decubitus ulcer (Acute) Olecranon bursitis of right elbow (Acute) Severe sepsis (Acute) Complicated urinary tract infection (Acute) Hematuria (Acute) Pressure ulcer of left buttock, stage 2 (Resolved) 1. Acute hyperkalemia likely medication induced * resolved. K is no2 3. Will replace and monitor * nephro on board * 2. Hypokalemia: Likely due to Kayexalate administration. Potassium is 3 today. Will replace and monitor. * 3. Septic shock likely due to UTI * remains on levophed. * blood and urine cultures sent * on IV meropenem * ID on board. * 3. Acute renal failure due to vancomycin toxicity * baseline Cr is ~ 0.3. Creatinine admission was 2.11. Cr today is 1.76. * Likely due to vancomycin toxicity. * Random vancomycin level was 43.2 on admission. Vancomycin on hold. * Nephrology consulted. Will await recs. * 4. Acute on chronic anemia: * Hemoglobin down to 6.7 today. Source of bleeding not clear * will transfuse with 2 units of PRBC. * Has a history of acute blood loss anemia from decubitus ulcers. * 5. Lactic acidosis: Lactic acid is 6.4 likely due to septic shock. Currently on levophed to maintain hemodynamic status. 6. Sacral decubitus ulcers: Present on admission. States undetermined on account of wounds being dressed. Will monitor. 7. Hypoglycemia: * resolved. * Blood sugars in 70s on admission. This is likely due to insulin which was given for hyperkalemia as well as septic shock state. * Accu-Cheks ACHS. 8. Diabetes mellitus: Metformin on hold on account of [place] and hypoglycemia. ISS. Accuchecks ACHS 9. Hypertension/ hyperlipidemia: Blood pressure medications on hold on account of hypotension. On statin. 10. Chronic osteomyelitis: Has chronic osteomyelitis of sacral wounds. Acute on board. 11. Malnutrition: Albumin is only 1.7. This is likely due to patient's multiple comorbidities. Dietary on board 12. Nonanion gap metabolic acidosis: bicarb was 12, likely due to HIMANSHU. Received sodium bicarb drip yesterday, and bicarb is 22 today. DVT prophylaxis: lovenox SC 30mg daily. Code status: patient now wants her family to return from [place] before any decision is made about her code status. * Code Visit Inpatient E&M: 71154 Subs Hosp L3
--- NOTE | 2018-07-22 10:14 | PCM.PN.REN ---
Patient Problems: Active and Suspected Problems (Last Reviewed 07/21/18 @ 03:46 by Jaison Lopez MD) Hyperkalemia (Acute) Acute hyperkalemia (Acute) Acute kidney failure (Acute) Metabolic acidemia (Acute) Subjective: Patient has no complaint. No nausea no vomiting. No shortness of breath - Physical Exam General: Alert, Oriented x3 HEENT: Atraumatic Oral: Moist Mucosa Neck: Supple, No JVD Lungs: Clear to auscultation, Normal air movement, No rhonchi, No wheeze Cardiovascular: Regular Rhythm, Normal S1, Normal S2, Tachycardic Abdomen: Bowel Sounds Present, Soft, Non Tender Extremities: No clubbing, No cyanosis, Edema - edema of the upper extremity +1, - Skin: No rashes Musculoskeletal: No Tenderness to Palpation of Joints or Extremities Neurological: - - Decreased leg strength, awake alert oriented x3 Psych/Mental Status: Normal Affect Vital Signs Temp Pulse Resp BP Pulse Ox 98.7 F 126 H 17 136/71 H 100 07/22/18 10:09 07/22/18 10:09 07/22/18 10:09 07/22/18 10:09 07/22/18 10:09 Oxygen Delivery Method Room Air Weight: 72.2 kg Body Mass Index (BMI) 26.9 Finger Stick Blood Glucose 154 Intake and Output for Last 24 Hours 07/20/18 07/21/18 07/22/18 23:59 23:59 23:59 Intake Total 4400.4 / 4400.4 1162.9 / 1162.9 Output Total 2100 / 2100 500 / 500 Balance 2300.4 / 2300.4 662.9 / 662.9 Laboratory Tests Past 24 Hrs 07/21/18 07/21/18 07/21/18 09:53 12:05 20:00 WBC RBC Hgb Hct MCV MCH MCHC RDW RDW Differential Plt Count MPV Immature Gran % (Auto) Neut % (Auto) Lymph % (Auto) [place] % (Auto) Eos % (Auto) Baso % (Auto) Absolute Neuts (auto) Absolute Lymphs (auto) Total Counted Platelet Estimate Hypochromasia Anisocytosis Sodium Potassium 7.0 H* 4.4 Chloride Carbon Dioxide BUN Creatinine Estim Creat Clear Calc Est GFR (MDRD) Af Amer Est GFR (MDRD) Non-Af BUN/Creatinine Ratio Glucose Lactic Acid 6.5 H* Calcium Phosphorus Albumin Blood Type Antibody Screen Crossmatch 07/22/18 07/22/18 07/22/18 03:50 03:50 06:25 WBC 7.5 RBC 2.26 L Hgb 6.7 L Hct 21.0 L MCV 92.9 MCH 29.6 MCHC 31.9 L RDW 22.4 H RDW Differential 74.3 H Plt Count 205 MPV 8.6 Immature Gran % (Auto) 0.700 Neut % (Auto) 83.1 H Lymph % (Auto) 10.7 L [place] % (Auto) 5.5 Eos % (Auto) 0.0 Baso % (Auto) 0.0 Absolute Neuts (auto) 6.2 Absolute Lymphs (auto) 0.80 L Total Counted Not Reportable Platelet Estimate ADEQUATE Hypochromasia 1+ Anisocytosis 2+ Sodium 144 Potassium 3.0 L Chloride 109 H Carbon Dioxide 22.0 BUN 84 H Creatinine 1.76 H Estim Creat Clear Calc 24.96 Est GFR (MDRD) Af Amer 37 L Est GFR (MDRD) Non-Af 30 L BUN/Creatinine Ratio 47.7 H Glucose 156 H Lactic Acid Calcium 7.5 L Phosphorus 3.9 Albumin 1.7 L Blood Type B POSITIVE Antibody Screen NEGATIVE Crossmatch See Detail POC Glucose 07/22/18 07/22/18 07/21/18 08:40 06:34 22:39 POC Glucose 100 113 H 200 H 07/21/18 07/21/18 16:45 10:25 POC Glucose 156 H 119 H Medical Necessity - Tobacco Use Smoking Status: Never smoker Assessment/Plan All Active Problems (Last Reviewed 07/21/18 @ 03:46 by Jaison Lopez MD) Hyperkalemia (Acute) Acute hyperkalemia (Acute) Acute kidney failure (Acute) Metabolic acidemia (Acute) Abscess, wrist (Acute) Septic olecranon bursitis of right elbow (Acute) Skin necrosis (Acute) Infected decubitus ulcer (Acute) Olecranon bursitis of right elbow (Acute) Severe sepsis (Acute) Complicated urinary tract infection (Acute) Hematuria (Acute) Pressure ulcer of left buttock, stage 2 (Resolved) 1- HIMANSHU is most probably from ATN induced by vancomycin toxicity. Cr peaked at 2.1 mg/dl from normal baseline at 0.4 mg/dl UA showed 100 protein WBC 10-25, RBC 10-25 and LSE 100. Kidney function is improving. Creatinine down to 1.8 mg/dL today No indication for HD Keep MAP >65 and vancomycin level 15-20 Continue holding resolve with medical treatment losartan Accurate I/O documentation 2- hyperkalemia: from HIMANSHU and acidosis Resolved with medical treatment and kidney function improvement.K peaked at 9.8 . Today potassium 3. Patient was given supplement r 3- Transient Afib with conductive delay from hyperkalemia: Patient is now tachycardic. Potassium level improved. I will defer management to the ICU team 4- Metabolic acidosis.from lactic acidosis from metformin. Lowest HCO3 level was 12. Bicarb level improved to 22 with a sodium bicarb drip. I will decrease the rate to 75 mL/h 5- Hemodynamic shock from sepsis/cardiogenic On levophed. Keep MAP >65 ID is following for Abx Renal team will continue to follow Please call if any question at [phone] D/W with patient and her family and with Dr. Joseph TEMPLE MD
[2018-07-22] MEDS: Insulin Lispro 100 UNIT/ML INSULN.PEN SC ×3 (12:01→21:11)
[2018-07-22 12:21] LABS: Bedside Glucose 156 mg/dL (70-110)
--- NOTE | 2018-07-22 13:04 | CASEMGMT ---
Addendum entered by Debby Ivory 07/22/18 15:03: SW called pt's niece, she is just arriving now and plans to speak w/pt. SW explained called all four nursing homes in this area, [facility] and [facility] have bed availability, and [facility] and [place] may have bed availability. SW requested to Maru that she leave this SW a message to let SW know what they would like to do, have inpt hospice come assess in the morning or have a referral sent to a different detention. She will do so and said her dad will be here tomorrow (Rolf, pt's brother), will have him also follow up w/SW tomorrow. Debby Ivory, RADHA-S, MEDICAL EQUIPMENT TECHNICIAN Original Note: SW spoke w/pt and augustina Fernando in room in regard to discharge plan. As per Fernando, the plan is for pt to go to the inpt hospice unit from here until pt's POA (Jay Kasper, pt's sister in law) returns from [place], to decide where pt should go next. SW explained that in order for someone to go to the inpt hospice unit they need to qualify and be assessed, and that pt would need to have symptoms that need managed. Fernando was not present yesterday for the two hospice meetings, she is explained to SW what pt's niiker Mahoney(pt's alternate POA) had explained to her. Fernando also explained that pt's POA Jay had said pt is not returning to [place] and instructed Fernando to collect pt's belongings from [place], which she did. SW explained to Fernando that the decision is up to the pt, not the POA, as pt is capable of making her own decisions. Fernando explained family was upset about how [place] handled pt's hospitalization, as they did not call family--and she states still nobody from [place] has called family--about pt going to the hospital. SW offered understanding. After much further discussion, SW let Fernando know would call hospice directly to get an understanding of the conversation and also SW would like to speak w/Maru, as she was present for the meeting yesterday. SW called [facility], spoke w/Sherlyn. Sherlyn explained that they did talk about the inpt hospice unit, she explained pt would need to be assessed for this, and that if pt is a candidate would be able to go there. Sherlyn also explained that pt could get hospice at [place]. ALEX went back to speak w/Fernando, she was on the phone w/Maru so SW spoke w/Maru. It was Maru's understanding that pt did need assessed, but Sherlyn from hospice said that pt was a good candidate for the inpt unit. Maru understood Sherlyn to say that pt could go to the inpt hospice unit then transition back to [place]. ALEX clarified w/Maru that pt can be assessed for the inpt unit, and someone from hospice would need to come see her to see if she qualifies. If she does qualify, and ALEX explained that this means she would need to have symptoms that need managed, pt could go to that unit and when stable transition back to [place] on hospice. ALEX reviewed hospice care being end of life care, and pt would not be coming back to the hospital but rather would have her symptoms managed. Maru states understanding. Maru asked how long pt will be here, ALEX explained will find out. Maru asked what all of the options from here would be. ALEX explained that pt can be assessed for the inpt hospice unit and if this is what the pt wants, and she qualifies, pt could go there from here. If she does not want this or does not qualify, pt could return to [place], go home if family can care for her, or go to another detention. ALEX gave Maru the names of the other nursing homes in [facility] to consider. ALEX also explained that pt could return to [place] and then could move her once family has a chance to look at other facilities. Maru states understanding. ALEX explained will call physician and let her know what physician states, will call her back. Maru states also that pt is capable of making her own decisions but yesterday was so tired she did not participate fully in the conversation, they still need to speak w/pt ALEX spoke w/physician, she states pt has said she does not want to make any decisions until family returns from [place]. If pt is interested in the inpt hospice unit, pt could be assessed any time for this and be transferred. ALEX will call Maru, pt's niece back, and explain this to her. ALEX called Maru, explained the above, that pt could be assessed for the inpt unit really any time. She plans to be here shortly and plans to speak w/pt about hospice and other detention options. She asked if SW can call the other facilities to see who has availability, SW explained can do so. and will let her know. ALEX called [facility], message left. SW called [facility], they do have shelter availability. SW called [facility], message left. SW called [facility], they can look at her case. JULIA Pat, MEDICAL EQUIPMENT TECHNICIAN
--- NOTE | 2018-07-22 15:24 | NURSING ---
wound photo: left ischium
--- NOTE | 2018-07-22 15:24 | NURSING ---
wound photo: sacrum
--- NOTE | 2018-07-22 15:27 | NURSING ---
wound photo: right ischium
[2018-07-22 17:26] LABS: Bedside Glucose 206 mg/dL (70-110)
[2018-07-22] MEDS: oxyCODONE 5 MG Tablet PO (21:09)
[2018-07-22] MEDS: Latanoprost 0.005% 1 Bottle 1 DRP EACH EYE (21:12)
[2018-07-22 21:56] LABS: Bedside Glucose 288 mg/dL (70-110)
[2018-07-23] VITALS (26 sets, daily range): BP systolic 93–135; BP diastolic 51–78; PULSE 91–126; RESP 12–19; TEMP 36.3–37.1; O2SAT 95–100
[2018-07-23 04:59] LABS: Absolute Lymphocyte Count 1.38 X10^3/ul (0.83-4.51); Absolute Neutrophil Count 4.5 X10^3/uL (2.0-7.7); Basophil# 0.01 X10^3/uL; Basophil% 0.2 % (0-1); Eosinophil# 0.06 X10^3/uL; Eosinophils% 0.9 % (0-5); Hematocrit 27.8 % (37-47); Hemoglobin 8.7 g/dl (12.0-15.0); Lymphocyte # 1.38 X10^3/ul (4.0); Lymphocyte % 20.9 % (19-41); Mean Corp Hgb Conc 31.3 g/gl (32-36); Mean Corpuscular Hgb 29.1 pg (27.0-32.0); Mean Platelet Vol. 8.4 fl (6.2-12.0); Monocyte# 0.54 X10^3/uL; Monocyte% 8.2 % (0-10); Neutrophil # 4.51 X10^3/uL (2.7-7.7); Neutrophil % 68.1 % (47-70); Platelet Count 188 K/mm3 (150-450); RBC Distribution Width CV 19.3 % (11.6-14.6); RBC Distribution Width SD 59.8 fl (35.1-43.9); Red Blood Count 2.99 M/mm3 (4.2-5.4); White Blood Count 6.6 K/mm3 (4.4-11.0)
[2018-07-23 05:01] LABS: POSITIVE COUNT NO; POSITIVE DIFFERENTIAL NO; POSITIVE MORPHOLOGY NO
[2018-07-23 05:18] LABS: Albumin, Serum 1.7 g/dL (3.2-5.0); BUN 69 mg/dL (7-18); BUN/Creat Ratio 43.4 RATIO (10-20); Calcium,Total 7.2 mg/dL (8.5-10.1); Chloride 101 mmol/L (98-107); Creatinine, Serum 1.59 mg/dL (0.55-1.02); EST Glomerular Filtration Rate 34 mL/min (>60); Est Glom Filt Rate - Afr Amer 41 mL/min (>60); Estimated Creatinine Clearance 27.62 ml/min; Glucose 207 mg/dL (74-106); Phosphorus 1.5 mg/dL (2.5-4.9); Potassium 2.5 mmol/L (3.5-5.1); Sodium Level 143 mmol/L (136-145)
[2018-07-23 06:19] LABS: Magnesium 1.4 mg/dL (1.6-2.6)
--- NOTE | 2018-07-23 07:11 | PN_ITS ---
Subjective: Patient did well overnight. No hemodynamic instability has been reported. Patient has had adequate urine output. Patient continues to be on room air. Patient with no complaints outside of puffiness. General: Alert, Oriented x3, Cooperative, No apparent distress, - - Anasarca. No conversational dyspnea noted. HEENT: Atraumatic, PERRLA, EOMI, Normocephalic, - - Slight scleral injection. Periorbital edema appreciated. Oral: Moist Mucosa, No Gingival or Mucosal Lesions/ Ulcerations Neck: Supple, No Nodes, Trachea Midline, JVD, Right Lungs: No rhonchi, No wheeze, No rales, Diminished, - - Symmetric expansion. No dullness to percussion. Cardiovascular: Normal S1, Normal S2, No murmurs, No rub noted, No Gallop, Tachycardic Abdomen: Bowel Sounds Present, Soft, Non Tender, Non-Distended, Obese Extremities: No clubbing, No cyanosis, Edema Skin: - - No significant change compared to previous Musculoskeletal: No Tenderness to Palpation of Joints or Extremities Lymphatic: No Cervical, Supraclavicular, or Inguinal Adenopathy Neurological: Cranial nerves II-XII grossly intact, Neuro grossly intact Psych/Mental Status: Normal Affect, Appropriate Vital Signs Temp Pulse Resp BP Pulse Ox 36.4 C L 106 H 13 97/60 96 07/23/18 06:00 07/23/18 06:00 07/23/18 06:00 07/23/18 06:00 07/23/18 06:00 Oxygen Delivery Method Room Air Weight: 74.5 kg Body Mass Index (BMI) 26.9 Finger Stick Blood Glucose 154 Intake and Output for Last 24 Hours 07/21/18 07/22/18 07/23/18 23:59 23:59 23:59 Intake Total 4400.4 / 4400.4 4911.9 / 4911.9 832 / 832 Output Total 2100 / 2100 1400 / 1400 600 / 600 Balance 2300.4 / 2300.4 3511.9 / 3511.9 232 / 232 Labs (Last 48 Hours) 07/21/18 07/21/18 07/21/18 08:19 09:53 10:25 WBC RBC Hgb Hct MCV MCH MCHC RDW RDW Differential Plt Count MPV Immature Gran % (Auto) Neut % (Auto) Lymph % (Auto) [place] % (Auto) Eos % (Auto) Baso % (Auto) Absolute Neuts (auto) Absolute Lymphs (auto) Total Counted Platelet Estimate Hypochromasia Anisocytosis Sodium Potassium Chloride Carbon Dioxide BUN Creatinine Estim Creat Clear Calc Est GFR (MDRD) Af Amer Est GFR (MDRD) Non-Af BUN/Creatinine Ratio Glucose Lactic Acid 6.5 H* Calcium Phosphorus Magnesium Albumin POC Glucose 85 119 H Blood Type Antibody Screen Crossmatch 07/21/18 07/21/18 07/21/18 12:05 16:45 20:00 WBC RBC Hgb Hct MCV MCH MCHC RDW RDW Differential Plt Count MPV Immature Gran % (Auto) Neut % (Auto) Lymph % (Auto) [place] % (Auto) Eos % (Auto) Baso % (Auto) Absolute Neuts (auto) Absolute Lymphs (auto) Total Counted Platelet Estimate Hypochromasia Anisocytosis Sodium Potassium 7.0 H* 4.4 Chloride Carbon Dioxide BUN Creatinine Estim Creat Clear Calc Est GFR (MDRD) Af Amer Est GFR (MDRD) Non-Af BUN/Creatinine Ratio Glucose Lactic Acid Calcium Phosphorus Magnesium Albumin POC Glucose 156 H Blood Type Antibody Screen Crossmatch 07/21/18 07/22/18 07/22/18 22:39 03:50 03:50 WBC 7.5 RBC 2.26 L Hgb 6.7 L Hct 21.0 L MCV 92.9 MCH 29.6 MCHC 31.9 L RDW 22.4 H RDW Differential 74.3 H Plt Count 205 MPV 8.6 Immature Gran % (Auto) 0.700 Neut % (Auto) 83.1 H Lymph % (Auto) 10.7 L Phillips % (Auto) 5.5 Eos % (Auto) 0.0 Baso % (Auto) 0.0 Absolute Neuts (auto) 6.2 Absolute Lymphs (auto) 0.80 L Total Counted Not Reportable Platelet Estimate ADEQUATE Hypochromasia 1+ Anisocytosis 2+ Sodium 144 Potassium 3.0 L Chloride 109 H Carbon Dioxide 22.0 BUN 84 H Creatinine 1.76 H Estim Creat Clear Calc 24.96 Est GFR (MDRD) Af Amer 37 L Est GFR (MDRD) Non-Af 30 L BUN/Creatinine Ratio 47.7 H Glucose 156 H Lactic Acid Calcium 7.5 L Phosphorus 3.9 Magnesium Albumin 1.7 L POC Glucose 200 H Blood Type Antibody Screen Crossmatch 07/22/18 07/22/18 07/22/18 06:25 06:34 08:40 WBC RBC Hgb Hct MCV MCH MCHC RDW RDW Differential Plt Count MPV Immature Gran % (Auto) Neut % (Auto) Lymph % (Auto) [place] % (Auto) Eos % (Auto) Baso % (Auto) Absolute Neuts (auto) Absolute Lymphs (auto) Total Counted Platelet Estimate Hypochromasia Anisocytosis Sodium Potassium Chloride Carbon Dioxide BUN Creatinine Estim Creat Clear Calc Est GFR (MDRD) Af Amer Est GFR (MDRD) Non-Af BUN/Creatinine Ratio Glucose Lactic Acid Calcium Phosphorus Magnesium Albumin POC Glucose 113 H 100 Blood Type B POSITIVE Antibody Screen NEGATIVE Crossmatch See Detail 07/22/18 07/22/18 07/22/18 11:57 17:09 20:59 WBC RBC Hgb Hct MCV MCH MCHC RDW RDW Differential Plt Count MPV Immature Gran % (Auto) Neut % (Auto) Lymph % (Auto) [place] % (Auto) Eos % (Auto) Baso % (Auto) Absolute Neuts (auto) Absolute Lymphs (auto) Total Counted Platelet Estimate Hypochromasia Anisocytosis Sodium Potassium Chloride Carbon Dioxide BUN Creatinine Estim Creat Clear Calc Est GFR (MDRD) Af Amer Est GFR (MDRD) Non-Af BUN/Creatinine Ratio Glucose Lactic Acid Calcium Phosphorus Magnesium Albumin POC Glucose 156 H 206 H 288 H Blood Type Antibody Screen Crossmatch 07/23/18 07/23/18 07/23/18 04:45 04:45 04:45 WBC 6.6 RBC 2.99 L Hgb 8.7 L Hct 27.8 L MCV 93.0 MCH 29.1 MCHC 31.3 L RDW 19.3 H RDW Differential 59.8 H Plt Count 188 MPV 8.4 Immature Gran % (Auto) 1.700 H Neut % (Auto) 68.1 Lymph % (Auto) 20.9 Phillips % (Auto) 8.2 Eos % (Auto) 0.9 Baso % (Auto) 0.2 Absolute Neuts (auto) 4.5 Absolute Lymphs (auto) 1.38 Total Counted Not Reportable Platelet Estimate Hypochromasia Anisocytosis Sodium 143 Potassium 2.5 L* Chloride 101 Carbon Dioxide 31.0 BUN 69 H Creatinine 1.59 H Estim Creat Clear Calc 27.62 Est GFR (MDRD) Af Amer 41 L Est GFR (MDRD) Non-Af 34 L BUN/Creatinine Ratio 43.4 H Glucose 207 H Lactic Acid Calcium 7.2 L Phosphorus 1.5 L Magnesium 1.4 L Albumin 1.7 L POC Glucose Blood Type Antibody Screen Crossmatch Microbiology 07/21/18 05:00 Urine Catheter - Catheter Urine Culture - Preliminary Culture exhibits no growth. Medical Necessity - Tobacco Use Smoking Status: Never smoker Assessment/Plan All Active Problems (Last Reviewed 07/21/18 @ 03:46 by Jaison Lopez MD) Hyperkalemia (Acute) Acute hyperkalemia (Acute) Acute kidney failure (Acute) Metabolic acidemia (Acute) Abscess, wrist (Acute) Septic olecranon bursitis of right elbow (Acute) Skin necrosis (Acute) Infected decubitus ulcer (Acute) Olecranon bursitis of right elbow (Acute) Severe sepsis (Acute) Complicated urinary tract infection (Acute) Hematuria (Acute) Pressure ulcer of left buttock, stage 2 (Resolved) RECOMMENDATIONS: 1. Repeat BMP at 2 PM 2. Aggressive magnesium and potassium supplementation 3. Continue antibiotics per infectious disease 4. Increase activity as tolerated 5. Watch blood sugars closely 6. Reinitiate diuretics once potassium repleted 7. Possible transfer from the intensive care unit later today IMPRESSIONS: 1. Septic shock secondary to probable UTI Patient required initiation of pressor therapy previously, but is been doing well for over 24 hours. Patient with no significant drop in hemoglobin and an appropriate response to blood transfusion. Patient does appear to have significant anasarca, but diuretic therapy would be contraindicated given low potassium. Infectious disease following for antibiotics 2. Acute renal failure secondary to probable vancomycin toxicity/hyperkalemia Patient with significant worsening in renal function as compared to June with a baseline of 0.3-0.4. Patient's vancomycin level is significantly elevated and may have induced renal failure. Patient is currently off of pressor therapy and creatinine continues to improve. Unfortunately, patient has significant hypokalemia, which is likely secondary to repeated doses of Kayexalate. Patient also found to have hypomagnesemia. Aggressive repletion will be ordered. Patient is having anasarca, but diuretic therapy would be contraindicated until potassium is repleted. 3. Chronic osteomyelitis Continue with wound care for now. Poor long-term prognosis. 4. Hypoglycemia Resolved. Currently on a diet. Unclear if this is secondary to septic shock versus exogenous insulin given for hyperkalemia. Will check blood sugars closely. 5. Multiple decubitus ulcers/spinal stenosis/deconditioning/hyperlipidemia/hypertension/diabetes mellitus/anemia of chronic disease Complicates care, management, recovery and prognosis. Patient reportedly did not want to be DNR [facility] while family was [place] of country. This will need to be clarified. Continue to monitor blood sugars closely as patient has received insulin secondary to hyperkalemia. Code Visit Inpatient E&M: 90050 Subs Hosp L3
[2018-07-23] MEDS: Insulin Lispro 100 UNIT/ML INSULN.PEN SC ×4 (07:42→21:43)
[2018-07-23] MEDS: Magnesium Sulfate 4gm/100mL 4 GM/100 ML IV.SOLN. IV (07:47)
[2018-07-23 08:00] LABS: Bedside Glucose 174 mg/dL (70-110)
--- NOTE | 2018-07-23 08:35 | CASEMGMT ---
SW received a message from pt's alternate POA, Maru Mayorga. She states that pt does not want to be assessed for the inpt hospice unit at this time. She states pt would like to consider going to [facility] or [facility] at discharge, [facility] being the first choice. SW faxed referral to [facility], called and left Cara at [facility] a message letting her know the referral was faxed and to let this SW know if they can take pt. If they can take pt, a new level of care will likely be needed. SW will continue to follow. JULIA Pat, INTERCEPTOR OPERATOR
--- NOTE | 2018-07-23 09:09 | PCM.PN.REN ---
Patient Problems: Active and Suspected Problems (Last Reviewed 07/21/18 @ 03:46 by Jaison Lopez MD) Hyperkalemia (Acute) Acute hyperkalemia (Acute) Acute kidney failure (Acute) Metabolic acidemia (Acute) Subjective: Patient denies any nausea vomiting no shortness of breath Complaiing of edema in her upper extremities - Physical Exam General: Alert, Oriented x3 HEENT: Atraumatic Oral: Moist Mucosa Neck: Supple, No JVD Lungs: Clear to auscultation, Normal air movement, No rhonchi Cardiovascular: Normal S1, Normal S2, Irregular Rate, Tachycardic Abdomen: Bowel Sounds Present, Non Tender Extremities: No clubbing, No cyanosis, Edema - +1 edema of lower extremities. Trace edema of lower extremities Skin: No rashes Musculoskeletal: No Tenderness to Palpation of Joints or Extremities Lymphatic: No Cervical, Supraclavicular, or Inguinal Adenopathy Psych/Mental Status: Appropriate Vital Signs Temp Pulse Resp BP Pulse Ox 97.4 F L 123 H 19 H 120/76 98 07/23/18 08:00 07/23/18 09:00 07/23/18 09:00 07/23/18 09:00 07/23/18 09:00 Oxygen Delivery Method Room Air Weight: 74.5 kg Body Mass Index (BMI) 26.9 Finger Stick Blood Glucose 154 Intake and Output for Last 24 Hours 07/21/18 07/22/18 07/23/18 23:59 23:59 23:59 Intake Total 4400.4 / 4400.4 4911.9 / 4911.9 832 / 832 Output Total 2100 / 2100 1400 / 1400 600 / 600 Balance 2300.4 / 2300.4 3511.9 / 3511.9 232 / 232 Microbiology Past 72 Hours 07/21/18 06:00 Blood Culture - Preliminary Blood Culture (Wb) - Right Wrist No growth in 48 hours. 07/21/18 06:00 Blood Culture - Preliminary Blood Culture (Wb) - Arm Left No growth in 48 hours. 07/21/18 05:00 Urine Culture - Preliminary Urine Catheter - Catheter Culture exhibits no growth. Laboratory Tests Past 24 Hrs 07/22/18 07/23/18 07/23/18 06:25 04:45 04:45 WBC 6.6 RBC 2.99 L Hgb 8.7 L Hct 27.8 L MCV 93.0 MCH 29.1 MCHC 31.3 L RDW 19.3 H RDW Differential 59.8 H Plt Count 188 MPV 8.4 Immature Gran % (Auto) 1.700 H Neut % (Auto) 68.1 Lymph % (Auto) 20.9 [place] % (Auto) 8.2 Eos % (Auto) 0.9 Baso % (Auto) 0.2 Absolute Neuts (auto) 4.5 Absolute Lymphs (auto) 1.38 Total Counted Not Reportable Sodium 143 Potassium 2.5 L* Chloride 101 Carbon Dioxide 31.0 BUN 69 H Creatinine 1.59 H Estim Creat Clear Calc 27.62 Est GFR (MDRD) Af Amer 41 L Est GFR (MDRD) Non-Af 34 L BUN/Creatinine Ratio 43.4 H Glucose 207 H Calcium 7.2 L Phosphorus 1.5 L Magnesium Albumin 1.7 L Blood Type B POSITIVE Antibody Screen NEGATIVE Crossmatch See Detail 07/23/18 04:45 WBC RBC Hgb Hct MCV MCH MCHC RDW RDW Differential Plt Count MPV Immature Gran % (Auto) Neut % (Auto) Lymph % (Auto) [place] % (Auto) Eos % (Auto) Baso % (Auto) Absolute Neuts (auto) Absolute Lymphs (auto) Total Counted Sodium Potassium Chloride Carbon Dioxide BUN Creatinine Estim Creat Clear Calc Est GFR (MDRD) Af Amer Est GFR (MDRD) Non-Af BUN/Creatinine Ratio Glucose Calcium Phosphorus Magnesium 1.4 L Albumin Blood Type Antibody Screen Crossmatch POC Glucose 07/23/18 07/22/18 07/22/18 07:40 20:59 17:09 POC Glucose 174 H 288 H 206 H 07/22/18 11:57 POC Glucose 156 H Medical Necessity - Tobacco Use Smoking Status: Never smoker Assessment/Plan All Active Problems (Last Reviewed 07/21/18 @ 03:46 by Jaison Lopez MD) Hyperkalemia (Acute) Acute hyperkalemia (Acute) Acute kidney failure (Acute) Metabolic acidemia (Acute) Abscess, wrist (Acute) Septic olecranon bursitis of right elbow (Acute) Skin necrosis (Acute) Infected decubitus ulcer (Acute) Olecranon bursitis of right elbow (Acute) Severe sepsis (Acute) Complicated urinary tract infection (Acute) Hematuria (Acute) Pressure ulcer of left buttock, stage 2 (Resolved) 1- HIMANSHU is most probably from ATN induced by vancomycin toxicity. Cr peaked at 2.1 mg/dl from normal baseline at 0.4 mg/dl UA showed 100 protein WBC 10-25, RBC 10-25 and LSE 100. Kidney function is improving. Creatinine down to 1.59 mg/dL today No indication for HD Keep MAP >65 Continue holding losartan Accurate I/O documentation 2- hyperkalemia: from HIMANSHU and acidosis Resolved with medical treatment and kidney function improvement.K peaked at 9.8 . 3-hypokalemia potassium 2.5 today. Patient is going to receive 120 mEq of potassium today. I will stop sodium bicarb drip which will help to decrease kaliuresis 4-hypomagnesemia. Magnesium level is 1.4. Patient is going to receive magnesium sulfate 4 g IV please check magnesium level in the morning. 5-hypophosphatemia phosphorus level: P level is low at 1.5. Patient is going to receive K-Phos 30 mmol IV 6- Transient Afib with conductive delay from hyperkalemia: Patient is now tachycardic. I will defer management to the ICU team 7- Metabolic acidosis.from lactic acidosis from metformin and acute kidney injury. Lowest HCO3 level was 12. Bicarb level improved to 31. I will stop sodium bicarb drip 8- Hemodynamic shock from sepsis/cardiogenic On levophed. Keep MAP >65 ID is following for Abx Renal team will continue to follow Please call if any question at [phone] D/W with patient and with Dr. Joseph TEMPLE MD
--- NOTE | 2018-07-23 09:16 | PCM.PN.HOSP ---
Patient Problems: Active and Suspected Problems (Last Reviewed 07/21/18 @ 03:46 by Jaison Lopez MD) Hyperkalemia (Acute) Acute hyperkalemia (Acute) Acute kidney failure (Acute) Metabolic acidemia (Acute) Subjective: Patient seen and examined. She has no complaints and feels well. Labs and vitals reviewed. He is now off Levophed. Potassium noted to be 2.5 today as well as low magnesium OF 1.4 and low phosphorus of 1.5. ecclesiastical worker informed me yesterday that patient's family was under the impression that patient would be going to hospice from here. Patient's POA is his [id number] who is currently in [place]. It does appear that patient's family was not happy with the care she was receiving at [facility] and do not wanted to go back to [place]. I discussed with patient extensively about her wishes as they seem to be conflicting information from with the patient told us her wishes well with the family was seen. Patient states that she would want all treatment given unless her heart arrests or she needs to be put on a ventilator. She however does not want to go back to [place] because she does not feel like her decubitus ulcers will be taking care of well there. Patient counseled that there where she was describing, her CODE STATUS was actually DNR CCA DNR CC as in the computer. Patient clarified that she understood that her CODE STATUS actually should be DNR CCA and is willing to have the change. She however states that she needs help communicating to the family what her wishes are because of all the confusion that is occurring. Vitals/I&O's: Vital Signs Temp Pulse Resp BP Pulse Ox 97.4 F L 123 H 19 H 120/76 98 07/23/18 08:00 07/23/18 09:00 07/23/18 09:00 07/23/18 09:00 07/23/18 09:00 Oxygen Delivery Method Room Air Weight: 164 lb 3.91 oz Body Mass Index (BMI) 26.9 Finger Stick Blood Glucose 154 Intake and Output for Last 24 Hours 07/21/18 07/22/18 07/23/18 23:59 23:59 23:59 Intake Total 4400.4 / 4400.4 4911.9 / 4911.9 832 / 832 Output Total 2100 / 2100 1400 / 1400 600 / 600 Balance 2300.4 / 2300.4 3511.9 / 3511.9 232 / 232 General: Alert, Oriented x3, Cooperative, HEENT: Atraumatic, PERRLA, EOMI, Normocephalic Oral: Dry Mucosa Neck: Supple, No JVD, Negative Carotid Bruits Lungs: - - decreased breath sounds bibasally, no wheezes or crackles Cardiovascular: Regular rate, Regular Rhythm, Normal S1, Normal S2, No murmurs Abdomen: Bowel Sounds Present, Soft, Non Tender, Non-Distended, No Hepato-splenomegaly Extremities: No clubbing, No cyanosis, No edema, Capillary Refill Less than 3 Seconds Skin: - - stage 4 decubitus ulcers over buttocks dressed and sacrum; present on admission Musculoskeletal: No Tenderness to Palpation of Joints or Extremities Lymphatic: No Cervical, Supraclavicular, or Inguinal Adenopathy Neurological: Cranial nerves II-XII grossly intact Psych/Mental Status: Normal Affect, Appropriate, Alert and oriented to time, place, person, mood and affect Microbiology Past 72 Hours 07/21/18 06:00 Blood Culture (Wb) - Right Wrist Blood Culture - Preliminary No growth in 48 hours. 07/21/18 06:00 Blood Culture (Wb) - Arm Left Blood Culture - Preliminary No growth in 48 hours. 07/21/18 05:00 Urine Catheter - Catheter Urine Culture - Preliminary Culture exhibits no growth. Laboratory Results 07/22/18 06:25: Blood Type B POSITIVE, Antibody Screen NEGATIVE, Crossmatch See Detail 07/22/18 11:57: POC Glucose 156 H 07/22/18 17:09: POC Glucose 206 H 07/22/18 20:59: POC Glucose 288 H 07/23/18 04:45: WBC 6.6, RBC 2.99 L, Hgb 8.7 L, Hct 27.8 L, MCV 93.0, MCH 29.1, MCHC 31.3 L, RDW 19.3 H, RDW Differential 59.8 H, Plt Count 188, MPV 8.4, Immature Gran % (Auto) 1.700 H, Neut % (Auto) 68.1, Lymph % (Auto) 20.9, White % (Auto) 8.2, Eos % (Auto) 0.9, Baso % (Auto) 0.2, Absolute Neuts (auto) 4.5, Absolute Lymphs (auto) 1.38, Total Counted Not Reportable 07/23/18 04:45: Sodium 143, Potassium 2.5 L*, Chloride 101, Carbon Dioxide 31.0, BUN 69 H, Creatinine 1.59 H, Estim Creat Clear Calc 27.62, Est GFR (MDRD) Af Amer 41 L, Est GFR (MDRD) Non-Af 34 L, BUN/Creatinine Ratio 43.4 H, Glucose 207 H, Calcium 7.2 L, Phosphorus 1.5 L, Albumin 1.7 L 07/23/18 04:45: Magnesium 1.4 L 07/23/18 07:40: POC Glucose 174 H Current Medications Dextrose (D50w Syringe) 0 gm IV X1 PRN; Protocol PRN Reason: Hypoglycemia Enoxaparin Sodium (Lovenox) 30 mg SC DAILY@1000 KEKE Last Admin: 07/22/18 09:49 Dose: 30 mg Fluconazole (Diflucan) 200 mg PO DAILY [facility] Stop: 07/29/18 10:01 Last Admin: 07/22/18 09:49 Dose: 200 mg Gabapentin (Neurontin) 100 mg PO TIDCM [facility] Glucagon () 1 mg IM .X1 PRN PRN Reason: Hypoglycemia Sodium Chloride () 250 mls @ 15 mls/hr IV .[id number] PRN PRN Reason: SALINE FLUSH Last Admin: 07/22/18 12:04 Dose: 15 mls/hr Norepinephrine Bitartrate 8 mg (/ Sodium Chloride) 250 mls @ 9.38 mls/hr CONT INF .[id number] [facility] Last Admin: 07/22/18 14:14 Dose: Not Given Meropenem 500 mg/ Sodium (Chloride) 60 mls @ 100 mls/hr IV Q8 [facility] Stop: 07/29/18 22:35 Last Admin: 07/23/18 05:32 Dose: 100 mls/hr Potassium Phosphate 30 mm/ (Sodium Chloride) 260 mls @ 42 mls/hr IV X1 ONE Stop: 07/23/18 12:10 Last Admin: 07/23/18 07:25 Dose: 42 mls/hr Magnesium Sulfate () 4 gm in 100 mls @ 25 mls/hr IV X1 ONE Stop: 07/23/18 11:29 Last Admin: 07/23/18 07:47 Dose: 25 mls/hr Insulin Human Lispro (Humalog Kwikpen (Bkc)) 0 unit SC ACHS [facility]; Protocol Last Admin: 07/23/18 07:42 Dose: 1 u Latanoprost (Xalatan Opthalmic) 1 drop EACH EYE QHS [facility] Last Admin: 07/22/18 21:12 Dose: 1 drop Nutritional Formula (Sigifredo - [place] Flavor) 1 packet PO BIDCM [facility] Last Admin: 07/23/18 07:42 Dose: 1 packet Oxycodone HCl (Oxyir) 5 mg PO Q4H PRN PRN PRN Reason: SEVERE PAIN (6-01/27) Last Admin: 07/22/18 21:09 Dose: 5 mg Polyethylene Glycol (Miralax) 17 gm PO DAILY [facility] Last Admin: 07/22/18 09:50 Dose: 17 gm Sodium Chloride () 5 - 15 ml IV UD PRN PRN Reason: SALINE FLUSH Last Admin: 07/21/18 10:32 Dose: 10 ml Timolol Maleate (Timoptic) 5 drop EACH EYE BID [facility] Last Admin: 07/22/18 21:12 Dose: 5 drop Medical Necessity - Tobacco Use Smoking Status: Never smoker Assessment/Plan All Active Problems (Last Reviewed 07/21/18 @ 03:46 by Jaison Lopez MD) Hyperkalemia (Acute) Acute hyperkalemia (Acute) Acute kidney failure (Acute) Metabolic acidemia (Acute) Abscess, wrist (Acute) Septic olecranon bursitis of right elbow (Acute) Skin necrosis (Acute) Infected decubitus ulcer (Acute) Olecranon bursitis of right elbow (Acute) Severe sepsis (Acute) Complicated urinary tract infection (Acute) Hematuria (Acute) Pressure ulcer of left buttock, stage 2 (Resolved) 1. Acute hyperkalemia likely medication induced resolved. now hypokelamic nephro on board 2. Hypokalemia: Likely due to Kayexalate administration. Potassium is 2.5 today. Will replace and monitor. 3. Septic shock likely due to UTI now off levophed blood and urine cultures showed no growth on IV meropenem and PO fluconazole ID on board. 3. Acute renal failure due to vancomycin toxicity baseline Cr is ~ 0.3. Creatinine admission was 2.11. Cr today is 1.59 Likely due to vancomycin toxicity. Random vancomycin level was 43.2 on admission. Vancomycin on hold. Nephrology consulted. currently being hydrated with IVF 4. Acute on chronic anemia: s/p transfusion of 2 units of PRBCs Hb today is 8.7 will continue monitoring; keep Hb>7 5. Hypomagnesemia: Mg is 1.4 today. Will replace and monitor 6. Hypophosphatemia: Phosphorous is 1.5 today.Being replaced. Will monitor 7. Lactic acidosis: Lactic acid is 6.4 likely due to septic shock. Now weaned off levophed. 8. Sacral decubitus ulcers: Present on admission. States undetermined on account of wounds being dressed. Will monitor. 9. Hypoglycemia: resolved. 10. Diabetes mellitus: Metformin on hold on account of AK and hypoglycemia. ISS. Accuchecks ACHS 11. Hypertension/ hyperlipidemia: Blood pressure medications on hold on account of hypotension. On statin. 12. Chronic osteomyelitis: Has chronic osteomyelitis of sacral wounds. Acute on board. 13. Malnutrition: Albumin is only 1.7. This is likely due to patient's multiple comorbidities. Dietary on board 14. Nonanion gap metabolic acidosis: resolved. Received bicarb drip. nephro on board. Likely due to HIMANSHU DVT prophylaxis: lovenox SC 30mg daily. Code status: Extensive discussion with patient today about her CODE STATUS as this seems to be conflicting messages from her family and patient. Patient clarifies that she would wish for treatment for her condition and would only one treatment stopped if she goes into cardiopulmonary arrest or she needs a ventilator. Patient counseled that this would like to be DNR CCA. She expresses understanding options. Patient also informed that since she is alert and oriented and able to understand what is going on, she would have to make her own decisions. Patient states that she does not want hospice at this time and does not want to go back to [facility] because she does not feel she was been taking care of them. She would want to go to another [facility] upon discharge. Face to face time: 18 mins. Code Visit Inpatient E&M: 16948 [facility] Hosp L3 Procedures: 27785 Advncd Care Plan 30 Min
--- NOTE | 2018-07-23 09:21 | PN_ITS ---
Patient Problems: Active and Suspected Problems (Last Reviewed 07/21/18 @ 03:46 by Jaison Lopez MD) Hyperkalemia (Acute) Acute hyperkalemia (Acute) Acute kidney failure (Acute) Metabolic acidemia (Acute) Subjective: Patient seen and examined. She has no complaints and feels well. Labs and vitals reviewed. He is now off Levophed. Potassium noted to be 2.5 today as well as low magnesium OF 1.4 and low phosphorus of 1.5. coffee plantation worker informed me yesterday that patient's family was under the impression that patient would be going to hospice from here. Patient's POA is his [id number] who is currently in [place]. It does appear that patient's family was not happy with the care she was receiving at [facility] and do not wanted to go back to [place]. I discussed with patient extensively about her wishes as they seem to be conflicting information from with the patient told us her wishes well with the family was seen. Patient states that she would want all treatment given unless her heart arrests or she needs to be put on a ventilator. She however does not want to go back to [place] because she does not feel like her decubitus ulcers will be taking care of well there. Patient counseled that there where she was describing, her CODE STATUS was actually DNR CCA DNR CC as in the computer. Patient clarified that she understood that her CODE STATUS actually should be DNR CCA and is willing to have the change. She however states that she needs help communicating to the family what her wishes are because of all the confusion that is occurring. Vitals/I&O's: Vital Signs Temp Pulse Resp BP Pulse Ox 97.4 F L 123 H 19 H 120/76 98 07/23/18 08:00 07/23/18 09:00 07/23/18 09:00 07/23/18 09:00 07/23/18 09:00 Oxygen Delivery Method Room Air Weight: 164 lb 3.91 oz Body Mass Index (BMI) 26.9 Finger Stick Blood Glucose 154 Intake and Output for Last 24 Hours 07/21/18 07/22/18 07/23/18 23:59 23:59 23:59 Intake Total 4400.4 / 4400.4 4911.9 / 4911.9 832 / 832 Output Total 2100 / 2100 1400 / 1400 600 / 600 Balance 2300.4 / 2300.4 3511.9 / 3511.9 232 / 232 General: Alert, Oriented x3, Cooperative, HEENT: Atraumatic, PERRLA, EOMI, Normocephalic Oral: Dry Mucosa Neck: Supple, No JVD, Negative Carotid Bruits Lungs: - - decreased breath sounds bibasally, no wheezes or crackles Cardiovascular: Regular rate, Regular Rhythm, Normal S1, Normal S2, No murmurs Abdomen: Bowel Sounds Present, Soft, Non Tender, Non-Distended, No Hepato- splenomegaly Extremities: No clubbing, No cyanosis, No edema, Capillary Refill Less than 3 Seconds Skin: - - stage 4 decubitus ulcers over buttocks dressed and sacrum; present on admission Musculoskeletal: No Tenderness to Palpation of Joints or Extremities Lymphatic: No Cervical, Supraclavicular, or Inguinal Adenopathy Neurological: Cranial nerves II-XII grossly intact Psych/Mental Status: Normal Affect, Appropriate, Alert and oriented to time, place, person, mood and affect Microbiology Past 72 Hours 07/21/18 06:00 Blood Culture (Wb) - Right Wrist Blood Culture - Preliminary No growth in 48 hours. 07/21/18 06:00 Blood Culture (Wb) - Arm Left Blood Culture - Preliminary No growth in 48 hours. 07/21/18 05:00 Urine Catheter - Catheter Urine Culture - Preliminary Culture exhibits no growth. Laboratory Results 07/22/18 06:25: Blood Type B POSITIVE, Antibody Screen NEGATIVE, Crossmatch See Detail 07/22/18 11:57: POC Glucose 156 H 07/22/18 17:09: POC Glucose 206 H 07/22/18 20:59: POC Glucose 288 H 07/23/18 04:45: WBC 6.6, RBC 2.99 L, Hgb 8.7 L, Hct 27.8 L, MCV 93.0, MCH 29.1, MCHC 31.3 L, RDW 19.3 H, RDW Differential 59.8 H, Plt Count 188, MPV 8.4, Immature Gran % (Auto) 1.700 H, Neut % (Auto) 68.1, Lymph % (Auto) 20.9, [place] % (Auto) 8.2, Eos % (Auto) 0.9, Baso % (Auto) 0.2, Absolute Neuts (auto) 4.5, Abso lute Lymphs (auto) 1.38, Total Counted Not Reportable 07/23/18 04:45: Sodium 143, Potassium 2.5 L*, Chloride 101, Carbon Dioxide 31.0, BUN 69 H, Creatinine 1.59 H, Estim Creat Clear Calc 27.62, Est GFR (MDRD) Af Amer 41 L, Est GFR (MDRD) Non-Af 34 L, BUN/Creatinine Ratio 43.4 H, Glucose 207 H, Calcium 7.2 L, Phosphorus 1.5 L, Albumin 1.7 L 07/23/18 04:45: Magnesium 1.4 L 07/23/18 07:40: POC Glucose 174 H Current Medications Dextrose (D50w Syringe) 0 gm IV X1 PRN; Protocol PRN Reason: Hypoglycemia Enoxaparin Sodium (Lovenox) 30 mg SC DAILY@1000 KEKE Last Admin: 07/22/18 09:49 Dose: 30 mg Fluconazole (Diflucan) 200 mg PO DAILY [facility] Stop: 07/29/18 10:01 Last Admin: 07/22/18 09:49 Dose: 200 mg Gabapentin (Neurontin) 100 mg PO TIDCM [facility] Glucagon () 1 mg IM .X1 PRN PRN Reason: Hypoglycemia Sodium Chloride () 250 mls @ 15 mls/hr IV .[id number] PRN PRN Reason: SALINE FLUSH Last Admin: 07/22/18 12:04 Dose: 15 mls/hr Norepinephrine Bitartrate 8 mg (/ Sodium Chloride) 250 mls @ 9.38 mls/hr CONT INF .[id number] [facility] Last Admin: 07/22/18 14:14 Dose: Not Given Meropenem 500 mg/ Sodium (Chloride) 60 mls @ 100 mls/hr IV Q8 [facility] Stop: 07/29/18 22:35 Last Admin: 07/23/18 05:32 Dose: 100 mls/hr Potassium Phosphate 30 mm/ (Sodium Chloride) 260 mls @ 42 mls/hr IV X1 ONE Stop: 07/23/18 12:10 Last Admin: 07/23/18 07:25 Dose: 42 mls/hr Magnesium Sulfate () 4 gm in 100 mls @ 25 mls/hr IV X1 ONE Stop: 07/23/18 11:29 Last Admin: 07/23/18 07:47 Dose: 25 mls/hr Insulin Human Lispro (Humalog Kwikpen (Bkc)) 0 unit SC ACHS [facility]; Protocol Last Admin: 07/23/18 07:42 Dose: 1 u Latanoprost (Xalatan Opthalmic) 1 drop EACH EYE QHS [facility] Last Admin: 07/22/18 21:12 Dose: 1 drop Nutritional Formula (Sigifredo - [place] Flavor) 1 packet PO BIDCM [facility] Last Admin: 07/23/18 07:42 Dose: 1 packet Oxycodone HCl (Oxyir) 5 mg PO Q4H PRN PRN PRN Reason: SEVERE PAIN (6-01/27) Last Admin: 07/22/18 21:09 Dose: 5 mg Polyethylene Glycol (Miralax) 17 gm PO DAILY [facility] Last Admin: 07/22/18 09:50 Dose: 17 gm Sodium Chloride () 5 - 15 ml IV UD PRN PRN Reason: SALINE FLUSH Last Admin: 07/21/18 10:32 Dose: 10 ml Timolol Maleate (Timoptic) 5 drop EACH EYE BID [facility] Last Admin: 07/22/18 21:12 Dose: 5 drop Medical Necessity - Tobacco Use Smoking Status: Never smoker Assessment/Plan All Active Problems (Last Reviewed 07/21/18 @ 03:46 by Jaison Lopez MD) Hyperkalemia (Acute) Acute hyperkalemia (Acute) Acute kidney failure (Acute) Metabolic acidemia (Acute) Abscess, wrist (Acute) Septic olecranon bursitis of right elbow (Acute) Skin necrosis (Acute) Infected decubitus ulcer (Acute) Olecranon bursitis of right elbow (Acute) Severe sepsis (Acute) Complicated urinary tract infection (Acute) Hematuria (Acute) Pressure ulcer of left buttock, stage 2 (Resolved) 1. Acute hyperkalemia likely medication induced * resolved. now hypokelamic * nephro on board * 2. Hypokalemia: Likely due to Kayexalate administration. Potassium is 2.5 today. Will replace and monitor. * 3. Septic shock likely due to UTI * now off levophed * blood and urine cultures showed no growth * on IV meropenem and PO fluconazole * ID on board. * 3. Acute renal failure due to vancomycin toxicity * baseline Cr is ~ 0.3. Creatinine admission was 2.11. Cr today is 1.59 * Likely due to vancomycin toxicity. * Random vancomycin level was 43.2 on admission. Vancomycin on hold. * Nephrology consulted. * currently being hydrated with IVF * 4. Acute on chronic anemia: * s/p transfusion of 2 units of PRBCs * Hb today is 8.7 * will continue monitoring; keep Hb>7 * 5. Hypomagnesemia: Mg is 1.4 today. Will replace and monitor 6. Hypophosphatemia: Phosphorous is 1.5 today.Being replaced. Will monitor 7. Lactic acidosis: Lactic acid is 6.4 likely due to septic shock. Now weaned off levophed. 8. Sacral decubitus ulcers: Present on admission. States undetermined on account of wounds being dressed. Will monitor. 9. Hypoglycemia: * resolved. * 10. Diabetes mellitus: Metformin on hold on account of AK and hypoglycemia. ISS. Accuchecks ACHS 11. Hypertension/ hyperlipidemia: Blood pressure medications on hold on account of hypotension. On statin. 12. Chronic osteomyelitis: Has chronic osteomyelitis of sacral wounds. Acute on board. 13. Malnutrition: Albumin is only 1.7. This is likely due to patient's multiple comorbidities. Dietary on board 14. Nonanion gap metabolic acidosis: resolved. Received bicarb drip. nephro on board. Likely due to HIMANSHU DVT prophylaxis: lovenox SC 30mg daily. Code status: * Extensive discussion with patient today about her CODE STATUS as this seems to be conflicting messages from her family and patient. Patient clarifies that she would wish for treatment for her condition and would only one treatment stopped if she goes into cardiopulmonary arrest or she needs a ventilator. Patient counseled that this would like to be DNR CCA. She expresses understanding options. Patient also informed that since she is alert and oriented and able to understand what is going on, she would have to make her own decisions. Patient states that she does not want hospice at this time and does not want to go back to [facility] because she does not feel she was been taking care of them. She would want to go to another senior living upon discharge. * Face to face time: 18 mins. * Code Visit Inpatient E&M: 33058 [facility] H[facility] L3 Procedures: 65516 Advncd Care Plan 30 Min
[2018-07-23] MEDS: Enoxaparin 30 MG/0.3 ML Syringe SC (09:29)
[2018-07-23] MEDS: Timolol 0.5% 5ML OPTH.BTL 5 DRP EACH EYE ×2 (09:29→21:44)
[2018-07-23] MEDS: Polyethylene Glycol 3350 17 GM PACKET PO (09:29)
[2018-07-23] MEDS: Fluconazole 100 MG Tablet 200 MG PO (09:30)
[2018-07-23] MEDS: Metoprolol Tartrate 5 MG/5 ML Vial IV ×2 (09:36→16:13)
--- NOTE | 2018-07-23 10:24 | PCM.PN.ID ---
Patient Problems: Active and Suspected Problems (Last Reviewed 07/21/18 @ 03:46 by Jaison Lopez MD) Hyperkalemia (Acute) Acute hyperkalemia (Acute) Acute kidney failure (Acute) Metabolic acidemia (Acute) Subjective: Patient appears more responsive, comfortable on room air. Overall hemodynamically stable. Remains euthermic. Her microbiological data from this admission remains negative. On meropenem plus fluconazole at this time. Renal function slowly improving Objective: Responsive lungs some scattered rhonchi heart exam S1-S2 abdomen soft with a colostomy in place. Rea catheter is in place as well as a PICC in place. - Physical Exam Vital Signs Temp Pulse Resp BP Pulse Ox 97.4 F L 123 H 19 H 120/76 98 07/23/18 08:00 07/23/18 09:36 07/23/18 09:00 07/23/18 09:36 07/23/18 09:00 Oxygen Delivery Method Room Air Weight: 74.5 kg Body Mass Index (BMI) 26.9 Finger Stick Blood Glucose 154 Intake and Output for Last 24 Hours 07/21/18 07/22/18 07/23/18 23:59 23:59 23:59 Intake Total 4400.4 / 4400.4 4911.9 / 4911.9 832 / 832 Output Total 2100 / 2100 1400 / 1400 600 / 600 Balance 2300.4 / 2300.4 3511.9 / 3511.9 232 / 232 Microbiology Past 72 Hours 07/21/18 06:00 Blood Culture - Preliminary Blood Culture (Wb) - Right Wrist No growth in 48 hours. 07/21/18 06:00 Blood Culture - Preliminary Blood Culture (Wb) - Arm Left No growth in 48 hours. 07/21/18 05:00 Urine Culture - Preliminary Urine Catheter - Catheter Culture exhibits no growth. Laboratory Tests Past 24 Hrs 07/22/18 07/23/18 07/23/18 06:25 04:45 04:45 WBC 6.6 RBC 2.99 L Hgb 8.7 L Hct 27.8 L MCV 93.0 MCH 29.1 MCHC 31.3 L RDW 19.3 H RDW Differential 59.8 H Plt Count 188 MPV 8.4 Immature Gran % (Auto) 1.700 H Neut % (Auto) 68.1 Lymph % (Auto) 20.9 [place] % (Auto) 8.2 Eos % (Auto) 0.9 Baso % (Auto) 0.2 Absolute Neuts (auto) 4.5 Absolute Lymphs (auto) 1.38 Total Counted Not Reportable Sodium 143 Potassium 2.5 L* Chloride 101 Carbon Dioxide 31.0 BUN 69 H Creatinine 1.59 H Estim Creat Clear Calc 27.62 Est GFR (MDRD) Af Amer 41 L Est GFR (MDRD) Non-Af 34 L BUN/Creatinine Ratio 43.4 H Glucose 207 H Calcium 7.2 L Phosphorus 1.5 L Magnesium Albumin 1.7 L Blood Type B POSITIVE Antibody Screen NEGATIVE Crossmatch See Detail 07/23/18 04:45 WBC RBC Hgb Hct MCV MCH MCHC RDW RDW Differential Plt Count MPV Immature Gran % (Auto) Neut % (Auto) Lymph % (Auto) [place] % (Auto) Eos % (Auto) Baso % (Auto) Absolute Neuts (auto) Absolute Lymphs (auto) Total Counted Sodium Potassium Chloride Carbon Dioxide BUN Creatinine Estim Creat Clear Calc Est GFR (MDRD) Af Amer Est GFR (MDRD) Non-Af BUN/Creatinine Ratio Glucose Calcium Phosphorus Magnesium 1.4 L Albumin Blood Type Antibody Screen Crossmatch POC Glucose 07/23/18 07/22/18 07/22/18 07:40 20:59 17:09 POC Glucose 174 H 288 H 206 H 07/22/18 11:57 POC Glucose 156 H Medical Necessity - Tobacco Use Smoking Status: Never smoker Route of nutrition/ use of supplements: [] Nutritional Intake: [] IV Site: [] Rea Catheter: [] - Assessment/Plan Hypothermia with sepsis on admission. Complicated history with pressure ulcers and osteomyelitis. At this point I will continue empiric meropenem plus fluconazole and follow her clinical course and continue supportive care. I did talk to Sharri the wound care nurse with regards to the appearence of the wounds when she changed the wound vac
[2018-07-23] MEDS: oxyCODONE 5 MG Tablet PO ×2 (11:08→15:05)
[2018-07-23] MEDS: Gabapentin 100 MG Capsule PO ×2 (11:08→16:13)
--- NOTE | 2018-07-23 11:17 | CASEMGMT ---
Addendum entered by Debby Ivory 07/23/18 11:57: PAS/RR results faxed from [facility]. SW faxed PAS/RR and results to [facility]. JULIA Pat, [employer] Original Note: Addendum entered by Debby Ivory 07/23/18 11:51: SW spoke w/physician, pt will be here through the weekend. Also, SW inquired about pt having a specialized mattress--pt was on one at [facility]. Physician in agreement with this. SW called Cara at [facility] back, message left letting her know pt will be here through the weekend, and that pt would benefit from a specialized mattress. SW called pt's alternate POA, Maru Mayorga([phone]), message left letting he know [facility] can take pt at discharge and that pt will be here through the weekend. SW also let pt know that [facility] can take pt at discharge. Pt's POA due back from [place] on Thursday. ALEX called [facility], asked for the PAS/RR as it is not in the [facility] system. PAS/RR faxed but without results. ALEX called back and asked for the results to be faxed. Next week, ALEX will fax needed information to [facility] to request a skilled rather than intermediate level of care. SW to follow up Thursday. Transport form is on chart. JULIA Pat, [employer] Original Note: [facility] will be able to take pt at discharge. ALEX made Cara aware that pt has a wound vac, this is fine also, SW faxed the information to [facility]. SW will check w/physician regarding when pt may be ready for discharge. JULIA Pat, [employer]
[2018-07-23 14:11] LABS: Bedside Glucose 225 mg/dL (70-110)
[2018-07-23 14:27] LABS: Anion Gap 7 (5-15); BUN 67 mg/dL (7-18); BUN/Creat Ratio 45.9 RATIO (10-20); Calcium,Total 7.4 mg/dL (8.5-10.1); Chloride 100 mmol/L (98-107); Creatinine, Serum 1.46 mg/dL (0.55-1.02); EST Glomerular Filtration Rate 38 mL/min (>60); Est Glom Filt Rate - Afr Amer 46 mL/min (>60); Estimated Creatinine Clearance 30.08 ml/min; Glucose 296 mg/dL (74-106); Potassium 4.3 mmol/L (3.5-5.1); Sodium Level 139 mmol/L (136-145)
[2018-07-23] MEDS: 0.9% NaCl Peripheral Flush Adult/Peds IV ×2 (15:06→21:46)
[2018-07-23] MEDS: Furosemide 20 MG/2 ML VIAL IV (15:06)
[2018-07-23 16:30] LABS: Bedside Glucose 279 mg/dL (70-110)
[2018-07-23] MEDS: Metoprolol Tartrate 25 MG Tablet PO (21:44)
[2018-07-23] MEDS: Latanoprost 0.005% 1 Bottle 1 DRP EACH EYE (21:45)
[2018-07-23 22:11] LABS: Bedside Glucose 233 mg/dL (70-110)
[2018-07-24] VITALS (13 sets, daily range): BP systolic 107–143; BP diastolic 57–79; PULSE 96–119; RESP 18; TEMP 36.6–36.8; O2SAT 96–98
[2018-07-24] MEDS: 0.9% NaCl Peripheral Flush Adult/Peds IV ×5 (04:55→13:19)
[2018-07-24 05:28] LABS: Absolute Lymphocyte Count 1.12 X10^3/ul (0.83-4.51); Basophil# 0.01 X10^3/uL; Basophil% 0.1 % (0-1); Eosinophil# 0.43 X10^3/uL; Hematocrit 30.5 % (37-47); Hemoglobin 9.6 g/dl (12.0-15.0); Lymphocyte # 1.12 X10^3/ul (4.0); Lymphocyte % 15.6 % (19-41); Mean Corp Hgb Conc 31.5 g/gl (32-36); Mean Corpuscular Hgb 29.5 pg (27.0-32.0); Mean Corpuscular Volume 93.8 fL (81-99); Mean Platelet Vol. 8.7 fl (6.2-12.0); Monocyte# 0.48 X10^3/uL; Monocyte% 6.7 % (0-10); Neutrophil # 4.99 X10^3/uL (2.7-7.7); Neutrophil % 69.8 % (47-70); Platelet Count 182 K/mm3 (150-450); RBC Distribution Width CV 19.5 % (11.6-14.6); RBC Distribution Width SD 63.3 fl (35.1-43.9); Red Blood Count 3.25 M/mm3 (4.2-5.4); White Blood Count 7.2 K/mm3 (4.4-11.0)
[2018-07-24 05:30] LABS: Albumin, Serum 1.5 g/dL (3.2-5.0); BUN 66 mg/dL (7-18); BUN/Creat Ratio 50.4 RATIO (10-20); Calcium,Total 7.4 mg/dL (8.5-10.1); Chloride 101 mmol/L (98-107); Creatinine, Serum 1.31 mg/dL (0.55-1.02); EST Glomerular Filtration Rate 43 mL/min (>60); Est Glom Filt Rate - Afr Amer 52 mL/min (>60); Estimated Creatinine Clearance 33.53 ml/min; Glucose 190 mg/dL (74-106); Magnesium 2.2 mg/dL (1.6-2.6); POSITIVE COUNT NO; POSITIVE DIFFERENTIAL NO; POSITIVE MORPHOLOGY NO; Phosphorus 2.6 mg/dL (2.5-4.9); Potassium 3.5 mmol/L (3.5-5.1); Sodium Level 141 mmol/L (136-145)
[2018-07-24] MEDS: oxyCODONE 5 MG Tablet PO ×2 (05:40→13:26)
[2018-07-24 06:50] LABS: Bedside Glucose 174 mg/dL (70-110)
--- NOTE | 2018-07-24 08:18 | PN.RENAL_ITS ---
Patient Problems: Active and Suspected Problems (Last Reviewed 07/21/18 @ 03:46 by Jaison Lopez MD) Hyperkalemia (Acute) Acute hyperkalemia (Acute) Acute kidney failure (Acute) Metabolic acidemia (Acute) Subjective: Following for HIMANSHU. Pt denies CP, SOB or nausea. No diarrhea. - Physical Exam General: Alert, Oriented x3 HEENT: Atraumatic Oral: Moist Mucosa Neck: Supple Lungs: Clear to auscultation - anteriorly Cardiovascular: Normal S1, Normal S2, No rub noted Abdomen: Bowel Sounds Present, Soft, Non Tender Extremities: Edema - 1+ LE, 2+ UE Vital Signs Temp Pulse Resp BP Pulse Ox 98.1 F 99 18 116/65 96 07/24/18 03:30 07/24/18 06:52 07/24/18 03:30 07/24/18 03:30 07/24/18 03:30 Oxygen Delivery Method Room Air Weight: 74.2 kg Body Mass Index (BMI) 26.9 Finger Stick Blood Glucose 154 Intake and Output for Last 24 Hours 07/22/18 07/23/18 07/24/18 23:59 23:59 23:59 Intake Total 4911.9 / 4911.9 1639 / 1639 158 / 158 Output Total 1400 / 1400 2850 / 2850 350 / 350 Balance 3511.9 / 3511.9 -1211 / -1211 -192 / -192 Microbiology Past 72 Hours 07/21/18 05:00 Urine Culture - Preliminary Urine Catheter - Catheter Yeast Like Organism 07/21/18 06:00 Blood Culture - Preliminary Blood Culture (Wb) - Right Wrist No growth in 48 hours. 07/21/18 06:00 Blood Culture - Preliminary Blood Culture (Wb) - Arm Left No growth in 48 hours. Laboratory Tests Past 24 Hrs 07/23/18 07/24/18 07/24/18 13:55 04:55 04:55 WBC 7.2 RBC 3.25 L Hgb 9.6 L Hct 30.5 L MCV 93.8 MCH 29.5 MCHC 31.5 L RDW 19.5 H RDW Differential 63.3 H Plt Count 182 MPV 8.7 Immature Gran % (Auto) 1.800 H Neut % (Auto) 69.8 Lymph % (Auto) 15.6 L [place] % (Auto) 6.7 Eos % (Auto) 6.0 H Baso % (Auto) 0.1 Absolute Neuts (auto) 5.0 Absolute Lymphs (auto) 1.12 Total Counted Not Reportable Sodium 139 141 Potassium 4.3 3.5 Chloride 100 101 Carbon Dioxide 32.0 31.0 Anion Gap 7 BUN 67 H 66 H Creatinine 1.46 H 1.31 H Estim Creat Clear Calc 30.08 33.53 Est GFR (MDRD) Af Amer 46 L 52 L Est GFR (MDRD) Non-Af 38 L 43 L BUN/Creatinine Ratio 45.9 H 50.4 H Glucose 296 H 190 H Calcium 7.4 L 7.4 L Phosphorus 2.6 Magnesium 2.2 Albumin 1.5 L POC Glucose 07/24/18 07/23/18 07/23/18 06:41 21:31 16:12 POC Glucose 174 H 233 H 279 H 07/23/18 11:07 POC Glucose 225 H Medical Necessity - Tobacco Use Smoking Status: Never smoker Assessment/Plan All Active Problems (Last Reviewed 07/21/18 @ 03:46 by Jaison Lopez MD) Hyperkalemia (Acute) Acute hyperkalemia (Acute) Acute kidney failure (Acute) Metabolic acidemia (Acute) Abscess, wrist (Acute) Septic olecranon bursitis of right elbow (Acute) Skin necrosis (Acute) Infected decubitus ulcer (Acute) Olecranon bursitis of right elbow (Acute) Severe sepsis (Acute) Complicated urinary tract infection (Acute) Hematuria (Acute) Pressure ulcer of left buttock, stage 2 (Resolved) 1- HIMANSHU is from ATN induced by vancomycin toxicity. Cr peaked at 2.11 mg/dl on 07/20/18. Baseline Cr is 0.4 mg/dl Kidney function is improving daily. Creatinine down to 1.31 mg/dL today No indication for HD Keep MAP >65 Continue holding losartan for now. Recheck renal function in am. 2- hyperkalemia. was from HIMANSHU and acidosis Resolved with medical treatment and kidney function improvement. K peaked at 9.8. K is 3.5 today. 3-hypomagnesemia. Magnesium level is 1.4. Patient received magnesium sulfate 4 g IV on 07/23/18. Mg is 2.2 today. recheck again in am. 4-hypophosphatemia. Patient received K-Phos 30 mmol IV on 07/23/18. Phos is better today. Recheck in am. 5- Metabolic acidosis. From lactic acidosis from metformin and acute kidney injury. Lowest HCO3 level was 12. Bicarb level stable at 31. Bicarb gtt stopped 07/23/18.
[2018-07-24] MEDS: Insulin Lispro 100 UNIT/ML INSULN.PEN SC ×4 (08:38→21:05)
[2018-07-24] MEDS: Polyethylene Glycol 3350 17 GM PACKET PO (08:39)
[2018-07-24] MEDS: Metoprolol Tartrate 25 MG Tablet PO ×2 (08:39→21:06)
[2018-07-24] MEDS: Fluconazole 100 MG Tablet 200 MG PO (08:40)
[2018-07-24] MEDS: Timolol 0.5% 5ML OPTH.BTL 5 DRP EACH EYE ×2 (08:41→21:07)
--- NOTE | 2018-07-24 08:43 | PCM.PN.INT ---
Subjective: Patient transferred out of the intensive care unit yesterday. No issues were reported overnight. Patient states she feels subjectively improved, but I still feel puffy. General: Alert, Oriented x3, Cooperative, No apparent distress, - - Anasarca. HEENT: Atraumatic, PERRLA, EOMI, Normocephalic, - - Slight scleral injection. Periorbital edema improved. Oral: Moist Mucosa, No Gingival or Mucosal Lesions/ Ulcerations Neck: Supple, No Nodes, Trachea Midline, JVD, Right Lungs: No rhonchi, No wheeze, No rales, Diminished Cardiovascular: Regular rate, Regular Rhythm, Normal S1, Normal S2, No murmurs, No rub noted, No Gallop Abdomen: Bowel Sounds Present, Soft, Non Tender, Non-Distended, Obese Extremities: No cyanosis, Clubbing, Edema Skin: - - No significant change compared to previous Musculoskeletal: No Tenderness to Palpation of Joints or Extremities Lymphatic: No Cervical, Supraclavicular, or Inguinal Adenopathy Neurological: Cranial nerves II-XII grossly intact, Neuro grossly intact Psych/Mental Status: Alert and oriented to time, place, person, mood and affect Vital Signs Temp Pulse Resp BP Pulse Ox 36.7 C 102 H 18 107/60 96 07/24/18 08:34 07/24/18 08:39 07/24/18 08:34 07/24/18 08:39 07/24/18 08:34 Oxygen Delivery Method Room Air Weight: 74.2 kg Body Mass Index (BMI) 26.9 Finger Stick Blood Glucose 154 Intake and Output for Last 24 Hours 07/22/18 07/23/18 07/24/18 23:59 23:59 23:59 Intake Total 4911.9 / 4911.9 1639 / 1639 158 / 158 Output Total 1400 / 1400 2850 / 2850 350 / 350 Balance 3511.9 / 3511.9 -1211 / -1211 -192 / -192 Labs (Last 48 Hours) 07/22/18 07/22/18 07/22/18 06:25 08:40 11:57 WBC RBC Hgb Hct MCV MCH MCHC RDW RDW Differential Plt Count MPV Immature Gran % (Auto) Neut % (Auto) Lymph % (Auto) [place] % (Auto) Eos % (Auto) Baso % (Auto) Absolute Neuts (auto) Absolute Lymphs (auto) Total Counted Sodium Potassium Chloride Carbon Dioxide Anion Gap BUN Creatinine Estim Creat Clear Calc Est GFR (MDRD) Af Amer Est GFR (MDRD) Non-Af BUN/Creatinine Ratio Glucose Calcium Phosphorus Magnesium Albumin POC Glucose 100 156 H Blood Type B POSITIVE Antibody Screen NEGATIVE Crossmatch See Detail 07/22/18 07/22/18 07/23/18 17:09 20:59 04:45 WBC 6.6 RBC 2.99 L Hgb 8.7 L Hct 27.8 L MCV 93.0 MCH 29.1 MCHC 31.3 L RDW 19.3 H RDW Differential 59.8 H Plt Count 188 MPV 8.4 Immature Gran % (Auto) 1.700 H Neut % (Auto) 68.1 Lymph % (Auto) 20.9 [place] % (Auto) 8.2 Eos % (Auto) 0.9 Baso % (Auto) 0.2 Absolute Neuts (auto) 4.5 Absolute Lymphs (auto) 1.38 Total Counted Not Reportable Sodium Potassium Chloride Carbon Dioxide Anion Gap BUN Creatinine Estim Creat Clear Calc Est GFR (MDRD) Af Amer Est GFR (MDRD) Non-Af BUN/Creatinine Ratio Glucose Calcium Phosphorus Magnesium Albumin POC Glucose 206 H 288 H Blood Type Antibody Screen Crossmatch 07/23/18 07/23/18 07/23/18 04:45 04:45 07:40 WBC RBC Hgb Hct MCV MCH MCHC RDW RDW Differential Plt Count MPV Immature Gran % (Auto) Neut % (Auto) Lymph % (Auto) [place] % (Auto) Eos % (Auto) Baso % (Auto) Absolute Neuts (auto) Absolute Lymphs (auto) Total Counted Sodium 143 Potassium 2.5 L* Chloride 101 Carbon Dioxide 31.0 Anion Gap BUN 69 H Creatinine 1.59 H Estim Creat Clear Calc 27.62 Est GFR (MDRD) Af Amer 41 L Est GFR (MDRD) Non-Af 34 L BUN/Creatinine Ratio 43.4 H Glucose 207 H Calcium 7.2 L Phosphorus 1.5 L Magnesium 1.4 L Albumin 1.7 L POC Glucose 174 H Blood Type Antibody Screen Crossmatch 07/23/18 07/23/18 07/23/18 11:07 13:55 16:12 WBC RBC Hgb Hct MCV MCH MCHC RDW RDW Differential Plt Count MPV Immature Gran % (Auto) Neut % (Auto) Lymph % (Auto) [place] % (Auto) Eos % (Auto) Baso % (Auto) Absolute Neuts (auto) Absolute Lymphs (auto) Total Counted Sodium 139 Potassium 4.3 Chloride 100 Carbon Dioxide 32.0 Anion Gap 7 BUN 67 H Creatinine 1.46 H Estim Creat Clear Calc 30.08 Est GFR (MDRD) Af Amer 46 L Est GFR (MDRD) Non-Af 38 L BUN/Creatinine Ratio 45.9 H Glucose 296 H Calcium 7.4 L Phosphorus Magnesium Albumin POC Glucose 225 H 279 H Blood Type Antibody Screen Crossmatch 07/23/18 07/24/18 07/24/18 21:31 04:55 04:55 WBC 7.2 RBC 3.25 L Hgb 9.6 L Hct 30.5 L MCV 93.8 MCH 29.5 MCHC 31.5 L RDW 19.5 H RDW Differential 63.3 H Plt Count 182 MPV 8.7 Immature Gran % (Auto) 1.800 H Neut % (Auto) 69.8 Lymph % (Auto) 15.6 L [place] % (Auto) 6.7 Eos % (Auto) 6.0 H Baso % (Auto) 0.1 Absolute Neuts (auto) 5.0 Absolute Lymphs (auto) 1.12 Total Counted Not Reportable Sodium 141 Potassium 3.5 Chloride 101 Carbon Dioxide 31.0 Anion Gap BUN 66 H Creatinine 1.31 H Estim Creat Clear Calc 33.53 Est GFR (MDRD) Af Amer 52 L Est GFR (MDRD) Non-Af 43 L BUN/Creatinine Ratio 50.4 H Glucose 190 H Calcium 7.4 L Phosphorus 2.6 Magnesium 2.2 Albumin 1.5 L POC Glucose 233 H Blood Type Antibody Screen Crossmatch 07/24/18 06:41 WBC RBC Hgb Hct MCV MCH MCHC RDW RDW Differential Plt Count MPV Immature Gran % (Auto) Neut % (Auto) Lymph % (Auto) [place] % (Auto) Eos % (Auto) Baso % (Auto) Absolute Neuts (auto) Absolute Lymphs (auto) Total Counted Sodium Potassium Chloride Carbon Dioxide Anion Gap BUN Creatinine Estim Creat Clear Calc Est GFR (MDRD) Af Amer Est GFR (MDRD) Non-Af BUN/Creatinine Ratio Glucose Calcium Phosphorus Magnesium Albumin POC Glucose 174 H Blood Type Antibody Screen Crossmatch Microbiology 07/21/18 05:00 Urine Catheter - Catheter Urine Culture - Preliminary Yeast Like Organism 07/21/18 06:00 Blood Culture (Wb) - Right Wrist Blood Culture - Preliminary No growth in 48 hours. 07/21/18 06:00 Blood Culture (Wb) - Arm Left Blood Culture - Preliminary No growth in 48 hours. Medical Necessity - Tobacco Use Smoking Status: Never smoker Assessment/Plan All Active Problems (Last Reviewed 07/21/18 @ 03:46 by Jaison Lopez MD) Hyperkalemia (Acute) Acute hyperkalemia (Acute) Acute kidney failure (Acute) Metabolic acidemia (Acute) Abscess, wrist (Acute) Septic olecranon bursitis of right elbow (Acute) Skin necrosis (Acute) Infected decubitus ulcer (Acute) Olecranon bursitis of right elbow (Acute) Severe sepsis (Acute) Complicated urinary tract infection (Acute) Hematuria (Acute) Pressure ulcer of left buttock, stage 2 (Resolved) RECOMMENDATIONS: 1. Continue increased diuretic therapy for 2-3 more days 2. Magnesium and potassium supplementation as indicated 3. Hemodynamically stable on room air. Will sign off from a critical care perspective IMPRESSIONS: 1. Septic shock secondary to probable UTI Patient required initiation of pressor therapy previously. Patient with no significant drop in hemoglobin and an appropriate response to blood transfusion. Diuretic therapy has been reinitiated and is helping with anasarca. Patient is on increased dose and this can be continued for 2-3 days. Infectious disease following for antibiotics. Otherwise, patient is hemodynamically stable on room air. Will sign off from a critical care perspective. 2. Acute renal failure secondary to probable vancomycin toxicity/hyperkalemia Patient with significant worsening in renal function as compared to June with a baseline of 0.3-0.4. Patient's vancomycin level is significantly elevated and may have induced renal failure. Patient is currently off of pressor therapy and creatinine continues to improve. Unfortunately, patient had significant hypokalemia, which is likely secondary to repeated doses of Kayexalate. Potassium and magnesium were repleted yesterday. 3. Chronic osteomyelitis Continue with wound care for now. Poor long-term prognosis. 4. Hypoglycemia Resolved. Currently on a diet. Unclear if this is secondary to septic shock versus exogenous insulin given for hyperkalemia. Will check blood sugars closely. 5. Multiple decubitus ulcers/spinal stenosis/deconditioning/hyperlipidemia/hypertension/diabetes mellitus/anemia of chronic disease Complicates care, management, recovery and prognosis. Patient reportedly did not want to be DNR Comfort Care while [place] was [place] of [place]. This will need to be clarified. Continue to monitor blood sugars closely as patient has received insulin secondary to hyperkalemia. Code Visit Inpatient E&M: 65297 Subs Hosp L2
[2018-07-24] MEDS: Gabapentin 100 MG Capsule PO ×3 (08:49→16:23)
[2018-07-24] MEDS: Furosemide 20 MG/2 ML VIAL IV (08:49)
[2018-07-24] MEDS: Enoxaparin 30 MG/0.3 ML Syringe SC (08:49)
[2018-07-24 11:51] LABS: Bedside Glucose 253 mg/dL (70-110)
--- NOTE | 2018-07-24 12:47 | PN_ITS ---
Patient Problems: Active and Suspected Problems (Last Reviewed 07/21/18 @ 03:46 by Jaison Lopez MD) Hyperkalemia (Acute) Acute hyperkalemia (Acute) Acute kidney failure (Acute) Metabolic acidemia (Acute) Subjective: Patient has colostomy functioning good. Bedbound. Has sacral decubitus. Discussed with the brother on bedside. No fever. Vitals/I&O's: Vital Signs Temp Pulse Resp BP Pulse Ox 98.0 F 96 18 107/60 96 07/24/18 08:34 07/24/18 11:00 07/24/18 08:34 07/24/18 08:39 07/24/18 08:34 Oxygen Delivery Method Room Air Weight: 163 lb 9.328 oz Body Mass Index (BMI) 26.9 Finger Stick Blood Glucose 154 Intake and Output for Last 24 Hours 07/22/18 07/23/18 07/24/18 23:59 23:59 23:59 Intake Total 4911.9 / 4911.9 1639 / 1639 623 / 623 Output Total 1400 / 1400 2850 / 2850 1500 / 1500 Balance 3511.9 / 3511.9 -1211 / -1211 -877 / -877 General: Alert, Oriented x3, Cooperative HEENT: Atraumatic, PERRLA, EOMI, Normocephalic Neck: Supple, No JVD, Negative Carotid Bruits Lungs: Clear to auscultation, No rhonchi, No wheeze, No rales, Diminished Cardiovascular: Regular rate, Normal S1, Normal S2, No murmurs Abdomen: Bowel Sounds Present, Soft, Non Tender, - - Colostomy Extremities: Capillary Refill Less than 3 Seconds, Edema Skin: No rashes, No breakdown Musculoskeletal: No Tenderness to Palpation of Joints or Extremities, Arthritic Changes Lymphatic: No Cervical, Supraclavicular, or Inguinal Adenopathy Neurological: Cranial nerves II-XII grossly intact Psych/Mental Status: Normal Affect, Appropriate Microbiology Past 72 Hours 07/21/18 05:00 Urine Catheter - Catheter Urine Culture - Preliminary Yeast Like Organism 07/21/18 06:00 Blood Culture (Wb) - Right Wrist Blood Culture - Preliminary No growth in 48 hours. 07/21/18 06:00 Blood Culture (Wb) - Arm Left Blood Culture - Preliminary No growth in 48 hours. Laboratory Results 07/23/18 11:07: POC Glucose 225 H 07/23/18 13:55: Sodium 139, Potassium 4.3, Chloride 100, Carbon Dioxide 32.0, Anion Gap 7, BUN 67 H, Creatinine 1.46 H, Estim Creat Clear Calc 30.08, Est GFR (MDRD) Af Amer 46 L, Est GFR (MDRD) Non-Af 38 L, BUN/Creatinine Ratio 45.9 H, Glucose 296 H, Calcium 7.4 L 07/23/18 16:12: POC Glucose 279 H 07/23/18 21:31: POC Glucose 233 H 07/24/18 04:55: WBC 7.2, RBC 3.25 L, Hgb 9.6 L, Hct 30.5 L, MCV 93.8, MCH 29.5, MCHC 31.5 L, RDW 19.5 H, RDW Differential 63.3 H, Plt Count 182, MPV 8.7, Immature Gran % (Auto) 1.800 H, Neut % (Auto) 69.8, Lymph % (Auto) 15.6 L, [place] % (Auto) 6.7, Eos % (Auto) 6.0 H, Baso % (Auto) 0.1, Absolute Neuts (auto) 5.0, Absolute Lymphs (auto) 1.12, Total Counted Not Reportable 07/24/18 04:55: Sodium 141, Potassium 3.5, Chloride 101, Carbon Dioxide 31.0, BUN 66 H, Creatinine 1.31 H, Estim Creat Clear Calc 33.53, Est GFR (MDRD) Af Amer 52 L, Est GFR (MDRD) Non-Af 43 L, BUN/Creatinine Ratio 50.4 H, Glucose 190 H, Calcium 7.4 L, Phosphorus 2.6, Magnesium 2.2, Albumin 1.5 L 07/24/18 06:41: POC Glucose 174 H 07/24/18 10:59: POC Glucose 253 H Current Medications Dextrose (D50w Syringe) 0 gm IV X1 PRN; Protocol PRN Reason: Hypoglycemia Enoxaparin Sodium (Lovenox) 30 mg SC DAILY@1000 KEKE Last Admin: 07/24/18 08:49 Dose: 30 mg Fluconazole (Diflucan) 200 mg PO DAILY KEKE Stop: 07/29/18 10:01 Last Admin: 07/24/18 08:40 Dose: 200 mg Furosemide (Lasix) 20 mg IV DAILY [facility] Last Admin: 07/24/18 08:49 Dose: 20 mg Gabapentin (Neurontin) 100 mg PO TIDCM [facility] Last Admin: 07/24/18 11:06 Dose: 100 mg Glucagon () 1 mg IM .X1 PRN PRN Reason: Hypoglycemia Sodium Chloride () 250 mls @ 15 mls/hr IV .[id number] PRN PRN Reason: SALINE FLUSH Last Admin: 07/22/18 12:04 Dose: 15 mls/hr Meropenem 500 mg/ Sodium (Chloride) 60 mls @ 100 mls/hr IV Q8 [facility] Stop: 07/29/18 22:35 Last Admin: 07/24/18 05:13 Dose: 100 mls/hr Insulin Human Lispro (Humalog Kwikpen (Bkc)) 0 unit SC ACHS [facility]; Protocol Last Admin: 07/24/18 11:02 Dose: 2 u Latanoprost (Xalatan Opthalmic) 1 drop EACH EYE QHS [facility] Last Admin: 07/23/18 21:45 Dose: 1 drop Metoprolol Tartrate (Lopressor (Beta Abraham)) 25 mg PO BID [facility] Last Admin: 07/24/18 08:39 Dose: 25 mg Nutritional Formula (Sigifredo - Dewitt Flavor) 1 packet PO BIDCM [facility] Last Admin: 07/24/18 08:49 Dose: 1 packet Oxycodone HCl (Oxyir) 5 mg PO Q4H PRN PRN PRN Reason: SEVERE PAIN (6-10/10) Last Admin: 07/24/18 05:40 Dose: 5 mg Polyethylene Glycol (Miralax) 17 gm PO DAILY [facility] Last Admin: 07/24/18 08:39 Dose: 17 gm Sodium Chloride () 5 - 15 ml IV UD PRN PRN Reason: SALINE FLUSH Last Admin: 07/24/18 08:51 Dose: 10 ml Timolol Maleate (Timoptic) 5 drop EACH EYE BID [facility] Last Admin: 07/24/18 08:41 Dose: 5 drop Medical Necessity - Tobacco Use Smoking Status: Never smoker Assessment/Plan All Active Problems (Last Reviewed 07/21/18 @ 03:46 by Jaison Lopez MD) Hyperkalemia (Acute) Acute hyperkalemia (Acute) Acute kidney failure (Acute) Metabolic acidemia (Acute) Abscess, wrist (Acute) Septic olecranon bursitis of right elbow (Acute) Skin necrosis (Acute) Infected decubitus ulcer (Acute) Olecranon bursitis of right elbow (Acute) Severe sepsis (Acute) Complicated urinary tract infection (Acute) Hematuria (Acute) Pressure ulcer of left buttock, stage 2 (Resolved) This 68-year-old female with history of chronic osteomyelitis of left ischial area, diabetes mellitus type 2, decubitus ulcer was admitted from [facility] because of hyperkalemia, potassium 9.1 and acute kidney injury. Patient was given hyperkalemic cocktail and admitted in ICU. She was found in septic shock secondary to UTI. 1. Acute hyperkalemia likely medication induced * resolved. now hypokelamic * Underground Mine Machinery Mechanic is replacing potassium cautiously. 3. Septic shock, most likely due to UTI. * off levophed. Patient was transferred to PCU * blood and urine cultures showed no growth * on IV meropenem and PO fluconazole * ID on board. 3. Acute kidney injury due to vancomycin toxicity * baseline Cr is ~ 0.3. Creatinine admission was 2.11. Cr today is 1.59 * Likely due to vancomycin toxicity. * Random vancomycin level was 43.2 on admission. Vancomycin on hold. * Patient was seen by interpersonal communications professor * currently being hydrated with IVF 4. Acute on chronic anemia: * s/p transfusion of 2 units of PRBCs * Hb improved. * continue monitoring; keep Hb>7 5. Hypomagnesemia: Magnesium 1.4. Replaced and corrected 6. Hypophosphatemia: Phosphorous is 1.5. Replaced and corrected. 7. Lactic acidosis: Lactic acid is 6.4 likely due to septic shock. Now weaned off levophed. 8. Sacral decubitus ulcers: Present on admission. States undetermined on account of wounds being dressed. monitor. 9. Hypoglycemia: * resolved. 10. Diabetes mellitus: Metformin on hold on account of [place] and hypoglycemia. ISS. Accuchecks ACHS 11. Hypertension/ hyperlipidemia: Blood pressure medications on hold on account of hypotension. On statin. 12. Chronic osteomyelitis: Has chronic osteomyelitis of sacral wounds. Acute on board. 13. Dietitian note reviewed. Assessment shows no evidence of malnutrition. 14. Nonanion gap metabolic acidosis: resolved. Received bicarb drip. nephro on board. Likely due to HIMANSHU DVT prophylaxis: lovenox SC 30mg daily. CODE STATUS DNR CC arrest. Code Visit Inpatient E&M: 60675 Subs Hosp L3
[2018-07-24 21:06] LABS: Bedside Glucose 324 mg/dL (70-110)
[2018-07-24] MEDS: Latanoprost 0.005% 1 Bottle 1 DRP EACH EYE (21:07)
[2018-07-24 21:21] LABS: Bedside Glucose 356 mg/dL (70-110)
[2018-07-25] VITALS (11 sets, daily range): BP systolic 107–127; BP diastolic 54–63; PULSE 84–110; RESP 16–18; TEMP 36.8–37.2; O2SAT 97–100
[2018-07-25] MEDS: 0.9% NaCl Peripheral Flush Adult/Peds IV ×6 (04:45→22:54)
[2018-07-25 05:34] LABS: Albumin, Serum 1.5 g/dL (3.2-5.0); BUN 65 mg/dL (7-18); BUN/Creat Ratio 52.8 RATIO (10-20); Calcium,Total 7.6 mg/dL (8.5-10.1); Chloride 101 mmol/L (98-107); Creatinine, Serum 1.23 mg/dL (0.55-1.02); EST Glomerular Filtration Rate 46 mL/min (>60); Est Glom Filt Rate - Afr Amer 56 mL/min (>60); Estimated Creatinine Clearance 35.71 ml/min; Glucose 207 mg/dL (74-106); Magnesium 1.8 mg/dL (1.6-2.6); Potassium 3.4 mmol/L (3.5-5.1); Sodium Level 141 mmol/L (136-145)
[2018-07-25 07:00] LABS: Bedside Glucose 191 mg/dL (70-110)
[2018-07-25] MEDS: Gabapentin 100 MG Capsule PO ×3 (07:58→16:16)
[2018-07-25] MEDS: Insulin Lispro 100 UNIT/ML INSULN.PEN SC ×4 (07:58→22:35)
--- NOTE | 2018-07-25 08:37 | PCM.PN.REN ---
Patient Problems: Active and Suspected Problems (Last Reviewed 07/21/18 @ 03:46 by Jaison Lopez MD) Hyperkalemia (Acute) Acute hyperkalemia (Acute) Acute kidney failure (Acute) Metabolic acidemia (Acute) Subjective: Following for HIMANSHU. Pt denies CP, SOB or nausea. No diarrhea per RN. Still with anasarca. - Physical Exam General: Alert, Oriented x3 HEENT: Atraumatic, Normocephalic Oral: Moist Mucosa Neck: Supple Lungs: Clear to auscultation - anteriorly Cardiovascular: Normal S1, Normal S2, No murmurs Abdomen: Bowel Sounds Present, Soft, Non Tender Extremities: Edema - 2+ UE/trace LE Vital Signs Temp Pulse Resp BP Pulse Ox 98.2 F 90 16 115/63 97 07/25/18 03:00 07/25/18 07:03 07/25/18 03:00 07/25/18 03:00 07/25/18 03:00 Oxygen Delivery Method Room Air Weight: 75.7 kg Body Mass Index (BMI) 26.9 Finger Stick Blood Glucose 154 Intake and Output for Last 24 Hours 07/23/18 07/24/18 07/25/18 23:59 23:59 23:59 Intake Total 1639 / 1639 1205 / 1205 Output Total 2850 / 2850 3625 / 3625 300 / 300 Balance -1211 / -1211 -2420 / -2420 -300 / -300 Microbiology Past 72 Hours 07/21/18 05:00 Urine Culture - Final Urine Catheter - Catheter Presumptive C albicans 07/21/18 06:00 Blood Culture - Preliminary Blood Culture (Wb) - Right Wrist No growth in 48 hours. 07/21/18 06:00 Blood Culture - Preliminary Blood Culture (Wb) - Arm Left No growth in 48 hours. Laboratory Tests Past 24 Hrs 07/25/18 04:50 Sodium 141 Potassium 3.4 L Chloride 101 Carbon Dioxide 31.0 BUN 65 H Creatinine 1.23 H Estim Creat Clear Calc 35.71 Est GFR (MDRD) Af Amer 56 L Est GFR (MDRD) Non-Af 46 L BUN/Creatinine Ratio 52.8 H Glucose 207 H Calcium 7.6 L Phosphorus 2.0 L Magnesium 1.8 Albumin 1.5 L POC Glucose 07/25/18 07/24/18 07/24/18 06:49 20:57 16:22 POC Glucose 191 H 356 H 324 H 07/24/18 10:59 POC Glucose 253 H Medical Necessity - Tobacco Use Smoking Status: Never smoker Assessment/Plan All Active Problems (Last Reviewed 07/21/18 @ 03:46 by Jaison Lopez MD) Hyperkalemia (Acute) Acute hyperkalemia (Acute) Acute kidney failure (Acute) Metabolic acidemia (Acute) Abscess, wrist (Acute) Septic olecranon bursitis of right elbow (Acute) Skin necrosis (Acute) Infected decubitus ulcer (Acute) Olecranon bursitis of right elbow (Acute) Severe sepsis (Acute) Complicated urinary tract infection (Acute) Hematuria (Acute) Pressure ulcer of left buttock, stage 2 (Resolved) 1- HIMANSHU is from ATN induced by vancomycin toxicity. Cr peaked at 2.11 mg/dl on 07/20/18. Baseline Cr is 0.4 mg/dl Kidney function is improving daily. Creatinine down to 1.31->1.23 mg/dL in the past 24 hrs. No indication for HD Keep MAP >65 Continue holding losartan for now. Recheck renal function in am. 2- hypokalemia. Likely from diuresis. Will schedule KCl 20 mEq BID since she still requires diuretic. 3-hypomagnesemia. Magnesium level is stable at 1.8. Patient received magnesium sulfate 4 g IV on 07/23/18. Recheck again in am since she is on diuretic. 4-hypophosphatemia. Patient received K-Phos 30 mmol IV on 07/23/18. Phos is 2.0 today. Neutraphos x 2 days. Recheck in am. 5- Metabolic acidosis. From lactic acidosis from metformin and acute kidney injury. Lowest HCO3 level was 12. Bicarb level stable at 31. Bicarb gtt stopped 07/23/18.
[2018-07-25] MEDS: Furosemide 20 MG/2 ML VIAL IV (09:00)
[2018-07-25] MEDS: Metoprolol Tartrate 25 MG Tablet PO ×2 (09:01→22:37)
[2018-07-25] MEDS: Enoxaparin 30 MG/0.3 ML Syringe SC (09:01)
[2018-07-25] MEDS: Fluconazole 100 MG Tablet 200 MG PO (09:01)
[2018-07-25] MEDS: Timolol 0.5% 5ML OPTH.BTL 5 DRP EACH EYE ×2 (09:02→22:39)
[2018-07-25] MEDS: oxyCODONE 5 MG Tablet PO (09:14)
[2018-07-25] MEDS: Na Biphos/Potassium Phosphate PACKET 1 PACKET PO ×2 (11:11→22:38)
[2018-07-25 11:30] LABS: Bedside Glucose 240 mg/dL (70-110)
--- NOTE | 2018-07-25 14:40 | PCM.PN.HOSP ---
Patient Problems: Active and Suspected Problems (Last Reviewed 07/21/18 @ 03:46 by Jaison Lopez MD) Hyperkalemia (Acute) Acute hyperkalemia (Acute) Acute kidney failure (Acute) Metabolic acidemia (Acute) Subjective: Patient complain of left arm pain on medial aspect on course of PICC line. There is no erythema or induration. Venous ultrasound ordered. No fever or chills. Patient is on IV meropenem. Vitals/I&O's: Vital Signs Temp Pulse Resp BP Pulse Ox 98.5 F 84 16 110/63 98 07/25/18 09:00 07/25/18 11:00 07/25/18 09:00 07/25/18 09:01 07/25/18 09:00 Oxygen Delivery Method Room Air Weight: 166 lb 14.239 oz Body Mass Index (BMI) 26.9 Finger Stick Blood Glucose 154 Intake and Output for Last 24 Hours 07/23/18 07/24/18 07/25/18 23:59 23:59 23:59 Intake Total 1639 / 1639 1205 / 1205 545 / 545 Output Total 2850 / 2850 3625 / 3625 1200 / 1200 Balance -1211 / -1211 -2420 / -2420 -655 / -655 General: Alert, Oriented x3, Cooperative HEENT: Atraumatic, PERRLA, EOMI, Normocephalic Neck: Supple, No JVD, Negative Carotid Bruits Lungs: Clear to auscultation, No rhonchi, No wheeze, No rales, Diminished Cardiovascular: Regular rate, Regular Rhythm, Normal S1, Normal S2, No murmurs Abdomen: Bowel Sounds Present, Soft, Non Tender, Non-Distended Extremities: Capillary Refill Less than 3 Seconds, Edema Skin: No rashes, No breakdown Musculoskeletal: Arthritic Changes, Muscle Wasting, Tenderness - Mild tenderness along the line of left PICC line Neurological: Cranial nerves II-XII grossly intact, - - Chronic bilateral lower extremity edema Psych/Mental Status: Normal Affect, Appropriate Microbiology Past 72 Hours 07/21/18 05:00 Urine Catheter - Catheter Urine Culture - Final Presumptive C albicans 07/21/18 06:00 Blood Culture (Wb) - Right Wrist Blood Culture - Preliminary No growth in 48 hours. 07/21/18 06:00 Blood Culture (Wb) - Arm Left Blood Culture - Preliminary No growth in 48 hours. Laboratory Results 07/24/18 16:22: POC Glucose 324 H 07/24/18 20:57: POC Glucose 356 H 07/25/18 04:50: Sodium 141, Potassium 3.4 L, Chloride 101, Carbon Dioxide 31.0, BUN 65 H, Creatinine 1.23 H, Estim Creat Clear Calc 35.71, Est GFR (MDRD) Af Amer 56 L, Est GFR (MDRD) Non-Af 46 L, BUN/Creatinine Ratio 52.8 H, Glucose 207 H, Calcium 7.6 L, Phosphorus 2.0 L, Magnesium 1.8, Albumin 1.5 L 07/25/18 06:49: POC Glucose 191 H 07/25/18 11:08: POC Glucose 240 H Current Medications Dextrose (D50w Syringe) 0 gm IV X1 PRN; Protocol PRN Reason: Hypoglycemia Enoxaparin Sodium (Lovenox) 30 mg SC DAILY@1000 KEKE Last Admin: 07/25/18 09:01 Dose: 30 mg Fluconazole (Diflucan) 200 mg PO DAILY REPLACED BY [facility] Stop: 07/29/18 10:01 Last Admin: 07/25/18 09:01 Dose: 200 mg Furosemide (Lasix) 20 mg IV DAILY REPLACED BY [facility] Last Admin: 07/25/18 09:00 Dose: 20 mg Gabapentin (Neurontin) 100 mg PO TIDCM REPLACED BY [facility] Last Admin: 07/25/18 11:11 Dose: 100 mg Glucagon () 1 mg IM .X1 PRN PRN Reason: Hypoglycemia Sodium Chloride () 250 mls @ 15 mls/hr IV .[id number] PRN PRN Reason: SALINE FLUSH Last Admin: 07/22/18 12:04 Dose: 15 mls/hr Meropenem 500 mg/ Sodium (Chloride) 60 mls @ 100 mls/hr IV Q8 REPLACED BY [facility] Stop: 07/29/18 22:35 Last Admin: 07/25/18 13:11 Dose: 100 mls/hr Insulin Human Lispro (Humalog Kwikpen (Bkc)) 0 unit SC ACHS REPLACED BY [facility]; Protocol Last Admin: 07/25/18 11:09 Dose: 2 u Latanoprost (Xalatan Opthalmic) 1 drop EACH EYE QHS REPLACED BY [facility] Last Admin: 07/24/18 21:07 Dose: 1 drop Metoprolol Tartrate (Lopressor (Beta Abraham)) 25 mg PO BID REPLACED BY [facility] Last Admin: 07/25/18 09:01 Dose: 25 mg Nutritional Formula (Sig[facility]redo - [place] [facility]) [facility] Last Admin: 07/25/18 07:58 Dose: 1 packet Oxycodone HCl (Oxyir) 5 mg PO Q4H PRN PRN PRN Reason: SEVERE PAIN (6-10/10) Last Admin: 07/25/18 09:14 Dose: 5 mg Polyethylene Glycol (Miralax) 17 gm PO DAILY REPLACED BY [facility] Last Admin: 07/25/18 09:02 Dose: Not Given Potassium Chlor[facility] (K[facility]Dur) [facility] Potassium Phos/Sodium Phos (Neutra-Phos Packet) 1 packet PO BID REPLACED BY [facility] Stop: 07/27/18 10:31 Last Admin: 07/25/18 11:11 Dose: 1 packet Sodium Chloride () 5 - 15 ml IV UD PRN PRN Reason: SALINE FLUSH Last Admin: 07/25/18 13:11 Dose: 10 ml Timolol Maleate (Timoptic) 5 drop EACH EYE BID REPLACED BY [facility] Last Admin: 07/25/18 09:02 Dose: 1 drop Medical Necessity - Tobacco Use Smoking Status: Never smoker Assessment/Plan All Active Problems (Last Reviewed 07/21/18 @ 03:46 by Jaison Lopez MD) Hyperkalemia (Acute) Acute hyperkalemia (Acute) Acute kidney failure (Acute) Metabolic acidemia (Acute) Abscess, wrist (Acute) Septic olecranon bursitis of right elbow (Acute) Skin necrosis (Acute) Infected decubitus ulcer (Acute) Olecranon bursitis of right elbow (Acute) Severe sepsis (Acute) Complicated urinary tract infection (Acute) Hematuria (Acute) Pressure ulcer of left buttock, stage 2 (Resolved) This 68-year-old female with history of chronic osteomyelitis of left ischial area, diabetes mellitus type 2, decubitus ulcer was admitted from group home because of hyperkalemia, potassium 9.1 and acute kidney injury. Patient was given hyperkalemic cocktail and admitted in ICU. She was found in septic shock secondary to UTI. 1. Acute hyperkalemia likely medication induced resolved. now hypokelamic Jewel Supervisor is replacing potassium cautiously. 3. Septic shock, most likely due to UTI. off levophed. Patient was transferred to PCU blood and urine cultures showed no growth on IV meropenem and PO fluconazole ID on board. Left PICC line. Venous ultrasound ordered to rule out DVT 3. Acute kidney injury due to vancomycin toxicity baseline Cr is ~ 0.3. Creatinine admission was 2.11. Cr today is 1.23 Likely due to vancomycin toxicity. Random vancomycin level was 43.2 on admission. Vancomycin on hold. Patient was seen by agricultural education professor IV fluid discontinued 4. Acute on chronic anemia: s/p transfusion of 2 units of PRBCs Hb improved. continue monitoring; keep Hb>7 5. Hypomagnesemia: Magnesium 1.4. Replaced and corrected 6. Hypophosphatemia: Phosphorous is 1.5. Replaced and corrected. 7. Lactic acidosis: Lactic acid is 6.4 likely due to septic shock. Now weaned off levophed. 8. Sacral decubitus and left and right ischial ulcers, stage IV: Present on admission. Seen by wound nurseSharri. Wound VAC applied. 9. Hypoglycemia: resolved. 10. Diabetes mellitus: Metformin on hold on account of AK and hypoglycemia. ISS. Accuchecks ACHS 11. Hypertension/ hyperlipidemia: Blood pressure medications on hold on account of hypotension. On statin. 12. Chronic osteomyelitis: Has chronic osteomyelitis of sacral wounds. Acute on board. 13. Dietitian note reviewed. Assessment shows no evidence of malnutrition. 14. Nonanion gap metabolic acidosis: resolved. Received bicarb drip. nephro on board. Likely due to HIMANSHU DVT prophylaxis: lovenox SC 30mg daily. CODE STATUS DNR CC arrest. Signout: Mild pain and tenderness along left arm PICC line. Follow-up venous ultrasound to rule out DVT. Discharged to SNF in about 2 days Code Visit Inpatient E&M: [id number] [facility] Hosp L3
--- NOTE | 2018-07-25 14:46 | PN_ITS ---
Patient Problems: Active and Suspected Problems (Last Reviewed 07/21/18 @ 03:46 by Jaison Lopez MD) Hyperkalemia (Acute) Acute hyperkalemia (Acute) Acute kidney failure (Acute) Metabolic acidemia (Acute) Subjective: Patient complain of left arm pain on medial aspect on course of PICC line. There is no erythema or induration. Venous ultrasound ordered. No fever or chills. Patient is on IV meropenem. Vitals/I&O's: Vital Signs Temp Pulse Resp BP Pulse Ox 98.5 F 84 16 110/63 98 07/25/18 09:00 07/25/18 11:00 07/25/18 09:00 07/25/18 09:01 07/25/18 09:00 Oxygen Delivery Method Room Air Weight: 166 lb 14.239 oz Body Mass Index (BMI) 26.9 Finger Stick Blood Glucose 154 Intake and Output for Last 24 Hours 07/23/18 07/24/18 07/25/18 23:59 23:59 23:59 Intake Total 1639 / 1639 1205 / 1205 545 / 545 Output Total 2850 / 2850 3625 / 3625 1200 / 1200 Balance -1211 / -1211 -2420 / -2420 -655 / -655 General: Alert, Oriented x3, Cooperative HEENT: Atraumatic, PERRLA, EOMI, Normocephalic Neck: Supple, No JVD, Negative Carotid Bruits Lungs: Clear to auscultation, No rhonchi, No wheeze, No rales, Diminished Cardiovascular: Regular rate, Regular Rhythm, Normal S1, Normal S2, No murmurs Abdomen: Bowel Sounds Present, Soft, Non Tender, Non-Distended Extremities: Capillary Refill Less than 3 Seconds, Edema Skin: No rashes, No breakdown Musculoskeletal: Arthritic Changes, Muscle Wasting, Tenderness - Mild tenderness along the line of left PICC line Neurological: Cranial nerves II-XII grossly intact, - - Chronic bilateral lower extremity edema Psych/Mental Status: Normal Affect, Appropriate Microbiology Past 72 Hours 07/21/18 05:00 Urine Catheter - Catheter Urine Culture - Final Presumptive C albicans 07/21/18 06:00 Blood Culture (Wb) - Right Wrist Blood Culture - Preliminary No growth in 48 hours. 07/21/18 06:00 Blood Culture (Wb) - Arm Left Blood Culture - Preliminary No growth in 48 hours. Laboratory Results 07/24/18 16:22: POC Glucose 324 H 07/24/18 20:57: POC Glucose 356 H 07/25/18 04:50: Sodium 141, Potassium 3.4 L, Chloride 101, Carbon Dioxide 31.0, BUN 65 H, Creatinine 1.23 H, Estim Creat Clear Calc 35.71, Est GFR (MDRD) Af Amer 56 L, Est GFR (MDRD) Non-Af 46 L, BUN/Creatinine Ratio 52.8 H, Glucose 207 H, Calcium 7.6 L, Phosphorus 2.0 L, Magnesium 1.8, Albumin 1.5 L 07/25/18 06:49: POC Glucose 191 H 07/25/18 11:08: POC Glucose 240 H Current Medications Dextrose (D50w Syringe) 0 gm IV X1 PRN; Protocol PRN Reason: Hypoglycemia Enoxaparin Sodium (Lovenox) 30 mg SC DAILY@1000 KEKE Last Admin: 07/25/18 09:01 Dose: 30 mg Fluconazole (Diflucan) 200 mg PO DAILY [facility] Stop: 07/29/18 10:01 Last Admin: 07/25/18 09:01 Dose: 200 mg Furosemide (Lasix) 20 mg IV DAILY [facility] Last Admin: 07/25/18 09:00 Dose: 20 mg Gabapentin (Neurontin) 100 mg PO TIDCM [facility] Last Admin: 07/25/18 11:11 Dose: 100 mg Glucagon () 1 mg IM .X1 PRN PRN Reason: Hypoglycemia Sodium Chloride () 250 mls @ 15 mls/hr IV .[id number] PRN PRN Reason: SALINE FLUSH Last Admin: 07/22/18 12:04 Dose: 15 mls/hr Meropenem 500 mg/ Sodium (Chloride) 60 mls @ 100 mls/hr IV Q8 [facility] Stop: 07/29/18 22:35 Last Admin: 07/25/18 13:11 Dose: 100 mls/hr Insulin Human Lispro (Humalog Kwikpen (Bkc)) 0 unit SC ACHS [facility]; Protocol Last Admin: 07/25/18 11:09 Dose: 2 u Latanoprost (Xalatan Opthalmic) 1 drop EACH EYE QHS [facility] Last Admin: 07/24/18 21:07 Dose: 1 drop Metoprolol Tartrate (Lopressor (Beta Abraham)) 25 mg PO BID [facility] Last Admin: 07/25/18 09:01 Dose: 25 mg Nutritional Formula (Sigifredo - [place] Flavor) [facility] Last Admin: 07/25/18 07:58 Dose: 1 packet Oxycodone HCl (Oxyir) 5 mg PO Q4H PRN PRN PRN Reason: SEVERE PAIN (6-10/10) Last Admin: 07/25/18 09:14 Dose: 5 mg Polyethylene Glycol (Miralax) 17 gm PO DAILY [facility] Last Admin: 07/25/18 09:02 Dose: Not Given Potassium Chloride (K-Dur) 20 meq [facility] Potassium Phos/Sodium Phos (Neutra-Phos Packet) 1 packet PO BID [facility] Stop: 07/27/18 10:31 Last Admin: 07/25/18 11:11 Dose: 1 packet Sodium Chloride () 5 - 15 ml IV UD PRN PRN Reason: SALINE FLUSH Last Admin: 07/25/18 13:11 Dose: 10 ml Timolol Maleate (Timoptic) 5 drop EACH EYE BID [facility] Last Admin: 07/25/18 09:02 Dose: 1 drop Medical Necessity - Tobacco Use Smoking Status: Never smoker Assessment/Plan All Active Problems (Last Reviewed 07/21/18 @ 03:46 by Jaison Lopez MD) Hyperkalemia (Acute) Acute hyperkalemia (Acute) Acute kidney failure (Acute) Metabolic acidemia (Acute) Abscess, wrist (Acute) Septic olecranon bursitis of right elbow (Acute) Skin necrosis (Acute) Infected decubitus ulcer (Acute) Olecranon bursitis of right elbow (Acute) Severe sepsis (Acute) Complicated urinary tract infection (Acute) Hematuria (Acute) Pressure ulcer of left buttock, stage 2 (Resolved) This 68-year-old female with history of chronic osteomyelitis of left ischial area, diabetes mellitus type 2, decubitus ulcer was admitted from [facility] because of hyperkalemia, potassium 9.1 and acute kidney injury. Patient was given hyperkalemic cocktail and admitted in ICU. She was found in septic shock secondary to UTI. 1. Acute hyperkalemia likely medication induced * resolved. now hypokelamic * Dragger Out is replacing potassium cautiously. 3. Septic shock, most likely due to UTI. * off levophed. Patient was transferred to PCU * blood and urine cultures showed no growth * on IV meropenem and PO fluconazole * ID on board. * Left PICC line. Venous ultrasound ordered to rule out DVT 3. Acute kidney injury due to vancomycin toxicity * baseline Cr is ~ 0.3. Creatinine admission was 2.11. Cr today is 1.23 * Likely due to vancomycin toxicity. * Random vancomycin level was 43.2 on admission. Vancomycin on hold. * Patient was seen by corrugator helper * IV fluid discontinued 4. Acute on chronic anemia: * s/p transfusion of 2 units of PRBCs * Hb improved. * continue monitoring; keep Hb>7 5. Hypomagnesemia: Magnesium 1.4. Replaced and corrected 6. Hypophosphatemia: Phosphorous is 1.5. Replaced and corrected. 7. Lactic acidosis: Lactic acid is 6.4 likely due to septic shock. Now weaned off levophed. 8. Sacral decubitus and left and right ischial ulcers, stage IV: Present on admission. Seen by wound nurseSharri. Wound VAC applied. 9. Hypoglycemia: * resolved. 10. Diabetes mellitus: Metformin on hold on account of AK and hypoglycemia. ISS. Accuchecks ACHS 11. Hypertension/ hyperlipidemia: Blood pressure medications on hold on account of hypotension. On statin. 12. Chronic osteomyelitis: Has chronic osteomyelitis of sacral wounds. Acute on board. 13. Dietitian note reviewed. Assessment shows no evidence of malnutrition. 14. Nonanion gap metabolic acidosis: resolved. Received bicarb drip. nephro on board. Likely due to HIMANSHU DVT prophylaxis: lovenox SC 30mg daily. CODE STATUS DNR CC arrest. Signout: Mild pain and tenderness along left arm PICC line. Follow-up venous ultrasound to rule out DVT. Discharged to SNF in about 2 days Code Visit Inpatient E&M: [id number] Subs Hosp L3
--- NOTE | 2018-07-25 14:47 | VDUE_ITS ---
Reason For Study: Pain - LUE PICC line Left Proximal Left jugular vein is spontaneous, widely patent, phasic, with no intraluminal echogenicity noted. LT Subclavian and Axillary veins are dilated and non-compressible with intraluminal echoes and absent color flow and doppler signal. Left Arm Left brachial vein is compressible. Mid brachial not assessed due to PICCplacement. Left cephalic vein is compressible. Left basilic vein is compressible. Left Lower Arm Left radial vein is compressible. Left ulnar vein is compressible. Interpretation Summary Acute deep venous thrombosis left subclavian and axillary veins. Left cephalic and basilic veins are patent and compressible Evidence of PICC line noted in left axillary and subclavian veins. Ordering Physician: Farhad Gray Referring Physician: Phani Mackenzie Performed By: Kathryn Wyman RVT ?
[2018-07-25 21:11] LABS: Bedside Glucose 245 mg/dL (70-110)
[2018-07-25] MEDS: Latanoprost 0.005% 1 Bottle 1 DRP EACH EYE (22:40)
[2018-07-25 23:05] LABS: Bedside Glucose 360 mg/dL (70-110)
[2018-07-26] VITALS (12 sets, daily range): BP systolic 101–135; BP diastolic 51–70; PULSE 89–108; RESP 16–18; TEMP 36.6–37.3; O2SAT 97–100; BMI 27.3
[2018-07-26] MEDS: 0.9% NaCl Peripheral Flush Adult/Peds IV ×4 (05:24→22:16)
[2018-07-26 05:56] LABS: Absolute Lymphocyte Count 1.05 X10^3/ul (0.83-4.51); Absolute Neutrophil Count 3.6 X10^3/uL (2.0-7.7); Basophil# 0.03 X10^3/uL; Basophil% 0.5 % (0-1); Eosinophil# 0.44 X10^3/uL; Eosinophils% 7.4 % (0-5); Hematocrit 27.3 % (37-47); Hemoglobin 8.7 g/dl (12.0-15.0); Lymphocyte # 1.05 X10^3/ul (4.0); Lymphocyte % 17.6 % (19-41); Mean Corp Hgb Conc 31.9 g/gl (32-36); Mean Corpuscular Hgb 30.1 pg (27.0-32.0); Mean Corpuscular Volume 94.5 fL (81-99); Mean Platelet Vol. 8.9 fl (6.2-12.0); Monocyte# 0.69 X10^3/uL; Monocyte% 11.5 % (0-10); Neutrophil # 3.64 X10^3/uL (2.7-7.7); Neutrophil % 60.8 % (47-70); Platelet Count 218 K/mm3 (150-450); RBC Distribution Width CV 18.9 % (11.6-14.6); RBC Distribution Width SD 62.5 fl (35.1-43.9); Red Blood Count 2.89 M/mm3 (4.2-5.4)
[2018-07-26 05:59] LABS: Albumin, Serum 1.5 g/dL (3.2-5.0); BUN 64 mg/dL (7-18); BUN/Creat Ratio 54.7 RATIO (10-20); Calcium,Total 7.6 mg/dL (8.5-10.1); Chloride 102 mmol/L (98-107); Creatinine, Serum 1.17 mg/dL (0.55-1.02); EST Glomerular Filtration Rate 49 mL/min (>60); Est Glom Filt Rate - Afr Amer 59 mL/min (>60); Estimated Creatinine Clearance 37.54 ml/min; Glucose 206 mg/dL (74-106); Phosphorus 2.1 mg/dL (2.5-4.9); Potassium 3.9 mmol/L (3.5-5.1); Sodium Level 140 mmol/L (136-145)
[2018-07-26 06:10] LABS: POSITIVE COUNT YES; POSITIVE DIFFERENTIAL NO; POSITIVE MORPHOLOGY YES
[2018-07-26 06:30] LABS: Absolute Nucleated RBC Count 0.14 10^3/uL (0-5); NRBC Flagged by Analyzer 2.4 % (0-5)
[2018-07-26 06:56] LABS: Bedside Glucose 191 mg/dL (70-110)
[2018-07-26] MEDS: Gabapentin 100 MG Capsule PO ×3 (09:05→17:04)
[2018-07-26] MEDS: Fluconazole 100 MG Tablet 200 MG PO (09:05)
[2018-07-26] MEDS: Furosemide 20 MG/2 ML VIAL IV (09:06)
[2018-07-26] MEDS: Timolol 0.5% 5ML OPTH.BTL 5 DRP EACH EYE (09:07)
[2018-07-26] MEDS: Na Biphos/Potassium Phosphate PACKET 1 PACKET PO ×2 (09:07→22:23)
[2018-07-26] MEDS: Metoprolol Tartrate 25 MG Tablet PO ×2 (09:14→22:15)
[2018-07-26] MEDS: Enoxaparin 30 MG/0.3 ML Syringe SC (09:15)
[2018-07-26] MEDS: Insulin Lispro 100 UNIT/ML INSULN.PEN SC ×4 (09:16→22:15)
--- NOTE | 2018-07-26 10:48 | PCM.TXEXTCAR ---
- Diet 07/21/18 08:01 Diet: Carbohydrate Controlled Type of Dietary Supplement:: sigifredo once daily Is pt able to select menu?: No Diet Comments: LOW POTASSIUM - Routine Orders/Code Status Enema Type: Fleetz Enema Frequency: Daily PRN Suppository Type: Dulcolax 10mg Suppository Frequency: Daily PRN O2 Frequency: PRN Keep PO Greater than or Equal to (%): 92 Code Status: DNRCC-A - Wound(s) left hip Wound Type: Abrasion Left gluteal fold Wound Type: Pressure Injury sacral/coccyx Wound Type: Pressure Injury right gluteal fold Wound Type: Pressure Injury right hip Wound Type: Abrasion right lateral upper thigh Wound Type: Pressure Injury right upper thigh #2 Wound Type: Abrasion right upper thigh #3 Wound Type: Abrasion right upper thigh #4 Wound Type: Abrasion right groin Wound Type: open excoriation right ischium Wound Type: Pressure Injury Dressing Change: applied KCI wound VAC sacrum Wound Type: Pressure Injury Dressing Change: applied KCI wound VAC left ischium Wound Type: Pressure Injury Dressing Change: applied KCI wound VAC - Therapies Weight Bearing: Weight bearing as tolerated Physical Therapy: Eval and Treat Occupational Therapy: Eval and Treat - Allergies/Procedures Done in Hospital Allergies/Adverse Reactions: Allergies No Known Allergies Allergy (Verified 07/20/18 20:02) Procedures: PICC line placement - Type of Care/Length of Stay Estimated LOS: More Than 30 Days Type of Care Needed: Skilled Rehab Potential: Fair Prognosis: Fair - Additional Orders/Day of Discharge Day of Discharge: 07/26/18 - Dietary and Speech Recommendations Dietitian Recommendations/Changes: Rec diet change to Cardiac/low sodium, CHO Control w/ fluid restriction as indicated. Will order glucerna shake 120 cc 4x/day w/ medpass to help w/ skin healing. Rec continue 1 packet Sigifredo BID. - Follow Up Care Primary Care Physician: Phani Mackenzie MD [Primary Care Provider] - Please follow up with your Primary Care Physician in: one week Please Follow Up With: Ave Rios MD When: 1-2 weeks Please Follow Up With: Denny Biggs MD When: 1-2 weeks Please Follow Up With: Joseph Padilla MD When: 1-2 weeks Please Follow Up With: Javid Ford MD When: 1-2 weeks
[2018-07-26 11:21] LABS: Ferritin 881 ng/mL (8-252); Iron 77 ug/dL (50-170); Iron Binding Capacity,Total 140 ug/dL (250-450)
--- NOTE | 2018-07-26 11:21 | PCM.PN.REN ---
Patient Problems: Active and Suspected Problems (Last Reviewed 07/21/18 @ 03:46 by Jaison Lopez MD) Hyperkalemia (Acute) Acute hyperkalemia (Acute) Acute kidney failure (Acute) Metabolic acidemia (Acute) Subjective: Pt is doing well. No nausea No vomiting. No SOB - Physical Exam General: Alert, Oriented x3 HEENT: Atraumatic Oral: Moist Mucosa Neck: Supple, No JVD Lungs: Clear to auscultation, Normal air movement Cardiovascular: Regular rate, Regular Rhythm, Normal S1, Normal S2 Abdomen: Bowel Sounds Present, Soft, Non Tender, Non-Distended Extremities: Edema - +1 EDEMA OF LUE Skin: No rashes Musculoskeletal: No Tenderness to Palpation of Joints or Extremities Lymphatic: No Cervical, Supraclavicular, or Inguinal Adenopathy Psych/Mental Status: Appropriate Vital Signs Temp Pulse Resp BP Pulse Ox 97.8 F 103 H 17 119/61 97 07/26/18 09:15 07/26/18 09:15 07/26/18 09:15 07/26/18 09:15 07/26/18 09:15 Oxygen Delivery Method Room Air Weight: 70 kg Body Mass Index (BMI) 26.9 Finger Stick Blood Glucose 154 Intake and Output for Last 24 Hours 07/24/18 07/25/18 07/26/18 23:59 23:59 23:59 Intake Total 1205 / 1205 885 / 885 315 / 315 Output Total 3625 / 3625 2200 / 2200 1400 / 1400 Balance -2420 / -2420 -1315 / -1315 -1085 / -1085 Microbiology Past 72 Hours 07/21/18 06:00 Blood Culture - Final Blood Culture (Wb) - Right Wrist No growth in 5 days. 07/21/18 06:00 Blood Culture - Final Blood Culture (Wb) - Arm Left No growth in 5 days. 07/21/18 05:00 Urine Culture - Final Urine Catheter - Catheter Presumptive C albicans Laboratory Tests Past 24 Hrs 07/26/18 07/26/18 07/26/18 05:25 05:25 05:25 WBC 6.0 RBC 2.89 L Hgb 8.7 L Hct 27.3 L MCV 94.5 MCH 30.1 MCHC 31.9 L RDW 18.9 H RDW Differential 62.5 H Plt Count 218 MPV 8.9 Immature Gran % (Auto) 2.200 H Neut % (Auto) 60.8 Lymph % (Auto) 17.6 L [place] % (Auto) 11.5 H Eos % (Auto) 7.4 H Baso % (Auto) 0.5 Absolute Neuts (auto) 3.6 Absolute Lymphs (auto) 1.05 Total Counted Not Reportable Nucleated RBC % 2.4 Diff Path Review May foll Absolute Retic 0.14 Sodium 140 Potassium 3.9 Chloride 102 Carbon Dioxide 30.0 BUN 64 H Creatinine 1.17 H Estim Creat Clear Calc 37.54 Est GFR (MDRD) Af Amer 59 L Est GFR (MDRD) Non-Af 49 L BUN/Creatinine Ratio 54.7 H Glucose 206 H Calcium 7.6 L Phosphorus 2.1 L Iron Pending TIBC Pending Iron Saturation Pending Ferritin Pending Albumin 1.5 L POC Glucose 07/26/18 07/25/18 07/25/18 06:50 22:32 16:15 POC Glucose 191 H 360 H 245 H 07/25/18 11:08 POC Glucose 240 H Medical Necessity - Tobacco Use Smoking Status: Never smoker Assessment/Plan All Active Problems (Last Reviewed 07/21/18 @ 03:46 by Jaison Lopez MD) Hyperkalemia (Acute) Acute hyperkalemia (Acute) Acute kidney failure (Acute) Metabolic acidemia (Acute) Abscess, wrist (Acute) Septic olecranon bursitis of right elbow (Acute) Skin necrosis (Acute) Infected decubitus ulcer (Acute) Olecranon bursitis of right elbow (Acute) Severe sepsis (Acute) Complicated urinary tract infection (Acute) Hematuria (Acute) Pressure ulcer of left buttock, stage 2 (Resolved) 1- HIMANSHU is most probably from ATN induced by vancomycin toxicity. Cr peaked at 2.1 mg/dl from normal baseline at 0.4 mg/dl UA showed 100 protein WBC 10-25, RBC 10-25 and LSE 100. Kidney function is improving. Creatinine down to 1.1.1 mg/dL today Keep MAP >65 Continue holding losartan Accurate I/O documentation 2- hyperkalemia: from HIMANSHU and acidosis Resolved with medical treatment and kidney function improvement.K peaked at 9.8 . 3-hypokalemia. resolved with replacement. Continue KCL supplement 4-hypomagnesemia. replaced. Mg is 1.7 on 4.7 5-hypophosphatemia phosphorus level: improved with replacement . P is 2.1. Continue oral replacement 6- Metabolic acidosis.from lactic acidosis from metformin and acute kidney injury. Lowest HCO3 level was 12. off NaHCO3 drip. HCO3 is stable at 30 Renal team will continue to follow Please call if any question at [phone] BROOKE TEMPLE MD
--- NOTE | 2018-07-26 11:31 | PCM.PN.HOSP ---
Patient Problems: Active and Suspected Problems (Last Reviewed 07/21/18 @ 03:46 by Jaison Lopez MD) Hyperkalemia (Acute) Acute hyperkalemia (Acute) Acute kidney failure (Acute) Metabolic acidemia (Acute) Subjective: Patient seen and examined. She had no complaints and felt well. Review of systems otherwise negative. Patient also has been complaining of pain along the PICC line and so a duplex was ordered. Duplex done today was positive for clots in the subclavian artery. Patient however still remains anemic and required 2 units of packed red blood cells during this admission on account of hemoglobin drop in 6.7. Of note, patient has been transfusion dependent in the past and was told that her anemia was due to bleeding from the decubitus ulcers. However she does have a history of positive fecal occult blood and states she has had a colonoscopy in the past. However she cannot remember where or how long ago she had a colonoscopy. She did have a barium enema done in March which showed a large amount of fecal material in the colon. Discussed with patient about the need for anticoagulation in light of clots in the subclavian artery, and workup needed for iron deficiency anemia. Patient wants a full workup for anemia. Of note, patient recently changed her code status from DNRCC to DNRCCA 3 days ago. Vitals/I&O's: Vital Signs Temp Pulse Resp BP Pulse Ox 97.8 F 101 H 17 119/61 97 07/26/18 09:15 07/26/18 11:06 07/26/18 09:15 07/26/18 09:15 07/26/18 09:15 Oxygen Delivery Method Room Air Weight: 154 lb 5.177 oz Body Mass Index (BMI) 26.9 Finger Stick Blood Glucose 154 Intake and Output for Last 24 Hours 07/24/18 07/25/18 07/26/18 23:59 23:59 23:59 Intake Total 1205 / 1205 885 / 885 315 / 315 Output Total 3625 / 3625 2200 / 2200 1400 / 1400 Balance -2420 / -2420 -1315 / -1315 -1085 / -1085 General: Alert, Oriented x3, Cooperative HEENT: Atraumatic, PERRLA, EOMI, Normocephalic Neck: Supple, No JVD, Negative Carotid Bruits Lungs: Clear to auscultation, No rhonchi, No wheeze, No rales, Diminished Cardiovascular: Regular rate, Regular Rhythm, Normal S1, Normal S2, No murmurs Abdomen: Bowel Sounds Present, Soft, Non Tender, Non-Distended; colostomy bag in place Extremities: Capillary Refill Less than 3 Seconds, Edema Skin: No rashes stage 4 decubitus ulcers on buttocks and over ischial bones. Musculoskeletal: Arthritic Changes, Muscle Wasting, Tenderness - Mild tenderness along the line of left PICC line Neurological: Cranial nerves II-XII grossly intact, - - Chronic bilateral lower extremity edema Psych/Mental Status: Normal Affect, Appropriate Microbiology Past 72 Hours 07/21/18 06:00 Blood Culture (Wb) - Right Wrist Blood Culture - Final No growth in 5 days. 07/21/18 06:00 Blood Culture (Wb) - Arm Left Blood Culture - Final No growth in 5 days. 07/21/18 05:00 Urine Catheter - Catheter Urine Culture - Final Presumptive C albicans Laboratory Results 07/25/18 16:15: POC Glucose 245 H 07/25/18 22:32: POC Glucose 360 H 07/26/18 05:25: Sodium 140, Potassium 3.9, Chloride 102, Carbon Dioxide 30.0, BUN 64 H, Creatinine 1.17 H, Estim Creat Clear Calc 37.54, Est GFR (MDRD) Af Amer 59 L, Est GFR (MDRD) Non-Af 49 L, BUN/Creatinine Ratio 54.7 H, Glucose 206 H, Calcium 7.6 L, Phosphorus 2.1 L, Albumin 1.5 L 07/26/18 05:25: WBC 6.0, RBC 2.89 L, Hgb 8.7 L, Hct 27.3 L, MCV 94.5, MCH 30.1, MCHC 31.9 L, RDW 18.9 H, RDW Differential 62.5 H, Plt Count 218, MPV 8.9, Immature Gran % (Auto) 2.200 H, Neut % (Auto) 60.8, Lymph % (Auto) 17.6 L, [place] % (Auto) 11.5 H, Eos % (Auto) 7.4 H, Baso % (Auto) 0.5, Absolute Neuts (auto) 3.6, Absolute Lymphs (auto) 1.05, Total Counted Not Reportable, Nucleated RBC % 2.4, Diff Path Review August foll, Absolute Retic 0.14 07/26/18 05:25: Iron 77, TIBC 140 L, Iron Saturation 55.0, Ferritin 881 H 07/26/18 06:50: POC Glucose 191 H Diagnostic Data Chest X-Ray 07/21/18 05:45 IMPRESSION: 1. No acute cardiopulmonary disease. 2. Good position of the left side PICC line. No pneumothorax. at 0619 Reported and signed by: Norberto Juárez MD Electronically Signed: Norberto Juárez, at 6:18 EDT Tel , Service support , Current Medications Dextrose (D50w Syringe) 0 gm IV X1 PRN; Protocol PRN Reason: Hypoglycemia Enoxaparin Sodium (Lovenox) 30 mg SC DAILY@1000 KEKE Last Admin: 07/26/18 09:15 Dose: 30 mg Fluconazole (Diflucan) 200 mg PO DAILY [facility] Stop: 07/29/18 10:01 Last Admin: 07/26/18 09:05 Dose: 200 mg Furosemide (Lasix) 20 mg IV DAILY [facility] Last Admin: 07/26/18 09:06 Dose: 20 mg Gabapentin (Neurontin) 100 mg PO TIDCM [facility] Last Admin: 07/26/18 09:05 Dose: 100 mg Glucagon () 1 mg IM .X1 PRN PRN Reason: Hypoglycemia Sodium Chloride () 250 mls @ 15 mls/hr IV .[id number] PRN PRN Reason: SALINE FLUSH Last Admin: 07/22/18 12:04 Dose: 15 mls/hr Meropenem 500 mg/ Sodium (Chloride) 60 mls @ 100 mls/hr IV Q8 [facility] Stop: 07/29/18 22:35 Last Admin: 07/26/18 05:32 Dose: 100 mls/hr Insulin Human Lispro (Humalog Kwikpen (Bkc)) 0 unit SC ACHS [facility]; Protocol Last Admin: 07/26/18 09:16 Dose: 1 u Latanoprost (Xalatan Opthalmic) 1 drop EACH EYE QHS [facility] Last Admin: 07/25/18 22:40 Dose: 1 drop Metoprolol Tartrate (Lopressor (Beta Abraham)) 25 mg PO BID [facility] Last Admin: 07/26/18 09:14 Dose: 25 mg Nutritional Formula (Sigifredo - [place] [facility]) [facility] Last Admin: 07/26/18 09:04 Dose: 1 packet Nutritional Formula (Lactose Free) (Glucerna Shake) 120 ml PO 4X/DAY [facility] Oxycodone HCl (Oxyir) 5 mg PO Q4H PRN PRN PRN Reason: SEVERE PAIN (6-10/10) Last Admin: 07/25/18 09:14 Dose: 5 mg Polyethylene Glycol (Miralax) 17 gm PO DAILY [facility] Last Admin: 07/26/18 09:06 Dose: Not Given Potassium Chloride (K-Dur) [facility] Last Admin: 07/26/18 09:05 Dose: 20 meq Potassium Phos/Sodium Phos (Neutra-Phos Packet) 1 packet PO BID [facility] Stop: 07/27/18 10:31 Last Admin: 07/26/18 09:07 Dose: 1 packet Sodium Chloride () 5 - 15 ml IV UD PRN PRN Reason: SALINE FLUSH Last Admin: 07/26/18 05:27 Dose: 10 ml Timolol Maleate (Timoptic) 5 drop EACH EYE BID [facility] Last Admin: 07/26/18 09:07 Dose: 1 drop Medical Necessity - Tobacco Use Smoking Status: Never smoker Assessment/Plan All Active Problems (Last Reviewed 07/21/18 @ 03:46 by Jaison Lopez MD) Hyperkalemia (Acute) Acute hyperkalemia (Acute) Acute kidney failure (Acute) Metabolic acidemia (Acute) Abscess, wrist (Acute) Septic olecranon bursitis of right elbow (Acute) Skin necrosis (Acute) Infected decubitus ulcer (Acute) Olecranon bursitis of right elbow (Acute) Severe sepsis (Acute) Complicated urinary tract infection (Acute) Hematuria (Acute) Pressure ulcer of left buttock, stage 2 (Resolved) 1. Acute hyperkalemia likely medication induced resolved. now hypokelamic nephro on board 2. Hypokalemia: Likely due to Kayexalate administration. resolved with potassium administration.Potassium is 2.5 today. Will replace and monitor. 3. RUE clots: complained of pain along PICC line; duplex done showed clots in the subclavian artery. [patient will need oral anticoagulation; however, in light of iron deficiency anemia and history of positive occult blood in stool, will need GI workup as well general surgery consulted. will start heparin drip; stop at 6am tomorrow morning in preparation for an EGD and colonoscopy per discussion with ID, to keep PICC line for now. 4. Acute on chronic anemia: s/p transfusion of 2 units of PRBCs Hb today is 8.7 has a history of positive fecal occult blood. Says shes had a colonoscopy in the past, but doesnt remember how long ago it was iron panel done in 2018 showed iron deficiency anemia; has been on iron supplementation repeat iron panel showes iron of 77, IBC of 140 and ferritin of 881. general surgery consulted; for EGD and colonoscopy tomorrow 5. Septic shock likely due to UTI off pressors blood and urine cultures showed no growth on IV meropenem and PO fluconazole ID on board. 6. Acute renal failure due to vancomycin toxicity resolved. Cr is down to 1.17; baseline is ~ 0.3 nephrology on board 7. Hypomagnesemia: resolved. 8. Hypophosphatemia: phosphorous is 2.1 today. Will replace and monitor. 9. Lactic acidosis: Lactic acid is 6.4 likely due to septic shock. Now weaned off levophed. 10. Sacral decubitus ulcers: Present on admission. States undetermined on account of wounds being dressed. Will monitor. 11. Diabetes mellitus: Metformin on hold on account of AK and hypoglycemia. ISS. Accuchecks ACHS 12. Hypertension/ hyperlipidemia: Blood pressure medications on hold on account of hypotension. On statin. 13. Chronic osteomyelitis: Has chronic osteomyelitis of sacral wounds. wound care on board. 15. Malnutrition: Albumin is only 1.5. This is likely due to patient's multiple comorbidities. Dietary on board 14. Nonanion gap metabolic acidosis: resolved. Received bicarb drip. nephro on board. Likely due to HIMANSHU DVT prophylaxis:on heparin drip Code status: DNRCCA Code Visit Inpatient E&M: 88804 Subs Hosp L3
--- NOTE | 2018-07-26 11:42 | PN_ITS ---
Patient Problems: Active and Suspected Problems (Last Reviewed 07/21/18 @ 03:46 by Jaison Lopez MD) Hyperkalemia (Acute) Acute hyperkalemia (Acute) Acute kidney failure (Acute) Metabolic acidemia (Acute) Subjective: Patient seen and examined. She had no complaints and felt well. Review of systems otherwise negative. Patient also has been complaining of pain along the PICC line and so a duplex was ordered. Duplex done today was positive for clots in the subclavian artery. Patient however still remains anemic and required 2 units of packed red blood cells during this admission on account of hemoglobin drop in 6.7. Of note, patient has been transfusion dependent in the past and was told that her anemia was due to bleeding from the decubitus ulcers. However she does have a history of positive fecal occult blood and states she has had a colonoscopy in the past. However she cannot remember where or how long ago she had a colonoscopy. She did have a barium enema done in March which showed a large amount of fecal material in the colon. Discussed with patient about the need for anticoagulation in light of clots in the subclavian artery, and workup needed for iron deficiency anemia. Patient wants a full workup for anemia. Of note, patient recently changed her code status from DNRCC to DNRCCA 3 days ago. Vitals/I&O's: Vital Signs Temp Pulse Resp BP Pulse Ox 97.8 F 101 H 17 119/61 97 07/26/18 09:15 07/26/18 11:06 07/26/18 09:15 07/26/18 09:15 07/26/18 09:15 Oxygen Delivery Method Room Air Weight: 154 lb 5.177 oz Body Mass Index (BMI) 26.9 Finger Stick Blood Glucose 154 Intake and Output for Last 24 Hours 07/24/18 07/25/18 07/26/18 23:59 23:59 23:59 Intake Total 1205 / 1205 885 / 885 315 / 315 Output Total 3625 / 3625 2200 / 2200 1400 / 1400 Balance -2420 / -2420 -1315 / -1315 -1085 / -1085 General: Alert, Oriented x3, Cooperative HEENT: Atraumatic, PERRLA, EOMI, Normocephalic Neck: Supple, No JVD, Negative Carotid Bruits Lungs: Clear to auscultation, No rhonchi, No wheeze, No rales, Diminished Cardiovascular: Regular rate, Regular Rhythm, Normal S1, Normal S2, No murmurs Abdomen: Bowel Sounds Present, Soft, Non Tender, Non-Distended; colostomy bag in place Extremities: Capillary Refill Less than 3 Seconds, Edema Skin: No rashes stage 4 decubitus ulcers on buttocks and over ischial bones. Musculoskeletal: Arthritic Changes, Muscle Wasting, Tenderness - Mild tenderness along the line of left PICC line Neurological: Cranial nerves II-XII grossly intact, - - Chronic bilateral lower extremity edema Psych/Mental Status: Normal Affect, Appropriate Microbiology Past 72 Hours 07/21/18 06:00 Blood Culture (Wb) - Right Wrist Blood Culture - Final No growth in 5 days. 07/21/18 06:00 Blood Culture (Wb) - Arm Left Blood Culture - Final No growth in 5 days. 07/21/18 05:00 Urine Catheter - Catheter Urine Culture - Final Presumptive C albicans Laboratory Results 07/25/18 16:15: POC Glucose 245 H 07/25/18 22:32: POC Glucose 360 H 07/26/18 05:25: Sodium 140, Potassium 3.9, Chloride 102, Carbon Dioxide 30.0, BUN 64 H, Creatinine 1.17 H, Estim Creat Clear Calc 37.54, Est GFR (MDRD) Af Amer 59 L, Est GFR (MDRD) Non-Af 49 L, BUN/Creatinine Ratio 54.7 H, Glucose 206 H, Calcium 7.6 L, Phosphorus 2.1 L, Albumin 1.5 L 07/26/18 05:25: WBC 6.0, RBC 2.89 L, Hgb 8.7 L, Hct 27.3 L, MCV 94.5, MCH 30.1, MCHC 31.9 L, RDW 18.9 H, RDW Differential 62.5 H, Plt Count 218, MPV 8.9, Immature Gran % (Auto) 2.200 H, Neut % (Auto) 60.8, Lymph % (Auto) 17.6 L, [place] % (Auto) 11.5 H, Eos % (Auto) 7.4 H, Baso % (Auto) 0.5, Absolute Neuts (auto) 3.6, Absolute Lymphs (auto) 1.05, Total Counted Not Reportable, Nucleated RBC % 2.4, Diff Path Review August foll, Absolute Retic 0.14 07/26/18 05:25: Iron 77, TIBC 140 L, Iron Saturation 55.0, Ferritin 881 H 07/26/18 06:50: POC Glucose 191 H Diagnostic Data Chest X-Ray 07/21/18 05:45 IMPRESSION: 1. No acute cardiopulmonary disease. 2. Good position of the left side PICC line. No pneumothorax. at 0619 Reported and signed by: Norberto Juárez MD Electronically Signed: Norberto Juárez, at 6:18 EDT Tel , Service support , Current Medications Dextrose (D50w Syringe) 0 gm IV X1 PRN; Protocol PRN Reason: Hypoglycemia Enoxaparin Sodium (Lovenox) 30 mg SC DAILY@1000 KEKE Last Admin: 07/26/18 09:15 Dose: 30 mg Fluconazole (Diflucan) 200 mg PO DAILY [facility] Stop: 07/29/18 10:01 Last Admin: 07/26/18 09:05 Dose: 200 mg Furosemide (Lasix) 20 mg IV DAILY [facility] Last Admin: 07/26/18 09:06 Dose: 20 mg Gabapentin (Neurontin) 100 mg PO TIDCM [facility] Last Admin: 07/26/18 09:05 Dose: 100 mg Glucagon () 1 mg IM .X1 PRN PRN Reason: Hypoglycemia Sodium Chloride () 250 mls @ 15 mls/hr IV .[id number] PRN PRN Reason: SALINE FLUSH Last Admin: 07/22/18 12:04 Dose: 15 mls/hr Meropenem 500 mg/ Sodium (Chloride) 60 mls @ 100 mls/hr IV Q8 [facility] Stop: 07/29/18 22:35 Last Admin: 07/26/18 05:32 Dose: 100 mls/hr Insulin Human Lispro (Humalog Kwikpen (Bkc)) 0 unit SC ACHS [facility]; Protocol Last Admin: 07/26/18 09:16 Dose: 1 u Latanoprost (Xalatan Opthalmic) 1 drop EACH EYE QHS [facility] Last Admin: 07/25/18 22:40 Dose: 1 drop Metoprolol Tartrate (Lopressor (Beta Abraham)) 25 mg PO BID [facility] Last Admin: 07/26/18 09:14 Dose: 25 mg Nutritional Formula (Sigifredo - [place] Flavor) [facility] Last Admin: 07/26/18 09:04 Dose: 1 packet Nutritional Formula (Lactose Free) (Glucerna Shake) 120 ml PO 4X/DAY [facility] Oxycodone HCl (Oxyir) 5 mg PO Q4H PRN PRN PRN Reason: SEVERE PAIN (6-10/10) Last Admin: 07/25/18 09:14 Dose: 5 mg Polyethylene Glycol (Miralax) 17 gm PO DAILY [facility] Last Admin: 07/26/18 09:06 Dose: Not Given Potassium Chloride ([facility]-Dur) [facility] Last Admin: 07/26/18 09:05 Dose: 20 meq Potassium Phos/Sodium Phos (Neutra-Phos Packet) 1 packet PO BID [facility] Stop: 07/27/18 10:31 Last Admin: 07/26/18 09:07 Dose: 1 packet Sodium Chloride () 5 - 15 ml IV UD PRN PRN Reason: SALINE FLUSH Last Admin: 07/26/18 05:27 Dose: 10 ml Timolol Maleate (Timoptic) 5 drop EACH EYE BID [facility] Last Admin: 07/26/18 09:07 Dose: 1 drop Medical Necessity - Tobacco Use Smoking Status: Never smoker Assessment/Plan All Active Problems (Last Reviewed 07/21/18 @ 03:46 by Jaison Lopez MD) Hyperkalemia (Acute) Acute hyperkalemia (Acute) Acute kidney failure (Acute) Metabolic acidemia (Acute) Abscess, wrist (Acute) Septic olecranon bursitis of right elbow (Acute) Skin necrosis (Acute) Infected decubitus ulcer (Acute) Olecranon bursitis of right elbow (Acute) Severe sepsis (Acute) Complicated urinary tract infection (Acute) Hematuria (Acute) Pressure ulcer of left buttock, stage 2 (Resolved) 1. Acute hyperkalemia likely medication induced * resolved. now hypokelamic * nephro on board * 2. Hypokalemia: Likely due to Kayexalate administration. resolved with potassium administration.Potassium is 2.5 today. Will replace and monitor. * 3. RUE clots: * complained of pain along PICC line; duplex done showed clots in the subclavian artery. * [patient will need oral anticoagulation; however, in light of iron deficiency anemia and history of positive occult blood in stool, will need GI workup as well * general surgery consulted. * will start heparin drip; stop at 6am tomorrow morning in preparation for an EGD and colonoscopy * per discussion with ID, to keep PICC line for now. * 4. Acute on chronic anemia: * s/p transfusion of 2 units of PRBCs * Hb today is 8.7 * has a history of positive fecal occult blood. Says shes had a colonoscopy in the past, but doesnt remember how long ago it was * iron panel done in 2018 showed iron deficiency anemia; has been on iron supplementation * repeat iron panel showes iron of 77, IBC of 140 and ferritin of 881. * general surgery consulted; for EGD and colonoscopy tomorrow * 5. Septic shock likely due to UTI * off pressors * blood and urine cultures showed no growth * on IV meropenem and PO fluconazole * ID on board. * 6. Acute renal failure due to vancomycin toxicity * resolved. Cr is down to 1.17; baseline is ~ 0.3 * nephrology on board * 7. Hypomagnesemia: resolved. 8. Hypophosphatemia: phosphorous is 2.1 today. Will replace and monitor. 9. Lactic acidosis: Lactic acid is 6.4 likely due to septic shock. Now weaned off levophed. 10. Sacral decubitus ulcers: Present on admission. States undetermined on account of wounds being dressed. Will monitor. * 11. Diabetes mellitus: Metformin on hold on account of [place] and hypoglycemia. ISS. Accuchecks ACHS 12. Hypertension/ hyperlipidemia: Blood pressure medications on hold on account of hypotension. On statin. 13. Chronic osteomyelitis: Has chronic osteomyelitis of sacral wounds. wound care on board. 15. Malnutrition: Albumin is only 1.5. This is likely due to patient's multiple comorbidities. Dietary on board 14. Nonanion gap metabolic acidosis: resolved. Received bicarb drip. nephro on board. Likely due to HIMAN[facility] DVT prophylaxis:on heparin drip Code status: DNRCCA Code Visit Inpatient E&M: 76334 [facility] Hosp L3
[2018-07-26 11:45] LABS: Pathologist Review Reviewed
--- NOTE | 2018-07-26 11:45 | NURSING ---
Wound VAC alarming leak. removed wound VAC dressings and applied a wet to dry dressing until the doctor decides if patient will be going to the [facility] today or not. If patient stays, will reapply the wound VAC this afternoon.
[2018-07-26 12:01] LABS: Bedside Glucose 311 mg/dL (70-110)
[2018-07-26] MEDS: HEPARIN/D5w 25,000 UNITS 25,000 UNITS/250 ML IV.SOLN. 10 UNITS IV (13:04)
[2018-07-26] MEDS: Electrolyte Solution/Peg's 4000 ML PO (13:05)
--- NOTE | 2018-07-26 13:25 | CASEMGMT ---
Social Work: Spoke with RN CM and physician who state that patient is not medically ready for D/C today. TC to Mary at [facility]. Mary aware that patient is not medically ready for D/C. Will continue to gather needed documentation for LOC. Will update [facility] as needed with D/C date. will continue to follow to assist with D/C planning. JULIA Arrington
[2018-07-26 13:32] LABS: Partial Thromboplast Time 35.8 Seconds (24.1-36.2)
--- NOTE | 2018-07-26 15:08 | NURSING ---
Plan to reapply the wound VAC tomorrow if the patient is not discharged to the skilled nursing. Feel since patient will be moved to a cot in [place] tomorrow for the EGD and colonoscopy, the wound VAC drape could get pulled and could cause a leak alarm. feel it is probably best to hold off until tomorrow. if patient is discharged to skilled nursing, would send patient with a wet to dry dressing anyway. Pt agreed with plan. ORQUIDEA Kang aware as well.
--- NOTE | 2018-07-26 15:33 | CON.PCM_ITS ---
Problem List (1) Anemia Status: Acute Reason for Consult Date of Consultation: 07/26/18 Reason for Consultation: Acute on chronic anemia History of Present Illness: The patient is a 68 year old F who presented with UTI symptoms and sepsis. Patient notes she has been anemic for a while, patient is unsure how long. Patient apparently has lumbar stenosis and was wheelchair bound. She recently found she had severe cervical stenosis which has lead to difficulty with arm mobility. Patient denies melena, bright red blood per stoma. Patient had a colostomy created in 2012. She is unsure when her last colonoscopy was. Patient denies heartburn, GERD symptoms. She also has stage II, III and IV decubitus ulcers Patient currently is being treated with wound vac. [facility]. Past Medical History Past Medical History (Chronic Problems): Chronic Problems (Last Reviewed 07/21/18 @ 03:46 by Jaison Lopez MD) Chronic osteomyelitis of left pelvic region (Chronic) 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 Right ischial pressure sore, stage 4 (Chronic) Open wound of left thigh (Chronic) traumatic skin tear posterior thigh Incompetent urethral closure mechanism (Chronic) Neurogenic bladder (Chronic) Stage II pressure ulcer (Chronic) Chronic suprapubic catheter (Chronic) Diabetes mellitus type 2 in nonobese (Chronic) Hypertension (Chronic) Gout (Chronic) with arthropathy Pressure ulcer of left buttock, stage 3 (Chronic) left lower buttock/upper thigh area Diabetes mellitus (Chronic) Pressure ulcer of right buttock, stage 3 (Chronic) Diabetic neuropathy, type II diabetes mellitus (Chronic) Malnutrition (Chronic) Back pain (Chronic) Arthritis (Chronic) 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 significance to followup Anemia of chronic disease (Chronic) Physical deconditioning (Chronic) Dupuytren's contracture of right hand (Chronic) Spinal stenosis (Chronic) Hyperlipidemia (Chronic) RP (rectal prolapse) (Chronic) Medical History: Medical History (Last Reviewed 07/26/18 @ 15:47 by Alyssa Azevedo PA-C) Open wound of left thigh (Chronic) S71.102A traumatic skin tear posterior thigh Incompetent urethral closure mechanism (Chronic) N36.8 Neurogenic bladder (Chronic) N31.9 Stage II pressure ulcer (Chronic) L89.92 Complicated urinary tract infection (Acute) N39.0 Hematuria (Acute) R31.9 Diabetes mellitus type 2 in nonobese (Chronic) E11.9 Hypertension (Chronic) I10 Gout (Chronic) M10.9 with arthropathy Pressure ulcer of left buttock, stage 3 (Chronic) L89.323 left lower buttock/upper thigh area Pressure ulcer of left buttock, stage 2 (Resolved) L89.322 Diabetes mellitus (Chronic) E11.9 Pressure ulcer of right buttock, stage 3 (Chronic) L89.313 Diabetic neuropathy, type II diabetes mellitus (Chronic) E11.40 Malnutrition (Chronic) E46 Back pain (Chronic) M54.9 Arthritis (Chronic) M19.90 chronic osteomyelitis left ischial area (Chronic) Pressure sore of left ischium, stage 4 (Chronic) L89.324 Lytic bone lesion of right femur (Chronic) M89.8X5 and right humerus ? significance to followup Anemia of chronic disease (Chronic) D63.8 Physical deconditioning (Chronic) R53.81 Dupuytren's contracture of right hand (Chronic) M72.0 Spinal stenosis (Chronic) M48.00 Hyperlipidemia (Chronic) E78.5 RP (rectal prolapse) (Chronic) K62.3 Allergies No Known Allergies Allergy (Verified 07/20/18 20:02) Home Medications: Ambulatory Orders Medication Instructions Recorded Allopurinol [Zyloprim] 200 mg PO DAILY 07/05/14 Multivitamins,Therapeutic 1 tab PO DAILY 07/05/14 [Multivitamin] Timolol Maleate [Timoptic-XE 0.5%] 1 drp EACH EYE DAILY 07/05/14 Ascorbic Acid [Vitamin C] 500 mg PO DAILY@0800 09/09/17 Metformin HCl [Glucophage] 1,000 mg PO BID 02/26/18 Atorvastatin Calcium [Lipitor] 10 mg PO QHS 06/16/18 Gabapentin [Neurontin] 100 mg PO TID 06/16/18 Lactobacillus Acidophilus 1 cap PO DAILY 06/16/18 [Acidophilus] Linagliptin [Tradjenta] 5 mg PO DAILY 06/16/18 Polyethylene Glycol 3350 [Miralax] 17 gm PO DAILY 06/16/18 Fluconazole [Diflucan] 400 mg PO DAILY 38 Days #38 tab 06/22/18 Insulin Lispro [Humalog KwikPen] See Protocol SC ACHS insuln.pen 06/22/18 Losartan Potassium [Cozaar] 25 mg PO DAILY tablet 06/22/18 Metoprolol Tartrate [Lopressor 25 mg PO BID tablet 06/22/18 (beta honey)] Oxycodone HCl/Acetaminophen 1 tab PO Q4H PRN PRN #10 tab 06/22/18 [Oxycodone-Acetaminophen 5-325] Potassium Chloride [K-Dur] 20 meq PO DAILYCM tablet 06/22/18 Smz/Tmp Ds [Bactrim Ds] 1 tab PO BID 38 Days #76 tab 06/22/18 Bisacodyl [Laxative Suppository] 10 mg RC DAILY PRN PRN 07/20/18 Citric AC/Gluconolact/Mag Carb 30 ml IR DAILY 07/20/18 [Renacidin Irrigation Solution] Furosemide [Lasix] 20 mg PO DAILY 07/20/18 Latanoprost 0.005% [Xalatan 1 drop EACH EYE QHS 07/20/18 Opthalmic] Magnesium Hydroxide [Milk of 30 ml PO DAILY PRN PRN 07/20/18 Magnesia] Mirabegron [Myrbetriq] 50 mg PO DAILY 07/20/18 Surgical History: Surgical History (Last Reviewed 07/26/18 @ 15:48 by Alyssa Azevedo PA-C) Chronic suprapubic catheter (Chronic) Z93.[address] (Chronic) Z93.3 Previous back surgery Z98.890 Surgical History: - - Surgery for rectal prolapse with anterior resection and rectopexy at [facility] in 2008 and back surgery 1979. Colostomy was November 2012. Excision left ischial pressure sore with partial ostectomy for osteomyelitis and excision right ischial pressure sore and excision left lateral ankle pressure sore with partial ostectomy for osteomyelitis in 08/01. Lives: Intermediate Smoking Status: Never smoker - *Family History Maternal History Items: Diabetes, Hypertension Paternal History Items: Diabetes, Hypertension Review of Systems Constitutional: Denies: Anorexia, Weight Change HEENT: Denies: Head Aches, Sinus Congestion, Sinus Drainage Cardiovascular: Denies: Chest Pain, Palpitations Respiratory: Denies: Cough, Shortness of breath at rest, Sputum production Gastrointestinal: Denies: Abdominal Pain, Nausea, Vomiting Genitourinary: Denies: Dysuria Musculoskeletal: Denies: Joint Pain, Joint Tenderness Skin: Denies: Rash, Wounds Neurological: Reports: Balance problems Psychiatric: Denies: Anxiety, Depression, Homicidal Ideations, Suicidal Ideations Hematologic/ Lymphatic: Reports: Anemia, Hx of blood transfusion Patient Problems: Active and Suspected Problems (Last Reviewed 07/21/18 @ 03:46 by Jaison Lopez MD) Hyperkalemia (Acute) Acute hyperkalemia (Acute) Acute kidney failure (Acute) Metabolic acidemia (Acute) Anemia (Acute) - Physical Exam General: Alert, Oriented x3, Cooperative HEENT: Atraumatic, PERRLA, EOMI, Normocephalic Neck: Supple, No JVD, Negative Carotid Bruits Lungs: Clear to auscultation, Normal air movement Cardiovascular: Regular rate, No murmurs Abdomen: Bowel Sounds Present, Soft, Non Tender, - - Colostomy noted with brown stool Skin: Ulcer/ Wound - left, right buttock and sacrum Musculoskeletal: Muscle Wasting Psych/Mental Status: Normal Affect, Appropriate Vital Signs Temp Pulse Resp BP Pulse Ox 97.8 F 102 H 17 119/61 97 07/26/18 09:15 07/26/18 14:59 07/26/18 09:15 07/26/18 09:15 07/26/18 09:15 Oxygen Delivery Method Room Air Weight: 154 lb 5.177 oz Body Mass Index (BMI) 26.9 Finger Stick Blood Glucose 154 Intake and Output for Last 24 Hours 07/24/18 07/25/18 07/26/18 23:59 23:59 23:59 Intake Total 1205 / 1205 885 / 885 435 / 435 Output Total 3625 / 3625 2200 / 2200 2450 / 2450 Balance -2420 / -2420 -1315 / -1315 -2014 / -2014 Microbiology Past 72 Hours 07/26/18 11:30 Stool Occult Blood (NEVAEH) - Final Stool 07/21/18 06:00 Blood Culture - Final Blood Culture (Wb) - Right Wrist No growth in 5 days. 07/21/18 06:00 Blood Culture - Final Blood Culture (Wb) - Arm Left No growth in 5 days. 07/21/18 05:00 Urine Culture - Final Urine Catheter - Catheter Presumptive C albicans Laboratory Tests Past 24 Hrs 07/26/18 07/26/18 07/26/18 05:25 05:25 05:25 WBC 6.0 RBC 2.89 L Hgb 8.7 L Hct 27.3 L MCV 94.5 MCH 30.1 MCHC 31.9 L RDW 18.9 H RDW Differential 62.5 H Plt Count 218 MPV 8.9 Immature Gran % (Auto) 2.200 H Neut % (Auto) 60.8 Lymph % (Auto) 17.6 L [place] % (Auto) 11.5 H Eos % (Auto) 7.4 H Baso % (Auto) 0.5 Absolute Neuts (auto) 3.6 Absolute Lymphs (auto) 1.05 Total Counted Not Reportable Nucleated RBC % 2.4 Diff Path Review Reviewed Absolute Retic 0.14 APTT Sodium 140 Potassium 3.9 Chloride 102 Carbon Dioxide 30.0 BUN 64 H Creatinine 1.17 H Estim Creat Clear Calc 37.54 Est GFR (MDRD) Af Amer 59 L Est GFR (MDRD) Non-Af 49 L BUN/Creatinine Ratio 54.7 H Glucose 206 H Calcium 7.6 L Phosphorus 2.1 L Iron 77 TIBC 140 L Iron Saturation 55.0 Ferritin 881 H Albumin 1.5 L 07/26/18 12:55 WBC RBC Hgb Hct MCV MCH MCHC RDW RDW Differential Plt Count MPV Immature Gran % (Auto) Neut % (Auto) Lymph % (Auto) [place] % (Auto) Eos % (Auto) Baso % (Auto) Absolute Neuts (auto) Absolute Lymphs (auto) Total Counted Nucleated RBC % Diff Path Review Absolute Retic APTT 35.8 Sodium Potassium Chloride Carbon Dioxide BUN Creatinine Estim Creat Clear Calc Est GFR (MDRD) Af Amer Est GFR (MDRD) Non-Af BUN/Creatinine Ratio Glucose Calcium Phosphorus Iron TIBC Iron Saturation Ferritin Albumin POC Glucose 07/26/18 07/26/18 07/25/18 11:56 06:50 22:32 POC Glucose 311 H 191 H 360 H 07/25/18 16:15 POC Glucose 245 H Assessment/Plan All Active Problems (Last Reviewed 07/21/18 @ 03:46 by Jaison Lopez MD) Hyperkalemia (Acute) Acute hyperkalemia (Acute) Acute kidney failure (Acute) Metabolic acidemia (Acute) Anemia (Acute) Abscess, wrist (Acute) Septic olecranon bursitis of right elbow (Acute) Skin necrosis (Acute) Infected decubitus ulcer (Acute) Olecranon bursitis of right elbow (Acute) Severe sepsis (Acute) Complicated urinary tract infection (Acute) Hematuria (Acute) Pressure ulcer of left buttock, stage 2 (Resolved) I have been consulted in conjunction with Dr. Dennison Impression: Acute on chronic anemia Plan: I have discussed this patient with Dr. Dennison. Dr. Dennison will plan to perform an upper and lower endoscopy tomorrow. Procedure details, risk and benefits have been explained. The patient has had the opportunity to ask and have questions answered. Patient verbally understands and agrees with the plan. We will plan to use Golytely as a bowel prep. NPO at midnight. Thank you for allowing us to participate int his patient's care. Code Visit Office Visits / Consults: [id number] IP Consult L3
--- NOTE | 2018-07-26 16:00 | CASEMGMT ---
Social Work: LOC faxed to [facility]. Will await LOC determination. JULIA Arrington
[2018-07-26 16:22] LABS: Bedside Glucose 214 mg/dL (70-110)
--- NOTE | 2018-07-26 16:59 | PCM.PN.ID ---
Patient Problems: Active and Suspected Problems (Last Reviewed 07/26/18 @ 15:47 by Alyssa Azevedo PA-C) Hyperkalemia (Acute) Acute hyperkalemia (Acute) Acute kidney failure (Acute) Metabolic acidemia (Acute) Anemia (Acute) Subjective: No fever, sleeping this afternoon. - Physical Exam General: No apparent distress Lungs: Clear to auscultation, Normal air movement Cardiovascular: Regular rate, Regular Rhythm Abdomen: Soft, Non Tender, Non-Distended Skin: Ulcer/ Wound - reviewed photos Vital Signs Temp Pulse Resp BP Pulse Ox 99.0 F 100 18 135/70 H 100 07/26/18 15:15 07/26/18 15:15 07/26/18 15:15 07/26/18 15:15 07/26/18 15:15 Oxygen Delivery Method Room Air Weight: 70 kg Body Mass Index (BMI) 26.9 Finger Stick Blood Glucose 154 Intake and Output for Last 24 Hours 07/24/18 07/25/18 07/26/18 23:59 23:59 23:59 Intake Total 1205 / 1205 885 / 885 435 / 435 Output Total 3625 / 3625 2200 / 2200 2450 / 2450 Balance -2420 / -2420 -1315 / -1315 -2014 / Microbiology Past 72 Hours 07/26/18 11:30 Stool Occult Blood (NEVAEH) - Final Stool 07/21/18 06:00 Blood Culture - Final Blood Culture (Wb) - Right Wrist No growth in 5 days. 07/21/18 06:00 Blood Culture - Final Blood Culture (Wb) - Arm Left No growth in 5 days. 07/21/18 05:00 Urine Culture - Final Urine Catheter - Catheter Presumptive C albicans Laboratory Tests Past 24 Hrs 07/26/18 07/26/18 07/26/18 05:25 05:25 05:25 WBC 6.0 RBC 2.89 L Hgb 8.7 L Hct 27.3 L MCV 94.5 MCH 30.1 MCHC 31.9 L RDW 18.9 H RDW Differential 62.5 H Plt Count 218 MPV 8.9 Immature Gran % (Auto) 2.200 H Neut % (Auto) 60.8 Lymph % (Auto) 17.6 L Daniels % (Auto) 11.5 H Eos % (Auto) 7.4 H Baso % (Auto) 0.5 Absolute Neuts (auto) 3.6 Absolute Lymphs (auto) 1.05 Total Counted Not Reportable Nucleated RBC % 2.4 Diff Path Review Reviewed Absolute Retic 0.14 APTT Sodium 140 Potassium 3.9 Chloride 102 Carbon Dioxide 30.0 BUN 64 H Creatinine 1.17 H Estim Creat Clear Calc 37.54 Est GFR (MDRD) Af Amer 59 L Est GFR (MDRD) Non-Af 49 L BUN/Creatinine Ratio 54.7 H Glucose 206 H Calcium 7.6 L Phosphorus 2.1 L Iron 77 TIBC 140 L Iron Saturation 55.0 Ferritin 881 H Albumin 1.5 L 07/26/18 12:55 WBC RBC Hgb Hct MCV MCH MCHC RDW RDW Differential Plt Count MPV Immature Gran % (Auto) Neut % (Auto) Lymph % (Auto) Daniels % (Auto) Eos % (Auto) Baso % (Auto) Absolute Neuts (auto) Absolute Lymphs (auto) Total Counted Nucleated RBC % Diff Path Review Absolute Retic APTT 35.8 Sodium Potassium Chloride Carbon Dioxide BUN Creatinine Estim Creat Clear Calc Est GFR (MDRD) Af Amer Est GFR (MDRD) Non-Af BUN/Creatinine Ratio Glucose Calcium Phosphorus Iron TIBC Iron Saturation Ferritin Albumin POC Glucose 07/26/18 07/26/18 07/26/18 16:16 11:56 06:50 POC Glucose 214 H 311 H 191 H 07/25/18 07/25/18 22:32 16:15 POC Glucose 360 H 245 H Medical Necessity - Tobacco Use Smoking Status: Never smoker Route of nutrition/ use of supplements: [] Nutritional Intake: [] IV Site: [] Rea Catheter: [] - Assessment/Plan Antibiotics: [] Assessment/Plan: [] Active and Suspected Problems (Last Reviewed 07/26/18 @ 15:47 by Alyssa Azevedo PA-C) Hyperkalemia (Acute) Acute hyperkalemia (Acute) Acute kidney failure (Acute) Metabolic acidemia (Acute) Anemia (Acute) septic shock with HIMANSHU - unclear source. Ucx only with less than 1000 of yeast. Other cxs are neg. Has been on fluc and meropenem. Cr much improved. sacral osteo - nearing end of course of iv abx. Polymicrobial growth last admit. Picc-related LUE DVT - I think she can likely go to ECF with picc removed, off of iv abx. Plan last admit was for long course of po abx given growth of actinomyces from bone cx. Will follow.
[2018-07-26 19:42] LABS: Partial Thromboplast Time 64.4 Seconds (24.1-36.2)
[2018-07-26 22:11] LABS: Hemoglobin A1c 7.6 % (4.2-6.3)
[2018-07-26] MEDS: Latanoprost 0.005% 1 Bottle 1 DRP EACH EYE (22:13)
[2018-07-26 22:35] LABS: Bedside Glucose 198 mg/dL (70-110)
[2018-07-27] VITALS (11 sets, daily range): BP systolic 96–115; BP diastolic 47–62; PULSE 85–96; RESP 17–18; TEMP 36.1–37.1; O2SAT 97–100
[2018-07-27 01:50] LABS: Partial Thromboplast Time 75.9 Seconds (24.1-36.2)
[2018-07-27] MEDS: 0.9% NaCl Peripheral Flush Adult/Peds IV ×2 (05:44→05:45)
[2018-07-27 06:10] LABS: Absolute Lymphocyte Count 1.45 X10^3/ul (0.83-4.51); Absolute Neutrophil Count 3.7 X10^3/uL (2.0-7.7); Basophil# 0.04 X10^3/uL; Basophil% 0.6 % (0-1); Eosinophil# 0.52 X10^3/uL; Eosinophils% 7.7 % (0-5); Hematocrit 27.3 % (37-47); Hemoglobin 8.6 g/dl (12.0-15.0); Lymphocyte # 1.45 X10^3/ul (4.0); Lymphocyte % 21.4 % (19-41); Mean Corp Hgb Conc 31.5 g/gl (32-36); Mean Corpuscular Hgb 29.8 pg (27.0-32.0); Mean Corpuscular Volume 94.5 fL (81-99); Monocyte# 0.97 X10^3/uL; Monocyte% 14.3 % (0-10); Neutrophil # 3.68 X10^3/uL (2.7-7.7); Neutrophil % 54.5 % (47-70); Platelet Count 208 K/mm3 (150-450); RBC Distribution Width CV 19.3 % (11.6-14.6); RBC Distribution Width SD 62.9 fl (35.1-43.9); Red Blood Count 2.89 M/mm3 (4.2-5.4); White Blood Count 6.8 K/mm3 (4.4-11.0)
[2018-07-27 06:20] LABS: POSITIVE COUNT NO; POSITIVE DIFFERENTIAL NO; POSITIVE MORPHOLOGY NO
[2018-07-27 06:30] LABS: BUN 55 mg/dL (7-18); Creatinine, Serum 1.08 mg/dL (0.55-1.02); EST Glomerular Filtration Rate 53 mL/min (>60); Estimated Creatinine Clearance 40.67 ml/min; Glucose 155 mg/dL (74-106)
[2018-07-27 06:31] LABS: Anion Gap 6 (5-15); BUN/Creat Ratio 50.9 RATIO (10-20); Calcium,Total 7.5 mg/dL (8.5-10.1); Chloride 105 mmol/L (98-107); Est Glom Filt Rate - Afr Amer 65 mL/min (>60); Potassium 4.2 mmol/L (3.5-5.1); Sodium Level 139 mmol/L (136-145)
[2018-07-27 06:55] LABS: Bedside Glucose 159 mg/dL (70-110)
[2018-07-27 07:10] LABS: International Normalized Ratio 1.1; Prothrombin Time (Protime)PT. 13.5 SECONDS (11.7-14.9)
--- NOTE | 2018-07-27 10:19 | PCM.PN.ID ---
Patient Problems: Active and Suspected Problems (Last Reviewed 07/26/18 @ 15:47 by Alyssa Azevedo PA-C) Hyperkalemia (Acute) Acute hyperkalemia (Acute) Acute kidney failure (Acute) Metabolic acidemia (Acute) Anemia (Acute) - Physical Exam Vital Signs Temp Pulse Resp BP Pulse Ox 97.9 F 96 18 114/61 97 07/27/18 08:15 07/27/18 08:15 07/27/18 08:15 07/27/18 08:15 07/27/18 08:15 Oxygen Delivery Method Room Air Weight: 67.8 kg Body Mass Index (BMI) 27.3 Finger Stick Blood Glucose 154 Intake and Output for Last 24 Hours 07/25/18 07/26/18 07/27/18 23:59 23:59 23:59 Intake Total 885 / 885 583 / 583 210 / 210 Output Total 2200 / 2200 3400 / 3400 2600 / 2600 Balance -1315 / -1315 -2817 / -2817 -2390 / -2390 Microbiology Past 72 Hours 07/26/18 11:30 Stool Occult Blood (NEVAEH) - Final Stool 07/21/18 06:00 Blood Culture - Final Blood Culture (Wb) - Right Wrist No growth in 5 days. 07/21/18 06:00 Blood Culture - Final Blood Culture (Wb) - Arm Left No growth in 5 days. 07/21/18 05:00 Urine Culture - Final Urine Catheter - Catheter Presumptive C albicans Laboratory Tests Past 24 Hrs 07/26/18 07/26/18 07/26/18 05:25 05:25 05:25 WBC RBC Hgb Hct MCV MCH MCHC RDW RDW Differential Plt Count MPV Immature Gran % (Auto) Neut % (Auto) Lymph % (Auto) [place] % (Auto) Eos % (Auto) Baso % (Auto) Absolute Neuts (auto) Absolute Lymphs (auto) Total Counted Diff Path Review Reviewed PT INR APTT Sodium Potassium Chloride Carbon Dioxide Anion Gap BUN Creatinine Estim Creat Clear Calc Est GFR (MDRD) Af Amer Est GFR (MDRD) Non-Af BUN/Creatinine Ratio Glucose Hemoglobin A1c 7.6 H Calcium Iron 77 TIBC 140 L Iron Saturation 55.0 Ferritin 881 H 07/26/18 07/26/18 07/27/18 12:55 19:15 01:30 WBC RBC Hgb Hct MCV MCH MCHC RDW RDW Differential Plt Count MPV Immature Gran % (Auto) Neut % (Auto) Lymph % (Auto) [place] % (Auto) Eos % (Auto) Baso % (Auto) Absolute Neuts (auto) Absolute Lymphs (auto) Total Counted Diff Path Review PT INR APTT 35.8 64.4 H 75.9 H Sodium Potassium Chloride Carbon Dioxide Anion Gap BUN Creatinine Estim Creat Clear Calc Est GFR (MDRD) Af Amer Est GFR (MDRD) Non-Af BUN/Creatinine Ratio Glucose Hemoglobin A1c Calcium Iron TIBC Iron Saturation Ferritin 07/27/18 07/27/18 07/27/18 05:45 05:45 05:45 WBC 6.8 RBC 2.89 L Hgb 8.6 L Hct 27.3 L MCV 94.5 MCH 29.8 MCHC 31.5 L RDW 19.3 H RDW Differential 62.9 H Plt Count 208 MPV 9.0 Immature Gran % (Auto) 1.500 H Neut % (Auto) 54.5 Lymph % (Auto) 21.4 [place] % (Auto) 14.3 H Eos % (Auto) 7.7 H Baso % (Auto) 0.6 Absolute Neuts (auto) 3.7 Absolute Lymphs (auto) 1.45 Total Counted Not Reportable Diff Path Review PT 13.5 INR 1.1 APTT 51.0 H Sodium 139 Potassium 4.2 Chloride 105 Carbon Dioxide 28.0 Anion Gap 6 BUN 55 H Creatinine 1.08 H Estim Creat Clear Calc 40.67 Est GFR (MDRD) Af Amer 65 Est GFR (MDRD) Non-Af 53 L BUN/Creatinine Ratio 50.9 H Glucose 155 H Hemoglobin A1c Calcium 7.5 L Iron TIBC Iron Saturation Ferritin POC Glucose 07/27/18 07/26/18 07/26/18 06:50 22:09 16:16 POC Glucose 159 H 198 H 214 H 07/26/18 11:56 POC Glucose 311 H Medical Necessity - Tobacco Use Smoking Status: Never smoker Route of nutrition/ use of supplements: [] Nutritional Intake: [] IV Site: [] Era Catheter: [] - Assessment/Plan Antibiotics: [] Assessment/Plan: [] Active and Suspected Problems (Last Reviewed 07/26/18 @ 15:47 by Alyssa Azevedo PA-C) Hyperkalemia (Acute) Acute hyperkalemia (Acute) Acute kidney failure (Acute) Metabolic acidemia (Acute) Anemia (Acute) septic shock with HIMANSHU - unclear source. Resolved. Ucx only with less than 1000 of yeast. Other cxs are neg. Has been on fluc and meropenem. Cr much improved. sacral osteo - nearing end of course of iv abx. Polymicrobial growth last admit. Ulcer doing much better, d/w wound care. Picc-related LUE DVT - OK to ECF with picc removed, off of iv abx, on 6 month course of po amoxicillin given growth of actinomyces from bone cx. Will follow. Gone to endoscopy this AM.
--- NOTE | 2018-07-27 10:33 | OP.ENDO_ITS ---
07/27/2018 Phani Mackenzie MD [address] [phone] Re : Upper GI endoscopy procedure for Althea Kasper Dear Dr. Mackenzie This procedure was performed on Friday, July 27, 2018. My impressions and recommendations are as follows: Impressions : - Normal esophagus. - Z-line regular, 40 cm from the incisors. - Normal stomach. No specimens collected. - Normal examined duodenum. No specimens collected. Recommendations : - Return [facility] to [facility]. - Resume previous diet. - Continue present medications. - Repeat upper endoscopy PRN. - Return to primary care physician (date not yet determined). My findings are described in the full procedure note, which is enclosed. If I can be of further assistance, please feel free to contact me at Doctor phone number(s): , Fax: [phone], Work: . Sincerely, MD Javid Guadarrama MD 07/27/2018 10:33:10 AM This report has been signed electronically.
--- NOTE | 2018-07-27 10:39 | PCM.PN.HOSP ---
Subjective: Patient seen and examined this morning. She has no complaints. Review of systems otherwise negative. She is for EGD and colonoscopy this morning. Labs and vitals reviewed. Vitals/I&O's: Vital Signs Temp Pulse Resp BP Pulse Ox 97.9 F 96 18 114/61 97 07/27/18 08:15 07/27/18 08:15 07/27/18 08:15 07/27/18 08:15 07/27/18 08:15 Oxygen Delivery Method Room Air Weight: 149 lb 7.574 oz Body Mass Index (BMI) 27.3 Finger Stick Blood Glucose 154 Intake and Output for Last 24 Hours 07/25/18 07/26/18 07/27/18 23:59 23:59 23:59 Intake Total 885 / 885 583 / 583 210 / 210 Output Total 2200 / 2200 3400 / 3400 2600 / 2600 Balance -1315 / -1315 -2817 / -2817 -2390 / -2390 General: Alert, Oriented x3, Cooperative HEENT: Atraumatic, PERRLA, EOMI, Normocephalic Neck: Supple, No JVD, Negative Carotid Bruits Lungs: Clear to auscultation, No rhonchi, No wheeze, No rales, Diminished Cardiovascular: Regular rate, Regular Rhythm, Normal S1, Normal S2, No murmurs Abdomen: Bowel Sounds Present, Soft, Non Tender, Non-Distended; colostomy bag in place Extremities: Capillary Refill Less than 3 Seconds, Edema Skin: No rashes stage 4 decubitus ulcers on buttocks and over ischial bones. Musculoskeletal: Arthritic Changes, Muscle Wasting, Tenderness - Mild tenderness along the line of left PICC line Neurological: Cranial nerves II-XII grossly intact, - - Chronic mild bilateral lower extremity edema Psych/Mental Status: Normal Affect, Appropriate Microbiology Past 72 Hours 07/26/18 11:30 Stool Stool Occult Blood (NEVAEH) - Final 07/21/18 06:00 Blood Culture (Wb) - Right Wrist Blood Culture - Final No growth in 5 days. 07/21/18 06:00 Blood Culture (Wb) - Arm Left Blood Culture - Final No growth in 5 days. 07/21/18 05:00 Urine Catheter - Catheter Urine Culture - Final Presumptive C albicans Laboratory Results 07/26/18 05:25: Diff Path Review Reviewed 07/26/18 05:25: Iron 77, TIBC 140 L, Iron Saturation 55.0, Ferritin 881 H 07/26/18 05:25: Hemoglobin A1c 7.6 H 07/26/18 11:56: POC Glucose 311 H 07/26/18 12:55: APTT 35.8 07/26/18 16:16: POC Glucose 214 H 07/26/18 19:15: APTT 64.4 H 07/26/18 22:09: POC Glucose 198 H 07/27/18 01:30: APTT 75.9 H 07/27/18 05:45: WBC 6.8, RBC 2.89 L, Hgb 8.6 L, Hct 27.3 L, MCV 94.5, MCH 29.8, MCHC 31.5 L, RDW 19.3 H, RDW Differential 62.9 H, Plt Count 208, MPV 9.0, Immature Gran % (Auto) 1.500 H, Neut % (Auto) 54.5, Lymph % (Auto) 21.4, [place] % (Auto) 14.3 H, Eos % (Auto) 7.7 H, Baso % (Auto) 0.6, Absolute Neuts (auto) 3.7, Absolute Lymphs (auto) 1.45, Total Counted Not Reportable 07/27/18 05:45: Sodium 139, Potassium 4.2, Chloride 105, Carbon Dioxide 28.0, Anion Gap 6, BUN 55 H, Creatinine 1.08 H, Estim Creat Clear Calc 40.67, Est GFR (MDRD) Af Amer 65, Est GFR (MDRD) Non-Af 53 L, BUN/Creatinine Ratio 50.9 H, Glucose 155 H, Calcium 7.5 L 07/27/18 05:45: PT 13.5, INR 1.1, APTT 51.0 H 07/27/18 06:50: POC Glucose 159 H Current Medications Dextrose (D50w Syringe) 0 gm IV X1 PRN; Protocol PRN Reason: Hypoglycemia Fluconazole (Diflucan) 200 mg PO DAILY [facility] Stop: 07/29/18 10:01 Last Admin: 07/26/18 09:05 Dose: 200 mg Furosemide (Lasix) 20 mg PO DAILY KEKE Gabapentin (Neurontin) 100 mg PO TIDCM [facility] Last Admin: 07/27/18 08:50 Dose: Not Given Glucagon () 1 mg IM .X1 PRN PRN Reason: Hypoglycemia Heparin Sodium (Porcine) (Heparin Na) 0 unit IV UD PRN; Protocol Sodium Chloride () 250 mls @ 15 mls/hr IV .[id number] PRN PRN Reason: SALINE FLUSH Last Admin: 07/22/18 12:04 Dose: 15 mls/hr Meropenem 500 mg/ Sodium (Chloride) 60 mls @ 100 mls/hr IV Q8 [facility] Stop: 07/29/18 22:35 Last Admin: 07/27/18 05:24 Dose: 100 mls/hr Heparin Sodium/Dextrose () 25,000 units in 250 mls @ 10 mls/hr IV .Q25H [facility]; Protocol Last Admin: 07/26/18 13:04 Dose: 10 mls/hr Insulin Human Lispro (Humalog Kwikpen (Bkc)) 0 unit SC ACHS [facility]; Protocol Last Admin: 07/27/18 08:49 Dose: Not Given Latanoprost (Xalatan Opthalmic) 1 drop EACH EYE QHS [facility] Last Admin: 07/26/18 22:13 Dose: 1 drop Metoprolol Tartrate (Lopressor (Beta Abraham)) 25 mg PO BID [facility] Last Admin: 07/26/18 22:15 Dose: 25 mg Nutritional Formula (Sigifredo - [place] Flavor) 1 packet PO BIDCM [facility] Last Admin: 07/27/18 08:50 Dose: Not Given Nutritional Formula (Lactose Free) (Glucerna Shake) 120 ml PO 4X/DAY [facility] Last Admin: 07/27/18 08:50 Dose: Not Given Oxycodone HCl (Oxyir) 5 mg PO Q4H PRN PRN PRN Reason: SEVERE PAIN (6-10/10) Last Admin: 07/25/18 09:14 Dose: 5 mg Polyethylene Glycol (Miralax) 17 gm PO DAILY [facility] Last Admin: 07/26/18 09:06 Dose: Not Given Potassium Chloride (K-Dur) 20 meq PO BIDCM [facility] Last Admin: 07/26/18 17:04 Dose: 20 meq Sodium Chloride () 5 - 15 ml IV UD PRN PRN Reason: SALINE FLUSH Last Admin: 07/27/18 05:45 Dose: 10 ml Timolol Maleate (Timoptic) 5 drop EACH EYE BID [facility] Last Admin: 07/26/18 22:13 Dose: Not Given Medical Necessity - Tobacco Use Smoking Status: Never smoker Assessment/Plan All Active Problems (Last Reviewed 07/26/18 @ 15:47 by Alyssa Azevedo PA-C) Hyperkalemia (Acute) Acute hyperkalemia (Acute) Acute kidney failure (Acute) Metabolic acidemia (Acute) Anemia (Acute) Abscess, wrist (Acute) Septic olecranon bursitis of right elbow (Acute) Skin necrosis (Acute) Infected decubitus ulcer (Acute) Olecranon bursitis of right elbow (Acute) Severe sepsis (Acute) Complicated urinary tract infection (Acute) Hematuria (Acute) Pressure ulcer of left buttock, stage 2 (Resolved) 1. Acute hyperkalemia likely medication induced resolved. nephro on board 2. Hypokalemia: Likely due to Kayexalate administration. resolved with potassium administration. 3. RUE clots: at site of PICC line. Currently on heparin drip. for EGD and colonoscopy today. Will start on oral anticoagulant based on GI workup findings. Per ID, ok to remove PICC line 4. Acute on chronic anemia: s/p transfusion of 2 units of PRBCs Hb today is 8.2 today for EGD and colonoscopy today fecal occult blood test was negative. 5. Septic shock likely due to UTI off pressors blood and urine cultures showed no growth on IV meropenem and PO fluconazole ID on board. 6. Acute renal failure due to vancomycin toxicity resolved. Cr is down to 1.08; baseline is ~ 0.3 nephrology on board 7. Hypomagnesemia: resolved. 8. Hypophosphatemia: on Neutraphos packets. 9. Lactic acidosis: Lactic acid is 6.4 likely due to septic shock. Now weaned off levophed. 10. Sacral decubitus ulcers: Present on admission. stage 4. WIll monitor. Wound care on board. 11. Diabetes mellitus: Metformin on hold on account of [place] and hypoglycemia. ISS. Accuchecks ACHS 12. Hypertension/ hyperlipidemia: Blood pressure medications on hold on account of hypotension. On statin. 13. Chronic osteomyelitis: Has chronic osteomyelitis of sacral wounds. wound care on board. 15. Malnutrition: Albumin is only 1.5. This is likely due to patient's multiple comorbidities. Dietary on board 14. Nonanion gap metabolic acidosis: resolved. Received bicarb drip. nephro on board. Likely due to HIMANSHU. Bicarb now 28 DVT prophylaxis:on heparin drip Code status: DNRCCA Disposition: to DC To SNF today if EGD/colonoscopy is negative. Code Visit Inpatient E&M: 55502 Subs Hosp L3
--- NOTE | 2018-07-27 10:40 | OP.ENDO_ITS ---
07/27/2018 Phani Mackenzie MD [address] [id number] Re : Colonoscopy procedure for Althea Kasper Dear Dr. Mackenzie This procedure was performed on Friday, July 27, 2018. My impressions and recommendations are as follows: Impressions : - The entire examined colon is normal. No specimens collected. - The examination was otherwise normal. Recommendations : - [facility]. - Resume previous diet. - Continue present medications. - Repeat colonoscopy in 10 years for screening purposes. - Return to primary care physician (date not yet determined). My findings are described in the full procedure note, which is enclosed. If I can be of further assistance, please feel free to contact me at Doctor phone number(s): , Fax: [phone], Work: . Sincerely, MD Javid Guadarrama MD 07/27/2018 10:39:56 AM This report has been signed electronically.
--- NOTE | 2018-07-27 10:43 | PN_ITS ---
Subjective: Patient seen and examined this morning. She has no complaints. Review of systems otherwise negative. She is for EGD and colonoscopy this morning. Labs and vitals reviewed. Vitals/I&O's: Vital Signs Temp Pulse Resp BP Pulse Ox 97.9 F 96 18 114/61 97 07/27/18 08:15 07/27/18 08:15 07/27/18 08:15 07/27/18 08:15 07/27/18 08:15 Oxygen Delivery Method Room Air Weight: 149 lb 7.574 oz Body Mass Index (BMI) 27.3 Finger Stick Blood Glucose 154 Intake and Output for Last 24 Hours 07/25/18 07/26/18 07/27/18 23:59 23:59 23:59 Intake Total 885 / 885 583 / 583 210 / 210 Output Total 2200 / 2200 3400 / 3400 2600 / 2600 Balance -1315 / -1315 -2817 / -2817 -2390 / -2390 General: Alert, Oriented x3, Cooperative HEENT: Atraumatic, PERRLA, EOMI, Normocephalic Neck: Supple, No JVD, Negative Carotid Bruits Lungs: Clear to auscultation, No rhonchi, No wheeze, No rales, Diminished Cardiovascular: Regular rate, Regular Rhythm, Normal S1, Normal S2, No murmurs Abdomen: Bowel Sounds Present, Soft, Non Tender, Non-Distended; colostomy bag in place Extremities: Capillary Refill Less than 3 Seconds, Edema Skin: No rashes stage 4 decubitus ulcers on buttocks and over ischial bones. Musculoskeletal: Arthritic Changes, Muscle Wasting, Tenderness - Mild tenderness along the line of left PICC line Neurological: Cranial nerves II-XII grossly intact, - - Chronic mild bilateral lower extremity edema Psych/Mental Status: Normal Affect, Appropriate Microbiology Past 72 Hours 07/26/18 11:30 Stool Stool Occult Blood (NEVAEH) - Final 07/21/18 06:00 Blood Culture (Wb) - Right Wrist Blood Culture - Final No growth in 5 days. 07/21/18 06:00 Blood Culture (Wb) - Arm Left Blood Culture - Final No growth in 5 days. 07/21/18 05:00 Urine Catheter - Catheter Urine Culture - Final Presumptive C albicans Laboratory Results 07/26/18 05:25: Diff Path Review Reviewed 07/26/18 05:25: Iron 77, TIBC 140 L, Iron Saturation 55.0, Ferritin 881 H 07/26/18 05:25: Hemoglobin A1c 7.6 H 07/26/18 11:56: POC Glucose 311 H 07/26/18 12:55: APTT 35.8 07/26/18 16:16: POC Glucose 214 H 07/26/18 19:15: APTT 64.4 H 07/26/18 22:09: POC Glucose 198 H 07/27/18 01:30: APTT 75.9 H 07/27/18 05:45: WBC 6.8, RBC 2.89 L, Hgb 8.6 L, Hct 27.3 L, MCV 94.5, MCH 29.8, MCHC 31.5 L, RDW 19.3 H, RDW Differential 62.9 H, Plt Count 208, MPV 9.0, Immature Gran % (Auto) 1.500 H, Neut % (Auto) 54.5, Lymph % (Auto) 21.4, [place] % (Auto) 14.3 H, Eos % (Auto) 7.7 H, Baso % (Auto) 0.6, Absolute Neuts (auto) 3.7, Absolute Lymphs (auto) 1.45, Total Counted Not Reportable 07/27/18 05:45: Sodium 139, Potassium 4.2, Chloride 105, Carbon Dioxide 28.0, Anion Gap 6, BUN 55 H, Creatinine 1.08 H, Estim Creat Clear Calc 40.67, Est GFR (MDRD) Af Amer 65, Est GFR (MDRD) Non-Af 53 L, BUN/Creatinine Ratio 50.9 H, Glucose 155 H, Calcium 7.5 L 07/27/18 05:45: PT 13.5, INR 1.1, APTT 51.0 H 07/27/18 06:50: POC Glucose 159 H Current Medications Dextrose (D50w Syringe) 0 gm IV X1 PRN; Protocol PRN Reason: Hypoglycemia Fluconazole (Diflucan) 200 mg PO DAILY [facility] Stop: 07/29/18 10:01 Last Admin: 07/26/18 09:05 Dose: 200 mg Furosemide (Lasix) 20 mg PO DAILY KEKE Gabapentin (Neurontin) 100 mg PO TIDCM [facility] Last Admin: 07/27/18 08:50 Dose: Not Given Glucagon () 1 mg IM .X1 PRN PRN Reason: Hypoglycemia Heparin Sodium (Porcine) (Heparin Na) 0 unit IV UD PRN; Protocol Sodium Chloride () 250 mls @ 15 mls/hr IV .[id number] PRN PRN Reason: SALINE FLUSH Last Admin: 07/22/18 12:04 Dose: 15 mls/hr Meropenem 500 mg/ Sodium (Chloride) 60 mls @ 100 mls/hr IV Q8 [facility] Stop: 07/29/18 22:35 Last Admin: 07/27/18 05:24 Dose: 100 mls/hr Heparin Sodium/Dextrose () 25,000 units in 250 mls @ 10 mls/hr IV .Q25H [facility]; Protocol Last Admin: 07/26/18 13:04 Dose: 10 mls/hr Insulin Human Lispro (Humalog Kwikpen (Bkc)) 0 unit SC ACHS [facility]; Protocol Last Admin: 07/27/18 08:49 Dose: Not Given Latanoprost (Xalatan Opthalmic) 1 drop EACH EYE QHS [facility] Last Admin: 07/26/18 22:13 Dose: 1 drop Metoprolol Tartrate (Lopressor (Beta Abraham)) 25 mg PO BID [facility] Last Admin: 07/26/18 22:15 Dose: 25 mg Nutritional Formula (Sigifredo - [place] Flavor) 1 packet PO BIDCM [facility] Last Admin: 07/27/18 08:50 Dose: Not Given Nutritional Formula (Lactose Free) (Glucerna Shake) 120 ml PO 4X/DAY [facility] Last Admin: 07/27/18 08:50 Dose: Not Given Oxycodone HCl (Oxyir) 5 mg PO Q4H PRN PRN PRN Reason: SEVERE PAIN (6-10/10) Last Admin: 07/25/18 09:14 Dose: 5 mg Polyethylene Glycol (Miralax) 17 gm PO DAILY [facility] Last Admin: 07/26/18 09:06 Dose: Not Given Potassium Chloride (K-Dur) 20 meq PO BIDCM [facility] Last Admin: 07/26/18 17:04 Dose: 20 meq Sodium Chloride () 5 - 15 ml IV UD PRN PRN Reason: SALINE FLUSH Last Admin: 07/27/18 05:45 Dose: 10 ml Timolol Maleate (Timoptic) 5 drop EACH EYE BID [facility] Last Admin: 07/26/18 22:13 Dose: Not Given Medical Necessity - Tobacco Use Smoking Status: Never smoker Assessment/Plan All Active Problems (Last Reviewed 07/26/18 @ 15:47 by Alyssa Azevedo PA-C) Hyperkalemia (Acute) Acute hyperkalemia (Acute) Acute kidney failure (Acute) Metabolic acidemia (Acute) Anemia (Acute) Abscess, wrist (Acute) Septic olecranon bursitis of right elbow (Acute) Skin necrosis (Acute) Infected decubitus ulcer (Acute) Olecranon bursitis of right elbow (Acute) Severe sepsis (Acute) Complicated urinary tract infection (Acute) Hematuria (Acute) Pressure ulcer of left buttock, stage 2 (Resolved) 1. Acute hyperkalemia likely medication induced * resolved. * nephro on board * 2. Hypokalemia: Likely due to Kayexalate administration. resolved with potassium administration. * 3. RUE clots: * at site of PICC line. * Currently on heparin drip. for EGD and colonoscopy today. * Will start on oral anticoagulant based on GI workup findings. * Per ID, ok to remove PICC line * 4. Acute on chronic anemia: * s/p transfusion of 2 units of PRBCs * Hb today is 8.2 today * for EGD and colonoscopy today * fecal occult blood test was negative. * 5. Septic shock likely due to UTI * off pressors * blood and urine cultures showed no growth * on IV meropenem and PO fluconazole * ID on board. * 6. Acute renal failure due to vancomycin toxicity * resolved. Cr is down to 1.08; baseline is ~ 0.3 * nephrology on board * 7. Hypomagnesemia: resolved. 8. Hypophosphatemia: on Neutraphos packets. 9. Lactic acidosis: Lactic acid is 6.4 likely due to septic shock. Now weaned off levophed. 10. Sacral decubitus ulcers: Present on admission. stage 4. WIll monitor. Wound care on board. * 11. Diabetes mellitus: Metformin on hold on account of [place] and hypoglycemia. ISS. Accuchecks ACHS 12. Hypertension/ hyperlipidemia: Blood pressure medications on hold on account of hypotension. On statin. 13. Chronic osteomyelitis: Has chronic osteomyelitis of sacral wounds. wound care on board. 15. Malnutrition: Albumin is only 1.5. This is likely due to patient's multiple comorbidities. Dietary on board 14. Nonanion gap metabolic acidosis: resolved. Received bicarb drip. nephro on board. Likely due to HIMANSHU. Bicarb now 28 DVT prophylaxis:on heparin drip Code status: DNRCCA Disposition: to DC To SNF today if EGD/colonoscopy is negative. Code Visit Inpatient E&M: 08210 [facility] Hosp L3
[2018-07-27 12:06] LABS: Bedside Glucose 160 mg/dL (70-110)
--- NOTE | 2018-07-27 12:15 | CASEMGMT ---
Social Work: Skilled LOC determination received from [facility]. TC to [facility]. Transport by cot scheduled for 3:00pm. TC to Mary at [facility] to notify that patient will be discharged today. Mary aware that transport is arriving at [facility] at 3:00pm. Will fax orders and med list once completed. Spoke with patient and visitors in room. Patient aware that transport will be picking patient up at 3:00pm to transport to [facility]. RNCM, hospitalist, community relations coordinator and patient's nurse all aware of patient discharge to [facility] today with transport arriving at 3:00pm PLAN: Patient to be discharged to [facility] today on a skilled LOC. JULIA Arrington
[2018-07-27] MEDS: Gabapentin 100 MG Capsule PO (12:21)
[2018-07-27] MEDS: Insulin Lispro 100 UNIT/ML INSULN.PEN SC (12:21)
[2018-07-27] MEDS: Metoprolol Tartrate 25 MG Tablet PO (12:21)
[2018-07-27] MEDS: Furosemide 20 MG Tablet PO (12:22)
[2018-07-27] MEDS: Na Biphos/Potassium Phosphate PACKET 1 PACKET PO (12:22)
[2018-07-27] MEDS: Fluconazole 100 MG Tablet 200 MG PO (12:22)
[2018-07-27] MEDS: Timolol 0.5% 5ML OPTH.BTL 5 DRP EACH EYE (12:22)
--- NOTE | 2018-07-27 13:25 | PCM.TXEXTCAR ---
- Diet 07/27/18 11:32 Diet: Carbohydrate Controlled Type of Dietary Supplement:: sigifredo once daily Is pt able to select menu?: No Diet Comments: LOW POTASSIUM - Routine Orders/Code Status Enema Type: Fleetz Enema Frequency: Daily PRN Suppository Type: Dulcolax 10mg Suppository Frequency: Daily PRN O2 Frequency: PRN Keep PO Greater than or Equal to (%): 92 Code Status: DNRCC-A - Wound(s) left hip Wound Type: Pressure Injury Left gluteal fold Wound Type: Pressure Injury sacral/coccyx Wound Type: Pressure Injury right gluteal fold Wound Type: Pressure Injury right hip Wound Type: Pressure Injury right lateral upper thigh Wound Type: Pressure Injury right upper thigh #2 Wound Type: Abrasion right upper thigh #3 Wound Type: Abrasion right upper thigh #4 Wound Type: Abrasion right groin Wound Type: Abrasion right ischium Wound Type: Pressure Injury Dressing Change: applied KCI wound VAC sacrum Wound Type: Pressure Injury Dressing Change: applied KCI wound VAC left ischium Wound Type: Pressure Injury Dressing Change: applied KCI wound VAC - Therapies Weight Bearing: Weight bearing as tolerated Physical Therapy: Eval and Treat Occupational Therapy: Eval and Treat - Allergies/Procedures Done in Hospital Allergies/Adverse Reactions: Allergies No Known Allergies Allergy (Verified 07/20/18 20:02) Procedures: PICC line placement - Type of Care/Length of Stay Estimated LOS: More Than 30 Days Type of Care Needed: Skilled Rehab Potential: Fair Prognosis: Fair - Additional Orders/Day of Discharge Day of Discharge: 07/26/18 - Dietary and Speech Recommendations Dietitian Recommendations/Changes: Rec diet change to Cardiac/low sodium, CHO Control w/ fluid restriction as indicated. Will order glucerna shake 120 cc 4x/day w/ medpass to help w/ skin healing. Rec continue 1 packet Sigifredo BID. - Follow Up Care Primary Care Physician: Phani Mackenzie MD [Primary Care Provider] - Please follow up with your Primary Care Physician in: one week Please Follow Up With: Ave Rios MD When: 1-2 weeks Please Follow Up With: Denny Biggs MD When: 1-2 weeks Please Follow Up With: Joseph Padilla MD When: 1-2 weeks Please Follow Up With: Javid Ford MD When: 1-2 weeks
--- NOTE | 2018-07-27 13:27 | PCM.DC.SUM ---
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 Right ischial pressure sore, stage 4 (Chronic) Open wound of left thigh (Chronic) traumatic skin tear posterior thigh Incompetent urethral closure mechanism (Chronic) Neurogenic bladder (Chronic) Stage II pressure ulcer (Chronic) Chronic suprapubic catheter (Chronic) Diabetes mellitus type 2 in nonobese (Chronic) Hypertension (Chronic) Gout (Chronic) with arthropathy Pressure ulcer of left buttock, stage 3 (Chronic) left lower buttock/upper thigh area Diabetes mellitus (Chronic) Pressure ulcer of right buttock, stage 3 (Chronic) Diabetic neuropathy, type II diabetes mellitus (Chronic) Malnutrition (Chronic) Back pain (Chronic) Arthritis (Chronic) 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 significance to followup Anemia of chronic disease (Chronic) Physical deconditioning (Chronic) Dupuytren's contracture of right hand (Chronic) Spinal stenosis (Chronic) Hyperlipidemia (Chronic) RP (rectal prolapse) (Chronic) Hospital Course and Treatment Imaging Results: Diagnostic Data Chest X-Ray 07/21/18 05:45 IMPRESSION: 1. No acute cardiopulmonary disease. 2. Good position of the left side PICC line. No pneumothorax. at 0619 Reported and signed by: Norberto Juárez MD Electronically Signed: Norberto Juárez, at 6:18 EDT Tel , Service support , Consultations 07/21/18 01:08 Consult: Onc/Wound/fusing machine operator Routine Comment: Reason for Consult:: WOUND VAC AND OSTOMY Operations: - - 2-D Echocardiogram, Wound Vac placement, - - Excision infected necrotic sacral pressure sore stage IV with partial osteotomy for osteomyelitis. Excision left ischial pressure sore stage IV with partial ostectomy for osteomyelitis. Excision right ischial pressure sore stage IV with partial ostectomy for osteomyelitis. Open irrigation and debridement of right elbow bursa and subcutaneous abscess of wrist. PICC line placement. Summary of Care Provided: The patient is a 68 year old F with an extensive past medical history as listed. She was admitted from her senior living with complaint of hyperkalemia. She was being treated with vancomycin and Zosyn her senior living on account of infection of her sacral and ischial decubitus ulcers. Labs taken in the ED showed potassium of 9.8 and had been 9.1 in her senior living. EKG showed no acute hyperkalemic changes. She was given calcium gluconate, insulin and dextrose as well as Kayexalate and admitted to be managed for hyperkalemia. Admission, she was found to have SIRS criteria was managed for sepstic shock likely due to infected decubitus ulcers and UTI. She was started on IV meropenem and PO fluconazole. Tank Tender was consulted. She was also found to be in AK I and nephrology was consulted. ID was also on board. Blood cultures were obtained. Hyperkalemia resolved with treatment and she eventually became hypokalemic which was likely due to Kayexalate administration. This resolved with replacement of potassium. Of note, patient became anemic and hemoglobin dropped around 6.7 necessitating transfusion of 2 units of blood. She also developed non-anion gap metabolic acidosis which is likely due to AK I resolved with initiation of bicarb drip. patient stabilized and was transferred to the progressive care unit for further management. Patient had a PICC line in place before admission for IV antibiotics in the senior living and this was changed when she came in. Subsequently complained of pain along the site of the PICC line insertion and a duplex done showed a clot in the subclavian artery. Patient had had a history of positive fecal occult blood in light of her anemia which was initially thought to be due to blood loss from her decubitus ulcers, she had not been worked up fully for anemia. It must be noted that when patient came in she was DNR CC but subsequently switched to DNR CODE STATUS to DNR CCA. General surgery was therefore consulted for GI workup. She had EGD and colonoscopy on 07/27/2018 which was negative. She was started on Eliquis for the clots in the subclavian vein. Patient remained stable and per discussion with ID, IV antibiotics were stopped and PICC line was discontinued and removed. She was discharged to her senior living on 07/27/2018 with a prescription for p.o. Eliquis for which she is to take 10 mg twice daily for 7 days with a stop date of 08/02/18, And then to continue 5 mg twice daily for treatment for the clot. She is to have weekly BMP to follow-up her potassium level and all potassium supplementation is to be stopped if potassium is elevated. She is also to continue following up with wound care for decubitus ulcers. Is also to follow-up with her primary care doctor. Patient seen and examined prior to discharge. She had no complaints and felt well. Review of systems otherwise negative. Labs and vitals reviewed. Home medication reviewed and reconciled. On examination Vital Signs Height 5 ft 3 in Weight: 149 lb 7.574 oz Weight in Pounds 149.5 lbs Pulse Ox 98 Temperature 98.6 F Pulse Rate 94 Respiratory Rate 18 Blood Pressure [BP] 109/70 Blood Pressure 105/47 Blood Pressure Position [BP] Semi-Fowlers Blood Pressure Position Semi-Fowlers General: Alert, Oriented x3, Cooperative HEENT: Atraumatic, PERRLA, EOMI, Normocephalic Neck: Supple, No JVD, Negative Carotid Bruits Lungs: Clear to auscultation, No rhonchi, No wheeze, No rales, Diminished Cardiovascular: Regular rate, Regular Rhythm, Normal S1, Normal S2, No murmurs Abdomen: Bowel Sounds Present, Soft, Non Tender, Non-Distended; colostomy bag in place Extremities: Capillary Refill Less than 3 Seconds, Edema Skin: No rashes stage 4 decubitus ulcers on buttocks and over ischial bones. Musculoskeletal: Arthritic Changes, Muscle Wasting, Tenderness - Mild tenderness along the line of left PICC line Neurological: Cranial nerves II-XII grossly intact, - - Chronic bilateral lower extremity edema Psych/Mental Status: Normal Affect, Appropriate Plan is for patient to continue with p.o. 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 She is to follow-up with ID for any dosage changes needed. Rest of plan as described above. She was also given a prescription for p.o. oxycodone acetaminophen 1 tablet every 4 hours as needed for 5 days with a total of 20 tablets. OA RRS was checked and no red flags were seen. [] - Physical Exam Vital Signs Temp Pulse Resp BP Pulse Ox 98.6 F 94 18 105/47 L 98 07/27/18 12:00 07/27/18 12:21 07/27/18 12:00 07/27/18 12:00 07/27/18 12:00 Oxygen Delivery Method Room Air Weight: 149 lb 7.574 oz Body Mass Index (BMI) 27.3 Finger Stick Blood Glucose 154 Intake and Output for Last 24 Hours 07/25/18 07/26/18 07/27/18 23:59 23:59 23:59 Intake Total 885 / 885 583 / 583 450 / 450 Output Total 2200 / 2200 3400 / 3400 3850 / 3850 Balance -1315 / -1315 -2817 / -2817 -3400 / -3400 Microbiology Past 72 Hours 07/26/18 11:30 Stool Occult Blood (NEVAEH) - Final Stool 07/21/18 06:00 Blood Culture - Final Blood Culture (Wb) - Right Wrist No growth in 5 days. 07/21/18 06:00 Blood Culture - Final Blood Culture (Wb) - Arm Left No growth in 5 days. 07/21/18 05:00 Urine Culture - Final Urine Catheter - Catheter Presumptive C albicans Laboratory Tests Past 24 Hrs 07/26/18 07/26/18 07/26/18 05:25 12:55 19:15 WBC RBC Hgb Hct MCV MCH MCHC RDW RDW Differential Plt Count MPV Immature Gran % (Auto) Neut % (Auto) Lymph % (Auto) [place] % (Auto) Eos % (Auto) Baso % (Auto) Absolute Neuts (auto) Absolute Lymphs (auto) Total Counted PT INR APTT 35.8 64.4 H Sodium Potassium Chloride Carbon Dioxide Anion Gap BUN Creatinine Estim Creat Clear Calc Est GFR (MDRD) Af Amer Est GFR (MDRD) Non-Af BUN/Creatinine Ratio Glucose Hemoglobin A1c 7.6 H Calcium 04/09/19 04/09/19 04/09/19 01:30 05:45 05:45 WBC 6.8 RBC 2.89 L Hgb 8.6 L Hct 27.3 L MCV 94.5 MCH 29.8 MCHC 31.5 L RDW 19.3 H RDW Differential 62.9 H Plt Count 208 MPV 9.0 Immature Gran % (Auto) 1.500 H Neut % (Auto) 54.5 Lymph % (Auto) 21.4 [place] % (Auto) 14.3 H Eos % (Auto) 7.7 H Baso % (Auto) 0.6 Absolute Neuts (auto) 3.7 Absolute Lymphs (auto) 1.45 Total Counted Not Reportable PT INR APTT 75.9 H Sodium 139 Potassium 4.2 Chloride 105 Carbon Dioxide 28.0 Anion Gap 6 BUN 55 H Creatinine 1.08 H Estim Creat Clear Calc 40.67 Est GFR (MDRD) Af Amer 65 Est GFR (MDRD) Non-Af 53 L BUN/Creatinine Ratio 50.9 H Glucose 155 H Hemoglobin A1c Calcium 7.5 L 07/27/18 05:45 WBC RBC Hgb Hct MCV MCH MCHC RDW RDW Differential Plt Count MPV Immature Gran % (Auto) Neut % (Auto) Lymph % (Auto) [place] % (Auto) Eos % (Auto) Baso % (Auto) Absolute Neuts (auto) Absolute Lymphs (auto) Total Counted PT 13.5 INR 1.1 APTT 51.0 H Sodium Potassium Chloride Carbon Dioxide Anion Gap BUN Creatinine Estim Creat Clear Calc Est GFR (MDRD) Af Amer Est GFR (MDRD) Non-Af BUN/Creatinine Ratio Glucose Hemoglobin A1c Calcium POC Glucose 07/27/18 07/27/18 07/26/18 11:21 06:50 22:09 POC Glucose 160 H 159 H 198 H 07/26/18 16:16 POC Glucose 214 H Discharge Diet: Low fat/ Low Cholesterol Discharge Activity: Return to Normal Activity Weight Bearing Status: Weight bearing as tolerated Call your doctor if you observe: Fever of 101 or Higher, Inability to urinate, Uncontrolled pain Home Medications: Medications to take at Discharge Allopurinol [Zyloprim] 200 mg PO DAILY 07/05/14 Multivitamins,Therapeutic [Multivitamin] 1 tab PO DAILY 03/18/15 Timolol Maleate [Timoptic-XE 0.5%] 1 drp EACH EYE DAILY 07/05/14 Ascorbic Acid [Vitamin C] 500 mg PO DAILY@0800 09/09/17 Metformin HCl [Glucophage] 1,000 mg PO BID 02/26/18 Atorvastatin Calcium [Lipitor] 10 mg PO QHS 06/16/18 Gabapentin [Neurontin] 100 mg PO TID 06/16/18 Lactobacillus Acidophilus [Acidophilus] 1 cap PO DAILY 06/16/18 Linagliptin [Tradjenta] 5 mg PO DAILY 06/16/18 Polyethylene Glycol 3350 [Miralax] 17 gm PO DAILY 06/16/18 Insulin Lispro [Humalog KwikPen] See Protocol SC ACHS insuln.pen 06/22/18 Losartan Potassium [Cozaar] 25 mg PO DAILY tablet 06/22/18 Metoprolol Tartrate [Lopressor (beta honey)] 25 mg PO BID tablet 06/22/18 Potassium Chloride [K-Dur] 20 meq PO DAILYCM tablet 06/22/18 Bisacodyl [Laxative Suppository] 10 mg RC DAILY PRN PRN 07/20/18 Citric AC/Gluconolact/Mag Carb [Renacidin Irrigation Solution] 30 ml IR DAILY 07/20/18 Furosemide [Lasix] 20 mg PO DAILY 07/20/18 Latanoprost 0.005% [Xalatan Opthalmic] 1 drop EACH EYE QHS 07/20/18 Magnesium Hydroxide [Milk of Magnesia] 30 ml PO DAILY PRN PRN 07/20/18 Mirabegron [Myrbetriq] 50 mg PO DAILY 07/20/18 Amoxicillin 875 mg PO BID 90 Days #180 tab 07/27/18 Apixaban [Eliquis] 5 mg PO BID #60 tab 07/27/18 Oxycodone HCl/Acetaminophen [Oxycodone-Acetaminophen 5-325] 1 tab PO Q4H PRN PRN 5 Days #20 tab 07/27/18 Following Prescrptions Were Given to Patient: Oxycodone HCl/Acetaminophen [Oxycodone-Acetaminophen 5-325] 1 tab PO Q4H PRN PRN 5 Days #20 tab PRN Reason: Pain Amoxicillin 875 mg PO BID 90 Days #180 tab Apixaban [Eliquis] 5 mg PO BID #60 tab Primary Care Physician: Phani Mackenzie MD [Primary Care Provider] - Please follow up with your Primary Care Physician in: one week Please Follow Up With: Ave Rios MD When: 1-2 weeks Please Follow Up With: Denny Biggs MD When: 1-2 weeks Please Follow Up With: Joseph Padilla MD When: 1-2 weeks Please Follow Up With: Javid Ford MD When: 1-2 weeks Disposition: Group Home facility Minutes spent on discharge:: 50 Patient Condition:: Stable Medical Necessity - Tobacco Use Smoking Status: Never smoker Meaningful Use Info Meaningful Use Diagnoses (Choose all that apply): None applicable Code Visit Inpatient E&M: 73730 Disch Hosp
--- NOTE | 2018-07-27 13:51 | NURSING ---
called report to Nena @ [facility]
--- NOTE | 2018-07-27 15:09 | CASEMGMT ---
Social work: Transfer to Extended care orders and med list faxed to [facility]. Ambulance forms on chart and LOC in chart and packet. PLAN: Patient to be discharged to [facility] today on a skilled LOC. JULIA Arrington
== END 2018-07-27 15:30 | disposition skilled nursing facility (03) | DRG 720 ==
LOC: ED 20:52 → ICU 07-21 06:59 → PCU 07-23 16:58
PROVIDERS: Internal Medicine; Internal Medicine Critical Care Medicine; Internal Medicine Nephrology; Surgery; Admitting Provider Hospitalist; Emergency Provider Emergency Medicine; Family Provider Family Medicine; PCP Family Medicine; Referring Provider Hospitalist; Visit Provider Student in an Organized Health Care Education/Training Program
PROC: 0DJD8ZZ Inspection of Lower Intestinal Tract, Via Natural or Artificial Opening Endoscopic (ICD-10-PCS; CPT 45378; principal; 2018-07-27 09:55)
DX: A41.9 Sepsis, unspecified organism (principal); N17.0 Acute kidney failure with tubular necrosis; T36.8X5A Adverse effect of other systemic antibiotics, initial encounter; E87.5 Hyperkalemia; M86.652 Other chronic osteomyelitis, left thigh; L89.324 Pressure ulcer of left buttock, stage 4; L89.314 Pressure ulcer of right buttock, stage 4; L89.154 Pressure ulcer of sacral region, stage 4; E87.2 Acidosis; E11.40 Type 2 diabetes mellitus with diabetic neuropathy, unspecified; I48.91 Unspecified atrial fibrillation; M48.061 Spinal stenosis, lumbar region without neurogenic claudication; E11.69 Type 2 diabetes mellitus with other specified complication; I82.622 Acute embolism and thrombosis of deep veins of left upper extremity; E83.42 Hypomagnesemia; E46 Unspecified protein-calorie malnutrition; Z66 Do not resuscitate; E83.39 Other disorders of phosphorus metabolism; E87.6 Hypokalemia; M46.28 Osteomyelitis of vertebra, sacral and sacrococcygeal region; D50.9 Iron deficiency anemia, unspecified; T82.868A Thrombosis due to vascular prosthetic devices, implants and grafts, initial encounter; R65.21 Severe sepsis with septic shock; I82.B12 Acute embolism and thrombosis of left subclavian vein; E11.65 Type 2 diabetes mellitus with hyperglycemia; E78.5 Hyperlipidemia, unspecified; M10.9 Gout, unspecified; I10 Essential (primary) hypertension; Z79.4 Long term (current) use of insulin; Z93.3 Colostomy status; Z68.26 Body mass index [BMI] 26.0-26.9, adult
CPT/HCPCS: 36415; 36569; 36592; 71045; 80048; 80053; 80069; 80202; 82274; 82550; 82728; 82962; 83036; 83540; 83550; 83605; 83735; 84132; 84484; 85025; 85027; 85610; 85652; 85730; 86141; 86644; 86850; 86900; 86920; 86922; 87040; 87086; 87088; 93005; 93971; 94640; 97110; 97162; 97166; 97530; 97802; 99285; J2185; J7030; J7050; P9016; A4216; J0610; J1940

== ENCOUNTER 2018-08-11 15:18 | Inpatient (IN) | payer MEDICAID, SELFPAY ==
[2018-07-26 21:23] VITALS: BMI 27.3
[2018-08-11] VITALS (10 sets, daily range): BP systolic 86–104; BP diastolic 49–70; PULSE 111–121; RESP 13–28; TEMP 36.6–37.2; O2SAT 97–100; BMI 27.0; BMI 26.2; BMI 26.3
--- NOTE | 2018-08-11 15:41 | EKG12_ITS ---
Test Reason : DYSRHYTHMIA Blood Pressure : / mmHG Vent. Rate : 113 BPM Atrial Rate : 113 BPM P-R Int : 148 ms QRS Dur : 076 ms QT Int : 332 ms P-R-T Axes : 065 069 058 degrees QTc Int : 455 ms Sinus tachycardia Otherwise normal ECG Confirmed by JAMEY CHANEL, ANGEL ([id number]), newspaper or periodical editor SHERYL QUEEN ([id number]) on 08/16/2018 10:51:56 AM Referred By: Sari Frost Confirmed By:ANGEL CONCEPCION MD
--- NOTE | 2018-08-11 15:50 | RAD_ITS ---
STUDY: X-RAY CHEST REASON FOR EXAM: Female, 68 years old. Weakness, sepsis. TECHNIQUE: Portable chest. COMPARISON: None. FINDINGS: The lungs are clear and expanded. There is no demonstrated pleural abnormality. Normal size heart. Normal mediastinum and sergio. Normal visualized pulmonary arteries. Normal visualized aortic arch and descending thoracic aorta. Mild degenerative changes of the shoulders are noted. There is mild thoracic spondylosis. Soft tissues and bony structures are otherwise unremarkable. RAD/Chest 1 View (Portable) IMPRESSION: No acute findings. Electronically Signed: Patricia Poon MD at 16:23 EDT Tel , Service support ,
[2018-08-11] MEDS: 0.9% Normal Saline 1,000 ML IV.SOLN. 2100 ML IV (16:15)
[2018-08-11] MEDS: Ondansetron 4 MG/2 ML Vial IV (16:16)
[2018-08-11 16:37] LABS: International Normalized Ratio 1.6; Prothrombin Time (Protime)PT. 18.5 SECONDS (11.7-14.9)
[2018-08-11 16:38] LABS: Partial Thromboplast Time 44.5 Seconds (24.1-36.2)
[2018-08-11 16:43] LABS: Mucous, Urine 0 SEEN /hpf (<or=2+)
[2018-08-11 16:58] LABS: Hematocrit 30.9 % (37-47); Hemoglobin 9.5 g/dl (12.0-15.0); Mean Corp Hgb Conc 30.7 g/gl (32-36); Mean Corpuscular Hgb 29.5 pg (27.0-32.0); Red Blood Count 3.22 M/mm3 (4.2-5.4); White Blood Count 13.9 K/mm3 (4.4-11.0)
[2018-08-11 16:59] LABS: Absolute Lymphocyte Count 1.47 X10^3/ul (0.83-4.51); Basophil% 0.4 % (0-1); Eosinophils% 2.4 % (0-5); Lymphocyte # 1.47 X10^3/ul (4.0); Lymphocyte % 10.6 % (19-41); Mean Platelet Vol. 8.9 fl (6.2-12.0); Monocyte% 6.3 % (0-10); Neutrophil # 10.95 X10^3/uL (2.7-7.7); Platelet Count 674 K/mm3 (150-450); RBC Distribution Width CV 18.6 % (11.6-14.6); RBC Distribution Width SD 64.1 fl (35.1-43.9)
[2018-08-11 17:00] LABS: Color, Urine Yellow (Yellow); Glucose, Dipstick Normal (Normal); Ketone-Dipstick Negative (Negative); Leukocyte Esterase-Dipstick 500 /ul (Negative); Nitrite-Dipstick Negative (Negative); Occult Blood-Urine 25 /ul (Negative); Protein-Dipstick 30 mg/dl (Negative); Urine Bilirubin Dipstick Negative (Negative); Urine Clarity Sl. Cloudy (Clear); Urine Urobilinogen Normal (Normal)
[2018-08-11 17:00] LABS: Basophil# 0.05 X10^3/uL; Eosinophil# 0.33 X10^3/uL; Monocyte# 0.87 X10^3/uL; POSITIVE COUNT NO; POSITIVE DIFFERENTIAL NO; POSITIVE MORPHOLOGY NO
[2018-08-11 17:15] LABS: Lactic Acid 4.6 mmol/L (0.4-2.0)
--- NOTE | 2018-08-11 17:15 | ED.RN ---
LAB CALL [facility] LACT[facility]ID. 4.6. AWARE.
[2018-08-11 17:16] LABS: White Blood Cells 10-25 SEEN /hpf (0-5)
--- NOTE | 2018-08-11 17:16 | ED.DCSUM_ITS ---
- ER Visit Summary Date of Service: 08/11/18 Chief Complaint: Fatigue, vertigo History of Present Illness: The patient is a [address] Olivares. She reports that she slept for 12 hours overnight and still feels very tired. This is on usual for her. States that today she was rolled over in bed and had difficulty focusing and vertigo. She states she was nauseated and vomited. She reports that that is now resolved. Patient denies any fever or chills. No sore throat or cough. No chest pain or shortness of breath. She denies abdominal pain. She has a colostomy in place and reports that is draining normally. No blood. She also has a Rea catheter in place. Physical Examination: Vitals: 98.2, 91/54, 113, 28, 97% room air which is not hypoxic well-developed, but cachectic. General: Well-nourished and well-developed. Head: Normocephalic atraumatic. Neck: Supple, no lymphadenopathy. No JVD. Nontender. Cardiovascular: Tachycardic regular rhythm with a 2 out of 6 systolic murmur. Respiratory: No respiratory distress. Clear to auscultation bilaterally. Abdominal: Soft, nontender, nondistended, normal bowel sounds. No guarding, rebound, or peritoneal signs. Back: Nontender. Extremities: Nontender, no edema. Bilateral lower extremity muscle wasting that is chronic per patient Skin: Decubitus ulcers with wound VAC in place. The wound VAC was not removed. She also has ulcers to both heels. Neurologic: Alert and oriented ?3. Test Results: EKG is sinus tach [address] changes. Chest x-ray shows chronic changes. UA shows 10-25 white blood cells and rare bacteria. This is obtained from her Rea catheter and was sent for culture. CBC shows a white count of 13.9 with 79 segmented neutrophils, 11 lymphocytes, and immature granulocytes 1.3%. H&H is 9.5 and 30.9. Lactic acid is 4.6. Chem-7 shows a sodium 133, CO2 of 19, glucose of 113, creatinine 1.37. LFTs show an albumin 1.9 with a globulin of 5.5. AST is 75. INR is 1.6. PTT is 44.5. Emergency Department Course and Treatment: Patient was given 30 cc/kg bolus of normal saline. Currently her mean arterial pressure is 70. She was also given Zofran, Zosyn, and vancomycin IV after obtaining blood cultures. Treatment Plan: The patient was discussed with Dr. Frost. She will be admitted to the hospital for further evaluation and treatment. Disposition: Admitted in critical condition. Impression: 1. Septic shock. 2. Decubitus ulcers. 3. Ulcers to heels bilaterally. 4. Coagulopathy on Eliquis. 5. Critical care time 30 minutes. This note was generated with [employer] dictation software. It may contain incorrect words, spelling, and punctuation that were not noted in review of the chart prior to signing ED Disposition - Plan for ED Patient: Referrals: Phani Mackenzie MD [Primary Care Provider] -
[2018-08-11 17:17] LABS: Bacteria RARE /hpf (None Seen); Red Blood Cells-Urine 0-5 SEEN /hpf (0-5); Squamous Epithelial Cells - UA 0-5 SEEN /hpf (5-10)
[2018-08-11 17:18] LABS: Yeast-Urine 1+ /hpf (None Seen)
[2018-08-11 17:22] LABS: ALB/GLOB Ratio 0.3 RATIO (0.9-2.4); AST(SGOT) 75 U/L (15-37); Alanine Aminotransfer ALT/SGPT 41 U/L (13-56); Albumin, Serum 1.9 g/dL (3.2-5.0); Alkaline Phosphatase 97 U/L (45-117); Anion Gap 13 (5-15); BUN 59 mg/dL (7-18); BUN/Creat Ratio 43.1 RATIO (10-20); Calcium,Total 9.1 mg/dL (8.5-10.1); Chloride 101 mmol/L (98-107); Creatinine, Serum 1.37 mg/dL (0.55-1.02); EST Glomerular Filtration Rate 41 mL/min (>60); Est Glom Filt Rate - Afr Amer 49 mL/min (>60); Estimated Creatinine Clearance 32.06 ml/min; Globulin 5.5 g/dL (2.2-4.2); Glucose 113 mg/dL (74-106); Protein, Total 7.4 g/dL (6.4-8.2); Sodium Level 133 mmol/L (136-145)
[2018-08-11] MEDS: Vancomycin IV 1,000 MG/200 ML BAG 200 MG IV (17:34)
--- NOTE | 2018-08-11 18:10 | NURSING ---
PCU INFECTED DECUBITOUS ULCER, [facility]PT[facility]
--- NOTE | 2018-08-11 18:49 | HP.PCM_ITS ---
Problem List (1) Septic shock Status: Acute (2) Infected decubitus ulcer Status: Acute Qualifiers: Pressure injury stage: unspecified pressure injury stage Qualified Code(s): L89.90 - Pressure ulcer of unspecified site, unspecified stage; L08.9 - Local infection of the skin and subcutaneous tissue, unspecified (3) Chronic osteomyelitis of left pelvic region Status: Chronic (4) Stage IV pressure ulcer of sacral region Status: Chronic Comment: with infected necrosis (5) Right ischial pressure sore, stage 4 Status: Chronic (6) Neurogenic bladder Status: Chronic (7) Chronic suprapubic catheter Status: Chronic (8) Diabetes mellitus type 2 in nonobese Status: Chronic (9) Hypertension Status: Chronic Qualifiers: Hypertension type: essential hypertension Qualified Code(s): I10 - Essential (primary) hypertension (10) Gout Status: Chronic Qualifiers: Gout site: unspecified site Gout etiology: unspecified cause Chronicity: unspecified Qualified Code(s): M10.9 - Gout, unspecified Comment: with arthropathy (11) Pressure ulcer of left buttock, stage 3 Status: Chronic Comment: left lower buttock/upper thigh area (12) Pressure ulcer of right buttock, stage 3 Status: Chronic (13) Colostomy in place Status: Chronic (14) Pressure sore of left ischium, stage 4 Status: Chronic (15) Anemia of chronic disease Status: Chronic (16) Spinal stenosis Status: Chronic Qualifiers: Spinal region: lumbosacral (17) Hyperlipidemia Status: Chronic Qualifiers: Hyperlipidemia type: unspecified Qualified Code(s): E78.5 - Hyperlipidemia, unspecified History of Present Illness Date of Admission: 08/11/18 Chief Complaint: Fatigue, vertigo, lethargic. The patient is a 68 y/o F w/ PMHx: History of Chronic Non-healing BL LE wounds and B/L buttock [facility] ([facility]), Spinal Stenosis and Peripheral Neuropathy, Neurogenic bladder w/ chronic roach catheter, HTN, HLD, Diabetes mellitus type II, Gout, Rectal Prolapse s/p colostomy placement, AOCD, Severe deconditioning, recently discharged on 07/27/18 followin evaluation for HIMANSHU, hyperkalemia and infected decubitous ulcers discharged to SNF on amoxicillin w/ unfortunately subclavian DVT following PICC usage placed on oral anticoagulation following with positive guiac w/ surgery evaluation for concern for GI bleed; however, c-scope and upper endoscopies performed 07/27/18 were unremarkable who now re-presents to the [facility] ED on 08/11/18 from SNF w/ history of notable fatigue and lethargy over the last 24 to 48 hours, noting to have slept nearly 12 hours from the afternoon to this morning which is abnormal for the patient as well as onset of lightheadedness, dizziness and vertiginous with room spinning sensation with position changes in bed with associated nausea and emesis x1 with improvement of the symptoms but ongoing noted low blood pressures prompting ED requested evaluation. Work-up in the ED included T 98.3, heart rate 115, BP 86/54, respiratory rate 14, her percent room air, CBC with WBC 13.9, hemoglobin 9.5, platelets 674 with left shift, coags with PT 18.5, INR 1.6, PTT 44.5, CMP with sodium 133, carbon dioxide 19, BUN/creatinine 59/1.37, glucose 113, lactic acid 4.6, AST/ALT 75/41, urinalysis with specific gravity 1.010, protein 30, occult blood 25, leukocyte esterase 500, WBCs 10-25 with squames epithelial cells 0-5 with rare bacteria noted, blood culture x2 as well as urine culture pending per ED, chest x-ray with no acute cardiopulmonary findings. In the ED patient administered 30 mg/kg normal saline bolus with continued low normal BPs following as well as Zofran in addition to vancomycin and Zosyn. Past Medical History Past Medical History (Chronic Problems): Chronic Problems (Last Reviewed 07/26/18 @ 15:47 by Alyssa Azevedo PA-C) Chronic osteomyelitis of left pelvic region (Chronic) 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 Right ischial pressure sore, stage 4 (Chronic) Open wound of left thigh (Chronic) traumatic skin tear posterior thigh Incompetent urethral closure mechanism (Chronic) Neurogenic bladder (Chronic) Stage II pressure ulcer (Chronic) Chronic suprapubic catheter (Chronic) Diabetes mellitus type 2 in nonobese (Chronic) Hypertension (Chronic) Gout (Chronic) with arthropathy Pressure ulcer of left buttock, stage 3 (Chronic) left lower buttock/upper thigh area Diabetes mellitus (Chronic) Pressure ulcer of right buttock, stage 3 (Chronic) Diabetic neuropathy, type II diabetes mellitus (Chronic) Malnutrition (Chronic) Back pain (Chronic) Arthritis (Chronic) 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 significance to followup Anemia of chronic disease (Chronic) Physical deconditioning (Chronic) Dupuytren's contracture of right hand (Chronic) Spinal stenosis (Chronic) Hyperlipidemia (Chronic) RP (rectal prolapse) (Chronic) Medical History: Medical History (Last Reviewed 07/26/18 @ 15:47 by Alyssa Azevedo PA-C) Open wound of left thigh (Chronic) S71.102A traumatic skin tear posterior thigh Incompetent urethral closure mechanism (Chronic) N36.8 Neurogenic bladder (Chronic) N31.9 Stage II pressure ulcer (Chronic) L89.92 Complicated urinary tract infection (Acute) N39.0 Hematuria (Acute) R31.9 Diabetes mellitus type 2 in nonobese (Chronic) E11.9 Hypertension (Chronic) I10 Gout (Chronic) M10.9 with arthropathy Pressure ulcer of left buttock, stage 3 (Chronic) L89.323 left lower buttock/upper thigh area Pressure ulcer of left buttock, stage 2 (Resolved) L89.322 Diabetes mellitus (Chronic) E11.9 Pressure ulcer of right buttock, stage 3 (Chronic) L89.313 Diabetic neuropathy, type II diabetes mellitus (Chronic) E11.40 Malnutrition (Chronic) E46 Back pain (Chronic) M54.9 Arthritis (Chronic) M19.90 chronic osteomyelitis left ischial area (Chronic) Pressure sore of left ischium, stage 4 (Chronic) L89.324 Lytic bone lesion of right femur (Chronic) M89.8X5 and right humerus ? significance to followup Anemia of chronic disease (Chronic) D63.8 Physical deconditioning (Chronic) R53.81 Dupuytren's contracture of right hand (Chronic) M72.0 Spinal stenosis (Chronic) M48.00 Hyperlipidemia (Chronic) E78.5 RP (rectal prolapse) (Chronic) K62.3 Allergies No Known Allergies Allergy (Verified 07/20/18 20:02) Home Medications: Ambulatory Orders Medication Instructions Recorded Allopurinol [Zyloprim] 200 mg PO DAILY 07/05/14 Multivitamins,Therapeutic 1 tab PO DAILY 07/05/14 [Multivitamin] Timolol Maleate [Timoptic-XE 0.5%] 1 drp EACH EYE DAILY 07/05/14 Ascorbic Acid [Vitamin C] 500 mg PO DAILY@0800 09/09/17 Metformin HCl [Glucophage] 1,000 mg PO BID 02/26/18 Atorvastatin Calcium [Lipitor] 10 mg PO QHS 06/16/18 Gabapentin [Neurontin] 200 mg PO TID 06/16/18 Lactobacillus Acidophilus 1 cap PO DAILY 06/16/18 [Acidophilus] Linagliptin [Tradjenta] 5 mg PO DAILY 06/16/18 Polyethylene Glycol 3350 [Miralax] 17 gm PO DAILY 06/16/18 Insulin Lispro [Humalog KwikPen] See Protocol SC ACHS insuln.pen 06/22/18 Citric AC/Gluconolact/Mag Carb 30 ml IR DAILY 07/20/18 [Renacidin Irrigation Solution] Furosemide [Lasix] 20 mg PO DAILY 07/20/18 Latanoprost 0.005% [Xalatan 1 drop EACH EYE QHS 07/20/18 Opthalmic] Mirabegron [Myrbetriq] 50 mg PO DAILY 07/20/18 Amoxicillin 875 mg PO BID 08/11/18 Apixaban [Eliquis] 5 mg PO BID 08/11/18 Losartan Potassium [Cozaar] 25 mg PO DAILY 08/11/18 Metoprolol Tartrate [Lopressor 25 mg PO BID 08/11/18 (beta honey)] Multivit,Stress Formula/Zinc 1 tab PO BID 08/11/18 [Stress Formula with Zinc Tab] Oxycodone HCl/Acetaminophen 1 tab PO Q4H PRN PRN 08/11/18 [Percocet 5-325 mg Tablet] Surgical History: Surgical History (Last Reviewed 07/26/18 @ 15:48 by Alyssa Azevedo PA-C) Chronic suprapubic catheter (Chronic) Z93.[address] (Chronic) Z93.3 Previous back surgery Z98.890 Surgical History: - - Surgery for rectal prolapse with anterior resection and rectopexy at [facility] in 2008 and back surgery 1979. Colostomy was November 2012. Excision left ischial pressure sore with partial ostectomy for osteomyelitis and excision right ischial pressure sore and excision left lateral ankle pressure sore with partial ostectomy for osteomyelitis in 08/01. 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 Denies: Chills, Fever, Weight Change HEENT: Reports: - - Vertigo.. Denies: Head Aches, Sinus Congestion, Sinus Drainage Cardiovascular: Reports: Light Headedness. Denies: Chest Pain, Palpitations Respiratory: Denies: Cough, Shortness of breath at rest, Sputum production Gastrointestinal: Reports: - - Ostomy.. Denies: Abdominal Pain, Nausea, Vomiting Genitourinary: Reports: - - Neurogenic bladder.. Denies: Dysuria Musculoskeletal: Reports: Back Pain, Joint Pain. Denies: Joint Tenderness Skin: Reports: Skin Changes, Wounds. Denies: Rash Neurological: Reports: Focal weakness. Denies: Numbness, Tingling Psychiatric: Reports: Anxiety, Depression. Denies: Homicidal Ideations, Suicidal Ideations Hematologic/ Lymphatic: Reports: Anemia, Hx of blood clot. Denies: Easy Bruising, Easy Bleeding VTE Information - Inpt Only VTE Present on Admission: No VTE Mechan Device Prophylaxis: SCD's VTE Pharm Prophylaxis ordered?: Yes Patient Problems: Active and Suspected Problems (Last Reviewed 07/26/18 @ 15:47 by Alyssa Azevedo PA-C) Septic shock (Acute) Subjective: Seated upright in ED bed, fatigued appearing, notes feeling mildly improved since initial presentation with IV fluids, denies any current vertiginous symptoms. Objective: Physical Examination: General: awake, alert, oriented x 3 and cooperative, seated upright in the ED bed in no apparent distress, notes improved since initial presentation with IV fluids, denies any recurrent vertiginous symptoms.. Skin: normal color, turgor, no icterus, cyanosis except occasional extremity ecchymoses, bilateral stage III-IV ischial decubitus ulcers, buttock, 3 open regions, some slough, no foul odor noted however arrived with dressings in place but no VAC attached, heels well appearing. HEENT: AT/NC, EOMI, PERRLA, dry MM, no carotid bruits or JVD noted. Lungs: Diminished BS BL, > BL bases, moderate effort, mild decrease BL bases, no rales, ronchi or wheezing. Heart: Regular rate and regular rhythm; no gallop, rub audible. Abdomen: soft, obese, ostomy in place with appropriate output, NTTP, ND, normal BS, no HSM, roach in place. Extremities: no cyanosis, clubbing, BL ankle minimal edema, non-pitting no evidence of muscle wasting. Neurological: patient awake, alert, oriented x 3; cognitive function intact; pupils equally reactive to light and accomodation; cranial nerves II-XII grossly normal, moving all 4 extremities, chronic contracture RUE as well as bilateral lower extremity with functional paraplegia, strength severely globally decreased. Psychiatric: affect appears fatigued, no acute evidence of depressive or anxiety feelings. - Physical Exam Vital Signs Temp Pulse Resp BP Pulse Ox 98.9 F 114 H 14 96/49 L 100 08/11/18 18:00 08/11/18 18:00 08/11/18 18:00 08/11/18 18:00 08/11/18 16:25 Oxygen Delivery Method Room Air Weight: 152 lb 8.958 oz Body Mass Index (BMI) 27.0 Finger Stick Blood Glucose 154 Laboratory Tests Past 24 Hrs 08/11/18 08/11/18 08/11/18 16:05 16:05 16:05 WBC 13.9 H RBC 3.22 L Hgb 9.5 L Hct 30.9 L MCV 96.0 MCH 29.5 MCHC 30.7 L RDW 18.6 H RDW Differential 64.1 H Plt Count 674 H MPV 8.9 Immature Gran % (Auto) 1.300 H Neut % (Auto) 79.0 H Lymph % (Auto) 10.6 L [place] % (Auto) 6.3 Eos % (Auto) 2.4 Baso % (Auto) 0.4 Absolute Neuts (auto) 11.0 H Absolute Lymphs (auto) 1.47 Total Counted Not Reportable PT 18.5 H INR 1.6 APTT 44.5 H Sodium 133 L Potassium 5.0 Chloride 101 Carbon Dioxide 19.0 L Anion Gap 13 BUN 59 H Creatinine 1.37 H Estim Creat Clear Calc 32.06 Est GFR (MDRD) Af Amer 49 L Est GFR (MDRD) Non-Af 41 L BUN/Creatinine Ratio 43.1 H Glucose 113 H Lactic Acid Calcium 9.1 Total Bilirubin 0.40 AST 75 H ALT 41 Alkaline Phosphatase 97 Total Protein 7.4 Albumin 1.9 L Globulin 5.5 H Albumin/Globulin Ratio 0.3 L Urine Color Urine Clarity Urine pH Ur Specific [place] Urine Protein Urine Glucose (UA) Urine Ketones Urine Occult Blood Urine Nitrite Urine Bilirubin Urine Urobilinogen Ur Leukocyte Esterase Urine RBC Urine WBC Ur Squamous Epith Cells Urine Bacteria Urine Mucus Urine Yeast 08/11/18 08/11/18 16:05 16:40 WBC RBC Hgb Hct MCV MCH MCHC RDW RDW Differential Plt Count MPV Immature Gran % (Auto) Neut % (Auto) Lymph % (Auto) [place] % (Auto) Eos % (Auto) Baso % (Auto) Absolute Neuts (auto) Absolute Lymphs (auto) Total Counted PT INR APTT Sodium Potassium Chloride Carbon Dioxide Anion Gap BUN Creatinine Estim Creat Clear Calc Est GFR (MDRD) Af Amer Est GFR (MDRD) Non-Af BUN/Creatinine Ratio Glucose Lactic Acid 4.6 H* Calcium Total Bilirubin AST ALT Alkaline Phosphatase Total Protein Albumin Globulin Albumin/Globulin Ratio Urine Color Yellow Urine Clarity Sl. Cloudy Urine pH 5.0 Ur Specific [place] 1.010 Urine Protein 30 H Urine Glucose (UA) Normal Urine Ketones Negative Urine Occult Blood 25 H Urine Nitrite Negative Urine Bilirubin Negative Urine Urobilinogen Normal Ur Leukocyte Esterase 500 H Urine RBC 0-5 SEEN Urine WBC 10-25 SEEN Ur Squamous Epith Cells 0-5 SEEN Urine Bacteria RARE Urine Mucus 0 SEEN Urine Yeast 1+ Assessment/Plan All Active Problems (Last Reviewed 07/26/18 @ 15:47 by Alyssa Azevedo PA-C) Hyperkalemia (Acute) Acute hyperkalemia (Acute) Acute kidney failure (Acute) Metabolic acidemia (Acute) Anemia (Acute) Septic shock (Acute) Abscess, wrist (Acute) Septic olecranon bursitis of right elbow (Acute) Skin necrosis (Acute) Infected decubitus ulcer (Acute) Olecranon bursitis of right elbow (Acute) Severe sepsis (Acute) Complicated urinary tract infection (Acute) Hematuria (Acute) Pressure ulcer of left buttock, stage 2 (Resolved) The patient is a 68 y/o F w/ PMHx: History of Chronic Non-healing BL LE wounds and B/L buttock [facility] ([facility]), Spinal Stenosis and Peripheral Neuropathy, Neurogenic bladder w/ chronic roach catheter, HTN, HLD, Diabetes mellitus type II, Gout, Rectal Prolapse s/p colostomy placement, AOCD, Severe deconditioning, recently discharged on 07/27/18 followin evaluation for HIMANSHU, hyp erkalemia and infected decubitous ulcers discharged to SNF on amoxicillin w/ unfortunately subclavian DVT following PICC usage placed on oral anticoagulation who now re-presents to the [facility] ED on 08/11/18 from SNF w/ history of notable fatigue and lethargy over the last 24 to 48 hours, noting to have slept nearly 12 hours from the afternoon to this morning which is abnormal for the patient as well as onset of lightheadedness, dizziness and vertiginous with room spinning sensation with position changes in bed with associated nausea and emesis x1 with improvement of the symptoms but ongoing noted low blood pressures prompting ED requested evaluation. (1) Septic Shock w/ Malaise, Fatigue, Vertigo secondary to Possible Infected decubitus ulcer, coccyx, ischial ulcers: Dressings taken down in the ED and not severe appearing but no other source for current presentation although could be to potentially severe dehydration. LA notable elevated, technically septic shock with elevated lactic acid, tachycardia, hypotensive, WBC elevation w/ L shiftWill admit to PCU, continue aggressive hydration with very strict hold parameters on hypertensive regimen, maintain on IV vancomycin and Zosyn, Dr. Myles, plastic surgeon, consulted although low suspicion for operative needs, wound RN consulted, continue dressing changes per their discretion, transition to wet-to-dry pending replacement of VAC. (2) Diabetes mellitus type II: Hold oral home regimen, continue home insulin, ADA diet, accu checks w/ ISS, nutrition consultation for education and teaching. (3) Hypertension: Continue home regimen including losartan, lasix with very rigid hold parameters given low BP upon initial presentation, PRN hydralazine. (4) Hyperlipidemia: Continue home statin regimen. (5) Spinal Stenosis and Peripheral Neuropathy w/ Neurogenic bladder, Paraplegia: Fall precautions, position changes, chronic roach catheter, PT, OT, case management consulted. (6) AOCD: Admission Hgb 9.5, improved from recent discharge 8.6, stable, trend. (7) Recent DVT: Following PICC, maintain on oral anticoagulant. (8) DVT Prophylaxis: SCDs, eliquis. (9) CODE status: CODE status: Discussed CODE status at length including difference between FULL code, DNR-CCA and DNR-CC status. Following discussions about the differences in these status, requested continuation of DNR-CCA, no intubation status. SNF paperwork with DNR-CCA, no intubation, but family had been encouraging return to Full Code which was discussed with patient and she declined this change. Advanced Care Planning Face to Face Time:16 minutes. Code Visit Inpatient E&M: 83523 Init Hosp L3 Procedures: 83960 Advncd Care Plan 30 Min
[2018-08-11 20:20] LABS: Reflex Lactate? Y
[2018-08-11 20:21] LABS: Bedside Glucose 117 mg/dL (70-110)
[2018-08-11 21:28] LABS: Lactic Acid 4.3 mmol/L (0.4-2.0)
[2018-08-11] MEDS: 0.9% Normal Saline 1,000 ML 125 ML IV (22:10)
[2018-08-11] MEDS: Latanoprost 0.005% 1 Bottle 1 DRP EACH EYE (23:31)
[2018-08-11] MEDS: APIXABAN 5 MG TABLET PO (23:31)
[2018-08-11] MEDS: Gabapentin 100 MG Capsule 200 MG PO (23:31)
[2018-08-11] MEDS: oxyCODONE 5 MG Tablet PO (23:31)
[2018-08-11] MEDS: Timolol 0.5% 5ML OPTH.BTL 5 DRP EACH EYE (23:33)
[2018-08-12] VITALS (13 sets, daily range): BP systolic 80–116; BP diastolic 44–63; PULSE 100–124; RESP 18; TEMP 36.4–36.9; O2SAT 96–100
[2018-08-12 00:21] LABS: Bedside Glucose 146 mg/dL (70-110)
--- NOTE | 2018-08-12 01:50 | PCM.RX.CS ---
Consult Pharmacy has been consulted to manage selected antiobiotic: Vancomycin Type of Consult: New start Suspected Infection: Sepsis Labs: Sodium 133 mmol/L (136-145) L 08/11/18 16:05 Potassium 5.0 mmol/L (3.5-5.1) 08/11/18 16:05 Chloride 101 mmol/L (98-107) 08/11/18 16:05 Carbon Dioxide 19.0 mmol/L (21.0-32.0) L 08/11/18 16:05 Anion Gap 13 (5-15) 08/11/18 16:05 BUN 59 mg/dL (7-18) H 08/11/18 16:05 Creatinine 1.37 mg/dL (0.55-1.02) H 08/11/18 16:05 Est GFR (MDRD) Af Amer 49 mL/min (>60) L 08/11/18 16:05 Est GFR (MDRD) Non-Af 41 mL/min (>60) L 08/11/18 16:05 BUN/Creatinine Ratio 43.1 RATIO (10-20) H 08/11/18 16:05 Glucose 113 mg/dL (74-106) H 08/11/18 16:05 Weight used for dosin.3 kg Estimated Creatinine Clearance: 35.71 Goal Trough: 10-15 mcg/mL Pharmacy Plan for Drug Dosing: Pharmacy Service will continue to monitor and adjust dosing as required. Medications Discontinued Medications Vancomycin HCl (Vancomycin) 1,000 mg in 200 mls @ 200 mls/hr IV X1 ONE Stop: 08/11/18 18:29 Last Admin: 08/11/18 17:34 Dose: 200 mls/hr VANCOMYCIN 750MG DAILY @ 1730 Follow-Up Labs: Trough Vancomycin Labs to be done on [date and time ordered]: 08/13 @ 1730
[2018-08-12 02:55] LABS: Probe Check PASS; Staph aureus DNA By PCR POSITIVE (Negative)
[2018-08-12 02:56] LABS: M R Staph aureus DNA By PCR POSITIVE (Negative)
[2018-08-12] MEDS: 0.9% Normal Saline 1,000 ML 125 ML IV ×3 (05:13→19:41)
[2018-08-12] MEDS: Gabapentin 100 MG Capsule 200 MG PO ×3 (05:20→21:22)
[2018-08-12] MEDS: oxyCODONE 5 MG Tablet PO ×3 (05:20→21:20)
[2018-08-12 06:50] LABS: Bedside Glucose 112 mg/dL (70-110)
[2018-08-12 07:27] LABS: Lactic Acid 3.7 mmol/L (0.4-2.0)
[2018-08-12] MEDS: Multivitamins,Therapeutic Tablet 1 TABLET PO (09:50)
[2018-08-12] MEDS: Ascorbic Acid 500 MG Tablet PO (09:50)
[2018-08-12] MEDS: Allopurinol 100 MG Tablet 200 MG PO (09:51)
[2018-08-12] MEDS: Mirabegron 50 MG TAB.ER.24H PO (09:51)
[2018-08-12] MEDS: APIXABAN 5 MG TABLET PO ×2 (09:51→21:21)
[2018-08-12] MEDS: Timolol 0.5% 5ML OPTH.BTL 5 DRP EACH EYE ×2 (09:52→21:22)
[2018-08-12] MEDS: Polyethylene Glycol 3350 17 GM PACKET PO (09:57)
[2018-08-12 10:47] LABS: Reflex Lactate? Y
--- NOTE | 2018-08-12 11:33 | CASEMGMT ---
ALEX met with patient and her POAJay. The plan is for patient to return to [facility] when ready. ALEX will send updates to [facility]. Ofelia GARCIA MSW
[2018-08-12 11:40] LABS: Lactic Acid 3.4 mmol/L (0.4-2.0)
[2018-08-12] MEDS: Linezolid 600 MG Tablet PO ×2 (12:04→21:33)
[2018-08-12 12:10] LABS: Bedside Glucose 111 mg/dL (70-110)
--- NOTE | 2018-08-12 15:12 | NURSING ---
wound photo: left ischium
--- NOTE | 2018-08-12 15:12 | NURSING ---
wound photo: sacrum and bilateral ischium
--- NOTE | 2018-08-12 15:13 | CASEMGMT ---
Patient has a Healthcare POA and Healthcare LW on file. Ofelia GARCIA FREQUENCY CHECKER
--- NOTE | 2018-08-12 16:12 | PN_ITS ---
Patient Problems: Active and Suspected Problems (Last Reviewed 07/26/18 @ 15:47 by Alyssa Azevedo PA-C) Septic shock (Acute) Subjective: The patient is a 68-year-old female with a history of chronic osteomyelitis of the left pelvis, stage IV decubitus ulcer of the sacrum, stage IV right ischial decubitus ulcer, neurogenic bladder, chronic suprapubic catheter, diabetes mellitus type 2, hypertension, gout, stage III pressure ulcer of the left buttock, stage III pressure ulcer of the right buttock, colostomy, spinal stenosis, hyperlipidemia and anemia of chronic disease who presented to the emergency department at [facility] on 08/11/2018 complaining of lightheadedness, vertigo, fatigue and nausea with one episode of emesis. Vital signs in the emergency department were temperature 98.2, pulse rate 113, blood pressure 103/70, respiratory rate 28 and she was 97% saturated on room. Labs showed an elevated white blood cell count at 13.9 with 79% neutrophils. Hemoglobin is 9.5 which is within her baseline. Platelets were 674,000. Sodium was low at 133 and the potassium was 5.0. Serum bicarb is low at 19 and the BUN was 59 with a creatinine of 1.37. Creatinine on July 27 was 1.08. Lactic acid was 4.6. AST was increased at 75 and the remainder of the LFTs were within normal limits. Albumin is low at 1.9. UA had 10-25 WBCs per high-power field. Blood and urine cultures were sent from the emergency department. Chest x-ray had no acute findings. She was admitted to the hospital with a diagnosis of septic shock due to the fact that the lactic acid was greater than 4. She was started on IV vancomycin and Zosyn. Dr. Myles and Dr. Joseph were consulted. Afebrile since admission. Current blood pressure is 97/58 with a pulse rate of 100. Respiratory rate is 18 and she is 100% saturated on room air. Sputum Gram stain shows 1+ white blood cells with no organisms. No urine culture was sent Dr. Myles examined the decubitus ulcers and they are looking good with no evidence of infection. she is c/o the room spinning. Denies N/V/abd pain, no ear pain, sore throat or cough. No rash recently. Denies AUGUSTINE or stiff neck. I reviewed Dr. Myles's and Dr. Joseph's notes and appreciate their input - Physical Exam General: Alert, Oriented x3, Cooperative, No apparent distress HEENT: Atraumatic, PERRLA, Normocephalic Oral: Dry Mucosa Neck: No Nodes, Trachea Midline Lungs: Clear to auscultation, Normal air movement Cardiovascular: Regular rate, Regular Rhythm, Normal S1, Normal S2, No murmurs, No Gallop Abdomen: Bowel Sounds Present, Soft, Non Tender, Non-Distended Extremities: No clubbing, Edema - non-pitting of the dorsum of the feet Musculoskeletal: Arthritic Changes, Muscle Wasting Neurological: Cranial nerves II-XII grossly intact Psych/Mental Status: Normal Affect, Appropriate Vital Signs Temp Pulse Resp BP Pulse Ox 97.9 F 100 18 97/58 L 100 08/12/18 12:23 08/12/18 12:23 08/12/18 12:23 08/12/18 12:23 08/12/18 12:23 Oxygen Delivery Method Room Air Weight: 148 lb 5.938 oz Body Mass Index (BMI) 26.2 Finger Stick Blood Glucose 154 Intake and Output for Last 24 Hours 08/10/18 08/11/18 08/12/18 23:59 23:59 23:59 Intake Total 2895 / 2895 Output Total 1450 / 1450 Balance 1445 / 1445 Microbiology Past 72 Hours 08/11/18 23:45 Gram Stain - Final Ulcer, Decubitus - Open/Non-Healing Wound Laboratory Tests Past 24 Hrs 08/11/18 08/11/18 08/11/18 00:15 16:05 16:05 WBC 13.9 H RBC 3.22 L Hgb 9.5 L Hct 30.9 L MCV 96.0 MCH 29.5 MCHC 30.7 L RDW 18.6 H RDW Differential 64.1 H Plt Count 674 H MPV 8.9 Immature Gran % (Auto) 1.300 H Neut % (Auto) 79.0 H Lymph % (Auto) 10.6 L [place] % (Auto) 6.3 Eos % (Auto) 2.4 Baso % (Auto) 0.4 Absolute Neuts (auto) 11.0 H Absolute Lymphs (auto) 1.47 Total Counted Not Reportable PT 18.5 H INR 1.6 APTT 44.5 H Sodium Potassium Chloride Carbon Dioxide Anion Gap BUN Creatinine Estim Creat Clear Calc Est GFR (MDRD) Af Amer Est GFR (MDRD) Non-Af BUN/Creatinine Ratio Glucose Lactic Acid Calcium Total Bilirubin AST ALT Alkaline Phosphatase Total Protein Albumin Globulin Albumin/Globulin Ratio Urine Color Urine Clarity Urine pH Ur Specific [place] Urine Protein Urine Glucose (UA) Urine Ketones Urine Occult Blood Urine Nitrite Urine Bilirubin Urine Urobilinogen Ur Leukocyte Esterase Urine RBC Urine WBC Ur Squamous Epith Cells Urine Bacteria Urine Mucus Urine Yeast S.aureus Protein A PCR POSITIVE H MRSA (PCR) POSITIVE H 08/11/18 08/11/18 08/11/18 16:05 16:05 16:40 WBC RBC Hgb Hct MCV MCH MCHC RDW RDW Differential Plt Count MPV Immature Gran % (Auto) Neut % (Auto) Lymph % (Auto) [place] % (Auto) Eos % (Auto) Baso % (Auto) Absolute Neuts (auto) Absolute Lymphs (auto) Total Counted PT INR APTT Sodium 133 L Potassium 5.0 Chloride 101 Carbon Dioxide 19.0 L Anion Gap 13 BUN 59 H Creatinine 1.37 H Estim Creat Clear Calc 32.06 Est GFR (MDRD) Af Amer 49 L Est GFR (MDRD) Non-Af 41 L BUN/Creatinine Ratio 43.1 H Glucose 113 H Lactic Acid 4.6 H* Calcium 9.1 Total Bilirubin 0.40 AST 75 H ALT 41 Alkaline Phosphatase 97 Total Protein 7.4 Albumin 1.9 L Globulin 5.5 H Albumin/Globulin Ratio 0.3 L Urine Color Yellow Urine Clarity Sl. Cloudy Urine pH 5.0 Ur Specific [place] 1.010 Urine Protein 30 H Urine Glucose (UA) Normal Urine Ketones Negative Urine Occult Blood 25 H Urine Nitrite Negative Urine Bilirubin Negative Urine Urobilinogen Normal Ur Leukocyte Esterase 500 H Urine RBC 0-5 SEEN Urine WBC 10-25 SEEN Ur Squamous Epith Cells 0-5 SEEN Urine Bacteria RARE Urine Mucus 0 SEEN Urine Yeast 1+ S.aureus Protein A PCR MRSA (PCR) 08/11/18 08/12/18 08/12/18 20:45 06:40 11:10 WBC RBC Hgb Hct MCV MCH MCHC RDW RDW Differential Plt Count MPV Immature Gran % (Auto) Neut % (Auto) Lymph % (Auto) [place] % (Auto) Eos % (Auto) Baso % (Auto) Absolute Neuts (auto) Absolute Lymphs (auto) Total Counted PT INR APTT Sodium Potassium Chloride Carbon Dioxide Anion Gap BUN Creatinine Estim Creat Clear Calc Est GFR (MDRD) Af Amer Est GFR (MDRD) Non-Af BUN/Creatinine Ratio Glucose Lactic Acid 4.3 H* 3.7 H 3.4 H Calcium Total Bilirubin AST ALT Alkaline Phosphatase Total Protein Albumin Globulin Albumin/Globulin Ratio Urine Color Urine Clarity Urine pH Ur Specific [place] Urine Protein Urine Glucose (UA) Urine Ketones Urine Occult Blood Urine Nitrite Urine Bilirubin Urine Urobilinogen Ur Leukocyte Esterase Urine RBC Urine WBC Ur Squamous Epith Cells Urine Bacteria Urine Mucus Urine Yeast S.aureus Protein A PCR MRSA (PCR) POC Glucose 08/12/18 08/12/18 08/11/18 12:02 06:32 23:38 POC Glucose 111 H 112 H 146 H 08/11/18 20:12 POC Glucose 117 H Medical Necessity - Tobacco Use Smoking Status: Never smoker Tobacco Use: Non-smoker Assessment/Plan All Active Problems (Last Reviewed 07/26/18 @ 15:47 by Alyssa Azevedo PA-C) Hyperkalemia (Acute) Acute hyperkalemia (Acute) Acute kidney failure (Acute) Metabolic acidemia (Acute) Anemia (Acute) Septic shock (Acute) Abscess, wrist (Acute) Septic olecranon bursitis of right elbow (Acute) Skin necrosis (Acute) Infected decubitus ulcer (Acute) Olecranon bursitis of right elbow (Acute) Severe sepsis (Acute) Complicated urinary tract infection (Acute) Hematuria (Acute) Pressure ulcer of left buttock, stage 2 (Resolved) Impressions 1. Septic shock with lactic acid greater than 4. Source of infection is unknown at this time. Blood cultures and urine culture are pending. She is on meropenem and will Linezolid...... we will continue broad-spectrum antibiotics until cultures are all available. She does have a history of chronic osteomyelitis and decubitus ulcers but they look good now. 2. Decubitus ulcers over the sacrum and bilateral ischial areas. There is beefy red granulation tissue in all ulcerations with no periwound erythema, no odor and no purulent discharge. 3. Chronic osteomyelitis of the pelvis 4. Suprapubic catheter for neurogenic bladder 5. Colostomy present 6. Vertigo-she denies any previous history of vertigo and has no loss of hearing and no tinnitus. 7. Hypertension 8. Gout no red hot or painful joints at present 9. Spinal stenosis-nonambulatory 10. Hyperlipidemia 11. Thrombocytosis which is new 12. Hypoalbuminemia 13. Dehydration 14. Stage I diastolic dysfunction PCR on the wound drainage is positive for staph aureus and MRSA. Urine, wound and blood cultures are pending. Check serum iron, TIBC and ferritin Recheck lab in the a.m. Start Antivert 25 mg p.o. 4 times daily as needed for vertigo Bolus with 1 L of normal saline now Interpretation Summary Normal LV size. Left ventricular systolic function is normal. The estimated ejection fraction is 60 %. Stage 1 diastolic dysfunction. Mild (1+) eccentric mitral valve insufficiency. Mild tricuspid valve insufficiency. Code Visit Inpatient E&M: 37700 Subs Hosp L3
--- NOTE | 2018-08-12 16:18 | PCM.HP.ID ---
Problem List (1) chronic osteomyelitis left ischial area Status: Chronic Reason for Consult: leukocytosis Consulted by: Dr. 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 No fever, no other recent abx. Wounds stable. No cough or SOB. Admitted here on vanc/zosyn, changed to linezolid/sreekanth. Recent procedures for GI bleed work-up. Full ROS performed and neg except as noted above. - Medical History Past Medical History (Chronic Problems): Chronic Problems (Last Reviewed 07/26/18 @ 15:47 by Alyssa Azevedo PA-C) Chronic osteomyelitis of left pelvic region (Chronic) 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 Right ischial pressure sore, stage 4 (Chronic) Open wound of left thigh (Chronic) traumatic skin tear posterior thigh Incompetent urethral closure mechanism (Chronic) Neurogenic bladder (Chronic) Stage II pressure ulcer (Chronic) Chronic suprapubic catheter (Chronic) Diabetes mellitus type 2 in nonobese (Chronic) Hypertension (Chronic) Gout (Chronic) with arthropathy Pressure ulcer of left buttock, stage 3 (Chronic) left lower buttock/upper thigh area Diabetes mellitus (Chronic) Pressure ulcer of right buttock, stage 3 (Chronic) Diabetic neuropathy, type II diabetes mellitus (Chronic) Malnutrition (Chronic) Back pain (Chronic) Arthritis (Chronic) 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 significance to followup Anemia of chronic disease (Chronic) Physical deconditioning (Chronic) Dupuytren's contracture of right hand (Chronic) Spinal stenosis (Chronic) Hyperlipidemia (Chronic) RP (rectal prolapse) (Chronic) Allergies/Adverse Reactions: Allergies No Known Allergies Allergy (Verified 07/20/18 20:02) Home Medications: Ambulatory Orders Medication Instructions Recorded Allopurinol [Zyloprim] 200 mg PO DAILY 07/05/14 Multivitamins,Therapeutic 1 tab PO DAILY 07/05/14 [Multivitamin] Timolol Maleate [Timoptic-XE 0.5%] 1 drp EACH EYE DAILY 07/05/14 Ascorbic Acid [Vitamin C] 500 mg PO DAILY@0800 09/09/17 Metformin HCl [Glucophage] 1,000 mg PO BID 02/26/18 Gabapentin [Neurontin] 200 mg PO TID 06/16/18 Lactobacillus Acidophilus 1 cap PO DAILY 06/16/18 [Acidophilus] Linagliptin [Tradjenta] 5 mg PO DAILY 06/16/18 Polyethylene Glycol 3350 [Miralax] 17 gm PO DAILY 06/16/18 Insulin Lispro [Humalog KwikPen] See Protocol SC ACHS insuln.pen 06/22/18 Citric AC/Gluconolact/Mag Carb 30 ml IR DAILY 07/20/18 [Renacidin Irrigation Solution] Furosemide [Lasix] 20 mg PO DAILY 07/20/18 Latanoprost 0.005% [Xalatan 1 drop EACH EYE QHS 07/20/18 Opthalmic] Mirabegron [Myrbetriq] 50 mg PO DAILY 07/20/18 Amoxicillin 875 mg PO BID 08/11/18 Apixaban [Eliquis] 5 mg PO BID 08/11/18 Losartan Potassium [Cozaar] 25 mg PO DAILY 08/11/18 Metoprolol Tartrate [Lopressor 25 mg PO BID 08/11/18 (beta honey)] Multivit,Stress Formula/Zinc 1 tab PO BID 08/11/18 [Stress Formula with Zinc Tab] Oxycodone HCl/Acetaminophen 1 tab PO Q4H PRN PRN 08/11/18 [Percocet 5-325 mg Tablet] - Social History Tobacco Use: non-smoker Vital Signs Temp Pulse Resp BP Pulse Ox 97.9 F 100 18 97/58 L 100 08/12/18 12:23 08/12/18 12:23 08/12/18 12:23 08/12/18 12:23 08/12/18 12:23 Oxygen Delivery Method Room Air Weight: 67.3 kg Body Mass Index (BMI) 26.2 Finger Stick Blood Glucose 154 Microbiology Past 72 Hours 08/11/18 23:45 Gram Stain - Final Ulcer, Decubitus - Open/Non-Healing Wound Laboratory Tests Past 24 Hrs 08/11/18 08/11/18 08/11/18 00:15 16:05 16:05 WBC 13.9 H RBC 3.22 L Hgb 9.5 L Hct 30.9 L MCV 96.0 MCH 29.5 MCHC 30.7 L RDW 18.6 H RDW Differential 64.1 H Plt Count 674 H MPV 8.9 Immature Gran % (Auto) 1.300 H Neut % (Auto) 79.0 H Lymph % (Auto) 10.6 L [place] % (Auto) 6.3 Eos % (Auto) 2.4 Baso % (Auto) 0.4 Absolute Neuts (auto) 11.0 H Absolute Lymphs (auto) 1.47 Total Counted Not Reportable PT 18.5 H INR 1.6 APTT 44.5 H Sodium Potassium Chloride Carbon Dioxide Anion Gap BUN Creatinine Estim Creat Clear Calc Est GFR (MDRD) Af Amer Est GFR (MDRD) Non-Af BUN/Creatinine Ratio Glucose Lactic Acid Calcium Total Bilirubin AST ALT Alkaline Phosphatase Total Protein Albumin Globulin Albumin/Globulin Ratio Urine Color Urine Clarity Urine pH Ur Specific [place] Urine Protein Urine Glucose (UA) Urine Ketones Urine Occult Blood Urine Nitrite Urine Bilirubin Urine Urobilinogen Ur Leukocyte Esterase Urine RBC Urine WBC Ur Squamous Epith Cells Urine Bacteria Urine Mucus Urine Yeast S.aureus Protein A PCR POSITIVE H MRSA (PCR) POSITIVE H 08/11/18 08/11/18 08/11/18 16:05 16:05 16:40 WBC RBC Hgb Hct MCV MCH MCHC RDW RDW Differential Plt Count MPV Immature Gran % (Auto) Neut % (Auto) Lymph % (Auto) [place] % (Auto) Eos % (Auto) Baso % (Auto) Absolute Neuts (auto) Absolute Lymphs (auto) Total Counted PT INR APTT Sodium 133 L Potassium 5.0 Chloride 101 Carbon Dioxide 19.0 L Anion Gap 13 BUN 59 H Creatinine 1.37 H Estim Creat Clear Calc 32.06 Est GFR (MDRD) Af Amer 49 L Est GFR (MDRD) Non-Af 41 L BUN/Creatinine Ratio 43.1 H Glucose 113 H Lactic Acid 4.6 H* Calcium 9.1 Total Bilirubin 0.40 AST 75 H ALT 41 Alkaline Phosphatase 97 Total Protein 7.4 Albumin 1.9 L Globulin 5.5 H Albumin/Globulin Ratio 0.3 L Urine Color Yellow Urine Clarity Sl. Cloudy Urine pH 5.0 Ur Specific [place] 1.010 Urine Protein 30 H Urine Glucose (UA) Normal Urine Ketones Negative Urine Occult Blood 25 H Urine Nitrite Negative Urine Bilirubin Negative Urine Urobilinogen Normal Ur Leukocyte Esterase 500 H Urine RBC 0-5 SEEN Urine WBC 10-25 SEEN Ur Squamous Epith Cells 0-5 SEEN Urine Bacteria RARE Urine Mucus 0 SEEN Urine Yeast 1+ S.aureus Protein A PCR MRSA (PCR) 08/11/18 08/12/18 08/12/18 20:45 06:40 11:10 WBC RBC Hgb Hct MCV MCH MCHC RDW RDW Differential Plt Count MPV Immature Gran % (Auto) Neut % (Auto) Lymph % (Auto) [place] % (Auto) Eos % (Auto) Baso % (Auto) Absolute Neuts (auto) Absolute Lymphs (auto) Total Counted PT INR APTT Sodium Potassium Chloride Carbon Dioxide Anion Gap BUN Creatinine Estim Creat Clear Calc Est GFR (MDRD) Af Amer Est GFR (MDRD) Non-Af BUN/Creatinine Ratio Glucose Lactic Acid 4.3 H* 3.7 H 3.4 H Calcium Total Bilirubin AST ALT Alkaline Phosphatase Total Protein Albumin Globulin Albumin/Globulin Ratio Urine Color Urine Clarity Urine pH Ur Specific [place] Urine Protein Urine Glucose (UA) Urine Ketones Urine Occult Blood Urine Nitrite Urine Bilirubin Urine Urobilinogen Ur Leukocyte Esterase Urine RBC Urine WBC Ur Squamous Epith Cells Urine Bacteria Urine Mucus Urine Yeast S.aureus Protein A PCR MRSA (PCR) - Other Studies Radiology: [] reviewed Other Studies: [] Route of nutrition/ use of supplements: [] Nutritional Intake: [] IV Site: [] Rea Catheter: [] - Physical Exam General: Alert, Oriented x3, Cooperative, No apparent distress HEENT: Atraumatic, PERRLA, EOMI Neck: Supple, No Nodes Lungs: Clear to auscultation, Normal air movement Cardiovascular: Regular rate, Regular Rhythm, No murmurs Abdomen: Soft, Non Tender, Non-Distended Extremities: No edema Skin: Ulcer/ Wound - reviewed photos IV Site: Peripheral, without redness Musculoskeletal: No Tenderness to Palpation of Joints or Extremities Neurological: Cranial nerves II-XII grossly intact - Assessment/Plan Antibiotics: [] Assessment/Plan: [] Active and Suspected Problems (Last Reviewed 07/26/18 @ 15:47 by Alyssa Azevedo PA-C) Septic shock (Acute) Leukocytosis, chronic osteo - wounds look ok now. No fever here, bcx and ucx pending. Nonfocal symptoms. On broad empiric coverage with linezolid/sreekanth for now. Will follow, thank you
[2018-08-12 17:03] LABS: M R Staph aureus DNA By PCR Negative (Negative); Probe Check PASS; Specimen Processing Control PASS; Staph aureus DNA By PCR NEGATIVE (Negative)
[2018-08-12] MEDS: 0.9% Normal Saline 1,000 ML 500 ML IV (17:26)
[2018-08-12 17:31] LABS: Bedside Glucose 125 mg/dL (70-110)
[2018-08-12 17:37] LABS: Bacteria 0 SEEN /hpf (None Seen); Mucous, Urine 0 SEEN /hpf (<or=2+)
[2018-08-12 17:45] LABS: Color, Urine Yellow (Yellow); Glucose, Dipstick Normal (Normal); Ketone-Dipstick Negative (Negative); Leukocyte Esterase-Dipstick 100 /ul (Negative); Nitrite-Dipstick Negative (Negative); Occult Blood-Urine 10 /ul (Negative); Protein-Dipstick 30 mg/dl (Negative); Urine Bilirubin Dipstick Negative (Negative); Urine Clarity Sl. Cloudy (Clear); Urine Urobilinogen Normal (Normal)
[2018-08-12 18:00] LABS: Red Blood Cells-Urine 0-5 SEEN /hpf (0-5); Squamous Epithelial Cells - UA 0-5 SEEN /hpf (5-10); Transitional Epithelial - Ur 0-5 SEEN /hpf (0-5); White Blood Cells 10-25 SEEN /hpf (0-5)
[2018-08-12 18:01] LABS: Fine Granular Cast- Urine 0-5 SEEN /lpf (0-5)
[2018-08-12] MEDS: 0.9% NaCl Peripheral Flush Adult/Peds IV (19:56)
[2018-08-12] MEDS: Ondansetron 4 MG/2 ML Vial IV (19:56)
[2018-08-12] MEDS: Latanoprost 0.005% 1 Bottle 1 DRP EACH EYE (21:22)
[2018-08-12] MEDS: Ipratropium Bromide 0.06% NASAL SPRAY 2 SPRAY NASAL (21:33)
[2018-08-12 22:01] LABS: Bedside Glucose 128 mg/dL (70-110)
--- NOTE | 2018-08-12 22:29 | PN.SURG_ITS ---
Subjective: Patient is known to me. She had surgery on 06/17/18 where she underwent excision infected necrotic sacral pressure sore, Stage IV, with partial ostectomy for osteomyelitis and excision left ischial pressure sore, Stage IV, with partial ostectomy for osteomyelitis and excision right ischial pressure sore, Stage IV, with partial ostectomy for osteomyelitis. Cultures showed multiple organisms including MRSA. She was treated with Vancomycin and Zosyn and Diflucan and Bactrim. The pathology was positive for chronic osteomyelitis. She came from a facility to the ED because of lightheadedness, fatigue, and nausea and vomiting. Lactate was 4.6. WBC was 13.9. She was admitted for sepsis. She was started on Vancomycin and Zosyn and that has been changed to Zyvox and Meropenem. They have been using the VAC for wound care at the facility. - Physical Exam General: Alert, Oriented x3 HEENT: PERRLA, EOMI Oral: Moist Mucosa Neck: Supple Abdomen: Soft, Non-Distended Skin: Ulcer/ Wound - all three pressure sores (right ischial, sacral, and left ischial) are clean with some granulation tissue. No evidence of cellulitis, fluctuance, or purulent drainage. Will hold the VAC for now and proceed with Dakin's dressing changes. Vital Signs Temp Pulse Resp BP Pulse Ox 98.4 F 121 H 18 113/61 96 08/12/18 21:20 08/12/18 21:20 08/12/18 21:20 08/12/18 21:20 08/12/18 21:20 Oxygen Delivery Method Room Air Weight: 148 lb 5.938 oz Body Mass Index (BMI) 26.2 Finger Stick Blood Glucose 154 Intake and Output for Last 24 Hours 08/10/18 08/11/18 08/12/18 23:59 23:59 23:59 Intake Total 3980 / 3980 Output Total 1700 / 1700 Balance 2280 / 2280 Microbiology Past 72 Hours 08/12/18 17:20 Stool Occult Blood (NEVAEH) - Final Stool 08/11/18 23:45 Gram Stain - Final Ulcer, Decubitus - Open/Non-Healing Wound Laboratory Tests Past 24 Hrs 08/11/18 08/12/18 08/12/18 00:15 06:40 11:10 Lactic Acid 3.7 H 3.4 H Urine Color Urine Clarity Urine pH Ur Specific [place] Urine Protein Urine Glucose (UA) Urine Ketones Urine Occult Blood Urine Nitrite Urine Bilirubin Urine Urobilinogen Ur Leukocyte Esterase Urine RBC Urine WBC Ur Squamous Epith Cells Ur Transition Epith Cell Urine Bacteria Fine Granular Casts Urine Mucus S.aureus Protein A PCR POSITIVE H MRSA (PCR) POSITIVE H 08/12/18 08/12/18 13:20 17:20 Lactic Acid Urine Color Yellow Urine Clarity Sl. Cloudy Urine pH 6.0 Ur Specific [place] 1.010 Urine Protein 30 H Urine Glucose (UA) Normal Urine Ketones Negative Urine Occult Blood 10 H Urine Nitrite Negative Urine Bilirubin Negative Urine Urobilinogen Normal Ur Leukocyte Esterase 100 H Urine RBC 0-5 SEEN Urine WBC 10-25 SEEN Ur Squamous Epith Cells 0-5 SEEN Ur Transition Epith Cell 0-5 SEEN Urine Bacteria 0 SEEN Fine Granular Casts 0-5 SEEN Urine Mucus 0 SEEN S.aureus Protein A PCR NEGATIVE MRSA (PCR) Negative POC Glucose 08/12/18 08/12/18 08/12/18 21:35 17:11 12:02 POC Glucose 128 H 125 H 111 H 08/12/18 08/11/18 06:32 23:38 POC Glucose 112 H 146 H Medical Necessity - Tobacco Use Smoking Status: Never smoker Tobacco Use: Non-smoker Assessment/Plan All Active Problems (Last Reviewed 07/26/18 @ 15:47 by Alyssa Azevedo PA-C) Hyperkalemia (Acute) Acute hyperkalemia (Acute) Acute kidney failure (Acute) Metabolic acidemia (Acute) Anemia (Acute) Septic shock (Acute) Abscess, wrist (Acute) Septic olecranon bursitis of right elbow (Acute) Skin necrosis (Acute) Infected decubitus ulcer (Acute) Olecranon bursitis of right elbow (Acute) Severe sepsis (Acute) Complicated urinary tract infection (Acute) Hematuria (Acute) Pressure ulcer of left buttock, stage 2 (Resolved) 1. Sacral pressure sore, Stage IV. 2. Bilateral ischial pressure sores, Stage IV. 3. Chronic osteomyelitis. 4. Sepsis. 5. Diabetes mellitus. 6. History of UTI's. 7. Spinal stenosis. 8. History of MRSA. Wounds look stable with granulation tissue. There is no clinical evidence of invasive infection or abscess at the present time. Will hold the VAC and start Dakin's dressing changes. Will check a wound culture. At present she is on Zyvox and Meropenem. Prealbumin in June was 10.7. Encourage nutritional supplementation to help the healing process. Will order a CT Pelvis. After discharge, followup at the [facility]. Code Visit Inpatient E&M: 94397 Subs Hosp L2 - ICD-10 - L89.154, L89.314, L89.324, M86.652, A41.9, E11.9, M48.00, Z86.14
[2018-08-13] VITALS (13 sets, daily range): BP systolic 93–138; BP diastolic 47–77; PULSE 107–120; RESP 15–18; TEMP 36.4–36.9; O2SAT 99–100
[2018-08-13] MEDS: oxyCODONE 5 MG Tablet PO ×3 (00:58→20:55)
[2018-08-13] MEDS: 0.9% Normal Saline 1,000 ML 125 ML IV (03:41)
[2018-08-13 05:24] LABS: Absolute Lymphocyte Count 0.96 X10^3/ul (0.83-4.51); Absolute Neutrophil Count 5.7 X10^3/uL (2.0-7.7); Basophil# 0.04 X10^3/uL; Basophil% 0.5 % (0-1); Eosinophil# 0.35 X10^3/uL; Eosinophils% 4.4 % (0-5); Hematocrit 24.3 % (37-47); Hemoglobin 7.4 g/dl (12.0-15.0); Lymphocyte # 0.96 X10^3/ul (4.0); Lymphocyte % 12.1 % (19-41); Mean Corp Hgb Conc 30.5 g/gl (32-36); Mean Corpuscular Hgb 29.4 pg (27.0-32.0); Mean Corpuscular Volume 96.4 fL (81-99); Mean Platelet Vol. 8.5 fl (6.2-12.0); Monocyte# 0.68 X10^3/uL; Monocyte% 8.6 % (0-10); Neutrophil # 5.73 X10^3/uL (2.7-7.7); Neutrophil % 72.1 % (47-70); Platelet Count 445 K/mm3 (150-450); RBC Distribution Width CV 18.4 % (11.6-14.6); RBC Distribution Width SD 61.4 fl (35.1-43.9); Red Blood Count 2.52 M/mm3 (4.2-5.4); White Blood Count 7.9 K/mm3 (4.4-11.0)
[2018-08-13 05:29] LABS: POSITIVE COUNT YES; POSITIVE DIFFERENTIAL NO; POSITIVE MORPHOLOGY YES
[2018-08-13] MEDS: Gabapentin 100 MG Capsule 200 MG PO ×3 (05:35→22:40)
[2018-08-13 05:52] LABS: Anion Gap 11 (5-15); BUN 37 mg/dL (7-18); BUN/Creat Ratio 31.1 RATIO (10-20); Calcium,Total 7.6 mg/dL (8.5-10.1); Chloride 118 mmol/L (98-107); Creatinine, Serum 1.19 mg/dL (0.55-1.02); EST Glomerular Filtration Rate 48 mL/min (>60); Est Glom Filt Rate - Afr Amer 58 mL/min (>60); Estimated Creatinine Clearance 36.91 ml/min; Ferritin 365 ng/mL (8-252); Glucose 91 mg/dL (74-106); Iron 31 ug/dL (50-170); Iron Binding Capacity,Total 263 ug/dL (250-450); Magnesium 1.5 mg/dL (1.6-2.6); PERCENT IRON SATURATION 11.8 % (15.0-55.0); Phosphorus 2.9 mg/dL (2.5-4.9); Potassium 3.7 mmol/L (3.5-5.1); Sodium Level 144 mmol/L (136-145)
[2018-08-13 06:50] LABS: Bedside Glucose 96 mg/dL (70-110)
[2018-08-13] MEDS: Magnesium Sulfate 4gm/100mL 4 GM/100 ML IV.SOLN. IV (07:10)
[2018-08-13] MEDS: Multivitamins,Therapeutic Tablet 1 TABLET PO (10:15)
[2018-08-13] MEDS: Linezolid 600 MG Tablet PO (10:15)
[2018-08-13] MEDS: Ascorbic Acid 500 MG Tablet PO (10:15)
[2018-08-13] MEDS: Mirabegron 50 MG TAB.ER.24H PO (10:16)
[2018-08-13] MEDS: Allopurinol 100 MG Tablet 200 MG PO (10:16)
[2018-08-13] MEDS: APIXABAN 5 MG TABLET PO ×2 (10:17→22:40)
[2018-08-13] MEDS: Timolol 0.5% 5ML OPTH.BTL 5 DRP EACH EYE ×2 (10:17→21:01)
[2018-08-13] MEDS: Ipratropium Bromide 0.06% NASAL SPRAY 2 SPRAY NASAL ×2 (10:18→21:00)
--- NOTE | 2018-08-13 11:02 | CASEMGMT ---
Updates faxed to [facility]. ALEX spoke with Tracy and let her know patient is not returning today, but possibly over the weekend. Green sheet on chart. Plan: d/c back to [facility] under intermediate level of care. Ofelia GARCIA MSW
[2018-08-13 11:31] LABS: Bedside Glucose 145 mg/dL (70-110)
--- NOTE | 2018-08-13 12:39 | CT_ITS ---
STUDY: CT PELVIS WITHOUT CONTRAST REASON FOR EXAM: Female, 68 years old. Ischial pressure sores and suspected osteomyelitis RADIATION DOSAGE (If Supplied By Facility): CTDIvol = ( 14.45 ) mGy, DLP = ( 537.63 ) mGycm TECHNIQUE: Transaxial imaging of the pelvis was performed without oral contrast, and without intravenous administration of contrast material. Sagittal and coronal 2-D MPR Individualized dose optimization techniques were used for this CT. COMPARISON: CT pelvis 06/16/2017, CT abdomen and pelvis 11/23/2017, CT pelvis 06/14/2014. FINDINGS: Body wall soft tissues: 2.5 cm fat filled right periumbilical hernia, stable. Left lower quadrant colostomy, uncomplicated. Mild bilateral flank edema. Thickening of the skin of the superior medial aspect of each thigh. Correlate clinically for evidence of erythema that may reflect the presence of cellulitis. Wide open ulcers extend from the skin surface to the base of each ischial tuberosity. No significant change from prior imaging of 06/16/2018. Mild sclerosis of the left ischial tuberosity, reactive changes. Osteomalacia is cannot be entirely excluded. No abscess. No hip joint effusions. Moderately severe hip joint degenerative changes bilaterally. Rea catheter within decompressed urinary bladder. No acute intrapelvic process is evident. Prominent multilevel low lumbar spondylosis with osteopenia and scoliosis. Multilevel foraminal stenosis in particular on the left at L3 and S1 secondary to disc narrowing, disc margin osteophytic spurring, disc bulging and prominent facet hypertrophy. Associated with moderately prominent spinal canal stenosis at multiple levels. CT/Pelvis without IV Contrast IMPRESSION: Stable appearance of bilateral deep pressure ulcers extending from the skin surface to the base of each ischial tuberosity. No abscess. Stable mildly sclerotic features of the left ischial tuberosity, without lytic or permeative features. Electronically Signed: Deshaun Ham MD at 13:35 EDT Tel , Service support ,
[2018-08-13 14:14] LABS: Pathologist Review Reviewed
--- NOTE | 2018-08-13 14:52 | US_ITS ---
STUDY: RENAL ULTRASOUND - LIMITED REASON FOR EXAM: Female, 68 years old. Renal insufficiency TECHNIQUE: Ultrasound evaluation of the bilateral kidneys was performed with real-time ultrasonography and static grayscale imaging. COMPARISON: CT scan abdomen and pelvis November 23, 2017 with contrast FINDINGS: RIGHT KIDNEY: Normal location of the right kidney which is normal in size. The right kidney measures 11.2 x 6.3 x 4.8 cm. . There is focal scarring of the renal cortex. There Is increased echogenicity of the right kidney. There are multiple small benign-appearing cyst in the right kidney the largest of which is exophytic measuring 1.9 x 0.9 cm. The renal cortex measures.082 - 1.3 cm. There is no right renal mass or cyst. There are no right renal calculi. There is no right hydronephrosis. LEFT KIDNEY: Normal location of the left kidney which is normal in size. The left kidney measures 11.3 x 4.7 x 5.3 cm. There is increased echogenicity of the left kidney. The renal cortex measures1.0- 1.5 cm. There is small left renal cyst the largest of which measures 1.1 x 1.2 cm. These are similar in appearance to the prior study November 23, 2017. There are no left renal calculi. There is no left hydronephrosis. The bladder is not visualized. There is a Rea catheter in place. US/Kidney and Bladder IMPRESSION: Bilateral renal cortical thinning increased echogenicity suggesting underlying medical renal disease. Stable bilateral renal cysts. No evidence of hydronephrosis. The bladder is not visualized on this study there is a Rea catheter in place. Electronically Signed: Rea Rice MD at 20:26 EDT Tel , Service support ,
--- NOTE | 2018-08-13 14:53 | PCM.PROGNOTE ---
Patient Problems: Active and Suspected Problems (Last Reviewed 07/26/18 @ 15:47 by Alyssa Azevedo PA-C) Septic shock (Acute) Subjective: Day #2 meropenem The patient is a 68-year-old female with chronic nonhealing decubitus ulcers on the buttocks and both tubal spine areas. She has a chronic suprapubic catheter and a colostomy. She was admitted to the hospital on 08/11/2018 she was afebrile at admission but pulse rate was 113 and respiratory rate was 28. Lactic acid was markedly elevated at 4.6 but no source of infection has been identified. She was started on IV vancomycin and Zosyn but then transitioned to meropenem. Dr. Joseph has been consulted. There is a gram-negative miranda growing from the wound but the wound looks clean with no sign of infection. All events the past 24 hours of been reviewed. She has been afebrile since admission. Heart rate remains elevated at 110-111 since midnight. Blood pressures are better following hydration yesterday. She is 100% saturated on room air. Fluid balance on 08/12/2018 was 2778 All lab was personally reviewed. White blood cell count today is 7.9, down from 13.9 at admission. There are 72% neutrophils and 2.3% immature granulocytes. Hemoglobin is 7.4 and platelets are 445,000. Stool is Hemoccult negative. Serum iron is low at 31 and TIBC is 263. Iron saturation is low at 11.8 and the ferritin is 365,000. Phosphorus is normal at 2.9 and the magnesium is 1.5. BUN is 37, down from 59 at admission and the creatinine is 1.19, down from 1.37 at admission. She tells me that she feels better today. Denies SOB and the dizziness is much better. No complaints today. TSH and T4 are WNL Objective: General: Alert, Oriented x3, Cooperative, No apparent distress, looks better today and not as fatigued. HEENT: Atraumatic, PERRLA, Normocephalic Oral: Dry Mucosa Neck: No Nodes, Trachea Midline Lungs: Clear to auscultation, Normal air movement, R base is clear Cardiovascular: Regular Rhythm, tachycardic, normal S1, Normal S2, No murmurs, No Gallop Abdomen: Bowel Sounds Present, Soft, Non Tender, Non-Distended Extremities: No clubbing, Edema - non-pitting of the dorsum of the feet, has a lot of tightness in the muscles of the legs Musculoskeletal: Arthritic Changes, Muscle Wasting Neurological: Cranial nerves II-XII grossly intact Psych/Mental Status: Normal Affect, Appropriate - Physical Exam Vital Signs Temp Pulse Resp BP Pulse Ox 97.8 F 111 H 15 104/62 100 08/13/18 10:27 08/13/18 12:10 08/13/18 10:27 08/13/18 10:27 08/13/18 10:27 Oxygen Delivery Method Room Air Weight: 148 lb 5.938 oz Body Mass Index (BMI) 26.2 Finger Stick Blood Glucose 154 Intake and Output for Last 24 Hours 08/11/18 08/12/18 08/13/18 23:59 23:59 23:59 Intake Total 5103 / 5103 1950 / 1950 Output Total 2325 / 2325 1150 / 1150 Balance 2778 / 2778 800 / 800 Microbiology Past 72 Hours 08/11/18 16:40 Urine Culture - Final Urine Catheter - Catheter Yeast, not Vijaya albicans 08/12/18 17:20 Urine Culture - Preliminary Urine, Random 08/11/18 23:45 Gram Stain - Final Ulcer, Decubitus - Open/Non-Healing Wound Wound Culture - Preliminary Gram negative miranda 08/12/18 17:20 Stool Occult Blood (NEVAEH) - Final Stool Laboratory Tests Past 24 Hrs 08/12/18 08/12/18 08/13/18 13:20 17:20 04:54 WBC 7.9 RBC 2.52 L Hgb 7.4 L Hct 24.3 L MCV 96.4 MCH 29.4 MCHC 30.5 L RDW 18.4 H RDW Differential 61.4 H Plt Count 445 MPV 8.5 Immature Gran % (Auto) 2.300 H Neut % (Auto) 72.1 H Lymph % (Auto) 12.1 L [place] % (Auto) 8.6 Eos % (Auto) 4.4 Baso % (Auto) 0.5 Absolute Neuts (auto) 5.7 Absolute Lymphs (auto) 0.96 Total Counted Not Reportable Diff Path Review Reviewed Sodium Potassium Chloride Carbon Dioxide Anion Gap BUN Creatinine Estim Creat Clear Calc Est GFR (MDRD) Af Amer Est GFR (MDRD) Non-Af BUN/Creatinine Ratio Glucose Calcium Phosphorus Magnesium Iron TIBC Iron Saturation Ferritin Urine Color Yellow Urine Clarity Sl. Cloudy Urine pH 6.0 Ur Specific [place] 1.010 Urine Protein 30 H Urine Glucose (UA) Normal Urine Ketones Negative Urine Occult Blood 10 H Urine Nitrite Negative Urine Bilirubin Negative Urine Urobilinogen Normal Ur Leukocyte Esterase 100 H Urine RBC 0-5 SEEN Urine WBC 10-25 SEEN Ur Squamous Epith Cells 0-5 SEEN Ur Transition Epith Cell 0-5 SEEN Urine Bacteria 0 SEEN Fine Granular Casts 0-5 SEEN Urine Mucus 0 SEEN S.aureus Protein A PCR NEGATIVE MRSA (PCR) Negative 08/13/18 04:54 WBC RBC Hgb Hct MCV MCH MCHC RDW RDW Differential Plt Count MPV Immature Gran % (Auto) Neut % (Auto) Lymph % (Auto) [place] % (Auto) Eos % (Auto) Baso % (Auto) Absolute Neuts (auto) Absolute Lymphs (auto) Total Counted Diff Path Review Sodium 144 Potassium 3.7 Chloride 118 H Carbon Dioxide 15.0 L Anion Gap 11 BUN 37 H Creatinine 1.19 H Estim Creat Clear Calc 36.91 Est GFR (MDRD) Af Amer 58 L Est GFR (MDRD) Non-Af 48 L BUN/Creatinine Ratio 31.1 H Glucose 91 Calcium 7.6 L Phosphorus 2.9 Magnesium 1.5 L Iron 31 L TIBC 263 Iron Saturation 11.8 L Ferritin 365 H Urine Color Urine Clarity Urine pH Ur Specific [place] Urine Protein Urine Glucose (UA) Urine Ketones Urine Occult Blood Urine Nitrite Urine Bilirubin Urine Urobilinogen Ur Leukocyte Esterase Urine RBC Urine WBC Ur Squamous Epith Cells Ur Transition Epith Cell Urine Bacteria Fine Granular Casts Urine Mucus S.aureus Protein A PCR MRSA (PCR) POC Glucose 08/13/18 08/13/18 08/12/18 11:24 06:32 21:35 POC Glucose 145 H 96 128 H 08/12/18 17:11 POC Glucose 125 H Medical Necessity - Tobacco Use Smoking Status: Never smoker Tobacco Use: Non-smoker Assessment/Plan All Active Problems (Last Reviewed 07/26/18 @ 15:47 by Alyssa Azevedo PA-C) Hyperkalemia (Acute) Acute hyperkalemia (Acute) Acute kidney failure (Acute) Metabolic acidemia (Acute) Anemia (Acute) Septic shock (Acute) Abscess, wrist (Acute) Septic olecranon bursitis of right elbow (Acute) Skin necrosis (Acute) Infected decubitus ulcer (Acute) Olecranon bursitis of right elbow (Acute) Severe sepsis (Acute) Complicated urinary tract infection (Acute) Hematuria (Acute) Pressure ulcer of left buttock, stage 2 (Resolved) Day # 2 meropenem and linezolid Impressions 1. Septic shock with lactic acid greater than 4. Source of infection is unknown at this time. Blood cultures and urine culture have no growth to date . 2. Decubitus ulcers over the sacrum and bilateral ischial areas. There is beefy red granulation tissue in all ulcerations with no periwound erythema, no odor and no purulent discharge. 3. Chronic osteomyelitis of the pelvis 4. Suprapubic catheter for neurogenic bladder 5. Colostomy present 6. Vertigo-she denies any previous history of vertigo and has no loss of hearing and no tinnitus. 7. Hypertension 8. Gout no red hot or painful joints at present 9. Spinal stenosis-nonambulatory 10. Hyperlipidemia 11. Thrombocytosis which is new 12. Hypoalbuminemia 13. Dehydration 14. Stage I diastolic dysfunction 15. elevated creat - previously 0.3 to 0.94 prior to July.....was on Vanco - toxicity? CT scan of the abd and the pelvis in the past showed normal kidneys 16. Anemia with a normal MCV at 96.4 but a markedly increased RDW at 18.4. 17. Hypomagnesemia-supplemented PCR on the wound drainage is negative for staph aureus and MRSA Wound culture is growing a gram-negative miranda but there is no evidence of infection and this is likely representing colonization. heme stool is negative Patient is persistently tachycardic with a normal TSH and T4. Mucous membranes are very dry and the BUN/creatinine ratio is 31 despite hydration. She is still c/o dizziness We will transfuse with 2 units of packed red blood cells tonight and recheck CBC in the a.m. We will also check reticulocyte count, B12 and folate since the MCV is normal but the RDW is very increased. Discussed with Dr. Joseph and antibiotics have been discontinued. Recheck lab in the a.m. including an ESR and CRP. Interpretation Summary Normal LV size. Left ventricular systolic function is normal. The estimated ejection fraction is 60 %. Stage 1 diastolic dysfunction. Mild (1+) eccentric mitral valve insufficiency. Mild tricuspid valve insufficiency. Code Visit Inpatient E&M: 73836 Subs Hosp L2
[2018-08-13 15:53] LABS: Thyroid Stim Hormone (TSH) 1.45 uIU/mL (0.358-3.74)
--- NOTE | 2018-08-13 16:51 | PN.ID_ITS ---
Patient Problems: Active and Suspected Problems (Last Reviewed 07/26/18 @ 15:47 by Alyssa Azevedo PA-C) Septic shock (Acute) Subjective: Feeling better, no fever, no new pain - Physical Exam General: Alert, Cooperative, No apparent distress Lungs: Clear to auscultation, Normal air movement Cardiovascular: Regular rate, Regular Rhythm Abdomen: Soft, Non Tender, Non-Distended Skin: Ulcer/ Wound - reviewed photos Vital Signs Temp Pulse Resp BP Pulse Ox 97.8 F 109 H 15 104/62 100 08/13/18 10:27 08/13/18 16:19 08/13/18 10:27 08/13/18 10:27 08/13/18 10:27 Oxygen Delivery Method Room Air Weight: 67.3 kg Body Mass Index (BMI) 26.2 Finger Stick Blood Glucose 154 Intake and Output for Last 24 Hours 08/11/18 08/12/18 08/13/18 23:59 23:59 23:59 Intake Total 5103 / 5103 1950 / 1950 Output Total 2325 / 2325 1150 / 1150 Balance 2778 / 2778 800 / 800 Microbiology Past 72 Hours 08/11/18 16:40 Urine Culture - Final Urine Catheter - Catheter Yeast, not Vijaya albicans 08/12/18 17:20 Urine Culture - Preliminary Urine, Random 08/11/18 23:45 Gram Stain - Final Ulcer, Decubitus - Open/Non-Healing Wound Wound Culture - Preliminary Gram negative miranda 08/12/18 17:20 Stool Occult Blood (NEVAEH) - Final Stool Laboratory Tests Past 24 Hrs 08/12/18 08/12/18 08/13/18 13:20 17:20 04:54 WBC 7.9 RBC 2.52 L Hgb 7.4 L Hct 24.3 L MCV 96.4 MCH 29.4 MCHC 30.5 L RDW 18.4 H RDW Differential 61.4 H Plt Count 445 MPV 8.5 Immature Gran % (Auto) 2.300 H Neut % (Auto) 72.1 H Lymph % (Auto) 12.1 L [place] % (Auto) 8.6 Eos % (Auto) 4.4 Baso % (Auto) 0.5 Absolute Neuts (auto) 5.7 Absolute Lymphs (auto) 0.96 Total Counted Not Reportable Diff Path Review Reviewed Sodium Potassium Chloride Carbon Dioxide Anion Gap BUN Creatinine Estim Creat Clear Calc Est GFR (MDRD) Af Amer Est GFR (MDRD) Non-Af BUN/Creatinine Ratio Glucose Calcium Phosphorus Magnesium Iron TIBC Iron Saturation Ferritin TSH Free T4 Urine Color Yellow Urine Clarity Sl. Cloudy Urine pH 6.0 Ur Specific [place] 1.010 Urine Protein 30 H Urine Glucose (UA) Normal Urine Ketones Negative Urine Occult Blood 10 H Urine Nitrite Negative Urine Bilirubin Negative Urine Urobilinogen Normal Ur Leukocyte Esterase 100 H Urine RBC 0-5 SEEN Urine WBC 10-25 SEEN Ur Squamous Epith Cells 0-5 SEEN Ur Transition Epith Cell 0-5 SEEN Urine Bacteria 0 SEEN Fine Granular Casts 0-5 SEEN Urine Mucus 0 SEEN S.aureus Protein A PCR NEGATIVE MRSA (PCR) Negative 08/13/18 08/13/18 04:54 04:54 WBC RBC Hgb Hct MCV MCH MCHC RDW RDW Differential Plt Count MPV Immature Gran % (Auto) Neut % (Auto) Lymph % (Auto) [place] % (Auto) Eos % (Auto) Baso % (Auto) Absolute Neuts (auto) Absolute Lymphs (auto) Total Counted Diff Path Review Sodium 144 Potassium 3.7 Chloride 118 H Carbon Dioxide 15.0 L Anion Gap 11 BUN 37 H Creatinine 1.19 H Estim Creat Clear Calc 36.91 Est GFR (MDRD) Af Amer 58 L Est GFR (MDRD) Non-Af 48 L BUN/Creatinine Ratio 31.1 H Glucose 91 Calcium 7.6 L Phosphorus 2.9 Magnesium 1.5 L Iron 31 L TIBC 263 Iron Saturation 11.8 L Ferritin 365 H TSH 1.45 Free T4 1.10 Urine Color Urine Clarity Urine pH Ur Specific [place] Urine Protein Urine Glucose (UA) Urine Ketones Urine Occult Blood Urine Nitrite Urine Bilirubin Urine Urobilinogen Ur Leukocyte Esterase Urine RBC Urine WBC Ur Squamous Epith Cells Ur Transition Epith Cell Urine Bacteria Fine Granular Casts Urine Mucus S.aureus Protein A PCR MRSA (PCR) POC Glucose 08/13/18 08/13/18 08/12/18 11:24 06:32 21:35 POC Glucose 145 H 96 128 H 08/12/18 17:11 POC Glucose 125 H Medical Necessity - Tobacco Use Smoking Status: Never smoker Tobacco Use: Non-smoker Route of nutrition/ use of supplements: [] Nutritional Intake: [] IV Site: [] Rea Catheter: [] - Assessment/Plan Antibiotics: [] Assessment/Plan: [] Active and Suspected Problems (Last Reviewed 07/26/18 @ 15:47 by Alyssa Azevedo PA-C) Septic shock (Acute) Leukocytosis, chronic osteo - wounds look ok now. No fever here, bcx and ucx negg. Nonfocal symptoms. On broad empiric coverage with linezolid/sreekanth for now. CT showed no new abscess. Dr. Myles following. Ok to stop iv abx, return to planned long course of po amox and d/c back to [facility]. Will follow, d/w primary team
[2018-08-13 17:25] LABS: Bedside Glucose 146 mg/dL (70-110)
[2018-08-13 17:53] LABS: Immature Platelet Fraction 1.6 % (1.0-7.9); RET-HE 30.6 pg (30-35); Reticulocyte Count 3.18 % (0.5-1.5)
[2018-08-13 19:58] LABS: Urine Sodium 117 mmol/L (Not Establ.)
--- NOTE | 2018-08-13 20:20 | NURSING ---
Was asked by primary RN to start another IV site. She has 1 site, will be receiving blood transfusion. Attempted x 2 for 2nd IV line. Unsuccessful.
[2018-08-13] MEDS: 0.9% Normal Saline 1,000 ML 80 ML IV (20:41)
--- NOTE | 2018-08-13 20:42 | NURSING ---
three knife trimmer attempted to place second IV for blood transfusions without success. Will use current IV and placed back on continuous fluids after 2 units are transfused.
[2018-08-13] MEDS: Latanoprost 0.005% 1 Bottle 1 DRP EACH EYE (21:01)
[2018-08-13] MEDS: AMOXICILLIN 500 MG CAPSULE PO (22:40)
[2018-08-13 22:46] LABS: Bedside Glucose 194 mg/dL (70-110)
[2018-08-13] MEDS: Insulin Lispro 100 UNIT/ML INSULN.PEN SC (22:46)
[2018-08-14] VITALS (17 sets, daily range): BP systolic 111–138; BP diastolic 58–72; PULSE 104–117; RESP 16–18; TEMP 36.2–36.9; O2SAT 98–100
[2018-08-14] MEDS: Acetaminophen 325 MG Tablet 650 MG PO ×2 (00:11→09:55)
[2018-08-14] MEDS: oxyCODONE 5 MG Tablet PO ×2 (02:11→12:53)
[2018-08-14] MEDS: Gabapentin 100 MG Capsule 200 MG PO ×2 (06:14→12:49)
[2018-08-14] MEDS: AMOXICILLIN 500 MG CAPSULE PO ×2 (06:14→12:49)
[2018-08-14 07:11] LABS: Bedside Glucose 104 mg/dL (70-110)
[2018-08-14 07:51] LABS: Hematocrit 30.3 % (37-47); Hemoglobin 9.8 g/dl (12.0-15.0); Mean Corp Hgb Conc 32.3 g/gl (32-36); Mean Corpuscular Hgb 29.3 pg (27.0-32.0); Mean Corpuscular Volume 90.7 fL (81-99); Mean Platelet Vol. 8.3 fl (6.2-12.0); Platelet Count 351 K/mm3 (150-450); RBC Distribution Width CV 18.7 % (11.6-14.6); RBC Distribution Width SD 61.6 fl (35.1-43.9); Red Blood Count 3.34 M/mm3 (4.2-5.4); White Blood Count 8.5 K/mm3 (4.4-11.0)
[2018-08-14 08:02] LABS: Scan Indicated on CBC? Y/N NO
[2018-08-14] MEDS: Multivitamins,Therapeutic Tablet 1 TABLET PO (08:17)
[2018-08-14] MEDS: Ascorbic Acid 500 MG Tablet PO (08:17)
[2018-08-14 08:19] LABS: Anion Gap 10 (5-15); BUN 27 mg/dL (7-18); BUN/Creat Ratio 24.3 RATIO (10-20); Calcium,Total 7.8 mg/dL (8.5-10.1); Chloride 114 mmol/L (98-107); Creatinine, Serum 1.11 mg/dL (0.55-1.02); EST Glomerular Filtration Rate 52 mL/min (>60); Est Glom Filt Rate - Afr Amer 63 mL/min (>60); Estimated Creatinine Clearance 39.57 ml/min; Glucose 95 mg/dL (74-106); Magnesium 2.2 mg/dL (1.6-2.6); Potassium 4.1 mmol/L (3.5-5.1); Sodium Level 139 mmol/L (136-145)
[2018-08-14] MEDS: Ipratropium Bromide 0.06% NASAL SPRAY 2 SPRAY NASAL (09:49)
[2018-08-14] MEDS: APIXABAN 5 MG TABLET PO (09:50)
[2018-08-14] MEDS: Mirabegron 50 MG TAB.ER.24H PO (09:51)
[2018-08-14] MEDS: Timolol 0.5% 5ML OPTH.BTL 5 DRP EACH EYE (09:51)
[2018-08-14] MEDS: Allopurinol 100 MG Tablet 200 MG PO (09:52)
[2018-08-14 11:26] LABS: Bedside Glucose 150 mg/dL (70-110)
[2018-08-14] MEDS: Metoprolol Tartrate 25 MG Tablet PO (12:06)
[2018-08-14] MEDS: Insulin Lispro 100 UNIT/ML INSULN.PEN SC (12:06)
--- NOTE | 2018-08-14 14:53 | PCM.EXTCARCO ---
- Diet 08/12/18 12:18 ADA [Diet: Calorie Controlled] Type of Dietary Supplement:: sigifredo once daily Is pt able to select menu?: Yes How many daily calories?: 1800 calorie - Routine Orders/Code Status Enema Type: Fleetz Enema Frequency: Daily PRN Suppository Type: Dulcolax 10mg Suppository Frequency: Daily PRN Routine Lab Work: - - CBC, BMP Q Week Code Status: DNRCC-A - Wound(s) L ischium Wound Type: Pressure Injury Dressing Change: Wet to Dry Dressing sacrum/coccyx Wound Type: Pressure Injury R gluteal fold Wound Type: Pressure Injury R lateral foot Wound Type: Neuropathic/Diabetic Foot Ulcer R ischium Wound Type: Pressure Injury Dressing Change: Wet to Dry Dressing sacrum Wound Type: Pressure Injury Dressing Change: Wet to Dry Dressing - Suggestions for Active Care Change Position every (hours): 2 Times a day to sit in chair: 3 - Therapies Physical Therapy: Eval and Treat Occupational Therapy: Eval and Treat - Allergies/Procedures Done in Hospital Allergies/Adverse Reactions: Allergies No Known Allergies Allergy (Verified 07/20/18 20:02) Procedures: None - Type of Care/Length of Stay Estimated LOS: More Than 30 Days Type of Care Needed: Skilled Rehab Potential: Fair Prognosis: Fair - Additional Orders/Day of Discharge Additional Orders: Cleanse wounds to bilateral ischium and sacrum with normal saline. Apply Dakins moistened gauze and cover with dry dressings. Change twice daily and as needed. H&P will serve as current which was dated: 08/11/18 Day of Discharge: 08/14/18 - Dietary and Speech Recommendations Dietitian Recommendations/Changes: Rec CHO controlled diet when medically indicated. Rec 1 packet Sigifredo BID for wound healing- must be ordered from pharmacy. Will switch ONS from Ensure to Glucerna. - Follow Up Care Primary Care Physician: Phani Mackenzie MD [Primary Care Provider] - Please follow up with your Primary Care Physician in: 1 Week Please Follow Up With: [facility] When: 1-2 Weeks Please Follow Up With: Ivelisse Lewis PA When: As scheduled, 08/16/2018
--- NOTE | 2018-08-14 14:58 | PCM.DC.SUM ---
<Brittany Parker - Last Filed: 08/14/18 15:14> Discharge Date and Diagnosis Date of Admission: 08/11/18 Date of Discharge: 08/14/18 - Primary Discharge Diagnosis Active and Suspected Problems (Last Reviewed 07/26/18 @ 15:47 by Alyssa Azevedo PA-C) 1. Septic shock secondary to chronic decubitus ulcers involving sacrum and ischial areas-chronic osteomyelitis of the pelvis 2. Type 2 diabetes mellitus 3. Hypertension 4. Hyperlipidemia 5. Spinal stenosis and peripheral neuropathy with neurogenic bladder, paraplegia 6. Anemia of chronic disease 7. 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 Right ischial pressure sore, stage 4 (Chronic) Open wound of left thigh (Chronic) traumatic skin tear posterior thigh Incompetent urethral closure mechanism (Chronic) Neurogenic bladder (Chronic) Stage II pressure ulcer (Chronic) Chronic suprapubic catheter (Chronic) Diabetes mellitus type 2 in nonobese (Chronic) Hypertension (Chronic) Gout (Chronic) with arthropathy Pressure ulcer of left buttock, stage 3 (Chronic) left lower buttock/upper thigh area Diabetes mellitus (Chronic) Pressure ulcer of right buttock, stage 3 (Chronic) Diabetic neuropathy, type II diabetes mellitus (Chronic) Malnutrition (Chronic) Back pain (Chronic) Arthritis (Chronic) 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 significance to followup Anemia of chronic disease (Chronic) Physical deconditioning (Chronic) Dupuytren's contracture of right hand (Chronic) Spinal stenosis (Chronic) Hyperlipidemia (Chronic) RP (rectal prolapse) (Chronic) Hospital Course and Treatment Imaging Results: Diagnostic Data Chest X-Ray 08/11/18 15:50 IMPRESSION: No acute findings. Electronically Signed: Patricia Poon MD at 16:23 EDT Tel , Service support , Pelvis CT 08/13/18 12:39 IMPRESSION: Stable appearance of bilateral deep pressure ulcers extending from the skin surface to the base of each ischial tuberosity. No abscess. Stable mildly sclerotic features of the left ischial tuberosity, without lytic or permeative features. Electronically Signed: Deshaun Ham MD at 13:35 EDT Tel , Service support , Renal Ultrasound 08/13/18 14:52 IMPRESSION: Bilateral renal cortical thinning increased echogenicity suggesting underlying medical renal disease. Stable bilateral renal cysts. No evidence of hydronephrosis. The bladder is not visualized on this study there is a Rea catheter in place. Electronically Signed: Rea Rice MD at 20:26 EDT Tel , Service support , Consultations 08/11/18 19:40 Consult: Onc/Wound/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 Routine Comment: Operations: None Procedures: None Summary of Care Provided: The patient is a 68 year old F admitted for 2418 due to fatigue, vertigo, lethargy. 1. Septic shock secondary to chronic decubitus ulcers involving sacrum and ischial areas-chronic osteomyelitis of the pelvis. Wounds do not appear acutely infected however wound culture positive for Acinetobacter and gram-negative miranda. Blood culture shows no growth. Urine culture unremarkable. Patient treated with broad coverage linezolid/meropenem during admission. Discharged on p.o. amoxicillin per ID recommendations. Continue antibiotics until further follow-up with wound center/Dr. Myles reassessment as outpatient. Dr. Myles consulted during admission. Feels wounds look stable. No evidence of abscess at this time. Pelvic CT without abscess. Continue dressing changes BID including Dakins. Follow-up at wound center in 1 to 2 weeks. 2. Type 2 diabetes mellitus-continue home oral/insulin regimen. 3. Hypertension-continue home losartan regimen. 4. Hyperlipidemia-continue statin. 5. Spinal stenosis and peripheral neuropathy with neurogenic bladder, paraplegia-chronic Rea catheter. PT/OT. Resides at SNF. 6. Anemia of chronic disease 7. Recent DVT-continue Eliquis. General: Alert, Oriented x3, Cooperative, No apparent distress HEENT: Atraumatic, PERRLA, Normocephalic Oral: Dry Mucosa Neck: No Nodes, Trachea Midline Lungs: Clear to auscultation, Normal air movement, R base is clear Cardiovascular: Regular Rhythm, tachycardic, normal S1, Normal S2, No murmurs, No Gallop Abdomen: Bowel Sounds Present, Soft, Non Tender, Non-Distended Extremities: No clubbing, Edema-nonpitting bilateral lower extremities Skin: Dressings clean dry and intact Musculoskeletal: Arthritic Changes, Muscle Wasting Neurological: Cranial nerves II-XII grossly intact Psych/Mental Status: Normal Affect, Appropriate Patient seen and examined prior to discharge. Physical assessment as noted above. Patient is stable for discharge with follow up recommendations as noted above. This patient was seen by AVELINO Fuchs under the supervision of Dr. Souza. - Physical Exam Vital Signs Temp Pulse Resp BP Pulse Ox 97.3 F L 112 H 18 129/72 H 99 08/14/18 10:14 08/14/18 13:18 08/14/18 10:14 08/14/18 12:06 08/14/18 13:18 Oxygen Delivery Method Room Air Weight: 148 lb 5.938 oz Body Mass Index (BMI) 26.2 Finger Stick Blood Glucose 154 Intake and Output for Last 24 Hours 08/12/18 08/13/18 08/14/18 23:59 23:59 23:59 Intake Total 5103 / 5103 3656 / 3656 1709 / 1709 Output Total 2325 / 2325 2175 / 2175 900 / 900 Balance 2778 / 2778 1481 / 1481 809 / 809 Microbiology Past 72 Hours 08/11/18 16:05 Blood Culture - Preliminary Blood Culture (Wb) - Other No growth in 48 hours. 08/11/18 16:25 Blood Culture - Preliminary Blood Culture (Wb) - Arm Right No growth in 48 hours. 08/12/18 17:20 Urine Culture - Preliminary Urine, Random Yeast Like Organism 08/11/18 23:45 Gram Stain - Final Ulcer, Decubitus - Open/Non-Healing Wound Wound Culture - Preliminary Acinetobacter baumannii Gram negative miranda 08/11/18 16:40 Urine Culture - Final Urine Catheter - Catheter Yeast, not Vijaya albicans 08/12/18 17:20 Stool Occult Blood (NEVAEH) - Final Stool Laboratory Tests Past 24 Hrs 0408/13/18 08/13/18 04:54 17:32 17:32 WBC RBC Hgb Hct MCV MCH MCHC RDW RDW Differential Plt Count MPV Immature Plt Fraction 1.6 Retic Count 3.18 H Immature Retic Fraction 11.00 Retic Hgb Equivalent 30.6 Sodium Potassium Chloride Carbon Dioxide Anion Gap BUN Creatinine Estim Creat Clear Calc Est GFR (MDRD) Af Amer Est GFR (MDRD) Non-Af BUN/Creatinine Ratio Glucose Calcium Magnesium Vitamin B12 Folate TSH 1.45 Free T4 1.10 Ur Random Sodium Urine Creatinine Blood Type B POSITIVE Antibody Screen NEGATIVE Crossmatch See Detail 08/13/18 08/13/18 08/13/18 19:30 19:30 20:00 WBC RBC Hgb Hct MCV MCH MCHC RDW RDW Differential Plt Count MPV Immature Plt Fraction Retic Count Immature Retic Fraction Retic Hgb Equivalent Sodium Potassium Chloride Carbon Dioxide Anion Gap BUN Creatinine Estim Creat Clear Calc Est GFR (MDRD) Af Amer Est GFR (MDRD) Non-Af BUN/Creatinine Ratio Glucose Calcium Magnesium Vitamin B12 Pending Folate TSH Free T4 Ur Random Sodium 117 Urine Creatinine 19.90 Blood Type Antibody Screen Crossmatch 08/13/18 08/14/18 08/14/18 20:00 07:32 07:32 WBC 8.5 RBC 3.34 L Hgb 9.8 L Hct 30.3 L MCV 90.7 MCH 29.3 MCHC 32.3 RDW 18.7 H RDW Differential 61.6 H Plt Count 351 MPV 8.3 Immature Plt Fraction Retic Count Immature Retic Fraction Retic Hgb Equivalent Sodium 139 Potassium 4.1 Chloride 114 H Carbon Dioxide 15.0 L Anion Gap 10 BUN 27 H Creatinine 1.11 H Estim Creat Clear Calc 39.57 Est GFR (MDRD) Af Amer 63 Est GFR (MDRD) Non-Af 52 L BUN/Creatinine Ratio 24.3 H Glucose 95 Calcium 7.8 L Magnesium 2.2 Vitamin B12 Folate 19.10 TSH Free T4 Ur Random Sodium Urine Creatinine Blood Type Antibody Screen Crossmatch POC Glucose 08/14/18 08/14/18 08/13/18 11:15 06:41 22:39 POC Glucose 150 H 104 194 H 08/13/18 17:12 POC Glucose 146 H Home Medications: Medications to take at Discharge Allopurinol [Zyloprim] 200 mg PO DAILY 07/05/14 Multivitamins,Therapeutic [Multivitamin] 1 tab PO DAILY 07/05/14 Timolol Maleate [Timoptic-XE 0.5%] 1 drp EACH EYE DAILY 07/05/14 Ascorbic Acid [Vitamin C] 500 mg PO DAILY@0800 09/09/17 Metformin HCl [Glucophage] 1,000 mg PO BID 02/26/18 Gabapentin [Neurontin] 200 mg PO TID 06/16/18 Lactobacillus Acidophilus [Acidophilus] 1 cap PO DAILY 06/16/18 Linagliptin [Tradjenta] 5 mg PO DAILY 06/16/18 Polyethylene Glycol 3350 [Miralax] 17 gm PO DAILY 06/16/18 Insulin Lispro [Humalog KwikPen] See Protocol SC ACHS insuln.pen 06/22/18 Citric AC/Gluconolact/Mag Carb [Renacidin Irrigation Solution] 30 ml IR DAILY 07/20/18 Furosemide [Lasix] 20 mg PO DAILY 07/20/18 Latanoprost 0.005% [Xalatan Opthalmic] 1 drop EACH EYE QHS 07/20/18 Mirabegron [Myrbetriq] 50 mg PO DAILY 07/20/18 Apixaban [Eliquis] 5 mg PO BID 08/11/18 Losartan Potassium [Cozaar] 25 mg PO DAILY 08/11/18 Metoprolol Tartrate [Lopressor (beta honey)] 25 mg PO BID 08/11/18 Multivit,Stress Formula/Zinc [Stress Formula with Zinc Tab] 1 tab PO BID 08/11/18 Amoxicillin [Amoxil] 500 mg PO Q8 capsule 08/14/18 Meclizine HCl [Antivert] 25 mg PO 4X/DAY PRN PRN tablet 08/14/18 Oxycodone HCl/Acetaminophen [Percocet 5-325 mg Tablet] 1 tab PO Q4H PRN PRN #10 tab 08/14/18 Sodium Hypochlorite [Dakins Solution 0.25% (1/2 Strength)] 1 applic TOPICAL BID bottle 08/14/18 Following Prescrptions Were Given to Patient: Oxycodone HCl/Acetaminophen [Percocet 5-325 mg Tablet] 1 tab PO Q4H PRN PRN #10 tab PRN Reason: Pain Primary Care Physician: Phain Mackenzie MD [Primary Care Provider] - Please follow up with your Primary Care Physician in: 1 Week Please Follow Up With: Wound Center When: 1-2 Weeks Please Follow Up With: Ivelisse Lewis PA When: As scheduled, 08/16/2018 Disposition: [facility] facility Minutes spent on discharge:: 35 Patient Condition:: Stable Medical Necessity - Tobacco Use Smoking Status: Never smoker Tobacco Use: Non-smoker Meaningful Use Info Meaningful Use Diagnoses (Choose all that apply): None applicable <Yenifer Souza E - Last Filed: 08/15/18 11:22> Discharge Date and Diagnosis - Secondary Discharge Diagnosis Chronic Problems (Last Reviewed 07/26/18 @ 15:47 by Alyssa Azevedo PA-C) Chronic osteomyelitis of left pelvic region (Chronic) 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 Right ischial pressure sore, stage 4 (Chronic) Open wound of left thigh (Chronic) traumatic skin tear posterior thigh Incompetent urethral closure mechanism (Chronic) Neurogenic bladder (Chronic) Stage II pressure ulcer (Chronic) Chronic suprapubic catheter (Chronic) Diabetes mellitus type 2 in nonobese (Chronic) Hypertension (Chronic) Gout (Chronic) with arthropathy Pressure ulcer of left buttock, stage 3 (Chronic) left lower buttock/upper thigh area Diabetes mellitus (Chronic) Pressure ulcer of right buttock, stage 3 (Chronic) Diabetic neuropathy, type II diabetes mellitus (Chronic) Malnutrition (Chronic) Back pain (Chronic) Arthritis (Chronic) 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 significance to followup Anemia of chronic disease (Chronic) Physical deconditioning (Chronic) Dupuytren's contracture of right hand (Chronic) Spinal stenosis (Chronic) Hyperlipidemia (Chronic) RP (rectal prolapse) (Chronic) Hospital Course and Treatment Consultations 08/11/18 19:40 Consult: Onc/Wound/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 Routine Comment: Summary of Care Provided: Hospitalist note: Discharge summary above reviewed and I concur with the above discharge and treatment plan. This patient admitted because of weakness, fatigue and lethargy and she was found to have septic shock secondary to polymicrobial chronic infected decubitus ulcer of the sacrum as well as chronic osteomyelitis of the pelvis. According to plastic surgery, the wound does not appear to be acutely infected although wound cultures was positive for Acinetobacter, providentia and Gram positive organism. Patient was treated with IV meropenem and linezolid during this admission. On admission, lactic acid was 4.6 and with IV fluid therapy and IV antibodies, came down to 3.4. Blood cultures showed no growth in [address] Myles consulted during this admission and he recommended that there is no indication for surgical intervention or debridement. Infectious disease consulted and stated that there is no evidence of acute infection and recommended to treat patient with oral amoxicillin. Patient discharged back to the alf facility in a stable medical condition, discharged on amoxicillin according to infectious disease recommendation, continued on her other chronic home medications without any changes, recommended follow-up with PCP in 1 week, follow-up with the wound care center in 1 to 2 weeks. - Physical Exam General: Alert, Oriented x3, Cooperative, No apparent distress. HEENT: Atraumatic, PERRLA, EOMI. Neck: Supple, No JVD, Negative Carotid Bruits, Trachea Midline, Thyroid Normal. Lungs: Clear to auscultation, Normal air movement, No rhonchi, No wheeze, No rales. Cardiovascular: Regular rate, Regular Rhythm, Normal S1, Normal S2, PMI Normal. Abdomen: Bowel Sounds Present, Soft, Non Tender, Non-Distended, No Hepato-splenomegaly. Extremities: No clubbing, No cyanosis, nonpitting edema edema Skin: No rashes, No breakdown Neurological: Neuro grossly intact Vital Signs vital signs are stable. This note was generated with [employer] dictation software. It may contain incorrect words, spelling, and punctuation that were not noted in checking the note before signing. - Physical Exam Vital Signs Temp Pulse Resp BP Pulse Ox 97.3 F L 112 H 18 129/72 H 99 08/14/18 10:14 08/14/18 13:18 08/14/18 10:14 08/14/18 12:06 08/14/18 13:18 Oxygen Delivery Method Room Air Weight: 148 lb 5.938 oz Body Mass Index (BMI) 26.2 Finger Stick Blood Glucose 154 Intake and Output for Last 24 Hours 08/12/18 08/13/18 08/14/18 23:59 23:59 23:59 Intake Total 5103 / 5103 3656 / 3656 1709 / 1709 Output Total 2325 / 2325 2175 / 2175 900 / 900 Balance 2778 / 2778 1481 / 1481 809 / 809 Microbiology Past 72 Hours 08/12/18 17:20 Urine Culture - Final Urine, Random Yeast, not Vijaya albicans 08/11/18 16:05 Blood Culture - Preliminary Blood Culture (Wb) - Other No growth in 48 hours. 08/11/18 16:25 Blood Culture - Preliminary Blood Culture (Wb) - Arm Right No growth in 48 hours. 08/11/18 23:45 Gram Stain - Final Ulcer, Decubitus - Open/Non-Healing Wound Wound Culture - Preliminary Acinetobacter baumannii Gram negative miranda 08/11/18 16:40 Urine Culture - Final Urine Catheter - Catheter Yeast, not Vijaya albicans 08/12/18 17:20 Stool Occult Blood (NEVAEH) - Final Stool Laboratory Tests Past 24 Hrs 08/13/18 08/13/18 08/13/18 17:32 17:32 19:30 WBC RBC Hgb Hct MCV MCH MCHC RDW RDW Differential Plt Count MPV Immature Plt Fraction 1.6 Retic Count 3.18 H Immature Retic Fraction 11.00 Retic Hgb Equivalent 30.6 Sodium Potassium Chloride Carbon Dioxide Anion Gap BUN Creatinine Estim Creat Clear Calc Est GFR (MDRD) Af Amer Est GFR (MDRD) Non-Af BUN/Creatinine Ratio Glucose Calcium Magnesium Vitamin B12 Folate Ur Random Sodium Urine Creatinine 19.90 Blood Type B POSITIVE Antibody Screen NEGATIVE Crossmatch See Detail 08/13/18 08/13/18 08/13/18 19:30 20:00 20:00 WBC RBC Hgb Hct MCV MCH MCHC RDW RDW Differential Plt Count MPV Immature Plt Fraction Retic Count Immature Retic Fraction Retic Hgb Equivalent Sodium Potassium Chloride Carbon Dioxide Anion Gap BUN Creatinine Estim Creat Clear Calc Est GFR (MDRD) Af Amer Est GFR (MDRD) Non-Af BUN/Creatinine Ratio Glucose Calcium Magnesium Vitamin B12 Pending Folate 19.10 Ur Random Sodium 117 Urine Creatinine Blood Type Antibody Screen Crossmatch 08/14/18 08/14/18 07:32 07:32 WBC 8.5 RBC 3.34 L Hgb 9.8 L Hct 30.3 L MCV 90.7 MCH 29.3 MCHC 32.3 RDW 18.7 H RDW Differential 61.6 H Plt Count 351 MPV 8.3 Immature Plt Fraction Retic Count Immature Retic Fraction Retic Hgb Equivalent Sodium 139 Potassium 4.1 Chloride 114 H Carbon Dioxide 15.0 L Anion Gap 10 BUN 27 H Creatinine 1.11 H Estim Creat Clear Calc 39.57 Est GFR (MDRD) Af Amer 63 Est GFR (MDRD) Non-Af 52 L BUN/Creatinine Ratio 24.3 H Glucose 95 Calcium 7.8 L Magnesium 2.2 Vitamin B12 Folate Ur Random Sodium Urine Creatinine Blood Type Antibody Screen Crossmatch POC Glucose 08/14/18 08/14/18 08/13/18 11:15 06:41 22:39 POC Glucose 150 H 104 194 H 08/13/18 17:12 POC Glucose 146 H Disposition: [facility] facility Minutes spent on discharge:: 32 Patient Condition:: Stable Meaningful Use Info Meaningful Use Diagnoses (Choose all that apply): None applicable Code Visit Inpatient E&M: 22624 Disch Hosp
--- NOTE | 2018-08-14 15:12 | DS.PCM_ITS ---
<Brittany Parker - Last Filed: 08/14/18 15:14> Discharge Date and Diagnosis Date of Admission: 08/11/18 Date of Discharge: 08/14/18 - Primary Discharge Diagnosis Active and Suspected Problems (Last Reviewed 07/26/18 @ 15:47 by Alyssa Azevedo PA-C) 1. Septic shock secondary to chronic decubitus ulcers involving sacrum and ischial areas-chronic osteomyelitis of the pelvis 2. Type 2 diabetes mellitus 3. Hypertension 4. Hyperlipidemia 5. Spinal stenosis and peripheral neuropathy with neurogenic bladder, paraplegia 6. Anemia of chronic disease 7. 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 Right ischial pressure sore, stage 4 (Chronic) Open wound of left thigh (Chronic) traumatic skin tear posterior thigh Incompetent urethral closure mechanism (Chronic) Neurogenic bladder (Chronic) Stage II pressure ulcer (Chronic) Chronic suprapubic catheter (Chronic) Diabetes mellitus type 2 in nonobese (Chronic) Hypertension (Chronic) Gout (Chronic) with arthropathy Pressure ulcer of left buttock, stage 3 (Chronic) left lower buttock/upper thigh area Diabetes mellitus (Chronic) Pressure ulcer of right buttock, stage 3 (Chronic) Diabetic neuropathy, type II diabetes mellitus (Chronic) Malnutrition (Chronic) Back pain (Chronic) Arthritis (Chronic) 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 significance to followup Anemia of chronic disease (Chronic) Physical deconditioning (Chronic) Dupuytren's contracture of right hand (Chronic) Spinal stenosis (Chronic) Hyperlipidemia (Chronic) RP (rectal prolapse) (Chronic) Hospital Course and Treatment Imaging Results: Diagnostic Data Chest X-Ray 08/11/18 15:50 IMPRESSION: No acute findings. Electronically Signed: Patricia Poon MD at 16:23 EDT Tel , Service support , Pelvis CT 08/13/18 12:39 IMPRESSION: Stable appearance of bilateral deep pressure ulcers extending from the skin surface to the base of each ischial tuberosity. No abscess. Stable mildly sclerotic features of the left ischial tuberosity, without lytic or permeative features. Electronically Signed: Deshaun Ham MD at 13:35 EDT Tel , Service support , Renal Ultrasound 08/13/18 14:52 IMPRESSION: Bilateral renal cortical thinning increased echogenicity suggesting underlying medical renal disease. Stable bilateral renal cysts. No evidence of hydronephrosis. The bladder is not visualized on this study there is a Rea catheter in place. Electronically Signed: Rea Rice MD at 20:26 EDT Tel , Service support , Consultations 08/11/18 19:40 Consult: Onc/Wound/assembler skylights Routine Comment: Operations: None Procedures: None Summary of Care Provided: The patient is a 68 year old F admitted for 2418 due to fatigue, vertigo, lethargy. 1. Septic shock secondary to chronic decubitus ulcers involving sacrum and ischial areas-chronic osteomyelitis of the pelvis. Wounds do not appear acutely infected however wound culture positive for Acinetobacter and gram-negative miranda. Blood culture shows no growth. Urine culture unremarkable. Patient treated with broad coverage linezolid/meropenem during admission. Discharged on p.o. amoxicillin per ID recommendations. Continue antibiotics until further follow- up with wound center/Dr. Myles reassessment as outpatient. Dr. Myles consulted during admission. Feels wounds look stable. No evidence of abscess at this time. Pelvic CT without abscess. Continue dressing changes BID including Dakins. Follow-up at wound center in 1 to 2 weeks. 2. Type 2 diabetes mellitus-continue home oral/insulin regimen. 3. Hypertension-continue home losartan regimen. 4. Hyperlipidemia-continue statin. 5. Spinal stenosis and peripheral neuropathy with neurogenic bladder, paraplegia-chronic Rea catheter. PT/OT. Resides at SNF. 6. Anemia of chronic disease 7. Recent DVT-continue Eliquis. General: Alert, Oriented x3, Cooperative, No apparent distress HEENT: Atraumatic, PERRLA, Normocephalic Oral: Dry Mucosa Neck: No Nodes, Trachea Midline Lungs: Clear to auscultation, Normal air movement, R base is clear Cardiovascular: Regular Rhythm, tachycardic, normal S1, Normal S2, No murmurs, No Gallop Abdomen: Bowel Sounds Present, Soft, Non Tender, Non-Distended Extremities: No clubbing, Edema-nonpitting bilateral lower extremities Skin: Dressings clean dry and intact Musculoskeletal: Arthritic Changes, Muscle Wasting Neurological: Cranial nerves II-XII grossly intact Psych/Mental Status: Normal Affect, Appropriate Patient seen and examined prior to discharge. Physical assessment as noted above. Patient is stable for discharge with follow up recommendations as noted above. This patient was seen by AVELINO Fuchs under the supervision of Dr. Souza. - Physical Exam Vital Signs Temp Pulse Resp BP Pulse Ox 97.3 F L 112 H 18 129/72 H 99 08/14/18 10:14 08/14/18 13:18 08/14/18 10:14 08/14/18 12:06 08/14/18 13:18 Oxygen Delivery Method Room Air Weight: 148 lb 5.938 oz Body Mass Index (BMI) 26.2 Finger Stick Blood Glucose 154 Intake and Output for Last 24 Hours 08/12/18 08/13/18 08/14/18 23:59 23:59 23:59 Intake Total 5103 / 5103 3656 / 3656 1709 / 1709 Output Total 2325 / 2325 2175 / 2175 900 / 900 Balance 2778 / 2778 1481 / 1481 809 / 809 Microbiology Past 72 Hours 08/11/18 16:05 Blood Culture - Preliminary Blood Culture (Wb) - Other No growth in 48 hours. 08/11/18 16:25 Blood Culture - Preliminary Blood Culture (Wb) - Arm Right No growth in 48 hours. 08/12/18 17:20 Urine Culture - Preliminary Urine, Random Yeast Like Organism 08/11/18 23:45 Gram Stain - Final Ulcer, Decubitus - Open/Non-Healing Wound Wound Culture - Preliminary Acinetobacter baumannii Gram negative miranda 08/11/18 16:40 Urine Culture - Final Urine Catheter - Catheter Yeast, not Vijaya albicans 08/12/18 17:20 Stool Occult Blood (NEVAEH) - Final Stool Laboratory Tests Past 24 Hrs 0408/13/18 08/13/18 04:54 17:32 17:32 WBC RBC Hgb Hct MCV MCH MCHC RDW RDW Differential Plt Count MPV Immature Plt Fraction 1.6 Retic Count 3.18 H Immature Retic Fraction 11.00 Retic Hgb Equivalent 30.6 Sodium Potassium Chloride Carbon Dioxide Anion Gap BUN Creatinine Estim Creat Clear Calc Est GFR (MDRD) Af Amer Est GFR (MDRD) Non-Af BUN/Creatinine Ratio Glucose Calcium Magnesium Vitamin B12 Folate TSH 1.45 Free T4 1.10 Ur Random Sodium Urine Creatinine Blood Type B POSITIVE Antibody Screen NEGATIVE Crossmatch See Detail 08/13/18 08/13/18 08/13/18 19:30 19:30 20:00 WBC RBC Hgb Hct MCV MCH MCHC RDW RDW Differential Plt Count MPV Immature Plt Fraction Retic Count Immature Retic Fraction Retic Hgb Equivalent Sodium Potassium Chloride Carbon Dioxide Anion Gap BUN Creatinine Estim Creat Clear Calc Est GFR (MDRD) Af Amer Est GFR (MDRD) Non-Af BUN/Creatinine Ratio Glucose Calcium Magnesium Vitamin B12 Pending Folate TSH Free T4 Ur Random Sodium 117 Urine Creatinine 19.90 Blood Type Antibody Screen Crossmatch 08/13/18 08/14/18 08/14/18 20:00 07:32 07:32 WBC 8.5 RBC 3.34 L Hgb 9.8 L Hct 30.3 L MCV 90.7 MCH 29.3 MCHC 32.3 RDW 18.7 H RDW Differential 61.6 H Plt Count 351 MPV 8.3 Immature Plt Fraction Retic Count Immature Retic Fraction Retic Hgb Equivalent Sodium 139 Potassium 4.1 Chloride 114 H Carbon Dioxide 15.0 L Anion Gap 10 BUN 27 H Creatinine 1.11 H Estim Creat Clear Calc 39.57 Est GFR (MDRD) Af Amer 63 Est GFR (MDRD) Non-Af 52 L BUN/Creatinine Ratio 24.3 H Glucose 95 Calcium 7.8 L Magnesium 2.2 Vitamin B12 Folate 19.10 TSH Free T4 Ur Random Sodium Urine Creatinine Blood Type Antibody Screen Crossmatch POC Glucose 08/14/18 08/14/18 08/13/18 11:15 06:41 22:39 POC Glucose 150 H 104 194 H 08/13/18 17:12 POC Glucose 146 H Home Medications: Medications to take at Discharge Allopurinol [Zyloprim] 200 mg PO DAILY 07/05/14 Multivitamins,Therapeutic [Multivitamin] 1 tab PO DAILY 07/05/14 Timolol Maleate [Timoptic-XE 0.5%] 1 drp EACH EYE DAILY 07/05/14 Ascorbic Acid [Vitamin C] 500 mg PO DAILY@0800 09/09/17 Metformin HCl [Glucophage] 1,000 mg PO BID 02/26/18 Gabapentin [Neurontin] 200 mg PO TID 06/16/18 Lactobacillus Acidophilus [Acidophilus] 1 cap PO DAILY 06/16/18 Linagliptin [Tradjenta] 5 mg PO DAILY 06/16/18 Polyethylene Glycol 3350 [Miralax] 17 gm PO DAILY 06/16/18 Insulin Lispro [Humalog KwikPen] See Protocol SC ACHS insuln.pen 06/22/18 Citric AC/Gluconolact/Mag Carb [Renacidin Irrigation Solution] 30 ml IR DAILY 07/20/18 Furosemide [Lasix] 20 mg PO DAILY 07/20/18 Latanoprost 0.005% [Xalatan Opthalmic] 1 drop EACH EYE QHS 07/20/18 Mirabegron [Myrbetriq] 50 mg PO DAILY 07/20/18 Apixaban [Eliquis] 5 mg PO BID 08/11/18 Losartan Potassium [Cozaar] 25 mg PO DAILY 08/11/18 Metoprolol Tartrate [Lopressor (beta honey)] 25 mg PO BID 08/11/18 Multivit,Stress Formula/Zinc [Stress Formula with Zinc Tab] 1 tab PO BID 08/11/18 Amoxicillin [Amoxil] 500 mg PO Q8 capsule 08/14/18 Meclizine HCl [Antivert] 25 mg PO 4X/DAY PRN PRN tablet 08/14/18 Oxycodone HCl/Acetaminophen [Percocet 5-325 mg Tablet] 1 tab PO Q4H PRN PRN #10 tab 08/14/18 Sodium Hypochlorite [Dakins Solution 0.25% (1/2 Strength)] 1 applic TOPICAL BID bottle 08/14/18 Following Prescrptions Were Given to Patient: Oxycodone HCl/Acetaminophen [Percocet 5-325 mg Tablet] 1 tab PO Q4H PRN PRN #10 tab PRN Reason: Pain Primary Care Physician: Phani Mackenzie MD [Primary Care Provider] - Please follow up with your Primary Care Physician in: 1 Week Please Follow Up With: Wound Center When: 1-2 Weeks Please Follow Up With: Ivelisse Lewis PA When: As scheduled, 08/16/2018 Disposition: Senior Care facility Minutes spent on discharge:: 35 Patient Condition:: Stable Medical Necessity - Tobacco Use Smoking Status: Never smoker Tobacco Use: Non-smoker Meaningful Use Info Meaningful Use Diagnoses (Choose all that apply): None applicable <Yenifer Souza E - Last Filed: 08/15/18 11:22> Discharge Date and Diagnosis - Secondary Discharge Diagnosis Chronic Problems (Last Reviewed 07/26/18 @ 15:47 by Alyssa Azevedo PA-C) Chronic osteomyelitis of left pelvic region (Chronic) 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 Right ischial pressure sore, stage 4 (Chronic) Open wound of left thigh (Chronic) traumatic skin tear posterior thigh Incompetent urethral closure mechanism (Chronic) Neurogenic bladder (Chronic) Stage II pressure ulcer (Chronic) Chronic suprapubic catheter (Chronic) Diabetes mellitus type 2 in nonobese (Chronic) Hypertension (Chronic) Gout (Chronic) with arthropathy Pressure ulcer of left buttock, stage 3 (Chronic) left lower buttock/upper thigh area Diabetes mellitus (Chronic) Pressure ulcer of right buttock, stage 3 (Chronic) Diabetic neuropathy, type II diabetes mellitus (Chronic) Malnutrition (Chronic) Back pain (Chronic) Arthritis (Chronic) 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 significance to followup Anemia of chronic disease (Chronic) Physical deconditioning (Chronic) Dupuytren's contracture of right hand (Chronic) Spinal stenosis (Chronic) Hyperlipidemia (Chronic) RP (rectal prolapse) (Chronic) Hospital Course and Treatment Consultations 08/11/18 19:40 Consult: Onc/Wound/assembler skylights Routine Comment: Summary of Care Provided: Hospitalist note: Discharge summary above reviewed and I concur with the above discharge and treatment plan. This patient admitted because of weakness, fatigue and lethargy and she was found to have septic shock secondary to polymicrobial chronic infected decubitus ulcer of the sacrum as well as chronic osteomyelitis of the pelvis. According to plastic surgery, the wound does not appear to be acutely infected although wound cultures was positive for Acinetobacter, providentia and Gram positive organism. Patient was treated with IV meropenem and linezolid during this admission. On admission, lactic acid was 4.6 and with IV fluid therapy and IV antibodies, came down to 3.4. Blood cultures showed no growth in [address] Myles consulted during this admission and he recommended that there is no indication for surgical intervention or debridement. Infectious disease consulted and stated that there is no evidence of acute infection and recommended to treat patient with oral amoxicillin. [facility] to [facility] facility in a stable medical condition, discharged on amoxicillin according to infectious disease recommendation, continued on her other chronic home medications without any changes, recommended follow-up with PCP in 1 week, follow-up with the wound care center in 1 to 2 weeks. - Physical Exam General: Alert, Oriented x3, Cooperative, No apparent distress. HEENT: Atraumatic, PERRLA, EOMI. Neck: Supple, No JVD, Negative Carotid Bruits, Trachea Midline, Thyroid Normal. Lungs: Clear to auscultation, Normal air movement, No rhonchi, No wheeze, No rales. Cardiovascular: Regular rate, Regular Rhythm, Normal S1, Normal S2, PMI Normal. Abdomen: Bowel Sounds Present, Soft, Non Tender, Non-Distended, No Hepato- splenomegaly. Extremities: No clubbing, No cyanosis, nonpitting edema edema Skin: No rashes, No breakdown Neurological: Neuro grossly intact Vital Signs vital signs are stable. This note was generated with [employer] dictation software. It may contain incorrect words, spelling, and punctuation that were not noted in checking the note before signing. - Physical Exam Vital Signs Temp Pulse Resp BP Pulse Ox 97.3 F L 112 H 18 129/72 H 99 08/14/18 10:14 08/14/18 13:18 08/14/18 10:14 08/14/18 12:06 08/14/18 13:18 Oxygen Delivery Method Room Air Weight: 148 lb 5.938 oz Body Mass Index (BMI) 26.2 Finger Stick Blood Glucose 154 Intake and Output for Last 24 Hours 08/12/18 08/13/18 08/14/18 23:59 23:59 23:59 Intake Total 5103 / 5103 3656 / 3656 1709 / 1709 Output Total 2325 / 2325 2175 / 2175 900 / 900 Balance 2778 / 2778 1481 / 1481 809 / 809 Microbiology Past 72 Hours 08/12/18 17:20 Urine Culture - Final Urine, Random Yeast, not Vijaya albicans 08/11/18 16:05 Blood Culture - Preliminary Blood Culture (Wb) - Other No growth in 48 hours. 08/11/18 16:25 Blood Culture - Preliminary Blood Culture (Wb) - Arm Right No growth in 48 hours. 08/11/18 23:45 Gram Stain - Final Ulcer, Decubitus - Open/Non-Healing Wound Wound Culture - Preliminary Acinetobacter baumannii Gram negative miranda 08/11/18 16:40 Urine Culture - Final Urine Catheter - Catheter Yeast, not Vijaya albicans 08/12/18 17:20 Stool Occult Blood (NEVAEH) - Final Stool Laboratory Tests Past 24 Hrs 08/13/18 08/13/18 08/13/18 17:32 17:32 19:30 WBC RBC Hgb Hct MCV MCH MCHC RDW RDW Differential Plt Count MPV Immature Plt Fraction 1.6 Retic Count 3.18 H Immature Retic Fraction 11.00 Retic Hgb Equivalent 30.6 Sodium Potassium Chloride Carbon Dioxide Anion Gap BUN Creatinine Estim Creat Clear Calc Est GFR (MDRD) Af Amer Est GFR (MDRD) Non-Af BUN/Creatinine Ratio Glucose Calcium Magnesium Vitamin B12 Folate Ur Random Sodium Urine Creatinine 19.90 Blood Type B POSITIVE Antibody Screen NEGATIVE Crossmatch See Detail 08/13/18 08/13/18 08/13/18 19:30 20:00 20:00 WBC RBC Hgb Hct MCV MCH MCHC RDW RDW Differential Plt Count MPV Immature Plt Fraction Retic Count Immature Retic Fraction Retic Hgb Equivalent Sodium Potassium Chloride Carbon Dioxide Anion Gap BUN Creatinine Estim Creat Clear Calc Est GFR (MDRD) Af Amer Est GFR (MDRD) Non-Af BUN/Creatinine Ratio Glucose Calcium Magnesium Vitamin B12 Pending Folate 19.10 Ur Random Sodium 117 Urine Creatinine Blood Type Antibody Screen Crossmatch 08/14/18 08/14/18 07:32 07:32 WBC 8.5 RBC 3.34 L Hgb 9.8 L Hct 30.3 L MCV 90.7 MCH 29.3 MCHC 32.3 RDW 18.7 H RDW Differential 61.6 H Plt Count 351 MPV 8.3 Immature Plt Fraction Retic Count Immature Retic Fraction Retic Hgb Equivalent Sodium 139 Potassium 4.1 Chloride 114 H Carbon Dioxide 15.0 L Anion Gap 10 BUN 27 H Creatinine 1.11 H Estim Creat Clear Calc 39.57 Est GFR (MDRD) Af Amer 63 Est GFR (MDRD) Non-Af 52 L BUN/Creatinine Ratio 24.3 H Glucose 95 Calcium 7.8 L Magnesium 2.2 Vitamin B12 Folate Ur Random Sodium Urine Creatinine Blood Type Antibody Screen Crossmatch POC Glucose 08/14/18 08/14/18 08/13/18 11:15 06:41 22:39 POC Glucose 150 H 104 194 H 08/13/18 17:12 POC Glucose 146 H Disposition: Senior Care facility Minutes spent on discharge:: 32 Patient Condition:: Stable Meaningful Use Info Meaningful Use Diagnoses (Choose all that apply): None applicable Code Visit Inpatient E&M: 13679 Disch Hosp
--- NOTE | 2018-08-14 15:41 | PCA ---
Faxed discharge paperwork over to [facility] and spoke with DAMIAN Thompson on the phone and notified her on discharge and ETA of pickup time via [facility].
[2018-08-16 09:21] LABS: Vitamin B12 282 pg/mL (211-911)
== END 2018-08-14 17:00 | disposition skilled nursing facility (03) | DRG 720 ==
LOC: ED 17:26 → PCU 18:36
PROVIDERS: Family Medicine; Internal Medicine; Surgery; Admitting Provider Family Medicine; Emergency Provider Emergency Medicine; Family Provider Family Medicine; PCP Family Medicine; Referring Provider Family Medicine; Visit Provider Hospitalist
DX: A41.9 Sepsis, unspecified organism (principal); R65.21 Severe sepsis with septic shock; Z93.3 Colostomy status; Z66 Do not resuscitate; Z79.4 Long term (current) use of insulin; E78.5 Hyperlipidemia, unspecified; I10 Essential (primary) hypertension; N31.9 Neuromuscular dysfunction of bladder, unspecified; G82.20 Paraplegia, unspecified; M86.652 Other chronic osteomyelitis, left thigh; L89.154 Pressure ulcer of sacral region, stage 4; L89.323 Pressure ulcer of left buttock, stage 3; L89.314 Pressure ulcer of right buttock, stage 4; M48.00 Spinal stenosis, site unspecified; Z79.01 Long term (current) use of anticoagulants; D63.8 Anemia in other chronic diseases classified elsewhere; M10.9 Gout, unspecified; Z87.440 Personal history of urinary (tract) infections; Z86.14 Personal history of Methicillin resistant Staphylococcus aureus infection; E83.42 Hypomagnesemia; E86.0 Dehydration; G62.9 Polyneuropathy, unspecified; E11.40 Type 2 diabetes mellitus with diabetic neuropathy, unspecified; Z86.718 Personal history of other venous thrombosis and embolism
CPT/HCPCS: 36415; 71045; 72192; 76770; 80048; 80053; 81001; 82274; 82570; 82607; 82728; 82746; 82962; 83540; 83550; 83605; 83735; 84100; 84300; 84439; 84443; 85025; 85027; 85045; 85610; 85730; 86850; 86900; 86920; 86922; 87040; 87070; 87075; 87077; 87086; 87088; 87186; 87205; 87640; 93005; 97110; 97140; 97162; 97166; 97530; 97802; 99285; J2185; J7030; J7040; J7050; P9016; A4216; J2405

== ENCOUNTER 2018-08-23 14:57 | Outpatient (RCR) | payer MEDICAID, SELFPAY ==
[2018-08-11 19:42] VITALS: BMI 26.2
[2018-08-23 15:17] VITALS: BP 106/63; PULSE 112; RESP 18; TEMP 36.1; BMI 26.2
--- NOTE | 2018-08-23 16:28 | PCM.WC.PN ---
(1) Pressure sore of left ischium, stage 4 Status: Chronic Current Visit: Yes Code(s): L89.324 - Pressure ulcer of left buttock, stage 4 (2) Stage IV pressure ulcer of sacral region Status: Chronic Current Visit: Yes Code(s): L89.154 - Pressure ulcer of sacral region, stage 4 Comment: with infected necrosis (3) Right ischial pressure sore, stage 4 Status: Chronic Current Visit: Yes Code(s): L89.314 - Pressure ulcer of right buttock, stage 4 (4) Diabetes mellitus Status: Chronic Current Visit: Yes Code(s): E11.9 - Type 2 diabetes mellitus without complications (5) chronic osteomyelitis left ischial area Status: Chronic Current Visit: Yes Type of Wound Chief Complaint: Left ischial pressure ulcer, Stage IV. Right ischial pressure ulcer, stage IV. Sacral ulcer, Stage IV. History of Wound: Patient is a 68-year-old female who has a chronic pressure ulcers of right and left ischium and sacral ulcer. She has a history of spinal stenosis and DM. She was admitted on 06/16/18 for sepsis. On 06/17/18 she went the OR for excision infected necrotic sacral pressure sore, Stage IV, with partioal ostectomy for osteomyelitis, and excision left ischial pressure sore, Stage IV, with partical ostectomy for osteomyelitis adn excision right ischial pressure sore, Stage IV , with partical ostectomy for osteomyelitis by Dr. Myles. At that same time Dr. Garza performed right septic bursitis of elbow and right wrist abscess. Cultures from 06/17/18: Sacral wound cultures were positive for Proteus mirabilis, Streptococcus mitis/oralis, Vancomycin Resist. E. faecalis, MRSA, Enterococcus raffinosus, Acinetobacter baumannii. Sacral Bone cultures showed VRE, MRSA, Proteus mirabilis, Actinomyces odontolyticus, Enterococcus raffinosus. Right ischial tissue grew MRSA, Proteus mirabilis, VRE, Streptococcus constellatus con. Right Ischial Bone culture grew: MRSA, Streptococcus mitis/oralis, Entercoccus raffinosus. Left ischial tissue grew: Vacomycin resist. E. faecalis, Streptococcus pseudoporcinus, MRSA and Streptococcus group F. Left ischial bone culture: MRSA, Staphylococcus epidermidis, and Presumptive C albicans. Patient has a PICC and is on Vancomycin, Zosyn and PO Bactrim. She has a roach and a colostomy. She is now at [facility] for long term and rehab. Wound care: Dakritesh. She is taking Sigifredo. She states she has been eating well and denies any fever, chills or Nausea and Vomiting. Progress of Wound: Stable - Physical Exam Vital Signs Temp Pulse Resp BP 96.9 F L 112 H 18 106/63 08/23/18 15:17 08/23/18 15:17 08/23/18 15:17 08/23/18 15:17 General: Alert, Oriented x3, Cooperative HEENT: Atraumatic Oral: Moist Mucosa Lungs: Normal air movement Cardiovascular: Regular rate Extremities: Capillary Refill Less than 3 Seconds, Peripheral Pulses Normal Skin: Ulcer/ Wound - Left ischial ulcer, right ischial ulcer, sacral ulcer to the bone Wound Measurements and Assessment WC - Nurse 1 - General Ulcer Measurement Start: 08/23/18 15:16 Freq: Status: Active Protocol: Activity Type Activity Date Activity User E-Sign Co-Sign Detail Recorded Client Recorded Date Recorded By Document 08/23/18 15:17 AN [id number] 08/23/18 15:43 AN 08/23/18 15:17 Wound Center Nurse 1 [Ulcer Assessment] #14 R Buttocks -Current Size (cm) - Length 7.4 -Current Size (cm) - Width 5.5 -Current Size (cm) - Depth 2.4 -Total Square Cm 40.70 -Date of Last Picture (Recall this 08/23/18 field) -Classification - Thickness Full Thickness with Exposed Support Structure -Wound Margin Distinct, Outline Attached -Granulation Amt Large (67-100%) -Granulation Quality Red -Necrosis Amt Small (1-33%) -Necrotic Tissue Type Adherent Slough -Structure Exposed Bone -Texture (Amirah-wound Skin Appearance) Assessed -Moisture (Amirah-wound Skin Appearance Assessed ) Maceration -Color (Amirah-wound Skin Appearance) Assessed -Temperature (Amirah-wound Skin No Abnormality Appearance) (Pt Warm) -Tenderness on Palpation (Amirah-wound No Skin Appearance) -Ulcer Cleansing Rinsed/ Irrigated with Saline -Foul Odor after Cleansing No -Anesthetic Used 4% Lidocaine Solution #13 Sacral -Current Size (cm) - Length 10 -Current Size (cm) - Width 8 -Current Size (cm) - Depth 3.2 -Total Square Cm 80 -Date of Last Picture (Recall this 08/23/18 field) -Photo Taken Yes -Classification - Thickness Full Thickness with Exposed Support Structure -Exudate Amt Medium -Exudate Type Serosanguineous -Wound Margin Distinct, Outline Attached -Granulation Amt Large (67-100%) -Granulation Quality Red -Slough/Fibrin Yes -Necrosis Amt Small (1-33%) -Necrotic Tissue Type Adherent Slough -Structure Exposed Tendon Bone -Texture (Amirah-wound Skin Appearance) Assessed -Moisture (Amirah-wound Skin Appearance Assessed ) Maceration -Color (Amirah-wound Skin Appearance) Assessed -Temperature (Amirah-wound Skin No Abnormality Appearance) (Pt Warm) -Tenderness on Palpation (Amirah-wound No Skin Appearance) -Ulcer Cleansing Rinsed/ Irrigated with Saline -Foul Odor after Cleansing No -Anesthetic Used 4% Lidocaine Solution #12 L Buttocks -Current Size (cm) - Length 6.5 -Current Size (cm) - Width 5.4 -Current Size (cm) - Depth 3.2 -Total Square Cm 35.10 -Classification - Thickness Full Thickness with Exposed Support Structure -Exudate Amt Medium -Exudate Type Serosanguineous -Wound Margin Distinct, Outline Attached -Granulation Amt Large (67-100%) -Granulation Quality Red -Slough/Fibrin Yes -Necrosis Amt None Present (0 %) -Necrotic Tissue Type Adherent Slough -Texture (Amirah-wound Skin Appearance) Assessed -Moisture (Amirah-wound Skin Appearance Assessed ) Maceration -Color (Amirah-wound Skin Appearance) Assessed -Temperature (Amirah-wound Skin No Abnormality Appearance) (Pt Warm) -Tenderness on Palpation (Amirah-wound No Skin Appearance) -Ulcer Cleansing Rinsed/ Irrigated with Saline -Foul Odor after Cleansing No -Anesthetic Used 4% Lidocaine Solution WC - Nurse 2 - General Ulcer CM Notes Start: 08/23/18 15:16 Freq: Status: Active Protocol: Activity Type Activity Date Activity User E-Sign Co-Sign Detail Recorded Client Recorded Date Recorded By Document 08/23/18 16:03 TIMA [id number] 08/23/18 16:09 TIMA 08/23/18 16:03 Wound Center Nurse 2 [Procedure/Treatment] #14 R Buttocks -Time 16:05 -Correct Patient Yes -Correct Side, Site, Position Yes -Correct Procedure Yes -Procedure Performed Yes -Type of Procedure Debridement -Clinical Debridement Muscle Bone -Post Debridement Size (cm) - Length 8 -Post Debridement Size (cm) - Width 6 -Post Debridement Size (cm) - Depth 3.0 -Total Square Cm 48 -Wound/Ulcer Outcome Not Healed -Ulcer Cleansing Rinsed/ Irrigated with Saline -Foul Odor after Cleansing No -Bioengineered Tissue No -Bleeding Controlled with Pressure -Offloading No -Treatment Response Procedure Tolerated Well #13 Sacral -Time 16:06 -Correct Patient Yes -Correct Side, Site, Position Yes -Correct Procedure Yes -Procedure Performed Yes -Type of Procedure Debridement -Clinical Debridement Bone -Post Debridement Size (cm) - Length 10 -Post Debridement Size (cm) - Width 8.2 -Post Debridement Size (cm) - Depth 2.0 -Total Square Cm 82.0 -Wound/Ulcer Outcome Not Healed -Ulcer Cleansing Rinsed/ Irrigated with Saline -Foul Odor after Cleansing No -Bioengineered Tissue No -Bleeding Controlled with Pressure -Offloading No -Treatment Response Procedure Tolerated Well #12 L Buttocks -Time 16:06 -Correct Patient Yes -Correct Side, Site, Position Yes -Correct Procedure Yes -Procedure Performed Yes -Type of Procedure Debridement -Clinical Debridement Bone -Post Debridement Size (cm) - Length 8.5 -Post Debridement Size (cm) - Width 3 -Post Debridement Size (cm) - Depth 3 -Total Square Cm 25.5 -Wound/Ulcer Outcome Not Healed -Ulcer Cleansing Rinsed/ Irrigated with Saline -Foul Odor after Cleansing No -Bioengineered Tissue No -Bleeding Controlled with Pressure -Offloading No -Treatment Response Procedure Tolerated Well [See Physician Procedure note for Specifics] Pain Scale: 0-10 Numeric [Pain] -Is Patient Pain Free? Yes Musculoskeletal: No Tenderness to Palpation of Joints or Extremities Neurological: Neuro grossly intact Psych/Mental Status: Normal Affect, Appropriate Debridement Note Post-Debridement Measurements/Treatment WC - Nurse 2 - General Ulcer CM Notes Start: 08/23/18 15:16 Freq: Status: Active Protocol: Activity Type Activity Date Activity User E-Sign Co-Sign Detail Recorded Client Recorded Date Recorded By Document 08/23/18 16:03 TIMA [id number] 08/23/18 16:09 TIMA 08/23/18 16:03 Wound Center Nurse 2 #14 R Buttocks -Time 16:05 -Correct Patient Yes -Correct Side, Site, Position Yes -Correct Procedure Yes -Procedure Performed Yes -Type of Procedure Debridement -Clinical Debridement Muscle Bone -Post Debridement Size (cm) - Length 8 -Post Debridement Size (cm) - Width 6 -Post Debridement Size (cm) - Depth 3.0 -Total Square Cm 48 -Wound/Ulcer Outcome Not Healed -Ulcer Cleansing Rinsed/ Irrigated with Saline -Foul Odor after Cleansing No -Bioengineered Tissue No -Bleeding Controlled with Pressure -Offloading No -Treatment Response Procedure Tolerated Well #13 Sacral -Time 16:06 -Correct Patient Yes -Correct Side, Site, Position Yes -Correct Procedure Yes -Procedure Performed Yes -Type of Procedure Debridement -Clinical Debridement Bone -Post Debridement Size (cm) - Length 10 -Post Debridement Size (cm) - Width 8.2 -Post Debridement Size (cm) - Depth 2.0 -Total Square Cm 82.0 -Wound/Ulcer Outcome Not Healed -Ulcer Cleansing Rinsed/ Irrigated with Saline -Foul Odor after Cleansing No -Bioengineered Tissue No -Bleeding Controlled with Pressure -Offloading No -Treatment Response Procedure Tolerated Well #12 L Buttocks -Time 16:06 -Correct Patient Yes -Correct Side, Site, Position Yes -Correct Procedure Yes -Procedure Performed Yes -Type of Procedure Debridement -Clinical Debridement Bone -Post Debridement Size (cm) - Length 8.5 -Post Debridement Size (cm) - Width 3 -Post Debridement Size (cm) - Depth 3 -Total Square Cm 25.5 -Wound/Ulcer Outcome Not Healed -Ulcer Cleansing Rinsed/ Irrigated with Saline -Foul Odor after Cleansing No -Bioengineered Tissue No -Bleeding Controlled with Pressure -Offloading No -Treatment Response Procedure Tolerated Well Pain Scale: 0-10 Numeric Is Patient Pain Free? Yes Wound debrided: Right ischial ulcer Laterality: Right Type of Debridement: Excisional debridement Anesthesia Used: 4% Lidocaine Solution Depth: Down to and including healthy tissue, to muscle Percentage of wound debrided: 100 Instrument Used: 7mm curette Tissue Removed: Subcutaneous tissue and slough Severity: Fat Layer Exposed Amount of bleeding with debridement: Mild Bleeding Controlled with: Pressure Patient tolerated procedure well - Additional Wound Wound debrided: Left ischial ulcer Laterality: Left Type of Debridement: Excisional debridement Anesthesia Used: 4% Lidocaine Solution Depth: Down to and including healthy tissue, in the subcutaneous layer, to muscle Percentage of wound debrided: 100 Instrument Used: 7mm curette Tissue Removed: Subcutaneous tissue and slough Severity: Fat Layer Exposed Amount of bleeding with debridement: Mild Bleeding Controlled with: Pressure Patient tolerated procedure: Patient tolerated procedure well - Additional Wound Wound debrided: sacral ulcer Laterality: Not Applicable Type of Debridement: Excisional debridement Anesthesia Used: 4% Lidocaine Solution Depth: Down to and including healthy tissue, in the subcutaneous layer, to muscle Percentage of wound debrided: 100 Instrument Used: 7mm curette Tissue Removed: Subcutaneous tissue and slough Severity: Fat Layer Exposed Amount of bleeding with debridement: Mild Bleeding Controlled with: Pressure Patient tolerated procedure: Patient tolerated procedure well Assessment/Plan Active Problems (Last Reviewed 07/26/18 @ 15:47 by Alyssa Azevedo PA-C) 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 Right ischial pressure sore, stage 4 (Chronic) Diabetes mellitus (Chronic) chronic osteomyelitis left ischial area (Chronic) Pressure sore of left ischium, stage 4 (Chronic) Assessment: 1. Stage IV pressure ulcer of sacral region. 2. Right ischial pressure sore, stage 4. 3. Pressure sore of left ischium, stage 4. 4. Chronic osteomyelitis of left pelvic region. 5. Diabetes mellitus Plan: Patient was evaluated at the wound center today. A subcutaneous debridement was performed today. The patient toerated the procedure well. The patients wound care will consist of Dakins to bilateral ischial ulcers and to sacral ulcer. She has been drinking Sigifredo daily. Follow up in 4 weeks. She is currently in [facility]. Follow up in two weeks. Code Visit [id number]: [id number] Jeanna bone 20 sq cm/< Add On Codes: 85078 Jeanna bone add-on - x5
== END 2018-09-17 23:59 ==
LOC: WC 14:57
PROVIDERS: Family Provider Family Medicine; PCP Family Medicine; Visit Provider Nurse Practitioner Family
DX: E11.622 Type 2 diabetes mellitus with other skin ulcer (principal); E11.69 Type 2 diabetes mellitus with other specified complication; M86.652 Other chronic osteomyelitis, left thigh; L97.224 Non-pressure chronic ulcer of left calf with necrosis of bone; L97.214 Non-pressure chronic ulcer of right calf with necrosis of bone; Z93.3 Colostomy status; Z86.14 Personal history of Methicillin resistant Staphylococcus aureus infection; L89.154 Pressure ulcer of sacral region, stage 4
CPT/HCPCS: 11043; 11044; 11046; 11047

== ENCOUNTER 2018-09-24 12:02 | Outpatient (RCR) | payer MEDICAID, SELFPAY ==
[2018-09-18 01:17] VITALS: BP 106/63; PULSE 112; RESP 18; TEMP 36.1
[2018-09-24 13:00] VITALS: BP 111/63; PULSE 82; RESP 16; TEMP 36.6; BMI 26.2
--- NOTE | 2018-09-24 17:48 | HP.PCM_ITS ---
(1) Stage IV pressure ulcer of sacral region Status: Chronic Current Visit: Yes Code(s): L89.154 - Pressure ulcer of sacral region, stage 4 (2) Right ischial pressure sore, stage 4 Status: Chronic Current Visit: Yes Code(s): L89.314 - Pressure ulcer of right buttock, stage 4 (3) Diabetes mellitus type 2 in nonobese Status: Chronic Current Visit: Yes Code(s): E11.9 - Type 2 diabetes mellitus without complications (4) Pressure sore of left ischium, stage 4 Status: Chronic Current Visit: Yes Code(s): L89.324 - Pressure ulcer of left buttock, stage 4 (5) Physical deconditioning Status: Chronic Current Visit: Yes Code(s): R53.81 - Other malaise (6) Spinal stenosis Status: Chronic Current Visit: Yes Qualifiers: Spinal region: lumbosacral Code(s): M48.00 - Spinal stenosis, site unspecified History of Present Illness Date of Service: 09/24/18 Chief Complaint: Left ischial pressure ulcer, Stage IV. Right ischial pressure ulcer, stage IV. Sacral ulcer, Stage IV. History of Wound: Patient is a 68-year-old female who has a chronic pressure ulcers of right and left ischium and sacral ulcer. She has a history of spinal stenosis and DM. She was admitted on 06/16/18 for sepsis. On 06/17/18 she went the OR for excision infected necrotic sacral pressure sore, Stage IV, with partial ostectomy for osteomyelitis, and excision left ischial pressure sore, Stage IV, with partical ostectomy for osteomyelitis and excision right ischial pressure sore, Stage IV , with partical ostectomy for osteomyelitis by Dr. Myles. At that same time, Dr. Garza performed right septic bursitis of elbow and right wrist abscess. Cultures from 06/17/18: Sacral wound cultures were positive for Proteus mirabilis, Streptococcus mitis/oralis, Vancomycin Resist. E. faecalis, MRSA, Enterococcus raffinosus, Acinetobacter baumannii. Sacral Bone cultures showed VRE, MRSA, Proteus mirabilis, Actinomyces odontolyticus, Enterococcus raffinosus. Right ischial tissue grew MRSA, Proteus mirabilis, VRE, Streptococcus constellatus con. Right Ischial Bone culture grew: MRSA, Streptococcus mitis/oralis, Entercoccus raffinosus. Left ischial tissue grew: Vacomycin resist. E. faecalis, Streptococcus pseudoporcinus, MRSA and Streptococcus group F. Left ischial bone culture: MRSA, Staphylococcus epidermidis, and Presumptive C albicans. Patient completed antibiotic treatment with Vancomycin, Zosyn and PO Bactrim. She is currently on Amoxicillin 500 mg TID since admission on 08/14/18. She has a roach and a colostomy. She is now at [facility] [place] [facility]. Wound care: Dakins, gauze packed in the ulcers. She is taking Sigifredo. She states she has been eating well and denies any fever, chills,n ausea or vomiting. Denies increased drainage or pain of ulcers. Past Medical History Past Medical History: Chronic Problems (Last Reviewed 07/26/18 @ 15:47 by Alyssa Azevedo PA-C) Chronic osteomyelitis of left pelvic region (Chronic) Stage IV pressure ulcer of sacral region (Chronic) Right ischial pressure sore, stage 4 (Chronic) Open wound of left thigh (Chronic) traumatic skin tear posterior thigh Incompetent urethral closure mechanism (Chronic) Neurogenic bladder (Chronic) Stage II pressure ulcer (Chronic) Chronic suprapubic catheter (Chronic) Diabetes mellitus type 2 in nonobese (Chronic) Hypertension (Chronic) Gout (Chronic) with arthropathy Pressure ulcer of left buttock, stage 3 (Chronic) left lower buttock/upper thigh area Diabetes mellitus (Chronic) Pressure ulcer of right buttock, stage 3 (Chronic) Diabetic neuropathy, type II diabetes mellitus (Chronic) Malnutrition (Chronic) Back pain (Chronic) Arthritis (Chronic) 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 significance to followup Anemia of chronic disease (Chronic) Physical deconditioning (Chronic) Dupuytren's contracture of right hand (Chronic) Spinal stenosis (Chronic) Hyperlipidemia (Chronic) RP (rectal prolapse) (Chronic) Surgical History: - - Surgery for rectal prolapse with anterior resection and rectopexy at [facility] in 2008 and back surgery 1979. Colostomy was November 2012. Excision left ischial pressure sore with partial ostectomy for osteomyelitis and excision right ischial pressure sore and excision left lateral ankle pressure sore with partial ostectomy for osteomyelitis in 08/01. Allergies/Adverse Reactions: Allergies No Known Allergies Allergy (Verified 08/16/18 13:05) Home Medications: Ambulatory Orders Medication Instructions Recorded Allopurinol [Zyloprim] 200 mg PO DAILY 07/05/14 Multivitamins,Therapeutic 1 tab PO DAILY 07/05/14 [Multivitamin] Timolol Maleate [Timoptic-XE 0.5%] 1 drp EACH EYE DAILY 07/05/14 Ascorbic Acid [Vitamin C] 500 mg PO DAILY@0800 09/09/17 metFORMIN HCl [Glucophage] 1,000 mg PO BID 02/26/18 Gabapentin [Neurontin] 200 mg PO TID 06/16/18 Lactobacillus Acidophilus 1 cap PO DAILY 06/16/18 [Acidophilus] Linagliptin [Tradjenta] 5 mg PO DAILY 06/16/18 Polyethylene Glycol 3350 [Miralax] 17 gm PO DAILY 06/16/18 Insulin Lispro [Humalog KwikPen] See Protocol SC ACHS insuln.pen 06/22/18 Citric AC/Gluconolact/Mag Carb 30 ml IR DAILY 07/20/18 [Renacidin Irrigation Solution] Furosemide [Lasix] 20 mg PO DAILY 07/20/18 Latanoprost 0.005% [Xalatan 1 drop EACH EYE QHS 07/20/18 Opthalmic] Mirabegron [Myrbetriq] 50 mg PO DAILY 07/20/18 Apixaban [Eliquis] 5 mg PO BID 08/11/18 Losartan Potassium [Cozaar] 25 mg PO DAILY 08/11/18 Metoprolol Tartrate [Lopressor 25 mg PO BID 08/11/18 (beta honey)] Multivit,Stress Formula/Zinc 1 tab PO BID 08/11/18 [Stress Formula with Zinc Tab] Amoxicillin [Amoxil] 500 mg PO Q8 capsule 08/14/18 Meclizine HCl [Antivert] 25 mg PO 4X/DAY PRN PRN tablet 08/14/18 Oxycodone HCl/Acetaminophen 1 tab PO Q4H PRN PRN #10 tab 08/14/18 [Percocet 5-325 mg Tablet] Sodium Hypochlorite [Dakins 1 applic TOPICAL BID bottle 08/14/18 Solution 0.25% (1/2 Strength)] - Family History Maternal Diabetes, Hypertension Paternal Diabetes, Hypertension Lives: Group Home Smoking Status: Never smoker Tobacco Use: Non-smoker Alcohol: None Drugs: None Review of Systems Constitutional: Denies: Chills, Fever, Weight Change Eyes: Denies: Pain, Vision Change HEENT: Denies: Difficulty Hearing, Difficulty Swallowing, Sinus Congestion Cardiovascular: Denies: Chest Pain, Palpitations Respiratory: Denies: Cough, Shortness of Breath Gastrointestinal: Denies: Diarrhea, Nausea, Vomiting Genitourinary: Denies: Dysuria, Hematuria Musculoskeletal: Reports: Back Pain Skin: Reports: Wounds Neurological: Reports: Numbness, Tingling Psychiatric: Reports: Depression Hematologic/ Lymphatic: Reports: Easy Bruising, Easy Bleeding - Physical Exam Vital Signs Temp Pulse Resp BP 97.8 F 82 16 111/63 09/24/18 13:00 09/24/18 13:00 09/24/18 13:00 09/24/18 13:00 General: Alert, Oriented x3, Cooperative, No apparent distress HEENT: Atraumatic, Normocephalic Oral: Moist Mucosa Neck: Supple Lungs: Clear to auscultation Cardiovascular: Regular rate, Regular Rhythm Abdomen: Soft, Non Tender, Obese Extremities: Edema Skin: Ulcer/ Wound Wound Measurements and Assessment WC - Nurse 1 - General Ulcer Measurement Start: 09/24/18 13:00 Freq: Status: Active Protocol: Activity Type Activity Date Activity User E-Sign Co-Sign Detail Recorded Client Recorded Date Recorded By Document 09/24/18 13:00 [id number] 09/24/18 13:14 [facility] 09/24/18 13:00 Wound Center Nurse 1 [Ulcer Assessment] #14 R Buttocks -Combined with other wound No -Current Size (cm) - Length 4.1 -Current Size (cm) - Width 4 -Current Size (cm) - Depth 3.7 -Total Square Cm 16.4 -Photo Taken No -Epithelialization None Present -Tunneling No -Undermining/Tunneling No -Circular Undermining No -Exudate Amt Large -Exudate Type Serosanguineous -Wound Margin Distinct, Outline Attached -Granulation Amt Large (67-100%) -Granulation Quality Red -Slough/Fibrin Yes -Necrosis Amt Small (1-33%) -Necrotic Tissue Type Adherent Slough -Texture (Amirah-wound Skin Appearance) Assessed Scarring -Moisture (Amirah-wound Skin Appearance Assessed ) -Color (Amirah-wound Skin Appearance) Assessed -Temperature (Amirah-wound Skin No Abnormality Appearance) (Pt Warm) -Tenderness on Palpation (Amirah-wound No Skin Appearance) -Ulcer Cleansing Wound Cleanser -Foul Odor after Cleansing No -Anesthetic Used 4% Lidocaine Solution #13 Sacral -Combined with other wound No -Current Size (cm) - Length 10 -Current Size (cm) - Width 7.5 -Current Size (cm) - Depth 1.5 -Total Square Cm 75.0 -Photo Taken No -Epithelialization None Present -Tunneling No -Undermining/Tunneling Yes -Undermining/Tunneling Starts (O' 1 clock) -Undermining/Tunneling Ends (O'clock) 3 -Maximum Distance (cm) 2.2 -Circular Undermining No -Exudate Amt Large -Exudate Type Serosanguineous -Wound Margin Distinct, Outline Attached -Granulation Amt Large (67-100%) -Granulation Quality Red -Slough/Fibrin Yes -Necrosis Amt Small (1-33%) -Necrotic Tissue Type Adherent Slough -Texture (Amirah-wound Skin Appearance) Assessed Scarring -Moisture (Amirah-wound Skin Appearance Assessed ) -Color (Amirah-wound Skin Appearance) Assessed -Temperature (Amirah-wound Skin No Abnormality Appearance) (Pt Warm) -Tenderness on Palpation (Amirah-wound No Skin Appearance) -Ulcer Cleansing Rinsed/ Irrigated with Saline -Foul Odor after Cleansing No -Anesthetic Used 4% Lidocaine Solution #12 L Buttocks -Combined with other wound No -Current Size (cm) - Length 6 -Current Size (cm) - Width 2 -Current Size (cm) - Depth 1.7 -Total Square Cm 12 -Photo Taken No -Epithelialization None Present -Tunneling No -Undermining/Tunneling No -Circular Undermining No -Exudate Amt Medium -Exudate Type Serosanguineous -Wound Margin Distinct, Outline Attached -Granulation Amt Large (67-100%) -Granulation Quality Red -Slough/Fibrin Yes -Necrosis Amt Small (1-33%) -Necrotic Tissue Type Adherent Slough -Texture (Amirah-wound Skin Appearance) Assessed Scarring -Moisture (Amirah-wound Skin Appearance Assessed ) -Color (Amirah-wound Skin Appearance) Assessed -Temperature (Amirah-wound Skin No Abnormality Appearance) (Pt Warm) -Tenderness on Palpation (Amirah-wound No Skin Appearance) -Ulcer Cleansing Wound Cleanser -Foul Odor after Cleansing No -Anesthetic Used 4% Lidocaine Solution WC - Nurse 2 - General Ulcer CM Notes Start: 09/24/18 13:00 Freq: Status: Active Protocol: Activity Type Activity Date Activity User E-Sign Co-Sign Detail Recorded Client Recorded Date Recorded By Document 09/24/18 13:54 DV [id number] 09/24/18 14:14 DV 09/24/18 13:54 Wound Center Nurse 2 [Procedure/Treatment] #14 R Buttocks -Time 13:56 -Correct Patient Yes -Correct Side, Site, Position Yes -Correct Procedure Yes -Procedure Performed Yes -Type of Procedure Debridement -Clinical Debridement Muscle -Post Debridement Size (cm) - Length 6.0 -Post Debridement Size (cm) - Width 5.5 -Post Debridement Size (cm) - Depth 3.5 -Total Square Cm 33.00 -Wound/Ulcer Outcome Not Healed -Ulcer Cleansing Rinsed/ Irrigated with Saline -Foul Odor after Cleansing No -Bioengineered Tissue No -Bleeding Controlled with Pressure -Offloading No -Treatment Response Procedure Tolerated Well #13 Sacral -Time 13:56 -Correct Patient Yes -Correct Side, Site, Position Yes -Correct Procedure Yes -Procedure Performed Yes -Type of Procedure Debridement -Clinical Debridement Muscle -Post Debridement Size (cm) - Length 10.0 -Post Debridement Size (cm) - Width 8.0 -Post Debridement Size (cm) - Depth 1.7 -Total Square Cm 80.00 -Wound/Ulcer Outcome Not Healed -Ulcer Cleansing Rinsed/ Irrigated with Saline -Foul Odor after Cleansing No -Bioengineered Tissue No -Bleeding Controlled with Pressure -Offloading No -Treatment Response Procedure Tolerated Well #12 L Buttocks -Time 13:57 -Correct Patient Yes -Correct Side, Site, Position Yes -Correct Procedure Yes -Procedure Performed Yes -Type of Procedure Debridement -Clinical Debridement Muscle -Post Debridement Size (cm) - Length 5.0 -Post Debridement Size (cm) - Width 3.7 -Post Debridement Size (cm) - Depth 1.7 -Total Square Cm 18.50 -Wound/Ulcer Outcome Not Healed -Ulcer Cleansing Rinsed/ Irrigated with Saline -Foul Odor after Cleansing No -Bioengineered Tissue No -Bleeding Controlled with Pressure -Offloading No -Treatment Response Procedure Tolerated Well [See Physician Procedure note for Specifics] Pain Scale: 0-10 Numeric [Pain] -Is Patient Pain Free? Yes Psych/Mental Status: Normal Affect, Appropriate Debridement Note Post-Debridement Measurements/Treatment WC - Nurse 2 - General Ulcer CM Notes Start: 09/24/18 13:00 Freq: Status: Active Protocol: Activity Type Activity Date Activity User E-Sign Co-Sign Detail Recorded Client Recorded Date Recorded By Document 09/24/18 13:54 DV [id number] 09/24/18 14:14 DV 09/24/18 13:54 Wound Center Nurse 2 #14 R Buttocks -Time 13:56 -Correct Patient Yes -Correct Side, Site, Position Yes -Correct Procedure Yes -Procedure Performed Yes -Type of Procedure Debridement -Clinical Debridement Muscle -Post Debridement Size (cm) - Length 6.0 -Post Debridement Size (cm) - Width 5.5 -Post Debridement Size (cm) - Depth 3.5 -Total Square Cm 33.00 -Wound/Ulcer Outcome Not Healed -Ulcer Cleansing Rinsed/ Irrigated with Saline -Foul Odor after Cleansing No -Bioengineered Tissue No -Bleeding Controlled with Pressure -Offloading No -Treatment Response Procedure Tolerated Well #13 Sacral -Time 13:56 -Correct Patient Yes -Correct Side, Site, Position Yes -Correct Procedure Yes -Procedure Performed Yes -Type of Procedure Debridement -Clinical Debridement Muscle -Post Debridement Size (cm) - Length 10.0 -Post Debridement Size (cm) - Width 8.0 -Post Debridement Size (cm) - Depth 1.7 -Total Square Cm 80.00 -Wound/Ulcer Outcome Not Healed -Ulcer Cleansing Rinsed/ Irrigated with Saline -Foul Odor after Cleansing No -Bioengineered Tissue No -Bleeding Controlled with Pressure -Offloading No -Treatment Response Procedure Tolerated Well #12 L Buttocks -Time 13:57 -Correct Patient Yes -Correct Side, Site, Position Yes -Correct Procedure Yes -Procedure Performed Yes -Type of Procedure Debridement -Clinical Debridement Muscle -Post Debridement Size (cm) - Length 5.0 -Post Debridement Size (cm) - Width 3.7 -Post Debridement Size (cm) - Depth 1.7 -Total Square Cm 18.50 -Wound/Ulcer Outcome Not Healed -Ulcer Cleansing Rinsed/ Irrigated with Saline -Foul Odor after Cleansing No -Bioengineered Tissue No -Bleeding Controlled with Pressure -Offloading No -Treatment Response Procedure Tolerated Well Pain Scale: 0-10 Numeric Is Patient Pain Free? Yes Wound debrided: right buttocks Laterality: Right Wound Grade/Stage: Stage IV Type of Debridement: Excisional debridement Anesthesia Used: 4% Lidocaine Solution Depth: Down to and including healthy tissue, in the subcutaneous layer, to muscle Percentage of wound debrided: 100 Instrument Used: 5mm curette Tissue Removed: yellow slough, devitalized tissue Severity: Necrosis of Muscle Amount of bleeding with debridement: Mild Bleeding Controlled with: Compression and gauze Patient tolerated procedure well - Additional Wound Wound debrided: Sacral ulcer Laterality: Not Applicable Wound Grade/Stage: Stage IV Type of Debridement: Excisional debridement Anesthesia Used: 4% Lidocaine Solution Depth: Down to and including healthy tissue, in the subcutaneous layer, to muscle Percentage of wound debrided: 100 Instrument Used: 5mm curette Tissue Removed: yellow slough, devitalized tissue Severity: Necrosis of Muscle Amount of bleeding with debridement: Mild Bleeding Controlled with: Compression and gauze Patient tolerated procedure: Patient tolerated procedure well - Additional Wound Wound debrided: left buttocks Laterality: Left Wound Grade/Stage: Stage 4 Type of Debridement: Excisional debridement Anesthesia Used: 4% Lidocaine Solution Depth: Down to and including healthy tissue, in the subcutaneous layer, to muscle Percentage of wound debrided: 100 Instrument Used: 5mm curette Tissue Removed: yellow slough, devitalized tissue Severity: Necrosis of Muscle Amount of bleeding with debridement: Mild Bleeding Controlled with: Compression and gauze Patient tolerated procedure: Patient tolerated procedure well Assessment/Plan Active Problems (Last Reviewed 07/26/18 @ 15:47 by Alyssa Azevedo PA-C) Stage IV pressure ulcer of sacral region (Chronic) Right ischial pressure sore, stage 4 (Chronic) Diabetes mellitus type 2 in nonobese (Chronic) Pressure sore of left ischium, stage 4 (Chronic) Physical deconditioning (Chronic) Spinal stenosis (Chronic) Assessment: 1. Stage IV pressure ulcer of sacral region. 2. Right ischial pressure sore, stage 4. 3. Pressure sore of left ischium, stage 4. 4. Chronic osteomyelitis of left pelvic region. 5. Diabetes mellitus Plan: Patient was evaluated at the wound center today. A subcutaneous debridement was performed today. The patient tolerated the procedure well. The patients wound care will consist of Dakins to bilateral ischial ulcers and to sacral ulcer. She has been drinking Sigifredo daily. She is currently in [facility]. She is on a palliative treatment program as she does not desire to do any aggressive treatments and is not a candidate at this time for surgical closure of her wounds. She will follow up in 4 weeks.
== END 2018-10-17 23:59 ==
LOC: WC 12:02
PROVIDERS: Family Provider Family Medicine; PCP Family Medicine; Visit Provider Family Medicine
DX: E11.622 Type 2 diabetes mellitus with other skin ulcer (principal); L89.154 Pressure ulcer of sacral region, stage 4; L89.224 Pressure ulcer of left hip, stage 4; L89.214 Pressure ulcer of right hip, stage 4; M48.00 Spinal stenosis, site unspecified; Z86.14 Personal history of Methicillin resistant Staphylococcus aureus infection; Z93.3 Colostomy status; I10 Essential (primary) hypertension; E11.40 Type 2 diabetes mellitus with diabetic neuropathy, unspecified; E78.5 Hyperlipidemia, unspecified; D63.8 Anemia in other chronic diseases classified elsewhere; Z79.899 Other long term (current) drug therapy; Z79.4 Long term (current) use of insulin; Z79.01 Long term (current) use of anticoagulants; E11.69 Type 2 diabetes mellitus with other specified complication; M86.652 Other chronic osteomyelitis, left thigh
CPT/HCPCS: 11043; 11046

== ENCOUNTER → 2018-11-05 10:31 | Outpatient (CLI) | payer MEDICAID, SELFPAY ==
[2018-10-29 15:52] VITALS: BMI 26.2
[2018-11-05] VITALS (7 sets, daily range): BP systolic 98–120; BP diastolic 47–66; PULSE 86–108; RESP 16–18; TEMP 36.2–36.5; O2SAT 96–100; BMI 26.2
--- NOTE | 2018-11-05 16:05 | NURSING ---
nurse to nurse report called to [facility]. Pt being transported back to [facility] via ambulance. Stable condition A&Ox3
== END ==
PROVIDERS: Family Provider Family Medicine; PCP Family Medicine; Referring Provider Nurse Practitioner Adult Health; Visit Provider Nurse Practitioner Adult Health
DX: S91.301A Unspecified open wound, right foot, initial encounter (principal); D64.9 Anemia, unspecified
CPT/HCPCS: 96365; 36415; 36430; 86850; 86900; 86920; 86922; J7040; P9016; A4216

== ENCOUNTER 2018-11-12 14:00 | Outpatient (RCR) | payer MEDICAID, SELFPAY ==
[2018-10-18 00:52] VITALS: BP 111/63; PULSE 82; RESP 16; TEMP 36.6
[2018-10-22 13:03] VITALS: BP 119/73; PULSE 103; RESP 18; TEMP 36.8; BMI 26.2
--- NOTE | 2018-10-22 17:39 | PN.PCM_ITS ---
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 Status: Chronic Current Visit: Yes Qualifiers: Diabetic foot ulcer location: other Diabetes mellitus type: type 2 Qualified Code(s): E11.621 - Type 2 diabetes mellitus with foot ulcer; L97.513 - Non-pressure chronic ulcer of other part of right foot with necrosis of muscle Code(s): E11.621 - Type 2 diabetes mellitus with foot ulcer; L97.513 - Non-pr essure chronic ulcer of other part of right foot with necrosis of muscle Comment: lateral aspect at 5th metatarsal (2) Stage IV pressure ulcer of sacral region Status: Chronic Current Visit: Yes Code(s): L89.154 - Pressure ulcer of sacral region, stage 4 (3) Right ischial pressure sore, stage 4 Status: Chronic Current Visit: Yes Code(s): L89.314 - Pressure ulcer of right buttock, stage 4 (4) Diabetic neuropathy, type II diabetes mellitus Status: Chronic Current Visit: Yes Qualifiers: Diabetes mellitus ferry terminal agent insulin use: unspecified ferry terminal agent insulin use status Qualified Code(s): E11.40 - Type 2 diabetes mellitus with diabetic neuropathy, unspecified Code(s): E11.40 - Type 2 diabetes mellitus with diabetic neuropathy, unspecified (5) Pressure sore of left ischium, stage 4 Status: Chronic Current Visit: Yes Code(s): L89.324 - Pressure ulcer of left buttock, stage 4 (6) Spinal stenosis Status: Chronic Current Visit: Yes Qualifiers: Spinal region: lumbosacral Code(s): M48.00 - Spinal stenosis, site unspecified Type of Wound Date of Service: 10/22/18 Chief Complaint: Left ischial pressure ulcer, Stage IV. Right ischial pressure ulcer, stage IV. Sacral ulcer, Stage IV. History of Wound: Patient is a 68-year-old female who has a chronic pressure ulcers of right and left ischium and sacral ulcer. She has a history of spinal stenosis and DM. She was admitted on 06/16/18 for sepsis. On 06/17/18 she went the OR for excision infected necrotic sacral pressure sore, Stage IV, with partial ostectomy for osteomyelitis, and excision left ischial pressure sore, Stage IV, with partical ostectomy for osteomyelitis and excision right ischial pressure sore, Stage IV , with partical ostectomy for osteomyelitis by Dr. Myles. At that same time, Dr. Garza performed right septic bursitis of elbow and right wrist abscess. Cultures from 06/17/18: Sacral wound cultures were positive for Proteus mirabilis, Streptococcus mitis/oralis, Vancomycin Resist. E. faecalis, MRSA, Enterococcus raffinosus, Acinetobacter baumannii. Sacral Bone cultures showed VRE, MRSA, Proteus mirabilis, Actinomyces odontolyticus, Enterococcus raffinosus. Right ischial tissue grew MRSA, Proteus mirabilis, VRE, Streptococcus constellatus con. Right Ischial Bone culture grew: MRSA, Streptococcus mitis/oralis, Entercoccus raffinosus. Left ischial tissue grew: Vacomycin resist. E. faecalis, Streptococcus pseudoporcinus, MRSA and Streptococcus group F. Left ischial bone culture: MRSA, Staphylococcus epidermidis, and Presumptive C albicans. Patient completed antibiotic treatment with Vancomycin, Zosyn and PO Bactrim. She was on Amoxicillin 500 mg TID since admission on 08/14/18. She has a roach and a colostomy. She is now at [facility], [place] for mcc and rehab. Wound care: Dakins, gauze packed in the ulcers. She is taking Sigifredo. She states she has been eating well and denies any fever, chills, nausea or vomiting. Denies increased drainage or pain of ulcers. In September 2018, she developed an area to her right lateral 5th metatarsal that was callused and then had eschar and was being treated at the SNF that she is at and on October 22, 2018, she was advised to make us aware of the ulcer because it had gotten worse. The eschar fell off and it was draining some and tendon was exposed. Progress of Wound: Althea is here today to follow up on chronic pressure ulcers of her buttocks and sacrum and additionally c/o an ulcer of the right lateral foot today that the wound nurse at her SNF has been treating with what looks like an alginate dressing. She does not have any feeling in her foot and did not know that it was there. She wears foam booties at the longterm so there should not be pressure to the area. She denies and fever or chills. - Physical Exam Vital Signs Temp Pulse Resp BP 98.2 F 103 H 18 119/73 10/22/18 13:03 10/22/18 13:03 10/22/18 13:03 10/22/18 13:03 General: Alert, Oriented x3, Cooperative, No apparent distress HEENT: Atraumatic, Normocephalic Oral: Moist Mucosa Abdomen: Obese Extremities: No edema Skin: Ulcer/ Wound Wound Measurements and Assessment WC - Nurse 1 - General Ulcer Measurement Start: 10/22/18 13:02 Freq: Status: Active Protocol: Activity Type Activity Date Activity User E-Sign Co-Sign Detail Recorded Client Recorded Date Recorded By Document 10/22/18 13:03 BS [id number] 10/22/18 13:17 BS 10/22/18 13:03 Wound Center Nurse 1 [Ulcer Assessment] #14 R Buttocks -Combined with other wound No -Current Size (cm) - Length 4.5 -Current Size (cm) - Width 5.5 -Current Size (cm) - Depth 3 -Total Square Cm 24.75 -Date of Last Picture (Recall this 10/22/18 field) -Photo Taken Yes -Classification - Thickness Full Thickness with Exposed Support Structure -Granulation Quality Red -Necrotic Tissue Type Adherent Slough -Structure Exposed Bone -Texture (Amirah-wound Skin Appearance) Assessed -Moisture (Amirah-wound Skin Appearance Maceration ) -Tenderness on Palpation (Amirah-wound No Skin Appearance) -Anesthetic Used 5% Lidocaine Gel #13 Sacral -Combined with other wound No -Current Size (cm) - Length 9 -Current Size (cm) - Width 8.6 -Current Size (cm) - Depth 2.1 -Total Square Cm 77.4 -Date of Last Picture (Recall this 10/22/18 field) -Photo Taken Yes -Tunneling No -Necrotic Tissue Type Adherent Slough -Structure Exposed Bone -Texture (Amirah-wound Skin Appearance) Assessed -Moisture (Amirah-wound Skin Appearance Maceration ) -Color (Amirah-wound Skin Appearance) Assessed -Tenderness on Palpation (Amirah-wound No Skin Appearance) -Anesthetic Used 5% Lidocaine Gel #12 L Buttocks -Combined with other wound No -Current Size (cm) - Length 3.5 -Current Size (cm) - Width 4.5 -Current Size (cm) - Depth 2.3 -Total Square Cm 15.75 -Date of Last Picture (Recall this 10/22/18 field) -Tunneling No -Classification - Thickness Full Thickness without Exposed Support Structure -Slough/Fibrin Yes -Necrosis Amt Small (1-33%) -Necrotic Tissue Type Adherent Slough -Texture (Amirah-wound Skin Appearance) Assessed -Moisture (Amirah-wound Skin Appearance Maceration ) -Color (Amirah-wound Skin Appearance) Assessed -Tenderness on Palpation (Amirah-wound No Skin Appearance) -Anesthetic Used 5% Lidocaine Gel WC - Nurse 2 - General Ulcer CM Notes Start: 10/22/18 13:02 Freq: Status: Active Protocol: Activity Type Activity Date Activity User E-Sign Co-Sign Detail Recorded Client Recorded Date Recorded By Document 10/22/18 13:41 DV [id number] 10/22/18 13:54 DV 10/22/18 13:41 Wound Center Nurse 2 [Procedure/Treatment] #15 Lateral Rt Foot -Time 14:03 -Correct Patient Yes -Correct Side, Site, Position Yes -Correct Procedure Yes -Procedure Performed Yes -Type of Procedure Debridement -Clinical Debridement Muscle -Post Debridement Size (cm) - Length 1.7 -Post Debridement Size (cm) - Width 1.6 -Post Debridement Size (cm) - Depth 0.3 -Total Square Cm 2.72 -Wound/Ulcer Outcome Not Healed -Ulcer Cleansing Rinsed/ Irrigated with Saline -Foul Odor after Cleansing No -Bioengineered Tissue No -Bleeding Controlled with Pressure -Offloading Yes -Treatment Response Procedure Tolerated Well #14 R Buttocks -Time 13:41 -Correct Patient Yes -Correct Side, Site, Position Yes -Correct Procedure Yes -Procedure Performed Yes -Type of Procedure Debridement -Clinical Debridement Muscle -Post Debridement Size (cm) - Length 4.6 -Post Debridement Size (cm) - Width 5.2 -Post Debridement Size (cm) - Depth 2.7 -Total Square Cm 23.92 -Wound/Ulcer Outcome Not Healed -Ulcer Cleansing Rinsed/ Irrigated with Saline -Foul Odor after Cleansing No -Bleeding Controlled with Pressure -Offloading No -Treatment Response Procedure Tolerated Well #13 Sacral -Time 13:42 -Correct Patient Yes -Correct Side, Site, Position Yes -Correct Procedure Yes -Procedure Performed Yes -Type of Procedure Debridement -Clinical Debridement Muscle -Post Debridement Size (cm) - Length 9.4 -Post Debridement Size (cm) - Width 8.0 -Post Debridement Size (cm) - Depth 1.5 -Total Square Cm 75.20 -Wound/Ulcer Outcome Not Healed -Ulcer Cleansing Rinsed/ Irrigated with Saline -Foul Odor after Cleansing No -Bioengineered Tissue No -Bleeding Controlled with Pressure -Offloading Yes -Treatment Response Procedure Tolerated Well #12 L Buttocks -Time 13:43 -Correct Patient Yes -Correct Side, Site, Position Yes -Correct Procedure No -Procedure Performed No -Type of Procedure Debridement -Clinical Debridement Muscle -Post Debridement Size (cm) - Length 8.5 -Post Debridement Size (cm) - Width 3.7 -Post Debridement Size (cm) - Depth 1.7 -Total Square Cm 31.45 -Wound/Ulcer Outcome Not Healed -Ulcer Cleansing Rinsed/ Irrigated with Saline -Foul Odor after Cleansing No -Bioengineered Tissue No -Bleeding Controlled with Pressure -Offloading No -Treatment Response Procedure Tolerated Well [See Physician Procedure note for Specifics] Pain Scale: 0-10 Numeric [Pain] -Is Patient Pain Free? Yes Psych/Mental Status: Normal Affect, Appropriate Debridement Note Post-Debridement Measurements/Treatment WC - Nurse 2 - General Ulcer CM Notes Start: 10/22/18 13:02 Freq: Status: Active Protocol: Activity Type Activity Date Activity User E-Sign Co-Sign Detail Recorded Client Recorded Date Recorded By Document 10/22/18 13:41 DV [id number] 10/22/18 13:54 DV 10/22/18 13:41 Wound Center Nurse 2 #15 Lateral Rt Foot -Time 14:03 -Correct Patient Yes -Correct Side, Site, Position Yes -Correct Procedure Yes -Procedure Performed Yes -Type of Procedure Debridement -Clinical Debridement Muscle -Post Debridement Size (cm) - Length 1.7 -Post Debridement Size (cm) - Width 1.6 -Post Debridement Size (cm) - Depth 0.3 -Total Square Cm 2.72 -Wound/Ulcer Outcome Not Healed -Ulcer Cleansing Rinsed/ Irrigated with Saline -Foul Odor after Cleansing No -Bioengineered Tissue No -Bleeding Controlled with Pressure -Offloading Yes -Treatment Response Procedure Tolerated Well #14 R Buttocks -Time 13:41 -Correct Patient Yes -Correct Side, Site, Position Yes -Correct Procedure Yes -Procedure Performed Yes -Type of Procedure Debridement -Clinical Debridement Muscle -Post Debridement Size (cm) - Length 4.6 -Post Debridement Size (cm) - Width 5.2 -Post Debridement Size (cm) - Depth 2.7 -Total Square Cm 23.92 -Wound/Ulcer Outcome Not Healed -Ulcer Cleansing Rinsed/ Irrigated with Saline -Foul Odor after Cleansing No -Bleeding Controlled with Pressure -Offloading No -Treatment Response Procedure Tolerated Well #13 Sacral -Time 13:42 -Correct Patient Yes -Correct Side, Site, Position Yes -Correct Procedure Yes -Procedure Performed Yes -Type of Procedure Debridement -Clinical Debridement Muscle -Post Debridement Size (cm) - Length 9.4 -Post Debridement Size (cm) - Width 8.0 -Post Debridement Size (cm) - Depth 1.5 -Total Square Cm 75.20 -Wound/Ulcer Outcome Not Healed -Ulcer Cleansing Rinsed/ Irrigated with Saline -Foul Odor after Cleansing No -Bioengineered Tissue No -Bleeding Controlled with Pressure -Offloading Yes -Treatment Response Procedure Tolerated Well #12 L Buttocks -Time 13:43 -Correct Patient Yes -Correct Side, Site, Position Yes -Correct Procedure No -Procedure Performed No -Type of Procedure Debridement -Clinical Debridement Muscle -Post Debridement Size (cm) - Length 8.5 -Post Debridement Size (cm) - Width 3.7 -Post Debridement Size (cm) - Depth 1.7 -Total Square Cm 31.45 -Wound/Ulcer Outcome Not Healed -Ulcer Cleansing Rinsed/ Irrigated with Saline -Foul Odor after Cleansing No -Bioengineered Tissue No -Bleeding Controlled with Pressure -Offloading No -Treatment Response Procedure Tolerated Well Pain Scale: 0-10 Numeric Is Patient Pain Free? Yes Wound debrided: lateral right foot Laterality: Right Wound Grade/Stage: Alvarado grade 2 Type of Debridement: Excisional debridement Anesthesia Used: 4% Lidocaine Solution, 5% Lidocaine Gel Depth: Down to and including healthy tissue, in the subcutaneous layer Percentage of wound debrided: 100 Instrument Used: 5mm curette Tissue Removed: yellow slough, devitalized tissue Severity: Fat Layer Exposed Amount of bleeding with debridement: Mild Bleeding Controlled with: Compression and gauze Patient tolerated procedure well - Additional Wound Wound debrided: right buttocks Laterality: Right Wound Grade/Stage: Stage IV Type of Debridement: Excisional debridement Anesthesia Used: 4% Lidocaine Solution Depth: Down to and including healthy tissue, in the subcutaneous layer, to muscle Percentage of wound debrided: 100 Instrument Used: 5mm curette Tissue Removed: yellow slough, devitalized tissue Severity: Necrosis of Muscle Bleeding Controlled with: Compression and gauze Patient tolerated procedure: Patient tolerated procedure well - Additional Wound Wound debrided: sacral Laterality: Not Applicable Wound Grade/Stage: Stage IV Type of Debridement: Excisional debridement Anesthesia Used: 4% Lidocaine Solution Depth: Down to and including healthy tissue, in the subcutaneous layer, to muscle Percentage of wound debrided: 100 Instrument Used: 5mm curette Tissue Removed: yellow slough, devitalized tissue Severity: Necrosis of Muscle Amount of bleeding with debridement: Mild Bleeding Controlled with: Compression and gauze Patient tolerated procedure: Patient tolerated procedure well - Additional Wound Wound debrided: left buttock Laterality: Left Wound Grade/Stage: Stage IV Type of Debridement: Excisional debridement Anesthesia Used: 4% Lidocaine Solution Depth: Down to and including healthy tissue, in the subcutaneous layer Percentage of wound debrided: 100 Instrument Used: 5mm curette Tissue Removed: yellow slough, devitalized tissue Severity: Necrosis of Muscle Amount of bleeding with debridement: Mild Bleeding Controlled with: Compression and gauze Patient tolerated procedure: Patient tolerated procedure well Assessment/Plan Active Problems (Last Reviewed 07/26/18 @ 15:47 by Alyssa Azevedo PA-C) 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 Stage IV pressure ulcer of sacral region. 2. Right ischial pressure sore, stage 4. 3. Pressure sore of left ischium, stage 4. 4. Chronic osteomyelitis of left pelvic region. 5. Diabetes mellitus Plan: Patient was evaluated at the wound center today. A subcutaneous debridement was performed today. The patient tolerated the procedure well. The new ulcer was cultured as there was purulent drainage that was present upon debridement. An xray was ordered and vascular testing was also ordered to assess her circulation. The patients wound care will consist of Dakins to bilateral ischial ulcers and will use Aquacel Ag to her sacral ulcer and the right lateral foot ulcer. She has been drinking Sigifredo daily. She is currently in [facility]. She is on a palliative treatment program as she does not desire to do any aggressive treatments and is not a candidate at this time for surgical closure of her wounds. She will follow up in 1 week.
[2018-10-29 15:52] VITALS: BP 97/60; PULSE 101; RESP 20; TEMP 36; BMI 26.2
--- NOTE | 2018-10-29 18:49 | PN.PCM_ITS ---
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 Status: Chronic Current Visit: Yes Qualifiers: Diabetic foot ulcer location: other Diabetes mellitus type: type 2 Qualified Code(s): E11.621 - Type 2 diabetes mellitus with foot ulcer; L97.513 - Non-pressure chronic ulcer of other part of right foot with necrosis of muscle Code(s): E11.621 - Type 2 diabetes mellitus with foot ulcer; L97.513 - Non-pr essure chronic ulcer of other part of right foot with necrosis of muscle Comment: lateral aspect at 5th metatarsal (2) Stage IV pressure ulcer of sacral region Status: Chronic Current Visit: No Code(s): L89.154 - Pressure ulcer of sacral region, stage 4 (3) Right ischial pressure sore, stage 4 Status: Chronic Current Visit: No Code(s): L89.314 - Pressure ulcer of right buttock, stage 4 (4) Diabetic neuropathy, type II diabetes mellitus Status: Chronic Current Visit: Yes Qualifiers: Diabetes mellitus 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 insulin use: unspecified 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 insulin use status Qualified Code(s): E11.40 - Type 2 diabetes mellitus with diabetic neuropathy, unspecified Code(s): E11.40 - Type 2 diabetes mellitus with diabetic neuropathy, unspecified (5) Pressure sore of left ischium, stage 4 Status: Chronic Current Visit: No Code(s): L89.324 - Pressure ulcer of left buttock, stage 4 (6) Spinal stenosis Status: Chronic Current Visit: Yes Qualifiers: Spinal region: lumbosacral Code(s): M48.00 - Spinal stenosis, site unspecified Type of Wound Date of Service: 10/29/18 Chief Complaint: Left ischial pressure ulcer, Stage IV. Right ischial pressure ulcer, stage IV. Sacral ulcer, Stage IV. History of Wound: Patient is a 68-year-old female who has a chronic pressure ulcers of right and left ischium and sacral ulcer. She has a history of spinal stenosis and DM. She was admitted on 06/16/18 for sepsis. On 06/17/18 she went the OR for excision infected necrotic sacral pressure sore, Stage IV, with partial ostectomy for osteomyelitis, and excision left ischial pressure sore, Stage IV, with partical ostectomy for osteomyelitis and excision right ischial pressure sore, Stage IV , with partical ostectomy for osteomyelitis by Dr. Myles. At that same time, Dr. Garza performed right septic bursitis of elbow and right wrist abscess. Cultures from 06/17/18: Sacral wound cultures were positive for Proteus mirabilis, Streptococcus mitis/oralis, Vancomycin Resist. E. faecalis, MRSA, Enterococcus raffinosus, Acinetobacter baumannii. Sacral Bone cultures showed VRE, MRSA, Proteus mirabilis, Actinomyces odontolyticus, Enterococcus raffinosus. Right ischial tissue grew MRSA, Proteus mirabilis, VRE, Streptococcus constellatus con. Right Ischial Bone culture grew: MRSA, Streptococcus mitis/oralis, Entercoccus raffinosus. Left ischial tissue grew: Vacomycin resist. E. faecalis, Streptococcus pseudoporcinus, MRSA and Streptococcus group F. Left ischial bone culture: MRSA, Staphylococcus epidermidis, and Presumptive C albicans. Patient completed antibiotic treatment with Vancomycin, Zosyn and PO Bactrim. She was on Amoxicillin 500 mg TID since admission on 08/14/18. She has a roach and a colostomy. She is now at [facility] for intermediate and rehab. Wound care: Dakins, gauze packed in the ulcers. She is taking Sigifredo. She states she has been eating well and denies any fever, chills, nausea or vomiting. Denies increased drainage or pain of ulcers. In September 2018, she developed an area to her right lateral 5th metatarsal that was callused and then had eschar and was being treated at the SNF that she is at and on October 22, 2018, she was advised to make us aware of the ulcer because it had gotten worse. The eschar fell off and it was draining some and tendon was exposed. Progress of Wound: Althea is here today to follow up on chronic pressure ulcers of her buttocks and sacrum and an ulcer of the right lateral foot today. She has had no changes in her pressure ulcers and these will not be addressed today. She was started on IV Vancomycin and Zosyn for infection of her right lateral foot yesterday to treat positive wound cultures from last week. There is no evidence of osteomyelitis at this time on xray. She is tolerating Aquacel Ag dressings to her ulcer. She wears foam booties at the assisted so there should not be pressure to the area. She denies and fever or chills. - Physical Exam Vital Signs Temp Pulse Resp BP 96.8 F L 101 H 20 H 97/60 10/29/18 15:52 10/29/18 15:52 10/29/18 15:52 10/29/18 15:52 General: Alert, Oriented x3, Cooperative, No apparent distress HEENT: Atraumatic, Normocephalic Oral: Moist Mucosa Neck: Supple Extremities: Edema Skin: Ulcer/ Wound Wound Measurements and Assessment WC - Nurse 1 - General Ulcer Measurement Start: 10/22/18 13:02 Freq: Status: Active Protocol: Activity Type Activity Date Activity User E-Sign Co-Sign Detail Recorded Client Recorded Date Recorded By Document 10/29/18 15:52 DL [id number] 10/29/18 15:58 DL 10/29/18 15:52 Wound Center Nurse 1 [Ulcer Assessment] #15 Lateral Rt Foot -Current Size (cm) - Length 1.5 -Current Size (cm) - Width 1.8 -Current Size (cm) - Depth 0.1 -Total Square Cm 2.70 -Photo Taken No -Exudate Amt None Present -Wound Margin Flat & Intact -Granulation Amt Large (67-100%) -Granulation Quality Red -Necrosis Amt Small (1-33%) -Necrotic Tissue Type Eschar -Structure Exposed N/A -Texture (Amirah-wound Skin Appearance) Scarring -Moisture (Amirah-wound Skin Appearance No Abnormality ) -Color (Amirah-wound Skin Appearance) Rubor -Temperature (Amirah-wound Skin No Abnormality Appearance) (Pt Warm) -Tenderness on Palpation (Amirah-wound No Skin Appearance) -Ulcer Cleansing Wound Cleanser -Foul Odor after Cleansing No -Anesthetic Used 5% Lidocaine Gel WC - Nurse 2 - General Ulcer CM Notes Start: 10/22/18 13:02 Freq: Status: Active Protocol: Activity Type Activity Date Activity User E-Sign Co-Sign Detail Recorded Client Recorded Date Recorded By Document 10/29/18 16:25 DV [id number] 10/29/18 16:35 DV 10/29/18 16:25 Wound Center Nurse 2 [Procedure/Treatment] -Time 16:26 -Type of Procedure Debridement -Clinical Debridement Muscle -Post Debridement Size (cm) - Length 1.8 -Post Debridement Size (cm) - Width 1.6 -Post Debridement Size (cm) - Depth 0.2 -Total Square Cm 2.88 -Wound/Ulcer Outcome Failed Flap -Ulcer Cleansing Rinsed/ Irrigated with Saline -Foul Odor after Cleansing No -Bioengineered Tissue No -Bleeding Controlled with Pressure -Offloading Yes -Treatment Response Procedure Tolerated Well [See Physician Procedure note for Specifics] Pain Scale: 0-10 Numeric [Pain] -Is Patient Pain Free? Yes Psych/Mental Status: Normal Affect, Appropriate Debridement Note Post-Debridement Measurements/Treatment WC - Nurse 2 - General Ulcer CM Notes Start: 10/22/18 13:02 Freq: Status: Active Protocol: Activity Type Activity Date Activity User E-Sign Co-Sign Detail Recorded Client Recorded Date Recorded By Document 10/22/18 13:41 DV [id number] 10/22/18 13:54 DV Document 10/29/18 16:25 DV [id number] 10/29/18 16:35 DV 10/22/18 10/29/18 13:41 16:25 Wound Center Nurse 2 #15 Lateral Rt Foot -Time 14:03 16:26 -Correct Patient Yes -Correct Side, Site, Position Yes -Correct Procedure Yes -Procedure Performed Yes -Type of Procedure Debridement Debridement -Clinical Debridement Muscle Muscle -Post Debridement Size (cm) - Length 1.7 1.8 -Post Debridement Size (cm) - Width 1.6 1.6 -Post Debridement Size (cm) - Depth 0.3 0.2 -Total Square Cm 2.72 2.88 -Wound/Ulcer Outcome Not Healed Failed Flap -Ulcer Cleansing Rinsed/ Rinsed/ Irrigated with Irrigated with Saline Saline -Foul Odor after Cleansing No No -Bioengineered Tissue No No -Bleeding Controlled with Pressure Pressure -Offloading Yes Yes -Treatment Response Procedure Procedure Tolerated Well Tolerated Well #14 R Buttocks -Time 13:41 -Correct Patient Yes -Correct Side, Site, Position Yes -Correct Procedure Yes -Procedure Performed Yes -Type of Procedure Debridement -Clinical Debridement Muscle -Post Debridement Size (cm) - Length 4.6 -Post Debridement Size (cm) - Width 5.2 -Post Debridement Size (cm) - Depth 2.7 -Total Square Cm 23.92 -Wound/Ulcer Outcome Not Healed -Ulcer Cleansing Rinsed/ Irrigated with Saline -Foul Odor after Cleansing No -Bleeding Controlled with Pressure -Offloading No -Treatment Response Procedure Tolerated Well #13 Sacral -Time 13:42 -Correct Patient Yes -Correct Side, Site, Position Yes -Correct Procedure Yes -Procedure Performed Yes -Type of Procedure Debridement -Clinical Debridement Muscle -Post Debridement Size (cm) - Length 9.4 -Post Debridement Size (cm) - Width 8.0 -Post Debridement Size (cm) - Depth 1.5 -Total Square Cm 75.20 -Wound/Ulcer Outcome Not Healed -Ulcer Cleansing Rinsed/ Irrigated with Saline -Foul Odor after Cleansing No -Bioengineered Tissue No -Bleeding Controlled with Pressure -Offloading Yes -Treatment Response Procedure Tolerated Well #12 L Buttocks -Time 13:43 -Correct Patient Yes -Correct Side, Site, Position Yes -Correct Procedure No -Procedure Performed No -Type of Procedure Debridement -Clinical Debridement Muscle -Post Debridement Size (cm) - Length 8.5 -Post Debridement Size (cm) - Width 3.7 -Post Debridement Size (cm) - Depth 1.7 -Total Square Cm 31.45 -Wound/Ulcer Outcome Not Healed -Ulcer Cleansing Rinsed/ Irrigated with Saline -Foul Odor after Cleansing No -Bioengineered Tissue No -Bleeding Controlled with Pressure -Offloading No -Treatment Response Procedure Tolerated Well Pain Scale: 0-10 Numeric Is Patient Pain Free? Yes Yes Wound debrided: lateral right foot Laterality: Right Wound Grade/Stage: Alvarado grade 3 Type of Debridement: Excisional debridement Anesthesia Used: 4% Lidocaine Solution, 5% Lidocaine Gel Depth: Down to and including healthy tissue, in the subcutaneous layer, to muscle Percentage of wound debrided: 100 Instrument Used: #15 blade, Forceps Tissue Removed: eschar, and devitalized tissue Severity: Fat Layer Exposed Amount of bleeding with debridement: Mild Bleeding Controlled with: Compression and gauze, Gel Foam Patient tolerated procedure well Assessment/Plan Active Problems (Last Reviewed 07/26/18 @ 15:47 by Alyssa Azevedo PA-C) 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 Stage IV pressure ulcer of sacral region. 2. Right ischial pressure sore, stage 4. 3. Pressure sore of left ischium, stage 4. 4. Chronic osteomyelitis of left pelvic region. 5. Diabetes mellitus Plan: Patient was evaluated at the wound center today. A subcutaneous debridement was performed today on her right lateral foot. The patient tolerated the procedure well. Her culture results were reviewed with her and xray results showed no osteomyelitis. Vascular testing is scheduled for next week to assess her circulation. The patients wound care will consist of Dakins to bilateral ischial ulcers and will use Aquacel Ag to her sacral ulcer and the right lateral foot ulcer. She has been drinking Sigifredo daily. She is currently in [facility]. She is on a palliative treatment program as she does not desire to do any aggressive treatments and is not a candidate at this time for surgical closure of her wounds. She will follow up in 2 weeks.
--- NOTE | 2018-11-02 13:13 | ART_ITS ---
Reason For Study: PAD Left Segmental Pressures Left posterior tibial artery = 130mmHg. Left dorsalis pedis artery = 132mmHg. Left digit = 100 mmHg. The left dorsalis pedis waveforms are triphasic. The left posterior tibial artery waveforms are triphasic. Right Segmental Pressures Right brachial= 118mmHg. Right posterior tibial artery = 149mmHg. Right dorsalis pedis artery = 148mmHg. Right digit = 82 mmHg. The right dorsalis pedis waveforms are triphasic. The right posterior tibial artery waveforms are triphasic. Indices The right ankle brachial index by the dorsalis pedis is 1.25. The right ankle brachial index by the posterior tibial artery is 1.26. The left ankle brachial index by the dorsalis pedis is 1.12. The left ankle brachial index by the posterior tibial artery is 1.10. Interpretation Summary Triphasic Doppler waveforms are noted at ankle level bilaterally. Pulse-volume recording waveform amplitudes appear satisfactory bilaterally. Resting ankle-brachial indices are normal bilaterally. The right digital-brachial index is mildly diminished. The left digital-brachial index is normal. Arterial flow appears normal at ankle level bilaterally. There appears to be mild, distal, small- vessel arterial occlusive disease in the right lower extremity. Arterial flow at digital level in the left lower extremity appears normal. Ordering Physician: Vanessa Bull Performed By: JUSTEN MÁRQUEZ RVJose C
--- NOTE | 2018-11-02 13:13 | VDLE_ITS ---
Reason For Study: R lateral foot ulcer RIGHT LEFT CFV is compressible, spontaneous, phasic, CFV is compressible, spontaneous, phasic, competent and demonstrates normal competent, and demonstrates normal augmentation. augmentation. FV is compressible, spontaneous, phasic, FV is compressible, spontaneous, phasic, competent and demonstrates normal competent and demonstrates normal augmentation. augmentation. POP V is compressible, spontaneous, phasic, POP V is compressible, spontaneous, phasic, competent and demonstrates normal competent and demonstrates normal augmentation. augmentation. T/P Trunk is compressible. T/P Trunk is compressible. PTV is compressible. PTV is compressible. RT PerV is compressible. LT PerV is compressible. S-F Junction is competent. S-F Junction is competent. GSV is competent throughout. GSV is competent throughout. SSV is competent. SSV is competent. Procedure Exam performed in department. The exam was diagnostic. Patient was scanned in reverse Trendelenburg position during reflux assessment. Interpretation Summary Deep veins of the lower extremities are bilaterally patent and compressible segmentally. There is no evidence of deep vein thrombosis on either side. Valvular competence appears intact within the proximal deep venous systems bilaterally. The greater saphenous veins appear bilaterally patent and compressible segmentally. Sapheno-femoral junctions are bilaterally competent . Valvular competence appears to be intact segmentally within the greater saphenous veins bilaterally. Small saphenous veins are patent and competent bilaterally. Ordering Physician: Vanessa Bull Performed By: Mic Lang RVT
[2018-11-12 14:07] VITALS: BP 92/52; PULSE 106; RESP 20; TEMP 36.4; BMI 26.2
--- NOTE | 2018-11-12 16:15 | BON_PTH ---
PATIENT: VAZQUEZ ZAMBRANO LOC: U#:[id number] AGE/SX: 68/F ROOM: RE11/12/[address]: Dr. Vanessa Bull DO : 1950 BED: DIS: 11/17/2018 SPEC #: [id number] RECD: 11/12/18 17:10 STATUS: GERMAINEJose C REEscobar #: [id number] JUDY: 11/12/18 16:[address]: Vanessa Bull DEPT: SURGICAL PATHOLOGY RECD BY: Tra Willis ENTERED: 11/15/18 09:35 SP TYPE: Bone OTHR DR: Dr. Phani Mackenzie MD Tissues: Bone of foot, NOS Procedures: Decalcification bone/plaque Surgery Specimen Level III HEADER OPERATION: Biopsy of bone right lateral fifth metatarsal PRE-OP DIAGNOSIS: Stage IV pressure ulcer / diabetic foot ulcer right lateral fifth metatarsal TISSUE SUBMITTED: Right lateral fifth metatarsal MICROSCOPIC DIAGNOSIS Right lateral fifth metatarsal bone, biopsy: A piece of bone, negative for acute osteomyelitis. LUBA:clare 11/18/18 MICROSCOPIC DESCRIPTION Slides are reviewed. GROSS DESCRIPTION Received in fixative is one container labeled with the patient's name and designated right lateral foot ulcer tissue. The specimen consists of a piece of malone-pink bone measuring 0.4 x 0.2 x 0.1 cm. The entire specimen is submitted in one cassette after decalcification. / LUBA:clare 11/15/18 TC:5 [facility]: [id number]
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
== END 2018-11-17 23:59 ==
LOC: WC 14:00
PROVIDERS: Family Provider Family Medicine; PCP Family Medicine; Referring Provider Family Medicine; Visit Provider Family Medicine
DX: E11.622 Type 2 diabetes mellitus with other skin ulcer (principal); E11.621 Type 2 diabetes mellitus with foot ulcer; L89.154 Pressure ulcer of sacral region, stage 4; L89.214 Pressure ulcer of right hip, stage 4; E11.40 Type 2 diabetes mellitus with diabetic neuropathy, unspecified; M48.00 Spinal stenosis, site unspecified; L89.224 Pressure ulcer of left hip, stage 4; Z93.3 Colostomy status; E11.69 Type 2 diabetes mellitus with other specified complication; M86.68 Other chronic osteomyelitis, other site; L97.512 Non-pressure chronic ulcer of other part of right foot with fat layer exposed
CPT/HCPCS: 11042; 11043; 11045; 11046; 87070; 87075; 87077; 87186; 87205; 88304; 88311; 93923; 93970

== ENCOUNTER → 2018-12-02 08:19 | Outpatient (CLI) | payer MEDICAID, SELFPAY ==
[2018-11-26 14:12] VITALS: BMI 26.2
--- NOTE | 2018-12-02 08:23 | VDUE_ITS ---
Reason For Study: DVT Left Proximal Left jugular vein is spontaneous, widely patent, phasic, with no intraluminal echogenicity noted. Subclavian and Axillary veins are mostly compressible witth normal venous flow patterns. Improvement from previous study done 07/26/2018. Left Arm Left brachial vein is compressible. Left cephalic vein is compressible. Left basilic vein is compressible. Left Lower Arm Left radial vein is compressible. Left ulnar vein is compressible. Interpretation Summary Chronic deep venous thrombosis left subclavian and axillary veins with improvement noted from 07/26/18. Ordering Physician: Meggan Barbosa Performed By: Mic Lang RVT ?
== END ==
PROVIDERS: Family Provider Family Medicine; PCP Family Medicine; Referring Provider Internal Medicine Hematology & Oncology; Visit Provider Internal Medicine Hematology & Oncology
DX: I82.722 Chronic embolism and thrombosis of deep veins of left upper extremity (principal)
CPT/HCPCS: 93971

== ENCOUNTER 2018-12-17 14:00 | Outpatient (RCR) | payer MEDICAID, SELFPAY ==
[2018-11-18 00:50] VITALS: BP 92/52; PULSE 106; RESP 20; TEMP 36.4
[2018-11-26 14:12] VITALS: BP 94/58; PULSE 94; RESP 18; TEMP 36.1; BMI 26.2
--- NOTE | 2018-11-26 18:47 | PCM.WC.PN ---
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 Status: Chronic Current Visit: Yes Qualifiers: Diabetic foot ulcer location: other Diabetes mellitus type: type 2 Qualified Code(s): E11.621 - Type 2 diabetes mellitus with foot ulcer; L97.513 - Non-pressure chronic ulcer of other part of right foot with necrosis of muscle Code(s): E11.621 - Type 2 diabetes mellitus with foot ulcer; L97.513 - Non-pressure chronic ulcer of other part of right foot with necrosis of muscle Comment: lateral aspect at 5th metatarsal (2) Stage IV pressure ulcer of sacral region Status: Chronic Current Visit: Yes Code(s): L89.154 - Pressure ulcer of sacral region, stage 4 (3) Right ischial pressure sore, stage 4 Status: Chronic Current Visit: Yes Code(s): L89.314 - Pressure ulcer of right buttock, stage 4 (4) Diabetes mellitus Status: Chronic Current Visit: Yes Qualifiers: Diabetes mellitus type: type 2 Diabetes mellitus long term care social worker insulin use: unspecified long term care social worker insulin use status Diabetes mellitus complication status: with skin complications Diabetes mellitus complication detail: with foot ulcer Qualified Code(s): E11.621 - Type 2 diabetes mellitus with foot ulcer; L97.509 - Non-pressure chronic ulcer of other part of unspecified foot with unspecified severity Code(s): E11.9 - Type 2 diabetes mellitus without complications (5) Pressure sore of left ischium, stage 4 Status: Chronic Current Visit: Yes Code(s): L89.324 - Pressure ulcer of left buttock, stage 4 (6) Spinal stenosis Status: Chronic Current Visit: Yes Qualifiers: Spinal region: lumbar Code(s): M48.00 - Spinal stenosis, site unspecified Type of Wound Date of Service: 11/26/18 Chief Complaint: Left ischial pressure ulcer, Stage IV. Right ischial pressure ulcer, stage IV. Sacral ulcer, Stage IV. Alvarado grade 4 ulcer of right lateral 5th metatarsal History of Wound: Patient is a 68-year-old female who has a chronic pressure ulcers of right and left ischium and sacral ulcer. She has a history of spinal stenosis and DM. She was admitted on 06/16/18 for sepsis. On 06/17/18 she went the OR for excision infected necrotic sacral pressure sore, Stage IV, with partial ostectomy for osteomyelitis, and excision left ischial pressure sore, Stage IV, with partical ostectomy for osteomyelitis and excision right ischial pressure sore, Stage IV , with partical ostectomy for osteomyelitis by Dr. Myles. At that same time, Dr. Garza performed right septic bursitis of elbow and right wrist abscess. Cultures from 06/17/18: Sacral wound cultures were positive for Proteus mirabilis, Streptococcus mitis/oralis, Vancomycin Resist. E. faecalis, MRSA, Enterococcus raffinosus, Acinetobacter baumannii. Sacral Bone cultures showed VRE, MRSA, Proteus mirabilis, Actinomyces odontolyticus, Enterococcus raffinosus. Right ischial tissue grew MRSA, Proteus mirabilis, VRE, Streptococcus constellatus con. Right Ischial Bone culture grew: MRSA, Streptococcus mitis/oralis, Entercoccus raffinosus. Left ischial tissue grew: Vacomycin resist. E. faecalis, Streptococcus pseudoporcinus, MRSA and Streptococcus group F. Left ischial bone culture: MRSA, Staphylococcus epidermidis, and Presumptive C albicans. Patient completed antibiotic treatment with Vancomycin, Zosyn and PO Bactrim. She was on Amoxicillin 500 mg TID since admission on 08/14/18. She has a roach and a colostomy. She is now at [facility] for half-way and rehab. Wound care: Dakins, gauze packed in the ulcers. She is taking Sigifredo. She states she has been eating well and denies any fever, chills, nausea or vomiting. Denies increased drainage or pain of ulcers. In September 2018, she developed an area to her right lateral 5th metatarsal that was callused and then had eschar and was being treated at the SNF that she is at and on October 22, 2018, she was advised to make us aware of the ulcer because it had gotten worse. The eschar fell off and it was draining some and tendon was exposed. Progress of Wound: Althea is here today to follow up on chronic pressure ulcers of her buttocks and sacrum and an ulcer of the right lateral foot today. She has had no worsening of her right foot ulcer. Her other ulcers are stable. BOne biopsy was negative for osteomyelitis. Xray was never completed. She is currently on cefdinir. She is tolerating Rain dressings to her ulcer but it appears dry. She wears foam booties at the snf so there should not be pressure to the area. She denies and fever or chills. - Physical Exam Vital Signs Temp Pulse Resp BP 96.9 F L 94 18 94/58 L 11/26/18 14:12 11/26/18 14:12 11/26/18 14:12 11/26/18 14:12 General: Alert, Oriented x3, Cooperative, No apparent distress HEENT: Atraumatic, Normocephalic Oral: Moist Mucosa Abdomen: Soft, Non Tender Extremities: No edema Skin: Ulcer/ Wound Wound Measurements and Assessment WC - Nurse 1 - General Ulcer Measurement Start: 11/26/18 14:12 Freq: Status: Active Protocol: Activity Type Activity Date Activity User E-Sign Co-Sign Detail Recorded Client Recorded Date Recorded By Document 11/26/18 14:12 DL [id number] 11/26/18 14:27 DL 11/26/18 14:12 Wound Center Nurse 1 [Ulcer Assessment] #15 Lateral Rt Foot -Current Size (cm) - Length 1.5 -Current Size (cm) - Width 0.7 -Current Size (cm) - Depth 0.1 -Total Square Cm 1.05 -Tunneling No -Undermining/Tunneling No -Circular Undermining No -Exudate Amt Small -Exudate Type Serosanguineous -Wound Margin Flat & Intact -Granulation Amt Medium (34-66%) -Granulation Quality Red -Slough/Fibrin Yes -Necrosis Amt Medium (34-66%) -Necrotic Tissue Type Adherent Slough -Structure Exposed N/A -Texture (Amirah-wound Skin Appearance) Assessed -Moisture (Amirah-wound Skin Appearance Assessed,Dry/ ) Scaly -Color (Amirah-wound Skin Appearance) Assessed -Temperature (Amirah-wound Skin No Abnormality Appearance) (Pt Warm) -Tenderness on Palpation (Amirah-wound No Skin Appearance) -Ulcer Cleansing Wound Cleanser -Foul Odor after Cleansing No -Anesthetic Used 5% Lidocaine Gel #14 R Buttocks -Current Size (cm) - Length 4 -Current Size (cm) - Width 4 -Current Size (cm) - Depth 2.5 -Total Square Cm 16 -Photo Taken No -Exudate Amt Small -Exudate Type Serosanguineous -Wound Margin Distinct, Outline Attached -Granulation Amt Large (67-100%) -Granulation Quality Red -Necrosis Amt Small (1-33%) -Necrotic Tissue Type Adherent Slough -Structure Exposed N/A -Texture (Amirah-wound Skin Appearance) Scarring -Moisture (Amirah-wound Skin Appearance No Abnormality ) -Color (Amirah-wound Skin Appearance) Rubor -Temperature (Amirah-wound Skin No Abnormality Appearance) (Pt Warm) -Tenderness on Palpation (Amirah-wound No Skin Appearance) -Ulcer Cleansing Wound Cleanser -Foul Odor after Cleansing No -Anesthetic Used 4% Lidocaine Solution #13 Sacral -Current Size (cm) - Length 7.5 -Current Size (cm) - Width 6.7 -Current Size (cm) - Depth 2 -Total Square Cm 50.25 -Photo Taken No -Undermining/Tunneling Starts (O' 12 clock) -Undermining/Tunneling Ends (O'clock) 3 -Maximum Distance (cm) 3 -Exudate Amt Medium -Exudate Type Serosanguineous -Wound Margin Thickened & Rolled Under -Granulation Amt Large (67-100%) -Granulation Quality Red -Necrosis Amt Small (1-33%) -Necrotic Tissue Type Adherent Slough -Structure Exposed N/A -Texture (Amirah-wound Skin Appearance) Scarring -Moisture (Amirah-wound Skin Appearance No Abnormality ) -Color (Amirah-wound Skin Appearance) Rubor -Temperature (Amirah-wound Skin No Abnormality Appearance) (Pt Warm) -Tenderness on Palpation (Amirah-wound No Skin Appearance) -Ulcer Cleansing Wound Cleanser -Foul Odor after Cleansing No -Anesthetic Used 5% Lidocaine Gel #12 L Buttocks -Current Size (cm) - Length 4 -Current Size (cm) - Width 3 -Current Size (cm) - Depth 1.7 -Total Square Cm 12 -Photo Taken No -Exudate Amt Small -Exudate Type Serosanguineous -Wound Margin Thickened & Rolled Under -Granulation Amt Large (67-100%) -Granulation Quality [place] -Necrosis Amt Small (1-33%) -Necrotic Tissue Type Adherent Slough -Structure Exposed N/A -Texture (Amirah-wound Skin Appearance) Scarring -Moisture (Amirah-wound Skin Appearance No Abnormality ) -Color (Amirah-wound Skin Appearance) Rubor -Temperature (Amirah-wound Skin No Abnormality Appearance) (Pt Warm) -Tenderness on Palpation (Amirah-wound No Skin Appearance) -Ulcer Cleansing Wound Cleanser -Foul Odor after Cleansing No -Anesthetic Used 5% Lidocaine Gel WC - Nurse 2 - General Ulcer CM Notes Start: 11/26/18 14:12 Freq: Status: Active Protocol: Activity Type Activity Date Activity User E-Sign Co-Sign Detail Recorded Client Recorded Date Recorded By Document 11/26/18 15:21 DV [id number] 11/26/18 15:44 DV 11/26/18 15:21 Wound Center Nurse 2 [Procedure/Treatment] #15 Lateral Rt Foot -Time 15:30 -Correct Patient Yes -Correct Side, Site, Position Yes -Correct Procedure Yes -Procedure Performed Yes -Type of Procedure Debridement -Clinical Debridement Bone -Post Debridement Size (cm) - Length 2 -Post Debridement Size (cm) - Width 1.8 -Post Debridement Size (cm) - Depth 0.2 -Total Square Cm 3.6 -Wound/Ulcer Outcome Not Healed -Ulcer Cleansing Rinsed/ Irrigated with Saline -Foul Odor after Cleansing No -Bleeding Controlled with NA -Offloading Yes -Type of Offloading Wedge Shoe -Treatment Response Procedure Tolerated Well #14 R Buttocks -Time 15:31 -Correct Patient Yes -Correct Side, Site, Position Yes -Correct Procedure Yes -Procedure Performed Yes -Clinical Debridement Subcutaneous -Post Debridement Size (cm) - Length 5.4 -Post Debridement Size (cm) - Width 5.1 -Post Debridement Size (cm) - Depth 2.1 -Total Square Cm 27.54 -Wound/Ulcer Outcome Not Healed -Ulcer Cleansing Rinsed/ Irrigated with Saline -Bleeding Controlled with Pressure -Offloading No -Treatment Response Procedure Tolerated Well #13 Sacral -Time 15:30 -Correct Patient Yes -Correct Side, Site, Position Yes -Correct Procedure Yes -Procedure Performed Yes -Type of Procedure Debridement -Clinical Debridement Subcutaneous -Post Debridement Size (cm) - Length 7.8 -Post Debridement Size (cm) - Width 7.9 -Post Debridement Size (cm) - Depth 0.5 -Total Square Cm 61.62 -Wound/Ulcer Outcome Not Healed -Ulcer Cleansing Rinsed/ Irrigated with Saline -Foul Odor after Cleansing No -Bioengineered Tissue No -Bleeding Controlled with Pressure -Offloading No -Treatment Response Procedure Tolerated Well #12 L Buttocks -Time 15:29 -Correct Patient Yes -Correct Side, Site, Position Yes -Correct Procedure Yes -Procedure Performed Yes -Type of Procedure Debridement -Clinical Debridement Subcutaneous -Post Debridement Size (cm) - Length 4.5 -Post Debridement Size (cm) - Width 4.5 -Post Debridement Size (cm) - Depth 2.5 -Total Square Cm 20.25 -Wound/Ulcer Outcome Not Healed -Ulcer Cleansing Rinsed/ Irrigated with Saline -Foul Odor after Cleansing No -Bioengineered Tissue No -Bleeding Controlled with Pressure -Offloading No -Treatment Response Procedure Tolerated Well [See Physician Procedure note for Specifics] Pain Scale: 0-10 Numeric [Pain] -Is Patient Pain Free? Yes Psych/Mental Status: Normal Affect, Appropriate Debridement Note Post-Debridement Measurements/Treatment WC - Nurse 2 - General Ulcer CM Notes Start: 11/26/18 14:12 Freq: Status: Active Protocol: Activity Type Activity Date Activity User E-Sign Co-Sign Detail Recorded Client Recorded Date Recorded By Document 11/26/18 15:21 DV [id number] 11/26/18 15:44 DV 11/26/18 15:21 Wound Center Nurse 2 #15 Lateral Rt Foot -Time 15:30 -Correct Patient Yes -Correct Side, Site, Position Yes -Correct Procedure Yes -Procedure Performed Yes -Type of Procedure Debridement -Clinical Debridement Bone -Post Debridement Size (cm) - Length 2 -Post Debridement Size (cm) - Width 1.8 -Post Debridement Size (cm) - Depth 0.2 -Total Square Cm 3.6 -Wound/Ulcer Outcome Not Healed -Ulcer Cleansing Rinsed/ Irrigated with Saline -Foul Odor after Cleansing No -Bleeding Controlled with NA -Offloading Yes -Type of Offloading Wedge Shoe -Treatment Response Procedure Tolerated Well #14 R Buttocks -Time 15:31 -Correct Patient Yes -Correct Side, Site, Position Yes -Correct Procedure Yes -Procedure Performed Yes -Clinical Debridement Subcutaneous -Post Debridement Size (cm) - Length 5.4 -Post Debridement Size (cm) - Width 5.1 -Post Debridement Size (cm) - Depth 2.1 -Total Square Cm 27.54 -Wound/Ulcer Outcome Not Healed -Ulcer Cleansing Rinsed/ Irrigated with Saline -Bleeding Controlled with Pressure -Offloading No -Treatment Response Procedure Tolerated Well #13 Sacral -Time 15:30 -Correct Patient Yes -Correct Side, Site, Position Yes -Correct Procedure Yes -Procedure Performed Yes -Type of Procedure Debridement -Clinical Debridement Subcutaneous -Post Debridement Size (cm) - Length 7.8 -Post Debridement Size (cm) - Width 7.9 -Post Debridement Size (cm) - Depth 0.5 -Total Square Cm 61.62 -Wound/Ulcer Outcome Not Healed -Ulcer Cleansing Rinsed/ Irrigated with Saline -Foul Odor after Cleansing No -Bioengineered Tissue No -Bleeding Controlled with Pressure -Offloading No -Treatment Response Procedure Tolerated Well #12 L Buttocks -Time 15:29 -Correct Patient Yes -Correct Side, Site, Position Yes -Correct Procedure Yes -Procedure Performed Yes -Type of Procedure Debridement -Clinical Debridement Subcutaneous -Post Debridement Size (cm) - Length 4.5 -Post Debridement Size (cm) - Width 4.5 -Post Debridement Size (cm) - Depth 2.5 -Total Square Cm 20.25 -Wound/Ulcer Outcome Not Healed -Ulcer Cleansing Rinsed/ Irrigated with Saline -Foul Odor after Cleansing No -Bioengineered Tissue No -Bleeding Controlled with Pressure -Offloading No -Treatment Response Procedure Tolerated Well Pain Scale: 0-10 Numeric Is Patient Pain Free? Yes Wound debrided: right lateral foot Laterality: Right Wound Grade/Stage: Alvarado grade 2 Type of Debridement: Excisional debridement Anesthesia Used: 4% Lidocaine Solution Depth: Down to and including healthy tissue, in the subcutaneous layer, to muscle, to bone Percentage of wound debrided: 100 Instrument Used: 5mm curette Tissue Removed: yellow slough, devitalized tissue Severity: Necrosis of Muscle Amount of bleeding with debridement: Mild Bleeding Controlled with: Compression and gauze Patient tolerated procedure well - Additional Wound Wound debrided: right buttock Laterality: Right Wound Grade/Stage: stage 4 Type of Debridement: Excisional debridement Anesthesia Used: 4% Lidocaine Solution Depth: Down to and including healthy tissue, in the subcutaneous layer, to muscle Percentage of wound debrided: 100 Instrument Used: 7mm curette Tissue Removed: yellow slough, devitalized tissue Severity: Fat Layer Exposed Amount of bleeding with debridement: Mild Bleeding Controlled with: Compression and gauze Patient tolerated procedure: Patient tolerated procedure well - Additional Wound Wound debrided: sacral Laterality: Not Applicable Wound Grade/Stage: Stage 4 Type of Debridement: Excisional debridement Anesthesia Used: 4% Lidocaine Solution Depth: Down to and including healthy tissue, in the subcutaneous layer, to muscle Percentage of wound debrided: 100 Instrument Used: 7mm curette Tissue Removed: yellow slough, devitalized tissue Severity: Fat Layer Exposed Amount of bleeding with debridement: Mild Bleeding Controlled with: Compression and gauze Patient tolerated procedure: Patient tolerated procedure well - Additional Wound Wound debrided: left buttock Laterality: Left Wound Grade/Stage: Stage 4 Type of Debridement: Excisional debridement Anesthesia Used: 4% Lidocaine Solution Depth: Down to and including healthy tissue, in the subcutaneous layer Percentage of wound debrided: 100 Instrument Used: 7mm curette Tissue Removed: yellow slough, devitalized tissue Severity: Fat Layer Exposed Amount of bleeding with debridement: Mild Bleeding Controlled with: Compression and gauze Patient tolerated procedure: Patient tolerated procedure well Assessment/Plan Active Problems (Last Reviewed 07/26/18 @ 15:47 by Alyssa Azevedo PA-C) Diabetic ulcer of right foot with necrosis of muscle (Chronic) lateral aspect at 5th metatarsal Stage IV pressure ulcer of sacral region (Chronic) Right ischial pressure sore, stage 4 (Chronic) Diabetes mellitus (Chronic) Pressure sore of left ischium, stage 4 (Chronic) Spinal stenosis (Chronic) Assessment: 1. Stage IV pressure ulcer of sacral region. 2. Right ischial pressure sore, stage 4. 3. Pressure sore of left ischium, stage 4. 4. Chronic osteomyelitis of left pelvic region. 5. Diabetes mellitus. 6. DFU right lateral foot Grade 2 Plan: Patient was evaluated at the wound center today. A subcutaneous debridement was performed today on her right lateral foot, buttocks and sacral ulcers. The patient tolerated the procedure well. A repeat xray was ordered to evaluate for osteomyelitis in her right foot ulcer, although bone biopsy did not show osteomyleitis. Wound culture was positive and she is currently on cefdinir. 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 The patients wound care will consist of Dakins to bilateral ischial ulcers and to her sacral ulcer and Fibracol and adaptic to the right lateral foot ulcer for heavy drainage. I think she would benefit from a wound vac to her right lateral foot ulcer to stimulate granulation. She may need surgical debridement. She has been drinking Sigifredo daily. She is currently in [facility]. She is on a palliative treatment program as she does not desire to do any aggressive treatments and is not a candidate at this time for surgical closure of her wounds. She will follow up in 2 weeks.
[2018-12-10 13:59] VITALS: BP 88/61; PULSE 101; RESP 18; TEMP 36.2; BMI 26.2
[2018-12-17 14:23] VITALS: BP 99/54; PULSE 95; RESP 16; TEMP 35.7; BMI 26.2
--- NOTE | 2018-12-17 19:01 | PN.PCM_ITS ---
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 Status: Chronic Current Visit: Yes Qualifiers: Diabetic foot ulcer location: other Diabetes mellitus type: type 2 Qualified Code(s): E11.621 - Type 2 diabetes mellitus with foot ulcer; L97.513 - Non-pressure chronic ulcer of other part of right foot with necrosis of muscle Code(s): E11.621 - Type 2 diabetes mellitus with foot ulcer; L97.513 - Non-pr essure chronic ulcer of other part of right foot with necrosis of muscle Comment: lateral aspect at 5th metatarsal (2) Stage IV pressure ulcer of sacral region Status: Chronic Current Visit: Yes Code(s): L89.154 - Pressure ulcer of sacral region, stage 4 (3) Right ischial pressure sore, stage 4 Status: Chronic Current Visit: Yes Code(s): L89.314 - Pressure ulcer of right buttock, stage 4 (4) Diabetes mellitus Status: Chronic Current Visit: Yes Qualifiers: Diabetes mellitus type: type 2 Diabetes mellitus group home insulin use: unspecified 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 [employer] insulin use status Diabetes mellitus complication status: with skin complications Diabetes mellitus complication detail: with foot ulcer Qualified Code(s): E11.621 - Type 2 diabetes mellitus with foot ulcer; L97.509 - Non-pressure chronic ulcer of other part of unspecified foot with unspecified severity Code(s): E11.9 - Type 2 diabetes mellitus without complications (5) Pressure sore of left ischium, stage 4 Status: Chronic Current Visit: Yes Code(s): L89.324 - Pressure ulcer of left buttock, stage 4 (6) Spinal stenosis Status: Chronic Current Visit: Yes Qualifiers: Spinal region: lumbar Code(s): M48.00 - Spinal stenosis, site unspecified Type of Wound Date of Service: 12/10/18 Chief Complaint: Left ischial pressure ulcer, Stage IV. Right ischial pressure ulcer, stage IV. Sacral ulcer, Stage IV. Alvarado grade 4 ulcer of right lateral 5th metatarsal History of Wound: Patient is a 68-year-old female who has a chronic pressure ulcers of right and left ischium and sacral ulcer. She has a history of spinal stenosis and DM. She was admitted on 06/16/18 for sepsis. On 06/17/18 she went the OR for excision infected necrotic sacral pressure sore, Stage IV, with partial ostectomy for osteomyelitis, and excision left ischial pressure sore, Stage IV, with partical ostectomy for osteomyelitis and excision right ischial pressure sore, Stage IV , with partical ostectomy for osteomyelitis by Dr. Myles. At that same time, Dr. Garza performed right septic bursitis of elbow and right wrist abscess. Cultures from 06/17/18: Sacral wound cultures were positive for Proteus mirabilis, Streptococcus mitis/oralis, Vancomycin Resist. E. faecalis, MRSA, Enterococcus raffinosus, Acinetobacter baumannii. Sacral Bone cultures showed VRE, MRSA, Proteus mirabilis, Actinomyces odontolyticus, Enterococcus raffinosus. Right ischial tissue grew MRSA, Proteus mirabilis, VRE, St reptococcus constellatus con. Right Ischial Bone culture grew: MRSA, Streptococcus mitis/oralis, Entercoccus raffinosus. Left ischial tissue grew: Vacomycin resist. E. faecalis, Streptococcus pseudoporcinus, MRSA and Streptococcus group F. Left ischial bone culture: MRSA, Staphylococcus epidermidis, and Presumptive C albicans. Patient completed antibiotic treatment with Vancomycin, Zosyn and PO Bactrim. She was on Amoxicillin 500 mg TID since admission on 08/14/18. She has a roach and a colostomy. She is now at [facility] and rehab. Wound care: Dakins, gauze packed in the ulcers. She is taking Sigifredo. She states she has been eating well and denies any fever, chills, nausea or vomiting. Denies increased drainage or pain of ulcers. In September 2018, she developed an area to her right lateral 5th metatarsal that was callused and then had eschar and was being treated at the SNF that she is at and on October 22, 2018, she was advised to make us aware of the ulcer because it had gotten worse. The eschar fell off and it was draining some and tendon was exposed. Progress of Wound: Althea is here today to follow up on chronic pressure ulcers of her buttocks and sacrum and an ulcer of the right lateral foot today. She tolerated application of Epifix #1. Her other ulcers are stable. Bone biopsy was negative for osteomyelitis. Xray was suspicious for osteomyelitis but given biopsy was negative and clinically ulcer is improving it is unlikely osteomyelitis. She wears foam booties at the assisted so there should not be pressure to the area. She denies and fever or chills. - Physical Exam Vital Signs Temp Pulse Resp BP 96.2 F L 95 16 99/54 L 12/17/18 14:23 12/17/18 14:23 12/17/18 14:23 12/17/18 14:23 General: Alert, Oriented x3, Cooperative, No apparent distress HEENT: Atraumatic, Normocephalic Oral: Moist Mucosa Extremities: No edema Skin: Ulcer/ Wound Wound Measurements and Assessment WC - Nurse 1 - General Ulcer Measurement Start: 11/26/18 14:12 Freq: Status: Active Protocol: Activity Type Activity Date Activity User E-Sign Co-Sign Detail Recorded Client Recorded Date Recorded By Document 12/17/18 14:23 [facility] [id number] 12/17/18 14:49 [facility] 12/17/18 14:23 Wound Center Nurse 1 [Ulcer Assessment] #15 Lateral Rt Foot -Combined with other wound No -Current Size (cm) - Length 2 -Current Size (cm) - Width 1.5 -Current Size (cm) - Depth 0.3 -Total Square Cm 3.0 -Photo Taken No -Epithelialization None Present -Tunneling No -Undermining/Tunneling No -Circular Undermining No -Classification - Thickness Full Thickness with Exposed Support Structure -Exudate Amt Large -Exudate Type Sanguineous -Wound Margin Distinct, Outline Attached -Granulation Amt Large (67-100%) -Granulation Quality Red -Slough/Fibrin Yes -Necrosis Amt Small (1-33%) -Necrotic Tissue Type Adherent Slough -Structure Exposed Bone -Texture (Amirah-wound Skin Appearance) Assessed, Localized Edema -Moisture (Amirah-wound Skin Appearance Assessed ) -Color (Amirah-wound Skin Appearance) Assessed, Erythema -Temperature (Amirah-wound Skin No Abnormality Appearance) (Pt Warm) -Tenderness on Palpation (Amirah-wound No Skin Appearance) -Ulcer Cleansing SOAP AND WATER -Foul Odor after Cleansing No -Anesthetic Used 4% Lidocaine Solution #14 R Buttocks -Combined with other wound No -Current Size (cm) - Length 4.7 -Current Size (cm) - Width 3.2 -Current Size (cm) - Depth 2.6 -Total Square Cm 15.04 -Photo Taken No -Epithelialization None Present -Tunneling No -Undermining/Tunneling Yes -Undermining/Tunneling Starts (O' 12 clock) -Undermining/Tunneling Ends (O'clock) 4 -Maximum Distance (cm) 3.1 -Circular Undermining No -Exudate Amt Large -Exudate Type Serosanguineous -Wound Margin Thickened & Rolled Under -Granulation Amt Large (67-100%) -Granulation Quality Red -Slough/Fibrin Yes -Necrosis Amt Small (1-33%) -Necrotic Tissue Type Adherent Slough -Texture (Amirah-wound Skin Appearance) Assessed, Scarring -Moisture (Amirah-wound Skin Appearance Assessed ) -Color (Amirah-wound Skin Appearance) Assessed, Erythema -Temperature (Amirah-wound Skin No Abnormality Appearance) (Pt Warm) -Tenderness on Palpation (Amirah-wound No Skin Appearance) -Ulcer Cleansing SOAP AND WATER -Foul Odor after Cleansing No -Anesthetic Used 4% Lidocaine Solution #13 Sacral -Combined with other wound No -Current Size (cm) - Length 7.7 -Current Size (cm) - Width 5.8 -Current Size (cm) - Depth 1.9 -Total Square Cm 44.66 -Photo Taken No -Epithelialization None Present -Tunneling No -Undermining/Tunneling Yes -Undermining/Tunneling Starts (O' 10 clock) -Undermining/Tunneling Ends (O'clock) 4 -Maximum Distance (cm) 3.1 -Circular Undermining No -Classification - Thickness Full Thickness with Exposed Support Structure -Exudate Amt Large -Exudate Type Serosanguineous -Wound Margin Distinct, Outline Attached -Granulation Amt Large (67-100%) -Granulation Quality Red -Slough/Fibrin Yes -Necrosis Amt Small (1-33%) -Necrotic Tissue Type Adherent Slough -Texture (Amirah-wound Skin Appearance) Assessed, Scarring -Moisture (Amirah-wound Skin Appearance Assessed ) -Color (Amirah-wound Skin Appearance) Erythema -Temperature (Amirah-wound Skin No Abnormality Appearance) (Pt Warm) -Tenderness on Palpation (Amirah-wound No Skin Appearance) -Ulcer Cleansing SOAP AND WATER -Foul Odor after Cleansing No -Anesthetic Used 4% Lidocaine Solution #12 L Buttocks -Combined with other wound No -Current Size (cm) - Length 4.8 -Current Size (cm) - Width 2.5 -Current Size (cm) - Depth 1.1 -Total Square Cm 12.00 -Photo Taken No -Epithelialization None Present -Tunneling No -Undermining/Tunneling No -Circular Undermining No -Exudate Amt Large -Exudate Type Serosanguineous -Wound Margin Thickened & Rolled Under -Granulation Amt Large (67-100%) -Granulation Quality Red -Slough/Fibrin Yes -Necrosis Amt Small (1-33%) -Necrotic Tissue Type Adherent Slough -Texture (Amirah-wound Skin Appearance) Assessed, Scarring -Moisture (Amirah-wound Skin Appearance Assessed ) -Color (Amirah-wound Skin Appearance) Assessed, Erythema -Temperature (Amirah-wound Skin No Abnormality Appearance) (Pt Warm) -Tenderness on Palpation (Amirah-wound No Skin Appearance) -Ulcer Cleansing SOAP AND WATER -Foul Odor after Cleansing No -Anesthetic Used 4% Lidocaine Solution WC - Nurse 2 - General Ulcer CM Notes Start: 11/26/18 14:12 Freq: Status: Active Protocol: Activity Type Activity Date Activity User E-Sign Co-Sign Detail Recorded Client Recorded Date Recorded By Document 12/17/18 14:58 MW [id number] 12/17/18 15:21 MW 12/17/18 14:58 Wound Center Nurse 2 [Procedure/Treatment] #15 Lateral Rt Foot -Time 15:05 -Correct Patient Yes -Correct Side, Site, Position Yes -Correct Procedure Yes -Procedure Performed Yes -Type of Procedure Debridement -Clinical Debridement Subcutaneous -Post Debridement Size (cm) - Length 1.8 -Post Debridement Size (cm) - Width 1.8 -Post Debridement Size (cm) - Depth 0.3 -Total Square Cm 3.24 -Wound/Ulcer Outcome Not Healed -Ulcer Cleansing Rinsed/ Irrigated with Saline -Foul Odor after Cleansing No -Bioengineered Tissue Yes -Type of bioengineered Tissue EPIFIX -Expiration Date 03/20/23 -Product Lot Number [id number] -Percent Used 100 -Saline Lot Number [id number] -Bleeding Controlled with Pressure -Offloading No -Treatment Response Procedure Tolerated Well #14 R Buttocks -Time 15:06 -Correct Patient Yes -Correct Side, Site, Position Yes -Correct Procedure Yes -Procedure Performed Yes -Type of Procedure Debridement -Clinical Debridement Subcutaneous -Post Debridement Size (cm) - Length 5.7 -Post Debridement Size (cm) - Width 4.2 -Post Debridement Size (cm) - Depth 3.5 -Total Square Cm 23.94 -Wound/Ulcer Outcome Not Healed -Ulcer Cleansing Rinsed/ Irrigated with Saline -Foul Odor after Cleansing No -Bioengineered Tissue No -Bleeding Controlled with Pressure -Other UNDERMINING 12 TO 3, 3.5CM -Offloading No -Treatment Response Procedure Tolerated Well #13 Sacral -Time 15:07 -Correct Patient Yes -Correct Side, Site, Position Yes -Correct Procedure Yes -Procedure Performed Yes -Type of Procedure Debridement -Clinical Debridement Subcutaneous -Post Debridement Size (cm) - Length 6.8 -Post Debridement Size (cm) - Width 6.7 -Post Debridement Size (cm) - Depth 0.8 -Total Square Cm 45.56 -Wound/Ulcer Outcome Not Healed -Ulcer Cleansing Rinsed/ Irrigated with Saline -Foul Odor after Cleansing No -Bioengineered Tissue No -Bleeding Controlled with Pressure -Other UNDERMINING 12 TO 3, 3.0CM -Offloading No -Treatment Response Procedure Tolerated Well #12 L Buttocks -Time 15:07 -Correct Patient Yes -Correct Side, Site, Position Yes -Correct Procedure Yes -Procedure Performed Yes -Type of Procedure Debridement -Clinical Debridement Subcutaneous -Post Debridement Size (cm) - Length 4.5 -Post Debridement Size (cm) - Width 2.7 -Post Debridement Size (cm) - Depth 1.8 -Total Square Cm 12.15 -Wound/Ulcer Outcome Not Healed -Ulcer Cleansing Rinsed/ Irrigated with Saline -Foul Odor after Cleansing No -Bioengineered Tissue No -Bleeding Controlled with Pressure -Offloading No -Treatment Response Procedure Tolerated Well [See Physician Procedure note for Specifics] Pain Scale: 0-10 Numeric [Pain] -Is Patient Pain Free? Yes Psych/Mental Status: Normal Affect, Appropriate Debridement Note Post-Debridement Measurements/Treatment WC - Nurse 2 - General Ulcer CM Notes Start: 11/26/18 14:12 Freq: Status: Active Protocol: Activity Type Activity Date Activity User E-Sign Co-Sign Detail Recorded Client Recorded Date Recorded By Document 11/26/18 15:21 DV [id number] 11/26/18 15:44 DV Document 12/10/18 14:56 MW [id number] 12/10/18 15:33 MW Document 08/30/19 14:58 MW [id number] 12/17/18 15:21 MW 11/26/18 12/10/18 12/17/18 15:21 14:56 14:58 Wound Center Nurse 2 #15 Lateral Rt Foot -Time 15:30 14:57 15:05 -Correct Patient Yes Yes Yes -Correct Side, Site, Position Yes Yes Yes -Correct Procedure Yes Yes Yes -Procedure Performed Yes Yes Yes -Type of Procedure Debridement Debridement Debridement -Clinical Debridement Bone Subcutaneous Subcutaneous -Post Debridement Size (cm) - Length 2 2.0 1.8 -Post Debridement Size (cm) - Width 1.8 1.5 1.8 -Post Debridement Size (cm) - Depth 0.2 0.7 0.3 -Total Square Cm 3.6 3.00 3.24 -Wound/Ulcer Outcome Not Healed Not Healed Not Healed -Ulcer Cleansing Rinsed/ Rinsed/ Rinsed/ Irrigated with Irrigated with Irrigated with Saline Saline Saline -Foul Odor after Cleansing No No No -Bioengineered Tissue Yes Yes -Type of bioengineered Tissue EPIFIX EPIFIX -Expiration Date 04/20/23 03/20/23 -Product Lot Number [id number] -Percent Used 100 100 -Saline Lot Number [id number] -Bleeding Controlled with NA Pressure Pressure -Offloading Yes No No -Type of Offloading Wedge Shoe -Treatment Response Procedure Procedure Tolerated Well Tolerated Well #14 R Buttocks -Time 15:31 15:00 15:06 -Correct Patient Yes Yes Yes -Correct Side, Site, Position Yes Yes Yes -Correct Procedure Yes Yes Yes -Procedure Performed Yes Yes Yes -Type of Procedure Debridement Debridement -Clinical Debridement Subcutaneous Subcutaneous Subcutaneous -Post Debridement Size (cm) - Length 5.4 5.6 5.7 -Post Debridement Size (cm) - Width 5.1 4.7 4.2 -Post Debridement Size (cm) - Depth 2.1 2.8 3.5 -Total Square Cm 27.54 26.32 23.94 -Wound/Ulcer Outcome Not Healed Not Healed Not Healed -Ulcer Cleansing Rinsed/ Rinsed/ Rinsed/ Irrigated with Irrigated with Irrigated with Saline Saline Saline -Foul Odor after Cleansing No No -Bioengineered Tissue No No -Bleeding Controlled with Pressure Pressure Pressure -Other UNDERMINING 12- UNDERMINING 12 3, 2.0 TO 3, 3.5CM -Offloading No No No -Treatment Response Procedure Procedure Procedure Tolerated Well Tolerated Well Tolerated Well #13 Sacral -Time 15:30 15:00 15:07 -Correct Patient Yes Yes Yes -Correct Side, Site, Position Yes Yes Yes -Correct Procedure Yes Yes Yes -Procedure Performed Yes Yes Yes -Type of Procedure Debridement Debridement Debridement -Clinical Debridement Subcutaneous Subcutaneous Subcutaneous -Post Debridement Size (cm) - Length 7.8 7.8 6.8 -Post Debridement Size (cm) - Width 7.9 6.5 6.7 -Post Debridement Size (cm) - Depth 0.5 1.4 0.8 -Total Square Cm 61.62 50.70 45.56 -Wound/Ulcer Outcome Not Healed Not Healed Not Healed -Ulcer Cleansing Rinsed/ Rinsed/ Rinsed/ Irrigated with Irrigated with Irrigated with Saline Saline Saline -Foul Odor after Cleansing No No No -Bioengineered Tissue No No No -Bleeding Controlled with Pressure Pressure Pressure -Other UNDERMINING 12- UNDERMINING 12 1, 1.9CM TO 3, 3.0CM -Offloading No No No -Treatment Response Procedure Procedure Procedure Tolerated Well Tolerated Well Tolerated Well #12 L Buttocks -Time 15:29 15:00 15:07 -Correct Patient Yes Yes Yes -Correct Side, Site, Position Yes Yes Yes -Correct Procedure Yes Yes Yes -Procedure Performed Yes Yes Yes -Type of Procedure Debridement Debridement Debridement -Clinical Debridement Subcutaneous Subcutaneous Subcutaneous -Post Debridement Size (cm) - Length 4.5 4.4 4.5 -Post Debridement Size (cm) - Width 4.5 4.0 2.7 -Post Debridement Size (cm) - Depth 2.5 1.7 1.8 -Total Square Cm 20.25 17.60 12.15 -Wound/Ulcer Outcome Not Healed Not Healed Not Healed -Ulcer Cleansing Rinsed/ Rinsed/ Rinsed/ Irrigated with Irrigated with Irrigated with Saline Saline Saline -Foul Odor after Cleansing No No No -Bioengineered Tissue No No No -Bleeding Controlled with Pressure Pressure Pressure -Offloading No No No -Treatment Response Procedure Procedure Procedure Tolerated Well Tolerated Well Tolerated Well Pain Scale: 0-10 Numeric Is Patient Pain Free? Yes Yes Yes ,/ Wound debrided: lateral right foot Laterality: Right Wound Grade/Stage: Grade 4 Type of Debridement: Excisional debridement Anesthesia Used: 4% Lidocaine Solution, 5% Lidocaine Gel Depth: Down to and including healthy tissue, in the subcutaneous layer Percentage of wound debrided: 100 Instrument Used: 7mm curette Tissue Removed: yellow slough, devitalized tissue Severity: Necrosis of Muscle Amount of bleeding with debridement: Mild Bleeding Controlled with: Compression and gauze Patient tolerated procedure well - Additional Wound Wound debrided: right buttocks Laterality: Right Wound Grade/Stage: Stage 4 Type of Debridement: Excisional debridement Anesthesia Used: 4% Lidocaine Solution Depth: Down to and including healthy tissue, in the subcutaneous layer, to muscle Percentage of wound debrided: 100 Instrument Used: 7mm curette Tissue Removed: yellow slough, devitalized tissue Severity: Fat Layer Exposed Amount of bleeding with debridement: Mild Bleeding Controlled with: Compression and gauze Patient tolerated procedure: Patient tolerated procedure well - Additional Wound Wound debrided: sacral Laterality: Not Applicable Wound Grade/Stage: Stage 4 Type of Debridement: Excisional debridement Anesthesia Used: 4% Lidocaine Solution Depth: Down to and including healthy tissue, in the subcutaneous layer, to muscle Percentage of wound debrided: 100 Instrument Used: 7mm curette Tissue Removed: yellow slough, devitalized tissue Severity: Fat Layer Exposed Amount of bleeding with debridement: Mild Bleeding Controlled with: Compression and gauze Patient tolerated procedure: Patient tolerated procedure well - Additional Wound Wound debrided: left buttocks Wound Grade/Stage: Stage 4 Type of Debridement: Excisional debridement Anesthesia Used: 4% Lidocaine Solution Depth: Down to and including healthy tissue, in the subcutaneous layer, to muscle Percentage of wound debrided: 100 Instrument Used: 7mm curette Tissue Removed: yellow slough, devitalized tissue Severity: Fat Layer Exposed Amount of bleeding with debridement: Mild Bleeding Controlled with: Compression and gauze Patient tolerated procedure: Patient tolerated procedure well Assessment/Plan Active Problems (Last Reviewed 07/26/18 @ 15:47 by Alyssa Azevedo PA-C) Diabetic ulcer of right foot with necrosis of muscle (Chronic) lateral aspect at 5th metatarsal Stage IV pressure ulcer of sacral region (Chronic) Right ischial pressure sore, stage 4 (Chronic) Diabetes mellitus (Chronic) Pressure sore of left ischium, stage 4 (Chronic) Spinal stenosis (Chronic) Assessment: 1. Stage IV pressure ulcer of sacral region. 2. Right ischial pressure sore, stage 4. 3. Pressure sore of left ischium, stage 4. 4. Chronic osteomyelitis of left pelvic region. 5. Diabetes mellitus. 6. DFU right lateral foot Grade 2 Plan: Patient was evaluated at the wound center today. A subcutaneous debridement was performed today on her right lateral foot, buttocks and sacral ulcers. The patient tolerated the procedure well. Epifix #1 was applied to her right lateral foot ulcer per robotics application engineer guidelines and rehydrated with collagen hydrogel and covered with Adaptic touch. 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 The patients wound care will consist of Dakins to bilateral ischial ulcers and to her sacral ulcer and for heavy drainage. She has been drinking Sigifredo daily. She is currently in [facility]. She is on a palliative treatment program as she does not desire to do any aggressive treatments and is not a candidate at this time for surgical closure of her wounds. She will follow up in 1 week.
--- NOTE | 2018-12-17 19:22 | PCM.WC.PN ---
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 Status: Chronic Current Visit: Yes Qualifiers: Diabetic foot ulcer location: other Diabetes mellitus type: type 2 Qualified Code(s): E11.621 - Type 2 diabetes mellitus with foot ulcer; L97.513 - Non-pressure chronic ulcer of other part of right foot with necrosis of muscle Code(s): E11.621 - Type 2 diabetes mellitus with foot ulcer; L97.513 - Non-pressure chronic ulcer of other part of right foot with necrosis of muscle Comment: lateral aspect at 5th metatarsal (2) Stage IV pressure ulcer of sacral region Status: Chronic Current Visit: Yes Code(s): L89.154 - Pressure ulcer of sacral region, stage 4 (3) Right ischial pressure sore, stage 4 Status: Chronic Current Visit: Yes Code(s): L89.314 - Pressure ulcer of right buttock, stage 4 (4) Diabetes mellitus Status: Chronic Current Visit: Yes Qualifiers: Diabetes mellitus type: type 2 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 insulin use: unspecified middle or intermediate school principal insulin use status Diabetes mellitus complication status: with skin complications Diabetes mellitus complication detail: with foot ulcer Qualified Code(s): E11.621 - Type 2 diabetes mellitus with foot ulcer; L97.509 - Non-pressure chronic ulcer of other part of unspecified foot with unspecified severity Code(s): E11.9 - Type 2 diabetes mellitus without complications (5) Pressure sore of left ischium, stage 4 Status: Chronic Current Visit: Yes Code(s): L89.324 - Pressure ulcer of left buttock, stage 4 (6) Spinal stenosis Status: Chronic Current Visit: Yes Qualifiers: Spinal region: lumbar Code(s): M48.00 - Spinal stenosis, site unspecified Type of Wound Date of Service: 12/17/18 Chief Complaint: Left ischial pressure ulcer, Stage IV. Right ischial pressure ulcer, stage IV. Sacral ulcer, Stage IV. Alvarado grade 4 ulcer of right lateral 5th metatarsal History of Wound: Patient is a 68-year-old female who has a chronic pressure ulcers of right and left ischium and sacral ulcer. She has a history of spinal stenosis and DM. She was admitted on 06/16/18 for sepsis. On 06/17/18 she went the OR for excision infected necrotic sacral pressure sore, Stage IV, with partial ostectomy for osteomyelitis, and excision left ischial pressure sore, Stage IV, with partical ostectomy for osteomyelitis and excision right ischial pressure sore, Stage IV , with partical ostectomy for osteomyelitis by Dr. Myles. At that same time, Dr. Garza performed right septic bursitis of elbow and right wrist abscess. Cultures from 06/17/18: Sacral wound cultures were positive for Proteus mirabilis, Streptococcus mitis/oralis, Vancomycin Resist. E. faecalis, MRSA, Enterococcus raffinosus, Acinetobacter baumannii. Sacral Bone cultures showed VRE, MRSA, Proteus mirabilis, Actinomyces odontolyticus, Enterococcus raffinosus. Right ischial tissue grew MRSA, Proteus mirabilis, VRE, Streptococcus constellatus con. Right Ischial Bone culture grew: MRSA, Streptococcus mitis/oralis, Entercoccus raffinosus. Left ischial tissue grew: Vacomycin resist. E. faecalis, Streptococcus pseudoporcinus, MRSA and Streptococcus group F. Left ischial bone culture: MRSA, Staphylococcus epidermidis, and Presumptive C albicans. Patient completed antibiotic treatment with Vancomycin, Zosyn and PO Bactrim. She was on Amoxicillin 500 mg TID since admission on 08/14/18. She has a roach and a colostomy. She is now at [facility] [place] for care home and rehab. Wound care: Dakins, gauze packed in the ulcers. She is taking Sigifredo. She states she has been eating well and denies any fever, chills, nausea or vomiting. Denies increased drainage or pain of ulcers. In September 2018, she developed an area to her right lateral 5th metatarsal that was callused and then had eschar and was being treated at the SNF that she is at and on October 22, 2018, she was advised to make us aware of the ulcer because it had gotten worse. The eschar fell off and it was draining some and tendon was exposed. Progress of Wound: Althea is here today to follow up on chronic pressure ulcers of her buttocks and sacrum and an ulcer of the right lateral foot today. She tolerated application of Epifix #1. Her other ulcers are stable. Bone biopsy was negative for osteomyelitis. Xray was suspicious for osteomyelitis but given biopsy was negative and clinically ulcer is improving it is unlikely osteomyelitis. She wears foam booties at the senior living so there should not be pressure to the area. She denies and fever or chills. - Physical Exam Vital Signs Temp Pulse Resp BP 96.2 F L 95 16 99/54 L 12/17/18 14:23 12/17/18 14:23 12/17/18 14:23 12/17/18 14:23 General: Alert, Oriented x3, Cooperative, No apparent distress HEENT: Atraumatic, Normocephalic Oral: Moist Mucosa Extremities: No edema Skin: Ulcer/ Wound Wound Measurements and Assessment WC - Nurse 1 - General Ulcer Measurement Start: 11/26/18 14:12 Freq: Status: Active Protocol: Activity Type Activity Date Activity User E-Sign Co-Sign Detail Recorded Client Recorded Date Recorded By Document 12/17/18 14:23 [facility] [id number] 12/17/18 14:49 [facility] 12/17/18 14:23 Wound Center Nurse 1 [Ulcer Assessment] #15 Lateral Rt Foot -Combined with other wound No -Current Size (cm) - Length 2 -Current Size (cm) - Width 1.5 -Current Size (cm) - Depth 0.3 -Total Square Cm 3.0 -Photo Taken No -Epithelialization None Present -Tunneling No -Undermining/Tunneling No -Circular Undermining No -Classification - Thickness Full Thickness with Exposed Support Structure -Exudate Amt Large -Exudate Type Sanguineous -Wound Margin Distinct, Outline Attached -Granulation Amt Large (67-100%) -Granulation Quality Red -Slough/Fibrin Yes -Necrosis Amt Small (1-33%) -Necrotic Tissue Type Adherent Slough -Structure Exposed Bone -Texture (Amirah-wound Skin Appearance) Assessed, Localized Edema -Moisture (Amirah-wound Skin Appearance Assessed ) -Color (Amirah-wound Skin Appearance) Assessed, Erythema -Temperature (Amirah-wound Skin No Abnormality Appearance) (Pt Warm) -Tenderness on Palpation (Amirah-wound No Skin Appearance) -Ulcer Cleansing SOAP AND WATER -Foul Odor after Cleansing No -Anesthetic Used 4% Lidocaine Solution #14 R Buttocks -Combined with other wound No -Current Size (cm) - Length 4.7 -Current Size (cm) - Width 3.2 -Current Size (cm) - Depth 2.6 -Total Square Cm 15.04 -Photo Taken No -Epithelialization None Present -Tunneling No -Undermining/Tunneling Yes -Undermining/Tunneling Starts (O' 12 clock) -Undermining/Tunneling Ends (O'clock) 4 -Maximum Distance (cm) 3.1 -Circular Undermining No -Exudate Amt Large -Exudate Type Serosanguineous -Wound Margin Thickened & Rolled Under -Granulation Amt Large (67-100%) -Granulation Quality Red -Slough/Fibrin Yes -Necrosis Amt Small (1-33%) -Necrotic Tissue Type Adherent Slough -Texture (Amirah-wound Skin Appearance) Assessed, Scarring -Moisture (Amirah-wound Skin Appearance Assessed ) -Color (Amirah-wound Skin Appearance) Assessed, Erythema -Temperature (Amirah-wound Skin No Abnormality Appearance) (Pt Warm) -Tenderness on Palpation (Amirah-wound No Skin Appearance) -Ulcer Cleansing SOAP AND WATER -Foul Odor after Cleansing No -Anesthetic Used 4% Lidocaine Solution #13 Sacral -Combined with other wound No -Current Size (cm) - Length 7.7 -Current Size (cm) - Width 5.8 -Current Size (cm) - Depth 1.9 -Total Square Cm 44.66 -Photo Taken No -Epithelialization None Present -Tunneling No -Undermining/Tunneling Yes -Undermining/Tunneling Starts (O' 10 clock) -Undermining/Tunneling Ends (O'clock) 4 -Maximum Distance (cm) 3.1 -Circular Undermining No -Classification - Thickness Full Thickness with Exposed Support Structure -Exudate Amt Large -Exudate Type Serosanguineous -Wound Margin Distinct, Outline Attached -Granulation Amt Large (67-100%) -Granulation Quality Red -Slough/Fibrin Yes -Necrosis Amt Small (1-33%) -Necrotic Tissue Type Adherent Slough -Texture (Amirah-wound Skin Appearance) Assessed, Scarring -Moisture (Amirah-wound Skin Appearance Assessed ) -Color (Amirah-wound Skin Appearance) Erythema -Temperature (Amirah-wound Skin No Abnormality Appearance) (Pt Warm) -Tenderness on Palpation (Amirah-wound No Skin Appearance) -Ulcer Cleansing SOAP AND WATER -Foul Odor after Cleansing No -Anesthetic Used 4% Lidocaine Solution #12 L Buttocks -Combined with other wound No -Current Size (cm) - Length 4.8 -Current Size (cm) - Width 2.5 -Current Size (cm) - Depth 1.1 -Total Square Cm 12.00 -Photo Taken No -Epithelialization None Present -Tunneling No -Undermining/Tunneling No -Circular Undermining No -Exudate Amt Large -Exudate Type Serosanguineous -Wound Margin Thickened & Rolled Under -Granulation Amt Large (67-100%) -Granulation Quality Red -Slough/Fibrin Yes -Necrosis Amt Small (1-33%) -Necrotic Tissue Type Adherent Slough -Texture (Amirah-wound Skin Appearance) Assessed, Scarring -Moisture (Amirah-wound Skin Appearance Assessed ) -Color (Amirah-wound Skin Appearance) Assessed, Erythema -Temperature (Amirah-wound Skin No Abnormality Appearance) (Pt Warm) -Tenderness on Palpation (Amirah-wound No Skin Appearance) -Ulcer Cleansing SOAP AND WATER -Foul Odor after Cleansing No -Anesthetic Used 4% Lidocaine Solution WC - Nurse 2 - General Ulcer CM Notes Start: 11/26/18 14:12 Freq: Status: Active Protocol: Activity Type Activity Date Activity User E-Sign Co-Sign Detail Recorded Client Recorded Date Recorded By Document 12/17/18 14:58 MW [id number] 12/17/18 15:21 MW 12/17/18 14:58 Wound Center Nurse 2 [Procedure/Treatment] #15 Lateral Rt Foot -Time 15:05 -Correct Patient Yes -Correct Side, Site, Position Yes -Correct Procedure Yes -Procedure Performed Yes -Type of Procedure Debridement -Clinical Debridement Subcutaneous -Post Debridement Size (cm) - Length 1.8 -Post Debridement Size (cm) - Width 1.8 -Post Debridement Size (cm) - Depth 0.3 -Total Square Cm 3.24 -Wound/Ulcer Outcome Not Healed -Ulcer Cleansing Rinsed/ Irrigated with Saline -Foul Odor after Cleansing No -Bioengineered Tissue Yes -Type of bioengineered Tissue EPIFIX -Expiration Date 03/20/23 -Product Lot Number [id number] -Percent Used 100 -Saline Lot Number [id number] -Bleeding Controlled with Pressure -Offloading No -Treatment Response Procedure Tolerated Well #14 R Buttocks -Time 15:06 -Correct Patient Yes -Correct Side, Site, Position Yes -Correct Procedure Yes -Procedure Performed Yes -Type of Procedure Debridement -Clinical Debridement Subcutaneous -Post Debridement Size (cm) - Length 5.7 -Post Debridement Size (cm) - Width 4.2 -Post Debridement Size (cm) - Depth 3.5 -Total Square Cm 23.94 -Wound/Ulcer Outcome Not Healed -Ulcer Cleansing Rinsed/ Irrigated with Saline -Foul Odor after Cleansing No -Bioengineered Tissue No -Bleeding Controlled with Pressure -Other UNDERMINING 12 TO 3, 3.5CM -Offloading No -Treatment Response Procedure Tolerated Well #13 Sacral -Time 15:07 -Correct Patient Yes -Correct Side, Site, Position Yes -Correct Procedure Yes -Procedure Performed Yes -Type of Procedure Debridement -Clinical Debridement Subcutaneous -Post Debridement Size (cm) - Length 6.8 -Post Debridement Size (cm) - Width 6.7 -Post Debridement Size (cm) - Depth 0.8 -Total Square Cm 45.56 -Wound/Ulcer Outcome Not Healed -Ulcer Cleansing Rinsed/ Irrigated with Saline -Foul Odor after Cleansing No -Bioengineered Tissue No -Bleeding Controlled with Pressure -Other UNDERMINING 12 TO 3, 3.0CM -Offloading No -Treatment Response Procedure Tolerated Well #12 L Buttocks -Time 15:07 -Correct Patient Yes -Correct Side, Site, Position Yes -Correct Procedure Yes -Procedure Performed Yes -Type of Procedure Debridement -Clinical Debridement Subcutaneous -Post Debridement Size (cm) - Length 4.5 -Post Debridement Size (cm) - Width 2.7 -Post Debridement Size (cm) - Depth 1.8 -Total Square Cm 12.15 -Wound/Ulcer Outcome Not Healed -Ulcer Cleansing Rinsed/ Irrigated with Saline -Foul Odor after Cleansing No -Bioengineered Tissue No -Bleeding Controlled with Pressure -Offloading No -Treatment Response Procedure Tolerated Well [See Physician Procedure note for Specifics] Pain Scale: 0-10 Numeric [Pain] -Is Patient Pain Free? Yes Psych/Mental Status: Normal Affect, Appropriate Debridement Note Post-Debridement Measurements/Treatment WC - Nurse 2 - General Ulcer CM Notes Start: 11/26/18 14:12 Freq: Status: Active Protocol: Activity Type Activity Date Activity User E-Sign Co-Sign Detail Recorded Client Recorded Date Recorded By Document 11/26/18 15:21 DV [id number] 11/26/18 15:44 DV Document 12/10/18 14:56 MW [id number] 12/10/18 15:33 MW Document 12/17/18 14:58 MW [id number] 12/17/18 15:21 MW 11/26/18 12/10/18 12/17/18 15:21 14:56 14:58 Wound Center Nurse 2 #15 Lateral Rt Foot -Time 15:30 14:57 15:05 -Correct Patient Yes Yes Yes -Correct Side, Site, Position Yes Yes Yes -Correct Procedure Yes Yes Yes -Procedure Performed Yes Yes Yes -Type of Procedure Debridement Debridement Debridement -Clinical Debridement Bone Subcutaneous Subcutaneous -Post Debridement Size (cm) - Length 2 2.0 1.8 -Post Debridement Size (cm) - Width 1.8 1.5 1.8 -Post Debridement Size (cm) - Depth 0.2 0.7 0.3 -Total Square Cm 3.6 3.00 3.24 -Wound/Ulcer Outcome Not Healed Not Healed Not Healed -Ulcer Cleansing Rinsed/ Rinsed/ Rinsed/ Irrigated with Irrigated with Irrigated with Saline Saline Saline -Foul Odor after Cleansing No No No -Bioengineered Tissue Yes Yes -Type of bioengineered Tissue EPIFIX EPIFIX -Expiration Date 04/20/23 03/20/23 -Product Lot Number [id number] -Percent Used 100 100 -Saline Lot Number [id number] -Bleeding Controlled with NA Pressure Pressure -Offloading Yes No No -Type of Offloading Wedge Shoe -Treatment Response Procedure Procedure Tolerated Well Tolerated Well #14 R Buttocks -Time 15:31 15:00 15:06 -Correct Patient Yes Yes Yes -Correct Side, Site, Position Yes Yes Yes -Correct Procedure Yes Yes Yes -Procedure Performed Yes Yes Yes -Type of Procedure Debridement Debridement -Clinical Debridement Subcutaneous Subcutaneous Subcutaneous -Post Debridement Size (cm) - Length 5.4 5.6 5.7 -Post Debridement Size (cm) - Width 5.1 4.7 4.2 -Post Debridement Size (cm) - Depth 2.1 2.8 3.5 -Total Square Cm 27.54 26.32 23.94 -Wound/Ulcer Outcome Not Healed Not Healed Not Healed -Ulcer Cleansing Rinsed/ Rinsed/ Rinsed/ Irrigated with Irrigated with Irrigated with Saline Saline Saline -Foul Odor after Cleansing No No -Bioengineered Tissue No No -Bleeding Controlled with Pressure Pressure Pressure -Other UNDERMINING 12- UNDERMINING 12 3, 2.0 TO 3, 3.5CM -Offloading No No No -Treatment Response Procedure Procedure Procedure Tolerated Well Tolerated Well Tolerated Well #13 Sacral -Time 15:30 15:00 15:07 -Correct Patient Yes Yes Yes -Correct Side, Site, Position Yes Yes Yes -Correct Procedure Yes Yes Yes -Procedure Performed Yes Yes Yes -Type of Procedure Debridement Debridement Debridement -Clinical Debridement Subcutaneous Subcutaneous Subcutaneous -Post Debridement Size (cm) - Length 7.8 7.8 6.8 -Post Debridement Size (cm) - Width 7.9 6.5 6.7 -Post Debridement Size (cm) - Depth 0.5 1.4 0.8 -Total Square Cm 61.62 50.70 45.56 -Wound/Ulcer Outcome Not Healed Not Healed Not Healed -Ulcer Cleansing Rinsed/ Rinsed/ Rinsed/ Irrigated with Irrigated with Irrigated with Saline Saline Saline -Foul Odor after Cleansing No No No -Bioengineered Tissue No No No -Bleeding Controlled with Pressure Pressure Pressure -Other UNDERMINING 12- UNDERMINING 12 1, 1.9CM TO 3, 3.0CM -Offloading No No No -Treatment Response Procedure Procedure Procedure Tolerated Well Tolerated Well Tolerated Well #12 L Buttocks -Time 15:29 15:00 15:07 -Correct Patient Yes Yes Yes -Correct Side, Site, Position Yes Yes Yes -Correct Procedure Yes Yes Yes -Procedure Performed Yes Yes Yes -Type of Procedure Debridement Debridement Debridement -Clinical Debridement Subcutaneous Subcutaneous Subcutaneous -Post Debridement Size (cm) - Length 4.5 4.4 4.5 -Post Debridement Size (cm) - Width 4.5 4.0 2.7 -Post Debridement Size (cm) - Depth 2.5 1.7 1.8 -Total Square Cm 20.25 17.60 12.15 -Wound/Ulcer Outcome Not Healed Not Healed Not Healed -Ulcer Cleansing Rinsed/ Rinsed/ Rinsed/ Irrigated with Irrigated with Irrigated with Saline Saline Saline -Foul Odor after Cleansing No No No -Bioengineered Tissue No No No -Bleeding Controlled with Pressure Pressure Pressure -Offloading No No No -Treatment Response Procedure Procedure Procedure Tolerated Well Tolerated Well Tolerated Well Pain Scale: 0-10 Numeric Is Patient Pain Free? Yes Yes Yes Wound debrided: lateral right foot Laterality: Right Wound Grade/Stage: Alvarado grade 4 Type of Debridement: Excisional debridement Anesthesia Used: 4% Lidocaine Solution Depth: Down to and including healthy tissue, in the subcutaneous layer, to muscle Percentage of wound debrided: 100 Instrument Used: 7mm curette Tissue Removed: yellow slough, devitalized tissue Severity: Fat Layer Exposed Amount of bleeding with debridement: Mild Bleeding Controlled with: Compression and gauze Patient tolerated procedure well - Additional Wound Wound debrided: right buttocks Laterality: Right Wound Grade/Stage: Stage 4 Type of Debridement: Excisional debridement Anesthesia Used: 4% Lidocaine Solution, 5% Lidocaine Gel Depth: Down to and including healthy tissue, in the subcutaneous layer, to muscle Percentage of wound debrided: 100 Instrument Used: 7mm curette Tissue Removed: yellow slough, devitalized tissue Severity: Fat Layer Exposed Amount of bleeding with debridement: Mild Bleeding Controlled with: Compression and gauze Patient tolerated procedure: Patient tolerated procedure well - Additional Wound Wound debrided: sacral Wound Grade/Stage: Stage 4 Type of Debridement: Excisional debridement Anesthesia Used: 4% Lidocaine Solution Depth: Down to and including healthy tissue, in the subcutaneous layer, to muscle Percentage of wound debrided: 100 Instrument Used: 7mm curette Tissue Removed: yellow slough, devitalized tissue Severity: Fat Layer Exposed Amount of bleeding with debridement: Mild Bleeding Controlled with: Compression and gauze Patient tolerated procedure: Patient tolerated procedure well - Additional Wound Wound debrided: left buttocks Laterality: Left Wound Grade/Stage: Stage 4 Type of Debridement: Excisional debridement Anesthesia Used: 4% Lidocaine Solution Depth: Down to and including healthy tissue, in the subcutaneous layer, to muscle Percentage of wound debrided: 100 Tissue Removed: yellow slough, devitalized tissue Severity: Fat Layer Exposed Amount of bleeding with debridement: Mild Bleeding Controlled with: Compression and gauze Patient tolerated procedure: Patient tolerated procedure well Assessment/Plan Active Problems (Last Reviewed 07/26/18 @ 15:47 by Alyssa Azevedo PA-C) Diabetic ulcer of right foot with necrosis of muscle (Chronic) lateral aspect at 5th metatarsal Stage IV pressure ulcer of sacral region (Chronic) Right ischial pressure sore, stage 4 (Chronic) Diabetes mellitus (Chronic) Pressure sore of left ischium, stage 4 (Chronic) Spinal stenosis (Chronic) Assessment: 1. Stage IV pressure ulcer of sacral region. 2. Right ischial pressure sore, stage 4. 3. Pressure sore of left ischium, stage 4. 4. Chronic osteomyelitis of left pelvic region. 5. Diabetes mellitus. 6. DFU right lateral foot Grade 2 Plan: Patient was evaluated at the wound center today. A subcutaneous debridement was performed today on her right lateral foot, buttocks and sacral ulcers. The patient tolerated the procedure well. Epifix #2 was applied to her right lateral foot ulcer per chlorine operator guidelines and rehydrated with collagen hydrogel and covered with Adaptic touch. 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 The patients wound care will consist of Santyl to base of wound bed followed by Dakins soaked gauze to bilateral ischial ulcers and to her sacral ulcer and for heavy drainage. She has been drinking Sigifredo daily. She is currently in [facility]. She is on a palliative treatment program as she does not desire to do any aggressive treatments and is not a candidate at this time for surgical closure of her wounds. She will follow up in 2 weeks.
== END 2018-12-18 23:59 ==
LOC: WC 14:00
PROVIDERS: Family Provider Family Medicine; PCP Family Medicine; Referring Provider Family Medicine; Visit Provider Family Medicine
DX: E11.622 Type 2 diabetes mellitus with other skin ulcer (principal); E11.621 Type 2 diabetes mellitus with foot ulcer; L89.154 Pressure ulcer of sacral region, stage 4; L89.214 Pressure ulcer of right hip, stage 4; L89.513 Pressure ulcer of right ankle, stage 3; L89.224 Pressure ulcer of left hip, stage 4; M48.061 Spinal stenosis, lumbar region without neurogenic claudication; M86.68 Other chronic osteomyelitis, other site; E11.69 Type 2 diabetes mellitus with other specified complication; Z86.14 Personal history of Methicillin resistant Staphylococcus aureus infection; Z93.3 Colostomy status
CPT/HCPCS: 11042; 11043; 11045; 11046; 15271; 15275; Q4186

== ENCOUNTER 2018-12-26 19:22 | Inpatient (IN) | payer MEDICAID, SELFPAY ==
[2018-12-26] VITALS (8 sets, daily range): BP systolic 80–94; BP diastolic 40–55; PULSE 106–111; RESP 13–18; TEMP 36.6–36.7; O2SAT 96–100; BMI 29.5; BMI 27.5
[2018-12-26] MEDS: 0.9% Normal Saline 1,000 ML 150 ML IV (19:30)
--- NOTE | 2018-12-26 19:45 | EKG12_ITS ---
Test Reason : ABD LABS Blood Pressure : / mmHG Vent. Rate : 110 BPM Atrial Rate : 110 BPM P-R Int : 152 ms QRS Dur : 086 ms QT Int : 342 ms P-R-T Axes : 055 046 042 degrees QTc Int : 462 ms Sinus tachycardia Low voltage QRS Borderline ECG Confirmed by EMY CHANEL, [place] ([id number]), associate entertainment editor SHERYL QUEEN ([id number]) on 12/28/2018 9:31:41 AM Referred By: Jaison Lopez Confirmed By:[place] QUEVEDO MD
--- NOTE | 2018-12-26 20:19 | ED.RN ---
REMOVED CHEEK PT HAD ON ARRIVAL AND PLACED NEW. SEE DOCUMENTATION.
[2018-12-26 20:33] LABS: Mucous, Urine 0 SEEN /hpf (<or=2+)
[2018-12-26 20:35] LABS: Absolute Lymphocyte Count 0.61 X10^3/uL (0.83-4.51); Absolute Neutrophil Count 11.1 X10^3/uL (2.0-7.7); Basophil# 0.02 X10^3/uL; Basophil% 0.2 % (0-1); Eosinophil# 0.23 X10^3/uL; Eosinophils% 1.8 % (0-5); Hematocrit 24.1 % (37-47); Hemoglobin 7.6 g/dL (12.0-15.0); Lymphocyte # 0.61 X10^3/ul (4.0); Lymphocyte % 4.8 % (19-41); Mean Corp Hgb Conc 31.5 g/dL (32-36); Mean Corpuscular Hgb 29.6 pg (27.0-32.0); Mean Corpuscular Volume 93.8 fL (81-99); Mean Platelet Vol. 9.3 fl (6.2-12.0); Monocyte# 0.64 X10^3/uL; NRBC Flagged by Analyzer 0 % (0-5); Neutrophil # 11.11 X10^3/uL (2.7-7.7); Neutrophil % 87.3 % (47-70); Platelet Count 293 K/mm3 (150-450); RBC Distribution Width SD 55.5 fl (35.1-43.9); Red Blood Count 2.57 M/mm3 (4.2-5.4); White Blood Count 12.7 K/mm3 (4.4-11.0)
[2018-12-26 20:35] LABS: Color, Urine Yellow (Yellow); Glucose, Dipstick Normal (Normal); Ketone-Dipstick Negative (Negative); Leukocyte Esterase-Dipstick 500 /ul (Negative); Nitrite-Dipstick Negative (Negative); Occult Blood-Urine 250 /ul (Negative); Protein-Dipstick 100 mg/dl (Negative); Urine Bilirubin Dipstick Negative (Negative); Urine Clarity Sl. Cloudy (Clear); Urine Urobilinogen Normal (Normal)
[2018-12-26 20:41] LABS: White Blood Cells 25-50 SEEN /hpf (0-5)
[2018-12-26 20:42] LABS: Red Blood Cells-Urine 5-10 SEEN /hpf (0-5); Squamous Epithelial Cells - UA 10-25 SEEN /hpf (5-10)
[2018-12-26 20:43] LABS: Bacteria 1+ /hpf (None Seen)
[2018-12-26 20:46] LABS: Anion Gap 18 (5-15); BUN 121 mg/dL (7-18); BUN/Creat Ratio 28.8 RATIO (10-20); Calcium,Total 7.7 mg/dL (8.5-10.1); Chloride 100 mmol/L (98-107); EST Glomerular Filtration Rate 11 mL/min (>60); Est Glom Filt Rate - Afr Amer 14 mL/min (>60); Glucose 90 mg/dL (74-106); Potassium 5.7 mmol/L (3.5-5.1); Sodium Level 129 mmol/L (136-145)
--- NOTE | 2018-12-26 20:46 | ED.RN ---
DR ABDUL NOTIFIED OF BUN RESULTS
--- NOTE | 2018-12-26 20:48 | ED.RN ---
notified Dr. Quintana of BUN 121 '
[2018-12-26 21:01] LABS: Lactic Acid 3.4 mmol/L (0.4-2.0)
--- NOTE | 2018-12-26 21:01 | ED.RN ---
DR ABDUL NOTIFIED OF LACTIC ACID AND K+ RESULTS
--- NOTE | 2018-12-26 21:07 | ED.RN ---
notified Dr. Quintana of lactic 3.4 and K+ 5.7
[2018-12-26] MEDS: 0.9% Normal Saline 1,000 ML 999 ML IV ×2 (21:11→22:10)
--- NOTE | 2018-12-26 21:22 | PCM.HP.STD ---
Problem List (1) Severe sepsis Status: Acute (2) Infected decubitus ulcer Status: Chronic Qualifiers: Pressure injury stage: unspecified pressure injury stage Qualified Code(s): L89.90 - Pressure ulcer of unspecified site, unspecified stage; L08.9 - Local infection of the skin and subcutaneous tissue, unspecified History of Present Illness Date of Admission: 12/26/18 Chief Complaint: hyperkalemia The patient is a 68 year old F senior care resident with a significant history of anemia of chronic disease; chronic osteomyelitis; diabetes mellitus; neuropathy; diabetic ulcer; chronic indwelling catheter who was brought to the emergency department because of hyperkalemia. At the senior care her potassium was 6.7 for which reason she received Kayexalate and Miralax. At the emergency department her potassium was 5.7. Her lactic acid was 3.4. At the ED, the urine in her Roach catheter had sediment in it so her Roach catheter was replaced. Her urinalysis was abnormal. Patient was empirically started on ceftriaxone. Further patient reports lethargy; chills with rigors; malaise and anorexia. Past Medical History Past Medical History (Chronic Problems): Chronic Problems (Last Reviewed 12/27/18 @ 00:22 by Jaison Lopez MD) Diabetic ulcer of right foot with necrosis of muscle (Chronic) lateral aspect at 5th metatarsal Chronic osteomyelitis of left pelvic region (Chronic) Stage IV pressure ulcer of sacral region (Chronic) Right ischial pressure sore, stage 4 (Chronic) Infected decubitus ulcer (Chronic) Open wound of left thigh (Chronic) traumatic skin tear posterior thigh Incompetent urethral closure mechanism (Chronic) Neurogenic bladder (Chronic) Stage II pressure ulcer (Chronic) Chronic suprapubic catheter (Chronic) Diabetes mellitus type 2 in nonobese (Chronic) Hypertension (Chronic) Gout (Chronic) with arthropathy Pressure ulcer of left buttock, stage 3 (Chronic) left lower buttock/upper thigh area Diabetes mellitus (Chronic) Pressure ulcer of right buttock, stage 3 (Chronic) Diabetic neuropathy, type II diabetes mellitus (Chronic) Malnutrition (Chronic) Back pain (Chronic) Arthritis (Chronic) 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 significance to followup Anemia of chronic disease (Chronic) Physical deconditioning (Chronic) Dupuytren's contracture of right hand (Chronic) Spinal stenosis (Chronic) Hyperlipidemia (Chronic) RP (rectal prolapse) (Chronic) Medical History: Medical History (Last Reviewed 12/27/18 @ 00:34 by Jaison Lopez MD) Open wound of left thigh (Chronic) S71.102A traumatic skin tear posterior thigh Incompetent urethral closure mechanism (Chronic) N36.8 Neurogenic bladder (Chronic) N31.9 Stage II pressure ulcer (Chronic) L89.92 Complicated urinary tract infection (Acute) N39.0 Hematuria (Inactive) R31.9 Diabetes mellitus type 2 in nonobese (Chronic) E11.9 Hypertension (Chronic) I10 Gout (Chronic) M10.9 with arthropathy Pressure ulcer of left buttock, stage 3 (Chronic) L89.323 left lower buttock/upper thigh area Pressure ulcer of left buttock, stage 2 (Inactive) L89.322 Diabetes mellitus (Chronic) E11.9 Pressure ulcer of right buttock, stage 3 (Chronic) L89.313 Diabetic neuropathy, type II diabetes mellitus (Chronic) E11.40 Malnutrition (Chronic) E46 Back pain (Chronic) M54.9 Arthritis (Chronic) M19.90 chronic osteomyelitis left ischial area (Chronic) Pressure sore of left ischium, stage 4 (Chronic) L89.324 Lytic bone lesion of right femur (Chronic) M89.8X5 and right humerus ? significance to followup Anemia of chronic disease (Chronic) D63.8 Physical deconditioning (Chronic) R53.81 Dupuytren's contracture of right hand (Chronic) M72.0 Spinal stenosis (Chronic) M48.00 Hyperlipidemia (Chronic) E78.5 RP (rectal prolapse) (Chronic) K62.3 Allergies No Known Allergies Allergy (Verified 08/16/18 13:05) Home Medications: Ambulatory Orders Medication Instructions Recorded Allopurinol [Zyloprim] 200 mg PO DAILY 07/05/14 Multivitamins,Therapeutic 1 tab PO DAILY 07/05/14 [Multivitamin] Timolol Maleate [Timoptic-XE 0.5%] 1 drp EACH EYE DAILY 07/05/14 Ascorbic Acid [Vitamin C] 500 mg PO DAILY@0800 09/09/17 metFORMIN HCl [Glucophage] 1,000 mg PO BID 02/26/18 Gabapentin [Neurontin] 200 mg PO TID 06/16/18 Lactobacillus Acidophilus 1 cap PO DAILY 06/16/18 [Acidophilus] Linagliptin [Tradjenta] 5 mg PO DAILY 06/16/18 Polyethylene Glycol 3350 [Miralax] 17 gm PO DAILY 06/16/18 Insulin Lispro [Humalog KwikPen] See Protocol SC ACHS insuln.pen 06/22/18 Citric AC/Gluconolact/Mag Carb 30 ml IR DAILY 07/20/18 [Renacidin Irrigation Solution] Latanoprost 0.005% [Xalatan 1 drop EACH EYE QHS 07/20/18 Opthalmic] Losartan Potassium [Cozaar] 25 mg PO DAILY 08/11/18 Metoprolol Tartrate [Lopressor 25 mg PO BID 08/11/18 (beta honey)] Multivit,Stress Formula/Zinc 1 tab PO BID 08/11/18 [Stress Formula with Zinc Tab] Oxycodone HCl/Acetaminophen 1 tab PO Q4H PRN PRN #10 tab 08/14/18 [Percocet 5-325 mg Tablet] Oxybutynin Chloride [Oxybutynin 5 mg PO DAILY 12/26/18 Chloride ER] Surgical History: Surgical History (Last Reviewed 12/27/18 @ 00:34 by Jaison Lopez MD) Chronic suprapubic catheter (Chronic) Z93.[address] (Chronic) Z93.3 Previous back surgery Z98.890 Surgical History: - - Surgery for rectal prolapse with anterior resection and rectopexy at [facility] in 2008 and back surgery 1979. Colostomy was November 2012. Excision left ischial pressure sore with partial ostectomy for osteomyelitis and excision right ischial pressure sore and excision left lateral ankle pressure sore with partial ostectomy for osteomyelitis in 08/01. 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 Smoking Status: Never smoker - *Family History Maternal History Items: Diabetes, Hypertension Paternal History Items: Diabetes, Hypertension Review of Systems Constitutional: Reports: Anorexia, Chills, Malaise, Weakness, Fatigue HEENT: Denies: Head Aches, Sinus Congestion, Sinus Drainage Cardiovascular: Denies: Chest Pain, Palpitations Respiratory: Denies: Cough, Shortness of breath at rest, Sputum production Gastrointestinal: Denies: Abdominal Pain, Nausea, Vomiting Genitourinary: Reports: - - chronic indwelling roach Musculoskeletal: Denies: Joint Pain, Joint Tenderness Skin: Reports: Wounds - sacral coccyxgeal deep wound. left ischial deep wound; right ischial deep wound; right lateral foot wound. Neurological: Denies: Numbness, Tingling, Focal weakness Psychiatric: Denies: Anxiety, Depression, Homicidal Ideations, Suicidal Ideations Hematologic/ Lymphatic: Denies: Easy Bruising, Easy Bleeding VTE Information - Inpt Only VTE Present on Admission: No VTE Mechan Device Prophylaxis: SCD's VTE Pharm Prophylaxis ordered?: No Patient Problems: Active and Suspected Problems (Last Reviewed 12/27/18 @ 00:22 by Jaison Lopez MD) Severe sepsis (Acute) - Physical Exam General: Alert, Oriented x3, Cooperative HEENT: Atraumatic, PERRLA, EOMI, Normocephalic Neck: Supple, No JVD, Negative Carotid Bruits Lungs: Clear to auscultation, Normal air movement Cardiovascular: No murmurs, Tachycardic Abdomen: Bowel Sounds Present, Soft, Non Tender, - - indwelling urethra roach catheter in place; colostomy in place. Extremities: No edema, Capillary Refill Less than 3 Seconds Skin: - - sacral coccyxgeal deep wound. left ischial deep wound; right ischial deep wound; right lateral foot wound. Musculoskeletal: No Tenderness to Palpation of Joints or Extremities Neurological: Cranial nerves II-XII grossly intact Psych/Mental Status: Normal Affect, Appropriate Vital Signs Temp Pulse Resp BP Pulse Ox 97.8 F 110 H 13 83/45 L 98 12/26/18 19:23 12/26/18 20:43 12/26/18 20:43 12/26/18 20:43 12/26/18 20:43 Oxygen Delivery Method Room Air Weight: 73.2 kg Body Mass Index (BMI) 29.5 Finger Stick Blood Glucose 154 Intake and Output for Last 24 Hours 12/24/18 12/25/18 12/26/18 23:59 23:59 23:59 Intake Total 245 / 245 Output Total 700 / 700 Balance -455 / -455 Laboratory Tests Past 24 Hrs 12/26/18 12/26/18 12/26/18 20:10 20:10 20:10 WBC 12.7 H RBC 2.57 L Hgb 7.6 L Hct 24.1 L MCV 93.8 MCH 29.6 MCHC 31.5 L RDW Std Deviation 55.5 H RDW Coeff of Kandi 16.0 H Plt Count 293 MPV 9.3 Immature Gran % (Auto) 0.900 Neut % (Auto) 87.3 H Lymph % (Auto) 4.8 L [place] % (Auto) 5.0 Eos % (Auto) 1.8 Baso % (Auto) 0.2 Absolute Neuts (auto) 11.1 H Absolute Lymphs (auto) 0.61 L Nucleated RBC % 0 Sodium 129 L Potassium 5.7 H Chloride 100 Carbon Dioxide 11.0 L Anion Gap 18 H BUN 121 H* Creatinine 4.20 H Estim Creat Clear Calc 10.00 Est GFR (MDRD) Af Amer 14 L Est GFR (MDRD) Non-Af 11 L BUN/Creatinine Ratio 28.8 H Glucose 90 Lactic Acid 3.4 H Calcium 7.7 L Urine Color Urine Clarity Urine pH Ur Specific [place] Urine Protein Urine Glucose (UA) Urine Ketones Urine Occult Blood Urine Nitrite Urine Bilirubin Urine Urobilinogen Ur Leukocyte Esterase Urine RBC Urine WBC Ur Squamous Epith Cells Urine Bacteria Urine Mucus 12/26/18 20:20 WBC RBC Hgb Hct MCV MCH MCHC RDW Std Deviation RDW Coeff of Kandi Plt Count MPV Immature Gran % (Auto) Neut % (Auto) Lymph % (Auto) [place] % (Auto) Eos % (Auto) Baso % (Auto) Absolute Neuts (auto) Absolute Lymphs (auto) Nucleated RBC % Sodium Potassium Chloride Carbon Dioxide Anion Gap BUN Creatinine Estim Creat Clear Calc Est GFR (MDRD) Af Amer Est GFR (MDRD) Non-Af BUN/Creatinine Ratio Glucose Lactic Acid Calcium Urine Color Yellow Urine Clarity Sl. Cloudy Urine pH 6.0 Ur Specific [place] 1.010 Urine Protein 100 H Urine Glucose (UA) Normal Urine Ketones Negative Urine Occult Blood 250 H Urine Nitrite Negative Urine Bilirubin Negative Urine Urobilinogen Normal Ur Leukocyte Esterase 500 H Urine RBC 5-10 SEEN Urine WBC 25-50 SEEN Ur Squamous Epith Cells 10-25 SEEN Urine Bacteria 1+ Urine Mucus 0 SEEN Assessment/Plan All Active Problems (Last Reviewed 12/27/18 @ 00:22 by Jaison Lopez MD) Severe sepsis (Acute) Hyperkalemia (Acute) Acute hyperkalemia (Acute) Acute kidney failure (Acute) Metabolic acidemia (Acute) Anemia (Acute) Severe sepsis (Acute) Complicated urinary tract infection (Acute) The patient is a 68 year old F senior care resident with a significant history of anemia of chronic disease; chronic osteomyelitis; diabetes mellitus; neuropathy; diabetic ulcer; chronic indwelling catheter who was brought to the emergency department because of hyperkalemia; and found to have lactic acidosis; and tachycardia as well as leukocytosis consistent with severe sepsis second to probable complicated UTI. Severe sepsis second to probable complicated UTI in the setting of chronic indwelling catheter Patient with tachycardia with heart rate 108 to 101 Her blood pressure is 80s to 90s. It was reported up patient has chronic low blood pressure. However review of records show that in the past patient has a blood pressure in the 130s. Patient has completed IV bolus of 30 mm's per kilogram per septic shock protocol. Nurse reported systolic blood pressure of more than 75 and was instructed to check blood pressure with manual blood pressure machine. Current systolic pressure is in the 90s and map is more than 65. Patient is mentating appropriately. Noted to have leukocytosis of white count 12.7. Lactic acid 3.4; trend Blood cultures and urine cultures are pending; follow Patient was started on ceftriaxone the emergency department ceftriaxone continued. Patient has chronic osteomyelitis of multiple wounds that do not look acutely infected. We will get ESR and CRP. We will consult infectious disease. In the past patient has seen our infectious disease specialist. Hold home blood pressure medications (metoprolol and losartan) and begin patient on Midodrine. HIMANSHU On presentation her potassium was 5.7. Her BUN was 121. Patient has a history of HIMANSHU and previously saw dietary internship. BUN over creatinine was 28.8 likely prerenal from dehydration; and intrinsic renal from toxic effects of sepsis. Order ultrasound of kidney and bladder. Will get urinary studies. Hold home losartan. Trend BMP. Hyperkalemia On presentation her potassium was 5.7. Reportedly potassium was 6.7 at the senior care and she received Kayexalate and MiraLAX. We will give patient another dose of Kayexalate with MiraLAX. We will give sodium bicarbonate IV and start patient on sodium bicarbonate p.o. Trend BMP. Anion gap metabolic acidosis Patient with bicarbonate of 11 and anion gap of 18. Likely due to uremia and lactic acidosis. Stop metformin at this time. Treat severe sepsis and HIMANSHU. Consult dietary internship. Acute on chronic anemia Her hemoglobin on presentation was 7.6. Review of old records shows chronic anemia with hemoglobin as low as 6.7 in the past. However on 08/14/2018 her hemoglobin was 9.8. Unclear whether she had received blood at that time. Trend CBC We will do iron studies ferritin. No chemical chemoprophylaxis for now. Diabetes mellitus On presentation her blood glucose was 90. Patient has a history of hypoglycemia. Accu-Chek q. before meals at bedtime. Will put on a renal diet no concentrated sweets.. Would hold home metformin and Tradjenta. Will put on correction scale insulin. Multiple decubitus ulcer and diabetic ulcer of right fourth Keep current dressing on right foot wound while we wait for wound care recommendation. Wet-to-dry dressing on decubitus ulcer at coccyx and sacral areas. Wound care consult. Colostomy in place Wound care consult. DVT prophylaxis SCD Code Visit Inpatient E&M: 79104 Init Hosp L3
[2018-12-26] MEDS: Ceftriaxone 1 GM/50 ML BAG IV (21:25)
--- NOTE | 2018-12-26 21:42 | ED.DCSUM_ITS ---
- ER Visit Summary Date of Service: 12/26/18 Chief Complaint: [High potassium] History of Present Illness: The patient is a 68 F [resents to the emergency department complaint of high potassium that started several days ago. Patient is a custodial patient that was noted to have high potassium 2 days ago and she is been given IV fluids as well as Kayexalate at the custodial. Patient complains of increased thirst. She denies any chest pain or shortness of breath. She denies any abdominal pain. Patient has an indwelling Rea catheter and has a colostomy. Patient denies any fevers. She denies any significant cough.] Physical Examination: [HEENT-PERRLA, EOMI. Cranial nerves II through XII grossly intact. TMs clear. No adenopathy. His membranes slightly dry. Cardiovascular-regular tachycardic. No murmurs auscultated. Lungs-clear to auscultation, chest wall stable without crepitus or subcu emphysema Abdomen-normoactive bowel sounds, soft, nontender, no rebound or rigidity, no peritoneal signs. Extremities-intact ?4, normal range of motion, normal pulses, atraumatic. Patient has +2 edema both lower extremities.] Test Results: [EKG obtained arrival shows sinus tachycardia with a ventricular rate of 110 bpm with no evidence for peaked T waves or hyperkalemic changes. CBC with additional attempt 12.7, hemoglobin 7.6, hematocrit 24, platelets 293. Chemistry showed a sodium 129, potassium 5.7, CO2 11, glucose 90, BUN 121, creatinine 4.2. Lactate was 3.4. Urinalysis showed 500 leukocyte esterase and 25-50 WBCs however she also had 1025 epis. Urine culture and blood cultures ordered and pending.] Emergency Department Course and Treatment: [She was started on normal saline and was given 30 cc/kg. I am not convinced patient is septic at this point as she tells me that her blood pressures have been in the 80s to 90s for several weeks and I discussed this with her primary care physician taking care of her Dr. Phani Mackenzie and the also affirmed this. Patient has an indwelling Rea catheter and I suspect there may be some colonization and she will need cultures to further delineate this. Patient has not been febrile. I suspect her symptoms are related to acute kidney failure. Her potassium has improved from 6. 2 yesterday. Her sodium improved from 123 to 129. I did start patient on Rocephin 1 g IV.] Treatment Plan: [Admit] Disposition: [Admit] Impression: [Acute renal failure Hyperkalemia Hypotension UTI Sepsis] This note was generated with [employer] dictation software. It may contain incorrect words, spelling, and punctuation that were not noted in review of the chart prior to signing ED Disposition - Plan for ED Patient: Referrals: Phani Mackenzie MD [Primary Care Provider] -
--- NOTE | 2018-12-26 21:53 | SEPSIS_ITS ---
Sepsis Note - Physical Exam/Vitals Subjective: Patient reports malaise; chills with rigors; generalized weakness and anorexia. Objective: Temp Pulse Resp BP Pulse Ox 97.8 F 106 H 14 80/40 L 100 12/26/18 21:28 12/26/18 21:28 12/26/18 21:28 12/26/18 21:28 12/26/18 21:28 12/26/18 12/26/18 12/26/18 20:20 20:10 20:10 WBC RBC Hgb Hct MCV MCH MCHC RDW Std Deviation RDW Coeff of Kandi Plt Count MPV Immature Gran % (Auto) Neut % (Auto) Lymph % (Auto) [place] % (Auto) Eos % (Auto) Baso % (Auto) Absolute Neuts (auto) Absolute Lymphs (auto) Nucleated RBC % Sodium 129 L Potassium 5.7 H Chloride 100 Carbon Dioxide 11.0 L Anion Gap 18 H BUN 121 H* Creatinine 4.20 H Estim Creat Clear Calc 10.00 Est GFR (MDRD) Af Amer 14 L Est GFR (MDRD) Non-Af 11 L BUN/Creatinine Ratio 28.8 H Glucose 90 Lactic Acid 3.4 H Calcium 7.7 L Urine Color Yellow Urine Clarity Sl. Cloudy Urine pH 6.0 Ur Specific [place] 1.010 Urine Protein 100 H Urine Glucose (UA) Normal Urine Ketones Negative Urine Occult Blood 250 H Urine Nitrite Negative Urine Bilirubin Negative Urine Urobilinogen Normal Ur Leukocyte Esterase 500 H Urine RBC 5-10 SEEN Urine WBC 25-50 SEEN Ur Squamous Epith Cells 10-25 SEEN Urine Bacteria 1+ Urine Mucus 0 SEEN 12/26/18 20:10 WBC 12.7 H RBC 2.57 L Hgb 7.6 L Hct 24.1 L MCV 93.8 MCH 29.6 MCHC 31.5 L RDW Std Deviation 55.5 H RDW Coeff of Kandi 16.0 H Plt Count 293 MPV 9.3 Immature Gran % (Auto) 0.900 Neut % (Auto) 87.3 H Lymph % (Auto) 4.[address] [place] % (Auto) 5.0 Eos % (Auto) 1.8 Baso % (Auto) 0.2 Absolute Neuts (auto) 11.1 H Absolute Lymphs (auto) 0.61 L Nucleated RBC % 0 Sodium Potassium Chloride Carbon Dioxide Anion Gap BUN Creatinine Estim Creat Clear Calc Est GFR (MDRD) Af Amer Est GFR (MDRD) Non-Af BUN/Creatinine Ratio Glucose Lactic Acid Calcium Urine Color Urine Clarity Urine pH Ur Specific [place] Urine Protein Urine Glucose (UA) Urine Ketones Urine Occult Blood Urine Nitrite Urine Bilirubin Urine Urobilinogen Ur Leukocyte Esterase Urine RBC Urine WBC Ur Squamous Epith Cells Urine Bacteria Urine Mucus General: Alert, Oriented x3, Cooperative Lungs: Clear to auscultation, Normal air movement Cardiovascular: Tachycardic Capillary Refill: <3 seconds Peripheral Pulses: Normal Skin Color: Erick - Assessment/Plan Severe sepsis secondary to probable complicated UTI Patient has received IV fluids at 30 ml/kg per septic shock protocol. Continue maintenance IV fluids. Lactic acid was elevated on presentation; trend Blood cultures and urine culture were obtained; follow Received broad-spectrum antibiotics of ceftriaxone. Continue broad-spectrum antibiotics of ceftriaxone.
[2018-12-27] VITALS (52 sets, daily range): BP systolic 55–130; BP diastolic 31–82; PULSE 93–117; RESP 9–19; TEMP 36.3–37.2; O2SAT 87–102
[2018-12-27] MEDS: Midodrine HCl 5 MG Tablet 10 MG PO ×2 (00:09→05:58)
[2018-12-27] MEDS: 0.9% Normal Saline 1,000 ML 150 ML IV ×2 (00:13→02:50)
[2018-12-27 00:26] LABS: Reflex Lactate? Y
[2018-12-27 00:33] LABS: Albumin, Serum 1.7 g/dL (3.2-5.0)
[2018-12-27 01:48] LABS: Lactic Acid 2.5 mmol/L (0.4-2.0)
--- NOTE | 2018-12-27 02:14 | PN_ITS ---
Progress Note Nurse reported patient systolic blood pressure is now 60s. Patient is lethargic. Patient has already received 30ml per kilogram NSS bolus on p resentation and is on maintenance fluids. Patient is in septic shock. Of note her lactic acid is trending down. Patient has received midodrine. We will continue with midodrine. We will transfer patient to intensive care unit and start patient on levophed. Meanwhile patient was started on ceftriaxone 1 g at the emergency department. Ceftriaxone was continued as 1 g every 12 hours. Now will discontinue ceftriaxone and will start patient on Merrem. Patient has severe acute kidney injury. Will shy away from vancomycin at this time. In the past she had HIMANSHU which was attributed to vancomycin. Will start patient on Zyvox. Infectious disease has already been consulted. Probable source of infection is complicated UTI. However, can not rule out acute on chronic osteomyelitis from multiple decubitus ulcers. If patient requires more than 1omcg/min will put in a central line.
--- NOTE | 2018-12-27 02:28 | US_ITS ---
STUDY: RENAL ULTRASOUND - COMPLETE REASON FOR EXAM: Female, 68 years old. Acute renal failure. TECHNIQUE: Ultrasound evaluation of the kidneys was performed with real-time and static gonzalez-scale imaging. COMPARISON: 08/13/2018. FINDINGS: RIGHT KIDNEY: Normal location of the right kidney, which is normal in size. The right kidney measures 11.2 x 5.9 x 5.9 cm. There is a normal cortex of the right kidney. The renal cortex measures 1.6 cm. There is a 1.5 cm cyst. There are no right renal calculi. There is no right hydronephrosis. DISTAL RIGHT URETER: There is non-visualization of the distal right ureter. There is no demonstrated right ureterovesical junction calculus. There is no demonstrated right ureteral jet. LEFT KIDNEY: Normal location of the left kidney, which is normal in size. The left kidney measures 11.3 x 4.4 x 5.9 cm. There is a normal cortex of the left kidney. The renal cortex measures 1.6 cm. Multiple cysts are seen measuring 1.2, 1.4, and 1.7 cm. There are no left renal calculi. There is no left hydronephrosis. DISTAL LEFT URETER: There is non-visualization of the distal left ureter. There is no demonstrated left ureterovesical junction calculus. There is no demonstrated left ureteral jet. BLADDER: There is a Rea catheter emptying the bladder. US/Kidney and Bladder IMPRESSION: No acute abnormality. No hydronephrosis. Electronically Signed: Maynor Solis MD at 15:34 EDT , Service support ,
[2018-12-27 03:04] LABS: Erythrocyte Sedimentation Rate 108 mm/hr (0-30)
[2018-12-27 03:07] LABS: Osmolality, Urine 282 mOsm/KG
[2018-12-27 03:19] LABS: Creatinine, Urine < 13.00 mg/dL (NO RANGE EST.)
[2018-12-27 03:21] LABS: Albumin, Serum 1.6 g/dL (3.2-5.0); Anion Gap 15 (5-15); BUN 110 mg/dL (7-18); BUN/Creat Ratio 27.8 RATIO (10-20); Calcium,Total 7.1 mg/dL (8.5-10.1); Chloride 106 mmol/L (98-107); Creatinine, Serum 3.95 mg/dL (0.55-1.02); EST Glomerular Filtration Rate 12 mL/min (>60); Est Glom Filt Rate - Afr Amer 14 mL/min (>60); Estimated Creatinine Clearance 10.63 ml/min; Glucose 86 mg/dL (74-106); Potassium 5.3 mmol/L (3.5-5.1); Sodium Level 133 mmol/L (136-145)
[2018-12-27 03:25] LABS: Urine Sodium 84 mmol/L (Not Establ.)
[2018-12-27] MEDS: Sodium Bicarbonate 8.4% 50 ML Syringe 50 MEQ IV (03:27)
[2018-12-27] MEDS: 0.9% NaCl IVPB Med Flush (250 mL) 15 ML IV ×2 (03:33→22:21)
[2018-12-27] MEDS: Polyethylene Glycol 3350 17 GM PACKET 34 GM PO (03:40)
[2018-12-27] MEDS: Sodium Polystyrene Sulfonate 15 GM/60 ML UDC 30 GM PO (03:42)
[2018-12-27] MEDS: Linezolid 600 MG 600 MG/300 ML BAG 200 MG IV ×3 (04:15→22:10)
--- NOTE | 2018-12-27 05:45 | RAD_ITS ---
STUDY: X-RAY CHEST REASON FOR EXAM: Female, 68 years old. Status post central line placement. TECHNIQUE: Single AP portable view of the chest. COMPARISON: 08/11/2018. FINDINGS: There is a right internal jugular central venous catheter with its tip overlying the superior vena cava. There is no demonstrated pneumothorax. The lungs are clear and expanded. There is no demonstrated pleural abnormality. Normal size heart. Normal mediastinum and sergio. Normal visualized pulmonary arteries. Normal visualized aortic arch and descending thoracic aorta. There are degenerative changes of the visualized thoracic spine. There is degenerative osteoarthritis of the bilateral shoulders. There is no demonstrated abnormality of the visualized soft tissue structures of the upper abdomen. RAD/CXR for Line Placement IMPRESSION: Central line is in adequate position. No evidence for acute cardiopulmonary pathology. Electronically Signed: Napoleon Corrigan MD at 6:50 EDT , Service support ,
--- NOTE | 2018-12-27 05:46 | PCM.PN.BLA ---
Progress Note Procedure: CV catheter Insertion Indication: Septic Shock Informed consent: The procedure plan, including medications, benefits and potential complications were discussed with patient. The potential need to secondary procedures such as chest tube placement to evacuate a pneumothorax, was also conveyed. The patient was appropriately placed to maximize comfort. The site was cleansed and allowed to dry prior to draping the patient. The skin overlying the access site was infiltrated with lidocaine. The vein was successfully cannulated and a guidewire was inserted. The needle was removed and the vein dilator was advanced over the guidewire. The dilator was removed and a catheter was threaded over the guidewire while maintaining control over the guidewire. The guidewire was removed and each port was sequentially aspirated and then flushed with saline. The catheter was sutured in place and the site was dressed using sterile technique. A chest x-ray was obtained and the tip is overlying the superior vena cava. The patient tolerated the procedure well. Code Visit Procedures: 09826 US Guide Vascular Access
[2018-12-27] MEDS: Gabapentin 100 MG Capsule PO ×3 (05:58→22:24)
[2018-12-27 06:16] LABS: Absolute Neutrophil Count 16.2 X10^3/uL (2.0-7.7); Basophil% 0.2 % (0-1); Eosinophils% 2.2 % (0-5); Hematocrit 23.9 % (37-47); Hemoglobin 7.6 g/dL (12.0-15.0); Lymphocyte % 4.2 % (19-41); Mean Corp Hgb Conc 31.8 g/dL (32-36); Mean Corpuscular Hgb 29.7 pg (27.0-32.0); Mean Corpuscular Volume 93.4 fL (81-99); Mean Platelet Vol. 9.3 fl (6.2-12.0); Monocyte% 4.6 % (0-10); Neutrophil # 16.18 X10^3/uL (2.7-7.7); Neutrophil % 86.6 % (47-70); Platelet Count 371 K/mm3 (150-450); RBC Distribution Width CV 16.3 % (11.6-14.6); RBC Distribution Width SD 55.5 fl (35.1-43.9); Red Blood Count 2.56 M/mm3 (4.2-5.4); White Blood Count 18.7 K/mm3 (4.4-11.0)
[2018-12-27 06:17] LABS: Absolute Lymphocyte Count 0.78 X10^3/uL (0.83-4.51); Basophil# 0.04 X10^3/uL; Eosinophil# 0.41 X10^3/uL; Lymphocyte # 0.78 X10^3/ul (4.0); Monocyte# 0.86 X10^3/uL; NRBC Flagged by Analyzer 0 % (0-5)
[2018-12-27 06:38] LABS: Anion Gap 16 (5-15); BUN 109 mg/dL (7-18); BUN/Creat Ratio 28.6 RATIO (10-20); Calcium,Total 7.2 mg/dL (8.5-10.1); Chloride 104 mmol/L (98-107); Creatinine, Serum 3.81 mg/dL (0.55-1.02); EST Glomerular Filtration Rate 12 mL/min (>60); Est Glom Filt Rate - Afr Amer 15 mL/min (>60); Estimated Creatinine Clearance 11.02 ml/min; Ferritin 891 ng/mL (8-252); Glucose 138 mg/dL (74-106); Iron 32 ug/dL (50-170); Iron Binding Capacity,Total 104 ug/dL (250-450); PERCENT IRON SATURATION 30.8 % (15.0-55.0); Potassium 4.5 mmol/L (3.5-5.1); Sodium Level 132 mmol/L (136-145)
--- NOTE | 2018-12-27 06:52 | PCM.CON.CC ---
Reason for Consult Date of Consultation: 12/27/18 Reason for Consultation: Septic shock History of Present Illness: The patient is a 68-year-old female, with a history as outlined below, who presented to the emergency department from her residential facility over concerns for hyperkalemia. The patient was last admitted to the hospital in July 2018 in the setting of septic shock secondary to chronic osteomyelitis of the pelvis. During that hospitalization, the patient was evaluated by infectious diseases and plastic surgery, who felt that the patient's wounds were chronic. Upon discharge, she was instructed to complete a prolonged course of p.o. amoxicillin. On presentation to the emergency department, the patient was noted initially to be afebrile, tachycardic and a bit hypotensive. Laboratory evaluation revealed an elevated white blood cell count to 13,000. Hemoglobin was noted to be 7.6 g/dL. Chemistry profile was notable for a sodium of 129, potassium of 5.7, bicarbonate of 11, anion gap of 18, BUN of 121 and creatinine of 4.2. Lactate was elevated to 3.4. Albumin was low at 1.7. Urinalysis was negative for nitrites but positive for leukocyte esterase. 25-50 white blood cells were seen along with 1+ urine bacteria. The patient received supplemental IV fluid hydration and was started on antibiotics. In total, the patient received 3 L of supplemental IV fluid hydration. Despite this, the patient remained relatively hypotensive. Therefore, a central venous catheter was placed and the patient was initiated on vasopressor support. Past Medical History Past Medical History (Chronic Problems): Chronic Problems (Last Reviewed 12/27/18 @ 00:34 by Jaison Lopez MD) Diabetic ulcer of right foot with necrosis of muscle (Chronic) lateral aspect at 5th metatarsal Chronic osteomyelitis of left pelvic region (Chronic) Stage IV pressure ulcer of sacral region (Chronic) Right ischial pressure sore, stage 4 (Chronic) Infected decubitus ulcer (Chronic) Open wound of left thigh (Chronic) traumatic skin tear posterior thigh Incompetent urethral closure mechanism (Chronic) Neurogenic bladder (Chronic) Stage II pressure ulcer (Chronic) Chronic suprapubic catheter (Chronic) Diabetes mellitus type 2 in nonobese (Chronic) Hypertension (Chronic) Gout (Chronic) with arthropathy Pressure ulcer of left buttock, stage 3 (Chronic) left lower buttock/upper thigh area Diabetes mellitus (Chronic) Pressure ulcer of right buttock, stage 3 (Chronic) Diabetic neuropathy, type II diabetes mellitus (Chronic) Malnutrition (Chronic) Back pain (Chronic) Arthritis (Chronic) 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 significance to followup Anemia of chronic disease (Chronic) Physical deconditioning (Chronic) Dupuytren's contracture of right hand (Chronic) Spinal stenosis (Chronic) Hyperlipidemia (Chronic) RP (rectal prolapse) (Chronic) Medical History: Medical History (Last Reviewed 12/27/18 @ 00:34 by Jaison Lopez MD) Open wound of left thigh (Chronic) S71.102A traumatic skin tear posterior thigh Incompetent urethral closure mechanism (Chronic) N36.8 Neurogenic bladder (Chronic) N31.9 Stage II pressure ulcer (Chronic) L89.92 Complicated urinary tract infection (Acute) N39.0 Hematuria (Inactive) R31.9 Diabetes mellitus type 2 in nonobese (Chronic) E11.9 Hypertension (Chronic) I10 Gout (Chronic) M10.9 with arthropathy Pressure ulcer of left buttock, stage 3 (Chronic) L89.323 left lower buttock/upper thigh area Pressure ulcer of left buttock, stage 2 (Inactive) L89.322 Diabetes mellitus (Chronic) E11.9 Pressure ulcer of right buttock, stage 3 (Chronic) L89.313 Diabetic neuropathy, type II diabetes mellitus (Chronic) E11.40 Malnutrition (Chronic) E46 Back pain (Chronic) M54.9 Arthritis (Chronic) M19.90 chronic osteomyelitis left ischial area (Chronic) Pressure sore of left ischium, stage 4 (Chronic) L89.324 Lytic bone lesion of right femur (Chronic) M89.8X5 and right humerus ? significance to followup Anemia of chronic disease (Chronic) D63.8 Physical deconditioning (Chronic) R53.81 Dupuytren's contracture of right hand (Chronic) M72.0 Spinal stenosis (Chronic) M48.00 Hyperlipidemia (Chronic) E78.5 RP (rectal prolapse) (Chronic) K62.3 Allergies No Known Allergies Allergy (Verified 08/16/18 13:05) Home Medications: Ambulatory Orders Medication Instructions Recorded Allopurinol [Zyloprim] 200 mg PO DAILY 07/05/14 Multivitamins,Therapeutic 1 tab PO DAILY 07/05/14 [Multivitamin] Timolol Maleate [Timoptic-XE 0.5%] 1 drp EACH EYE DAILY 07/05/14 Ascorbic Acid [Vitamin C] 500 mg PO DAILY@0800 09/09/17 metFORMIN HCl [Glucophage] 1,000 mg PO BID 02/26/18 Gabapentin [Neurontin] 200 mg PO TID 06/16/18 Lactobacillus Acidophilus 1 cap PO DAILY 06/16/18 [Acidophilus] Linagliptin [Tradjenta] 5 mg PO DAILY 06/16/18 Polyethylene Glycol 3350 [Miralax] 17 gm PO DAILY 06/16/18 Insulin Lispro [Humalog KwikPen] See Protocol SC ACHS insuln.pen 06/22/18 Citric AC/Gluconolact/Mag Carb 30 ml IR DAILY 07/20/18 [Renacidin Irrigation Solution] Latanoprost 0.005% [Xalatan 1 drop EACH EYE QHS 07/20/18 Opthalmic] Losartan Potassium [Cozaar] 25 mg PO DAILY 08/11/18 Metoprolol Tartrate [Lopressor 25 mg PO BID 08/11/18 (beta honey)] Multivit,Stress Formula/Zinc 1 tab PO BID 08/11/18 [Stress Formula with Zinc Tab] Oxycodone HCl/Acetaminophen 1 tab PO Q4H PRN PRN #10 tab 08/14/18 [Percocet 5-325 mg Tablet] Oxybutynin Chloride [Oxybutynin 5 mg PO DAILY 12/26/18 Chloride ER] Surgical History: Surgical History (Last Reviewed 12/27/18 @ 00:34 by Jaison Lopez MD) Chronic suprapubic catheter (Chronic) Z93.[address] (Chronic) Z93.3 Previous back surgery Z98.890 Surgical History: - - Surgery for rectal prolapse with anterior resection and rectopexy at [facility] in 2008 and back surgery 1979. Colostomy was November 2012. Excision left ischial pressure sore with partial ostectomy for osteomyelitis and excision right ischial pressure sore and excision left lateral ankle pressure sore with partial ostectomy for osteomyelitis in 08/01. Psychiatric History: Anxiety, Depression [employer] History: No pertinent [employer] history Lives: [facility] Smoking Status: Never smoker - *Family History Maternal History Items: Diabetes, Hypertension Paternal History Items: Diabetes, Hypertension Review of Systems Constitutional: Reports: Chills, Fatigue Eyes: Denies: Blurred vision, Double vision HEENT: Denies: Head Aches, Sinus Congestion, Sinus Drainage Cardiovascular: Denies: Chest Pain, Palpitations Respiratory: Denies: Cough, Shortness of breath at rest, Sputum production Gastrointestinal: Denies: Abdominal Pain, Nausea, Vomiting Genitourinary: Denies: Dysuria Musculoskeletal: Reports: Joint stiffness Skin: Denies: Rash, Wounds Neurological: Denies: Numbness, Tingling, Focal weakness Psychiatric: Denies: Anxiety, Depression, Homicidal Ideations, Suicidal Ideations Hematologic/ Lymphatic: Reports: Anemia Patient Problems: Active and Suspected Problems (Last Reviewed 12/27/18 @ 00:34 by Jaison Lopez MD) Acute kidney failure (Acute) Septic shock (Acute) Severe sepsis (Acute) Objective: The patient's most recent lab work, culture data and imaging studies have all been personally reviewed. Surface echocardiogram from June 2018 revealed an ejection fraction of 60% along with stage I diastolic dysfunction. Pulmonary artery systolic pressure was estimated to be 42 mmHg. Blood and urine cultures are pending. - Physical Exam General: Alert, Cooperative, No apparent distress HEENT: Atraumatic, Normocephalic Oral: Dry Mucosa Neck: Supple, No Nodes, Trachea Midline Lungs: Normal air movement, No rhonchi, No wheeze, No rales Cardiovascular: Normal S1, Normal S2, No murmurs, Tachycardic Abdomen: Bowel Sounds Present, Soft, Non Tender, - - + Ostomy Extremities: No clubbing, No cyanosis, No edema Skin: No breakdown Musculoskeletal: No Tenderness to Palpation of Joints or Extremities Lymphatic: No Cervical, Supraclavicular, or Inguinal Adenopathy Neurological: - - No focal neurological deficits. Psych/Mental Status: Flat Affect Vital Signs Temp Pulse Resp BP Pulse Ox 97.4 F L 110 H 15 106/53 L 100 12/27/18 02:33 12/27/18 06:00 12/27/18 06:00 12/27/18 06:45 12/27/18 06:00 Oxygen Flow Rate (L/min) 4 Oxygen Delivery Method Nasal Cannula Weight: 150 lb 5.684 oz Body Mass Index (BMI) 27.5 Finger Stick Blood Glucose 154 Intake and Output for Last 24 Hours 12/25/18 12/26/18 12/27/18 23:59 23:59 23:59 Intake Total 2295 / 2295 1707.09 / 1707.09 Output Total 700 / 850 850 / 850 Balance 1595 / 1445 857.09 / 857.09 Laboratory Tests Past 24 Hrs 12/26/18 12/26/18 12/26/18 20:10 20:10 20:10 WBC 12.7 H RBC 2.57 L Hgb 7.6 L Hct 24.1 L MCV 93.8 MCH 29.6 MCHC 31.5 L RDW Std Deviation 55.5 H RDW Coeff of Kandi 16.0 H Plt Count 293 MPV 9.3 Immature Gran % (Auto) 0.900 Neut % (Auto) 87.3 H Lymph % (Auto) 4.8 L Howell % (Auto) 5.0 Eos % (Auto) 1.8 Baso % (Auto) 0.2 Absolute Neuts (auto) 11.1 H Absolute Lymphs (auto) 0.61 L Nucleated RBC % 0 ESR Sodium 129 L Potassium 5.7 H Chloride 100 Carbon Dioxide 11.0 L Anion Gap 18 H BUN 121 H* Creatinine 4.20 H Estim Creat Clear Calc 10.00 Est GFR (MDRD) Af Amer 14 L Est GFR (MDRD) Non-Af 11 L BUN/Creatinine Ratio 28.8 H Glucose 90 Lactic Acid 3.4 H Calcium 7.7 L Ionized Calcium Iron TIBC Iron Saturation Ferritin C-React Prot Ext Range Albumin Urine Color Urine Clarity Urine pH Ur Specific [place] Urine Protein Urine Glucose (UA) Urine Ketones Urine Occult Blood Urine Nitrite Urine Bilirubin Urine Urobilinogen Ur Leukocyte Esterase Urine RBC Urine WBC Ur Squamous Epith Cells Urine Bacteria Urine Mucus Urine Osmolality Ur Random Sodium Urine Creatinine 12/26/18 12/26/18 12/27/18 20:10 20:20 01:05 WBC RBC Hgb Hct MCV MCH MCHC RDW Std Deviation RDW Coeff of Kandi Plt Count MPV Immature Gran % (Auto) Neut % (Auto) Lymph % (Auto) Howell % (Auto) Eos % (Auto) Baso % (Auto) Absolute Neuts (auto) Absolute Lymphs (auto) Nucleated RBC % ESR Sodium Potassium Chloride Carbon Dioxide Anion Gap BUN Creatinine Estim Creat Clear Calc Est GFR (MDRD) Af Amer Est GFR (MDRD) Non-Af BUN/Creatinine Ratio Glucose Lactic Acid 2.5 H Calcium Ionized Calcium Iron TIBC Iron Saturation Ferritin C-React Prot Ext Range Albumin 1.7 L Urine Color Yellow Urine Clarity Sl. Cloudy Urine pH 6.0 Ur Specific [place] 1.010 Urine Protein 100 H Urine Glucose (UA) Normal Urine Ketones Negative Urine Occult Blood 250 H Urine Nitrite Negative Urine Bilirubin Negative Urine Urobilinogen Normal Ur Leukocyte Esterase 500 H Urine RBC 5-10 SEEN Urine WBC 25-50 SEEN Ur Squamous Epith Cells 10-25 SEEN Urine Bacteria 1+ Urine Mucus 0 SEEN Urine Osmolality Ur Random Sodium Urine Creatinine 12/27/18 12/27/18 12/27/18 02:45 02:45 02:45 WBC RBC Hgb Hct MCV MCH MCHC RDW Std Deviation RDW Coeff of Kandi Plt Count MPV Immature Gran % (Auto) Neut % (Auto) Lymph % (Auto) Howell % (Auto) Eos % (Auto) Baso % (Auto) Absolute Neuts (auto) Absolute Lymphs (auto) Nucleated RBC % ESR 108 H Sodium 133 L Potassium 5.3 H Chloride 106 Carbon Dioxide 12.0 L Anion Gap 15 BUN 110 H* Creatinine 3.95 H Estim Creat Clear Calc 10.63 Est GFR (MDRD) Af Amer 14 L Est GFR (MDRD) Non-Af 12 L BUN/Creatinine Ratio 27.8 H Glucose 86 Lactic Acid Calcium 7.1 L Ionized Calcium Iron TIBC Iron Saturation Ferritin C-React Prot Ext Range 268.00 H Albumin 1.6 L Urine Color Urine Clarity Urine pH Ur Specific [place] Urine Protein Urine Glucose (UA) Urine Ketones Urine Occult Blood Urine Nitrite Urine Bilirubin Urine Urobilinogen Ur Leukocyte Esterase Urine RBC Urine WBC Ur Squamous Epith Cells Urine Bacteria Urine Mucus Urine Osmolality Ur Random Sodium Urine Creatinine 12/27/18 12/27/18 12/27/18 02:45 02:45 02:45 WBC RBC Hgb Hct MCV MCH MCHC RDW Std Deviation RDW Coeff of Kandi Plt Count MPV Immature Gran % (Auto) Neut % (Auto) Lymph % (Auto) Howell % (Auto) Eos % (Auto) Baso % (Auto) Absolute Neuts (auto) Absolute Lymphs (auto) Nucleated RBC % ESR Sodium Potassium Chloride Carbon Dioxide Anion Gap BUN Creatinine Estim Creat Clear Calc Est GFR (MDRD) Af Amer Est GFR (MDRD) Non-Af BUN/Creatinine Ratio Glucose Lactic Acid Calcium Ionized Calcium Cancelled Iron TIBC Iron Saturation Ferritin C-React Prot Ext Range Albumin Urine Color Urine Clarity Urine pH Ur Specific [place] Urine Protein Urine Glucose (UA) Urine Ketones Urine Occult Blood Urine Nitrite Urine Bilirubin Urine Urobilinogen Ur Leukocyte Esterase Urine RBC Urine WBC Ur Squamous Epith Cells Urine Bacteria Urine Mucus Urine Osmolality 282 Ur Random Sodium Urine Creatinine < 13.00 12/27/18 12/27/18 12/27/18 02:45 05:00 05:00 WBC 18.7 H RBC 2.56 L Hgb 7.6 L Hct 23.9 L MCV 93.4 MCH 29.7 MCHC 31.8 L RDW Std Deviation 55.5 H RDW Coeff of Kandi 16.3 H Plt Count 371 MPV 9.3 Immature Gran % (Auto) 2.200 H Neut % (Auto) 86.6 H Lymph % (Auto) 4.2 L Howell % (Auto) 4.6 Eos % (Auto) 2.2 Baso % (Auto) 0.2 Absolute Neuts (auto) 16.2 H Absolute Lymphs (auto) 0.78 L Nucleated RBC % 0 ESR Sodium 132 L Potassium 4.5 Chloride 104 Carbon Dioxide 12.0 L Anion Gap 16 H BUN 109 H* Creatinine 3.81 H Estim Creat Clear Calc 11.02 Est GFR (MDRD) Af Amer 15 L Est GFR (MDRD) Non-Af 12 L BUN/Creatinine Ratio 28.6 H Glucose 138 H Lactic Acid Calcium 7.2 L Ionized Calcium Iron 32 L TIBC 104 L Iron Saturation 30.8 Ferritin 891 H C-React Prot Ext Range Albumin Urine Color Urine Clarity Urine pH Ur Specific [place] Urine Protein Urine Glucose (UA) Urine Ketones Urine Occult Blood Urine Nitrite Urine Bilirubin Urine Urobilinogen Ur Leukocyte Esterase Urine RBC Urine WBC Ur Squamous Epith Cells Urine Bacteria Urine Mucus Urine Osmolality Ur Random Sodium 84 Urine Creatinine Clinical Impression(s) from Imaging Studies Chest X-Ray 12/27/18 05:45 IMPRESSION: Central line is in adequate position. No evidence for acute cardiopulmonary pathology. Electronically Signed: Napoleon Corrigan MD at 6:50 EDT , Service support , Assessment/Plan Active and Suspected Problems (Last Reviewed 12/27/18 @ 00:34 by Jaison Lopez MD) Acute kidney failure (Acute) Septic shock (Acute) Severe sepsis (Acute) RECOMMENDATIONS: 1. Continue broad-spectrum antimicrobial coverage, pending evaluation by infectious diseases. 2. Continue vasopressor support to maintain a mean arterial pressure at or above 65 mmHg. 3. Supplemental IV fluids per nephrology recommendations. 4. Await wound care recommendations. 5. Nutrition and physical therapy evaluations today. 6. Start sliding scale insulin coverage. 7. Monitor blood counts daily. Transfuse if hemoglobin is less than 7 g/dL. IMPRESSIONS: 1. Septic shock Clinical concern for underlying infected decubitus ulcer versus urinary tract source of infection. The patient has been adequately volume resuscitated at this time. Continue vasopressor support to maintain a mean arterial pressure at or above 65 mmHg. Continue broad-spectrum antimicrobial therapy, pending evaluation by infectious diseases. Consultation has been placed to wound care to assist with management. 2. Acute kidney injury/hyperkalemia Neurology consultation is pending. Hyperkalemia resolved with medical management. Fluids to be managed by nephrology. Concerns for postobstructive etiology to acute kidney injury, given neurogenic bladder. Renal ultrasound is pending. Continue to monitor urine output. No current indication for renal replacement therapy. 3. Normocytic anemia The patient has chronic anemia with prior upper and lower endoscopies completed in July 2018 noted to be normal. Continue to monitor blood counts daily. Plan to transfuse if hemoglobin drops below 7 g/dL. 4. Chronic decubitus ulcer/malnutrition/diabetes/neuropathy/hypertension Complicates care, management, recovery and prognosis. Nutrition and physical therapy to evaluate the patient today. Continue to hold losartan. Start sliding scale insulin coverage. TIME: 37 minutes of critical care time, independent of procedures, was spent addressing the patient's septic shock, acute kidney injury, hyperkalemia, anemia, decubitus ulcerations, review of all data and collaboration with the care team. ([id number]) Code Visit 9xxxx: [id number] Critical care first hour
[2018-12-27 08:06] LABS: Bedside Glucose 139 mg/dL (70-110)
[2018-12-27] MEDS: Multivitamins,Therapeutic Tablet 1 TABLET PO (08:42)
[2018-12-27] MEDS: Allopurinol 100 MG Tablet 200 MG PO (08:42)
[2018-12-27] MEDS: Ascorbic Acid 500 MG Tablet PO (08:42)
--- NOTE | 2018-12-27 09:18 | PCM.PN.HOSP ---
Patient Problems: Active and Suspected Problems (Last Reviewed 12/27/18 @ 00:34 by Jaison Lopez MD) Acute kidney failure (Acute) Septic shock (Acute) Severe sepsis (Acute) Subjective: Patient is a 68-year-old female was admitted from a [facility] on account of hyperkalemia. Potassium checked in the [facility] was 6.7 and she received Kayexalate and MiraLAX and was brought into the ED potassium was 5.7 with lactic acid of 3.4. Rea catheter was changed in the ED on account of sediments present in the Rea. UA done showed presence of UTI patient also complained of lethargy with [place], malaise and anorexia. She was empirically started on IV ceftriaxone. She subsequently had a central line placed on account of persistent hypotension and managed for septic shock due to infected decubitus ulcers and possible UTI. She was started on Levophed. Patient seen and examined this morning. She still feels lethargic. She denied any chest pain, fever, chills, palpitations diarrhea or vomiting. Review of systems is otherwise negative. Labs and vitals reviewed; potassium is down to 4.5 today and sodium is up to 133. Creatinine is elevated at 3.95 with BUN of 110. She is tachycardic. WBC is up to 18.7 today and hemoglobin is 7.6. Vitals/I&O's: Vital Signs Temp Pulse Resp BP Pulse Ox 97.4 F L 117 H 14 126/69 H 100 12/27/18 02:33 12/27/18 09:00 12/27/18 09:00 12/27/18 09:00 12/27/18 09:00 Oxygen Flow Rate (L/min) 4 Oxygen Delivery Method Nasal Cannula Weight: 150 lb 5.684 oz Body Mass Index (BMI) 27.5 Finger Stick Blood Glucose 154 Intake and Output for Last 24 Hours 12/25/18 12/26/18 12/27/18 23:59 23:59 23:59 Intake Total 2295 / 2295 2561.62 / 2561.62 Output Total 700 / 850 850 / 850 Balance 1595 / 1445 1711.62 / 1711.62 General: Alert, Oriented x3, Cooperative, Lethargic Oral: Dry Mucosa Neck: Supple, No JVD, Negative Carotid Bruits Lungs: Clear to auscultation, Normal air movement, No rhonchi, No wheeze, No rales Cardiovascular: Regular Rhythm, Normal S1, Normal S2, No murmurs, Tachycardic Abdomen: Bowel Sounds Present, Soft, Non Tender, Non-Distended, No Hepato-splenomegaly, - - colostomy bag filled with scant brown stool Extremities: No clubbing, No cyanosis, No edema, Capillary Refill Less than 3 Seconds Skin: No rashes, No breakdown Musculoskeletal: No Tenderness to Palpation of Joints or Extremities Lymphatic: No Cervical, Supraclavicular, or Inguinal Adenopathy Neurological: Cranial nerves II-XII grossly intact, Neuro grossly intact, Motor Exam 5/5 strength throughout Psych/Mental Status: Normal Affect, Appropriate, Alert and oriented to time, place, person, mood and affect Laboratory Results 12/26/18 20:10: WBC 12.7 H, RBC 2.57 L, Hgb 7.6 L, Hct 24.1 L, MCV 93.8, MCH 29.6, MCHC 31.5 L, RDW Std Deviation 55.5 H, RDW Coeff of Kandi 16.0 H, Plt Count 293, MPV 9.3, Immature Gran % (Auto) 0.900, Neut % (Auto) 87.3 H, Lymph % (Auto) 4.8 L, [place] % (Auto) 5.0, Eos % (Auto) 1.8, Baso % (Auto) 0.2, Absolute Neuts (auto) 11.1 H, Absolute Lymphs (auto) 0.61 L, Nucleated RBC % 0 12/26/18 20:10: Sodium 129 L, Potassium 5.7 H, Chloride 100, Carbon Dioxide 11.0 L, Anion Gap 18 H, BUN 121 H*, Creatinine 4.20 H, Estim Creat Clear Calc 10.00, Est GFR (MDRD) Af Amer 14 L, Est GFR (MDRD) Non-Af 11 L, BUN/Creatinine Ratio 28.8 H, Glucose 90, Calcium 7.7 L 12/26/18 20:10: Lactic Acid 3.4 H 12/26/18 20:10: Albumin 1.7 L 12/26/18 20:20: Urine Color Yellow, Urine Clarity Sl. Cloudy, Urine pH 6.0, Ur Specific [place] 1.010, Urine Protein 100 H, Urine Glucose (UA) Normal, Urine Ketones Negative, Urine Occult Blood 250 H, Urine Nitrite Negative, Urine Bilirubin Negative, Urine Urobilinogen Normal, Ur Leukocyte Esterase 500 H, Urine RBC 5-10 SEEN, Urine WBC 25-50 SEEN, Ur Squamous Epith Cells 10-25 SEEN, Urine Bacteria 1+, Urine Mucus 0 SEEN 12/27/18 01:05: Lactic Acid 2.5 H 12/27/18 02:45: ESR 108 H 12/27/18 02:45: C-React Prot Ext Range 268.00 H 12/27/18 02:45: Sodium 133 L, Potassium 5.3 H, Chloride 106, Carbon Dioxide 12.0 L, Anion Gap 15, BUN 110 H*, Creatinine 3.95 H, Estim Creat Clear Calc 10.63, Est GFR (MDRD) Af Amer 14 L, Est GFR (MDRD) Non-Af 12 L, BUN/Creatinine Ratio 27.8 H, Glucose 86, Calcium 7.1 L, Albumin 1.6 L 12/27/18 02:45: Ionized Calcium Cancelled 12/27/18 02:45: Urine Osmolality 282 12/27/18 02:45: Urine Creatinine < 13.00 12/27/18 02:45: Ur Random Sodium 84 12/27/18 05:00: Sodium 132 L, Potassium 4.5, Chloride 104, Carbon Dioxide 12.0 L, Anion Gap 16 H, BUN 109 H*, Creatinine 3.81 H, Estim Creat Clear Calc 11.02, Est GFR (MDRD) Af Amer 15 L, Est GFR (MDRD) Non-Af 12 L, BUN/Creatinine Ratio 28.6 H, Glucose 138 H, Calcium 7.2 L, Iron 32 L, TIBC 104 L, Iron Saturation 30.8, Ferritin 891 H 12/27/18 05:00: WBC 18.7 H, RBC 2.56 L, Hgb 7.6 L, Hct 23.9 L, MCV 93.4, MCH 29.7, MCHC 31.8 L, RDW Std Deviation 55.5 H, RDW Coeff of Kandi 16.3 H, Plt Count 371, MPV 9.3, Immature Gran % (Auto) 2.200 H, Neut % (Auto) 86.6 H, Lymph % (Auto) 4.2 L, [place] % (Auto) 4.6, Eos % (Auto) 2.2, Baso % (Auto) 0.2, Absolute Neuts (auto) 16.2 H, Absolute Lymphs (auto) 0.78 L, Nucleated RBC % 0 12/27/18 08:02: POC Glucose 139 H Diagnostic Data Chest X-Ray 12/27/18 05:45 IMPRESSION: Central line is in adequate position. No evidence for acute cardiopulmonary pathology. Electronically Signed: Napoleon Corrigan MD at 6:50 EDT , Service support , Current Medications Acetaminophen (Tylenol) 650 mg PO Q6H PRN PRN PRN Reason: Mild pain 1-3/Temp > 100.7 F Allopurinol (Zyloprim) 200 mg PO DAILYCM [facility] Last Admin: 12/27/18 08:42 Dose: 200 mg Documented by: Ascorbic Acid (Vitamin C) 500 mg PO DAILY@0800 [facility] Last Admin: 12/27/18 08:42 Dose: 500 mg Documented by: Dextrose (D50w Syringe) 0 gm IV X1 PRN; Protocol PRN Reason: Hypoglycemia Gabapentin (Neurontin) 100 mg PO TID [facility] Last Admin: 12/27/18 05:58 Dose: 100 mg Documented by: Glucagon () 1 mg IM .X1 PRN PRN Reason: Hypoglycemia Sodium Chloride () 250 mls @ 15 mls/hr IV .[id number] PRN PRN Reason: SALINE FLUSH Last Infusion: 12/27/18 03:39 Dose: 0 mls/hr Documented by: Norepinephrine Bitartrate 8 mg (/ Sodium Chloride) 250 mls @ 9.375 mls/hr CONT INF .[id number] [facility]; Protocol Last Titration: 12/27/18 07:00 Dose: 15 mcg/min, 28.1 mls/hr Documented by: Meropenem 500 mg/ Sodium (Chloride) 60 mls @ 100 mls/hr IV Q12 [facility] Last Infusion: 12/27/18 04:17 Dose: Infused Documented by: Linezolid (Zyvox 600mg) 600 mg in 300 mls @ 200 mls/hr IV Q12 [facility] Last Infusion: 12/27/18 06:09 Dose: Infused Documented by: Lactobacillus Acidophilus (Acidophilus) 1 tablet PO DAILY [facility] Latanoprost (Xalatan Opthalmic) 1 drop EACH EYE QHS [facility] Multivitamins (Multivitamin) 1 tablet PO DAILYCM [facility] Last Admin: 12/27/18 08:42 Dose: 1 tablet Documented by: Polyethylene Glycol (Miralax) 34 gm PO X1 PRN PRN Reason: Bowel Movement Polyethylene Glycol (Miralax) 17 gm PO DAILY [facility] Sodium Bicarbonate (Sodium Bicarbonate) 650 mg PO 4X/DAY [facility] Sodium Chloride () 10 - 40 ml IV UD PRN PRN Reason: SALINE FLUSH Sodium Hypochlorite (Dakins Solution 0.25% (1/2 Strength)) 1 applic TOPICAL DAILY [facility]; Protocol Timolol Maleate (Timoptic) 1 drop EACH EYE BID [facility] Tolterodine Tartrate (Detrol La) 2 mg PO DAILY [facility] Medical Necessity - Tobacco Use Smoking Status: Never smoker Assessment/Plan All Active Problems (Last Reviewed 12/27/18 @ 00:34 by Jaison Lopez MD) Acute kidney failure (Acute) Septic shock (Acute) Severe sepsis (Acute) Hyperkalemia (Acute) Acute hyperkalemia (Acute) Acute kidney failure (Acute) Metabolic acidemia (Acute) Anemia (Acute) Severe sepsis (Acute) Complicated urinary tract infection (Acute) 1. Septic shock due to infected decubitus ulcers and acute complicated UTI still on levophed nad IVF remains tachycardic and has leucocytosis (wbc is up to 18.7) critical care on board blood and urine cultures pending wound care consulted o/a of decubitus ulcers on IV meropenem and IV linezolid ID and wound care also consulted 2. HIMANSHU: Cr is down to 3.95 today, from 4.2 on admission. continue hydration with IVF. nephrology consulted. KIdney and bladder USG pending. 3. Hyperkalemia: K is down to 4.5 this morning. REceived kayexalate. HIMANSHU is also likely contributory factor 4. ANion gap metabolic acidosis: likely due to uremia from HIMANSHU. Bicvarb was 11 on admission, and is now 12n today. ANion gap is 15, from 18 yesterday 5. Lactic acidosis; lactic acid was 3.4 on admisison, now down to 2.5. Continue with IV fluid hydration monitor. Metformin on hold 6.Diabetes mellitus: Metformin and tradjenta on hold. ISS. Accuchecks ACHS 7. Acute on chronic anemia: Hb is 7.6. baseline is ~ 8. has had EGD and colonoscopy in the past which were negative. 8. Stage III decubitus ulcers of sacral areas: Present on admission. Wound care consult. Has colostomy bag in place. 9. Severe protein calorie malnutrition. Albumin is 1.6. Consult nutrition. 10. Hypocalcemia: Calcium is 7.2 today. Will replace. Will check magnesium as well. 11. Hyponatremia: Na was 129 on admission, is now 132. Likely hypotonic hypovolemic hyponatremia on account of dehydration and HIMANSHU as well as septic shock. Hydrate with IVF and monitor DVT prophylaxis: SCDs. Code Visit Inpatient E&M: 00303 Subs Hosp L3
[2018-12-27] MEDS: DAKIN'S SOL HALF STRENGTH (=0.25%) 1 APPLIC TOPICAL (10:30)
--- NOTE | 2018-12-27 10:30 | CASEMGMT ---
RN CM Note: Participated in interdisciplinary rounds. Pt is on RA, remains on Levophed, Cont IV antibiotics. wound nurse consult, Renal, ID consults pending. Pt is from [facility]. SW will assist with return back to SNF on dc. Mj RABAGON RN ACM
[2018-12-27] MEDS: Timolol 0.5% 5ML OPTH.BTL 1 DRP EACH EYE ×2 (10:31→22:23)
[2018-12-27] MEDS: Sodium Bicarbonate 650 MG Tablet PO ×3 (10:31→22:24)
[2018-12-27] MEDS: Tolterodine Tartrate 2 MG CAP.SA PO (10:31)
--- NOTE | 2018-12-27 10:46 | CASEMGMT ---
Patient is a [place] resident from [facility]. SW participated in interdisciplinary rounds. Patient's plan is to return to [facility] at d/c. Plan: d/c back to [facility] Ofelia BOSE
--- NOTE | 2018-12-27 11:45 | NURSING ---
wound photo: right lateral foot
--- NOTE | 2018-12-27 11:45 | NURSING ---
wound photo: sacrum
--- NOTE | 2018-12-27 11:46 | NURSING ---
wound photo: left ischium
--- NOTE | 2018-12-27 11:49 | NURSING ---
wound photo: right ischium
--- NOTE | 2018-12-27 11:53 | CON.PCM_ITS ---
Problem List (1) Acute kidney failure Status: Acute (2) Hyperkalemia Status: Acute (3) Metabolic acidemia Status: Acute Consultation - Renal PCP/ Referring MD: Requesting physician: [] Primary care physician: Phani Mackenzie MD - History of Present Illness History of Present Illness: The patient is a 68 year old F past medical history of physical deconditioning, neurogenic bladder, diabetes, osteomyelitis of the sacral bone, hypertension and hyperlipidemia. Patient was brought from [facility] to [facility] ER for hyperkalemia. In the emergency room potassium was 6.7 with acute kidney injury and creatinine up to 4.2 mg deciliter. Patient also was found to be hypotensive. Patient admitted to the ICU for septic shock, HIMANSHU and hyperkalemia. Patient received 3 L of normal saline and started on Levophed and broad-spectrum antibiotics. Patient also received Kayexalate for hyperkalemia. Potassium this morning is 4.5. UA showed leukocytosis, large leukocyte esterase, RBCs 5-10. Patient has suprapubic catheter with small change yesterday in the emergency room. Patient is making urine. Patient's urine looked benign. Currently on Levophed 5 MCG per minute. IV fluid was stopped. Blood pressure is adequate. Review of system: 12 system review is negative. Patient denied nausea, vomiting, shortness of breath [] - Allergies Allergies: Allergies No Known Allergies Allergy (Verified 08/16/18 13:05) - Current Medications Current Medications: Current Medications Acetaminophen (Tylenol) 650 mg PO Q6H PRN PRN PRN Reason: Mild pain 1-3/Temp > 100.7 F Allopurinol (Zyloprim) 200 mg PO DAILYCM [facility] Last Admin: 12/27/18 08:42 Dose: 200 mg Documented by: Ascorbic Acid (Vitamin C) 500 mg PO DAILY@0800 [facility] Last Admin: 12/27/18 08:42 Dose: 500 mg Documented by: Dextrose (D50w Syringe) 0 gm IV X1 PRN; Protocol PRN Reason: Hypoglycemia Gabapentin (Neurontin) 100 mg PO TID [facility] Last Admin: 12/27/18 05:58 Dose: 100 mg Documented by: Glucagon () 1 mg IM .X1 PRN PRN Reason: Hypoglycemia Sodium Chloride () 250 mls @ 15 mls/hr IV .[id number] PRN PRN Reason: SALINE FLUSH Last Infusion: 12/27/18 03:39 Dose: 0 mls/hr Documented by: Norepinephrine Bitartrate 8 mg (/ Sodium Chloride) 250 mls @ 9.375 mls/hr CONT INF .[id number] [facility]; Protocol Last Titration: 12/27/18 11:31 Dose: 5 mcg/min, 9.4 mls/hr Documented by: Linezolid (Zyvox 600mg) 600 mg in 300 mls @ 200 mls/hr IV Q12 [facility] Last Infusion: 12/27/18 10:59 Dose: Infused Documented by: Meropenem 1 gm/ Sodium (Chloride) 120 mls @ 33 mls/hr IV Q12 [facility] Last Admin: 12/27/18 10:59 Dose: 33 mls/hr Documented by: Insulin Human Lispro (Humalog Kwikpen (Bkc)) 0 unit SC ACHS [facility]; Protocol Lactobacillus Acidophilus (Acidophilus) 1 tablet PO DAILY [facility] Last Admin: 12/27/18 10:31 Dose: 1 tablet Documented by: Latanoprost (Xalatan Opthalmic) 1 drop EACH EYE QHS [facility] Multivit[facility] ([facility]ivitamin) [facility] Last Admin: 12/27/18 08:42 Dose: 1 tablet Documented by: Nutritional Formula (Sigifredo - [place] Flavor) 1 packet PO BIDCM [facility] Last Admin: 12/27/18 10:31 Dose: 1 packet Documented by: Nutritional Formula (Lactose Free) (Glucerna Shake) 120 ml PO 4X/DAY [facility] Polyethylene Glycol (Miralax) 34 gm PO X1 PRN PRN Reason: Bowel Movement Polyethylene Glycol (Miralax) 17 gm PO DAILY [facility] Sodium Bicarbonate (Sodium Bicarbonate) 650 mg PO 4X/DAY [facility] Last Admin: 12/27/18 10:31 Dose: 650 mg Documented by: Sodium Chloride () 10 - 40 ml IV UD PRN PRN Reason: SALINE FLUSH Sodium Hypochlorite (Dakins Solution 0.25% (1/2 Strength)) 1 applic TOPICAL DAILY [facility]; Protocol Last Admin: 12/27/18 10:30 Dose: 1 applicatio Documented by: Timolol Maleate (Timoptic) 1 drop EACH EYE BID [facility] Last Admin: 12/27/18 10:31 Dose: 1 drop Documented by: Tolterodine Tartrate (Detrol La) 2 mg PO DAILY [facility] Last Admin: 12/27/18 10:31 Dose: 2 mg Documented by: - Past Medical History Past Medical History (Chronic Problems): Chronic Problems (Last Reviewed 12/27/18 @ 00:34 by Jaison Lopez MD) Diabetic ulcer of right foot with necrosis of muscle (Chronic) lateral aspect at 5th metatarsal Chronic osteomyelitis of left pelvic region (Chronic) Stage IV pressure ulcer of sacral region (Chronic) Right ischial pressure sore, stage 4 (Chronic) Infected decubitus ulcer (Chronic) Open wound of left thigh (Chronic) traumatic skin tear posterior thigh Incompetent urethral closure mechanism (Chronic) Neurogenic bladder (Chronic) Stage II pressure ulcer (Chronic) Chronic suprapubic catheter (Chronic) Diabetes mellitus type 2 in nonobese (Chronic) Hypertension (Chronic) Gout (Chronic) with arthropathy Pressure ulcer of left buttock, stage 3 (Chronic) left lower buttock/upper thigh area Diabetes mellitus (Chronic) Pressure ulcer of right buttock, stage 3 (Chronic) Diabetic neuropathy, type II diabetes mellitus (Chronic) Malnutrition (Chronic) Back pain (Chronic) Arthritis (Chronic) 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 significance to followup Anemia of chronic disease (Chronic) Physical deconditioning (Chronic) Dupuytren's contracture of right hand (Chronic) Spinal stenosis (Chronic) Hyperlipidemia (Chronic) RP (rectal prolapse) (Chronic) - Past Surgical History Surgical History: - - Surgery for rectal prolapse with anterior resection and rectopexy at [facility] in 2008 and back surgery 1979. Colostomy was November 2012. Excision left ischial pressure sore with partial ostectomy for osteomyelitis and excision right ischial pressure sore and excision left lateral ankle pressure sore with partial ostectomy for osteomyelitis in 08/01. - Social History Smoking Status: Never smoker - Family History Maternal History Items: Diabetes, Hypertension Paternal History Items: Diabetes, Hypertension Patient Problems: Active and Suspected Problems (Last Reviewed 12/27/18 @ 00:34 by Jaison Lopez MD) Acute kidney failure (Acute) Septic shock (Acute) Severe sepsis (Acute) - Physical Exam General: Alert, Oriented x3, Cooperative HEENT: Atraumatic Oral: Moist Mucosa Neck: Supple, No JVD Lungs: Clear to auscultation, Normal air movement, No rhonchi, No wheeze Cardiovascular: Regular rate, Regular Rhythm, Normal S1, Normal S2 Abdomen: Soft, Non Tender, - - Colostomy bag full of liquidy stool Extremities: No clubbing, No cyanosis, No edema Skin: No rashes Musculoskeletal: No Tenderness to Palpation of Joints or Extremities Lymphatic: No Cervical, Supraclavicular, or Inguinal Adenopathy Psych/Mental Status: Appropriate Vital Signs Temp Pulse Resp BP Pulse Ox 97.4 F L 107 H 10 L 95/56 L 98 12/27/18 02:33 12/27/18 11:31 12/27/18 11:31 12/27/18 11:31 12/27/18 11:31 Oxygen Flow Rate (L/min) 4 Oxygen Delivery Method Room Air Weight: 68.2 kg Body Mass Index (BMI) 27.5 Finger Stick Blood Glucose 154 Intake and Output for Last 24 Hours 12/25/18 12/26/18 12/27/18 23:59 23:59 23:59 Intake Total 2295 / 2295 2965.40 / 2965.40 Output Total 700 / 850 850 / 850 Balance 1595 / 1445 2115.40 / 2115.40 Laboratory Tests Past 24 Hrs 12/26/18 12/26/18 12/26/18 20:10 20:10 20:10 WBC 12.7 H RBC 2.57 L Hgb 7.6 L Hct 24.1 L MCV 93.8 MCH 29.6 MCHC 31.5 L RDW Std Deviation 55.5 H RDW Coeff of Kandi 16.0 H Plt Count 293 MPV 9.3 Immature Gran % (Auto) 0.900 Neut % (Auto) 87.3 H Lymph % (Auto) 4.8 L [place] % (Auto) 5.0 Eos % (Auto) 1.8 Baso % (Auto) 0.2 Absolute Neuts (auto) 11.1 H Absolute Lymphs (auto) 0.61 L Nucleated RBC % 0 ESR Sodium 129 L Potassium 5.7 H Chloride 100 Carbon Dioxide 11.0 L Anion Gap 18 H BUN 121 H* Creatinine 4.20 H Estim Creat Clear Calc 10.00 Est GFR (MDRD) Af Amer 14 L Est GFR (MDRD) Non-Af 11 L BUN/Creatinine Ratio 28.8 H Glucose 90 Lactic Acid 3.4 H Calcium 7.7 L Ionized Calcium Iron TIBC Iron Saturation Ferritin C-React Prot Ext Range Albumin Urine Color Urine Clarity Urine pH Ur Specific Grants Urine Protein Urine Glucose (UA) Urine Ketones Urine Occult Blood Urine Nitrite Urine Bilirubin Urine Urobilinogen Ur Leukocyte Esterase Urine RBC Urine WBC Ur Squamous Epith Cells Urine Bacteria Urine Mucus Urine Osmolality Ur Random Sodium Urine Creatinine S.aureus Protein A PCR MRSA (PCR) 12/26/18 12/26/18 12/27/18 20:10 20:20 01:05 WBC RBC Hgb Hct MCV MCH MCHC RDW Std Deviation RDW Coeff of Kandi Plt Count MPV Immature Gran % (Auto) Neut % (Auto) Lymph % (Auto) [place] % (Auto) Eos % (Auto) Baso % (Auto) Absolute Neuts (auto) Absolute Lymphs (auto) Nucleated RBC % ESR Sodium Potassium Chloride Carbon Dioxide Anion Gap BUN Creatinine Estim Creat Clear Calc Est GFR (MDRD) Af Amer Est GFR (MDRD) Non-Af BUN/Creatinine Ratio Glucose Lactic Acid 2.5 H Calcium Ionized Calcium Iron TIBC Iron Saturation Ferritin C-React Prot Ext Range Albumin 1.7 L Urine Color Yellow Urine Clarity Sl. Cloudy Urine pH 6.0 Ur Specific Grants 1.010 Urine Protein 100 H Urine Glucose (UA) Normal Urine Ketones Negative Urine Occult Blood 250 H Urine Nitrite Negative Urine Bilirubin Negative Urine Urobilinogen Normal Ur Leukocyte Esterase 500 H Urine RBC 5-10 SEEN Urine WBC 25-50 SEEN Ur Squamous Epith Cells 10-25 SEEN Urine Bacteria 1+ Urine Mucus 0 SEEN Urine Osmolality Ur Random Sodium Urine Creatinine S.aureus Protein A PCR MRSA (PCR) 12/27/18 12/27/18 12/27/18 02:45 02:45 02:45 WBC RBC Hgb Hct MCV MCH MCHC RDW Std Deviation RDW Coeff of Kandi Plt Count MPV Immature Gran % (Auto) Neut % (Auto) Lymph % (Auto) [place] % (Auto) Eos % (Auto) Baso % (Auto) Absolute Neuts (auto) Absolute Lymphs (auto) Nucleated RBC % ESR 108 H Sodium 133 L Potassium 5.3 H Chloride 106 Carbon Dioxide 12.0 L Anion Gap 15 BUN 110 H* Creatinine 3.95 H Estim Creat Clear Calc 10.63 Est GFR (MDRD) Af Amer 14 L Est GFR (MDRD) Non-Af 12 L BUN/Creatinine Ratio 27.8 H Glucose 86 Lactic Acid Calcium 7.1 L Ionized Calcium Iron TIBC Iron Saturation Ferritin C-React Prot Ext Range 268.00 H Albumin 1.6 L Urine Color Urine Clarity Urine pH Ur Specific Grants Urine Protein Urine Glucose (UA) Urine Ketones Urine Occult Blood Urine Nitrite Urine Bilirubin Urine Urobilinogen Ur Leukocyte Esterase Urine RBC Urine WBC Ur Squamous Epith Cells Urine Bacteria Urine Mucus Urine Osmolality Ur Random Sodium Urine Creatinine S.aureus Protein A PCR MRSA (PCR) 12/27/18 12/27/18 12/27/18 02:45 02:45 02:45 WBC RBC Hgb Hct MCV MCH MCHC RDW Std Deviation RDW Coeff of Kandi Plt Count MPV Immature Gran % (Auto) Neut % (Auto) Lymph % (Auto) [place] % (Auto) Eos % (Auto) Baso % (Auto) Absolute Neuts (auto) Absolute Lymphs (auto) Nucleated RBC % ESR Sodium Potassium Chloride Carbon Dioxide Anion Gap BUN Creatinine Estim Creat Clear Calc Est GFR (MDRD) Af Amer Est GFR (MDRD) Non-Af BUN/Creatinine Ratio Glucose Lactic Acid Calcium Ionized Calcium Cancelled Iron TIBC Iron Saturation Ferritin C-React Prot Ext Range Albumin Urine Color Urine Clarity Urine pH Ur Specific Grants Urine Protein Urine Glucose (UA) Urine Ketones Urine Occult Blood Urine Nitrite Urine Bilirubin Urine Urobilinogen Ur Leukocyte Esterase Urine RBC Urine WBC Ur Squamous Epith Cells Urine Bacteria Urine Mucus Urine Osmolality 282 Ur Random Sodium Urine Creatinine < 13.00 S.aureus Protein A PCR MRSA (PCR) 12/27/18 12/27/18 12/27/18 02:45 05:00 05:00 WBC 18.7 H RBC 2.56 L Hgb 7.6 L Hct 23.9 L MCV 93.4 MCH 29.7 MCHC 31.8 L RDW Std Deviation 55.5 H RDW Coeff of Kandi 16.3 H Plt Count 371 MPV 9.3 Immature Gran % (Auto) 2.200 H Neut % (Auto) 86.6 H Lymph % (Auto) 4.2 L [place] % (Auto) 4.6 Eos % (Auto) 2.2 Baso % (Auto) 0.2 Absolute Neuts (auto) 16.2 H Absolute Lymphs (auto) 0.78 L Nucleated RBC % 0 ESR Sodium 132 L Potassium 4.5 Chloride 104 Carbon Dioxide 12.0 L Anion Gap 16 H BUN 109 H* Creatinine 3.81 H Estim Creat Clear Calc 11.02 Est GFR (MDRD) Af Amer 15 L Est GFR (MDRD) Non-Af 12 L BUN/Creatinine Ratio 28.6 H Glucose 138 H Lactic Acid Calcium 7.2 L Ionized Calcium Iron 32 L TIBC 104 L Iron Saturation 30.8 Ferritin 891 H C-React Prot Ext Range Albumin Urine Color Urine Clarity Urine pH Ur Specific Grants Urine Protein Urine Glucose (UA) Urine Ketones Urine Occult Blood Urine Nitrite Urine Bilirubin Urine Urobilinogen Ur Leukocyte Esterase Urine RBC Urine WBC Ur Squamous Epith Cells Urine Bacteria Urine Mucus Urine Osmolality Ur Random Sodium 84 Urine Creatinine S.aureus Protein A PCR MRSA (PCR) 12/27/18 11:05 WBC RBC Hgb Hct MCV MCH MCHC RDW Std Deviation RDW Coeff of Kandi Plt Count MPV Immature Gran % (Auto) Neut % (Auto) Lymph % (Auto) [place] % (Auto) Eos % (Auto) Baso % (Auto) Absolute Neuts (auto) Absolute Lymphs (auto) Nucleated RBC % ESR Sodium Potassium Chloride Carbon Dioxide Anion Gap BUN Creatinine Estim Creat Clear Calc Est GFR (MDRD) Af Amer Est GFR (MDRD) Non-Af BUN/Creatinine Ratio Glucose Lactic Acid Calcium Ionized Calcium Iron TIBC Iron Saturation Ferritin C-React Prot Ext Range Albumin Urine Color Urine Clarity Urine pH Ur Specific Grants Urine Protein Urine Glucose (UA) Urine Ketones Urine Occult Blood Urine Nitrite Urine Bilirubin Urine Urobilinogen Ur Leukocyte Esterase Urine RBC Urine WBC Ur Squamous Epith Cells Urine Bacteria Urine Mucus Urine Osmolality Ur Random Sodium Urine Creatinine S.aureus Protein A PCR Pending MRSA (PCR) Pending POC Glucose 12/27/18 08:02 POC Glucose 139 H Assessment/Plan All Active Problems (Last Reviewed 12/27/18 @ 00:34 by Jaison Lopez MD) Acute kidney failure (Acute) Septic shock (Acute) Severe sepsis (Acute) Hyperkalemia (Acute) Acute hyperkalemia (Acute) Acute kidney failure (Acute) Metabolic acidemia (Acute) Anemia (Acute) Severe sepsis (Acute) Complicated urinary tract infection (Acute) 1-acute kidney injury and chronic kidney disease. Patient had acute kidney injury in July 2018 due to sepsis induced ATN. Kidney function then improved and creatinine was 1.1 mg/dL in August 14. Patient presented with creatinine 4.2 mg/dL. FeNa is very high at 19% pointing toward post renal obstruction. Patient is at high risk for post renal obstruction since she has history of neurogenic bladder with suprapubic catheter. The catheter was changed yesterday. Patient also received 3 L of IV normal saline. Creatinine improved to 3.8 mg deciliter. Patient also could have component of dehydration. No need for renal replacement therapy. Hyperkalemia resolved with medical treatment. Acidosis better. Patient is making urine. Please keep mean arterial pressure more than 65. Avoid nephrotoxic's like NSAIDs and IV contrast exposure. Will follow renal function panel. 2-hyperkalemia from acidosis and acute kidney injury. Creatinine peaked at 6.7 and resolved with medical treatment. Potassium today 4.5. 3-high anion gap metabolic acidosis from uremia and lactic acidosis. Improved. Lactic acid level is trending down. I will start the patient isotonic sodium bicarb drip at 100 cc/h. 4-septic shock from UTI/ostium mellitus with sacral bone.hemodynamic support as per ICU team. Antibiotics as per ID. Please dose antibiotics for the current creatinine clearance. Thank you for allowing me to participate in Ms. Kasper's care. Please call if any question or concern at [phone]. I will discuss the plan of care with Dr. Connell the ICU attending. Plan of care was discussed with Dr. Tavares Joy MD
--- NOTE | 2018-12-27 11:54 | CT_ITS ---
STUDY: CT PELVIS WITHOUT CONTRAST REASON FOR EXAM: Female, 68 years old. R/O SACRAL OSTEOMYLITIS, STAGE 4 WOUND RADIATION DOSAGE (If Supplied By Facility): CTDIvol = ( 28.21 ) mGy, DLP = ( 1032.15 ) mGycm TECHNIQUE: Transaxial imaging of the pelvis was performed with oral contrast, and without intravenous administration of contrast material. Individualized dose optimization techniques were used for this CT. COMPARISON: 08/13/2018. FINDINGS: Multiple extreme decubitus ulcers are seen. There is one related to the lower sacrum and coccyx where there is complete exposure of the bone surfaces to the environment. By definition this is osteomyelitis. Since prior exam there has been prominent further destruction of the coccyx and sacrum. Coccyx is now completely absent as is the S5 segment, whereas previously the S5 segment was intact. This is consistent with either debridement or progression of destructive osteomyelitis. Extremely deep decubitus ulcers extend down to the ischial tuberosities bilaterally, left larger than right. Again, the lesions appear to extend directly to the bone surfaces which is diagnostic of osteomyelitis. These are grossly stable since prior study. Stable appearance of degenerative changes of the lumbar spine and hips. Grossly stable soft tissues with marked diffuse atrophy of the muscular structures and no evidence for abscess. No gross free fluid. There is rectal prolapse. CT/Pelvis without IV Contrast IMPRESSION: Marked progression of sacral decubitus since previous study with osteolytic destruction of the coccyx and the S5 segment indicating osteomyelitis. Continued extremely deep bilateral decubitus ulcers extending to both ischial tuberosities. Electronically Signed: Maynor Solis MD at 16:50 EDT , Service support ,
[2018-12-27 12:21] LABS: Bedside Glucose 158 mg/dL (70-110)
--- NOTE | 2018-12-27 12:45 | NURSING ---
Ultrasound at bedside.
[2018-12-27 12:53] LABS: M R Staph aureus DNA By PCR POSITIVE (Negative); Probe Check PASS; Staph aureus DNA By PCR POSITIVE (Negative)
--- NOTE | 2018-12-27 13:42 | PCM.HP.ID ---
Reason for Consult: sepsis Consulted by: Dr. Chapin History of Present Illness: The patient is a 68 year old F with chronic pelvic ulcers and h/o osteo, transferred here from [facility] 12/26 with acute onset of not feeling well, HIMANSHU, altered mental status. Denies any abd pain, no cough or SOB, no n/v/d, no dysuria, no changes to her ulcers. Follows at wound care center here. Found to have septic shock, admitted to icu on levophed, linezolid, and meropenem. Neph consulted. Feeling a little better. Full ROS performed and neg except as noted above. - Medical History Past Medical History (Chronic Problems): Chronic Problems (Last Reviewed 12/27/18 @ 00:34 by Jaison Lopez MD) Diabetic ulcer of right foot with necrosis of muscle (Chronic) lateral aspect at 5th metatarsal Chronic osteomyelitis of left pelvic region (Chronic) Stage IV pressure ulcer of sacral region (Chronic) Right ischial pressure sore, stage 4 (Chronic) Infected decubitus ulcer (Chronic) Open wound of left thigh (Chronic) traumatic skin tear posterior thigh Incompetent urethral closure mechanism (Chronic) Neurogenic bladder (Chronic) Stage II pressure ulcer (Chronic) Chronic suprapubic catheter (Chronic) Diabetes mellitus type 2 in nonobese (Chronic) Hypertension (Chronic) Gout (Chronic) with arthropathy Pressure ulcer of left buttock, stage 3 (Chronic) left lower buttock/upper thigh area Diabetes mellitus (Chronic) Pressure ulcer of right buttock, stage 3 (Chronic) Diabetic neuropathy, type II diabetes mellitus (Chronic) Malnutrition (Chronic) Back pain (Chronic) Arthritis (Chronic) 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 significance to followup Anemia of chronic disease (Chronic) Physical deconditioning (Chronic) Dupuytren's contracture of right hand (Chronic) Spinal stenosis (Chronic) Hyperlipidemia (Chronic) RP (rectal prolapse) (Chronic) Allergies/Adverse Reactions: Allergies No Known Allergies Allergy (Verified 08/16/18 13:05) Home Medications: Ambulatory Orders Medication Instructions Recorded Allopurinol [Zyloprim] 200 mg PO DAILY 07/05/14 Multivitamins,Therapeutic 1 tab PO DAILY 07/05/14 [Multivitamin] Timolol Maleate [Timoptic-XE 0.5%] 1 drp EACH EYE DAILY 07/05/14 Ascorbic Acid [Vitamin C] 500 mg PO DAILY@0800 09/09/17 metFORMIN HCl [Glucophage] 1,000 mg PO BID 02/26/18 Gabapentin [Neurontin] 200 mg PO TID 06/16/18 Lactobacillus Acidophilus 1 cap PO DAILY 06/16/18 [Acidophilus] Linagliptin [Tradjenta] 5 mg PO DAILY 06/16/18 Polyethylene Glycol 3350 [Miralax] 17 gm PO DAILY 06/16/18 Insulin Lispro [Humalog KwikPen] See Protocol SC ACHS insuln.pen 06/22/18 Citric AC/Gluconolact/Mag Carb 30 ml IR DAILY 07/20/18 [Renacidin Irrigation Solution] Latanoprost 0.005% [Xalatan 1 drop EACH EYE QHS 07/20/18 Opthalmic] Losartan Potassium [Cozaar] 25 mg PO DAILY 08/11/18 Metoprolol Tartrate [Lopressor 25 mg PO BID 08/11/18 (beta honey)] Multivit,Stress Formula/Zinc 1 tab PO BID 08/11/18 [Stress Formula with Zinc Tab] Oxycodone HCl/Acetaminophen 1 tab PO Q4H PRN PRN #10 tab 08/14/18 [Percocet 5-325 mg Tablet] Oxybutynin Chloride [Oxybutynin 5 mg PO DAILY 12/26/18 Chloride ER] - Social History SMOKING STATUS:: Never smoker Vital Signs Temp Pulse Resp BP Pulse Ox 98.9 F 96 16 109/60 102 12/27/18 12:00 12/27/18 13:15 12/27/18 12:30 12/27/18 13:15 12/27/18 12:00 Oxygen Flow Rate (L/min) 4 Oxygen Delivery Method Room Air Weight: 68.2 kg Body Mass Index (BMI) 27.5 Finger Stick Blood Glucose 154 Laboratory Tests Past 24 Hrs 12/26/18 12/26/18 12/26/18 20:10 20:10 20:10 WBC 12.7 H RBC 2.57 L Hgb 7.6 L Hct 24.1 L MCV 93.8 MCH 29.6 MCHC 31.5 L RDW Std Deviation 55.5 H RDW Coeff of Kandi 16.0 H Plt Count 293 MPV 9.3 Immature Gran % (Auto) 0.900 Neut % (Auto) 87.3 H Lymph % (Auto) 4.8 L [place] % (Auto) 5.0 Eos % (Auto) 1.8 Baso % (Auto) 0.2 Absolute Neuts (auto) 11.1 H Absolute Lymphs (auto) 0.61 L Nucleated RBC % 0 ESR Sodium 129 L Potassium 5.7 H Chloride 100 Carbon Dioxide 11.0 L Anion Gap 18 H BUN 121 H* Creatinine 4.20 H Estim Creat Clear Calc 10.00 Est GFR (MDRD) Af Amer 14 L Est GFR (MDRD) Non-Af 11 L BUN/Creatinine Ratio 28.8 H Glucose 90 Lactic Acid 3.4 H Calcium 7.7 L Ionized Calcium Iron TIBC Iron Saturation Ferritin C-React Prot Ext Range Albumin Urine Color Urine Clarity Urine pH Ur Specific [place] Urine Protein Urine Glucose (UA) Urine Ketones Urine Occult Blood Urine Nitrite Urine Bilirubin Urine Urobilinogen Ur Leukocyte Esterase Urine RBC Urine WBC Ur Squamous Epith Cells Urine Bacteria Urine Mucus Urine Osmolality Ur Random Sodium Urine Creatinine S.aureus Protein A PCR MRSA (PCR) 12/26/18 12/26/18 12/27/18 20:10 20:20 01:05 WBC RBC Hgb Hct MCV MCH MCHC RDW Std Deviation RDW Coeff of Kandi Plt Count MPV Immature Gran % (Auto) Neut % (Auto) Lymph % (Auto) [place] % (Auto) Eos % (Auto) Baso % (Auto) Absolute Neuts (auto) Absolute Lymphs (auto) Nucleated RBC % ESR Sodium Potassium Chloride Carbon Dioxide Anion Gap BUN Creatinine Estim Creat Clear Calc Est GFR (MDRD) Af Amer Est GFR (MDRD) Non-Af BUN/Creatinine Ratio Glucose Lactic Acid 2.5 H Calcium Ionized Calcium Iron TIBC Iron Saturation Ferritin C-React Prot Ext Range Albumin 1.7 L Urine Color Yellow Urine Clarity Sl. Cloudy Urine pH 6.0 Ur Specific [place] 1.010 Urine Protein 100 H Urine Glucose (UA) Normal Urine Ketones Negative Urine Occult Blood 250 H Urine Nitrite Negative Urine Bilirubin Negative Urine Urobilinogen Normal Ur Leukocyte Esterase 500 H Urine RBC 5-10 SEEN Urine WBC 25-50 SEEN Ur Squamous Epith Cells 10-25 SEEN Urine Bacteria 1+ Urine Mucus 0 SEEN Urine Osmolality Ur Random Sodium Urine Creatinine S.aureus Protein A PCR MRSA (PCR) 12/27/18 12/27/18 12/27/18 02:45 02:45 02:45 WBC RBC Hgb Hct MCV MCH MCHC RDW Std Deviation RDW Coeff of Kandi Plt Count MPV Immature Gran % (Auto) Neut % (Auto) Lymph % (Auto) [place] % (Auto) Eos % (Auto) Baso % (Auto) Absolute Neuts (auto) Absolute Lymphs (auto) Nucleated RBC % ESR 108 H Sodium 133 L Potassium 5.3 H Chloride 106 Carbon Dioxide 12.0 L Anion Gap 15 BUN 110 H* Creatinine 3.95 H Estim Creat Clear Calc 10.63 Est GFR (MDRD) Af Amer 14 L Est GFR (MDRD) Non-Af 12 L BUN/Creatinine Ratio 27.8 H Glucose 86 Lactic Acid Calcium 7.1 L Ionized Calcium Iron TIBC Iron Saturation Ferritin C-React Prot Ext Range 268.00 H Albumin 1.6 L Urine Color Urine Clarity Urine pH Ur Specific [place] Urine Protein Urine Glucose (UA) Urine Ketones Urine Occult Blood Urine Nitrite Urine Bilirubin Urine Urobilinogen Ur Leukocyte Esterase Urine RBC Urine WBC Ur Squamous Epith Cells Urine Bacteria Urine Mucus Urine Osmolality Ur Random Sodium Urine Creatinine S.aureus Protein A PCR MRSA (PCR) 12/27/18 12/27/18 12/27/18 02:45 02:45 02:45 WBC RBC Hgb Hct MCV MCH MCHC RDW Std Deviation RDW Coeff of Kandi Plt Count MPV Immature Gran % (Auto) Neut % (Auto) Lymph % (Auto) [place] % (Auto) Eos % (Auto) Baso % (Auto) Absolute Neuts (auto) Absolute Lymphs (auto) Nucleated RBC % ESR Sodium Potassium Chloride Carbon Dioxide Anion Gap BUN Creatinine Estim Creat Clear Calc Est GFR (MDRD) Af Amer Est GFR (MDRD) Non-Af BUN/Creatinine Ratio Glucose Lactic Acid Calcium Ionized Calcium Cancelled Iron TIBC Iron Saturation Ferritin C-React Prot Ext Range Albumin Urine Color Urine Clarity Urine pH Ur Specific [place] Urine Protein Urine Glucose (UA) Urine Ketones Urine Occult Blood Urine Nitrite Urine Bilirubin Urine Urobilinogen Ur Leukocyte Esterase Urine RBC Urine WBC Ur Squamous Epith Cells Urine Bacteria Urine Mucus Urine Osmolality 282 Ur Random Sodium Urine Creatinine < 13.00 S.aureus Protein A PCR MRSA (PCR) 12/27/18 12/27/18 12/27/18 02:45 05:00 05:00 WBC 18.7 H RBC 2.56 L Hgb 7.6 L Hct 23.9 L MCV 93.4 MCH 29.7 MCHC 31.8 L RDW Std Deviation 55.5 H RDW Coeff of Kandi 16.3 H Plt Count 371 MPV 9.3 Immature Gran % (Auto) 2.200 H Neut % (Auto) 86.6 H Lymph % (Auto) 4.2 L [place] % (Auto) 4.6 Eos % (Auto) 2.2 Baso % (Auto) 0.2 Absolute Neuts (auto) 16.2 H Absolute Lymphs (auto) 0.78 L Nucleated RBC % 0 ESR Sodium 132 L Potassium 4.5 Chloride 104 Carbon Dioxide 12.0 L Anion Gap 16 H BUN 109 H* Creatinine 3.81 H Estim Creat Clear Calc 11.02 Est GFR (MDRD) Af Amer 15 L Est GFR (MDRD) Non-Af 12 L BUN/Creatinine Ratio 28.6 H Glucose 138 H Lactic Acid Calcium 7.2 L Ionized Calcium Iron 32 L TIBC 104 L Iron Saturation 30.8 Ferritin 891 H C-React Prot Ext Range Albumin Urine Color Urine Clarity Urine pH Ur Specific [place] Urine Protein Urine Glucose (UA) Urine Ketones Urine Occult Blood Urine Nitrite Urine Bilirubin Urine Urobilinogen Ur Leukocyte Esterase Urine RBC Urine WBC Ur Squamous Epith Cells Urine Bacteria Urine Mucus Urine Osmolality Ur Random Sodium 84 Urine Creatinine S.aureus Protein A PCR MRSA (PCR) 12/27/18 11:05 WBC RBC Hgb Hct MCV MCH MCHC RDW Std Deviation RDW Coeff of Kandi Plt Count MPV Immature Gran % (Auto) Neut % (Auto) Lymph % (Auto) [place] % (Auto) Eos % (Auto) Baso % (Auto) Absolute Neuts (auto) Absolute Lymphs (auto) Nucleated RBC % ESR Sodium Potassium Chloride Carbon Dioxide Anion Gap BUN Creatinine Estim Creat Clear Calc Est GFR (MDRD) Af Amer Est GFR (MDRD) Non-Af BUN/Creatinine Ratio Glucose Lactic Acid Calcium Ionized Calcium Iron TIBC Iron Saturation Ferritin C-React Prot Ext Range Albumin Urine Color Urine Clarity Urine pH Ur Specific [place] Urine Protein Urine Glucose (UA) Urine Ketones Urine Occult Blood Urine Nitrite Urine Bilirubin Urine Urobilinogen Ur Leukocyte Esterase Urine RBC Urine WBC Ur Squamous Epith Cells Urine Bacteria Urine Mucus Urine Osmolality Ur Random Sodium Urine Creatinine S.aureus Protein A PCR POSITIVE H MRSA (PCR) POSITIVE H - Other Studies Radiology: [] reviewed Other Studies: [] Route of nutrition/ use of supplements: [] Nutritional Intake: [] IV Site: [] Rea Catheter: [] - Physical Exam General: Alert, Oriented x3, Cooperative, No apparent distress, - - ill appearing HEENT: Atraumatic, PERRLA, EOMI Neck: Supple, No Nodes Lungs: Clear to auscultation, Normal air movement Cardiovascular: Tachycardic Abdomen: Soft, Non Tender, Non-Distended Extremities: No edema Skin: Ulcer/ Wound - reviewed photos IV Site: Central Line, without redness Musculoskeletal: No Tenderness to Palpation of Joints or Extremities Neurological: Cranial nerves II-XII grossly intact - Assessment/Plan Antibiotics: [] Assessment/Plan: [] Active and Suspected Problems (Last Reviewed 12/27/18 @ 00:34 by Jaison Lopez MD) Acute kidney failure (Acute) Septic shock (Acute) Severe sepsis (Acute) septic shock with HIMANSHU - will check CT pelvis. UA with some pyuria. Cont linezolid and meropenem. Has had prior growth in past year of GNRs, MRSA, AcB, actinomyces, VRE, and anaerobes. Will follow. Thank you.
--- NOTE | 2018-12-27 14:45 | NURSING ---
Pt transported to CT Scan by Nicolasa HEARD
[2018-12-27] MEDS: Glucerna Shake 120 ML LIQUID PO ×2 (15:56→22:25)
[2018-12-27 17:01] LABS: Bedside Glucose 145 mg/dL (70-110)
[2018-12-27] MEDS: Latanoprost 0.005% 1 Bottle 1 DRP EACH EYE (22:22)
[2018-12-27 23:06] LABS: Bedside Glucose 140 mg/dL (70-110)
[2018-12-28] VITALS (36 sets, daily range): BP systolic 91–121; BP diastolic 47–73; PULSE 89–106; RESP 10–22; TEMP 35.4–37.2; O2SAT 96–100
[2018-12-28] MEDS: Gabapentin 100 MG Capsule PO ×3 (05:06→21:42)
[2018-12-28 05:28] LABS: Absolute Lymphocyte Count 0.58 X10^3/uL (0.83-4.51); Absolute Neutrophil Count 7.7 X10^3/uL (2.0-7.7); Basophil# 0.02 X10^3/uL; Basophil% 0.2 % (0-1); Eosinophil# 0.38 X10^3/uL; Hematocrit 20.8 % (37-47); Hemoglobin 6.9 g/dL (12.0-15.0); Lymphocyte # 0.58 X10^3/ul (4.0); Lymphocyte % 6.1 % (19-41); Mean Corp Hgb Conc 33.2 g/dL (32-36); Mean Corpuscular Volume 90.4 fL (81-99); Mean Platelet Vol. 9.4 fl (6.2-12.0); Monocyte# 0.45 X10^3/uL; Monocyte% 4.7 % (0-10); NRBC Flagged by Analyzer 0 % (0-5); Neutrophil # 7.68 X10^3/uL (2.7-7.7); Neutrophil % 81.1 % (47-70); POSITIVE DIFFERENTIAL YES; Platelet Count 285 K/mm3 (150-450); RBC Distribution Width CV 16.3 % (11.6-14.6); RBC Distribution Width SD 53.5 fl (35.1-43.9); White Blood Count 9.5 K/mm3 (4.4-11.0)
[2018-12-28 05:36] LABS: Differential Indicated SCAN CRITERIA MET
[2018-12-28 05:54] LABS: Anion Gap 16 (5-15); BUN 108 mg/dL (7-18); BUN/Creat Ratio 29.1 RATIO (10-20); Calcium,Total 6.9 mg/dL (8.5-10.1); Chloride 101 mmol/L (98-107); Creatinine, Serum 3.71 mg/dL (0.55-1.02); EST Glomerular Filtration Rate 13 mL/min (>60); Est Glom Filt Rate - Afr Amer 16 mL/min (>60); Estimated Creatinine Clearance 11.32 ml/min; Glucose 139 mg/dL (74-106); Potassium 3.5 mmol/L (3.5-5.1); Sodium Level 136 mmol/L (136-145)
--- NOTE | 2018-12-28 07:10 | PN_ITS ---
Subjective: The patient was seen and examined at the bedside this morning. Events from the last 24 hours have been reviewed. The patient is currently afebrile, hemodynamically stable and maintaining appropriate oxygen saturations on room air. The patient's Levophed was able to be weaned off completely at approximately 2 AM this morning. She has had rather labile blood pressures while sleeping, which tend to improve when she is awake. The patient's CT pelvis completed yesterday afternoon revealed findings concerning for worsening/progression of her decubitus ulcers and further osteolytic destruction. Hemoglobin has continued to trend down this morning to 6.9 g/dL. Serum bicarbonate has improved to 19. BUN remains elevated at 108. Creatinine is slowly improving and was noted to be 3.7 this morning. The patient is currently documented to be overall net +3.4 L for the admission. Objective: The patient's most recent lab work, culture data and imaging studies have all been personally reviewed. Surface echocardiogram from June 2018 revealed normal LV size and function with an ejection fraction of 60% and stage I diastolic dysfunction. Pulmonary artery systolic pressure was estimated to be 42 mmHg. Renal ultrasound revealed no acute abnormality and no evidence of hydronephrosis. CT pelvis completed on December 27 revealed marked progression of the sacral decubitus since the patient's prior imaging study along with osteolytic destruction of the coccyx and S5 segment consistent with osteomyelitis. Wound, blood and urine cultures are pending. General: Alert, Cooperative, - - Chronically ill in appearance HEENT: Atraumatic, PERRLA, Normocephalic Oral: No Gingival or Mucosal Lesions/ Ulcerations Neck: Supple, No Nodes, Trachea Midline Lungs: No rhonchi, No wheeze, No rales Cardiovascular: Regular rate, Regular Rhythm, Normal S1, Normal S2, No murmurs Abdomen: Bowel Sounds Present, Soft, Non Tender, - - + Ostomy Extremities: No clubbing, No cyanosis Skin: Ulcer/ Wound - Present on Admission Musculoskeletal: Muscle Wasting Lymphatic: No Cervical, Supraclavicular, or Inguinal Adenopathy Neurological: Neuro grossly intact Psych/Mental Status: Normal Affect, Appropriate Vital Signs Temp Pulse Resp BP Pulse Ox 98.7 F 97 13 102/65 98 12/28/18 04:00 12/28/18 06:00 12/28/18 06:00 12/28/18 06:00 12/28/18 06:00 Oxygen Flow Rate (L/min) 4 Oxygen Delivery Method Room Air Weight: 160 lb 11.472 oz Body Mass Index (BMI) 27.5 Finger Stick Blood Glucose 154 Intake and Output for Last 24 Hours 12/26/18 12/27/18 12/28/18 23:59 23:59 23:59 Intake Total 2295 / 2295 5369.57 / 5508.37 681.73 / 681.73 Output Total 700 / 850 3350 / 3700 850 / 850 Balance 1595 / 1445 2019.57 / 1808.37 -168.27 / -168.27 Labs (Last 48 Hours) 12/26/18 12/26/18 12/26/18 20:10 20:10 20:10 WBC 12.7 H RBC 2.57 L Hgb 7.6 L Hct 24.1 L MCV 93.8 MCH 29.6 MCHC 31.5 L RDW Std Deviation 55.5 H RDW Coeff of Kandi 16.0 H Plt Count 293 MPV 9.3 Immature Gran % (Auto) 0.900 Neut % (Auto) 87.3 H Lymph % (Auto) 4.8 L [place] % (Auto) 5.0 Eos % (Auto) 1.8 Baso % (Auto) 0.2 Absolute Neuts (auto) 11.1 H Absolute Lymphs (auto) 0.61 L Nucleated RBC % 0 ESR Sodium 129 L Potassium 5.7 H Chloride 100 Carbon Dioxide 11.0 L Anion Gap 18 H BUN 121 H* Creatinine 4.20 H Estim Creat Clear Calc 10.00 Est GFR (MDRD) Af Amer 14 L Est GFR (MDRD) Non-Af 11 L BUN/Creatinine Ratio 28.8 H Glucose 90 Lactic Acid 3.4 H Calcium 7.7 L Ionized Calcium Iron TIBC Iron Saturation Ferritin C-React Prot Ext Range Albumin Urine Color Urine Clarity Urine pH Ur Specific [place] Urine Protein Urine Glucose (UA) Urine Ketones Urine Occult Blood Urine Nitrite Urine Bilirubin Urine Urobilinogen Ur Leukocyte Esterase Urine RBC Urine WBC Ur Squamous Epith Cells Urine Bacteria Urine Mucus Urine Osmolality Ur Random Sodium Urine Creatinine S.aureus Protein A PCR MRSA (PCR) POC Glucose 12/26/18 12/26/18 12/27/18 20:10 20:20 01:05 WBC RBC Hgb Hct MCV MCH MCHC RDW Std Deviation RDW Coeff of Kandi Plt Count MPV Immature Gran % (Auto) Neut % (Auto) Lymph % (Auto) [place] % (Auto) Eos % (Auto) Baso % (Auto) Absolute Neuts (auto) Absolute Lymphs (auto) Nucleated RBC % ESR Sodium Potassium Chloride Carbon Dioxide Anion Gap BUN Creatinine Estim Creat Clear Calc Est GFR (MDRD) Af Amer Est GFR (MDRD) Non-Af BUN/Creatinine Ratio Glucose Lactic Acid 2.5 H Calcium Ionized Calcium Iron TIBC Iron Saturation Ferritin C-React Prot Ext Range Albumin 1.7 L Urine Color Yellow Urine Clarity Sl. Cloudy Urine pH 6.0 Ur Specific [place] 1.010 Urine Protein 100 H Urine Glucose (UA) Normal Urine Ketones Negative Urine Occult Blood 250 H Urine Nitrite Negative Urine Bilirubin Negative Urine Urobilinogen Normal Ur Leukocyte Esterase 500 H Urine RBC 5-10 SEEN Urine WBC 25-50 SEEN Ur Squamous Epith Cells 10-25 SEEN Urine Bacteria 1+ Urine Mucus 0 SEEN Urine Osmolality Ur Random Sodium Urine Creatinine S.aureus Protein A PCR MRSA (PCR) POC Glucose 12/27/18 12/27/18 12/27/18 02:45 02:45 02:45 WBC RBC Hgb Hct MCV MCH MCHC RDW Std Deviation RDW Coeff of Kandi Plt Count MPV Immature Gran % (Auto) Neut % (Auto) Lymph % (Auto) [place] % (Auto) Eos % (Auto) Baso % (Auto) Absolute Neuts (auto) Absolute Lymphs (auto) Nucleated RBC % ESR 108 H Sodium 133 L Potassium 5.3 H Chloride 106 Carbon Dioxide 12.0 L Anion Gap 15 BUN 110 H* Creatinine 3.95 H Estim Creat Clear Calc 10.63 Est GFR (MDRD) Af Amer 14 L Est GFR (MDRD) Non-Af 12 L BUN/Creatinine Ratio 27.8 H Glucose 86 Lactic Acid Calcium 7.1 L Ionized Calcium Iron TIBC Iron Saturation Ferritin C-React Prot Ext Range 268.00 H Albumin 1.6 L Urine Color Urine Clarity Urine pH Ur Specific [place] Urine Protein Urine Glucose (UA) Urine Ketones Urine Occult Blood Urine Nitrite Urine Bilirubin Urine Urobilinogen Ur Leukocyte Esterase Urine RBC Urine WBC Ur Squamous Epith Cells Urine Bacteria Urine Mucus Urine Osmolality Ur Random Sodium Urine Creatinine S.aureus Protein A PCR MRSA (PCR) POC Glucose 12/27/18 12/27/18 12/27/18 02:45 02:45 02:45 WBC RBC Hgb Hct MCV MCH MCHC RDW Std Deviation RDW Coeff of Kandi Plt Count MPV Immature Gran % (Auto) Neut % (Auto) Lymph % (Auto) [place] % (Auto) Eos % (Auto) Baso % (Auto) Absolute Neuts (auto) Absolute Lymphs (auto) Nucleated RBC % ESR Sodium Potassium Chloride Carbon Dioxide Anion Gap BUN Creatinine Estim Creat Clear Calc Est GFR (MDRD) Af Amer Est GFR (MDRD) Non-Af BUN/Creatinine Ratio Glucose Lactic Acid Calcium Ionized Calcium Pending Iron TIBC Iron Saturation Ferritin C-React Prot Ext Range Albumin Urine Color Urine Clarity Urine pH Ur Specific [place] Urine Protein Urine Glucose (UA) Urine Ketones Urine Occult Blood Urine Nitrite Urine Bilirubin Urine Urobilinogen Ur Leukocyte Esterase Urine RBC Urine WBC Ur Squamous Epith Cells Urine Bacteria Urine Mucus Urine Osmolality 282 Ur Random Sodium Urine Creatinine < 13.00 S.aureus Protein A PCR MRSA (PCR) POC Glucose 12/27/18 12/27/18 12/27/18 02:45 05:00 05:00 WBC 18.7 H RBC 2.56 L Hgb 7.6 L Hct 23.9 L MCV 93.4 MCH 29.7 MCHC 31.8 L RDW Std Deviation 55.5 H RDW Coeff of Kandi 16.3 H Plt Count 371 MPV 9.3 Immature Gran % (Auto) 2.200 H Neut % (Auto) 86.6 H Lymph % (Auto) 4.2 L [place] % (Auto) 4.6 Eos % (Auto) 2.2 Baso % (Auto) 0.2 Absolute Neuts (auto) 16.2 H Absolute Lymphs (auto) 0.78 L Nucleated RBC % 0 ESR Sodium 132 L Potassium 4.5 Chloride 104 Carbon Dioxide 12.0 L Anion Gap 16 H BUN 109 H* Creatinine 3.81 H Estim Creat Clear Calc 11.02 Est GFR (MDRD) Af Amer 15 L Est GFR (MDRD) Non-Af 12 L BUN/Creatinine Ratio 28.6 H Glucose 138 H Lactic Acid Calcium 7.2 L Ionized Calcium Iron 32 L TIBC 104 L Iron Saturation 30.8 Ferritin 891 H C-React Prot Ext Range Albumin Urine Color Urine Clarity Urine pH Ur Specific [place] Urine Protein Urine Glucose (UA) Urine Ketones Urine Occult Blood Urine Nitrite Urine Bilirubin Urine Urobilinogen Ur Leukocyte Esterase Urine RBC Urine WBC Ur Squamous Epith Cells Urine Bacteria Urine Mucus Urine Osmolality Ur Random Sodium 84 Urine Creatinine S.aureus Protein A PCR MRSA (PCR) POC Glucose 12/27/18 12/27/18 12/27/18 08:02 11:05 12:15 WBC RBC Hgb Hct MCV MCH MCHC RDW Std Deviation RDW Coeff of Kandi Plt Count MPV Immature Gran % (Auto) Neut % (Auto) Lymph % (Auto) [place] % (Auto) Eos % (Auto) Baso % (Auto) Absolute Neuts (auto) Absolute Lymphs (auto) Nucleated RBC % ESR Sodium Potassium Chloride Carbon Dioxide Anion Gap BUN Creatinine Estim Creat Clear Calc Est GFR (MDRD) Af Amer Est GFR (MDRD) Non-Af BUN/Creatinine Ratio Glucose Lactic Acid Calcium Ionized Calcium Iron TIBC Iron Saturation Ferritin C-React Prot Ext Range Albumin Urine Color Urine Clarity Urine pH Ur Specific [place] Urine Protein Urine Glucose (UA) Urine Ketones Urine Occult Blood Urine Nitrite Urine Bilirubin Urine Urobilinogen Ur Leukocyte Esterase Urine RBC Urine WBC Ur Squamous Epith Cells Urine Bacteria Urine Mucus Urine Osmolality Ur Random Sodium Urine Creatinine S.aureus Protein A PCR POSITIVE H MRSA (PCR) POSITIVE H POC Glucose 139 H 158 H 12/27/18 12/27/18 12/28/18 16:57 22:07 05:05 WBC 9.5 RBC 2.30 L Hgb 6.9 L Hct 20.8 L MCV 90.4 MCH 30.0 MCHC 33.2 RDW Std Deviation 53.5 H RDW Coeff of Kandi 16.3 H Plt Count 285 MPV 9.4 Immature Gran % (Auto) 3.900 H Neut % (Auto) 81.1 H Lymph % (Auto) 6.1 L [place] % (Auto) 4.7 Eos % (Auto) 4.0 Baso % (Auto) 0.2 Absolute Neuts (auto) 7.7 Absolute Lymphs (auto) 0.58 L Nucleated RBC % 0 ESR Sodium Potassium Chloride Carbon Dioxide Anion Gap BUN Creatinine Estim Creat Clear Calc Est GFR (MDRD) Af Amer Est GFR (MDRD) Non-Af BUN/Creatinine Ratio Glucose Lactic Acid Calcium Ionized Calcium Iron TIBC Iron Saturation Ferritin C-React Prot Ext Range Albumin Urine Color Urine Clarity Urine pH Ur Specific [place] Urine Protein Urine Glucose (UA) Urine Ketones Urine Occult Blood Urine Nitrite Urine Bilirubin Urine Urobilinogen Ur Leukocyte Esterase Urine RBC Urine WBC Ur Squamous Epith Cells Urine Bacteria Urine Mucus Urine Osmolality Ur Random Sodium Urine Creatinine S.aureus Protein A PCR MRSA (PCR) POC Glucose 145 H 140 H 12/28/18 05:05 WBC RBC Hgb Hct MCV MCH MCHC RDW Std Deviation RDW Coeff of Kandi Plt Count MPV Immature Gran % (Auto) Neut % (Auto) Lymph % (Auto) [place] % (Auto) Eos % (Auto) Baso % (Auto) Absolute Neuts (auto) Absolute Lymphs (auto) Nucleated RBC % ESR Sodium 136 Potassium 3.5 Chloride 101 Carbon Dioxide 19.0 L Anion Gap 16 H BUN 108 H* Creatinine 3.71 H Estim Creat Clear Calc 11.32 Est GFR (MDRD) Af Amer 16 L Est GFR (MDRD) Non-Af 13 L BUN/Creatinine Ratio 29.1 H Glucose 139 H Lactic Acid Calcium 6.9 L Ionized Calcium Iron TIBC Iron Saturation Ferritin C-React Prot Ext Range Albumin Urine Color Urine Clarity Urine pH Ur Specific [place] Urine Protein Urine Glucose (UA) Urine Ketones Urine Occult Blood Urine Nitrite Urine Bilirubin Urine Urobilinogen Ur Leukocyte Esterase Urine RBC Urine WBC Ur Squamous Epith Cells Urine Bacteria Urine Mucus Urine Osmolality Ur Random Sodium Urine Creatinine S.aureus Protein A PCR MRSA (PCR) POC Glucose Microbiology 12/27/18 11:05 Wound Drainage - Aerobic & Anaerobic Swabs Gram Stain - Final Clinical Impression(s) from Imaging Studies Renal Ultrasound 12/27/18 02:28 IMPRESSION: No acute abnormality. No hydronephrosis. Electronically Signed: Maynor Solis MD at 15:34 EDT , Service support , Chest X-Ray 12/27/18 05:45 IMPRESSION: Central line is in adequate position. No evidence for acute cardiopulmonary pathology. Electronically Signed: Napoleon Corrigan MD at 6:50 EDT , Service support , Pelvis CT 12/27/18 11:54 IMPRESSION: Marked progression of sacral decubitus since previous study with osteolytic destruction of the coccyx and the S5 segment indicating osteomyelitis. Continued extremely deep bilateral decubitus ulcers extending to both ischial tuberosities. Electronically Signed: Maynor Solis MD at 16:50 EDT , Service support , Medical Necessity - Tobacco Use Smoking Status: Never smoker Assessment/Plan All Active Problems (Last Reviewed 12/27/18 @ 00:34 by Jaison Lopez MD) Acute kidney failure (Acute) Septic shock (Acute) Severe sepsis (Acute) Hyperkalemia (Acute) Acute hyperkalemia (Acute) Acute kidney failure (Acute) Metabolic acidemia (Acute) Anemia (Acute) Severe sepsis (Acute) Complicated urinary tract infection (Acute) RECOMMENDATIONS: 1. Continue antimicrobial therapy per infectious diseases recommendations. 2. Continue to monitor in ICU setting yesterday over concerns for labile hemodynamics. 3. Continue physical therapy and nutritional support. 4. Plans to meet with patient and family regarding future goals of care. 5. Given that the patient's hemoglobin is less than 7 g/dL, we will plan to transfuse 2 units of packed red blood cells. 6. Continue supplemental IV fluids per nephrology recommendations. IMPRESSIONS: 1. Septic shock Improving. Clinical concern for underlying infected decubitus ulcer versus urinary tract source of infection. The patient has been successfully weaned fro m vasopressor support. However, CT pelvis did indicate worsening of the patient's decubitus ulcerations with underlying bony destruction. She will remain on broad-spectrum antimicrobial therapy, pending finalized culture data. Infectious diseases is following. We will plan to monitor in ICU setting yet today over concerns for labile hemodynamics. We will plan to meet with the patient and her family this morning to discuss future goals of care, including potential referral to hospice care. 2. Acute kidney injury/hyperkalemia Improving. Continue supplemental IV fluids per nephrology recommendations. Continue to monitor urine output. No current indication for renal replacement therapy. 3. Normocytic anemia The patient has chronic anemia with prior upper and lower endoscopies completed in July 2018 noted to be normal. Given that the patient's hemoglobin was noted to be less than 7 g/dL this morning, we will plan to transfuse packed red blood cells today. Check H&H posttransfusion. There are no occult signs of active blood loss. 4. Heart failure with preserved ejection fraction Recommend judicious use of supplemental IV fluids to prevent volume overloaded state. 5. Chronic decubitus ulcer/malnutrition/diabetes/neuropathy/hypertension Complicates care, management, recovery and prognosis. Nutrition and physical therapy to follow. This note was generated with [employer] dictation software. It may contain incorrect words, spelling, and punctuation that were not noted in checking the note before signing. Code Visit Inpatient E&M: 65411 Subs Hosp L3
[2018-12-28 08:16] LABS: Bedside Glucose 125 mg/dL (70-110)
[2018-12-28] MEDS: DAKIN'S SOL HALF STRENGTH (=0.25%) 1 APPLIC TOPICAL (08:24)
[2018-12-28 08:34] LABS: International Normalized Ratio 1.4; Prothrombin Time (Protime)PT. 17.3 SECONDS (11.7-14.9)
--- NOTE | 2018-12-28 09:03 | PCM.PN.HOSP ---
Patient Problems: Active and Suspected Problems (Last Reviewed 12/27/18 @ 00:34 by Jaison Lopez MD) Acute kidney failure (Acute) Septic shock (Acute) Severe sepsis (Acute) Subjective: Patient seen and examined. He has no active complaints and had an uneventful night. Review of systems otherwise negative. Labs and vitals reviewed. Hyponatremia is resolved with sodium being up to 136 now from 129 on admission. Creatinine has trended down to 3.71. Calcium is down to 6.9 today, though it is within normal limits corrected for albumin, And hemoglobin is also dropped to 6.9. Vitals/I&O's: Vital Signs Temp Pulse Resp BP Pulse Ox 98.0 F 98 18 108/72 100 12/28/18 08:00 12/28/18 08:00 12/28/18 08:00 12/28/18 08:00 12/28/18 08:00 Oxygen Flow Rate (L/min) 4 Oxygen Delivery Method Room Air Weight: 160 lb 11.472 oz Body Mass Index (BMI) 27.5 Finger Stick Blood Glucose 154 Intake and Output for Last 24 Hours 12/26/18 12/27/18 12/28/18 23:59 23:59 23:59 Intake Total 2295 / 2295 5369.57 / 5508.37 681.73 / 681.73 Output Total 700 / 850 3350 / 3700 850 / 850 Balance 1595 / 1445 2019.57 / 1808.37 -168.27 / -168.27 General: Alert, Oriented x3, Cooperative, Lethargic Oral: Dry Mucosa Neck: Supple, No JVD, Negative Carotid Bruits Lungs: Clear to auscultation, Normal air movement, No rhonchi, No wheeze, No rales Cardiovascular: Regular Rhythm, Normal S1, Normal S2, No murmurs, Tachycardic Abdomen: Bowel Sounds Present, Soft, Non Tender, Non-Distended, No Hepato-splenomegaly, - - colostomy bag filled with scant brown stool Extremities: No clubbing, No cyanosis, No edema, Capillary Refill Less than 3 Seconds Skin: No rashes, No breakdown; suprapubic catheter in place Musculoskeletal: No Tenderness to Palpation of Joints or Extremities; very deep stage 4 sacral decubitus ulcers; also on both buttocks Lymphatic: No Cervical, Supraclavicular, or Inguinal Adenopathy Neurological: Cranial nerves II-XII grossly intact, Neuro grossly intact, Motor Exam 5/5 strength throughout Psych/Mental Status: Normal Affect, Appropriate, Alert and oriented to time, place, person, mood and affect Microbiology Past 72 Hours 12/27/18 11:05 Wound Drainage - Aerobic & Anaerobic Swabs Gram Stain - Final Laboratory Results 12/27/18 02:45: Ionized Calcium Pending 12/27/18 11:05: S.aureus Protein A PCR POSITIVE H, MRSA (PCR) POSITIVE H 12/27/18 12:15: POC Glucose 158 H 12/27/18 16:57: POC Glucose 145 H 12/27/18 22:07: POC Glucose 140 H 12/28/18 05:05: WBC 9.5, RBC 2.30 L, Hgb 6.9 L, Hct 20.8 L, MCV 90.4, MCH 30.0, MCHC 33.2, RDW Std Deviation 53.5 H, RDW Coeff of Kandi 16.3 H, Plt Count 285, MPV 9.4, Immature Gran % (Auto) 3.900 H, Neut % (Auto) 81.1 H, Lymph % (Auto) 6.1 L, [place] % (Auto) 4.7, Eos % (Auto) 4.0, Baso % (Auto) 0.2, Absolute Neuts (auto) 7.7, Absolute Lymphs (auto) 0.58 L, Nucleated RBC % 0 12/28/18 05:05: Sodium 136, Potassium 3.5, Chloride 101, Carbon Dioxide 19.0 L, Anion Gap 16 H, BUN 108 H*, Creatinine 3.71 H, Estim Creat Clear Calc 11.32, Est GFR (MDRD) Af Amer 16 L, Est GFR (MDRD) Non-Af 13 L, BUN/Creatinine Ratio 29.1 H, Glucose 139 H, Calcium 6.9 L 12/28/18 07:13: Blood Type Pending, Antibody Screen Pending, Crossmatch See Detail 12/28/18 07:58: POC Glucose 125 H 12/28/18 08:10: Blood Type Cancelled, Antibody Screen Cancelled, Crossmatch See Detail 12/28/18 08:10: PT 17.3 H, INR 1.4 Diagnostic Data Renal Ultrasound 12/27/18 02:28 IMPRESSION: No acute abnormality. No hydronephrosis. Electronically Signed: Maynor Solis MD at 15:34 EDT , Service support , Chest X-Ray 12/27/18 05:45 IMPRESSION: Central line is in adequate position. No evidence for acute cardiopulmonary pathology. Electronically Signed: Napoleon Corrigan MD at 6:50 EDT , Service support , Pelvis CT 12/27/18 11:54 IMPRESSION: Marked progression of sacral decubitus since previous study with osteolytic destruction of the coccyx and the S5 segment indicating osteomyelitis. Continued extremely deep bilateral decubitus ulcers extending to both ischial tuberosities. Electronically Signed: Maynor Solis MD at 16:50 EDT , Service support , Current Medications Acetaminophen (Tylenol) 650 mg PO Q6H PRN PRN PRN Reason: Mild pain 1-3/Temp > 100.7 F Allopurinol (Zyloprim) 200 mg PO DAILYCM [facility] Last Admin: 12/27/18 08:42 Dose: 200 mg Documented by: Ascorbic Acid (Vitamin C) 500 mg PO DAILY@0800 [facility] Last Admin: 12/27/18 08:42 Dose: 500 mg Documented by: Chlorhexidine Gluconate () 1 each TOPICAL DAILY [facility] Dextrose (D50w Syringe) 0 gm IV X1 PRN; Protocol PRN Reason: Hypoglycemia Gabapentin (Neurontin) 100 mg PO TID [facility] Last Admin: 12/28/18 05:06 Dose: 100 mg Documented by: Glucagon () 1 mg IM .X1 PRN PRN Reason: Hypoglycemia Sodium Chloride () 250 mls @ 15 mls/hr IV .[id number] PRN PRN Reason: SALINE FLUSH Last Infusion: 12/27/18 23:59 Dose: 15 mls/hr Documented by: Norepinephrine Bitartrate 8 mg (/ Sodium Chloride) 250 mls @ 9.375 mls/hr CONT INF .[id number] [facility]; Protocol Last Admin: 12/28/18 05:19 Dose: Not Given Documented by: Linezolid (Zyvox 600mg) 600 mg in 300 mls @ 200 mls/hr IV Q12 [facility] Last Infusion: 12/27/18 23:40 Dose: Infused Documented by: Meropenem 1 gm/ Sodium (Chloride) 120 mls @ 33 mls/hr IV Q12 [facility] Last Infusion: 12/28/18 02:00 Dose: Infused Documented by: Sodium Bicarbonate 150 meq/ (Dextrose) 1,150 mls @ 100 mls/hr IV .[id number] [facility] Last Admin: 12/28/18 02:07 Dose: 100 mls/hr Documented by: Insulin Human Lispro (Humalog Kwikpen (Bkc)) 0 unit SC ACHS [facility]; Protocol Last Admin: 12/28/18 08:15 Dose: Not Given Documented by: Lactobacillus Acidophilus (Acidophilus) 1 tablet PO DAILY [facility] Last Admin: 12/27/18 10:31 Dose: 1 tablet Documented by: Latanoprost (Xalatan Opthalmic) 1 drop EACH EYE QHS [facility] Last Admin: 12/27/18 22:22 Dose: 1 drop Documented by: Multivitamins (Multivitamin) [facility] Last Admin: 12/27/18 08:42 Dose: 1 tablet Documented by: Nutritional Formula (Sigifredo - [place] Flavor) 1 packet PO BIDCM [facility] Last Admin: 12/27/18 17:47 Dose: Not Given Documented by: Nutritional Formula (Lactose Free) (Glucerna Shake) 120 ml PO 4X/DAY [facility] Last Admin: 12/27/18 22:25 Dose: 120 ml Documented by: Polyethylene Glycol (Miralax) 34 gm PO X1 PRN PRN Reason: Bowel Movement Polyethylene Glycol (Miralax) 17 gm PO DAILY [facility] Sodium Bicarbonate (Sodium Bicarbonate) 650 mg PO 4X/DAY [facility] Last Admin: 12/27/18 22:24 Dose: 650 mg Documented by: Sodium Chloride () 10 - 40 ml IV UD PRN PRN Reason: SALINE FLUSH Sodium Hypochlorite (Dakins Solution 0.25% (1/2 Strength)) 1 applic TOPICAL DAILY [facility]; Protocol Last Admin: 12/28/18 08:24 Dose: 1 applicatio Documented by: Timolol Maleate (Timoptic) 1 drop EACH EYE BID [facility] Last Admin: 12/27/18 22:23 Dose: 1 drop Documented by: Tolterodine Tartrate (Detrol La) 2 mg PO DAILY [facility] Last Admin: 12/27/18 10:31 Dose: 2 mg Documented by: Medical Necessity - Tobacco Use Smoking Status: Never smoker Assessment/Plan All Active Problems (Last Reviewed 12/27/18 @ 00:34 by Jaison Lopez MD) Acute kidney failure (Acute) Septic shock (Acute) Severe sepsis (Acute) Hyperkalemia (Acute) Acute hyperkalemia (Acute) Acute kidney failure (Acute) Metabolic acidemia (Acute) Anemia (Acute) Severe sepsis (Acute) Complicated urinary tract infection (Acute) 1. Septic shock due to infected decubitus ulcers and acute complicated UTI was successfully weaned off of levophed overnight tachycardia has resolved critical care on board blood and urine cultures pending wound care consulted o/a of decubitus ulcers on IV meropenem and IV linezolid ID and wound care on board 2. HIMANSHU: Cr is down to 3.71 today, from 4.2 on admission. continue hydration with IVF. nephrology consulted. KIdney and bladder USG were unremarkable 3. Hyperkalemia: K is down to 3.5 this morning. REceived kayexalate. 4. 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 Continued extremely deep bilateral decubitus ulcers extending to both ischial tuberosities wound care on board 5. ANion gap metabolic acidosis: likely due to uremia from HIMANSHU. Bicarb was 11 on admission, and is now up to 19. ANion gap is 16 today. 6. Acute on chronic iron deficiency anemia: Hb has dropped to 6.9. Will transfuse one unit of PRBC. Has had negative EGD and colonoscopy in the past 7. Lactic acidosis; resolved. 8.Diabetes mellitus: Metformin and tradjenta on hold. ISS. Accuchecks ACHS 9. Severe protein calorie malnutrition. Albumin is 1.6. Consult nutrition. 10. Hypocalcemia: Calcium is 6.9, corrected for albumin, is 8.6. ionised albumin is pending 11. Hyponatremia:resolved. DVT prophylaxis: SCDs. Code Visit Inpatient E&M: 97703 Subs Hosp L3
[2018-12-28] MEDS: Timolol 0.5% 5ML OPTH.BTL 1 DRP EACH EYE ×2 (09:43→21:42)
[2018-12-28] MEDS: Pantoprazole Sodium 40 MG Tablet PO (09:43)
[2018-12-28] MEDS: Linezolid 600 MG 600 MG/300 ML BAG 200 MG IV (09:43)
[2018-12-28] MEDS: Multivitamins,Therapeutic Tablet 1 TABLET PO (09:44)
[2018-12-28] MEDS: Sodium Bicarbonate 650 MG Tablet PO (09:44)
[2018-12-28] MEDS: Allopurinol 100 MG Tablet 200 MG PO (09:44)
[2018-12-28] MEDS: Polyethylene Glycol 3350 17 GM PACKET PO (09:44)
[2018-12-28] MEDS: Ascorbic Acid 500 MG Tablet PO (09:44)
[2018-12-28] MEDS: Tolterodine Tartrate 2 MG CAP.SA PO (09:45)
[2018-12-28] MEDS: Glucerna Shake 120 ML LIQUID PO ×3 (09:45→16:58)
[2018-12-28] MEDS: 0.9% NaCl IVPB Med Flush (250 mL) 15 ML IV (09:48)
--- NOTE | 2018-12-28 09:56 | PCM.PN.ID ---
Patient Problems: Active and Suspected Problems (Last Reviewed 12/27/18 @ 00:34 by Jaison Lopez MD) Acute kidney failure (Acute) Septic shock (Acute) Severe sepsis (Acute) Subjective: Off pressors, feeling better, no fever, denies abd pain - Physical Exam General: Cooperative, No apparent distress Lungs: Clear to auscultation, Normal air movement Cardiovascular: Regular rate, Regular Rhythm Abdomen: Soft, Non Tender, Non-Distended Skin: Ulcer/ Wound - reviewed photos Vital Signs Temp Pulse Resp BP Pulse Ox 98.0 F 98 18 108/72 100 12/28/18 08:00 12/28/18 08:00 12/28/18 08:00 12/28/18 08:00 12/28/18 08:00 Oxygen Flow Rate (L/min) 4 Oxygen Delivery Method Room Air Weight: 72.9 kg Body Mass Index (BMI) 27.5 Finger Stick Blood Glucose 154 Intake and Output for Last 24 Hours 12/26/18 12/27/18 12/28/18 23:59 23:59 23:59 Intake Total 2295 / 2295 5369.57 / 5508.37 828.98 / 828.98 Output Total 700 / 850 3350 / 3700 850 / 850 Balance 1595 / 1445 2019.57 / 1808.37 -21.02 / -21.02 Microbiology Past 72 Hours 12/26/18 20:20 Urine Culture - Preliminary Urine, Random Gram negative miranda Gram negative miranda#2 12/27/18 11:05 Gram Stain - Final Wound Drainage - Aerobic & Anaerobic Swabs Laboratory Tests Past 24 Hrs 12/27/18 12/27/18 12/28/18 02:45 11:05 05:05 WBC 9.5 RBC 2.30 L Hgb 6.9 L Hct 20.8 L MCV 90.4 MCH 30.0 MCHC 33.2 RDW Std Deviation 53.5 H RDW Coeff of Kandi 16.3 H Plt Count 285 MPV 9.4 Immature Gran % (Auto) 3.900 H Neut % (Auto) 81.1 H Lymph % (Auto) 6.1 L [place] % (Auto) 4.7 Eos % (Auto) 4.0 Baso % (Auto) 0.2 Absolute Neuts (auto) 7.7 Absolute Lymphs (auto) 0.58 L Nucleated RBC % 0 PT INR Sodium Potassium Chloride Carbon Dioxide Anion Gap BUN Creatinine Estim Creat Clear Calc Est GFR (MDRD) Af Amer Est GFR (MDRD) Non-Af BUN/Creatinine Ratio Glucose Calcium Ionized Calcium Pending S.aureus Protein A PCR POSITIVE H MRSA (PCR) POSITIVE H Blood Type Antibody Screen Crossmatch 12/28/18 12/28/18 12/28/18 05:05 08:05 08:10 WBC RBC Hgb Hct MCV MCH MCHC RDW Std Deviation RDW Coeff of Kandi Plt Count MPV Immature Gran % (Auto) Neut % (Auto) Lymph % (Auto) [place] % (Auto) Eos % (Auto) Baso % (Auto) Absolute Neuts (auto) Absolute Lymphs (auto) Nucleated RBC % PT INR Sodium 136 Potassium 3.5 Chloride 101 Carbon Dioxide 19.0 L Anion Gap 16 H BUN 108 H* Creatinine 3.71 H Estim Creat Clear Calc 11.32 Est GFR (MDRD) Af Amer 16 L Est GFR (MDRD) Non-Af 13 L BUN/Creatinine Ratio 29.1 H Glucose 139 H Calcium 6.9 L Ionized Calcium S.aureus Protein A PCR MRSA (PCR) Blood Type B POSITIVE Cancelled Antibody Screen NEGATIVE Cancelled Crossmatch See Detail See Detail 12/28/18 08:10 WBC RBC Hgb Hct MCV MCH MCHC RDW Std Deviation RDW Coeff of Kandi Plt Count MPV Immature Gran % (Auto) Neut % (Auto) Lymph % (Auto) [place] % (Auto) Eos % (Auto) Baso % (Auto) Absolute Neuts (auto) Absolute Lymphs (auto) Nucleated RBC % PT 17.3 H INR 1.4 Sodium Potassium Chloride Carbon Dioxide Anion Gap BUN Creatinine Estim Creat Clear Calc Est GFR (MDRD) Af Amer Est GFR (MDRD) Non-Af BUN/Creatinine Ratio Glucose Calcium Ionized Calcium S.aureus Protein A PCR MRSA (PCR) Blood Type Antibody Screen Crossmatch POC Glucose 12/28/18 12/27/18 12/27/18 07:58 22:07 16:57 POC Glucose 125 H 140 H 145 H 12/27/18 12:15 POC Glucose 158 H Medical Necessity - Tobacco Use Smoking Status: Never smoker Route of nutrition/ use of supplements: [] Nutritional Intake: [] IV Site: [] Rea Catheter: [] - Assessment/Plan Antibiotics: [] Assessment/Plan: [] Active and Suspected Problems (Last Reviewed 12/27/18 @ 00:34 by Jaison Lopez MD) Acute kidney failure (Acute) Septic shock (Acute) Severe sepsis (Acute) septic shock with HIMANSHU - CT pelvis with worsening sacral osteo. UA with some pyuria, ucx with GNR x2. Cont linezolid and meropenem. Has had prior growth in past year of GNRs, MRSA, AcB, actinomyces, VRE, and anaerobes. Off pressors, Cr slowly improving. Will follow
[2018-12-28] MEDS: CHLORHEXIDINE GLUC 2% CLOTH 1 EACH TOWELETTE TOPICAL (10:01)
--- NOTE | 2018-12-28 10:19 | CASEMGMT ---
SW participated in interdisciplinary rounds. Physician would like to meet with family today. He had no preference for time. SW called patient's POA, Althea and she said she could be here today around 11, but her , patient's brother cannot be present as he is working at the [employer]. SW notified Dr Connell. As long as she is on time he will be able to talk with her. ALEX also notified RN. Plan: Family meeting at 11am today. Ofelia GARCIA MSW
--- NOTE | 2018-12-28 11:49 | CASEMGMT ---
SW accompanied physician to talk with patient and family. Goals of care were discussed. Patient and family decided they would like to talk with Hospice. SW asked them which Hospice they would like as [facility] has a Hospice. (patient is from [facility] which is a [facility] facility) Patient and family asked for [facility]. SW explained that Hospice will call Jay as she is the POA, to arrange a time meet. They thanked ALEX for talking with them. SW called [facility] and spoke with Sharri regarding referral. SW also faxed over referral. RN was notified that SW was making referral to [facility]. Ofelia GARCAI MSW
[2018-12-28] MEDS: Insulin Lispro 100 UNIT/ML INSULN.PEN SC ×3 (11:58→21:35)
[2018-12-28 12:10] LABS: Bedside Glucose 195 mg/dL (70-110)
[2018-12-28] MEDS: Acetaminophen 325 MG Tablet 650 MG PO (13:26)
--- NOTE | 2018-12-28 13:30 | PN.RENAL_ITS ---
Patient Problems: Active and Suspected Problems (Last Reviewed 12/27/18 @ 00:34 by Jaison Lopez MD) Acute kidney failure (Acute) Septic shock (Acute) Severe sepsis (Acute) Subjective: Pt is feeling better. No nausea No vomiting No SOB Remains in ICU Off pressors - Physical Exam General: Alert, Oriented x3 HEENT: Atraumatic Oral: Moist Mucosa Neck: Supple, No JVD Lungs: Clear to auscultation, Normal air movement, No rhonchi, No wheeze Cardiovascular: Regular rate, Regular Rhythm, Normal S1 Abdomen: Bowel Sounds Present, Soft, Non Tender, Non-Distended Extremities: No clubbing, No cyanosis, No edema Skin: No rashes Lymphatic: No Cervical, Supraclavicular, or Inguinal Adenopathy Psych/Mental Status: Appropriate Vital Signs Temp Pulse Resp BP Pulse Ox 96.0 F L 97 13 108/66 99 12/28/18 12:00 12/28/18 12:00 12/28/18 12:00 12/28/18 12:00 12/28/18 12:00 Oxygen Flow Rate (L/min) 4 Oxygen Delivery Method Room Air Weight: 72.9 kg Body Mass Index (BMI) 27.5 Finger Stick Blood Glucose 154 Intake and Output for Last 24 Hours 12/26/18 12/27/18 12/28/18 23:59 23:59 23:59 Intake Total 2295 / 2295 5369.57 / 5508.37 3100.66 / 3100.66 Output Total 700 / 850 3350 / 3700 1300 / 1300 Balance 1595 / 1445 2019.57 / 1808.37 1800.66 / 1800.66 Microbiology Past 72 Hours 12/27/18 11:05 Gram Stain - Final Wound Drainage - Aerobic & Anaerobic Swabs Wound Culture - Preliminary Mixed Culture 12/26/18 20:20 Urine Culture - Preliminary Urine, Random Gram negative miranda Gram negative miranda#2 Laboratory Tests Past 24 Hrs 12/27/18 12/28/18 12/28/18 02:45 05:05 05:05 WBC 9.5 RBC 2.30 L Hgb 6.9 L Hct 20.8 L MCV 90.4 MCH 30.0 MCHC 33.2 RDW Std Deviation 53.5 H RDW Coeff of Kandi 16.3 H Plt Count 285 MPV 9.4 Immature Gran % (Auto) 3.900 H Neut % (Auto) 81.1 H Lymph % (Auto) 6.1 L [place] % (Auto) 4.7 Eos % (Auto) 4.0 Baso % (Auto) 0.2 Absolute Neuts (auto) 7.7 Absolute Lymphs (auto) 0.58 L Nucleated RBC % 0 PT INR Sodium 136 Potassium 3.5 Chloride 101 Carbon Dioxide 19.0 L Anion Gap 16 H BUN 108 H* Creatinine 3.71 H Estim Creat Clear Calc 11.32 Est GFR (MDRD) Af Amer 16 L Est GFR (MDRD) Non-Af 13 L BUN/Creatinine Ratio 29.1 H Glucose 139 H Calcium 6.9 L Ionized Calcium Pending Blood Type Antibody Screen Crossmatch 12/28/18 12/28/18 12/28/18 08:05 08:10 08:10 WBC RBC Hgb Hct MCV MCH MCHC RDW Std Deviation RDW Coeff of Kandi Plt Count MPV Immature Gran % (Auto) Neut % (Auto) Lymph % (Auto) [place] % (Auto) Eos % (Auto) Baso % (Auto) Absolute Neuts (auto) Absolute Lymphs (auto) Nucleated RBC % PT 17.3 H INR 1.4 Sodium Potassium Chloride Carbon Dioxide Anion Gap BUN Creatinine Estim Creat Clear Calc Est GFR (MDRD) Af Amer Est GFR (MDRD) Non-Af BUN/Creatinine Ratio Glucose Calcium Ionized Calcium Blood Type B POSITIVE Cancelled Antibody Screen NEGATIVE Cancelled Crossmatch See Detail See Detail POC Glucose 12/28/18 12/28/18 12/27/18 11:53 07:58 22:07 POC Glucose 195 H 125 H 140 H 12/27/18 16:57 POC Glucose 145 H Medical Necessity - Tobacco Use Smoking Status: Never smoker Assessment/Plan All Active Problems (Last Reviewed 12/27/18 @ 00:34 by Jaison Lopez MD) Acute kidney failure (Acute) Septic shock (Acute) Severe sepsis (Acute) Hyperkalemia (Acute) Acute hyperkalemia (Acute) Acute kidney failure (Acute) Metabolic acidemia (Acute) Anemia (Acute) Severe sepsis (Acute) Complicated urinary tract infection (Acute) 1-Acute kidney injury and chronic kidney disease. Patient had acute kidney injury in July 2018 due to sepsis induced ATN. Kidney function then improved and creatinine was 1.1 mg/dL in August 14. HIMANSHU is most probably ATN from septic shock. FeNa very high at 19% . Suprapubic catheter was changed at presentation Cr peaked at 4.2 mg/dL at presentation. Cr is improving. Cr is 3.7 mg/dL. UOP improved. Acidosis is better. Hyperkalemia resolved. No need for BUILDING SUPERINTENDENT Check renal function in am 2-hyperkalemia from acidosis and acute kidney injury. Creatinine peaked at 6.7 and resolved with medical treatment. 3-high anion gap metabolic acidosis from uremia and lactic acidosis. Improved. Lactic acid level is trending down. Continue isotonic NaHCO3 drip at 100 cc/hour 4-septic shock from UTI/OM of sacral bone.hemodynamic support as per ICU team. Antibiotics as per ID. Please dose antibiotics for the current creatinine clearance. Thank you for allowing me to participate in Ms. Kasper's care. Please call if any question or concern at [phone]. Umang Joy MD
--- NOTE | 2018-12-28 13:37 | CASEMGMT ---
ALEX received a call from Sharri at Hospice and patient's POA said they cannot meet until at 10 am. ALEX will notify RN. Ofelia GARCIA MSW
[2018-12-28 16:41] LABS: Bedside Glucose 151 mg/dL (70-110)
[2018-12-28] MEDS: 0.9% NaCl Peripheral Flush Adult/Peds IV ×2 (16:59→21:40)
[2018-12-28] MEDS: Linezolid 600 MG 600 MG/300 ML BAG 300 MG IV (21:35)
[2018-12-28] MEDS: Latanoprost 0.005% 1 Bottle 1 DRP EACH EYE (21:42)
[2018-12-28 21:56] LABS: Bedside Glucose 165 mg/dL (70-110)
[2018-12-29] VITALS (18 sets, daily range): BP systolic 107–132; BP diastolic 63–87; PULSE 92–115; RESP 11–28; TEMP 36.1–36.8; O2SAT 94–100
[2018-12-29] MEDS: Acetaminophen 325 MG Tablet 650 MG PO ×2 (04:22→21:14)
[2018-12-29] MEDS: Gabapentin 100 MG Capsule PO ×3 (04:25→21:13)
[2018-12-29 04:54] LABS: Absolute Lymphocyte Count 0.65 X10^3/uL (0.83-4.51); Absolute Neutrophil Count 7.1 X10^3/uL (2.0-7.7); Basophil# 0.02 X10^3/uL; Basophil% 0.2 % (0-1); Eosinophil# 0.32 X10^3/uL; Eosinophils% 3.7 % (0-5); Hematocrit 29.8 % (37-47); Hemoglobin 9.9 g/dL (12.0-15.0); Lymphocyte # 0.65 X10^3/ul (4.0); Lymphocyte % 7.5 % (19-41); Mean Corp Hgb Conc 33.2 g/dL (32-36); Mean Corpuscular Hgb 28.1 pg (27.0-32.0); Mean Corpuscular Volume 84.7 fL (81-99); Mean Platelet Vol. 9.4 fl (6.2-12.0); Monocyte# 0.42 X10^3/uL; Monocyte% 4.8 % (0-10); NRBC Flagged by Analyzer 0 % (0-5); Neutrophil # 7.06 X10^3/uL (2.7-7.7); Neutrophil % 80.9 % (47-70); Platelet Count 275 K/mm3 (150-450); RBC Distribution Width CV 17.7 % (11.6-14.6); RBC Distribution Width SD 54.9 fl (35.1-43.9); Red Blood Count 3.52 M/mm3 (4.2-5.4); White Blood Count 8.7 K/mm3 (4.4-11.0)
[2018-12-29 05:29] LABS: Anion Gap 12 (5-15); BUN 101 mg/dL (7-18); BUN/Creat Ratio 31.3 RATIO (10-20); Calcium,Total 6.6 mg/dL (8.5-10.1); Chloride 97 mmol/L (98-107); Creatinine, Serum 3.23 mg/dL (0.55-1.02); EST Glomerular Filtration Rate 15 mL/min (>60); Est Glom Filt Rate - Afr Amer 18 mL/min (>60); Glucose 149 mg/dL (74-106); Potassium 3.1 mmol/L (3.5-5.1); Sodium Level 136 mmol/L (136-145)
--- NOTE | 2018-12-29 06:51 | PN_ITS ---
Subjective: The patient was seen and examined at the bedside this morning. Events from the last 24 hours have been reviewed. The patient is currently afebrile, hemodynamically stable and maintaining appropriate oxygen saturations on room air. I did meet with the patient and her family at the bedside yesterday morning to discuss the results of her recent CT pelvis. Following a goals of care discussion, the patient is interested in meeting with hospice care services to discuss options moving forward. There are tentative plans for a family meeting with hospice care services on at 10 AM. Hemoglobin is improved this morning to 9.9 g/dL, following transfusion of packed red blood cells yesterday. Potassium is low at 3.1. Creatinine continues to improve. Objective: The patient's most recent lab work, culture data and imaging studies have all been personally reviewed. Surface echocardiogram from June 2018 revealed normal LV size and function with an ejection fraction of 60% and stage I diastolic dysfunction. Pulmonary artery systolic pressure was estimated to be 42 mmHg. Renal ultrasound revealed no acute abnormality and no evidence of hydronephrosis. CT pelvis completed on December 27 revealed marked progression of the sacral decubitus since the patient's prior imaging study along with osteolytic destruction of the coccyx and S5 segment consistent with osteomyelitis. Wound, blood and urine cultures are pending. General: Alert, Cooperative, - - Chronically ill in appearance HEENT: Atraumatic, PERRLA, Normocephalic Oral: No Gingival or Mucosal Lesions/ Ulcerations Neck: Supple, No Nodes, Trachea Midline Lungs: No rhonchi, No wheeze, No rales Cardiovascular: Normal S1, Normal S2, No murmurs, Tachycardic Abdomen: Bowel Sounds Present, Soft, Non Tender, - - +Ostomy Extremities: No clubbing, No cyanosis Skin: Ulcer/ Wound Musculoskeletal: No Tenderness to Palpation of Joints or Extremities Lymphatic: No Cervical, Supraclavicular, or Inguinal Adenopathy Neurological: Neuro grossly intact Psych/Mental Status: Anxious, Restless Vital Signs Temp Pulse Resp BP Pulse Ox 97.1 F L 102 H 14 111/68 98 12/29/18 04:00 12/29/18 06:00 12/29/18 06:00 12/29/18 06:00 12/29/18 06:00 Oxygen Flow Rate (L/min) 4 Oxygen Delivery Method Room Air Weight: 169 lb 8.568 oz Body Mass Index (BMI) 27.5 Finger Stick Blood Glucose 154 Intake and Output for Last 24 Hours 12/27/18 12/28/18 12/29/18 23:59 23:59 23:59 Intake Total 5369.57 / 5508.37 5577.29 / 5577.29 1091.35 / 1091.35 Output Total 3350 / 3700 1999 / 2700 1650 / 1650 Balance 2019.57 / 1808.37 3577.29 / 2877.29 -558.65 / -558.65 Labs (Last 48 Hours) 12/27/18 12/27/18 12/27/18 02:45 08:02 11:05 WBC RBC Hgb Hct MCV MCH MCHC RDW Std Deviation RDW Coeff of Kandi Plt Count MPV Immature Gran % (Auto) Neut % (Auto) Lymph % (Auto) [place] % (Auto) Eos % (Auto) Baso % (Auto) Absolute Neuts (auto) Absolute Lymphs (auto) Nucleated RBC % PT INR Sodium Potassium Chloride Carbon Dioxide Anion Gap BUN Creatinine Estim Creat Clear Calc Est GFR (MDRD) Af Amer Est GFR (MDRD) Non-Af BUN/Creatinine Ratio Glucose Calcium Ionized Calcium Pending S.aureus Protein A PCR POSITIVE H MRSA (PCR) POSITIVE H POC Glucose 139 H Blood Type Antibody Screen Crossmatch 12/27/18 12/27/18 12/27/18 12:15 16:57 22:07 WBC RBC Hgb Hct MCV MCH MCHC RDW Std Deviation RDW Coeff of Kandi Plt Count MPV Immature Gran % (Auto) Neut % (Auto) Lymph % (Auto) [place] % (Auto) Eos % (Auto) Baso % (Auto) Absolute Neuts (auto) Absolute Lymphs (auto) Nucleated RBC % PT INR Sodium Potassium Chloride Carbon Dioxide Anion Gap BUN Creatinine Estim Creat Clear Calc Est GFR (MDRD) Af Amer Est GFR (MDRD) Non-Af BUN/Creatinine Ratio Glucose Calcium Ionized Calcium S.aureus Protein A PCR MRSA (PCR) POC Glucose 158 H 145 H 140 H Blood Type Antibody Screen Crossmatch 12/28/18 12/28/18 12/28/18 05:05 05:05 07:58 WBC 9.5 RBC 2.30 L Hgb 6.9 L Hct 20.8 L MCV 90.4 MCH 30.0 MCHC 33.2 RDW Std Deviation 53.5 H RDW Coeff of Kandi 16.3 H Plt Count 285 MPV 9.4 Immature Gran % (Auto) 3.900 H Neut % (Auto) 81.1 H Lymph % (Auto) 6.1 L [place] % (Auto) 4.7 Eos % (Auto) 4.0 Baso % (Auto) 0.2 Absolute Neuts (auto) 7.7 Absolute Lymphs (auto) 0.58 L Nucleated RBC % 0 PT INR Sodium 136 Potassium 3.5 Chloride 101 Carbon Dioxide 19.0 L Anion Gap 16 H BUN 108 H* Creatinine 3.71 H Estim Creat Clear Calc 11.32 Est GFR (MDRD) Af Amer 16 L Est GFR (MDRD) Non-Af 13 L BUN/Creatinine Ratio 29.1 H Glucose 139 H Calcium 6.9 L Ionized Calcium S.aureus Protein A PCR MRSA (PCR) POC Glucose 125 H Blood Type Antibody Screen Crossmatch 12/28/18 12/28/18 12/28/18 08:05 08:10 08:10 WBC RBC Hgb Hct MCV MCH MCHC RDW Std Deviation RDW Coeff of Kandi Plt Count MPV Immature Gran % (Auto) Neut % (Auto) Lymph % (Auto) [place] % (Auto) Eos % (Auto) Baso % (Auto) Absolute Neuts (auto) Absolute Lymphs (auto) Nucleated RBC % PT 17.3 H INR 1.4 Sodium Potassium Chloride Carbon Dioxide Anion Gap BUN Creatinine Estim Creat Clear Calc Est GFR (MDRD) Af Amer Est GFR (MDRD) Non-Af BUN/Creatinine Ratio Glucose Calcium Ionized Calcium S.aureus Protein A PCR MRSA (PCR) POC Glucose Blood Type B POSITIVE Cancelled Antibody Screen NEGATIVE Cancelled Crossmatch See Detail See Detail 12/28/18 12/28/18 12/28/18 11:53 16:32 21:35 WBC RBC Hgb Hct MCV MCH MCHC RDW Std Deviation RDW Coeff of Kandi Plt Count MPV Immature Gran % (Auto) Neut % (Auto) Lymph % (Auto) [place] % (Auto) Eos % (Auto) Baso % (Auto) Absolute Neuts (auto) Absolute Lymphs (auto) Nucleated RBC % PT INR Sodium Potassium Chloride Carbon Dioxide Anion Gap BUN Creatinine Estim Creat Clear Calc Est GFR (MDRD) Af Amer Est GFR (MDRD) Non-Af BUN/Creatinine Ratio Glucose Calcium Ionized Calcium S.aureus Protein A PCR MRSA (PCR) POC Glucose 195 H 151 H 165 H Blood Type Antibody Screen Crossmatch 12/29/18 12/29/18 04:45 04:45 WBC 8.7 RBC 3.52 L Hgb 9.9 L Hct 29.8 L MCV 84.7 D MCH 28.1 MCHC 33.2 RDW Std Deviation 54.9 H RDW Coeff of Kandi 17.7 H Plt Count 275 MPV 9.4 Immature Gran % (Auto) 2.900 H Neut % (Auto) 80.9 H Lymph % (Auto) 7.5 L [place] % (Auto) 4.8 Eos % (Auto) 3.7 Baso % (Auto) 0.2 Absolute Neuts (auto) 7.1 Absolute Lymphs (auto) 0.65 L Nucleated RBC % 0 PT INR Sodium 136 Potassium 3.1 L Chloride 97 L Carbon Dioxide 27.0 Anion Gap 12 BUN 101 H* Creatinine 3.23 H Estim Creat Clear Calc 13.00 Est GFR (MDRD) Af Amer 18 L Est GFR (MDRD) Non-Af 15 L BUN/Creatinine Ratio 31.3 H Glucose 149 H Calcium 6.6 L Ionized Calcium S.aureus Protein A PCR MRSA (PCR) POC Glucose Blood Type Antibody Screen Crossmatch Microbiology 12/26/18 20:10 Blood Culture (Wb) - Right Forearm Blood Culture - Preliminary 12/27/18 11:05 Wound Drainage - Aerobic & Anaerobic Swabs Gram Stain - Final 12/27/18 11:05 Wound Drainage - Aerobic & Anaerobic Swabs Wound Culture - Preliminary Mixed Culture 12/26/18 20:20 Urine, Random Urine Culture - Preliminary Gram negative miranda Gram negative miranda#2 Clinical Impression(s) from Imaging Studies Renal Ultrasound 12/27/18 02:28 IMPRESSION: No acute abnormality. No hydronephrosis. Electronically Signed: Maynor Solis MD at 15:34 EDT , Service support , Chest X-Ray 12/27/18 05:45 IMPRESSION: Central line is in adequate position. No evidence for acute cardiopulmonary pathology. Electronically Signed: Napoleon Corrigan MD at 6:50 EDT , Service support , Pelvis CT 12/27/18 11:54 IMPRESSION: Marked progression of sacral decubitus since previous study with osteolytic destruction of the coccyx and the S5 segment indicating osteomyelitis. Continued extremely deep bilateral decubitus ulcers extending to both ischial tuberosities. Electronically Signed: Maynor Solis MD at 16:50 EDT , Service support , Medical Necessity - Tobacco Use Smoking Status: Never smoker Assessment/Plan All Active Problems (Last Reviewed 12/27/18 @ 00:34 by Jaison Lopez MD) Acute kidney failure (Acute) Septic shock (Acute) Severe sepsis (Acute) Hyperkalemia (Acute) Acute hyperkalemia (Acute) Acute kidney failure (Acute) Metabolic acidemia (Acute) Anemia (Acute) Severe sepsis (Acute) Complicated urinary tract infection (Acute) RECOMMENDATIONS: 1. Continue antibiotics per infectious diseases recommendations. 2. Continue physical therapy and nutritional support. 3. Plans for hospice care discussion tomorrow morning with family. 4. Monitor blood counts daily. Transfuse if hemoglobin drops below 7 g/dL. 5. Continue supplemental IV fluids per nephrology recommendations. 6. Potassium repletion as ordered. IMPRESSIONS: 1. Septic shock Improving. Clinical concern for underlying infected decubitus ulcer versus urinary tract source of infection. The patient has been successfully weaned from vasopressor support. However, CT pelvis did indicate worsening of the patient's decubitus ulcerations with underlying bony destruction. She will remain on broad-spectrum antimicrobial therapy, pending finalized culture data. Infectious diseases is following. Continue current supportive measures pending family meeting with hospice care services tomorrow morning. 2. Acute kidney injury/hyperkalemia Improving. Continue supplemental IV fluids per nephrology recommendations. Continue to monitor urine output. No current indication for renal replacement therapy. 3. Normocytic anemia The patient has chronic anemia with prior upper and lower endoscopies completed in July 2018 noted to be normal. Given that the patient's hemoglobin was noted to be less than 7 g/dL during her hospitalization, she was transfused packed red blood cells. Posttransfusion blood counts were improved. There are no occult signs of active blood loss. Recommend continuing to monitor H&H, with plans to transfuse if her hemoglobin drops below 7 g/dL. 4. Heart failure with preserved ejection fraction Recommend judicious use of supplemental IV fluids to prevent volume overloaded state. 5. Hypokalemia Electrolyte repletion as ordered. 6. Chronic decubitus ulcer/malnutrition/diabetes/neuropathy/hypertension Complicates care, management, recovery and prognosis. Nutrition and physical therapy to follow. This note was generated with [employer] dictation software. It may contain incorrect words, spelling, and punctuation that were not noted in checking the note before signing. DISPOSITION: The patient is medically stable for transfer out of the intensive care unit. Code Visit Inpatient E&M: 84499 [facility] L3
--- NOTE | 2018-12-29 08:00 | CASEMGMT ---
LW/POChris scanned into the summary tab of the echart. Jay Kasper is listed at pt's POA. JULIA Pat
[2018-12-29] MEDS: Allopurinol 100 MG Tablet 200 MG PO (08:15)
[2018-12-29] MEDS: Multivitamins,Therapeutic Tablet 1 TABLET PO (08:16)
[2018-12-29] MEDS: Ascorbic Acid 500 MG Tablet PO (08:16)
--- NOTE | 2018-12-29 09:12 | PCM.PN.HOSP ---
Patient Problems: Active and Suspected Problems (Last Reviewed 12/27/18 @ 00:34 by Jaison Lopez MD) Acute kidney failure (Acute) Septic shock (Acute) Severe sepsis (Acute) Subjective: Patient seen and examined. Patient complains of feeling like she just going downhill and states she does not really know what is going on with her. It appears patient's is frustrated with her current state and feels cooped up in the ICU and states she wants to get out of bed. Patient counseled that her hyperkalemia and HIMANSHU are improving but her other problems are chronic and she would benefit from intensive physical therapy. Review of systems otherwise negative. Hospice has been consulted and will see patient later this week. Labs and vitals reviewed. Potassium is down to 3.1 today and creatinine has trended down to 3.23. WBC is gone down to 8.7 and hemoglobin is 9.9 today after she was transfused yesterday. Vitals/I&O's: Vital Signs Temp Pulse Resp BP Pulse Ox 97.4 F L 110 H 17 114/65 99 12/29/18 08:11 12/29/18 08:11 12/29/18 08:11 12/29/18 08:11 12/29/18 08:11 Oxygen Flow Rate (L/min) 4 Oxygen Delivery Method Room Air Weight: 169 lb 8.568 oz Body Mass Index (BMI) 27.5 Finger Stick Blood Glucose 154 Intake and Output for Last 24 Hours 12/27/18 12/28/18 12/29/18 23:59 23:59 23:59 Intake Total 5369.57 / 5508.37 5577.29 / 5577.29 1343.02 / 1343.02 Output Total 3350 / 3700 1999 / 2700 1650 / 1650 Balance 2019.57 / 1808.37 3577.29 / 2877.29 -306.98 / -306.98 General: Alert, Oriented x3, Cooperative, Lethargic Oral: Dry Mucosa Neck: Supple, No JVD, Negative Carotid Bruits Lungs: Clear to auscultation, Normal air movement, No rhonchi, No wheeze, No rales Cardiovascular: Regular Rhythm, Normal S1, Normal S2, No murmurs, Tachycardic Abdomen: Bowel Sounds Present, Soft, Non Tender, Non-Distended, No Hepato-splenomegaly, - - colostomy bag Extremities: No clubbing, No cyanosis, No edema, Capillary Refill Less than 3 Seconds Skin: No rashes, No breakdown; suprapubic catheter in place Musculoskeletal: No Tenderness to Palpation of Joints or Extremities; very deep stage 4 sacral decubitus ulcers, with exposed bone;stage 4 decubitus ulcers on both buttocks Lymphatic: No Cervical, Supraclavicular, or Inguinal Adenopathy Neurological: Cranial nerves II-XII grossly intact, Neuro grossly intact, Motor Exam 5/5 strength throughout Psych/Mental Status: anxious, Alert and oriented to time, place, person, mood and affect Microbiology Past 72 Hours 12/27/18 11:05 Wound Drainage - Aerobic & Anaerobic Swabs Gram Stain - Final 12/27/18 11:05 Wound Drainage - Aerobic & Anaerobic Swabs Wound Culture - Preliminary Gram negative miranda 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 Laboratory Results 12/28/18 08:05: Blood Type B POSITIVE, Antibody Screen NEGATIVE, Crossmatch See Detail 12/28/18 11:53: POC Glucose 195 H 12/28/18 16:32: POC Glucose 151 H 12/28/18 21:35: POC Glucose 165 H 12/29/18 04:45: WBC 8.7, RBC 3.52 L, Hgb 9.9 L, Hct 29.8 L, MCV 84.7 D, MCH 28.1, MCHC 33.2, RDW Std Deviation 54.9 H, RDW Coeff of Kandi 17.7 H, Plt Count 275, MPV 9.4, Immature Gran % (Auto) 2.900 H, Neut % (Auto) 80.9 H, Lymph % (Auto) 7.5 L, [place] % (Auto) 4.8, Eos % (Auto) 3.7, Baso % (Auto) 0.2, Absolute Neuts (auto) 7.1, Absolute Lymphs (auto) 0.65 L, Nucleated RBC % 0 12/29/18 04:45: Sodium 136, Potassium 3.1 L, Chloride 97 L, Carbon Dioxide 27.0, Anion Gap 12, BUN 101 H*, Creatinine 3.23 H, Estim Creat Clear Calc 13.00, Est GFR (MDRD) Af Amer 18 L, Est GFR (MDRD) Non-Af 15 L, BUN/Creatinine Ratio 31.3 H, Glucose 149 H, Calcium 6.6 L Current Medications Acetaminophen (Tylenol) 650 mg PO Q6H PRN PRN PRN Reason: Mild pain 1-3/Temp > 100.7 F Last Admin: 12/29/18 04:22 Dose: 650 mg Documented by: Allopurinol (Zyloprim) 200 mg PO DAILYCM [facility] Last Admin: 12/29/18 08:15 Dose: 200 mg Documented by: Ascorbic Acid (Vitamin C) 500 mg PO DAILY@0800 [facility] Last Admin: 12/29/18 08:16 Dose: 500 mg Documented by: Chlorhexidine Gluconate () 1 each TOPICAL DAILY [facility] Last Admin: 12/28/18 10:01 Dose: 1 each Documented by: Dextrose (D50w Syringe) 0 gm IV X1 PRN; Protocol PRN Reason: Hypoglycemia Gabapentin (Neurontin) 100 mg PO TID [facility] Last Admin: 12/29/18 04:25 Dose: 100 mg Documented by: Glucagon () 1 mg IM .X1 PRN PRN Reason: Hypoglycemia Sodium Chloride () 250 mls @ 15 mls/hr IV .[id number] PRN PRN Reason: SALINE FLUSH Last Infusion: 12/28/18 10:00 Dose: 0 mls/hr Documented by: Linezolid (Zyvox 600mg) 600 mg in 300 mls @ 200 mls/hr IV Q12 [facility] Last Infusion: 12/28/18 22:35 Dose: Infused Documented by: Meropenem 1 gm/ Sodium (Chloride) 120 mls @ 33 mls/hr IV Q12 [facility] Last Infusion: 12/29/18 01:15 Dose: Infused Documented by: Sodium Bicarbonate 150 meq/ (Dextrose) 1,150 mls @ 100 mls/hr IV .[id number] [facility] Last Infusion: 12/29/18 08:31 Dose: 100 mls/hr Documented by: Insulin Human Lispro (Humalog Kwikpen (Bkc)) 0 unit SC ACHS [facility]; Protocol Last Admin: 12/29/18 07:46 Dose: Not Given Documented by: Lactobacillus Acidophilus (Acidophilus) 1 tablet PO DAILY [facility] Last Admin: 12/28/18 09:44 Dose: 1 tablet Documented by: Latanoprost (Xalatan Opthalmic) 1 drop EACH EYE QHS [facility] Last Admin: 12/28/18 21:42 Dose: 1 drop Documented by: [facility]amin) [facility] Last Admin: 12/29/18 08:16 Dose: 1 tablet Documented by: Nutritional Formula (Sigifredo - [place] Flavor) 1 packet PO BIDCM [facility] Last Admin: 12/29/18 08:16 Dose: 1 packet Documented by: Nutritional Formula (Lactose Free) (Glucerna Shake) 120 ml PO 4X/DAY [facility] Last Admin: 12/28/18 21:42 Dose: Not Given Documented by: Pantoprazole Sodium (Protonix) 40 mg PO DAILY [facility] Last Admin: 12/28/18 09:43 Dose: 40 mg Documented by: Polyethylene Glycol (Miralax) 34 gm PO X1 PRN PRN Reason: Bowel Movement Polyethylene Glycol (Miralax) 17 gm PO DAILY [facility] Last Admin: 12/28/18 09:44 Dose: 17 gm Documented by: Sodium Chloride () 10 - 40 ml IV UD PRN PRN Reason: SALINE FLUSH Last Admin: 12/28/18 21:40 Dose: 20 ml Documented by: Sodium Hypochlorite (Dakins Solution 0.25% (1/2 Strength)) 1 applic TOPICAL DAILY [facility]; Protocol Last Admin: 12/28/18 08:24 Dose: 1 applicatio Documented by: Timolol Maleate (Timoptic) 1 drop EACH EYE BID [facility] Last Admin: 12/28/18 21:42 Dose: 1 drop Documented by: Tolterodine Tartrate (Detrol La) 2 mg PO DAILY [facility] Last Admin: 12/28/18 09:45 Dose: 2 mg Documented by: Medical Necessity - Tobacco Use Smoking Status: Never smoker Assessment/Plan All Active Problems (Last Reviewed 12/27/18 @ 00:34 by Jaison Lopez MD) Acute kidney failure (Acute) Septic shock (Acute) Severe sepsis (Acute) Hyperkalemia (Acute) Acute hyperkalemia (Acute) Acute kidney failure (Acute) Metabolic acidemia (Acute) Anemia (Acute) Severe sepsis (Acute) Complicated urinary tract infection (Acute) 1. 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 HIMANSHU: Cr is down to 3.23 today, from 4.2 on admission. continue hydration with IVF. nephrology on board KIdney and bladder USG were unremarkable 3. Hyperkalemia: K is down to 3.1 this morning. will replace kayexalate 4. 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 Continued extremely deep bilateral decubitus ulcers extending to both ischial tuberosities wound care on board 5. ANion gap metabolic acidosis: likely due to uremia from HIMANSHU. resolved. ANion gap is now 12, and bicarb is 27 6. Acute on chronic iron deficiency anemia: s/p transfusion of 1 unit of PRBC as Hb was 6.9 yesterday. Hb today is 9.9. 7. Lactic acidosis; resolved. 8.Diabetes mellitus: Metformin and tradjenta on hold. ISS. Accuchecks ACHS 9. Severe protein calorie malnutrition. Albumin is 1.6. Nutrition on board 10. Hypocalcemia: Calcium is 6.6, corrected for albumin, is >8. ionised albumin is pending 11. Hyponatremia:resolved. DVT prophylaxis: SCDs. Code status: patient currently DNRCCA. Family to meet with hospice later this week to discuss hospice and palliative care. Disposition: transfer to PCU today Code Visit Inpatient E&M: [id number] [facility] Hosp L3
[2018-12-29] MEDS: Linezolid 600 MG 600 MG/300 ML BAG 200 MG IV ×2 (09:21→21:03)
[2018-12-29] MEDS: Polyethylene Glycol 3350 17 GM PACKET PO (09:22)
[2018-12-29] MEDS: Tolterodine Tartrate 2 MG CAP.SA PO (09:22)
[2018-12-29] MEDS: Timolol 0.5% 5ML OPTH.BTL 1 DRP EACH EYE ×2 (09:23→21:13)
[2018-12-29] MEDS: Pantoprazole Sodium 40 MG Tablet PO (09:27)
[2018-12-29] MEDS: Glucerna Shake 120 ML LIQUID PO ×2 (09:27→16:05)
[2018-12-29] MEDS: DAKIN'S SOL HALF STRENGTH (=0.25%) 1 APPLIC TOPICAL (10:08)
[2018-12-29] MEDS: Insulin Lispro 100 UNIT/ML INSULN.PEN SC ×3 (10:37→21:12)
[2018-12-29 11:16] LABS: Bedside Glucose 242 mg/dL (70-110)
--- NOTE | 2018-12-29 12:40 | NURSING ---
Sister in law, Jay, notified of pt moving to PCU 109
--- NOTE | 2018-12-29 12:53 | PCM.PN.ID ---
Patient Problems: Active and Suspected Problems (Last Reviewed 12/27/18 @ 00:34 by Jaison Lopez MD) Acute kidney failure (Acute) Septic shock (Acute) Severe sepsis (Acute) Subjective: Feeling ok, no fever, no abd pain, out of icu. - Physical Exam General: Cooperative, No apparent distress Lungs: Clear to auscultation, Normal air movement Cardiovascular: Regular rate, Regular Rhythm Skin: No rashes, Ulcer/ Wound Vital Signs Temp Pulse Resp BP Pulse Ox 97.7 F L 103 H 16 108/71 100 12/29/18 10:35 12/29/18 11:35 12/29/18 10:35 12/29/18 10:35 12/29/18 10:35 Oxygen Flow Rate (L/min) 4 Oxygen Delivery Method Room Air Weight: 76.9 kg Body Mass Index (BMI) 27.5 Finger Stick Blood Glucose 154 Intake and Output for Last 24 Hours 12/27/18 12/28/18 12/29/18 23:59 23:59 23:59 Intake Total 5369.57 / 5508.37 5577.29 / 5577.29 2152.80 / 2152.80 Output Total 3350 / 3700 2000 / 2700 2800 / 2800 Balance 2019.57 / 1808.37 3577.29 / 2877.29 -647.20 / -647.20 Microbiology Past 72 Hours 12/27/18 11:05 Gram Stain - Final Wound Drainage - Aerobic & Anaerobic Swabs Wound Culture - Preliminary Gram negative miranda 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 Laboratory Tests Past 24 Hrs 12/27/18 12/28/18 12/29/18 02:45 08:05 04:45 WBC 8.7 RBC 3.52 L Hgb 9.9 L Hct 29.8 L MCV 84.7 D MCH 28.1 MCHC 33.2 RDW Std Deviation 54.9 H RDW Coeff of Kandi 17.7 H Plt Count 275 MPV 9.4 Immature Gran % (Auto) 2.900 H Neut % (Auto) 80.9 H Lymph % (Auto) 7.5 L [place] % (Auto) 4.8 Eos % (Auto) 3.7 Baso % (Auto) 0.2 Absolute Neuts (auto) 7.1 Absolute Lymphs (auto) 0.65 L Nucleated RBC % 0 Sodium Potassium Chloride Carbon Dioxide Anion Gap BUN Creatinine Estim Creat Clear Calc Est GFR (MDRD) Af Amer Est GFR (MDRD) Non-Af BUN/Creatinine Ratio Glucose Calcium Ionized Calcium 4.1 L Blood Type B POSITIVE Antibody Screen NEGATIVE Crossmatch See Detail 12/29/18 04:45 WBC RBC Hgb Hct MCV MCH MCHC RDW Std Deviation RDW Coeff of Kandi Plt Count MPV Immature Gran % (Auto) Neut % (Auto) Lymph % (Auto) [place] % (Auto) Eos % (Auto) Baso % (Auto) Absolute Neuts (auto) Absolute Lymphs (auto) Nucleated RBC % Sodium 136 Potassium 3.1 L Chloride 97 L Carbon Dioxide 27.0 Anion Gap 12 BUN 101 H* Creatinine 3.23 H Estim Creat Clear Calc 13.00 Est GFR (MDRD) Af Amer 18 L Est GFR (MDRD) Non-Af 15 L BUN/Creatinine Ratio 31.3 H Glucose 149 H Calcium 6.6 L Ionized Calcium Blood Type Antibody Screen Crossmatch POC Glucose 12/29/18 12/28/18 12/28/18 10:34 21:35 16:32 POC Glucose 242 H 165 H 151 H Medical Necessity - Tobacco Use Smoking Status: Never smoker Route of nutrition/ use of supplements: [] Nutritional Intake: [] IV Site: [] Rea Catheter: [] - Assessment/Plan Antibiotics: [] Assessment/Plan: [] Active and Suspected Problems (Last Reviewed 12/27/18 @ 00:34 by Jaison Lopez MD) Acute kidney failure (Acute) Septic shock (Acute) Severe sepsis (Acute) septic shock with HIMANSHU - CT pelvis with worsening sacral osteo. UA with some pyuria, ucx with providencia and enterobacter. Cont linezolid and meropenem. Has had prior growth in past year of GNRs, MRSA, AcB, actinomyces, VRE, and anaerobes. Off pressors, Cr slowly improving. Will follow, family meeting planned
--- NOTE | 2018-12-29 15:10 | PN.RENAL_ITS ---
Patient Problems: Active and Suspected Problems (Last Reviewed 12/27/18 @ 00:34 by Jaison Lopez MD) Acute kidney failure (Acute) Septic shock (Acute) Severe sepsis (Acute) Subjective: Patient has no nausea no vomiting. No shortness of breath. Patient having poor appetite. - Physical Exam General: Alert, Oriented x3 HEENT: Atraumatic Oral: Moist Mucosa Neck: Supple, No JVD Lungs: Clear to auscultation, Normal air movement, No rhonchi, No wheeze Cardiovascular: Regular rate, Regular Rhythm, Normal S1, Normal S2 Abdomen: Bowel Sounds Present, Soft, Non Tender, Non-Distended Extremities: No clubbing, No cyanosis, No edema Musculoskeletal: No Muscle Wasting Lymphatic: No Cervical, Supraclavicular, or Inguinal Adenopathy Psych/Mental Status: Appropriate Vital Signs Temp Pulse Resp BP Pulse Ox 97.7 F L 103 H 16 108/71 100 12/29/18 10:35 12/29/18 11:35 12/29/18 10:35 12/29/18 10:35 12/29/18 10:35 Oxygen Flow Rate (L/min) 4 Oxygen Delivery Method Room Air Weight: 76.9 kg Body Mass Index (BMI) 27.5 Finger Stick Blood Glucose 154 Intake and Output for Last 24 Hours 12/27/18 12/28/18 12/29/18 23:59 23:59 23:59 Intake Total 5369.57 / 5508.37 5577.29 / 5577.29 2308.02 / 2308.02 Output Total 3350 / 3700 2000 / 2700 2800 / 2800 Balance 2019.57 / 1808.37 3577.29 / 2877.29 -491.98 / -491.98 Microbiology Past 72 Hours 12/26/18 21:20 Blood Culture - Preliminary Blood Culture (Wb) - Arm Left No growth in 48 hours. 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 Laboratory Tests Past 24 Hrs 12/27/18 12/28/18 12/29/18 02:45 08:05 04:45 WBC 8.7 RBC 3.52 L Hgb 9.9 L Hct 29.8 L MCV 84.7 D MCH 28.1 MCHC 33.2 RDW Std Deviation 54.9 H RDW Coeff of Kandi 17.7 H Plt Count 275 MPV 9.4 Immature Gran % (Auto) 2.900 H Neut % (Auto) 80.9 H Lymph % (Auto) 7.5 L [place] % (Auto) 4.8 Eos % (Auto) 3.7 Baso % (Auto) 0.2 Absolute Neuts (auto) 7.1 Absolute Lymphs (auto) 0.65 L Nucleated RBC % 0 Sodium Potassium Chloride Carbon Dioxide Anion Gap BUN Creatinine Estim Creat Clear Calc Est GFR (MDRD) Af Amer Est GFR (MDRD) Non-Af BUN/Creatinine Ratio Glucose Calcium Ionized Calcium 4.1 L Blood Type B POSITIVE Antibody Screen NEGATIVE Crossmatch See Detail 12/29/18 04:45 WBC RBC Hgb Hct MCV MCH MCHC RDW Std Deviation RDW Coeff of Kandi Plt Count MPV Immature Gran % (Auto) Neut % (Auto) Lymph % (Auto) [place] % (Auto) Eos % (Auto) Baso % (Auto) Absolute Neuts (auto) Absolute Lymphs (auto) Nucleated RBC % Sodium 136 Potassium 3.1 L Chloride 97 L Carbon Dioxide 27.0 Anion Gap 12 BUN 101 H* Creatinine 3.23 H Estim Creat Clear Calc 13.00 Est GFR (MDRD) Af Amer 18 L Est GFR (MDRD) Non-Af 15 L BUN/Creatinine Ratio 31.3 H Glucose 149 H Calcium 6.6 L Ionized Calcium Blood Type Antibody Screen Crossmatch POC Glucose 12/29/18 12/28/18 12/28/18 10:34 21:35 16:32 POC Glucose 242 H 165 H 151 H Medical Necessity - Tobacco Use Smoking Status: Never smoker Assessment/Plan All Active Problems (Last Reviewed 12/27/18 @ 00:34 by Jaison Lopez MD) Acute kidney failure (Acute) Septic shock (Acute) Severe sepsis (Acute) Hyperkalemia (Acute) Acute hyperkalemia (Acute) Acute kidney failure (Acute) Metabolic acidemia (Acute) Anemia (Acute) Severe sepsis (Acute) Complicated urinary tract infection (Acute) 1-Acute kidney injury and chronic kidney disease. Patient had acute kidney injury in July 2018 due to sepsis induced ATN. Kidney function then improved and creatinine was 1.1 mg/dL in August 14. HIMANSHU this time likely ATN from septic shock. FeNa very high at 19% . Suprapubic catheter was changed at presentation Cr peaked at 4.2 mg/dL at presentation. Cr is improving. Cr is 3.2 mg/dL today. BUN is trending down UOP is excellent . Acidosis resolved. hyperkalemia resolved. 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 Creatinine peaked at 6.7 and resolved with medical treatment. 3-high anion gap metabolic acidosis from uremia and lactic acidosis. Resolved. We will switch IV fluid from sodium bicarb drip to normal saline at 75 cc/hour. 4-septic shock from UTI/OM of sacral bone.resolved. Off pressors Antibiotics as per ID. Please dose antibiotics for the current creatinine clearance. Thank you for allowing me to participate in Ms. Kasper's care. Please call if any question or concern at [phone]. Umang Joy MD
[2018-12-29] MEDS: 0.9% Normal Saline 1,000 ML 75 ML IV (16:04)
[2018-12-29 16:15] LABS: Bedside Glucose 168 mg/dL (70-110)
[2018-12-29] MEDS: Latanoprost 0.005% 1 Bottle 1 DRP EACH EYE (21:14)
[2018-12-29] MEDS: 0.9% NaCl Peripheral Flush Adult/Peds IV (22:42)
[2018-12-29 22:56] LABS: Bedside Glucose 154 mg/dL (70-110)
[2018-12-30] VITALS (8 sets, daily range): BP systolic 110–133; BP diastolic 59–95; PULSE 68–112; RESP 16–18; TEMP 36.5–37; O2SAT 94–97
[2018-12-30 04:36] LABS: Absolute Lymphocyte Count 0.85 X10^3/uL (0.83-4.51); Absolute Neutrophil Count 5.9 X10^3/uL (2.0-7.7); Basophil# 0.01 X10^3/uL; Basophil% 0.1 % (0-1); Eosinophil# 0.25 X10^3/uL; Eosinophils% 3.3 % (0-5); Hematocrit 29.1 % (37-47); Hemoglobin 9.6 g/dL (12.0-15.0); Lymphocyte # 0.85 X10^3/ul (4.0); Lymphocyte % 11.1 % (19-41); Mean Corpuscular Hgb 27.7 pg (27.0-32.0); Mean Corpuscular Volume 84.1 fL (81-99); Mean Platelet Vol. 9.1 fl (6.2-12.0); Monocyte# 0.51 X10^3/uL; Monocyte% 6.7 % (0-10); NRBC Flagged by Analyzer 0 % (0-5); Neutrophil # 5.89 X10^3/uL (2.7-7.7); Neutrophil % 76.8 % (47-70); Platelet Count 279 K/mm3 (150-450); RBC Distribution Width CV 18.4 % (11.6-14.6); RBC Distribution Width SD 56.4 fl (35.1-43.9); Red Blood Count 3.46 M/mm3 (4.2-5.4); White Blood Count 7.7 K/mm3 (4.4-11.0)
[2018-12-30 05:08] LABS: Anion Gap 10 (5-15); BUN 84 mg/dL (7-18); BUN/Creat Ratio 29.7 RATIO (10-20); Calcium,Total 6.3 mg/dL (8.5-10.1); Chloride 99 mmol/L (98-107); Creatinine, Serum 2.83 mg/dL (0.55-1.02); EST Glomerular Filtration Rate 18 mL/min (>60); Est Glom Filt Rate - Afr Amer 21 mL/min (>60); Estimated Creatinine Clearance 14.84 ml/min; Glucose 129 mg/dL (74-106); Potassium 3.9 mmol/L (3.5-5.1); Sodium Level 138 mmol/L (136-145)
[2018-12-30] MEDS: 0.9% NaCl Peripheral Flush Adult/Peds IV ×2 (05:10→21:33)
[2018-12-30] MEDS: 0.9% Normal Saline 1,000 ML 75 ML IV (05:10)
[2018-12-30] MEDS: Gabapentin 100 MG Capsule PO ×3 (05:10→21:42)
[2018-12-30 06:36] LABS: Bedside Glucose 144 mg/dL (70-110)
--- NOTE | 2018-12-30 06:56 | PCA ---
12/30/18 0656 discussed weight change with Michelle HEARD
[2018-12-30] MEDS: Acetaminophen 325 MG Tablet 650 MG PO (07:54)
[2018-12-30] MEDS: Multivitamins,Therapeutic Tablet 1 TABLET PO (07:55)
[2018-12-30] MEDS: Allopurinol 100 MG Tablet 200 MG PO (07:55)
[2018-12-30] MEDS: Ascorbic Acid 500 MG Tablet PO (07:55)
--- NOTE | 2018-12-30 10:03 | PCM.PN.ID ---
Patient Problems: Active and Suspected Problems (Last Reviewed 12/27/18 @ 00:34 by Jaison Lopez MD) Acute kidney failure (Acute) Severe sepsis (Acute) Subjective: Feeling ok, fam meeting tomorrow, no fever - Physical Exam General: Cooperative, No apparent distress Lungs: Clear to auscultation, Normal air movement Cardiovascular: Regular rate, Regular Rhythm Abdomen: Soft, Non Tender, Non-Distended Skin: Ulcer/ Wound Vital Signs Temp Pulse Resp BP Pulse Ox 97.7 F L 103 H 16 112/60 97 12/30/18 04:45 12/30/18 07:28 12/30/18 04:45 12/30/18 04:45 12/30/18 04:45 Oxygen Flow Rate (L/min) 4 Oxygen Delivery Method Room Air Weight: 77.7 kg Body Mass Index (BMI) 27.5 Finger Stick Blood Glucose 154 Intake and Output for Last 24 Hours 12/28/18 12/29/18 12/30/18 23:59 23:59 23:59 Intake Total 5577.29 / 5577.29 3323.52 / 3323.52 705.25 / 705.25 Output Total 1999 / 0 4250 / 4250 800 / 800 Balance 3577.29 / 2877.29 -926.48 / -926.48 -94.75 / -94.75 Microbiology Past 72 Hours 12/27/18 11:05 Gram Stain - Final Wound Drainage - Aerobic & Anaerobic Swabs Wound Culture - Final Acinetobacter baumannii Klebsiella pneumoniae sp pneum Meth. resistant Staph. aureus Vancomycin Resist. E. faecalis 12/26/18 21:20 Blood Culture - Preliminary Blood Culture (Wb) - Arm Left No growth in 48 hours. 12/26/18 20:20 Urine Culture - Final Urine, Random Providencia stuartii Enterobacter cloacae complex 12/26/18 20:10 Bacteria Detection (PCR) - Final Blood Culture (Wb) - Right Forearm Blood Culture - Preliminary Presumptive Micrococcus spp. Laboratory Tests Past 24 Hrs 12/27/18 12/30/18 12/30/18 02:45 04:25 04:25 WBC 7.7 RBC 3.46 L Hgb 9.6 L Hct 29.1 L MCV 84.1 MCH 27.7 MCHC 33.0 RDW Std Deviation 56.4 H RDW Coeff of Kandi 18.4 H Plt Count 279 MPV 9.1 Immature Gran % (Auto) 2.000 H Neut % (Auto) 76.8 H Lymph % (Auto) 11.1 L [place] % (Auto) 6.7 Eos % (Auto) 3.3 Baso % (Auto) 0.1 Absolute Neuts (auto) 5.9 Absolute Lymphs (auto) 0.85 Nucleated RBC % 0 Sodium 138 Potassium 3.9 Chloride 99 Carbon Dioxide 29.0 Anion Gap 10 BUN 84 H Creatinine 2.83 H Estim Creat Clear Calc 14.84 Est GFR (MDRD) Af Amer 21 L Est GFR (MDRD) Non-Af 18 L BUN/Creatinine Ratio 29.7 H Glucose 129 H Calcium 6.3 L* Ionized Calcium 4.1 L POC Glucose 12/30/18 12/29/18 12/29/18 06:30 21:08 16:02 POC Glucose 144 H 154 H 168 H 12/29/18 10:34 POC Glucose 242 H Medical Necessity - Tobacco Use Smoking Status: Never smoker Route of nutrition/ use of supplements: [] Nutritional Intake: [] IV Site: [] Rea Catheter: [] - Assessment/Plan Antibiotics: [] Assessment/Plan: [] Active and Suspected Problems (Last Reviewed 12/27/18 @ 00:34 by Jaison Lopez MD) Acute kidney failure (Acute) Septic shock (Acute) Severe sepsis (Acute) septic shock with HIMANSHU - CT pelvis with worsening sacral osteo. UA with some pyuria, ucx with providencia and enterobacter. Cont linezolid and meropenem. Has had prior growth in past year of GNRs, MRSA, AcB, actinomyces, VRE, and anaerobes. Wound cx now with similar. Off pressors, Cr slowly improving. Will follow, family meeting planned
[2018-12-30] MEDS: Tolterodine Tartrate 2 MG CAP.SA PO (10:14)
[2018-12-30] MEDS: Pantoprazole Sodium 40 MG Tablet PO (10:14)
[2018-12-30] MEDS: DAKIN'S SOL HALF STRENGTH (=0.25%) 1 APPLIC TOPICAL (10:14)
[2018-12-30] MEDS: Glucerna Shake 120 ML LIQUID PO (10:15)
[2018-12-30] MEDS: Polyethylene Glycol 3350 17 GM PACKET PO (10:15)
[2018-12-30] MEDS: Linezolid 600 MG 600 MG/300 ML BAG 200 MG IV ×2 (10:15→21:28)
--- NOTE | 2018-12-30 10:38 | PN_ITS ---
Patient Problems: Active and Suspected Problems (Last Reviewed 12/27/18 @ 00:34 by Jaison Lopez MD) Acute kidney failure (Acute) Severe sepsis (Acute) Subjective: Patient seen and examined. She complains of generally feeling unwell, and feels like she has pain all over. She is meeting with hospice team tomorrow together with her family. Review of systems otherwise negative. Labs and vitals reviewed. She has remained afebrile. Vitals/I&O's: Vital Signs Temp Pulse Resp BP Pulse Ox 97.7 F L 103 H 16 112/60 97 12/30/18 04:45 12/30/18 07:28 12/30/18 04:45 12/30/18 04:45 12/30/18 04:45 Oxygen Flow Rate (L/min) 4 Oxygen Delivery Method Room Air Weight: 171 lb 4.787 oz Body Mass Index (BMI) 27.5 Finger Stick Blood Glucose 154 Intake and Output for Last 24 Hours 12/28/18 12/29/18 12/30/18 23:59 23:59 23:59 Intake Total 5577.29 / 5577.29 3323.52 / 3323.52 705.25 / 705.25 Output Total 2000 / 2700 4250 / 4250 800 / 800 Balance 3577.29 / 2877.29 -926.48 / -926.48 -94.75 / -94.75 General: Alert, Oriented x3, Cooperative, Lethargic Oral: Dry Mucosa Neck: Supple, No JVD, Negative Carotid Bruits Lungs: Clear to auscultation, Normal air movement, No rhonchi, No wheeze, No rales Cardiovascular: Regular Rhythm, Normal S1, Normal S2, No murmurs, Tachycardic Abdomen: Bowel Sounds Present, Soft, Non Tender, Non-Distended, No Hepato- splenomegaly, - - colostomy bag Extremities: No clubbing, No cyanosis, No edema, Capillary Refill Less than 3 Seconds Skin: No rashes, No breakdown; suprapubic catheter in place Musculoskeletal: No Tenderness to Palpation of Joints or Extremities; very deep stage 4 sacral decubitus ulcers, with exposed bone;stage 4 decubitus ulcers on both buttocks Lymphatic: No Cervical, Supraclavicular, or Inguinal Adenopathy Neurological: Cranial nerves II-XII grossly intact, Neuro grossly intact, Motor Exam 5/5 strength throughout Psych/Mental Status: anxious, Alert and oriented to time, place, person, mood and affect Microbiology Past 72 Hours 12/27/18 11:05 Wound Drainage - Aerobic & Anaerobic Swabs Gram Stain - Final 12/27/18 11:05 Wound Drainage - Aerobic & Anaerobic Swabs Wound Culture - Final Acinetobacter baumannii Klebsiella pneumoniae sp pneum Meth. resistant Staph. aureus Vancomycin Resist. E. faecalis 12/26/18 21:20 Blood Culture (Wb) - Arm Left Blood Culture - Preliminary No growth in 48 hours. 12/26/18 20:20 Urine, Random Urine Culture - Final Providencia stuartii Enterobacter cloacae complex 12/26/18 20:10 Blood Culture (Wb) - Right Forearm Bacteria Detection (PCR) - Final 12/26/18 20:10 Blood Culture (Wb) - Right Forearm Blood Culture - Preliminary Presumptive Micrococcus spp. Laboratory Results 12/27/18 02:45: Ionized Calcium 4.1 L 12/29/18 10:34: POC Glucose 242 H 12/29/18 16:02: POC Glucose 168 H 12/29/18 21:08: POC Glucose 154 H 12/30/18 04:25: WBC 7.7, RBC 3.46 L, Hgb 9.6 L, Hct 29.1 L, MCV 84.1, MCH 27.7, MCHC 33.0, RDW Std Deviation 56.4 H, RDW Coeff of Kandi 18.4 H, Plt Count 279, MPV 9.1, Immature Gran % (Auto) 2.000 H, Neut % (Auto) 76.8 H, Lymph % (Auto) 11.1 L , [place] % (Auto) 6.7, Eos % (Auto) 3.3, Baso % (Auto) 0.1, Absolute Neuts (auto) 5.9, Absolute Lymphs (auto) 0.85, Nucleated RBC % 0 12/30/18 04:25: Sodium 138, Potassium 3.9, Chloride 99, Carbon Dioxide 29.0, Anion Gap 10, BUN 84 H, Creatinine 2.83 H, Estim Creat Clear Calc 14.84, Est GFR (MDRD) Af Amer 21 L, Est GFR (MDRD) Non-Af 18 L, BUN/Creatinine Ratio 29.7 H, Glucose 129 H, Calcium 6.3 L* 12/30/18 06:30: POC Glucose 144 H Current Medications Acetaminophen (Tylenol) 650 mg PO Q6H PRN PRN PRN Reason: Mild pain 1-3/Temp > 100.7 F Last Admin: 12/30/18 07:54 Dose: 650 mg Documented by: [facility]) [facility] Last Admin: 12/30/18 07:55 Dose: 200 mg Documented by: Ascorbic Acid (Vitamin C) 500 mg PO DAILY@0800 [facility] Last Admin: 12/30/18 07:55 Dose: 500 mg Documented by: Dextrose (D50w Syringe) 0 gm IV X1 PRN; Protocol PRN Reason: Hypoglycemia Gabapentin (Neurontin) 100 mg PO TID [facility] Last Admin: 12/30/18 05:10 Dose: 100 mg Documented by: Glucagon () 1 mg IM .X1 PRN PRN Reason: Hypoglycemia Sodium Chloride () 250 mls @ 15 mls/hr IV .[id number] PRN PRN Reason: SALINE FLUSH Last Infusion: 12/30/18 03:37 Dose: 0 mls/hr Documented by: Linezolid (Zyvox 600mg) 600 mg in 300 mls @ 200 mls/hr IV Q12 [facility] Last Admin: 12/30/18 10:15 Dose: 200 mls/hr Documented by: Meropenem 1 gm/ Sodium (Chloride) 120 mls @ 33 mls/hr IV Q12 [facility] Last Infusion: 12/30/18 02:21 Dose: Infused Documented by: Sodium Chloride () 1,000 mls @ 75 mls/hr IV .[id number] [facility] Last Admin: 12/30/18 05:10 Dose: 75 mls/hr Documented by: Insulin Human Lispro (Humalog Kwikpen (Bkc)) 0 unit SC ACHS [facility]; Protocol Last Admin: 12/30/18 06:33 Dose: Not Given Documented by: Lactobacillus Acidophilus (Acidophilus) 1 tablet PO DAILY [facility] Last Admin: 12/30/18 10:14 Dose: 1 tablet Documented by: Latanoprost (Xalatan Opthalmic) 1 drop EACH EYE QHS [facility] Last Admin: 12/29/18 21:14 Dose: 1 drop Documented by: Multivitamins (Multivitamin) [facility] Last Admin: 12/30/18 07:55 Dose: 1 tablet Documented by: Nutritional Formula (Sigifredo - [place] Flavor) 1 packet PO BIDCM [facility] Last Admin: 12/30/18 07:54 Dose: Not Given Documented by: Nutritional Formula (Lactose Free) (Glucerna Shake) 120 ml PO 4X/DAY [facility] Last Admin: 12/30/18 10:15 Dose: 120 ml Documented by: Pantoprazole Sodium (Protonix) 40 mg PO DAILY [facility] Last Admin: 12/30/18 10:14 Dose: 40 mg Documented by: Polyethylene Glycol (Miralax) 34 gm PO X1 PRN PRN Reason: Bowel Movement Polyethylene Glycol (Miralax) 17 gm PO DAILY [facility] Last Admin: 12/30/18 10:15 Dose: 17 gm Documented by: Sodium Chloride () 10 - 40 ml IV UD PRN PRN Reason: SALINE FLUSH Last Admin: 12/30/18 05:10 Dose: 20 ml Documented by: Sodium Hypochlorite (Dakins Solution 0.25% (1/2 Strength)) 1 applic TOPICAL DAILY [facility]; Protocol Last Admin: 12/30/18 10:14 Dose: 1 applicatio Documented by: Timolol Maleate (Timoptic) 1 drop EACH EYE BID [facility] Last Admin: 12/29/18 21:13 Dose: 1 drop Documented by: Tolterodine Tartrate (Detrol La) 2 mg PO DAILY [facility] Last Admin: 12/30/18 10:14 Dose: 2 mg Documented by: Medical Necessity - Tobacco Use Smoking Status: Never smoker Assessment/Plan All Active Problems (Last Reviewed 12/27/18 @ 00:34 by Jaison Lopez MD) Acute kidney failure (Acute) Septic shock (Acute) Severe sepsis (Acute) Hyperkalemia (Acute) Acute hyperkalemia (Acute) Acute kidney failure (Acute) Metabolic acidemia (Acute) Anemia (Acute) Severe sepsis (Acute) Complicated urinary tract infection (Acute) 1. Septic shock due to infected decubitus ulcers and acute complicated UTI * resolved. * wound cultured Acinetobacter baumannii, Klebsiella, MRSA and Vancomycin resistant E fecalis. * blood cultured presumptive Micrococcus sp (1 out of 2). * urine cultured Providencia stuartii and Enterobacter cloacae * ID on board; continue iV meropenem and linezolid * wound care on board * * 2. HIMANSHU: * Cr is down to 2.83 today, from 4.2 on admission. * nephrology on board * KIdney and bladder USG were unremarkable * 3. Hyperkalemia: * resolved * 4. 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 Extremely deep bilateral decubitus ulcers extending to both ischial tuberosities * wound care on board * 5. ANion gap metabolic acidosis: * likely due to uremia from HIMANSHU. * resolved 6. Acute on chronic iron deficiency anemia: * s/p transfusion of 1 unit of PRBCs * Hb today is 9.6 * 7. Lactic acidosis; resolved. 8.Diabetes mellitus: Metformin and tradjenta on hold. ISS. Accuchecks ACHS 9. Severe protein calorie malnutrition. Albumin is 1.6. Nutrition on board 10. Hypocalcemia: * Calcium is 6.63 today. * Receving IV calcium gluconate to correct. Corrected for albumin, calcium is WNL, however, ionised calcium was low at 4.1. * will check Mg 11. Hyponatremia:resolved. * DVT prophylaxis: SCDs. Code status: still DNRCCA. Family to meet with Hospice team tomorrow Code Visit Inpatient E&M: 76403 Subs Hosp L2
[2018-12-30] MEDS: Timolol 0.5% 5ML OPTH.BTL 1 DRP EACH EYE ×2 (10:42→21:42)
[2018-12-30] MEDS: Insulin Lispro 100 UNIT/ML INSULN.PEN SC ×2 (11:37→21:41)
[2018-12-30 11:51] LABS: Bedside Glucose 191 mg/dL (70-110)
--- NOTE | 2018-12-30 12:09 | PN.RENAL_ITS ---
Patient Problems: Active and Suspected Problems (Last Reviewed 12/27/18 @ 00:34 by Jaison Lopez MD) Acute kidney failure (Acute) Severe sepsis (Acute) Subjective: No nausea No vomiting Breathing is stable - Physical Exam General: Alert, Cooperative HEENT: Atraumatic Oral: Moist Mucosa Neck: Supple, No JVD Lungs: Clear to auscultation, Normal air movement, No rhonchi Cardiovascular: Regular rate, Regular Rhythm, Normal S1 Abdomen: Bowel Sounds Present, Soft, Non Tender Extremities: No clubbing, No cyanosis, No edema Skin: No rashes Lymphatic: No Cervical, Supraclavicular, or Inguinal Adenopathy Psych/Mental Status: Appropriate Vital Signs Temp Pulse Resp BP Pulse Ox 97.7 F L 103 H 16 112/60 97 12/30/18 04:45 12/30/18 07:28 12/30/18 04:45 12/30/18 04:45 12/30/18 04:45 Oxygen Flow Rate (L/min) 4 Oxygen Delivery Method Room Air Weight: 77.7 kg Body Mass Index (BMI) 27.5 Finger Stick Blood Glucose 154 Intake and Output for Last 24 Hours 12/28/18 12/29/18 12/30/18 23:59 23:59 23:59 Intake Total 5577.29 / 5577.29 3323.52 / 3323.52 1065.25 / 1065.25 Output Total 1999 / 0 4250 / 4250 1675 / 1675 Balance 3577.29 / 2877.29 -926.48 / -926.48 -609.75 / -609.75 Microbiology Past 72 Hours 12/27/18 11:05 Gram Stain - Final Wound Drainage - Aerobic & Anaerobic Swabs Wound Culture - Final Acinetobacter baumannii Klebsiella pneumoniae sp pneum Meth. resistant Staph. aureus Vancomycin Resist. E. faecalis 12/26/18 21:20 Blood Culture - Preliminary Blood Culture (Wb) - Arm Left No growth in 48 hours. 12/26/18 20:20 Urine Culture - Final Urine, Random Providencia stuartii Enterobacter cloacae complex 12/26/18 20:10 Bacteria Detection (PCR) - Final Blood Culture (Wb) - Right Forearm Blood Culture - Preliminary Presumptive Micrococcus spp. Laboratory Tests Past 24 Hrs 12/27/18 12/30/18 12/30/18 02:45 04:25 04:25 WBC 7.7 RBC 3.46 L Hgb 9.6 L Hct 29.1 L MCV 84.1 MCH 27.7 MCHC 33.0 RDW Std Deviation 56.4 H RDW Coeff of Kandi 18.4 H Plt Count 279 MPV 9.1 Immature Gran % (Auto) 2.000 H Neut % (Auto) 76.8 H Lymph % (Auto) 11.1 L [place] % (Auto) 6.7 Eos % (Auto) 3.3 Baso % (Auto) 0.1 Absolute Neuts (auto) 5.9 Absolute Lymphs (auto) 0.85 Nucleated RBC % 0 Sodium 138 Potassium 3.9 Chloride 99 Carbon Dioxide 29.0 Anion Gap 10 BUN 84 H Creatinine 2.83 H Estim Creat Clear Calc 14.84 Est GFR (MDRD) Af Amer 21 L Est GFR (MDRD) Non-Af 18 L BUN/Creatinine Ratio 29.7 H Glucose 129 H Calcium 6.3 L* Ionized Calcium 4.1 L POC Glucose 12/30/18 12/30/18 12/29/18 11:33 06:30 21:08 POC Glucose 191 H 144 H 154 H 12/29/18 16:02 POC Glucose 168 H Medical Necessity - Tobacco Use Smoking Status: Never smoker Assessment/Plan All Active Problems (Last Reviewed 12/27/18 @ 00:34 by Jaison Lopez MD) Acute kidney failure (Acute) Septic shock (Acute) Severe sepsis (Acute) Hyperkalemia (Acute) Acute hyperkalemia (Acute) Acute kidney failure (Acute) Metabolic acidemia (Acute) Anemia (Acute) Severe sepsis (Acute) Complicated urinary tract infection (Acute) 1-Acute kidney injury and chronic kidney disease. Patient had acute kidney injury in July 2018 due to sepsis induced ATN. Kidney function then improved and creatinine was 1.1 mg/dL in August 14. HIMANSHU this time likely ATN from septic shock. FeNa very high at 19% . Suprapubic catheter was changed at presentation Cr peaked at 4.2 mg/dL at presentation. Cr is improving. Cr is 2/8 mg/dL today. BUN is trending down UOP is excellent . Acidosis resolved. hyperkalemia resolved. No need for [employer]AWB[employer] BREAKER Check renal function in am 2-hyperkalemia from acidosis and acute kidney injury. Creatinine peaked at 6.7 and normalized with medical treatment. 3-high anion gap metabolic acidosis from uremia and lactic acidosis. 4-septic shock from UTI/OM of sacral bone.resolved. Off pressors Antibiotics as per ID. Please dose antibiotics for the current creatinine clearance. Thank you for allowing me to participate in Ms. Kasper's care. Please call if any question or concern at [phone]. Umang Joy MD
--- NOTE | 2018-12-30 12:53 | PCM.PN.PUL ---
Patient Problems: Active and Suspected Problems (Last Reviewed 12/27/18 @ 00:34 by Jaison Lopez MD) Acute kidney failure (Acute) Severe sepsis (Acute) Subjective: The patient was seen and examined at the bedside this morning. Events from the last 24 hours have been reviewed. The patient is currently afebrile, hemodynamically stable and maintaining appropriate oxygen saturations on room air. Hemoglobin is stable at 9.6 g/dL. Creatinine continues to improve. Objective: The patient's most recent lab work, culture data and imaging studies have all been personally reviewed. Surface echocardiogram from June 2018 revealed normal LV size and function with an ejection fraction of 60% and stage I diastolic dysfunction. Pulmonary artery systolic pressure was estimated to be 42 mmHg. Renal ultrasound revealed no acute abnormality and no evidence of hydronephrosis. CT pelvis completed on December 27 revealed marked progression of the sacral decubitus since the patient's prior imaging study along with osteolytic destruction of the coccyx and S5 segment consistent with osteomyelitis. - Physical Exam General: Alert, Cooperative HEENT: Atraumatic, Normocephalic Oral: No Gingival or Mucosal Lesions/ Ulcerations Neck: Supple, No Nodes, Trachea Midline Lungs: No rhonchi, No wheeze, No rales Cardiovascular: Normal S1, Normal S2, No murmurs, Tachycardic Abdomen: Bowel Sounds Present, Soft, Non Tender, - - +Ostomy Extremities: No clubbing, No cyanosis, No edema Skin: - - No significant interval changes. Musculoskeletal: No Tenderness to Palpation of Joints or Extremities Lymphatic: No Cervical, Supraclavicular, or Inguinal Adenopathy Neurological: Neuro grossly intact Psych/Mental Status: Anxious Vital Signs Temp Pulse Resp BP Pulse Ox 97.7 F L 103 H 16 112/60 97 12/30/18 04:45 12/30/18 07:28 12/30/18 04:45 12/30/18 04:45 12/30/18 04:45 Oxygen Flow Rate (L/min) 4 Oxygen Delivery Method Room Air Weight: 171 lb 4.787 oz Body Mass Index (BMI) 27.5 Finger Stick Blood Glucose 154 Intake and Output for Last 24 Hours 12/28/18 12/29/18 12/30/18 23:59 23:59 23:59 Intake Total 5577.29 / 5577.29 3323.52 / 3323.52 1365.25 / 1365.25 Output Total 1999 4250 / 4249 1675 / 1675 Balance 3577.29 / 2877.29 -926.48 / -926.48 -309.75 / -309.75 Microbiology Past 72 Hours 12/27/18 11:05 Gram Stain - Final Wound Drainage - Aerobic & Anaerobic Swabs Wound Culture - Final Acinetobacter baumannii Klebsiella pneumoniae sp pneum Meth. resistant Staph. aureus Vancomycin Resist. E. faecalis 12/26/18 21:20 Blood Culture - Preliminary Blood Culture (Wb) - Arm Left No growth in 48 hours. 12/26/18 20:20 Urine Culture - Final Urine, Random Providencia stuartii Enterobacter cloacae complex 12/26/18 20:10 Bacteria Detection (PCR) - Final Blood Culture (Wb) - Right Forearm Blood Culture - Preliminary Presumptive Micrococcus spp. Laboratory Tests Past 24 Hrs 12/30/18 12/30/18 04:25 04:25 WBC 7.7 RBC 3.46 L Hgb 9.6 L Hct 29.1 L MCV 84.1 MCH 27.7 MCHC 33.0 RDW Std Deviation 56.4 H RDW Coeff of Kandi 18.4 H Plt Count 279 MPV 9.1 Immature Gran % (Auto) 2.000 H Neut % (Auto) 76.8 H Lymph % (Auto) 11.1 L [place] % (Auto) 6.7 Eos % (Auto) 3.3 Baso % (Auto) 0.1 Absolute Neuts (auto) 5.9 Absolute Lymphs (auto) 0.85 Nucleated RBC % 0 Sodium 138 Potassium 3.9 Chloride 99 Carbon Dioxide 29.0 Anion Gap 10 BUN 84 H Creatinine 2.83 H Estim Creat Clear Calc 14.84 Est GFR (MDRD) Af Amer 21 L Est GFR (MDRD) Non-Af 18 L BUN/Creatinine Ratio 29.7 H Glucose 129 H Calcium 6.3 L* POC Glucose 12/30/18 12/30/18 12/29/18 11:33 06:30 21:08 POC Glucose 191 H 144 H 154 H 12/29/18 16:02 POC Glucose 168 H Medical Necessity - Tobacco Use Smoking Status: Never smoker Assessment/Plan All Active Problems (Last Reviewed 12/27/18 @ 00:34 by Jaison Lopez MD) Acute kidney failure (Acute) Septic shock (Acute) Severe sepsis (Acute) Hyperkalemia (Acute) Acute hyperkalemia (Acute) Acute kidney failure (Acute) Metabolic acidemia (Acute) Anemia (Acute) Severe sepsis (Acute) Complicated urinary tract infection (Acute) RECOMMENDATIONS: 1. Continue antibiotics per infectious diseases recommendations. 2. Continue physical therapy and nutritional support. 3. Plans for hospice care discussion tomorrow with family. 4. Monitor blood counts daily. Transfuse if hemoglobin drops below 7 g/dL. 5. Will sign off from a critical care perspective. IMPRESSIONS: 1. Septic shock Resolved. Clinical concern for underlying infected decubitus ulcer versus urinary tract source of infection. The patient has been successfully weaned from vasopressor support. However, CT pelvis did indicate worsening of the patient's decubitus ulcerations with underlying bony destruction. She will remain on broad-spectrum antimicrobial therapy, pending finalized culture data. Infectious diseases is following. Continue current supportive measures pending family meeting with hospice care services. 2. Acute kidney injury/hyperkalemia Improving. Continue supplemental IV fluids per nephrology recommendations. Continue to monitor urine output. No current indication for renal replacement therapy. 3. Normocytic anemia The patient has chronic anemia with prior upper and lower endoscopies completed in July 2018 noted to be normal. Given that the patient's hemoglobin was noted to be less than 7 g/dL during her hospitalization, she was transfused packed red blood cells. Posttransfusion blood counts were improved. There are no occult signs of active blood loss. Recommend continuing to monitor H&H, with plans to transfuse if her hemoglobin drops below 7 g/dL. 4. Heart failure with preserved ejection fraction Recommend judicious use of supplemental IV fluids to prevent volume overloaded state. 5. Chronic decubitus ulcer/malnutrition/diabetes/neuropathy/hypertension Complicates care, management, recovery and prognosis. Nutrition and physical therapy to follow. This note was generated with [employer] dictation software. It may contain incorrect words, spelling, and punctuation that were not noted in checking the note before signing. Code Visit Inpatient E&M: 82604 Subs Hosp L2
--- NOTE | 2018-12-30 13:16 | NURSING ---
Removed colostomy appliance. there was a small amount of unformed malone stool noted in the appliance. peristomal skin is intact. stoma measures approx 1 1/4 and is well budded. stoma is pink. cleansed peristomal skin with warm water. pat dry. applied a new 2 piece flat appliance with a small amount of stoma paste. pt tolerated well. repositioned patient for comfort. no further needs at this time.
--- NOTE | 2018-12-30 15:16 | CASEMGMT ---
ALEX faxed updates to [facility] and also let them know patient will be [facility] tomorrow at 10am. Ofelia GARCIA MSW
[2018-12-30 17:06] LABS: Bedside Glucose 140 mg/dL (70-110)
[2018-12-30 17:29] LABS: Magnesium 0.9 mg/dL (1.6-2.6)
[2018-12-30] MEDS: Magnesium Sulfate 4gm/100mL 4 GM/100 ML IV.SOLN. IV (18:29)
[2018-12-30] MEDS: Latanoprost 0.005% 1 Bottle 1 DRP EACH EYE (21:43)
[2018-12-30 22:31] LABS: Bedside Glucose 159 mg/dL (70-110)
--- NOTE | 2018-12-31 02:21 | NURSING ---
Patient called this RN and FINANCIAL SERVICE REPRESENTATIVE's many times throughout evening. The patient states her mouth is dry. Patient was offered water each time. Patient falls asleep quickly with mouth open and snoring.
[2018-12-31 03:00] VITALS: PULSE 103
[2018-12-31 04:00] VITALS: BP 128/71; PULSE 103; RESP 18; TEMP 36.7; O2SAT 100
[2018-12-31] MEDS: 0.9% NaCl Peripheral Flush Adult/Peds IV ×2 (04:21→08:34)
[2018-12-31 04:35] LABS: Absolute Lymphocyte Count 0.93 X10^3/uL (0.83-4.51); Absolute Neutrophil Count 6.8 X10^3/uL (2.0-7.7); Basophil# 0.03 X10^3/uL; Basophil% 0.3 % (0-1); Eosinophil# 0.33 X10^3/uL; Eosinophils% 3.8 % (0-5); Hematocrit 30.6 % (37-47); Lymphocyte # 0.93 X10^3/ul (4.0); Lymphocyte % 10.7 % (19-41); Mean Corp Hgb Conc 32.7 g/dL (32-36); Mean Corpuscular Volume 85.7 fL (81-99); Mean Platelet Vol. 8.6 fl (6.2-12.0); Monocyte# 0.41 X10^3/uL; Monocyte% 4.7 % (0-10); NRBC Flagged by Analyzer 0 % (0-5); Neutrophil # 6.82 X10^3/uL (2.7-7.7); Neutrophil % 78.7 % (47-70); Platelet Count 237 K/mm3 (150-450); RBC Distribution Width CV 18.6 % (11.6-14.6); RBC Distribution Width SD 57.8 fl (35.1-43.9); Red Blood Count 3.57 M/mm3 (4.2-5.4); White Blood Count 8.7 K/mm3 (4.4-11.0)
[2018-12-31 04:47] LABS: Anion Gap 10 (5-15); BUN 69 mg/dL (7-18); BUN/Creat Ratio 31.2 RATIO (10-20); Calcium,Total 6.7 mg/dL (8.5-10.1); Chloride 102 mmol/L (98-107); Creatinine, Serum 2.21 mg/dL (0.55-1.02); EST Glomerular Filtration Rate 23 mL/min (>60); Est Glom Filt Rate - Afr Amer 28 mL/min (>60); Glucose 130 mg/dL (74-106); Potassium 3.7 mmol/L (3.5-5.1); Sodium Level 140 mmol/L (136-145)
[2018-12-31] MEDS: Acetaminophen 325 MG Tablet 650 MG PO (06:30)
[2018-12-31] MEDS: Gabapentin 100 MG Capsule PO (06:30)
[2018-12-31 06:56] LABS: Bedside Glucose 136 mg/dL (70-110)
[2018-12-31 07:06] VITALS: PULSE 108
[2018-12-31 08:02] LABS: Magnesium 1.9 mg/dL (1.6-2.6)
[2018-12-31] MEDS: Morphine 2 MG/ML Syringe 1 MG IV (08:34)
[2018-12-31] MEDS: Linezolid 600 MG 600 MG/300 ML BAG 300 MG IV (08:42)
[2018-12-31] MEDS: Allopurinol 100 MG Tablet 200 MG PO (08:50)
[2018-12-31] MEDS: Pantoprazole Sodium 40 MG Tablet PO (08:50)
[2018-12-31] MEDS: Multivitamins,Therapeutic Tablet 1 TABLET PO (08:50)
[2018-12-31] MEDS: Ascorbic Acid 500 MG Tablet PO (08:50)
[2018-12-31] MEDS: Tolterodine Tartrate 2 MG CAP.SA PO (08:50)
[2018-12-31] MEDS: Polyethylene Glycol 3350 17 GM PACKET PO (08:51)
[2018-12-31] MEDS: Timolol 0.5% 5ML OPTH.BTL 1 DRP EACH EYE (08:51)
[2018-12-31] MEDS: DAKIN'S SOL HALF STRENGTH (=0.25%) 1 APPLIC TOPICAL (08:52)
--- NOTE | 2018-12-31 09:52 | PN_ITS ---
Patient Problems: Active and Suspected Problems (Last Reviewed 12/27/18 @ 00:34 by Jaison Lopez MD) Acute kidney failure (Acute) Severe sepsis (Acute) Subjective: Patient seen and examined. She complains of sore throat and pain in the right side of her neck which is chronic and has been going on for some time. She states sometimes she thinks she may be choking while swallowing. Review of systems otherwise negative. Patient and family are due to meet with hospice today. Vitals/I&O's: Vital Signs Temp Pulse Resp BP Pulse Ox 98.1 F 108 H 18 128/71 H 100 12/31/18 04:00 12/31/18 07:06 12/31/18 04:00 12/31/18 04:00 12/31/18 04:00 Oxygen Flow Rate (L/min) 4 Oxygen Delivery Method Room Air Weight: 169 lb 8.568 oz Body Mass Index (BMI) 27.5 Finger Stick Blood Glucose 154 Intake and Output for Last 24 Hours 12/29/18 12/30/18 12/31/18 23:59 23:59 23:59 Intake Total 3323.52 / 3323.52 3131.85 / 3131.85 502.4 / 502.4 Output Total 4250 / 4250 2900 / 2900 1400 / 1400 Balance -926.48 / -926.48 231.85 / 231.85 -897.6 / -897.6 General: Alert, Oriented x3, Cooperative, Lethargic, uncomfortable Oral: Dry Mucosa Neck: Supple, No JVD, Negative Carotid Bruits Lungs: Clear to auscultation, Normal air movement, No rhonchi, No wheeze, No rales Cardiovascular: Regular Rhythm, Normal S1, Normal S2, No murmurs, Tachycardic Abdomen: Bowel Sounds Present, Soft, Non Tender, Non-Distended, No Hepato- splenomegaly, - - colostomy bag Extremities: No clubbing, No cyanosis, No edema, Capillary Refill Less than 3 Seconds Skin: No rashes, No breakdown; suprapubic catheter in place Musculoskeletal: No Tenderness to Palpation of Joints or Extremities; very deep stage 4 sacral decubitus ulcers, with exposed bone;stage 4 decubitus ulcers on both buttocks Lymphatic: No Cervical, Supraclavicular, or Inguinal Adenopathy Neurological: Cranial nerves II-XII grossly intact, Neuro grossly intact, Motor Exam 5/5 strength throughout Psych/Mental Status: anxious, Alert and oriented to time, place, person, mood and affect Microbiology Past 72 Hours 12/26/18 20:10 Blood Culture (Wb) - Right Forearm Bacteria Detection (PCR) - Final 12/26/18 20:10 Blood Culture (Wb) - Right Forearm Blood Culture - Final Presumptive Micrococcus spp. 12/27/18 11:05 Wound Drainage - Aerobic & Anaerobic Swabs Gram Stain - Final 12/27/18 11:05 Wound Drainage - Aerobic & Anaerobic Swabs Wound Culture - Final Acinetobacter baumannii Klebsiella pneumoniae sp pneum Meth. resistant Staph. aureus Vancomycin Resist. E. faecalis 12/27/18 11:05 Wound Drainage - Aerobic & Anaerobic Swabs Anaerobic Culture - Preliminary Checking for anaerobes, further studies to follow. 12/26/18 21:20 Blood Culture (Wb) - Arm Left Blood Culture - Preliminary No growth in 48 hours. 12/26/18 20:20 Urine, Random Urine Culture - Final Providencia stuartii Enterobacter cloacae complex Laboratory Results 12/30/18 04:25: Magnesium 0.9 L* 12/30/18 11:33: POC Glucose 191 H 12/30/18 16:57: POC Glucose 140 H 12/30/18 21:37: POC Glucose 159 H 12/31/18 04:20: WBC 8.7, RBC 3.57 L, Hgb 10.0 L, Hct 30.6 L, MCV 85.7, MCH 28.0, MCHC 32.7, RDW Std Deviation 57.8 H, RDW Coeff of Kandi 18.6 H, Plt Count 237, MPV 8.6, Immature Gran % (Auto) 1.800 H, Neut % (Auto) 78.7 H, Lymph % (Auto) 10.7 L , Bee % (Auto) 4.7, Eos % (Auto) 3.8, Baso % (Auto) 0.3, Absolute Neuts (auto) 6.8, Absolute Lymphs (auto) 0.93, Nucleated RBC % 0 12/31/18 04:20: Sodium 140, Potassium 3.7, Chloride 102, Carbon Dioxide 28.0, Anion Gap 10, BUN 69 H, Creatinine 2.21 H, Estim Creat Clear Calc 19.00, Est GFR (MDRD) Af Amer 28 L, Est GFR (MDRD) Non-Af 23 L, BUN/Creatinine Ratio 31.2 H, Glucose 130 H, Calcium 6.7 L 12/31/18 04:20: Magnesium 1.9 12/31/18 06:29: POC Glucose 136 H Current Medications Acetaminophen (Tylenol) 650 mg PO Q6H PRN PRN PRN Reason: Mild pain 1-3/Temp > 100.7 F Last Admin: 12/31/18 06:30 Dose: 650 mg Documented by: Allopurinol (Zyloprim) 200 mg PO DAILYCM [facility] Last Admin: 12/31/18 08:50 Dose: 200 mg Documented by: Ascorbic Acid (Vitamin C) 500 mg PO DAILY@0800 [facility] Last Admin: 12/31/18 08:50 Dose: 500 mg Documented by: Calamine/Phenol (Calmoseptine Ointment) 1 applic TOPICAL 4X/DAY PRN; Protocol PRN Reason: RASH/TOPICAL IRRITATION Dextrose (D50w Syringe) 0 gm IV X1 PRN; Protocol PRN Reason: Hypoglycemia Gabapentin (Neurontin) 100 mg PO TID [facility] Last Admin: 12/31/18 06:30 Dose: 100 mg Documented by: Glucagon () 1 mg IM .X1 PRN PRN Reason: Hypoglycemia Sodium Chloride () 250 mls @ 15 mls/hr IV .[id number] PRN PRN Reason: SALINE FLUSH Last Infusion: 12/30/18 03:37 Dose: 0 mls/hr Documented by: Linezolid (Zyvox 600mg) 600 mg in 300 mls @ 200 mls/hr IV Q12 [facility] Last Admin: 12/31/18 08:42 Dose: 300 mls/hr Documented by: Meropenem 1 gm/ Sodium (Chloride) 120 mls @ 33 mls/hr IV Q12 [facility] Last Admin: 12/31/18 08:46 Dose: 33 mls/hr Documented by: Insulin Human Lispro (Humalog Kwikpen (Bkc)) 0 unit SC ACHS [facility]; Protocol Last Admin: 12/31/18 06:30 Dose: Not Given Documented by: Lactobacillus Acidophilus (Acidophilus) 1 tablet PO DAILY [facility] Last Admin: 12/31/18 08:50 Dose: 1 tablet Documented by: Latanoprost (Xalatan Opthalmic) 1 drop EACH EYE QHS [facility] Last Admin: 12/30/18 21:43 Dose: 1 drop Documented by: Multivitamins (Multivitamin) 1 tablet PO DAILYCM [facility] Last Admin: 12/31/18 08:50 Dose: 1 tablet Documented by: Nutritional Formula (Sigifredo - [place] Flavor) 1 packet PO BIDCM [facility] Last Admin: 12/31/18 08:51 Dose: Not Given Documented by: Nutritional Formula (Lactose Free) (Glucerna Shake) 120 ml PO 4X/DAY [facility] Last Admin: 12/31/18 08:52 Dose: Not Given Documented by: Pantoprazole Sodium (Protonix) 40 mg PO DAILY [facility] Last Admin: 12/31/18 08:50 Dose: 40 mg Documented by: Polyethylene Glycol (Miralax) 34 gm PO X1 PRN PRN Reason: Bowel Movement Polyethylene Glycol (Miralax) 17 gm PO DAILY [facility] Last Admin: 12/31/18 08:51 Dose: 17 gm Documented by: Sodium Chloride () 10 - 40 ml IV UD PRN PRN Reason: SALINE FLUSH Last Admin: 12/31/18 08:34 Dose: 10 ml Documented by: Sodium Hypochlorite (Dakins Solution 0.25% (1/2 Strength)) 1 applic TOPICAL DAILY [facility]; Protocol Last Admin: 12/31/18 08:52 Dose: 1 applicatio Documented by: Throat Lozenges (Cepacol Sore Throat Lozenge) 2 lozenge MUCOUS MEM Q2H PRN PRN PRN Reason: SORE THROAT Timolol Maleate (Timoptic) 1 drop EACH EYE BID [facility] Last Admin: 12/31/18 08:51 Dose: 1 drop Documented by: Tolterodine Tartrate (Detrol La) 2 mg PO DAILY [facility] Last Admin: 12/31/18 08:50 Dose: 2 mg Documented by: Medical Necessity - Tobacco Use Smoking Status: Never smoker Assessment/Plan All Active Problems (Last Reviewed 12/27/18 @ 00:34 by Jaison Lopez MD) Acute kidney failure (Acute) Septic shock (Acute) Severe sepsis (Acute) Hyperkalemia (Acute) Acute hyperkalemia (Acute) Acute kidney failure (Acute) Metabolic acidemia (Acute) Anemia (Acute) Severe sepsis (Acute) Complicated urinary tract infection (Acute) 1. Septic shock due to infected decubitus ulcers and acute complicated UTI * wound cultured Acinetobacter baumannii, Klebsiella, MRSA and Vancomycin resistant E fecalis. * blood cultured presumptive Micrococcus sp (1 out of 2). * urine cultured Providencia stuartii and Enterobacter cloacae * ID on board; continue iV meropenem and linezolid * wound care on board * * 2. HIMANSHU: * Cr is down to 2.21 today, from 4.2 on admission. * nephrology on board * KIdney and bladder USG were unremarkable * 3. Hypomagnesemia: mg was 0.9 yesterday and was replenished; Mg today is 1.9 4. Dysphagia: * complains of difficulty swallowing, with some pain. * No thrush visualised. * Speech therapy consult. * Cepacol throat lozenges. * 5. Hypocalcemia: * Calcium is 6.7 today * has received calcium gluconate. Will give one more dose of IV calcium gluconate and put on PO calcium carbonate * Mg checked and replenished. * Receving IV calcium gluconate to correct. Corrected for albumin, calcium is WNL, however, ionised calcium was low at 4.1. * will check Mg 6. Hyperkalemia: * resolved * 7. 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 Extremely deep bilateral decubitus ulcers extending to both ischial tuberosities * wound care on board * 8. ANion gap metabolic acidosis: resolved. 9. Acute on chronic iron deficiency anemia: * s/p transfusion of 1 unit of PRBCs * Hb today is 10 * 10.Diabetes mellitus: Metformin and tradjenta on hold. ISS. Accuchecks ACHS 11. Severe protein calorie malnutrition. Nutrition on board DVT prophylaxis: SCDs. Code status: still DNRCCA. Family to meet with Hospice team today. Code Visit Inpatient E&M: 95300 Subs Hosp L2
[2018-12-31 10:00] VITALS: BP 132/72; PULSE 110; RESP 16; TEMP 36.4; O2SAT 96
--- NOTE | 2018-12-31 11:36 | CASEMGMT ---
Addendum entered by Ofelia Davis 12/31/18 12:10: Patient was approved for the Inpatient Hospice Unit. SW called Tracy at [facility] and let her know that patient is going to the inpatient Hospice unit. Plan: [facility] Ofelia BOSE Original Note: Chucho from Hospice is here to see patient. After meeting with patient and family they signed Hospice papers. [facility] is currently evaluating patient for the Hospice Inpatient Unit. Ofelia BOSE
--- NOTE | 2018-12-31 12:20 | NURSING ---
report called to hospice, Camilla HEARD, told to leave central line.
--- NOTE | 2018-12-31 12:25 | PCM.TXEXTCAR ---
- Diet 12/28/18 09:21 Diet: Regular Diet Food consistency:: Soft Liquid Consistency:: Regular/Thin Type of Dietary Supplement:: built up utensils Is pt able to select menu?: No Diet Comments: No concentrated sweets, finger foods, cut up meats don't grind - Routine Orders/Code Status Enema Type: Fleetz Enema Frequency: Daily PRN Suppository Type: Dulcolax 10mg Suppository Frequency: Daily PRN Code Status: DNC-A - Wound(s) buttocks Wound Type: Pressure Injury rt foot Wound Type: Pressure Injury Sacral Wound Type: Pressure Injury Dressing Change: Dakins moistened gauze Left Ischium Wound Type: Pressure Injury Dressing Change: Dakins moistened gauze Right Ischium Wound Type: Pressure Injury Dressing Change: Dakins moistened gauze right lateral foot (at the 5th metatarsal) Wound Type: Pressure Injury Dressing Change: Dry Sterile Dressing - Allergies/Procedures Done in Hospital Allergies/Adverse Reactions: Allergies No Known Allergies Allergy (Verified 08/16/18 13:05) Procedures: None - Type of Care/Length of Stay Estimated LOS: Convalescent Care Less Than 30 days Type of Care Needed: Inpt Hospice Facility Rehab Potential: Poor Prognosis: Poor - Additional Orders/Day of Discharge Day of Discharge: 12/31/18 - Dietary and Speech Recommendations Dietitian Recommendations/Changes: Will provide finger foods at meals to help pt w/ self feeding. Rec liberalize diet to Regular/finger foods d/t variable po intake & continue Sigifredo BID and Glucerna shake on medpass as ordered. PLEASE ASSIST PT WITH SET-UP & FEEDING PRN AT MEALS. - Follow Up Care Primary Care Physician: Phani Mackenzie MD [Primary Care Provider] - Please follow up with your Primary Care Physician in: 1-2 weeks Please Follow Up With: Umang Joy MD When: 1-2 weeks Please Follow Up With: Lavon Joseph MD When: 1-2 weeks
--- NOTE | 2018-12-31 13:15 | PCM.DC.SUM ---
Discharge Date and Diagnosis - Problem List Patient Problems: Active and Suspected Problems (Last Reviewed 12/27/18 @ 00:34 by Jaison Lopez MD) Acute kidney failure (Acute) Severe sepsis (Acute) Date of Admission: 12/26/18 Date of Discharge: 12/31/18 - Primary Discharge Diagnosis Active and Suspected Problems (Last Reviewed 12/27/18 @ 00:34 by Jaison Lopez MD) Acute kidney failure (Acute) Severe sepsis (Acute) hyperkalemia hypomagnesemia hypocalcemia septic shock anion gap metabolic acidosis acute on chronic iron deificiency anemia sacral osteomyelitis - Secondary Discharge Diagnosis Chronic Problems (Last Reviewed 12/27/18 @ 00:34 by Jaison Lopez MD) Diabetic ulcer of right foot with necrosis of muscle (Chronic) lateral aspect at 5th metatarsal Chronic osteomyelitis of left pelvic region (Chronic) Stage IV pressure ulcer of sacral region (Chronic) Right ischial pressure sore, stage 4 (Chronic) Infected decubitus ulcer (Chronic) Open wound of left thigh (Chronic) traumatic skin tear posterior thigh Incompetent urethral closure mechanism (Chronic) Neurogenic bladder (Chronic) Stage II pressure ulcer (Chronic) Chronic suprapubic catheter (Chronic) Diabetes mellitus type 2 in nonobese (Chronic) Hypertension (Chronic) Gout (Chronic) with arthropathy Pressure ulcer of left buttock, stage 3 (Chronic) left lower buttock/upper thigh area Diabetes mellitus (Chronic) Pressure ulcer of right buttock, stage 3 (Chronic) Diabetic neuropathy, type II diabetes mellitus (Chronic) Malnutrition (Chronic) Back pain (Chronic) Arthritis (Chronic) 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 significance to followup Anemia of chronic disease (Chronic) Physical deconditioning (Chronic) Dupuytren's contracture of right hand (Chronic) Spinal stenosis (Chronic) Hyperlipidemia (Chronic) RP (rectal prolapse) (Chronic) Hospital Course and Treatment Imaging Results: Diagnostic Data Renal Ultrasound 12/27/18 02:28 IMPRESSION: No acute abnormality. No hydronephrosis. Electronically Signed: Maynor Solis MD at 15:34 EDT , Service support , Chest X-Ray 12/27/18 05:45 IMPRESSION: Central line is in adequate position. No evidence for acute cardiopulmonary pathology. Electronically Signed: Napoleon Corrigan MD at 6:50 EDT , Service support , Pelvis CT 12/27/18 11:54 IMPRESSION: Marked progression of sacral decubitus since previous study with osteolytic destruction of the coccyx and the S5 segment indicating osteomyelitis. Continued extremely deep bilateral decubitus ulcers extending to both ischial tuberosities. Electronically Signed: Maynor Solis MD at 16:50 EDT , Service support , Consultations 12/27/18 02:28 Consult: Onc/Wound/archeology faculty member Routine Comment: Reason for Consult:: Multipler pressure ulcers and colostomy critical care- Dr Mario Connell Infectious disease- DR Joseph Nephrology- Dr Joy hospice Operations: None Procedures: Central line placement Summary of Care Provided: The patient is a 68 year old F with an extensive past medical history as listed. She was admitted through the ED on 01/05/2019 from her long-term on account of hyperkalemia. In the long-term, labs done showed potassium of 6.7 and she was given Kayexalate and MiraLAX and brought to the ED. On arrival in the ED her potassium was 5.7. However she was also noted to have elevated lactic acid of 3.4. She also assisted lethargic, chills and [place] as well as malaise and anorexia. Her initial blood pressure was in the 80s to 90 systolic. She was admitted and managed for hyperkalemia, acute on chronic kidney injury and septic shock due to UTI. She was started on IV ceftriaxone and hydrated with normal saline per sepsis protocol. Blood pressure medications were held. She was also noted to have an anion gap metabolic acidosis which was thought to be due to uremia and lactic acidosis. Metformin was held. She was admitted to the ICU and critical care was consulted. She has a central line placed. She required initiation of Levophed on account of tenuous hemodynamic status. Her white cell count was elevated and creatinine was also markedly elevated at 3.95 with a BUN of 110. Critical care, nephrology and infectious disease was consulted. Patient was also noted to have extensive decubitus ulcers. Antibiotics were revised to IV meropenem and IV linezolid per ID. Hemoglobin was noted to drop to 6.9 and patient was transfused with 1 unit of packed red blood cell. Creatinine trended down slowly. CT of the pelvis done showed market progression of sacral decubitus ulcers with osteolytic destruction of the coccyx and S5 segment indicating osteomyelitis and extremely deep continuous bilateral decubitus ulcers extending to both ischial tuberosities. Wound care was consulted. Patient stay was complicated by hypomagnesemia and hypocalcemia which improved with correction. Hyperkalemia also resolved. Wound culture grew Acinetobacter, Klebsiella and MRSA as well as vancomycin resistant E faecalis. Urine culture Providencia stuartii and Enterobacter cloaca K. Blood culture initially grew micrococcus species but repeat blood culture was negative. On account of patient's severe debility, patient and family were counseled about her CODE STATUS. Hospice met with patient on 12/31/2018 as well as her family and decision was made to transfer patient to inpatient hospice facility. She is seen and examined. She complained of feeling very weak and debilitated. She also complained of a sore throat and difficulty swallowing. Review of systems otherwise negative. Labs and vitals reviewed. o/e: Vital Signs Height 5 ft 2 in Weight: 169 lb 8.568 oz Weight in Pounds 169.5 lbs Pulse Ox 96 Temperature 97.5 F Pulse Rate [Apical] 106 Pulse Rate 110 Respiratory Rate 16 Blood Pressure [2nd BP] 68/38 Blood Pressure [BP] 120/84 Blood Pressure [Right Arm] 80/40 Blood Pressure 132/72 Blood Pressure Position [2nd Semi-Fowlers BP] Blood Pressure Position [BP] Semi-Fowlers Blood Pressure Position [Right Semi-Fowlers Arm] Blood Pressure Position Semi-Fowlers [] General: Alert, Oriented x3, Cooperative, Lethargic, uncomfortable Oral: Dry Mucosa Neck: Supple, No JVD, Negative Carotid Bruits Lungs: Clear to auscultation, Normal air movement, No rhonchi, No wheeze, No rales Cardiovascular: Regular Rhythm, Normal S1, Normal S2, No murmurs, Tachycardic Abdomen: Bowel Sounds Present, Soft, Non Tender, Non-Distended, No Hepato-splenomegaly, - - colostomy bag Extremities: No clubbing, No cyanosis, No edema, Capillary Refill Less than 3 Seconds Skin: No rashes, No breakdown; suprapubic catheter in place Musculoskeletal: No Tenderness to Palpation of Joints or Extremities; very deep stage 4 sacral decubitus ulcers, with exposed bone;stage 4 decubitus ulcers on both buttocks Lymphatic: No Cervical, Supraclavicular, or Inguinal Adenopathy Neurological: Cranial nerves II-XII grossly intact, Neuro grossly intact, Motor Exam 5/5 strength throughout Psych/Mental Status: anxious, Alert and oriented to time, place, person, mood and affect Patient discharged to inpatient hospice on 12/31/18. Of note, hospice medical facility wanted internal jugular central line catheter left in place for transfer to hospice. Patient Problems: Active and Suspected Problems (Last Reviewed 12/27/18 @ 00:34 by Jaison Lopez MD) Acute kidney failure (Acute) Severe sepsis (Acute) - Physical Exam Vital Signs Temp Pulse Resp BP Pulse Ox 97.5 F L 110 H 16 132/72 H 96 12/31/18 10:00 12/31/18 10:00 12/31/18 10:00 12/31/18 10:00 12/31/18 10:00 Oxygen Flow Rate (L/min) 4 Oxygen Delivery Method Room Air Weight: 169 lb 8.568 oz Body Mass Index (BMI) 27.5 Finger Stick Blood Glucose 154 Intake and Output for Last 24 Hours 12/29/18 12/30/18 12/31/18 23:59 23:59 23:59 Intake Total 3323.52 / 3323.52 3131.85 / 3131.85 922.4 / 922.4 Output Total 4250 / 4250 2900 / 2900 1400 / 1400 Balance -926.48 / -926.48 231.85 / 231.85 -477.6 / -477.6 Microbiology Past 72 Hours 12/26/18 20:10 Bacteria Detection (PCR) - Final Blood Culture (Wb) - Right Forearm Blood Culture - Final Presumptive Micrococcus spp. 12/27/18 11:05 Gram Stain - Final Wound Drainage - Aerobic & Anaerobic Swabs Wound Culture - Final Acinetobacter baumannii Klebsiella pneumoniae sp pneum Meth. resistant Staph. aureus Vancomycin Resist. E. faecalis Anaerobic Culture - Preliminary Checking for anaerobes, further studies to follow. 12/26/18 21:20 Blood Culture - Preliminary Blood Culture (Wb) - Arm Left No growth in 48 hours. 12/26/18 20:20 Urine Culture - Final Urine, Random Providencia stuartii Enterobacter cloacae complex Laboratory Tests Past 24 Hrs 12/30/18 12/31/18 12/31/18 04:25 04:20 04:20 WBC 8.7 RBC 3.57 L Hgb 10.0 L Hct 30.6 L MCV 85.7 MCH 28.0 MCHC 32.7 RDW Std Deviation 57.8 H RDW Coeff of Kandi 18.6 H Plt Count 237 MPV 8.6 Immature Gran % (Auto) 1.800 H Neut % (Auto) 78.7 H Lymph % (Auto) 10.7 L Potter % (Auto) 4.7 Eos % (Auto) 3.8 Baso % (Auto) 0.3 Absolute Neuts (auto) 6.8 Absolute Lymphs (auto) 0.93 Nucleated RBC % 0 Sodium 140 Potassium 3.7 Chloride 102 Carbon Dioxide 28.0 Anion Gap 10 BUN 69 H Creatinine 2.21 H Estim Creat Clear Calc 19.00 Est GFR (MDRD) Af Amer 28 L Est GFR (MDRD) Non-Af 23 L BUN/Creatinine Ratio 31.2 H Glucose 130 H Calcium 6.7 L Magnesium 0.9 L* 12/31/18 04:20 WBC RBC Hgb Hct MCV MCH MCHC RDW Std Deviation RDW Coeff of Kandi Plt Count MPV Immature Gran % (Auto) Neut % (Auto) Lymph % (Auto) Potter % (Auto) Eos % (Auto) Baso % (Auto) Absolute Neuts (auto) Absolute Lymphs (auto) Nucleated RBC % Sodium Potassium Chloride Carbon Dioxide Anion Gap BUN Creatinine Estim Creat Clear Calc Est GFR (MDRD) Af Amer Est GFR (MDRD) Non-Af BUN/Creatinine Ratio Glucose Calcium Magnesium 1.9 POC Glucose 12/31/18 12/30/18 12/30/18 06:29 21:37 16:57 POC Glucose 136 H 159 H 140 H Discharge Diet: Low fat/ Low Cholesterol Home Medications: Medications to take at Discharge Allopurinol [Zyloprim] 200 mg PO DAILY 07/05/14 Multivitamins,Therapeutic [Multivitamin] 1 tab PO DAILY 07/05/14 Timolol Maleate [Timoptic-XE 0.5%] 1 drp EACH EYE DAILY 07/05/14 Ascorbic Acid [Vitamin C] 500 mg PO DAILY@0800 09/09/17 Gabapentin [Neurontin] 200 mg PO TID 06/16/18 Lactobacillus Acidophilus [Acidophilus] 1 cap PO DAILY 06/16/18 Linagliptin [Tradjenta] 5 mg PO DAILY 06/16/18 Polyethylene Glycol 3350 [Miralax] 17 gm PO DAILY 06/16/18 Insulin Lispro [Humalog KwikPen] See Protocol SC ACHS insuln.pen 06/22/18 Citric AC/Gluconolact/Mag Carb [Renacidin Irrigation Solution] 30 ml IR DAILY 07/20/18 Latanoprost 0.005% [Xalatan Opthalmic] 1 drop EACH EYE QHS 07/20/18 Losartan Potassium [Cozaar] 25 mg PO DAILY 08/11/18 Metoprolol Tartrate [Lopressor (beta honey)] 25 mg PO BID 08/11/18 Multivit,Stress Formula/Zinc [Stress Formula with Zinc Tab] 1 tab PO BID 08/11/18 Oxycodone HCl/Acetaminophen [Percocet 5-325 mg Tablet] 1 tab PO Q4H PRN PRN #10 tab 08/14/18 Oxybutynin Chloride [Oxybutynin Chloride ER] 5 mg PO DAILY 12/26/18 Primary Care Physician: Phani Mackenzie MD [Primary Care Provider] - Please follow up with your Primary Care Physician in: 1-2 weeks Please Follow Up With: Umang Joy MD When: 1-2 weeks Please Follow Up With: Lavon Joseph MD When: 1-2 weeks Disposition: Hospice Medical Facility Minutes spent on discharge:: 45 Patient Condition:: Poor Medical Necessity - Tobacco Use Smoking Status: Never smoker Meaningful Use Info Meaningful Use Diagnoses (Choose all that apply): None applicable Code Visit Inpatient E&M: 04879 Disch Hosp
== END 2018-12-31 15:03 | disposition hospice, inpatient (51) | DRG 466 ==
LOC: ED 20:45 → PCU 22:24 → ICU 12-27 02:23 → PCU 12-29 13:21
PROVIDERS: Internal Medicine Critical Care Medicine; Admitting Provider Hospitalist; Emergency Provider Emergency Medicine; Family Provider Family Medicine; PCP Family Medicine; Referring Provider Hospitalist; Visit Provider Student in an Organized Health Care Education/Training Program
DX: T83.510A Infection and inflammatory reaction due to cystostomy catheter, initial encounter (principal); N39.0 Urinary tract infection, site not specified; A41.9 Sepsis, unspecified organism; R65.21 Severe sepsis with septic shock; E87.5 Hyperkalemia; E43 Unspecified severe protein-calorie malnutrition; Z68.27 Body mass index [BMI] 27.0-27.9, adult; E83.51 Hypocalcemia; E87.1 Hypo-osmolality and hyponatremia; E87.2 Acidosis; N31.9 Neuromuscular dysfunction of bladder, unspecified; D50.9 Iron deficiency anemia, unspecified; L89.314 Pressure ulcer of right buttock, stage 4; L89.324 Pressure ulcer of left buttock, stage 4; L89.154 Pressure ulcer of sacral region, stage 4; E83.42 Hypomagnesemia; N17.0 Acute kidney failure with tubular necrosis; M46.28 Osteomyelitis of vertebra, sacral and sacrococcygeal region; E11.69 Type 2 diabetes mellitus with other specified complication; I50.30 Unspecified diastolic (congestive) heart failure; E11.40 Type 2 diabetes mellitus with diabetic neuropathy, unspecified; Z93.3 Colostomy status; Z51.5 Encounter for palliative care; Z66 Do not resuscitate; N18.9 Chronic kidney disease, unspecified; I13.0 Hypertensive heart and chronic kidney disease with heart failure and stage 1 through stage 4 chronic kidney disease, or unspecified chronic kidney disease; E87.6 Hypokalemia; E11.22 Type 2 diabetes mellitus with diabetic chronic kidney disease; Z79.84 Long term (current) use of oral hypoglycemic drugs; L97.513 Non-pressure chronic ulcer of other part of right foot with necrosis of muscle; E11.621 Type 2 diabetes mellitus with foot ulcer; Z93.59 Other cystostomy status; M10.9 Gout, unspecified; B96.1 Klebsiella pneumoniae [K. pneumoniae] as the cause of diseases classified elsewhere; B95.62 Methicillin resistant Staphylococcus aureus infection as the cause of diseases classified elsewhere; B95.2 Enterococcus as the cause of diseases classified elsewhere; B96.89 Other specified bacterial agents as the cause of diseases classified elsewhere; Z16.21 Resistance to vancomycin
CPT/HCPCS: 36415; 51702; 71045; 72192; 76770; 80048; 81001; 82040; 82330; 82570; 82728; 82962; 83540; 83550; 83605; 83735; 83935; 84300; 85025; 85610; 85652; 86140; 86850; 86900; 86901; 86920; 86922; 87040; 87070; 87075; 87077; 87086; 87088; 87149; 87186; 87205; 87640; 92610; 93005; 97162; 97166; 97530; 97535; 99285; J2020; J2185; J7030; J7050; P9016; A4216; C1751; J0610

== ENCOUNTER 2018-12-31 12:32 | Outpatient (RCR) | payer MEDICAID, SELFPAY ==
[2018-12-19 00:42] VITALS: BP 99/54; PULSE 95; RESP 16; TEMP 35.7
[2018-12-26 22:55] VITALS: BMI 27.5
== END 2019-01-17 23:59 ==
LOC: WC 12:32
PROVIDERS: Family Provider Family Medicine; PCP Family Medicine; Referring Provider Family Medicine; Visit Provider Family Medicine
DX: Z09 Encounter for follow-up examination after completed treatment for conditions other than malignant neoplasm (principal)